=== PATIENT | male | born 1960 | race Caucasian/White ===

== ENCOUNTER → 2016-07-13 | Outpatient (CLI) | payer BC ==
--- NOTE | 2016-07-13 14:36 | XR ---
EXAMINATION TYPE: XR chest 2V DATE OF EXAM: 07/13/2016 2:23 PM HISTORY: R07.9 Chest pain. REFERENCE: Previous study dated 07/27/2015. FINDINGS: The heart is mildly prominent. The lungs are clear. Pleural spaces are clear. IMPRESSION: MILD CARDIOMEGALY.
== END | disposition home or self-care (01) ==
LOC: RADXRMAIN 13:55
PROVIDERS: ATTEND Family Medicine
DX: I51.7 Cardiomegaly (principal)
CPT/HCPCS: 71020

== ENCOUNTER → 2017-09-21 | Outpatient (CLI) | payer OTHER ==
[2017-09-21 18:04] LABS: Albumin 4.1 g/dL (3.5-5.0); Bilirubin, Delta 0.4 mg/dL (0.0-0.2); Calcium 9.4 mg/dL (8.4-10.2); Phosphorus 5.9 mg/dL (2.5-4.5); Total Bilirubin 0.4 mg/dL (0.2-1.3); Total Protein 6.3 g/dL (6.3-8.2)
[2017-09-21 18:35] LABS: Prostate Specific Antigen 3.53 ng/mL (0.00-4.00)
[2017-09-22 01:20] LABS: Hepatitis A Antibody IgM Non-Reactive (Non-Reactive); Hepatitis B Core IgM Non-Reactive (Non-Reactive); Hepatitis B Surface AB- Quant 3.5 mIU/mL; Hepatitis C IgG Antibody Non-Reactive (Non-Reactive)
[2017-09-22 03:07] LABS: Hemoglobin A1C 7.4 % (4.0-6.0)
[2017-09-22 04:00] LABS: EBV-VCA (IgG) >8.0 AI
[2017-09-22 13:49] LABS: HIV AB P24 Non-Reactive (Non-Reactive); HIV P24 AG Non-Reactive (Non-Reactive)
[2017-09-22 16:09] LABS: Hepatits C Virus RNA Not detected (Not detected); Hepatits C Virus RNA, Quant <12 IU/mL (<12); LOG HCV IU/mL <1.08 (<1.08)
== END | disposition home or self-care (01) ==
LOC: LABWHC1 16:58
PROVIDERS: ATTEND Nurse Practitioner Family
DX: N18.4 Chronic kidney disease, stage 4 (severe) (principal); R53.83 Other fatigue; B25.9 Cytomegaloviral disease, unspecified; B27.90 Infectious mononucleosis, unspecified without complication; E83.39 Other disorders of phosphorus metabolism; R74.0 Nonspecific elevation of levels of transaminase and lactic acid dehydrogenase [LDH]; E80.7 Disorder of bilirubin metabolism, unspecified; R74.8 Abnormal levels of other serum enzymes; R97.20 Elevated prostate specific antigen [PSA]; Z11.59 Encounter for screening for other viral diseases; Z11.4 Encounter for screening for human immunodeficiency virus [HIV]; Z11.3 Encounter for screening for infections with a predominantly sexual mode of transmission; Z13.1 Encounter for screening for diabetes mellitus; Z13.228 Encounter for screening for other metabolic disorders; Z11.1 Encounter for screening for respiratory tuberculosis; Z01.83 Encounter for blood typing
CPT/HCPCS: 36415; 80053; 80074; 82248; 82977; 83036; 83615; 84100; 84153; 86644; 86663; 86664; 86665; 86704; 86705; 86706; 86780; 86803; 86900; 86901; 87340; 87390; 87522

== ENCOUNTER → 2017-09-24 | Outpatient (CLI) | payer OTHER ==
--- NOTE | 2017-09-24 14:14 | US ---
EXAMINATION TYPE: US kidneys/renal and bladder DATE OF EXAM: 09/24/2017 COMPARISON: NONE CLINICAL HISTORY: N28.1 RENAL CYST. Renal failure on transplant list. EXAM MEASUREMENTS: Right Kidney: 12.5 x 5.5 x 5.5 cm Left Kidney: 11.3 x 6.5 x 4.5 cm Right Kidney: Cystic area seen upper pole measuring 2.1 x 2.0 x 1.9cm Left Kidney: No hydronephrosis or masses seen Bladder: wnl Bilateral Jets seen: Yes Right renal cyst seen upper pole measuring 2.1 x 2.0 x 1.9 cm. IMPRESSION: 1. Simple appearing Right renal cyst
--- NOTE | 2017-09-24 14:40 | XR ---
EXAMINATION TYPE: XR chest 2V DATE OF EXAM: 09/24/2017 COMPARISON: 07/11/2016 INDICATION: Presurgical clearance TECHNIQUE: Frontal and lateral views of the chest are obtained. FINDINGS: The heart size is normal. The pulmonary vasculature is normal. The lungs are clear. IMPRESSION: 1. No acute pulmonary process.
== END | disposition home or self-care (01) ==
LOC: RADUSWWP 10:02
PROVIDERS: ATTEND Surgery
DX: N28.1 Cyst of kidney, acquired (principal); R91.8 Other nonspecific abnormal finding of lung field; Z00.00 Encounter for general adult medical examination without abnormal findings
CPT/HCPCS: 71046; 76770

== ENCOUNTER → 2018-02-19 | Outpatient (CLI) | payer MEDICARE, OTHER ==
--- NOTE | 2018-02-19 21:05 | MR ---
EXAMINATION TYPE: MR brain and iac wo con DATE OF EXAM: 02/19/2018 COMPARISON: None HISTORY: Sensorineural hearing loss, right ear CONTRAST: Performed utilizing 0 mL intravenous Gadavist gadolinium contrast. TECHNIQUE: Multiplanar, multiecho imaging on a 3.0 Genie magnet is performed through the brain. Stud y is performed within 24 hours of arrival to the hospital. The craniovertebral junction is normal. The pituitary is normal. Diffusion-weighted imaging is performed. No abnormal hyperintensity is present to suggest an acute i ntracranial infarct or acute ischemic change. Signal through the brain is unremarkable. Thin section imaging is performed through the internal auditory canals and cerebellar pontine angles . No cerebellar pontine angle masses are evident. The internal auditory canals appear normal withou t expansion or erosion. Postcontrast imaging was performed. No suspicious enhancement is evident within the internal audito ry canals or the included portions of the brain. Ventricles and sulci are appropriate for the patient age. IMPRESSIONS: 1. No suspicious etiology to account for right sensorineural neural hearing loss. 2. No suspicious internal auditory canal masses or cerebellar pontine angle masses. 3. MRI brain appears unremarkable. 4. There are limitations on the examination due to lack of intravenous contrast. Small intracanalicul ar masses may be more difficult to identify
== END ==
LOC: RADMRIMAIN 09:13
PROVIDERS: ATTEND Otolaryngology Otolaryngic Allergy
DX: H90.41 Sensorineural hearing loss, unilateral, right ear, with unrestricted hearing on the contralateral side (principal)
CPT/HCPCS: 70551

== ENCOUNTER → 2018-02-19 | Outpatient (CLI) | payer MEDICARE, OTHER ==
--- NOTE | 2018-02-19 13:49 | XR ---
EXAMINATION TYPE: XR abdomen 1V DATE OF EXAM: 02/19/2018 COMPARISON: None INDICATION: Placement of PD catheter TECHNIQUE: Single view abdomen frontal projection FINDINGS: There is a normal bowel gas pattern. Psoas margins are normal. No organomegaly is present. Peritoneal dialysis catheter is present in the left hemipelvis. IMPRESSION: 1. Peritoneal dialysis catheter left hemipelvis.
== END | disposition home or self-care (01) ==
LOC: RADXRMAIN 09:23
PROVIDERS: ATTEND Internal Medicine
DX: Z49.02 Encounter for fitting and adjustment of peritoneal dialysis catheter (principal)
CPT/HCPCS: 74018

== ENCOUNTER 2018-03-03 10:30 | Inpatient (IN) | payer MEDICARE, OTHER ==
[2018-03-03] MEDS ORDERED: ASPIRIN 325 MG TAB ONE (15:02)
[2018-03-03] MEDS ORDERED: ASPIRIN 325 MG TAB PO STA (15:13)
[2018-03-03] MEDS ORDERED: NITROGLYCERIN SL TABS 0.4 MG TAB SUBLINGUAL PRN (15:13)
[2018-03-03] MEDS ORDERED: ALPRAZolam 0.25 MG TAB PO PRN (15:13)
[2018-03-03] MEDS ORDERED: ATORVASTATIN 80 MG TAB PO STA (15:13)
[2018-03-03] MEDS ORDERED: ALPRAZolam 0.5 MG TAB PO PRN (15:13)
[2018-03-03] MEDS ORDERED: NITROGLYCERIN-D5W PMX 50 MG in DEXTROSE/WATER 1 250ML.BAG IV SCH (15:15)
[2018-03-03] MEDS: SODIUM CHLORIDE 0.9% 1,000 ML in EMPTY BAG 1 BAG IV ONE ×2 (15:24→22:00)
[2018-03-03] MEDS ORDERED: HYDROmorphone 1 MG/ML 1 ML SYRINGE IVP STA (15:35)
[2018-03-03] MEDS ORDERED: hydrALAZINE HCL 20 MG/ML 1 ML VIAL IVP STA (15:35)
[2018-03-03] MEDS ORDERED: HYDROmorphone 1 MG/ML 1 ML SYRINGE ONE ×2 (15:38→19:51)
[2018-03-03] MEDS ORDERED: hydrALAZINE HCL 20 MG/ML 1 ML VIAL ONE (15:38)
[2018-03-03] MEDS ORDERED: HEPARIN SODIUM 1,000 UN/ML (10ML VL) ONE (18:04)
[2018-03-03] MEDS ORDERED: VERAPAMIL 2.5 MG/ML 2 ML AMP ONE (18:04)
[2018-03-03] MEDS ORDERED: LIDOCAINE 1% INJ 10MG/ML (20 ML MDV) ONE (18:04)
[2018-03-03] MEDS ORDERED: MIDAZOLAM 2 MG/2 ML VIAL IVP ONE (18:34)
[2018-03-03] MEDS ORDERED: LIDOCAINE 1% INJ 10MG/ML (20 ML MDV) SQ ONE (18:34)
[2018-03-03] MEDS: NITROGLYCERIN 1000MCG/10ML SYRINGE INTRACORON ONE ×2 (18:52→19:27)
[2018-03-03] MEDS ORDERED: IOPAMIDOL-370 125ML BTL INJ ONE (18:59)
[2018-03-03] MEDS ORDERED: IOPAMIDOL-370 50ML BTL INJ ONE (19:04)
[2018-03-03] MEDS ORDERED: BIVALIRUDIN BOLUS 250 MG/50 ML IV ONE (19:08)
[2018-03-03] MEDS ORDERED: BIVALIRUDIN 250 MG in SODIUM CHLORIDE 0.9% 50 ML IV ONE (19:09)
[2018-03-03] MEDS ORDERED: CLOPIDOGREL 75 MG TAB ONE (19:24)
[2018-03-03] MEDS ORDERED: CLOPIDOGREL 75 MG TAB PO ONE (19:27)
[2018-03-03] MEDS ORDERED: IOPAMIDOL-370 125ML BTL INTRATHECA ONE (19:41)
[2018-03-03] MEDS ORDERED: MAG HYDROX/AL HYDROX/SIMETH 30 ML CUP PO PRN (19:47)
[2018-03-03] MEDS ORDERED: RX INFO: IV CONTRAST WAS GIVEN 1 EACH MISC MISCELLANE PRN (19:47)
[2018-03-03] MEDS ORDERED: ATROPINE SULFATE 0.1 MG/ML 10ML SYRINGE IV PRN (19:47)
[2018-03-03] MEDS ORDERED: ZOLPIDEM 5 MG TAB PO PRN (19:47)
[2018-03-03] MEDS ORDERED: HYDROmorphone 1 MG/ML 1 ML SYRINGE IVP ONE (19:52)
[2018-03-03] MEDS ORDERED: SODIUM CHLORIDE 0.9% 1,000 ML IV SCH ×2 (20:00→22:00)
[2018-03-03 20:17] LABS: Glucose,Whole Blood 258 mg/dL (75-99)
--- NOTE | 2018-03-03 20:31 | CC ---
CARDIAC CATHETERIZATION REPORT DATE OF SERVICE: 03/03/2018 PERFORMING PHYSICIAN: Andry Bowie MD, drupal programmer. PROCEDURES PERFORMED: 1. Selective left coronary angiogram. 2. Non-selective right coronary artery angiogram. 3. Aortic root angiogram. 4. Left heart catheterization. 5. Successful stenting of the first obtuse marginal branch of the circumflex using a 3.5 x 15 mm Xience drug-eluting stent with reduction of stenosis from 99% to 0%. INDICATION: This is a pleasant 57-year-old gentleman with hypertension, dyslipidemia, end-stage renal disease, on peritoneal dialysis, who presented to [facility] with chest discomfort and was diagnosed with acute [id number] myocardial infarction. He was seen by Dr. Penelope Kemp and a heart catheterization was advised. APPROACH: Right common femoral artery. COMPLICATIONS: None. LEVEL OF SEDATION: Moderate. Sedation length of 60 minutes. PROCEDURE DESCRIPTION: After obtaining informed consent, the patient was brought to the cardiac laboratory apparatus glass grinder. The right common femoral artery was cannulated using micropuncture technique. The micropuncture wire passed easily. Then I placed a 6-Liberian sheath in the right common femoral artery. After that I did selective left coronary angiogram using JL4 catheters. Selective right coronary angiogram was attempted using JR4, Toni Guerra, and Amplatzer I, and I was unable to engage the right coronary artery. Then I did aortic root angiogram and I noticed that the RCA was occluded from the ostium and filled by collaterals from the left coronary system. After that I intervened on the RCA and the left circumflex. Please see separate paragraph for that. SELECTIVE CORONARY ANGIOGRAM: 1. The right coronary artery is chronically occluded by the ostium and filled by collaterals from the left coronary system. 2. The left main is short and almost non . 3. The left circumflex is a large-caliber vessel. It is a dominant vessel. The proximal circumflex is normal and gives rise to a large first OM branch which appeared to have a lesion in the proximal portion in the range of 99%. The mid circumflex and distal circumflex are angiographically normal. 4. LAD. The proximal LAD has a lesion that appeared to be in the range of 50%. This is by the bifurcation of the first diagonal branch, which appeared to have an intermediate lesion in the range of 60% to 70%. The mid LAD has another lesion in the range of 50%. LAD distally appeared to have another lesion in the range of 50% as well. HEMODYNAMICS: The left ventricular end-diastolic pressure was 20 mmHg without significant gradient across the aortic valve. AORTIC ROOT ANGIOGRAM: The aortic root angiogram was performed in the MALLOY projection and using a power injection. The aortic root appeared to be angiographically normal. The RCA seems to be occluded by the ostium and filled by collaterals from the left coronary system. PERCUTANEOUS CORONARY INTERVENTION OF THE LEFT CIRCUMFLEX: Anticoagulation was initiated using Angiomax. Subsequently I took a JL4 with a short tip. The left circumflex was engaged. A Whisper wire was used to wire the left circumflex and I used a run-through wire for anchoring. After that I did balloon angioplasty using 3.0 x 12 mm balloon before I deployed a 3.5 x 15 mm Xience drug- eluting stent where the stent was positioned under fluoroscopy guidance and deployed under its nominal pressure. The following angiogram showed good angiographic results and the procedure was completed without any complication. CONCLUSION: 1. Chronic total occlusion of the right coronary artery which fills by collaterals from the left coronary system. 2. Critical disease involving the first obtuse marginal branch of the left circumflex. 3. Intermediate disease involving the LAD system. 4. Successful stenting of the OM1 using 3.5 x mm Xience drug-eluting stent with good angiographic results. POST-PROCEDURE MANAGEMENT: 1. Medical treatment. 2. Follow up with the patient. MMODL / IJN: [id number] /
[2018-03-03] MEDS ORDERED: DIALYSIS DEX IP SCH (23:30)
[2018-03-04] MEDS ORDERED: DIALYSIS (PERIT 2.5%) 2,500 ML 62.5 G/2,500 ML BAG INTRAPERIT SCH
[2018-03-04] MEDS: METOPROLOL TARTRATE 25 MG TAB PO SCH ×3 (00:24→21:06)
[2018-03-04 00:31] LABS: Glucose,Whole Blood 268 mg/dL (75-99)
[2018-03-04] MEDS: INSULIN ASPART 100 UNIT/ML 1 ML 10 ML VIAL SQ SCH ×5 (00:31→21:16)
[2018-03-04] MEDS: [UNRECOGNIZED DRUG - REMARK] IP SCH ×3 (00:36→12:27)
[2018-03-04] MEDS: INSULIN DETEMIR 100 UNIT/ML 10 ML VIAL SQ SCH ×2 (01:36→21:15)
[2018-03-04 07:20] LABS: Glucose,Whole Blood 165 mg/dL (75-99)
[2018-03-04 11:00] VITALS: BMI 35.5
[2018-03-04 11:04] LABS: Calcium 8.9 mg/dL (8.4-10.2); Potassium 4.2 mmol/L (3.5-5.1)
--- NOTE | 2018-03-04 12:02 | CONS ---
CONSULTATION REASON FOR CONSULT: End-stage renal disease. HISTORY OF PRESENT ILLNESS: The patient is a 57-year-old male who was brought in from [facility] for cardiac catheterization. He presented to the hospital with back pain. He had some chest discomfort and ruled in for non ST elevation OH. The cardiac catheterization was done last night and patient had stenting of his obtuse marginal branch of circumflex. He is currently doing well. He denies any chest pains. The patient has been volume overloaded. He received IV fluids post catheterization for just 4 hours. PAST MEDICAL HISTORY: End-stage renal disease on peritoneal dialysis, hypertension, CKD mineral bone disorder, anemia of chronic disease, gastroesophageal reflux disease, type 2 diabetes, hyperlipidemia. PAST SURGICAL HISTORY: PD catheter placement, PermCath placement and removal for hemodialysis, colonoscopy, right eye vitrectomy, cardiac catheterization, cholecystectomy. MEDICATIONS: Medications at home include PhosLo, Zyloprim, Lasix insulin, Norvasc, multivitamins. ALLERGIES: Allergies include CODEINE, KEFLEX, MORPHINE. SOCIAL HISTORY: Negative for smoking, drug abuse or alcohol abuse. PHYSICAL EXAMINATION: On examination, patient is comfortable, awake, alert, oriented x3. He is not in any acute distress. Blood pressure is 143/73, heart rate 76 per minute. He is afebrile. EXAMINATION OF THE HEART: S1, S2. EXAMINATION OF THE LUNGS: Bilateral breath sounds are heard. Abdomen is soft, nontender. Examination of the lower extremities shows edema 2+ bilaterally. LOGISTICS OPERATIONS MANAGER exam is grossly intact. LABS: Recent labs are not available as patient came in last night. Labs are pending from today. ASSESSMENT: 1. End-stage renal disease, on peritoneal dialysis. We will maintain patient on 2.5% solution alternating with 4.25% solution q.6 hours. We do have the conversion kit to be able to adjust for the different type of dialysis catheter that patient has, which is different from the usual for catheter. 2. Volume overload. We will try to increase UF with peritoneal dialysis and change to 4.25% solution alternating with 2.5% solutions. 3. Status post non ST elevation myocardial infarction, status post cardiac cath and coronary artery stenting, currently doing well. 4. Type 2 diabetes. 5. Hypertension, currently controlled. PLAN: Maintain patient on PD. Continue off of IV fluids. Check phosphorus, CBC, BMP. Thank you for this consultation. We will continue to follow the patient with you during his hospitalization. LUL / BISIN: [id number] /
[2018-03-04] MEDS: ASPIRIN 325 MG TAB PO SCH (12:13)
--- NOTE | 2018-03-04 12:35 | P.HPIM ---
History of Present Illness H&P Date: 03/04/18 Chief Complaint: Non-ST elevation CO. This is a 57-year-old male one of Dr. Mckeon with a previous medical history significant for hypertension and hypertensive cardio vascular disease with left ventricular hypertrophy, history of CAD, chronic diastolic heart failure, end-stage renal disease on peritoneal dialysis after he has failed hemodialysis since September due to uncontrolled hypertension, patient has been recently on peritoneal dialysis and he has been struggling with increased swelling in both lower extremities as he is not ultrafiltrating with the dialysate due to his uncontrolled diabetes, patient presented to the emergency department at [facility] with increased fluid and wait for about 6 kg and increased shortness of breath associated with increased chest pain radiating to the neck down both shoulders he was admitted to intensive care unit after he was found to have a troponin of 3 BNP was elevated at greater than 5000,+3 edema both lower extremities peritoneal dialysis fluid appears to be clear he was started on IV heparin and IV nitroglycerin drip was seen in consultation by cardiology subsequently was transferred to [facility] for left heart catheterization where he was found to have 99% stenosis of the first marginal branch off the LCx and moderate disease of the LAD and underwent successful stenting of the obtuse marginal branch #1 with drug-eluting stent and he was admitted to the ICU and he was seen today in the intensive care unit his pain a lot. He denies any chest pain is less short of breath is less swollen in both lower extremities he has no nausea or vomiting at this point in time he was transferred to telemetry unit. Review of Systems Constitutional: Denies anorexia, Denies chronic headaches, Denies lethargy, Denies malaise, Denies weakness Eyes: denies blurred vision, denies bulging eye, denies decreased vision Ears: deny: decreased hearing Ears, nose, mouth and throat: Denies dysphagia, Denies sore throat, Denies vertigo Cardiovascular: Reports chest pain, Reports decreased exercise tolerance, Reports dyspnea on exertion, Reports shortness of breath, Denies lightheadedness , Denies rapid heart beat, Denies syncope Respiratory: Reports congestion, Reports cough with sputum, Denies home oxygen, Denies snoring, Denies wheezing Gastrointestinal: Reports abdominal pain, Reports bloating, Reports change in bowel habits, Reports nausea, Denies heartburn, Denies melena, Denies vomiting Genitourinary: Denies dysuria Musculoskeletal: Denies myalgias Musculoskeletal: left: foot swelling, bilateral: ankle swelling, absent: ankle pain, ankle stiffness, elbow pain, elbow stiffness, elbow swelling, foot pain, foot stiffness, hand pain, hand stiffness, hand swelling, hip pain, hip stiffness, hip swelling, knee pain, knee stiffness, knee swelling, shoulder pain , shoulder stiffness, shoulder swelling, wrist pain, wrist stiffness, wrist swelling Integumentary: Reports pruritus, Denies rash Neurological: Denies numbness, Denies weakness Psychiatric: Denies anxiety, Denies depression Endocrine: Denies fatigue, Denies weight change Past Medical History Past Medical History: Coronary Artery Disease (CAD), Diabetes Mellitus, Dialysis , Eye Disorder, GERD/Reflux, Hyperlipidemia, Hypertension, Myocardial Infarction (CO), Myocardial Infarction (non Q-wave), Osteoarthritis (OA), Renal Disease, Syncope Additional Past Medical History / Comment(s): NEUROPATHY, per old medcial hx ulcer age 17, sinus problems History of Any Multi-Drug Resistant Organisms: None Reported Past Surgical History: No Surgical Hx Reported, Heart Catheterization With Stent Additional Past Surgical History / Comment(s): RT EYE VITRECTOMY february 2017 S AGO AT [facility], COLONOSCOPY-POLYPS BENIGN, THRYOID NEEDLE ASPIRATION-NEG, LT LEG SX"HAD A cyst REMOVED", tilt table test in past. DEC 2016 LEFT ARM FISTULA , PD catheter placement. 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 DENIES ANY THOUGHTS OF HARMING HIMSELF OR OTHERS,DOES'NT FEEL HOPELESS BUT RATHER HEPLESS. Smoking Status: Former smoker Past Alcohol Use History: None Reported Additional Past Alcohol Use History / Comment(s): STARTED SMOKING AT AGE 12 WORKED UP TO ALMOST A PPD THEN QUIT 20 YEARS AGO Past Drug Use History: None Reported - Past Family History Father Family Medical History: Cancer (Father from brain cancer.), Hyperlipidemia Additional Family Medical History / Comment(s): ? BRAIN CANCER Mother Family Medical History: Diabetes Mellitus, Osteoarthritis (OA) Additional Family Medical History / Comment(s): DJD. MOM IS STILL ALIVE AT AGE 80 Sister(s) Family Medical History: Diabetes Mellitus (Patient has one sister with diabetes. ) Brother(s) Family Medical History: Diabetes Mellitus (One of his brother has diabetes.) Additional Family Medical History / Comment(s): Patient has 4 kids no major medical problems. Medications and Allergies Home Medications Medication Instructions Recorded Confirmed Type Pregabalin [Lyrica] 50 mg PO BID 07/25/15 03/03/18 History Furosemide [Lasix] 80 mg PO BID 03/29/17 03/03/18 History Insulin Glargine [Lantus] 40 units SQ DAILY 03/29/17 03/03/18 History amLODIPine [Norvasc] 5 mg PO BID 03/29/17 03/03/18 History Allopurinol [Zyloprim] 100 mg PO DAILY 03/03/18 03/03/18 History Ascorbic Acid/Multivit-Min 1,000 mg PO DAILY 03/03/18 03/03/18 History [Emergen-C 1,000 mg Packet] Calcium Acetate [Phoslo] 667 mg PO TID-W/MEALS 03/03/18 03/03/18 History Dialysis (Peritonl) Dex 2.5% 2,500 ml TID 03/03/18 03/03/18 History [Delflex with 2.5% Dextrose] Insulin Aspart [NovoLOG See Protocol SQ TID-W/MEALS 03/03/18 03/03/18 History (formulary)] Allergies Allergy/AdvReac Type Severity Reaction Status Date / Time morphine Allergy Confusion Verified 03/03/18 20:20 codeine AdvReac Hallucinati Verified 03/03/18 20:20 ons All antibiotics except Keflex Allergy Unknown Uncoded 04/19/17 11:03 Childhood Physical Exam Vitals: Vital Signs Temp Pulse Pulse Resp BP BP Pulse Ox 03/04/18 07:00 76 13 143/73 03/04/18 06:00 84 20 140/76 03/04/18 05:59 98.8 F 83 16 143/73 96 03/04/18 05:00 98.8 F 80 20 162/95 95 03/04/18 04:00 98.4 F 71 12 156/85 96 03/04/18 03:31 16 01/11/19 03:00 74 12 159/93 97 03/04/18 02:00 85 13 169/89 96 03/04/18 01:00 98.4 F 76 16 136/77 95 03/04/18 00:00 16 136/77 96 03/03/18 23:00 12 144/75 96 03/03/18 22:00 82 21 145/80 154/79 95 03/03/18 21:30 18 158/83 96 03/03/18 21:00 80 14 132/87 136/77 95 03/03/18 20:45 18 132/87 96 03/03/18 20:30 16 133/76 99 03/03/18 20:15 16 135/78 94 L 03/03/18 20:12 81 17 91 L 03/03/18 20:00 98.2 F 16 132/82 95 03/03/18 16:16 125/64 03/03/18 15:46 76 18 155/75 99 03/03/18 15:15 77 18 157/74 99 03/03/18 14:46 78 18 171/77 96 Intake and Output 03/03/18 03/04/18 03/04/18 22:59 06:59 14:59 Intake Total 69.7 300 504 Balance 69.7 300 504 Intake: IV 69.7 Intake, IV Titration 300 Amount Sodium Chloride 0.9% 1, 300 000 ml @ 75 mls/hr IV . [id number] [facility] Rx#:[id number] Oral 504 Other: Weight 103 kg 103 kg 103 kg - Constitutional General appearance: no acute distress, obese - EENT Eyes: anicteric sclerae, EOMI, PERRLA, no ptosis, no scleral icterus, normal appearance ENT: hard of hearing, NA/AT, normal oropharynx, no thrush Ears: bilateral: normal - Neck Neck: no lymphadenopathy, normal ROM, no rigidity, no stridor, no thyromegaly Carotids: bilateral: upstroke normal Thyroid: bilateral: normal size - Respiratory Respiratory: bilateral: diminished, negative: dullness, rales, rhonchi, wheezing , prolonged expiration, prolonged inspiration - Cardiovascular Rhythm: regular Heart sounds: normal: S1, S2 Abnormal Heart Sounds: systolic murmur - Gastrointestinal General gastrointestinal: normal bowel sounds, soft, no splenomegaly, tenderness (PD catheter in place.), no umbilical hernia, no ventral hernia - Integumentary Integumentary: normal, normal turgor - Neurologic Neurologic: CNII-XII intact - Musculoskeletal Musculoskeletal: gait normal, strength equal bilaterally - Psychiatric Psychiatric: A&O x's 3, appropriate affect, intact judgment & insight Results CBC & Chem 7: 03/04/18 04:58 Labs: Abnormal Lab Results - Last 24 Hours (Table) 03/03/18 03/04/18 03/04/18 Range/Units 20:05 00:20 04:58 BUN 86 H (9-20) mg/dL Creatinine 5.16 H (0.66-1.25) mg/dL Glucose 175 H (74-99) mg/dL POC Glucose (mg/dL) 258 H 268 H (75-99) mg/dL 03/04/18 Range/Units 07:09 BUN (9-20) mg/dL Creatinine (0.66-1.25) mg/dL Glucose (74-99) mg/dL POC Glucose (mg/dL) 165 H (75-99) mg/dL Thrombosis Risk Factor Assmnt - DVT/VTE Prophylaxis DVT/VTE Prophylaxis: Mechanical Prophylaxis ordered - Choose All That Apply Each Factor Represents 1 point: Acute CO, Age 41-60 years, Swollen legs (current ) Other Risk Factors: Yes Thrombosis Risk Factor Assessment Total Risk Factor Score: 3 Thrombosis Risk Factor Assessment Level: Moderate Risk Assessment and Plan Assessment: Assessment and plan: 1. Non-ST elevation CO post left heart catheterization with PCI of the office marginal branch. Continue aspirin 325 mg orally once every day, Plavix 75 mg orally once every day, Lopressor 25 mg orally twice every day, patient will need to start Lipitor 80 mg orally once every day. Cardiology is following. 2. Diabetes mellitus type 2. Continue patient on Levemir 40 units at bedtime along with a sliding scale insulin. 3. End-stage renal disease on peritoneal dialysis. Continue with PD exchange. 4. Diabetic polyneuropathy. Continue Lyrica 50 mg orally twice every day. 5. Hypertension and hypertensive cardio vascular disease. Continue Lopressor 25 mg orally twice every day. 6. History of restless leg syndrome. Stable at this time. 7. History of gout. Continue allopurinol 100 mg orally once every day. 8. DVT prophylaxis. Bilateral knee-high RODRIGO hose encourage ambulation. 9. GI prophylaxis. Continue with Protonix 40 mg orally once every day. 10. Patient is full code. 11. Admitted to inpatient. Estimate length of stay 2 midnights.
[2018-03-04 12:36] LABS: Glucose,Whole Blood 138 mg/dL (75-99)
[2018-03-04] MEDS: CALCIUM ACETATE 667 MG CAP PO SCH ×2 (13:01→18:30)
--- NOTE | 2018-03-04 13:02 | PN ---
PROGRESS NOTE Joel is a 57-year-old gentleman who was admitted to hospital with non ST-segment elevation HI. Underwent cardiac catheterization, angioplasty of OM branch. This morning, patient is feeling better. Denies chest pain or difficulty in breathing. Chest exam reveals good air entry bilaterally. Heart exam reveals first and second heart sounds. No gallop. Abdomen is soft. Examination of extremities did not reveal any edema. Right groin is free of bleeding, bruit, hematoma. The patient is currently on aspirin, Plavix, Lopressor. ASSESSMENT: 1. Non ST-segment elevation myocardial infarction, status post catheterization and angioplasty. 2. End-stage renal disease on peritoneal dialysis. PLAN: Patient is doing well. Patient will continue current medications. Hopefully home tomorrow. MMODL / IJN: [id number] /
[2018-03-04] MEDS ORDERED: MD COMMUNICATION TO PHARMACY 1 EACH MISC PO PRN (13:22)
[2018-03-04] MEDS: NITROGLYCERIN SL TABS 0.4 MG TAB SUBLINGUAL PRN ×4 (13:50→15:57)
[2018-03-04] MEDS: FUROSEMIDE 20 MG TAB PO SCH (16:10)
[2018-03-04] MEDS: [UNRECOGNIZED DRUG - OTHER] MISCELLANE SCH (18:20)
[2018-03-04] MEDS: amLODIPine 5 MG TAB PO SCH (21:06)
[2018-03-04] MEDS: PREGABALIN 50 MG CAP PO SCH (21:06)
[2018-03-04] MEDS: CLOPIDOGREL 75 MG TAB PO SCH (21:07)
[2018-03-04 21:18] LABS: Glucose,Whole Blood 295 mg/dL (75-99)
[2018-03-05] MEDS ORDERED: DIALYSIS DEX IP SCH
[2018-03-05] MEDS: [UNRECOGNIZED DRUG - OTHER] MISCELLANE SCH ×2 (01:12→12:36)
[2018-03-05 06:15] LABS: Basophils # (A) 0.1 k/uL (0-0.2); Basophils % (A) 1 %; Eosinophils # (A) 0.6 k/uL (0-0.7); Eosinophils % (A) 6 %; HCT 27.3 % (39.0-53.0); HGB 9.2 gm/dL (13.0-17.5); Lymphocytes % (A) 10 %; MCH 29.7 pg (25.0-35.0); MCHC 33.9 g/dL (31.0-37.0); MCV 87.7 fL (80.0-100.0); Mean Platelet Volume 7.3; Monocytes # (A) 0.6 k/uL (0-1.0); Monocytes % (A) 6 %; Neutrophils # (A) 7.8 k/uL (1.3-7.7); Neutrophils % (A) 76 %; Platelet Count 250 k/uL (150-450); RBC 3.11 m/uL (4.30-5.90); WBC 10.3 k/uL (3.8-10.6)
[2018-03-05 06:32] LABS: Albumin 3.4 g/dL (3.5-5.0); Calcium 8.9 mg/dL (8.4-10.2); Magnesium 2.5 mg/dL (1.6-2.3); Phosphorus 8.9 mg/dL (2.5-4.5); Potassium 3.9 mmol/L (3.5-5.1); Total Bilirubin 0.4 mg/dL (0.2-1.3); Total Protein 6.1 g/dL (6.3-8.2)
[2018-03-05] MEDS: [UNRECOGNIZED DRUG - OTHER] MISCELLANE SCH (06:33)
[2018-03-05 06:49] LABS: Glucose,Whole Blood 143 mg/dL (75-99)
[2018-03-05] MEDS: CALCIUM ACETATE 667 MG CAP PO SCH ×2 (07:13→12:38)
[2018-03-05] MEDS: INSULIN ASPART 100 UNIT/ML 1 ML 10 ML VIAL SQ SCH ×2 (07:14→12:32)
[2018-03-05] MEDS: amLODIPine 5 MG TAB PO SCH (08:33)
[2018-03-05] MEDS: CLOPIDOGREL 75 MG TAB PO SCH (08:33)
[2018-03-05] MEDS: ASPIRIN 325 MG TAB PO SCH (08:33)
[2018-03-05] MEDS: PREGABALIN 50 MG CAP PO SCH (08:34)
[2018-03-05] MEDS: FUROSEMIDE 20 MG TAB PO SCH (08:34)
[2018-03-05] MEDS: METOPROLOL TARTRATE 25 MG TAB PO SCH (08:34)
[2018-03-05] MEDS ORDERED: ALLOPURINOL 100 MG TAB PO SCH (09:00)
--- NOTE | 2018-03-05 10:01 | P.PN ---
Subjective Patient is seen in follow-up for end-stage renal disease. He is maintained on peritoneal dialysis. Patient had an acute myocardial infarction for which he underwent cardiac catheterization with stent placement to the circumflex yesterday. Edema is improving. No issues with peritoneal dialysis. No active chest pain or shortness of breath. Vital signs are stable. General: The patient appeared well nourished and normally developed. HEENT: Head exam is unremarkable. Neck is without jugular venous distension. LUNGS: Lungs are clear to auscultation and percussion. Breath sounds decreased. HEART: Rate and Rhythm are regular. First and second heart sounds normal. No murmurs, rubs or gallops. ABDOMEN: Abdominal exam reveals normal bowel sounds. Non-tender and non- distended. No evidence of peritonitis. EXTREMITITES: 1+ edema. Objective - Vital Signs Vital signs: Vital Signs Temp 97.9 F 03/05/18 08:00 Pulse 75 03/05/18 08:00 Resp 16 03/05/18 08:00 BP 142/71 03/05/18 08:00 Pulse Ox 95 03/05/18 08:00 Intake & Output 03/04/18 03/05/18 03/05/18 18:59 06:59 18:59 Intake Total 1304 480 Output Total 100 Balance 1204 480 Weight 103 kg 100 kg Intake: Oral 1304 480 Output: Urine 100 - Labs CBC & Chem 7: 03/05/18 05:50 03/05/18 05:50 Labs: Abnormal Lab Results - Last 24 Hours (Table) 03/04/18 03/04/18 03/04/18 Range/Units 04:58 12:25 21:07 RBC (4.30-5.90) m/uL Hgb (13.0-17.5) gm/dL Hct (39.0-53.0) % Neutrophils # (1.3-7.7) k/uL Sodium (137-145) mmol/L Chloride (98-107) mmol/L BUN 86 H (9-20) mg/dL Creatinine 5.16 H (0.66-1.25) mg/dL Glucose 175 H (74-99) mg/dL POC Glucose (mg/dL) 138 H 295 H (75-99) mg/dL Phosphorus (2.5-4.5) mg/dL Magnesium (1.6-2.3) mg/dL Alkaline Phosphatase (38-126) U/L Total Protein (6.3-8.2) g/dL Albumin (3.5-5.0) g/dL 03/05/18 03/05/18 03/05/18 Range/Units 05:50 05:50 06:37 RBC 3.11 L (4.30-5.90) m/uL Hgb 9.2 L (13.0-17.5) gm/dL Hct 27.3 L (39.0-53.0) % Neutrophils # 7.8 H (1.3-7.7) k/uL Sodium 135 L (137-145) mmol/L Chloride 96 L (98-107) mmol/L BUN 83 H (9-20) mg/dL Creatinine 7.40 H* (0.66-1.25) mg/dL Glucose 140 H (74-99) mg/dL POC Glucose (mg/dL) 143 H (75-99) mg/dL Phosphorus 8.9 H (2.5-4.5) mg/dL Magnesium 2.5 H (1.6-2.3) mg/dL Alkaline Phosphatase 129 H (38-126) U/L Total Protein 6.1 L (6.3-8.2) g/dL Albumin 3.4 L (3.5-5.0) g/dL Assessment and Plan Plan: Assessment: 1. End-stage renal disease maintained on peritoneal dialysis. 2. Acute OK status post cardiac catheterization with stent to the circumflex in March 04. 3. Volume overload. 4. Insulin-dependent diabetes mellitus. 5. Anemia of chronic kidney disease. 6. Hypertension with chronic kidney disease. Controlled. 7. Chronic kidney disease mineral bone disease maintained on PhosLo. Plan: Continue current PD exchanges alternating 2.5% and 4.25% solution. Advised tight blood sugar control. Stable to be discharged home from nephrology standpoint.
--- NOTE | 2018-03-05 10:14 | P.DS ---
Providers Date of admission: 03/03/18 14:33 Expected date of discharge: 03/05/18 Attending physician: Wayne Maxwell Consults: 03/03/18 19:47 Consult Physician Routine Consulting Provider: [facility] Consult Reason/Comments: Post Interventional patient Do you want consulting provider notified?: Already Contacted 03/04/18 03:42 Consult Physician Urgent Consulting Provider: Janine Nguyen Consult Reason/Comments: CAPD/Fluids Do you want consulting provider notified?: Yes Primary care physician: Ten Mckeon [facility] Course: This is a 57-year-old male one of Dr. Mckeon with a previous medical history significant for hypertension and hypertensive cardio vascular disease with left ventricular hypertrophy, history of CAD, chronic diastolic heart failure, end-stage renal disease on peritoneal dialysis after he has failed hemodialysis since September due to uncontrolled hypertension, patient has been recently on peritoneal dialysis and he has been struggling with increased swelling in both lower extremities as he is not ultrafiltrating with the dialysate due to his uncontrolled diabetes, patient presented to the emergency department at [facility] with increased fluid and wait for about 6 kg and increased shortness of breath associated with increased chest pain radiating to the neck down both shoulders he was admitted to intensive care unit after he was found to have a troponin of 3 BNP was elevated at greater than 5000,+3 edema both lower extremities peritoneal dialysis fluid appears to be clear he was started on IV heparin and IV nitroglycerin drip was seen in consultation by cardiology subsequently was transferred to [facility] for left heart catheterization where he was found to have 99% stenosis of the first marginal branch off the LCx and moderate disease of the LAD and underwent successful stenting of the obtuse marginal branch #1 with drug-eluting stent and he was admitted to the ICU and he was seen today in the intensive care unit his pain a lot. He denies any chest pain is less short of breath is less swollen in both lower extremities he has no nausea or vomiting at this point in time he was transferred to telemetry unit. 03/05: Patient denies any chest pain at this time but states he did have episode of chest pain during the night which was relieved with Xanax. Patient is normally on Ativan and is requesting that his Ativan be switched to Xanax which will be done and patient given a seven-day supply. Otherwise no new complaints. Patient states that his last hemoglobin A1c was quite high maybe at 12. He is to follow-up with Dr. Reno as an outpatient. We will continue same insulins at discharge. The patient has been cleared by cardiology for discharge home. Discharge diagnoses: 1. Non-ST elevation [place] post left heart catheterization with PCI of the obtuse marginal branch. 2. Diabetes mellitus type 2. 3. End-stage renal disease on peritoneal dialysis. 4. Diabetic polyneuropathy. 5. Hypertension and hypertensive cardio vascular disease. 6. History of restless leg syndrome. 7. History of gout, chronic without exacerbation. Discharge plan: Home. Impression and plan of care have been directed as dictated by the signing physician. Katelyn Wesley nurse practitioner acting as scribe for signing physician. Patient Condition at Discharge: Good Plan - Discharge Summary New Discharge Prescriptions: New amLODIPine [Norvasc] 5 mg PO BID #60 tab Aspirin EC [Ecotrin Low Dose] 81 mg PO DAILY #30 tablet. Clopidogrel [Plavix] 75 mg PO DAILY #30 tab Metoprolol Tartrate [Lopressor] 25 mg PO BID #60 tab Nitroglycerin Sl Tabs [Nitrostat] 0.4 mg SUBLINGUAL Q5M PRN #25 tab PRN Reason: Chest Pain ALPRAZolam [Xanax] 0.5 mg PO BID #14 tab Atorvastatin [Lipitor] 80 mg PO HS #30 tab Continue Pregabalin [Lyrica] 50 mg PO BID Furosemide [Lasix] 80 mg PO BID Insulin Glargine [Lantus] 40 units SQ DAILY Calcium Acetate [PhosLo] 667 mg PO TID-W/MEALS Allopurinol [Zyloprim] 100 mg PO DAILY Ascorbic Acid/Multivit-Min [Emergen-C 1,000 mg Packet] 1,000 mg PO DAILY Dialysis (Peritonl) Dex 2.5% [Delflex with 2.5% Dextrose] 2,500 ml TID Insulin Aspart [NovoLOG (formulary)] See Protocol SQ TID-W/MEALS #0 Discontinued amLODIPine [Norvasc] 5 mg PO BID Discharge Medication List Pregabalin [Lyrica] 50 mg PO BID 07/25/15 [History] Furosemide [Lasix] 80 mg PO BID 03/29/17 [History] Insulin Glargine [Lantus] 40 units SQ DAILY 03/29/17 [History] Allopurinol [Zyloprim] 100 mg PO DAILY 03/03/18 [History] Ascorbic Acid/Multivit-Min [Emergen-C 1,000 mg Packet] 1,000 mg PO DAILY [History] Calcium Acetate [PhosLo] 667 mg PO TID-W/MEALS 03/03/18 [History] Dialysis (Peritonl) Dex 2.5% [Delflex with 2.5% Dextrose] 2,500 ml TID 03/03/18 [History] ALPRAZolam [Xanax] 0.5 mg PO BID #14 tab 03/05/18 [Rx] Aspirin EC [Ecotrin Low Dose] 81 mg PO DAILY #30 tablet. 03/05/18 [Rx] Atorvastatin [Lipitor] 80 mg PO HS #30 tab 03/05/18 [Rx] Clopidogrel [Plavix] 75 mg PO DAILY #30 tab 03/05/18 [Rx] Insulin Aspart [NovoLOG (formulary)] See Protocol SQ TID-W/MEALS #0 03/05/18 [Rx ] Metoprolol Tartrate [Lopressor] 25 mg PO BID #60 tab 03/05/18 [Rx] Nitroglycerin Sl Tabs [Nitrostat] 0.4 mg SUBLINGUAL Q5M PRN #25 tab 03/05/18 [Rx ] amLODIPine [Norvasc] 5 mg PO BID #60 tab 03/05/18 [Rx] Follow up Appointment(s)/Referral(s): Romeo Lima MD [REFERRING] - 1 Week Ten Mckeon DO [Primary Care Provider] - 1 Week Luci Kemp MD [STAFF PHYSICIAN] - 1 Week Discharge Disposition: HOME SELF-CARE
[2018-03-05 12:38] LABS: Glucose,Whole Blood 222 mg/dL (75-99)
--- NOTE | 2018-03-05 12:42 | PN ---
PROGRESS NOTE A 57-year-old gentleman who was admitted to the hospital with non ST-segment elevation [place] and underwent cardiac catheterization and angioplasty of OM branch. Doing well and is free of cardiac symptoms. Yesterday, he had an episode of chest pain that seemed to respond to Xanax. EKG did not reveal any ischemic changes and since that time, he has been doing well, ambulating without any problems. On exam, patient is comfortable at rest. Vital signs are stable. Chest exam reveals good air entry bilaterally. Heart exam reveals first and second heart sounds. No gallop. No murmur. Exam of the extremities did not reveal any edema. Peripheral pulses are felt. Labs show a BUN of 83, creatinine is 7.4, hemoglobin is 9.2. ASSESSMENT: 1. Non ST-segment elevation myocardial infarction, status post catheterization and angioplasty. 2. End-stage renal disease on peritoneal dialysis. PLAN: Patient is doing well. His chest discomfort yesterday seemed atypical, probably noncardiac. EKG did not reveal any ischemic changes. If anything, the EKG that he had during chest pain looked better than his earlier EKG. He is on aspirin, Norvasc, Plavix, Lopressor, and atorvastatin 80 mg, which we should continue. He is stable to be discharged home and will be followed up in our office. MMODL / IJN: [id number] /
[2018-03-05 14:44] VITALS: BP 132/75; PULSE 72; RESP 15; TEMP 98.3
== END 2018-03-05 14:50 | disposition home or self-care (01) | DRG 246 ==
LOC: 3SCARD 14:33 → 2SICU 18:40
PROVIDERS: ADMIT Internal Medicine; ATTEND Internal Medicine
PROC: B2151ZZ Fluoroscopy of Left Heart using Low Osmolar Contrast (ICD-10-PCS; 2018-03-03)
PROC: B3101ZZ Fluoroscopy of Thoracic Aorta using Low Osmolar Contrast (ICD-10-PCS; 2018-03-03)
PROC: 027034Z Dilation of Coronary Artery, One Artery with Drug-eluting Intraluminal Device, Percutaneous Approach (ICD-10-PCS; principal; 2018-03-03 18:10)
PROC: 4A023N7 Measurement of Cardiac Sampling and Pressure, Left Heart, Percutaneous Approach (ICD-10-PCS; 2018-03-03 18:10)
PROC: B2111ZZ Fluoroscopy of Multiple Coronary Arteries using Low Osmolar Contrast (ICD-10-PCS; 2018-03-03 18:10)
DX: I21.4 Non-ST elevation (NSTEMI) myocardial infarction (principal); N18.6 End stage renal disease; I50.32 Chronic diastolic (congestive) heart failure; I13.2 Hypertensive heart and chronic kidney disease with heart failure and with stage 5 chronic kidney disease, or end stage renal disease; I25.10 Atherosclerotic heart disease of native coronary artery without angina pectoris; E11.42 Type 2 diabetes mellitus with diabetic polyneuropathy; E11.22 Type 2 diabetes mellitus with diabetic chronic kidney disease; G25.81 Restless legs syndrome; D63.1 Anemia in chronic kidney disease; E78.5 Hyperlipidemia, unspecified; F32.9 Major depressive disorder, single episode, unspecified; F41.9 Anxiety disorder, unspecified; K21.9 Gastro-esophageal reflux disease without esophagitis; M1A.9XX0 Chronic gout, unspecified, without tophus (tophi); E83.9 Disorder of mineral metabolism, unspecified; I25.2 Old myocardial infarction; Z79.4 Long term (current) use of insulin; Z79.82 Long term (current) use of aspirin; Z79.899 Other long term (current) drug therapy; Z80.8 Family history of malignant neoplasm of other organs or systems; Z83.3 Family history of diabetes mellitus; Z87.891 Personal history of nicotine dependence; Z95.5 Presence of coronary angioplasty implant and graft; Z99.2 Dependence on renal dialysis; Z90.49 Acquired absence of other specified parts of digestive tract
CPT/HCPCS: 80048; 80053; 83735; 84100; 85025; 93005; 93458; 93567; C1874

== ENCOUNTER 2018-03-24 14:05 | Inpatient (IN) | payer MEDICARE, OTHER ==
[2018-03-24] MEDS ORDERED: SODIUM CHLORIDE 0.9% 1,000 ML IV STA (14:36)
--- NOTE | 2018-03-24 14:43 | ED ---
Weakness HPI - General Source: patient, RN notes reviewed, old records reviewed Mode of arrival: EMS Limitations: no limitations <Mya Hardin - Last Filed: 03/24/18 16:18> <Agus Quiros - Last Filed: 03/24/18 17:09> - General Chief complaint: Weakness Stated complaint: Hypotension Time Seen by Provider: 03/24/18 14:06 - History of Present Illness Initial comments: Patient is a 57-year-old male presents for his arms today for a syncopal episode after receiving dialysis. Patient reports that he was sitting in a chair and passed out. His blood pressure was extremely low, 70/40. Upon EMS arrival it had increased to 120/60. Patient started to become more alert. Patient states that he has recently returned to using his fistula for dialysis. Previously using peritoneal dialysis. He follows with Dr. Posey and Dr. Butterfield. He recently also had an N STEMI and cardiac catheterization earlier this month. He denies associated chest pain at this time, but he feels general malaise. He states that when the sandbox occurred he did have some slight chest pain.. He states he just feels somewhat weak and dizzy. He was nauseated and was given Zofran via EMS. (Mya Hardin) - Related Data Home Medications Medication Instructions Recorded Confirmed Calcium Acetate [PhosLo] 667 mg PO BID 03/03/18 03/24/18 Insulin Glargine,Hum.rec.anlog 35 unit SQ DAILY 03/24/18 03/24/18 [Basaglar Kwikpen U-100] amLODIPine [Norvasc] 5 mg PO DAILY 03/24/18 03/24/18 Previous Rx's Medication Instructions Recorded ALPRAZolam [Xanax] 0.5 mg PO BID #14 tab 03/05/18 Aspirin EC [Ecotrin Low Dose] 81 mg PO DAILY #30 tablet. 03/05/18 Atorvastatin [Lipitor] 80 mg PO HS #30 tab 03/05/18 Clopidogrel [Plavix] 75 mg PO DAILY #30 tab 03/05/18 Metoprolol Tartrate [Lopressor] 25 mg PO BID #60 tab 03/05/18 Nitroglycerin Sl Tabs [Nitrostat] 0.4 mg SUBLINGUAL Q5M PRN #25 tab 03/05/18 Allergies Allergy/AdvReac Type Severity Reaction Status Date / Time morphine Allergy Confusion Verified 03/24/18 14:17 codeine AdvReac Hallucinati Verified 03/24/18 14:17 ons All antibiotics except Keflex Allergy Unknown Uncoded 03/24/18 14:17 Childhood Review of Systems ROS Other: All systems not noted in ROS Statement are negative. <Mya Hardin - Last Filed: 03/24/18 16:18> ROS Other: All systems not noted in ROS Statement are negative. <Agus Quiros - Last Filed: 03/24/18 17:09> ROS Statement: Those systems with pertinent positive or pertinent negative responses have been documented in the HPI. Past Medical History Past Medical History: Coronary Artery Disease (CAD), Diabetes Mellitus, Dialysis , Eye Disorder, GERD/Reflux, Hyperlipidemia, Hypertension, Myocardial Infarction ([place]), Myocardial Infarction (non Q-wave), Osteoarthritis (OA), Renal Disease, Syncope Additional Past Medical History / Comment(s): NEUROPATHY, per old medcial hx ulcer age 17, sinus problems History of Any Multi-Drug Resistant Organisms: None Reported Past Surgical History: Heart Catheterization With Stent Additional Past Surgical History / Comment(s): RT EYE VITRECTOMY february 2017 S AGO AT [place], COLONOSCOPY-POLYPS BENIGN, THRYOID NEEDLE ASPIRATION-NEG, LT LEG SX"HAD A cyst REMOVED", tilt table test in past. DEC 2016 LEFT ARM FISTULA , PD catheter placement. Past Anesthesia/Blood Transfusion Reactions: Postoperative Nausea & Vomiting ( PONV) Past Psychological History: Anxiety, Depression Smoking Status: Former smoker Past Alcohol Use History: None Reported Past Drug Use History: None Reported - Past Family History Father Family Medical History: Cancer (Father from brain cancer.), Hyperlipidemia Additional Family Medical History / Comment(s): ? BRAIN CANCER Mother Family Medical History: Diabetes Mellitus, Osteoarthritis (OA) Additional Family Medical History / Comment(s): DJD. MOM IS STILL ALIVE AT AGE 80 Sister(s) Family Medical History: Diabetes Mellitus (Patient has one sister with diabetes. ) Brother(s) Family Medical History: Diabetes Mellitus (One of his brother has diabetes.) Additional Family Medical History / Comment(s): Patient has 4 kids no major medical problems. <Mya Hardin - Last Filed: 03/24/18 16:18> General Exam Limitations: no limitations General appearance: alert, in no apparent distress Head exam: Present: atraumatic, normocephalic, normal inspection Eye exam: Present: normal appearance, PERRL, EOMI. Absent: scleral icterus, conjunctival injection, periorbital swelling ENT exam: Present: normal exam, mucous membranes moist Neck exam: Present: normal inspection. Absent: tenderness, meningismus, lymphadenopathy Respiratory exam: Present: normal lung sounds bilaterally. Absent: respiratory distress, wheezes, rales, rhonchi, stridor Cardiovascular Exam: Present: regular rate, normal rhythm, normal heart sounds. Absent: systolic murmur, diastolic murmur, rubs, gallop, clicks GI/Abdominal exam: Present: soft, normal bowel sounds. Absent: distended, tenderness, guarding, rebound, rigid Extremities exam: Present: normal inspection, full ROM, normal capillary refill. Absent: tenderness, pedal edema, joint swelling, calf tenderness Back exam: Present: normal inspection Neurological exam: Present: alert, oriented X3, CN II-XII intact <Mya Hardin - Last Filed: 03/24/18 16:18> <Agus Quiros - Last Filed: 03/24/18 17:09> - General Exam Comments Initial Comments: Alert and oriented 57-year-old male. (Mya Hardin) Course <Mya Hardin - Last Filed: 03/24/18 16:18> <Agus Quiros - Last Filed: 03/24/18 17:09> Vital Signs 03/24/18 14:13 Temperature 98.1 F Pulse Rate 65 Respiratory 16 Rate Blood Pressure 141/78 O2 Sat by Pulse 98 Oximetry - Reevaluation(s) Reevaluation #1: 03/24/18 16:19 Patient is reevaluated and informed of results. Inform Patient of concern for an STEMI. I did discuss that this could be chronic and related to dialysis Patient. Patient states he still feels general malaise. (Mya Hardin) Medical Decision Making - Lab Data Result diagrams: 03/24/18 14:15 03/24/18 14:15 - Radiology Data Radiology results: report reviewed <Mya Hardin - Last Filed: 03/24/18 16:18> - Lab Data Result diagrams: 03/24/18 14:15 03/24/18 14:15 <Agus Quiros - Last Filed: 03/24/18 17:09> - Medical Decision Making Patient is a 57-year-old male presents emergency Department with complaints of malaise and syncopal episode after receiving dialysis. He recently changed from using peritoneal dialysis to using his fistula for his left arm. Patient states he felt very dizzy weak and lightheaded. Patient EKG was reviewed. And lab work was reviewed. Troponin is slightly elevated. 0.063. No previous troponins to compare. Patient did have a cardiac cath earlier this month. At this time Patient received a small amount of fluid feel slightly better but still complains of general malaise and fatigue and slight discomfort. I discussed the Mayur the Patient for repeat troponins. (Mya Hardin) Patient was reevaluated by myself, Dr. Quiros. Patient states he has pain all over. Patient amiss to having some chest discomfort earlier and possibly some dyspnea. Patient and family was under the impression that patient did pass out earlier. Case was discussed in detail with Dr. Christian, who will admit covering for Dr. Mckeon. He does request computed tomography scan onset of VQ scan and states that she would not be a problem with dialysis. He does recommend discussing this with nephrology however. Case was also discussed with Dr. Edmondson who is familiar with this patient. He states patient never actually passed out and only became drowsy and lethargic. Patient did have low blood pressure in the 80s. He thinks Many of patient's symptoms are secondary to him not to his peritoneal dialysis. He states patient overall has been noncompliant. He is comfortable with computed tomography scan and will dialyze patient tomorrow. (Agus Quiros) - Lab Data Lab Results 03/24/18 03/24/18 03/24/18 Range/Units 14:15 14:15 14:15 WBC 13.9 H (3.8-10.6) k/uL RBC 3.47 L (4.30-5.90) m/uL Hgb 10.4 L (13.0-17.5) gm/dL Hct 30.0 L (39.0-53.0) % MCV 86.3 (80.0-100.0) fL MCH 30.1 (25.0-35.0) pg MCHC 34.9 (31.0-37.0) g/dL RDW 13.5 (11.5-15.5) % Plt Count 260 (150-450) k/uL Neutrophils % 86 % Lymphocytes % 7 % Monocytes % 5 % Eosinophils % 1 % Basophils % 0 % Neutrophils # 11.9 H (1.3-7.7) k/uL Lymphocytes # 1.0 (1.0-4.8) k/uL Monocytes # 0.6 (0-1.0) k/uL Eosinophils # 0.2 (0-0.7) k/uL Basophils # 0.1 (0-0.2) k/uL PT (9.0-12.0) sec INR (<1.2) APTT (22.0-30.0) sec Sodium 131 L (137-145) mmol/L Potassium 3.6 (3.5-5.1) mmol/L Chloride 95 L (98-107) mmol/L Carbon Dioxide 27 (22-30) mmol/L Anion Gap 9 mmol/L BUN 31 H (9-20) mg/dL Creatinine 1.94 H (0.66-1.25) mg/dL Est GFR (CKD-EPI)AfAm 43 (>60 ml/min/1.73 sqM) Est GFR (CKD-EPI)NonAf 37 (>60 ml/min/1.73 sqM) Glucose 202 H (74-99) mg/dL Calcium 8.9 (8.4-10.2) mg/dL Magnesium 2.0 (1.6-2.3) mg/dL Total Bilirubin 0.9 (0.2-1.3) mg/dL AST 32 (17-59) U/L ALT 45 (21-72) U/L Alkaline Phosphatase 96 (38-126) U/L Total Creatine Kinase 144 (55-170) U/L CK-MB (CK-2) 5.7 H (0.0-2.4) ng/mL CK-MB (CK-2) Rel Index 4.0 Troponin I 0.063 H* (0.000-0.034) ng/mL Total Protein 6.2 L (6.3-8.2) g/dL Albumin 3.5 (3.5-5.0) g/dL 01/31/19 Range/Units 14:15 WBC (3.8-10.6) k/uL RBC (4.30-5.90) m/uL Hgb (13.0-17.5) gm/dL Hct (39.0-53.0) % MCV (80.0-100.0) fL MCH (25.0-35.0) pg MCHC (31.0-37.0) g/dL RDW (11.5-15.5) % Plt Count (150-450) k/uL Neutrophils % % Lymphocytes % % Monocytes % % Eosinophils % % Basophils % % Neutrophils # (1.3-7.7) k/uL Lymphocytes # (1.0-4.8) k/uL Monocytes # (0-1.0) k/uL Eosinophils # (0-0.7) k/uL Basophils # (0-0.2) k/uL PT 10.1 (9.0-12.0) sec INR 0.9 (<1.2) APTT 21.8 L (22.0-30.0) sec Sodium (137-145) mmol/L Potassium (3.5-5.1) mmol/L Chloride (98-107) mmol/L Carbon Dioxide (22-30) mmol/L Anion Gap mmol/L BUN (9-20) mg/dL Creatinine (0.66-1.25) mg/dL Est GFR (CKD-EPI)AfAm (>60 ml/min/1.73 sqM) Est GFR (CKD-EPI)NonAf (>60 ml/min/1.73 sqM) Glucose (74-99) mg/dL Calcium (8.4-10.2) mg/dL Magnesium (1.6-2.3) mg/dL Total Bilirubin (0.2-1.3) mg/dL AST (17-59) U/L ALT (21-72) U/L Alkaline Phosphatase (38-126) U/L Total Creatine Kinase (55-170) U/L CK-MB (CK-2) (0.0-2.4) ng/mL CK-MB (CK-2) Rel Index Troponin I (0.000-0.034) ng/mL Total Protein (6.3-8.2) g/dL Albumin (3.5-5.0) g/dL - Radiology Data This x-rays negative for any acute process. (Mya Hardin) Disposition Is patient prescribed a controlled substance at d/c from ED?: No Time of Disposition: 16:24 <Mya Hardin - Last Filed: 03/24/18 16:18> <Agus Quiros - Last Filed: 03/24/18 17:09> Clinical Impression: NSTEMI (non-ST elevated myocardial infarction), Syncope, Dialysis patient Disposition: ADMITTED IP TO THIS HOSP Condition: Stable Referrals: Ten Mckeon DO [Primary Care Provider] - 1-2 days
[2018-03-24 15:01] LABS: Basophils # (A) 0.1 k/uL (0-0.2); Basophils % (A) 0 %; Eosinophils # (A) 0.2 k/uL (0-0.7); Eosinophils % (A) 1 %; HGB 10.4 gm/dL (13.0-17.5); Lymphocytes % (A) 7 %; MCH 30.1 pg (25.0-35.0); MCHC 34.9 g/dL (31.0-37.0); MCV 86.3 fL (80.0-100.0); Mean Platelet Volume 6.5; Monocytes # (A) 0.6 k/uL (0-1.0); Monocytes % (A) 5 %; Neutrophils # (A) 11.9 k/uL (1.3-7.7); Neutrophils % (A) 86 %; Platelet Count 260 k/uL (150-450); RBC 3.47 m/uL (4.30-5.90); RDW 13.5 % (11.5-15.5); WBC 13.9 k/uL (3.8-10.6)
[2018-03-24 15:10] LABS: INR 0.9 (<1.2); Partial Thromboplastin Time 21.8 sec (22.0-30.0); Prothrombin Time 10.1 sec (9.0-12.0)
[2018-03-24 15:15] LABS: Albumin 3.5 g/dL (3.5-5.0); Calcium 8.9 mg/dL (8.4-10.2); Potassium 3.6 mmol/L (3.5-5.1); Total Bilirubin 0.9 mg/dL (0.2-1.3); Total Protein 6.2 g/dL (6.3-8.2)
--- NOTE | 2018-03-24 15:15 | XR ---
EXAMINATION TYPE: XR chest 2V DATE OF EXAM: 03/24/2018 COMPARISON: 09/24/2017 INDICATION: Syncope, no other history is provided TECHNIQUE: Frontal and lateral views of the chest are obtained. FINDINGS: The heart size is normal. The pulmonary vasculature is normal. The lungs are clear. IMPRESSION: 1. No acute pulmonary process.
[2018-03-24 15:27] LABS: Creatine Kinase MB 5.7 ng/mL (0.0-2.4)
[2018-03-24 15:28] LABS: Troponin I 0.063 ng/mL (0.000-0.034)
[2018-03-24] MEDS ORDERED: NITROGLYCERIN SL TABS 0.4 MG TAB SUBLINGUAL PRN ×2 (16:25→20:31)
[2018-03-24] MEDS ORDERED: HEPARIN SODIUM,PORCINE 5,000 UNIT/ML 1 ML VIAL IV ONE (16:25)
[2018-03-24] MEDS ORDERED: HEPARIN SOD,PORK IN 0.45% NACL 25,000 UNIT in 0.45% NACL 1 250ML.BAG IV SCH (16:30)
[2018-03-24] MEDS ORDERED: LORazepam 2 MG/ML INJ IV STA (17:39)
--- NOTE | 2018-03-24 17:56 | CT ---
EXAMINATION TYPE: CT angio chest DATE OF EXAM: 03/24/2018 5:40 PM COMPARISON: July 25, 2015 HISTORY: SOB/CHEST PAIN/IRRITATION/PT HAVING DIALYSIS TOMORROW CT DLP: 452.2 mGycm Automated exposure control for dose reduction was used. CONTRAST: CTA scan of the thorax is performed with IV Contrast, patient injected with 100 mL of Isovue 300, pul monary embolism protocol. There are 3-D post processed images.. FINDINGS: The lungs are clear of consolidation. There is no pleural effusion. Heart is enlarged. There is no pe ricardial effusion. There is no mediastinal adenopathy. Thoracic aorta shows no aneurysm or dissection. I see no filling defects in the pulmonary arteries. The upper abdominal soft tissues are unremarkable. There is spurri ng in the thoracic spine. I see no bony destructive process. IMPRESSION: NO EVIDENCE OF PULMONARY EMBOLISM. CARDIOMEGALY. NO SIGNIFICANT CHANGE COMPARED TO OLD EXAM.
[2018-03-24 20:01] LABS: Glucose,Whole Blood 232 mg/dL (75-99)
[2018-03-24 20:44] LABS: Creatine Kinase MB 5.3 ng/mL (0.0-2.4)
[2018-03-24 20:46] LABS: Troponin I 0.078 ng/mL (0.000-0.034)
[2018-03-24] MEDS ORDERED: ATORVASTATIN 80 MG TAB PO SCH (21:00)
[2018-03-24] MEDS: METOPROLOL TARTRATE 25 MG TAB PO SCH (22:56)
[2018-03-24] MEDS: CALCIUM ACETATE 667 MG CAP PO SCH (22:56)
[2018-03-24] MEDS: ALPRAZolam 0.5 MG TAB PO SCH (23:00)
[2018-03-25 00:31] LABS: Cholesterol 212 mg/dL (<200); HDL Cholesterol 42 mg/dL (40-60); Triglycerides 472 mg/dL (<150)
[2018-03-25 02:11] LABS: Glucose,Whole Blood 318 mg/dL (75-99)
[2018-03-25 02:30] LABS: Creatine Kinase MB 5.3 ng/mL (0.0-2.4)
[2018-03-25 02:35] LABS: Troponin I 0.086 ng/mL (0.000-0.034)
[2018-03-25 05:58] LABS: Glucose,Whole Blood 299 mg/dL (75-99)
[2018-03-25] MEDS: CALCIUM ACETATE 667 MG CAP PO SCH (07:03)
--- NOTE | 2018-03-25 08:10 | P.CRDCN ---
History of Present Illness Consult date: 03/25/18 Requesting physician: Cordelia Pantoja Consult reason: sycope Chief complaint: Syncope, lightheadedness History of present illness: This is a 57-year-old gentleman with history of hypertension, hyperlipidemia, diabetes, end-stage renal disease on hemodialysis, he was in the hospital earlier this month underwent angioplasty and stent placement of the first obtuse marginal branch of the circumflex on the by Dr. Hinojosa, he follows with Dr. VC Kemp in the office. Patient was also found to have a chronic total occlusion of the RCA which fills by collaterals from the left system, intermediate disease in the LAD. According to the patient, he had been doing peritoneal dialysis but had not been removing enough fluid and for this reason he was recommended to go into the clinic to have some hemodialysis treatments. Patient states that he went to have his treatment and apparently did fairly well, he went home, states he had a couple episodes of vomiting in general did not feel well at all. He went back to the clinic, with complaints that he felt very dizzy lightheaded. His initial blood pressure there according to the patient was fine, and subsequently as time progressed the pressure dropped down to 60 systolic. Patient does state that he had an episode of syncope. He denies having any chest discomfort, and breathing overall for him has been stable. Blood pressure on arrival here 140/70 with a heart rate in the 70s, 98% on room air. Blood pressure this morning 118/56, heart rate in the 70s, 98% on room air. White blood cell count 13.9, hemoglobin 10.4, platelet count 260. Sodium 131, potassium 3.6, BUN 31 and creatinine 1.9. Troponins 0.06, 0.07, 0.08. Cholesterol 212, triglycerides 472 , HDL 42. At the time of my examination this morning, patient is lying in bed, he had diarrhea stools this morning. Denies any chest discomfort and is breathing overall is stable. Past Medical History Past Medical History: Coronary Artery Disease (CAD), Diabetes Mellitus, Dialysis , Eye Disorder, GERD/Reflux, Hyperlipidemia, Hypertension, Myocardial Infarction ([place]), Myocardial Infarction (non Q-wave), Osteoarthritis (OA), Renal Disease, Syncope Additional Past Medical History / Comment(s): NEUROPATHY, per old medcial hx ulcer age 17, sinus problems, pt stated he is considered legally blind /on disability.hemodialysis tue/thur/sat. Last Myocardial Infarction Date:: 03-03-18, nstemi History of Any Multi-Drug Resistant Organisms: None Reported Past Surgical History: Cholecystectomy, Heart Catheterization With Stent Additional Past Surgical History / Comment(s): RT EYE VITRECTOMY february 2017 S AGO AT [facility], COLONOSCOPY-POLYPS BENIGN, THRYOID NEEDLE ASPIRATION-NEG, LT LEG SX"HAD A cyst REMOVED", tilt table test in past. DEC 2016 LEFT ARM FISTULA , PD catheter placement. Past Anesthesia/Blood Transfusion Reactions: Postoperative Nausea & Vomiting ( PONV) Date of Last Stent Placement:: 03-03-18 Smoking Status: Former smoker - Past Family History Father Family Medical History: Cancer, Hyperlipidemia Additional Family Medical History / Comment(s): ? BRAIN CANCER Mother Family Medical History: Diabetes Mellitus, Osteoarthritis (OA) Additional Family Medical History / Comment(s): DJD. MOM IS STILL ALIVE AT AGE 80 Sister(s) Family Medical History: Diabetes Mellitus Brother(s) Family Medical History: Diabetes Mellitus Additional Family Medical History / Comment(s): Patient has 4 kids no major medical problems. Medications and Allergies Home Medications Medication Instructions Recorded Confirmed Type Calcium Acetate [PhosLo] 667 mg PO BID 03/03/18 03/24/18 History ALPRAZolam [Xanax] 0.5 mg PO BID #14 tab 03/05/18 03/24/18 Rx Aspirin EC [Ecotrin Low Dose] 81 mg PO DAILY #30 tablet. 03/05/18 03/24/18 Rx Atorvastatin [Lipitor] 80 mg PO HS #30 tab 03/05/18 03/24/18 Rx Clopidogrel [Plavix] 75 mg PO DAILY #30 tab 03/05/18 03/24/18 Rx Metoprolol Tartrate [Lopressor] 25 mg PO BID #60 tab 03/05/18 03/24/18 Rx Nitroglycerin Sl Tabs [Nitrostat] 0.4 mg SUBLINGUAL Q5M PRN #25 tab 03/05/18 Rx Insulin Glargine,Hum.rec.anlog 35 unit SQ DAILY 03/24/18 03/24/18 History [June Edward U-100] amLODIPine [Norvasc] 5 mg PO DAILY 03/24/18 03/24/18 History Allergies Allergy/AdvReac Type Severity Reaction Status Date / Time morphine Allergy Confusion Verified 03/24/18 14:17 codeine AdvReac Hallucinati Verified 03/24/18 14:17 ons All antibiotics except Keflex Allergy Unknown Uncoded 03/24/18 14:17 Childhood Physical Exam Vitals: Vital Signs Temp Pulse Pulse Resp BP BP Pulse Ox 03/25/18 04:00 98.2 F 75 18 117/56 98 03/25/18 00:00 98.4 F 70 18 132/62 97 03/24/18 20:00 98.3 F 69 18 134/63 100 03/24/18 17:00 71 15 144/76 03/24/18 16:00 71 16 140/67 03/24/18 15:00 70 18 142/108 03/24/18 14:13 98.1 F 65 16 141/78 98 03/24/18 14:12 141/78 Intake and Output 03/24/18 03/25/18 03/25/18 22:59 06:59 14:59 Intake Total 91 Output Total 2 Balance 89 Intake: Intake, IV Titration 91 Amount Heparin Sod,Pork in 0.45% 91 NaCl 25,000 unit In 0.45 % NaCl 1 250ml.bag @ 10. 31 UNITS/KG/HR 10 mls/hr IV .Q24H [facility] Rx#: [id number] Output: Stool 2 Other: Voiding Method Toilet Toilet Urinal Urinal # Voids 1 3 # Bowel Movements 2 Weight 93.9 kg PHYSICAL EXAMINATION: GENERAL: 57-year-old gentleman in no acute distress at the time of my examination HEENT: Head is atraumatic, normocephalic. Pupils equal, round. Sclera anicteric. Conjunctiva are clear. Mucous membranes of the mouth are moist. Neck is supple. There is no elevated jugular venous pressure. No carotid bruit is heard. HEART EXAMINATION: Heart S1 and S2 systolic murmur is heard. CHEST EXAMINATION: Circumflex clear with mild diminished air entry to the bases bilaterally. ABDOMEN: Soft, nontender. Bowel sounds are heard. No organomegaly noted. EXTREMITIES: 2+ peripheral pulses with 1+ evidence of peripheral edema and no calf tenderness noted. NEUROLOGIC patient is awake, alert and oriented 3. . Results 03/24/18 14:15 03/24/18 14:15 Cardiac Enzymes 03/24/18 03/24/18 03/24/18 Range/Units 14:15 14:15 19:54 AST 32 (17-59) U/L CK-MB (CK-2) 5.7 H 5.3 H (0.0-2.4) ng/mL Troponin I 0.063 H* 0.078 H* (0.000-0.034) ng/mL 03/25/18 Range/Units 01:38 AST (17-59) U/L CK-MB (CK-2) 5.3 H (0.0-2.4) ng/mL Troponin I 0.086 H* (0.000-0.034) ng/mL Coagulation 03/24/18 03/25/18 Range/Units 14:15 01:38 PT 10.1 (9.0-12.0) sec APTT 21.8 L 30.0 (22.0-30.0) sec Lipids 03/24/18 Range/Units 14:15 Triglycerides 472 H (<150) mg/dL Cholesterol 212 H (<200) mg/dL HDL Cholesterol 42 (40-60) mg/dL CBC 03/24/18 Range/Units 14:15 WBC 13.9 H (3.8-10.6) k/uL RBC 3.47 L (4.30-5.90) m/uL Hgb 10.4 L (13.0-17.5) gm/dL Hct 30.0 L (39.0-53.0) % Plt Count 260 (150-450) k/uL Comprehensive Metabolic Panel 03/24/18 Range/Units 14:15 Sodium 131 L (137-145) mmol/L Potassium 3.6 (3.5-5.1) mmol/L Chloride 95 L (98-107) mmol/L Carbon Dioxide 27 (22-30) mmol/L BUN 31 H (9-20) mg/dL Creatinine 1.94 H (0.66-1.25) mg/dL Glucose 202 H (74-99) mg/dL Calcium 8.9 (8.4-10.2) mg/dL AST 32 (17-59) U/L ALT 45 (21-72) U/L Alkaline Phosphatase 96 (38-126) U/L Total Protein 6.2 L (6.3-8.2) g/dL Albumin 3.5 (3.5-5.0) g/dL Current Medications Generic Name Dose Route Start Last Admin Trade Name Freq PRN Reason Stop Dose Admin Alprazolam 0.5 mg 03/24/18 21:00 03/24/18 23:00 Xanax PO Not Given BID [facility] Amlodipine Besylate 5 mg 03/25/18 09:00 Norvasc PO DAILY [facility] Aspirin 81 mg 03/25/18 09:00 Aspirin PO DAILY [facility] Atorvastatin Calcium 80 mg 03/24/18 21:00 03/24/18 22:57 Lipitor PO 80 mg HS [facility]LU[facility] Administration Calcium Acetate 667 mg 03/24/18 21:00 03/25/18 07:03 Phoslo PO 667 mg BID-W/MEALS JLUIS Administration Clopidogrel Bisulfate 75 mg 03/25/18 09:00 Plavix PO DAILY [facility] Sodium Chloride 1,000 mls @ 20 mls/hr 03/24/18 14:36 03/24/18 23:00 Saline 0.9% IV 03/25/18 14:35 20 mls/hr .Q24H [facility] Administration Heparin Sodium/Sodium Chloride 250 mls @ 10 mls/hr 03/24/18 16:30 03/25/18 02 :00 25,000 unit/ Sodium Chloride IV 13.31 units/kg/hr .Q24H [facility] 12.91 mls/hr Titration Protocol 10.31 UNITS/KG/HR Insulin Detemir 35 unit 03/25/18 09:00 Levemir SQ DAILY [facility] Metoprolol Tartrate 25 mg 03/24/18 21:00 03/24/18 22:56 Lopressor PO 25 mg BID JLU[facility] Administration Nitroglycerin 0.4 mg 03/24/18 20:31 Nitrostat SUBLINGUAL Q5M PRN Chest Pain Intake and Output 03/24/18 03/25/18 03/25/18 22:59 06:59 14:59 Intake Total 91 Output Total 2 Balance 89 Intake: Intake, IV Titration 91 Amount Heparin Sod,Pork in 0.45% 91 NaCl 25,000 unit In 0.45 % NaCl 1 250ml.bag @ 10. 31 UNITS/KG/HR 10 mls/hr IV .Q24H [facility] Rx#: [id number] Output: Stool 2 Other: Voiding Method Toilet Toilet Urinal Urinal # Voids 1 3 # Bowel Movements 2 Weight 93.9 kg 03/24/18 14:15 03/24/18 14:15 EKG Interpretations (text) EKG shows a normal sinus rhythm with no acute changes. Assessment and Plan Plan: Assessment and plan #1 episode of dizziness and syncope, likely secondary to hypotension. Blood pressure in the dialysis center 60/40. #2 diabetes #3 end-stage renal disease on hemodialysis #4 hypertension #5 hyperlipidemia #6 coronary artery disease with recent stent placement of the first obtuse marginal branch of the circumflex on the 10th of last month. Patient was also found at that time to have a chronically occluded right coronary artery, intermediate disease of the LAD system. #6 vomiting and diarrhea #7 abnormal troponin, no significant rise and fall pattern, likely secondary to abnormal renal function. Plan We will obtain an echocardiogram with Doppler study. Continue baby aspirin, Lipitor, metoprolol 25 mg one tablet by mouth twice a day. Blood pressure today remaining stable, in the 120 to 1:30 systolic range. Further recommendations to follow. DNP note has been reviewed, I agree with a documented findings and plan of care. Patient was seen and examined.
[2018-03-25] MEDS ORDERED: INSULIN DETEMIR 100 UNIT/ML 10 ML VIAL SQ SCH (09:00)
[2018-03-25] MEDS ORDERED: ASPIRIN 81 MG PO SCH (09:00)
[2018-03-25] MEDS ORDERED: ASPIRIN 325 MG TAB PO SCH (09:00)
[2018-03-25] MEDS ORDERED: amLODIPine 5 MG TAB PO SCH (09:00)
[2018-03-25] MEDS ORDERED: CLOPIDOGREL 75 MG TAB PO SCH (09:00)
[2018-03-25] MEDS: ALPRAZolam 0.5 MG TAB PO SCH (09:34)
[2018-03-25] MEDS: METOPROLOL TARTRATE 25 MG TAB PO SCH (09:34)
--- NOTE | 2018-03-25 09:38 | P.NPCON ---
History of Present Illness - Reason for Consult end stage renal disease - History of Present Illness Reason for consultation: End-stage renal disease History of present illness: Patient is a 57-year-old male seen in renal consultation for end-stage renal disease. He is maintained on peritoneal dialysis as an outpatient. However patient's blood sugars have been running quite high over the last few months ranging from 200 to above 400. Therefore he's been having difficulty doing her tibial dialysis acute changes. According to his he did not to PD exchanges due to not feeling well for about 2 days. I have changed him over to hemodialysis temporarily. He did undergo hemodialysis yesterday. However his blood pressures were low in the systolic 80s to 90s and he was quite lethargic. Therefore he was sent to the hospital. He is currently awake and alert. His blood sugar this morning was 299. Blood pressures are controlled. In fact there is a little bit on the higher side. No vomiting or diarrhea. Denies chest pain or shortness of breath. No significant edema. Vital signs are stable. General: The patient appeared well nourished and normally developed. HEENT: Head exam is unremarkable. Neck is without jugular venous distension. LUNGS: Lungs are clear to auscultation and percussion. Breath sounds decreased. HEART: Rate and Rhythm are regular. First and second heart sounds normal. No murmurs, rubs or gallops. ABDOMEN: Abdominal exam reveals normal bowel sounds. Non-tender and non- distended. No evidence of peritonitis. EXTREMITITES: No clubbing, cyanosis, or edema. Past Medical History Past Medical History: Coronary Artery Disease (CAD), Diabetes Mellitus, Dialysis , Eye Disorder, GERD/Reflux, Hyperlipidemia, Hypertension, Myocardial Infarction ([place]), Myocardial Infarction (non Q-wave), Osteoarthritis (OA), Renal Disease, Syncope Additional Past Medical History / Comment(s): NEUROPATHY, per old medcial hx ulcer age 17, sinus problems, pt stated he is considered legally blind /on disability.hemodialysis tue//sat. Last Myocardial Infarction Date:: 03-03-18, nstemi History of Any Multi-Drug Resistant Organisms: None Reported Past Surgical History: Cholecystectomy, Heart Catheterization With Stent Additional Past Surgical History / Comment(s): RT EYE VITRECTOMY february 2017 S AGO AT [facility], COLONOSCOPY-POLYPS BENIGN, THRYOID NEEDLE ASPIRATION-NEG, LT LEG SX"HAD A cyst REMOVED", tilt table test in past. DEC 2016 LEFT ARM FISTULA , PD catheter placement. Past Anesthesia/Blood Transfusion Reactions: Postoperative Nausea & Vomiting ( PONV) Date of Last Stent Placement:: 03-03-18 Smoking Status: Former smoker - Past Family History Father Family Medical History: Cancer, Hyperlipidemia Additional Family Medical History / Comment(s): ? BRAIN CANCER Mother Family Medical History: Diabetes Mellitus, Osteoarthritis (OA) Additional Family Medical History / Comment(s): DJD. MOM IS STILL ALIVE AT AGE 80 Sister(s) Family Medical History: Diabetes Mellitus Brother(s) Family Medical History: Diabetes Mellitus Additional Family Medical History / Comment(s): Patient has 4 kids no major medical problems. Medications and Allergies Home Medications Medication Instructions Recorded Confirmed Type Calcium Acetate [PhosLo] 667 mg PO BID 03/03/18 03/24/18 History ALPRAZolam [Xanax] 0.5 mg PO BID #14 tab 03/05/18 03/24/18 Rx Aspirin EC [Ecotrin Low Dose] 81 mg PO DAILY #30 tablet.dr 03/05/18 03/24/18 Rx Atorvastatin [Lipitor] 80 mg PO HS #30 tab 03/05/18 03/24/18 Rx Clopidogrel [Plavix] 75 mg PO DAILY #30 tab 03/05/18 03/24/18 Rx Metoprolol Tartrate [Lopressor] 25 mg PO BID #60 tab 03/05/18 03/24/18 Rx Nitroglycerin Sl Tabs [Nitrostat] 0.4 mg SUBLINGUAL Q5M PRN #25 tab 03/05/18 Rx Insulin Glargine,Hum.rec.anlog 35 unit SQ DAILY 03/24/18 03/24/18 History [Basaglar Kwikpen U-100] amLODIPine [Norvasc] 5 mg PO DAILY 03/24/18 03/24/18 History Allergies Allergy/AdvReac Type Severity Reaction Status Date / Time morphine Allergy Confusion Verified 03/24/18 14:17 codeine AdvReac Hallucinati Verified 03/24/18 14:17 ons All antibiotics except Keflex Allergy Unknown Uncoded 03/24/18 14:17 Childhood Physical Exam Vitals: Vital Signs Temp Pulse Pulse Resp BP BP Pulse Ox 03/25/18 08:15 98.3 F 68 22 164/76 03/25/18 04:00 98.2 F 75 18 117/56 98 03/25/18 00:00 98.4 F 70 18 132/62 97 03/24/18 20:00 98.3 F 69 18 134/63 100 03/24/18 17:00 71 15 144/76 03/24/18 16:00 71 16 140/67 03/24/18 15:00 70 18 142/108 03/24/18 14:13 98.1 F 65 16 141/78 98 03/24/18 14:12 141/78 Intake and Output 03/24/18 03/25/18 03/25/18 22:59 06:59 14:59 Intake Total 91 Output Total 2 Balance 89 Intake: Intake, IV Titration 91 Amount Heparin Sod,Pork in 0.45% 91 NaCl 25,000 unit In 0.45 % NaCl 1 250ml.bag @ 10. 31 UNITS/KG/HR 10 mls/hr IV .Q24H [facility] Rx#: [id number] Output: Stool 2 Other: Voiding Method Toilet Toilet Urinal Urinal # Voids 1 3 # Bowel Movements 2 Weight 93.9 kg Results - Lab Results Most recent lab results Calcium 8.9 mg/dL (8.4-10.2) 03/24/18 14:15 Magnesium 2.0 mg/dL (1.6-2.3) 03/24/18 14:15 03/24/18 14:15 03/24/18 14:15 Assessment and Plan Plan: Assessment: 1. End-stage renal disease now maintained on hemodialysis. He has a left upper extremity AV fistula. Peritoneal dialysis currently on hold until blood sugars get better controlled. He is also been having troubles with draining at times, especially when using the cycler. 2. Insulin-dependent diabetes mellitus. His blood sugars have been quite elevated over the last few months. He does follow with mathematical technician Dr. Lima - missed his appointment this week due to not feeling well. 3. Hypertension with chronic kidney disease. Patient was hypotensive yesterday during dialysis which has resolved. 4. Chronic kidney disease mineral bone disease maintained on PhosLo. 5. Anemia of chronic kidney disease. Hemoglobin at goal. 6. Hyponatremia secondary to chronic kidney disease. 7. History of coronary artery disease status post stent placement to the circumflex last month. Plan: He will be maintained on hemodialysis on a Wednesday schedule. Peritoneal dialysis will be currently held until his blood sugars are better controlled. Follow-up echocardiogram results. CTA revealed no evidence of PE. Thank you for the consultation. I will continue to follow the patient with you during his hospital stay.
[2018-03-25] MEDS ORDERED: PREGABALIN 50 MG CAP PO SCH (09:45)
[2018-03-25 11:40] LABS: Glucose,Whole Blood 339 mg/dL (75-99)
[2018-03-25 12:13] VITALS: BP 135/63; TEMP 98.7
[2018-03-25] MEDS ORDERED: INSULIN ASPART 100 UNIT/ML 1 ML 10 ML VIAL SQ SCH (12:30)
[2018-03-25 13:04] VITALS: PULSE 61; RESP 17
--- NOTE | 2018-03-25 13:18 | P.HPIM ---
History of Present Illness H&P Date: 03/24/18 Chief Complaint: Syncope, severe weakness, non-ST VT, CAD post angioplasty recently, end-sta 57-year-old male one of Dr. Mckeon patient was hospitalized recently at [facility] on 03/03/2018 for non-ST VT ended up going to the senior laboratory technician and found to have 1996% blockage of the first marginal branch of the circumflex and moderate disease in the LAD he underwent successful stenting of the obtuse marginal branch with drug-eluting stent. Patient was started on secondary prevention. Patient was switched from CAPD to hemodialysis and was in the dialysis center today when he had syncopal episode shortly after his dialysis done developed to have severe hypotension was not able to get out of bed move or ambulate and had significant change mental status. EMS was called patient was transferred to the emergency department at [facility] surprisingly his troponin was mildly elevated patient was still having symptomatic hypotension. Patient will be admitted to the hospital continue to watch his hemodynamic status repeat his CK with troponin 3. Review of Systems CONSTITUTIONAL: Well-developed no acute respiratory distress. EYES: No icterus sclerae, no conjunctivitis. EARS, NOSE, MOUTH, THROAT, and FACE: No sore throat, lymphadenopathy, carotid bruits or deformity. RESPIRATORY: mild shortness of breath and cough no wheezes. CARDIOVASCULAR: positive mild dyspnea and shortness of breath palpitation and orthopnea. GASTROINTESTINAL: No Abd pain, Nausea or vomiting, no Diarrhea or constipation, No GI Bleed, no distention or masses. GENITOURINARY: Negative for Hematuria or UTI, no kidney stones. INTEGUMENT/BREAST: Negative for any muscular injury with mild osteoarthritis.. HEMATOLOGIC/LYMPHATIC: Negative for bleed or purpura. MUSCULOSKELTAL: Negative for Myalgia or arthralgia. NEURLOGICAL: No LOC, Sz or syncope, blurred vision dizziness or abnormality.. BEHAVIORAL/PSYCH: Negative. ENDOCRINE: Negative. Past Medical History Past Medical History: Coronary Artery Disease (CAD), Diabetes Mellitus, Dialysis , Eye Disorder, GERD/Reflux, Hyperlipidemia, Hypertension, Myocardial Infarction (VT), Myocardial Infarction (non Q-wave), Osteoarthritis (OA), Renal Disease, Syncope Additional Past Medical History / Comment(s): NEUROPATHY, per old medcial hx ulcer age 17, sinus problems History of Any Multi-Drug Resistant Organisms: None Reported Past Surgical History: Heart Catheterization With Stent Additional Past Surgical History / Comment(s): RT EYE VITRECTOMY february 2017 S AGO AT [facility], COLONOSCOPY-POLYPS BENIGN, THRYOID NEEDLE ASPIRATION-NEG, LT LEG SX"HAD A cyst REMOVED", tilt table test in past. DEC 2016 LEFT ARM FISTULA , PD catheter placement. Past Anesthesia/Blood Transfusion Reactions: Postoperative Nausea & Vomiting ( PONV) Past Psychological History: Anxiety, Depression Smoking Status: Former smoker Past Alcohol Use History: None Reported Past Drug Use History: None Reported - Past Family History Father Family Medical History: Cancer (Father from brain cancer.), Hyperlipidemia Additional Family Medical History / Comment(s): ? BRAIN CANCER Mother Family Medical History: Diabetes Mellitus, Osteoarthritis (OA) Additional Family Medical History / Comment(s): DJD. MOM IS STILL ALIVE AT AGE 80 Sister(s) Family Medical History: Diabetes Mellitus (Patient has one sister with diabetes. ) Brother(s) Family Medical History: Diabetes Mellitus (One of his brother has diabetes.) Additional Family Medical History / Comment(s): Patient has 4 kids no major medical problems. Medications and Allergies Home Medications Medication Instructions Recorded Confirmed Type Calcium Acetate [PhosLo] 667 mg PO BID 03/03/18 03/24/18 History ALPRAZolam [Xanax] 0.5 mg PO BID #14 tab 03/05/18 03/24/18 Rx Aspirin EC [Ecotrin Low Dose] 81 mg PO DAILY #30 tablet. 03/05/18 03/24/18 Rx Atorvastatin [Lipitor] 80 mg PO HS #30 tab 03/05/18 03/24/18 Rx Clopidogrel [Plavix] 75 mg PO DAILY #30 tab 03/05/18 03/24/18 Rx Metoprolol Tartrate [Lopressor] 25 mg PO BID #60 tab 03/05/18 03/24/18 Rx Nitroglycerin Sl Tabs [Nitrostat] 0.4 mg SUBLINGUAL Q5M PRN #25 tab 03/05/18 Rx Insulin Glargine,Hum.rec.anlog 35 unit SQ DAILY 03/24/18 03/24/18 History [Basaglar Kwikpen U-100] amLODIPine [Norvasc] 5 mg PO DAILY 03/24/18 03/24/18 History Midodrine [ProAmatine] 5 mg PO DAILY #30 tablet 03/25/18 Rx Pregabalin [Lyrica] 50 mg PO BID cap 03/25/18 Rx Allergies Allergy/AdvReac Type Severity Reaction Status Date / Time morphine Allergy Confusion Verified 03/24/18 14:17 codeine AdvReac Hallucinati Verified 03/24/18 14:17 ons All antibiotics except Keflex Allergy Unknown Uncoded 03/24/18 14:17 Childhood Physical Exam Vitals: Vital Signs Temp Pulse Resp BP Pulse Ox 03/24/18 17:00 71 15 144/76 03/24/18 16:00 71 16 140/67 03/24/18 15:00 70 18 142/108 03/24/18 14:13 98.1 F 65 16 141/78 98 03/24/18 14:12 141/78 Intake and Output 03/24/18 03/24/18 03/24/18 06:59 14:59 22:59 Other: Weight 97 kg General Appearance: Alert, cooperative, no distress, appears stated age. Neck HEENT: Supple, no lymphadenopathy, no thyroid enlargement, no carotid bruits. Lungs: Clear to auscultation without crackles or wheezes no rhonchi, no deformity. Chest Wall: Chest wall normal expansion with deep inspiration no tenderness and no deformity was found on exam, no costochondral pain or discomfort. Heart: Regular rate and rhythm, S1, S2 normal, no murmur, rub or gallop. Back: Symmetric, no curvature, ROM normal, no CVA tenderness. Abdomen: Soft, non-tender, bowel sounds active all four quadrants, no masses, no organomegaly. Extremities: Extremities normal, atraumatic, no cyanosis or edema. Pulses: 2+ and symmetric. Skin: Skin color, texture, tugor normal, no rashes or lesions. Neurologic: Alert oriented x3 cranial nerves II through XII intact, no motor deficit, no abnormal balance or gait. Results CBC & Chem 7: 03/24/18 14:15 03/24/18 14:15 Labs: Abnormal Lab Results - Last 24 Hours (Table) 03/24/18 03/24/18 03/24/18 Range/Units 14:15 14:15 14:15 WBC 13.9 H (3.8-10.6) k/uL RBC 3.47 L (4.30-5.90) m/uL Hgb 10.4 L (13.0-17.5) gm/dL Hct 30.0 L (39.0-53.0) % Neutrophils # 11.9 H (1.3-7.7) k/uL APTT (22.0-30.0) sec Sodium 131 L (137-145) mmol/L Chloride 95 L (98-107) mmol/L BUN 31 H (9-20) mg/dL Creatinine 1.94 H (0.66-1.25) mg/dL Glucose 202 H (74-99) mg/dL POC Glucose (mg/dL) (75-99) mg/dL CK-MB (CK-2) 5.7 H (0.0-2.4) ng/mL Troponin I 0.063 H* (0.000-0.034) ng/mL Total Protein 6.2 L (6.3-8.2) g/dL 03/24/18 03/24/18 Range/Units 14:15 19:59 WBC (3.8-10.6) k/uL RBC (4.30-5.90) m/uL Hgb (13.0-17.5) gm/dL Hct (39.0-53.0) % Neutrophils # (1.3-7.7) k/uL APTT 21.8 L (22.0-30.0) sec Sodium (137-145) mmol/L Chloride (98-107) mmol/L BUN (9-20) mg/dL Creatinine (0.66-1.25) mg/dL Glucose (74-99) mg/dL POC Glucose (mg/dL) 232 H (75-99) mg/dL CK-MB (CK-2) (0.0-2.4) ng/mL Troponin I (0.000-0.034) ng/mL Total Protein (6.3-8.2) g/dL Thrombosis Risk Factor Assmnt - DVT/VTE Prophylaxis DVT/VTE Prophylaxis: Pharmacologic Prophylaxis ordered, Mechanical Prophylaxis ordered Assessment and Plan Plan: 1 symptomatic syncope: Patient was hospitalized will continue to watch his hemodynamic status, continue CK with troponin, continue to watch his blood pressure and gentle hydration at this point. 2 elevated troponin: With recent history of non-ST VT post PCI and stent placement of the office marginal branch, patient be seen cardiology continue secondary prevention if his CK with troponin elevated continue to have symptom with chest pain and increased dyspnea and shortness of breath might require to go to the senior laboratory technician for another heart cath. 3 severe dyspnea and shortness of breath: Most likely cardiac in origin that with his current symptoms patient ended up going for CTA which exclude the possibility of PE at this point. 4 end-stage renal disease: On hemodialysis 3 times a week. 5 hypertension: Continue metoprolol along with amlodipine, patient is more hypotensive shortly after his dialysis may be one of the way is to use midodrine 5 mg in the morning of his dialysis so the blood pressure does not drop down severely after he is done. 6 hyperlipidemia: Patient is on Lipitor 80 mg daily. 7 type 2 diabetes: On insulin continue Levemir 35 units daily along with Accu- Chek with sliding scales coverage. 8 mild arrhythmia: Remain on beta alyssa. 9 anticoagulation: Mostly dual antiplatelet management with aspirin and Plavix. 10 GI prophylaxis: Patient will be on Protonix or Pepcid. 11 DVT prophylaxis: Continue patient on early mobilization and knee-high RODRIGO hose and heparin subcutaneous. CODE STATUS: Full code. Admit patient to inpatient status for 1-2 nights.
--- NOTE | 2018-03-25 13:21 | P.DS ---
Providers Date of admission: 03/24/18 17:07 Attending physician: Cordelia Pantoja Consults: 03/24/18 16:25 Consult Physician Urgent Consulting Provider: Andry Bowie Consult Reason/Comments: nstemi, recent cath Do you want consulting provider notified?: Yes 03/24/18 17:06 Consult Physician Urgent Consulting Provider: Migel Edmondson Consult Reason/Comments: Renal failure Do you want consulting provider notified?: Already Contacted Primary care physician: Ten Mckeon [place] [facility] Course: Chief Complaint: Syncope, severe weakness, non-ST WA, CAD post angioplasty recently, end-sta 57-year-old male one of Dr. Mckeon patient was hospitalized recently at [facility] on 03/03/2018 for non-ST WA ended up going to the center medical and lab director and found to have 1996% blockage of the first marginal branch of the circumflex and moderate disease in the LAD he underwent successful stenting of the obtuse marginal branch with drug-eluting stent. Patient was started on secondary prevention. Patient was switched from CAPD to hemodialysis and was in the dialysis center today when he had syncopal episode shortly after his dialysis done developed to have severe hypotension was not able to get out of bed move or ambulate and had significant change mental status. EMS was called patient was transferred to the emergency department at [facility] surprisingly his troponin was mildly elevated patient was still having symptomatic hypotension. Patient will be admitted to the hospital continue to watch his hemodynamic status repeat his CK with troponin 3. Physical examination: Vitals: Vital Signs Temp Pulse Resp BP Pulse Ox 03/24/18 17:00 71 15 144/76 03/24/18 16:00 71 16 140/67 03/24/18 15:00 70 18 142/108 03/24/18 14:13 98.1 F 65 16 141/78 98 03/24/18 14:12 141/78 Intake and Output 03/24/18 03/24/18 03/24/18 06:59 14:59 22:59 Other: Weight 97 kg General Appearance: Alert, cooperative, no distress, appears stated age. Neck HEENT: Supple, no lymphadenopathy, no thyroid enlargement, no carotid bruits. Lungs: Clear to auscultation without crackles or wheezes no rhonchi, no deformity. Chest Wall: Chest wall normal expansion with deep inspiration no tenderness and no deformity was found on exam, no costochondral pain or discomfort. Heart: Regular rate and rhythm, S1, S2 normal, no murmur, rub or gallop. Back: Symmetric, no curvature, ROM normal, no CVA tenderness. Abdomen: Soft, non-tender, bowel sounds active all four quadrants, no masses, no organomegaly. Extremities: Extremities normal, atraumatic, no cyanosis or edema. Pulses: 2+ and symmetric. Skin: Skin color, texture, tugor normal, no rashes or lesions. Neurologic: Alert oriented x3 cranial nerves II through XII intact, no motor deficit, no abnormal balance or gait. Plan: 1 symptomatic syncope: Patient was hospitalized will continue to watch his hemodynamic status, continue CK with troponin, continue to watch his blood pressure and gentle hydration at this point. 2 elevated troponin: With recent history of non-ST WA post PCI and stent placement of the office marginal branch, patient be seen cardiology continue secondary prevention if his CK with troponin elevated continue to have symptom with chest pain and increased dyspnea and shortness of breath might require to go to the center medical and lab director for another heart cath. 3 severe dyspnea and shortness of breath: Most likely cardiac in origin that with his current symptoms patient ended up going for CTA which exclude the possibility of PE at this point. 4 end-stage renal disease: On hemodialysis 3 times a week. 5 hypertension: Continue metoprolol along with amlodipine, patient is more hypotensive shortly after his dialysis may be one of the way is to use midodrine 5 mg in the morning of his dialysis so the blood pressure does not drop down severely after he is done. 6 hyperlipidemia: Patient is on Lipitor 80 mg daily. 7 type 2 diabetes: On insulin continue Levemir 35 units daily along with Accu- Chek with sliding scales coverage. 8 mild arrhythmia: Remain on beta alyssa. 9 anticoagulation: Mostly dual antiplatelet management with aspirin and Plavix. 10 GI prophylaxis: Patient will be on Protonix or Pepcid. 11 DVT prophylaxis: Continue patient on early mobilization and knee-high RODRIGO hose and heparin subcutaneous. Patient was clear by cardiology no need for any further intervention his troponin still mildly elevated from the WA from his last admission mostly mild troponin leak at this point. Had long discussion with the patient if agreeable by nephrology will keep him on midodrine 5 mg 1 hour before his dialysis every time to avoid having any severe hypotension and orthostatic change secondary to the dehydration take place after his dialysis. Patient saw walking and ambulating daily be discharged home today if is more stable. Patient Condition at Discharge: Stable Plan - Discharge Summary Discharge Rx Participant: No New Discharge Prescriptions: New Midodrine [ProAmatine] 5 mg PO DAILY #30 tablet Pregabalin [Lyrica] 50 mg PO BID cap Continue Calcium Acetate [PhosLo] 667 mg PO BID Aspirin EC [Ecotrin Low Dose] 81 mg PO DAILY #30 tablet. Clopidogrel [Plavix] 75 mg PO DAILY #30 tab Metoprolol Tartrate [Lopressor] 25 mg PO BID #60 tab Nitroglycerin Sl Tabs [Nitrostat] 0.4 mg SUBLINGUAL Q5M PRN #25 tab PRN Reason: Chest Pain ALPRAZolam [Xanax] 0.5 mg PO BID #14 tab Atorvastatin [Lipitor] 80 mg PO HS #30 tab Insulin Glargine,Hum.rec.anlog [Basaglar Kwikpen U-100] 35 unit SQ DAILY amLODIPine [Norvasc] 5 mg PO DAILY Discharge Medication List Calcium Acetate [PhosLo] 667 mg PO BID 03/03/18 [History] ALPRAZolam [Xanax] 0.5 mg PO BID #14 tab 03/05/18 [Rx] Aspirin EC [Ecotrin Low Dose] 81 mg PO DAILY #30 tablet. 03/05/18 [Rx] Atorvastatin [Lipitor] 80 mg PO HS #30 tab 03/05/18 [Rx] Clopidogrel [Plavix] 75 mg PO DAILY #30 tab 03/05/18 [Rx] Metoprolol Tartrate [Lopressor] 25 mg PO BID #60 tab 03/05/18 [Rx] Nitroglycerin Sl Tabs [Nitrostat] 0.4 mg SUBLINGUAL Q5M PRN #25 tab 03/05/18 [Rx ] Insulin Glargine,Hum.rec.anlog [Basaglar Kwikpen U-100] 35 unit SQ DAILY [History] amLODIPine [Norvasc] 5 mg PO DAILY 03/24/18 [History] Midodrine [ProAmatine] 5 mg PO DAILY #30 tablet 03/25/18 [Rx] Pregabalin [Lyrica] 50 mg PO BID cap 03/25/18 [Rx] Follow up Appointment(s)/Referral(s): Andry Bowie MD [STAFF PHYSICIAN] - 03/29/18 1:45 pm Ten Mckeon DO [Primary Care Provider] - 1 Week Patient Instructions/Handouts: Chest Pain (DC), Hypotension (DC) Discharge Disposition: HOME SELF-CARE
[2018-03-25 18:19] LABS: Hemoglobin A1C 14.2 % (4.0-6.0)
--- NOTE | 2018-03-26 09:13 | ECHOF ---
Referral Reason:syncope MEASUREMENTS -------- HEIGHT: 170.2 cm WEIGHT: 93.9 kg BP: 164/76 IVSd: 1.3 cm (0.6 - 1.1) LVIDd: 4.4 cm (3.9 - 5.3) LVPWd: 1.4 cm (0.6 - 1.1) IVSs: 2.0 cm LVIDs: 2.5 cm LVPWs: 1.9 cm LA Diam: 4.0 cm (2.7 - 3.8) RVIDd: 3.5 cm (< 3.3) LAESV Index (A-L): 26.74 ml/m Ao Diam: 3.5 cm (2.0 - 3.7) AV Cusp: 2.0 cm (1.5 - 2.6) EPSS: 1.2 cm MV E Bryn: 0.98 m/s MV DecT: 305 ms MV A Bryn: 1.13 m/s MV E/A Ratio: 0.87 AV maxP.36 mmHg AV meanP.87 mmHg MV EF SLOPE: 56.75 mm/s (70 - 150) MV EXCURSION: 16.66 mm (> 18.000) FINDINGS -------- Sinus rhythm. This was a technically adequate study. The left ventricular size is normal. There is moderate concentric left ventricular hypertrophy. O verall left ventricular systolic function is normal with, an EF between 60 - 65 %. The right ventricle is mildly enlarged. Normal LA size by volume 22+/-6 ml/m2. The right atrium is normal in size. The aortic valve is trileaflet and appears structurally normal. Peak/mean gradient across the valve is 13.36mmHg / 6.87mmHg. The mitral valve is normal. The tricuspid valve appears structurally normal. There is no pulmonic regurgitation present. The aortic root size is normal. Normal inferior vena cava with normal inspiratory collapse consistent with estimated right atrial pre ssure of 5 mmHg. There is no pericardial effusion. CONCLUSIONS -------- 1. Sinus rhythm. 2. This was a technically adequate study. 3. The left ventricular size is normal. 4. There is moderate concentric left ventricular hypertrophy. 5. Overall left ventricular systolic function is normal with, an EF between 60 - 65 %. 6. The right ventricle is mildly enlarged. 7. Normal LA size by volume 22+/-6 ml/m2. 8. The right atrium is normal in size. 9. The aortic valve is trileaflet and appears structurally normal. 10. Peak/mean gradient across the valve is 13.36mmHg / 6.87mmHg. 11. The mitral valve is normal. 12. The tricuspid valve appears structurally normal. 13. There is no pulmonic regurgitation present. 14. The aortic root size is normal. 15. Normal inferior vena cava with normal inspiratory collapse consistent with estimated right atrial pressure of 5 mmHg. 16. There is no pericardial effusion. DATABASE SPECIALIST: Windy Ragland RDCS
== END 2018-03-25 16:25 | disposition home or self-care (01) | DRG 314 ==
LOC: EC 14:05 → 3SCARD 17:07
PROVIDERS: ADMIT Family Medicine; ATTEND Family Medicine
DX: I95.9 Hypotension, unspecified (principal); N18.6 End stage renal disease; E87.1 Hypo-osmolality and hyponatremia; I12.0 Hypertensive chronic kidney disease with stage 5 chronic kidney disease or end stage renal disease; E11.40 Type 2 diabetes mellitus with diabetic neuropathy, unspecified; E11.22 Type 2 diabetes mellitus with diabetic chronic kidney disease; I25.82 Chronic total occlusion of coronary artery; R55 Syncope and collapse; I25.10 Atherosclerotic heart disease of native coronary artery without angina pectoris; R11.2 Nausea with vomiting, unspecified; R19.7 Diarrhea, unspecified; D63.1 Anemia in chronic kidney disease; E78.5 Hyperlipidemia, unspecified; F32.9 Major depressive disorder, single episode, unspecified; F41.9 Anxiety disorder, unspecified; H54.8 Legal blindness, as defined in USA; I25.2 Old myocardial infarction; K21.9 Gastro-esophageal reflux disease without esophagitis; M19.90 Unspecified osteoarthritis, unspecified site; I49.9 Cardiac arrhythmia, unspecified; R77.9 Abnormality of plasma protein, unspecified; E83.89 Other disorders of mineral metabolism; Z79.02 Long term (current) use of antithrombotics/antiplatelets; Z79.4 Long term (current) use of insulin; Z79.82 Long term (current) use of aspirin; Z79.899 Other long term (current) drug therapy; Z99.2 Dependence on renal dialysis; Z95.5 Presence of coronary angioplasty implant and graft; Z91.19 Patient's noncompliance with other medical treatment and regimen; Z87.891 Personal history of nicotine dependence; Z86.010 Personal history of colon polyps; Z88.1 Allergy status to other antibiotic agents; Z88.5 Allergy status to narcotic agent; Z80.8 Family history of malignant neoplasm of other organs or systems; Z83.3 Family history of diabetes mellitus; Z82.61 Family history of arthritis
CPT/HCPCS: 36415; 71046; 71275; 80053; 80061; 82550; 82553; 83036; 83735; 84484; 85025; 85610; 85730; 93005; 93306; 96365; 96366; 96375; 96376; 99285

== ENCOUNTER 2018-08-05 18:59 | Observation (INO) | payer MEDICARE, OTHER ==
[2018-08-05] MEDS ORDERED: ASPIRIN 81 MG PO STA (19:37)
--- NOTE | 2018-08-05 19:40 | ED ---
General Adult HPI - General Chief complaint: Chest Pain Stated complaint: Chest pain Time Seen by Provider: 08/05/18 19:06 Source: EMS Mode of arrival: EMS Limitations: no limitations - History of Present Illness Initial comments: Dictation was produced using [employer] dictation software. please excuse any grammatical, word or spelling errors. Chief Complaint: 57-year-old male past medical history of end-stage renal disease, coronary artery disease, hypertension and myocardial infarction presents with chest pain. History of Present Illness: Patient is a 57-year-old man with multiple comorbidities. He was at dialysis today when he began experiencing crushing left substernal chest pain. Patient states he normally gets cramps during his dialysis however at this time and felt a little different. They adjusted his dialysis however did not gisselle symptoms. Patient is concerned he was having a heart attack. He recently had a heart attack in February he has history of some that placement. Patient is asymptomatic at this time. Denies any associated diaphoresis or radiation to back or shoulders. The ROS documented in this emergency department record has been reviewed and confirmed by me. Those systems with pertinent positive or negative responses have been documented in the HPI. All other systems are other negative and/or noncontributory. PHYSICAL EXAM: General Impression: Alert and oriented x3, not in acute distress HEENT: Normocephalic atraumatic, extra-ocular movements intact, pupils equal and reactive to light bilaterally, mucous membranes moist. Cardiovascular: Heart regular rate and rhythm, S1&S2 audible, no murmurs, rubs or gallops Chest: Lungs clear to auscultation bilaterally, no rhonchi, no wheeze, no rales Abdomen: Bowel sounds present, abdomen soft, non-tender, non-distended, no orga nomegaly Musculoskeletal: Pulses present and equal in all extremities, no peripheral edema Motor: no focal deficits noted Neurological: CN II-XII grossly intact, no focal motor or sensory deficits noted Skin: Intact with no visualized rashes Psych: Normal affect and mood ED course: 57-year-old male with chief complaint of chest pain. Clinical presentation consistent with atypical chest pain typical features. All signs upon arrival are within acceptable limits. Laboratory evaluation obtained. CC, coag panel, metabolic panel is obtained. These findings are found to be within patient's usual limits. Troponin 0.021. This is compared to previous troponin levels. This appears to be lower than his baseline. Patient x-ray shows findings that are not acute. Patient reevaluated at bedside and found to be asymptomatic. This point patient has multiple risk factors. His presentation is atypical with typical features. He was given aspirin per EMS. Patient be admitted observation for serial troponins and cardiology consultation. EKG interpretation: Ventricular rate 72, normal sinus rhythm,. 176, QS 96, QTC 477. No WV prolongation, no QTC prolongation, no ST changes noted. There is an isolated T-wave inversion in V6. EKG compared to EKG from Gen. 2018 Overall, this EKG is unremarkable - Related Data Home Medications Medication Instructions Recorded Confirmed Insulin Glargine,Hum.rec.anlog 30 unit SQ DAILY 03/24/18 08/05/18 [Basaglar Kwikpen U-100] Allopurinol [Zyloprim] 150 mg PO DAILY 08/05/18 08/05/18 Furosemide [Lasix] 80 mg PO DAILY 08/05/18 08/05/18 Gabapentin [Neurontin] 300 mg PO HS 08/05/18 08/05/18 Insulin Aspart [NovoLOG Flexpen] See Protocol SQ ACHS 08/05/18 08/05/18 Previous Rx's Medication Instructions Recorded Clopidogrel [Plavix] 75 mg PO DAILY #30 tab 03/05/18 Nitroglycerin Sl Tabs [Nitrostat] 0.4 mg SUBLINGUAL Q5M PRN #25 tab 03/05/18 Allergies Allergy/AdvReac Type Severity Reaction Status Date / Time morphine Allergy Confusion Verified 08/05/18 19:17 codeine AdvReac Hallucinati Verified 08/05/18 19:17 ons All antibiotics except Keflex Allergy Unknown Uncoded 03/24/18 14:17 Childhood Review of Systems ROS Statement: Those systems with pertinent positive or pertinent negative responses have been documented in the HPI. ROS Other: All systems not noted in ROS Statement are negative. Past Medical History Past Medical History: Coronary Artery Disease (CAD), Diabetes Mellitus, Dialysis, Eye Disorder, GERD/Reflux, Hyperlipidemia, Hypertension, Myocardial Infarction ([place]), Myocardial Infarction (non Q-wave), Osteoarthritis (OA), Renal Disease, Syncope Additional Past Medical History / Comment(s): NEUROPATHY, per old medcial hx ulcer age 17, sinus problems, Last Myocardial Infarction Date:: 03-03-18, nstemi History of Any Multi-Drug Resistant Organisms: None Reported Past Surgical History: Heart Catheterization With Stent Additional Past Surgical History / Comment(s): RT EYE VITRECTOMY february 2017 S AGO AT [place], COLONOSCOPY-POLYPS BENIGN, THRYOID NEEDLE ASPIRATION-NEG, LT LEG SX"HAD A cyst REMOVED", tilt table test in past. DEC 2016 LEFT ARM FISTULA, PD catheter placement, catheter removed, fistula gram with balloon for stenosis Past Anesthesia/Blood Transfusion Reactions: Postoperative Nausea & Vomiting (P ONV) Date of Last Stent Placement:: 03-03-18 Past Psychological History: Anxiety, Depression Smoking Status: Former smoker Past Alcohol Use History: None Reported Past Drug Use History: None Reported - Past Family History Father Family Medical History: Cancer (Father from brain cancer.), Hyperlipidemia Additional Family Medical History / Comment(s): ? BRAIN CANCER Mother Family Medical History: Diabetes Mellitus, Osteoarthritis (OA) Additional Family Medical History / Comment(s): DJD. MOM IS STILL ALIVE AT AGE 80 Sister(s) Family Medical History: Diabetes Mellitus (Patient has one sister with stoney vidal.) Brother(s) Family Medical History: Diabetes Mellitus (One of his brother has diabetes.) Additional Family Medical History / Comment(s): Patient has 4 kids no major medical problems. General Exam Limitations: no limitations Course Vital Signs 08/05/18 19:03 Temperature 98.2 F Pulse Rate 76 Respiratory 18 Rate Blood Pressure 146/69 O2 Sat by Pulse 97 Oximetry Medical Decision Making - Lab Data Result diagrams: 08/05/18 19:20 08/05/18 19:20 Lab Results 08/05/18 08/05/18 08/05/18 Range/Units 19:20 19:20 19:20 WBC 7.3 (3.8-10.6) k/uL RBC 3.12 L (4.30-5.90) m/uL Hgb 9.9 L (13.0-17.5) gm/dL Hct 27.9 L (39.0-53.0) % MCV 89.3 (80.0-100.0) fL MCH 31.7 (25.0-35.0) pg MCHC 35.4 (31.0-37.0) g/dL RDW 13.2 (11.5-15.5) % Plt Count 235 (150-450) k/uL Neutrophils % 74 % Lymphocytes % 13 % Monocytes % 5 % Eosinophils % 5 % Basophils % 1 % Neutrophils # 5.4 (1.3-7.7) k/uL Lymphocytes # 0.9 L (1.0-4.8) k/uL Monocytes # 0.4 (0-1.0) k/uL Eosinophils # 0.4 (0-0.7) k/uL Basophils # 0.1 (0-0.2) k/uL PT 9.6 (9.0-12.0) sec INR 0.9 (<1.2) APTT 24.1 (22.0-30.0) sec Sodium 137 (137-145) mmol/L Potassium 3.2 L (3.5-5.1) mmol/L Chloride 101 (98-107) mmol/L Carbon Dioxide 27 (22-30) mmol/L Anion Gap 9 mmol/L BUN 42 H (9-20) mg/dL Creatinine 2.98 H (0.66-1.25) mg/dL Est GFR (CKD-EPI)AfAm 26 (>60 ml/min/1.73 sqM) Est GFR (CKD-EPI)NonAf 22 (>60 ml/min/1.73 sqM) Glucose 254 H (74-99) mg/dL Calcium 8.4 (8.4-10.2) mg/dL Magnesium 2.0 (1.6-2.3) mg/dL Total Bilirubin 0.3 (0.2-1.3) mg/dL AST 17 (17-59) U/L ALT 23 (21-72) U/L Alkaline Phosphatase 127 H (38-126) U/L Troponin I (0.000-0.034) ng/mL Total Protein 5.8 L (6.3-8.2) g/dL Albumin 3.4 L (3.5-5.0) g/dL 08/05/18 Range/Units 19:20 WBC (3.8-10.6) k/uL RBC (4.30-5.90) m/uL Hgb (13.0-17.5) gm/dL Hct (39.0-53.0) % MCV (80.0-100.0) fL MCH (25.0-35.0) pg MCHC (31.0-37.0) g/dL RDW (11.5-15.5) % Plt Count (150-450) k/uL Neutrophils % % Lymphocytes % % Monocytes % % Eosinophils % % Basophils % % Neutrophils # (1.3-7.7) k/uL Lymphocytes # (1.0-4.8) k/uL Monocytes # (0-1.0) k/uL Eosinophils # (0-0.7) k/uL Basophils # (0-0.2) k/uL PT (9.0-12.0) sec INR (<1.2) APTT (22.0-30.0) sec Sodium (137-145) mmol/L Potassium (3.5-5.1) mmol/L Chloride (98-107) mmol/L Carbon Dioxide (22-30) mmol/L Anion Gap mmol/L BUN (9-20) mg/dL Creatinine (0.66-1.25) mg/dL Est GFR (CKD-EPI)AfAm (>60 ml/min/1.73 sqM) Est GFR (CKD-EPI)NonAf (>60 ml/min/1.73 sqM) Glucose (74-99) mg/dL Calcium (8.4-10.2) mg/dL Magnesium (1.6-2.3) mg/dL Total Bilirubin (0.2-1.3) mg/dL AST (17-59) U/L ALT (21-72) U/L Alkaline Phosphatase (38-126) U/L Troponin I 0.021 (0.000-0.034) ng/mL Total Protein (6.3-8.2) g/dL Albumin (3.5-5.0) g/dL Disposition Clinical Impression: Chest pain Disposition: ADMITTED IP TO THIS HOSP Condition: Fair Referrals: Ten Mckeon DO [Primary Care Provider] - 1-2 days Decision Time: 20:30
[2018-08-05 19:54] LABS: Basophils # (A) 0.1 k/uL (0-0.2); Basophils % (A) 1 %; Eosinophils # (A) 0.4 k/uL (0-0.7); Eosinophils % (A) 5 %; HCT 27.9 % (39.0-53.0); HGB 9.9 gm/dL (13.0-17.5); Lymphocytes # (A) 0.9 k/uL (1.0-4.8); Lymphocytes % (A) 13 %; MCH 31.7 pg (25.0-35.0); MCHC 35.4 g/dL (31.0-37.0); MCV 89.3 fL (80.0-100.0); Mean Platelet Volume 6.5; Monocytes # (A) 0.4 k/uL (0-1.0); Monocytes % (A) 5 %; Neutrophils # (A) 5.4 k/uL (1.3-7.7); Neutrophils % (A) 74 %; Platelet Count 235 k/uL (150-450); RBC 3.12 m/uL (4.30-5.90); RDW 13.2 % (11.5-15.5); WBC 7.3 k/uL (3.8-10.6)
[2018-08-05 20:02] LABS: INR 0.9 (<1.2); Partial Thromboplastin Time 24.1 sec (22.0-30.0); Prothrombin Time 9.6 sec (9.0-12.0)
[2018-08-05 20:04] LABS: Albumin 3.4 g/dL (3.5-5.0); Calcium 8.4 mg/dL (8.4-10.2); Potassium 3.2 mmol/L (3.5-5.1); Total Bilirubin 0.3 mg/dL (0.2-1.3); Total Protein 5.8 g/dL (6.3-8.2)
[2018-08-05] MEDS ORDERED: NITROGLYCERIN SL TABS 0.4 MG TAB SUBLINGUAL PRN ×2 (20:23→20:28)
--- NOTE | 2018-08-05 20:53 | XR ---
EXAMINATION: XR chest 2V DATE AND TIME: 08/05/2018 7:51 PM CLINICAL INDICATION: PHH; Chest Pain TECHNIQUE: Departmental protocol COMPARISON: 03/24/2018 FINDINGS: The lungs are clear. The pleural spaces are negative. The cardiac silhouette is mildly enlarged. The remainder of the mediastinal silhouette is unremarkabl e. The skeletal structures and soft tissues are negative for acute findings. IMPRESSION: NO ACUTE PROCESS.
[2018-08-05 21:31] LABS: Glucose,Whole Blood 265 mg/dL (75-99)
[2018-08-05] MEDS ORDERED: LORazepam 1 MG TAB PO PRN (22:37)
[2018-08-05] MEDS ORDERED: GABAPENTIN 300 MG CAP PO SCH (22:45)
[2018-08-05] MEDS: INSULIN ASPART (NovoLOG) 100 UNIT/ML VIAL SQ SCH (23:11)
[2018-08-06 07:10] LABS: Cholesterol 251 mg/dL (<200); HDL Cholesterol 39 mg/dL (40-60); LDL Cholesterol,Calculated 170 mg/dL (0-99); Triglycerides 212 mg/dL (<150)
[2018-08-06 07:51] LABS: Glucose,Whole Blood 127 mg/dL (75-99)
[2018-08-06] MEDS: INSULIN ASPART (NovoLOG) 100 UNIT/ML VIAL SQ SCH ×2 (08:16→12:20)
[2018-08-06] MEDS ORDERED: INSULIN DETEMIR (LEVEMIR) 100 UNIT/ML SYR SQ SCH (09:00)
[2018-08-06] MEDS ORDERED: FUROSEMIDE 80 MG TAB PO SCH (09:00)
[2018-08-06] MEDS ORDERED: ALLOPURINOL 300 MG TAB PO SCH (09:00)
[2018-08-06] MEDS ORDERED: CLOPIDOGREL 75 MG TAB PO SCH (09:00)
[2018-08-06] MEDS ORDERED: ASPIRIN 325 MG TAB PO SCH (09:00)
[2018-08-06] MEDS: CALCIUM ACETATE 667 MG CAP PO SCH ×2 (09:23→12:21)
--- NOTE | 2018-08-06 10:17 | P.CRDCN ---
History of Present Illness Consult date: 08/06/18 History of present illness: This is a 57-year-old gentleman with history of end stage renal disease, coronary artery disease, hypertension who is admitted to the hospital with complaints of chest pain. In February 2018 patient was admitted with unstable angina and non-STEMI and had a cardiac catheterization. He was found to have total occlusion of the RCA and significant lesion in the OM branch and had stent placement done by Dr. Hinojosa. Patient has been stable and has been getting his dialysis. Yesterday while in dialysis patient started having very tight discom fort in the left side of the chest. He claims that he took his breath away and it was hurting to take breaths. There was tenderness in that area. Patient is to have some Cardec discomfort during dialysis in the same area but the discomfort yesterday was different than usual pain. Slowing down the dialysis process of stopping the dialysis did not help the pain finally patient was brought in for further evaluation. His EKGs did not reveal any acute changes. His first troponin 2 troponins are negative and third troponin was borderline. At this point patient is comfortable. Patient did not have similar pain when he had a non-STEMI and stent placement. The pain appears to be noncardiac. I would discontinue heparin and increase activity. He patient doesn't have any recurrence of chest pain, he could be discharged home. He could have follow-up with Dr. Hinojosa for further evaluation as an outpatient Review of Systems As per the chart Past Medical History Past Medical History: Coronary Artery Disease (CAD), Diabetes Mellitus, Dialysis, Eye Disorder, GERD/Reflux, Hyperlipidemia, Hypertension, Myocardial Infarction ([place]), Myocardial Infarction (non Q-wave), Renal Disease, Syncope Additional Past Medical History / Comment(s): chronic kidney disease, NEUROPATHY, per old medcial hx ulcer age 17, sinus problems, blind in the right eye, legally blind in left eye Last Myocardial Infarction Date:: 03-03-18, nstemi History of Any Multi-Drug Resistant Organisms: None Reported Past Surgical History: Heart Catheterization With Stent Additional Past Surgical History / Comment(s): left EYE VITRECTOMY february 2017 S AGO AT [place], COLONOSCOPY-POLYPS BENIGN, THRYOID NEEDLE ASPIRATION-NEG, LT LEG SX"HAD A cyst REMOVED", tilt table test in past. DEC 2016 LEFT ARM FISTULA, PD catheter placement, catheter removed, fistula gram with balloon for stenosis Past Anesthesia/Blood Transfusion Reactions: Postoperative Nausea & Vomiting (PONV) Date of Last Stent Placement:: 03-03-18 Smoking Status: Former smoker - Past Family History Father Family Medical History: Cancer, Hyperlipidemia Additional Family Medical History / Comment(s): ? BRAIN CANCER Mother Family Medical History: Diabetes Mellitus, Osteoarthritis (OA) Additional Family Medical History / Comment(s): DJD. MOM IS STILL ALIVE AT AGE 80 Sister(s) Family Medical History: Diabetes Mellitus Brother(s) Family Medical History: Diabetes Mellitus Additional Family Medical History / Comment(s): Patient has 4 kids no major medical problems. Medications and Allergies Home Medications Medication Instructions Recorded Confirmed Type Clopidogrel [Plavix] 75 mg PO DAILY #30 tab 03/05/18 08/05/18 Rx Nitroglycerin Sl Tabs [Nitrostat] 0.4 mg SUBLINGUAL Q5M PRN #25 tab 03/05/18 08/05/18 Rx Insulin Glargine,Hum.rec.anlog 30 unit SQ DAILY 03/24/18 08/05/18 History [Basaglar Kwikpen U-100] Allopurinol [Zyloprim] 150 mg PO DAILY 08/05/18 08/05/18 History Calcium Acetate [Phoslo] 667 mg PO TID 08/05/18 08/05/18 History Furosemide [Lasix] 80 mg PO DAILY 08/05/18 08/05/18 History Gabapentin [Neurontin] 300 mg PO HS 08/05/18 08/05/18 History Insulin Aspart [NovoLOG Flexpen] See Protocol SQ ACHS 08/05/18 08/05/18 History LORazepam [Ativan] 2 mg PO HS PRN 08/05/18 08/05/18 History Allergies Allergy/AdvReac Type Severity Reaction Status Date / Time morphine Allergy Confusion Verified 08/05/18 21:42 codeine AdvReac Hallucinati Verified 08/05/18 21:42 ons All antibiotics except Keflex Allergy Unknown Uncoded 08/05/18 21:42 Childhood Physical Exam Vitals: Vital Signs Temp Pulse Pulse Pulse Resp BP BP 08/06/18 08:00 97.7 F 63 18 137/73 08/06/18 04:00 97.9 F 64 14 134/71 08/06/18 00:00 97.9 F 70 14 149/75 08/05/18 20:47 98.3 F 78 16 168/95 08/05/18 19:03 98.2 F 76 18 146/69 Pulse Ox 08/06/18 08:00 99 08/06/18 04:00 96 08/06/18 00:00 97 08/05/18 20:47 98 08/05/18 19:03 97 Intake and Output 08/05/18 08/06/18 08/06/18 22:59 06:59 14:59 Other: Voiding Method Toilet Toilet # Voids 1 Weight 99.79 kg GENERAL EXAM: Patient is alert and oriented and doesn't appear to be in any acute distress HEENT: Normocephalic. Normal reaction of pupils, equal size, normal range of extraocular motion. No erythema or exudates in the throat. NECK: No masses, no nuchal rigidity. CHEST: No chest wall deformity. LUNGS: Equal air entry with no crackles or wheeze. HEART: S1 and S2 normal with no audible mumurs or gallops. Regular rhythm, femor als equal on both sides.. ABDOMEN: No hepatosplenomegaly, normal bowel sounds, no guarding or rigidity. SKIN: No rashes CENTRAL NERVOUS SYSTEM: No focal deficits. EXTREMITIES: No cyanosis, clubbing or edema. Results 08/05/18 19:20 08/05/18 19:20 Cardiac Enzymes 08/05/18 08/05/18 08/06/18 Range/Units 19:20 19:20 01:34 AST 17 (17-59) U/L Troponin I 0.021 0.032 (0.000-0.034) ng/mL 08/06/18 Range/Units 06:12 AST (17-59) U/L Troponin I 0.039 H* (0.000-0.034) ng/mL Coagulation 08/05/18 Range/Units 19:20 PT 9.6 (9.0-12.0) sec APTT 24.1 (22.0-30.0) sec Lipids 08/06/18 Range/Units 06:12 Triglycerides 212 H (<150) mg/dL Cholesterol 251 H (<200) mg/dL HDL Cholesterol 39 L (40-60) mg/dL CBC 08/05/18 Range/Units 19:20 WBC 7.3 (3.8-10.6) k/uL RBC 3.12 L (4.30-5.90) m/uL Hgb 9.9 L (13.0-17.5) gm/dL Hct 27.9 L (39.0-53.0) % Plt Count 235 (150-450) k/uL Comprehensive Metabolic Panel 08/05/18 Range/Units 19:20 Sodium 137 (137-145) mmol/L Potassium 3.2 L (3.5-5.1) mmol/L Chloride 101 (98-107) mmol/L Carbon Dioxide 27 (22-30) mmol/L BUN 42 H (9-20) mg/dL Creatinine 2.98 H (0.66-1.25) mg/dL Glucose 254 H (74-99) mg/dL Calcium 8.4 (8.4-10.2) mg/dL AST 17 (17-59) U/L ALT 23 (21-72) U/L Alkaline Phosphatase 127 H (38-126) U/L Total Protein 5.8 L (6.3-8.2) g/dL Albumin 3.4 L (3.5-5.0) g/dL Current Medications Generic Name Dose Route Start Last Admin Trade Name Freq PRN Reason Stop Dose Admin Allopurinol 150 mg 08/06/18 09:00 08/06/18 09:23 Zyloprim PO 150 mg DAILY JLUIS Administration Aspirin 325 mg 08/06/18 09:00 08/06/18 09:23 Aspirin PO 325 mg DAILY JLUIS Administration Calcium Acetate 667 mg 08/06/18 07:30 08/06/18 09:23 Phoslo PO 667 mg TID-W/MEALS JLUIS Administration Clopidogrel Bisulfate 75 mg 08/06/18 09:00 08/06/18 09:23 Plavix PO 75 mg DAILY JLUIS Administration Furosemide 80 mg 08/06/18 09:00 08/06/18 09:24 Lasix PO 80 mg DAILY [facility] Administration Gabapentin 300 mg 08/05/18 22:45 08/05/18 23:11 Neurontin PO 300 mg HS JLUIS Administration Insulin Aspart 0 unit 08/05/18 22:40 08/06/18 08:16 Novolog SQ Not Given [facility] Protocol Insulin Detemir 30 unit 08/06/18 09:00 08/06/18 09:23 Levemir SQ 30 unit DAILY JLUIS Administration Lorazepam 2 mg 08/05/18 22:37 Ativan PO HS PRN anxiety Nitroglycerin 0.4 mg 08/05/18 20:28 08/05/18 20:58 Nitrostat SUBLINGUAL 0.4 mg Q5M PRN Administration Chest Pain Intake and Output 08/05/18 08/06/18 08/06/18 22:59 06:59 14:59 Other: Voiding Method Toilet Toilet # Voids 1 Weight 99.79 kg 08/05/18 19:20 08/05/18 19:20 EKG Interpretations (text) EKG showed sinus rhythm without acute changes. Poor R wave progression anterior leads noted Assessment and Plan (1) History of coronary artery disease Current Visit: Yes Status: Acute Code(s): Z86.79 - PERSONAL HISTORY OF OTHER DISEASES OF THE CIRCULATORY SYSTEM SNOMED Code(s): 634362682 (2) Chest pain Current Visit: Yes Status: Acute Code(s): R07.9 - CHEST PAIN, UNSPECIFIED SNOMED Code(s): 62180469 (3) Dialysis patient Current Visit: No Status: Acute Code(s): Z99.2 - DEPENDENCE ON RENAL DIALYSIS SNOMED Code(s): 273936687 Plan: His chest pain, clinically appear to be atypical and probably muscular skeletal in nature. EKG did not reveal any acute changes. Troponins are inconsistent. I would recommend that we discontinue heparin. Increase activity. If patient remains stable, patient could be discharged home. Follow-up with Dr. Hinojosa for an outpatient evaluation
[2018-08-06 11:49] LABS: Glucose,Whole Blood 223 mg/dL (75-99)
[2018-08-06 12:28] VITALS: BP 142/71; PULSE 62; RESP 29; TEMP 98.3
--- NOTE | 2018-08-06 12:38 | P.NPCON ---
History of Present Illness - Reason for Consult Consult date: 08/06/18 end stage renal disease - Chief Complaint ESRD with chest pain - History of Present Illness This is a 57-year-old type II diabetic with ESRD on dialysis since September 2017. He was on dialysis yesterday when he had acute onset of precordial chest pain that was severe. His dialysis was terminated and was sent here for evaluation He is seen by the box attacher and this chest pain is not considered to be cardiac. He is known with coronary artery disease and had a stent in February 2018. Subsequently stress test was unremarkable. Patient continues to have pain on and off. This is not associated with any dizziness or shortness of breath but the pain is severe enough for him to have tears in his eyes. No history of cough trauma to his chest. No fever chills. He has a good appetite. No nausea vomiting headache dizziness Past Medical History Past Medical History: Coronary Artery Disease (CAD), Diabetes Mellitus, Dialysis, Eye Disorder, GERD/Reflux, Hyperlipidemia, Hypertension, Myocardial Infarction ([place]), Myocardial Infarction (non Q-wave), Renal Disease, Syncope Additional Past Medical History / Comment(s): chronic kidney disease, NEUROPATHY, per old medcial hx ulcer age 17, sinus problems, blind in the right eye, legally blind in left eye Last Myocardial Infarction Date:: 03-03-18, nstemi History of Any Multi-Drug Resistant Organisms: None Reported Past Surgical History: Heart Catheterization With Stent Additional Past Surgical History / Comment(s): left EYE VITRECTOMY february 2017 S AGO AT [place], COLONOSCOPY-POLYPS BENIGN, THRYOID NEEDLE ASPIRATION-NEG, LT LEG SX"HAD A cyst REMOVED", tilt table test in past. DEC 2016 LEFT ARM FISTULA, PD catheter placement, catheter removed, fistula gram with balloon for stenosis Past Anesthesia/Blood Transfusion Reactions: Postoperative Nausea & Vomiting (PONV) Date of Last Stent Placement:: 03-03-18 Smoking Status: Former smoker - Past Family History Father Family Medical History: Cancer, Hyperlipidemia Additional Family Medical History / Comment(s): ? BRAIN CANCER Mother Family Medical History: Diabetes Mellitus, Osteoarthritis (OA) Additional Family Medical History / Comment(s): DJD. MOM IS STILL ALIVE AT AGE 80 Sister(s) Family Medical History: Diabetes Mellitus Brother(s) Family Medical History: Diabetes Mellitus Additional Family Medical History / Comment(s): Patient has 4 kids no major medical problems. Medications and Allergies Home Medications Medication Instructions Recorded Confirmed Type Clopidogrel [Plavix] 75 mg PO DAILY #30 tab 03/05/18 08/05/18 Rx Nitroglycerin Sl Tabs [Nitrostat] 0.4 mg SUBLINGUAL Q5M PRN #25 tab 03/05/18 08/05/18 Rx Insulin Glargine,Hum.rec.anlog 30 unit SQ DAILY 03/24/18 08/05/18 History [Basaglar Kwikpen U-100] Allopurinol [Zyloprim] 150 mg PO DAILY 08/05/18 08/05/18 History Calcium Acetate [Phoslo] 667 mg PO TID 08/05/18 08/05/18 History Furosemide [Lasix] 80 mg PO DAILY 08/05/18 08/05/18 History Gabapentin [Neurontin] 300 mg PO HS 08/05/18 08/05/18 History Insulin Aspart [NovoLOG Flexpen] See Protocol SQ ACHS 08/05/18 08/05/18 History LORazepam [Ativan] 2 mg PO HS PRN 08/05/18 08/05/18 History Allergies Allergy/AdvReac Type Severity Reaction Status Date / Time morphine Allergy Confusion Verified 08/05/18 21:42 codeine AdvReac Hallucinati Verified 08/05/18 21:42 ons All antibiotics except Keflex Allergy Unknown Uncoded 08/05/18 21:42 Childhood Physical Exam Vitals: Vital Signs Temp Pulse Pulse Pulse Pulse Pulse Pulse 08/06/18 12:00 98.3 F 64 64 62 08/06/18 08:00 97.7 F 63 08/06/18 04:00 97.9 F 64 08/06/18 00:00 97.9 F 70 08/05/18 20:47 98.3 F 78 08/05/18 19:03 98.2 F 76 Resp BP BP BP BP BP Pulse Ox 08/06/18 12:00 29 H 135/72 120/66 142/71 98 08/06/18 08:00 18 137/73 99 08/06/18 04:00 14 134/71 96 08/06/18 00:00 14 149/75 97 08/05/18 20:47 16 168/95 98 06/14/19 19:03 18 146/69 97 Intake and Output 08/05/18 08/06/18 08/06/18 22:59 06:59 14:59 Other: Voiding Method Toilet Toilet Toilet # Voids 1 Weight 99.79 kg On examination is awake alert oriented HEENT exam no JVP neck is supple no facial asymmetry Lungs are clear to auscultation good air entry bilaterally Heart sounds are unremarkable for any murmur rub gallop Abdomen soft nontender Extreme exam was no edema Neurologically awake alert oriented Results - Lab Results Most recent lab results Calcium 8.4 mg/dL (8.4-10.2) 08/05/18 19:20 Magnesium 2.0 mg/dL (1.6-2.3) 08/05/18 19:20 08/05/18 19:20 08/05/18 19:20 Assessment and Plan Plan: Impression 1. ESRD on dialysis Wednesday with a fistula in the left upper arm. 2. Admitted with pericardial left severe chest pain which is continuing on and off. Workup is showing normal troponins. Cardiology has cleared him for discharge 3. History of diabetes since 20 some years with poor compliance admittedly. 4. Anemia of chronic kidney disease with hemoglobin 9.9 nearly at target 5. Mild hypokalemia secondary to dialysis. Recommendation Patient can be discharged and followed up with a box attacher
[2018-08-06 14:15] LABS: Hemoglobin A1C 9.7 % (4.0-6.0)
--- NOTE | 2018-08-06 18:40 | P.HPIM ---
History of Present Illness H&P Date: 08/06/18 Chief Complaint: Chest pressure while at dialysis This document with both both an H&P and discharge summary 57-year-old male one of Dr. Mckeon patient was hospitalized recently at on 03/03/2018 for non-ST NV ended up going to the custodial laborer and found to have 99% blockage of the first marginal branch of the circumflex and moderate disease in the LAD he underwent successful stenting of the obtuse marginal branch with drug-eluting stent by Dr. Bowie. Patient was started on secondary prevention. Patient currently is receiving hemodialysis Wednesday for end-stage renal disease, was complaining off sharp pain midsternal, without any radiation, need dialysis. Patient was subsequently seen in the emergency room, for which he has to be observed for serial enzymes and EKGs with consultation to cardiology. Patient did not have similar complaints to his original and nSTEMI pain, In the emergency room, EKGs were negative for acute changes, first troponin and second troponin are negative, third troponin is borderline, patient is comf ortable when seen in the emergency room, Review of Systems Constitutional: Reports as per HPI, Denies anorexia, Denies chills, Denies chronic headaches, Denies chronic pain, Denies daytime sleepiness, Denies fatigue, Denies fever, Denies lethargy, Denies malaise, Denies night sweats, Denies poor appetite, Denies sweats, Denies weakness, Denies weight gain, Denies weight loss Ears, nose, mouth and throat: Reports as per HPI, Denies ant. neck pain, Denies bleeding gums, Denies dental pain, Denies dysphagia, Denies epistaxis, Denies headache, Denies hoarseness, Denies mouth pain, Denies nasal congestion, Denies nasal discharge, Denies neck fullness/pressure, Denies neck lump, Denies nose pain, Denies odynophagia, Denies post-nasal drip, Denies sinus pain, Denies sinus pressure, Denies swelling in mouth, Denies swelling in throat, Denies sore throat, Denies vertigo, Denies voice changes Cardiovascular: Reports as per HPI, Reports chest pain, Denies claudication, Denies decreased exercise tolerance, Denies dyspnea on exertion, Denies edema, Denies high blood pressure, Denies irregular heart beat, Denies leg edema, Denies lightheadedness, Denies orthopnea, Denies palpitations, Denies paroxysmal nocturnal dyspnea, Denies phlebitis, Denies rapid heart beat, Denies shortness of breath, Denies syncope Respiratory: Reports as per HPI (GERD symptoms), Denies congestion, Denies cough, Denies cough with sputum, Denies dyspnea, Denies excessive sputum, Denies hemoptysis, Denies home oxygen, Denies pain, Denies pain on inspiration, Denies pleurisy, Denies respiratory infections, Denies sleep apnea, Denies snoring, Denies wheezing Gastrointestinal: Reports as per HPI, Reports heartburn, Reports indigestion (History of cholecystectomy), Denies abdominal pain, Denies belching, Denies bloating, Denies BRBPR, Denies change in bowel habits, Denies coffee ground emesis, Denies constipation, Denies diarrhea, Denies dyspepsia, Denies early satiety, Denies excessive gas, Denies hematemesis, Denies hematochezia, Denies jaundice, Denies lactose intolerance, Denies loss of appetite, Denies melena, Denies nausea, Denies vomiting Genitourinary: Reports as per HPI, Denies decreased libido, Denies difficulties fathering child, Denies discharge, Denies dysuria, Denies erectile dysfunction, Denies flank pain, Denies genital pain, Denies genital sores, Denies hematuria, Denies impotence, Denies incontinence, Denies kidney stones, Denies nocturia, Denies polyuria, Denies testicular lump, Denies testicular pain, Denies urinary frequency, Denies urinary hesitancy, Denies urinary retention Musculoskeletal: Reports as per HPI, Denies arm numbness/tingling, Denies atrophy, Denies fractures, Denies frequent falls, Denies gait dysfunction, Denies hot joints, Denies leg numbness/tingling, Denies limitation of motion, Denies loss of height, Denies low back pain, Denies morning stiffness, Denies muscle cramps, Denies muscle weakness, Denies myalgias, Denies neck pain, Denies neck stiffness, Denies prior amputations, Denies redness of joints, Denies shooting arm pain, Denies shooting leg pain Integumentary: Reports as per HPI Neurological: Reports as per HPI, Denies aphasia, Denies ataxia, Denies balance difficulties, Denies burning pain, Denies change in mentation, Denies change in smell/taste, Denies change in speech, Denies confusion, Denies convulsions, Denies double vision, Denies gait dysfunction, Denies head injury, Denies headaches, Denies hearing difficulties, Denies lack of coordination, Denies loss of vision, Denies memory loss, Denies migraines, Denies motor disturbance, Denies numbness, Denies paralysis, Denies paresthesias, Denies seizures, Denies sensory deficit, Denies spasticity, Denies syncope, Denies tic, Denies tingling, Denies transient paralysis, Denies tremors, Denies vertigo, Denies weakness, Denies visual changes Endocrine: Reports as per HPI Past Medical History Past Medical History: Coronary Artery Disease (CAD), Diabetes Mellitus, Dialysis , Eye Disorder, GERD/Reflux, Hyperlipidemia, Hypertension, Myocardial Infarction (NV), Myocardial Infarction (non Q-wave), Renal Disease, Syncope Additional Past Medical History / Comment(s): chronic kidney disease, NEUROPATHY, per old medcial hx ulcer age 17, sinus problems, blind in the right eye, legally blind in left eye Last Myocardial Infarction Date:: 03-03-18, nstemi History of Any Multi-Drug Resistant Organisms: None Reported Past Surgical History: Heart Catheterization With Stent Additional Past Surgical History / Comment(s): left EYE VITRECTOMY february 2017 S AGO [place] [facility], COLONOSCOPY-POLYPS BENIGN, THRYOID NEEDLE ASPIRATION-NEG, LT LEG SX"HAD A cyst REMOVED", tilt table test in past. DEC 2016 LEFT ARM FISTULA, PD catheter placement, catheter removed, fistula gram with balloon for stenosis Past Anesthesia/Blood Transfusion Reactions: Postoperative Nausea & Vomiting (PONV) Date of Last Stent Placement:: 03-03-18 Smoking Status: Former smoker - Past Family History Father Family Medical History: Cancer, Hyperlipidemia Additional Family Medical History / Comment(s): ? BRAIN CANCER Mother Family Medical History: Diabetes Mellitus, Osteoarthritis (OA) Additional Family Medical History / Comment(s): DJD. MOM IS STILL ALIVE AT AGE 80 Sister(s) Family Medical History: Diabetes Mellitus Brother(s) Family Medical History: Diabetes Mellitus Additional Family Medical History / Comment(s): Patient has 4 kids no major medical problems. Medications and Allergies Home Medications Medication Instructions Recorded Confirmed Type Clopidogrel [Plavix] 75 mg PO DAILY #30 tab 03/05/18 08/05/18 Rx Nitroglycerin Sl Tabs [Nitrostat] 0.4 mg SUBLINGUAL Q5M PRN #25 tab 03/05/18 08/05/18 Rx Insulin Glargine,Hum.rec.anlog 30 unit SQ DAILY 03/24/18 08/05/18 History [Basaglar Kwikpen U-100] Allopurinol [Zyloprim] 150 mg PO DAILY 08/05/18 08/05/18 History Calcium Acetate [PhosLo] 667 mg PO TID 08/05/18 08/05/18 History Furosemide [Lasix] 80 mg PO DAILY 08/05/18 08/05/18 History Gabapentin [Neurontin] 300 mg PO HS 08/05/18 08/05/18 History Insulin Aspart [NovoLOG Flexpen] See Protocol SQ ACHS 08/05/18 08/05/18 History LORazepam [Ativan] 2 mg PO HS PRN 08/05/18 08/05/18 History Aspirin EC [Ecotrin Low Dose] 81 mg PO DAILY #1 tablet. 08/06/18 Rx Allergies Allergy/AdvReac Type Severity Reaction Status Date / Time morphine Allergy Confusion Verified 08/05/18 21:42 codeine AdvReac Hallucinati Verified 08/05/18 21:42 ons All antibiotics except Keflex Allergy Unknown Uncoded 08/05/18 21:42 Childhood Physical Exam Vitals: Vital Signs Temp Pulse Pulse Pulse Pulse Pulse Pulse 08/06/18 12:00 98.3 F 64 64 62 08/06/18 08:00 97.7 F 63 08/06/18 04:00 97.9 F 64 08/06/18 00:00 97.9 F 70 08/05/18 20:47 98.3 F 78 08/05/18 19:03 98.2 F 76 Resp BP BP BP BP BP Pulse Ox 08/06/18 12:00 29 H 135/72 120/66 142/71 98 08/06/18 08:00 18 137/73 99 08/06/18 04:00 14 134/71 96 08/06/18 00:00 14 149/75 97 08/05/18 20:47 16 168/95 98 08/05/18 19:03 18 146/69 97 Intake and Output 08/05/18 08/06/18 08/06/18 22:59 06:59 14:59 Other: Voiding Method Toilet Toilet Toilet # Voids 1 Weight 99.79 kg - Constitutional General appearance: cooperative, no acute distress - EENT Eyes: anicteric sclerae, EOMI, PERRLA, dentition normal, normal appearance ENT: NA/AT, normal oropharynx - Neck Neck: no lymphadenopathy, normal ROM, no other, no rigidity, no stridor, no thyromegaly - Respiratory Respiratory: bilateral: CTA, negative: diminished, dullness, rales, prolonged expiration, prolonged inspiration - Cardiovascular Rhythm: regular Heart sounds: normal: S1, S2 Abnormal Heart Sounds: no systolic murmur, no diastolic murmur, no rub, no S3 Gallop, no S4 Gallop, no click, no other - Gastrointestinal General gastrointestinal: normal bowel sounds, soft - Integumentary Integumentary: decreased turgor, normal - Neurologic Neurologic: CNII-XII intact - Musculoskeletal Musculoskeletal: gait normal, strength equal bilaterally - Psychiatric Psychiatric: A&O x's 3, appropriate affect, intact judgment & insight Results CBC & Chem 7: 08/05/18 19:20 08/05/18 19:20 Labs: Abnormal Lab Results - Last 24 Hours (Table) 08/05/18 08/05/18 08/05/18 Range/Units 19:20 19:20 21:29 RBC 3.12 L (4.30-5.90) m/uL Hgb 9.9 L (13.0-17.5) gm/dL Hct 27.9 L (39.0-53.0) % Lymphocytes # 0.9 L (1.0-4.8) k/uL Potassium 3.2 L (3.5-5.1) mmol/L BUN 42 H (9-20) mg/dL Creatinine 2.98 H (0.66-1.25) mg/dL Glucose 254 H (74-99) mg/dL POC Glucose (mg/dL) 265 H (75-99) mg/dL Alkaline Phosphatase 127 H (38-126) U/L Troponin I (0.000-0.034) ng/mL Total Protein 5.8 L (6.3-8.2) g/dL Albumin 3.4 L (3.5-5.0) g/dL Triglycerides (<150) mg/dL Cholesterol (<200) mg/dL LDL Cholesterol, Calc (0-99) mg/dL HDL Cholesterol (40-60) mg/dL 08/06/18 08/06/18 08/06/18 Range/Units 06:12 06:12 07:47 RBC (4.30-5.90) m/uL Hgb (13.0-17.5) gm/dL Hct (39.0-53.0) % Lymphocytes # (1.0-4.8) k/uL Potassium (3.5-5.1) mmol/L BUN (9-20) mg/dL Creatinine (0.66-1.25) mg/dL Glucose (74-99) mg/dL POC Glucose (mg/dL) 127 H (75-99) mg/dL Alkaline Phosphatase (38-126) U/L Troponin I 0.039 H* (0.000-0.034) ng/mL Total Protein (6.3-8.2) g/dL Albumin (3.5-5.0) g/dL Triglycerides 212 H (<150) mg/dL Cholesterol 251 H (<200) mg/dL LDL Cholesterol, Calc 170 H (0-99) mg/dL HDL Cholesterol 39 L (40-60) mg/dL 08/06/18 Range/Units 11:47 RBC (4.30-5.90) m/uL Hgb (13.0-17.5) gm/dL Hct (39.0-53.0) % Lymphocytes # (1.0-4.8) k/uL Potassium (3.5-5.1) mmol/L BUN (9-20) mg/dL Creatinine (0.66-1.25) mg/dL Glucose (74-99) mg/dL POC Glucose (mg/dL) 223 H (75-99) mg/dL Alkaline Phosphatase (38-126) U/L Troponin I (0.000-0.034) ng/mL Total Protein (6.3-8.2) g/dL Albumin (3.5-5.0) g/dL Triglycerides (<150) mg/dL Cholesterol (<200) mg/dL LDL Cholesterol, Calc (0-99) mg/dL HDL Cholesterol (40-60) mg/dL Laboratory Results WBC 7.3 k/uL (3.8-10.6) 08/05/18 19:20 RBC 3.12 m/uL (4.30-5.90) L 08/05/18 19:20 Hgb 9.9 gm/dL (13.0-17.5) L 08/05/18 19:20 Hct 27.9 % (39.0-53.0) L 08/05/18 19:20 MCV 89.3 fL (80.0-100.0) 08/05/18 19:20 MCH 31.7 pg (25.0-35.0) 08/05/18 19: MCHC 35.4 g/dL (31.0-37.0) 08/05/18 19:20 RDW 13.2 % (11.5-15.5) 08/05/18 19:20 Plt Count 235 k/uL (150-450) 08/05/18 19:20 Neutrophils % 74 % 08/05/18 19:20 Lymphocytes % 13 % 08/05/18 19:20 Monocytes % 5 % 08/05/18 19:20 Eosinophils % 5 % 08/05/18 19:20 Basophils % 1 % 08/05/18 19:20 Neutrophils # 5.4 k/uL (1.3-7.7) 08/05/18 19:20 Lymphocytes # 0.9 k/uL (1.0-4.8) L 08/05/18 19:20 Monocytes # 0.4 k/uL (0-1.0) 08/05/18 19:20 Eosinophils # 0.4 k/uL (0-0.7) 08/05/18 19:20 Basophils # 0.1 k/uL (0-0.2) 08/05/18 19:20 PT 9.6 sec (9.0-12.0) 08/05/18 19:20 INR 0.9 (<1.2) 08/05/18 19:20 APTT 24.1 sec (22.0-30.0) 08/05/18 19:20 Sodium 137 mmol/L (137-145) 08/05/18 19:20 Potassium 3.2 mmol/L (3.5-5.1) L 08/05/18 19:20 Chloride 101 mmol/L (98-107) 08/05/18 19:20 Carbon Dioxide 27 mmol/L (22-30) 08/05/18 19:20 Anion Gap 9 mmol/L 08/05/18 19:20 BUN 42 mg/dL (9-20) H 08/05/18 19:20 Creatinine 2.98 mg/dL (0.66-1.25) H 08/05/18 19:20 Est GFR (CKD-EPI)AfAm 26 (>60 ml/min/1.73 sqM) 08/05/18 19:20 Est GFR (CKD-EPI)NonAf 22 (>60 ml/min/1.73 sqM) 08/05/18 19:20 Glucose 254 mg/dL (74-99) H 08/05/18 19:20 POC Glucose (mg/dL) 223 mg/dL (75-99) H 08/06/18 11:47 POC Glu [employer] PANKAJ Cher Valentin 08/06/18 11:[address] Glu mg/dL 232 08/06/18 06:12 Hemoglobin A1c 9.7 % (4.0-6.0) H 08/06/18 06:12 Calcium 8.4 mg/dL (8.4-10.2) 08/05/18 19:20 Magnesium 2.0 mg/dL (1.6-2.3) 08/05/18 19:20 Total Bilirubin 0.3 mg/dL (0.2-1.3) 08/05/18 19:20 AST 17 U/L (17-59) 08/05/18 19:20 ALT 23 U/L (21-72) 08/05/18 19:20 Alkaline Phosphatase 127 U/L (38-126) H 08/05/18 19:20 Troponin I 0.039 ng/mL (0.000-0.034) H* 08/06/18 06:12 Total Protein 5.8 g/dL (6.3-8.2) L 08/05/18 19:20 Albumin 3.4 g/dL (3.5-5.0) L 08/05/18 19:20 Triglycerides 212 mg/dL (<150) H 08/06/18 06:12 Cholesterol 251 mg/dL (<200) H 08/06/18 06:12 LDL Cholesterol, Calc 170 mg/dL (0-99) H 08/06/18 06:12 HDL Cholesterol 39 mg/dL (40-60) L 08/06/18 06:12 Thrombosis Risk Factor Assmnt - Choose All That Apply Any of the Below Risk Factors Present?: Yes Each Factor Represents 1 point: Age 41-60 years, Obesity (BMI >25), Swollen legs (current) Other Risk Factors: No Other congenital or acquired thrombophilia - If yes, enter type in comment: No Thrombosis Risk Factor Assessment Total Risk Factor Score: 3 Thrombosis Risk Factor Assessment Level: Moderate Risk Assessment and Plan Plan: 1. Atypical chest pain with known history off non-ST myocardial infarction, with stent placement to the obtuse marginal branch, patient was monitored closely with cardiac biomarkers and EKGs, patient remained chest pain-free during this hospitalization, and was cleared for discharge, with cardiology to see for outpatient follow-up, Dr. Bowie 2. CAD, with percutaneous intervention as above, has chronic total occlusion of the RCA which fills by collaterals from the left system, stent placement on the first obtuse marginal branch of the circumflex 4 end-stage renal disease: On hemodialysis 3 times a week. Wednesday for which she has a chair time the is Wednesday at 4 PM 5 hypertension: Continue metoprolol along with amlodipine, patient is more hypo tensive shortly after his dialysis may be one of the way is to use midodrine 5 mg in the morning of his dialysis so the blood pressure does not drop down severely after he is done. 6 hyperlipidemia: Patient is on Lipitor 80 mg daily. 7 type 2 diabetes: On insulin continue Levemir 35 units daily along with Accu- Chek with sliding scales coverage. 8 mild arrhythmia: Remain on beta alyssa. 9 anticoagulation: Mostly dual antiplatelet management with aspirin and Plavix. 10 GI prophylaxis: Patient will be on Protonix or Pepcid. 11 DVT prophylaxis: Continue patient on early mobilization and knee-high RODRIGO hose and heparin subcutaneous. Discharge Medication List Clopidogrel [Plavix] 75 mg PO DAILY #30 tab 03/05/18 [Rx] Nitroglycerin Sl Tabs [Nitrostat] 0.4 mg SUBLINGUAL Q5M PRN #25 tab 03/05/18 [Rx] Insulin Glargine,Hum.rec.anlog [Basaglar Kwikpen U-100] 30 unit SQ DAILY 03/24/18 [History] Allopurinol [Zyloprim] 150 mg PO DAILY 08/05/18 [History] Calcium Acetate [PhosLo] 667 mg PO TID 08/05/18 [History] Furosemide [Lasix] 80 mg PO DAILY 08/05/18 [History] Gabapentin [Neurontin] 300 mg PO HS 08/05/18 [History] Insulin Aspart [NovoLOG Flexpen] See Protocol SQ ACHS 08/05/18 [History] LORazepam [Ativan] 2 mg PO HS PRN 08/05/18 [History] Aspirin EC [Ecotrin Low Dose] 81 mg PO DAILY #1 tablet. 08/06/18 [Rx]
== END 2018-08-06 14:33 | disposition home or self-care (01) ==
LOC: EC 18:59 → 1SOBS 20:27
PROVIDERS: ADMIT Family Medicine; ATTEND Family Medicine
DX: R07.89 Other chest pain (principal); R07.2 Precordial pain; I12.0 Hypertensive chronic kidney disease with stage 5 chronic kidney disease or end stage renal disease; N18.6 End stage renal disease; E11.22 Type 2 diabetes mellitus with diabetic chronic kidney disease; I25.10 Atherosclerotic heart disease of native coronary artery without angina pectoris; I25.82 Chronic total occlusion of coronary artery; E11.40 Type 2 diabetes mellitus with diabetic neuropathy, unspecified; I25.2 Old myocardial infarction; E78.5 Hyperlipidemia, unspecified; I95.9 Hypotension, unspecified; R77.8 Other specified abnormalities of plasma proteins; E87.6 Hypokalemia; D63.1 Anemia in chronic kidney disease; K21.9 Gastro-esophageal reflux disease without esophagitis; I49.9 Cardiac arrhythmia, unspecified; E66.9 Obesity, unspecified; Z68.34 Body mass index [BMI] 34.0-34.9, adult; H54.8 Legal blindness, as defined in USA; M79.89 Other specified soft tissue disorders; Z95.5 Presence of coronary angioplasty implant and graft; Z87.891 Personal history of nicotine dependence; Z86.010 Personal history of colon polyps; Z99.2 Dependence on renal dialysis; Z79.899 Other long term (current) drug therapy; Z79.4 Long term (current) use of insulin; Z79.02 Long term (current) use of antithrombotics/antiplatelets; Z79.82 Long term (current) use of aspirin; Z88.1 Allergy status to other antibiotic agents; Z88.5 Allergy status to narcotic agent; Z82.61 Family history of arthritis; Z80.8 Family history of malignant neoplasm of other organs or systems
CPT/HCPCS: 99285; 36415; 93005; 80061; 80053; 83735; 84484 ×2; 85025; 85610; 85730; 83036; 71046; G0378 ×2

== ENCOUNTER 2018-08-08 22:08 | Inpatient (IN) | payer MEDICARE ==
[2018-08-08] MEDS ORDERED: DILTIAZEM DRIP BOLUS FROM BAG 1 MG SOLN IV ONE (22:51)
--- NOTE | 2018-08-08 22:56 | ED ---
General Adult HPI - General Chief complaint: Arrhythmia/Palpitations Stated complaint: Palpitations Time Seen by Provider: 08/08/18 22:24 Source: patient, family, EMS, RN notes reviewed Mode of arrival: EMS Limitations: no limitations - History of Present Illness Initial comments: Patient is a pleasant 57-year-old male presenting to the emergency Department with palpitations. Onset of symptoms was a couple hours ago during dialysis. Patient states symptoms do continue. No history of similar symptoms previously. Patient has had some associated chest discomfort has been mild to moderate. Patient states he has had several episodes since onset of palpitations today. Patient states he did also have some chest discomfort around a week ago and was in the emergency department at that time. Patient states he does have some associated dyspnea. No nausea or diaphoresis at this time. Patient did have some sweating on the previous visit. Patient denies any history of dysrhythmia or palpitations. Patient has no chest discomfort or dyspnea at this time. - Related Data Home Medications Medication Instructions Recorded Confirmed Insulin Glargine,Hum.rec.anlog 30 unit SQ DAILY 03/24/18 08/08/18 [Basaglar Kwikpen U-100] Allopurinol [Zyloprim] 150 mg PO DAILY 08/05/18 08/08/18 Calcium Acetate [PhosLo] 667 mg PO TID 08/05/18 08/08/18 Furosemide [Lasix] 80 mg PO DAILY 08/05/18 08/08/18 Gabapentin [Neurontin] 300 mg PO HS 08/05/18 08/08/18 Insulin Aspart [NovoLOG Flexpen] See Protocol SQ ACHS 08/05/18 08/08/18 LORazepam [Ativan] 2 mg PO HS PRN 08/05/18 08/08/18 Previous Rx's Medication Instructions Recorded Clopidogrel [Plavix] 75 mg PO DAILY #30 tab 03/05/18 Nitroglycerin Sl Tabs [Nitrostat] 0.4 mg SUBLINGUAL Q5M PRN #25 tab 03/05/18 Aspirin EC [Ecotrin Low Dose] 81 mg PO DAILY #1 tablet. 08/06/18 Allergies Allergy/AdvReac Type Severity Reaction Status Date / Time morphine Allergy Confusion Verified 08/08/18 22:36 codeine AdvReac Hallucinati Verified 08/08/18 22:36 ons All antibiotics except Keflex Allergy Unknown Uncoded 08/05/18 21:42 Childhood Review of Systems ROS Statement: Those systems with pertinent positive or pertinent negative responses have been documented in the HPI. ROS Other: All systems not noted in ROS Statement are negative. Constitutional: Denies: fever Eyes: Denies: eye pain ENT: Denies: ear pain Respiratory: Denies: cough Cardiovascular: Reports: as per HPI, palpitations Endocrine: Denies: fatigue Gastrointestinal: Denies: abdominal pain Genitourinary: Denies: dysuria Musculoskeletal: Denies: arthralgia Skin: Denies: rash Neurological: Denies: weakness Past Medical History Past Medical History: Coronary Artery Disease (CAD), Diabetes Mellitus, Dialysis, Eye Disorder, GERD/Reflux, Hyperlipidemia, Hypertension, Myocardial Infarction (AL), Myocardial Infarction (non Q-wave), Renal Disease, Syncope Additional Past Medical History / Comment(s): chronic kidney disease, NEUROPATHY, per old medcial hx ulcer age 17, sinus problems, blind in the right eye, legally blind in left eye Last Myocardial Infarction Date:: 03-03-18, nstemi History of Any Multi-Drug Resistant Organisms: None Reported Past Surgical History: Heart Catheterization With Stent Additional Past Surgical History / Comment(s): left EYE VITRECTOMY february 2017 S AGO AT [facility], COLONOSCOPY-POLYPS BENIGN, THRYOID NEEDLE ASPIRATION-NEG, LT LEG SX"HAD A cyst REMOVED", tilt table test in past. DEC 2016 LEFT ARM FISTULA, PD catheter placement, catheter removed, fistula gram with balloon for stenosis Past Anesthesia/Blood Transfusion Reactions: Postoperative Nausea & Vomiting (PONV) Date of Last Stent Placement:: 03-03-18 Past Psychological History: Anxiety, Depression Smoking Status: Former smoker - Past Family History Father Family Medical History: Cancer, Hyperlipidemia Additional Family Medical History / Comment(s): ? BRAIN CANCER Mother Family Medical History: Diabetes Mellitus, Osteoarthritis (OA) Additional Family Medical History / Comment(s): DJD. MOM IS STILL ALIVE AT AGE 80 Sister(s) Family Medical History: Diabetes Mellitus Brother(s) Family Medical History: Diabetes Mellitus Additional Family Medical History / Comment(s): Patient has 4 kids no major medical problems. General Exam Limitations: no limitations General appearance: alert, in no apparent distress Head exam: Present: atraumatic Eye exam: Present: normal appearance, PERRL ENT exam: Present: normal oropharynx Neck exam: Present: normal inspection Respiratory exam: Present: normal lung sounds bilaterally Cardiovascular Exam: Present: tachycardia, irregular rhythm Expanded Peripheral pulses: 2+: Radial (R), Radial (L), Dorsalis Pedis (R), Dorsalis Pedis (L) GI/Abdominal exam: Present: soft. Absent: tenderness Extremities exam: Present: normal inspection. 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 Freed has been paged again for admission, covering for Dr. Mckeon. EKG Findings - EKG Comments: EKG Findings:: A. fib with RVR, rate 144. QRS 82. QT 332. QTC 514. Normal axis. Normal QRS. Lateral ST depression. Procedures - Procedures Initial comment: Monitor interpretation:. Patient has A. fib with RVR on the monitor at 122. Patient was placed on gambling monitor for monitoring for arrhythmia. Patient has atrial fibrillation Medical Decision Making - Medical Decision Making Patient reevaluated and somewhat improved. Heart rate around 120. Patient is updated on results and plan. Dr. freed has been paged for admission. Cardiology will be placed on consult. - Lab Data Result diagrams: 08/08/18 22:30 08/08/18 22:30 Lab Results 08/08/18 08/08/18 08/08/18 Range/Units 22:30 22:30 22:30 WBC 10.1 (3.8-10.6) k/uL RBC 3.52 L (4.30-5.90) m/uL Hgb 10.6 L (13.0-17.5) gm/dL Hct 31.1 L (39.0-53.0) % MCV 88.3 (80.0-100.0) fL MCH 30.2 (25.0-35.0) pg MCHC 34.3 (31.0-37.0) g/dL RDW 13.2 (11.5-15.5) % Plt Count 256 (150-450) k/uL Neutrophils % 80 % Lymphocytes % 10 % Monocytes % 5 % Eosinophils % 2 % Basophils % 1 % Neutrophils # 8.1 H (1.3-7.7) k/uL Lymphocytes # 1.0 (1.0-4.8) k/uL Monocytes # 0.5 (0-1.0) k/uL Eosinophils # 0.2 (0-0.7) k/uL Basophils # 0.1 (0-0.2) k/uL PT (9.0-12.0) sec INR (<1.2) APTT (22.0-30.0) sec Sodium 137 (137-145) mmol/L Potassium 3.2 L (3.5-5.1) mmol/L Chloride 95 L (98-107) mmol/L Carbon Dioxide 31 H (22-30) mmol/L Anion Gap 11 mmol/L BUN 26 H (9-20) mg/dL Creatinine 2.30 H (0.66-1.25) mg/dL Est GFR (CKD-EPI)AfAm 35 (>60 ml/min/1.73 sqM) Est GFR (CKD-EPI)NonAf 30 (>60 ml/min/1.73 sqM) Glucose 129 H (74-99) mg/dL Calcium 9.1 (8.4-10.2) mg/dL Magnesium 2.0 (1.6-2.3) mg/dL Total Bilirubin 0.6 (0.2-1.3) mg/dL AST 21 (17-59) U/L ALT 29 (21-72) U/L Alkaline Phosphatase 124 (38-126) U/L Creatine Kinase 171 H (55-170) U/L CK-MB (CK-2) 5.8 H (0.0-2.4) ng/mL Troponin I 0.040 H* (0.000-0.034) ng/mL Total Protein 6.7 (6.3-8.2) g/dL Albumin 4.1 (3.5-5.0) g/dL TSH 1.150 (0.465-4.680) mIU/L Free T4 1.51 (0.78-2.19) ng/dL Free T3 pg/mL 3.3 (2.8-5.3) pg/ml 08/08/18 Range/Units 22:30 WBC (3.8-10.6) k/uL RBC (4.30-5.90) m/uL Hgb (13.0-17.5) gm/dL Hct (39.0-53.0) % MCV (80.0-100.0) fL MCH (25.0-35.0) pg MCHC (31.0-37.0) g/dL RDW (11.5-15.5) % Plt Count (150-450) k/uL Neutrophils % % Lymphocytes % % Monocytes % % Eosinophils % % Basophils % % Neutrophils # (1.3-7.7) k/uL Lymphocytes # (1.0-4.8) k/uL Monocytes # (0-1.0) k/uL Eosinophils # (0-0.7) k/uL Basophils # (0-0.2) k/uL PT 9.7 (9.0-12.0) sec INR 0.9 (<1.2) APTT 23.9 (22.0-30.0) sec Sodium (137-145) mmol/L Potassium (3.5-5.1) mmol/L Chloride (98-107) mmol/L Carbon Dioxide (22-30) mmol/L Anion Gap mmol/L BUN (9-20) mg/dL Creatinine (0.66-1.25) mg/dL Est GFR (CKD-EPI)AfAm (>60 ml/min/1.73 sqM) Est GFR (CKD-EPI)NonAf (>60 ml/min/1.73 sqM) Glucose (74-99) mg/dL Calcium (8.4-10.2) mg/dL Magnesium (1.6-2.3) mg/dL Total Bilirubin (0.2-1.3) mg/dL AST (17-59) U/L ALT (21-72) U/L Alkaline Phosphatase (38-126) U/L Creatine Kinase (55-170) U/L CK-MB (CK-2) (0.0-2.4) ng/mL Troponin I (0.000-0.034) ng/mL Total Protein (6.3-8.2) g/dL Albumin (3.5-5.0) g/dL TSH (0.465-4.680) mIU/L Free T4 (0.78-2.19) ng/dL Free T3 pg/mL (2.8-5.3) pg/ml - Radiology Data Radiology results: image reviewed (cxr shows no acute process) Disposition Clinical Impression: Atrial fibrillation with RVR Disposition: ADMITTED IP TO THIS HOSP Is patient prescribed a controlled substance at d/c from ED?: No Decision Time: 00:30
[2018-08-08] MEDS ORDERED: DILTIAZEM 125 MG in SODIUM CHLORIDE 0.9% 100 ML IV SCH (23:00)
[2018-08-08 23:03] LABS: Basophils # (A) 0.1 k/uL (0-0.2); Basophils % (A) 1 %; Eosinophils # (A) 0.2 k/uL (0-0.7); Eosinophils % (A) 2 %; HCT 31.1 % (39.0-53.0); HGB 10.6 gm/dL (13.0-17.5); Lymphocytes % (A) 10 %; MCH 30.2 pg (25.0-35.0); MCHC 34.3 g/dL (31.0-37.0); MCV 88.3 fL (80.0-100.0); Mean Platelet Volume 6.6; Monocytes # (A) 0.5 k/uL (0-1.0); Monocytes % (A) 5 %; Neutrophils # (A) 8.1 k/uL (1.3-7.7); Neutrophils % (A) 80 %; Platelet Count 256 k/uL (150-450); RBC 3.52 m/uL (4.30-5.90); RDW 13.2 % (11.5-15.5); WBC 10.1 k/uL (3.8-10.6)
[2018-08-08 23:13] LABS: INR 0.9 (<1.2); Partial Thromboplastin Time 23.9 sec (22.0-30.0); Prothrombin Time 9.7 sec (9.0-12.0)
[2018-08-08 23:15] LABS: Albumin 4.1 g/dL (3.5-5.0); Calcium 9.1 mg/dL (8.4-10.2); Potassium 3.2 mmol/L (3.5-5.1); Total Bilirubin 0.6 mg/dL (0.2-1.3); Total Protein 6.7 g/dL (6.3-8.2)
[2018-08-08] MEDS ORDERED: POTASSIUM CHLORIDE ER 20 MEQ TAB.ER PO STA (23:26)
[2018-08-08 23:30] LABS: T4, Free (Free Thyroxine) 1.51 ng/dL (0.78-2.19)
[2018-08-08 23:45] LABS: Creatine Kinase MB 5.8 ng/mL (0.0-2.4)
--- NOTE | 2018-08-08 23:59 | XR ---
EXAM: XR Chest, 2 Views CLINICAL HISTORY: ITS.REASON XR Reason: dysrhythmia TECHNIQUE: Frontal and lateral views of the chest. COMPARISON: 08/05/18 chest radiography FINDINGS: Lungs: Unremarkable. No consolidation. Pleural space: Unremarkable. No pneumothorax. Heart: Cardiomegaly. Mediastinum: Unremarkable. Bones/joints: Degenerative changes in spine. Vasculature: Pathologic calcifications of the thoracic aortic arch. IMPRESSION: No acute cardiopulmonary disease.
[2018-08-09 00:24] LABS: Troponin I 0.04 ng/mL (0.000-0.034)
[2018-08-09] MEDS ORDERED: ASPIRIN 81 MG PO STA (00:31)
[2018-08-09] MEDS ORDERED: HEPARIN SODIUM,PORCINE 5,000 UNIT/ML 1 ML VIAL IV PRN (00:31)
[2018-08-09] MEDS ORDERED: DILTIAZEM DRIP BOLUS FROM BAG 1 MG SOLN IV ONE (00:31)
[2018-08-09] MEDS ORDERED: HEPARIN SODIUM,PORCINE 5,000 UNIT/ML 1 ML VIAL IV ONE (00:31)
[2018-08-09] MEDS: HEPARIN SOD,PORK IN 0.45% NACL 25,000 UNIT in 0.45% NACL 1 250ML.BAG IV SCH (01:15)
[2018-08-09 02:01] LABS: Glucose,Whole Blood 139 mg/dL (75-99)
[2018-08-09 02:25] VITALS: BMI 34.2
[2018-08-09 04:35] LABS: Mean Platelet Volume 6.8; Platelet Count 241 k/uL (150-450)
[2018-08-09 05:56] LABS: Glucose,Whole Blood 177 mg/dL (75-99)
[2018-08-09] MEDS ORDERED: ATORVASTATIN 80 MG TAB PO ONE (06:00)
--- NOTE | 2018-08-09 08:31 | P.CRDCN ---
History of Present Illness Consult date: 08/09/18 Requesting physician: Perry Christian Consult reason: atrial fibrillation Chief complaint: Chest pain and palpitation History of present illness: This is a 58-year-old gentleman with history of hypertension, hyperlipidemia, diabetes, end-stage renal disease on hemodialysis who underwent angioplasty and stenting of the first obtuse marginal branch of the circumflex on March [address] Hinojosa, he follows with Dr. VC Kemp in the office. Patient was also found to have a chronically totally occluded RCA fills with collaterals from the left system, intermediate disease in the LAD. He had a subsequent admission to the hospital recently with symptoms of chest discomfort, he was seen in consultation by Dr. Hall and recommended to be discharged home to follow-up in the office post discharge. According to the patient, he was at dialysis yesterday, developed some chest discomfort with subsequent palpitations. He became quite nauseated, short of breath and lightheaded. The nurse checked his heart rate while at dialysis and noted it to be irregular and he was advised to come to the emergency room for further evaluation and treatment. His EKG on admission here showed atrial fibrillation with a rapid ventricular response, nonspecific ST-T changes in the lateral leads. Patient denies any prior history of atrial fibrillation. Chest x-ray does not show any acute cardiopulmonary disease. Blood pressure on arrival here 108/60 with a heart rate of 120, 96% on room air. Laboratory data was reviewed, white blood cell count 10.1, hemoglobin 10.6, platelet count 241. Sodium 137, potassium 3.2, BUN 26 and creatinine 2.3. Magnesium 2.0, troponins 0.040, 2.5. TSH is 1.1, free T4 1 0.5 and free T3 3 0.3. At the time of my examination this morning, patient is currently chest pain-free, denies any nausea. Past Medical History Past Medical History: Coronary Artery Disease (CAD), Diabetes Mellitus, Dialysis, Eye Disorder, GERD/Reflux, Hyperlipidemia, Hypertension, Myocardial Infarction (DC), Myocardial Infarction (non Q-wave), Renal Disease, Syncope Additional Past Medical History / Comment(s): chronic kidney disease, NEUROPATHY, per old medcial hx ulcer age 17, sinus problems, blind in the right eye, legally blind in left eye Last Myocardial Infarction Date:: 03-03-18, nstemi History of Any Multi-Drug Resistant Organisms: None Reported Past Surgical History: Heart Catheterization With Stent Additional Past Surgical History / Comment(s): left EYE VITRECTOMY february 2017 S AGO AT [place], COLONOSCOPY-POLYPS BENIGN, THRYOID NEEDLE ASPIRATION-NEG, LT LEG SX"HAD A cyst REMOVED", tilt table test in past. DEC 2016 LEFT ARM FISTULA, PD catheter placement, catheter removed, fistula gram with balloon for stenosis Past Anesthesia/Blood Transfusion Reactions: Postoperative Nausea & Vomiting (PONV) Date of Last Stent Placement:: 03-03-18 Past Psychological History: Anxiety, Depression Additional Psychological History / Comment(s): PT ADMITS TO SOME DEPRESSION D/T medical problems but has no thoughts of wanting to harm self. Smoking Status: Former smoker Past Alcohol Use History: None Reported Additional Past Alcohol Use History / Comment(s): STARTED SMOKING AT AGE 12 WORKED UP TO ALMOST A [employer] THEN QUIT 20 YEARS AGO Past Drug Use History: None Reported - Past Family History Father Family Medical History: Cancer, Hyperlipidemia Additional Family Medical History / Comment(s): ? BRAIN CANCER Mother Family Medical History: Diabetes Mellitus, Osteoarthritis (OA) Additional Family Medical History / Comment(s): DJD. MOM IS STILL ALIVE AT AGE 80 Sister(s) Family Medical History: Diabetes Mellitus Brother(s) Family Medical History: Diabetes Mellitus Additional Family Medical History / Comment(s): Patient has 4 kids no major medical problems. Medications and Allergies Home Medications Medication Instructions Recorded Confirmed Type Clopidogrel [Plavix] 75 mg PO DAILY #30 tab 03/05/18 08/08/18 Rx Nitroglycerin Sl Tabs [Nitrostat] 0.4 mg SUBLINGUAL Q5M PRN #25 tab 03/05/18 08/08/18 Rx Insulin Glargine,Hum.rec.anlog 30 unit SQ DAILY 03/24/18 08/08/18 History [Basaglar Kwikpen U-100] Allopurinol [Zyloprim] 150 mg PO DAILY 08/05/18 08/08/18 History Calcium Acetate [PhosLo] 667 mg PO TID 08/05/18 08/08/18 History Furosemide [Lasix] 80 mg PO DAILY 08/05/18 08/08/18 History Gabapentin [Neurontin] 300 mg PO HS 08/05/18 08/08/18 History Insulin Aspart [NovoLOG Flexpen] See Protocol SQ ACHS 08/05/18 08/08/18 History LORazepam [Ativan] 2 mg PO HS PRN 08/05/18 08/08/18 History Aspirin EC [Ecotrin Low Dose] 81 mg PO DAILY #1 tablet. 08/06/18 08/08/18 Rx Allergies Allergy/AdvReac Type Severity Reaction Status Date / Time morphine Allergy Confusion Verified 08/08/18 22:36 codeine AdvReac Hallucinati Verified 08/08/18 22:36 ons All antibiotics except Keflex Allergy Unknown Uncoded 08/05/18 21:42 Childhood Physical Exam Vitals: Vital Signs Temp Pulse Pulse Pulse Resp BP BP 08/09/18 04:00 98.6 F 64 16 91/52 08/09/18 02:26 122 H 08/09/18 02:02 98.8 F 122 H 18 108/61 08/09/18 00:40 98.2 F 121 H 17 120/73 08/09/18 00:20 117 H 11 L 08/09/18 00:00 134 H 18 117/79 08/08/18 23:40 125 H 16 97/65 08/08/18 23:20 133 H 18 120/81 08/08/18 23:00 130 H 17 121/79 08/08/18 22:20 140 H 19 121/79 08/08/18 22:17 145 H 08/08/18 22:11 98.1 F 145 H 18 121/79 Pulse Ox 08/09/18 04:00 96 08/09/18 02:26 08/09/18 02:02 96 08/09/18 00:40 08/09/18 00:20 08/09/18 00:00 08/08/18 23:40 08/08/18 23:20 08/08/18 23:00 98 08/08/18 22:20 99 08/08/18 22:17 08/08/18 22:11 98 Intake and Output 08/08/18 08/09/18 08/09/18 22:59 06:59 14:59 Intake Total 141.583 Balance 141.583 Intake: Intake, IV Titration 141.583 Amount Diltiazem 125 mg In 95.25 Sodium Chloride 0.9% 100 ml @ 5 MG/HR 5 mls/hr IV .Q24H [facility] Rx#:[id number] Heparin Sod,Pork in 0.45% 46.333 NaCl 25,000 unit In 0.45 % NaCl 1 250ml.bag @ 10 UNITS/KG/HR 10 mls/hr IV .Q24H [facility] Rx#:[id number] Other: Weight 100 kg PHYSICAL EXAMINATION: GENERAL: 58-year-old gentleman in no acute distress at the time of my examination HEENT: Head is atraumatic, normocephalic. Pupils equal, round. Sclera anicteric. Conjunctiva are clear. Mucous membranes of the mouth are moist. Neck is supple. There is no elevated jugular venous pressure. No carotid bruit is heard. HEART EXAMINATION: Heart S1, S2 normal. No murmur or gallop heard. CHEST EXAMINATION: Lungs are clear to auscultation and precussion. No chest wall tenderness is noted on palpation or with deep breathing. ABDOMEN: Soft, nontender. Bowel sounds are heard. No organomegaly noted. EXTREMITIES: 2+ peripheral pulses with no evidence of peripheral edema and no calf tenderness noted. NEUROLOGIC patient is awake, alert and oriented X3. . Results 08/09/18 04:19 08/08/18 22:30 Cardiac Enzymes 08/08/18 08/08/18 08/09/18 Range/Units 22:30 22:30 04:19 AST 21 (17-59) U/L CK-MB (CK-2) 5.8 H (0.0-2.4) ng/mL Troponin I 0.040 H* 2.540 H* (0.000-0.034) ng/mL Coagulation 08/08/18 08/09/18 Range/Units 22:30 04:19 PT 9.7 (9.0-12.0) sec APTT 23.9 36.9 H (22.0-30.0) sec CBC 08/08/18 08/09/18 Range/Units 22:30 04:19 WBC 10.1 (3.8-10.6) k/uL RBC 3.52 L (4.30-5.90) m/uL Hgb 10.6 L (13.0-17.5) gm/dL Hct 31.1 L (39.0-53.0) % Plt Count 256 241 (150-450) k/uL Comprehensive Metabolic Panel 08/08/18 Range/Units 22:30 Sodium 137 (137-145) mmol/L Potassium 3.2 L (3.5-5.1) mmol/L Chloride 95 L (98-107) mmol/L Carbon Dioxide 31 H (22-30) mmol/L BUN 26 H (9-20) mg/dL Creatinine 2.30 H (0.66-1.25) mg/dL Glucose 129 H (74-99) mg/dL Calcium 9.1 (8.4-10.2) mg/dL AST 21 (17-59) U/L ALT 29 (21-72) U/L Alkaline Phosphatase 124 (38-126) U/L Total Protein 6.7 (6.3-8.2) g/dL Albumin 4.1 (3.5-5.0) g/dL Current Medications Generic Name Dose Route Start Last Admin Trade Name Freq PRN Reason Stop Dose Admin Aspirin 325 mg 08/10/18 09:00 Aspirin PO DAILY [facility] Heparin Sodium (Porcine) 0 unit 08/09/18 00:31 Heparin IV Q6HR PRN Low PTT Protocol Diltiazem HCl 125 mg/ Sodium 125 mls @ 5 mls/hr 08/08/18 23:00 08/09/18 06:27 Chloride IV 0 mg/hr .Q24H [facility] 0 mls/hr Infusion 5 MG/HR Heparin Sodium/Sodium Chloride 250 mls @ 10 mls/hr 08/09/18 00:45 08/09/18 05:53 25,000 unit/ Sodium Chloride IV 13 units/kg/hr .Q24H [facility] 13 mls/hr Titration Protocol 10 UNITS/KG/HR Sodium Chloride 10 ml 08/09/18 09:00 Saline Flush IV BID [facility] Intake and Output 08/08/18 08/09/18 08/09/18 22:59 06:59 14:59 Intake Total 141.583 Balance 141.583 Intake: Intake, IV Titration 141.583 Amount Diltiazem 125 mg In 95.25 Sodium Chloride 0.9% 100 ml @ 5 MG/HR 5 mls/hr IV .Q24H [facility] Rx#:[id number] Heparin Sod,Pork in 0.45% 46.333 NaCl 25,000 unit In 0.45 % NaCl 1 250ml.bag @ 10 UNITS/KG/HR 10 mls/hr IV .Q24H [facility] Rx#:[id number] Other: Weight 100 kg 08/09/18 04:19 08/08/18 22:30 EKG Interpretations (text) EKG on presentation here shows A. fib with RVR Assessment and Plan Plan: Assessment and plan #1 atrial fibrillation with rapid ventricular response, paroxysmal, patient currently in normal sinus rhythm #2 known history of coronary artery disease, most recent stent placement was in February of this year at which time patient underwent stenting of the first obtuse marginal branch of the circumflex. He was also found at that time to have a chronically occluded RCA and intermediate disease in the LAD. #3 hypertension #4 hyperlipidemia #5 diabetes #6 chronic renal failure, undergoes dialysis #7 abnormal troponin, 0.040, 2.5. #8 hypokalemia Plan Replace potassium. Obtain echocardiogram with Doppler study. IV Cardizem will be discontinued, I did have a lengthy discussion with the patient, he will need to be anticoagulated for his atrial fibrillation, patient is also on dual antiplatelet therapy. We will look into coverage for Eliquis, decrease aspirin to 81 mg daily, if the patient is covered we will put the patient on Eliquis 2- 1/2 twice a day along with Plavix 75 and Ecotrin 81, after one month we will discontinue the aspirin. We will start the patient on a beta alyssa as well. Initiate statin. We will obtain a third troponin value, patient's abnormality in troponin could be secondary to atrial fibrillation with rapid ventricular response, if the troponin continues to rise, may consider a possible repeat cardiac catheterization. Further recommendations to follow. DNP note has been reviewed, I agree with a documented findings and plan of care. Patient was seen and examined.
[2018-08-09] MEDS: CLOPIDOGREL 75 MG TAB PO SCH (08:36)
[2018-08-09] MEDS: METOPROLOL TARTRATE 12.5 MG TAB PO SCH ×2 (08:37→20:41)
[2018-08-09] MEDS ORDERED: ATORVASTATIN 80 MG TAB PO SCH (09:00)
--- NOTE | 2018-08-09 10:31 | ECHOF ---
Referral Reason:New-onset A. fib MEASUREMENTS -------- HEIGHT: 170.2 cm WEIGHT: 99.8 kg BP: 110/52 RVIDd: 3.5 cm (< 3.3) IVSd: 1.5 cm (0.6 - 1.1) LVIDd: 4.3 cm (3.9 - 5.3) LVPWd: 1.5 cm (0.6 - 1.1) IVSs: 1.9 cm LVIDs: 2.8 cm LVPWs: 1.9 cm IVSd: 1.8 cm (0.6 - 1.1) LVIDd: 4.2 cm (3.9 - 5.3) LVPWd: 1.4 cm (0.6 - 1.1) IVSs: 1.8 cm LVIDs: 2.9 cm LVPWs: 1.8 cm EDV(Teich): 77 ml ESV(Teich): 33 ml EF(Teich): 58 % %FS: 30 % SV(Teich): 45 ml Ao Diam: 3.0 cm (2.0 - 3.7) AV Cusp: 4.2 cm (1.5 - 2.6) LA Diam: 1.9 cm (2.7 - 3.8) MV EXCURSION: 21.757 mm (> 18.000) MV EF SLOPE: 132 mm/s (70 - 150) MV E Bryn: 1.39 m/s MV DecT: 287 ms MV A Bryn: 1.06 m/s MV E/A Ratio: 1.46 RAP: 10.00 mmHg RVSP: 26.23 mmHg FINDINGS -------- Sinus rhythm. This was a technically good study. The left ventricular size is normal. There is moderate concentric left ventricular hypertrophy. O verall left ventricular systolic function is normal with, an EF between 55 - 60 %. The right ventricle is normal in size. The left atrium is normal in size. The right atrial size is normal. There is mild aortic valve sclerosis. The mitral valve is normal. Mild mitral regurgitation is present. The tricuspid valve appears structurally normal. Mild tricuspid regurgitation present. There is n o evidence of pulmonary hypertension. The right ventricular systolic pressure, as measured by Doppl er, is 26.23mmHg. There is no pulmonic regurgitation present. There is no pericardial effusion. CONCLUSIONS -------- 1. Sinus rhythm. 2. This was a technically good study. 3. The left ventricular size is normal. 4. There is moderate concentric left ventricular hypertrophy. 5. Overall left ventricular systolic function is normal with, an EF between 55 - 60 %. 6. The left atrium is normal in size. 7. There is mild aortic valve sclerosis. 8. The mitral valve is normal. 9. Mild mitral regurgitation is present. 10. The tricuspid valve appears structurally normal. 11. Mild tricuspid regurgitation present. 12. There is no evidence of pulmonary hypertension. 13. There is no pulmonic regurgitation present. 14. There is no pericardial effusion. DEVIL TENDER: JAYNA MaciasT
[2018-08-09] MEDS ORDERED: LORazepam 1 MG TAB PO PRN (11:39)
[2018-08-09] MEDS ORDERED: NITROGLYCERIN SL TABS 0.4 MG TAB SUBLINGUAL PRN ×2 (11:39→15:32)
[2018-08-09 11:45] LABS: Glucose,Whole Blood 159 mg/dL (75-99)
[2018-08-09] MEDS: CALCIUM ACETATE 667 MG CAP PO SCH ×2 (11:58→17:11)
[2018-08-09] MEDS: INSULIN DETEMIR (LEVEMIR) 100 UNIT/ML SYR SQ SCH (11:59)
[2018-08-09] MEDS: INSULIN ASPART (NovoLOG) 100 UNIT/ML VIAL SQ SCH ×3 (11:59→20:41)
--- NOTE | 2018-08-09 13:20 | P.NPCON ---
History of Present Illness - Reason for Consult end stage renal disease - History of Present Illness Reason for consultation: End-stage renal disease History of present illness: Patient is a 58-year-old male seen in renal consultation for end-stage renal disease. He is maintained on hemodialysis on a Wednesday schedule for a left upper extremity AV fistula. Patient completed hemodialysis yesterday. Patient states he developed chest pain prior to starting hemodialysis yesterday and the pain returned volume was undergoing hemodialysis. Patient also noticed fluttering in his chest. Patient was subsequently sent to the hospital. He was noted to be in A. fib with RVR. He is currently maintained on IV heparin. Cardizem drip was discontinued this morning. Heart rate is controlled. He denies any active chest pain or shortness of breath. No vomiting or diarrhea. Blood sugars are controlled. Hemodynamically stable. Vital signs are stable. General: The patient appeared well nourished and normally developed. HEENT: Head exam is unremarkable. Neck is without jugular venous distension. LUNGS: Lungs are clear to auscultation and percussion. Breath sounds decreased. HEART: Rate and Rhythm are regular. First and second heart sounds normal. No murmurs, rubs or gallops. ABDOMEN: Abdominal exam reveals normal bowel sounds. Non-tender and non- distended. No evidence of peritonitis. EXTREMITITES: No clubbing, cyanosis, or edema. Past Medical History Past Medical History: Coronary Artery Disease (CAD), Diabetes Mellitus, Dialysis, Eye Disorder, GERD/Reflux, Hyperlipidemia, Hypertension, Myocardial Infarction ([place]), Myocardial Infarction (non Q-wave), Renal Disease, Syncope Additional Past Medical History / Comment(s): chronic kidney disease, NEUROPATHY, per old medcial hx ulcer age 17, sinus problems, blind in the right eye, legally blind in left eye Last Myocardial Infarction Date:: 03-03-18, nstemi History of Any Multi-Drug Resistant Organisms: None Reported Past Surgical History: Heart Catheterization With Stent Additional Past Surgical History / Comment(s): left EYE VITRECTOMY february 2017 S AGO AT [facility], COLONOSCOPY-POLYPS BENIGN, THRYOID NEEDLE ASPIRATION-NEG, LT LEG SX"HAD A cyst REMOVED", tilt table test in past. DEC 2016 LEFT ARM FISTULA, PD catheter placement, catheter removed, fistula gram with balloon for stenosis Past Anesthesia/Blood Transfusion Reactions: Postoperative Nausea & Vomiting (PONV) Date of Last Stent Placement:: 03-03-18 Past Psychological History: Anxiety, Depression Additional Psychological History / Comment(s): PT ADMITS TO SOME DEPRESSION D/T medical problems but has no thoughts of wanting to harm self. Smoking Status: Former smoker Past Alcohol Use History: None Reported Additional Past Alcohol Use History / Comment(s): STARTED SMOKING AT AGE 12 WORKED UP TO ALMOST A PPD THEN QUIT 20 YEARS AGO Past Drug Use History: None Reported - Past Family History Father Family Medical History: Cancer, Hyperlipidemia Additional Family Medical History / Comment(s): ? BRAIN CANCER Mother Family Medical History: Diabetes Mellitus, Osteoarthritis (OA) Additional Family Medical History / Comment(s): DJD. MOM IS STILL ALIVE AT AGE 80 Sister(s) Family Medical History: Diabetes Mellitus Brother(s) Family Medical History: Diabetes Mellitus Additional Family Medical History / Comment(s): Patient has 4 kids no major medical problems. Medications and Allergies Home Medications Medication Instructions Recorded Confirmed Type Clopidogrel [Plavix] 75 mg PO DAILY #30 tab 03/05/18 08/08/18 Rx Nitroglycerin Sl Tabs [Nitrostat] 0.4 mg SUBLINGUAL Q5M PRN #25 tab 03/05/18 08/08/18 Rx Insulin Glargine,Hum.rec.anlog 30 unit SQ DAILY 03/24/18 08/08/18 History [Basaglar Kwikpen U-100] Allopurinol [Zyloprim] 150 mg PO DAILY 08/05/18 08/08/18 History Calcium Acetate [PhosLo] 667 mg PO TID 08/05/18 08/08/18 History Furosemide [Lasix] 80 mg PO DAILY 08/05/18 08/08/18 History Gabapentin [Neurontin] 300 mg PO HS 08/05/18 08/08/18 History Insulin Aspart [NovoLOG Flexpen] See Protocol SQ ACHS 08/05/18 08/08/18 History LORazepam [Ativan] 2 mg PO HS PRN 08/05/18 08/08/18 History Aspirin EC [Ecotrin Low Dose] 81 mg PO DAILY #1 tablet. 08/06/18 08/08/18 Rx Allergies Allergy/AdvReac Type Severity Reaction Status Date / Time morphine Allergy Confusion Verified 08/08/18 22:36 codeine AdvReac Hallucinati Verified 08/08/18 22:36 ons All antibiotics except Keflex Allergy Unknown Uncoded 08/05/18 21:42 Childhood Physical Exam Vitals: Vital Signs Temp Pulse Pulse Pulse Resp BP BP 08/09/18 12:00 71 20 129/73 08/09/18 08:10 08/09/18 08:00 70 20 110/52 08/09/18 04:00 98.6 F 64 16 91/52 08/09/18 02:26 122 H 08/09/18 02:02 98.8 F 122 H 18 108/61 08/09/18 00:40 98.2 F 121 H 17 120/73 08/09/18 00:20 117 H 11 L 08/09/18 00:00 134 H 18 117/79 08/08/18 23:40 125 H 16 97/65 08/08/18 23:20 133 H 18 120/81 08/08/18 23:00 130 H 17 121/79 08/08/18 22:20 140 H 19 121/79 08/08/18 22:17 145 H 08/08/18 22:11 98.1 F 145 H 18 121/79 Pulse Ox 08/09/18 12:00 98 08/09/18 08:10 96 08/09/18 08:00 95 08/09/18 04:00 96 08/09/18 02:26 08/09/18 02:02 96 08/09/18 00:40 08/09/18 00:20 08/09/18 00:00 08/08/18 23:40 08/08/18 23:20 08/08/18 23:00 98 08/08/18 22:20 99 08/08/18 22:17 08/08/18 22:11 98 Intake and Output 08/08/18 08/09/18 08/09/18 22:59 06:59 14:59 Intake Total 141.583 90.783 Balance 141.583 90.783 Intake: Intake, IV Titration 141.583 90.783 Amount Diltiazem 125 mg In 95.25 Sodium Chloride 0.9% 100 ml @ 5 MG/HR 5 mls/hr IV .Q24H [facility] Rx#:[id number] Heparin Sod,Pork in 0.45% 46.333 90.783 NaCl 25,000 unit In 0.45 % NaCl 1 250ml.bag @ 10 UNITS/KG/HR 10 mls/hr IV .Q24H [facility] Rx#:[id number] Other: Weight 100 kg Results - Lab Results Most recent lab results Calcium 9.1 mg/dL (8.4-10.2) 08/08/18 22:30 Magnesium 2.0 mg/dL (1.6-2.3) 08/08/18 22:30 08/09/18 04:19 08/08/18 22:30 Assessment and Plan Plan: Assessment: 1. End-stage renal disease maintained on hemodialysis on a Wednesday schedule for left upper extremity AV fistula. 2. A. fib with RVR. Status post Cardizem drip. Maintained on IV heparin. 3. Insulin-dependent diabetes mellitus. 4. Chronic kidney disease mineral bone disease maintained on PhosLo. 5. Hypokalemia. This was checked after he completed hemodialysis yesterday therefore will not be accurate. Plan: Hemodialysis tomorrow. Recheck potassium level today. Potential discharge tomorrow if cleared by cardiology. Thank you for the consultation. I will continue to follow the patient with you during his hospital stay.
--- NOTE | 2018-08-09 13:51 | P.HPIM ---
History of Present Illness H&P Date: 08/09/18 Chief Complaint: Palpitations This is a 58-year-old male patient of Dr Mckeon with history of hypertension and hypertensive cardio vascular disease with left ventricular hypertrophy, coronary artery disease, chronic diastolic heart failure, end-stage renal disease on hemodialysis 3 times weekly, hyperlipidemia, diabetes mellitus type II. Patient had recent angioplasty and stenting of the first obtuse marginal branch of the circumflex on March [address] Bowie. Patient was also found to have a chronically totally occluded RCA fills with collaterals from the left system, intermediate disease in the LAD. He has also had recent angioplasty of the fistula to the left arm done by Dr. Santizo at [facility]. Patient had recent hospitalization on August 05 for symptoms of chest discomfort, he was seen in consultation by Dr. Hall and recommended to be discharged home to follow-up in the office post discharge for outpatient stress testing. Patient gives history that he was at hemodialysis treatment center today and was feeling fine when he first started. By the end of his dialysis treatment he could feel that he had a rapid heart rate, nausea, chest pain and shortness of breath. Staff did an EKG and he was found to be in atrial fibrillation and patient was instructed to come into the hospital for evaluation. Patient presented to [facility] emergency center for further evaluation and treatment. His EKG on admission here showed atrial fibrillation with a rapid ventricular response, nonspecific ST-T changes in the lateral leads. Patient denies any prior history of atrial fibrillation. Chest x-ray does not show any acute cardiopulmonary disease. Blood pressure on arrival here 108/60 with a heart rate of 120, 96% on room air. Laboratory data was reviewed, white blood cell count 10.1, hemoglobin 10.6, platelet count 241. Sodium 137, potassium 3.2, BUN 26 and creatinine 2.3. Magnesium 2.0, troponins 0.040, 2.5 and 7.6. TSH is 1.150, free T4 1.51 and free T3 3.3. Lipid panel from August 06 reveals triglycerides 212, cholesterol 251, LDL 170, HDL 39. Patient was initially started on Cardizem and heparin drips and admitted to the cardiac stepdown unit and cardiology consult requested. Review of Systems All systems: negative Constitutional: Denies chills, Denies fever, Denies malaise, Denies poor appetite, Denies weakness Eyes: denies blurred vision, denies pain Ears, nose, mouth and throat: Denies dysphagia, Denies headache, Denies nasal congestion, Denies sore throat Cardiovascular: Reports chest pain, Reports shortness of breath, Denies d ecreased exercise tolerance, Denies dyspnea on exertion, Denies edema, Denies lightheadedness Respiratory: Denies cough Gastrointestinal: Reports nausea, Denies abdominal pain, Denies diarrhea, Denies vomiting Genitourinary: Denies dysuria, Denies urinary retention Musculoskeletal: Denies myalgias Integumentary: Denies pruritus, Denies rash, Denies wounds Neurological: Denies aphasia, Denies change in mentation, Denies change in speech, Denies numbness, Denies weakness Psychiatric: Denies anxiety, Denies depression Endocrine: Denies fatigue, Denies weight change Past Medical History Past Medical History: Coronary Artery Disease (CAD), Diabetes Mellitus, Dialysis, Eye Disorder, GERD/Reflux, Hyperlipidemia, Hypertension, Myocardial Infarction ([place]), Myocardial Infarction (non Q-wave), Renal Disease, Syncope Additional Past Medical History / Comment(s): chronic kidney disease, NEUROPATHY, per old medcial hx ulcer age 17, sinus problems, blind in the right eye, legally blind in left eye Last Myocardial Infarction Date:: 03-03-18, nstemi History of Any Multi-Drug Resistant Organisms: None Reported Past Surgical History: Heart Catheterization With Stent Additional Past Surgical History / Comment(s): left EYE VITRECTOMY february 2017 S AGO AT [facility], COLONOSCOPY-POLYPS BENIGN, THRYOID NEEDLE ASPIRATION-NEG, LT LEG SX"HAD A cyst REMOVED", tilt table test in past. DEC 2016 LEFT ARM FISTULA, PD catheter placement, catheter removed, fistula gram with balloon for stenosis Past Anesthesia/Blood Transfusion Reactions: Postoperative Nausea & Vomiting (PONV) Date of Last Stent Placement:: 03-03-18 Past Psychological History: Anxiety, Depression Additional Psychological History / Comment(s): PT ADMITS TO SOME DEPRESSION D/T medical problems but has no thoughts of wanting to harm self. Smoking Status: Former smoker Past Alcohol Use History: None Reported Additional Past Alcohol Use History / Comment(s): STARTED SMOKING AT AGE 12 WORKED UP TO ALMOST A PPD THEN QUIT 20 YEARS AGO Past Drug Use History: None Reported - Past Family History Father Family Medical History: Cancer, Hyperlipidemia Additional Family Medical History / Comment(s): ? BRAIN CANCER Mother Family Medical History: Diabetes Mellitus, Osteoarthritis (OA) Additional Family Medical History / Comment(s): DJD. MOM IS STILL ALIVE AT AGE 80 Sister(s) Family Medical History: Diabetes Mellitus Brother(s) Family Medical History: Diabetes Mellitus Additional Family Medical History / Comment(s): Patient has 4 kids no major medical problems. Medications and Allergies Home Medications Medication Instructions Recorded Confirmed Type Clopidogrel [Plavix] 75 mg PO DAILY #30 tab 03/05/18 08/08/18 Rx Nitroglycerin Sl Tabs [Nitrostat] 0.4 mg SUBLINGUAL Q5M PRN #25 tab 03/05/18 08/08/18 Rx Insulin Glargine,Hum.rec.anlog 30 unit SQ DAILY 03/24/18 08/08/18 History [Basaglar Kwikpen U-100] Allopurinol [Zyloprim] 150 mg PO DAILY 08/05/18 08/08/18 History Calcium Acetate [PhosLo] 667 mg PO TID 08/05/18 08/08/18 History Furosemide [Lasix] 80 mg PO DAILY 08/05/18 08/08/18 History Gabapentin [Neurontin] 300 mg PO HS 08/05/18 08/08/18 History Insulin Aspart [NovoLOG Flexpen] See Protocol SQ ACHS 08/05/18 08/08/18 History LORazepam [Ativan] 2 mg PO HS PRN 08/05/18 08/08/18 History Aspirin EC [Ecotrin Low Dose] 81 mg PO DAILY #1 tablet. 08/06/18 08/08/18 Rx Allergies Allergy/AdvReac Type Severity Reaction Status Date / Time morphine Allergy Confusion Verified 08/08/18 22:36 codeine AdvReac Hallucinati Verified 08/08/18 22:36 ons All antibiotics except Keflex Allergy Unknown Uncoded 08/05/18 21:42 Childhood Physical Exam Vitals: Vital Signs Temp Pulse Pulse Pulse Resp BP BP 08/09/18 08:10 08/09/18 04:00 98.6 F 64 16 91/52 08/09/18 02:26 122 H 08/09/18 02:02 98.8 F 122 H 18 108/61 08/09/18 00:40 98.2 F 121 H 17 120/73 08/09/18 00:20 117 H 11 L 08/09/18 00:00 134 H 18 117/79 08/08/18 23:40 125 H 16 97/65 08/08/18 23:20 133 H 18 120/81 08/08/18 23:00 130 H 17 121/79 08/08/18 22:20 140 H 19 121/79 08/08/18 22:17 145 H 08/08/18 22:11 98.1 F 145 H 18 121/79 Pulse Ox 08/09/18 08:10 96 08/09/18 04:00 96 08/09/18 02:26 08/09/18 02:02 96 08/09/18 00:40 08/09/18 00:20 08/09/18 00:00 08/08/18 23:40 08/08/18 23:20 08/08/18 23:00 98 08/08/18 22:20 99 08/08/18 22:17 08/08/18 22:11 98 Intake and Output 08/08/18 08/09/18 08/09/18 22:59 06:59 14:59 Intake Total 141.583 Balance 141.583 Intake: Intake, IV Titration 141.583 Amount Diltiazem 125 mg In 95.25 Sodium Chloride 0.9% 100 ml @ 5 MG/HR 5 mls/hr IV .Q24H [facility] Rx#:[id number] Heparin Sod,Pork in 0.45% 46.333 NaCl 25,000 unit In 0.45 % NaCl 1 250ml.bag @ 10 UNITS/KG/HR 10 mls/hr IV .Q24H [facility] Rx#:[id number] Other: Weight 100 kg General appearance: no acute distress, obese - EENT Eyes: anicteric sclerae, EOMI, PERRLA, no ptosis, no scleral icterus, normal appearance ENT: hard of hearing, NA/AT, normal oropharynx, no thrush Ears: bilateral: normal - Neck Neck: no lymphadenopathy, normal ROM, no rigidity, no stridor, no thyromegaly Carotids: bilateral: upstroke normal Thyroid: bilateral: normal size - Respiratory Respiratory: bilateral: diminished, negative: dullness, rales, rhonchi, wheezing, prolonged expiration, prolonged inspiration - Cardiovascular Rhythm: regular Heart sounds: normal: S1, S2 Abnormal Heart Sounds: systolic murmur - Gastrointestinal General gastrointestinal: normal bowel sounds, soft, no splenomegaly, tenderness (PD catheter in place.), no umbilical hernia, no ventral hernia - Integumentary Integumentary: normal, normal turgor - Neurologic Neurologic: CNII-XII intact - Musculoskeletal Musculoskeletal: gait normal, strength equal bilaterally - Psychiatric Psychiatric: A&O x's 3, appropriate affect, intact judgment & insight Results CBC & Chem 7: 08/09/18 04:19 08/09/18 11:12 Labs: Abnormal Lab Results - Last 24 Hours (Table) 08/08/18 08/08/18 08/08/18 Range/Units 22:30 22:30 22:30 RBC 3.52 L (4.30-5.90) m/uL Hgb 10.6 L (13.0-17.5) gm/dL Hct 31.1 L (39.0-53.0) % Neutrophils # 8.1 H (1.3-7.7) k/uL APTT (22.0-30.0) sec Potassium 3.2 L (3.5-5.1) mmol/L Chloride 95 L (98-107) mmol/L Carbon Dioxide 31 H (22-30) mmol/L BUN 26 H (9-20) mg/dL Creatinine 2.30 H (0.66-1.25) mg/dL Glucose 129 H (74-99) mg/dL POC Glucose (mg/dL) (75-99) mg/dL Creatine Kinase 171 H (55-170) U/L CK-MB (CK-2) 5.8 H (0.0-2.4) ng/mL Troponin I 0.040 H* (0.000-0.034) ng/mL 08/09/18 08/09/18 08/09/18 Range/Units 01:59 04:19 04:19 RBC (4.30-5.90) m/uL Hgb (13.0-17.5) gm/dL Hct (39.0-53.0) % Neutrophils # (1.3-7.7) k/uL APTT 36.9 H (22.0-30.0) sec Potassium (3.5-5.1) mmol/L Chloride (98-107) mmol/L Carbon Dioxide (22-30) mmol/L BUN (9-20) mg/dL Creatinine (0.66-1.25) mg/dL Glucose (74-99) mg/dL POC Glucose (mg/dL) 139 H (75-99) mg/dL Creatine Kinase (55-170) U/L CK-MB (CK-2) (0.0-2.4) ng/mL Troponin I 2.540 H* (0.000-0.034) ng/mL 08/09/18 Range/Units 05:54 RBC (4.30-5.90) m/uL Hgb (13.0-17.5) gm/dL Hct (39.0-53.0) % Neutrophils # (1.3-7.7) k/uL APTT (22.0-30.0) sec Potassium (3.5-5.1) mmol/L Chloride (98-107) mmol/L Carbon Dioxide (22-30) mmol/L BUN (9-20) mg/dL Creatinine (0.66-1.25) mg/dL Glucose (74-99) mg/dL POC Glucose (mg/dL) 177 H (75-99) mg/dL Creatine Kinase (55-170) U/L CK-MB (CK-2) (0.0-2.4) ng/mL Troponin I (0.000-0.034) ng/mL Thrombosis Risk Factor Assmnt - DVT/VTE Prophylaxis DVT/VTE Prophylaxis: Pharmacologic Prophylaxis ordered - Choose All That Apply Any of the Below Risk Factors Present?: Yes Each Factor Represents 1 point: Age 41-60 years, Obesity (BMI >25), Swollen legs (current) Thrombosis Risk Factor Assessment Total Risk Factor Score: 3 Thrombosis Risk Factor Assessment Level: Moderate Risk Assessment and Plan Plan: 1. Non-ST elevation [place]. Continue aspirin 81 mg orally once every day, Plavix 75 mg orally once every day, Lopressor 12.5 mg orally twice every day, Lipitor 80 mg once every day. Cardiology is following. 2. New onset atrial fibrillation with rapid ventricular response, paroxysmal atrial fibrillation. Cardizem drip has been discontinued. Continue heparin drip. Cardiology consult. 3. History of coronary artery disease and non-ST elevated myocardial infarction with previous left heart catheterization angioplasty and stenting of the first obtuse marginal branch of the circumflex on March [address] Bowie. Patient was also found to have a chronically totally occluded RCA fills with collaterals from the left system, intermediate disease in the LAD. 3. Chronic diastolic heart failure. Continue Lasix 80 mg daily. 4. Diabetes mellitus type 2. Continue patient on Levemir 30 units at bedtime along with a sliding scale insulin. 5. End-stage renal disease on hemodialysis 3 times weekly. Consult with nephrology. 6. Diabetic polyneuropathy. Continue gabapentin 300 mg at bedtime. 7. Hypertension and hypertensive cardio vascular disease with left ventricular hypertrophy. Continue Lopressor. 6. History of restless leg syndrome. Stable at this time. 7. History of gout. Continue allopurinol 150 mg orally once every day. 8. DVT prophylaxis. Heparin drip. 9. GI prophylaxis. Continue with Protonix 40 mg orally once every day. 10. Patient is full code. 11. Admitted to inpatient. Estimate length of stay 2 midnights. Discharge plan: Return home Impression and plan of care have been directed as dictated by the signing physician. Katelyn Wesley nurse practitioner acting as scribe for signing physician.
[2018-08-09] MEDS ORDERED: SODIUM CHLORIDE 0.9% 1,000 ML in EMPTY BAG 1 BAG IV ONE (15:32)
[2018-08-09] MEDS ORDERED: ALPRAZolam 0.25 MG TAB PO PRN (15:32)
[2018-08-09] MEDS ORDERED: ALPRAZolam 0.5 MG TAB PO PRN (15:32)
[2018-08-09 17:09] LABS: Glucose,Whole Blood 180 mg/dL (75-99)
[2018-08-09] MEDS: GABAPENTIN 300 MG CAP PO SCH (18:29)
[2018-08-09 21:56] LABS: Glucose,Whole Blood 124 mg/dL (75-99)
[2018-08-10] MEDS: HEPARIN SOD,PORK IN 0.45% NACL 25,000 UNIT in 0.45% NACL 1 250ML.BAG IV SCH (04:44)
[2018-08-10] MEDS ORDERED: ATORVASTATIN 80 MG TAB PO ONE (06:00)
[2018-08-10] MEDS ORDERED: ASPIRIN 325 MG TAB PO ONE (06:00)
[2018-08-10] MEDS: CLOPIDOGREL 75 MG TAB PO SCH (06:07)
[2018-08-10] MEDS: PANTOPRAZOLE 40 MG TABLET PO SCH (06:08)
[2018-08-10] MEDS: METOPROLOL TARTRATE 12.5 MG TAB PO SCH ×2 (06:08→20:21)
[2018-08-10] MEDS: ALLOPURINOL 300 MG TAB PO SCH (06:08)
[2018-08-10 06:18] LABS: Mean Platelet Volume 6.9; Platelet Count 255 k/uL (150-450)
[2018-08-10 06:25] LABS: Glucose,Whole Blood 78 mg/dL (75-99)
[2018-08-10 06:35] LABS: Cholesterol 239 mg/dL (<200); HDL Cholesterol 43 mg/dL (40-60); LDL Cholesterol,Calculated 159 mg/dL (0-99); Triglycerides 183 mg/dL (<150)
[2018-08-10] MEDS: INSULIN ASPART (NovoLOG) 100 UNIT/ML VIAL SQ SCH ×4 (08:13→21:20)
[2018-08-10] MEDS: CALCIUM ACETATE 667 MG CAP PO SCH ×3 (08:13→17:31)
[2018-08-10] MEDS ORDERED: ASPIRIN 325 MG TAB PO SCH (09:00)
[2018-08-10] MEDS ORDERED: ASPIRIN 81 MG PO SCH (09:00)
[2018-08-10 10:00] LABS: Glucose,Whole Blood 128 mg/dL (75-99)
--- NOTE | 2018-08-10 10:33 | P.PN ---
Subjective Patient is seen in follow-up for end-stage renal disease. He is maintained on hemodialysis on a Wednesday schedule. Patient presented to the hospital with chest pain. He was noted to be in A. fib with RVR. Heart rate is controlled. He is scheduled for cardiac catheterization today. He continues to have intermittent episodes of chest pressure. Vital signs are stable. General: The patient appeared well nourished and normally developed. HEENT: Head exam is unremarkable. Neck is without jugular venous distension. LUNGS: Lungs are clear to auscultation and percussion. Breath sounds decreased. HEART: Rate and Rhythm are regular. First and second heart sounds normal. No murmurs, rubs or gallops. ABDOMEN: Abdominal exam reveals normal bowel sounds. Non-tender and non- distended. No evidence of peritonitis. EXTREMITITES: No clubbing, cyanosis, or edema. Objective - Vital Signs Vital signs: Vital Signs Temp 98.3 F 08/10/18 08:00 Pulse 68 08/10/18 10:29 Resp 20 08/10/18 10:29 BP 141/74 08/10/18 10:29 Pulse Ox 98 08/10/18 10:29 Intake & Output 08/09/18 08/10/18 08/10/18 18:59 06:59 18:59 Intake Total 976.783 112.884 Output Total 1000 Balance -23.217 112.884 Weight 100.8 kg Intake: IV 276 Heparin Sod,Pork in 0.45% 116 NaCl 25,000 unit In 0.45 % NaCl 1 250ml.bag @ 10 UNITS/KG/HR 10 mls/hr IV .Q24H [facility] Rx#:[id number] Sodium Chloride 0.9% 1, 160 000 ml In Empty Bag 1 bag @ 1 ML/KG/HR 100 mls/hr IV .Q10H [facility] Rx#: [id number] Intake, IV Titration 90.783 112.884 Amount Heparin Sod,Pork in 0.45% 90.783 112.884 NaCl 25,000 unit In 0.45 % NaCl 1 250ml.bag @ 10 UNITS/KG/HR 10 mls/hr IV .Q24H [facility] Rx#:[id number] Oral 610 Output: Urine 1000 Other: # Voids 2 - Labs CBC & Chem 7: 08/10/18 05:55 06/18/19 11:12 Labs: Abnormal Lab Results - Last 24 Hours (Table) 08/09/18 08/09/18 08/09/18 Range/Units 11:12 11:12 11:26 APTT 34.8 H (22.0-30.0) sec POC Glucose (mg/dL) 159 H (75-99) mg/dL Troponin I 7.600 H* (0.000-0.034) ng/mL Triglycerides (<150) mg/dL Cholesterol (<200) mg/dL LDL Cholesterol, Calc (0-99) mg/dL 08/09/18 08/09/18 08/09/18 Range/Units 16:52 18:48 21:54 APTT 62.0 H (22.0-30.0) sec POC Glucose (mg/dL) 180 H 124 H (75-99) mg/dL Troponin I (0.000-0.034) ng/mL Triglycerides (<150) mg/dL Cholesterol (<200) mg/dL LDL Cholesterol, Calc (0-99) mg/dL 08/10/18 08/10/18 08/10/18 Range/Units 05:55 05:55 09:58 APTT 51.7 H (22.0-30.0) sec POC Glucose (mg/dL) 128 H (75-99) mg/dL Troponin I (0.000-0.034) ng/mL Triglycerides 183 H (<150) mg/dL Cholesterol 239 H (<200) mg/dL LDL Cholesterol, Calc 159 H (0-99) mg/dL Assessment and Plan Plan: Assessment: 1. End-stage renal disease maintained on hemodialysis on a Wednesday schedule for left upper extremity AV fistula. 2. A. fib with RVR. Status post Cardizem drip. Maintained on IV heparin and Lopressor. 3. Insulin-dependent diabetes mellitus. 4. Chronic kidney disease mineral bone disease maintained on PhosLo. 5. Hypokalemia. This was checked after he completed hemodialysis yesterday t herefore was not accurate. Repeat normal. 6. Chest pain. Patient does have history of coronary artery disease. Scheduled for cardiac catheterization today. Plan: Hemodialysis today.
[2018-08-10 11:49] LABS: Glucose,Whole Blood 103 mg/dL (75-99)
[2018-08-10] MEDS ORDERED: IV FLUID CONTINUATION 1,000 ML IV ONE (12:59)
[2018-08-10] MEDS ORDERED: LIDOCAINE 1% INJ 10MG/ML (20 ML MDV) ONE (12:59)
[2018-08-10] MEDS: MIDAZOLAM (PF) 2 MG/2 ML VIAL IVP ONE ×2 (13:26→13:31)
[2018-08-10] MEDS: LIDOCAINE 1% INJ 10MG/ML (20 ML MDV) SQ ONE ×2 (13:29→13:33)
[2018-08-10] MEDS ORDERED: NITROGLYCERIN 1000MCG/10ML SYRINGE INTRACORON ONE (13:37)
[2018-08-10] MEDS ORDERED: IOPAMIDOL-370 125ML BTL INJ ONE (13:46)
--- NOTE | 2018-08-10 13:50 | P.PN ---
Subjective Progress Note Date: 08/10/18 Principal diagnosis: Non-ST [place], new onset of A. fib with RVR, history of coronary disease, diastolic and his heart failure, end-stage renal disease, diabetic polyneuropathy, hypert ension This is a 58-year-old male patient of Dr Mckeon with history of hypertension and hypertensive cardio vascular disease with left ventricular hypertrophy, coronary artery disease, chronic diastolic heart failure, end-stage renal disease on hemodialysis 3 times weekly, hyperlipidemia, diabetes mellitus type II. Patient had recent angioplasty and stenting of the first obtuse ma rginal branch of the circumflex on March [address] Bowie. Patient was also found to have a chronically totally occluded RCA fills with collaterals from the left system, intermediate disease in the LAD. He has also had recent angioplasty of the fistula to the left arm done by Dr. Santizo at [facility]. Patient had recent hospitalization on August 05 for symptoms of chest discomfort, he was seen in consultation by Dr. Hall and recommended to be discharged home to follow-up in the office post discharge for outpatient stress testing. Patient gives history that he was at hemodialysis treatment center today and was feeling fine when he first started. By the end of his dial ysis treatment he could feel that he had a rapid heart rate, nausea, chest pain and shortness of breath. Staff did an EKG and he was found to be in atrial fibrillation and patient was instructed to come into the hospital for evaluation. Patient presented to [facility] emergency center for further evaluation and treatment. His EKG on admission here showed atrial fibrillation with a rapid ventricular response, nonspecific ST-T changes in the lateral leads. Patient denies any prior history of atrial fibrillation. Chest x-ray does not show any acute cardiopulmonary disease. Blood pressure on arrival here 108/60 with a heart rate of 120, 96% on room air. Laboratory data was reviewed, white blood cell count 10.1, hemoglobin 10.6, platelet count 241. Sodium 137, potassium 3.2, BUN 26 and creatinine 2.3. Magnesium 2.0, troponins 0.040, 2.5 and 7.6. TSH is 1.150, free T4 1.51 and free T3 3.3. Lipid panel from August 06 reveals triglycerides 212, cholesterol 251, LDL 170, HDL 39. Patient was initially started on Cardizem and heparin drips and admitted to the cardiac stepdown unit and cardiology consult requested. 08/10: Patient troponin is quite bit high last night and scheduled for heart cath this morning, Real colvin with RVR had subtle down quite bed patient remain on anticoagulation and will be switch to oral anticoagulation along with higher dose of metoprolol after the cath is complete. Objective - Vital Signs Vital signs: Vital Signs Temp 97.6 F 08/10/18 12:00 Pulse 68 08/10/18 12:00 Resp 20 08/10/18 12:00 BP 127/81 08/10/18 12:00 Pulse Ox 98 08/10/18 12:00 Intake & Output 08/09/18 08/10/18 08/10/18 18:59 06:59 18:59 Intake Total 976.783 112.884 Output Total 1000 Balance -23.217 112.884 Weight 100.8 kg Intake: IV 276 Heparin Sod,Pork in 0.45% 116 NaCl 25,000 unit In 0.45 % NaCl 1 250ml.bag @ 10 UNITS/KG/HR 10 mls/hr IV .Q24H [facility] Rx#:[id number] Sodium Chloride 0.9% 1, 160 000 ml In Empty Bag 1 bag @ 1 ML/KG/HR 100 mls/hr IV .Q10H [facility] Rx#: [id number] Intake, IV Titration 90.783 112.884 Amount Heparin Sod,Pork in 0.45% 90.783 112.884 NaCl 25,000 unit In 0.45 % NaCl 1 250ml.bag @ 10 UNITS/KG/HR 10 mls/hr IV .Q24H [facility] Rx#:[id number] Oral 610 Output: Urine 1000 Other: # Voids 2 1 - Exam Review of Systems All systems: negative Constitutional: Denies chills, Denies fever, Denies malaise, Denies poor appetite, Denies weakness Eyes: denies blurred vision, denies pain Ears, nose, mouth and throat: Denies dysphagia, Denies headache, Denies nasal congestion, Denies sore throat Cardiovascular: Reports chest pain, Reports shortness of breath, Denies decreased exercise tolerance, Denies dyspnea on exertion, Denies edema, Denies lightheadedness Respiratory: Denies cough Gastrointestinal: Reports nausea, Denies abdominal pain, Denies diarrhea, Denies vomiting Genitourinary: Denies dysuria, Denies urinary retention Musculoskeletal: Denies myalgias Integumentary: Denies pruritus, Denies rash, Denies wounds Neurological: Denies aphasia, Denies change in mentation, Denies change in speech, Denies numbness, Denies weakness Psychiatric: Denies anxiety, Denies depression Endocrine: Denies fatigue, Denies weight change Physical examination: General Appearance: Alert, cooperative, no distress, appears stated age. Neck HEENT: Supple, no lymphadenopathy, no thyroid enlargement, no carotid bruits. Lungs: Decrease breath some both side with fine rhonchi no crackles. Chest Wall: Decrease expansion with deep inspiration no tenderness and no deform ity was found on exam, no costochondral pain or discomfort. Heart: Irregular rate and rhythm, S1, S2 normal, no murmur, rub or gallop. Back: Symmetric, no curvature, ROM normal, no CVA tenderness. Abdomen: Soft, non-tender, bowel sounds active all four quadrants, no masses, no organomegaly. Extremities: Extremities normal, atraumatic, no cyanosis, Trace edema. Pulses: 2+ and symmetric. Skin: Skin color, texture, tugor normal, no rashes or lesions. Neurologic: Alert oriented x3 cranial nerves II through XII intact, no motor deficit, no abnormal balance or gait. - Labs CBC & Chem 7: 08/10/18 05:55 08/09/18 11:12 Labs: Abnormal Lab Results - Last 24 Hours (Table) 08/09/18 08/09/18 08/09/18 Range/Units 16:52 18:48 21:54 APTT 62.0 H (22.0-30.0) sec POC Glucose (mg/dL) 180 H 124 H (75-99) mg/dL Triglycerides (<150) mg/dL Cholesterol (<200) mg/dL LDL Cholesterol, Calc (0-99) mg/dL 08/10/18 08/10/18 08/10/18 Range/Units 05:55 05:55 09:58 APTT 51.7 H (22.0-30.0) sec POC Glucose (mg/dL) 128 H (75-99) mg/dL Triglycerides 183 H (<150) mg/dL Cholesterol 239 H (<200) mg/dL LDL Cholesterol, Calc 159 H (0-99) mg/dL 08/10/18 Range/Units 11:37 APTT (22.0-30.0) sec POC Glucose (mg/dL) 103 H (75-99) mg/dL Triglycerides (<150) mg/dL Cholesterol (<200) mg/dL LDL Cholesterol, Calc (0-99) mg/dL Assessment and Plan Plan: 1. Non-ST elevation [place]. Continue aspirin 81 mg orally once every day, Plavix 75 mg orally once every day, Lopressor 12.5 mg orally twice every day, Lipitor 80 mg once every day. Heart catheter will be done today to determine further management if there is any new blockage or not. 2. New onset atrial fibrillation with rapid ventricular response, paroxysmal atrial fibrillation. Patient will be off heparin drips and Cardizem with titrate beta alyssa if able to tolerated oral anticoagulation with Eliquis 2.5 mg twice a day might be done 3. History of coronary artery disease and non-ST elevated myocardial infarction with previous left heart catheterization angioplasty and stenting of the first obtuse marginal branch of the circumflex on March [address] Bowie. Patient was also found to have a chronically totally occluded RCA fills with collaterals from the left system, intermediate disease in the LAD. 3. Chronic diastolic heart failure. Continue Lasix 80 mg daily. 4. Diabetes mellitus type 2. Continue patient on Levemir 30 units at bedtime along with a sliding scale insulin. 5. End-stage renal disease on hemodialysis 3 times weekly. Consult with nephrology. 6. Diabetic polyneuropathy. Continue gabapentin 300 mg at bedtime. 7. Hypertension and hypertensive cardio vascular disease with left ventricular hypertrophy. Continue Lopressor. 6. History of restless leg syndrome. Stable at this time. 7. History of gout. Continue allopurinol 150 mg orally once every day. 8. DVT prophylaxis. Heparin drip. 9. GI prophylaxis. Continue with Protonix 40 mg orally once every day. 10. Patient is full code.
[2018-08-10] MEDS ORDERED: RX INFO: IV CONTRAST WAS GIVEN 1 EACH MISC MISCELLANE PRN (13:54)
[2018-08-10] MEDS ORDERED: SODIUM CHLORIDE 0.9% 1,000 ML IV SCH (14:00)
[2018-08-10] MEDS: LIDOCAINE 2% GEL 30 ML TUBE TOPICAL SCH (16:10)
[2018-08-10 16:49] LABS: Glucose,Whole Blood 113 mg/dL (75-99)
[2018-08-10] MEDS: INSULIN DETEMIR (LEVEMIR) 100 UNIT/ML SYR SQ SCH (17:27)
[2018-08-10] MEDS: FUROSEMIDE 80 MG TAB PO SCH (17:31)
--- NOTE | 2018-08-10 19:28 | CC ---
CARDIAC CATHETERIZATION REPORT DATE OF SERVICE: August 10, 2018. PERFORMING PHYSICIAN: Andry Bowie MD, hot head machine operator. PROCEDURE PERFORMED: 1. Selective left coronary angiogram. 2. Left heart catheterization. INDICATION: This is a 58-year-old gentleman with history of end-stage renal disease currently on dialysis as well as history of coronary artery disease with known chronic total occlusion of the right coronary artery which fills by collaterals from the left coronary system and severe disease involving the left circumflex where he underwent in the past stenting of the left circumflex, presented to the hospital with symptoms of shortness of breath and he was ruled in for acute non ST elevation myocardial infarction. Because of that, a heart catheterization was advised. APPROACH: Right common femoral artery. COMPLICATIONS: None. LEVEL OF SEDATION: Moderate with sedation length of 19 minutes. PROCEDURE DESCRIPTION: After obtaining an informed consent, the patient was brought to the cardiac blood and plasma laboratory assistant. The right common femoral artery was cannulated using micropuncture technique, the micropuncture wire passed easily. Then I placed a 6-Polish sheath in the right common femoral artery. After that, I did selective left coronary angiogram using JL4 short tip guide. I did not perform selective right coronary angio angiogram because the right coronary artery is known to be occluded from before. The left heart catheterization was performed using 6 Polish pigtail catheter. The procedure was completed without any complication. SELECTIVE CORONARY ANGIOGRAM: 1. The left main does not exist. 2. The left circumflex and LAD have different origin from the aorta. 3. The left circumflex is a large caliber vessel. It is dominant vessel. The proximal circumflex is angiographically normal and gives rise into first OM branch which is stented and the stent is patent. The mid circumflex is normal and the circumflex distally bifurcates into PDA and PLV branches, both appear to be angiographically normal. 4. The ostial LAD has a lesion, appeared to be in the range of 50% to 60%. The proximal LAD has another tubular lesion in the range of 60%. The LAD in the midportion has another long tubular lesion in the range of 60%. The LAD distally appeared to have mild disease only. The LAD gives rise into first and second diagonal branches, both appear to have severe diffuse disease, but both are small to medium caliber vessels only. HEMODYNAMICS: The left ventricular end-diastolic pressure was about 20 mmHg without significant gradient across the aortic valve. CONCLUSION: 1. 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 The RCA fills by collaterals from the left coronary system. 2. Patent stent in the left circumflex coronary artery. 3. The LAD has intermediate disease involving the LAD in its ostium, proximal, and midportion. POSTPROCEDURE MANAGEMENT: 1. Given the above anatomy, I recommend maximized medical treatment and follow up with the patient. 2. Probably as an outpatient, myocardial perfusion imaging stress test for ischemia in the LAD territory. 3. If the stress test shows any ischemia in the LAD, we might ostial LAD which has separate origin from the aorta. MMODL / IJN: [id number] /
[2018-08-10 19:48] LABS: Hepatitis B Surface AB- Quant 359.5 mIU/mL
[2018-08-10] MEDS: GABAPENTIN 300 MG CAP PO SCH (20:21)
[2018-08-10 21:01] LABS: Glucose,Whole Blood 166 mg/dL (75-99)
[2018-08-11] MEDS: HEPARIN SOD,PORK IN 0.45% NACL 25,000 UNIT in 0.45% NACL 1 250ML.BAG IV SCH (03:02)
[2018-08-11 06:13] LABS: Glucose,Whole Blood 175 mg/dL (75-99)
[2018-08-11 06:21] LABS: Mean Platelet Volume 6.9; Platelet Count 220 k/uL (150-450)
[2018-08-11] MEDS: PANTOPRAZOLE 40 MG TABLET PO SCH (07:00)
[2018-08-11] MEDS: CALCIUM ACETATE 667 MG CAP PO SCH ×2 (07:00→11:55)
[2018-08-11] MEDS: INSULIN ASPART (NovoLOG) 100 UNIT/ML VIAL SQ SCH ×2 (07:01→11:56)
[2018-08-11] MEDS: METOPROLOL TARTRATE 12.5 MG TAB PO SCH (08:36)
[2018-08-11] MEDS: ALLOPURINOL 300 MG TAB PO SCH (08:36)
[2018-08-11] MEDS: CLOPIDOGREL 75 MG TAB PO SCH (08:36)
[2018-08-11] MEDS: FUROSEMIDE 80 MG TAB PO SCH (08:36)
[2018-08-11] MEDS: INSULIN DETEMIR (LEVEMIR) 100 UNIT/ML SYR SQ SCH (08:42)
[2018-08-11] MEDS ORDERED: RIVAROXABAN 15 MG TAB PO SCH ×2 (09:00→17:30)
[2018-08-11] MEDS ORDERED: ASPIRIN 81 MG PO SCH (09:00)
[2018-08-11] MEDS ORDERED: ATORVASTATIN 80 MG TAB PO SCH (09:00)
--- NOTE | 2018-08-11 09:50 | P.PN ---
Subjective Patient is seen in follow-up for end-stage renal disease. He is maintained on hemodialysis on a Wednesday schedule. Patient presented to the hospital with chest pain. He was noted to be in A. fib with RVR. Heart rate is controlled. He also underwent cardiac catheterization yesterday which revealed chronic RCA occlusion with intermediate disease in the LAD. No active chest pain or shortness of breath. Tolerated hemodialysis well yesterday. Vital signs are stable. General: The patient appeared well nourished and normally developed. HEENT: Head exam is unremarkable. Neck is without jugular venous distension. LUNGS: Lungs are clear to auscultation and percussion. Breath sounds decreased. HEART: Rate and Rhythm are regular. First and second heart sounds normal. No murmurs, rubs or gallops. ABDOMEN: Abdominal exam reveals normal bowel sounds. Non-tender and non- distended. No evidence of peritonitis. EXTREMITITES: No clubbing, cyanosis, or edema. Objective - Vital Signs Vital signs: Vital Signs Temp 99.0 F 08/11/18 03:53 Pulse 75 08/11/18 03:53 Resp 18 08/11/18 03:53 BP 151/73 08/11/18 03:53 Pulse Ox 96 08/11/18 03:53 Intake & Output 08/10/18 08/11/18 08/11/18 18:59 06:59 18:59 Intake Total 698 240 Output Total 2001 Balance 698 -2001 240 Weight 99.3 kg Intake: IV 698 Heparin Sod,Pork in 0.45% 48 NaCl 25,000 unit In 0.45 % NaCl 1 250ml.bag @ 10 UNITS/KG/HR 10 mls/hr IV .Q24H [facility] Rx#:[id number] Sodium Chloride 0.9% 1, 600 000 ml In Empty Bag 1 bag @ 1 ML/KG/HR 100 mls/hr IV .Q10H [facility] Rx#: [id number] Oral 240 Output: Urine 2 Hemodialysis 1999 Other: # Voids 1 1 - Labs CBC & Chem 7: 08/11/18 05:36 08/09/18 11:12 Labs: Abnormal Lab Results - Last 24 Hours (Table) 08/10/18 08/10/18 08/10/18 Range/Units 05:55 09:58 11:37 POC Glucose (mg/dL) 128 H 103 H (75-99) mg/dL Hep Bs Antibody Reactive H (Non-Reactive) 08/10/18 08/10/18 08/11/18 Range/Units 16:38 20:59 06:06 POC Glucose (mg/dL) 113 H 166 H 175 H (75-99) mg/dL Hep Bs Antibody (Non-Reactive) Assessment and Plan Plan: Assessment: 1. End-stage renal disease maintained on hemodialysis on a Wednesday schedule for left upper extremity AV fistula. 2. A. fib with RVR. Status post Cardizem drip. Maintained on anticoagulation and Lopressor. 3. Insulin-dependent diabetes mellitus. 4. Chronic kidney disease mineral bone disease maintained on PhosLo. 5. Hypokalemia. This was checked after he completed hemodialysis yesterday the refore was not accurate. Repeat normal. 6. Chest pain. Patient does have history of coronary artery disease. Status post cardiac catheterization in August 10 which revealed chronic occlusion of the RCA and intermediate disease in LAD. He will undergo stress test outpatient. Plan: Hemodialysis tomorrow. Stable to be discharged home from nephrology standpoint.
[2018-08-11 11:30] LABS: Glucose,Whole Blood 263 mg/dL (75-99)
[2018-08-11] MEDS: LIDOCAINE 2% GEL 30 ML TUBE TOPICAL SCH (11:35)
[2018-08-11 11:39] VITALS: BP 148/78; PULSE 67; RESP 16; TEMP 98.2
--- NOTE | 2018-08-11 13:13 | P.DS ---
Providers Date of admission: 08/09/18 00:33 Attending physician: Perry Christian Consults: 08/09/18 00:31 Consult Physician Urgent Consulting Provider: Reese Verma Consult Reason/Comments: A. fib w rvr Do you want consulting provider notified?: Yes 08/09/18 11:42 Consult Physician Routine Consulting Provider: Migel Edmondson Consult Reason/Comments: ESRD Do you want consulting provider notified?: Yes Primary care physician: [facility] Hospital Course: Principal diagnosis: Non-ST [place], new onset of A. fib with RVR, history of coronary disease, diastolic and his heart failure, end-stage renal disease, diabetic polyneuropathy, hypertension This is a 58-year-old male patient of Dr Mckeon with history of hypertension and hypertensive cardio vascular disease with left ventricular hypertrophy, coronary artery disease, chronic diastolic heart failure, end-stage renal disease on hemodialysis 3 times weekly, hyperlipidemia, diabetes mellitus type II. Patient had recent angioplasty and stenting of the first obtuse marginal branch of the circumflex on March [address] Bowie. Patient was also found to have a chronically totally occluded RCA fills with collaterals from the left system, intermediate disease in the LAD. He has also had recent angioplasty of the fistula to the left arm done by Dr. Santizo at [facility]. Patient had recent hospitalization on August 05 for symptoms of chest discomfort, he was seen in consultation by Dr. Hall and recommended to be discharged home to follow-up in the office post discharge for outpatient stress testing. Patient gives history that he was at hemodialysis treatment center today and was feeling fine when he first started. By the end of his dialysis treatment he could feel that he had a rapid heart rate, nausea, chest pain and shortness of breath. Staff did an EKG and he was found to be in atrial fibrillation and patient was instructed to come into the hospital for evaluation. Patient presented to [facility] emergency center for further evaluation and treatment. His EKG on admission here showed atrial fibrillation with a rapid ventricular response, nonspecific ST-T changes in the lateral leads. Patient denies any prior history of atrial fibrillation. Chest x-ray does not show any acute cardiopulmonary disease. Blood pressure on arrival here 108/60 with a heart rate of 120, 96% on room air. Laboratory data was reviewed, white blood cell count 10.1, hemoglobin 10.6, platelet count 241. Sodium 137, potassium 3.2, BUN 26 and creatinine 2.3. Magnesium 2.0, troponins 0.040, 2.5 and 7.6. TSH is 1.150, free T4 1.51 and free T3 3.3. Lipid panel from August 06 reveals triglycerides 212, cholesterol 251, LDL 170, HDL 39. Patient was initially started on Cardizem and heparin drips and admitted to the cardiac stepdown unit and cardiology consult requested. 08/10: Patient troponin is quite bit high last night and scheduled for heart cath this morning, Real colvin with RVR had subtle down quite bed patient remain on anticoagulation and will be switch to oral anticoagulation along with higher dose of metoprolol after the cath is complete. 08/11: Patient ended up going for heart cath yesterday finding consistent with mild coronary artery disease no angioplasty and stent placement was require patient was placed on medical management only. Patient Real colvin had subtle down quite bed on beta alyssa and was switched to Xarelto 15 mg daily with his kidney function we'll continue on it as an outpatient. Patient is stable to be discharged home today. Review of Systems All systems: negative Constitutional: Denies chills, Denies fever, Denies malaise, Denies poor appetite, Denies weakness Eyes: denies blurred vision, denies pain Ears, nose, mouth and throat: Denies dysphagia, Denies headache, Denies nasal congestion, Denies sore throat Cardiovascular: Reports chest pain, Reports shortness of breath, Denies decreased exercise tolerance, Denies dyspnea on exertion, Denies edema, Denies lightheadedness Respiratory: Denies cough Gastrointestinal: Reports nausea, Denies abdominal pain, Denies diarrhea, Denies vomiting Genitourinary: Denies dysuria, Denies urinary retention Musculoskeletal: Denies myalgias Integumentary: Denies pruritus, Denies rash, Denies wounds Neurological: Denies aphasia, Denies change in mentation, Denies change in speech, Denies numbness, Denies weakness Psychiatric: Denies anxiety, Denies depression Endocrine: Denies fatigue, Denies weight change Physical examination: General Appearance: Alert, cooperative, no distress, appears stated age. Neck HEENT: Supple, no lymphadenopathy, no thyroid enlargement, no carotid bruits. Lungs: Decrease breath some both side with fine rhonchi no crackles. Chest Wall: Decrease expansion with deep inspiration no tenderness and no deformity was found on exam, no costochondral pain or discomfort. Heart: Irregular rate and rhythm, S1, S2 normal, no murmur, rub or gallop. Back: Symmetric, no curvature, ROM normal, no CVA tenderness. Abdomen: Soft, non-tender, bowel sounds active all four quadrants, no masses, no organomegaly. Extremities: Extremities normal, atraumatic, no cyanosis, Trace edema. Pulses: 2+ and symmetric. Skin: Skin color, texture, tugor normal, no rashes or lesions. Neurologic: Alert oriented x3 cranial nerves II through XII intact, no motor deficit, no abnormal balance or gait. Assessment and Plan Plan: 1. Non-ST elevation [place]. Continue aspirin 81 mg orally once every day, Plavix 75 mg orally once every day, Lopressor 12.5 mg orally twice every day, Lipitor 80 mg once every day. Heart catheter will be done today to determine further management if there is any new blockage or not. 2. New onset atrial fibrillation with rapid ventricular response, paroxysmal atrial fibrillation. Patient will be off heparin drips and Cardizem with titrate beta alyssa if able to tolerated oral anticoagulation with Xarelto 15 mg daily. 3. History of coronary artery disease and non-ST elevated myocardial infarction with previous left heart catheterization angioplasty and stenting of the first obtuse marginal branch of the circumflex on March [address] Bowie. Patient was also found to have a chronically totally occluded RCA fills with collaterals from the left system, intermediate disease in the LAD. 3. Chronic diastolic heart failure. Continue Lasix 80 mg daily. 4. Diabetes mellitus type 2. Continue patient on Levemir 30 units at bedtime along with a sliding scale insulin. 5. End-stage renal disease on hemodialysis 3 times weekly. Consult with nephrology. 6. Diabetic polyneuropathy. Continue gabapentin 300 mg at bedtime. 7. Hypertension and hypertensive cardio vascular disease with left ventricular hypertrophy. Continue Lopressor. 6. History of restless leg syndrome. Stable at this time. 7. History of gout. Continue allopurinol 150 mg orally once every day. His done very well after the heart cath, medication were adjusted patient will be going home on Xarelto metoprolol and medical management for his coronary artery disease. Plan - Discharge Summary New Discharge Prescriptions: New Atorvastatin [Lipitor] 80 mg PO DAILY #30 tab Metoprolol Tartrate [Lopressor] 12.5 mg PO BID #60 tab Pantoprazole [Protonix] 40 mg PO AC-BRKFST #30 tablet. Rivaroxaban [Xarelto] 15 mg PO W/SUPPER #30 tab Continue Clopidogrel [Plavix] 75 mg PO DAILY #30 tab Nitroglycerin Sl Tabs [Nitrostat] 0.4 mg SUBLINGUAL Q5M PRN #25 tab PRN Reason: Chest Pain Insulin Glargine,Hum.rec.anlog [Basaglar Kwikpen U-100] 30 unit SQ DAILY Gabapentin [Neurontin] 300 mg PO HS Furosemide [Lasix] 80 mg PO DAILY Allopurinol [Zyloprim] 150 mg PO DAILY Insulin Aspart [NovoLOG Flexpen] See Protocol SQ ACHS Calcium Acetate [PhosLo] 667 mg PO TID LORazepam [Ativan] 2 mg PO HS PRN PRN Reason: anxiety Aspirin EC [Ecotrin Low Dose] 81 mg PO DAILY #1 tablet.dr Discharge Medication List Clopidogrel [Plavix] 75 mg PO DAILY #30 tab 03/05/18 [Rx] Nitroglycerin Sl Tabs [Nitrostat] 0.4 mg SUBLINGUAL Q5M PRN #25 tab 03/05/18 [Rx] Insulin Glargine,Hum.rec.anlog [Basaglar Kwikpen U-100] 30 unit SQ DAILY 03/24/18 [History] Allopurinol [Zyloprim] 150 mg PO DAILY 08/05/18 [History] Calcium Acetate [PhosLo] 667 mg PO TID 08/05/18 [History] Furosemide [Lasix] 80 mg PO DAILY 08/05/18 [History] Gabapentin [Neurontin] 300 mg PO HS 08/05/18 [History] Insulin Aspart [NovoLOG Flexpen] See Protocol SQ ACHS 08/05/18 [History] LORazepam [Ativan] 2 mg PO HS PRN 08/05/18 [History] Aspirin EC [Ecotrin Low Dose] 81 mg PO DAILY #1 tablet. 08/06/18 [Rx] Atorvastatin [Lipitor] 80 mg PO DAILY #30 tab 08/11/18 [Rx] Metoprolol Tartrate [Lopressor] 12.5 mg PO BID #60 tab 08/11/18 [Rx] Pantoprazole [Protonix] 40 mg PO AC-BRKFST #30 tablet. 08/11/18 [Rx] Rivaroxaban [Xarelto] 15 mg PO W/SUPPER #30 tab 08/11/18 [Rx] Follow up Appointment(s)/Referral(s): Janine Nguyen MD [STAFF PHYSICIAN] - 1 Week Andry Bowie MD [STAFF PHYSICIAN] - 08/16/18 3:45 pm (Wednesday) Ten Mckeon DO [Primary Care Provider] - 1-2 days (Spoke to medical office receptionist assistant. Office will call with appointment time) Patient Instructions/Handouts: *Surgery [facility] - After Heart Catheterization - [place] Supervisor Instructions, A-fib (Atrial Fibrillation) (DC), Safe Use of Anticoagulants (DC) Activity/Diet/Wound Care/Special Instructions: Xarelto copay is $3.80/month. Discharge Disposition: HOME SELF-CARE
--- NOTE | 2018-08-11 14:10 | P.PN ---
Subjective Progress Note Date: 08/11/18 This is a 58-year-old gentleman with history of hypertension, hyperlipidemia, diabetes, end-stage renal disease on hemodialysis who underwent angioplasty and stenting of the first obtuse marginal branch of the circumflex on March [address] Hinojosa, he follows with Dr. VC Kemp in the office. Ortiz andrew was also found to have a chronically totally occluded RCA fills with collaterals from the left system, intermediate disease in the LAD. He had a subsequent admission to the hospital recently with symptoms of chest discomfort, he was seen in consultation by Dr. Hall and recommended to be discharged home to follow-up in the office post discharge. According to the patient, he was at dialysis yesterday, developed some chest discomfort with subsequent palpitations. He became quite nauseated, short of breath and lightheaded. The nurse checked his heart rate while at dialysis and noted it to be irregular and he was advised to come to the emergency room for further evaluation and t reatment. His EKG on admission here showed atrial fibrillation with a rapid ventricular response, nonspecific ST-T changes in the lateral leads. Patient denies any prior history of atrial fibrillation. Chest x-ray does not show any acute cardiopulmonary disease. Blood pressure on arrival here 108/60 with a heart rate of 120, 96% on room air. Laboratory data was reviewed, white blood cell count 10.1, hemoglobin 10.6, platelet count 241. Sodium 137, potassium 3.2, BUN 26 and creatinine 2.3. Magnesium 2.0, troponins 0.040, 2.5. TSH is 1.1, free T4 1 0.5 and free T3 3 0.3. At the time of my examination this morning, patient is currently chest pain-free, denies any nausea. 08/11/2018 Patient underwent a cardiac catheterization yesterday which revealed a chronically occluded right renal artery which is known from before, the RCA fills by collaterals from the left coronary system, patent stent in the circumflex. The LAD has intermediate disease in its ostium, proximal portion, and midportion. Given the above anatomy, the recommendation was to continue with medical therapy. On discharge the patient will have an outpatient stress test, if there is ischemia noted in the anterior distribution, PCI of the LAD will be performed. The patient was seen and examined this morning, feels well, denies any chest pain or difficulty in breathing. His Xarelto 15 mg has been resumed, he will continue this along with the aspirin 81 mg and Plavix 75 mg, after one month the aspirin will drop off Objective - Vital Signs Vital signs: Vital Signs Temp 98.2 F 08/11/18 11:37 Pulse 67 08/11/18 11:41 Resp 16 08/11/18 11:41 BP 148/78 08/11/18 11:37 Pulse Ox 97 08/11/18 11:37 Intake & Output 08/10/18 08/11/18 08/11/18 18:59 06:59 18:59 Intake Total 698 280 Output Total 2001 Balance 698 -2001 280 Weight 99.3 kg Intake: IV 698 40 Heparin Sod,Pork in 0.45% 48 NaCl 25,000 unit In 0.45 % NaCl 1 250ml.bag @ 10 UNITS/KG/HR 10 mls/hr IV .Q24H [facility] Rx#:[id number] Invasive Line 1 20 Invasive Line 2 20 Sodium Chloride 0.9% 1, 600 000 ml In Empty Bag 1 bag @ 1 ML/KG/HR 100 mls/hr IV .Q10H [facility] Rx#: [id number] Oral 240 Output: Urine 2 Hemodialysis 1999 Other: # Voids 1 1 - Exam PHYSICAL EXAMINATION: GENERAL: 58-year-old gentleman in no acute distress at the time of my examination HEENT: Head is atraumatic, normocephalic. Pupils equal, round. Sclera anicteric. Conjunctiva are clear. Mucous membranes of the mouth are moist. Neck is supple. There is no elevated jugular venous pressure. No carotid bruit is heard. HEART EXAMINATION: Heart S1, S2 normal. No murmur or gallop heard. CHEST EXAMINATION: Lungs are clear to auscultation and precussion. No chest wall tenderness is noted on palpation or with deep breathing. ABDOMEN: Soft, nontender. Bowel sounds are heard. No organomegaly noted. EXTREMITIES: 2+ peripheral pulses with no evidence of peripheral edema and no calf tenderness noted. NEUROLOGIC patient is awake, alert and oriented X3. - Labs CBC & Chem 7: 08/11/18 05:36 08/09/18 11:12 Labs: Abnormal Lab Results - Last 24 Hours (Table) 08/10/18 08/10/18 08/10/18 Range/Units 05:55 16:38 20:59 POC Glucose (mg/dL) 113 H 166 H (75-99) mg/dL Hep Bs Antibody Reactive H (Non-Reactive) 08/11/18 08/11/18 Range/Units 06:06 11:26 POC Glucose (mg/dL) 175 H 263 H (75-99) mg/dL Hep Bs Antibody (Non-Reactive) Assessment and Plan Plan: Assessment and plan #1 atrial fibrillation with rapid ventricular response, paroxysmal, patient currently in normal sinus rhythm #2 known history of coronary artery disease, most recent stent placement was in February of this year at which time patient underwent stenting of the first obtuse marginal branch of the circumflex. He was also found at that time to have a chronically occluded RCA and intermediate disease in the LAD. #3 hypertension #4 hyperlipidemia #5 diabetes #6 chronic renal failure, undergoes dialysis #7 abnormal troponin, 0.040, 2.5. #8 hypokalemia #9 status post cardiac catheterization, medical therapy advised. Plan We will put the patient back on xarelto 15 mg daily, along with baby aspirin and Plavix, this will be continued for one month and then the aspirin will drop off. Patient may be discharged home today from our perspective, follow-up appointmen t in the office with Dr. VC Kemp post discharge. DNP note has been reviewed, I agree with a documented findings and plan of care. Patient was seen and examined.
== END 2018-08-11 13:24 | disposition home or self-care (01) | DRG 280 ==
LOC: EC 22:08 → 3SCARD 08-09 00:33
PROVIDERS: ADMIT Internal Medicine Geriatric Medicine; ATTEND Internal Medicine Geriatric Medicine
PROC: B2111ZZ Fluoroscopy of Multiple Coronary Arteries using Low Osmolar Contrast (ICD-10-PCS; 2018-08-10)
PROC: 5A1D70Z Performance of Urinary Filtration, Intermittent, Less than 6 Hours Per Day (ICD-10-PCS; 2018-08-10)
PROC: 4A023N7 Measurement of Cardiac Sampling and Pressure, Left Heart, Percutaneous Approach (ICD-10-PCS; principal; 2018-08-10 11:40)
DX: I21.4 Non-ST elevation (NSTEMI) myocardial infarction (principal); N18.6 End stage renal disease; I13.2 Hypertensive heart and chronic kidney disease with heart failure and with stage 5 chronic kidney disease, or end stage renal disease; I50.32 Chronic diastolic (congestive) heart failure; E11.22 Type 2 diabetes mellitus with diabetic chronic kidney disease; E11.42 Type 2 diabetes mellitus with diabetic polyneuropathy; E83.9 Disorder of mineral metabolism, unspecified; I48.0 Paroxysmal atrial fibrillation; G25.81 Restless legs syndrome; E87.6 Hypokalemia; I25.10 Atherosclerotic heart disease of native coronary artery without angina pectoris; K21.9 Gastro-esophageal reflux disease without esophagitis; E78.5 Hyperlipidemia, unspecified; I25.2 Old myocardial infarction; M10.9 Gout, unspecified; H91.90 Unspecified hearing loss, unspecified ear; H54.8 Legal blindness, as defined in USA; Z79.82 Long term (current) use of aspirin; Z79.02 Long term (current) use of antithrombotics/antiplatelets; Z79.4 Long term (current) use of insulin; Z79.899 Other long term (current) drug therapy; Z99.2 Dependence on renal dialysis; Z95.5 Presence of coronary angioplasty implant and graft; Z98.890 Other specified postprocedural states; Z86.010 Personal history of colon polyps; Z87.891 Personal history of nicotine dependence; Z87.11 Personal history of peptic ulcer disease; Z86.59 Personal history of other mental and behavioral disorders; Z88.1 Allergy status to other antibiotic agents; Z88.5 Allergy status to narcotic agent; Z88.0 Allergy status to penicillin; Z88.2 Allergy status to sulfonamides; Z83.49 Family history of other endocrine, nutritional and metabolic diseases; Z80.8 Family history of malignant neoplasm of other organs or systems; Z83.3 Family history of diabetes mellitus; Z82.61 Family history of arthritis
CPT/HCPCS: 36415; 71046; 80053; 80061; 82550; 82553; 83735; 84132; 84439; 84443; 84481; 84484; 85025; 85049; 85610; 85730; 86706; 87340; 90935; 93005; 93306; 93458; 94760; 96365; 96366; 96368; 96376; 99285

== ENCOUNTER 2018-08-26 22:01 | Inpatient (IN) | payer MEDICARE ==
[2018-08-26] MEDS ORDERED: ASPIRIN 81 MG PO STA (22:19)
[2018-08-26 22:32] LABS: Basophils # (A) 0.1 k/uL (0-0.2); Basophils % (A) 1 %; Eosinophils # (A) 0.3 k/uL (0-0.7); Eosinophils % (A) 4 %; HCT 29.9 % (39.0-53.0); HGB 10.2 gm/dL (13.0-17.5); Lymphocytes # (A) 1.1 k/uL (1.0-4.8); Lymphocytes % (A) 12 %; MCH 30.5 pg (25.0-35.0); MCV 89.5 fL (80.0-100.0); Mean Platelet Volume 6.7; Monocytes # (A) 0.4 k/uL (0-1.0); Monocytes % (A) 4 %; Neutrophils # (A) 7.3 k/uL (1.3-7.7); Neutrophils % (A) 77 %; Platelet Count 292 k/uL (150-450); RBC 3.34 m/uL (4.30-5.90); WBC 9.4 k/uL (3.8-10.6)
[2018-08-26 22:41] LABS: Partial Thromboplastin Time 33.4 sec (22.0-30.0); Prothrombin Time 10.5 sec (9.0-12.0)
[2018-08-26 22:42] LABS: Albumin 4.3 g/dL (3.5-5.0); Magnesium 1.8 mg/dL (1.6-2.3); Total Bilirubin 0.7 mg/dL (0.2-1.3); Total Protein 7.2 g/dL (6.3-8.2)
[2018-08-26] MEDS ORDERED: DILTIAZEM DRIP BOLUS FROM BAG 1 MG SOLN IV ONE (22:46)
[2018-08-26] MEDS ORDERED: DILTIAZEM 125 MG in SODIUM CHLORIDE 0.9% 100 ML IV SCH (23:00)
--- NOTE | 2018-08-26 23:03 | XR ---
EXAM: XR Chest, 2 Views CLINICAL HISTORY: ITS.REASON XR Reason: Chest Pain TECHNIQUE: Frontal and lateral views of the chest. COMPARISON: Chest radiograph 08/24/18. FINDINGS: Lungs: Unremarkable. No consolidation. Pleural space: Unremarkable. No pneumothorax. Heart: Cardiomegaly. Mediastinum: Unremarkable. Bones/joints: Degenerative change throughout the spine and acromioclavicular joints. Vasculature: Atherosclerotic calcification of the thoracic aorta. IMPRESSION: 1. No acute cardiopulmonary abnormality. 2. Cardiomegaly.
[2018-08-26] MEDS ORDERED: NALOXONE 0.4 MG/ML 1 ML VIAL IV PRN (23:27)
--- NOTE | 2018-08-26 23:27 | ED ---
General Adult HPI - General Chief complaint: Recheck/Abnormal Lab/Rx Stated complaint: hypotension Time Seen by Provider: 08/26/18 22:06 Source: patient, EMS Mode of arrival: EMS Limitations: no limitations - History of Present Illness Initial comments: Jason chin is a 58-year-old gentleman with an extensive past medical history most significant for end-stage renal disease on dialysis Wednesday, patient also has a recently diagnosed A. fib and was hospitalized for A. fib with RVR recently. Patient presents to ER today via EMS from dialysis. Patient underwent dialysis today, dialysis nurse reported taking 2 L of fluid soft, patient was doing well during dialysis however upon standing he became very lightheaded had a near syncopal event, he was assisted back to the chair and given 2 L of normal saline. Despite being given this he remained tachycardic and hypotensive and decision was made to transfer him to the ER for further evaluation. EMS arrived on scene to find the patient hypotensive with EKG consistent with A. fib with RVR. She denies any chest pain he does feel palpitations and no shortness of breath nausea or vomiting. - Related Data Home Medications Medication Instructions Recorded Confirmed Insulin Glargine,Hum.rec.anlog 30 unit SQ DAILY 03/24/18 08/26/18 [Basaglar Kwikpen U-100] Allopurinol [Zyloprim] 150 mg PO DAILY 08/05/18 08/26/18 Calcium Acetate [PhosLo] 667 mg PO TID 08/05/18 08/26/18 Furosemide [Lasix] 80 mg PO DAILY 08/05/18 08/26/18 Gabapentin [Neurontin] 300 mg PO HS 08/05/18 08/26/18 Insulin Aspart [NovoLOG Flexpen] See Protocol SQ ACHS 08/05/18 08/26/18 LORazepam [Ativan] 2 mg PO HS PRN 08/05/18 08/26/18 Previous Rx's Medication Instructions Recorded Clopidogrel [Plavix] 75 mg PO DAILY #30 tab 03/05/18 Nitroglycerin Sl Tabs [Nitrostat] 0.4 mg SUBLINGUAL Q5M PRN #25 tab 03/05/18 Atorvastatin [Lipitor] 80 mg PO DAILY #30 tab 08/11/18 Metoprolol Tartrate [Lopressor] 12.5 mg PO BID #60 tab 08/11/18 Pantoprazole [Protonix] 40 mg PO AC-BRKFST #30 tablet. 08/11/18 Rivaroxaban [Xarelto] 15 mg PO W/SUPPER #30 tab 08/11/18 Allergies Allergy/AdvReac Type Severity Reaction Status Date / Time codeine AdvReac Hallucinati Verified 08/26/18 22:07 ons morphine AdvReac Confusion Verified 08/26/18 22:07 All antibiotics except Keflex Allergy Unknown Uncoded 08/26/18 22:07 Childhood Review of Systems ROS Statement: Those systems with pertinent positive or pertinent negative responses have been documented in the HPI. ROS Other: All systems not noted in ROS Statement are negative. Past Medical History Past Medical History: Coronary Artery Disease (CAD), Diabetes Mellitus, Dialysis, Eye Disorder, GERD/Reflux, Hyperlipidemia, Hypertension, Myocardial Infarction (TN), Myocardial Infarction (non Q-wave), Renal Disease, Syncope Additional Past Medical History / Comment(s): chronic kidney disease, NEUROPATHY, per old medcial hx ulcer age 17, sinus problems, blind in the right eye, legally blind in left eye Last Myocardial Infarction Date:: 03-03-18, nstemi History of Any Multi-Drug Resistant Organisms: None Reported Past Surgical History: Heart Catheterization With Stent Additional Past Surgical History / Comment(s): left EYE VITRECTOMY february 2017 S AGO AT [place], COLONOSCOPY-POLYPS BENIGN, THRYOID NEEDLE ASPIRATION-NEG, LT LEG SX"HAD A cyst REMOVED", tilt table test in past. DEC 2016 LEFT ARM FI STULA, PD catheter placement, catheter removed, fistula gram with balloon for stenosis Past Anesthesia/Blood Transfusion Reactions: Postoperative Nausea & Vomiting (PONV) Date of Last Stent Placement:: 03-03-18 Past Psychological History: Anxiety, Depression Smoking Status: Former smoker Past Alcohol Use History: None Reported Past Drug Use History: None Reported - Past Family History Father Family Medical History: Cancer, Hyperlipidemia Additional Family Medical History / Comment(s): ? BRAIN CANCER Mother Family Medical History: Diabetes Mellitus, Osteoarthritis (OA) Additional Family Medical History / Comment(s): DJD. MOM IS STILL ALIVE AT AGE 80 Sister(s) Family Medical History: Diabetes Mellitus Brother(s) Family Medical History: Diabetes Mellitus Additional Family Medical History / Comment(s): Patient has 4 kids no major medical problems. General Exam - General Exam Comments Initial Comments: Physical Exam GENERAL: Chronically ill appearing HENT: Normocephalic, Atraumatic. EYES: PERRL, EOMI PULMONARY: Unlabored respirations. CARDIOVASCULAR: Irregularly irregular, tachycardic Warm and well perfused extremities Dialysis access in left upper arm ABDOMEN: Soft and nontender with normal bowel sounds. SKIN: Chronic changes : Deferred NEUROLOGIC: Patient is alert and oriented x3. Moving all extremities spontaneously MUSCULOSKELETAL: Normal extremities with adequate strength and full range of motion. No lower extremity swelling or edema. No calf tenderness. PSYCHIATRIC: Normal psychiatric evaluation Limitations: no limitations Course Vital Signs 08/26/18 08/26/18 08/26/18 22:10 22:30 23:30 Temperature 97.9 F Pulse Rate 124 H 138 H 128 H Respiratory 22 16 16 Rate Blood Pressure 115/78 108/67 132/91 O2 Sat by Pulse 100 97 99 Oximetry EKG Findings - EKG Comments: EKG Findings:: EKG was obtained due to complaint of tachycardia and hypertension, EKG obtained at 2205, rate is 140 now complicated regularly irregular tachycardia consistent with A. fib with RVR. No significant change in morphology from previous. Medical Decision Making - Medical Decision Making The patient was seen and evaluated history was obtained from patient, EMS, nurse at dialysis Center who called and gave report to me as well as review of medical record. 58-year-old with end-stage renal disease had dialysis 2 L were removed he then became hypotensive when in A. fib with RVR, was bolused 2 L prior to transfer which time he remained in A. fib with RVR. Upon arrival blood pressure has improved. EKG confirms A. fib with RVR labs are ordered to assess electrolytes labs at baseline for the patient Cardizem bolus and drip were ordered for management of A. fib patient care was discussed with Dr. Cole who accepts admission with consult to cardiology requested the patient receive his home medications overnight. - Lab Data Result diagrams: 08/26/18 22:21 08/26/18 22:21 Lab Results 08/26/18 08/26/18 08/26/18 Range/Units 22:21 22:21 22:21 WBC 9.4 (3.8-10.6) k/uL RBC 3.34 L (4.30-5.90) m/uL Hgb 10.2 L (13.0-17.5) gm/dL Hct 29.9 L (39.0-53.0) % MCV 89.5 (80.0-100.0) fL MCH 30.5 (25.0-35.0) pg MCHC 34.0 (31.0-37.0) g/dL RDW 14.0 (11.5-15.5) % Plt Count 292 (150-450) k/uL Neutrophils % 77 % Lymphocytes % 12 % Monocytes % 4 % Eosinophils % 4 % Basophils % 1 % Neutrophils # 7.3 (1.3-7.7) k/uL Lymphocytes # 1.1 (1.0-4.8) k/uL Monocytes # 0.4 (0-1.0) k/uL Eosinophils # 0.3 (0-0.7) k/uL Basophils # 0.1 (0-0.2) k/uL PT 10.5 (9.0-12.0) sec INR 1.0 (<1.2) APTT 33.4 H (22.0-30.0) sec Sodium 141 (137-145) mmol/L Potassium 3.0 L (3.5-5.1) mmol/L Chloride 97 L (98-107) mmol/L Carbon Dioxide 28 (22-30) mmol/L Anion Gap 16 mmol/L BUN 25 H (9-20) mg/dL Creatinine 2.37 H (0.66-1.25) mg/dL Est GFR (CKD-EPI)AfAm 33 (>60 ml/min/1.73 sqM) Est GFR (CKD-EPI)NonAf 29 (>60 ml/min/1.73 sqM) Glucose 112 H (74-99) mg/dL Calcium 9.0 (8.4-10.2) mg/dL Magnesium 1.8 (1.6-2.3) mg/dL Total Bilirubin 0.7 (0.2-1.3) mg/dL AST 23 (17-59) U/L ALT 33 (21-72) U/L Alkaline Phosphatase 146 H (38-126) U/L Troponin I (0.000-0.034) ng/mL NT-Pro-B Natriuret Pep pg/mL Total Protein 7.2 (6.3-8.2) g/dL Albumin 4.3 (3.5-5.0) g/dL 08/26/18 08/26/18 Range/Units 22:21 22:21 WBC (3.8-10.6) k/uL RBC (4.30-5.90) m/uL Hgb (13.0-17.5) gm/dL Hct (39.0-53.0) % MCV (80.0-100.0) fL MCH (25.0-35.0) pg MCHC (31.0-37.0) g/dL RDW (11.5-15.5) % Plt Count (150-450) k/uL Neutrophils % % Lymphocytes % % Monocytes % % Eosinophils % % Basophils % % Neutrophils # (1.3-7.7) k/uL Lymphocytes # (1.0-4.8) k/uL Monocytes # (0-1.0) k/uL Eosinophils # (0-0.7) k/uL Basophils # (0-0.2) k/uL PT (9.0-12.0) sec INR (<1.2) APTT (22.0-30.0) sec Sodium (137-145) mmol/L Potassium (3.5-5.1) mmol/L Chloride (98-107) mmol/L Carbon Dioxide (22-30) mmol/L Anion Gap mmol/L BUN (9-20) mg/dL Creatinine (0.66-1.25) mg/dL Est GFR (CKD-EPI)AfAm (>60 ml/min/1.73 sqM) Est GFR (CKD-EPI)NonAf (>60 ml/min/1.73 sqM) Glucose (74-99) mg/dL Calcium (8.4-10.2) mg/dL Magnesium (1.6-2.3) mg/dL Total Bilirubin (0.2-1.3) mg/dL AST (17-59) U/L ALT (21-72) U/L Alkaline Phosphatase (38-126) U/L Troponin I 0.034 (0.000-0.034) ng/mL NT-Pro-B Natriuret Pep 4600 pg/mL Total Protein (6.3-8.2) g/dL Albumin (3.5-5.0) g/dL Disposition Clinical Impression: Atrial fibrillation with RVR Disposition: ADMITTED IP TO THIS HOSP Condition: Stable Is patient prescribed a controlled substance at d/c from ED?: No Referrals: Ten Mckeon DO [Primary Care Provider] - 1-2 days
[2018-08-26] MEDS ORDERED: ACETAMINOPHEN TAB 325 MG TAB PO PRN (23:32)
[2018-08-26] MEDS ORDERED: LORazepam 1 MG TAB PO PRN (23:34)
[2018-08-26] MEDS ORDERED: METOPROLOL TARTRATE 12.5 MG TAB PO SCH (23:45)
[2018-08-27] MEDS: GABAPENTIN 300 MG CAP PO SCH ×2 (01:35→22:05)
[2018-08-27] MEDS: METOPROLOL TARTRATE 25 MG TAB PO SCH ×3 (01:35→22:05)
[2018-08-27 01:54] LABS: Glucose,Whole Blood 160 mg/dL (75-99)
[2018-08-27 02:26] VITALS: BMI 34.4
[2018-08-27 06:23] LABS: Glucose,Whole Blood 258 mg/dL (75-99)
[2018-08-27] MEDS: INSULIN ASPART (NovoLOG) 100 UNIT/ML VIAL SQ SCH ×4 (06:40→22:05)
[2018-08-27] MEDS ORDERED: POTASSIUM CHLORIDE ER 20 MEQ TAB.ER PO STA (06:57)
[2018-08-27] MEDS: CLOPIDOGREL 75 MG TAB PO SCH (10:05)
[2018-08-27] MEDS: ALLOPURINOL 300 MG TAB PO SCH (10:05)
[2018-08-27] MEDS: ATORVASTATIN 80 MG TAB PO SCH (10:05)
[2018-08-27] MEDS: FUROSEMIDE 80 MG TAB PO SCH (10:05)
[2018-08-27] MEDS: CALCIUM ACETATE 667 MG CAP PO SCH ×3 (10:06→22:06)
[2018-08-27] MEDS: AMIODARONE 200 MG TAB PO SCH ×2 (10:26→22:05)
--- NOTE | 2018-08-27 11:50 | CONS ---
CONSULTATION Mr. Gillette is a 58-year-old male with history of coronary artery disease, history of end-stage renal disease and a history of recently diagnosed atrial fibrillation who yesterday was in dialysis. At the end of dialysis on his way out he started to complain of dizziness and presyncope. His blood pressure was low. He received IV fluid, with persistent hypotension. Subsequently he was found to be in atrial fibrillation. Following his presentation to the emergency room, he received IV Cardizem and subsequently converted to sinus mechanism. He is doing well at this point. He has been followed by Dr. Bowie on a regular basis. On August 10 he underwent cardiac catheterization by Dr. Bowie because of an elevation of troponin. At that time he was found to have a patent stent in the left circumflex, which is a dominant vessel. The LAD had moderate obstructive disease. The right coronary artery was chronically occluded. The plan for the patient was to undergo further noninvasive evaluation to see if he was a candidate for revascularization of the LAD. He did not have any chest pain but had the dizziness, as noted. He has chronic mild peripheral edema. No syncope. His echocardiogram in July revealed a preserved left ventricular size and systolic function with mild mitral regurgitation and tricuspid regurgitation. He is usually active physically and has no significant difficulty. He has been on dialysis since September of last year. His stenting of the left circumflex was done in February of this year. His current risk factors are positive for diabetes and hyperlipidemia. He is a nonsmoker. MEDICATIONS: His medications at home include: 1. Xarelto 15 mg daily. 2. Protonix. 3. Metoprolol tartrate 12.5 mg twice a day. 4. Insulin. 5. Gabapentin. 6. Lasix 80 mg daily. 7. Plavix 75 mg daily. 8. PhosLo. 9. Lipitor 80 mg daily. 10.Zyloprim. REVIEW OF SYSTEMS: RESPIRATORY SYSTEM: He had the dyspnea on exertion, the fatigue yesterday. No cough. GI SYSTEM: No recent GI bleeding. No peptic ulcer disease. No nausea. SYSTEM: No dysuria or hematuria. He has end-stage renal disease. NERVOUS SYSTEM: No history of stroke or seizure. PHYSICAL EXAMINATION: He is a 58-year-old male, alert, oriented, in no apparent distress. Blood pressure 116/60 with a heart rate in the 60s. HEAD: Normocephalic. EYES: Sclerae anicteric. NECK: Good carotid upstroke. No bruit. No jugular venous distention. LUNGS: Clear to auscultation. HEART: Regular rate and rhythm. S1, S2. No S3, with systolic murmur heard at the base, 2/6. No diastolic murmur. No rub. ABDOMEN: Soft, nontender. Positive bowel sounds. No organomegaly. EXTREMITIES: Trace edema. Intact distal pulses. LAB DATA: Lab data revealed a BUN and creatinine of 25 and 2.37, potassium 3.0, hemoglobin of 10.2, troponin 0.034. NT-Pro-BNP of 4600. Initial EKG revealed atrial fibrillation with rapid ventricular response and nonspecific ST-T wave changes. Subsequent EKG revealed sinus mechanism, rate of 75, with no acute changes. IMPRESSION: 1. Paroxysmal atrial fibrillation, symptomatic with symptoms of dizziness. 2. History of coronary artery disease with patent stent to the left circumflex artery with chronically occluded right coronary artery and mild to moderate disease in the left anterior descending coronary artery. 3. End-stage renal disease, on hemodialysis. 4. Diabetes. 5. Hyperlipidemia. RECOMMENDATIONS: I will continue on the anticoagulation as present. I will add to his regimen amiodarone to see if that will help us maintain sinus mechanism. Increase his level of activity. Depending on his progress, further recommendations will be made. Thank you for this consult. Will follow with you. LUL / LIS: [id number] /
[2018-08-27 12:19] LABS: Glucose,Whole Blood 266 mg/dL (75-99)
[2018-08-27] MEDS ORDERED: INSULIN DETEMIR (LEVEMIR) 100 UNIT/ML SYR SQ SCH (12:30)
--- NOTE | 2018-08-27 16:10 | P.HPIM ---
History of Present Illness H&P Date: 08/27/18 This is a 58-year-old male patient of Dr Mckeon with history of hypertension and hypertensive cardio vascular disease with left ventricular hypertrophy, coronary artery disease status post stenting of the left circumflex in February 2018 , chronic diastolic heart failure, end-stage renal disease on hemodialysis 3 times weekly, hyperlipidemia,uncontrolled diabetes mellitus type II. Patient had recent angioplasty and stenting of the first obtuse marginal branch of the circumflex on March [address] Bowie. Patient was also found to have a chronically totally occluded RCA fills with collaterals from the left system, intermediate disease in the LAD. He has also had recent angioplasty of the fistula to the left arm done by Dr. Santizo at [facility]. Patient had recent hospitalization on August 05 for symptoms of chest discomfort, he was seen in consultation by Dr. Hall and recommended to be discharged home to follow-up in the office post discharge for outpatient stress testing. she had multiple visits to the ER since July 2018for atrial fibrillation with RVR post hemodialysis. Patient presented to ER for evaluation of atrial fibrillation with RVR after he completed his hemodialysis. Patient was found to be hypertensive with systolic less than60 as per patient. 2 L of normal saline was given. The patient had a near syncopal event. Since there was no improvement in blood pressure despite the IV fluid patient was sent to the ER. on evaluation in the ER patient was a temp of 97.9 heart rate ranging from 120- 140 with a blood pressure 108/67 EKG was done that suggested atrial fibrillation with RVR. On evaluation this morning patient denies any chest pain shortness of breath or palpitation. Labs evaluated this morning suggest him to hemoglobin of 10.2 was WBC 9.4 potassium was 3 by was repeated B UN 25 creatinine 2.37 and glucose of 112 patient was initiated on Cardizem drip and was admitted. Patient is currently off Cardizem drip and currently onmetoprolol 12.5 mg twice a day. Cardiology evaluated the patient and started patient on amiodarone 200 mg twice a day. Review of Systems Constitutional: Denies chills, Denies fever, Denies lethargy, Denies malaise, Denies poor appetite, Denies weakness, Denies weight loss Eyes: endorses decreased vision, endorses diplopia, denies discharge, denies judie n blind in right eye legally blind in left eye Ears: deny: decreased hearing Ears, nose, mouth and throat: Denies dental pain, Denies headache, Denies nasal discharge, Denies nose pain Cardiovascular: Denies chest pain, Denies decreased exercise tolerance, Denies edema, Denies high blood pressure, endorses irregular heart beat, endorses palpitations, Denies paroxysmal nocturnal dyspnea, Denies rapid heart beat, Denies shortness of breath Respiratory: Denies congestion, Denies cough, Denies cough with sputum, Denies dyspnea, Denies home oxygen, Denies wheezing Gastrointestinal: Denies abdominal pain, Denies change in bowel habits, Denies coffee ground emesis, Denies early satiety, Denies excessive gas, Denies heartburn, Denies hematemesis, Denies hematochezia, Denies loss of appetite, Denies nausea, Denies vomiting Genitourinary: Denies dysuria, Denies flank pain, Denies kidney stones, Denies menorrhagia, Denies urgency, Denies urinary frequency Musculoskeletal: Denies gait dysfunction, Denies limitation of motion, Denies morning stiffness, Denies muscle cramps Integumentary: Denies rash, Denies wounds, Denies brittle nails, Denies change in hair/nails, Denies darkening of skin Neurological: Denies balance difficulties, Denies change in speech, Denies double vision, Denies gait dysfunction, Denies loss of vision, Denies motor dis turbance, endorses tingling and numbness in bilateral upper and lower extremities Psychiatric: Denies anxiety, Denies depression Endocrine: Denies excessive sweating, Denies excessive thirst, Denies high blood sugars, Denies palpitations Hematologic/Lymphatic: Denies easy bruising, Denies lymphadenopathy Past Medical History Past Medical History: Coronary Artery Disease (CAD), Diabetes Mellitus, Dialysis, Eye Disorder, GERD/Reflux, Hyperlipidemia, Hypertension, Myocardial Infarction (AL), Myocardial Infarction (non Q-wave), Renal Disease, Syncope Additional Past Medical History / Comment(s): chronic kidney disease, NEUROPATHY, per old medcial hx ulcer age 17, sinus problems, blind in the right eye, legally blind in left eye Last Myocardial Infarction Date:: 03-03-18, nstemi History of Any Multi-Drug Resistant Organisms: None Reported Past Surgical History: Heart Catheterization With Stent Additional Past Surgical History / Comment(s): left EYE VITRECTOMY february 2017 S AGO AT [facility], COLONOSCOPY-POLYPS BENIGN, THRYOID NEEDLE ASPIRATION-NEG, LT LEG SX"HAD A cyst REMOVED", tilt table test in past. DEC 2016 LEFT ARM FISTULA, PD catheter placement, catheter removed, fistula gram with balloon for stenosis Past Anesthesia/Blood Transfusion Reactions: Postoperative Nausea & Vomiting (PONV) Date of Last Stent Placement:: 03-03-18 Past Psychological History: Anxiety, Depression Additional Psychological History / Comment(s): PT ADMITS TO SOME DEPRESSION D/T medical problems but has no thoughts of wanting to harm self. Smoking Status: Former smoker Past Alcohol Use History: None Reported Additional Past Alcohol Use History / Comment(s): STARTED SMOKING AT AGE 12 WORKED UP TO ALMOST A PPD THEN QUIT 20 YEARS AGO Past Drug Use History: None Reported - Past Family History Father Family Medical History: Cancer, Hyperlipidemia Additional Family Medical History / Comment(s): ? BRAIN CANCER Mother Family Medical History: Diabetes Mellitus, Osteoarthritis (OA) Additional Family Medical History / Comment(s): DJD. MOM IS STILL ALIVE AT AGE 80 Sister(s) Family Medical History: Diabetes Mellitus Brother(s) Family Medical History: Diabetes Mellitus Additional Family Medical History / Comment(s): Patient has 4 kids no major medical problems. Medications and Allergies Home Medications Medication Instructions Recorded Confirmed Type Clopidogrel [Plavix] 75 mg PO DAILY #30 tab 03/05/18 08/26/18 Rx Nitroglycerin Sl Tabs [Nitrostat] 0.4 mg SUBLINGUAL Q5M PRN #25 tab 03/05/18 08/26/18 Rx Insulin Glargine,Hum.rec.anlog 30 unit SQ DAILY 03/24/18 08/26/18 History [Basaglar Kwikpen U-100] Allopurinol [Zyloprim] 150 mg PO DAILY 08/05/18 08/26/18 History Calcium Acetate [PhosLo] 667 mg PO TID 08/05/18 08/26/18 History Furosemide [Lasix] 80 mg PO DAILY 08/05/18 08/26/18 History Gabapentin [Neurontin] 300 mg PO HS 08/05/18 08/26/18 History Insulin Aspart [NovoLOG Flexpen] See Protocol SQ ACHS 08/05/18 08/26/18 History LORazepam [Ativan] 2 mg PO HS PRN 08/05/18 08/26/18 History Atorvastatin [Lipitor] 80 mg PO DAILY #30 tab 08/11/18 08/26/18 Rx Metoprolol Tartrate [Lopressor] 12.5 mg PO BID #60 tab 08/11/18 08/26/18 Rx Pantoprazole [Protonix] 40 mg PO AC-BRKFST #30 tablet.dr 08/11/18 08/26/18 Rx Rivaroxaban [Xarelto] 15 mg PO W/SUPPER #30 tab 08/11/18 08/26/18 Rx Allergies Allergy/AdvReac Type Severity Reaction Status Date / Time codeine AdvReac Hallucinati Verified 08/26/18 22:07 ons morphine AdvReac Confusion Verified 08/26/18 22:07 All antibiotics except Keflex Allergy Unknown Uncoded 08/26/18 22:07 Childhood Physical Exam Vitals: Vital Signs Temp Pulse Pulse Pulse Resp BP BP 08/27/18 12:00 97.7 F 64 16 138/64 08/27/18 08:00 97.4 F L 64 16 116/56 08/27/18 03:04 97.9 F 62 62 18 132/73 08/27/18 01:51 78 18 151/72 08/26/18 23:30 128 H 16 132/91 08/26/18 22:30 138 H 16 108/67 08/26/18 22:10 97.9 F 124 H 22 115/78 Pulse Ox 08/27/18 12:00 99 08/27/18 08:00 100 08/27/18 03:04 96 08/27/18 01:51 08/26/18 23:30 99 08/26/18 22:30 97 08/26/18 22:10 100 Intake and Output 08/26/18 08/27/18 08/27/18 22:59 06:59 14:59 Intake Total 36.667 240 Output Total 0 Balance 36.667 240 Intake: Intake, IV Titration 36.667 Amount Diltiazem 125 mg In 36.667 Sodium Chloride 0.9% 100 ml @ Per Protocol IV .Q0M [facility] Rx#:[id number] Oral 240 Output: Hemodialysis 0 Other: # Voids 1 Weight 99.8 kg 102.5 kg - Constitutional General appearance: cooperative, no acute distress, obese - EENT Eyes: anicteric sclerae, PERRLA on he left , ptosis of the right eye with c omplete, decreased vision on the left eye with no vision on the right eye ENT: hearing grossly normal - Neck Neck: no lymphadenopathy, normal ROM, no other, no rigidity, no stridor, no thyromegaly - Respiratory Respiratory: bilateral: CTA,fine crackles in the right bases negative: diminished, dullness, rales, rhonchi - Cardiovascular Rhythm: regular Heart sounds: normal: S1, S2 Abnormal Heart Sounds: 3 x 6systolic murmurfifth intercostal space, no diastolic murmur, no rub, no S3 Gallop, no S4 Gallop, no click, no other - Gastrointestinal General gastrointestinal: normal bowel sounds, soft - Integumentary Integumentary: no rash - Neurologic Neurologic: CNII-XII intact - Musculoskeletal Musculoskeletal: gait normal, strength equal bilaterally - Psychiatric Psychiatric: A&O x's 3, appropriate affect Results CBC & Chem 7: 08/26/18 22:21 08/26/18 22:21 Labs: Abnormal Lab Results - Last 24 Hours (Table) 08/26/18 08/26/18 08/26/18 Range/Units 22:21 22:21 22:21 RBC 3.34 L (4.30-5.90) m/uL Hgb 10.2 L (13.0-17.5) gm/dL Hct 29.9 L (39.0-53.0) % APTT 33.4 H (22.0-30.0) sec Potassium 3.0 L (3.5-5.1) mmol/L Chloride 97 L (98-107) mmol/L BUN 25 H (9-20) mg/dL Creatinine 2.37 H (0.66-1.25) mg/dL Glucose 112 H (74-99) mg/dL POC Glucose (mg/dL) (75-99) mg/dL Alkaline Phosphatase 146 H (38-126) U/L 08/27/18 08/27/18 08/27/18 Range/Units 01:50 06:21 11:56 RBC (4.30-5.90) m/uL Hgb (13.0-17.5) gm/dL Hct (39.0-53.0) % APTT (22.0-30.0) sec Potassium (3.5-5.1) mmol/L Chloride (98-107) mmol/L BUN (9-20) mg/dL Creatinine (0.66-1.25) mg/dL Glucose (74-99) mg/dL POC Glucose (mg/dL) 160 H 258 H 266 H (75-99) mg/dL Alkaline Phosphatase (38-126) U/L Thrombosis Risk Factor Assmnt - DVT/VTE Prophylaxis DVT/VTE Prophylaxis: Pharmacologic Prophylaxis ordered - Choose All That Apply Each Factor Represents 1 point: Age 41-60 years Thrombosis Risk Factor Assessment Total Risk Factor Score: 1 Thrombosis Risk Factor Assessment Level: Low Risk Assessment and Plan Plan: 1. Atrial fibrillation with rapid ventricular response, paroxysmal atrial fibrillation.off Cardizemcontinue metoprolol 12.5 mg by mouth twice a day. Amiodarone 200 mg twice a day . On [id number] mg by mouth daily 2. Uncontrolled type 2 diabetes on Levemir 30 with the sliding scale at home. We'll increase Levemir to 20 mgsubcu twice a daywith sliding scale. Patient was supposed to see Dr. miller as outpatient but is noncompliant stopped seeing him 3. History of coronary artery disease with previous left heart catheterization angioplasty and stenting of the first obtuse marginal branch of the circumflex on March [address] Bowie. Patient was also found to have a chronically totally occluded RCA fills with collaterals from the left system, intermediate disease in the LAD Continue aspirin 81 mg orally once every day, Plavix 75 mg orally once every day, Lopressor 12.5 mg orally twice every day, Lipitor 80 mg once every day. 3. Chronic diastolic heart failure. Continue Lasix 80 mg daily. 4.Orquidea of chronic disease likely secondary to end-stage renal disease hemoglobin stable at 10.2 5. End-stage renal disease on hemodialysis 3 times weekly. Consult with nephro logy. 6. Diabetic polyneuropathy. Continue gabapentin 300 mg at bedtime. 7. Hypertension and hypertensive cardio vascular disease with left ventricular hypertrophy. Continue Lopressor. 6. History of restless leg syndrome. Stable at this time. 7. History of gout. Continue allopurinol 150 mg orally once every day. 8. DVT prophylaxis. xarelto 9. GI prophylaxis. Continue with Protonix 40 mg orally once every day. 10. Patient is full code.
[2018-08-27 16:48] LABS: Glucose,Whole Blood 156 mg/dL (75-99)
[2018-08-27] MEDS: RIVAROXABAN 15 MG TAB PO SCH (17:30)
[2018-08-27 20:59] LABS: Glucose,Whole Blood 185 mg/dL (75-99)
[2018-08-27 22:03] LABS: Glucose,Whole Blood 166 mg/dL (75-99)
[2018-08-27] MEDS: INSULIN DETEMIR (LEVEMIR) 100 UNIT/ML SYR SQ SCH (22:06)
[2018-08-28 02:40] LABS: Glucose,Whole Blood 143 mg/dL (75-99)
[2018-08-28 06:56] LABS: Glucose,Whole Blood 124 mg/dL (75-99)
[2018-08-28] MEDS: INSULIN ASPART (NovoLOG) 100 UNIT/ML VIAL SQ SCH ×4 (07:02→21:53)
[2018-08-28] MEDS: CLOPIDOGREL 75 MG TAB PO SCH (08:34)
[2018-08-28] MEDS: FUROSEMIDE 80 MG TAB PO SCH (08:34)
[2018-08-28] MEDS: ALLOPURINOL 300 MG TAB PO SCH (08:34)
[2018-08-28] MEDS: ATORVASTATIN 80 MG TAB PO SCH (08:34)
[2018-08-28] MEDS: AMIODARONE 200 MG TAB PO SCH ×2 (08:34→21:52)
[2018-08-28] MEDS: CALCIUM ACETATE 667 MG CAP PO SCH ×3 (08:34→21:53)
[2018-08-28] MEDS: METOPROLOL TARTRATE 25 MG TAB PO SCH ×2 (08:34→21:52)
[2018-08-28] MEDS: INSULIN DETEMIR (LEVEMIR) 100 UNIT/ML SYR SQ SCH ×2 (08:38→21:53)
--- NOTE | 2018-08-28 10:09 | PN ---
PROGRESS NOTE Mr. Gillette is a 58-year-old male with known history of coronary artery disease, end- stage renal disease, on hemodialysis, who presented with paroxysmal atrial fibrillation. He is doing well this morning. His breathing has been stable. He denies any dizziness or palpitation. He is ambulating without difficulty. Continues to be on amiodarone 200 mg twice a day, Lipitor 80 mg daily, Plavix 75 mg daily, furosemide 80 mg daily, insulin, metoprolol tartrate 12.5 mg twice a day, and Xarelto 15 mg daily. PHYSICAL EXAMINATION: Blood pressure 110/57 with a heart rate in 60s. LUNGS: Clear. HEART: Regular rate and rhythm, S1, S2. No S3. No rub. ABDOMEN: Soft, nontender. EXTREMITIES: No edema. IMPRESSION: 1. Paroxysmal atrial fibrillation, remaining in sinus mechanism. 2. History of coronary artery disease status post percutaneous revascularization. 3. End-stage renal disease, on hemodialysis. 4. History of hypertension. 5. Hyperlipidemia. RECOMMENDATION: From the cardiac standpoint, we will continue present therapy. I would expect he should be able to be discharged home today and follow up with Dr. Bowie. If he has recurrent episode of atrial fibrillation, then one of the options is to proceed with ablation to maintain sinus mechanism because of his symptomatic presentation. MMODL / IJN: [id number] /
[2018-08-28 10:13] LABS: HCT 27.4 % (39.0-53.0); HGB 9.1 gm/dL (13.0-17.5); MCV 90.8 fL (80.0-100.0); Mean Platelet Volume 6.6; Platelet Count 258 k/uL (150-450); RBC 3.02 m/uL (4.30-5.90); RDW 14.1 % (11.5-15.5); WBC 8.5 k/uL (3.8-10.6)
[2018-08-28 10:28] LABS: Calcium 9.1 mg/dL (8.4-10.2); Potassium 3.8 mmol/L (3.5-5.1)
[2018-08-28 12:11] LABS: Glucose,Whole Blood 130 mg/dL (75-99)
--- NOTE | 2018-08-28 12:23 | CONS ---
CONSULTATION REASON FOR CONSULT: End-stage renal disease. HISTORY OF PRESENT ILLNESS: The patient is a 58-year-old man who was admitted to the hospital with atrial fibrillation with RVR and hypotension. The patient was at dialysis and after his treatment, he was noticed to be quite symptomatic. Recently, patient has had an acute ND status post cardiac catheterization and possible revascularization of the LAD down the road. The patient has been evaluated by Cardiology. He was initially on Cardizem drip. Now has been switched over to oral amiodarone. The patient denies any chest pains. Overall, patient states he is feeling better. He is due for dialysis tomorrow. He is maintained on a Wednesday, Wednesday, Wednesday schedule. PAST MEDICAL HISTORY: End-stage renal disease. Type 2 diabetes, peripheral neuropathy, coronary artery disease, recent ND, hyperlipidemia, hypertension, and blindness in the right eye, legally blind left eye, anemia of chronic disease. PAST SURGICAL HISTORY: Left arm AV fistula. Previous PD catheter placement and removal, left eye vitrectomy. SOCIAL HISTORY: Patient is a former smoker. No history of drug abuse or alcohol abuse. MEDICATIONS: Medications at home prior to admission include Plavix, Nitrostat, insulin, Zyloprim, PhosLo, Lasix, Neurontin, Ativan, Lipitor, Lopressor, Protonix, and Xarelto. ALLERGIES: INCLUDE CODEINE, MORPHINE CAUSES CONFUSION AND HALLUCINATIONS. ALSO INCLUDE MOST ANTIBIOTICS EXCEPT FOR KEFLEX. PHYSICAL EXAMINATION: On examination, patient is currently comfortable, awake, alert, oriented x3. He is not in any acute distress. Blood pressure is 110/57, heart rate 64 per minute. He is afebrile. Examination of the heart S1, S2. Examination of the lungs, bilateral breath sounds are heard. Abdomen is soft, nontender. Examination of lower extremities shows trace edema bilaterally. [employer] exam is grossly intact. LAB: Show hemoglobin 9.1, sodium 137, potassium 3.8, serum creatinine 4.63. ASSESSMENT: 1. End-stage renal disease, on hemodialysis on a Wednesday, Wednesday, Wednesday schedule. Patient will be dialyzed tomorrow. 2. Atrial fibrillation with rapid ventricular response, currently with controlled ventricular response. 3. Coronary artery disease status post recent myocardial infarction with recent cardiac catheterization with plans for revascularization of the LAD down the road. 4. Chronic kidney disease mineral bone disorder. 5. Hypertension, currently controlled. 6. Peripheral neuropathy. 7. Retinopathy and the patient is legally blind. 8. Issues with volume overload as outpatient, currently slightly stable. PLAN: Hemodialysis in a.m. goal UF to 2 to 2.5 L as tolerated and if patient is stable and able to tolerate his treatment tomorrow morning, he can be discharged. Continue with the phosphate binders. Continue with amiodarone. Thank you for this consultation. We will continue to follow the patient with you during his hospitalization. MMODL / IJN: [id number] /
--- NOTE | 2018-08-28 15:05 | P.PN ---
Subjective Progress Note Date: 08/28/18 This is a 58-year-old male patient of Dr Mckeon with history of hypertension and hypertensive cardio vascular disease with left ventricular hypertrophy, coronary artery disease status post stenting of the left circumflex in February 2018 , chronic diastolic heart failure, end-stage renal disease on hemodialysis 3 times weekly, hyperlipidemia,uncontrolled diabetes mellitus type II. Patient had recent angioplasty and stenting of the first obtuse marginal branch of the circumflex on March [address] Bowie. Patient was also found to have a chronically totally occluded RCA fills with collaterals from the left system, intermediate disease in the LAD. He has also had recent angioplasty of the fistula to the left arm done by Dr. Santizo at [facility]. Patient had recent hospitalization on August 05 for symptoms of chest discomfort, he was seen in consultation by Dr. Hall and recommended to be discharged home to follow-up in the office post discharge for outpatient stress testing. she had multiple visits to the ER since July 2018for atrial fibrillation with RVR post hemodialysis. Patient presented to ER for evaluation of atrial fibrillation with RVR after he completed his hemodialysis. Patient was found to be hypertensive with systolic less than60 as per patient. 2 L of normal saline was given. The patient had a near syncopal event. Since there was no improvement in blood pressure despite the IV fluid patient was sent to the ER. on evaluation in the ER patient was a temp of 97.9 heart rate ranging from 120- 140 with a blood pressure 108/67 EKG was done that suggested atrial fibrillation with RVR. On evaluation this morning patient denies any chest pain shortness of breath or palpitation. Labs evaluated this morning suggest him to hemoglobin of 10.2 was WBC 9.4 potassium was 3 by was repeated B UN 25 creatinine 2.37 and glucose of 112 patient was initiated on Cardizem drip and was admitted. Patient is currently off Cardizem drip and currently onmetoprolol 12.5 mg twice a day. Cardiology evaluated the patient and started patient on amiodarone 200 mg twice a day. 08/28 patient examined at bedside completely asymptomatic. No episodes of dizziness or lightheadedness noted with blood pressure stable at 110/57. Hemoglobin 9.1 nightly 58 creatinine 4.63 chloride of 97. Patient was evaluated by nephrology plan to get dialysis tomorrow morning before patient is discharged Objective - Vital Signs Vital signs: Vital Signs Temp 97.6 F 08/28/18 07:48 Pulse 66 08/28/18 11:41 Resp 16 08/28/18 11:41 BP 141/65 08/28/18 11:41 Pulse Ox 98 08/28/18 11:41 Intake & Output 08/27/18 08/28/18 08/28/18 18:59 06:59 18:59 Intake Total 720 240 600 Balance 720 240 600 Weight 104.7 kg Intake: Oral 720 240 600 Other: # Voids 2 2 1 - Exam - Constitutional General appearance: cooperative, no acute distress, obese - EENT Eyes: anicteric sclerae, PERRLA on he left , ptosis of the right eye with complete, decreased vision on the left eye with no vision on the right eye ENT: hearing grossly normal - Neck Neck: no lymphadenopathy, normal ROM, no other, no rigidity, no stridor, no thyromegaly - Respiratory Respiratory: bilateral: CTA,fine crackles in the right bases - Cardiovascular Rhythm: regular Heart sounds: normal: S1, S2 Abnormal Heart Sounds: 3 x 6systolic murmur fifth intercostal space, no diastolic murmur, no rub, no S3 Gallop, no S4 Gallop, no click, no other - Gastrointestinal General gastrointestinal: normal bowel sounds, soft - Integumentary Integumentary: no rash - Neurologic Neurologic: CNII-XII intact - Musculoskeletal Musculoskeletal: gait normal, strength equal bilaterally - Psychiatric Psychiatric: A&O x's 3, appropriate affect - Labs CBC & Chem 7: 08/28/18 09:46 08/28/18 09:46 Labs: Abnormal Lab Results - Last 24 Hours (Table) 08/27/18 08/27/18 08/27/18 Range/Units 16:47 20:57 21:59 RBC (4.30-5.90) m/uL Hgb (13.0-17.5) gm/dL Hct (39.0-53.0) % Chloride (98-107) mmol/L BUN (9-20) mg/dL Creatinine (0.66-1.25) mg/dL Glucose (74-99) mg/dL POC Glucose (mg/dL) 156 H 185 H 166 H (75-99) mg/dL 08/28/18 08/28/1819 Range/Units 02:39 06:24 09:46 RBC 3.02 L (4.30-5.90) m/uL Hgb 9.1 L (13.0-17.5) gm/dL Hct 27.4 L (39.0-53.0) % Chloride (98-107) mmol/L BUN (9-20) mg/dL Creatinine (0.66-1.25) mg/dL Glucose (74-99) mg/dL POC Glucose (mg/dL) 143 H 124 H (75-99) mg/dL 08/28/18 08/28/18 Range/Units 09:46 11:50 RBC (4.30-5.90) m/uL Hgb (13.0-17.5) gm/dL Hct (39.0-53.0) % Chloride 97 L (98-107) mmol/L BUN 58 H (9-20) mg/dL Creatinine 4.63 H (0.66-1.25) mg/dL Glucose 110 H (74-99) mg/dL POC Glucose (mg/dL) 130 H (75-99) mg/dL Assessment and Plan Plan: 1. Atrial fibrillation with rapid ventricular response, paroxysmal atrial fibrillation.off Cardizemcontinue metoprolol 12.5 mg by mouth twice a day. Amiodarone 200 mg twice a day . On [id number] mg by mouth daily 2. Uncontrolled type 2 diabetes on Levemir 30 with the sliding scale at home. We'll increase Levemir to 20 mgsubcu twice a daywith sliding scale. Patient was supposed to see Dr. miller as outpatient but is noncompliant stopped seeing him 3. History of coronary artery disease with previous left heart catheterization angioplasty and stenting of the first obtuse marginal branch of the circumflex on March [address] Bowie. Patient was also found to have a chronically totally occluded RCA fills with collaterals from the left system, intermediate disease in the LAD Continue aspirin 81 mg orally once every day, Plavix 75 mg orally once every day, Lopressor 12.5 mg orally twice every day, Lipitor 80 mg once every day. 3. Chronic diastolic heart failure. Continue Lasix 80 mg daily. 4.Orquidea of chronic disease likely secondary to end-stage renal disease hemoglobin stable at 10.2 5. End-stage renal disease on hemodialysis 3 times weekly. Consult with nephrology. 6. Diabetic polyneuropathy. Continue gabapentin 300 mg at bedtime. 7. Hypertension and hypertensive cardio vascular disease with left ventricular hypertrophy. Continue Lopressor. 6. History of restless leg syndrome. Stable at this time. 7. History of gout. Continue allopurinol 150 mg orally once every day. 8. DVT prophylaxis. xarelto 9. GI prophylaxis. Continue with Protonix 40 mg orally once every day. 10. Patient is full code.
[2018-08-28 17:10] LABS: Glucose,Whole Blood 157 mg/dL (75-99)
[2018-08-28] MEDS: RIVAROXABAN 15 MG TAB PO SCH (17:23)
[2018-08-28 21:53] LABS: Glucose,Whole Blood 131 mg/dL (75-99)
[2018-08-28] MEDS: GABAPENTIN 300 MG CAP PO SCH (21:53)
[2018-08-29 03:03] LABS: Glucose,Whole Blood 127 mg/dL (75-99)
[2018-08-29 06:31] LABS: Glucose,Whole Blood 108 mg/dL (75-99)
[2018-08-29] MEDS: INSULIN ASPART (NovoLOG) 100 UNIT/ML VIAL SQ SCH ×2 (06:34→11:59)
[2018-08-29] MEDS ORDERED: LIDOCAINE 1% INJ 10MG/ML (20 ML MDV) ONE (07:00)
[2018-08-29] MEDS ORDERED: GELATIN SPONGE,ABSORB (LARGE) 1 EACH SPONGE ONE (07:00)
[2018-08-29] MEDS: INSULIN DETEMIR (LEVEMIR) 100 UNIT/ML SYR SQ SCH (08:43)
[2018-08-29] MEDS: AMIODARONE 200 MG TAB PO SCH (10:55)
[2018-08-29] MEDS: CALCIUM ACETATE 667 MG CAP PO SCH (10:55)
[2018-08-29] MEDS: FUROSEMIDE 80 MG TAB PO SCH (10:55)
[2018-08-29] MEDS: METOPROLOL TARTRATE 25 MG TAB PO SCH (10:55)
[2018-08-29] MEDS: ATORVASTATIN 80 MG TAB PO SCH (10:56)
[2018-08-29] MEDS: ALLOPURINOL 300 MG TAB PO SCH (10:56)
[2018-08-29] MEDS: CLOPIDOGREL 75 MG TAB PO SCH (10:56)
[2018-08-29 11:44] VITALS: TEMP 98
[2018-08-29 12:17] LABS: Glucose,Whole Blood 122 mg/dL (75-99)
[2018-08-29 12:41] VITALS: BP 163/88; PULSE 66; RESP 18
--- NOTE | 2018-08-29 13:18 | P.DS ---
Providers Date of admission: 08/28/18 14:52 Expected date of discharge: 08/29/18 Attending physician: Mono Lima MD Consults: 08/26/18 23:33 Consult Physician Urgent Consulting Provider: [facility] Consult Reason/Comments: RVR Do you want consulting provider notified?: Yes, Notify in am 08/27/18 16:09 Consult Physician Routine Consulting Provider: Janine Nguyen Consult Reason/Comments: ESRD on HD Do you want consulting provider notified?: Yes Primary care physician: [facility] Hospital Course: This is a 58-year-old male patient of Dr Mckeon with history of hypertension and hypertensive cardio vascular disease with left ventricular hypertrophy, coronary artery disease status post stenting of the left circumflex in February 2018 , chronic diastolic heart failure, end-stage renal disease on hemodialysis 3 times weekly, hyperlipidemia,uncontrolled diabetes mellitus type II. Patient had recent angioplasty and stenting of the first obtuse marginal branch of the circumflex on March [address] Bowie. Patient was also found to have a chronically totally occluded RCA fills with collaterals from the left system, intermediate disease in the LAD. He has also had recent angioplasty of the fistula to the left arm done by Dr. Santizo at [facility]. Patient had recent hospitalization on August 05 for symptoms of chest discomfort, he was seen in consultation by Dr. Hall and recommended to be discharged home to follow-up in the office post discharge for outpatient stress testing. she had multiple visits to the ER since July 2018for atrial fibrillation with RVR post hemodialysis. Patient presented to ER for evaluation of atrial fibrillation with RVR after he completed his hemodialysis. Patient was found to be hypertensive with systolic less than60 as per patient. 2 L of normal saline was given. The patient had a near syncopal event. Since there was no improvement in blood pressure despite the IV fluid patient was sent to the ER. on evaluation in the ER patient was a temp of 97.9 heart rate ranging from 120- 140 with a blood pressure 108/67 EKG was done that suggested atrial fibrillation with RVR. On evaluation this morning patient denies any chest pain shortness of breath or palpitation. Labs evaluated this morning suggest him to hemoglobin of 10.2 was WBC 9.4 potassium was 3 by was repeated B UN 25 creatinine 2.37 and glucose of 112 patient was initiated on Cardizem drip and was admitted. Patient is currently off Cardizem drip and currently onmetoprolol 12.5 mg twice a day. Cardiology evaluated the patient and started patient on amiodarone 200 mg twice a day. 08/28 patient examined at bedside completely asymptomatic. No episodes of dizziness or lightheadedness noted with blood pressure stable at 110/57. Hemoglobin 9.1 nightly 58 creatinine 4.63 chloride of 97. Patient was evaluated by nephrology plan to get dialysis tomorrow morning before patient is discharged 08/29: Patient states that he ER he ate breakfast this morning and is an hour and half into hemodialysis. 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 If patient remains in a sinus rhythm after completing hemodialysis, patient will be discharged home today. Cardiology did sign off this case history and cleared for discharge. Discharge diagnoses: 1. Atrial fibrillation with rapid ventricular response, paroxysmal atrial fibrillation. 2. Uncontrolled type 2 diabetes, hyperglycemia 3. History of coronary artery disease with previous left heart catheterization angioplasty and stenting of the first obtuse marginal branch of the circumflex on March [address] Bowie. Patient was also found to have a chronically totally occluded RCA fills with collaterals from the left system, intermediate disease in the LAD. 4. Chronic diastolic heart failure. 5. Anemia of chronic disease, end-stage renal disease. 6. End-stage renal disease on hemodialysis. 7. Diabetic polyneuropathy. 8. Hypertension and hypertensive cardio vascular disease with left ventricular hypertrophy. 9. History of restless leg syndrome. 10. History of gout, chronic. Discharge plan: Home Impression and plan of care have been directed as dictated by the signing physician. Katelyn Wesley nurse practitioner acting as scribe for signing physician. Patient Condition at Discharge: Good Plan - Discharge Summary New Discharge Prescriptions: New Amiodarone [Cordarone] 200 mg PO BID #60 tab Continue Clopidogrel [Plavix] 75 mg PO DAILY #30 tab Nitroglycerin Sl Tabs [Nitrostat] 0.4 mg SUBLINGUAL Q5M PRN #25 tab PRN Reason: Chest Pain Insulin Glargine,Hum.rec.anlog [Basaglar Kwikpen U-100] 30 unit SQ DAILY Gabapentin [Neurontin] 300 mg PO HS Furosemide [Lasix] 80 mg PO DAILY Allopurinol [Zyloprim] 150 mg PO DAILY Insulin Aspart [NovoLOG Flexpen] See Protocol SQ ACHS Calcium Acetate [PhosLo] 667 mg PO TID LORazepam [Ativan] 2 mg PO HS PRN PRN Reason: anxiety Atorvastatin [Lipitor] 80 mg PO DAILY #30 tab Metoprolol Tartrate [Lopressor] 12.5 mg PO BID #60 tab Pantoprazole [Protonix] 40 mg PO AC-BRKFST #30 tablet. Rivaroxaban [Xarelto] 15 mg PO W/SUPPER #30 tab Discharge Medication List Clopidogrel [Plavix] 75 mg PO DAILY #30 tab 03/05/18 [Rx] Nitroglycerin Sl Tabs [Nitrostat] 0.4 mg SUBLINGUAL Q5M PRN #25 tab 03/05/18 [Rx] Insulin Glargine,Hum.rec.anlog [Basaglar Kwikpen U-100] 30 unit SQ DAILY 03/24/18 [History] Allopurinol [Zyloprim] 150 mg PO DAILY 08/05/18 [History] Calcium Acetate [PhosLo] 667 mg PO TID 08/05/18 [History] Furosemide [Lasix] 80 mg PO DAILY 08/05/18 [History] Gabapentin [Neurontin] 300 mg PO HS 08/05/18 [History] Insulin Aspart [NovoLOG Flexpen] See Protocol SQ ACHS 08/05/18 [History] LORazepam [Ativan] 2 mg PO HS PRN 08/05/18 [History] Atorvastatin [Lipitor] 80 mg PO DAILY #30 tab 08/11/18 [Rx] Metoprolol Tartrate [Lopressor] 12.5 mg PO BID #60 tab 08/11/18 [Rx] Pantoprazole [Protonix] 40 mg PO AC-BRKFST #30 tablet. 08/11/18 [Rx] Rivaroxaban [Xarelto] 15 mg PO W/SUPPER #30 tab 08/11/18 [Rx] Amiodarone [Cordarone] 200 mg PO BID #60 tab 08/29/18 [Rx] Follow up Appointment(s)/Referral(s): Andry Bowie MD [STAFF PHYSICIAN] - 09/13/18 1:30 pm (Wednesday) Ten Mckeon DO [Primary Care Provider] - 09/05/18 1:00 pm (Wednesday) Patient Instructions/Handouts: A-fib (Atrial Fibrillation) (DC) Discharge Disposition: HOME SELF-CARE
--- NOTE | 2018-08-29 14:03 | PN ---
PROGRESS NOTE Patient is seen for followup for end-stage renal disease, he will be dialyzed today. PHYSICAL EXAMINATION: This morning, blood pressure was 155/71, heart rate 62 per minute. He is afebrile. Examination of the heart S1, S2. Examination of the lungs, bilateral breath sounds are heard. Abdomen is soft, nontender. Examination of the lower extremities shows no 1+ edema bilaterally. LABS: From yesterday show potassium of 3.8. ASSESSMENT: 1. End-stage renal disease, on hemodialysis on a Wednesday, Wednesday, Wednesday schedule. 2. Atrial fibrillation with rapid ventricular rate. Currently with controlled ventricular response. 3. Coronary artery disease, status post recent myocardial infarction, cardiac catheterization. 4. Anemia of chronic disease, maintained on Aranesp. PLAN: Patient can be discharged today. If he continues to remain asymptomatic, follow up for dialysis as outpatient on Wednesday. MMODL / IJN: [id number] /
--- NOTE | 2018-08-29 15:14 | P.PN ---
Subjective Progress Note Date: 08/29/18 This is a 58-year-old male patient of Dr Mckeon with history of hypertension and hypertensive cardio vascular disease with left ventricular hypertrophy, coronary artery disease status post stenting of the left circumflex in February 2018 , chronic diastolic heart failure, end-stage renal disease on hemodialysis 3 times weekly, hyperlipidemia,uncontrolled diabetes mellitus type II. Patient had recent angioplasty and stenting of the first obtuse marginal branch of the circumflex on March [address] Bowie. Patient was also found to have a chronically totally occluded RCA fills with collaterals from the left system, intermediate disease in the LAD. He has also had recent angioplasty of the fistula to the left arm done by Dr. Santizo at [facility]. Patient had recent hospitalization on August 05 for symptoms of chest discomfort, he was seen in consultation by Dr. Hall and recommended to be discharged home to follow-up in the office post discharge for outpatient stress testing. she had multiple visits to the ER since July 2018for atrial fibrillation with RVR post hemodialysis. Patient presented to ER for evaluation of atrial fibrillation with RVR after he completed his hemodialysis, and was admitted to the hospital for further evaluation and treatment. This morning patient continues to be in a normal sinus rhythm, overall he feels well, undergoing di alysis at present.blood pressure 160/80 with a heart rate in the 60s, 99% on room air. Objective - Vital Signs Vital signs: Vital Signs Temp 98.0 F 08/29/18 12:40 Pulse 66 08/29/18 12:40 Resp 18 08/29/18 12:40 BP 163/88 08/29/18 12:40 Pulse Ox 99 08/29/18 11:42 Intake & Output 08/28/18 08/29/18 08/29/18 18:59 06:59 18:59 Intake Total 840 10 240 Output Total 3000 Balance 840 10 -2760 Weight 104.9 kg Intake: IV 10 .9 10 Oral 840 240 Output: Hemodialysis 3000 Other: # Voids 1 1 1 - Exam PHYSICAL EXAMINATION: GENERAL:58-year-old gentleman in no acute distress at the time of my examination HEENT: Head is atraumatic, normocephalic. Pupils equal, round. Sclera anicteric. Conjunctiva are clear. Mucous membranes of the mouth are moist. Neck is supple. There is no elevated jugular venous pressure no carotid bruit is heard. HEART EXAMINATION: [Heart S1, S2 normal. No murmur or gallop heard.] CHEST EXAMINATION:[ Lungs reveal fine crackles to bilateral bases.] ABDOMEN: [ Soft, nontender. Bowel sounds are heard. No organomegaly noted]. EXTREMITIES:[ 2+ peripheral pulses with no evidence of peripheral edema and no calf tenderness noted]. NEUROLOGIC [patient is awake, alert and oriented X3.] . - Labs CBC & Chem 7: 08/28/18 09:46 08/28/18 09:46 Labs: Abnormal Lab Results - Last 24 Hours (Table) 08/28/18 08/28/18 08/29/18 Range/Units 16:50 21:37 03:01 POC Glucose (mg/dL) 157 H 131 H 127 H (75-99) mg/dL 08/29/18 08/29/18 Range/Units 06:29 11:58 POC Glucose (mg/dL) 108 H 122 H (75-99) mg/dL Assessment and Plan Plan: Assessment andPlan: 1. Atrial fibrillation with rapid ventricular response, paroxysmal 2. Uncontrolled type 2 diabetes 3. History of coronary artery disease with previous left heart catheterization angioplasty and stenting of the first obtuse marginal branch of the circumflex on March [address] Bowie. Patient was also found to have a chronically totally occluded RCA fills with collaterals from the left system, intermediate disease in the LAD. 3. Chronic diastolic heart failure. 4.Anemia of chronic disease likely secondary to end-stage renal disease 5. End-stage renal disease on hemodialysis 3 times weekly. 6. Diabetic neuropathy. 7. Hypertension 6. History of restless leg syndrome. 7. History of gout. Plan From cardiology's perspective, we'll recommend to continue this patient on his current medications. He may be able to be discharged once cleared by primary,follow-up appointment post discharge. DNP note has been reviewed, I agree with a documented findings and plan of care. Patient was seen and examined.
== END 2018-08-29 13:24 | disposition home or self-care (01) | DRG 308 ==
LOC: EC 22:01 → 3SCARD 23:27 → OBSVTOIN 08-28 14:52
PROVIDERS: ADMIT Internal Medicine; ATTEND Internal Medicine
PROC: 5A1D70Z Performance of Urinary Filtration, Intermittent, Less than 6 Hours Per Day (ICD-10-PCS; principal; 2018-08-28)
DX: I48.0 Paroxysmal atrial fibrillation (principal); N18.6 End stage renal disease; I13.2 Hypertensive heart and chronic kidney disease with heart failure and with stage 5 chronic kidney disease, or end stage renal disease; I50.32 Chronic diastolic (congestive) heart failure; D63.8 Anemia in other chronic diseases classified elsewhere; E11.22 Type 2 diabetes mellitus with diabetic chronic kidney disease; E11.319 Type 2 diabetes mellitus with unspecified diabetic retinopathy without macular edema; E11.42 Type 2 diabetes mellitus with diabetic polyneuropathy; E11.65 Type 2 diabetes mellitus with hyperglycemia; E78.5 Hyperlipidemia, unspecified; F32.9 Major depressive disorder, single episode, unspecified; F41.9 Anxiety disorder, unspecified; G25.81 Restless legs syndrome; I08.1 Rheumatic disorders of both mitral and tricuspid valves; I25.10 Atherosclerotic heart disease of native coronary artery without angina pectoris; I25.82 Chronic total occlusion of coronary artery; K21.9 Gastro-esophageal reflux disease without esophagitis; M1A.9XX0 Chronic gout, unspecified, without tophus (tophi); H54.8 Legal blindness, as defined in USA; I25.2 Old myocardial infarction; Z79.01 Long term (current) use of anticoagulants; Z79.02 Long term (current) use of antithrombotics/antiplatelets; Z79.82 Long term (current) use of aspirin; Z79.899 Other long term (current) drug therapy; Z80.8 Family history of malignant neoplasm of other organs or systems; Z83.3 Family history of diabetes mellitus; Z87.891 Personal history of nicotine dependence; Z91.19 Patient's noncompliance with other medical treatment and regimen; Z99.2 Dependence on renal dialysis; Z95.5 Presence of coronary angioplasty implant and graft; Z88.1 Allergy status to other antibiotic agents; Z88.5 Allergy status to narcotic agent; Z98.890 Other specified postprocedural states
CPT/HCPCS: 36415; 71046; 80048; 80053; 83735; 83880; 84484; 85025; 85027; 85610; 85730; 90935; 93005; 96365; 96366; 96376; 99285

== ENCOUNTER 2018-09-25 16:31 | Emergency (ER) | payer MEDICARE ==
[2018-09-25 16:38] VITALS: RESP 16
--- NOTE | 2018-09-25 18:37 | ED ---
ENT HPI - General Chief complaint: Dental/Oral Stated complaint: dental problems Time Seen by Provider: 09/25/18 16:41 Source: patient Mode of arrival: ambulatory Limitations: no limitations - History of Present Illness Initial comments: Patient is a 58-year-old male presenting to the emergency department with a chief complaint of a bleeding tooth. Patient reports his tooth on the left upper jaw fell few days ago. Patient reports a tooth was "bad." Patient reports continues bleeding from the site. Patient also reports occasional clots performing at the psych a were to tooth fell from. Patient is a blood thinners. The patient's primary concern is that he has a dialysis appointment tomorrow and states that if any locations of active bleeding or present he will not receive treatment. Patient denies any headaches, presyncope, lightheadedness, dizziness, nausea or vomiting. - Related Data Home Medications Medication Instructions Recorded Confirmed Insulin Glargine,Hum.rec.anlog 30 unit SQ DAILY 03/24/18 08/26/18 [Basaglar Kwikpen U-100] Allopurinol [Zyloprim] 150 mg PO DAILY 08/05/18 08/26/18 Calcium Acetate [PhosLo] 667 mg PO TID 08/05/18 08/26/18 Furosemide [Lasix] 80 mg PO DAILY 08/05/18 08/26/18 Gabapentin [Neurontin] 300 mg PO HS 08/05/18 08/26/18 Insulin Aspart [NovoLOG Flexpen] See Protocol SQ ACHS 08/05/18 08/26/18 LORazepam [Ativan] 2 mg PO HS PRN 08/05/18 08/26/18 Previous Rx's Medication Instructions Recorded Clopidogrel [Plavix] 75 mg PO DAILY #30 tab 03/05/18 Nitroglycerin Sl Tabs [Nitrostat] 0.4 mg SUBLINGUAL Q5M PRN #25 tab 03/05/18 Atorvastatin [Lipitor] 80 mg PO DAILY #30 tab 08/11/18 Metoprolol Tartrate [Lopressor] 12.5 mg PO BID #60 tab 08/11/18 Pantoprazole [Protonix] 40 mg PO AC-BRKFST #30 tablet. 08/11/18 Rivaroxaban [Xarelto] 15 mg PO W/SUPPER #30 tab 08/11/18 Amiodarone [Cordarone] 200 mg PO BID #60 tab 08/29/18 Allergies Allergy/AdvReac Type Severity Reaction Status Date / Time codeine AdvReac Hallucinati Verified 09/25/18 16:37 ons morphine AdvReac Confusion Verified 09/25/18 16:37 All antibiotics except Keflex Allergy Unknown Uncoded 09/25/18 16:37 Childhood Review of Systems ROS Statement: Those systems with pertinent positive or pertinent negative responses have been documented in the HPI. ROS Other: All systems not noted in ROS Statement are negative. Past Medical History Past Medical History: Coronary Artery Disease (CAD), Diabetes Mellitus, Dialysis, Eye Disorder, GERD/Reflux, Hyperlipidemia, Hypertension, Myocardial Infarction ([place]), Myocardial Infarction (non Q-wave), Renal Disease, Syncope Additional Past Medical History / Comment(s): chronic kidney disease, NEUROPATHY, per old medcial hx ulcer age 17, sinus problems, blind in the right eye, legally blind in left eye Last Myocardial Infarction Date:: 03-03-18, nstemi History of Any Multi-Drug Resistant Organisms: None Reported Past Surgical History: Heart Catheterization With Stent Additional Past Surgical History / Comment(s): left EYE VITRECTOMY february 2017 S AGO AT [place], COLONOSCOPY-POLYPS BENIGN, THRYOID NEEDLE ASPIRATION-NEG, LT LEG SX"HAD A cyst REMOVED", tilt table test in past. DEC 2016 LEFT ARM FISTULA, PD catheter placement, catheter removed, fistula gram with balloon for stenosis Past Anesthesia/Blood Transfusion Reactions: Postoperative Nausea & Vomiting (PONV) Date of Last Stent Placement:: 03-03-18 Past Psychological History: Anxiety, Depression Smoking Status: Former smoker Past Alcohol Use History: None Reported Past Drug Use History: None Reported - Past Family History Father Family Medical History: Cancer, Hyperlipidemia Additional Family Medical History / Comment(s): ? BRAIN CANCER Mother Family Medical History: Diabetes Mellitus, Osteoarthritis (OA) Additional Family Medical History / Comment(s): DJD. MOM IS STILL ALIVE AT AGE 80 Sister(s) Family Medical History: Diabetes Mellitus Brother(s) Family Medical History: Diabetes Mellitus Additional Family Medical History / Comment(s): Patient has 4 kids no major medical problems. General Exam Limitations: no limitations General appearance: alert, in no apparent distress, obese Head exam: Present: atraumatic, normocephalic, normal inspection Eye exam: Present: normal appearance, PERRL, EOMI Pupils: Present: normal accommodation ENT exam: Present: normal exam, mucous membranes moist, normal external ear exam. Absent: normal oropharynx (Poor dentition throughout mouth. No active Bleeding from a tooth site on the left upper jaw. Blood clot noted wooded tooth fell out from) Neck exam: Present: normal inspection, full ROM Respiratory exam: Present: normal lung sounds bilaterally Cardiovascular Exam: Present: regular rate, normal rhythm, normal heart sounds Extremities exam: Present: normal inspection, full ROM Back exam: Present: normal inspection, full ROM Neurological exam: Present: alert, oriented X3 Psychiatric exam: Present: normal affect, normal mood Skin exam: Present: warm, intact, normal color Course Vital Signs 09/25/18 09/25/18 16:35 18:44 Temperature 97.9 F 98.0 F Pulse Rate 61 64 Respiratory 16 16 Rate Blood Pressure 152/64 150/68 O2 Sat by Pulse 96 99 Oximetry Medical Decision Making - Medical Decision Making Patient is a 58-year-old male presenting to emergency Department with a chief complaint of bleeding from the site where his tooth fell from. Based on physical examination there appears to be clot at the site where to fell from. Patient advised not to remove the clot as a will activate the bleeding again. I applied pressure to the bleeding site which cause a clot and prevent further bleeding. Patient advised to follow-up with his medical office manager who placed him on the blood thinner. Patient advised to go to his dialysis appointment. Strict return parameters were thoroughly discussed patient was understanding and agreeable. Case discussed with physician. Disposition Clinical Impression: Oral hemorrhage Disposition: HOME SELF-CARE Condition: Stable Instructions (If sedation given, give patient instructions): Toothache (ED) Additional Instructions: Apply compress to regional bleeding. Please follow up with the physician who prescribed the blood thinners. Please return to emergency department if symptoms worsen. Is patient prescribed a controlled substance at d/c from ED?: No Referrals: Ten Mckeon DO [Primary Care Provider] - 1-2 days Time of Disposition: 18:37
[2018-09-25 18:46] VITALS: BP 150/68; PULSE 64; TEMP 98
== END 2018-09-25 18:44 | disposition home or self-care (01) ==
LOC: EC 16:31
DX: K06.8 Other specified disorders of gingiva and edentulous alveolar ridge (principal); I12.9 Hypertensive chronic kidney disease with stage 1 through stage 4 chronic kidney disease, or unspecified chronic kidney disease; E11.40 Type 2 diabetes mellitus with diabetic neuropathy, unspecified; I25.119 Atherosclerotic heart disease of native coronary artery with unspecified angina pectoris; H54.8 Legal blindness, as defined in USA; F41.9 Anxiety disorder, unspecified; Z79.4 Long term (current) use of insulin; Z79.899 Other long term (current) drug therapy; Z88.1 Allergy status to other antibiotic agents; Z88.5 Allergy status to narcotic agent; Z87.891 Personal history of nicotine dependence; Z99.2 Dependence on renal dialysis; Z95.5 Presence of coronary angioplasty implant and graft
CPT/HCPCS: 99282

== ENCOUNTER 2018-10-17 07:29 | Inpatient (IN) | payer MEDICARE ==
[2018-10-17] MEDS ORDERED: DILTIAZEM DRIP BOLUS FROM BAG 1 MG SOLN IV ONE (07:56)
[2018-10-17] MEDS ORDERED: ONDANSETRON 4 MG/2 ML VIAL IVP STA (07:57)
[2018-10-17] MEDS ORDERED: DILTIAZEM 125 MG in SODIUM CHLORIDE 0.9% 100 ML IV SCH (08:00)
--- NOTE | 2018-10-17 08:08 | ED ---
General Adult HPI <QuirosAgus - Last Filed: 10/17/18 09:30> - General Source: patient, RN notes reviewed Mode of arrival: ambulatory Limitations: no limitations <Issa Duran - Last Filed: 10/17/18 09:36> - General Chief complaint: Arrhythmia/Palpitations Stated complaint: A-fib Time Seen by Provider: 10/17/18 07:44 - History of Present Illness Initial comments: 58-year-old male with a complicated past medical history including atrial fibrillation, diabetes mellitus, hyperlipidemia, hypertension, ME, end-stage renal disease on dialysis presents to the emergency department for a chief complaint of racing heart. Patient states last night he started to have nausea. States that today he started to feel that his heart was racing and felt like she was in atrial fibrillation. States he is nauseous and vomiting this time. Patient does have a history of atrial fibrillation. States he was on Eliquis and Plavix but stopped Eliquis 3 weeks ago due to epistaxis. Patient is still on Plavix because of a stent placed in February. Patient last had dialysis on Wednesday and is a Wednesday dialysis patient with next dialysis scheduled for 11 AM today. Patient has no other complaints at this time including shortness of breath, chest pain, abdominal pain, nausea or vomiting, headache, or visual changes. (Issa Duran) - Related Data Home Medications Medication Instructions Recorded Confirmed Insulin Glargine,Hum.rec.anlog 20 unit SQ BID 03/24/18 10/17/18 [Basaglar Kwikpen U-100] Allopurinol [Zyloprim] 150 mg PO DAILY 08/05/18 10/17/18 Calcium Acetate [PhosLo] 1,334 mg PO TID 08/05/18 10/17/18 Furosemide [Lasix] 80 mg PO DAILY 08/05/18 10/17/18 Gabapentin [Neurontin] 300 mg PO HS 08/05/18 10/17/18 Insulin Aspart [NovoLOG Flexpen] See Protocol SQ ACHS 08/05/18 10/17/18 LORazepam [Ativan] 2 mg PO HS PRN 08/05/18 10/17/18 Amiodarone HCl [Pacerone] 100 mg PO BID 10/17/18 10/17/18 Previous Rx's Medication Instructions Recorded Clopidogrel [Plavix] 75 mg PO DAILY #30 tab 03/05/18 Nitroglycerin Sl Tabs [Nitrostat] 0.4 mg SUBLINGUAL Q5M PRN #25 tab 03/05/18 Atorvastatin [Lipitor] 80 mg PO DAILY #30 tab 08/11/18 Metoprolol Tartrate [Lopressor] 12.5 mg PO BID #60 tab 08/11/18 Pantoprazole [Protonix] 40 mg PO AC-BRKFST #30 tablet. 08/11/18 Allergies Allergy/AdvReac Type Severity Reaction Status Date / Time codeine AdvReac Hallucinati Verified 10/17/18 08:00 ons morphine AdvReac Confusion Verified 10/17/18 08:00 All antibiotics except Keflex Allergy Unknown Uncoded 09/25/18 16:37 Childhood Review of Systems ROS Other: All systems not noted in ROS Statement are negative. <Agus Quiros - Last Filed: 10/17/18 09:30> ROS Other: All systems not noted in ROS Statement are negative. <Issa Duran - Last Filed: 10/17/18 09:36> ROS Statement: Those systems with pertinent positive or pertinent negative responses have been documented in the HPI. Past Medical History Past Medical History: Atrial Fibrillation, Coronary Artery Disease (CAD), Diabetes Mellitus, Dialysis, Eye Disorder, GERD/Reflux, Hyperlipidemia, Hypertension, Myocardial Infarction (ME), Myocardial Infarction (non Q-wave), Renal Disease, Syncope Additional Past Medical History / Comment(s): chronic kidney disease, NEUROPATHY, per old medcial hx ulcer age 17, sinus problems, blind in the right eye, legally blind in left eye Last Myocardial Infarction Date:: 03-03-18, nstemi History of Any Multi-Drug Resistant Organisms: None Reported Past Surgical History: Heart Catheterization With Stent Additional Past Surgical History / Comment(s): left EYE VITRECTOMY february 2017 S AGO AT [facility], COLONOSCOPY-POLYPS BENIGN, THRYOID NEEDLE ASPIRATION-NEG, LT LEG SX"HAD A cyst REMOVED", tilt table test in past. DEC 2016 LEFT ARM FISTULA, PD catheter placement, catheter removed, fistula gram with balloon for stenosis Past Anesthesia/Blood Transfusion Reactions: Postoperative Nausea & Vomiting (PONV) Date of Last Stent Placement:: 03-03-18 Past Psychological History: Anxiety, Depression Smoking Status: Former smoker Past Alcohol Use History: None Reported Past Drug Use History: None Reported - Past Family History Father Family Medical History: Cancer, Hyperlipidemia Additional Family Medical History / Comment(s): ? BRAIN CANCER Mother Family Medical History: Diabetes Mellitus, Osteoarthritis (OA) Additional Family Medical History / Comment(s): DJD. MOM IS STILL ALIVE AT AGE 80 Sister(s) Family Medical History: Diabetes Mellitus Brother(s) Family Medical History: Diabetes Mellitus Additional Family Medical History / Comment(s): Patient has 4 kids no major medical problems. <Issa Duran - Last Filed: 10/17/18 09:36> General Exam Limitations: no limitations Head exam: Present: atraumatic, normocephalic, normal inspection Eye exam: Present: normal appearance, PERRL, EOMI. Absent: scleral icterus, conjunctival injection, periorbital swelling ENT exam: Present: normal exam, mucous membranes moist Neck exam: Present: normal inspection, full ROM. Absent: tenderness, meningismus Respiratory exam: Present: normal lung sounds bilaterally. Absent: respiratory distress, wheezes, rales, rhonchi, stridor Cardiovascular Exam: Present: irregular rhythm, normal heart sounds. Absent: systolic murmur, diastolic murmur, rubs, gallop, clicks Neurological exam: Present: alert, oriented X3 Psychiatric exam: Present: normal affect, normal mood <Issa Duran - Last Filed: 10/17/18 09:36> Course Vital Signs 10/17/18 10/17/18 10/17/18 07:31 08:25 09:05 Temperature 98.5 F Pulse Rate 120 H 115 H Pulse Rate [ 120 H [employer] [place] [employer] ] Respiratory 18 16 Rate Blood Pressure 159/86 182/115 O2 Sat by Pulse 96 91 L Oximetry EKG Findings - EKG Comments: EKG Findings:: Atrial fibrillation with rapid ventricular response of 118, QR yazidism 92, QTC 484, no obvious ST elevation or depression <Issa Duran - Last Filed: 10/17/18 09:36> Medical Decision Making - Lab Data Result diagrams: 10/17/18 07:59 10/17/18 07:59 <Agus Quiros - Last Filed: 10/17/18 09:30> - Lab Data Result diagrams: 10/17/18 07:59 10/17/18 07:59 <Issa Duran - Last Filed: 10/17/18 09:36> - Medical Decision Making Patient reevaluated and reexamined by myself, Dr. Quiros. Patient resting comfortably in bed. Results and reports reviewed. I do agree with the findings. Case was also discussed with Dr. Pantoja, who will admit covering for Dr. Lovett. She does request consults with cardiology and nephrology. She is okay with starting heparin. (Agus Quiros) 58-year-old male with a computed past medical history including atrial fibrillation and end-stage renal disease on dialysis presents for chief complaint of racing heart. Patient is found to be in atrial fibrillation with a rapid ventricular response in the 130s on presentation. He is nauseous and vomiting however blood pressure is stable. Patient is currently on Plavix but stopped on request 3 weeks ago due to epistaxis. CBC and arrival. Mild leukocytosis likely reactive in nature. CMP does show a creatinine of 7.14 which is chronic and appears to be patient's baseline. Troponin minimally elevated at 0.036 which is likely secondary to renal failure and also appears to be patient's baseline. Chest x-ray shows chronic central peribronchial cuffing. Patient was started on Cardizem drip and bolus heart rate in the 110s now. Patient was started on heparin as he is taking Plavix but is no longer taking El iquis. Patient will be admitted and Dr. Pantoja did agree with this heparin initiation. She also requested a cardiology and nephrology consult as patient is due for dialysis at 11 AM today. (Issa Duran) - Lab Data Lab Results 10/17/18 10/17/18 10/17/18 Range/Units 07:59 07:59 07:59 WBC 14.4 H (3.8-10.6) k/uL RBC 3.79 L (4.30-5.90) m/uL Hgb 11.2 L (13.0-17.5) gm/dL Hct 35.2 L (39.0-53.0) % MCV 92.8 (80.0-100.0) fL MCH 29.5 (25.0-35.0) pg MCHC 31.8 (31.0-37.0) g/dL RDW 14.4 (11.5-15.5) % Plt Count 269 (150-450) k/uL Neutrophils % 79 % Lymphocytes % 10 % Monocytes % 5 % Eosinophils % 4 % Basophils % 1 % Neutrophils # 11.4 H (1.3-7.7) k/uL Lymphocytes # 1.4 (1.0-4.8) k/uL Monocytes # 0.7 (0-1.0) k/uL Eosinophils # 0.5 (0-0.7) k/uL Basophils # 0.1 (0-0.2) k/uL PT 10.3 (9.0-12.0) sec INR 1.0 (<1.2) APTT 25.8 (22.0-30.0) sec Sodium 144 (137-145) mmol/L Potassium 4.1 (3.5-5.1) mmol/L Chloride 104 (98-107) mmol/L Carbon Dioxide 23 (22-30) mmol/L Anion Gap 17 mmol/L BUN 88 H (9-20) mg/dL Creatinine 7.14 H* (0.66-1.25) mg/dL Est GFR (CKD-EPI)AfAm 9 (>60 ml/min/1.73 sqM) Est GFR (CKD-EPI)NonAf 8 (>60 ml/min/1.73 sqM) Glucose 271 H (74-99) mg/dL Calcium 9.8 (8.4-10.2) mg/dL Magnesium 2.2 (1.6-2.3) mg/dL Total Bilirubin 0.5 (0.2-1.3) mg/dL AST 22 (17-59) U/L ALT 42 (21-72) U/L Alkaline Phosphatase 151 H (38-126) U/L Troponin I (0.000-0.034) ng/mL Total Protein 7.2 (6.3-8.2) g/dL Albumin 4.4 (3.5-5.0) g/dL 10/17/18 Range/Units 07:59 WBC (3.8-10.6) k/uL RBC (4.30-5.90) m/uL Hgb (13.0-17.5) gm/dL Hct (39.0-53.0) % MCV (80.0-100.0) fL MCH (25.0-35.0) pg MCHC (31.0-37.0) g/dL RDW (11.5-15.5) % Plt Count (150-450) k/uL Neutrophils % % Lymphocytes % % Monocytes % % Eosinophils % % Basophils % % Neutrophils # (1.3-7.7) k/uL Lymphocytes # (1.0-4.8) k/uL Monocytes # (0-1.0) k/uL Eosinophils # (0-0.7) k/uL Basophils # (0-0.2) k/uL PT (9.0-12.0) sec INR (<1.2) APTT (22.0-30.0) sec Sodium (137-145) mmol/L Potassium (3.5-5.1) mmol/L Chloride (98-107) mmol/L Carbon Dioxide (22-30) mmol/L Anion Gap mmol/L BUN (9-20) mg/dL Creatinine (0.66-1.25) mg/dL Est GFR (CKD-EPI)AfAm (>60 ml/min/1.73 sqM) Est GFR (CKD-EPI)NonAf (>60 ml/min/1.73 sqM) Glucose (74-99) mg/dL Calcium (8.4-10.2) mg/dL Magnesium (1.6-2.3) mg/dL Total Bilirubin (0.2-1.3) mg/dL AST (17-59) U/L ALT (21-72) U/L Alkaline Phosphatase (38-126) U/L Troponin I 0.036 H* (0.000-0.034) ng/mL Total Protein (6.3-8.2) g/dL Albumin (3.5-5.0) g/dL Disposition <Agus Quiros - Last Filed: 10/17/18 09:30> Is patient prescribed a controlled substance at d/c from ED?: No Time of Disposition: 09:36 <Issa Duran - Last Filed: 10/17/18 09:36> Clinical Impression: Dialysis patient, Atrial fibrillation with RVR Disposition: ADMITTED IP TO THIS HOSP Condition: Fair Referrals: Ten Mckeon DO [Primary Care Provider] - 1-2 days
[2018-10-17 08:20] LABS: Basophils # (A) 0.1 k/uL (0-0.2); Basophils % (A) 1 %; Eosinophils # (A) 0.5 k/uL (0-0.7); Eosinophils % (A) 4 %; HCT 35.2 % (39.0-53.0); HGB 11.2 gm/dL (13.0-17.5); Lymphocytes # (A) 1.4 k/uL (1.0-4.8); Lymphocytes % (A) 10 %; MCH 29.5 pg (25.0-35.0); MCHC 31.8 g/dL (31.0-37.0); MCV 92.8 fL (80.0-100.0); Mean Platelet Volume 6.9; Monocytes # (A) 0.7 k/uL (0-1.0); Monocytes % (A) 5 %; Neutrophils # (A) 11.4 k/uL (1.3-7.7); Neutrophils % (A) 79 %; Platelet Count 269 k/uL (150-450); RBC 3.79 m/uL (4.30-5.90); RDW 14.4 % (11.5-15.5); WBC 14.4 k/uL (3.8-10.6)
[2018-10-17 08:30] LABS: Partial Thromboplastin Time 25.8 sec (22.0-30.0); Prothrombin Time 10.3 sec (9.0-12.0)
[2018-10-17 08:37] LABS: Albumin 4.4 g/dL (3.5-5.0); Calcium 9.8 mg/dL (8.4-10.2); Magnesium 2.2 mg/dL (1.6-2.3); Potassium 4.1 mmol/L (3.5-5.1); Total Bilirubin 0.5 mg/dL (0.2-1.3); Total Protein 7.2 g/dL (6.3-8.2)
--- NOTE | 2018-10-17 08:50 | XR ---
EXAMINATION TYPE: XR chest 2V DATE OF EXAM: 10/17/2018 COMPARISON: 08/26/2018 HISTORY: Vomiting and tachycardia. Chest pain. TECHNIQUE: Frontal and lateral views of the chest are obtained. FINDINGS: Chronic peribronchial cuffing is seen centrally. No new focal consolidation, pleural effus ion or pneumothorax. Cardiomediastinal silhouette is stable but enlarged. Osseous structures appear i ntact with mild degenerative changes of the thoracic spine. IMPRESSION: Chronic central peribronchial cuffing. Consider chronic reactive airway disease or bronc hitis.
[2018-10-17] MEDS ORDERED: HEPARIN SODIUM,PORCINE 5,000 UNIT/ML 1 ML VIAL IV ONE (09:33)
[2018-10-17] MEDS ORDERED: HEPARIN SODIUM,PORCINE 5,000 UNIT/ML 1 ML VIAL IV PRN (09:33)
[2018-10-17] MEDS ORDERED: HEPARIN SOD,PORK IN 0.45% NACL 25,000 UNIT in 0.45% NACL 1 250ML.BAG IV SCH (09:45)
[2018-10-17 09:52] LABS: T4, Free (Free Thyroxine) 1.46 ng/dL (0.78-2.19)
[2018-10-17 12:15] LABS: Glucose,Whole Blood 249 mg/dL (75-99)
[2018-10-17] MEDS ORDERED: LORazepam 1 MG TAB PO PRN (12:33)
[2018-10-17] MEDS ORDERED: NITROGLYCERIN SL TABS 0.4 MG TAB SUBLINGUAL PRN (12:33)
[2018-10-17] MEDS: APIXABAN 2.5 MG TABLET PO SCH ×2 (13:47→20:57)
[2018-10-17] MEDS: INSULIN DETEMIR (LEVEMIR) 100 UNIT/ML SYR SQ SCH ×2 (15:06→20:58)
[2018-10-17 17:30] LABS: Glucose,Whole Blood 222 mg/dL (75-99)
[2018-10-17] MEDS: CALCIUM ACETATE 667 MG CAP PO SCH ×2 (17:40→21:00)
[2018-10-17] MEDS: INSULIN ASPART (NovoLOG) 100 UNIT/ML VIAL SQ SCH ×2 (17:40→20:57)
--- NOTE | 2018-10-17 18:43 | CONS ---
CONSULTATION Mr. Gillette is a 58-year-old male who is followed by Dr. Bowie on a regular basis. He has a history of chronic kidney disease, on hemodialysis, history of coronary artery disease and history of paroxysmal atrial fibrillation. He was in the hospital in August with an episode of atrial fibrillation that usually was occurring following his dialysis associated with severe hypotension. He was started at that time on amiodarone, with improvement in his symptoms. He had a busy weekend and this morning he woke up with a pounding in the chest associated with dizziness, nausea, cough and vomiting. He had no chest discomfort. His left ventricular systolic function has been preserved in the past. He has been on dialysis for about a year and underwent stenting of the left circumflex in February of 2018. He underwent repeat cardiac catheterization in July and at that time had patent stent to the left circumflex, chronically occluded right coronary artery, moderate disease in the LAD. He was on Eliquis and that was stopped because of an episode of epistaxis as well as an episode of bleeding from the site of a lost tooth. He has occasional peripheral edema. No clear PND. No orthopnea. He had no recent anginal pain. His coronary risk factors are remarkable for diabetes and hyperlipidemia. His medications at home included: 1. Amiodarone 100 mg twice a day. 2. Protonix. 3. Metoprolol tartrate 12.5 mg twice a day. 4. Insulin. 5. Neurontin. 6. Lasix 80 mg daily. 7. Plavix 75 mg daily. 8. Lipitor 80 mg daily. 9. Zyloprim. REVIEW OF SYSTEMS: RESPIRATORY SYSTEM: He has mild dyspnea on exertion with no change. He has no recent wheezing. GI SYSTEM: He had the nausea or vomiting this morning. No recent GI bleeding. SYSTEM: He has end-stage renal disease, on hemodialysis. NERVOUS SYSTEM: He has no history of stroke or seizure. When he presented to the emergency room today, he was in atrial fibrillation and subsequently converted spontaneously to sinus mechanism. PHYSICAL EXAMINATION: He is a 58-year-old male, alert, oriented, in no apparent distress. Blood pressure 153/70 with a heart rate in the 70s. On presentation, his heart rate was in the 120s. HEAD: Normocephalic. Eyes: Sclerae nonicteric. NECK: Good carotid upstroke. No bruit. No jugular venous distention. LUNGS: Clear to auscultation. HEART: Regular rate, rhythm. S1, S2. No S3. Systolic murmur. No diastolic murmur. No rub. ABDOMEN: Soft, nontender. Positive bowel sounds. No organomegaly EXTREMITIES: Trace edema. Intact distal pulses. LAB DATA/IMAGING: BUN and creatinine of 88 and 7.14. Troponin 0.036. TSH 7.1. Potassium 4.1, hemoglobin 11.2. Initial EKG revealed atrial fibrillation, rate of 118, normal axis, poor R-wave progression, nonspecific ST-T wave changes. Subsequently he was in sinus mechanism with no acute ST-segment changes. His chest x-ray shows no acute infiltrate. IMPRESSION: 1. Paroxysmal atrial fibrillation has been diagnosed in the past. The patient was not quite sure if the dose of his amiodarone was 200 twice a day or 100 twice a day. The patient has not been anticoagulated recently and he is on Plavix because of his history of CAD and stenting done this year. 2. End-stage renal disease, on hemodialysis. 3. History of coronary artery disease with multivessel coronary artery disease. 4. History of hyperlipidemia. 5. History of diabetes mellitus. RECOMMENDATIONS: I will stop the IV heparin. I will re-initiate treatment with Eliquis 2.5 mg twice a day. I will increase the dose of the amiodarone to 200 mg twice a day. Patient is scheduled to undergo dialysis today. Will continue the rest of his medical regimen. Increase his level of activity. If he has no further episode of arrhythmia, then I would expect he should be able to be discharged home and followed as an outpatient with Dr. Bowie. Thank you for this consult. Will follow with you. MMODL / IJN: [id number] / JENNI
[2018-10-17 20:56] LABS: Glucose,Whole Blood 191 mg/dL (75-99)
[2018-10-17] MEDS: METOPROLOL TARTRATE 12.5 MG TAB PO SCH (20:57)
[2018-10-17] MEDS: AMIODARONE 200 MG TAB PO SCH (20:57)
[2018-10-17] MEDS ORDERED: GABAPENTIN 300 MG CAP PO SCH (21:00)
[2018-10-18 03:42] LABS: Cholesterol 124 mg/dL (<200); HDL Cholesterol 41 mg/dL (40-60); LDL Cholesterol,Calculated 50 mg/dL (0-99); Triglycerides 167 mg/dL (<150)
[2018-10-18 06:54] LABS: Glucose,Whole Blood 85 mg/dL (75-99)
[2018-10-18] MEDS: INSULIN ASPART (NovoLOG) 100 UNIT/ML VIAL SQ SCH ×2 (07:03→12:16)
[2018-10-18 07:12] VITALS: RESP 15
[2018-10-18] MEDS ORDERED: PANTOPRAZOLE 40 MG TABLET PO SCH (07:30)
[2018-10-18] MEDS: METOPROLOL TARTRATE 12.5 MG TAB PO SCH (08:13)
[2018-10-18] MEDS: APIXABAN 2.5 MG TABLET PO SCH (08:13)
[2018-10-18] MEDS: CALCIUM ACETATE 667 MG CAP PO SCH (08:13)
[2018-10-18] MEDS: AMIODARONE 200 MG TAB PO SCH (08:14)
[2018-10-18] MEDS: INSULIN DETEMIR (LEVEMIR) 100 UNIT/ML SYR SQ SCH (08:14)
[2018-10-18] MEDS ORDERED: ALLOPURINOL 300 MG TAB PO SCH (09:00)
[2018-10-18] MEDS ORDERED: FUROSEMIDE 80 MG TAB PO SCH (09:00)
[2018-10-18] MEDS ORDERED: CLOPIDOGREL 75 MG TAB PO SCH (09:00)
[2018-10-18] MEDS ORDERED: ATORVASTATIN 80 MG TAB PO SCH (09:00)
[2018-10-18] MEDS ORDERED: ASPIRIN 325 MG TAB PO SCH (09:00)
[2018-10-18 12:06] LABS: Glucose,Whole Blood 124 mg/dL (75-99)
--- NOTE | 2018-10-18 15:19 | P.HPIM ---
History of Present Illness H&P Date: 10/17/18 Chief Complaint: Palpitations his is a 58-year-old male patient of Dr Mckeon with history of hypertension and hypertensive cardio vascular disease with left ventricular hypertrophy, coronary artery disease status post stenting of the left circumflex in February 2018 , chronic diastolic heart failure, end-stage renal disease on hemodialysis 3 times weekly, hyperlipidemia,uncontrolled diabetes mellitus type II. Patient had recent angioplasty and stenting of the first obtuse marginal branch of the circumflex on March [address] Bowie. Patient was also found to have a chronically totally occluded RCA fills with collaterals from the left system, intermediate disease in the LAD. He has also had recent angioplasty of the fistula to the left arm done by Dr. Santizo at [facility]. Patient had recent hospitalization on August 05 for symptoms of chest discomfort, he was seen in consultation by Dr. Hall and recommended to be discharged home to follow-up in the office post discharge for outpatient stress testing. she had multiple visits to the ER since July 2018for atrial fibrillation with RVR post hemodialysis. Patient presented to ER for evaluation of atrial fibrillation with RVR after he completed his hemodialysis. Patient apparently had recent stress, with the of family member, he also has had a lot of stress, and has been drinking a lot more caffeine, he is not on any anticoagulation during this admission, as he had tried to previous factor X A inhibition, for which he had epistaxis on Xarelto and elqiuis. He presented with some nausea, no chest pain or palpitations, no abdominal pain, no hemoptysis, no visible changes. His troponin emergency room was 0.036, heart rate of 110, he required Cardizem drip with bolus and converted to sinus rhythm heart rate of 77, heparin was started drip cardiology was consulted nephrology consulted for dialysis 2 at 11:00 today Review of Systems Constitutional: Reports as per HPI, Denies anorexia, Denies chills, Denies chronic headaches, Denies chronic pain, Denies daytime sleepiness, Denies fatigue, Denies fever, Denies lethargy, Denies malaise, Denies night sweats, Denies poor appetite, Denies sweats, Denies weakness, Denies weight gain, Denies weight loss Ears, nose, mouth and throat: Reports as per HPI, Denies ant. neck pain, Denies bleeding gums, Denies dental pain, Denies dysphagia, Denies epistaxis, Denies headache, Denies hoarseness, Denies mouth pain, Denies nasal congestion, Denies nasal discharge, Denies neck fullness/pressure, Denies neck lump, Denies nose pain, Denies odynophagia, Denies post-nasal drip, Denies sinus pain, Denies sinus pressure, Denies swelling in mouth, Denies swelling in throat, Denies sore throat, Denies vertigo, Denies voice changes Cardiovascular: Reports as per HPI, Reports palpitations, Denies chest pain, Denies claudication, Denies decreased exercise tolerance, Denies dyspnea on exertion, Denies edema, Denies high blood pressure, Denies irregular heart beat, Denies leg edema, Denies lightheadedness, Denies orthopnea, Denies paroxysmal nocturnal dyspnea, Denies phlebitis, Denies rapid heart beat, Denies shortness of breath, Denies syncope Respiratory: Reports as per HPI Gastrointestinal: Reports as per HPI, Denies abdominal pain, Denies belching, Denies bloating, Denies BRBPR, Denies change in bowel habits, Denies coffee ground emesis, Denies constipation, Denies diarrhea, Denies dyspepsia, Denies early satiety, Denies excessive gas, Denies heartburn, Denies hematemesis, Denies hematochezia, Denies indigestion, Denies jaundice, Denies lactose intolerance, Denies loss of appetite, Denies melena, Denies nausea, Denies vomiting Genitourinary: Reports as per HPI Musculoskeletal: Reports as per HPI Integumentary: Reports as per HPI, Denies acne, Denies boils, Denies brittle nails, Denies change in hair/nails, Denies color changes, Denies darkening of skin, Denies depigmentation, Denies dryness, Denies foot/leg ulcers, Denies growths, Denies hirsutism, Denies lesions, Denies onychomycosis, Denies pruritus, Denies rash, Denies sores, Denies striae, Denies unusual bruising, Denies wounds Neurological: Reports as per HPI Psychiatric: Reports as per HPI, Reports change in sleep habits Endocrine: Reports as per HPI, Denies cold intolerance, Denies deepening of the voice, Denies excessive sweating, Denies excessive thirst, Denies fatigue, Denies flushing, Denies heat intolerance, Denies high blood sugars, Denies increase in ring/shoe/hat size, Denies low blood sugars, Denies nocturia, Denies palpitations, Denies polydipsia, Denies polyphagia, Denies polyuria, Denies proptosis, Denies recent glucocorticoid use, Denies thyroid mass, Denies weight change Hematologic/Lymphatic: Reports as per HPI Allergic/Immunologic: Reports as per HPI, Denies allergic rhinitis, Denies anaphylaxis, Denies angioedema, Denies gluten intolerance, Denies persistent inf ections, Denies seasonal allergies, Denies urticaria, Denies wheezing Past Medical History Past Medical History: Atrial Fibrillation, Coronary Artery Disease (CAD), Heart Failure, Diabetes Mellitus, Dialysis, Eye Disorder, GERD/Reflux, Hearing Disorder / Deafness, Hyperlipidemia, Hypertension, Myocardial Infarction ([place]), Renal Disease, Syncope Additional Past Medical History / Comment(s): IDDM type II, neuropathy bilateral hands/feet, ESRD with hemodialysis on // with last time being 10/14/18, chronic anemia, LVH, Afib with RVR, MIs, chronic CHF, R eye blindness, L eye legally blind, RLS, pt unsure if he has gout, vertigo at times, balance issues at times, stomach ulcer at age 17yrs, sinus problems, very [place] R ear. Last Myocardial Infarction Date:: 08/09/18 History of Any Multi-Drug Resistant Organisms: None Reported Past Surgical History: Heart Catheterization, Heart Catheterization With Stent Additional Past Surgical History / Comment(s): TTT, PD catheter placement/since removed, 2016 L arm fistula, fistula gram with balloon for stenosis, L eye vitrectomy, thyroid needle aspiration-negative, L leg cyst, colonoscopy with benign polypectomy. Past Anesthesia/Blood Transfusion Reactions: Postoperative Nausea & Vomiting (PONV) Date of Last Stent Placement:: 03-03-18 Past Psychological History: Anxiety, Depression Additional Psychological History / Comment(s): Pt resides with his spouse. There has been increased stress r/t recent of pt's mother in law and alot of family around for . Pt states he has depression but denies suicidal thoughts/plans. He states he takes ativan for his anxiety if needed and that actually helps reduce some of his depression. Smoking Status: Former smoker Past Alcohol Use History: None Reported Additional Past Alcohol Use History / Comment(s): STARTED SMOKING AT AGE 12 WORKED UP TO ALMOST A PPD THEN QUIT 23 YEARS AGO Past Drug Use History: None Reported - Past Family History Father Family Medical History: Cancer, Hyperlipidemia Additional Family Medical History / Comment(s): ? BRAIN CANCER Mother Family Medical History: Diabetes Mellitus, Osteoarthritis (OA) Additional Family Medical History / Comment(s): DJD. MOM IS STILL ALIVE AT AGE 80 Sister(s) Family Medical History: Diabetes Mellitus Brother(s) Family Medical History: Diabetes Mellitus Additional Family Medical History / Comment(s): Patient has 4 kids no major medical problems. Medications and Allergies Home Medications Medication Instructions Recorded Confirmed Type Clopidogrel [Plavix] 75 mg PO DAILY #30 tab 03/05/18 10/17/18 Rx Nitroglycerin Sl Tabs [Nitrostat] 0.4 mg SUBLINGUAL Q5M PRN #25 tab 03/05/18 Rx Insulin Glargine,Hum.rec.anlog 20 unit SQ BID 03/24/18 10/17/18 History [Basaglar Kwikpen U-100] Allopurinol [Zyloprim] 150 mg PO DAILY 08/05/18 10/17/18 History Calcium Acetate [PhosLo] 1,334 mg PO TID 08/05/18 10/17/18 History Furosemide [Lasix] 80 mg PO DAILY 08/05/18 10/17/18 History Gabapentin [Neurontin] 300 mg PO HS 08/05/18 10/17/18 History Insulin Aspart [NovoLOG Flexpen] See Protocol SQ ACHS 08/05/18 10/17/18 History LORazepam [Ativan] 2 mg PO HS PRN 08/05/18 10/17/18 History Atorvastatin [Lipitor] 80 mg PO DAILY #30 tab 08/11/18 10/17/18 Rx Metoprolol Tartrate [Lopressor] 12.5 mg PO BID #60 tab 08/11/18 10/17/18 Rx Pantoprazole [Protonix] 40 mg PO AC-BRKFST #30 tablet. 08/11/18 10/17/18 Rx Amiodarone [Cordarone] 200 mg PO BID #60 tab 10/18/18 Rx Apixaban [Eliquis] 2.5 mg PO BID #60 tablet 10/18/18 Rx Allergies Allergy/AdvReac Type Severity Reaction Status Date / Time codeine AdvReac Hallucinati Verified 10/17/18 08:00 ons morphine AdvReac Confusion Verified 10/17/18 08:00 All antibiotics except Keflex Allergy Unknown Uncoded 09/25/18 16:37 Childhood Physical Exam Vitals: Vital Signs Temp Pulse Resp BP Pulse Ox 10/18/18 06:39 99.1 F 54 L 15 120/64 96 10/18/18 03:16 16 10/18/18 02:06 99.3 F 68 18 119/62 97 10/17/18 23:08 61 15 10/17/18 23:00 98.7 F 72 18 145/70 93 L 10/17/18 20:50 98.4 F 62 16 144/70 99 10/17/18 17:35 97.4 F L 66 18 166/68 Intake and Output 10/18/18 10/18/18 10/18/18 06:59 14:59 22:59 Intake Total 320 Balance 320 Intake: Oral 320 Other: Voiding Method Toilet # Voids 1 1 - Constitutional General appearance: cooperative, no acute distress - EENT Eyes: anicteric sclerae, EOMI, PERRLA, dentition normal, normal appearance ENT: NA/AT, normal oropharynx - Neck Neck: normal ROM - Respiratory Respiratory: bilateral: CTA, negative: diminished, dullness, rales, rhonchi, wheezing - Cardiovascular Rhythm: regular Heart sounds: normal: S1, S2 Abnormal Heart Sounds: systolic murmur, no diastolic murmur, no rub, no S3 Gallop, no S4 Gallop, no click, no other - Gastrointestinal General gastrointestinal: normal bowel sounds - Integumentary Integumentary: decreased turgor, normal - Neurologic Neurologic: CNII-XII intact - Musculoskeletal Musculoskeletal: gait normal, strength equal bilaterally - Psychiatric Psychiatric: A&O x's 3, appropriate affect, intact judgment & insight Results CBC & Chem 7: 10/17/18 07:59 10/17/18 07:59 Labs: Abnormal Lab Results - Last 24 Hours (Table) 10/17/18 10/17/18 10/17/18 Range/Units 07:59 17:27 19:31 POC Glucose (mg/dL) 222 H (75-99) mg/dL Troponin I 0.266 H* (0.000-0.034) ng/mL Triglycerides 167 H (<150) mg/dL 10/17/18 10/18/18 Range/Units 20:54 11:50 POC Glucose (mg/dL) 191 H 124 H (75-99) mg/dL Troponin I (0.000-0.034) ng/mL Triglycerides (<150) mg/dL Laboratory Results WBC 14.4 k/uL (3.8-10.6) H 10/17/18 07:59 RBC 3.79 m/uL (4.30-5.90) L 10/17/18 07:59 Hgb 11.2 gm/dL (13.0-17.5) L 10/17/18 07:59 Hct 35.2 % (39.0-53.0) L 10/17/18 07:59 MCV 92.8 fL (80.0-100.0) 10/17/18 07:59 MCH 29.5 pg (25.0-35.0) 10/17/18 07:59 MCHC 31.8 g/dL (31.0-37.0) 10/17/18 07:59 RDW 14.4 % (11.5-15.5) 10/17/18 07:59 Plt Count 269 k/uL (150-450) 10/17/18 07:59 Neutrophils % 79 % 10/17/18 07:59 Lymphocytes % 10 % 10/17/18 07:59 Monocytes % 5 % 10/17/18 07:59 Eosinophils % 4 % 10/17/18 07:59 Basophils % 1 % 10/17/18 07:59 Neutrophils # 11.4 k/uL (1.3-7.7) H 10/17/18 07:59 Lymphocytes # 1.4 k/uL (1.0-4.8) 10/17/18 07:59 Monocytes # 0.7 k/uL (0-1.0) 10/17/18 07:59 Eosinophils # 0.5 k/uL (0-0.7) 10/17/18 07:59 Basophils # 0.1 k/uL (0-0.2) 10/17/18 07:59 PT 10.3 sec (9.0-12.0) 10/17/18 07:59 INR 1.0 (<1.2) 10/17/18 07:59 APTT 25.8 sec (22.0-30.0) 10/17/18 07:59 Sodium 144 mmol/L (137-145) 10/17/18 07:59 Potassium 4.1 mmol/L (3.5-5.1) 10/17/18 07:59 Chloride 104 mmol/L (98-107) 10/17/18 07:59 Carbon Dioxide 23 mmol/L (22-30) 10/17/18 07:59 Anion Gap 17 mmol/L 10/17/18 07:59 BUN 88 mg/dL (9-20) H 10/17/18 07:59 Creatinine 7.14 mg/dL (0.66-1.25) H* 10/17/18 07:59 Est GFR (CKD-EPI)AfAm 9 (>60 ml/min/1.73 sqM) 10/17/18 07:59 Est GFR (CKD-EPI)NonAf 8 (>60 ml/min/1.73 sqM) 10/17/18 07:59 Glucose 271 mg/dL (74-99) H 10/17/18 07:59 POC Glucose (mg/dL) 124 mg/dL (75-99) H 10/18/18 11:50 POC Glu Facility Mechanic Nikki Skaggs 10/18/18 11:50 Calcium 9.8 mg/dL (8.4-10.2) 10/17/18 07:59 Magnesium 2.2 mg/dL (1.6-2.3) 10/17/18 07:59 Total Bilirubin 0.5 mg/dL (0.2-1.3) 10/17/18 07:59 AST 22 U/L (17-59) 10/17/18 07:59 ALT 42 U/L (21-72) 10/17/18 07:59 Alkaline Phosphatase 151 U/L (38-126) H 10/17/18 07:59 Troponin I 0.266 ng/mL (0.000-0.034) H* 10/17/18 19:31 Total Protein 7.2 g/dL (6.3-8.2) 10/17/18 07:59 Albumin 4.4 g/dL (3.5-5.0) 10/17/18 07:59 Triglycerides 167 mg/dL (<150) H 10/17/18 07:59 Cholesterol 124 mg/dL (<200) 10/17/18 07:59 LDL Cholesterol, Calc 50 mg/dL (0-99) 10/17/18 07:59 HDL Cholesterol 41 mg/dL (40-60) 10/17/18 07:59 TSH 1.710 mIU/L (0.465-4.680) 10/17/18 07:59 Free T4 1.46 ng/dL (0.78-2.19) 10/17/18 07:59 Free T3 pg/mL 2.7 pg/ml (2.8-5.3) L 10/17/18 07:59 Thrombosis Risk Factor Assmnt - Choose All That Apply Any of the Below Risk Factors Present?: Yes Each Factor Represents 1 point: Age 41-60 years, Obesity (BMI >25) Other Risk Factors: No Other congenital or acquired thrombophilia - If yes, enter type in comment: No Thrombosis Risk Factor Assessment Total Risk Factor Score: 2 Thrombosis Risk Factor Assessment Level: Low Risk Assessment and Plan Plan: 1. Atrial fibrillation with rapid ventricular response, paroxysmal atrial fibrillation.off Cardizem drip, heparin drip continue metoprolol 12.5 mg by mouth twice a day. Amiodarone 200 mg twice a day . We'll start on L Hernández for discharge 2.5 mg twice a day, diminished triggers including caffeine, stress, 2. Uncontrolled type 2 diabetes on Levemir 30 with the sliding scale at home. No change Levemir to 20 mgsubcu twice a daywith sliding scale. Patient was supposed to see Dr. miller as outpatient but is noncompliant stopped seeing him 3. History of coronary artery disease with previous left heart catheterization angioplasty and stenting of the first obtuse marginal branch of the circumflex on March [address] Bowie. Patient was also found to have a chronically totally occluded RCA fills with collaterals from the left system, intermediate disease in the LAD Continue aspirin 81 mg orally once every day, Plavix 75 mg orally once every day, Lopressor 12.5 mg orally twice every day, Lipitor 80 mg once every day. 3. Chronic diastolic heart failure. Continue Lasix 80 mg daily. 4.Anemia of chronic disease likely secondary to end-stage renal disease hemoglobin stable at 10.2 5. End-stage renal disease on hemodialysis 3 times weekly. Consult with nephrology. 6. Diabetic polyneuropathy. Continue gabapentin 300 mg at bedtime. 7. Hypertension and hypertensive cardio vascular disease with left ventricular hypertrophy. Continue Lopressor. 6. History of restless leg syndrome. Stable at this time. 7. History of gout. Continue allopurinol 150 mg orally once every day. 8. DVT prophylaxis. xarelto 9. GI prophylaxis. Continue with Protonix 40 mg orally once every day. 10. Patient is full code.
[2018-10-18 15:23] VITALS: BP 160/75; PULSE 53; TEMP 98.5
--- NOTE | 2018-10-18 16:10 | P.DS ---
Providers Date of admission: 10/17/18 09:31 Expected date of discharge: 10/18/18 Attending physician: Cordelia Pantoja Consults: 10/17/18 09:30 Consult Physician Routine Consulting Provider: Janine Nguyen Consult Reason/Comments: ESRD on dialysis MWF Do you want consulting provider notified?: Yes Consult Physician Urgent Consulting Provider: Andry Bowie Consult Reason/Comments: Afib RVR Do you want consulting provider notified?: Yes [facility]: his is a 58-year-old male patient of Dr Mckeon with history of hypertension and hypertensive cardio vascular disease with left ventricular hypertrophy, coronary artery disease status post stenting of the left circumflex in February 2018 , chronic diastolic heart failure, end-stage renal disease on hemodialysis 3 times weekly, hyperlipidemia,uncontrolled diabetes mellitus type II. Patient had recent angioplasty and stenting of the first obtuse marginal branch of the circumflex on March [address] Bowie. Patient was also found to have a chronically totally occluded RCA fills with collaterals from the left system, intermediate disease in the LAD. He has also had recent angioplasty of the fistula to the left arm done by Dr. Santizo at [facility]. Patient had recent hospitalization on August 05 for symptoms of chest discomfort, he was seen in consultation by Dr. Hall and recommended to be discharged home to follow-up in the office post discharge for outpatient stress testing. she had multiple visits to the ER since July 2018for atrial fibrillation with RVR post hemodialysis. Patient presented to ER for evaluation of atrial fibrillation with RVR after he completed his hemodialysis. Patient apparently had recent stress, with the [place] th of family member, he also has had a lot of stress, and has been drinking a lot more caffeine, he is not on any anticoagulation during this admission, as he had tried to previous factor X A inhibition, for which he had epistaxis on Xarelto and elqiuis. He presented with some nausea, no chest pain or palpitations, no abdominal pain, no hemoptysis, no visible changes. His troponin emergency room was 0.036, heart rate of 110, he required Cardizem drip with bolus and converted to sinus rhythm heart rate of 77, heparin was started drip cardiology was consulted nephrology consulted for dialysis 2 at 11:00 today 10/18: Patient underwent hemodialysis yesterday afternoon with removal of 2 L of fluid. Patient has been seen by Dr. Wills and heparin was discontinued, patient was resumed on eliquis and he increased the dose of amiodarone to 200 mg twice a day. Patient is to follow up with Dr. Bowie as an outpatient. HR 54, BP 120/64, PO 965 on room air. awake overnight monitor sinus rhythm. Patient denies any new complaints. He is anxious to be discharged home. Patient will be discharged today in stable condition. Discharge diagnoses: 1. Atrial fibrillation with rapid ventricular response, paroxysmal atrial fibrillation. 2. Uncontrolled type 2 diabetes with hyperglycemia. 3. History of coronary artery disease with previous left heart catheterization angioplasty and stenting of the first obtuse marginal branch of the circumflex on March [address] Bowie. Patient was also found to have a chronically totally occluded RCA fills with collaterals from the left system, intermediate disease in the LAD. 4. Chronic diastolic heart failure. 5. Anemia of chronic disease secondary to end-stage renal disease. 6. End-stage renal disease on hemodialysis 3 times weekly. 7. Diabetic polyneuropathy. 8. Hypertension and hypertensive cardiovascular disease with left ventricular hypertrophy. 9. History of restless leg syndrome. 10. Chronic gout. Discharge plan: Home Impression and plan of care have been directed as dictated by the signing physician. Katelyn Wesley nurse practitioner acting as scribe for signing physician. Patient Condition at Discharge: Good Plan - Discharge Summary Discharge Rx Participant: No New Discharge Prescriptions: New Amiodarone [Cordarone] 200 mg PO BID #60 tab Apixaban [Eliquis] 2.5 mg PO BID #60 tablet Continue Clopidogrel [Plavix] 75 mg PO DAILY #30 tab Nitroglycerin Sl Tabs [Nitrostat] 0.4 mg SUBLINGUAL Q5M PRN #25 tab PRN Reason: Chest Pain Insulin Glargine,Hum.rec.anlog [Basaglar Kwikpen U-100] 20 unit SQ BID Gabapentin [Neurontin] 300 mg PO HS Furosemide [Lasix] 80 mg PO DAILY Allopurinol [Zyloprim] 150 mg PO DAILY Insulin Aspart [NovoLOG Flexpen] See Protocol SQ ACHS Calcium Acetate [PhosLo] 1,334 mg PO TID LORazepam [Ativan] 2 mg PO HS PRN PRN Reason: anxiety Atorvastatin [Lipitor] 80 mg PO DAILY #30 tab Metoprolol Tartrate [Lopressor] 12.5 mg PO BID #60 tab Pantoprazole [Protonix] 40 mg PO AC-BRKFST #30 tablet. Discontinued Amiodarone HCl [Pacerone] 100 mg PO BID Discharge Medication List Clopidogrel [Plavix] 75 mg PO DAILY #30 tab 03/05/18 [Rx] Nitroglycerin Sl Tabs [Nitrostat] 0.4 mg SUBLINGUAL Q5M PRN #25 tab 03/05/18 [Rx] Insulin Glargine,Hum.rec.anlog [Basaglar Kwikpen U-100] 20 unit SQ BID 03/24/18 [History] Allopurinol [Zyloprim] 150 mg PO DAILY 08/05/18 [History] Calcium Acetate [PhosLo] 1,334 mg PO TID 08/05/18 [History] Furosemide [Lasix] 80 mg PO DAILY 08/05/18 [History] Gabapentin [Neurontin] 300 mg PO HS 08/05/18 [History] Insulin Aspart [NovoLOG Flexpen] See Protocol SQ ACHS 08/05/18 [History] LORazepam [Ativan] 2 mg PO HS PRN 08/05/18 [History] Atorvastatin [Lipitor] 80 mg PO DAILY #30 tab 08/11/18 [Rx] Metoprolol Tartrate [Lopressor] 12.5 mg PO BID #60 tab 08/11/18 [Rx] Pantoprazole [Protonix] 40 mg PO AC-BRKFST #30 tablet. 08/11/18 [Rx] Amiodarone [Cordarone] 200 mg PO BID #60 tab 10/18/18 [Rx] Apixaban [Eliquis] 2.5 mg PO BID #60 tablet 10/18/18 [Rx] Follow up Appointment(s)/Referral(s): Andry Bowie MD [STAFF PHYSICIAN] - 10/28/18 3:45 pm Ten Mckeon DO [Primary Care Provider] - 1 Week (office will call with appointment time) Patient Instructions/Handouts: A-fib (Atrial Fibrillation) (DC) Discharge Disposition: HOME SELF-CARE
--- NOTE | 2018-10-18 19:57 | CONS ---
CONSULTATION REASON FOR CONSULT: End-stage renal disease. HISTORY OF PRESENT ILLNESS: The patient is a 58-year-old male with end-stage renal disease, on hemodialysis on a Wednesday, Wednesday, Wednesday schedule. He was admitted to the hospital with complaints of rapid heart rate and shortness of breath. The patient did have his hemodialysis yesterday. He tolerated the dialysis well in the hospital. The patient has been evaluated by Cardiology. His amiodarone was increased and he will be likely discharged home today. No complaints of fever, chills, nausea, vomiting, abdominal pain or cough. PAST MEDICAL HISTORY: End-stage renal disease, coronary artery disease, gastroesophageal reflux disease, history of atrial fibrillation, CKD, mineral bone disorder, anemia of chronic disease, dyslipidemia, type 2 diabetes, history of [place], neuropathy with the patient being legally blind in the left eye and blindness in the right eye. PAST SURGICAL HISTORY: Left eye vitrectomy, colonoscopy, left arm AV fistula, PD catheter placement removal, fistulogram and angioplasty of this fistula. SOCIAL HISTORY: Patient is a former smoker. No history of drug abuse or alcohol abuse. MEDICATIONS: Prior to admission included Zyloprim, PhosLo, Lasix, Neurontin, insulin, Ativan, Pacerone, Plavix, Nitrostat, Lipitor, Lopressor, Protonix. ALLERGIES: INCLUDE CODEINE, MORPHINE, ANTIBIOTICS, EXCEPT KEFLEX. EXAMINATION: Patient is comfortable, awake, alert, oriented x3, not in any acute distress. Blood pressure was 120/64, heart rate 54 per minute. Patient is afebrile. Examination of the heart S1, S2. Examination of the lungs, bilateral breath sounds are heard. Abdomen is soft, nontender. Exam of lower extremities shows no significant edema. EARTH BURNER exam grossly intact. LAB: Show serum troponin 0.266. Sodium 144, potassium 4.1 from yesterday. ASSESSMENT: 1. End-stage renal disease, on hemodialysis on a Wednesday, Wednesday, Wednesday schedule, status post hemodialysis yesterday. The patient tolerated his treatment well. 2. Atrial fibrillation with RVR with plans for discharge today. Amiodarone has been increased. Patient is being followed by Cardiology. 3. Chronic kidney disease mineral bone disorder. 4. Anemia of chronic disease. 5. Hypertension, currently controlled. 6. Coronary artery disease with history of myocardial infarction and cardiac catheterization and coronary stent placement recently. PLAN: Hemodialysis in a.m. Continue current cardiac medications. MMODL / IJN: [id number] /
== END 2018-10-18 15:29 | disposition home or self-care (01) | DRG 308 ==
LOC: EC 07:29 → 3SCARD 09:31 → 4SSUR 22:58
PROVIDERS: ADMIT Family Medicine; ATTEND Family Medicine
PROC: 5A1D70Z Performance of Urinary Filtration, Intermittent, Less than 6 Hours Per Day (ICD-10-PCS; principal; 2018-10-17)
DX: I48.0 Paroxysmal atrial fibrillation (principal); N18.6 End stage renal disease; I13.2 Hypertensive heart and chronic kidney disease with heart failure and with stage 5 chronic kidney disease, or end stage renal disease; I50.32 Chronic diastolic (congestive) heart failure; E11.22 Type 2 diabetes mellitus with diabetic chronic kidney disease; E11.40 Type 2 diabetes mellitus with diabetic neuropathy, unspecified; I25.10 Atherosclerotic heart disease of native coronary artery without angina pectoris; E78.5 Hyperlipidemia, unspecified; K21.9 Gastro-esophageal reflux disease without esophagitis; D63.1 Anemia in chronic kidney disease; E11.42 Type 2 diabetes mellitus with diabetic polyneuropathy; E11.65 Type 2 diabetes mellitus with hyperglycemia; G25.81 Restless legs syndrome; H54.8 Legal blindness, as defined in USA; H91.90 Unspecified hearing loss, unspecified ear; I25.82 Chronic total occlusion of coronary artery; M1A.9XX0 Chronic gout, unspecified, without tophus (tophi); M89.9 Disorder of bone, unspecified; F41.9 Anxiety disorder, unspecified; F32.9 Major depressive disorder, single episode, unspecified; I25.2 Old myocardial infarction; Z99.2 Dependence on renal dialysis; Z95.5 Presence of coronary angioplasty implant and graft; Z79.899 Other long term (current) drug therapy; Z79.02 Long term (current) use of antithrombotics/antiplatelets; Z86.010 Personal history of colon polyps; Z87.891 Personal history of nicotine dependence; Z83.3 Family history of diabetes mellitus; Z80.8 Family history of malignant neoplasm of other organs or systems; Z88.1 Allergy status to other antibiotic agents; Z88.5 Allergy status to narcotic agent; Z79.01 Long term (current) use of anticoagulants; Z79.4 Long term (current) use of insulin; Z79.82 Long term (current) use of aspirin; Z91.19 Patient's noncompliance with other medical treatment and regimen
CPT/HCPCS: 36415; 71046; 80053; 80061; 83735; 84439; 84443; 84481; 84484; 85025; 85610; 85730; 90935; 93005; 96365; 96366; 96375; 96376; 99285

== ENCOUNTER 2018-10-19 14:33 | Inpatient (IN) | payer MEDICARE ==
[2018-10-19] MEDS ORDERED: ASPIRIN 81 MG PO STA (15:18)
[2018-10-19] MEDS ORDERED: NITROGLYCERIN OINT 1 INCH/GM PACKET TOPICAL STA (15:18)
--- NOTE | 2018-10-19 15:20 | ED ---
General Adult HPI - General Chief complaint: Arrhythmia/Palpitations Stated complaint: Chest Pain Time Seen by Provider: 10/19/18 14:48 Source: patient, EMS Mode of arrival: EMS Limitations: no limitations - History of Present Illness Initial comments: 58-year-old male with history of diabetes, hypertension, end-stage renal disease on dialysis, myocardial infarction 2018 presented today for chief complaint of increase of heart rate. Patient states he was at dialysis today he was recently released yesterday for admission due to atrial fibrillation with rapid ventricular response. Patient states his heart rate during dialysis increased to the 140s. This persisted and then patient was transferred to the emergency department for further evaluation. Patient states that he does have some left- sided chest discomfort. This started about 45 minutes prior to arrival. Denies nausea, abdominal pain, back pain, leg swelling, arm pain, jaw pain, SOB. Patient has no other complaints. Patient received half of his dialysis prior to arrival in the ED. - Related Data Home Medications Medication Instructions Recorded Confirmed Insulin Glargine,Hum.rec.anlog 20 unit SQ BID 03/24/18 10/19/18 [Basaglar Kwikpen U-100] Allopurinol [Zyloprim] 150 mg PO DAILY 08/05/18 10/19/18 Calcium Acetate [PhosLo] 1,334 mg PO TID 08/05/18 10/19/18 Furosemide [Lasix] 80 mg PO DAILY 08/05/18 10/19/18 Gabapentin [Neurontin] 300 mg PO HS 08/05/18 10/19/18 Insulin Aspart [NovoLOG Flexpen] See Protocol SQ ACHS 08/05/18 10/19/18 LORazepam [Ativan] 2 mg PO HS PRN 08/05/18 10/19/18 Previous Rx's Medication Instructions Recorded Clopidogrel [Plavix] 75 mg PO DAILY #30 tab 03/05/18 Nitroglycerin Sl Tabs [Nitrostat] 0.4 mg SUBLINGUAL Q5M PRN #25 tab 03/05/18 Atorvastatin [Lipitor] 80 mg PO DAILY #30 tab 08/11/18 Metoprolol Tartrate [Lopressor] 12.5 mg PO BID #60 tab 08/11/18 Pantoprazole [Protonix] 40 mg PO SOPHIE-ESAU #30 marquita. 08/11/18 Amiodarone [Cordarone] 200 mg PO BID #60 tab 10/18/18 Apixaban [Eliquis] 2.5 mg PO BID #60 tablet 10/18/18 Allergies Allergy/AdvReac Type Severity Reaction Status Date / Time codeine AdvReac Hallucinati Verified 10/19/18 15:53 ons morphine AdvReac Confusion Verified 10/19/18 15:53 All antibiotics except Keflex Allergy Unknown Uncoded 09/25/18 16:37 Childhood Review of Systems ROS Statement: Those systems with pertinent positive or pertinent negative responses have been documented in the HPI. ROS Other: All systems not noted in ROS Statement are negative. Past Medical History Past Medical History: Atrial Fibrillation, Coronary Artery Disease (CAD), Heart Failure, Diabetes Mellitus, Dialysis, Eye Disorder, GERD/Reflux, Hearing Disorder / Deafness, Hyperlipidemia, Hypertension, Myocardial Infarction ([place]), Renal Disease, Syncope Additional Past Medical History / Comment(s): IDDM type II, neuropathy bilateral hands/feet, ESRD with hemodialysis on // with last time being 10/14/18, chronic anemia, LVH, Afib with RVR, MIs, chronic CHF, R eye blindness, L eye legally blind, RLS, pt unsure if he has gout, vertigo at times, balance issues at times, stomach ulcer at age 17yrs, sinus problems, very [place] R ear. Last Myocardial Infarction Date:: 08/09/18 History of Any Multi-Drug Resistant Organisms: None Reported Past Surgical History: Heart Catheterization, Heart Catheterization With Stent Additional Past Surgical History / Comment(s): TTT, PD catheter placement/since removed, 2016 L arm fistula, fistula gram with balloon for stenosis, L eye vitrectomy, thyroid needle aspiration-negative, L leg cyst, colonoscopy with benign polypectomy. Past Anesthesia/Blood Transfusion Reactions: Postoperative Nausea & Vomiting (PONV) Date of Last Stent Placement:: 03-03-18 Past Psychological History: Anxiety, Depression Smoking Status: Former smoker Past Alcohol Use History: None Reported Past Drug Use History: None Reported - Past Family History Father Family Medical History: Cancer, Hyperlipidemia Additional Family Medical History / Comment(s): ? BRAIN CANCER Mother Family Medical History: Diabetes Mellitus, Osteoarthritis (OA) Additional Family Medical History / Comment(s): DJD. MOM IS STILL ALIVE AT AGE 80 Sister(s) Family Medical History: Diabetes Mellitus Brother(s) Family Medical History: Diabetes Mellitus Additional Family Medical History / Comment(s): Patient has 4 kids no major medical problems. General Exam - General Exam Comments Initial Comments: General: The patient is awake and alert, in no distress Eye: Pupils are equal, round and reactive to light, extra-ocular movements are intact. No nystagmus. There is normal conjunctiva bilaterally. No signs of icterus. Cardiovascular: There is a regular rate and rhythm. No murmur, rub or gallop is appreciated. Respiratory: Lungs are clear to auscultation, respirations are non-labored, breath sounds are equal. No wheezes, stridor, rales, or rhonchi. Gastrointestinal: Obsese, soft, non-distended, non-tender abdomen without masses or organomegaly noted. There is no rebound or guarding present. Bowel sounds are unremarkable. Musculoskeletal: Normal ROM, no tenderness. Strength 5/5. Sensation intact. Radial pulses equal bilaterally 2+. Neurological: A&O x 3. CN II-XII intact grossly, There are no obvious motor or sensory deficits. Coordination appears grossly intact. Speech is normal. Skin: Skin is warm and dry and no rashes or lesions are noted. No LE edema. Psychiatric: Cooperative, appropriate mood & affect, normal judgment. Limitations: no limitations Course Vital Signs 10/19/18 14:38 Temperature 98 F Pulse Rate 58 L Respiratory 17 Rate Blood Pressure 152/73 O2 Sat by Pulse 97 Oximetry EKG Findings - EKG Comments: EKG Findings:: Ventricular rate 65 bpm, ND interval 170 ms, QRS duration 96 ms, QT/QTc 504/524 ms. Sinus rhythm with premature superventricular complexes with occasional PVC. Left atrial enlargement noted. Nonspecific T-wave inversion. No ST elevation or depression. Medical Decision Making - Medical Decision Making 58-year-old male history of atrial fibrillation in stage renal disease on dialysis presented for chief complaint of palpations chest discomfort. Patient states he had not the discomfort until he was told his HR was 130-140s. Patient denies pain but describes it as a left sided discomfort. Patient Initial troponin (-), EKG no acute finding for ACS, however QT elongation is noted. Patient CXR WNL. Patient has no LE edema. Patient received half of dialysis. Patient is on antiplatelet therapy, was given aspirin and nitro ointment in ER. Discussed the case with the provider Dr. Kaur who reviewed EKG and spoke with the admitting provider. Cardiology consult. Patient placed in observation unit for serial troponins. Patient agreeable with admission. - Lab Data Result diagrams: 10/19/18 15:10 10/19/18 15:10 Lab Results 10/19/18 10/19/18 10/19/18 Range/Units 15:10 15:10 15:10 WBC 8.0 (3.8-10.6) k/uL RBC 3.53 L (4.30-5.90) m/uL Hgb 10.8 L (13.0-17.5) gm/dL Hct 32.6 L (39.0-53.0) % MCV 92.4 (80.0-100.0) fL MCH 30.4 (25.0-35.0) pg MCHC 32.9 (31.0-37.0) g/dL RDW 15.7 H (11.5-15.5) % Plt Count 265 (150-450) k/uL Neutrophils % 71 % Lymphocytes % 15 % Monocytes % 6 % Eosinophils % 5 % Basophils % 1 % Neutrophils # 5.7 (1.3-7.7) k/uL Lymphocytes # 1.2 (1.0-4.8) k/uL Monocytes # 0.5 (0-1.0) k/uL Eosinophils # 0.4 (0-0.7) k/uL Basophils # 0.1 (0-0.2) k/uL PT 10.7 (9.0-12.0) sec INR 1.0 (<1.2) APTT 31.7 H (22.0-30.0) sec Sodium 137 (137-145) mmol/L Potassium 3.9 (3.5-5.1) mmol/L Chloride 96 L (98-107) mmol/L Carbon Dioxide 30 (22-30) mmol/L Anion Gap 11 mmol/L BUN 57 H (9-20) mg/dL Creatinine 4.43 H (0.66-1.25) mg/dL Est GFR (CKD-EPI)AfAm 16 (>60 ml/min/1.73 sqM) Est GFR (CKD-EPI)NonAf 14 (>60 ml/min/1.73 sqM) Glucose 207 H (74-99) mg/dL Calcium 9.2 (8.4-10.2) mg/dL Magnesium 2.2 (1.6-2.3) mg/dL Total Bilirubin 0.4 (0.2-1.3) mg/dL AST 20 (17-59) U/L ALT 35 (21-72) U/L Alkaline Phosphatase 141 H (38-126) U/L Troponin I (0.000-0.034) ng/mL Total Protein 6.8 (6.3-8.2) g/dL Albumin 4.0 (3.5-5.0) g/dL 10/19/18 Range/Units 15:10 WBC (3.8-10.6) k/uL RBC (4.30-5.90) m/uL Hgb (13.0-17.5) gm/dL Hct (39.0-53.0) % MCV (80.0-100.0) fL MCH (25.0-35.0) pg MCHC (31.0-37.0) g/dL RDW (11.5-15.5) % Plt Count (150-450) k/uL Neutrophils % % Lymphocytes % % Monocytes % % Eosinophils % % Basophils % % Neutrophils # (1.3-7.7) k/uL Lymphocytes # (1.0-4.8) k/uL Monocytes # (0-1.0) k/uL Eosinophils # (0-0.7) k/uL Basophils # (0-0.2) k/uL PT (9.0-12.0) sec INR (<1.2) APTT (22.0-30.0) sec Sodium (137-145) mmol/L Potassium (3.5-5.1) mmol/L Chloride (98-107) mmol/L Carbon Dioxide (22-30) mmol/L Anion Gap mmol/L BUN (9-20) mg/dL Creatinine (0.66-1.25) mg/dL Est GFR (CKD-EPI)AfAm (>60 ml/min/1.73 sqM) Est GFR (CKD-EPI)NonAf (>60 ml/min/1.73 sqM) Glucose (74-99) mg/dL Calcium (8.4-10.2) mg/dL Magnesium (1.6-2.3) mg/dL Total Bilirubin (0.2-1.3) mg/dL AST (17-59) U/L ALT (21-72) U/L Alkaline Phosphatase (38-126) U/L Troponin I 0.032 (0.000-0.034) ng/mL Total Protein (6.3-8.2) g/dL Albumin (3.5-5.0) g/dL Disposition Clinical Impression: Chest discomfort, Heart palpitations Disposition: ADMITTED IP TO THIS HOSP Condition: Stable Is patient prescribed a controlled substance at d/c from ED?: No Referrals: Ten Mckeon DO [Primary Care Provider] - 1-2 days Time of Disposition: 16:00 Decision to Admit Reason: Admit from EC Decision Date: 10/19/18 Decision Time: 16:00
[2018-10-19 15:21] LABS: Basophils # (A) 0.1 k/uL (0-0.2); Basophils % (A) 1 %; Eosinophils # (A) 0.4 k/uL (0-0.7); Eosinophils % (A) 5 %; HCT 32.6 % (39.0-53.0); HGB 10.8 gm/dL (13.0-17.5); Lymphocytes # (A) 1.2 k/uL (1.0-4.8); Lymphocytes % (A) 15 %; MCH 30.4 pg (25.0-35.0); MCHC 32.9 g/dL (31.0-37.0); MCV 92.4 fL (80.0-100.0); Mean Platelet Volume 7.4; Monocytes # (A) 0.5 k/uL (0-1.0); Monocytes % (A) 6 %; Neutrophils # (A) 5.7 k/uL (1.3-7.7); Neutrophils % (A) 71 %; Platelet Count 265 k/uL (150-450); RBC 3.53 m/uL (4.30-5.90); RDW 15.7 % (11.5-15.5)
[2018-10-19 15:28] LABS: Calcium 9.2 mg/dL (8.4-10.2); Magnesium 2.2 mg/dL (1.6-2.3); Potassium 3.9 mmol/L (3.5-5.1); Total Bilirubin 0.4 mg/dL (0.2-1.3); Total Protein 6.8 g/dL (6.3-8.2)
[2018-10-19 15:34] LABS: Partial Thromboplastin Time 31.7 sec (22.0-30.0); Prothrombin Time 10.7 sec (9.0-12.0)
--- NOTE | 2018-10-19 15:56 | XR ---
EXAMINATION TYPE: XR chest 2V DATE OF EXAM: 10/19/2018 COMPARISON: 10/17/2018 INDICATION: Dysrhythmia TECHNIQUE: Frontal and lateral views of the chest are obtained. FINDINGS: The heart size is normal. The pulmonary vasculature is normal. The lungs are clear. IMPRESSION: 1. No acute pulmonary process.
[2018-10-19] MEDS ORDERED: NITROGLYCERIN SL TABS 0.4 MG TAB SUBLINGUAL PRN ×2 (16:00→20:12)
[2018-10-19] MEDS ORDERED: LORazepam 1 MG TAB PO PRN (20:12)
--- NOTE | 2018-10-19 20:13 | P.HPIM ---
History of Present Illness H&P Date: 10/19/18 Chief Complaint: Chest pain with palpitations This is a 58-year-old male patient of Dr Mike Nguyen with history of hypertension and hypertensive cardio vascular disease with left ventricular hypertrophy, coronary artery disease status post stenting of the left circumflex in February 2018 , chronic diastolic heart failure, end-stage renal disease on hemodialysis 3 times weekly, hyperlipidemia,uncontrolled diabetes mellitus type II. Patient had recent angioplasty and stenting of the first obtuse marginal branch of the circumflex on March [address] Bowie. Patient was also found to have a chronically totally occluded RCA fills with collaterals from the left system, intermediate disease in the LAD. He has also had recent angioplasty of the fistula to the left arm done by Dr. Santizo at [facility], [place]. Patient had recent hospitalization on August 05 for symptoms of chest discomfort, he was seen in consultation by Dr. Hall and recommended to be discharged home to follow-up in the office post discharge for outpatient stress testing. he had multiple visits to the ER since July 2018for atrial fibrillation with RVR post hemodialysis He was recently admitted to the hospital for observation secondary to A. fib with RVR after his hemodialysis, patient has recent had stress with that a family member, and was discharged to home yesterday. He was seen in consultation by Dr. Wills for which his amiodarone was titrated up to 200 mg twice a day, recently started on Eliquis 2.5 mg twice a day as in the past he had problems with epistaxis with Xarelo and bleeding off the gum related to the loss of the tooth.. He went to his routine hemodialysis schedule on Saturdays. During dialysis, his heart rate increased to 140s, I he complained off chest pressure left-sided, without adjacent to the arm and jaw, no shortness of breath, no abdominal pain, he completed only half of his hemodialysis, prior to arrival in the ED, he does not have lightheadedness, he was sent in from HD to the ER for evaluation n the emergency room, heart rate was 58 EKG, troponins are 0.03 EKG shows acute changes however to the claudication is noted, chest x-ray within normal limits, Echocardiogram performed 08/09/2018 EF 55-60%, moderate concentric LVH, mild MR, no pulmonary hypertension, no pericardial effusion cardiac Cath 08/09/2018, 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 which is a known finding from before, RCA fills with collaterals from the left coronary system, patent stent in the left circumflex ordinary activity, the LAD has intermediate disease involving LAD in its ostium, 60% proximal and midportion maximal treatment was recommended however there is also a recommendation that probably as an outpatient myocardial perfusion imaging stress test for ischemia in the LAD territory, and this shows ischemic changes in the LAD, [place] LAD possibly could be stented Review of Systems Constitutional: Reports as per HPI, Denies anorexia, Denies chills, Denies chronic headaches, Denies chronic pain, Denies daytime sleepiness, Denies fatigue, Denies fever, Denies lethargy, Denies malaise, Denies night sweats, Denies poor appetite, Denies sweats, Denies weakness, Denies weight gain, Denies weight loss Ears, nose, mouth and throat: Reports as per HPI Cardiovascular: Reports as per HPI, Reports chest pain, Reports palpitations, Reports rapid heart beat Respiratory: Reports as per HPI, Denies congestion, Denies cough, Denies cough with sputum, Denies dyspnea, Denies excessive sputum, Denies hemoptysis, Denies home oxygen, Denies pain, Denies pain on inspiration, Denies pleurisy, Denies respiratory infections, Denies sleep apnea, Denies snoring, Denies wheezing Gastrointestinal: Reports as per HPI Genitourinary: Reports as per HPI, Denies decreased libido, Denies difficulties fathering child, Denies discharge, Denies dysuria, Denies erectile dysfunction, Denies flank pain, Denies genital pain, Denies genital sores, Denies hematuria, Denies impotence, Denies incontinence, Denies kidney stones, Denies nocturia, Denies polyuria, Denies testicular lump, Denies testicular pain, Denies urinary frequency, Denies urinary hesitancy, Denies urinary retention Musculoskeletal: Reports as per HPI Integumentary: Reports as per HPI Neurological: Reports as per HPI Psychiatric: Reports as per HPI Endocrine: Reports as per HPI Hematologic/Lymphatic: Reports as per HPI Allergic/Immunologic: Reports as per HPI Past Medical History Past Medical History: Atrial Fibrillation, Coronary Artery Disease (CAD), Heart Failure, Diabetes Mellitus, Dialysis, Eye Disorder, GERD/Reflux, Hearing Disorder / Deafness, Hyperlipidemia, Hypertension, Myocardial Infarction ([place]), Renal Disease, Syncope Additional Past Medical History / Comment(s): IDDM type II, neuropathy bilateral hands/feet, ESRD with hemodialysis on // with last time being 10/14/18, chronic anemia, LVH, Afib with RVR, MIs, chronic CHF, R eye blindness, L eye legally blind, RLS, pt unsure if he has gout, vertigo at times, balance issues at times, stomach ulcer at age 17yrs, sinus problems, very [place] R ear. Last Myocardial Infarction Date:: 08/09/18 History of Any Multi-Drug Resistant Organisms: None Reported Past Surgical History: Heart Catheterization, Heart Catheterization With Stent Additional Past Surgical History / Comment(s): TTT, PD catheter placement/since removed, 2016 L arm fistula, fistula gram with balloon for stenosis, L eye vitrectomy, thyroid needle aspiration-negative, L leg cyst, colonoscopy with benign polypectomy. Past Anesthesia/Blood Transfusion Reactions: Postoperative Nausea & Vomiting (PONV) Date of Last Stent Placement:: 03-03-18 Past Psychological History: Anxiety, Depression Additional Psychological History / Comment(s): Pt resides with his spouse. There has been increased stress r/t recent of pt's mother in law and alot of family around for . Pt states he has depression but denies suicidal thoughts/plans. He states he takes ativan for his anxiety if needed and that actually helps reduce some of his depression. Smoking Status: Former smoker Past Alcohol Use History: None Reported Additional Past Alcohol Use History / Comment(s): STARTED SMOKING AT AGE 12 WORKED UP TO ALMOST A PPD THEN QUIT 23 YEARS AGO Past Drug Use History: None Reported - Past Family History Father Family Medical History: Cancer, Hyperlipidemia Additional Family Medical History / Comment(s): ? BRAIN CANCER Mother Family Medical History: Diabetes Mellitus, Osteoarthritis (OA) Additional Family Medical History / Comment(s): DJD. MOM IS STILL ALIVE AT AGE 80 Sister(s) Family Medical History: Diabetes Mellitus Brother(s) Family Medical History: Diabetes Mellitus Additional Family Medical History / Comment(s): Patient has 4 kids no major medical problems. Medications and Allergies Home Medications Medication Instructions Recorded Confirmed Type Clopidogrel [Plavix] 75 mg PO DAILY #30 tab 03/05/18 10/19/18 Rx Nitroglycerin Sl Tabs [Nitrostat] 0.4 mg SUBLINGUAL Q5M PRN #25 tab 03/05/18 10/19/18 Rx Insulin Glargine,Hum.rec.anlog 20 unit SQ BID 03/24/18 10/19/18 History [Basaglar Kwikpen U-100] Allopurinol [Zyloprim] 150 mg PO DAILY 08/05/18 10/19/18 History Calcium Acetate [PhosLo] 1,334 mg PO TID 08/05/18 10/19/18 History Furosemide [Lasix] 80 mg PO DAILY 08/05/18 10/19/18 History Gabapentin [Neurontin] 300 mg PO HS 08/05/18 10/19/18 History Insulin Aspart [NovoLOG Flexpen] See Protocol SQ ACHS 08/05/18 10/19/18 History LORazepam [Ativan] 2 mg PO HS PRN 08/05/18 10/19/18 History Atorvastatin [Lipitor] 80 mg PO DAILY #30 tab 08/11/18 10/19/18 Rx Metoprolol Tartrate [Lopressor] 12.5 mg PO BID #60 tab 08/11/18 10/19/18 Rx Pantoprazole [Protonix] 40 mg PO [id number] #30 tablet. 08/11/18 10/19/18 Rx Amiodarone [Cordarone] 200 mg PO BID #60 tab 10/18/18 10/19/18 Rx Apixaban [Eliquis] 2.5 mg PO BID #60 tablet 10/18/18 10/19/18 Rx Allergies Allergy/AdvReac Type Severity Reaction Status Date / Time codeine AdvReac Hallucinati Verified 10/19/18 15:53 ons morphine AdvReac Confusion Verified 10/19/18 15:53 All antibiotics except Keflex Allergy Unknown Uncoded 09/25/18 16:37 Childhood Physical Exam Vitals: Vital Signs Temp Pulse Pulse Resp BP BP Pulse Ox 10/19/18 19:45 98 10/19/18 18:10 97.5 F L 50 L 17 141/74 93 L 10/19/18 14:38 98 F 58 L 17 152/73 97 Intake and Output 10/19/18 10/19/18 10/19/18 06:59 14:59 22:59 Other: Weight 103 kg - Constitutional General appearance: cooperative, no acute distress - EENT Eyes: anicteric sclerae, EOMI, PERRLA, dentition normal, normal appearance ENT: normal oropharynx - Neck Neck: normal ROM - Respiratory Respiratory: bilateral: CTA, negative: diminished, dullness, rales, prolonged expiration, prolonged inspiration - Cardiovascular Rhythm: regular Heart sounds: normal: S1, S2 Abnormal Heart Sounds: no systolic murmur, no diastolic murmur, no rub, no S3 Gallop, no S4 Gallop, no click, no other - Gastrointestinal General gastrointestinal: normal bowel sounds, soft - Integumentary Integumentary: decreased turgor, normal, normal turgor - Neurologic Neurologic: CNII-XII intact - Musculoskeletal Musculoskeletal: gait normal, strength equal bilaterally - Psychiatric Psychiatric: A&O x's 3, appropriate affect, intact judgment & insight Results CBC & Chem 7: 10/19/18 15:10 10/19/18 15:10 Labs: Abnormal Lab Results - Last 24 Hours (Table) 10/19/18 10/19/18 10/19/18 Range/Units 15:10 15:10 15:10 RBC 3.53 L (4.30-5.90) m/uL Hgb 10.8 L (13.0-17.5) gm/dL Hct 32.6 L (39.0-53.0) % RDW 15.7 H (11.5-15.5) % APTT 31.7 H (22.0-30.0) sec Chloride 96 L (98-107) mmol/L BUN 57 H (9-20) mg/dL Creatinine 4.43 H (0.66-1.25) mg/dL Glucose 207 H (74-99) mg/dL Alkaline Phosphatase 141 H (38-126) U/L Thrombosis Risk Factor Assmnt - DVT/VTE Prophylaxis DVT/VTE Prophylaxis: Pharmacologic Prophylaxis ordered - Choose All That Apply Any of the Below Risk Factors Present?: Yes Each Factor Represents 1 point: Age 41-60 years, Obesity (BMI >25), Swollen legs (current) Other congenital or acquired thrombophilia - If yes, enter type in comment: No Thrombosis Risk Factor Assessment Total Risk Factor Score: 3 Thrombosis Risk Factor Assessment Level: Moderate Risk Assessment and Plan Plan: 1. Angina related to rapid heart rate presenting with Atrial fibrillation with rapid ventricular response, paroxysmal atrial fibrillation. continue metoprolol 12.5 mg by mouth twice a day. Amiodarone 200 mg twice a day .eliquis 2.5 mg twice a day, patient might need an event monitor. Recently had a cardiac cath July 2018, results with the above, there is ostial LAD disease 60%, for which medical management was recommended, patient will be sent given sublingual when necessary, cardiology to see, 2. Uncontrolled type 2 diabetes on Levemir 30 with the sliding scale at home. No change Levemir to 20 mgsubcu twice a daywith sliding scale. Patient was supposed to see Dr. miller as outpatient but is noncompliant stopped seeing him 3. History of coronary artery disease with previous left heart catheterization angioplasty and stenting of the first obtuse marginal branch of the circumflex on March [address] Bowie. Patient was also found to have a chronically totally occluded RCA fills with collaterals from the left system, intermediate disease in the LAD Continue aspirin aspirin 325 81 mg orally once every day, Plavix 75 mg orally once every day, Lopressor 12.5 mg orally twice every day, Lipitor 80 mg once every day. Now on lelqisuis 0.5 mg twice a day 3. Chronic diastolic heart failure. Continue Lasix 80 mg daily. 4.Anemia of chronic disease likely secondary to end-stage renal disease hemoglobin stable at 10.2 5. End-stage renal disease on hemodialysis 3 times weekly. Consult with nephrology. 6. Diabetic polyneuropathy. Continue gabapentin 300 mg at bedtime. 7. Hypertension and hypertensive cardio vascular disease with left ventricular hypertrophy. Continue Lopressor. 6. History of restless leg syndrome. Stable at this time. 7. History of gout. Continue allopurinol 150 mg orally once every day. 8. DVT prophylaxis. xarelto 9. GI prophylaxis. Continue with Protonix 40 mg orally once every day. 10. Patient is full code.
[2018-10-19 20:34] LABS: Glucose,Whole Blood 211 mg/dL (75-99)
[2018-10-19] MEDS: GABAPENTIN 300 MG CAP PO SCH (21:06)
[2018-10-19] MEDS: INSULIN DETEMIR (LEVEMIR) 100 UNIT/ML SYR SQ SCH (21:06)
[2018-10-19] MEDS: AMIODARONE 200 MG TAB PO SCH (21:06)
[2018-10-19] MEDS: APIXABAN 2.5 MG TABLET PO SCH (21:06)
[2018-10-19] MEDS: METOPROLOL TARTRATE 12.5 MG TAB PO SCH (22:09)
[2018-10-20 03:59] LABS: Cholesterol 106 mg/dL (<200); HDL Cholesterol 35 mg/dL (40-60); LDL Cholesterol,Calculated 41 mg/dL (0-99); Triglycerides 150 mg/dL (<150)
[2018-10-20 06:44] LABS: Glucose,Whole Blood 163 mg/dL (75-99)
[2018-10-20] MEDS: CALCIUM ACETATE 667 MG CAP PO SCH ×3 (09:29→16:15)
[2018-10-20] MEDS: ASPIRIN 325 MG TAB PO SCH (10:37)
[2018-10-20] MEDS: CLOPIDOGREL 75 MG TAB PO SCH (10:37)
[2018-10-20] MEDS: PANTOPRAZOLE 40 MG TABLET PO SCH (10:37)
[2018-10-20] MEDS: AMIODARONE 200 MG TAB PO SCH ×2 (10:37→20:43)
[2018-10-20] MEDS: METOPROLOL TARTRATE 12.5 MG TAB PO SCH ×2 (10:37→20:43)
[2018-10-20] MEDS: APIXABAN 2.5 MG TABLET PO SCH (10:38)
[2018-10-20] MEDS: FUROSEMIDE 80 MG TAB PO SCH (10:38)
[2018-10-20] MEDS: ATORVASTATIN 80 MG TAB PO SCH (10:38)
[2018-10-20] MEDS: ALLOPURINOL 300 MG TAB PO SCH (10:38)
[2018-10-20] MEDS: INSULIN DETEMIR (LEVEMIR) 100 UNIT/ML SYR SQ SCH ×2 (10:38→20:43)
[2018-10-20 11:56] LABS: Glucose,Whole Blood 142 mg/dL (75-99)
--- NOTE | 2018-10-20 12:34 | P.CRDCN ---
History of Present Illness History of present illness: This is a pleasant 58-year-old male past medical history significant for paroxysmal atrial fibrillation on long-term anticoagulation, end-stage renal disease on hemodialysis, coronary artery disease, myocardial infarction, hypertension, dyslipidemia. He follows in the office with Dr. Bowie. We have been asked to see him in consultation secondary to palpitations and chest discom fort. He was discharged from the hospital 2 days ago after an episode of atrial fibrillation with rapid ventricular response. Prior to discharge she converted to sinus mechanism. He was at dialysis yesterday undergoing treatment and he developed palpitations. He states his heart rate was beating extremely fast and was up near 140. The prepress technician been told him that his heart rate dropped to 30. Likely related to a postconversion pause. He then developed a tightness across the entire chest. He states he continues to feel mild chest tightness. His chest pain is not worse with exertion, cough or movement of his torso. The pain is not reproducible on palpation. He denies associated shortness of breath, dizziness, nausea, vomiting or diaphoresis. He has had no further symptoms of palpitations since arriving at the hospital. Initial EKG reveals sinus mechanism with PACs and PVCs. Telemetry tracings reviewed and reveal persistent sinus mechanism. Current cardiac medications include amiodarone 200 mg twice a day, Eliquis 2.5 mg twice a day, atorvastatin 80 mg daily, Plavix 75 mg daily, Lasix 80 mg daily and Lopressor 12.5 mg twice a day. Laboratory data reviewed, cardiac enzymes negative 3, LDL 41, WBC 8.0, hemoglobin 10.8, platelets 265, sodium 137, potassium 3.9, creatinine 4.43 with a GFR 14, magnesium 2.2. Most recent cardiac catheterization performed in July 2018 in the setting of a non-ST elevated myocardial infarction revealed left circumflex and LAD have different origin from the aorta, the left main does not exist, the proximal circumflex is angiographically normal and gives rise to the first OM which is stented and that stent is patent, the mid circumflex is normal and distally bifurcates into the PDA and PLV both angiographically normal. The osti al LAD has a lesion approximately 50-60%, proximal LAD has another tubular lesion in the range of 60%, LAD in the midportion has another lesion in the range of 60%, distally the LAD has only mild disease. RCA is chronically occluded with collaterals from left coronary system. At that time maximal medical therapy was recommended. Dr. Bowie recommended he undergo outpatient stress testing to assess for any reversibility and would continue to manage his care medically months he developed chest discomfort. That stress test was performed in the office and the end of August revealing abnormal perfusion with reversibility at the apex. Most recent echocardiogram obtained July 2018 reveals preserved LV systolic function with ejection fraction 55-60%. At the time of my exam: CONSTITUTIONAL: Denies fever. Denies chills. EYES: Denies blurred vision. Denies vision changes. Denies eye pain. EARS, NOSE, MOUTH & THROAT: Denies headache. Denies sore throat. Denies ear pain. CARDIOVASCULAR: Denies chest pain. Denies shortness of breath. Denies orthopnea. Denies PND. Denies palpitations. RESPIRATORY: Denies cough. GASTROINTESTINAL: Denies abdominal pain. Denies diarrhea. Denies constipation. Denies nausea. Denies vomiting. MUSCULOSKELETAL: Denies myalgias. INTEGUMENTARY: Denies pruitis. Denies rash. NEUROLOGIC: Denies numbness. Denies tingling. Denies weakness. PSYCHIATRIC: Denies anxiety. Denies depression. ENDOCRINE: Denies fatigue. Denies weight change. Denies polydipsia. Denies polyurina. GENITOURINARY: Denies burning, hematuria or urgency with micturation. HEMATOLOGIC: Denies history of anemia. Denies bleeding. Blood pressure 162/65 heart rate 54 afebrile maintaining oxygen saturation on room air GENERAL: This is a 58-year-old male in no apparent distress at the time of my examination. HEENT: Head is atraumatic, normocephalic. Pupils are equal, round. Sclerae anicteric. Conjunctivae are clear. Mucous membranes of the mouth are moist. Neck is supple. There is no jugular venous distention. No carotid bruit is heard. LUNGS: Clear to auscultation no wheezes, rales or rhonchi. No chest wall tenderness is noted on palpation or with deep breathing. HEART: Regular rate and rhythm without murmurs, rubs or gallops. S1 and S2 heard. ABDOMEN: Soft, nontender. Bowel sounds are heard. No organomegaly noted. EXTREMITIES: No evidence of peripheral edema and no calf tenderness noted. VASCULAR: Radial and dorsalis pedis pulses palpated, no evidence of clubbing. NEUROLOGIC: Patient is awake, alert and oriented x3. ASSESSMENT Unstable angina in a patient with known diffuse coronary artery disease Paroxysmal atrial fibrillation on long-term anticoagulation. Currently maintaining sinus mechanism. End-stage renal disease on hemodialysis History of coronary artery disease Hypertension Dyslipidemia History of myocardial infarction PLAN Recommend proceeding with cardiac catheterization and likely angioplasty of the LAD. This has been discussed in great detail with his primary sales project manager and the procedure is boarded for tomorrow. I have discussed the risks, benefits and alternative therapies for the above-mentioned procedure and for both sedation/analgesia as well as necessary blood product administration, if indicated, as they pertain to this patient. The patient has indicated understanding and acceptance of the risks and procedures discussed. Questions have been answered appropriately and he is agreeable to move forward with the above stated procedure. We asked nephrology to see the patient so he can undergo hemodialysis after his cath tomorrow. Continue amiodarone, atorvastatin, Plavix, Lasix and metoprolol as previously ordered. Hold Eliquis. Further recommendations to follow based upon clinical course. Thank you kindly for this consultation. Nurse Practitioner note has been reviewed, I agree with a documented findings and plan of care. Patient was seen and examined. Past Medical History Past Medical History: Atrial Fibrillation, Coronary Artery Disease (CAD), Heart Failure, Diabetes Mellitus, Dialysis, Eye Disorder, GERD/Reflux, Hearing Disorder / Deafness, Hyperlipidemia, Hypertension, Myocardial Infarction ([place]), Renal Disease, Syncope Additional Past Medical History / Comment(s): IDDM type II, neuropathy bilateral hands/feet, ESRD with hemodialysis on // with last time being 10/14/18, chronic anemia, LVH, Afib with RVR, MIs, chronic CHF, R eye blindness, L eye legally blind, RLS, pt unsure if he has gout, vertigo at times, balance issues at times, stomach ulcer at age 17yrs, sinus problems, very [place] R ear. Last Myocardial Infarction Date:: 08/09/18 History of Any Multi-Drug Resistant Organisms: None Reported Past Surgical History: Heart Catheterization, Heart Catheterization With Stent Additional Past Surgical History / Comment(s): TTT, PD catheter placement/since removed, 2016 L arm fistula, fistula gram with balloon for stenosis, L eye vitrectomy, thyroid needle aspiration-negative, L leg cyst, colonoscopy with benign polypectomy. Past Anesthesia/Blood Transfusion Reactions: Postoperative Nausea & Vomiting (PONV) Date of Last Stent Placement:: 03-03-18 Past Psychological History: Anxiety, Depression Additional Psychological History / Comment(s): Pt resides with his spouse. There has been increased stress r/t recent of pt's mother in law and alot of family around for . Pt states he has depression but denies suicidal thoughts/plans. He states he takes ativan for his anxiety if needed and that actually helps reduce some of his depression. Smoking Status: Former smoker Past Alcohol Use History: None Reported Additional Past Alcohol Use History / Comment(s): STARTED SMOKING AT AGE 12 WORKED UP TO ALMOST A PPD THEN QUIT 23 YEARS AGO Past Drug Use History: None Reported - Past Family History Father Family Medical History: Cancer, Hyperlipidemia Additional Family Medical History / Comment(s): ? BRAIN CANCER Mother Family Medical History: Diabetes Mellitus, Osteoarthritis (OA) Additional Family Medical History / Comment(s): DJD. MOM IS STILL ALIVE AT AGE 80 Sister(s) Family Medical History: Diabetes Mellitus Brother(s) Family Medical History: Diabetes Mellitus Additional Family Medical History / Comment(s): Patient has 4 kids no major medical problems. Medications and Allergies Home Medications Medication Instructions Recorded Confirmed Type Clopidogrel [Plavix] 75 mg PO DAILY #30 tab 03/05/18 10/19/18 Rx Nitroglycerin Sl Tabs [Nitrostat] 0.4 mg SUBLINGUAL Q5M PRN #25 tab 03/05/18 10/19/18 Rx Insulin Glargine,Hum.rec.anlog 20 unit SQ BID 03/24/18 10/19/18 History [Basaglar Kwikpen U-100] Allopurinol [Zyloprim] 150 mg PO DAILY 08/05/18 10/19/18 History Calcium Acetate [PhosLo] 1,334 mg PO TID 08/05/18 10/19/18 History Furosemide [Lasix] 80 mg PO DAILY 08/05/18 10/19/18 History Gabapentin [Neurontin] 300 mg PO HS 08/05/18 10/19/18 History Insulin Aspart [NovoLOG Flexpen] See Protocol SQ ACHS 08/05/18 10/19/18 History LORazepam [Ativan] 2 mg PO HS PRN 08/05/18 10/19/18 History Atorvastatin [Lipitor] 80 mg PO DAILY #30 tab 08/11/18 10/19/18 Rx Metoprolol Tartrate [Lopressor] 12.5 mg PO BID #60 tab 08/11/18 10/19/18 Rx Pantoprazole [Protonix] 40 mg PO AC-BRKFST #30 tablet. 08/11/18 10/19/18 Rx Amiodarone [Cordarone] 200 mg PO BID #60 tab 10/18/18 10/19/18 Rx Apixaban [Eliquis] 2.5 mg PO BID #60 tablet 10/18/18 10/19/18 Rx Allergies Allergy/AdvReac Type Severity Reaction Status Date / Time codeine AdvReac Hallucinati Verified 10/19/18 15:53 ons morphine AdvReac Confusion Verified 10/19/18 15:53 All antibiotics except Keflex Allergy Unknown Uncoded 09/25/18 16:37 Childhood Physical Exam Vitals: Vital Signs Temp Pulse Pulse Resp BP BP Pulse Ox 10/20/18 08:00 54 L 18 10/20/18 07:20 98.2 F 54 L 18 153/75 98 10/20/18 04:00 97.7 F 50 L 18 150/70 97 10/19/18 23:54 97.9 F 55 L 18 161/73 100 10/19/18 23:41 54 L 18 10/19/18 20:00 97.7 F 49 L 18 122/69 98 10/19/18 19:45 98 10/19/18 18:10 97.5 F L 50 L 17 141/74 93 L 10/19/18 14:38 98 F 58 L 17 152/73 97 Intake and Output 10/19/18 10/20/18 10/20/18 22:59 06:59 14:59 Other: Voiding Method Toilet # Voids 1 Results 10/19/18 15:10 10/19/18 15:10 Cardiac Enzymes 10/19/18 10/19/18 10/19/18 Range/Units 15:10 15:10 21:33 AST 20 (17-59) U/L Troponin I 0.032 0.030 (0.000-0.034) ng/mL 10/20/18 Range/Units 03:23 AST (17-59) U/L Troponin I 0.029 (0.000-0.034) ng/mL Coagulation 10/19/18 Range/Units 15:10 PT 10.7 (9.0-12.0) sec APTT 31.7 H (22.0-30.0) sec Lipids 10/20/18 Range/Units 03:23 Triglycerides 150 H (<150) mg/dL Cholesterol 106 (<200) mg/dL HDL Cholesterol 35 L (40-60) mg/dL CBC 10/19/18 Range/Units 15:10 WBC 8.0 (3.8-10.6) k/uL RBC 3.53 L (4.30-5.90) m/uL Hgb 10.8 L (13.0-17.5) gm/dL Hct 32.6 L (39.0-53.0) % Plt Count 265 (150-450) k/uL Comprehensive Metabolic Panel 10/19/18 Range/Units 15:10 Sodium 137 (137-145) mmol/L Potassium 3.9 (3.5-5.1) mmol/L Chloride 96 L (98-107) mmol/L Carbon Dioxide 30 (22-30) mmol/L BUN 57 H (9-20) mg/dL Creatinine 4.43 H (0.66-1.25) mg/dL Glucose 207 H (74-99) mg/dL Calcium 9.2 (8.4-10.2) mg/dL AST 20 (17-59) U/L ALT 35 (21-72) U/L Alkaline Phosphatase 141 H (38-126) U/L Total Protein 6.8 (6.3-8.2) g/dL Albumin 4.0 (3.5-5.0) g/dL Current Medications Generic Name Dose Route Start Last Admin Trade Name Freq PRN Reason Stop Dose Admin Allopurinol 150 mg 10/20/18 09:00 Zyloprim PO DAILY [facility] Amiodarone HCl 200 mg 10/19/18 21:00 10/19/18 21:06 Cordarone PO 200 mg BID JLUIS Administration Apixaban 2.5 mg 10/19/18 21:00 10/19/18 21:06 Eliquis PO 2.5 mg BID JLUIS Administration Aspirin 325 mg 10/20/18 09:00 Aspirin PO DAILY [facility] Atorvastatin Calcium 80 mg 10/20/18 09:00 Lipitor PO DAILY [facility] Calcium Acetate 1,334 mg 10/20/18 07:30 Phoslo PO TID-W/MEALS [facility] Clopidogrel Bisulfate 75 mg 10/20/18 09:00 Plavix PO DAILY [facility] Furosemide 80 mg 10/20/18 09:00 Lasix PO DAILY [facility] Gabapentin 300 mg 10/19/18 21:00 10/19/18 21:06 Neurontin PO 300 mg HS JLUIS Administration Insulin Detemir 20 unit 10/19/18 21:00 10/19/18 21:06 Levemir SQ 20 unit BID [facility] Administration Lorazepam 2 mg 10/19/18 20:12 Ativan PO HS PRN anxiety Metoprolol Tartrate 12.5 mg 10/19/18 21:00 10/19/18 22:09 Lopressor PO Not Given BID [facility] Nitroglycerin 0.4 mg 10/19/18 16:00 Nitrostat SUBLINGUAL Q5M PRN Chest Pain Nitroglycerin 0.4 mg 10/19/18 20:12 Nitrostat SUBLINGUAL Q5M PRN Chest Pain Pantoprazole Sodium 40 mg 10/20/18 07:30 Protonix PO AC-BRKFST [facility] Intake and Output 10/19/18 10/20/18 10/20/18 22:59 06:59 14:59 Other: Voiding Method Toilet # Voids 1 10/19/18 15:10 10/19/18 15:10
--- NOTE | 2018-10-20 15:11 | P.PN ---
Subjective Progress Note Date: 10/20/18 This is a 58-year-old male patient of Dr Mike Nguyen with history of hypertension and hypertensive cardio vascular disease with left ventricular hypertrophy, coronary artery disease status post stenting of the left circumflex in February 2018 , chronic diastolic heart failure, end-stage renal disease on hemodialysis 3 times weekly, hyperlipidemia,uncontrolled diabetes mellitus type II. Patient had recent angioplasty and stenting of the first obtuse marginal branch of the circumflex on March [address] Bowie. Patient was also found to have a chronically totally occluded RCA fills with collaterals from the left system, intermediate disease in the LAD. He has also had recent angioplasty of the fistula to the left arm done by Dr. Santizo at [facility]. Patient had recent hospitalization on August 05 for symptoms of chest discomfort, he was seen in consultation by Dr. Hall and recommended to be discharged home to follow-up in the office post discharge for outpatient stress testing. he had multiple visits to the ER since July 2018for atrial fibrillation with RVR post hemodialysis He was recently admitted to the hospital for observation secondary to A. fib with RVR after his hemodialysis, patient has recent had stress with that a family member, and was discharged to home yesterday. He was seen in consultation by Dr. Wills for which his amiodarone was titrated up to 200 mg twice a day, recently started on Eliquis 2.5 mg twice a day as in the past he had problems with epistaxis with Xarelo and bleeding off the gum related to the loss of the tooth.. He went to his routine hemodialysis schedule on Saturdays. During dialysis, his heart rate increased to 140s, I he complained off chest pressure left-sided, without adjacent to the arm and jaw, no shortness of breath, no abdominal pain, he completed only half of his hemodialysis, prior to arrival in the ED, he does not have lightheadedness, he was sent in from HD to the ER for evaluation n the emergency room, heart rate was 58 EKG, troponins are 0.03 EKG shows acute changes however to the claudication is noted, chest x-ray within normal limits, Echocardiogram performed 08/09/2018 EF 55-60%, moderate concentric LVH, mild MR, no pulmonary hypertension, no pericardial effusion cardiac Cath 08/09/2018, 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 which is a known finding from before, RCA fills with collaterals from the left coronary system, patent stent in the left circumflex ordinary activity, the LAD has intermediate disease involving LAD in its ostium, 60% proximal and midportion maximal treatment was recommended however there is also a recommendation that probably as an outpatient myocardial perfusion imaging stress test for ischemia in the LAD territory, and this shows ischemic changes in the LAD, [place] LAD possibly could be stented 10/20: Patient has been seen by cardiology with plan for heart catheterization likely angioplasty of the LAD scheduled for tomorrow. Nephrology will be seeing the patient regarding hemodialysis prior to heart catheterization. His home medications have been resumed except for eliquis is on hold. Patient states he is feeling a bit weak. His chest pain is gone. He states he has some cramping across his upper abdomen but no pain like that he takes. Yesterday. He has been walking the hallway without experiencing pain. Objective - Vital Signs Vital signs: Vital Signs Temp 97.5 F L 10/20/18 11:35 Pulse 54 L 10/20/18 12:00 Resp 18 10/20/18 12:00 BP 162/65 10/20/18 11:35 Pulse Ox 98 10/20/18 11:35 Intake & Output 10/19/18 10/20/18 10/20/18 18:59 06:59 18:59 Weight 103 kg Other: Voiding Method Toilet # Voids 1 - Exam Review Of Systems: Constitutional: No fever, no chills, no night sweats. No weight change. No weakness, fatigue or lethargy. No daytime sleepiness. EENT: No headache. No blurred vision or double vision, no loss of vision. No loss of Hearing, no ringing in the ears, no dizziness. No nasal drainage or congestion. No epistaxis. No sore throat. Lungs: No shortness of breath, cough, no sputum production. No wheezing. Cardiovascular: No chest pain, no lower extremity edema. No palpitations. No paroxysmal nocturnal dyspnea. No orthopnea. No lightheadedness or dizziness. No syncopal episodes. Abdominal: Reports abdominal cramping. No nausea, vomiting. No diarrhea. No constipation. No bloody or tarry stools.. No loss of appetite. Genitourinary: No dysuria, increased frequency, urgency. No urinary retention. Musculoskeletal: No myalgias. No muscle weakness, no gait dysfunction, no frequent falls. No back pain. No neck pain. Integumentary: No wounds, no lesions. No rash or pruritus. No unusual bruising. No change in hair or nails. Neurologic: No aphasia. No facial droop. No change in mentation. No head injury. No headache. No paralysis. No paresthesia. Psychiatric: No depression. No anxiety. No mood swings. Endocrine: No abnormal blood sugars. No weight change. No excessive sweating or thirst. No cold intolerance. - Constitutional General appearance: cooperative, no acute distress, resting in bed - EENT Eyes: anicteric sclerae, EOMI, PERRLA, dentition normal, normal appearance ENT: normal oropharynx - Neck Neck: normal ROM - Respiratory Respiratory: bilateral: CTA, negative: diminished, dullness, rales, prolonged expiration, prolonged inspiration - Cardiovascular Rhythm: regular Heart sounds: normal: S1, S2 Abnormal Heart Sounds: no systolic murmur, no diastolic murmur, no rub, no S3 Gallop, no S4 Gallop, no click, no other - Gastrointestinal General gastrointestinal: normal bowel sounds, soft - Integumentary Integumentary: decreased turgor, normal, normal turgor - Neurologic Neurologic: CNII-XII intact - Musculoskeletal Musculoskeletal: gait normal, strength equal bilaterally - Psychiatric Psychiatric: A&O x's 3, appropriate affect, intact judgment & insight - Labs CBC & Chem 7: 10/19/18 15:10 10/19/18 15:10 Labs: Abnormal Lab Results - Last 24 Hours (Table) 10/19/18 10/19/18 10/19/18 Range/Units 15:10 15:10 15:10 RBC 3.53 L (4.30-5.90) m/uL Hgb 10.8 L (13.0-17.5) gm/dL Hct 32.6 L (39.0-53.0) % RDW 15.7 H (11.5-15.5) % APTT 31.7 H (22.0-30.0) sec Chloride 96 L (98-107) mmol/L BUN 57 H (9-20) mg/dL Creatinine 4.43 H (0.66-1.25) mg/dL Glucose 207 H (74-99) mg/dL POC Glucose (mg/dL) (75-99) mg/dL Alkaline Phosphatase 141 H (38-126) U/L Triglycerides (<150) mg/dL HDL Cholesterol (40-60) mg/dL 10/19/18 10/20/18 10/20/18 Range/Units 20:31 03:23 06:43 RBC (4.30-5.90) m/uL Hgb (13.0-17.5) gm/dL Hct (39.0-53.0) % RDW (11.5-15.5) % APTT (22.0-30.0) sec Chloride (98-107) mmol/L BUN (9-20) mg/dL Creatinine (0.66-1.25) mg/dL Glucose (74-99) mg/dL POC Glucose (mg/dL) 211 H 163 H (75-99) mg/dL Alkaline Phosphatase (38-126) U/L Triglycerides 150 H (<150) mg/dL HDL Cholesterol 35 L (40-60) mg/dL 10/20/18 Range/Units 11:55 RBC (4.30-5.90) m/uL Hgb (13.0-17.5) gm/dL Hct (39.0-53.0) % RDW (11.5-15.5) % APTT (22.0-30.0) sec Chloride (98-107) mmol/L BUN (9-20) mg/dL Creatinine (0.66-1.25) mg/dL Glucose (74-99) mg/dL POC Glucose (mg/dL) 142 H (75-99) mg/dL Alkaline Phosphatase (38-126) U/L Triglycerides (<150) mg/dL HDL Cholesterol (40-60) mg/dL Assessment and Plan Plan: 1. Angina related to rapid heart rate presenting with Atrial fibrillation with rapid ventricular response, paroxysmal atrial fibrillation. continue metoprolol 12.5 mg by mouth twice a day. Amiodarone 200 mg twice a day .eliquis 2.5 mg twice a day, patient might need an event monitor. Recently had a cardiac cath July 2018, results with the above, there is ostial LAD disease 60%, for which medical management was recommended, patient will be sent given sublingual when necessary, cardiology consult appreciated. Patient scheduled for heart catheterization. 2. Uncontrolled type 2 diabetes with hyperglycemia. Continue Levemir to 20 mgsubcu twice a day with sliding scale. Patient was supposed to see Dr. Torres as outpatient but is noncompliant and stopped seeing him. 3. History of coronary artery disease with previous left heart catheterization angioplasty and stenting of the first obtuse marginal branch of the circumflex on March [address] Bowie. Patient was also found to have a chronically totally occluded RCA fills with collaterals from the left system, intermediate disease in the LAD Continue aspirin aspirin 325 81 mg orally once every day, Plavix 75 mg orally once every day, Lopressor 12.5 mg orally twice every day, Lipitor 80 mg once every day. Now onlelqisuis 0.5 mg twice a day--on hold 4. Chronic diastolic heart failure. Continue Lasix 80 mg daily. 5. Anemia of chronic disease likely secondary to end-stage renal disease hemoglobin stable at 10.2 6. End-stage renal disease on hemodialysis 3 times weekly. Consult with nephrology. 7. Diabetic polyneuropathy. Continue gabapentin 300 mg at bedtime. 8. Hypertension and hypertensive cardio vascular disease with left ventricular hypertrophy. Continue Lopressor. 9. History of restless leg syndrome. Stable at this time. 10. History of gout. Continue allopurinol 150 mg orally once every day. 11. DVT prophylaxis. xarelto 12. GI prophylaxis. Continue with Protonix 40 mg orally once every day. 13. Patient is full code. Discharge plan: Home Impression and plan of care have been directed as dictated by the signing physician. Katelyn Wesley nurse practitioner acting as scribe for signing physician.
[2018-10-20] MEDS: LORazepam 0.5 MG TAB PO PRN (16:09)
[2018-10-20 16:33] LABS: Glucose,Whole Blood 152 mg/dL (75-99)
[2018-10-20 20:35] LABS: Glucose,Whole Blood 158 mg/dL (75-99)
[2018-10-20] MEDS: GABAPENTIN 300 MG CAP PO SCH (20:43)
[2018-10-21 06:43] LABS: Glucose,Whole Blood 99 mg/dL (75-99)
[2018-10-21] MEDS: ATORVASTATIN 80 MG TAB PO SCH (09:58)
[2018-10-21] MEDS: CLOPIDOGREL 75 MG TAB PO SCH (09:58)
[2018-10-21] MEDS: AMIODARONE 200 MG TAB PO SCH ×2 (09:58→22:55)
[2018-10-21] MEDS: ALLOPURINOL 300 MG TAB PO SCH (09:58)
[2018-10-21] MEDS: FUROSEMIDE 80 MG TAB PO SCH (09:58)
[2018-10-21] MEDS: ASPIRIN 325 MG TAB PO SCH (09:58)
[2018-10-21] MEDS: INSULIN DETEMIR (LEVEMIR) 100 UNIT/ML SYR SQ SCH ×2 (09:59→22:57)
[2018-10-21] MEDS: METOPROLOL TARTRATE 12.5 MG TAB PO SCH ×2 (09:59→21:04)
[2018-10-21] MEDS: PANTOPRAZOLE 40 MG TABLET PO SCH (10:04)
[2018-10-21] MEDS: CALCIUM ACETATE 667 MG CAP PO SCH ×3 (10:06→21:03)
[2018-10-21 11:42] LABS: Glucose,Whole Blood 105 mg/dL (75-99)
[2018-10-21] MEDS: LORazepam 0.5 MG TAB PO PRN (11:48)
--- NOTE | 2018-10-21 12:26 | CONS ---
CONSULTATION Patient is seen in consultation for end-stage renal disease. He was admitted to the hospital again with complaints of shortness of breath and palpitations. Patient went back into AFIB with RVR with dialysis and was admitted yesterday. He is scheduled for cardiac catheterization today following which patient will be dialyzed. No complaints of chest pains. No nausea, vomiting, fever, chills or diarrhea or abdominal pain. PAST MEDICAL HISTORY: End-stage renal disease, coronary artery disease, chronic AFIB with multiple admissions for AFIB with RVR, type 2 diabetes, hearing loss, hyperlipidemia, VT, neuropathy. Patient is legally blind in the left eye. PAST SURGICAL HISTORY: Cardiac catheterization, AV fistula, coronary stent placement, PD catheter placement and removal, colonoscopy, polypectomy. SOCIAL HISTORY: Negative for smoking currently. Patient is a former smoker. No history of drug abuse or alcohol abuse. MEDICATIONS: Prior to admission include Plavix, Nitrostat, Zyloprim, PhosLo, Lasix, Neurontin, Ativan, Lipitor, Lopressor, Protonix, Cordarone, Eliquis. ALLERGIES: Include CODEINE, MORPHINE, ANTIBIOTICS which cause hallucination and confusion. REVIEW OF SYSTEMS: As per HPI. Other systems negative. PHYSICAL EXAMINATION: Patient is comfortable, awake, alert, oriented x3, not in any acute distress. Blood pressure 156/75, heart rate 96 per minute. He is afebrile. Examination of the heart S1, S2. Examination of the lungs, bilateral breath sounds are heard. Abdomen is soft, nontender. Examination of the lower extremities shows no evidence of edema. COMMERCIAL LINES MANAGER exam grossly intact. LABS: Show hemoglobin 10.8, sodium 137, potassium 3.9. ASSESSMENT: 1. End-stage renal disease, on hemodialysis on Wednesday, Wednesday, Wednesday schedule. Patient will be dialyzed today. 2. Atrial fibrillation with an RVR, currently with controlled ventricular rate with multiple admissions for rapid ventricular response, particularly with dialysis. Patient will be proceeding to cardiac catheterization this morning to rule out underlying cardiac ischemia. 3. Hypertension. Blood pressure is controlled. 4. CKD mineral bone disorder. 5. Type 2 diabetes, maintained on insulin. 6. Gastroesophageal reflux disease maintained on proton pump inhibitors. PLAN: Continue with phosphate binders, hemodialysis today after cardiac catheterization. We will try for about 2 L as tolerated. Thank you for this consultation. Will continue to follow the patient with you during his hospitalization. MMODL / IJN: [id number] /
--- NOTE | 2018-10-21 14:20 | P.PN ---
Subjective Progress Note Date: 10/21/18 This is a 58-year-old male patient of Dr Mike Nguyen with history of hypertension and hypertensive cardio vascular disease with left ventricular hypertrophy, coronary artery disease status post stenting of the left circumflex in February 2018 , chronic diastolic heart failure, end-stage renal disease on hemodialysis 3 times weekly, hyperlipidemia,uncontrolled diabetes mellitus type II. Patient had recent angioplasty and stenting of the first obtuse marginal branch of the circumflex on March [address] Bowie. Patient was also found to have a chronically totally occluded RCA fills with collaterals from the left system, intermediate disease in the LAD. He has also had recent angioplasty of the fistula to the left arm done by Dr. Santizo at [facility]. Patient had recent hospitalization on August 05 for symptoms of chest discomfort, he was seen in consultation by Dr. Hall and recommended to be discharged home to follow-up in the office post discharge for outpatient stress testing. he had multiple visits to the ER since July 2018for atrial fibrillation with RVR post hemodialysis He was recently admitted to the hospital for observation secondary to A. fib with RVR after his hemodialysis, patient has recent had stress with that a family member, and was discharged to home yesterday. He was seen in consultation by Dr. Wills for which his amiodarone was titrated up to 200 mg twice a day, recently started on Eliquis 2.5 mg twice a day as in the past he had problems with epistaxis with Xarelo and bleeding off the gum related to the loss of the tooth.. He went to his routine hemodialysis schedule on Saturdays. During dialysis, his heart rate increased to 140s, I he complained off chest pressure left-sided, without adjacent to the arm and jaw, no shortness of breath, no abdominal pain, he completed only half of his hemodialysis, prior to arrival in the ED, he does not have lightheadedness, he was sent in from HD to the ER for evaluation n the emergency room, heart rate was 58 EKG, troponins are 0.03 EKG shows acute changes however to the claudication is noted, chest x-ray within normal limits, Echocardiogram performed 08/09/2018 EF 55-60%, moderate concentric LVH, mild MR, no pulmonary hypertension, no pericardial effusion cardiac Cath 08/09/2018, 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 which is a known finding from before, RCA fills with collaterals from the left coronary system, patent stent in the left circumflex ordinary activity, the LAD has intermediate disease involving LAD in its ostium, 60% proximal and midportion maximal treatment was recommended however there is also a recommendation that probably as an outpatient myocardial perfusion imaging stress test for ischemia in the LAD territory, and this shows ischemic changes in the LAD, [place] LAD possibly could be stented 10/20: Patient has been seen by cardiology with plan for heart catheterization likely angioplasty of the LAD scheduled for tomorrow. Nephrology will be seeing the patient regarding hemodialysis prior to heart catheterization. His home medications have been resumed except for eliquis is on hold. Patient states he is feeling a bit weak. His chest pain is gone. He states he has some cramping across his upper abdomen but no pain like that he takes. Yesterday. He has been walking the hallway without experiencing pain. 10/21: Patient is seen today on the observation unit. He has been afebrile, heart rate 55, blood pressure 167/73, pulse ox 90% on room air. Blood sugars running between 99 and 158. Patient is scheduled for heart catheterization this afternoon. After Patrick is planning for hemodialysis treatment after procedure. Anticipate probable discharge tomorrow. Patient remains chest pain-free. He states it is all gone. Objective - Vital Signs Vital signs: Vital Signs Temp 97.6 F 10/21/18 07:59 Pulse 55 L 10/21/18 07:59 Resp 18 10/21/18 07:59 BP 167/73 10/21/18 07:59 Pulse Ox 98 10/21/18 07:59 Intake & Output 10/20/18 10/21/18 10/21/18 18:59 06:59 18:59 Other: Voiding Method Toilet Toilet # Voids 2 1 - Exam Review Of Systems: Constitutional: No fever, no chills, no night sweats. No weight change. No weakness, fatigue or lethargy. No daytime sleepiness. EENT: No headache. No blurred vision or double vision, no loss of vision. No loss of Hearing, no ringing in the ears, no dizziness. No nasal drainage or congestion. No epistaxis. No sore throat. Lungs: No shortness of breath, cough, no sputum production. No wheezing. Cardiovascular: No chest pain, no lower extremity edema. No palpitations. No paroxysmal nocturnal dyspnea. No orthopnea. No lightheadedness or dizziness. No syncopal episodes. Abdominal: Reports abdominal cramping. No nausea, vomiting. No diarrhea. No constipation. No bloody or tarry stools.. No loss of appetite. Genitourinary: No dysuria, increased frequency, urgency. No urinary retention. Musculoskeletal: No myalgias. No muscle weakness, no gait dysfunction, no frequent falls. No back pain. No neck pain. Integumentary: No wounds, no lesions. No rash or pruritus. No unusual bruising. No change in hair or nails. Neurologic: No aphasia. No facial droop. No change in mentation. No head injury. No headache. No paralysis. No paresthesia. Endocrine: No abnormal blood sugars. No weight change. No excessive sweating or thirst. No cold intolerance. - Constitutional General appearance: cooperative, no acute distress - EENT Eyes: anicteric sclerae, EOMI, PERRLA, dentition normal, normal appearance ENT: normal oropharynx - Neck Neck: normal ROM - Respiratory Respiratory: bilateral: CTA, negative: diminished, dullness, rales, prolonged expiration, prolonged inspiration - Cardiovascular Rhythm: regular Heart sounds: normal: S1, S2 Abnormal Heart Sounds: no systolic murmur, no diastolic murmur, no rub, no S3 Gallop, no S4 Gallop, no click, no other - Gastrointestinal General gastrointestinal: normal bowel sounds, soft - Integumentary Integumentary: decreased turgor, normal, normal turgor - Neurologic Neurologic: CNII-XII intact - Musculoskeletal Musculoskeletal: gait normal, strength equal bilaterally - Psychiatric Psychiatric: A&O x's 3, appropriate affect, intact judgment & insight - Labs CBC & Chem 7: 10/19/18 15:10 10/19/18 15:10 Labs: Abnormal Lab Results - Last 24 Hours (Table) 10/20/18 10/20/18 10/20/18 Range/Units 11:55 16:32 20:32 POC Glucose (mg/dL) 142 H 152 H 158 H (75-99) mg/dL Assessment and Plan Plan: 1. Angina related to rapid heart rate presenting with Atrial fibrillation with rapid ventricular response, paroxysmal atrial fibrillation. continue metoprolol 12.5 mg by mouth twice a day. Amiodarone 200 mg twice a day .eliquis 2.5 mg twice a day, patient might need an event monitor. Recently had a cardiac cath July 2018, results with the above, there is ostial LAD disease 60%, for which medical management was recommended, patient will be sent given sublingual when necessary, cardiology consult appreciated. Patient scheduled for heart catheterization this afternoon. 2. Uncontrolled type 2 diabetes with hyperglycemia. Continue Levemir to 20 mgsubcu twice a day with sliding scale. Patient was supposed to see Dr. Torres as outpatient but is noncompliant and stopped seeing him. 3. History of coronary artery disease with previous left heart catheterization angioplasty and stenting of the first obtuse marginal branch of the circumflex on March [address] Bowie. Patient was also found to have a chronically totally occluded RCA fills with collaterals from the left system, intermediate disease in the LAD Continue aspirin aspirin 325 81 mg orally once every day, Plavix 75 mg orally once every day, Lopressor 12.5 mg orally twice every day, Lipitor 80 mg once every day. Now on eliquis 2.5 mg twice a day--on hold 4. Chronic diastolic heart failure. Continue Lasix 80 mg daily. 5. Anemia of chronic disease likely secondary to end-stage renal disease hemoglobin stable at 10.2 6. End-stage renal disease on hemodialysis 3 times weekly. Consult with nephrology. 7. Diabetic polyneuropathy. Continue gabapentin 300 mg at bedtime. 8. Hypertension and hypertensive cardio vascular disease with left ventricular hypertrophy. Continue Lopressor. 9. History of restless leg syndrome. Stable at this time. 10. History of gout. Continue allopurinol 150 mg orally once every day. 11. DVT prophylaxis. xarelto 12. GI prophylaxis. Continue with Protonix 40 mg orally once every day. 13. Patient is full code. Discharge plan: Home Impression and plan of care have been directed as dictated by the signing physician. Katelyn Wesley nurse practitioner acting as scribe for signing physician.
[2018-10-21 16:56] LABS: Glucose,Whole Blood 90 mg/dL (75-99)
[2018-10-21] MEDS ORDERED: LIDOCAINE 1% INJ 10MG/ML (20 ML MDV) ONE (17:22)
[2018-10-21] MEDS ORDERED: SODIUM CHLORIDE 0.9% 1,000 ML IV ONE (17:39)
[2018-10-21] MEDS ORDERED: MIDAZOLAM (PF) 2 MG/2 ML VIAL IV ONE (17:49)
[2018-10-21] MEDS ORDERED: LIDOCAINE 1% INJ 10MG/ML (20 ML MDV) SQ ONE (17:53)
[2018-10-21] MEDS ORDERED: HYDROmorphone 1 MG/ML 1 ML SYRINGE ONE (17:57)
[2018-10-21] MEDS ORDERED: HYDROmorphone 1 MG/ML 1 ML SYRINGE IVP ONE (17:58)
[2018-10-21] MEDS ORDERED: BIVALIRUDIN BOLUS 250 MG/50 ML IV ONE (18:11)
[2018-10-21] MEDS ORDERED: BIVALIRUDIN 250 MG in SODIUM CHLORIDE 0.9% 50 ML IV ONE (18:13)
[2018-10-21] MEDS: NITROGLYCERIN 1000MCG/10ML SYRINGE INTRACORON ONE ×2 (18:17→18:26)
[2018-10-21] MEDS ORDERED: IOPAMIDOL-370 100ML BTL INJ ONE ×2 (18:19→18:27)
[2018-10-21] MEDS ORDERED: CLOPIDOGREL 75 MG TAB ONE (18:29)
[2018-10-21] MEDS ORDERED: ATROPINE SULFATE 0.1 MG/ML 10ML SYRINGE IV PRN (18:36)
[2018-10-21] MEDS ORDERED: RX INFO: IV CONTRAST WAS GIVEN 1 EACH MISC MISCELLANE PRN (18:36)
[2018-10-21] MEDS ORDERED: ZOLPIDEM 5 MG TAB PO PRN (18:36)
[2018-10-21] MEDS ORDERED: MAG HYDROX/AL HYDROX/SIMETH 30 ML CUP PO PRN (18:36)
[2018-10-21] MEDS ORDERED: NITROGLYCERIN SL TABS 0.4 MG TAB SUBLINGUAL PRN (18:36)
[2018-10-21] MEDS ORDERED: CLOPIDOGREL 75 MG TAB PO ONE (18:38)
[2018-10-21] MEDS ORDERED: SODIUM CHLORIDE 0.9% 1,000 ML IV SCH (18:45)
--- NOTE | 2018-10-21 19:44 | CC ---
CARDIAC CATHETERIZATION REPORT DATE OF SERVICE: 10/21/2018 PERFORMING PHYSICIAN: Andry Bowie MD, insurance claim representative. PROCEDURES PERFORMED: 1. Selective left coronary angiogram. 2. Successful stenting of the proximal left anterior descending artery using a 3.0 x 18 mm Xience drug-eluting stent which was post dilated using a 3.25 mm NC balloon, with excellent angiographic results and reduction of stenosis from 70% to 0%. INDICATION: This is a pleasant 58-year-old gentleman with history of coronary artery disease, hypertension, dyslipidemia, as well as end-stage renal disease, on dialysis, who presented to the hospital with chest discomfort. Before he presented, he was experiencing chest discomfort when I saw him in the office and I did a stress test on him that revealed an anterior/apical ischemia. Because of that, a heart catheterization was advised. But the patient presented to the hospital with chest discomfort and because of that, heart catheterization was performed. APPROACH: Right common femoral artery. COMPLICATIONS: None. LEVEL OF SEDATION: Moderate, with sedation length of 38 minutes. PROCEDURE DESCRIPTION: After obtaining informed consent, the patient was brought to the cardiac dock or pier laborer. The right common femoral artery was cannulated using micropuncture technique. The micropuncture wire passed easily. Then I placed a 6-Bengali sheath 11 cm in the right common femoral artery. After that I did selective left coronary angiogram using JL3.5 guiding catheter. I did not do selective right coronary angiogram because the patient is known to have chronic total occlusion of the right coronary artery. After that I did intervene on the left anterior descending artery. Please see separate paragraph for that. SELECTIVE CORONARY ANGIOGRAM: 1. The left main is a large-caliber vessel. The left main is a short left main and appeared to be diseased in the range of 30% to 40%. It bifurcates into left circumflex and left anterior descending artery. 2. The left circumflex is a large-caliber vessel. It is a codominant vessel. The proximal circumflex is normal and gives rise to an OM1 which is stented and the stent is patent. The mid circumflex appeared to be normal and the circumflex distally appeared to be normal and bifurcates into PDA and PLV branches. Both appeared to be angiographically normal. 3. The proximal LAD appeared to have an eccentric lesion in the range of 70% to 80%. The mid LAD appeared to be diffusely diseased up to about 40% to 50%, and the LAD distally appeared to be angiographically normal. PERCUTANEOUS CORONARY INTERVENTION OF THE LEFT ANTERIOR DESCENDING CORONARY ARTERY: Anticoagulation was initiated using Angiomax. Using JL3.5 guiding catheter, I did engage the left main. I did wire the LAD using a run-through wire. I did predilatation using a 2.5 x 12 mm balloon before I deployed a 3.0 x 18 mm Xience RAMON where the stent was positioned under fluoroscopic guidance and deployed under 16 atmospheres for 20 seconds. I post dilated the stent using a 3.25 x 12 mm NC balloon. The final angiogram showed excellent angiographic results and the procedure was completed without any complication. CONCLUSION: 1. Known chronic total occlusion of the right coronary artery. Angiogram of the right coronary artery was not done this time. 2. Patent stent in OM1 of the left circumflex. 3. Severe disease involving the proximal LAD and intermediate disease involving the mid LAD. 4. Successful stenting of the proximal LAD using a 3.0 x 18 mm Xience drug-eluting stent with excellent angiographic results. POST-PROCEDURE MANAGEMENT: 1. Dual anti-platelet therapy. 2. Risk factor modifications. 3. Follow up with the patient. MMODL / IJN: [id number] /
--- NOTE | 2018-10-21 19:59 | LTR ---
October 21, 2018 To: Dr. Ten Mckeon Re: Irene Gillette (58) Dear Dr. Mckeon, Mr. Joel Gillette underwent today successful stenting of the proximal left anterior descending artery with good angiographic results and without any complication. I want to thank you for allowing us to participate in his care and please do not hesitate to call if you have any question or concerns. Sincerely, Andry Bowie MD MMVALERIE / BISIN: [id number] /
[2018-10-21 20:21] LABS: Glucose,Whole Blood 88 mg/dL (75-99)
[2018-10-21] MEDS: GABAPENTIN 300 MG CAP PO SCH (21:05)
[2018-10-21 23:42] VITALS: RESP 18
[2018-10-22] MEDS: CALCIUM ACETATE 667 MG CAP PO SCH ×2 (06:05→11:07)
[2018-10-22] MEDS: PANTOPRAZOLE 40 MG TABLET PO SCH (06:06)
[2018-10-22 06:44] LABS: Glucose,Whole Blood 128 mg/dL (75-99)
[2018-10-22] MEDS: ATORVASTATIN 80 MG TAB PO SCH (08:33)
[2018-10-22] MEDS: ALLOPURINOL 300 MG TAB PO SCH (08:33)
[2018-10-22] MEDS: AMIODARONE 200 MG TAB PO SCH (08:33)
[2018-10-22] MEDS: CLOPIDOGREL 75 MG TAB PO SCH (08:33)
[2018-10-22] MEDS: ASPIRIN 325 MG TAB PO SCH (08:33)
[2018-10-22] MEDS: METOPROLOL TARTRATE 12.5 MG TAB PO SCH (08:33)
[2018-10-22] MEDS: FUROSEMIDE 80 MG TAB PO SCH (08:33)
[2018-10-22] MEDS: INSULIN DETEMIR (LEVEMIR) 100 UNIT/ML SYR SQ SCH (08:34)
[2018-10-22] MEDS ORDERED: APIXABAN 2.5 MG TABLET PO SCH (09:00)
[2018-10-22 11:10] VITALS: BP 137/63; PULSE 52; TEMP 98.1
[2018-10-22 11:58] LABS: Glucose,Whole Blood 252 mg/dL (75-99)
--- NOTE | 2018-10-22 12:04 | P.DS ---
Providers Date of admission: 10/20/18 15:37 Attending physician: Wayne Maxwell Consults: 10/19/18 16:00 Consult Physician Urgent Consulting Provider: Andry Bowie Consult Reason/Comments: palpatations, chest discomfort Do you want consulting provider notified?: Yes 10/20/18 10:20 Consult Physician Routine Consulting Provider: Janine Nguyen Consult Reason/Comments: ESRD on HD, heart cath tomorow. Will need HD after. MWF pt Do you want consulting provider notified?: Yes 10/21/18 18:37 Consult Physician Routine Consulting Provider: [facility] Consult Reason/Comments: Post Interventional patient Do you want consulting provider notified?: Already Contacted Primary care physician: [facility] Course: This is a 58-year-old male patient of Dr Mike Nguyen with history of hypertension and hypertensive cardio vascular disease with left ventricular hypertrophy, coronary artery disease status post stenting of the left circumflex in February 2018 , chronic diastolic heart failure, end-stage renal disease on hemodialysis 3 times weekly, hyperlipidemia,uncontrolled diabetes mellitus type II. Patient had recent angioplasty and stenting of the first obtuse marginal branch of the circumflex on March [address] Bowie. Patient was also found to have a chronically totally occluded RCA fills with collaterals from the left system, intermediate disease in the LAD. He has also had recent angioplasty of the fistula to the left arm done by Dr. Santizo at [facility]. Patient had recent hospitalization on August 05 for symptoms of chest discomfort, he was seen in consultation by Dr. Hall and recommended to be discharged home to follow-up in the office post discharge for outpatient stress testing. he had multiple visits to the ER since July 2018for atrial fibrillation with RVR post hemodialysis He was recently admitted to the hospital for observation secondary to A. fib with RVR after his hemodialysis, patient has recent had stress with that a family member, and was discharged to home yesterday. He was seen in consultation by Dr. Wills for which his amiodarone was titrated up to 200 mg twice a day, recently started on Eliquis 2.5 mg twice a day as in the past he had problems with epistaxis with Xarelo and bleeding off the gum related to the loss of the tooth.. He went to his routine hemodialysis schedule on Saturdays. During dialysis, his heart rate increased to 140s, I he complained off chest pressure left-sided, without adjacent to the arm and jaw, no shortness of breath, no abdominal pain, he completed only half of his hemodialysis, prior to arrival in the ED, he does not have lightheadedness, he was sent in from HD to the ER for evaluation n the emergency room, heart rate was 58 EKG, troponins are 0.03 EKG shows acute changes however to the claudication is noted, chest x-ray within normal limits, Echocardiogram performed 08/09/2018 EF 55-60%, moderate concentric LVH, mild MR, no pulmonary hypertension, no pericardial effusion cardiac Cath 08/09/2018, 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 which is a known finding from before, RCA fills with collaterals from the left coronary system, patent stent in the left circumflex ordinary activity, the LAD has intermediate disease involving LAD in its ostium, 60% proximal and midportion maximal treatment was recommended however there is also a recommendation that probably as an outpatient myocardial perfusion imaging stress test for ischemia in the LAD territory, and this shows ischemic changes in the LAD, [place] LAD possibly could be stented 10/20: Patient has been seen by cardiology with plan for heart catheterization likely angioplasty of the LAD scheduled for tomorrow. Nephrology will be seeing the patient regarding hemodialysis prior to heart catheterization. His home medications have been resumed except for eliquis is on hold. Patient states he is feeling a bit weak. His chest pain is gone. He states he has some cramping across his upper abdomen but no pain like that he takes. Yesterday. He has been walking the hallway without experiencing pain. 10/21: Patient is seen today on the observation unit. He has been afebrile, heart rate 55, blood pressure 167/73, pulse ox 90% on room air. Blood sugars running between 99 and 158. Patient is scheduled for heart catheterization this afternoon. After Patrick is planning for hemodialysis treatment after procedure. Anticipate probable discharge tomorrow. Patient remains chest pain-free. He states it is all gone. 10/22 and patient examined bedside doing well post surgery. Heart rate running in the low 50s. Blood pressure 137/63 creatinine 4.9 patient received his dialysis session yesterday is currently on his dry weight. Stent in LAD placed with no complications. Aspirin added in addition to eliquis and plavix as percardiology recommendation due to recetn stent Discharge diagnoses 1. N STEMI status post stenting of LAD 2. Uncontrolled type 2 diabetes with hyperglycemia. 3. History of coronary artery disease with previous left heart catheterization angioplasty and stenting of the first obtuse marginal branch of the circumflex on March [address] Bowie. 4. Chronic diastolic heart failure. 5. Anemia of chronic disease likely secondary to end-stage renal disease hemoglobin stable at 10.2 6. End-stage renal disease on hemodialysis 3 times weekly. 7. Diabetic polyneuropathy. 8. Hypertension and hypertensive cardio vascular disease with left ventricular hypertrophy. 9. History of restless leg syndrome. 10. History of gout. Disposition home with home care Patient Condition at Discharge: Stable Plan - Discharge Summary Discharge Rx Participant: No New Discharge Prescriptions: New Aspirin 81 mg PO DAILY #30 chewable Continue Clopidogrel [Plavix] 75 mg PO DAILY #30 tab Nitroglycerin Sl Tabs [Nitrostat] 0.4 mg SUBLINGUAL Q5M PRN #25 tab PRN Reason: Chest Pain Insulin Glargine,Hum.rec.anlog [Basaglar Kwikpen U-100] 20 unit SQ BID Gabapentin [Neurontin] 300 mg PO HS Furosemide [Lasix] 80 mg PO DAILY Allopurinol [Zyloprim] 150 mg PO DAILY Insulin Aspart [NovoLOG Flexpen] See Protocol SQ ACHS Calcium Acetate [PhosLo] 1,334 mg PO TID LORazepam [Ativan] 2 mg PO HS PRN PRN Reason: anxiety Atorvastatin [Lipitor] 80 mg PO DAILY #30 tab Metoprolol Tartrate [Lopressor] 12.5 mg PO BID #60 tab Pantoprazole [Protonix] 40 mg PO AC-BRKFST #30 tablet. Amiodarone [Cordarone] 200 mg PO BID #60 tab Apixaban [Eliquis] 2.5 mg PO BID #60 tablet Discharge Medication List Clopidogrel [Plavix] 75 mg PO DAILY #30 tab 03/05/18 [Rx] Nitroglycerin Sl Tabs [Nitrostat] 0.4 mg SUBLINGUAL Q5M PRN #25 tab 03/05/18 [Rx] Insulin Glargine,Hum.rec.anlog [Basaglar Kwikpen U-100] 20 unit SQ BID 03/24/18 [History] Allopurinol [Zyloprim] 150 mg PO DAILY 08/05/18 [History] Calcium Acetate [PhosLo] 1,334 mg PO TID 08/05/18 [History] Furosemide [Lasix] 80 mg PO DAILY 08/05/18 [History] Gabapentin [Neurontin] 300 mg PO HS 08/05/18 [History] Insulin Aspart [NovoLOG Flexpen] See Protocol SQ ACHS 08/05/18 [History] LORazepam [Ativan] 2 mg PO HS PRN 08/05/18 [History] Atorvastatin [Lipitor] 80 mg PO DAILY #30 tab 08/11/18 [Rx] Metoprolol Tartrate [Lopressor] 12.5 mg PO BID #60 tab 08/11/18 [Rx] Pantoprazole [Protonix] 40 mg PO AC-BRKFST #30 tablet. 08/11/18 [Rx] Amiodarone [Cordarone] 200 mg PO BID #60 tab 10/18/18 [Rx] Apixaban [Eliquis] 2.5 mg PO BID #60 tablet 10/18/18 [Rx] Aspirin 81 mg PO DAILY #30 chewable 10/22/18 [Rx] Follow up Appointment(s)/Referral(s): Ten Mckeon DO [Primary Care Provider] - 1-2 days Andry Bowie MD [STAFF PHYSICIAN] - 1 Week Discharge Disposition: HOME SELF-CARE
--- NOTE | 2018-10-22 12:15 | PN ---
PROGRESS NOTE Joel is a 58-year-old gentleman who is admitted to hospital with unstable angina and underwent cardiac catheterization and angioplasty of LAD. This morning, patient is doing well and is free of symptoms. He denies any chest pain or difficulty in breathing. He is currently on amiodarone 200 b.i.d., Eliquis 2.5 b.i.d., aspirin, Plavix 75 mg daily and Lopressor 12.5 b.i.d. He has end-stage renal disease and underwent hemodialysis last night. On exam, comfortable at rest. Vital signs are stable. Chest exam reveals good air entry bilaterally. Heart exam reveals first and second heart sounds. Systolic murmur at the apex. Abdomen is soft. Exam of the extremities did not reveal any edema. Peripheral pulses are felt. 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 I do not have any labs on him from this study. His creatinine is 4.9. ASSESSMENT: 1. Unstable angina, status post catheterization and angioplasty of left anterior descending artery. 2. End-stage renal disease on hemodialysis. PLAN: Patient is stable, cardiac-webb, is ready to be discharged home. Follow up with Dr. Bowie in the outpatient setting. MMODL / IJN: [id number] /
--- NOTE | 2018-10-22 12:32 | PN ---
PROGRESS NOTE Patient is seen for followup for end-stage renal disease. He did have a cardiac catheterization yesterday by Dr. Bowie and had intervention done as well with stenting of the proximal LAD. Patient tolerated the procedure well. He did have dialysis yesterday and is doing well and will be going home. PHYSICAL EXAMINATION: Blood pressure is 137/63, heart rate 52 per minute. He is afebrile. Examination of the heart S1, S2. Examination of the lungs, bilateral breath sounds are heard. Abdomen is soft, nontender. Examination of the lower extremities shows no evidence of edema. SURVEILLANCE OBSERVER exam grossly intact. LABS: Not available from today. Potassium was 3.9 on 10/19/2018. ASSESSMENT: 1. End-stage renal disease, on hemodialysis on a Wednesday, Wednesday, Wednesday schedule. 2. Recurrent atrial fibrillation with RVR, currently controlled. Most likely ischemic, status post coronary artery stenting, maintained on antiarrhythmic medications and anticoagulation. 3. Coronary artery disease status post cardiac catheterization and stenting of left anterior descending artery. Maintained on antiplatelet therapy as well. 4. Chronic kidney disease mineral bone disorder. 5. Hypertension. PLAN: Patient can be discharged from nephrology standpoint. Follow up with outpatient for hemodialysis on Wednesday. MMODL / IJN: [id number] /
--- NOTE | 2018-10-25 03:34 | CDI ---
Documentation Clarification Form Date: 10/25/18 From: Danial Verma Phone: call [phone] Admit Date: 10/20/2018 3:37:00 PM Patient Name: Joel Gillette Visit Number: [id number] Discharge Date: 10/22/2018 1:00:00 PM ATTENTION: The Clinical Documentation Specialists (CDI) and [facility] Coding Staff appreciate your assistance in clarifying documentation. Please respond to the clarification below the line at the bottom and electronically sign. The CDI & [facility] Coding staff will review the response and follow-up if needed. Please note: Queries are made part of the Legal Health Record. If you have any questions, please contact the author of this message via ITS. Dr. Mono Lima, Myocardial infarction is documented in the Discharge summary as NSTEMI. Patient History/Risk Factors: A fib, CAD, unstable angina. Clinical Indicators: troponins are 0.03 Troponin:0.03 EKG Results: EKG shows acute changes however to the claudication is noted. Treatment: Underwent Drug eluting stent. Consult: Azeb Wilde In order to capture the severity of condition and necessary documentation specificity, please clarify: NSTEMI Ruled in or Ruled out other, please clarify Unable to determine. MTDD
== END 2018-10-22 13:00 | disposition home or self-care (01) | DRG 246 ==
LOC: EC 14:33 → 1SOBS 15:59 → OBSVTOIN 10-20 15:37 → 3SCARD 10-21 18:14
PROVIDERS: ADMIT Internal Medicine; ATTEND Internal Medicine
PROC: B2151ZZ Fluoroscopy of Left Heart using Low Osmolar Contrast (ICD-10-PCS; principal; 2018-10-21 14:15)
PROC: 027034Z Dilation of Coronary Artery, One Artery with Drug-eluting Intraluminal Device, Percutaneous Approach (ICD-10-PCS; principal; 2018-10-21 14:15)
PROC: 5A1D70Z Performance of Urinary Filtration, Intermittent, Less than 6 Hours Per Day (ICD-10-PCS; 2018-10-21 14:15)
DX: I21.4 Non-ST elevation (NSTEMI) myocardial infarction (principal); N18.6 End stage renal disease; I13.2 Hypertensive heart and chronic kidney disease with heart failure and with stage 5 chronic kidney disease, or end stage renal disease; I50.32 Chronic diastolic (congestive) heart failure; I25.110 Atherosclerotic heart disease of native coronary artery with unstable angina pectoris; D63.8 Anemia in other chronic diseases classified elsewhere; I48.0 Paroxysmal atrial fibrillation; E11.22 Type 2 diabetes mellitus with diabetic chronic kidney disease; E11.42 Type 2 diabetes mellitus with diabetic polyneuropathy; E11.65 Type 2 diabetes mellitus with hyperglycemia; E78.5 Hyperlipidemia, unspecified; F32.9 Major depressive disorder, single episode, unspecified; F41.9 Anxiety disorder, unspecified; H54.8 Legal blindness, as defined in USA; G25.81 Restless legs syndrome; H91.90 Unspecified hearing loss, unspecified ear; M10.9 Gout, unspecified; K21.9 Gastro-esophageal reflux disease without esophagitis; I25.2 Old myocardial infarction; Z79.01 Long term (current) use of anticoagulants; Z79.4 Long term (current) use of insulin; Z79.899 Other long term (current) drug therapy; Z79.02 Long term (current) use of antithrombotics/antiplatelets; Z83.3 Family history of diabetes mellitus; Z80.8 Family history of malignant neoplasm of other organs or systems; Z87.891 Personal history of nicotine dependence; Z95.5 Presence of coronary angioplasty implant and graft; Z91.19 Patient's noncompliance with other medical treatment and regimen; Z99.2 Dependence on renal dialysis; Z98.890 Other specified postprocedural states; Z88.1 Allergy status to other antibiotic agents; Z88.5 Allergy status to narcotic agent
CPT/HCPCS: 36415; 71046; 80053; 80061; 82565; 83735; 84484; 85025; 85610; 85730; 90935; 93005; 93454; 94760; 99285; C1874

== ENCOUNTER 2019-01-15 11:55 | Emergency (ER) | payer MEDICARE, OTHER ==
[2019-01-15 12:05] VITALS: PULSE 60; RESP 18
--- NOTE | 2019-01-15 13:13 | US ---
EXAMINATION TYPE: US venous doppler duplex LE RT DATE OF EXAM: 01/15/2019 1:06 PM COMPARISON: NONE CLINICAL HISTORY: 58-year-old male with possible DVT. Edema and pain right leg SIDE PERFORMED: right TECHNIQUE: The lower extremity deep venous system is examined utilizing real time linear array sonog rin with graded compression, doppler sonography and color-flow sonography. FINDINGS: VESSELS IMAGED: External Iliac Vein (EIV) Common Femoral Vein Deep Femoral Vein Greater Saphenous Vein * Femoral Vein Popliteal Vein Small Saphenous Vein * Proximal Calf Veins (* superficial vessels) Right Leg: No evidence of DVT. Mildly complex, fluid collection within the right upper calf = 4.6 x 1.7 x 2.2cm IMPRESSION: 1. No evidence for DVT within the right lower extremity imaged from the groin to the upper calf. 2. A small to moderate-sized 4.6 cm, mildly complex Hernandez's cyst is suggested.
--- NOTE | 2019-01-15 13:25 | ED ---
General Adult HPI - General Chief complaint: Extremity Problem,Nontraumatic Stated complaint: Poss DVT Time Seen by Provider: 01/15/19 12:07 Source: patient Mode of arrival: wheelchair Limitations: no limitations - History of Present Illness Initial comments: 58-year-old male with a complicated past medical history including chronic renal failure on dialysis presents to the emergency department for right posterior knee pain. States his pain has been going on for several days. States he went to dialysis today and they wanted him to be evaluated for blood clot prior to doing dialysis. Patient denies any chest pain or shortness of breath. Does state he has had swelling of both lower extremities for over a month now. States he is prescribed Lasix for this but has only been taking one dose per day instead of 2 because he does not like taking the second dose. States he has an appointment with his primary care provider next week for this. Patient has no other complaints at this time including shortness of breath, chest pain, abdominal pain, nausea or vomiting, headache, or visual changes. - Related Data Home Medications Medication Instructions Recorded Confirmed Insulin Glargine,Hum.rec.anlog 20 unit SQ BID 03/24/18 10/19/18 [Basaglar Kwikpen U-100] Allopurinol [Zyloprim] 150 mg PO DAILY 08/05/18 10/19/18 Calcium Acetate [PhosLo] 1,334 mg PO TID 08/05/18 10/19/18 Furosemide [Lasix] 80 mg PO DAILY 08/05/18 10/19/18 Gabapentin [Neurontin] 300 mg PO HS 08/05/18 10/19/18 Insulin Aspart [NovoLOG Flexpen] See Protocol SQ ACHS 08/05/18 10/19/18 LORazepam [Ativan] 2 mg PO HS PRN 08/05/18 10/19/18 Previous Rx's Medication Instructions Recorded Clopidogrel [Plavix] 75 mg PO DAILY #30 tab 03/05/18 Nitroglycerin Sl Tabs [Nitrostat] 0.4 mg SUBLINGUAL Q5M PRN #25 tab 03/05/18 Atorvastatin [Lipitor] 80 mg PO DAILY #30 tab 08/11/18 Metoprolol Tartrate [Lopressor] 12.5 mg PO BID #60 tab 08/11/18 Pantoprazole [Protonix] 40 mg PO AC-BRKFST #30 tablet. 08/11/18 Amiodarone [Cordarone] 200 mg PO BID #60 tab 10/18/18 Apixaban [Eliquis] 2.5 mg PO BID #60 tablet 10/18/18 Aspirin 81 mg PO DAILY #30 chewable 10/22/18 Allergies Allergy/AdvReac Type Severity Reaction Status Date / Time codeine AdvReac Hallucinati Verified 01/15/19 12:05 ons morphine AdvReac Confusion Verified 01/15/19 12:05 All antibiotics except Keflex Allergy Unknown Uncoded 01/15/19 12:05 Childhood Review of Systems ROS Statement: Those systems with pertinent positive or pertinent negative responses have been documented in the HPI. ROS Other: All systems not noted in ROS Statement are negative. Past Medical History Past Medical History: Atrial Fibrillation, Coronary Artery Disease (CAD), Heart Failure, Diabetes Mellitus, Dialysis, Eye Disorder, GERD/Reflux, Hearing Disorder / Deafness, Hyperlipidemia, Hypertension, Myocardial Infarction (MD), Renal Disease, Syncope Additional Past Medical History / Comment(s): IDDM type II, neuropathy bilateral hands/feet, ESRD with hemodialysis on // with last time being 10/14/18, chronic anemia, LVH, Afib with RVR, MIs, chronic CHF, R eye blindness, L eye legally blind, RLS, pt unsure if he has gout, vertigo at times, balance issues at times, stomach ulcer at age 17yrs, sinus problems, very [place] R ear. Last Myocardial Infarction Date:: 08/09/18 History of Any Multi-Drug Resistant Organisms: None Reported Past Surgical History: Heart Catheterization, Heart Catheterization With Stent Additional Past Surgical History / Comment(s): TTT, PD catheter placement/since removed, 2016 L arm fistula, fistula gram with balloon for stenosis, L eye vitrectomy, thyroid needle aspiration-negative, L leg cyst, colonoscopy with benign polypectomy. Past Anesthesia/Blood Transfusion Reactions: Postoperative Nausea & Vomiting (PONV) Date of Last Stent Placement:: 03-03-18 Past Psychological History: Anxiety, Depression Smoking Status: Former smoker Past Alcohol Use History: None Reported Past Drug Use History: None Reported - Past Family History Father Family Medical History: Cancer, Hyperlipidemia Additional Family Medical History / Comment(s): ? BRAIN CANCER Mother Family Medical History: Diabetes Mellitus, Osteoarthritis (OA) Additional Family Medical History / Comment(s): DJD. MOM IS STILL ALIVE AT AGE 80 Sister(s) Family Medical History: Diabetes Mellitus Brother(s) Family Medical History: Diabetes Mellitus Additional Family Medical History / Comment(s): Patient has 4 kids no major medical problems. General Exam Limitations: no limitations General appearance: alert, in no apparent distress Head exam: Present: atraumatic, normocephalic, normal inspection Eye exam: Present: normal appearance, PERRL, EOMI. Absent: scleral icterus, conjunctival injection, periorbital swelling ENT exam: Present: normal exam, mucous membranes moist Neck exam: Present: normal inspection, full ROM. Absent: tenderness, meningismus, lymphadenopathy Respiratory exam: Present: normal lung sounds bilaterally. Absent: respiratory distress, wheezes, rales, rhonchi, stridor Cardiovascular Exam: Present: regular rate, normal rhythm, normal heart sounds. Absent: systolic murmur, diastolic murmur, rubs, gallop, clicks GI/Abdominal exam: Present: soft, normal bowel sounds. Absent: distended, tenderness, guarding, rebound, rigid Extremities exam: Present: normal capillary refill (cap refill less than 2 seconds in bilateral lower extremities.), pedal edema (Patient does have 2+ pitting pedal edema laterally.). Absent: calf tenderness (Tenderness bilaterally. Patient does have some right posterior knee tenderness. There is no erythema on skin exam of the entire right lower extremity.) Course Vital Signs 01/15/19 01/15/19 12:03 13:36 Temperature 98.4 F 98.2 F Pulse Rate 60 60 Respiratory 18 18 Rate Blood Pressure 150/68 145/70 O2 Sat by Pulse 96 95 Oximetry Medical Decision Making - Medical Decision Making Ultrasound shows no evidence of DVT within the right lower extremity image from the groin to the upper calf. There is a small to moderate-sized 4.6 cm mildly complex Hernandez's cyst noted. Given tenderness posterior to the right knee ultrasound was obtained which shows a small to moderate sized mildly complex Hernandez's cyst. There is no evidence of DVT. Neurovascular status intact in the right lower extremity. Patient will be given orthopedic follow-up. I did discuss bilateral lower extremity edema with patient. This has been chronic. He is not taking his Lasix as directed, I did recommend he follow Dr. Mckeon's prescription and take it twice a day. He does agree to do this. He will also follow up with Dr. Mckeon for this. He denies any chest pain or shortness of breath in the emergency department. I discussed this case with attending Dr. Caal who agrees with this assessment and treatment plan. Disposition Clinical Impression: Hernandez's cyst Disposition: HOME SELF-CARE Condition: Good Instructions (If sedation given, give patient instructions): Bakers Cyst (ED) Additional Instructions: Take Tylenol for pain. Follow-up with orthopedics for Hernandez's cyst. Follow up with Dr. Mckeon at your scheduled appointment or earlier if possible. Take your Lasix as prescribed. Return to the emergency department if you have any worsening symptoms. Is patient prescribed a controlled substance at d/c from ED?: No Referrals: Ten Mckeon DO [Primary Care Provider] - 1-2 days Mello Otero MD [STAFF PHYSICIAN] - 1-2 days Time of Disposition: 13:44
[2019-01-15 13:37] VITALS: BP 145/70; TEMP 98.2
== END 2019-01-15 13:53 | disposition home or self-care (01) ==
LOC: EC 11:55
DX: M71.21 Synovial cyst of popliteal space [Baker], right knee (principal); R60.0 Localized edema; E11.22 Type 2 diabetes mellitus with diabetic chronic kidney disease; F32.9 Major depressive disorder, single episode, unspecified; F41.9 Anxiety disorder, unspecified; I25.10 Atherosclerotic heart disease of native coronary artery without angina pectoris; I13.2 Hypertensive heart and chronic kidney disease with heart failure and with stage 5 chronic kidney disease, or end stage renal disease; I50.9 Heart failure, unspecified; E11.40 Type 2 diabetes mellitus with diabetic neuropathy, unspecified; D63.1 Anemia in chronic kidney disease; H54.7 Unspecified visual loss; I25.2 Old myocardial infarction; N18.6 End stage renal disease; Z79.4 Long term (current) use of insulin; Z79.899 Other long term (current) drug therapy; Z79.82 Long term (current) use of aspirin; Z99.2 Dependence on renal dialysis; Z87.891 Personal history of nicotine dependence; Z88.5 Allergy status to narcotic agent; Z88.1 Allergy status to other antibiotic agents; Z95.5 Presence of coronary angioplasty implant and graft; Z98.890 Other specified postprocedural states
CPT/HCPCS: 99283

== ENCOUNTER 2019-02-01 11:55 | Observation (INO) | payer MEDICARE, BC, OTHER ==
[2019-02-01] MEDS ORDERED: ASPIRIN 81 MG PO STA (12:07)
[2019-02-01] MEDS ORDERED: NITROGLYCERIN OINT 1 INCH/GM PACKET TOPICAL STA (12:07)
--- NOTE | 2019-02-01 12:10 | ED ---
General Adult HPI - General Chief complaint: Chest Pain Stated complaint: chest pain Time Seen by Provider: 02/01/19 12:00 Source: patient, RN notes reviewed, old records reviewed Mode of arrival: ambulatory Limitations: no limitations - History of Present Illness Initial comments: This is a 58-year-old male who presents emergency Department with a past medical history significant for renal dialysis, diabetes, high blood pressure, high cholesterol, and a cardiac history which includes atrial fibrillation 2 heart attacks and multiple stents. Patient presents today with chest pain radiated to her left shoulder he also states he had some fluttering in the chest shortness of breath as well. Patient states this occurred while sitting and waiting to be dialyzed. Patient did not get dialysis. Patient denies any recent fever chills or cough. Patient states the chest pain lasted until he got to the emergency department here and at this time he has no chest pain at all. Patient denies any nausea patient denies any diaphoretic episodes. Patient denies any abdominal pain. Patient states he has swelling in his legs and it is no worse than normal. - Related Data Home Medications Medication Instructions Recorded Confirmed Insulin Glargine,Hum.rec.anlog 20 unit SQ BID 03/24/18 02/01/19 [Basaglar Kwikpen U-100] Allopurinol [Zyloprim] 150 mg PO DAILY 08/05/18 02/01/19 Calcium Acetate [PhosLo] 1,334 mg PO TID 08/05/18 02/01/19 Furosemide [Lasix] 80 mg PO DAILY 08/05/18 02/01/19 Insulin Aspart [NovoLOG Flexpen] See Protocol SQ ACHS 08/05/18 02/01/19 LORazepam [Ativan] 2 mg PO HS PRN 08/05/18 02/01/19 Amiodarone [Cordarone] 100 mg PO DAILY 02/01/19 02/01/19 Atorvastatin [Lipitor] 80 mg PO HS 02/01/19 02/01/19 Gabapentin [Neurontin] 400 mg PO HS 02/01/19 02/01/19 Previous Rx's Medication Instructions Recorded Clopidogrel [Plavix] 75 mg PO DAILY #30 tab 03/05/18 Nitroglycerin Sl Tabs [Nitrostat] 0.4 mg SUBLINGUAL Q5M PRN #25 tab 03/05/18 Metoprolol Tartrate [Lopressor] 12.5 mg PO BID #60 tab 08/11/18 Pantoprazole [Protonix] 40 mg PO SOPHIE-BRKFST #30 tablet. 08/11/18 Apixaban [Eliquis] 2.5 mg PO BID #60 tablet 10/18/18 Allergies Allergy/AdvReac Type Severity Reaction Status Date / Time codeine AdvReac Hallucinati Verified 02/01/19 13:34 ons morphine AdvReac Confusion Verified 02/01/19 13:34 All antibiotics except Keflex Allergy Unknown Uncoded 01/15/19 12:05 Childhood Review of Systems ROS Statement: Those systems with pertinent positive or pertinent negative responses have been documented in the HPI. ROS Other: All systems not noted in ROS Statement are negative. Past Medical History Past Medical History: Atrial Fibrillation, Coronary Artery Disease (CAD), Heart Failure, Diabetes Mellitus, Dialysis, Eye Disorder, GERD/Reflux, Hearing Disorder / Deafness, Hyperlipidemia, Hypertension, Myocardial Infarction ([place]), Renal Disease, Syncope Additional Past Medical History / Comment(s): IDDM type II, neuropathy bilateral hands/feet, ESRD with hemodialysis on // with last time being 10/14/18, chronic anemia, LVH, Afib with RVR, MIs, chronic CHF, R eye blindness, L eye legally blind, RLS, pt unsure if he has gout, vertigo at times, balance issues at times, stomach ulcer at age 17yrs, sinus problems, very [place] R ear. Last Myocardial Infarction Date:: 08/09/18 History of Any Multi-Drug Resistant Organisms: None Reported Past Surgical History: Heart Catheterization, Heart Catheterization With Stent Additional Past Surgical History / Comment(s): TTT, PD catheter placement/since removed, 2016 L arm fistula, fistula gram with balloon for stenosis, L eye vitrectomy, thyroid needle aspiration-negative, L leg cyst, colonoscopy with benign polypectomy. Past Anesthesia/Blood Transfusion Reactions: Postoperative Nausea & Vomiting (PONV) Date of Last Stent Placement:: 03-03-18 Past Psychological History: Anxiety, Depression Smoking Status: Former smoker Past Alcohol Use History: None Reported Past Drug Use History: None Reported - Past Family History Father Family Medical History: Cancer, Hyperlipidemia Additional Family Medical History / Comment(s): ? BRAIN CANCER Mother Family Medical History: Diabetes Mellitus, Osteoarthritis (OA) Additional Family Medical History / Comment(s): DJD. MOM IS STILL ALIVE AT AGE 80 Sister(s) Family Medical History: Diabetes Mellitus Brother(s) Family Medical History: Diabetes Mellitus Additional Family Medical History / Comment(s): Patient has 4 kids no major medical problems. General Exam - General Exam Comments Initial Comments: GENERAL: Patient is well-developed and well-nourished. Patient is nontoxic and well- hydrated and is in no acute distress. ENT: Neck is soft and supple. No significant lymphadenopathy is noted. Oropharynx is clear. Moist mucous membranes. Neck has full range of motion without eliciting any pain. EYES: The sclera were anicteric and conjunctiva were pink and moist. Extraocular movements were intact and pupils were equal round and reactive to light. Eyelids were unremarkable. PULMONARY: Unlabored respirations. Good breath sounds bilaterally. No audible rales rhonchi or wheezing was noted. CARDIOVASCULAR: There is a regular rate and rhythm without any murmurs gallops or rubs. ABDOMEN: Soft and nontender with normal bowel sounds. SKIN: Skin is clear with no lesions or rashes and otherwise unremarkable. NEUROLOGIC: Patient is alert and oriented x3. Cranial nerves II through XII are grossly intact. Motor and sensory are also intact. Normal speech, volume and content. Symmetrical smile. MUSCULOSKELETAL: Normal extremities with adequate strength and full range of motion. 2+ edema bilaterally LYMPHATICS: No significant lymphadenopathy is noted PSYCHIATRIC: Normal psychiatric evaluation. Normal interpersonal interactions appears functionally intact in deals appropriately with others. No signs of depression. No signs of anxiety. Limitations: no limitations Course Vital Signs 02/01/19 02/01/19 02/01/19 11:56 11:59 12:06 Temperature 97.8 F 97.8 F Pulse Rate 58 L Respiratory 18 18 18 Rate Blood Pressure 177/85 O2 Sat by Pulse 96 96 Oximetry 02/01/19 02/01/19 02/01/19 12:30 12:59 13:00 Temperature 97.8 F Pulse Rate 58 L 58 L Respiratory 16 18 Rate Blood Pressure 168/78 168/79 O2 Sat by Pulse 95 96 95 Oximetry Medical Decision Making - Medical Decision Making EKG shows normal sinus rhythm at 60 bpm NM interval 172 QRS is 94 QT interval 474 QTC is 474. Patient's EKG shows no ST segment elevation or depression or T wave abnormalities are noted Chest x-ray shows no acute abnormality I spoke with Dr. Maxwell he agreed to admit the patient admitted the patient I consult to cardiology. I did not send the patient heparin because the patient was already on eliquis. - Lab Data Result diagrams: 02/01/19 12:20 02/01/19 12:20 Lab Results 02/01/19 02/01/19 02/01/19 Range/Units 12:20 12:20 12:20 WBC 7.2 (3.8-10.6) k/uL RBC 3.37 L (4.30-5.90) m/uL Hgb 9.5 L (13.0-17.5) gm/dL Hct 29.7 L (39.0-53.0) % MCV 88.2 (80.0-100.0) fL MCH 28.1 (25.0-35.0) pg MCHC 31.9 (31.0-37.0) g/dL RDW 14.2 (11.5-15.5) % Plt Count 193 (150-450) k/uL Neutrophils % 72 % Lymphocytes % 13 % Monocytes % 6 % Eosinophils % 6 % Basophils % 1 % Neutrophils # 5.2 (1.3-7.7) k/uL Lymphocytes # 0.9 L (1.0-4.8) k/uL Monocytes # 0.4 (0-1.0) k/uL Eosinophils # 0.5 (0-0.7) k/uL Basophils # 0.0 (0-0.2) k/uL Hypochromasia Slight PT 10.5 (9.0-12.0) sec INR 1.0 (<1.2) APTT 22.8 (22.0-30.0) sec Sodium 135 L (137-145) mmol/L Potassium 4.2 (3.5-5.1) mmol/L Chloride 95 L (98-107) mmol/L Carbon Dioxide 29 (22-30) mmol/L Anion Gap 11 mmol/L BUN 73 H (9-20) mg/dL Creatinine 6.23 H (0.66-1.25) mg/dL Est GFR (CKD-EPI)AfAm 10 (>60 ml/min/1.73 sqM) Est GFR (CKD-EPI)NonAf 9 (>60 ml/min/1.73 sqM) Glucose 437 H (74-99) mg/dL Calcium 9.1 (8.4-10.2) mg/dL Magnesium 2.2 (1.6-2.3) mg/dL Total Bilirubin 0.6 (0.2-1.3) mg/dL AST 22 (17-59) U/L ALT 40 (21-72) U/L Alkaline Phosphatase 199 H (38-126) U/L Troponin I (0.000-0.034) ng/mL Total Protein 6.1 L (6.3-8.2) g/dL Albumin 3.7 (3.5-5.0) g/dL 02/01/19 Range/Units 12:20 WBC (3.8-10.6) k/uL RBC (4.30-5.90) m/uL Hgb (13.0-17.5) gm/dL Hct (39.0-53.0) % MCV (80.0-100.0) fL MCH (25.0-35.0) pg MCHC (31.0-37.0) g/dL RDW (11.5-15.5) % Plt Count (150-450) k/uL Neutrophils % % Lymphocytes % % Monocytes % % Eosinophils % % Basophils % % Neutrophils # (1.3-7.7) k/uL Lymphocytes # (1.0-4.8) k/uL Monocytes # (0-1.0) k/uL Eosinophils # (0-0.7) k/uL Basophils # (0-0.2) k/uL Hypochromasia PT (9.0-12.0) sec INR (<1.2) APTT (22.0-30.0) sec Sodium (137-145) mmol/L Potassium (3.5-5.1) mmol/L Chloride (98-107) mmol/L Carbon Dioxide (22-30) mmol/L Anion Gap mmol/L BUN (9-20) mg/dL Creatinine (0.66-1.25) mg/dL Est GFR (CKD-EPI)AfAm (>60 ml/min/1.73 sqM) Est GFR (CKD-EPI)NonAf (>60 ml/min/1.73 sqM) Glucose (74-99) mg/dL Calcium (8.4-10.2) mg/dL Magnesium (1.6-2.3) mg/dL Total Bilirubin (0.2-1.3) mg/dL AST (17-59) U/L ALT (21-72) U/L Alkaline Phosphatase (38-126) U/L Troponin I 0.026 (0.000-0.034) ng/mL Total Protein (6.3-8.2) g/dL Albumin (3.5-5.0) g/dL Disposition Clinical Impression: Unstable angina pectoris Disposition: ADMITTED IP TO THIS HOSP Referrals: Ten Mckeon DO [Primary Care Provider] - 1-2 days Time of Disposition: 13:47
[2019-02-01 12:41] LABS: Basophils % (A) 1 %; Eosinophils # (A) 0.5 k/uL (0-0.7); Eosinophils % (A) 6 %; HCT 29.7 % (39.0-53.0); HGB 9.5 gm/dL (13.0-17.5); Hypochromasia Slight; Lymphocytes # (A) 0.9 k/uL (1.0-4.8); Lymphocytes % (A) 13 %; MCH 28.1 pg (25.0-35.0); MCHC 31.9 g/dL (31.0-37.0); MCV 88.2 fL (80.0-100.0); Mean Platelet Volume 7.6; Monocytes # (A) 0.4 k/uL (0-1.0); Monocytes % (A) 6 %; Neutrophils # (A) 5.2 k/uL (1.3-7.7); Neutrophils % (A) 72 %; Platelet Count 193 k/uL (150-450); RBC 3.37 m/uL (4.30-5.90); RDW 14.2 % (11.5-15.5); WBC 7.2 k/uL (3.8-10.6)
[2019-02-01 12:48] LABS: Partial Thromboplastin Time 22.8 sec (22.0-30.0); Prothrombin Time 10.5 sec (9.0-12.0)
--- NOTE | 2019-02-01 12:56 | XR ---
EXAMINATION TYPE: XR chest 2V DATE OF EXAM: 02/01/2019 COMPARISON: 10/11/2018 HISTORY: Chest pain TECHNIQUE: Frontal and lateral views of the chest are obtained. FINDINGS: . Minimal left lower lung platelike atelectasis laterally. There is no focal air space [place], pleural effusion, or pneumothorax seen. The cardiac silhouette size is stable and mildly enlar ged. The osseous structures are intact. IMPRESSION: Very minimal left basilar subsegmental atelectasis. Otherwise no acute cardiopulmonary p rocess.
[2019-02-01 12:58] LABS: Albumin 3.7 g/dL (3.5-5.0); Calcium 9.1 mg/dL (8.4-10.2); Magnesium 2.2 mg/dL (1.6-2.3); Potassium 4.2 mmol/L (3.5-5.1); Total Bilirubin 0.6 mg/dL (0.2-1.3); Total Protein 6.1 g/dL (6.3-8.2)
[2019-02-01] MEDS ORDERED: NITROGLYCERIN SL TABS 0.4 MG TAB SUBLINGUAL PRN (13:47)
--- NOTE | 2019-02-01 15:13 | P.HPIM ---
History of Present Illness H&P Date: 02/01/19 Chief Complaint: Chest pain. This is a 58-year-old male one of Dr. 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 EKG did not show any evidence of acute of normalities, however because of the presentation he was ad mitted to the hospital for evaluation patient did not receive any dialysis, patient stated that he has been retaining a lot of fluid in his lower extremities after he was treated for some sort of dermatitis by skin DrJose Luis with prednisone that he had finished about 2 weeks ago, patient stated that he had 4 kg of water drained out of the system on Wednesday and he was supposed to go for dialysis today. Review of Systems Constitutional: Reports weight gain, Denies anorexia, Denies chronic headaches, Denies lethargy, Denies malaise Eyes: right loss of vision, left blurred vision, left decreased vision Ears: deny: decreased hearing Ears, nose, mouth and throat: Denies dysphagia, Denies neck lump, Denies swelling in throat, Denies sore throat Cardiovascular: Reports chest pain, Reports decreased exercise tolerance, Reports dyspnea on exertion, Reports leg edema, Reports lightheadedness, Reports shortness of breath, Denies orthopnea, Denies paroxysmal nocturnal dyspnea, Denies rapid heart beat, Denies syncope Respiratory: Reports sleep apnea, Denies congestion, Denies cough, Denies cough with sputum, Denies home oxygen, Denies respiratory infections, Denies snoring, Denies wheezing Gastrointestinal: Denies abdominal pain, Denies bloating, Denies BRBPR, Denies excessive gas, Denies heartburn, Denies hematemesis, Denies melena, Denies nausea, Denies vomiting Genitourinary: Denies dysuria Musculoskeletal: Denies myalgias Musculoskeletal: bilateral: ankle swelling, foot swelling, absent: ankle pain, ankle stiffness, elbow pain, elbow stiffness, elbow swelling, foot pain, foot stiffness, hand pain, hand stiffness, hand swelling, hip pain, hip stiffness, hip swelling, knee pain, knee stiffness, knee swelling, shoulder pain, shoulder stiffness, shoulder swelling, wrist pain, wrist stiffness, wrist swelling Integumentary: Reports pruritus, Reports rash (Likely folliculitis from itching.) Neurological: Denies numbness, Denies weakness Psychiatric: Reports anxiety, Reports depression, Denies sadness/tearfulness, Denies sleep disturbances, Denies suicidal ideation Endocrine: Denies fatigue, Denies weight change Past Medical History Past Medical History: Atrial Fibrillation, Coronary Artery Disease (CAD), Heart Failure, Diabetes Mellitus, Dialysis, Eye Disorder, GERD/Reflux, Hearing Disorder / Deafness, Hyperlipidemia, Hypertension, Myocardial Infarction (RI), Renal Disease, Syncope Additional Past Medical History / Comment(s): IDDM type II, neuropathy bilateral hands/feet, ESRD with hemodialysis on // with last time being 10/14/18, chronic anemia, LVH, Afib with RVR, MIs, chronic CHF, R eye blindness, L eye legally blind, RLS, pt unsure if he has gout, vertigo at times, balance issues at times, stomach ulcer at age 17yrs, sinus problems, very [place] R ear. Last Myocardial Infarction Date:: 08/09/18 History of Any Multi-Drug Resistant Organisms: None Reported Past Surgical History: Heart Catheterization, Heart Catheterization With Stent Additional Past Surgical History / Comment(s): TTT, PD catheter placement/since removed, 2017 L arm fistula, fistula gram with balloon for stenosis, L eye vitrectomy, thyroid needle aspiration-negative, L leg cyst, colonoscopy with benign polypectomy. Past Anesthesia/Blood Transfusion Reactions: Postoperative Nausea & Vomiting (PONV) Date of Last Stent Placement:: 03-03-18 Past Psychological History: Anxiety, Depression Smoking Status: Former smoker Past Alcohol Use History: None Reported Past Drug Use History: None Reported - Past Family History Father Family Medical History: Cancer (Father at age of 72 from brain cancer also had history of CAD.), Coronary Artery Disease (CAD), Hyperlipidemia Additional Family Medical History / Comment(s): ? BRAIN CANCER Mother Family Medical History: Diabetes Mellitus (Mother is 82-year-old with history of diabetes mellitus type 2 and osteoarthritis.), Osteoarthritis (OA) Additional Family Medical History / Comment(s): DJD. MOM IS STILL ALIVE AT AGE 80 Sister(s) Family Medical History: Diabetes Mellitus (Patient has one sister with diabetes mellitus type 2, SLE, MS.) Brother(s) Family Medical History: Diabetes Mellitus (Patient has one brother who is diabetic and the other one is a pediatric psychiatrist.) Additional Family Medical History / Comment(s): Patient has 4 kids no major medical problems. Daughter(s) Family Medical History: No Reported History (Patient has 2 daughters no major medical problems.) Son(s) Family Medical History: No Reported History (Patient has 2 sons no major medical problems.) Medications and Allergies Home Medications Medication Instructions Recorded Confirmed Type Clopidogrel [Plavix] 75 mg PO DAILY #30 tab 03/05/18 02/01/19 Rx Nitroglycerin Sl Tabs [Nitrostat] 0.4 mg SUBLINGUAL Q5M PRN #25 tab 03/05/18 02/01/19 Rx Insulin Glargine,Hum.rec.anlog 20 unit SQ BID 03/24/18 02/01/19 History [Basaglar Kwikpen U-100] Allopurinol [Zyloprim] 150 mg PO DAILY 08/05/18 02/01/19 History Calcium Acetate [PhosLo] 1,334 mg PO TID 08/05/18 02/01/19 History Furosemide [Lasix] 80 mg PO DAILY 08/05/18 02/01/19 History Insulin Aspart [NovoLOG Flexpen] See Protocol SQ ACHS 08/05/18 02/01/19 History LORazepam [Ativan] 2 mg PO HS PRN 08/05/18 02/01/19 History Metoprolol Tartrate [Lopressor] 12.5 mg PO BID #60 tab 08/11/18 02/01/19 Rx Pantoprazole [Protonix] 40 mg PO BULMARO #30 08/11/18 02/01/19 Rx Apixaban [Eliquis] 2.5 mg PO BID #60 tablet 10/18/18 02/01/19 Rx Acetaminophen Tab [Tylenol Tab] 1,000 mg PO Q6HR PRN 02/01/19 02/01/19 History Amiodarone [Cordarone] 100 mg PO DAILY 02/01/19 02/01/19 History Atorvastatin [Lipitor] 80 mg PO HS 02/01/19 02/01/19 History Fluocinonide Julieta 0.05% 1 applic TOPICAL DAILY PRN 02/01/19 02/01/19 History Gabapentin [Neurontin] 400 mg PO HS 02/01/19 02/01/19 History Hydrocortisone Oint 1 applic TOPICAL BID PRN 02/01/19 02/01/19 History [Hydrocortisone 2.5% Oint] Triamcinolone 0.1% Ointment 1 applic TOPICAL BID PRN 02/01/19 02/01/19 History [Kenalog 0.1% Ointment] hydrALAZINE HCL [Apresoline] 100 mg PO TID 02/01/19 02/01/19 History Allergies Allergy/AdvReac Type Severity Reaction Status Date / Time bumetanide [From Bumex] Allergy Hallucinati Verified 02/01/19 13:42 ons spironolactone Allergy Hallucinati Verified 02/01/19 13:42 ons codeine AdvReac Hallucinati Verified 02/01/19 13:34 ons morphine AdvReac Confusion Verified 02/01/19 13:34 All antibiotics except Keflex Allergy Unknown Uncoded 01/15/19 12:05 Childhood Physical Exam Vitals: Vital Signs Temp Pulse Resp BP Pulse Ox 02/01/19 14:00 60 144/65 92 L 02/01/19 13:30 58 L 150/76 93 L 02/01/19 13:00 58 L 168/79 95 02/01/19 12:59 97.8 F 18 96 02/01/19 12:30 58 L 16 168/78 95 02/01/19 12:06 18 02/01/19 11:59 97.8 F 18 96 02/01/19 11:56 97.8 F 58 L 18 177/85 96 Intake and Output 01/31/19 02/01/19 02/01/19 22:59 06:59 14:59 Other: Weight 106 kg - Constitutional General appearance: average body habitus, no acute distress - EENT Eyes: anicteric sclerae, EOMI, PERRLA, ptosis, no scleral icterus ENT: hearing grossly normal, NA/AT, normal oropharynx, no thrush Ears: bilateral: normal - Neck Neck: no lymphadenopathy, normal ROM, no rigidity, no stridor, no thyromegaly Carotids: bilateral: upstroke normal Thyroid: bilateral: normal size - Respiratory Respiratory: bilateral: diminished, negative: dullness, rales, rhonchi, wheezing, prolonged expiration - Cardiovascular Rhythm: regular Heart sounds: normal: S1, S2 Abnormal Heart Sounds: systolic murmur - Gastrointestinal General gastrointestinal: normal bowel sounds, soft, no splenomegaly, no tenderness, umbilical hernia, no ventral hernia - Integumentary Integumentary: normal turgor, rash - Musculoskeletal Musculoskeletal: gait normal, strength equal bilaterally - Psychiatric Psychiatric: A&O x's 3, appropriate affect, intact judgment & insight Results CBC & Chem 7: 02/01/19 12:20 02/01/19 12:20 Labs: Abnormal Lab Results - Last 24 Hours (Table) 02/01/19 02/01/19 Range/Units 12:20 12:20 RBC 3.37 L (4.30-5.90) m/uL Hgb 9.5 L (13.0-17.5) gm/dL Hct 29.7 L (39.0-53.0) % Lymphocytes # 0.9 L (1.0-4.8) k/uL Sodium 135 L (137-145) mmol/L Chloride 95 L (98-107) mmol/L BUN 73 H (9-20) mg/dL Creatinine 6.23 H (0.66-1.25) mg/dL Glucose 437 H (74-99) mg/dL Alkaline Phosphatase 199 H (38-126) U/L Total Protein 6.1 L (6.3-8.2) g/dL Thrombosis Risk Factor Assmnt - DVT/VTE Prophylaxis DVT/VTE Prophylaxis: Pharmacologic Prophylaxis ordered, Mechanical Prophylaxis ordered Assessment and Plan Assessment: Assessment and plan: 1. Chest pain in a patient with a prior history of CAD post-PCI of the LAD and LCx. Continue patient on Plavix 75 mg orally once every day, continue with metoprolol 12.5 mg orally twice every day, cardiac enzymes 3 every 8 hours, cardiology consultation. 2. End-stage renal disease on hemodialysis. Consult nephrology for dialysis ordered. Patient did not have his dialysis today. 3. CAD. Continue patient on metoprolol 12.5 mg orally twice every day, Lipitor 80 mg orally once every day. 4. Paroxysmal atrial fibrillation. Continue patient on amiodarone 100 mg orally once every day, Eliquis 2.5 mg orally twice every day. 5. Hypertension and hypertensive cardiovascular disease. Continue patient on hydralazine 100 mg orally 3 times every day, metoprolol 12.5 mg orally twice every day. 6. Diabetes mellitus type 2. Continue patient on Lantus 20 units of convinced every 12 hours, along with a sliding scale insulin, continue Accu-Chek before each meal and at bedtime. 7. Diabetic neuropathy. Continue patient on Neurontin 8. Diabetic retinopathy with right eye blindness and left eye legal blindness. Stable. 9. GERD. Continue patient on Protonix 40 mg orally once every day. 10. DVT prophylaxis. Continue with Eliquis. 11. GI process. Continue patient on PPI. 12. Patient's full code. 13. Observation.
[2019-02-01] MEDS ORDERED: INSULIN ASPART (NovoLOG) 100 UNIT/ML VIAL SQ ONE (16:13)
[2019-02-01] MEDS: NITROGLYCERIN OINT 1 INCH/GM PACKET TOPICAL SCH ×2 (18:20→23:40)
--- NOTE | 2019-02-01 18:39 | CONS ---
CONSULTATION Mr. Gillette is a 58-year-old gentleman who is seen for cardiac evaluation. This patient's electronic medical record is reviewed. This patient has a history of hypertension, hyperlipidemia, diabetes, history of paroxysmal atrial fibrillation, and end-stage renal disease, on dialysis. The patient recently had a stent to the proximal LAD. The patient was at the dialysis center this morning and he felt a heaviness and pain in the chest associated with some shortness of breath, and he felt that his pulse was radiating to his jaw. The pain continued on and off. Dialysis was canceled. The patient was transferred over here. EKG did not show any acute ischemic changes. Patient currently is in normal sinus rhythm and is resting comfortably. PAST MEDICAL HISTORY: His past medical history includes a history of recent stent to the proximal LAD, prior history of a stent to the circumflex coronary artery, history of hypertension, diabetes, end-stage renal disease. The patient had a left eye vitrectomy, colonoscopy and polypectomy. HOME MEDICATIONS: Patient's home medications are reviewed. PHYSICAL EXAMINATION: Physical examination at present reveals a 58-year-old gentleman who does not appear to be in any acute distress in the emergency room. The patient's oxygen saturation was 96%. Blood pressure was 177/85 mmHg. Patient was afebrile. Head and ENT examination is negative. Neck is supple. There is no increase in jugular venous pressure. Both the carotid pulses are felt. There is no bruit. Chest is symmetrical. HEART: The PMI is not felt. First and second heart sounds are heard. There is a grade 2/6 ejection systolic murmur noted. Lungs are clinically clear to auscultation and percussion. Abdomen is negative. EXTREMITIES: There is 1+ pedal edema. Peripheral pulsations are not well felt. LABS: Hemoglobin 9.5. Electrolytes are normal. Creatinine is 6.37. Ferritin level is and initial troponin is 0.026. Patient's reverse T3 level is high, 53. FINAL IMPRESSION: 1. This patient had a prolonged episode of chest pain. Rule out [id number]- elevation myocardial infarction. The patient is status post recent stent to the LAD. 2. Patient has a history of hypertension, hyperlipidemia and hypothyroidism. We will obtain serial EKGs and cardiac enzymes and, depending upon that, further recommendations will be made. Most likely patient will need a repeat cardiac catheterization. MMODL / IJN: [id number] /
[2019-02-01] MEDS ORDERED: diphenhydrAMINE 50 MG/ML 1 ML VIAL IVP STA (19:06)
[2019-02-01 19:42] LABS: Glucose,Whole Blood 150 mg/dL (75-99)
[2019-02-01] MEDS ORDERED: HYDROCORTISONE 1% OINT 28.35 GM TUBE TOPICAL PRN (21:29)
[2019-02-01] MEDS ORDERED: BETAMETHASONE DIPROPIONATE 0.05% CREAM 15 GM TUBE TOPICAL PRN (21:29)
[2019-02-01] MEDS ORDERED: LORazepam 1 MG TAB PO PRN (21:29)
[2019-02-01] MEDS ORDERED: TRIAMCINOLONE ACET 0.1% OINTMENT 15 GM TUBE TOPICAL PRN (21:29)
[2019-02-01] MEDS ORDERED: ACETAMINOPHEN TAB 500 MG TAB PO PRN (21:29)
[2019-02-01] MEDS: APIXABAN 2.5 MG TABLET PO SCH (22:22)
[2019-02-01] MEDS: hydrOXYzine HCL 25 MG TAB PO PRN (22:22)
[2019-02-01] MEDS: ATORVASTATIN 80 MG TAB PO SCH (22:22)
[2019-02-01] MEDS: GABAPENTIN 400 MG CAP PO SCH (22:22)
[2019-02-01] MEDS: hydrALAZINE HCL 50 MG TAB PO SCH (22:22)
[2019-02-01] MEDS: INSULIN DETEMIR (LEVEMIR) 100 UNIT/ML SYR SQ SCH (22:23)
[2019-02-02] MEDS: NITROGLYCERIN OINT 1 INCH/GM PACKET TOPICAL SCH ×4 (05:43→22:47)
[2019-02-02] MEDS: hydrOXYzine HCL 25 MG TAB PO PRN ×2 (05:43→17:14)
[2019-02-02 05:48] LABS: Glucose,Whole Blood 224 mg/dL (75-99)
[2019-02-02] MEDS: INSULIN ASPART (NovoLOG) 100 UNIT/ML VIAL SQ SCH ×4 (05:48→21:02)
[2019-02-02 07:23] LABS: Calcium 8.9 mg/dL (8.4-10.2); Potassium 3.7 mmol/L (3.5-5.1)
[2019-02-02] MEDS ORDERED: ASPIRIN 325 MG TAB PO STA (08:29)
[2019-02-02] MEDS ORDERED: ALPRAZolam 0.25 MG TAB PO PRN (08:29)
[2019-02-02] MEDS ORDERED: ATORVASTATIN 80 MG TAB PO STA (08:29)
[2019-02-02] MEDS ORDERED: NITROGLYCERIN SL TABS 0.4 MG TAB SUBLINGUAL PRN (08:29)
[2019-02-02] MEDS ORDERED: SODIUM CHLORIDE 0.9% 1,000 ML in EMPTY BAG 1 BAG IV ONE (08:29)
[2019-02-02] MEDS ORDERED: ALPRAZolam 0.5 MG TAB PO PRN (08:29)
[2019-02-02] MEDS: INSULIN DETEMIR (LEVEMIR) 100 UNIT/ML SYR SQ SCH ×2 (09:43→21:02)
[2019-02-02] MEDS: CALCIUM ACETATE 667 MG TAB PO SCH ×3 (09:43→17:13)
[2019-02-02] MEDS: APIXABAN 2.5 MG TABLET PO SCH ×2 (09:57→21:02)
[2019-02-02] MEDS: hydrALAZINE HCL 50 MG TAB PO SCH ×2 (09:57→10:52)
[2019-02-02] MEDS: METOPROLOL TARTRATE 12.5 MG TAB PO SCH ×2 (09:57→21:02)
[2019-02-02] MEDS: PANTOPRAZOLE 40 MG TABLET PO SCH (09:57)
[2019-02-02] MEDS: ASPIRIN 325 MG TAB PO SCH (09:57)
[2019-02-02] MEDS: CLOPIDOGREL 75 MG TAB PO SCH (09:58)
[2019-02-02] MEDS: ALLOPURINOL 300 MG TAB PO SCH (09:58)
[2019-02-02] MEDS: AMIODARONE 100 MG TAB PO SCH (09:58)
[2019-02-02] MEDS: FUROSEMIDE 80 MG TAB PO SCH (09:58)
[2019-02-02 11:14] LABS: Glucose,Whole Blood 148 mg/dL (75-99)
[2019-02-02] MEDS ORDERED: LIDOCAINE 1% INJ 10MG/ML (20 ML MDV) ONE (11:18)
[2019-02-02] MEDS ORDERED: fentaNYL (PF) 50 MCG/ML 2 ML AMP ONE (11:29)
[2019-02-02] MEDS ORDERED: IV FLUID CONTINUATION 1,000 ML IV ONE (11:30)
[2019-02-02] MEDS ORDERED: MIDAZOLAM 2 MG/2 ML VIAL IVP ONE (11:35)
[2019-02-02] MEDS ORDERED: fentaNYL (PF) 50 MCG/ML 2 ML AMP IVP ONE (11:35)
[2019-02-02] MEDS ORDERED: LIDOCAINE 1% INJ 10MG/ML (20 ML MDV) SQ ONE (11:37)
[2019-02-02] MEDS ORDERED: HYDROmorphone 1 MG/ML 1 ML SYRINGE ONE (11:42)
[2019-02-02] MEDS ORDERED: IOPAMIDOL-370 125ML BTL INJ ONE (11:56)
[2019-02-02] MEDS ORDERED: RX INFO: IV CONTRAST WAS GIVEN 1 EACH MISC MISCELLANE PRN (11:57)
[2019-02-02] MEDS ORDERED: SODIUM CHLORIDE 0.9% 1,000 ML IV SCH (12:00)
--- NOTE | 2019-02-02 12:26 | CC ---
CARDIAC CATHETERIZATION REPORT DATE OF SERVICE: February 02, 2019 PERFORMING PHYSICIAN: Andry Bowie MD. PROCEDURE PERFORMED: 1. Selective left coronary angiogram. 2. Left heart catheterization. INDICATION: This is a 58-year-old gentleman with history of coronary artery disease and known chronic total occlusion of the RCA as well as stenting of the left circumflex and LAD, presented to the hospital with chest discomfort. He was seen by Dr. Kemp who was concerned about severe underlying coronary artery disease and angina and because of that, heart catheterization was advised. APPROACH: Right common femoral artery. COMPLICATION: None. LEVEL OF SEDATION: Moderate with sedation length of 22 minutes. PROCEDURE DESCRIPTION: After obtaining an informed consent, the patient was brought to the cardiac cardiac cath lab radiology technologist. The right common femoral artery was cannulated using micropuncture technique, the micropuncture wire passed easily then I placed a 6-[place] sheath in the right common femoral artery. After that I did selective left coronary angiogram using JL4 and JL4 short tip. The JL4 was to the left circumflex and JL4 short tip for the LAD. Left heart catheterization was performed using 5-[place] pigtail catheter. The procedure was completed without any complication. SELECTIVE CORONARY ANGIOGRAM: 1. The left main is a short left main but angiographically normal. It bifurcates into LCX and LAD. 2. The LCX is a large caliber vessel. It is a nondominant vessel. The proximal circumflex is normal and gives rise into the first obtuse marginal branch which is stented and the stent is patent. The mid and distal circumflex appeared to be angiographically normal. 3. The LAD: The proximal LAD is stented and the stent is patent. The mid LAD has an area long tubular lesion appeared to be in the range of 50% to 60% and seems to be unchanged compared to before. Because of that I decided to leave the lesion alone. There was extensive left to right collaterals seen. HEMODYNAMICS: The LVEDP was 38 mmHg without significant gradient across the aortic valve. CONCLUSION: 1. Chronic total occlusion of small to medium caliber RCA which is known from before. 2. Patent stent in the left circumflex coronary artery. 3. Patent stent in the proximal left anterior descending artery. There was intermediate lesion involving the mid LAD with a long tubular lesion appeared to be in the range of 50% to 60% seems to be unchanged compared to before. 4. Severely elevated left ventricular end-diastolic pressure at 38 mmHg. POSTPROCEDURE MANAGEMENT: 1. Maximize medical treatment. 2. Dialysis later on today. 3. Follow up with the patient. LUL / LIS: [id number] /
[2019-02-02 12:46] LABS: Glucose,Whole Blood 152 mg/dL (75-99)
--- NOTE | 2019-02-02 14:29 | P.PN ---
Subjective Progress Note Date: 02/02/19 This is a 58-year-old male one of Dr. 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 EKG did not show any evidence of acute of normalities, however because of the presentation he was admitted to the hospital for evaluation patient did not receive any dialysis, patient stated that he has been retaining a lot of fluid in his lower extremities after he was treated for some sort of dermatitis by skin DrJose Luis with prednisone that he had finished about 2 weeks ago, patient stated that he had 4 kg of water drained out of the system on Wednesday and he was supposed to go for dialysis today. 02/02: Patient has been up for showers states he does not feel bad. He denies having any chest pain. He states itching is improved today. He did receive hemodialysis last evening and had 3 L removed. Troponins been 0.0-3, 0.0-3, 0.026. Patient has been afebrile, heart rate 57, blood pressure 140/75, pulse ox 95% on room air. BUN 44, creatinine 4.26, potassium 3.7. Patient has been seen by cardiology and is planned for heart catheterization today. Review of Systems Constitutional: Reports weight gain, Denies anorexia, Denies chronic headaches, Denies lethargy, Denies malaise Eyes: right loss of vision, left blurred vision, left decreased vision Ears: deny: decreased hearing Ears, nose, mouth and throat: Denies dysphagia, Denies neck lump, Denies swelling in throat, Denies sore throat Cardiovascular: Denies chest pain, Reports decreased exercise tolerance, Reports dyspnea on exertion, Reports leg edema, Reports lightheadedness, Reports shortness of breath, Denies orthopnea, Denies paroxysmal nocturnal dyspnea, Denies rapid heart beat, Denies syncope Respiratory: Reports sleep apnea, Denies congestion, Denies cough, Denies cough with sputum, Denies home oxygen, Denies respiratory infections, Denies snoring, Denies wheezing Gastrointestinal: Denies abdominal pain, Denies bloating, Denies BRBPR, Denies excessive gas, Denies heartburn, Denies hematemesis, Denies melena, Denies nausea, Denies vomiting Genitourinary: Denies dysuria Musculoskeletal: Denies myalgias Musculoskeletal: bilateral: ankle swelling, foot swelling, absent: ankle pain, ankle stiffness, elbow pain, elbow stiffness, elbow swelling, foot pain, foot stiffness, hand pain, hand stiffness, hand swelling, hip pain, hip stiffness, hip swelling, knee pain, knee stiffness, knee swelling, shoulder pain, shoulder stiffness, shoulder swelling, wrist pain, wrist stiffness, wrist swelling Integumentary: Reports pruritus, Reports rash (Likely folliculitis from itching.) Neurological: Denies numbness, Denies weakness Psychiatric: Reports anxiety, Reports depression, Denies sadness/tearfulness, Denies sleep disturbances, Denies suicidal ideation Endocrine: Denies fatigue, Denies weight change Objective - Vital Signs Vital signs: Vital Signs Temp 97.9 F 02/01/19 21:25 Pulse 57 L 02/02/19 03:19 Resp 17 02/02/19 03:19 BP 140/75 02/02/19 03:19 Pulse Ox 95 02/02/19 03:19 Intake & Output 02/01/19 02/02/19 02/02/19 18:59 06:59 18:59 Weight 106 kg 105.8 kg Other: # Voids 2 - Exam General appearance: average body habitus, no acute distress, patient sitting on the edge of the bed. - EENT Eyes: anicteric sclerae, EOMI, PERRLA, ptosis, no scleral icterus ENT: hearing grossly normal, NA/AT, normal oropharynx, no thrush Ears: bilateral: normal - Neck Neck: no lymphadenopathy, normal ROM, no rigidity, no stridor, no thyromegaly Carotids: bilateral: upstroke normal Thyroid: bilateral: normal size - Respiratory Respiratory: bilateral: diminished, negative: dullness, rales, rhonchi, wheezing, prolonged expiration - Cardiovascular Rhythm: regular Heart sounds: normal: S1, S2 Abnormal Heart Sounds: systolic murmur - Gastrointestinal General gastrointestinal: normal bowel sounds, soft, no splenomegaly, no tenderness, umbilical hernia, no ventral hernia - Integumentary Integumentary: normal turgor, rash - Musculoskeletal Musculoskeletal: gait normal, strength equal bilaterally - Psychiatric Psychiatric: A&O x's 3, appropriate affect, intact judgment & insight - Labs CBC & Chem 7: 02/01/19 12:20 02/02/19 06:00 Labs: Abnormal Lab Results - Last 24 Hours (Table) 02/01/19 02/01/19 02/01/19 Range/Units 12:20 12:20 19:41 RBC 3.37 L (4.30-5.90) m/uL Hgb 9.5 L (13.0-17.5) gm/dL Hct 29.7 L (39.0-53.0) % Lymphocytes # 0.9 L (1.0-4.8) k/uL Sodium 135 L (137-145) mmol/L Chloride 95 L (98-107) mmol/L BUN 73 H (9-20) mg/dL Creatinine 6.23 H (0.66-1.25) mg/dL Glucose 437 H (74-99) mg/dL POC Glucose (mg/dL) 150 H (75-99) mg/dL Alkaline Phosphatase 199 H (38-126) U/L Total Protein 6.1 L (6.3-8.2) g/dL Triglycerides (<150) mg/dL 02/02/19 02/02/19 Range/Units 05:46 06:00 RBC (4.30-5.90) m/uL Hgb (13.0-17.5) gm/dL Hct (39.0-53.0) % Lymphocytes # (1.0-4.8) k/uL Sodium 135 L (137-145) mmol/L Chloride (98-107) mmol/L BUN 44 H (9-20) mg/dL Creatinine 4.26 H (0.66-1.25) mg/dL Glucose 197 H (74-99) mg/dL POC Glucose (mg/dL) 224 H (75-99) mg/dL Alkaline Phosphatase (38-126) U/L Total Protein (6.3-8.2) g/dL Triglycerides 153 H (<150) mg/dL Assessment and Plan Plan: 1. Chest pain in a patient with a prior history of CAD post-PCI of the LAD and LCx. Continue patient on Plavix 75 mg orally once every day, continue with metoprolol 12.5 mg orally twice every day, cardiac enzymes as above, cardiology consult appreciated. Patient scheduled for heart catheterization today. 2. End-stage renal disease on hemodialysis. Consult nephrology for dialysis ordered. Patient completed dialysis last evening with plan for repeat dialysis today. 3. CAD. Continue patient on metoprolol 12.5 mg orally twice every day, Lipitor 80 mg orally once every day. 4. Paroxysmal atrial fibrillation. Continue patient on amiodarone 100 mg orally once every day, Eliquis 2.5 mg orally twice every day. 5. Hypertension and hypertensive cardiovascular disease. Continue patient on hydralazine 100 mg orally 3 times every day, metoprolol 12.5 mg orally twice every day. 6. Diabetes mellitus type 2. Continue patient on Lantus 20 units of convinced every 12 hours, along with a sliding scale insulin, continue Accu-Chek before each meal and at bedtime. 7. Diabetic neuropathy. Continue patient on Neurontin 8. Diabetic retinopathy with right eye blindness and left eye legal blindness. Stable. 9. GERD. Continue patient on Protonix 40 mg orally once every day. 10. DVT prophylaxis. Continue with Eliquis. 11. GI process. Continue patient on PPI. 12. Patient's full code. Discharge plan: Home monitor and anticipate probable discharge home tomorrow Impression and plan of care have been directed as dictated by the signing physician. Katelyn Wesley nurse practitioner acting as scribe for signing physician.
[2019-02-02 17:02] LABS: Glucose,Whole Blood 179 mg/dL (75-99)
[2019-02-02 20:20] LABS: Glucose,Whole Blood 224 mg/dL (75-99)
[2019-02-02] MEDS: GABAPENTIN 400 MG CAP PO SCH (21:02)
[2019-02-02] MEDS: ATORVASTATIN 80 MG TAB PO SCH (21:02)
[2019-02-03 05:48] LABS: Glucose,Whole Blood 173 mg/dL (75-99)
[2019-02-03] MEDS: NITROGLYCERIN OINT 1 INCH/GM PACKET TOPICAL SCH (06:31)
[2019-02-03] MEDS: CALCIUM ACETATE 667 MG TAB PO SCH (06:33)
[2019-02-03] MEDS: PANTOPRAZOLE 40 MG TABLET PO SCH (06:33)
[2019-02-03] MEDS: INSULIN ASPART (NovoLOG) 100 UNIT/ML VIAL SQ SCH ×2 (06:33→11:55)
[2019-02-03] MEDS: ASPIRIN 325 MG TAB PO SCH (07:44)
[2019-02-03] MEDS: AMIODARONE 100 MG TAB PO SCH (07:44)
[2019-02-03] MEDS: ALLOPURINOL 300 MG TAB PO SCH (07:44)
[2019-02-03] MEDS: APIXABAN 2.5 MG TABLET PO SCH (07:45)
[2019-02-03] MEDS: CLOPIDOGREL 75 MG TAB PO SCH (07:45)
[2019-02-03] MEDS: METOPROLOL TARTRATE 12.5 MG TAB PO SCH (07:45)
[2019-02-03] MEDS: FUROSEMIDE 80 MG TAB PO SCH (07:45)
[2019-02-03] MEDS: INSULIN DETEMIR (LEVEMIR) 100 UNIT/ML SYR SQ SCH (07:45)
[2019-02-03 11:45] LABS: Glucose,Whole Blood 111 mg/dL (75-99)
--- NOTE | 2019-02-03 12:00 | P.PN ---
Subjective Progress Note Date: 02/03/19 This is 58-year-old gentleman who has history of hypertension, hyperlipidemia, diabetes, paroxysmal atrial fibrillation and end-stage renal disease on dialysis, he recently underwent stent placement to the proximal LAD. Presented to the hospital with chest heaviness. 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 Severely elevated left ventricular end- diastolic pressure. Patient underwent dialysis this morning, he was seen and examined, feels well, denies any chest discomfort in his breathing is stable. Blood pressure 132/62 with a heart rate in the 50s, 99% on room air. Objective - Vital Signs Vital signs: Vital Signs Temp 98.2 F 02/03/19 07:41 Pulse 50 L 02/03/19 07:41 Resp 18 02/03/19 08:00 BP 152/74 02/03/19 07:41 Pulse Ox 100 02/03/19 07:41 Intake & Output 02/02/19 02/03/19 02/03/19 18:59 06:59 18:59 Intake Total 340 Output Total 2000 Balance 340 -2000 Weight 103.6 kg Intake: IV 100 Oral 240 Output: Hemodialysis 1999 Other: # Voids 0 1 - Exam PHYSICAL EXAMINATION: GENERAL: 58-year-old gentleman in no acute distress at the time of my examination HEENT: Head is atraumatic, normocephalic. Pupils equal, round. Sclera anicteric. Conjunctiva are clear. Mucous membranes of the mouth are moist. Neck is supple. There is no elevated jugular venous pressure. No carotid brui t is heard. HEART EXAMINATION: Heart S1, S2 normal. No murmur or gallop heard. CHEST EXAMINATION: Lungs are clear to auscultation and precussion. No chest wall tenderness is noted on palpation or with deep breathing. ABDOMEN: Soft, nontender. Bowel sounds are heard. No organomegaly noted. EXTREMITIES: 2+ peripheral pulses with no evidence of peripheral edema and no calf tenderness noted. Right groin is soft, no evidence of any hematoma. NEUROLOGIC patient is awake, alert and oriented 3 . . 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 Medical therapy advised #2 coronary artery disease with prior LAD and circumflex stenting #3 hypertension #4 hyperlipidemia #5 end-stage renal disease on dialysis #6 diabetes #7 paroxysmal atrial fibrillation Plan From cardiology's perspective, patient may be able to be discharged home today. He already has a follow-up appointment with Dr. Hinojosa that he has been advised to keep. DNP note has been reviewed, I agree with a documented findings and plan of care. Patient was seen and examined.
--- NOTE | 2019-02-03 12:04 | P.DS ---
Providers Date of admission: 02/01/19 13:47 Expected date of discharge: 02/03/19 Attending physician: Wayne Maxwell Consults: 02/01/19 13:47 Consult Physician Urgent Consulting Provider: [facility] Consult Reason/Comments: Unstable angina Do you want consulting provider notified?: Yes 02/01/19 15:56 Consult Physician Urgent Consulting Provider: Janine Nguyen Consult Reason/Comments: Needs dialysis Do you want consulting provider notified?: Yes Primary care physician: Ten Mckeon [facility] Course: This is a 58-year-old male one of Dr. Mckeon with a previous medical history significant for hypertension and hypertensive cardiovascular disease, hyperlipidemia, diabetes mellitus type 2, paroxysmal atrial fibrillation, coronary artery disease status post left heart catheterization and PCI of the obtuse marginal branch #1 off the LCx, followed by a recent PCI and stenting of the LAD back in September 2018, end-stage renal disease on hemodialysis , blindness of the right eye as well as left eye legally blind, patient went to dialysis today in the morning and while he was sitting in the waiting room he developed to have a significant heaviness in his chest associated with increased shortness of breath and he felt his heart was beating funny he asked the nurse to check his heart and she asked to sit down for a bit, and after that she called his daughter and his daughter brought him to the ER for evaluation, patient stated that he was recently seen by cardiology and his amiodarone was decreased from 400-to a 100 mg daily. EKG did not show any evidence of acute of normalities, however because of the presentation he was admitted to the hospital for evaluation patient did not receive any dialysis, patient stated that he has been retaining a lot of fluid in his lower extremities after he was treated for some sort of dermatitis by skin with prednisone that he had finished about 2 weeks ago, patient stated that he had 4 kg of water drained out of the system on Wednesday and he was supposed to go for dialysis today. 02/02: Patient has been up for showers states he does not feel bad. He denies having any chest pain. He states itching is improved today. He did receive hemodialysis last evening and had 3 L removed. Troponins been 0.0-3, 0.0-3, 0.026. Patient has been afebrile, heart rate 57, blood pressure 140/75, pulse ox 95% on room air. BUN 44, creatinine 4.26, potassium 3.7. Patient has been seen by cardiology and is planned for heart catheterization today. 02/03:patient underwent heart catheterization yesterday with Dr. Bowie the found a chronic total occlusion of the small to medium caliber RCA which is known from before. Patent stent in the left circumflex coronary artery. Patent stent in the proximal LAD. There was intermediate lesion involving the mid LAD with a long tubular lesion appears to be in the range of 50-60% unchanged compared to before. Severely elevated left ventricular end-diastolic pressure at 38 mmHg. Recommendations to maximize medical management. Patient did undergo hemodialysis yesterday afternoon and is undergoing hemodialysis today during evaluation.on no medication changes have been made by cardiology. Patient is to continue on amiodarone at the 100 mg daily dose. Patient will be discharged home today in stable condition. Discharge diagnoses: 1. Chest pain in a patient with a prior history of CAD post-PCI of the LAD and LCx. 2. End-stage renal disease on hemodialysis. 3. CAD. 4. Paroxysmal atrial fibrillation. 5. Hypertension and hypertensive cardiovascular disease. 6. Diabetes mellitus type 2. 7. Diabetic neuropathy. 8. Diabetic retinopathy with right eye blindness and left eye legal blindness. Stable. 9. GERD. Discharge plan: Home Impression and plan of care have been directed as dictated by the signing physician. Katelyn Wesley nurse practitioner acting as scribe for signing physician. Patient Condition at Discharge: Good Plan - Discharge Summary Discharge Rx Participant: No New Discharge Prescriptions: New Aspirin 81 mg PO DAILY chew Continue Clopidogrel [Plavix] 75 mg PO DAILY #30 tab Nitroglycerin Sl Tabs [Nitrostat] 0.4 mg SUBLINGUAL Q5M PRN #25 tab PRN Reason: Chest Pain Insulin Glargine,Hum.rec.anlog [Basaglar Kwikpen U-100] 20 unit SQ BID Furosemide [Lasix] 80 mg PO DAILY Allopurinol [Zyloprim] 150 mg PO DAILY Insulin Aspart [NovoLOG Flexpen] See Protocol SQ ACHS Calcium Acetate [PhosLo] 1,334 mg PO TID LORazepam [Ativan] 2 mg PO HS PRN PRN Reason: anxiety Metoprolol Tartrate [Lopressor] 12.5 mg PO BID #60 tab Pantoprazole [Protonix] 40 mg PO AC-BRKFST #30 tablet. Apixaban [Eliquis] 2.5 mg PO BID #60 tablet Amiodarone [Cordarone] 100 mg PO DAILY Atorvastatin [Lipitor] 80 mg PO HS Gabapentin [Neurontin] 400 mg PO HS Acetaminophen Tab [Tylenol] 1,000 mg PO Q6HR PRN PRN Reason: Pain Or Fever > 100.5 Triamcinolone 0.1% Ointment [Kenalog 0.1% Ointment] 1 applic TOPICAL BID PRN PRN Reason: Rash Hydrocortisone Oint [Hydrocortisone 2.5% Oint] 1 applic TOPICAL BID PRN PRN Reason: Rash Fluocinonide [place] 0.05% 1 applic TOPICAL DAILY PRN PRN Reason: Rash hydrOXYzine HCL [Atarax] 100 mg PO TID PRN PRN Reason: itching Metolazone [Zaroxolyn] 5 mg PO DAILY #30 tab Discontinued hydrALAZINE HCL [Apresoline] 100 mg PO TID Discharge Medication List Clopidogrel [Plavix] 75 mg PO DAILY #30 tab 03/05/18 [Rx] Nitroglycerin Sl Tabs [Nitrostat] 0.4 mg SUBLINGUAL Q5M PRN #25 tab 03/05/18 [Rx] Insulin Glargine,Hum.rec.anlog [Basaglar Kwikpen U-100] 20 unit SQ BID 03/24/18 [History] Allopurinol [Zyloprim] 150 mg PO DAILY 08/05/18 [History] Calcium Acetate [PhosLo] 1,334 mg PO TID 08/05/18 [History] Furosemide [Lasix] 80 mg PO DAILY 08/05/18 [History] Insulin Aspart [NovoLOG Flexpen] See Protocol SQ ACHS 08/05/18 [History] LORazepam [Ativan] 2 mg PO HS PRN 08/05/18 [History] Metoprolol Tartrate [Lopressor] 12.5 mg PO BID #60 tab 08/11/18 [Rx] Pantoprazole [Protonix] 40 mg PO AC-BRKFST #30 tablet. 08/11/18 [Rx] Apixaban [Eliquis] 2.5 mg PO BID #60 tablet 10/18/18 [Rx] Acetaminophen Tab [Tylenol] 1,000 mg PO Q6HR PRN 02/01/19 [History] Amiodarone [Cordarone] 100 mg PO DAILY 02/01/19 [History] Atorvastatin [Lipitor] 80 mg PO HS 02/01/19 [History] Fluocinonide Julieta 0.05% 1 applic TOPICAL DAILY PRN 02/01/19 [History] Gabapentin [Neurontin] 400 mg PO HS 02/01/19 [History] Hydrocortisone Oint [Hydrocortisone 2.5% Oint] 1 applic TOPICAL BID PRN 02/01/19 [History] Triamcinolone 0.1% Ointment [Kenalog 0.1% Ointment] 1 applic TOPICAL BID PRN 02/01/19 [History] hydrOXYzine HCL [Atarax] 100 mg PO TID PRN 02/01/19 [History] Aspirin 81 mg PO DAILY chew 02/03/19 [Rx] Metolazone [Zaroxolyn] 5 mg PO DAILY #30 tab 02/03/19 [Rx] Follow up Appointment(s)/Referral(s): Andry Bowie MD [STAFF PHYSICIAN] - 02/14/19 11:00 am Ten Mckeon DO [Primary Care Provider] - 03/07/19 8:00 am (Please keep previous follow up appointment, no earlier appoitments available right now. ) Patient Instructions/Handouts: Chest Pain (DC), Dialysis Diet (DC) Activity/Diet/Wound Care/Special Instructions: CARDIAC CATH 1. Support your puncture site by applying firm, steady pressure whenever you cough, laugh, sneeze or bear down to have a bowel movement (2-day restriction). 2. Watch for any excessive bruising, active bleeding, a firm knot forming under your skin, extreme tenderness and signs of infection (redness, swelling, fever). 3. Shower daily, do not soak puncture in a tub bath, jacuzzi, pool, torres etc. for 1 week. This is to prevent risk of infection. 4. Drink plenty of fluids the day of and day after your procedure to flush contrast dye out of your kidneys. 5. Take all medications as directed. Never stop any new medication without your physicians OK. 6. No driving for 2 days after procedure. 7. 10- pound weight lifting restriction for 1 week. 8. Low sodium/low fat diet. 9. Activity limited until follow up appointment with your licensed physical therapy assistant. In case of any problems, please call [facility] [place] @ [phone]. Discharge Disposition: HOME SELF-CARE
[2019-02-03 12:12] VITALS: BP 149/67; PULSE 54; RESP 20; TEMP 98.6
--- NOTE | 2019-02-03 19:56 | CONS ---
CONSULTATION REASON FOR CONSULTATION: Renal failure. HISTORY OF PRESENT ILLNESS: Patient is a 58-year-old male who was admitted to the hospital with complaints of chest pain prior to starting dialysis on Wednesday. He did have a cardiac catheterization yesterday which was negative. Patient is being dialyzed again today and he will be discharged post dialysis. Patient did not have any chest pains or shortness of breath during his treatment. He had smooth runs on Wednesday and . PAST MEDICAL HISTORY: 1. End-stage renal disease. 2. Coronary artery disease. 3. CKD mineral bone disorder. 4. Anemia of chronic disease. 5. History of atrial fibrillation. 6. Type 2 diabetes. 7. Gastroesophageal reflux disease. 8. Hearing loss. 9. Diabetic retinopathy. 10.Neuropathy. 11.Patient is legally blind. 12.History of gout. 13.History of vertigo. PAST SURGICAL HISTORY: 1. Cardiac catheterization. 2. Coronary stent placement. 3. Previous PD catheter placement and removal. 4. Left eye vitrectomy. 5. AV fistula, left arm. 6. Cystoscopy. SOCIAL HISTORY: Patient is a former smoker. No history of drug abuse or alcohol abuse. MEDICATIONS: Medications at home prior to admission included: 1. Plavix. 2. Nitrostat. 3. Zyloprim. 4. PhosLo. 5. Lasix. 6. Insulin. 7. Ativan. 8. Lopressor. 9. Protonix. 10.Eliquis. 11.Cordarone. 12.Lipitor. 13.Neurontin. 14.Hydralazine. ALLERGIES: ALLERGIES include BUMEX, SPIRONOLACTONE, CODEINE, MORPHINE, which all cause hallucination. Morphine causes confusion. MOST ANTIBIOTICS EXCEPT FOR KEFLEX. PHYSICAL EXAMINATION: Patient is comfortable, awake, not in any acute distress. Blood pressure this morning was 152/74, heart rate 50 per minute. He is afebrile. EXAMINATION OF THE HEART: S1 and S2. EXAMINATION OF LUNGS: Bilateral breath sounds are heard. ABDOMEN: Soft, non-tender. Examination of lower extremities shows edema 2+ bilaterally. TEMP RECRUITER exam grossly intact. LABS: Potassium 3.7 from yesterday. ASSESSMENT: 1. End-stage renal disease, on hemodialysis on a Wednesday, Wednesday, Wednesday schedule. 2. Volume overload. We will plan for another 3 L of ultrafiltration today. Patient has had close to 6 L of fluid removed over the last 3 days. 3. Chest pain, now resolved, status post cardiac catheterization with negative catheterization. 4. Atrial fibrillation, controlled ventricular response. 5. Chronic kidney disease mineral bone disorder. 6. Hypertension, currently controlled. PLAN: Patient can be discharged from nephrology standpoint. He is advised to monitor his fluids and he should have an extra treatment as outpatient next week for fluid overload. MMODL / IJN: [id number] /
[2019-02-04] MEDS ORDERED: ASPIRIN 81 MG PO SCH (09:00)
== END 2019-02-03 12:04 | disposition home or self-care (01) ==
LOC: EC 11:55 → INTOOBSV 13:47 → 3SCARD 13:47
PROVIDERS: ADMIT Internal Medicine; ATTEND Internal Medicine
DX: I20.0 Unstable angina (principal); I25.110 Atherosclerotic heart disease of native coronary artery with unstable angina pectoris; I25.82 Chronic total occlusion of coronary artery; I51.7 Cardiomegaly; I13.2 Hypertensive heart and chronic kidney disease with heart failure and with stage 5 chronic kidney disease, or end stage renal disease; E11.22 Type 2 diabetes mellitus with diabetic chronic kidney disease; N18.6 End stage renal disease; I50.9 Heart failure, unspecified; Z99.2 Dependence on renal dialysis; N25.0 Renal osteodystrophy; Z95.5 Presence of coronary angioplasty implant and graft; Z87.891 Personal history of nicotine dependence; Z79.4 Long term (current) use of insulin; E11.42 Type 2 diabetes mellitus with diabetic polyneuropathy; E11.319 Type 2 diabetes mellitus with unspecified diabetic retinopathy without macular edema; E78.00 Pure hypercholesterolemia, unspecified; E03.9 Hypothyroidism, unspecified; E78.5 Hyperlipidemia, unspecified; I48.0 Paroxysmal atrial fibrillation; Z79.01 Long term (current) use of anticoagulants; I25.2 Old myocardial infarction; K21.9 Gastro-esophageal reflux disease without esophagitis; H54.8 Legal blindness, as defined in USA; D64.9 Anemia, unspecified; F41.9 Anxiety disorder, unspecified; F32.9 Major depressive disorder, single episode, unspecified; Z87.11 Personal history of peptic ulcer disease; R42 Dizziness and giddiness; G25.81 Restless legs syndrome; Z82.49 Family history of ischemic heart disease and other diseases of the circulatory system; Z80.8 Family history of malignant neoplasm of other organs or systems; Z83.3 Family history of diabetes mellitus; Z82.61 Family history of arthritis; Z79.02 Long term (current) use of antithrombotics/antiplatelets; Z79.899 Other long term (current) drug therapy; Z88.1 Allergy status to other antibiotic agents; Z88.5 Allergy status to narcotic agent
CPT/HCPCS: 93005 ×2; 96374; 99285; 36415; 93458; 80061; 80053; 80048; 83735; 84484 ×2; 85025; 85610; 85730; 71046; G0257 ×3; G0378 ×3; C1887 ×2; C1894; C1769 ×2; J2250; J1200; J2001; J3010; Q9967; 90935

== ENCOUNTER 2019-04-11 11:17 | Inpatient (IN) | payer MEDICARE, OTHER ==
[2019-04-11] MEDS ORDERED: MECLIZINE 12.5 MG TAB PO STA (12:57)
[2019-04-11 13:15] LABS: Basophils # (A) 0.1 k/uL (0-0.2); Basophils % (A) 1 %; Eosinophils # (A) 0.2 k/uL (0-0.7); Eosinophils % (A) 2 %; HCT 36.2 % (39.0-53.0); Hypochromasia Moderate; Lymphocytes # (A) 0.6 k/uL (1.0-4.8); Lymphocytes % (A) 6 %; MCH 25.1 pg (25.0-35.0); MCHC 30.5 g/dL (31.0-37.0); MCV 82.2 fL (80.0-100.0); Mean Platelet Volume 7.5; Monocytes # (A) 0.3 k/uL (0-1.0); Monocytes % (A) 3 %; Neutrophils # (A) 8.5 k/uL (1.3-7.7); Neutrophils % (A) 86 %; Platelet Count 240 k/uL (150-450); RDW 13.9 % (11.5-15.5); WBC 9.9 k/uL (3.8-10.6)
[2019-04-11 13:26] LABS: Partial Thromboplastin Time 23.8 sec (22.0-30.0); Prothrombin Time 10.4 sec (9.0-12.0)
[2019-04-11 13:36] LABS: Albumin 3.8 g/dL (3.5-5.0); Calcium 9.3 mg/dL (8.4-10.2); Magnesium 2.1 mg/dL (1.6-2.3); Potassium 4.7 mmol/L (3.5-5.1); Total Bilirubin 0.7 mg/dL (0.2-1.3); Total Protein 6.5 g/dL (6.3-8.2)
--- NOTE | 2019-04-11 14:08 | XR ---
EXAMINATION TYPE: XR chest 2V DATE OF EXAM: 04/11/2019 COMPARISON: 02/01/2019 HISTORY: 58-year-old male with cough and pain TECHNIQUE: AP and lateral views FINDINGS: Heart borderline to mildly enlarged. No consolidation or pleural effusion. Pulmonary vasculature with in normal limits. IMPRESSION: Borderline to mild cardiomegaly without acute cardiopulmonary process.
[2019-04-11] MEDS ORDERED: hydrALAZINE HCL 20 MG/ML 1 ML VIAL IVP STA (14:23)
[2019-04-11] MEDS: SODIUM CHLORIDE 0.9% 1,000 ML IV SCH (15:03)
--- NOTE | 2019-04-11 15:11 | CT ---
EXAMINATION TYPE: CT angio head neck DATE OF EXAM: 04/11/2019 HISTORY: vertigo COMPARISON: CT DLP: 1663.2 mGycm. Automated Exposure Control for Dose Reduction was Utilized. TECHNIQUE: CTA scan of the neck is performed without and with IV Contrast, patient injected with 65 mL of Isovue 370, axial images are obtained, coronal and sagittal reformatted images are reviewed. Th ree-D reconstructed images are created on an independent workstation and reviewed. FINDINGS: Carotid/Vascular Structures: Cerebral vascular calcifications are present. For super aortic branch ve ssels are present. Left vertebral artery is dominant. Innominate, left and right common carotid, left and right subclavian, left and right vertebral arteries are patent. Internal and external carotid ar teries are patent, there is no evident dissection, embolus, or aneurysm. No significant stenosis by N ascet criteria. Internal carotid artery on the left and right loop prior to skull entry. [place] shows patent anterior and posterior circulation. Other: Calcification along the palatine tonsil on the left likely due to chronic infection, there is a right thyroid nodule present IMPRESSION: No significant abnormality is seen to account for patient's symptoms.
[2019-04-11] MEDS ORDERED: INSULIN ASPART (NovoLOG) 100 UNIT/ML VIAL SQ STA (16:10)
[2019-04-11] MEDS ORDERED: NALOXONE 0.4 MG/ML 1 ML VIAL IV PRN (16:12)
--- NOTE | 2019-04-11 16:12 | ED ---
Dizziness HPI - General Chief Complaint: Dizziness Stated Complaint: High BP/dizziness Time Seen by Provider: 04/11/19 12:00 Source: patient, family Mode of arrival: wheelchair Limitations: no limitations - History of Present Illness Initial Comments: The patient is a 58-year-old male with past history of end-stage renal disease on hemodialysis who presents emergency room from Dr. Mckeon office. He states that he's been having nausea and vomiting for the past 5-6 days. States it's the point where he is now dry heaving. Does believe is secondary to his gastroparesis. No sick contacts or recent travel. Denies eating any tainted foods. Does not have any medications at home for nausea. He has had no oral intake. Because of the nausea he missed his dialysis appointment yesterday. He does go Wednesday and Wednesday. Dr. 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 He awoke this morning and had that she will vertigo. States it is difficult for him to get up and ambulate. He had an appointment at Dr. Mckeon office. He was extremely hypertensive in office with the complaint of dizziness. He had increased lower extremity edema. Dr. Mckeon was concerned and therefore sent him into the emergency department for evaluation. He denies any headaches. The patient is legally blind. No neck stiffness. Denies fevers or chills. No cough or hemoptysis. Denies shortness of breath. Denies any current abdominal pain. No diarrhea. Continues to make urine. There are no other alleviating, precipitating or modifying factors - Related Data Home Medications Medication Instructions Recorded Confirmed Insulin Glargine,Hum.rec.anlog 20 unit SQ BID 03/24/18 04/13/19 [Basaglar Kwikpen U-100] Allopurinol [Zyloprim] 150 mg PO DAILY 08/05/18 04/13/19 Calcium Acetate [PhosLo] 1,334 mg PO AC-TID 08/05/18 04/13/19 Insulin Aspart [NovoLOG Flexpen] See Protocol SQ ACHS 08/05/18 04/13/19 LORazepam [Ativan] 2 mg PO HS PRN 08/05/18 04/13/19 Atorvastatin [Lipitor] 80 mg PO HS@2100 02/01/19 04/13/19 hydrOXYzine HCL [Atarax] 100 mg PO TID PRN 02/01/19 04/13/19 Gabapentin [Neurontin] 400 mg PO HS 04/11/19 04/13/19 Amiodarone [Cordarone] 100 mg PO DAILY 04/13/19 04/13/19 Furosemide [Lasix] 80 mg PO BID 04/13/19 04/13/19 Metolazone [Zaroxolyn] 5 mg PO DAILY 04/13/19 04/13/19 Metoprolol Tartrate [Lopressor] 12.5 mg PO BID 04/13/19 04/13/19 Triamcinolone 0.1% Ointment 1 applic TOPICAL BID PRN 04/13/19 04/13/19 [Kenalog] diphenhydrAMINE [Benadryl] 25 mg PO QID PRN 04/13/19 04/13/19 Previous Rx's Medication Instructions Recorded Clopidogrel [Plavix] 75 mg PO DAILY #30 tab 03/05/18 Nitroglycerin Sl Tabs [Nitrostat] 0.4 mg SUBLINGUAL Q5M PRN #25 tab 03/05/18 Pantoprazole [Protonix] 40 mg PO AC-BRKFST #30 tablet. 08/11/18 Apixaban [Eliquis] 2.5 mg PO BID #60 tablet 10/18/18 Allergies Allergy/AdvReac Type Severity Reaction Status Date / Time bumetanide [From Bumex] Allergy Hallucinati Verified 04/11/19 17:53 ons spironolactone Allergy Hallucinati Verified 04/11/19 17:53 ons codeine AdvReac Hallucinati Verified 04/11/19 17:53 ons morphine AdvReac Confusion Verified 04/11/19 17:53 rivaroxaban [From Xarelto] AdvReac Bloody Nose Verified 04/14/19 07:10 All antibiotics except Keflex Allergy Unknown Uncoded 01/15/19 12:05 Childhood Review of Systems ROS Statement: Those systems with pertinent positive or pertinent negative responses have been documented in the HPI. ROS Other: All systems not noted in ROS Statement are negative. Past Medical History Past Medical History: Atrial Fibrillation, Coronary Artery Disease (CAD), Heart Failure, Diabetes Mellitus, Dialysis, Eye Disorder, GERD/Reflux, Hearing Disorder / Deafness, Hyperlipidemia, Hypertension, Myocardial Infarction ([place]), Renal Disease, Syncope Additional Past Medical History / Comment(s): IDDM type II, neuropathy bilateral hands/feet, ESRD with hemodialysis on M// with last time being 10/14/18, chronic anemia, LVH, Afib with RVR, MIs, chronic CHF, R eye blindness, L eye legally blind, RLS, pt unsure if he has gout, vertigo at times, balance issues at times, stomach ulcer at age 17yrs, sinus problems, very [place] R ear. Last Myocardial Infarction Date:: 08/09/18 History of Any Multi-Drug Resistant Organisms: None Reported Past Surgical History: Heart Catheterization, Heart Catheterization With Stent Additional Past Surgical History / Comment(s): TTT, PD catheter placement/since removed, 2016 L arm fistula, fistula gram with balloon for stenosis, L eye vitrectomy, thyroid needle aspiration-negative, L leg cyst, colonoscopy with be nign polypectomy. Past Anesthesia/Blood Transfusion Reactions: Postoperative Nausea & Vomiting (PONV) Date of Last Stent Placement:: 03-03-18 Past Psychological History: Anxiety, Depression Smoking Status: Former smoker Past Alcohol Use History: None Reported Past Drug Use History: None Reported - Past Family History Father Family Medical History: Cancer (Father at age of 72 from brain cancer also had history of CAD.), Coronary Artery Disease (CAD), Hyperlipidemia Additional Family Medical History / Comment(s): ? BRAIN CANCER Mother Family Medical History: Diabetes Mellitus (Mother is 82-year-old with history of diabetes mellitus type 2 and osteoarthritis.), Osteoarthritis (OA) Additional Family Medical History / Comment(s): DJD. MOM IS STILL ALIVE AT AGE 80 Sister(s) Family Medical History: Diabetes Mellitus (Patient has one sister with diabetes mellitus type 2, SLE, MS.) Brother(s) Family Medical History: Diabetes Mellitus (Patient has one brother who is diabetic and the other one is a pediatric psychiatrist.) Additional Family Medical History / Comment(s): Patient has 4 kids no major medical problems. Daughter(s) Family Medical History: No Reported History (Patient has 2 daughters no major medical problems.) Son(s) Family Medical History: No Reported History (Patient has 2 sons no major medical problems.) General Exam Limitations: no limitations General appearance: alert, in no apparent distress Head exam: Present: atraumatic, normocephalic, normal inspection Eye exam: Present: normal appearance. Absent: scleral icterus, conjunctival injection, nystagmus, periorbital swelling ENT exam: Present: normal exam, mucous membranes moist Neck exam: Present: normal inspection. Absent: tenderness, meningismus, lymphadenopathy Respiratory exam: Present: normal lung sounds bilaterally. Absent: respiratory distress, wheezes, rales, rhonchi, stridor Cardiovascular Exam: Present: regular rate, normal rhythm, normal heart sounds. Absent: systolic murmur, diastolic murmur, rubs, gallop, clicks GI/Abdominal exam: Present: soft, normal bowel sounds. Absent: distended, tenderness, guarding, rebound, rigid Extremities exam: Present: normal inspection, full ROM, normal capillary refill, other (fistula pulsitile LUE). Absent: tenderness, pedal edema, joint swelling, calf tenderness Back exam: Present: normal inspection Neurological exam: Present: alert, oriented X3, CN II-XII intact Psychiatric exam: Present: normal affect, normal mood Skin exam: Present: warm, dry, intact, normal color. Absent: rash Course Vital Signs 04/11/19 04/11/19 04/11/19 12:00 13:00 13:30 Temperature 97.9 F Pulse Rate 63 64 65 Pulse Rate [ Right Radial] Respiratory 20 17 18 Rate Blood Pressure 205/103 200/94 208/95 Blood Pressure [Right Arm] O2 Sat by Pulse 97 99 100 Oximetry 04/11/19 04/11/19 04/11/19 13:56 14:00 14:30 Temperature Pulse Rate 67 70 Pulse Rate [ Right Radial] Respiratory 18 17 Rate Blood Pressure 221/104 221/104 221/104 Blood Pressure [Right Arm] O2 Sat by Pulse 99 97 Oximetry 04/11/19 04/11/19 04/11/19 15:00 15:30 18:18 Temperature Pulse Rate 73 76 79 Pulse Rate [ Right Radial] Respiratory 16 18 18 Rate Blood Pressure 213/86 175/76 202/102 Blood Pressure [Right Arm] O2 Sat by Pulse 98 95 Oximetry 04/11/19 04/11/19 04/12/19 19:33 20:00 00:00 Temperature 97.6 F 97.7 F Pulse Rate 75 Pulse Rate [ 73 65 Right Radial] Respiratory 16 18 18 Rate Blood Pressure 187/89 Blood Pressure 160/78 130/64 [Right Arm] O2 Sat by Pulse 95 96 95 Oximetry 04/12/19 04/12/19 04/12/19 03:52 04:00 08:00 Temperature Pulse Rate 64 Pulse Rate [ 59 L 62 Right Radial] Respiratory 18 18 18 Rate Blood Pressure 160/75 Blood Pressure 147/76 [Right Arm] O2 Sat by Pulse 92 L 96 Oximetry 04/12/19 04/12/19 04/12/19 09:00 10:30 11:00 Temperature Pulse Rate 64 66 66 Pulse Rate [ Right Radial] Respiratory 18 18 15 Rate Blood Pressure 185/82 167/79 Blood Pressure [Right Arm] O2 Sat by Pulse 96 Oximetry 04/12/19 04/12/19 04/12/19 11:57 12:00 13:00 Temperature 97.4 F L Pulse Rate 72 61 Pulse Rate [ 67 Right Radial] Respiratory 16 16 14 Rate Blood Pressure 173/79 173/83 Blood Pressure 173/79 [Right Arm] O2 Sat by Pulse Oximetry 04/12/19 04/12/19 04/12/19 14:00 15:00 18:15 Temperature Pulse Rate 61 60 63 Pulse Rate [ Right Radial] Respiratory 15 17 18 Rate Blood Pressure 150/81 147/73 159/77 Blood Pressure [Right Arm] O2 Sat by Pulse 97 Oximetry EKG Findings - EKG Comments: EKG Findings:: EKG demonstrates normal sinus rhythm with ventricular rate of 66. IA interval 186. QRS 84. QTC of 480. No acute ST segment elevations or depressions concerning for ischemic change. No signs of heart block Medical Decision Making - Medical Decision Making Upon arrival the patient was placed into room 10. A thorough history and ph ysical exam was performed. Peripheral IV was established. The patient was given 25 mg of meclizine for his dizziness. I respiratory studies were conducted. Sodium is 128, chloride 90, creatinine 5.02, glucose 636, BNP 11,400. Chest x-ray demonstrates borderline to mild cardiomegaly. CT angiogr aphy of the patient's brain demonstrates no significant abnormality. The patient was given 20 of hydralazine for his high blood pressure with improvement to his systolic of 168. Patient is reevaluated and reports that his dizziness is completely resolved. I called and discussed the case with Dr. Edmondson who reports that he will set up the patient's dialysis. I did place the patient on an insulin drip with gentle fluids. The patient was admitted to Dr. Arita who accepted admission. The patient is currently awaiting a bed on the floor. - Lab Data Result diagrams: 04/13/19 10:09 04/13/19 10:09 Lab Results 04/11/19 04/11/19 04/11/19 Range/Units 12:45 12:45 12:45 WBC 9.9 (3.8-10.6) k/uL RBC 4.40 (4.30-5.90) m/uL Hgb 11.0 L (13.0-17.5) gm/dL Hct 36.2 L (39.0-53.0) % MCV 82.2 (80.0-100.0) fL MCH 25.1 (25.0-35.0) pg MCHC 30.5 L (31.0-37.0) g/dL RDW 13.9 (11.5-15.5) % Plt Count 240 (150-450) k/uL Neutrophils % 86 % Lymphocytes % 6 % Monocytes % 3 % Eosinophils % 2 % Basophils % 1 % Neutrophils # 8.5 H (1.3-7.7) k/uL Lymphocytes # 0.6 L (1.0-4.8) k/uL Monocytes # 0.3 (0-1.0) k/uL Eosinophils # 0.2 (0-0.7) k/uL Basophils # 0.1 (0-0.2) k/uL Hypochromasia Moderate PT (9.0-12.0) sec INR (<1.2) APTT (22.0-30.0) sec Sodium 128 L (137-145) mmol/L Potassium 4.7 (3.5-5.1) mmol/L Chloride 90 L (98-107) mmol/L Carbon Dioxide 23 (22-30) mmol/L Anion Gap 15 mmol/L BUN 59 H (9-20) mg/dL Creatinine 5.02 H (0.66-1.25) mg/dL Est GFR (CKD-EPI)AfAm 14 (>60 ml/min/1.73 sqM) Est GFR (CKD-EPI)NonAf 12 (>60 ml/min/1.73 sqM) Glucose 636 H* (74-99) mg/dL Plasma Lactic Acid Ramirez 1.1 (0.7-2.0) mmol/L Calcium 9.3 (8.4-10.2) mg/dL Magnesium 2.1 (1.6-2.3) mg/dL Total Bilirubin 0.7 (0.2-1.3) mg/dL AST 18 (17-59) U/L ALT 26 (4-49) U/L Alkaline Phosphatase 277 H (38-126) U/L NT-Pro-B Natriuret Pep pg/mL Total Protein 6.5 (6.3-8.2) g/dL Albumin 3.8 (3.5-5.0) g/dL Lipase 173 (23-300) U/L 04/11/19 04/11/19 Range/Units 12:45 12:45 WBC (3.8-10.6) k/uL RBC (4.30-5.90) m/uL Hgb (13.0-17.5) gm/dL Hct (39.0-53.0) % MCV (80.0-100.0) fL MCH (25.0-35.0) pg MCHC (31.0-37.0) g/dL RDW (11.5-15.5) % Plt Count (150-450) k/uL Neutrophils % % Lymphocytes % % Monocytes % % Eosinophils % % Basophils % % Neutrophils # (1.3-7.7) k/uL Lymphocytes # (1.0-4.8) k/uL Monocytes # (0-1.0) k/uL Eosinophils # (0-0.7) k/uL Basophils # (0-0.2) k/uL Hypochromasia PT 10.4 (9.0-12.0) sec INR 1.0 (<1.2) APTT 23.8 (22.0-30.0) sec Sodium (137-145) mmol/L Potassium (3.5-5.1) mmol/L Chloride (98-107) mmol/L Carbon Dioxide (22-30) mmol/L Anion Gap mmol/L BUN (9-20) mg/dL Creatinine (0.66-1.25) mg/dL Est GFR (CKD-EPI)AfAm (>60 ml/min/1.73 sqM) Est GFR (CKD-EPI)NonAf (>60 ml/min/1.73 sqM) Glucose (74-99) mg/dL Plasma Lactic Acid Ramirez (0.7-2.0) mmol/L Calcium (8.4-10.2) mg/dL Magnesium (1.6-2.3) mg/dL Total Bilirubin (0.2-1.3) mg/dL AST (17-59) U/L ALT (4-49) U/L Alkaline Phosphatase (38-126) U/L NT-Pro-B Natriuret Pep 32284 pg/mL Total Protein (6.3-8.2) g/dL Albumin (3.5-5.0) g/dL Lipase (23-300) U/L Disposition Clinical Impression: Dialysis patient, Vertigo, Accelerated hypertension, Hyperglycemia, Vomiting Disposition: ADMITTED IP TO THIS [facility] Condition: Good Is patient prescribed a controlled substance at d/c from ED?: No Decision to Admit Reason: Admit from EC Decision Date: 04/11/19 Decision Time: 16:12
[2019-04-11] MEDS ORDERED: LORazepam 1 MG TAB PO PRN (16:20)
[2019-04-11 16:33] LABS: Glucose,Whole Blood 561 mg/dL (75-99)
[2019-04-11 18:18] LABS: Glucose,Whole Blood 576 mg/dL (75-99)
[2019-04-11] MEDS: INSULIN REGULAR 100 UNIT in SODIUM CHLORIDE 0.9% 100 ML IV SCH ×2 (18:25→23:31)
[2019-04-11 19:23] LABS: Glucose,Whole Blood 470 mg/dL (75-99)
[2019-04-11 20:33] LABS: Glucose,Whole Blood 370 mg/dL (75-99)
[2019-04-11] MEDS: APIXABAN 2.5 MG TABLET PO SCH (20:59)
[2019-04-11] MEDS ORDERED: GABAPENTIN 400 MG CAP PO SCH (21:00)
[2019-04-11 21:04] LABS: Glucose,Whole Blood 302 mg/dL (75-99)
[2019-04-11 21:41] LABS: Glucose,Whole Blood 212 mg/dL (75-99)
[2019-04-11] MEDS: METOPROLOL TARTRATE 12.5 MG TAB PO SCH (23:41)
[2019-04-11 23:50] LABS: Glucose,Whole Blood 90 mg/dL (75-99)
[2019-04-12 00:35] LABS: Mucus,Urine Rare /hpf; RBC,Urine 7 /hpf (0-5); WBC,Urine 1 /hpf (0-5)
[2019-04-12 00:37] LABS: Appearance,Urine Clear (Clear); Bilirubin,Urine Negative (Negative); Blood,Urine Small (Negative); Color,Urine Light Yellow; Glucose,Urine (UA) 4+ (Negative); Ketones,Urine Negative (Negative); Leukocyte Esterase,Urine Negative (Negative); Nitrite,Urine Negative (Negative); Protein,Urine 3+ (Negative); Specific Gravity,Urine 1.005 (1.001-1.035); Urobilinogen,Urine <2.0 mg/dL (<2.0)
[2019-04-12 00:51] LABS: Glucose,Whole Blood 130 mg/dL (75-99)
[2019-04-12 01:58] LABS: Glucose,Whole Blood 133 mg/dL (75-99)
[2019-04-12 02:46] LABS: Glucose,Whole Blood 162 mg/dL (75-99)
[2019-04-12 04:47] LABS: Glucose,Whole Blood 164 mg/dL (75-99)
[2019-04-12] MEDS: SODIUM CHLORIDE 0.9% 1,000 ML IV SCH (04:51)
[2019-04-12 06:27] LABS: Glucose,Whole Blood 130 mg/dL (75-99)
[2019-04-12] MEDS: PANTOPRAZOLE 40 MG TABLET PO SCH ×2 (06:30→10:36)
[2019-04-12 08:31] LABS: Glucose,Whole Blood 123 mg/dL (75-99)
[2019-04-12] MEDS ORDERED: ASPIRIN 81 MG PO SCH (09:00)
[2019-04-12] MEDS ORDERED: AMIODARONE 100 MG TAB PO SCH (09:00)
[2019-04-12 09:42] LABS: Glucose,Whole Blood 114 mg/dL (75-99)
[2019-04-12] MEDS ORDERED: hydrOXYzine HCL 25 MG TAB PO PRN (10:20)
[2019-04-12] MEDS ORDERED: NITROGLYCERIN SL TABS 0.4 MG TAB SUBLINGUAL PRN (10:20)
[2019-04-12] MEDS ORDERED: ACETAMINOPHEN TAB 325 MG TAB PO PRN (10:25)
[2019-04-12] MEDS: CLOPIDOGREL 75 MG TAB PO SCH (10:35)
[2019-04-12] MEDS: APIXABAN 2.5 MG TABLET PO SCH ×2 (10:36→20:29)
[2019-04-12] MEDS: METOPROLOL TARTRATE 12.5 MG TAB PO SCH ×2 (10:36→20:29)
[2019-04-12 13:00] LABS: Glucose,Whole Blood 229 mg/dL (75-99)
[2019-04-12] MEDS: INSULIN DETEMIR (LEVEMIR) 100 UNIT/ML SYR SQ SCH (13:08)
[2019-04-12] MEDS: INSULIN ASPART (NovoLOG) 100 UNIT/ML VIAL SQ SCH ×3 (13:09→21:19)
[2019-04-12] MEDS: CALCIUM ACETATE 667 MG TAB PO SCH ×2 (13:11→18:13)
--- NOTE | 2019-04-12 15:10 | P.HPIM ---
History of Present Illness H&P Date: 04/12/19 Chief Complaint: Nausea, vomiting This is a 58-year-old male one of Dr. 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 Patient gives history of having nausea and vomiting and ended up missing dialysis on Wednesday. He did have dialysis on Wednesday is now 5 days without. He complains of having dizziness and a fall at home. He denies any diarrhea. No fever or chills. Patient came into the [facility] emergency center for evaluation. His initial blood pressure was 205/103, afebrile, heart rate 60s, pulse ox 97% on room air. Hemoglobin 11, sodium 128, chloride 90, potassium 4.7, BUN 59 creatinine 5.02, blood sugar 636. Lactic acid 1.1, alkaline phosphatase 277. P roBNP 11,400 Chest x-ray borderline mild cardiomegaly. CT angios of the brain showed no abnormality. Patient was given hydralazine IV and dizziness had resolved. Patient initially started on insulin drip. Patient has been seen in the emergency center waiting for cardiac stepdown unit bed. He is receiving dialysis at the time of evaluation. Insulin drip will be transitioned to his home insulin regime. Blood sugar is now 114. Nausea and vomiting have resolved. Review of Systems Constitutional: Reports anorexia, Reports fatigue, Reports malaise, Reports poor appetite, Denies chills, Denies fever, Denies lethargy Eyes: denies blurred vision (Patient is legally blind), denies pain Cardiovascular: Denies chest pain, Denies decreased exercise tolerance, Denies dyspnea on exertion, Denies edema, Denies leg edema, Denies lightheadedness, Denies shortness of breath, Denies syncope Respiratory: Denies cough, Denies cough with sputum, Denies dyspnea, Denies excessive sputum, Denies hemoptysis, Denies home oxygen, Denies respiratory infections, Denies wheezing Gastrointestinal: Reports loss of appetite, Reports nausea, Reports vomiting, Denies abdominal pain, Denies diarrhea Genitourinary: Denies dysuria Musculoskeletal: Denies frequent falls, Denies gait dysfunction, Denies muscle weakness, Denies myalgias Integumentary: Denies pruritus, Denies rash, Denies wounds Neurological: Denies change in mentation, Denies change in speech, Denies nu mbness, Denies weakness Psychiatric: Denies anxiety, Denies depression Endocrine: Reports high blood sugars, Denies fatigue, Denies weight change Past Medical History Past Medical History: Atrial Fibrillation, Coronary Artery Disease (CAD), Heart Failure, Diabetes Mellitus, Dialysis, Eye Disorder, GERD/Reflux, Hearing Disorder / Deafness, Hyperlipidemia, Hypertension, Myocardial Infarction ([place]), Renal Disease, Syncope Additional Past Medical History / Comment(s): IDDM type II, neuropathy bilateral hands/feet, ESRD with hemodialysis on // with last time being 10/14/18, chronic anemia, LVH, Afib with RVR, MIs, chronic CHF, R eye blindness, L eye legally blind, RLS, pt unsure if he has gout, vertigo at times, balance issues at times, stomach ulcer at age 17yrs, sinus problems, very [place] R ear. Last Myocardial Infarction Date:: 08/09/18 History of Any Multi-Drug Resistant Organisms: None Reported Past Surgical History: Heart Catheterization, Heart Catheterization With Stent Additional Past Surgical History / Comment(s): TTT, PD catheter placement/since removed, 2016 L arm fistula, fistula gram with balloon for stenosis, L eye vitrectomy, thyroid needle aspiration-negative, L leg cyst, colonoscopy with benign polypectomy. Past Anesthesia/Blood Transfusion Reactions: Postoperative Nausea & Vomiting (PONV) Date of Last Stent Placement:: 03-03-18 Past Psychological History: Anxiety, Depression Additional Psychological History / Comment(s): Pt resides with his spouse, their son and pt's [id number]. He is legally blind L eye and blind in R eye. He is very [place] in R ear. He has a cane and walker which he uses prn. His spouse and son drive. Pt uses glasses and a magnifier to read. He has depression which he states is constantly present but not increased. He denies thoughts/plans of suicide. Smoking Status: Former smoker Past Alcohol Use History: None Reported Additional Past Alcohol Use History / Comment(s): Pt started smoking in 1972 and quit in 1995. Past Drug Use History: None Reported - Past Family History Father Family Medical History: Cancer, Coronary Artery Disease (CAD), Hyperlipidemia Additional Family Medical History / Comment(s): Father at age of 72 from brain cancer also had history of CAD. Mother Family Medical History: Diabetes Mellitus, Osteoarthritis (OA) Additional Family Medical History / Comment(s): Mother is 82-year-old with history of diabetes mellitus type 2 and osteoarthritis. Sister(s) Family Medical History: Diabetes Mellitus Additional Family Medical History / Comment(s): Patient has one sister with diabetes mellitus type 2, SLE, MS. Brother(s) Family Medical History: Diabetes Mellitus Additional Family Medical History / Comment(s): Patient has one brother who is diabetic and the other one is a pediatric psychiatrist. Daughter(s) Family Medical History: No Reported History Additional Family Medical History / Comment(s): Patient has 2 daughters no major medical problems. Son(s) Family Medical History: No Reported History Additional Family Medical History / Comment(s): Patient has 2 sons no major medical problems. Medications and Allergies Home Medications Medication Instructions Recorded Confirmed Type Clopidogrel [Plavix] 75 mg PO DAILY #30 tab 03/05/18 04/11/19 Rx Nitroglycerin Sl Tabs [Nitrostat] 0.4 mg SUBLINGUAL Q5M PRN #25 tab 03/05/18 04/11/19 Rx Insulin Glargine,Hum.rec.anlog 30 unit SQ DAILY 03/24/18 04/11/19 History [Basaglar Kwikpen U-100] Allopurinol [Zyloprim] 150 mg PO DAILY 08/05/18 04/11/19 History Calcium Acetate [PhosLo] 667 mg PO TID@0700,1200,1700 08/05/18 04/11/19 History Insulin Aspart [NovoLOG Flexpen] See Protocol SQ ACHS 08/05/18 04/11/19 History LORazepam [Ativan] 2 mg PO HS PRN 08/05/18 04/11/19 History Metoprolol Tartrate [Lopressor] 12.5 mg PO BID #60 tab 08/11/18 04/11/19 Rx Pantoprazole [Protonix] 40 mg PO AC-BRKFST #30 tablet. 08/11/18 04/11/19 Rx Apixaban [Eliquis] 2.5 mg PO BID #60 tablet 10/18/18 04/11/19 Rx Atorvastatin [Lipitor] 80 mg PO HS@2100 02/01/19 04/11/19 History hydrOXYzine HCL [Atarax] 100 mg PO TID PRN 02/01/19 04/11/19 History Gabapentin [Neurontin] 100 mg PO HS 04/11/19 04/11/19 History Rivaroxaban [Xarelto] 15 mg PO W/SUPPER 04/11/19 04/11/19 History Allergies Allergy/AdvReac Type Severity Reaction Status Date / Time bumetanide [From Bumex] Allergy Hallucinati Verified 04/11/19 17:53 ons spironolactone Allergy Hallucinati Verified 04/11/19 17:53 ons codeine AdvReac Hallucinati Verified 04/11/19 17:53 ons morphine AdvReac Confusion Verified 04/11/19 17:53 All antibiotics except Keflex Allergy Unknown Uncoded 01/15/19 12:05 Childhood Physical Exam Vitals: Vital Signs Temp Pulse Pulse Resp BP BP Pulse Ox 04/12/19 09:00 64 18 96 04/12/19 08:00 64 18 160/75 96 04/12/19 04:00 62 18 147/76 92 L 04/12/19 03:52 59 L 18 04/12/19 00:00 97.7 F 65 18 130/64 95 04/11/19 20:00 97.6 F 73 18 160/78 96 04/11/19 19:33 75 16 187/89 95 04/11/19 18:18 79 18 202/102 95 04/11/19 15:30 76 18 175/76 04/11/19 15:00 73 16 213/86 98 04/11/19 14:30 70 17 221/104 97 04/11/19 14:00 221/104 04/11/19 13:56 67 18 221/104 99 04/11/19 13:30 65 18 208/95 100 04/11/19 13:00 64 17 200/94 99 04/11/19 12:00 97.9 F 63 20 205/103 97 Intake and Output 04/11/19 04/12/19 04/12/19 22:59 06:59 14:59 Intake Total 86.167 18.417 1.067 Output Total 600 300 Balance -513.833 -281.583 1.067 Intake: Intake, IV Titration 86.167 18.417 1.067 Amount Insulin Regular 100 unit 86.167 18.417 1.067 In Sodium Chloride 0.9% 100 ml @ Titrate IV .Q0M [facility] Rx#:[id number] Output: Urine 600 300 Other: Voiding Method Urinal Urinal # Bowel Movements 1 Weight 99.337 kg General appearance: average body habitus, no acute distress, patient is on the ER stretcher. - EENT Eyes: anicteric sclerae, EOMI, PERRLA, ptosis, no scleral icterus ENT: hearing grossly normal, NA/AT, normal oropharynx, no thrush Ears: bilateral: normal - Neck Neck: no lymphadenopathy, normal ROM, no rigidity, no stridor, no thyromegaly Carotids: bilateral: upstroke normal Thyroid: bilateral: normal size - Respiratory Respiratory: bilateral: diminished, negative: dullness, rales, rhonchi, wheezing, prolonged expiration - Cardiovascular Rhythm: regular Heart sounds: normal: S1, S2 Abnormal Heart Sounds: systolic murmur - Gastrointestinal General gastrointestinal: normal bowel sounds, soft, no splenomegaly, no tenderness, umbilical hernia, no ventral hernia - Integumentary Integumentary: normal turgor, rash - Musculoskeletal Musculoskeletal: gait normal, strength equal bilaterally - Psychiatric Psychiatric: A&O x's 3, appropriate affect, intact judgment & insight Results CBC & Chem 7: 04/11/19 12:45 04/11/19 12:45 Labs: Abnormal Lab Results - Last 24 Hours (Table) 04/11/19 04/11/19 04/11/19 Range/Units 12:45 12:45 16:30 Hgb 11.0 L (13.0-17.5) gm/dL Hct 36.2 L (39.0-53.0) % MCHC 30.5 L (31.0-37.0) g/dL Neutrophils # 8.5 H (1.3-7.7) k/uL Lymphocytes # 0.6 L (1.0-4.8) k/uL Sodium 128 L (137-145) mmol/L Chloride 90 L (98-107) mmol/L BUN 59 H (9-20) mg/dL Creatinine 5.02 H (0.66-1.25) mg/dL Glucose 636 H* (74-99) mg/dL POC Glucose (mg/dL) 561 H (75-99) mg/dL Alkaline Phosphatase 277 H (38-126) U/L Urine Protein (Negative) Urine Glucose (UA) (Negative) Urine RBC (0-5) /hpf Urine Mucus (None) /hpf 04/11/19 04/11/19 04/11/19 Range/Units 18:16 19:21 20:32 Hgb (13.0-17.5) gm/dL Hct (39.0-53.0) % MCHC (31.0-37.0) g/dL Neutrophils # (1.3-7.7) k/uL Lymphocytes # (1.0-4.8) k/uL Sodium (137-145) mmol/L Chloride (98-107) mmol/L BUN (9-20) mg/dL Creatinine (0.66-1.25) mg/dL Glucose (74-99) mg/dL POC Glucose (mg/dL) 576 H 470 H 370 H (75-99) mg/dL Alkaline Phosphatase (38-126) U/L Urine Protein (Negative) Urine Glucose (UA) (Negative) Urine RBC (0-5) /hpf Urine Mucus (None) /hpf 04/11/19 04/11/19 04/11/19 Range/Units 21:02 21:39 23:50 Hgb (13.0-17.5) gm/dL Hct (39.0-53.0) % MCHC (31.0-37.0) g/dL Neutrophils # (1.3-7.7) k/uL Lymphocytes # (1.0-4.8) k/uL Sodium (137-145) mmol/L Chloride (98-107) mmol/L BUN (9-20) mg/dL Creatinine (0.66-1.25) mg/dL Glucose (74-99) mg/dL POC Glucose (mg/dL) 302 H 212 H (75-99) mg/dL Alkaline Phosphatase (38-126) U/L Urine Protein 3+ H (Negative) Urine Glucose (UA) 4+ H (Negative) Urine RBC 7 H (0-5) /hpf Urine Mucus Rare H (None) /hpf 04/12/19 04/12/19 04/12/19 Range/Units 00:50 01:37 02:44 Hgb (13.0-17.5) gm/dL Hct (39.0-53.0) % MCHC (31.0-37.0) g/dL Neutrophils # (1.3-7.7) k/uL Lymphocytes # (1.0-4.8) k/uL Sodium (137-145) mmol/L Chloride (98-107) mmol/L BUN (9-20) mg/dL Creatinine (0.66-1.25) mg/dL Glucose (74-99) mg/dL POC Glucose (mg/dL) 130 H 133 H 162 H (75-99) mg/dL Alkaline Phosphatase (38-126) U/L Urine Protein (Negative) Urine Glucose (UA) (Negative) Urine RBC (0-5) /hpf Urine Mucus (None) /hpf 04/12/19 04/12/19 04/12/19 Range/Units 04:45 06:26 08:29 Hgb (13.0-17.5) gm/dL Hct (39.0-53.0) % MCHC (31.0-37.0) g/dL Neutrophils # (1.3-7.7) k/uL Lymphocytes # (1.0-4.8) k/uL Sodium (137-145) mmol/L Chloride (98-107) mmol/L BUN (9-20) mg/dL Creatinine (0.66-1.25) mg/dL Glucose (74-99) mg/dL POC Glucose (mg/dL) 164 H 130 H 123 H (75-99) mg/dL Alkaline Phosphatase (38-126) U/L Urine Protein (Negative) Urine Glucose (UA) (Negative) Urine RBC (0-5) /hpf Urine Mucus (None) /hpf 04/12/19 Range/Units 09:39 Hgb (13.0-17.5) gm/dL Hct (39.0-53.0) % MCHC (31.0-37.0) g/dL Neutrophils # (1.3-7.7) k/uL Lymphocytes # (1.0-4.8) k/uL Sodium (137-145) mmol/L Chloride (98-107) mmol/L BUN (9-20) mg/dL Creatinine (0.66-1.25) mg/dL Glucose (74-99) mg/dL POC Glucose (mg/dL) 114 H (75-99) mg/dL Alkaline Phosphatase (38-126) U/L Urine Protein (Negative) Urine Glucose (UA) (Negative) Urine RBC (0-5) /hpf Urine Mucus (None) /hpf Thrombosis Risk Factor Assmnt - DVT/VTE Prophylaxis DVT/VTE Prophylaxis: Pharmacologic Prophylaxis ordered - Choose All That Apply Each Factor Represents 1 point: Age 41-60 years Thrombosis Risk Factor Assessment Total Risk Factor Score: 1 Thrombosis Risk Factor Assessment Level: Low Risk Assessment and Plan Plan: 1. Dizziness most likely due to hypertensive emergency. Patient is status post IV hydralazine. Continue Lopressor 12.5 mg twice daily. 2. End-stage renal disease on hemodialysis. Consult nephrology for dialysis ordered. Patient did not have his dialysis on Wednesday 3. CAD. Continue patient on metoprolol 12.5 mg orally twice every day, Lipitor 80 mg orally once every day, Plavix 75 mg daily. 4. Paroxysmal atrial fibrillation. Continue Lopressor 12.5 mg twice daily, E liquis 2.5 mg orally twice every day. 5. Hypertension and hypertensive cardiovascular disease. Continue patient on hydralazine 100 mg orally 3 times every day, metoprolol 12.5 mg orally twice every day. 6. Diabetes mellitus type 2. Continue patient on Lantus 30 units daily, along with a sliding scale insulin, continue Accu-Chek before each meal and at bedtime. 7. Diabetic neuropathy. Continue patient on Neurontin 8. Diabetic retinopathy with right eye blindness and left eye legal blindness. Stable. 9. GERD. Continue patient on Protonix 40 mg orally once every day. 10. DVT prophylaxis. Continue with Eliquis. 11. GI process. Continue patient on PPI. 12. Patient's full code. Patient admitted to the hospital for a minimum of 2 nights day. Discharge plan: Home tomorrow Impression and plan of care have been directed as dictated by the signing physician. Katelyn Wesley nurse practitioner acting as scribe for signing physician.
[2019-04-12 18:04] LABS: Glucose,Whole Blood 221 mg/dL (75-99)
[2019-04-12] MEDS: RIVAROXABAN 15 MG TAB PO SCH ×2 (18:14)
--- NOTE | 2019-04-12 20:00 | CONS ---
CONSULTATION REASON FOR CONSULT: End-stage renal disease. HISTORY OF PRESENT ILLNESS: Patient is a 58-year-old male with end-stage renal disease who was admitted to the hospital with complaints of nausea and vomiting for 5-6 days. Patient had missed his treatment as outpatient. He was dialyzed this morning and he states he is feeling better. No fever, chills, abdominal pain or diarrhea. Patient had CT angiogram of the head and neck which showed no major abnormalities. PAST MEDICAL HISTORY: End-stage renal disease, CKD mineral bone disorder, atrial fibrillation, coronary artery disease, history of coronary stent placements, type 2 diabetes, retinopathy, history of [place], hearing disorder, hyperlipidemia, neuropathy, LVH. PAST SURGICAL HISTORY: Cardiac catheterization, coronary stent placement, PD catheter placement and removal, left arm AV fistula, left eye vitrectomy, thyroid needle aspiration, colonoscopy, polypectomy, surgery on a left leg cyst. SOCIAL HISTORY: Negative for current smoking. Patient is a former smoker. No history of drug abuse or alcohol abuse. MEDICATIONS: Medications prior to admission included insulin, zyloprim, PhosLo, Lasix, Ativan, Tylenol, Cordarone, Lipitor, Neurontin, Atarax, Plavix, Lopressor, Protonix, Eliquis, Zaroxolyn, aspirin. ALLERGIES: Include SPIRONOLACTONE, BUMEX, CODEINE, MORPHINE, ALL ANTIBIOTICS EXCEPT KEFLEX. REVIEW OF SYSTEMS: As per HPI. Other systems negative. PHYSICAL EXAMINATION: On examination, patient is comfortable, awake, alert, oriented x3, not in any acute distress. Blood pressure is 167/79, heart rate 66 per minute. He is afebrile. EXAMINATION OF THE HEART: S1 and S2. EXAMINATION OF LUNGS: Bilateral breath sounds are heard. ABDOMEN: Soft, non-tender. Examination of lower extremities shows edema 2+ bilaterally. JACK SPOOLER TENDER exam is grossly intact. LABS: Sodium 128, potassium 4.7, BUN 59, creatinine 5.0. Blood sugar was 636. ASSESSMENT: 1. End-stage renal disease, on hemodialysis, status post dialysis this morning. Patient has a left arm AV fistula. 2. Volume overload, status post dialysis today. We will plan for next treatment on Wednesday. Patient is advised regarding fluid restriction. 3. Hypervolemic hyponatremia. 4. Severe hyperglycemia on initial admission. 5. Nausea, currently improved. 6. Chronic kidney disease mineral bone disorder. PLAN: Hemodialysis today. Next treatment on Wednesday. Thank you for this consultation. We will continue to follow the patient with you during his hospitalization. MMODL / IJN: [id number] /
[2019-04-12 20:42] LABS: Glucose,Whole Blood 221 mg/dL (75-99)
[2019-04-12] MEDS ORDERED: ATORVASTATIN 80 MG TAB PO SCH (21:00)
[2019-04-12] MEDS ORDERED: GABAPENTIN 100 MG CAP PO SCH (21:00)
[2019-04-13 05:46] LABS: Glucose,Whole Blood 198 mg/dL (75-99)
[2019-04-13] MEDS: CALCIUM ACETATE 667 MG TAB PO SCH ×2 (06:58→11:52)
[2019-04-13] MEDS: INSULIN ASPART (NovoLOG) 100 UNIT/ML VIAL SQ SCH ×2 (06:58→11:52)
[2019-04-13] MEDS: INSULIN DETEMIR (LEVEMIR) 100 UNIT/ML SYR SQ SCH (08:15)
[2019-04-13] MEDS: CLOPIDOGREL 75 MG TAB PO SCH (08:15)
[2019-04-13 08:16] LABS: Glucose,Whole Blood 168 mg/dL (75-99)
[2019-04-13] MEDS: METOPROLOL TARTRATE 12.5 MG TAB PO SCH (08:16)
[2019-04-13] MEDS: APIXABAN 2.5 MG TABLET PO SCH (08:16)
[2019-04-13 08:43] VITALS: PULSE 59; RESP 18; TEMP 97.6
[2019-04-13] MEDS ORDERED: ALLOPURINOL 100 MG TAB PO SCH (09:00)
[2019-04-13] MEDS ORDERED: AMIODARONE 100 MG TAB PO SCH (09:00)
[2019-04-13 10:41] LABS: HCT 34.9 % (39.0-53.0); HGB 10.9 gm/dL (13.0-17.5); Hypochromasia Slight; MCHC 31.1 g/dL (31.0-37.0); MCV 80.5 fL (80.0-100.0); Platelet Count 230 k/uL (150-450); RBC 4.34 m/uL (4.30-5.90); RDW 14.2 % (11.5-15.5); WBC 7.9 k/uL (3.8-10.6)
[2019-04-13 11:21] LABS: Calcium 8.9 mg/dL (8.4-10.2); Potassium 4.2 mmol/L (3.5-5.1)
[2019-04-13 11:23] LABS: Glucose,Whole Blood 170 mg/dL (75-99)
[2019-04-13 12:18] VITALS: BP 151/70
--- NOTE | 2019-04-13 16:07 | P.DS ---
Providers Date of admission: 04/11/19 16:30 Expected date of discharge: 04/13/19 Attending physician: Rossy Lockwood Consults: 04/11/19 16:13 Consult Physician Urgent Consulting Provider: Migel Edmondson Consult Reason/Comments: ESRD on HD Do you want consulting provider notified?: Already Contacted Primary care physician: Ten DelacruzComoCollis P. [facility] Hospital Course: This is a 58-year-old male one of Dr. Mckeon with a previous medical history significant for hypertension and hypertensive cardiovascular disease, hyperlipidemia, diabetes mellitus type 2, paroxysmal atrial f ibrillation, coronary artery disease status post left heart catheterization and PCI of the obtuse marginal branch #1 off the LCx, followed by a recent PCI and stenting of the LAD back in September 2018, end-stage renal disease on hemodialysis Wednesday and Wednesday via left arm fistula, blindness of the right eye as well as left eye legally blind. Patient gives history of having nausea and vomi ting and ended up missing dialysis on Wednesday. He did have dialysis on Wednesday is now 5 days without. He complains of having dizziness and a fall at home. He denies any diarrhea. No fever or chills. Patient came into the [facility] emergency center for evaluation. His initial blood pressure was 205/103, afebrile, heart rate 60s, pulse ox 97% on room air. Hemoglobin 11, sodium 128, chloride 90, potassium 4.7, BUN 59 creatinine 5.02, blood sugar 636. Lactic acid 1.1, alkaline phosphatase 277. ProBNP 11,400 Chest x-ray borderline mild cardiomegaly. CT angios of the brain showed no abnormality. Patient was given hydralazine IV and dizziness had resolved. Patient initially started on insulin drip. Patient has been seen in the emergency center waiting for cardiac stepdown unit bed. He is receiving dialysis at the time of evaluation. Insulin drip will be transitioned to his home insulin regime. Blood sugar is now 114. Nausea and vomiting have resolved. 04/13: Patient has been afebrile, heart rate 59, blood pressure 151/70, pulse ox 95% on room air. Repeat blood work reveals WBC 7.9, hemoglobin 10.9. Sodium 130, potassium 4.2, chloride 94, CO2 26, BUN 45 creatinine 4.67. Blood sugars running between 168 and 198. Patient denies having any nausea or vomiting. He is complaining of lower extremity neuropathy in his feet. He does have 3+ pedal edema which is chronic. Patient states he had a bowel movement this morning. civil engineering project manager has met with the patient and he would like home care set up. Patient will be discharged home today in stable condition. Discharge diagnoses: 1. Dizziness most likely due to hypertensive emergency. 2. End-stage renal disease on hemodialysis. 3. CAD. 4. Paroxysmal atrial fibrillation. 5. Hypertension and hypertensive cardiovascular disease. 6. Diabetes mellitus type 2. 7. Diabetic neuropathy. 8. Diabetic retinopathy with right eye blindness and left eye legal blindness. Stable. 9. GERD. Discharge plan: Home with [facility] Impression and plan of care have been directed as dictated by the signing physician. Katelyn Wesley nurse practitioner acting as scribe for signing physician. Patient Condition at Discharge: Good Plan - Discharge Summary Discharge Rx Participant: Yes New Discharge Prescriptions: Continue Clopidogrel [Plavix] 75 mg PO DAILY #30 tab Nitroglycerin Sl Tabs [Nitrostat] 0.4 mg SUBLINGUAL Q5M PRN #25 tab PRN Reason: Chest Pain Insulin Glargine,Hum.rec.anlog [Basaglar Kwikpen U-100] 20 unit SQ BID Allopurinol [Zyloprim] 150 mg PO DAILY Insulin Aspart [NovoLOG Flexpen] See Protocol SQ ACHS Calcium Acetate [PhosLo] 1,334 mg PO AC-TID LORazepam [Ativan] 2 mg PO HS PRN PRN Reason: anxiety Pantoprazole [Protonix] 40 mg PO AC-BRKFST #30 tablet. Apixaban [Eliquis] 2.5 mg PO BID #60 tablet Atorvastatin [Lipitor] 80 mg PO HS@2100 hydrOXYzine HCL [Atarax] 100 mg PO TID PRN PRN Reason: itching Gabapentin [Neurontin] 400 mg PO HS Metolazone [Zaroxolyn] 5 mg PO DAILY Furosemide [Lasix] 80 mg PO BID Triamcinolone 0.1% Ointment [Kenalog] 1 applic TOPICAL BID PRN PRN Reason: ITCHING/RASH Amiodarone [Cordarone] 100 mg PO DAILY Metoprolol Tartrate [Lopressor] 12.5 mg PO BID Discontinued Rivaroxaban [Xarelto] 15 mg PO W/SUPPER Acetaminophen Tab [Tylenol Tab] 1,000 mg PO Q6HR PRN PRN Reason: Pain Or Fever > 100.5 No Action diphenhydrAMINE [Benadryl] 25 mg PO QID PRN PRN Reason: ITCHING/RASH Discharge Medication List Clopidogrel [Plavix] 75 mg PO DAILY #30 tab 03/05/18 [Rx] Nitroglycerin Sl Tabs [Nitrostat] 0.4 mg SUBLINGUAL Q5M PRN #25 tab 03/05/18 [Rx] Insulin Glargine,Hum.rec.anlog [Basaglar Kwikpen U-100] 20 unit SQ BID 03/24/18 [History] Allopurinol [Zyloprim] 150 mg PO DAILY 08/05/18 [History] Calcium Acetate [PhosLo] 1,334 mg PO AC-TID 08/05/18 [History] Insulin Aspart [NovoLOG Flexpen] See Protocol SQ ACHS 08/05/18 [History] LORazepam [Ativan] 2 mg PO HS PRN 08/05/18 [History] Pantoprazole [Protonix] 40 mg PO AC-BRKFST #30 tablet. 08/11/18 [Rx] Apixaban [Eliquis] 2.5 mg PO BID #60 tablet 10/18/18 [Rx] Atorvastatin [Lipitor] 80 mg PO HS@2100 02/01/19 [History] hydrOXYzine HCL [Atarax] 100 mg PO TID PRN 02/01/19 [History] Gabapentin [Neurontin] 400 mg PO HS 04/11/19 [History] Amiodarone [Cordarone] 100 mg PO DAILY 04/13/19 [History] Furosemide [Lasix] 80 mg PO BID 04/13/19 [History] Metolazone [Zaroxolyn] 5 mg PO DAILY 04/13/19 [History] Metoprolol Tartrate [Lopressor] 12.5 mg PO BID 04/13/19 [History] Triamcinolone 0.1% Ointment [Kenalog] 1 applic TOPICAL BID PRN 04/13/19 [History] diphenhydrAMINE [Benadryl] 25 mg PO QID PRN 04/13/19 [History] Follow up Appointment(s)/Referral(s): Janine Nguyen MD [STAFF PHYSICIAN] - (Please maintain normal dialysis treatment schedule outpatient. ) Ermias Wayne [NON-STAFF] - Ten Mckeon DO [Primary Care Provider] - 1 Week (Office number not answering, please follow up within one week of being discharged from the hospital.) Patient Instructions/Handouts: Hypertensive Crisis (DC) Discharge Disposition: HOME WITH HOME HEALTH SERVICES
--- NOTE | 2019-04-13 17:38 | PN ---
PROGRESS NOTE The patient is seen for follow up for end-stage renal disease. He was admitted with nausea and decreased oral intake. The nausea seems to have improved. The patient tolerated his breakfast this morning as well as dinner last night. He was dialyzed yesterday. He is scheduled for hemodialysis tomorrow as an outpatient. PHYSICAL EXAMINATION: On examination this morning, blood pressure was 165/67, heart rate 59 per minute, patient is afebrile. Examination of the heart: S1 and S2. Examination of the lungs: Bilateral breath sounds are heard. Abdomen is soft, nontender, obese. Examination of the lower extremities shows edema 2+ bilaterally. RADIO SURVEY WORKER examination grossly intact. LABORATORY DATA: Laboratories show sodium 130, potassium 4.2, chloride 94, BUN 45, creatinine 4.67, hemoglobin at 10.9. ASSESSMENT: 1. End-stage renal disease on hemodialysis on a Wednesday, Wednesday, Wednesday schedule. 2. Volume overload. We will plan for increasing ultrafiltration tomorrow as an outpatient on hemodialysis. 3. Nausea, currently resolved. PLAN: The patient can be discharged from Nephrology standpoint. Follow up as outpatient for hemodialysis in a.m. MMVALERIE / BISIN: [id number] /
== END 2019-04-13 12:28 | disposition home health service (06) | DRG 304 ==
LOC: EC 11:17 → 3SCARD 16:30
PROVIDERS: ADMIT Internal Medicine; ATTEND Internal Medicine
PROC: 5A1D70Z Performance of Urinary Filtration, Intermittent, Less than 6 Hours Per Day (ICD-10-PCS; principal; 2019-04-11)
DX: I16.1 Hypertensive emergency (principal); N18.6 End stage renal disease; E87.1 Hypo-osmolality and hyponatremia; K21.9 Gastro-esophageal reflux disease without esophagitis; N25.0 Renal osteodystrophy; I25.10 Atherosclerotic heart disease of native coronary artery without angina pectoris; I13.2 Hypertensive heart and chronic kidney disease with heart failure and with stage 5 chronic kidney disease, or end stage renal disease; H91.90 Unspecified hearing loss, unspecified ear; H54.8 Legal blindness, as defined in USA; F41.9 Anxiety disorder, unspecified; F32.9 Major depressive disorder, single episode, unspecified; G25.81 Restless legs syndrome; E11.65 Type 2 diabetes mellitus with hyperglycemia; E11.41 Type 2 diabetes mellitus with diabetic mononeuropathy; E11.319 Type 2 diabetes mellitus with unspecified diabetic retinopathy without macular edema; E11.22 Type 2 diabetes mellitus with diabetic chronic kidney disease; E11.43 Type 2 diabetes mellitus with diabetic autonomic (poly)neuropathy; E78.5 Hyperlipidemia, unspecified; I48.0 Paroxysmal atrial fibrillation; I50.9 Heart failure, unspecified; I25.2 Old myocardial infarction; Z99.2 Dependence on renal dialysis; Z95.5 Presence of coronary angioplasty implant and graft; Z91.15 Patient's noncompliance with renal dialysis; Z87.891 Personal history of nicotine dependence; Z83.3 Family history of diabetes mellitus; Z82.49 Family history of ischemic heart disease and other diseases of the circulatory system; Z80.8 Family history of malignant neoplasm of other organs or systems; Z79.899 Other long term (current) drug therapy; Z79.82 Long term (current) use of aspirin; Z79.4 Long term (current) use of insulin; Z79.02 Long term (current) use of antithrombotics/antiplatelets; Z79.01 Long term (current) use of anticoagulants; Z88.1 Allergy status to other antibiotic agents; Z88.5 Allergy status to narcotic agent; Z88.8 Allergy status to other drugs, medicaments and biological substances
CPT/HCPCS: 36415; 70496; 70498; 71046; 80048; 80053; 81001; 83605; 83690; 83735; 83880; 85025; 85027; 85610; 85730; 90935; 93005; 96361; 96374; 99285

== ENCOUNTER 2019-07-21 17:45 | Observation (INO) | payer MEDICARE, OTHER ==
[2019-07-21] MEDS ORDERED: ASPIRIN 81 MG PO STA (18:06)
--- NOTE | 2019-07-21 18:09 | ED ---
General Adult HPI - General Chief complaint: Chest Pain Stated complaint: Chest Pain Time Seen by Provider: 07/21/19 17:55 Source: EMS Mode of arrival: EMS Limitations: no limitations - History of Present Illness Initial comments: Dictation was produced using [employer] dictation software. please excuse any grammatical, word or spelling errors. This patient was cared for during a federal and state declared state of emergency secondary to Covid 19 Chief Complaint: 58-year-old male presents with chest pain. History of Present Illness: 58-year-old male who has past medical history of coronary artery disease, dialysis. Presents today with chest pain. Patient was getting dialysis today and towards the end of his dialysis session and began experiencing substernal chest pressure. Patient reports having had multiple heart attacks in the past. Patient states that since being in the emergency department his chest symptoms have improved. He states that the pain did radiate to his shoulders. No cough. He gets dialysis via fistula to his left upper extremity. He gets dialysis Wednesday. The ROS documented in this emergency department record has been reviewed and confirmed by me. Those systems with pertinent positive or negative responses have been documented in the HPI. All other systems are other negative and/or noncontributory. PHYSICAL EXAM: General Impression: Alert and oriented x3, not in acute distress HEENT: Normocephalic atraumatic, extra-ocular movements intact, pupils equal and reactive to light bilaterally, mucous membranes moist. Cardiovascular: Heart regular rate and rhythm Chest: Able to complete full sentences, no retractions, no tachypnea Abdomen: abdomen soft, non-tender, non-distended, no organomegaly Musculoskeletal: Pulses present and equal in all extremities, no peripheral edema Motor: no focal deficits noted Neurological: CN II-XII grossly intact, no focal motor or sensory deficits noted Skin: Intact with no visualized rashes Psych: Normal affect and mood ED course: 58-year-old male presents with chief complaint of chest pain. All signs upon arrival are within acceptable limits. Chart review shows that patient had cardiac catheterization January of last year showing patent stents and chronic occlusion Laboratory evaluation obtained. CBC, coag panel, metabolic panel is within acceptable limits. Troponin is 0.018 which is below patient's baseline. Chest x-ray is unremarkable. Patient reevaluated at bedside stable medical condition. He states that his chest pain is not apparent at this time. Patient be admitted for serial troponins and cardiology consultation. Discussed patient case with Dr. Pantoja who is willing to accept patients care. EKG interpretation: Ventricular rate 56, sinus bradycardia,. 172, QRS 96, QTC 509. No FL prolongation, no QTC prolongation, no ST or T-wave changes noted. EKG compared to 04/11/2019 showing no changes. Overall, this EKG is unremarkable - Related Data Home Medications Medication Instructions Recorded Confirmed Insulin Glargine,Hum.rec.anlog 20 unit SQ BID 03/24/18 04/13/19 [Basaglar Kwikpen U-100] Allopurinol [Zyloprim] 150 mg PO DAILY 08/05/18 04/13/19 Calcium Acetate [PhosLo] 1,334 mg PO AC-TID 08/05/18 04/13/19 Insulin Aspart [NovoLOG Flexpen] See Protocol SQ ACHS 08/05/18 04/13/19 LORazepam [Ativan] 2 mg PO HS PRN 08/05/18 04/13/19 Atorvastatin [Lipitor] 80 mg PO HS@2100 02/01/19 04/13/19 hydrOXYzine HCL [Atarax] 100 mg PO TID PRN 02/01/19 04/13/19 Gabapentin [Neurontin] 400 mg PO HS 04/11/19 04/13/19 Amiodarone [Cordarone] 100 mg PO DAILY 04/13/19 04/13/19 Furosemide [Lasix] 80 mg PO BID 04/13/19 04/13/19 Metolazone [Zaroxolyn] 5 mg PO DAILY 04/13/19 04/13/19 Metoprolol Tartrate [Lopressor] 12.5 mg PO BID 04/13/19 04/13/19 Triamcinolone 0.1% Ointment 1 applic TOPICAL BID PRN 04/13/19 04/13/19 [Kenalog] diphenhydrAMINE [Benadryl] 25 mg PO QID PRN 04/13/19 04/13/19 Previous Rx's Medication Instructions Recorded Clopidogrel [Plavix] 75 mg PO DAILY #30 tab 03/05/18 Nitroglycerin Sl Tabs [Nitrostat] 0.4 mg SUBLINGUAL Q5M PRN #25 tab 03/05/18 Pantoprazole [Protonix] 40 mg PO SOPHIE-BRKFST #30 tablet. 08/11/18 Apixaban [Eliquis] 2.5 mg PO BID #60 tablet 10/18/18 Allergies Allergy/AdvReac Type Severity Reaction Status Date / Time bumetanide [From Bumex] Allergy Hallucinati Verified 04/11/19 17:53 ons spironolactone Allergy Hallucinati Verified 04/11/19 17:53 ons codeine AdvReac Hallucinati Verified 04/11/19 17:53 ons morphine AdvReac Confusion Verified 04/11/19 17:53 rivaroxaban [From Xarelto] AdvReac Bloody Nose Verified 04/14/19 07:10 All antibiotics except Keflex Allergy Unknown Uncoded 01/15/19 12:05 Childhood Review of Systems ROS Statement: Those systems with pertinent positive or pertinent negative responses have been documented in the HPI. ROS Other: All systems not noted in ROS Statement are negative. Past Medical History Past Medical History: Atrial Fibrillation, Coronary Artery Disease (CAD), Heart Failure, Diabetes Mellitus, Dialysis, Eye Disorder, GERD/Reflux, Hearing Disorder / Deafness, Hyperlipidemia, Hypertension, Myocardial Infarction (PR), Renal Disease, Syncope Additional Past Medical History / Comment(s): IDDM type II, neuropathy bilateral hands/feet, ESRD with hemodialysis on // with last time being 10/14/18, chronic anemia, LVH, Afib with RVR, MIs, chronic CHF, R eye blindness, L eye legally blind, RLS, pt unsure if he has gout, vertigo at times, balance issues at times, stomach ulcer at age 17yrs, sinus problems, very [place] R ear. Last Myocardial Infarction Date:: 08/09/18 History of Any Multi-Drug Resistant Organisms: None Reported Past Surgical History: Heart Catheterization, Heart Catheterization With Stent Additional Past Surgical History / Comment(s): TTT, PD catheter placement/since removed, 2016 L arm fistula, fistula gram with balloon for stenosis, L eye vitrectomy, thyroid needle aspiration-negative, L leg cyst, colonoscopy with benign polypectomy. Past Anesthesia/Blood Transfusion Reactions: Postoperative Nausea & Vomiting (PONV) Date of Last Stent Placement:: 03-03-18 Past Psychological History: Anxiety, Depression Smoking Status: Former smoker Past Alcohol Use History: None Reported Past Drug Use History: None Reported - Past Family History Father Family Medical History: Cancer (Father at age of 72 from brain cancer also had history of CAD.), Coronary Artery Disease (CAD), Hyperlipidemia Additional Family Medical History / Comment(s): ? BRAIN CANCER Mother Family Medical History: Diabetes Mellitus (Mother is 82-year-old with history of diabetes mellitus type 2 and osteoarthritis.), Osteoarthritis (OA) Additional Family Medical History / Comment(s): DJD. MOM IS STILL ALIVE AT AGE 80 Sister(s) Family Medical History: Diabetes Mellitus (Patient has one sister with diabetes mellitus type 2, SLE, MS.) Additional Family Medical History / Comment(s): Patient has one sister with diabetes mellitus type 2, SLE, MS. Brother(s) Family Medical History: Diabetes Mellitus (Patient has one brother who is diabetic and the other one is a pediatric psychiatrist.) Additional Family Medical History / Comment(s): Patient has 4 kids no major medical problems. Daughter(s) Family Medical History: No Reported History (Patient has 2 daughters no major medical problems.) Additional Family Medical History / Comment(s): Patient has 2 daughters no major medical problems. Son(s) Family Medical History: No Reported History (Patient has 2 sons no major medical problems.) Additional Family Medical History / Comment(s): Patient has 2 sons no major medical problems. General Exam Limitations: no limitations Course Vital Signs 07/21/19 07/21/19 07/21/19 17:46 17:52 19:14 Temperature 97.9 F 98.3 F Pulse Rate 60 61 Pulse Rate [ 56 L Medical Claims Representative ] Respiratory 18 18 Rate Blood Pressure 128/68 170/77 O2 Sat by Pulse 94 L 100 Oximetry Medical Decision Making - Lab Data Result diagrams: 07/21/19 18:22 07/21/19 18:22 Lab Results 07/21/19 07/21/19 07/21/19 Range/Units 18:22 18:22 18:22 WBC 7.3 (3.8-10.6) k/uL RBC 4.53 (4.30-5.90) m/uL Hgb 11.1 L (13.0-17.5) gm/dL Hct 36.0 L (39.0-53.0) % MCV 79.5 L (80.0-100.0) fL MCH 24.5 L (25.0-35.0) pg MCHC 30.8 L (31.0-37.0) g/dL RDW 15.8 H (11.5-15.5) % Plt Count 236 (150-450) k/uL Neutrophils % 76 % Lymphocytes % 7 % Monocytes % 7 % Eosinophils % 6 % Basophils % 1 % Neutrophils # 5.5 (1.3-7.7) k/uL Lymphocytes # 0.5 L (1.0-4.8) k/uL Monocytes # 0.5 (0-1.0) k/uL Eosinophils # 0.4 (0-0.7) k/uL Basophils # 0.1 (0-0.2) k/uL PT 10.0 (9.0-12.0) sec INR 1.0 (<1.2) APTT 24.8 (22.0-30.0) sec Sodium 133 L (137-145) mmol/L Potassium 3.3 L (3.5-5.1) mmol/L Chloride 92 L (98-107) mmol/L Carbon Dioxide 32 H (22-30) mmol/L Anion Gap 9 mmol/L BUN 21 H (9-20) mg/dL Creatinine 2.74 H (0.66-1.25) mg/dL Est GFR (CKD-EPI)AfAm 28 (>60 ml/min/1.73 sqM) Est GFR (CKD-EPI)NonAf 24 (>60 ml/min/1.73 sqM) Glucose 226 H (74-99) mg/dL Calcium 8.9 (8.4-10.2) mg/dL Magnesium 1.8 (1.6-2.3) mg/dL Total Bilirubin 0.6 (0.2-1.3) mg/dL AST 22 (17-59) U/L ALT 26 (4-49) U/L Alkaline Phosphatase 215 H (38-126) U/L Troponin I (0.000-0.034) ng/mL Total Protein 6.5 (6.3-8.2) g/dL Albumin 3.6 (3.5-5.0) g/dL 07/21/19 Range/Units 18:22 WBC (3.8-10.6) k/uL RBC (4.30-5.90) m/uL Hgb (13.0-17.5) gm/dL Hct (39.0-53.0) % MCV (80.0-100.0) fL MCH (25.0-35.0) pg MCHC (31.0-37.0) g/dL RDW (11.5-15.5) % Plt Count (150-450) k/uL Neutrophils % % Lymphocytes % % Monocytes % % Eosinophils % % Basophils % % Neutrophils # (1.3-7.7) k/uL Lymphocytes # (1.0-4.8) k/uL Monocytes # (0-1.0) k/uL Eosinophils # (0-0.7) k/uL Basophils # (0-0.2) k/uL PT (9.0-12.0) sec INR (<1.2) APTT (22.0-30.0) sec Sodium (137-145) mmol/L Potassium (3.5-5.1) mmol/L Chloride (98-107) mmol/L Carbon Dioxide (22-30) mmol/L Anion Gap mmol/L BUN (9-20) mg/dL Creatinine (0.66-1.25) mg/dL Est GFR (CKD-EPI)AfAm (>60 ml/min/1.73 sqM) Est GFR (CKD-EPI)NonAf (>60 ml/min/1.73 sqM) Glucose (74-99) mg/dL Calcium (8.4-10.2) mg/dL Magnesium (1.6-2.3) mg/dL Total Bilirubin (0.2-1.3) mg/dL AST (17-59) U/L ALT (4-49) U/L Alkaline Phosphatase (38-126) U/L Troponin I 0.018 (0.000-0.034) ng/mL Total Protein (6.3-8.2) g/dL Albumin (3.5-5.0) g/dL Disposition Clinical Impression: Chest pain Disposition: ADMITTED IP TO THIS [facility] Condition: Fair Referrals: Ten Mckeon DO [Primary Care Provider] - 1-2 days Decision Time: 20:05
--- NOTE | 2019-07-21 18:32 | XR ---
EXAMINATION TYPE: XR chest 2V DATE OF EXAM: 07/21/2019 COMPARISON: 04/11/2019 HISTORY: Chest pain radiating into the back with shortness of breath TECHNIQUE: Frontal and lateral views of the chest are obtained. FINDINGS: There is no focal air space opacity, pleural effusion, or pneumothorax seen. The cardiac silhouette size is mildly enlarged as seen on the prior. The osseous structures are intact. Moderat e degenerative change of the spine. IMPRESSION: No acute cardiopulmonary process. Persistent cardiomegaly as seen on the prior.
[2019-07-21 18:34] LABS: Basophils # (A) 0.1 k/uL (0-0.2); Basophils % (A) 1 %; Eosinophils # (A) 0.4 k/uL (0-0.7); Eosinophils % (A) 6 %; HGB 11.1 gm/dL (13.0-17.5); Lymphocytes # (A) 0.5 k/uL (1.0-4.8); Lymphocytes % (A) 7 %; MCH 24.5 pg (25.0-35.0); MCHC 30.8 g/dL (31.0-37.0); MCV 79.5 fL (80.0-100.0); Mean Platelet Volume 6.9; Monocytes # (A) 0.5 k/uL (0-1.0); Monocytes % (A) 7 %; Neutrophils # (A) 5.5 k/uL (1.3-7.7); Neutrophils % (A) 76 %; Platelet Count 236 k/uL (150-450); RBC 4.53 m/uL (4.30-5.90); RDW 15.8 % (11.5-15.5); WBC 7.3 k/uL (3.8-10.6)
[2019-07-21 18:39] LABS: Partial Thromboplastin Time 24.8 sec (22.0-30.0)
[2019-07-21 18:44] LABS: Albumin 3.6 g/dL (3.5-5.0); Calcium 8.9 mg/dL (8.4-10.2); Magnesium 1.8 mg/dL (1.6-2.3); Potassium 3.3 mmol/L (3.5-5.1); Total Bilirubin 0.6 mg/dL (0.2-1.3); Total Protein 6.5 g/dL (6.3-8.2)
[2019-07-21] MEDS ORDERED: METOPROLOL TARTRATE 12.5 MG TAB PO STA (20:32)
[2019-07-22 03:14] LABS: Cholesterol 167 mg/dL (<200); HDL Cholesterol 41 mg/dL (40-60); LDL Cholesterol,Calculated 74 mg/dL (0-99); Triglycerides 261 mg/dL (<150)
[2019-07-22 08:04] LABS: Glucose,Whole Blood 273 mg/dL (75-99)
[2019-07-22 08:05] VITALS: RESP 16
--- NOTE | 2019-07-22 08:09 | P.CRDCN ---
History of Present Illness Consult date: 07/22/19 Chief complaint: Chest pain History of present illness: This is a very pleasant 58-year-old gentleman who I follow in the office as an outpatient with coronary artery disease and prior stenting, paroxysmal atrial fibrillation, hypertension, dyslipidemia, and paroxysmal atrial fibrillation presented to the hospital complaining of chest discomfort. He was at dialysis yesterday and by the end he started experiencing discomfort in the mid of the chest, as a sharp, without any radiation to the arm or neck or shoulders, and without any assistive his symptoms of shortness of breath, sweating, dizziness, or syncope. The pain lasted for about an hour and because of that he decided to come to the hospital. Since his hospital stay he has been chest pain-free. The blood pressure is elevated while he is here. The EKG showed sinus rhythm with sinus bradycardia without any ischemic ST or T-wave abnormalities. The troponin was checked and came in to be unremarkable. Currently the patient is chest pain-free. His pressure is elevated but he is not on any of his medication at home. I am going to restart that. I advised the patient to get up and around and if he is asymptomatic he possibly can be discharged home and I will follow- up with him in the office as an outpatient. As a matter of fact the patient would like to go home. Past Medical History Past Medical History: Atrial Fibrillation, Coronary Artery Disease (CAD), Heart Failure, Diabetes Mellitus, Dialysis, Eye Disorder, GERD/Reflux, Hearing Disorder / Deafness, Hyperlipidemia, Hypertension, Myocardial Infarction (CA), Renal Disease, Syncope Additional Past Medical History / Comment(s): IDDM type II, neuropathy bilateral hands/feet, ESRD with hemodialysis on // with last time being 10/14/18, chronic anemia, LVH, Afib with RVR, MIs, chronic CHF, R eye blindness, L eye legally blind, RLS, pt unsure if he has gout, vertigo at times, balance issues at times, stomach ulcer at age 17yrs, sinus problems, very [place] R ear. Last Myocardial Infarction Date:: 08/09/18 History of Any Multi-Drug Resistant Organisms: None Reported Past Surgical History: Heart Catheterization, Heart Catheterization With Stent Additional Past Surgical History / Comment(s): TTT, PD catheter placement/since removed, 2016 L arm fistula, fistula gram with balloon for stenosis, L eye vitrectomy, thyroid needle aspiration-negative, L leg cyst, colonoscopy with benign polypectomy. Past Anesthesia/Blood Transfusion Reactions: Postoperative Nausea & Vomiting (PONV) Date of Last Stent Placement:: 03-03-18 Past Psychological History: Anxiety, Depression Additional Psychological History / Comment(s): Pt resides with his spouse, AND SON. He is legally blind L eye and blind in R eye. He is very [place] in R ear. He has a cane and walker which he uses prn. His spouse and son drive. Pt uses glasses and a magnifier to read. He has depression which he states is constantly present but not increased. He denies thoughts/plans of suicide. Smoking Status: Former smoker Past Alcohol Use History: None Reported Additional Past Alcohol Use History / Comment(s): Pt started smoking in 1972 and quit in 1995. Past Drug Use History: None Reported - Past Family History Father Family Medical History: Cancer, Coronary Artery Disease (CAD), Hyperlipidemia Additional Family Medical History / Comment(s): ? BRAIN CANCER Mother Family Medical History: Diabetes Mellitus, Osteoarthritis (OA) Additional Family Medical History / Comment(s): DJD. MOM IS STILL ALIVE AT AGE 80 Sister(s) Family Medical History: Diabetes Mellitus Additional Family Medical History / Comment(s): Patient has one sister with diabetes mellitus type 2, SLE, MS. Brother(s) Family Medical History: Diabetes Mellitus Additional Family Medical History / Comment(s): Patient has 4 kids no major medical problems. Daughter(s) Family Medical History: No Reported History Additional Family Medical History / Comment(s): Patient has 2 daughters no major medical problems. Son(s) Family Medical History: No Reported History Additional Family Medical History / Comment(s): Patient has 2 sons no major medical problems. Medications and Allergies Home Medications Medication Instructions Recorded Confirmed Type Clopidogrel [Plavix] 75 mg PO DAILY #30 tab 03/05/18 07/22/19 Rx Nitroglycerin Sl Tabs [Nitrostat] 0.4 mg SUBLINGUAL Q5M PRN #25 tab 03/05/18 07/22/19 Rx Insulin Glargine,Hum.rec.anlog 25 unit SQ BID 03/24/18 07/22/19 History [[place] U-100] Allopurinol [Zyloprim] 150 mg PO DAILY 08/05/18 07/22/19 History Calcium Acetate [PhosLo] 1,334 mg PO AC-TID 08/05/18 07/22/19 History Insulin Aspart [NovoLOG Flexpen] See Protocol SQ ACHS 08/05/18 07/22/19 History LORazepam [Ativan] 2 mg PO HS PRN 08/05/18 07/22/19 History Pantoprazole [Protonix] 40 mg PO AC-BRKFST #30 tablet. 08/11/18 07/22/19 Rx Apixaban [Eliquis] 2.5 mg PO BID #60 tablet 10/18/18 07/22/19 Rx Atorvastatin [Lipitor] 80 mg PO HS@2100 02/01/19 07/22/19 History hydrOXYzine HCL [Atarax] 100 mg PO TID PRN 02/01/19 07/22/19 History Gabapentin [Neurontin] 400 mg PO HS 04/11/19 07/22/19 History Amiodarone [Cordarone] 100 mg PO DAILY 04/13/19 07/22/19 History Furosemide [Lasix] 80 mg PO BID 04/13/19 07/22/19 History Metolazone [Zaroxolyn] 5 mg PO DAILY 04/13/19 07/22/19 History Metoprolol Tartrate [Lopressor] 25 mg PO QAM 04/13/19 07/22/19 History Triamcinolone 0.1% Ointment 1 applic TOPICAL BID PRN 04/13/19 07/22/19 History [Kenalog] diphenhydrAMINE [Benadryl] 25 mg PO QID PRN 04/13/19 07/22/19 History Cetirizine HCl [Zyrtec] 15 mg PO QAM 07/22/19 07/22/19 History Metoprolol Tartrate [Lopressor] 12.5 mg HS 07/22/19 07/22/19 History Allergies Allergy/AdvReac Type Severity Reaction Status Date / Time bumetanide [From Bumex] Allergy Hallucinati Verified 04/11/19 17:53 ons spironolactone Allergy Hallucinati Verified 04/11/19 17:53 ons codeine AdvReac Hallucinati Verified 04/11/19 17:53 ons morphine AdvReac Confusion Verified 04/11/19 17:53 rivaroxaban [From Xarelto] AdvReac Bloody Nose Verified 04/14/19 07:10 All antibiotics except Keflex Allergy Unknown Uncoded 01/15/19 12:05 Childhood Physical Exam Vitals: Vital Signs Temp Pulse Pulse Resp BP BP Pulse Ox 07/22/19 07:57 97.9 F 59 L 16 176/77 94 L 07/22/19 04:00 97.7 F 53 L 18 167/72 95 07/21/19 23:00 96.9 F L 53 L 18 177/78 98 07/21/19 21:16 98 F 52 L 18 162/81 100 07/21/19 19:14 98.3 F 61 18 170/77 100 07/21/19 17:52 56 L 07/21/19 17:46 97.9 F 60 18 128/68 94 L Intake and Output 07/21/19 07/22/19 07/22/19 22:59 06:59 14:59 Other: Weight 95 kg 95 kg - Constitutional General appearance: no acute distress - Respiratory Respiratory: bilateral: CTA - Cardiovascular Rhythm: regular Heart sounds: normal: S1, S2 Abnormal Heart Sounds: systolic murmur Results 07/21/19 18:22 07/21/19 18:22 Cardiac Enzymes 07/21/19 07/21/19 07/22/19 Range/Units 18:22 18:22 00:58 AST 22 (17-59) U/L Troponin I 0.018 0.023 (0.000-0.034) ng/mL 07/22/19 Range/Units 06:13 AST (17-59) U/L Troponin I 0.022 (0.000-0.034) ng/mL Coagulation 07/21/19 Range/Units 18:22 PT 10.0 (9.0-12.0) sec APTT 24.8 (22.0-30.0) sec Lipids 07/21/19 Range/Units 18:22 Triglycerides 261 H (<150) mg/dL Cholesterol 167 (<200) mg/dL HDL Cholesterol 41 (40-60) mg/dL CBC 07/21/19 Range/Units 18:22 WBC 7.3 (3.8-10.6) k/uL RBC 4.53 (4.30-5.90) m/uL Hgb 11.1 L (13.0-17.5) gm/dL Hct 36.0 L (39.0-53.0) % Plt Count 236 (150-450) k/uL Comprehensive Metabolic Panel 07/21/19 Range/Units 18:22 Sodium 133 L (137-145) mmol/L Potassium 3.3 L (3.5-5.1) mmol/L Chloride 92 L (98-107) mmol/L Carbon Dioxide 32 H (22-30) mmol/L BUN 21 H (9-20) mg/dL Creatinine 2.74 H (0.66-1.25) mg/dL Glucose 226 H (74-99) mg/dL Calcium 8.9 (8.4-10.2) mg/dL AST 22 (17-59) U/L ALT 26 (4-49) U/L Alkaline Phosphatase 215 H (38-126) U/L Total Protein 6.5 (6.3-8.2) g/dL Albumin 3.6 (3.5-5.0) g/dL Current Medications Generic Name Dose Route Start Last Admin Trade Name Freq PRN Reason Stop Dose Admin Aspirin 325 mg 07/22/19 09:00 Aspirin PO DAILY JLUIS Intake and Output 07/21/19 07/22/19 07/22/19 22:59 06:59 14:59 Other: Weight 95 kg 95 kg 07/21/19 18:22 07/21/19 18:22 Assessment and Plan Assessment: Assessment Atypical chest discomfort Coronary artery disease and prior stenting Paroxysmal atrial fibrillation Hypertension Dyslipidemia Plan Acute coronary event was ruled out We'll get the patient up and around and if the patient is asymptomatic he can possibly be discharged home Follow-up with the patient as an outpatient
[2019-07-22] MEDS ORDERED: hydrOXYzine HCL 25 MG TAB PO PRN (08:38)
[2019-07-22] MEDS ORDERED: LORazepam 1 MG TAB PO PRN (08:38)
[2019-07-22] MEDS ORDERED: NITROGLYCERIN SL TABS 0.4 MG TAB SUBLINGUAL PRN (08:38)
[2019-07-22] MEDS ORDERED: TRIAMCINOLONE ACET 0.1% OINTMENT 80 GM TUBE TOPICAL PRN (08:38)
[2019-07-22] MEDS ORDERED: diphenhydrAMINE 25 MG CAP PO PRN (08:38)
[2019-07-22] MEDS ORDERED: APIXABAN 2.5 MG TABLET PO SCH (09:00)
[2019-07-22] MEDS ORDERED: ASPIRIN 325 MG TAB PO SCH (09:00)
[2019-07-22] MEDS ORDERED: ALLOPURINOL 300 MG TAB PO SCH (09:00)
[2019-07-22] MEDS ORDERED: LORATADINE 10 MG TAB PO SCH (09:00)
[2019-07-22] MEDS ORDERED: METOLAZONE 5 MG TAB PO SCH (09:00)
[2019-07-22] MEDS ORDERED: ISOSORBIDE MONONITRATE ER 30 MG TAB.ER.24H PO SCH (09:00)
[2019-07-22] MEDS ORDERED: CLOPIDOGREL 75 MG TAB PO SCH (09:00)
[2019-07-22] MEDS ORDERED: FUROSEMIDE 80 MG TAB PO SCH (09:00)
[2019-07-22] MEDS ORDERED: METOPROLOL TARTRATE 25 MG TAB PO SCH (09:00)
[2019-07-22] MEDS ORDERED: AMIODARONE 100 MG TAB PO SCH (09:00)
[2019-07-22 12:05] VITALS: BP 167/73; PULSE 53; TEMP 96.7
[2019-07-22] MEDS ORDERED: CALCIUM ACETATE 667 MG TAB PO SCH (12:30)
--- NOTE | 2019-07-22 17:28 | P.HPIM ---
History of Present Illness H&P Date: 07/22/19 Chief Complaint: Chest pain This would serve both in H&P and discharge summary This is a 58-year-old male one of Dr. 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 , Patient undergoes hemodialysis, on Wednesday, and on during his routine hemodialysis are yesterday, he dev eloped some chest discomfort, towards the end of the Cialis is. He mentioned this to the dialysis nurse, and was subsequently transferred to the emergency room. Apparently patient has recurrent episodes of this discomfort especially during hemodialysis, patient has the pain lasting for approximately 1 hour, no relief with 3 nitroglycerin, one of one was given HD, 1 during ambulance transport, and one at the ER evaluation. The pain was sharp, without any radiation to the neck or shoulders, no shortness of breath with exertion, no lightheadedness no dizziness no diaphoresis. And no syncope. Patient's heart rate and blood pressure was not known, however patient does not feel flushed or hypertensive during those events. Patient was subsequently seen in emergency room with observation, his initial troponin was negative, patient remained to be chest pain free during this admission, and was seen in consultation by cardiology, his primary marketing development representative Dr. Bowie,. Review of Systems Constitutional: Reports as per HPI, Denies anorexia, Denies chills, Denies chronic headaches, Denies chronic pain, Denies daytime sleepiness, Denies fatigue, Denies fever, Denies lethargy, Denies malaise, Denies night sweats, Denies poor appetite, Denies sweats, Denies weakness, Denies weight gain, Denies weight loss Ears, nose, mouth and throat: Reports as per HPI, Denies ant. neck pain, Denies bleeding gums, Denies dental pain, Denies dysphagia, Denies epistaxis, Denies headache, Denies hoarseness, Denies mouth pain, Denies nasal congestion, Denies nasal discharge, Denies neck fullness/pressure, Denies neck lump, Denies nose pain, Denies odynophagia, Denies post-nasal drip, Denies sinus pain, Denies sinus pressure, Denies swelling in mouth, Denies swelling in throat, Denies sore throat, Denies vertigo, Denies voice changes Cardiovascular: Reports as per HPI, Reports chest pain, Denies claudication, Den ies decreased exercise tolerance, Denies dyspnea on exertion, Denies edema, Denies high blood pressure, Denies irregular heart beat, Denies leg edema, Denies lightheadedness, Denies orthopnea, Denies palpitations, Denies paroxysmal nocturnal dyspnea, Denies phlebitis, Denies rapid heart beat, Denies shortness of breath, Denies syncope Respiratory: Reports as per HPI, Denies congestion, Denies cough, Denies cough with sputum, Denies dyspnea, Denies excessive sputum, Denies hemoptysis, Denies home oxygen, Denies pain, Denies pain on inspiration, Denies pleurisy, Denies r espiratory infections, Denies sleep apnea, Denies snoring, Denies wheezing Gastrointestinal: Reports as per HPI, Denies abdominal pain, Denies belching, Denies bloating, Denies BRBPR, Denies change in bowel habits, Denies coffee ground emesis, Denies constipation, Denies diarrhea, Denies dyspepsia, Denies early satiety, Denies excessive gas, Denies heartburn, Denies hematemesis, Denies hematochezia, Denies indigestion, Denies jaundice, Denies lactose intolerance, Denies loss of appetite, Denies melena, Denies nausea, Denies vomiting Genitourinary: Reports as per HPI, Denies decreased libido, Denies difficulties fathering child, Denies discharge, Denies dysuria, Denies erectile dysfunction, Denies flank pain, Denies genital pain, Denies genital sores, Denies hematuria, Denies impotence, Denies incontinence, Denies kidney stones, Denies nocturia, Denies polyuria, Denies testicular lump, Denies testicular pain, Denies urinary frequency, Denies urinary hesitancy, Denies urinary retention Musculoskeletal: Reports as per HPI, Denies arm numbness/tingling, Denies atrophy, Denies fractures, Denies frequent falls, Denies gait dysfunction, Denies hot joints, Denies leg numbness/tingling, Denies limitation of motion, Denies loss of height, Denies low back pain, Denies morning stiffness, Denies muscle cramps, Denies muscle weakness, Denies myalgias, Denies neck pain, Denies neck stiffness, Denies prior amputations, Denies redness of joints, Denies shooting arm pain, Denies shooting leg pain Neurological: Reports as per HPI, Denies aphasia, Denies ataxia, Denies balance difficulties, Denies burning pain, Denies change in mentation, Denies change in smell/taste, Denies change in speech, Denies confusion, Denies convulsions, Denies double vision, Denies gait dysfunction, Denies head injury, Denies headaches, Denies hearing difficulties, Denies lack of coordination, Denies loss of vision, Denies memory loss, Denies migraines, Denies motor disturbance, Denies numbness, Denies paralysis, Denies paresthesias, Denies seizures, Denies sensory deficit, Denies spasticity, Denies syncope, Denies tic, Denies tingling, Denies transient paralysis, Denies tremors, Denies vertigo, Denies weakness, Denies visual changes Psychiatric: Reports as per HPI Endocrine: Reports as per HPI Hematologic/Lymphatic: Reports as per HPI, Denies easy bleeding, Denies easy bruising, Denies lymphadenopathy, Denies lymphedema, Denies thrombophilia Allergic/Immunologic: Reports as per HPI, Denies allergic rhinitis, Denies anaphylaxis, Denies angioedema, Denies gluten intolerance, Denies persistent infections, Denies seasonal allergies, Denies urticaria, Denies wheezing Past Medical History Past Medical History: Atrial Fibrillation, Coronary Artery Disease (CAD), Heart Failure, Diabetes Mellitus, Dialysis, Eye Disorder, GERD/Reflux, Hearing Disorder / Deafness, Hyperlipidemia, Hypertension, Myocardial Infarction (IA), Renal Disease, Syncope Additional Past Medical History / Comment(s): IDDM type II, neuropathy bilateral hands/feet, ESRD with hemodialysis on // with last time being 10/14/18, chronic anemia, LVH, Afib with RVR, MIs, chronic CHF, R eye blindness, L eye legally blind, RLS, pt unsure if he has gout, vertigo at times, balance issues at times, stomach ulcer at age 17yrs, sinus problems, very [place] R ear. Last Myocardial Infarction Date:: 08/09/18 History of Any Multi-Drug Resistant Organisms: None Reported Past Surgical History: Heart Catheterization, Heart Catheterization With Stent Additional Past Surgical History / Comment(s): TTT, PD catheter placement/since removed, 2016 L arm fistula, fistula gram with balloon for stenosis, L eye vitrectomy, thyroid needle aspiration-negative, L leg cyst, colonoscopy with benign polypectomy. Past Anesthesia/Blood Transfusion Reactions: Postoperative Nausea & Vomiting (PONV) Date of Last Stent Placement:: 03-03-18 Past Psychological History: Anxiety, Depression Additional Psychological History / Comment(s): Pt resides with his spouse, AND SON. He is legally blind L eye and blind in R eye. He is very [place] in R ear. He has a cane and walker which he uses prn. His spouse and son drive. Pt uses glasses and a magnifier to read. He has depression which he states is constantly present but not increased. He denies thoughts/plans of suicide. Smoking Status: Former smoker Past Alcohol Use History: None Reported Additional Past Alcohol Use History / Comment(s): Pt started smoking in 1972 and quit in 1995. Past Drug Use History: None Reported - Past Family History Father Family Medical History: Cancer, Coronary Artery Disease (CAD), Hyperlipidemia Additional Family Medical History / Comment(s): ? BRAIN CANCER Mother Family Medical History: Diabetes Mellitus, Osteoarthritis (OA) Additional Family Medical History / Comment(s): DJD. MOM IS STILL ALIVE AT AGE 80 Sister(s) Family Medical History: Diabetes Mellitus Additional Family Medical History / Comment(s): Patient has one sister with diabetes mellitus type 2, SLE, MS. Brother(s) Family Medical History: Diabetes Mellitus Additional Family Medical History / Comment(s): Patient has 4 kids no major medical problems. Daughter(s) Family Medical History: No Reported History Additional Family Medical History / Comment(s): Patient has 2 daughters no major medical problems. Son(s) Family Medical History: No Reported History Additional Family Medical History / Comment(s): Patient has 2 sons no major medical problems. Medications and Allergies Home Medications Medication Instructions Recorded Confirmed Type Clopidogrel [Plavix] 75 mg PO DAILY #30 tab 03/05/18 07/22/19 Rx Nitroglycerin Sl Tabs [Nitrostat] 0.4 mg SUBLINGUAL Q5M PRN #25 tab 03/05/18 07/22/19 Rx Insulin Glargine,Hum.rec.anlog 25 unit SQ BID 03/24/18 07/22/19 History [Basaglar Kwikpen U-100] Allopurinol [Zyloprim] 150 mg PO DAILY 08/05/18 07/22/19 History Calcium Acetate [PhosLo] 1,334 mg PO AC-TID 08/05/18 07/22/19 History Insulin Aspart [NovoLOG Flexpen] See Protocol SQ ACHS 08/05/18 07/22/19 History LORazepam [Ativan] 2 mg PO HS PRN 08/05/18 07/22/19 History Pantoprazole [Protonix] 40 mg PO AC-BRKFST #30 tablet. 08/11/18 07/22/19 Rx Apixaban [Eliquis] 2.5 mg PO BID #60 tablet 10/18/18 07/22/19 Rx Atorvastatin [Lipitor] 80 mg PO HS@2100 02/01/19 07/22/19 History hydrOXYzine HCL [Atarax] 100 mg PO TID PRN 02/01/19 07/22/19 History Gabapentin [Neurontin] 400 mg PO HS 04/11/19 07/22/19 History Amiodarone [Cordarone] 100 mg PO DAILY 04/13/19 07/22/19 History Furosemide [Lasix] 80 mg PO BID 04/13/19 07/22/19 History Metolazone [Zaroxolyn] 5 mg PO DAILY 04/13/19 07/22/19 History Metoprolol Tartrate [Lopressor] 25 mg PO QAM 04/13/19 07/22/19 History Triamcinolone 0.1% Ointment 1 applic TOPICAL BID PRN 04/13/19 07/22/19 History [Kenalog] diphenhydrAMINE [Benadryl] 25 mg PO QID PRN 04/13/19 07/22/19 History Cetirizine HCl [Zyrtec] 15 mg PO QAM 07/22/19 07/22/19 History Isosorbide Mononitrate ER [Imdur] 30 mg PO DAILY #30 tab.er.24h 07/22/19 Rx Metoprolol Tartrate [Lopressor] 12.5 mg HS 07/22/19 07/22/19 History Allergies Allergy/AdvReac Type Severity Reaction Status Date / Time bumetanide [From Bumex] Allergy Hallucinati Verified 04/11/19 17:53 ons spironolactone Allergy Hallucinati Verified 04/11/19 17:53 ons codeine AdvReac Hallucinati Verified 04/11/19 17:53 ons morphine AdvReac Confusion Verified 04/11/19 17:53 rivaroxaban [From Xarelto] AdvReac Bloody Nose Verified 04/14/19 07:10 All antibiotics except Keflex Allergy Unknown Uncoded 01/15/19 12:05 Childhood Physical Exam Vitals: Vital Signs Temp Pulse Pulse Resp BP BP Pulse Ox 07/22/19 12:00 96.7 F L 53 L 16 167/73 07/22/19 11:27 58 L 07/22/19 08:00 59 L 07/22/19 07:57 97.9 F 59 L 16 176/77 94 L 07/22/19 04:00 97.7 F 53 L 18 167/72 95 07/21/19 23:00 96.9 F L 53 L 18 177/78 98 07/21/19 21:16 98 F 52 L 18 162/81 100 07/21/19 19:14 98.3 F 61 18 170/77 100 07/21/19 17:52 56 L 07/21/19 17:46 97.9 F 60 18 128/68 94 L Intake and Output 07/21/19 07/22/19 07/22/19 22:59 06:59 14:59 Intake Total 900 Balance 900 Intake: Oral 900 Other: Weight 95 kg 95 kg - Constitutional General appearance: cooperative, no acute distress, obese - EENT Eyes: anicteric sclerae, EOMI, PERRLA, dentition normal, normal appearance ENT: NA/AT, normal oropharynx - Neck Neck: normal ROM - Respiratory Respiratory: bilateral: CTA, negative: diminished, dullness, rales, rhonchi, wheezing - Cardiovascular Rhythm: regular Heart sounds: normal: S1, S2 Abnormal Heart Sounds: no systolic murmur, no diastolic murmur, no rub, no S3 Gallop, no S4 Gallop, no click, no other - Gastrointestinal General gastrointestinal: normal bowel sounds, soft - Integumentary Integumentary: decreased turgor, normal - Neurologic Neurologic: CNII-XII intact - Musculoskeletal Musculoskeletal: gait normal, strength equal bilaterally - Psychiatric Psychiatric: A&O x's 3, appropriate affect, intact judgment & insight Results CBC & Chem 7: 07/21/19 18:22 07/21/19 18:22 Labs: Abnormal Lab Results - Last 24 Hours (Table) 07/21/19 07/21/19 07/21/19 Range/Units 18:22 18:22 18:22 Hgb 11.1 L (13.0-17.5) gm/dL Hct 36.0 L (39.0-53.0) % MCV 79.5 L (80.0-100.0) fL MCH 24.5 L (25.0-35.0) pg MCHC 30.8 L (31.0-37.0) g/dL RDW 15.8 H (11.5-15.5) % Lymphocytes # 0.5 L (1.0-4.8) k/uL Sodium 133 L (137-145) mmol/L Potassium 3.3 L (3.5-5.1) mmol/L Chloride 92 L (98-107) mmol/L Carbon Dioxide 32 H (22-30) mmol/L BUN 21 H (9-20) mg/dL Creatinine 2.74 H (0.66-1.25) mg/dL Glucose 226 H (74-99) mg/dL POC Glucose (mg/dL) (75-99) mg/dL Alkaline Phosphatase 215 H (38-126) U/L Triglycerides 261 H (<150) mg/dL 07/22/19 Range/Units 08:02 Hgb (13.0-17.5) gm/dL Hct (39.0-53.0) % MCV (80.0-100.0) fL MCH (25.0-35.0) pg MCHC (31.0-37.0) g/dL RDW (11.5-15.5) % Lymphocytes # (1.0-4.8) k/uL Sodium (137-145) mmol/L Potassium (3.5-5.1) mmol/L Chloride (98-107) mmol/L Carbon Dioxide (22-30) mmol/L BUN (9-20) mg/dL Creatinine (0.66-1.25) mg/dL Glucose (74-99) mg/dL POC Glucose (mg/dL) 273 H (75-99) mg/dL Alkaline Phosphatase (38-126) U/L Triglycerides (<150) mg/dL Laboratory Results WBC 7.3 k/uL (3.8-10.6) 07/21/19 18: RBC 4.53 m/uL (4.30-5.90) 07/21/19 18:22 Hgb 11.1 gm/dL (13.0-17.5) L 07/21/19 18:22 Hct 36.0 % (39.0-53.0) L 07/21/19 18:22 MCV 79.5 fL (80.0-100.0) L 07/21/19 18:22 MCH 24.5 pg (25.0-35.0) L 07/21/19 18: MCHC 30.8 g/dL (31.0-37.0) L 07/21/19 18:22 RDW 15.8 % (11.5-15.5) H 07/21/19 18:22 Plt Count 236 k/uL (150-450) 07/21/19 18:22 Neutrophils % 76 % 07/21/19 18:22 Lymphocytes % 7 % 07/21/19 18:22 Monocytes % 7 % 07/21/19 18:22 Eosinophils % 6 % 07/21/19 18: Basophils % 1 % 07/21/19 18:22 Neutrophils # 5.5 k/uL (1.3-7.7) 07/21/19 18: Lymphocytes # 0.5 k/uL (1.0-4.8) L 07/21/19 18: Monocytes # 0.5 k/uL (0-1.0) 07/21/19 18: Eosinophils # 0.4 k/uL (0-0.7) 07/21/19 18: Basophils # 0.1 k/uL (0-0.2) 07/21/19 18: PT 10.0 sec (9.0-12.0) 07/21/19 18:22 INR 1.0 (<1.2) 07/21/19 18:22 APTT 24.8 sec (22.0-30.0) 07/21/19 18:22 Sodium 133 mmol/L (137-145) L 07/21/19 18:22 Potassium 3.3 mmol/L (3.5-5.1) L 07/21/19 18:22 Chloride 92 mmol/L (98-107) L 07/21/19 18:22 Carbon Dioxide 32 mmol/L (22-30) H 07/21/19 18:22 Anion Gap 9 mmol/L 07/21/19 18:22 BUN 21 mg/dL (9-20) H 07/21/19 18:22 Creatinine 2.74 mg/dL (0.66-1.25) H 07/21/19 18:22 Est GFR (CKD-EPI)AfAm 28 (>60 ml/min/1.73 sqM) 07/21/19 18:22 Est GFR (CKD-EPI)NonAf 24 (>60 ml/min/1.73 sqM) 07/21/19 18:22 Glucose 226 mg/dL (74-99) H 07/21/19 18:22 POC Glucose (mg/dL) 273 mg/dL (75-99) H 07/22/19 08:02 POC Glu Outpatient Physical Therapist Assistant Merry Lopez 07/22/19 08:02 Calcium 8.9 mg/dL (8.4-10.2) 07/21/19 18:22 Magnesium 1.8 mg/dL (1.6-2.3) 07/21/19 18:22 Total Bilirubin 0.6 mg/dL (0.2-1.3) 07/21/19 18:22 AST 22 U/L (17-59) 07/21/19 18:22 ALT 26 U/L (4-49) 07/21/19 18:22 Alkaline Phosphatase 215 U/L (38-126) H 07/21/19 18:22 Troponin I 0.022 ng/mL (0.000-0.034) 07/22/19 06:13 Total Protein 6.5 g/dL (6.3-8.2) 07/21/19 18:22 Albumin 3.6 g/dL (3.5-5.0) 07/21/19 18:22 Triglycerides 261 mg/dL (<150) H 07/21/19 18:22 Cholesterol 167 mg/dL (<200) 07/21/19 18:22 LDL Cholesterol, Calc 74 mg/dL (0-99) 07/21/19 18:22 HDL Cholesterol 41 mg/dL (40-60) 07/21/19 18:22 Thrombosis Risk Factor Assmnt - Choose All That Apply Any of the Below Risk Factors Present?: Yes Each Factor Represents 1 point: Acute IA, Age 41-60 years, Obesity (BMI >25) Other Risk Factors: No Other congenital or acquired thrombophilia - If yes, enter type in comment: No Thrombosis Risk Factor Assessment Total Risk Factor Score: 3 Thrombosis Risk Factor Assessment Level: Moderate Risk Assessment and Plan Plan: 1. Chest pain, ruled out myocardial infarction, this happens each time especially during HD no relief with nitroglycerin, with 3 subsequent doses, atypical in nature, however I requested the patient to keep an eye on the blood pressure during HD, along with any tachycardia related to the hypotension. Patient was seen by cardiology, with cardiac troponins that are negative, follow-up with cardiology as an outpatient, Imdur is new during this admission patient is to take sublingual when necessary, outpatient follow-up with Dr. Bowie no opiates required during this admission, was not discharged on any opiates 2. End-stage renal disease on hemodialysis. Maintenance at Wednesday once in Wednesday schedule 3. CAD. Continue patient on metoprolol 12.5 mg orally twice every day, Lipitor 80 mg orally once every day, Plavix 75 mg daily. Imdur started 4. Paroxysmal atrial fibrillation. Continue Lopressor 12.5 mg twice daily, Eliquis 2.5 mg orally twice every day. 5. Hypertension and hypertensive cardiovascular disease. Continue patient on hydralazine 100 mg orally 3 times every day, metoprolol 12.5 mg orally twice every day. 6. Diabetes mellitus type 2. Continue patient on Lantus 30 units daily, along with a sliding scale insulin, continue Accu-Chek before each meal and at bedtime. 7. Diabetic neuropathy. Continue patient on Neurontin 400 at bedtime no changes made no opiates required 8. Diabetic retinopathy with right eye blindness and left eye legal blindness. Stable. 9. GERD. Continue patient on Protonix 40 mg orally once every day. 10. DVT prophylaxis. Continue with Eliquis. 11. GI process. Continue patient on PPI. 12. Patient's full code. Patient admitted to the hospital for a minimum of 2 nights day. Discharge plan: Home today. Discharge Medication List Clopidogrel [Plavix] 75 mg PO DAILY #30 tab 03/05/18 [Rx] Nitroglycerin Sl Tabs [Nitrostat] 0.4 mg SUBLINGUAL Q5M PRN #25 tab 03/05/18 [Rx] Insulin Glargine,Hum.rec.anlog [Basaglar Kwikpen U-100] 25 unit SQ BID 03/24/18 [History] Allopurinol [Zyloprim] 150 mg PO DAILY 08/05/18 [History] Calcium Acetate [PhosLo] 1,334 mg PO AC-TID 08/05/18 [History] Insulin Aspart [NovoLOG Flexpen] See Protocol SQ ACHS 08/05/18 [History] LORazepam [Ativan] 2 mg PO HS PRN 08/05/18 [History] Pantoprazole [Protonix] 40 mg PO AC-BRKFST #30 tablet. 08/11/18 [Rx] Apixaban [Eliquis] 2.5 mg PO BID #60 tablet 10/18/18 [Rx] Atorvastatin [Lipitor] 80 mg PO HS@2100 02/01/19 [History] hydrOXYzine HCL [Atarax] 100 mg PO TID PRN 02/01/19 [History] Gabapentin [Neurontin] 400 mg PO HS 04/11/19 [History] Amiodarone [Cordarone] 100 mg PO DAILY 04/13/19 [History] Furosemide [Lasix] 80 mg PO BID 04/13/19 [History] Metolazone [Zaroxolyn] 5 mg PO DAILY 04/13/19 [History] Metoprolol Tartrate [Lopressor] 25 mg PO QAM 04/13/19 [History] Triamcinolone 0.1% Ointment [Kenalog] 1 applic TOPICAL BID PRN 04/13/19 [History ] diphenhydrAMINE [Benadryl] 25 mg PO QID PRN 04/13/19 [History] Cetirizine HCl [Zyrtec] 15 mg PO QAM 05/30/20 [History] Isosorbide Mononitrate ER [Imdur] 30 mg PO DAILY #30 tab.er.24h 07/22/19 [Rx] Metoprolol Tartrate [Lopressor] 12.5 mg HS 07/22/19 [History] Follow-up with Mike in 1-2 days, cardiology Dr. Bowie in 1 week to 10 days keep appointments for HD scheduling
[2019-07-22] MEDS ORDERED: ATORVASTATIN 80 MG TAB PO SCH (21:00)
[2019-07-22] MEDS ORDERED: GABAPENTIN 100 MG CAP PO SCH (21:00)
[2019-07-22] MEDS ORDERED: METOPROLOL TARTRATE 12.5 MG TAB PO SCH (21:00)
[2019-07-23] MEDS ORDERED: PANTOPRAZOLE 40 MG TABLET PO SCH (07:30)
== END 2019-07-22 13:55 | disposition home or self-care (01) ==
LOC: EC 17:45 → 1SOBS 20:04
PROVIDERS: ADMIT Family Medicine; ATTEND Family Medicine
DX: R07.89 Other chest pain (principal); I25.10 Atherosclerotic heart disease of native coronary artery without angina pectoris; I25.2 Old myocardial infarction; Z99.2 Dependence on renal dialysis; K21.9 Gastro-esophageal reflux disease without esophagitis; H91.90 Unspecified hearing loss, unspecified ear; E78.5 Hyperlipidemia, unspecified; E11.40 Type 2 diabetes mellitus with diabetic neuropathy, unspecified; I48.0 Paroxysmal atrial fibrillation; E11.319 Type 2 diabetes mellitus with unspecified diabetic retinopathy without macular edema; E11.22 Type 2 diabetes mellitus with diabetic chronic kidney disease; I13.2 Hypertensive heart and chronic kidney disease with heart failure and with stage 5 chronic kidney disease, or end stage renal disease; I50.9 Heart failure, unspecified; N18.6 End stage renal disease; D64.9 Anemia, unspecified; G25.81 Restless legs syndrome; I25.82 Chronic total occlusion of coronary artery; F41.9 Anxiety disorder, unspecified; F32.9 Major depressive disorder, single episode, unspecified; R26.9 Unspecified abnormalities of gait and mobility; Z87.11 Personal history of peptic ulcer disease; Z95.5 Presence of coronary angioplasty implant and graft; H91.91 Unspecified hearing loss, right ear; H54.8 Legal blindness, as defined in USA; Z86.010 Personal history of colon polyps; Z79.899 Other long term (current) drug therapy; Z79.4 Long term (current) use of insulin; Z79.02 Long term (current) use of antithrombotics/antiplatelets; Z79.01 Long term (current) use of anticoagulants; Z88.8 Allergy status to other drugs, medicaments and biological substances; Z88.5 Allergy status to narcotic agent; Z88.1 Allergy status to other antibiotic agents; Z87.891 Personal history of nicotine dependence; Z80.8 Family history of malignant neoplasm of other organs or systems; Z82.49 Family history of ischemic heart disease and other diseases of the circulatory system; Z82.61 Family history of arthritis; Z83.3 Family history of diabetes mellitus; Z83.2 Family history of diseases of the blood and blood-forming organs and certain disorders involving the immune mechanism; Z91.14 Patient's other noncompliance with medication regimen; E66.9 Obesity, unspecified; Z68.32 Body mass index [BMI] 32.0-32.9, adult; Z11.59 Encounter for screening for other viral diseases
CPT/HCPCS: 93005 ×2; 99285; 36415; 80061; 80053; 83735; 84484 ×2; 85025; 85610; 85730; 71046; G0378 ×2; U0003

== ENCOUNTER 2019-11-03 17:02 | Emergency (ER) | payer MEDICARE, OTHER ==
[2019-11-03 18:16] VITALS: RESP 12
--- NOTE | 2019-11-03 18:17 | ED ---
General Adult HPI - General Chief complaint: Chest Pain Stated complaint: chest pain Time Seen by Provider: 11/03/19 17:37 Source: patient, RN notes reviewed, old records reviewed Mode of arrival: EMS Limitations: no limitations - History of Present Illness Initial comments: 59 yo male presenting with an episode of chest pain which began while the patie nt was receiving hemodialysis. He states he's had this symptom before when he was reaching his dry weight. He had approximately 1.2 L removed and then was given a small volume of IV fluid which improved his symptoms. His symptoms began approximately 30 minutes prior to arrival they have improved since that time. No significant dyspnea. No vomiting. No diaphoresis. He does have history of CAD with 2 stents. History of atrial fibrillation. - Related Data Home Medications Medication Instructions Recorded Confirmed Insulin Glargine,Hum.rec.anlog 25 unit SQ BID 03/24/18 07/22/19 [Basaglar Kwikpen U-100] Calcium Acetate [PhosLo] 1,334 mg PO AC-TID 08/05/18 07/22/19 Insulin Aspart [NovoLOG Flexpen] See Protocol SQ ACHS 08/05/18 07/22/19 LORazepam [Ativan] 2 mg PO HS PRN 08/05/18 07/22/19 allopurinoL [Zyloprim] 150 mg PO DAILY 08/05/18 07/22/19 Atorvastatin [Lipitor] 80 mg PO HS@2100 02/01/19 07/22/19 hydrOXYzine HCL [Atarax] 100 mg PO TID PRN 02/01/19 07/22/19 Gabapentin [Neurontin] 400 mg PO HS 04/11/19 07/22/19 Amiodarone [Cordarone] 100 mg PO DAILY 04/13/19 07/22/19 Furosemide [Lasix] 80 mg PO BID 04/13/19 07/22/19 Metoprolol Tartrate [Lopressor] 25 mg PO QAM 04/13/19 07/22/19 Triamcinolone 0.1% Ointment 1 applic TOPICAL BID PRN 04/13/19 07/22/19 [Kenalog] diphenhydrAMINE [Benadryl] 25 mg PO QID PRN 04/13/19 07/22/19 metOLazone [Zaroxolyn] 5 mg PO DAILY 04/13/19 07/22/19 Cetirizine HCl [Zyrtec] 15 mg PO QAM 07/22/19 07/22/19 Metoprolol Tartrate [Lopressor] 12.5 mg HS 07/22/19 07/22/19 Previous Rx's Medication Instructions Recorded Clopidogrel [Plavix] 75 mg PO DAILY #30 tab 03/05/18 Nitroglycerin Sl Tabs [Nitrostat] 0.4 mg SUBLINGUAL Q5M PRN #25 tab 03/05/18 Pantoprazole [Protonix] 40 mg PO AC-BRKFST #30 tablet. 08/11/18 Apixaban [Eliquis] 2.5 mg PO BID #60 tablet 10/18/18 Isosorbide Mononitrate ER [Imdur] 30 mg PO DAILY #30 tab.er.24h 07/22/19 Allergies Allergy/AdvReac Type Severity Reaction Status Date / Time bumetanide [From Bumex] Allergy Hallucinati Verified 04/11/19 17:53 ons spironolactone Allergy Hallucinati Verified 04/11/19 17:53 ons codeine AdvReac Hallucinati Verified 04/11/19 17:53 ons morphine AdvReac Confusion Verified 04/11/19 17:53 rivaroxaban [From Xarelto] AdvReac Bloody Nose Verified 04/14/19 07:10 All antibiotics except Keflex Allergy Unknown Uncoded 01/15/19 12:05 Childhood Review of Systems ROS Statement: Those systems with pertinent positive or pertinent negative responses have been documented in the HPI. ROS Other: All systems not noted in ROS Statement are negative. Past Medical History Past Medical History: Atrial Fibrillation, Coronary Artery Disease (CAD), Heart Failure, Diabetes Mellitus, Dialysis, Eye Disorder, GERD/Reflux, Hearing Disorder / Deafness, Hyperlipidemia, Hypertension, Myocardial Infarction ([place]), Renal Disease, Syncope Additional Past Medical History / Comment(s): IDDM type II, neuropathy bilateral hands/feet, ESRD with hemodialysis on // with last time being 10/14/18, chronic anemia, LVH, Afib with RVR, MIs, chronic CHF, R eye blindness, L eye legally blind, RLS, pt unsure if he has gout, vertigo at times, balance issues at times, stomach ulcer at age 17yrs, sinus problems, very [place] R ear. Last Myocardial Infarction Date:: 08/09/18 History of Any Multi-Drug Resistant Organisms: None Reported Past Surgical History: Heart Catheterization, Heart Catheterization With Stent Additional Past Surgical History / Comment(s): TTT, PD catheter placement/since removed, 2016 L arm fistula, fistula gram with balloon for stenosis, L eye vitrectomy, thyroid needle aspiration-negative, L leg cyst, colonoscopy with benign polypectomy. Past Anesthesia/Blood Transfusion Reactions: Postoperative Nausea & Vomiting (PONV) Date of Last Stent Placement:: 03-03-18 Past Psychological History: Anxiety, Depression Smoking Status: Never smoker Past Alcohol Use History: None Reported Past Drug Use History: None Reported - Past Family History Father Family Medical History: Cancer, Coronary Artery Disease (CAD), Hyperlipidemia Additional Family Medical History / Comment(s): ? BRAIN CANCER Mother Family Medical History: Diabetes Mellitus, Osteoarthritis (OA) Additional Family Medical History / Comment(s): DJD. MOM IS STILL ALIVE AT AGE 80 Sister(s) Family Medical History: Diabetes Mellitus Additional Family Medical History / Comment(s): Patient has one sister with diabetes mellitus type 2, SLE, MS. Brother(s) Family Medical History: Diabetes Mellitus Additional Family Medical History / Comment(s): Patient has 4 kids no major medical problems. Daughter(s) Family Medical History: No Reported History Additional Family Medical History / Comment(s): Patient has 2 daughters no major medical problems. Son(s) Family Medical History: No Reported History Additional Family Medical History / Comment(s): Patient has 2 sons no major medical problems. General Exam Limitations: no limitations General appearance: alert, in no apparent distress Head exam: Present: atraumatic, normocephalic Eye exam: Present: normal appearance, PERRL ENT exam: Present: normal exam Neck exam: Present: normal inspection. Absent: tenderness, meningismus Respiratory exam: Present: normal lung sounds bilaterally. Absent: respiratory distress, chest wall tenderness Cardiovascular Exam: Present: regular rate, normal rhythm GI/Abdominal exam: Present: soft. Absent: distended, tenderness, guarding Extremities exam: Present: normal inspection, normal capillary refill. Absent: pedal edema, calf tenderness Back exam: Present: normal inspection Neurological exam: Present: alert, oriented X3, CN II-XII intact. Absent: motor sensory deficit Psychiatric exam: Present: normal affect, normal mood Skin exam: Present: warm, dry, intact. Absent: cyanosis, diaphoretic Course Vital Signs 11/03/19 11/03/19 17:33 18:14 Temperature 98.2 F Pulse Rate 71 66 Respiratory 18 12 Rate Blood Pressure 183/84 173/81 O2 Sat by Pulse 99 100 Oximetry - Reevaluation(s) Reevaluation #1: 11/03/19 19:25 Patient remains chest pain-free while in the emergency department EKG Findings - EKG Comments: EKG Findings:: EKG: Normal sinus rhythm, left atrial enlargement, rate of 68, DE interval 152, QRS duration 96, QTC prolonged at 518, no ST segment elevation. Medical Decision Making - Medical Decision Making 59-year-old male presenting for evaluation of chest pain during dialysis. Patient's symptoms nearly resolved at the time my evaluation and he remains chest pain-free while workup is initiated in the emergency department. His EKG is negative for ST segment elevation. Chest x-ray shows no acute findings. He has some mild electrolyte abnormalities potassium is 3.3, this patient is on dialysis and this will not be treated. He has a creatinine of 2.15 after hemodialysis. His initial troponin is negative. I did prefer this patient be admitted for serial cardiac enzymes given the onset of his symptoms. He declines he prefers to be discharged home. He states he knows his symptoms and has had no further chest pain. He knows it was related to his hemodialysis. He is currently anticoagulated and on aspirin. He prefers discharge with outpatient follow-up. - Lab Data Result diagrams: 11/03/19 18:12 11/03/19 18:12 Lab Results 11/03/19 11/03/19 11/03/19 Range/Units 18:12 18:12 18:12 WBC 7.3 (3.8-10.6) k/uL RBC 4.72 (4.30-5.90) m/uL Hgb 12.3 L (13.0-17.5) gm/dL Hct 38.6 L (39.0-53.0) % MCV 81.8 (80.0-100.0) fL MCH 26.0 (25.0-35.0) pg MCHC 31.8 (31.0-37.0) g/dL RDW 16.5 H (11.5-15.5) % Plt Count 280 (150-450) k/uL Neutrophils % 72 % Lymphocytes % 12 % Monocytes % 5 % Eosinophils % 9 % Basophils % 1 % Neutrophils # 5.2 (1.3-7.7) k/uL Lymphocytes # 0.9 L (1.0-4.8) k/uL Monocytes # 0.4 (0-1.0) k/uL Eosinophils # 0.6 (0-0.7) k/uL Basophils # 0.1 (0-0.2) k/uL Anisocytosis Slight PT 9.5 (9.0-12.0) sec INR 0.9 (<1.2) APTT 24.6 (22.0-30.0) sec Sodium 134 L (137-145) mmol/L Potassium 3.3 L (3.5-5.1) mmol/L Chloride 92 L (98-107) mmol/L Carbon Dioxide 32 H (22-30) mmol/L Anion Gap 10 mmol/L BUN 18 (9-20) mg/dL Creatinine 2.15 H (0.66-1.25) mg/dL Est GFR (CKD-EPI)AfAm 37 (>60 ml/min/1.73 sqM) Est GFR (CKD-EPI)NonAf 32 (>60 ml/min/1.73 sqM) Glucose 186 H (74-99) mg/dL Calcium 9.3 (8.4-10.2) mg/dL Magnesium 1.9 (1.6-2.3) mg/dL Total Bilirubin 0.6 (0.2-1.3) mg/dL AST 26 (17-59) U/L ALT 26 (4-49) U/L Alkaline Phosphatase 188 H (38-126) U/L Troponin I (0.000-0.034) ng/mL Total Protein 7.7 (6.3-8.2) g/dL Albumin 4.3 (3.5-5.0) g/dL 11/03/19 Range/Units 18:12 WBC (3.8-10.6) k/uL RBC (4.30-5.90) m/uL Hgb (13.0-17.5) gm/dL Hct (39.0-53.0) % MCV (80.0-100.0) fL MCH (25.0-35.0) pg MCHC (31.0-37.0) g/dL RDW (11.5-15.5) % Plt Count (150-450) k/uL Neutrophils % % Lymphocytes % % Monocytes % % Eosinophils % % Basophils % % Neutrophils # (1.3-7.7) k/uL Lymphocytes # (1.0-4.8) k/uL Monocytes # (0-1.0) k/uL Eosinophils # (0-0.7) k/uL Basophils # (0-0.2) k/uL Anisocytosis PT (9.0-12.0) sec INR (<1.2) APTT (22.0-30.0) sec Sodium (137-145) mmol/L Potassium (3.5-5.1) mmol/L Chloride (98-107) mmol/L Carbon Dioxide (22-30) mmol/L Anion Gap mmol/L BUN (9-20) mg/dL Creatinine (0.66-1.25) mg/dL Est GFR (CKD-EPI)AfAm (>60 ml/min/1.73 sqM) Est GFR (CKD-EPI)NonAf (>60 ml/min/1.73 sqM) Glucose (74-99) mg/dL Calcium (8.4-10.2) mg/dL Magnesium (1.6-2.3) mg/dL Total Bilirubin (0.2-1.3) mg/dL AST (17-59) U/L ALT (4-49) U/L Alkaline Phosphatase (38-126) U/L Troponin I 0.023 (0.000-0.034) ng/mL Total Protein (6.3-8.2) g/dL Albumin (3.5-5.0) g/dL Disposition Clinical Impression: Chest pain Disposition: HOME SELF-CARE Condition: Fair Instructions (If sedation given, give patient instructions): Chest Pain (ED) Is patient prescribed a controlled substance at d/c from ED?: No Referrals: Ten Mckeon DO [Primary Care Provider] - 1-2 days Decision to Admit Reason: Admit from EC Decision Date: 11/03/19 Decision Time: 19:25
[2019-11-03 18:26] LABS: Anisocytosis Slight; Basophils # (A) 0.1 k/uL (0-0.2); Basophils % (A) 1 %; Eosinophils # (A) 0.6 k/uL (0-0.7); Eosinophils % (A) 9 %; HCT 38.6 % (39.0-53.0); HGB 12.3 gm/dL (13.0-17.5); Lymphocytes # (A) 0.9 k/uL (1.0-4.8); Lymphocytes % (A) 12 %; MCHC 31.8 g/dL (31.0-37.0); MCV 81.8 fL (80.0-100.0); Mean Platelet Volume 7.1; Monocytes # (A) 0.4 k/uL (0-1.0); Monocytes % (A) 5 %; Neutrophils # (A) 5.2 k/uL (1.3-7.7); Neutrophils % (A) 72 %; Platelet Count 280 k/uL (150-450); RBC 4.72 m/uL (4.30-5.90); RDW 16.5 % (11.5-15.5); WBC 7.3 k/uL (3.8-10.6)
[2019-11-03 18:35] LABS: INR 0.9 (<1.2); Partial Thromboplastin Time 24.6 sec (22.0-30.0); Prothrombin Time 9.5 sec (9.0-12.0)
[2019-11-03 18:38] LABS: Albumin 4.3 g/dL (3.5-5.0); Calcium 9.3 mg/dL (8.4-10.2); Magnesium 1.9 mg/dL (1.6-2.3); Potassium 3.3 mmol/L (3.5-5.1); Total Bilirubin 0.6 mg/dL (0.2-1.3); Total Protein 7.7 g/dL (6.3-8.2)
--- NOTE | 2019-11-03 18:39 | XR ---
EXAMINATION TYPE: XR chest 2V DATE OF EXAM: 11/03/2019 COMPARISON: 07/21/2019 HISTORY: Chest pain TECHNIQUE: FINDINGS: Heart and mediastinum are normal. Lungs are clear. Diaphragm is normal. There are chest kennedy ds. Bony thorax appears normal. IMPRESSION: Normal chest. No adverse change.
[2019-11-03 20:58] VITALS: BP 160/78; PULSE 60; TEMP 98.3
== END 2019-11-03 20:58 | disposition home or self-care (01) ==
LOC: EC 17:02
DX: R07.9 Chest pain, unspecified (principal); F41.9 Anxiety disorder, unspecified; F32.9 Major depressive disorder, single episode, unspecified; I25.10 Atherosclerotic heart disease of native coronary artery without angina pectoris; E11.22 Type 2 diabetes mellitus with diabetic chronic kidney disease; I13.2 Hypertensive heart and chronic kidney disease with heart failure and with stage 5 chronic kidney disease, or end stage renal disease; I50.9 Heart failure, unspecified; N18.6 End stage renal disease; E78.5 Hyperlipidemia, unspecified; I25.2 Old myocardial infarction; H54.8 Legal blindness, as defined in USA; E11.40 Type 2 diabetes mellitus with diabetic neuropathy, unspecified; Z79.4 Long term (current) use of insulin; Z79.899 Other long term (current) drug therapy; Z88.1 Allergy status to other antibiotic agents; Z88.5 Allergy status to narcotic agent; Z88.8 Allergy status to other drugs, medicaments and biological substances; Z99.2 Dependence on renal dialysis; Z95.5 Presence of coronary angioplasty implant and graft
CPT/HCPCS: 36415; 71046; 80053; 83735; 84484; 85025; 85610; 85730; 93005; 99285

== ENCOUNTER → 2019-11-23 | Outpatient (CLI) | payer MEDICARE, OTHER ==
--- NOTE | 2019-11-23 12:14 | XR ---
EXAMINATION TYPE: XR knee 4V RT DATE OF EXAM: 11/23/2019 CLINICAL HISTORY: pain TECHNIQUE: 4views of the right knee are obtained. COMPARISON: None. FINDINGS: There is no acute fracture/dislocation. The tri-compartment joint spaces appear within no rmal limits. The overlying soft tissue appears unremarkable. IMPRESSION: There is no acute fracture or dislocation.ICD 10 NO FRACTURE, INITIAL EVALUATION
== END | disposition home or self-care (01) ==
LOC: RADXRMAIN 11:41
PROVIDERS: ATTEND Family Medicine
DX: M25.561 Pain in right knee (principal)

== ENCOUNTER → 2020-02-07 | Outpatient (CLI) | payer MEDICARE, OTHER ==
[2020-02-07 09:34] VITALS: BP 198/71; PULSE 62; RESP 16; TEMP 98.4
--- NOTE | 2020-02-07 09:52 | P.PAINCN ---
History of Present Illness - Reason for Consult Consult date: 02/07/20 - History of Present Illness This is an initial consultation visit for this 59 years old male with a chronic history of severe numbness tingling sensation in the upper and lower extremity, started 5 years ago, the patient diagnosed with chronic renal failure and he was started on dialysis 2-1/2 years ago, his symptoms of numbness and burning sensation and numbness increased over time, and currently interfering with his q uality of life, is continuous, not related to any activity, and interfere with his ability to function, his currently on gabapentin 400 mg once a day and Ultram 50 mg every 8 hours when necessary, he denies any side effect of the medication he denies any excessive drowsiness or sleepiness, and he reported that the current medication is not helping to control his pain, he has difficulty sleeping at night secondary to his symptoms Past Medical History Past Medical History: Atrial Fibrillation, Coronary Artery Disease (CAD), Heart Failure, Diabetes Mellitus, Dialysis, Eye Disorder, GERD/Reflux, Hearing Disorder / Deafness, Hyperlipidemia, Hypertension, Myocardial Infarction ([place]), Renal Disease, Syncope Additional Past Medical History / Comment(s): IDDM type II, neuropathy bilateral hands/feet, ESRD with hemodialysis on // with last time being 10/14/18, chronic anemia, LVH, Afib with RVR, MIs, chronic CHF, R eye blindness, L eye legally blind, RLS, pt unsure if he has gout, vertigo at times, balance issues at times, stomach ulcer at age 17yrs, sinus problems, very [place] R ear. Last Myocardial Infarction Date:: 08/09/18 History of Any Multi-Drug Resistant Organisms: None Reported Past Surgical History: Heart Catheterization, Heart Catheterization With Stent Additional Past Surgical History / Comment(s): TTT, PD catheter placement/since removed, 2016 L arm fistula, fistula gram with balloon for stenosis, L eye vitrectomy, thyroid needle aspiration-negative, L leg cyst, colonoscopy with benign polypectomy. Past Anesthesia/Blood Transfusion Reactions: Postoperative Nausea & Vomiting (PONV) Date of Last Stent Placement:: 03-03-18 Past Psychological History: Anxiety, Depression Additional Psychological History / Comment(s): Pt resides with his spouse, AND SON. He is legally blind L eye and blind in R eye. He is very [place] in R ear. He has a cane and walker which he uses prn. His spouse and son drive. Pt uses glasses and a magnifier to read. He has depression which he states is constantly present but not increased. He denies thoughts/plans of suicide. Smoking Status: Former smoker Past Alcohol Use History: None Reported Additional Past Alcohol Use History / Comment(s): Pt started smoking in 1972 and quit in 1995. Past Drug Use History: None Reported - Past Family History Father Family Medical History: Cancer, Coronary Artery Disease (CAD), Hyperlipidemia Additional Family Medical History / Comment(s): Lung/BRAIN CANCER Mother Family Medical History: Diabetes Mellitus, Deep Vein Thrombosis (DVT), Osteoarthritis (OA) Additional Family Medical History / Comment(s): DJD Sister(s) Family Medical History: Diabetes Mellitus Additional Family Medical History / Comment(s): Patient has one sister with diabetes mellitus type 2, SLE, MS. Brother(s) Family Medical History: Diabetes Mellitus Additional Family Medical History / Comment(s): Patient has 4 kids no major medical problems. Daughter(s) Family Medical History: No Reported History Additional Family Medical History / Comment(s): Patient has 2 daughters no major medical problems. Son(s) Family Medical History: No Reported History Additional Family Medical History / Comment(s): Patient has 2 sons no major medical problems. Medications and Allergies Home Medications Medication Instructions Recorded Confirmed Type Clopidogrel [Plavix] 75 mg PO DAILY #30 tab 03/05/18 02/06/20 Rx Nitroglycerin Sl Tabs [Nitrostat] 0.4 mg SUBLINGUAL Q5M PRN #25 tab 03/05/18 02/06/20 Rx Insulin Glargine,Hum.rec.anlog 33 unit SQ DAILY 03/24/18 02/06/20 History [Basaglar Kwikpen U-100] Calcium Acetate [PhosLo] 2,668 mg PO AC-TID 08/05/18 02/06/20 History Insulin Aspart [NovoLOG Flexpen] See Protocol SQ ACHS 08/05/18 02/06/20 History LORazepam [Ativan] 2 mg PO TID 08/05/18 02/06/20 History allopurinoL [Zyloprim] 100 mg PO DAILY 08/05/18 02/06/20 History Pantoprazole [Protonix] 40 mg PO AC-BRKFST #30 tablet. 08/11/18 02/06/20 Rx Gabapentin [Neurontin] 400 mg PO HS 04/11/19 02/06/20 History Amiodarone [Cordarone] 100 mg PO DAILY 04/13/19 02/06/20 History Furosemide [Lasix] 80 mg PO BID 04/13/19 02/06/20 History Metoprolol Tartrate [Lopressor] 25 mg PO QAM 04/13/19 02/06/20 History Triamcinolone 0.1% Ointment 1 applic TOPICAL BID PRN 04/13/19 02/06/20 History [Kenalog] diphenhydrAMINE [Benadryl] 25 mg PO QID PRN 04/13/19 02/06/20 History metOLazone [Zaroxolyn] 5 mg PO DAILY 04/13/19 02/06/20 History Isosorbide Mononitrate ER [Imdur] 30 mg PO DAILY #30 tab.er.24h 07/22/19 02/06/20 Rx Metoprolol Tartrate [Lopressor] 12.5 mg PO HS 07/22/19 02/06/20 History Apixaban [Eliquis] 2.5 mg PO BID 02/06/20 02/06/20 History Aspirin [Adult Low Dose Aspirin EC] 81 mg PO DAILY 02/06/20 02/06/20 History Pioglitazone [Actos] 15 mg PO DAILY 02/06/20 02/06/20 History hydrALAZINE HCL [Apresoline] 25 mg PO DAILY PRN 02/06/20 02/06/20 History hydrOXYzine pamoate [Vistaril] 100 mg PO TID PRN 02/06/20 02/06/20 History traMADol HCL [Ultram] 50 mg PO TID PRN 02/06/20 02/06/20 History Allergies Allergy/AdvReac Type Severity Reaction Status Date / Time bumetanide [From Bumex] Allergy Hallucinati Verified 02/06/20 11:09 ons Penicillins Allergy Anaphylaxis Verified 02/06/20 11:09 spironolactone Allergy Hallucinati Verified 02/06/20 11:09 ons morphine AdvReac Confusion Verified 02/06/20 11:09 rivaroxaban [From Xarelto] AdvReac Bloody Nose Verified 02/06/20 11:09 All antibiotics except Keflex Allergy Unknown Uncoded 02/06/20 11:09 Childhood Physical Exam Vitals: Vital Signs Temp Pulse Resp BP Pulse Ox 02/07/20 09:15 98.4 F 62 16 198/71 99 Physical Examinations : -Constitutiona : Cooperative , not in acute distress . -HEENT : nech : supple , no Lymphadenopathy , normal thyroid size . - neurologic : Cranial nerve II to XII intact , no focal neurological deffecit . -psychatric : alert , oriented X 3 , appropriate affect , intact judgment and insight . -Lymphatic : no Lymphadenopathy . - musculoskeltal : Cervical Spine motor stregnth in the deltoid and biceps, normal right side , normal Left side motor stregnth biceps and the wrist extensors normal right side ,normal left side . motor stregnth in the triceps muscle . 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 Patient could benefit from increased Neurontin to 300 mg twice a day (currently he is on 400 mg once a day ) Continue with Ultram 50 mg every 8 hours when ne cessary. Patient signed narcotic agreement Risk and benefit of one discussed with the patient, I explained to the patient that once his pain under control and he will follow up with Dr. Mckeon for medication maintenance Time with Patient: Greater than 30 PQRS Measure Charge Sheet Measure #130: Documentation of Current Meds in Medical Chart: Patient's medications documented in chart Measure #226: Tobacco Use: Screen & Cessation Intervention: Pt not a tobacco user Measure #111: Pneumonia Vaccination: Pneumococcal vaccine NOT administered or previously given Measure #47: Advance Care Plan: Advance care planning discussed & documented, pt chose/unable to give Measure #412: Opioid Treatment Agreement: Documented signed opioid trtmnt agreemnt min once during opioid trtmnt Measure #408: Opioid Therapy Follow-up Evaluation: Patient had f/u eval minimum every 3 months during opioid therapy Measure #317: Preventitive Care & Scrn High Bld Press & F/U: Pre-hypertensive or hypertensive BP documented, pt will f/u with PCP Measure #128: Body Mass Index (BMI) Screening & Follow-up: BMI documented ABOVE normal parameters - f/u documented Measure #131: Pain Assessment & Follow-up: Pain positive & plan documented, Follow-up scheduled Measure #431: Unhealthy Alcohol Use Preventative Care & Scrn: Patient not identified as an unhealthy alcohol user PQRS Narrative: Smoking Status Former smoker Blood Pressure 198/71 Pain Intensity [Bilateral Hand 5 ] Pain Intensity [Lower Back] 6 Hx Alcohol Use (MH) No Home Medications: Ambulatory Orders Clopidogrel [Plavix] 75 mg PO DAILY #30 tab 03/05/18 Nitroglycerin Sl Tabs [Nitrostat] 0.4 mg SUBLINGUAL Q5M PRN #25 tab 03/05/18 Insulin Glargine,Hum.rec.anlog [Basaglar Kwikpen U-100] 33 unit SQ DAILY 03/24/18 Calcium Acetate [PhosLo] 2,668 mg PO AC-TID 08/05/18 Insulin Aspart [NovoLOG Flexpen] See Protocol SQ ACHS 08/05/18 LORazepam [Ativan] 2 mg PO TID 08/05/18 allopurinoL [Zyloprim] 100 mg PO DAILY 08/05/18 Pantoprazole [Protonix] 40 mg PO AC-BRKFST #30 tablet.dr 08/11/18 Gabapentin [Neurontin] 400 mg PO HS 04/11/19 Amiodarone [Cordarone] 100 mg PO DAILY 04/13/19 Furosemide [Lasix] 80 mg PO BID 04/13/19 Metoprolol Tartrate [Lopressor] 25 mg PO QAM 04/13/19 Triamcinolone 0.1% Ointment [Kenalog] 1 applic TOPICAL BID PRN 04/13/19 diphenhydrAMINE [Benadryl] 25 mg PO QID PRN 04/13/19 metOLazone [Zaroxolyn] 5 mg PO DAILY 04/13/19 Isosorbide Mononitrate ER [Imdur] 30 mg PO DAILY #30 tab.er.24h 07/22/19 Metoprolol Tartrate [Lopressor] 12.5 mg PO HS 07/22/19 Apixaban [Eliquis] 2.5 mg PO BID 02/06/20 Aspirin [Adult Low Dose Aspirin EC] 81 mg PO DAILY 02/06/20 Pioglitazone [Actos] 15 mg PO DAILY 02/06/20 hydrALAZINE HCL [Apresoline] 25 mg PO DAILY PRN 02/06/20 hydrOXYzine pamoate [Vistaril] 100 mg PO TID PRN 02/06/20 traMADol HCL [Ultram] 50 mg PO TID PRN 02/06/20
== END | disposition home or self-care (01) ==
LOC: PNWHC3 09:06
PROVIDERS: ATTEND Specialist
DX: G62.9 Polyneuropathy, unspecified (principal); N18.9 Chronic kidney disease, unspecified; E11.22 Type 2 diabetes mellitus with diabetic chronic kidney disease; I50.9 Heart failure, unspecified; I25.10 Atherosclerotic heart disease of native coronary artery without angina pectoris; I48.91 Unspecified atrial fibrillation; Z79.891 Long term (current) use of opiate analgesic; Z88.0 Allergy status to penicillin; Z88.5 Allergy status to narcotic agent; Z88.8 Allergy status to other drugs, medicaments and biological substances; Z79.82 Long term (current) use of aspirin; Z79.899 Other long term (current) drug therapy; Z79.4 Long term (current) use of insulin
CPT/HCPCS: 99211

== ENCOUNTER 2020-02-17 14:53 | Inpatient (IN) | payer MEDICARE, OTHER ==
[2020-02-17] MEDS ORDERED: HYDROmorphone 1 MG/ML 1 ML SYRINGE IVP STA (15:48)
--- NOTE | 2020-02-17 16:18 | ED ---
Chest Pain HPI - General Chief Complaint: Chest Pain Stated Complaint: Chest pain Time Seen by Provider: 02/17/20 15:10 Source: patient, EMS Mode of arrival: EMS Limitations: no limitations - History of Present Illness Initial Comments: Patient is a 59-year-old male with past medical history of hypertension, diabetes, end-stage renal disease on hemodialysis who presents to the emergency department with reported chest pain. The patient does normally have his dialysis on Wednesday, Wednesday and Wednesday. Patient did have dialysis today due to the holiday. States he did not miss any sessions. During his session today he got through approximally half of it when he began having chest pain. States it is over his left chest wall without radiation. Denies any provocative factors. Does admit to mild shortness of breath. No fevers, chills, cough. No hemoptysis. He does have a previous history of cardiac disease and has 2 stents in his heart. Denies history of DVT or PE. Reports that his lower extremity swelling has been worse than normal due to his poor diet. He denies any numbness, tingling or weakness in his extremities. No other alleviating, precipitating or modifying factors - Related Data Home Medications Medication Instructions Recorded Confirmed Insulin Glargine,Hum.rec.anlog 33 unit SQ DAILY 03/24/18 02/17/20 [Basaglar Kwikpen U-100] Calcium Acetate [PhosLo] 1,334 mg PO AC-TID PRN 08/05/18 02/17/20 Insulin Aspart [NovoLOG Flexpen] See Protocol SQ ACHS 08/05/18 02/17/20 LORazepam [Ativan] 2 mg PO TID PRN 08/05/18 02/17/20 Amiodarone [Cordarone] 100 mg PO DAILY 04/13/19 02/17/20 Furosemide [Lasix] 80 mg PO DAILY 04/13/19 02/17/20 Metoprolol Tartrate [Lopressor] 25 mg PO DAILY 04/13/19 02/17/20 Triamcinolone 0.1% Ointment 1 applic TOPICAL BID PRN 04/13/19 02/17/20 [Kenalog] metOLazone [Zaroxolyn] 5 mg PO DAILY 04/13/19 02/17/20 Apixaban [Eliquis] 2.5 mg PO BID 02/06/20 02/17/20 Pioglitazone [Actos] 15 mg PO DAILY 02/06/20 02/17/20 hydrALAZINE HCL [Apresoline] 50 mg PO TID 02/06/20 02/19/20 hydrOXYzine pamoate [Vistaril] 100 mg PO TID PRN 02/06/20 02/17/20 traMADol HCL [Ultram] 50 mg PO TID PRN 02/06/20 02/17/20 Allopurinol [Zyloprim] 100 mg PO DAILY 02/17/20 02/17/20 Gabapentin 300 mg PO BID 02/17/20 02/17/20 Losartan [Cozaar] 50 mg PO HS 02/17/20 02/17/20 Metoprolol Tartrate [Lopressor] 12.5 mg PO HS 02/17/20 02/17/20 Nitroglycerin Sl Tabs [Nitrostat] 0.4 mg SL Q5M PRN 02/17/20 02/17/20 Pantoprazole [Protonix] 40 mg PO DAILY 02/17/20 02/17/20 Previous Rx's Medication Instructions Recorded Clopidogrel [Plavix] 75 mg PO DAILY #30 tab 03/05/18 Isosorbide Mononitrate ER [Imdur] 30 mg PO DAILY #30 tab.er.24h 07/22/19 Allergies Allergy/AdvReac Type Severity Reaction Status Date / Time bumetanide [From Bumex] Allergy Hallucinati Verified 02/17/20 17:29 ons Penicillins Allergy Anaphylaxis Verified 02/17/20 17:29 spironolactone Allergy Hallucinati Verified 02/17/20 17:29 ons morphine AdvReac Confusion Verified 02/17/20 17:29 rivaroxaban [From Xarelto] AdvReac Bloody Nose Verified 02/17/20 17:29 All antibiotics except Keflex Allergy Unknown Uncoded 02/17/20 17:29 Childhood Review of Systems ROS Statement: Those systems with pertinent positive or pertinent negative responses have been documented in the HPI. ROS Other: All systems not noted in ROS Statement are negative. EKG Findings - EKG Comments: EKG Findings:: EKG demonstrates normal sinus rhythm with a ventricular rate of 61. [place] interval 136. QRS 92. QTC of 440. Significant baseline artifact. No acute ST segment elevation Past Medical History Past Medical History: Atrial Fibrillation, Coronary Artery Disease (CAD), Heart Failure, Diabetes Mellitus, Dialysis, Eye Disorder, GERD/Reflux, Hearing Disorder / Deafness, Hyperlipidemia, Hypertension, Myocardial Infarction ([place]), Renal Disease, Syncope Additional Past Medical History / Comment(s): IDDM type II, neuropathy bilateral hands/feet, ESRD with hemodialysis on M/W/F with last time being 10/14/18, chronic anemia, LVH, Afib with RVR, MIs, chronic CHF, R eye blindness, L eye legally blind, RLS, pt unsure if he has gout, vertigo at times, balance issues at times, stomach ulcer at age 17yrs, sinus problems, very [place] R ear. Last Myocardial Infarction Date:: 08/09/18 History of Any Multi-Drug Resistant Organisms: None Reported Past Surgical History: Heart Catheterization, Heart Catheterization With Stent Additional Past Surgical History / Comment(s): TTT, PD catheter placement/since removed, 2016 L arm fistula, fistula gram with balloon for stenosis, L eye vitrectomy, thyroid needle aspiration-negative, L leg cyst, colonoscopy with benign polypectomy. Past Anesthesia/Blood Transfusion Reactions: Postoperative Nausea & Vomiting (PONV) Date of Last Stent Placement:: 03-03-18 Past Psychological History: Anxiety, Depression Smoking Status: Former smoker Past Alcohol Use History: None Reported Past Drug Use History: None Reported - Past Family History Father Family Medical History: Cancer, Coronary Artery Disease (CAD), Hyperlipidemia Additional Family Medical History / Comment(s): Lung/BRAIN CANCER Mother Family Medical History: Diabetes Mellitus, Deep Vein Thrombosis (DVT), Osteoarthritis (OA) Additional Family Medical History / Comment(s): DJD Sister(s) Family Medical History: Diabetes Mellitus Additional Family Medical History / Comment(s): Patient has one sister with diabetes mellitus type 2, SLE, MS. Brother(s) Family Medical History: Diabetes Mellitus Additional Family Medical History / Comment(s): Patient has 4 kids no major medical problems. Daughter(s) Family Medical History: No Reported History Additional Family Medical History / Comment(s): Patient has 2 daughters no major medical problems. Son(s) Family Medical History: No Reported History Additional Family Medical History / Comment(s): Patient has 2 sons no major medical problems. General Exam Limitations: no limitations General appearance: alert, in no apparent distress Head exam: Present: atraumatic, normocephalic, normal inspection Eye exam: Present: normal appearance, PERRL, EOMI. Absent: scleral icterus, conjunctival injection, periorbital swelling ENT exam: Present: normal exam, mucous membranes moist Neck exam: Present: normal inspection. Absent: tenderness, meningismus, lymphadenopathy Respiratory exam: Present: normal lung sounds bilaterally. Absent: respiratory distress, wheezes, rales, rhonchi, stridor Cardiovascular Exam: Present: regular rate, normal rhythm, normal heart sounds. Absent: systolic murmur, diastolic murmur, rubs, gallop, clicks GI/Abdominal exam: Present: soft, normal bowel sounds. Absent: distended, tenderness, guarding, rebound, rigid Extremities exam: Present: normal inspection, full ROM, normal capillary refill. Absent: tenderness, pedal edema, joint swelling, calf tenderness Back exam: Present: normal inspection Neurological exam: Present: alert, oriented X3, CN II-XII intact Psychiatric exam: Present: normal affect, normal mood Skin exam: Present: warm, dry, intact, normal color. Absent: rash Course Vital Signs 02/17/20 02/17/20 02/17/20 15:10 15:15 18:04 Temperature 98 F 98.4 F Pulse Rate 61 61 Pulse Rate [ 68 Pulse Oximetery ] Respiratory 18 18 18 Rate Blood Pressure 131/64 Blood Pressure 175/88 [Right Arm Sitting] O2 Sat by Pulse 96 99 97 Oximetry 02/17/20 18:47 Temperature 97.6 F Pulse Rate 64 Pulse Rate [ Pulse Oximetery ] Respiratory 18 Rate Blood Pressure 169/81 Blood Pressure [Right Arm Sitting] O2 Sat by Pulse 97 Oximetry Chest Pain MDM - MDM Upon arrival the patient was placed into room 8. A thorough history and physical exam was performed. 12-lead EKG was performed. Laboratory studies were conducted. Patient was given a dose of Dilaudid and ASA for chest pain. X-ray studies are reviewed and demonstrates a troponin of 0.036. BNP 8690. G lucose is 437. Chest x-ray demonstrates no active cardio primary disease. I discussed results with the patient. He is pain-free at this time. Did recommend admission orders from the patient's troponins. Patient agreed to this. Discussed the case with Dr. Christian who agreed to admit the patient. Patient transferred to the floor in stable condition Disposition Clinical Impression: Chest pain, NSTEMI (non-ST elevated myocardial infarction), Dialysis patient Disposition: ADMITTED IP TO THIS HOSP Condition: Stable Is patient prescribed a controlled substance at d/c from ED?: No Decision to Admit Reason: Admit from EC Decision Date: 02/17/20 Decision Time: 17:34
--- NOTE | 2020-02-17 16:20 | XR ---
EXAMINATION TYPE: XR chest 2V DATE OF EXAM: 02/17/2020 COMPARISON: 11/03/2019 HISTORY: Chest pain There is no heart failure nor confluent pneumonic infiltrate. Costophrenic angles are clear. Thoraci c aorta is atheromatous. There are chest leads. IMPRESSION: No active cardiopulmonary disease. Normal heart. No change.
[2020-02-17 16:22] LABS: Basophils # (A) 0.2 k/uL (0-0.2); Basophils % (A) 2 %; Eosinophils # (A) 0.6 k/uL (0-0.7); Eosinophils % (A) 7 %; HCT 35.2 % (39.0-53.0); HGB 11.8 gm/dL (13.0-17.5); Lymphocytes # (A) 0.9 k/uL (1.0-4.8); Lymphocytes % (A) 10 %; MCHC 33.6 g/dL (31.0-37.0); MCV 80.4 fL (80.0-100.0); Mean Platelet Volume 6.9; Monocytes # (A) 0.5 k/uL (0-1.0); Monocytes % (A) 5 %; Neutrophils # (A) 6.6 k/uL (1.3-7.7); Neutrophils % (A) 73 %; Platelet Count 223 k/uL (150-450); RBC 4.37 m/uL (4.30-5.90); RDW 13.5 % (11.5-15.5)
[2020-02-17 16:29] LABS: INR 0.9 (<1.2); Prothrombin Time 9.7 sec (9.0-12.0)
[2020-02-17 16:31] LABS: Albumin 3.9 g/dL (3.5-5.0); Calcium 9.2 mg/dL (8.4-10.2); Magnesium 1.9 mg/dL (1.6-2.3); Potassium 4.4 mmol/L (3.5-5.1); Total Bilirubin 0.5 mg/dL (0.2-1.3); Total Protein 6.9 g/dL (6.3-8.2)
[2020-02-17] MEDS ORDERED: INSULIN REGULAR 100 UNIT/ML VIAL IV ONE (16:59)
[2020-02-17] MEDS ORDERED: NALOXONE 0.4 MG/ML 1 ML VIAL IV PRN (17:34)
[2020-02-17] MEDS ORDERED: ASPIRIN 325 MG TAB PO STA (18:39)
[2020-02-17] MEDS ORDERED: LORazepam 1 MG TAB PO PRN (19:22)
[2020-02-17] MEDS ORDERED: CALCIUM ACETATE 667 MG TAB PO PRN (19:22)
[2020-02-17] MEDS: GABAPENTIN 300 MG CAP PO SCH (20:31)
[2020-02-17] MEDS: METOPROLOL TARTRATE 12.5 MG TAB PO SCH (20:31)
[2020-02-17] MEDS: LOSARTAN 50 MG TAB PO SCH (20:32)
[2020-02-17] MEDS: APIXABAN 2.5 MG TABLET PO SCH (20:32)
[2020-02-17] MEDS: hydrALAZINE HCL 25 MG TAB PO SCH (20:32)
[2020-02-17] MEDS: INSULIN ASPART (NovoLOG) 100 UNIT/ML VIAL SQ SCH (20:35)
[2020-02-18] MEDS: INSULIN ASPART (NovoLOG) 100 UNIT/ML VIAL SQ SCH ×4 (06:20→21:13)
[2020-02-18] MEDS: INSULIN DETEMIR (LEVEMIR) 100 UNIT/ML SYR SQ SCH (06:20)
[2020-02-18] MEDS: metOLazone 5 MG TAB PO SCH (09:24)
[2020-02-18] MEDS: AMIODARONE 100 MG TAB PO SCH (09:24)
[2020-02-18] MEDS: GABAPENTIN 300 MG CAP PO SCH (09:24)
[2020-02-18] MEDS: FUROSEMIDE 80 MG TAB PO SCH (09:24)
[2020-02-18] MEDS: ISOSORBIDE MONONITRATE ER 30 MG TAB.ER.24H PO SCH (09:25)
[2020-02-18] MEDS: METOPROLOL TARTRATE 25 MG TAB PO SCH (09:25)
[2020-02-18] MEDS: allopurinoL 100 MG TAB PO SCH (09:25)
[2020-02-18] MEDS: hydrALAZINE HCL 25 MG TAB PO SCH ×3 (09:25→21:13)
[2020-02-18] MEDS: PANTOPRAZOLE 40 MG TABLET PO SCH (09:25)
[2020-02-18] MEDS: traMADol 50 MG TAB PO PRN (09:25)
[2020-02-18] MEDS: PIOGLITAZONE 15 MG TAB PO SCH (09:25)
[2020-02-18] MEDS: CLOPIDOGREL 75 MG TAB PO SCH (09:26)
[2020-02-18] MEDS: APIXABAN 2.5 MG TABLET PO SCH ×2 (09:26→21:13)
[2020-02-18] MEDS: DULoxetine HCL 60 MG CAPSULE.DR PO SCH ×2 (09:26→09:32)
[2020-02-18 09:34] LABS: Basophils # (A) 0.1 k/uL (0-0.2); Basophils % (A) 1 %; Eosinophils # (A) 0.4 k/uL (0-0.7); Eosinophils % (A) 4 %; HCT 37.1 % (39.0-53.0); HGB 11.9 gm/dL (13.0-17.5); Lymphocytes # (A) 0.8 k/uL (1.0-4.8); Lymphocytes % (A) 7 %; MCH 26.2 pg (25.0-35.0); MCV 81.9 fL (80.0-100.0); Mean Platelet Volume 7.5; Monocytes # (A) 0.4 k/uL (0-1.0); Monocytes % (A) 4 %; Neutrophils # (A) 8.4 k/uL (1.3-7.7); Neutrophils % (A) 82 %; Platelet Count 226 k/uL (150-450); RBC 4.53 m/uL (4.30-5.90); RDW 13.6 % (11.5-15.5); WBC 10.3 k/uL (3.8-10.6)
[2020-02-18 09:41] LABS: Glucose,Whole Blood 74 mg/dL (75-99)
[2020-02-18 09:41] LABS: Glucose,Whole Blood 98 mg/dL (75-99)
[2020-02-18 09:49] LABS: Calcium 9.5 mg/dL (8.4-10.2); Potassium 4.3 mmol/L (3.5-5.1)
[2020-02-18] MEDS ORDERED: AMINOPHYLLINE 500 MG/20 ML VIAL IV PRN (10:26)
[2020-02-18] MEDS ORDERED: CAFFEINE CITRATE 60 MG/3 ML VIAL IV PRN (10:26)
--- NOTE | 2020-02-18 10:34 | P.NPCON ---
History of Present Illness - Reason for Consult end stage renal disease - History of Present Illness Reason for consultation: End-stage renal disease History of present illness: Patient is a 59-year-old male seen in renal consultation for end-stage renal disease. He is maintained on hemodialysis on Wednesday schedule. He went for hemodialysis yesterday and received half of his treatment. He had developed chest discomfort and was given a dose of nitro without any relief. He was subsequently sent to the hospital. Patient states he got Dilaudid and felt better. Currently he feels fine. He denies any shortness of breath. Blood pressure stable. Denies dizziness or syncopal episodes. No fever or chills. No vomiting or diarrhea. Oral intake is good. No evidence of fluid overload on chest x-ray. Vital signs are stable. General: The patient appeared well nourished and normally developed. HEENT: Head exam is unremarkable. Neck is without jugular venous distension. LUNGS: Breath sounds decreased. HEART: Rate and Rhythm are regular. ABDOMEN: Soft, nontender. EXTREMITITES: 1+ edema. Past Medical History Past Medical History: Atrial Fibrillation, Coronary Artery Disease (CAD), Heart Failure, Diabetes Mellitus, Dialysis, Eye Disorder, GERD/Reflux, Hearing Disorder / Deafness, Hyperlipidemia, Hypertension, Myocardial Infarction ([place]), Renal Disease, Syncope Additional Past Medical History / Comment(s): IDDM type II, neuropathy bilateral hands/feet, ESRD with hemodialysis on // with last time being 10/14/18, chronic anemia, LVH, Afib with RVR, MIs, chronic CHF, R eye blindness, L eye legally blind, RLS, pt unsure if he has gout, vertigo at times, balance issues at times, stomach ulcer at age 17yrs, sinus problems, very [place] R ear. Last Myocardial Infarction Date:: 08/09/18 History of Any Multi-Drug Resistant Organisms: None Reported Past Surgical History: Heart Catheterization, Heart Catheterization With Stent Additional Past Surgical History / Comment(s): TTT, PD catheter placement/since removed, 2016 L arm fistula, fistula gram with balloon for stenosis, L eye vitrectomy, thyroid needle aspiration-negative, L leg cyst, colonoscopy with benign polypectomy. Past Anesthesia/Blood Transfusion Reactions: Postoperative Nausea & Vomiting (PONV) Date of Last Stent Placement:: 03-03-18 Past Psychological History: Anxiety, Depression Smoking Status: Former smoker Past Alcohol Use History: None Reported Past Drug Use History: None Reported - Past Family History Father Family Medical History: Cancer, Coronary Artery Disease (CAD), Hyperlipidemia Additional Family Medical History / Comment(s): Lung/BRAIN CANCER Mother Family Medical History: Diabetes Mellitus, Deep Vein Thrombosis (DVT), Osteoarthritis (OA) Additional Family Medical History / Comment(s): DJD Sister(s) Family Medical History: Diabetes Mellitus Additional Family Medical History / Comment(s): Patient has one sister with diabetes mellitus type 2, SLE, MS. Brother(s) Family Medical History: Diabetes Mellitus Additional Family Medical History / Comment(s): Patient has 4 kids no major medical problems. Daughter(s) Family Medical History: No Reported History Additional Family Medical History / Comment(s): Patient has 2 daughters no major medical problems. Son(s) Family Medical History: No Reported History Additional Family Medical History / Comment(s): Patient has 2 sons no major medical problems. Medications and Allergies Home Medications Medication Instructions Recorded Confirmed Type Clopidogrel [Plavix] 75 mg PO DAILY #30 tab 03/05/18 02/17/20 Rx Insulin Glargine,Hum.rec.anlog 33 unit SQ DAILY 03/24/18 02/17/20 History [Basaglar Kwikpen U-100] Calcium Acetate [PhosLo] 1,334 mg PO AC-TID PRN 08/05/18 02/17/20 History Insulin Aspart [NovoLOG Flexpen] See Protocol SQ ACHS 08/05/18 02/17/20 History LORazepam [Ativan] 2 mg PO TID PRN 08/05/18 02/17/20 History Amiodarone [Cordarone] 100 mg PO DAILY 04/13/19 02/17/20 History Furosemide [Lasix] 80 mg PO DAILY 04/13/19 02/17/20 History Metoprolol Tartrate [Lopressor] 25 mg PO DAILY 04/13/19 02/17/20 History Triamcinolone 0.1% Ointment 1 applic TOPICAL BID PRN 04/13/19 02/17/20 History [Kenalog] metOLazone [Zaroxolyn] 5 mg PO DAILY 04/13/19 02/17/20 History Isosorbide Mononitrate ER [Imdur] 30 mg PO DAILY #30 tab.er.24h 07/22/19 02/17/20 Rx Apixaban [Eliquis] 2.5 mg PO BID 02/06/20 02/17/20 History Pioglitazone [Actos] 15 mg PO DAILY 02/06/20 02/17/20 History hydrALAZINE HCL [Apresoline] 25 mg PO TID 02/06/20 02/17/20 History hydrOXYzine pamoate [Vistaril] 100 mg PO TID PRN 02/06/20 02/17/20 History traMADol HCL [Ultram] 50 mg PO TID PRN 02/06/20 02/17/20 History Allopurinol [Zyloprim] 100 mg PO DAILY 02/17/20 02/17/20 History Gabapentin 300 mg PO BID 02/17/20 02/17/20 History Losartan [Cozaar] 50 mg PO HS 02/17/20 02/17/20 History Metoprolol Tartrate [Lopressor] 12.5 mg PO HS 02/17/20 02/17/20 History Nitroglycerin Sl Tabs [Nitrostat] 0.4 mg SL Q5M PRN 02/17/20 02/17/20 History Pantoprazole [Protonix] 40 mg PO DAILY 02/17/20 02/17/20 History Allergies Allergy/AdvReac Type Severity Reaction Status Date / Time bumetanide [From Bumex] Allergy Hallucinati Verified 02/17/20 17:29 ons Penicillins Allergy Anaphylaxis Verified 02/17/20 17:29 spironolactone Allergy Hallucinati Verified 02/17/20 17:29 ons morphine AdvReac Confusion Verified 02/17/20 17:29 rivaroxaban [From Xarelto] AdvReac Bloody Nose Verified 02/17/20 17:29 All antibiotics except Keflex Allergy Unknown Uncoded 02/17/20 17:29 Childhood Physical Exam Vitals: Vital Signs Temp Pulse Pulse Resp BP BP Pulse Ox 02/18/20 03:17 62 18 145/67 97 02/18/20 02:00 55 L 18 02/18/20 00:00 98.2 F 55 L 18 151/80 95 02/17/20 22:09 68 18 02/17/20 18:47 97.6 F 64 18 169/81 97 02/17/20 18:04 98.4 F 68 18 175/88 97 02/17/20 15:15 61 18 99 02/17/20 15:10 98 F 61 18 131/64 96 Intake and Output 02/17/20 02/18/20 02/18/20 22:59 06:59 14:59 Intake Total 120 Output Total 100 Balance 20 Intake: Oral 120 Output: Urine 100 Other: Weight 100 kg 87.5 kg Results - Lab Results Most recent lab results Calcium 9.5 mg/dL (8.4-10.2) 02/18/20 09:25 Magnesium 1.9 mg/dL (1.6-2.3) 02/17/20 15:15 02/18/20 09:25 02/18/20 09:25 Assessment and Plan Plan: Assessment: 1. End-stage renal disease maintained on hemodialysis on Wednesday schedule. 2. Chest discomfort. Cardiology consulted. 3. Hypertension with chronic kidney disease. Stable. 4. Diabetes mellitus. 5. History of A. fib maintained on oral amiodarone, metoprolol as well as anticoagulation. 6. Chronic kidney disease mineral bone disease maintained on PhosLo. plan: Patient refusing hemodialysis today. Plan for treatment tomorrow. Decrease dose of gabapentin to 300 mg once daily. Dry with will be increased by 1 kg. Thank you for the consultation. I will continue to follow the patient with you during his hospital stay.
--- NOTE | 2020-02-18 11:19 | P.CRDCN ---
History of Present Illness Consult date: 02/18/20 History of present illness: CHIEF COMPLAINT: Chest pain HISTORY OF PRESENT ILLNESS: This is a 59-year-old male with a past medical history significant for hypertension, hyperlipidemia, diabetes mellitus, paroxysmal atrial fibrillation, end-stage renal disease on hemodialysis, and coronary artery disease with previous stent placement 2. Patient follows in the office with Dr. Bowie. We have been asked to see the patient in consultation for chest pain. Patient examined this morning at the bedside. Patient states he was at hemodialysis yesterday and was taking a nap. He woke up from his nap and began having a stabbing sensation underneath his left breast. He denies any radiation of the pain. He states he has never experienced pain like this before. He states he took 2 sublingual nitro and then came to the emergency room for further evaluation. He states the pain was worse with deep inspiration. This morning he reports tenderness with palpation of the chest wall. At the time of examination this morning, the patient is not having any chest discomfort. Patient underwent cardiac catheterization in January 2019 revealing chronic total occlusion of RCA which was previously known, patent stent in the left ci rcumflex, patent stent in the proximal LAD. There was an intermediate lesion involving the mid LAD in the range of 50-60% that appeared unchanged from previous. DIAGNOSTICS: EKG reveals sinus rhythm with nonspecific ST changes, no acute signs of ischemia when compared to old EKG Chest xray no active cardiopulmonary disease Laboratory data: WBC 10.3. Hemoglobin 11.9. Platelet count 226. Sodium 135. Potassium 4.3. BUN 58. Creatinine 4.48. Troponin 0.036. 0.034. 0.038. Current home cardiac medications include Zaroxolyn 5 mg daily, metoprolol 25 mg in the morning and 12.5 mg at night, Cozaar 50 mg daily, Imdur 30 mg daily, Lasix 80 mg daily on the Plavix 35 mg daily, Eliquis 2.5 mg twice a day, and amiodarone 100 mg daily. REVIEW OF SYSTEMS: At the time of my exam: CONSTITUTIONAL: Denies fever or chills. HEENT: Denies blurred vision, vision changes, or eye pain. Denies hemoptysis CARDIOVASCULAR: Denies chest pain, orthopnea, PND or palpitations RESPIRATORY: No shortness of breath. GASTROINTESTINAL: Denies abdominal pain. Denies nausea or vomiting. HEMATOLOGIC: Denies bleeding disorders. GENITOURINARY: Denies any blood in urine. SKIN: Denies pruitis. Denies rash. PHYSICAL EXAM: VITAL SIGNS: Reviewed. GENERAL: Well-developed in no acute distress. HEENT: Head is normocephalic. Pupils are equal, round. Sclerae anicteric. Mucous membranes of the mouth are moist. Neck supple. No JVD or thyromegaly LUNGS: Respirations even and unlabored. Lungs diminished. HEART: Regular rate and rhythm. S1 and S2 heard. Patient with left-sided chest wall tenderness with palpation. ABDOMEN: Soft. Nondistended. Nontender. EXTREMITIES: Normal range of motion. No clubbing or cyanosis. Peripheral pulses intact. No lower extremity edema NEUROLOGIC: Awake and alert. Oriented x 3. ASSESSMENT: Chest pain, with some typical and atypical features Mildly abnormal troponins, may be secondary to CKD Coronary artery disease with previous PCI to LAD and circumflex Paroxysmal atrial fibrillation, on long-term anticoagulation with Eliquis End-stage renal disease on hemodialysis Hypertension Hyperlipidemia Diabetes mellitus, type II PLAN: Resume home cardiac medications Obtain 2-D echo to assess cardiac structure and function Patient to undergo Lexiscan stress test tomorrow to assess for reversible ischemia Nurse practitioner note has been reviewed by physician. Signing provider agrees with the documented findings, assessment, and plan of care. Past Medical History Past Medical History: Atrial Fibrillation, Coronary Artery Disease (CAD), Heart Failure, Diabetes Mellitus, Dialysis, Eye Disorder, GERD/Reflux, Hearing Disorder / Deafness, Hyperlipidemia, Hypertension, Myocardial Infarction ([place]), Renal Disease, Syncope Additional Past Medical History / Comment(s): IDDM type II, neuropathy bilateral hands/feet, ESRD with hemodialysis on // with last time being Wednesday, , chronic anemia, LVH, Afib with RVR, MIs, chronic CHF, R eye blindness, L eye legally blind, RLS, pt unsure if he has gout, vertigo at times, balance issues at times, stomach ulcer at age 17yrs, sinus problems, very [place] R ear. Last Myocardial Infarction Date:: 08/09/18 History of Any Multi-Drug Resistant Organisms: None Reported Past Surgical History: Heart Catheterization, Heart Catheterization With Stent Additional Past Surgical History / Comment(s): TTT, PD catheter placement/since removed, 2017 L arm fistula, fistula gram with balloon for stenosis, L eye vitrectomy, thyroid needle aspiration-negative, L leg cyst, colonoscopy with benign polypectomy. Past Anesthesia/Blood Transfusion Reactions: Postoperative Nausea & Vomiting (PONV) Date of Last Stent Placement:: 03-03-18 Past Psychological History: Anxiety, Depression Smoking Status: Former smoker Past Alcohol Use History: None Reported Past Drug Use History: None Reported - Past Family History Father Family Medical History: Cancer, Coronary Artery Disease (CAD), Hyperlipidemia Additional Family Medical History / Comment(s): Lung/BRAIN CANCER Mother Family Medical History: Diabetes Mellitus, Deep Vein Thrombosis (DVT), Osteoarthritis (OA) Additional Family Medical History / Comment(s): DJD Sister(s) Family Medical History: Diabetes Mellitus Additional Family Medical History / Comment(s): Patient has one sister with diabetes mellitus type 2, SLE, MS. Brother(s) Family Medical History: Diabetes Mellitus Additional Family Medical History / Comment(s): Patient has 4 kids no major medical problems. Daughter(s) Family Medical History: No Reported History Additional Family Medical History / Comment(s): Patient has 2 daughters no major medical problems. Son(s) Family Medical History: No Reported History Additional Family Medical History / Comment(s): Patient has 2 sons no major medical problems. Medications and Allergies Home Medications Medication Instructions Recorded Confirmed Type Clopidogrel [Plavix] 75 mg PO DAILY #30 tab 03/05/18 02/17/20 Rx Insulin Glargine,Hum.rec.anlog 33 unit SQ DAILY 03/24/18 02/17/20 History [Basaglar Kwikpen U-100] Calcium Acetate [PhosLo] 1,334 mg PO AC-TID PRN 08/05/18 02/17/20 History Insulin Aspart [NovoLOG Flexpen] See Protocol SQ ACHS 08/05/18 02/17/20 History LORazepam [Ativan] 2 mg PO TID PRN 08/05/18 02/17/20 History Amiodarone [Cordarone] 100 mg PO DAILY 04/13/19 02/17/20 History Furosemide [Lasix] 80 mg PO DAILY 04/13/19 02/17/20 History Metoprolol Tartrate [Lopressor] 25 mg PO DAILY 04/13/19 02/17/20 History Triamcinolone 0.1% Ointment 1 applic TOPICAL BID PRN 04/13/19 02/17/20 History [Kenalog] metOLazone [Zaroxolyn] 5 mg PO DAILY 04/13/19 02/17/20 History Isosorbide Mononitrate ER [Imdur] 30 mg PO DAILY #30 tab.er.24h 07/22/19 02/17/20 Rx Apixaban [Eliquis] 2.5 mg PO BID 02/06/20 02/17/20 History Pioglitazone [Actos] 15 mg PO DAILY 02/06/20 02/17/20 History hydrALAZINE HCL [Apresoline] 25 mg PO TID 02/06/20 02/17/20 History hydrOXYzine pamoate [Vistaril] 100 mg PO TID PRN 02/06/20 02/17/20 History traMADol HCL [Ultram] 50 mg PO TID PRN 02/06/20 02/17/20 History Allopurinol [Zyloprim] 100 mg PO DAILY 02/17/20 02/17/20 History Gabapentin 300 mg PO BID 02/17/20 02/17/20 History Losartan [Cozaar] 50 mg PO HS 02/17/20 02/17/20 History Metoprolol Tartrate [Lopressor] 12.5 mg PO HS 02/17/20 02/17/20 History Nitroglycerin Sl Tabs [Nitrostat] 0.4 mg SL Q5M PRN 02/17/20 02/17/20 History Pantoprazole [Protonix] 40 mg PO DAILY 02/17/20 02/17/20 History Allergies Allergy/AdvReac Type Severity Reaction Status Date / Time bumetanide [From Bumex] Allergy Hallucinati Verified 02/17/20 17:29 ons Penicillins Allergy Anaphylaxis Verified 02/17/20 17:29 spironolactone Allergy Hallucinati Verified 02/17/20 17:29 ons morphine AdvReac Confusion Verified 02/17/20 17:29 rivaroxaban [From Xarelto] AdvReac Bloody Nose Verified 02/17/20 17:29 All antibiotics except Keflex Allergy Unknown Uncoded 02/17/20 17:29 Childhood Physical Exam Vitals: Vital Signs Temp Pulse Pulse Resp BP BP Pulse Ox 02/18/20 08:00 97.9 F 78 18 162/85 97 02/18/20 03:17 62 18 145/67 97 02/18/20 02:00 55 L 18 02/18/20 00:00 98.2 F 55 L 18 151/80 95 02/17/20 22:09 68 18 02/17/20 18:47 97.6 F 64 18 169/81 97 02/17/20 18:04 98.4 F 68 18 175/88 97 02/17/20 15:15 61 18 99 02/17/20 15:10 98 F 61 18 131/64 96 Intake and Output 02/17/20 02/18/20 02/18/20 22:59 06:59 14:59 Intake Total 120 Output Total 100 Balance 20 Intake: Oral 120 Output: Urine 100 Other: Weight 100 kg 87.5 kg Results 02/18/20 09:25 02/18/20 09:25 Cardiac Enzymes 02/17/20 02/17/20 02/17/20 Range/Units 15:15 15:15 18:16 AST 16 L (17-59) U/L Troponin I 0.036 H* 0.034 (0.000-0.034) ng/mL 02/17/20 Range/Units 20:54 AST (17-59) U/L Troponin I 0.038 H* (0.000-0.034) ng/mL Coagulation 02/17/20 Range/Units 15:15 PT 9.7 (9.0-12.0) sec APTT 25.0 (22.0-30.0) sec CBC 02/17/20 02/18/20 Range/Units 16:05 09:25 WBC 9.0 10.3 (3.8-10.6) k/uL RBC 4.37 4.53 (4.30-5.90) m/uL Hgb 11.8 L 11.9 L (13.0-17.5) gm/dL Hct 35.2 L 37.1 L (39.0-53.0) % Plt Count 223 226 (150-450) k/uL Comprehensive Metabolic Panel 02/17/20 02/18/20 Range/Units 15:15 09:25 Sodium 133 L 135 L (137-145) mmol/L Potassium 4.4 4.3 (3.5-5.1) mmol/L Chloride 95 L 94 L (98-107) mmol/L Carbon Dioxide 28 31 H (22-30) mmol/L BUN 47 H 58 H (9-20) mg/dL Creatinine 3.71 H 4.48 H (0.66-1.25) mg/dL Glucose 437 H 210 H (74-99) mg/dL Calcium 9.2 9.5 (8.4-10.2) mg/dL AST 16 L (17-59) U/L ALT 17 (4-49) U/L Alkaline Phosphatase 189 H (38-126) U/L Total Protein 6.9 (6.3-8.2) g/dL Albumin 3.9 (3.5-5.0) g/dL Current Medications Generic Name Dose Route Start Last Admin Trade Name Freq PRN Reason Stop Dose Admin Allopurinol 100 mg 02/18/20 09:00 02/18/20 09:25 Allopurinol 100 Mg Tab PO 100 mg DAILY JLUIS Administration Aminophylline 100 mg 02/18/20 10:26 Aminophylline 500 Mg/20 Ml Vial IV 03/19/20 10:27 ONCE PRN Patient Response Amiodarone HCl 100 mg 02/18/20 09:00 02/18/20 09:24 Amiodarone 100 Mg Tab PO 100 mg DAILY JLUIS Administration Apixaban 2.5 mg 02/17/20 21:00 02/18/20 09:26 Apixaban 2.5 Mg Tablet PO 2.5 mg BID JLUIS Administration Caffeine Citrate 60 mg 02/18/20 10:26 Caffeine Citrate 60 Mg/3 Ml Vial IV 03/19/20 10:27 ONCE PRN Patient Response Calcium Acetate 1,334 mg 02/18/20 12:30 Calcium Acetate 667 Mg Tab PO AC-TID [facility] Clopidogrel Bisulfate 75 mg 02/18/20 09:00 02/18/20 09:26 Clopidogrel 75 Mg Tab PO 75 mg DAILY JLUIS Administration Furosemide 80 mg 02/18/20 09:00 02/18/20 09:24 Furosemide 80 Mg Tab PO 80 mg DAILY JLUIS Administration Gabapentin 300 mg 02/19/20 09:00 Gabapentin 300 Mg Cap PO DAILY [facility] Hydralazine HCl 25 mg 02/17/20 22:00 02/18/20 09:25 Hydralazine Hcl 25 Mg Tab PO 25 mg TID JLUIS Administration Hydroxyzine Pamoate 100 mg 02/17/20 19:22 Hydroxyzine Pamoate 25 Mg Cap PO TID PRN Itching Insulin Aspart 0 unit 02/17/20 21:00 02/18/20 06:20 Insulin Aspart (Novolog) 100 Unit/Ml Vial SQ Not Given ACHS [facility] Protocol Insulin Detemir 33 unit 02/18/20 07:00 02/18/20 06:20 Insulin Detemir (Levemir) 100 Unit/Ml Syr SQ Not Given DAILY@0700 JLUIS Isosorbide Mononitrate 30 mg 02/18/20 09:00 02/18/20 09:25 Isosorbide Mononitrate Er 30 Mg Tab.Er.24h PO 30 mg DAILY JLUIS Administration Lorazepam 2 mg 02/17/20 19:22 Lorazepam 1 Mg Tab PO TID PRN Anxiety Losartan Potassium 50 mg 02/17/20 21:00 02/17/20 20:32 Losartan 50 Mg Tab PO 50 mg HS JLUIS Administration Metolazone 5 mg 02/18/20 09:00 02/18/20 09:24 Metolazone 5 Mg Tab PO 5 mg DAILY JLUIS Administration Metoprolol Tartrate 12.5 mg 02/17/20 21:00 02/17/20 20:31 Metoprolol Tartrate 12.5 Mg Tab PO 12.5 mg HS JLUIS Administration Metoprolol Tartrate 25 mg 02/18/20 09:00 02/18/20 09:25 Metoprolol Tartrate 25 Mg Tab PO 25 mg DAILY JLUIS Administration Naloxone HCl 0.2 mg 02/17/20 17:34 Naloxone 0.4 Mg/Ml 1 Ml Vial IV Q2M PRN Opioid Reversal Pantoprazole Sodium 40 mg 02/18/20 09:00 02/18/20 09:25 Pantoprazole 40 Mg Tablet PO 40 mg DAILY JLUIS Administration Pioglitazone HCl 15 mg 02/18/20 09:00 02/18/20 09:25 Pioglitazone 15 Mg Tab PO 15 mg DAILY JLUIS Administration Regadenoson 0.4 mg 02/18/20 10:26 Regadenoson 0.4 Mg/5 Ml Syringe IV 02/18/20 10:27 ONCE ONE Tramadol HCl 50 mg 02/17/20 19:22 02/18/20 09:25 Tramadol 50 Mg Tab PO 50 mg TID PRN Administration Pain Intake and Output 12/26/20 12/27/20 12/27/20 22:59 06:59 14:59 Intake Total 120 Output Total 100 Balance 20 Intake: Oral 120 Output: Urine 100 Other: Weight 100 kg 87.5 kg 02/18/20 09:25 02/18/20 09:25
[2020-02-18 12:09] LABS: Glucose,Whole Blood 227 mg/dL (75-99)
[2020-02-18] MEDS: CALCIUM ACETATE 667 MG TAB PO SCH ×2 (12:39→16:59)
--- NOTE | 2020-02-18 12:39 | P.HPIM ---
History of Present Illness H&P Date: 02/17/20 Chief Complaint: Chest pain, shortness of breath, end-stage renal disease, 59-year-old male one of Dr. Mckeon patient with past medical history of end- stage renal disease on hemodialysis, CAD post angioplasty and stent placement 2 last heart catheter was done in February 09 with stent of the left circumflex and stent of the proximal LAD patient still have intermediate lesion involving the mid LAD. Patient seen Dr. Hinojosa regular basis and cardiology also he does his dialysis on regular basis. Patient was in hemodialysis on 02/17/2020 when he developed to have midsternal chest pain chcf through more stabbing discomfort with worsening shortness of breath and palpitation his dialysis was stopped and patient was recommended to come to the emergency d epartment after taking 2 sublingual nitroglycerin patient was transferred to the emergency room his troponin was mildly elevated EKG reveals sinus rhythm with nonspecific ST change no acute ischemic change was found patient will be seeing cardiology will be kept nothing by mouth for possible heart cath in the meanwhile continue to watch his troponin trend over the next 24 hours. Review of Systems CONSTITUTIONAL: Well-developed no acute respiratory distress. EYES: No icterus sclerae, no conjunctivitis. EARS, NOSE, MOUTH, THROAT, and FACE: No sore throat, lymphadenopathy, carotid bruits or deformity. RESPIRATORY: Positive shortness of breath no cough or wheezes CARDIOVASCULAR: Recurrent chest pain and angina positive PND orthopnea palpitation GASTROINTESTINAL: Mild abdominal discomfort with nausea no vomiting diarrhea constipation GENITOURINARY: Negative for Hematuria or UTI, no kidney stones. Significant decrease urine output INTEGUMENT/BREAST: Negative for any muscular injury with mild osteoarthritis.. HEMATOLOGIC/LYMPHATIC: Negative for bleed or purpura. MUSCULOSKELTAL: Negative for Myalgia or arthralgia. Generalized muscle and joint pain NEURLOGICAL: No LOC, Sz or syncope, blurred vision dizziness or abnormality.. Chronic neuropathy BEHAVIORAL/PSYCH: Negative. ENDOCRINE: Negative. Past Medical History Past Medical History: Atrial Fibrillation, Coronary Artery Disease (CAD), Heart Failure, Diabetes Mellitus, Dialysis, Eye Disorder, GERD/Reflux, Hearing Disorder / Deafness, Hyperlipidemia, Hypertension, Myocardial Infarction ([place]), Renal Disease, Syncope Additional Past Medical History / Comment(s): IDDM type II, neuropathy bilateral hands/feet, ESRD with hemodialysis on /W/F with last time being 10/14/18, chronic anemia, LVH, Afib with RVR, MIs, chronic CHF, R eye blindness, L eye legally blind, RLS, pt unsure if he has gout, vertigo at times, balance issues at times, stomach ulcer at age 17yrs, sinus problems, very [place] R ear. Last Myocardial Infarction Date:: 08/09/18 History of Any Multi-Drug Resistant Organisms: None Reported Past Surgical History: Heart Catheterization, Heart Catheterization With Stent Additional Past Surgical History / Comment(s): TTT, PD catheter placement/since removed, 2016 L arm fistula, fistula gram with balloon for stenosis, L eye vitrectomy, thyroid needle aspiration-negative, L leg cyst, colonoscopy with benign polypectomy. Past Anesthesia/Blood Transfusion Reactions: Postoperative Nausea & Vomiting (PONV) Date of Last Stent Placement:: 03-03-18 Past Psychological History: Anxiety, Depression Smoking Status: Former smoker Past Alcohol Use History: None Reported Past Drug Use History: None Reported - Past Family History Father Family Medical History: Cancer, Coronary Artery Disease (CAD), Hyperlipidemia Additional Family Medical History / Comment(s): Lung/BRAIN CANCER Mother Family Medical History: Diabetes Mellitus, Deep Vein Thrombosis (DVT), Osteoarthritis (OA) Additional Family Medical History / Comment(s): DJD Sister(s) Family Medical History: Diabetes Mellitus Additional Family Medical History / Comment(s): Patient has one sister with diabetes mellitus type 2, SLE, MS. Brother(s) Family Medical History: Diabetes Mellitus Additional Family Medical History / Comment(s): Patient has 4 kids no major medical problems. Daughter(s) Family Medical History: No Reported History Additional Family Medical History / Comment(s): Patient has 2 daughters no major medical problems. Son(s) Family Medical History: No Reported History Additional Family Medical History / Comment(s): Patient has 2 sons no major medical problems. Medications and Allergies Home Medications Medication Instructions Recorded Confirmed Type Clopidogrel [Plavix] 75 mg PO DAILY #30 tab 03/05/18 02/17/20 Rx Insulin Glargine,Hum.rec.anlog 33 unit SQ DAILY 03/24/18 02/17/20 History [Basaglar Kwikpen U-100] Calcium Acetate [PhosLo] 1,334 mg PO AC-TID PRN 08/05/18 02/17/20 History Insulin Aspart [NovoLOG Flexpen] See Protocol SQ ACHS 08/05/18 02/17/20 History LORazepam [Ativan] 2 mg PO TID PRN 08/05/18 02/17/20 History Amiodarone [Cordarone] 100 mg PO DAILY 04/13/19 02/17/20 History Furosemide [Lasix] 80 mg PO DAILY 04/13/19 02/17/20 History Metoprolol Tartrate [Lopressor] 25 mg PO DAILY 04/13/19 02/17/20 History Triamcinolone 0.1% Ointment 1 applic TOPICAL BID PRN 04/13/19 02/17/20 History [Kenalog] metOLazone [Zaroxolyn] 5 mg PO DAILY 04/13/19 02/17/20 History Isosorbide Mononitrate ER [Imdur] 30 mg PO DAILY #30 tab.er.24h 07/22/1902/16 Rx Apixaban [Eliquis] 2.5 mg PO BID 02/06/20 02/17/20 History Pioglitazone [Actos] 15 mg PO DAILY 02/06/20 02/17/20 History hydrALAZINE HCL [Apresoline] 25 mg PO TID 02/06/20 02/17/20 History hydrOXYzine pamoate [Vistaril] 100 mg PO TID PRN 02/06/20 02/17/20 History traMADol HCL [Ultram] 50 mg PO TID PRN 02/06/20 02/17/20 History Allopurinol [Zyloprim] 100 mg PO DAILY 02/17/20 02/17/20 History Gabapentin 300 mg PO BID 02/17/20 02/17/20 History Losartan [Cozaar] 50 mg PO HS 02/17/20 02/17/20 History Metoprolol Tartrate [Lopressor] 12.5 mg PO HS 02/17/20 02/17/20 History Nitroglycerin Sl Tabs [Nitrostat] 0.4 mg SL Q5M PRN 02/17/20 02/17/20 History Pantoprazole [Protonix] 40 mg PO DAILY 02/17/20 02/17/20 History Allergies Allergy/AdvReac Type Severity Reaction Status Date / Time bumetanide [From Bumex] Allergy Hallucinati Verified 02/17/20 17:29 ons Penicillins Allergy Anaphylaxis Verified 02/17/20 17:29 spironolactone Allergy Hallucinati Verified 02/17/20 17:29 ons morphine AdvReac Confusion Verified 02/17/20 17:29 rivaroxaban [From Xarelto] AdvReac Bloody Nose Verified 02/17/20 17:29 All antibiotics except Keflex Allergy Unknown Uncoded 02/17/20 17:29 Childhood Physical Exam Vitals: Vital Signs Temp Pulse Resp BP Pulse Ox 02/17/20 18:47 97.6 F 64 18 169/81 97 02/17/20 15:15 61 18 99 02/17/20 15:10 98 F 61 18 131/64 96 Intake and Output 02/17/20 02/17/20 02/17/20 06:59 14:59 22:59 Other: Weight 100 kg General Appearance: Alert, cooperative, no distress, appears stated age. Neck HEENT: Supple, no lymphadenopathy, no thyroid enlargement, no carotid bruits. Lungs: Decreased breath some bilaterally without rhonchi has mild crackles slight wheezes in the right side. Chest Wall: Decrease expansion with deep inspiration no tenderness and no defo rmity was found on exam, no costochondral pain or discomfort. Heart: Regular rate and rhythm, S1, S2 normal, no murmur, rub or gallop. Positive history for JVD. Back: Symmetric, no curvature, ROM normal, no CVA tenderness. Abdomen: Soft, non-tender, bowel sounds active all four quadrants, no masses, no organomegaly. Extremities: Trace edema significant discoloration from the knee down bilaterally. Pulses: 2+ and symmetric. Skin: Skin color, texture, tugor normal, no rashes or lesions. Neurologic: Alert oriented x3 cranial nerves II through XII intact, no motor deficit, no abnormal balance or gait. Results CBC & Chem 7: 02/18/20 09:25 02/18/20 09:25 Labs: Abnormal Lab Results - Last 24 Hours (Table) 02/17/20 02/17/20 02/17/20 Range/Units 15:15 15:15 16:05 Hgb 11.8 L (13.0-17.5) gm/dL Hct 35.2 L (39.0-53.0) % Lymphocytes # 0.9 L (1.0-4.8) k/uL Sodium 133 L (137-145) mmol/L Chloride 95 L (98-107) mmol/L BUN 47 H (9-20) mg/dL Creatinine 3.71 H (0.66-1.25) mg/dL Glucose 437 H (74-99) mg/dL AST 16 L (17-59) U/L Alkaline Phosphatase 189 H (38-126) U/L Troponin I 0.036 H* (0.000-0.034) ng/mL Assessment and Plan Assessment: 1 chest pain and unstable angina: Patient is known to have altered with coronary artery disease with his symptoms suggestive angina with elevated troponin patient be hospitalized continue troponin times 3 repeat EKG, echocardiogram seeing cardiology for possible need for heart cath. 2 non-ST VT: With previous history of PCI of the LAD and circumflex patient had another lesion in the LAD might become more blockage this point might require angioplasty testing to be determined. 3 paroxysmal atrial remain on Eliquis and metoprolol, along with amiodarone 100 mg daily 4 end-stage renal disease on hemodialysis 3 times a week we'll consult nephrolog y and dialysis will be continued tomorrow. 5 ischemic cardiomyopathy: Continue patient on Zaroxolyn 18, Lopressor, hydralazine, nitro and Lasix. 6 type 2 diabetes: On Levemir 33 units daily along with NovoLog per sliding scales coverage still on Actos 15 mg daily. 7 chronic neuropathy: Remain on gabapentin 300 mg daily. 8 hypertension: Still on metoprolol 37.5 mg daily losartan 50 mg a day hyd ralazine 25 mg 3 times a day. 9 chronic anemia: On iron and Procrit. 10 GI prophylaxis: Remain on Pepcid. 11 DVT prophylaxis: Still on Eliquis. CODE STATUS: Full code. Admit patient to the inpatient service for more than 2 night stay.
--- NOTE | 2020-02-18 12:42 | P.PN ---
Subjective Progress Note Date: 02/18/20 Principal diagnosis: Chest pain, shortness of breath, end-stage renal disease, 59-year-old male one of Dr. Mckeon patient with past medical history of end- stage renal disease on hemodialysis, CAD post angioplasty and stent placement 2 last heart catheter was done in February 09 with stent of the left circumflex and stent of the proximal LAD patient still have intermediate lesion involving the mid LAD. Patient seen Dr. Hinojosa regular basis and cardiology also he does his dialysis on regular basis. Patient was in hemodialysis on 02/17/2020 when he developed to have midsternal chest pain senior care through more stabbing discomfort with worsening shortness of breath and palpitation his dialysis was stopped and patient was recommended to come to the emergency department after taking 2 sublingual nitroglycerin patient was transferred to the emergency room his troponin was mildly elevated EKG reveals sinus rhythm with nonspecific ST change no acute ischemic change was found patient will be seeing cardiology will be kept nothing by mouth for possible heart cath in the meanwhile continue to watch his troponin trend over the next 24 hours. 02/17: Patient is having no more chest pain, no shortness of breath, was seen cardiology troponin was elevated no change in EKG decided to do an echocardiogram and patient will be going for she scan if positive physical go for heart cath if negative will continue medical management. Patient does not require hemodialysis today which will be Objective - Vital Signs Vital signs: Vital Signs Temp 97.9 F 02/18/20 08:00 Pulse 78 02/18/20 08:00 Resp 18 02/18/20 08:00 BP 162/85 02/18/20 08:00 Pulse Ox 97 02/18/20 08:00 Intake & Output 02/17/20 02/18/20 02/18/20 18:59 06:59 18:59 Intake Total 120 240 Output Total 100 Balance 20 240 Weight 100 kg 87.5 kg Intake: Oral 120 240 Output: Urine 100 - Exam Review of Systems CONSTITUTIONAL: Well-developed no acute respiratory distress. EYES: No icterus sclerae, no conjunctivitis. EARS, NOSE, MOUTH, THROAT, and FACE: No sore throat, lymphadenopathy, carotid bruits or deformity. RESPIRATORY: Positive shortness of breath no cough or wheezes CARDIOVASCULAR: Recurrent chest pain and angina positive PND orthopnea palpitation GASTROINTESTINAL: Mild abdominal discomfort with nausea no vomiting diarrhea constipation GENITOURINARY: Negative for Hematuria or UTI, no kidney stones. Significant decrease urine output INTEGUMENT/BREAST: Negative for any muscular injury with mild osteoarthritis.. HEMATOLOGIC/LYMPHATIC: Negative for bleed or purpura. MUSCULOSKELTAL: Negative for Myalgia or arthralgia. Generalized muscle and joint pain NEURLOGICAL: No LOC, Sz or syncope, blurred vision dizziness or abnormality.. Chronic neuropathy BEHAVIORAL/PSYCH: Negative. ENDOCRINE: Negative. Physical Exam Vitals: General Appearance: Alert, cooperative, no distress, appears stated age. Neck HEENT: Supple, no lymphadenopathy, no thyroid enlargement, no carotid bruits. Lungs: Decreased breath some bilaterally without rhonchi has mild crackles slight wheezes in the right side. Chest Wall: Decrease expansion with deep inspiration no tenderness and no deformity was found on exam, no costochondral pain or discomfort. Heart: Regular rate and rhythm, S1, S2 normal, no murmur, rub or gallop. Positive history for JVD. Back: Symmetric, no curvature, ROM normal, no CVA tenderness. Abdomen: Soft, non-tender, bowel sounds active all four quadrants, no masses, no organomegaly. Extremities: Trace edema significant discoloration from the knee down bilaterally. Pulses: 2+ and symmetric. Skin: Skin color, texture, tugor normal, no rashes or lesions. Neurologic: Alert oriented x3 cranial nerves II through XII intact, no motor deficit, no abnormal balance or gait. - Labs CBC & Chem 7: 02/18/20 09:25 02/18/20 09:25 Labs: Abnormal Lab Results - Last 24 Hours (Table) 02/17/20 02/17/20 02/17/20 Range/Units 15:15 15:15 16:05 Hgb 11.8 L (13.0-17.5) gm/dL Hct 35.2 L (39.0-53.0) % Neutrophils # (1.3-7.7) k/uL Lymphocytes # 0.9 L (1.0-4.8) k/uL Sodium 133 L (137-145) mmol/L Chloride 95 L (98-107) mmol/L Carbon Dioxide (22-30) mmol/L BUN 47 H (9-20) mg/dL Creatinine 3.71 H (0.66-1.25) mg/dL Glucose 437 H (74-99) mg/dL POC Glucose (mg/dL) (75-99) mg/dL AST 16 L (17-59) U/L Alkaline Phosphatase 189 H (38-126) U/L Troponin I 0.036 H* (0.000-0.034) ng/mL 02/17/20 02/18/20 02/18/20 Range/Units 20:54 06:19 09:25 Hgb 11.9 L (13.0-17.5) gm/dL Hct 37.1 L (39.0-53.0) % Neutrophils # 8.4 H (1.3-7.7) k/uL Lymphocytes # 0.8 L (1.0-4.8) k/uL Sodium (137-145) mmol/L Chloride (98-107) mmol/L Carbon Dioxide (22-30) mmol/L BUN (9-20) mg/dL Creatinine (0.66-1.25) mg/dL Glucose (74-99) mg/dL POC Glucose (mg/dL) 74 L (75-99) mg/dL AST (17-59) U/L Alkaline Phosphatase (38-126) U/L Troponin I 0.038 H* (0.000-0.034) ng/mL 02/18/20 02/18/20 Range/Units 09:25 11:51 Hgb (13.0-17.5) gm/dL Hct (39.0-53.0) % Neutrophils # (1.3-7.7) k/uL Lymphocytes # (1.0-4.8) k/uL Sodium 135 L (137-145) mmol/L Chloride 94 L (98-107) mmol/L Carbon Dioxide 31 H (22-30) mmol/L BUN 58 H (9-20) mg/dL Creatinine 4.48 H (0.66-1.25) mg/dL Glucose 210 H (74-99) mg/dL POC Glucose (mg/dL) 227 H (75-99) mg/dL AST (17-59) U/L Alkaline Phosphatase (38-126) U/L Troponin I (0.000-0.034) ng/mL Assessment and Plan Assessment: 1 chest pain and unstable angina: Patient is known to have altered with coronary artery disease with his symptoms suggestive angina with elevated troponin patient be hospitalized continue troponin times 3 repeat EKG, echocardiogram seeing cardiology for possible need for heart cath. 2 non-ST [place]: With previous history of PCI of the LAD and circumflex patient had another lesion in the LAD might become more blockage this point might require angioplasty testing to be determined. 3 paroxysmal atrial remain on Eliquis and metoprolol, along with amiodarone 100 mg daily 4 end-stage renal disease on hemodialysis 3 times a week we'll consult nephrology and dialysis will be continued tomorrow. 5 ischemic cardiomyopathy: Continue patient on Zaroxolyn 18, Lopressor, hydralazine, nitro and Lasix. 6 type 2 diabetes: On Levemir 33 units daily along with NovoLog per sliding scales coverage still on Actos 15 mg daily. 7 chronic neuropathy: Remain on gabapentin 300 mg daily. 8 hypertension: Still on metoprolol 37.5 mg daily losartan 50 mg a day hydralazine 25 mg 3 times a day. 9 chronic anemia: On iron and Procrit. 10 GI prophylaxis: Remain on Pepcid. 11 DVT prophylaxis: Still on Eliquis. Plan: Continue to watch patient overnight echo and stress test tomorrow if abnormal patient be going for heart cath if normal will continue medical management.
[2020-02-18 15:30] LABS: Glucose,Whole Blood 416 mg/dL (75-99)
[2020-02-18 15:30] LABS: Glucose,Whole Blood 384 mg/dL (75-99)
[2020-02-18 17:01] LABS: Glucose,Whole Blood 237 mg/dL (75-99)
[2020-02-18 20:12] LABS: Glucose,Whole Blood 196 mg/dL (75-99)
[2020-02-18] MEDS: METOPROLOL TARTRATE 12.5 MG TAB PO SCH (21:13)
[2020-02-18] MEDS: LOSARTAN 50 MG TAB PO SCH (21:13)
[2020-02-19] MEDS ORDERED: hydrALAZINE HCL 20 MG/ML 1 ML VIAL IVP STA (03:55)
[2020-02-19 06:20] LABS: Glucose,Whole Blood 325 mg/dL (75-99)
[2020-02-19] MEDS: INSULIN ASPART (NovoLOG) 100 UNIT/ML VIAL SQ SCH ×4 (06:45→20:47)
[2020-02-19] MEDS: CALCIUM ACETATE 667 MG TAB PO SCH ×3 (07:28→17:19)
[2020-02-19] MEDS ORDERED: REGADENOSON 0.4 MG/5 ML SYRINGE IV ONE (08:00)
[2020-02-19] MEDS ORDERED: hydrALAZINE HCL 20 MG/ML 1 ML VIAL IVP PRN (08:00)
[2020-02-19] MEDS: hydrALAZINE HCL 50 MG TAB PO SCH ×3 (10:31→20:15)
[2020-02-19] MEDS: METOPROLOL TARTRATE 25 MG TAB PO SCH (10:31)
[2020-02-19] MEDS: CLOPIDOGREL 75 MG TAB PO SCH (10:31)
[2020-02-19] MEDS: PANTOPRAZOLE 40 MG TABLET PO SCH (10:31)
[2020-02-19] MEDS: APIXABAN 2.5 MG TABLET PO SCH ×2 (10:32→20:17)
[2020-02-19] MEDS: allopurinoL 100 MG TAB PO SCH (10:32)
[2020-02-19] MEDS: ISOSORBIDE MONONITRATE ER 30 MG TAB.ER.24H PO SCH (10:32)
[2020-02-19] MEDS: GABAPENTIN 300 MG CAP PO SCH (10:32)
[2020-02-19] MEDS: FUROSEMIDE 80 MG TAB PO SCH (10:32)
[2020-02-19] MEDS: metOLazone 5 MG TAB PO SCH (10:33)
[2020-02-19] MEDS: AMIODARONE 100 MG TAB PO SCH (10:33)
[2020-02-19] MEDS: INSULIN DETEMIR (LEVEMIR) 100 UNIT/ML SYR SQ SCH (10:33)
[2020-02-19] MEDS: PIOGLITAZONE 15 MG TAB PO SCH (10:34)
--- NOTE | 2020-02-19 11:06 | NM ---
EXAMINATION TYPE: NM stress lexiscan cardiolite DATE OF EXAM: 02/19/2020 COMPARISON: NONE HISTORY: History of hypertension and diabetes along with hypercholesteremia and prior heart attack in dad, tobacco use in the past along with 2 prior heart attacks and 2 angioplasties presents with new chest pain. TECHNIQUE: After the intravenous administration of 9.77 mCi Tc 99m Sestamibi - Cardiolite resting SP ECT images acquired 45 minutes post injection. The patient received 0.4mg Lexiscan, 27 mCi Tc 99m Sestamibi - Stress images obtained 35 minutes post injection FINDINGS: Review of stress and rest SPECT images demonstrates areas of increased radiotracer uptake or color in tensity anterior septal wall mid to apical levels on stress images versus rest images seen best on sh ort axis and vertical long axis views in which acute ischemia cannot be excluded. Gated analysis patrice ws overall estimated left ventricular ejection fraction of 51 %. IMPRESSION: Cannot exclude area of acute ischemia anterior left ventricular wall mid to apical levels in the LAD distribution. Correlate clinically to determine need for further workup by direct cathete r angiogram. A Yellow level critical message alert has been initiated for Perry Christian MD via the [facility] Critical Results System on 02/19/2020 11:03 AM. This message alert has been sent to Perry Christian MD v susie the preferences provided by the clinician for the receipt of Radiology Critical Findings. Message ID [id number].
[2020-02-19] MEDS ORDERED: ASPIRIN 325 MG TAB PO STA (11:40)
[2020-02-19] MEDS: SODIUM CHLORIDE 0.9% 1,000 ML in EMPTY BAG 1 BAG IV ONE ×2 (11:47→20:50)
[2020-02-19 11:54] LABS: Glucose,Whole Blood 344 mg/dL (75-99)
[2020-02-19] MEDS: hydrOXYzine pamoate 25 MG CAP PO PRN (12:39)
--- NOTE | 2020-02-19 13:01 | P.PN ---
Subjective 59-year-old male one of Dr. Mckeon patient with past medical history of end- stage renal disease on hemodialysis, CAD post angioplasty and stent placement 2 last heart catheter was done in February 09 with stent of the left circumflex and stent of the proximal LAD patient still have intermediate lesion involving the mid LAD. Patient seen Dr. Hinojosa regular basis and cardiology also he does his dialysis on regular basis. Patient was in hemodialysis on 02/17/2020 when he developed to have midsternal chest pain care home through more stabbing discomfort with worsening shortness of breath and palpitation his dialysis was stopped and patient was recommended to come to the emergency department after taking 2 sublingual nitroglycerin patient was transferred to the emergency room his troponin was mildly elevated EKG reveals sinus rhythm with nonspecific ST change no acute ischemic change was found patient will be seeing cardiology will be kept nothing by mouth for possible heart cath in the meanwhile continue to watch his troponin trend over the next 24 hours. 02/17: Patient is having no more chest pain, no shortness of breath, was seen cardiology troponin was elevated no change in EKG decided to do an echocardiogram and patient will be going for she scan if positive physical go for heart cath if negative will continue medical management. Patient does not require hemodialysis today which will be 02/18: Patient evaluated this morning, resting in bed comfortably. Patient had Lexiscan today which showed possible area of acute ischemia and severe left ventricular wall mid to apical levels in the LAD distribution. Patient will be going for cardiac cath. Objective - Vital Signs Vital signs: Vital Signs Temp 97.4 F L 02/19/20 00:00 Pulse 74 02/19/20 08:00 Resp 18 02/19/20 08:00 BP 152/84 02/19/20 08:00 Pulse Ox 97 02/19/20 08:00 Intake & Output 02/18/20 02/19/20 02/19/20 18:59 06:59 18:59 Intake Total 960 Balance 960 Weight 95.3 kg Intake: Oral 960 Other: # Voids 4 1 - Exam General Appearance: Alert, cooperative, no distress, appears stated age. Neck HEENT: Supple, no lymphadenopathy, no thyroid enlargement, no carotid b ruits. Lungs: Decreased breath some bilaterally without rhonchi has mild crackles slight wheezes in the right side. Chest Wall: Decrease expansion with deep inspiration no tenderness and no deformity was found on exam, no costochondral pain or discomfort. Heart: Regular rate and rhythm, S1, S2 normal, no murmur, rub or gallop. Positive history for JVD. Back: Symmetric, no curvature, ROM normal, no CVA tenderness. Abdomen: Soft, non-tender, bowel sounds active all four quadrants, no masses, no organomegaly. Extremities: Trace edema significant discoloration from the knee down bilaterally. Pulses: 2+ and symmetric. Skin: Skin color, texture, tugor normal, no rashes or lesions. Neurologic: Alert oriented x3 cranial nerves II through XII intact, no motor deficit - Labs CBC & Chem 7: 02/18/20 09:25 02/18/20 09:25 Labs: Abnormal Lab Results - Last 24 Hours (Table) 02/17/20 02/17/20 02/18/20 Range/Units 18:40 20:27 11:51 POC Glucose (mg/dL) 384 H 416 H 227 H (75-99) mg/dL 02/18/20 02/18/20 02/19/20 Range/Units 16:52 20:07 06:04 POC Glucose (mg/dL) 237 H 196 H 325 H (75-99) mg/dL Assessment and Plan Plan: 1 chest pain and unstable angina: Patient is known to have coronary artery disease, with elevated troponin, cardiology on consult, patient underwent stress test today which was positive, will be going for cardiac catheterization 2 non-ST [place]: With previous history of PCI of the LAD and circumflex patient had another lesion in the LAD might become more blockage this point might require angioplasty testing to be determined. 3 paroxysmal atrial remain on Eliquis and metoprolol, along with amiodarone 100 mg daily 4 end-stage renal disease on hemodialysis 3 times a week. Nephrology on consult, is due for dialysis today 5 ischemic cardiomyopathy: Continue patient on Zaroxolyn 18, Lopressor, hydralazine, nitro and Lasix. 6 type 2 diabetes: On Levemir 33 units daily along with NovoLog per sliding scales coverage still on Actos 15 mg daily. 7 chronic neuropathy: Remain on gabapentin 300 mg daily. 8 hypertension: Still on metoprolol 37.5 mg daily losartan 50 mg a day hydralazine 25 mg 3 times a day. 9 chronic anemia: On iron and Procrit. 10 GI prophylaxis: Remain on Pepcid. 11 DVT prophylaxis: Still on Eliquis. Plan: Continue to watch patient overnight echo and stress test tomorrow if abnormal patient be going for heart cath if normal will continue medical management. The above impression and plan of care have been discussed and directed by signing physician. Dinora Aldana nurse practitioner acting as scribe for signing physician.
--- NOTE | 2020-02-19 13:37 | P.STRESS ---
- Stress Test Note Stress Test Results/Findings: Exam Performed: NM stress lexiscan cardiolite Exam Date: 02/19/20 Reason for Exam: Chest Pain Height: 5 ft 8 in Weight: 95.3 kg Protocol: Lexiscan Stage: na Duration of Exercise: na Resting Heart Rate: 74 Resting Blood Pressure: 180/66 Maximum Achieved Heart Rate: 90 Maximum Achieved Blood Pressure: 212/71 85% PMHR: 136 100% PMHR: 160 METS: na Technologist Comment: Stress Test Results/Findings: Baseline heart rate 74 beats a minute, Baseline blood pressure 180 was 6 6 mmHg based central ECG shows sinus rhythm with poor R-wave progression normal ST segments Patient received Lexiscan infusion per protocol Heart rate in stable Elevation blood pressure to 212/73 mmHg. Patient was nauseous following infusion of Lexiscan There is no ECG evidence of ischemia Occasional left bundle PVCs were noted New proportionally reported separately
--- NOTE | 2020-02-19 13:44 | ECHOF ---
Referral Reason:LV function MEASUREMENTS -------- HEIGHT: 172.7 cm WEIGHT: 95.3 kg BP: 120/71 IVSd: 1.4 cm (0.6 - 1.1) LVIDd: 4.1 cm (3.9 - 5.3) LVPWd: 1.2 cm (0.6 - 1.1) IVSs: 1.7 cm LVIDs: 3.0 cm LVPWs: 1.6 cm LA Diam: 3.6 cm (2.7 - 3.8) RVIDd: 3.4 cm (< 3.3) LAESV Index (A-L): 31.98 ml/m Ao Diam: 3.3 cm (2.0 - 3.7) AV Cusp: 2.0 cm (1.5 - 2.6) MV E Bryn: 1.20 m/s MV DecT: 209 ms MV A Bryn: 1.09 m/s MV E/A Ratio: 1.10 AV maxP.84 mmHg AV meanP.12 mmHg RAP: 5.00 mmHg RVSP: 35.07 mmHg FINDINGS -------- Sinus rhythm. This was a technically adequate study. The left ventricular size is normal. There is moderate concentric left ventricular hypertrophy. O verall left ventricular systolic function is normal with, an EF between 60 - 65 %. The right ventricle is mildly enlarged. Normal LA size by volume 22+/-6 ml/m2. The right atrium is normal in size. Lipomatous Hypertrophy of the atrial septum is present There is mild aortic valve sclerosis. There is mild aortic regurgitation. There is mild aortic st enosis present. Peak/mean gradient across the Aortic Valve is 17.84mmHg / 11.12mmHg. Mild mitral annular calcification present. There is trace to mild mitral regurgitation. Mild tricuspid regurgitation present. There is mild pulmonary hypertension. The right ventricular systolic pressure, as measured by Doppler, is 35.07mmHg. Trace/mild (physiologic) pulmonic regurgitation. The aortic root size is normal. Normal inferior vena cava with normal inspiratory collapse consistent with estimated right atrial pre ssure of 5 mmHg. There is no pericardial effusion. CONCLUSIONS -------- 1. The left ventricular size is normal. 2. There is moderate concentric left ventricular hypertrophy. 3. Overall left ventricular systolic function is normal with, an EF between 60 - 65 %. 4. The right ventricle is mildly enlarged. 5. Normal LA size by volume 22+/-6 ml/m2. 6. Lipomatous Hypertrophy of the atrial septum is present 7. There is mild aortic valve sclerosis. 8. There is mild aortic regurgitation. 9. There is mild aortic stenosis present. 10. Peak/mean gradient across the Aortic Valve is 17.84mmHg / 11.12mmHg. 11. Mild mitral annular calcification present. 12. There is trace to mild mitral regurgitation. 13. Mild tricuspid regurgitation present. 14. There is mild pulmonary hypertension. 15. The right ventricular systolic pressure, as measured by Doppler, is 35.07mmHg. 16. Trace/mild (physiologic) pulmonic regurgitation. 17. There is no pericardial effusion. SECURITY FLEX OFFICER: Windy Ragland RDCS
[2020-02-19 16:38] LABS: Glucose,Whole Blood 322 mg/dL (75-99)
[2020-02-19] MEDS: LOSARTAN 50 MG TAB PO SCH (20:15)
[2020-02-19] MEDS: METOPROLOL TARTRATE 12.5 MG TAB PO SCH (20:15)
[2020-02-19 20:30] LABS: Glucose,Whole Blood 309 mg/dL (75-99)
[2020-02-20] MEDS: CALCIUM ACETATE 667 MG TAB PO SCH ×3 (05:01→17:17)
[2020-02-20] MEDS: APIXABAN 2.5 MG TABLET PO SCH ×2 (05:02→20:47)
[2020-02-20] MEDS: METOPROLOL TARTRATE 25 MG TAB PO SCH (05:37)
[2020-02-20] MEDS: FUROSEMIDE 80 MG TAB PO SCH (05:37)
[2020-02-20] MEDS: CLOPIDOGREL 75 MG TAB PO SCH (05:37)
[2020-02-20] MEDS: hydrALAZINE HCL 50 MG TAB PO SCH ×2 (05:37→20:40)
[2020-02-20] MEDS: ISOSORBIDE MONONITRATE ER 30 MG TAB.ER.24H PO SCH (05:37)
[2020-02-20] MEDS: PANTOPRAZOLE 40 MG TABLET PO SCH (05:37)
[2020-02-20] MEDS: allopurinoL 100 MG TAB PO SCH (05:37)
[2020-02-20] MEDS: AMIODARONE 100 MG TAB PO SCH (05:37)
[2020-02-20] MEDS: GABAPENTIN 300 MG CAP PO SCH (05:37)
[2020-02-20] MEDS: metOLazone 5 MG TAB PO SCH (05:37)
[2020-02-20] MEDS ORDERED: IV FLUID CONTINUATION 1,000 ML IV ONE (07:13)
[2020-02-20] MEDS ORDERED: ASPIRIN 81 MG PO ONE (07:13)
[2020-02-20] MEDS: fentaNYL (PF) 50 MCG/ML 2 ML AMP IV ONE ×2 (07:57→08:00)
[2020-02-20] MEDS: MIDAZOLAM 2 MG/2 ML VIAL IV ONE ×2 (07:57→08:01)
[2020-02-20] MEDS: hydrOXYzine pamoate 25 MG CAP PO PRN ×2 (07:57→12:51)
[2020-02-20] MEDS ORDERED: LIDOCAINE 1% INJ 10MG/ML (20 ML MDV) SQ ONE (07:58)
[2020-02-20] MEDS ORDERED: IOPAMIDOL-370 125ML BTL INJ ONE (08:13)
[2020-02-20] MEDS ORDERED: RX INFO: IV CONTRAST WAS GIVEN 1 EACH MISC MISCELLANE PRN (08:20)
[2020-02-20] MEDS ORDERED: SODIUM CHLORIDE 0.9% 1,000 ML IV SCH (08:30)
--- NOTE | 2020-02-20 08:59 | CC ---
CARDIAC CATHETERIZATION REPORT DATE OF SERVICE: February 20, 2020 PERFORMING PHYSICIAN: Andry Bowie MD. PROCEDURE PERFORMED: 1. Selective left coronary angiogram. 2. Left heart catheterization. INDICATION: This is a 59-year-old gentleman with coronary artery disease and prior stenting of the LAD and left circumflex who was admitted to the hospital with chest discomfort and underwent myocardial perfusion imaging stress test and that revealed an anterior ischemia. Because of that, a heart catheterization was advised. APPROACH: Right common femoral artery. COMPLICATION: None. LEVEL OF SEDATION: Moderate with sedation length of 15 minutes. PROCEDURE DESCRIPTION: After obtaining an informed consent, the patient was brought to the cardiac field laborer. The right common femoral artery was cannulated using micropuncture technique, the micropuncture wire passed easily then I placed a 6-Korean sheath. Selective left coronary angiogram was performed using JL4 catheter. Selective right coronary angiogram was not performed because the RCA is known to be chronically occluded. Left heart catheterization was performed using the JR4 catheter. The procedure was completed without any complication. SELECTIVE CORONARY ANGIOGRAM: 1. The left main is not exist. 2. The LAD is a large caliber vessel. The LAD is stented in the proximal portion and the stent seems to be patent. The mid and distal LAD has mild diffuse disease only. The LAD gives rise into a diagonal branch which has intermediate disease. 3. The left circumflex is a large caliber vessel. The left circumflex itself is normal. In the proximal portion, it gives rise into an OM1 which is stented and the stent appeared to be patent. HEMODYNAMICS: The LVEDP was 20 mmHg with mild gradient across the aortic valve. CONCLUSION: 1. Patent stents in the left anterior descending artery and left circumflex. 2. Known chronic total occlusion of the right coronary artery which fills by collaterals. 3. Elevated left ventricular end-diastolic pressure. POSTPROCEDURE MANAGEMENT: 1. Given the above anatomy, I advised maximized medical treatment including aggressive cholesterol control. 2. Continue hemodialysis. 3. Follow up with the patient. MMODL / IJN: [id number] /
--- NOTE | 2020-02-20 09:05 | LTR ---
February 20, 2020. Re: Joel Gillette Dear Dr. Christian: Mr. Joel Gillette underwent today a heart catheterization as you know after he was admitted to the hospital with chest discomfort and was found to have an abnormal myocardial perfusion imaging stress test. The heart catheterization today revealed mild to moderate nonobstructive coronary artery disease with patent stents in both the LAD and left circumflex. The right coronary artery is known to be chronically occluded. With the above findings, I advised maximized medical treatment including aggressive cholesterol control and risk factor modifications and follow up with him. Again, I want to thank you for allowing me to participate in his care and please do not hesitate to call if you have any question or concern. Sincerely, MD LUL Brown / LIS: [id number] /
[2020-02-20] MEDS: INSULIN DETEMIR (LEVEMIR) 100 UNIT/ML SYR SQ SCH (09:53)
[2020-02-20] MEDS: PIOGLITAZONE 15 MG TAB PO SCH (09:53)
[2020-02-20] MEDS: INSULIN ASPART (NovoLOG) 100 UNIT/ML VIAL SQ SCH ×4 (09:57→20:47)
[2020-02-20 09:59] LABS: Glucose,Whole Blood 175 mg/dL (75-99)
--- NOTE | 2020-02-20 10:55 | P.DS ---
Providers Date of admission: 02/17/20 17:34 Expected date of discharge: 02/20/20 Attending physician: Peryr Christian Consults: 02/17/20 17:35 Consult Physician Urgent Consulting Provider: [facility] Consult Reason/Comments: acute cp, nstemi Do you want consulting provider notified?: Yes Consult Physician Urgent Consulting Provider: Migel Edmondson Consult Reason/Comments: esrd on hd Do you want consulting provider notified?: Yes Primary care physician: Ten Mckeon [facility] Course: 59-year-old male one of Dr. Mckeon patient with past medical history of end- stage renal disease on hemodialysis, CAD post angioplasty and stent placement 2 last heart catheter was done in February 09 with stent of the left circumflex and stent of the proximal LAD patient still have intermediate lesion involving the mid LAD. Patient seen Dr. Hinojosa regular basis and cardiology also he does his dialysis on regular basis. Patient was in hemodialysis on 02/17/2020 when he developed to have midsternal chest pain snf through more stabbing discomfort with worsening shortness of breath and palpitation his dialysis was stopped and patient was recommended to come to the emergency department after taking 2 sublingual nitroglycerin patient was transferred to the emergency room his troponin was mildly elevated EKG reveals sinus rhythm with nonspecific ST change no acute ischemic change was found patient will be seeing cardiology will be kept nothing by mouth for possible heart cath in the meanwhile continue to watch his troponin trend over the next 24 hours. 02/17: Patient is having no more chest pain, no shortness of breath, was seen cardiology troponin was elevated no change in EKG decided to do an echocardiogram and patient will be going for she scan if positive physical go for heart cath if negative will continue medical management. Patient does not require hemodialysis today which will be 02/18: Patient evaluated this morning, resting in bed comfortably. Patient had Lexiscan today which showed possible area of acute ischemia and severe left ventricular wall mid to apical levels in the LAD distribution. Patient will be going for cardiac cath. 02/19: Patient had cardiac cath this morning, was found to have patent stents in the left anterior descending artery and left circumflex, known chronic total occlusion of the right coronary artery, elevated left ventricular end-diastolic pressure. Per cardiologies notes, continue with medical management. Patient will need dialysis for the elevated left ventricular end-diastolic pressure before discharge. Once dialysis is complete, patient will be discharged home. Discharge diagnoses 1 chest pain and unstable angina 2 non-ST ID 3 paroxysmal atrial fibrillation 4 end-stage renal disease on hemodialysis 3 times a week. 5 ischemic cardiomyopathy. 6 type 2 diabetes 7 chronic neuropathy 8 hypertension 9 chronic anemia The above impression and plan of care have been discussed and directed by signing physician. Dinora Aldana nurse practitioner acting as scribe for signing physician. Patient Condition at Discharge: Stable Plan - Discharge Summary Discharge Rx Participant: No New Discharge Prescriptions: Continue Clopidogrel [Plavix] 75 mg PO DAILY #30 tab Insulin Glargine,Hum.rec.anlog [Basaglar Kwikpen U-100] 33 unit SQ DAILY Insulin Aspart [NovoLOG Flexpen] See Protocol SQ ACHS Calcium Acetate [PhosLo] 1,334 mg PO AC-TID PRN PRN Reason: W/MEALS LORazepam [Ativan] 2 mg PO TID PRN PRN Reason: Anxiety metOLazone [Zaroxolyn] 5 mg PO DAILY Furosemide [Lasix] 80 mg PO DAILY Triamcinolone 0.1% Ointment [Kenalog] 1 applic TOPICAL BID PRN PRN Reason: ITCHING/RASH Amiodarone [Cordarone] 100 mg PO DAILY Metoprolol Tartrate [Lopressor] 25 mg PO DAILY Isosorbide Mononitrate ER [Imdur] 30 mg PO DAILY #30 tab.er.24h Apixaban [Eliquis] 2.5 mg PO BID hydrALAZINE HCL [Apresoline] 50 mg PO TID hydrOXYzine pamoate [Vistaril] 100 mg PO TID PRN PRN Reason: Itching Pioglitazone [Actos] 15 mg PO DAILY traMADol HCL [Ultram] 50 mg PO TID PRN PRN Reason: Pain Allopurinol [Zyloprim] 100 mg PO DAILY Gabapentin 300 mg PO BID Losartan [Cozaar] 50 mg PO HS Metoprolol Tartrate [Lopressor] 12.5 mg PO HS Pantoprazole [Protonix] 40 mg PO DAILY Nitroglycerin Sl Tabs [Nitrostat] 0.4 mg SL Q5M PRN PRN Reason: Chest Pain Discharge Medication List Clopidogrel [Plavix] 75 mg PO DAILY #30 tab 03/05/18 [Rx] Insulin Glargine,Hum.rec.anlog [Basaglar Kwikpen U-100] 33 unit SQ DAILY 03/24/18 [History] Calcium Acetate [PhosLo] 1,334 mg PO AC-TID PRN 08/05/18 [History] Insulin Aspart [NovoLOG Flexpen] See Protocol SQ ACHS 08/05/18 [History] LORazepam [Ativan] 2 mg PO TID PRN 08/05/18 [History] Amiodarone [Cordarone] 100 mg PO DAILY 04/13/19 [History] Furosemide [Lasix] 80 mg PO DAILY 04/13/19 [History] Metoprolol Tartrate [Lopressor] 25 mg PO DAILY 04/13/19 [History] Triamcinolone 0.1% Ointment [Kenalog] 1 applic TOPICAL BID PRN 04/13/19 [History] metOLazone [Zaroxolyn] 5 mg PO DAILY 04/13/19 [History] Isosorbide Mononitrate ER [Imdur] 30 mg PO DAILY #30 tab.er.24h 07/22/19 [Rx] Apixaban [Eliquis] 2.5 mg PO BID 02/06/20 [History] Pioglitazone [Actos] 15 mg PO DAILY 02/06/20 [History] hydrALAZINE HCL [Apresoline] 50 mg PO TID 02/06/20 [History] hydrOXYzine pamoate [Vistaril] 100 mg PO TID PRN 02/06/20 [History] traMADol HCL [Ultram] 50 mg PO TID PRN 02/06/20 [History] Allopurinol [Zyloprim] 100 mg PO DAILY 02/17/20 [History] Gabapentin 300 mg PO BID 02/17/20 [History] Losartan [Cozaar] 50 mg PO HS 02/17/20 [History] Metoprolol Tartrate [Lopressor] 12.5 mg PO HS 02/17/20 [History] Nitroglycerin Sl Tabs [Nitrostat] 0.4 mg SL Q5M PRN 02/17/20 [History] Pantoprazole [Protonix] 40 mg PO DAILY 02/17/20 [History] Follow up Appointment(s)/Referral(s): Ermias Wayne [NON-STAFF] - Ten Mckeon DO [Primary Care Provider] - 1-2 days Skaf,Andry, MD [STAFF PHYSICIAN] - 1 Week Discharge Disposition: HOME WITH HOME HEALTH SERVICES
[2020-02-20 12:00] LABS: Glucose,Whole Blood 162 mg/dL (75-99)
[2020-02-20] MEDS ORDERED: MIDODRINE 5 MG TAB PO PRN (12:44)
--- NOTE | 2020-02-20 15:06 | PN ---
PROGRESS NOTE Patient is seen for followup for end-stage renal disease. He has just returned from cardiac cath, which did not show any significant need for intervention. The patient will be dialyzed today following which there are plans for discharge. However, during dialysis, patient's blood pressure had dropped significantly into the 70s and 80s and at this time, it appears that most likely I will hold the discharge and plan for dialysis again tomorrow if the patient is not able to tolerate his treatment today. PHYSICAL EXAMINATION: This morning when patient was seen, blood pressure was 136/72, heart rate 64 per minute. He was afebrile. EXAMINATION OF THE HEART: S1, S2. EXAMINATION OF THE LUNGS: Bilateral breath sounds are heard. Abdomen is soft, nontender. Examination of lower extremities shows edema 2 to 3+ bilaterally SENIOR STATISTICIAN EXAM: Grossly intact. LABS: Labs from yesterday 02/17 show potassium 4.3, sodium 135, hemoglobin 11.9 g/dL. ASSESSMENT: 1. End-stage renal disease, on hemodialysis, on Wednesday, Wednesday, Wednesday schedule. The patient will be dialyzed today however I was just recently informed blood pressure had dropped significantly. We were not able to get much fluid off. We may need to hold off on dialysis and plan for a treatment again tomorrow. We will give him midodrine and hold blood pressure medications in the morning prior to his dialysis. 2. Volume overload. Expect improvement with ongoing dialysis. 3. Chest pain, status post cardiac catheterization with no acute findings or need for intervention at this time. 4. Coronary artery disease with history of previous coronary stents. 5. Chronic kidney disease mineral bone disorder. PLAN: Hemodialysis today, however, patient has been hypotensive about an hour into his treatment. We will arrange for hemodialysis again tomorrow. Hep-Lock IV fluids. MMODL / IJN: [id number] /
[2020-02-20 17:04] LABS: Glucose,Whole Blood 290 mg/dL (75-99)
--- NOTE | 2020-02-20 17:06 | CDI ---
Documentation Clarification Form Date: 02/20/2020 04:49:12 PM From: Sonia Birmingham RN, CCDS Admit Date: 02/17/2020 05:34:00 PM Patient Name: Joel Gillette Visit Number: [id number] Discharge Date: ATTENTION: The Clinical Documentation Specialists (CDI) and [facility] Coding Staff appreciate your assistance in clarifying documentation. Please respond to the clarification below the line at the bottom and electronically sign. The CDI & [facility] Coding staff will review the response and follow-up if needed. Please note: Queries are made part of the Legal Health Record. If you have any questions, please contact the author of this message via ITS. Dr. Perry Christian Chronic CHF is documented in the past medical history with ongoing treatment. Please specify type of CHF you are treating. History/Risk Factors: Chronic CHF, ESRD, Atrial Fibrillation, Coronary artery disease, Diabetes Mellitus Clinical Indicators: 59-year-old male present to ED on 02/16 with complaints of chest pain, mild shortness of breath. 02/16 VS/Pulse OX: 131/64 61 18 98.0 96 % RA 02/16 BNP: 8690 02/16 Troponin I 0.036, 0.038 02/18 Echocardiogram Results: Overall left ventricular systolic function is normal with, an EF between 60-65 % 02/16 Chest X Ray: no active cardiopulmonary disease Treatment: Lasix 80 mg po daily Cardarone 100 mg po daily Apresoline 50 mg po tid Imdur 30 mg po daily Cozaar 50 mg po hs Zaraxolyn 5 mg po daily Lopressor 25 mg po daily and 12.5 mg po hs, In your professional opinion, can you please clarify the type of CHF if known? xx Chronic Diastolic Heart Failure: Unable to Determine Other, please specify (Last Revision: May 2017) MTDD
[2020-02-20 20:33] LABS: Glucose,Whole Blood 208 mg/dL (75-99)
[2020-02-20] MEDS: METOPROLOL TARTRATE 12.5 MG TAB PO SCH (20:47)
[2020-02-20] MEDS: LOSARTAN 50 MG TAB PO SCH (20:47)
[2020-02-21] MEDS: hydrALAZINE HCL 50 MG TAB PO SCH ×3 (00:30→15:58)
[2020-02-21 07:11] LABS: Glucose,Whole Blood 167 mg/dL (75-99)
[2020-02-21] MEDS: INSULIN ASPART (NovoLOG) 100 UNIT/ML VIAL SQ SCH ×2 (07:11→13:45)
[2020-02-21] MEDS: CALCIUM ACETATE 667 MG TAB PO SCH ×2 (07:11→11:25)
[2020-02-21] MEDS: INSULIN DETEMIR (LEVEMIR) 100 UNIT/ML SYR SQ SCH (07:11)
--- NOTE | 2020-02-21 07:11 | P.PN ---
Subjective Progress Note Date: 02/21/20 Principal diagnosis: Chest discomfort This is a very pleasant 59-year-old gentleman with coronary artery disease was admitted to the hospital with a chest discomfort and underwent myocardial perfusion imaging stress test and that revealed and ischemia. Because of that a heart catheterization was advised. The heart catheterization revealed chronic total occlusion of the RCA which is known from before along with patent stents in the LAD. The patient was seen this morning. He is asymptomatic from a cardiovascular standpoint of view. He denies any symptoms of chest pain or chest discomfort or shortness of breath or dizziness or lightheadedness or syncope. He is on [facility] medical treatment. From the cardiovascular standpoint of view, the patient possibly can be discharged home. Objective - Vital Signs Vital signs: Vital Signs Temp 98.2 F 02/20/20 20:00 Pulse 67 02/21/20 04:00 Resp 18 02/21/20 04:00 BP 154/72 02/21/20 04:00 Pulse Ox 96 02/21/20 04:00 Intake & Output 02/20/20 02/21/20 02/21/20 18:59 06:59 18:59 Intake Total 1060.3 Balance 1060.3 Weight 97.8 kg Intake: IV 150 Intake, IV Titration 170.3 Amount Sodium Chloride 0.9% 1, 75 000 ml @ 75 mls/hr IV . [id number] [facility] Rx#:[id number] Sodium Chloride 0.9% 1, 95.3 000 ml In Empty Bag 1 bag @ 1 ML/KG/HR 95.3 mls/hr IV .[id number] ONE Rx#: [id number] Oral 740 Other: Voiding Method Toilet # Voids 1 1 - Constitutional General appearance: Present: no acute distress - Respiratory Respiratory: bilateral: wheezing - Cardiovascular Rhythm: regular Heart sounds: normal: S1, S2 - Labs CBC & Chem 7: 02/18/20 09:25 02/18/20 09:25 Labs: Abnormal Lab Results - Last 24 Hours (Table) 02/20/20 02/20/20 02/20/20 Range/Units 09:57 11:58 17:02 POC Glucose (mg/dL) 175 H 162 H 290 H (75-99) mg/dL 02/20/20 Range/Units 20:26 POC Glucose (mg/dL) 208 H (75-99) mg/dL Assessment and Plan Assessment: Assessment #1 chest discomfort which has improved #2 coronary artery disease and #3 paroxysmal atrial fibrillation #4 end stage renal disease on dialysis Plan #1 continue the current medical regimen #2 the patient can be discharged home
--- NOTE | 2020-02-21 10:58 | P.PN ---
Subjective 59-year-old male one of Dr. Mckeon patient with past medical history of end- stage renal disease on hemodialysis, CAD post angioplasty and stent placement 2 last heart catheter was done in February 09 with stent of the left circumflex and stent of the proximal LAD patient still have intermediate lesion involving the mid LAD. Patient seen Dr. Hinojosa regular basis and cardiology also he does his dialysis on regular basis. Patient was in hemodialysis on 02/17/2020 when he developed to have midsternal chest pain [facility] through more stabbing discomfort with worsening shortness of breath and palpitation his dialysis was stopped and patient was recommended to come to the emergency department after taking 2 sublingual nitroglycerin patient was transferred to the emergency room his troponin was mildly elevated EKG reveals sinus rhythm with nonspecific ST change no acute ischemic change was found patient will be seeing cardiology will be kept nothing by mouth for possible heart cath in the meanwhile continue to watch his troponin trend over the next 24 hours. 02/17: Patient is having no more chest pain, no shortness of breath, was seen cardiology troponin was elevated no change in EKG decided to do an echocardiogram and patient will be going for she scan if positive physical go for heart cath if negative will continue medical management. Patient does not require hemodialysis today which will be 02/18: Patient evaluated this morning, resting in bed comfortably. Patient had Lexiscan today which showed possible area of acute ischemia and severe left ventricular wall mid to apical levels in the LAD distribution. Patient will be going for cardiac cath. 02/19 Patient had cardiac cath this morning, was found to have patent stents in the left anterior descending artery and left circumflex, known chronic total o cclusion of the right coronary artery, elevated left ventricular end-diastolic pressure. Per cardiologies notes, continue with medical management. Patient will need dialysis for the elevated left ventricular end-diastolic pressure before discharge. Once dialysis is complete, patient will be discharged home. 02/20: Patient resting in bed comfortably, in no acute distress. Patient denies any chest pain or shortness of breath. Discharge was held yesterday, during dialysis patient had hypotensive event and dialysis was ended early. Patient will finish course of dialysis today and discharge afterwards. Objective - Vital Signs Vital signs: Vital Signs Temp 97.1 F L 02/21/20 08:00 Pulse 70 02/21/20 08:00 Resp 18 02/21/20 08:00 BP 180/88 02/21/20 08:00 Pulse Ox 97 02/21/20 08:00 Intake & Output 02/20/20 02/21/20 02/21/20 18:59 06:59 18:59 Intake Total 1060.3 118 Balance 1060.3 118 Weight 97.8 kg Intake: IV 150 Intake, IV Titration 170.3 Amount Sodium Chloride 0.9% 1, 75 000 ml @ 75 mls/hr IV . [id number] [facility] Rx#:[id number] Sodium Chloride 0.9% 1, 95.3 000 ml In Empty Bag 1 bag @ 1 ML/KG/HR 95.3 mls/hr IV .[id number] [facility] Rx#: [id number] Oral 740 118 Other: Voiding Method Toilet Toilet # Voids 1 1 - Exam General Appearance: Alert, cooperative, no distress, appears stated age Neck HEENT: Supple, no lymphadenopathy, no thyroid enlargement, no carotid bruits. Lungs: Decreased breath some bilaterally without rhonchi has mild crackles slight wheezes in the right side. Chest Wall: Decrease expansion with deep inspiration no tenderness and no deformity was found on exam, no costochondral pain or discomfort. Heart: Regular rate and rhythm, S1, S2 normal, no murmur, rub or gallop. Positive history for JVD. Back: Symmetric, no curvature, ROM normal, no CVA tenderness. Abdomen: Soft, non-tender, bowel sounds active all four quadrants, no masses, no organomegaly. Extremities: Trace edema significant discoloration from the knee down bilaterally. Pulses: 2+ and symmetric. Skin: Skin color, texture, tugor normal, no rashes or lesions. Neurologic: Alert oriented x3 cranial nerves II through XII intact, no motor deficit - Labs CBC & Chem 7: 02/18/20 09:25 02/18/20 09:25 Labs: Abnormal Lab Results - Last 24 Hours (Table) 02/20/20 02/20/20 02/20/20 Range/Units 11:58 17:02 20:26 POC Glucose (mg/dL) 162 H 290 H 208 H (75-99) mg/dL 02/21/20 Range/Units 07:08 POC Glucose (mg/dL) 167 H (75-99) mg/dL Assessment and Plan Plan: 1 chest pain and unstable angina. Heart catheterization revealed chronic total occlusion of the RCA and patent stents of the LAD 2 non-ST TX. Status post heart cath, continue medical management 3 paroxysmal atrial remain on Eliquis and metoprolol, along with amiodarone 100 mg daily 4 end-stage renal disease on hemodialysis 3 times a week. Nephrology on consult, will finish dialysis today 5 ischemic cardiomyopathy: Continue patient on Zaroxolyn 18, Lopressor, hydralazine, nitro and Lasix. 6 type 2 diabetes: On Levemir 33 units daily along with NovoLog per sliding scales coverage still on Actos 15 mg daily. 7 chronic neuropathy: Remain on gabapentin 300 mg daily. 8 hypertension: Still on metoprolol 37.5 mg daily losartan 50 mg a day hydralazine 25 mg 3 times a day. 9 chronic anemia: On iron and Procrit. 10 GI prophylaxis: Remain on Pepcid. 11 DVT prophylaxis: Still on Eliquis. Plan: Continue to watch patient overnight echo and stress test tomorrow if abnormal patient be going for heart cath if normal will continue medical management. The above impression and plan of care have been discussed and directed by signing physician. Dinora Aldana nurse practitioner acting as scribe for signing physician.
--- NOTE | 2020-02-21 11:21 | CDI ---
Documentation Clarification Form Date: 02/21/2020 10:29:24 AM From: Sonia Birmingham RN, CCDS Admit Date: 02/17/2020 05:34:00 PM Patient Name: Joel Gillette Visit Number: [id number] Discharge Date: ATTENTION: The Clinical Documentation Specialists (CDI) and [facility] Coding Staff appreciate your assistance in clarifying documentation. Please respond to the clarification below the line at the bottom and electronically sign. The CDI & [facility] Coding staff will review the response and follow-up if needed. Please note: Queries are made part of the Legal Health Record. If you have any questions, please contact the author of this message via ITS. Dr. Perry Christian The patients principal diagnosis has not been clearly identified and requires clarification. He presented with chest discomfort with known history of coronary artery disease. Chest pain and unstable angina and Non-ST OH is documented in the discharge diagnosis. Please render your opinion on the most appropriate diagnosis after study is responsible for the admission. History/Risk factors: Coronary artery disease, ESRD, Paroxysmal atrial fibrillation, Hypertension, Ischemic cardiomyopathy, ESRD on HD, Clinical Indicators: 59-year-old male was in HD on 02/16 and developed midsternal chest pain, more stabbing discomfort with worsening shortness of breath and palpitations. He was transferred to ED for evaluation. 02/16 EKG reveals sinus rhythm with nonspecific ST change no acute ischemic change. 02/16 Lab findings: Troponin I 0.036, 0.038 BNP 8690 02/16 Vital Signs: 131/64 61 18 98.0 98 % RA 02/18 ECHO: Overall left ventricular systolic function is normal with, an EF between 60-65 % 02/18 Stress test: Cannot exclude area of acute ischemia anterior left ventricular wall mid to apical levels in the LAD distribution. 02/19 Left heart catheterization: Patent stents in the left anterior descending artery and left circumflex. Known chronic total occlusion of the right coronary artery which fills by collaterals. Elevated left ventricular end-diastolic pressure I advised maximized medical treatment including aggressive cholesterol control. 02/20 Cardiology progress note: Chest discomfort which has improved. Coronary artery disease. Paroxysmal atrial fibrillation Treatment: Dilaudid 1 MG IVP ONCE STA ASA 325 PO ONCE STA Apresoline 25 MG PO TID Lopressor 25 MG PO DAILY, 12.5 MG PO HS Zaroxolyn 5 MG PO DAILY Cozaar 50 MG PO HS Imdur 30 mg PO DAILY Lasix 80 MG PO DAILY In your professional opinion, can you please clarify which diagnosis, after study, accounted for the patients presenting symptoms and was the reason chiefly responsible for the admission? Chest pain with unstable angina in a patient with history of coronary artery disease xx Non-ST OH Other, specify Unable to determine (Last Revision: May 2017) MTDD
[2020-02-21] MEDS: CLOPIDOGREL 75 MG TAB PO SCH (11:24)
[2020-02-21] MEDS: traMADol 50 MG TAB PO PRN (11:24)
[2020-02-21] MEDS: APIXABAN 2.5 MG TABLET PO SCH (11:24)
[2020-02-21] MEDS: GABAPENTIN 300 MG CAP PO SCH (11:25)
[2020-02-21] MEDS: allopurinoL 100 MG TAB PO SCH (11:25)
[2020-02-21] MEDS: PANTOPRAZOLE 40 MG TABLET PO SCH (11:25)
[2020-02-21 12:00] VITALS: TEMP 97
[2020-02-21 12:04] LABS: Glucose,Whole Blood 126 mg/dL (75-99)
[2020-02-21 13:06] VITALS: BP 180/60; PULSE 73; RESP 18
--- NOTE | 2020-02-21 13:08 | PN ---
PROGRESS NOTE The patient is seen for followup for end-stage renal disease. The patient was dialyzed yesterday. However, his blood pressure had dropped significantly. Therefore, we did not get much fluid off. The patient will be dialyzed again today and following his treatment, he could be discharged. He denies any chest pains or shortness of breath. Blood pressure today has improved. In fact it is a little bit on the high side. PHYSICAL EXAMINATION: This morning blood pressure was 154/72, heart rate 67 per minute. He is afebrile. EXAMINATION OF THE HEART: S1, S2. EXAMINATION OF THE LUNGS: Bilateral breath sounds are heard. Abdomen is soft, nontender. Examination of lower extremities shows edema 2+ bilaterally. SENIOR NET DEVELOPER EXAM: Grossly intact. LABS: Labs show potassium of 4.3 from 02/17. ASSESSMENT: 1. End-stage renal disease, on hemodialysis on a Wednesday, Wednesday, Wednesday schedule as outpatient. 2. Status post cardiac catheterization with no significant acute findings or need for intervention. 3. Coronary artery disease with previous history of coronary artery stents. 4. Chronic kidney disease mineral bone disorder. 5. Hypertension with episode of hypotension yesterday during treatment. PLAN: Repeat hemodialysis today, UF of about 2 to 2.5 L as tolerated. Hold blood pressure medications prior to treatment. Patient can be discharged post dialysis. His dry weight will need to be adjusted as outpatient. MMODL / IJN: [id number] /
[2020-02-21] MEDS: METOPROLOL TARTRATE 25 MG TAB PO SCH (13:09)
[2020-02-21] MEDS: FUROSEMIDE 80 MG TAB PO SCH (13:09)
[2020-02-21] MEDS: AMIODARONE 100 MG TAB PO SCH (13:09)
[2020-02-21] MEDS: ISOSORBIDE MONONITRATE ER 30 MG TAB.ER.24H PO SCH (13:09)
[2020-02-21] MEDS: PIOGLITAZONE 15 MG TAB PO SCH (13:09)
[2020-02-21] MEDS: metOLazone 5 MG TAB PO SCH (13:09)
[2020-02-21] MEDS: hydrOXYzine pamoate 25 MG CAP PO PRN (13:12)
[2020-02-21 14:18] LABS: Glucose,Whole Blood 152 mg/dL (75-99)
--- NOTE | 2020-02-29 07:38 | CDI ---
Documentation Clarification Form Date: 02/28/2020 12:29:00 PM From: Sonia Birmingham RN, CCDS Admit Date: 02/17/2020 05:34:00 PM Patient Name: Joel Gillette Visit Number: [id number] Discharge Date: 02/21/2020 04:15:00 PM ATTENTION: The Clinical Documentation Specialists (CDI) and [facility] Coding Staff appreciate your assistance in clarifying documentation. Please respond to the clarification below the line at the bottom and electronically sign. The CDI & [facility] Coding staff will review the response and follow-up if needed. Please note: Queries are made part of the Legal Health Record. If you have any questions, please contact the author of this message via ITS. Dr. Janine Nguyen Blood pressure drop during dialysis is documented in the progress note on 02/19. Hypotension during dialysis is documented in the progress notes on 02/21/20. Please render your opinion on the cause effect relationship of hypotension and dialysis if any. History/Risk Factors: Diabetes Mellitus, ESRD on HD, paroxysmal atrial fibrillation, chronic total occlusion of RCA Clinical Indicators: 59-year-old male present to ED on 02/16 with complaints of chest pain while in dialysis. Per attending physician he was ruled in for Non-ST [place]. 02/16 Vital signs on admission: 131/64 61 18 98 96 % RA 02/16 Lab: BUN 58, Cr 4.48 02/19 Hemodialysis treatment record: Patient was received post-Cath at 11:30 Vital signs 117/42 57 22. Per report at 12:15 BP started to trend down. Blood pressure 88/46, pulse 58, respiration 18. At 12:20 vitas signs: 70/38 59, 18 and Ultrafiltration stopped. Treatment: Midodrine 10 MG PO DAILY PRN (Hypotension Apresoline 50 MG PO TID (hold prior to HD) Monitor dry weight per orders In order to accurately reflect this patients severity of illness, please clarify if the hypotension: -is a complication of hemodialysis (specify) -is an expected outcome of the hemodialysis -is related to co-morbid condition(s) of (specify -Other please specify -Unable to determine (Last Revision: March 2019) hypotension can get worse with HD. Other reasons for hypotension also present including catheterization few hrs before HD MTDD
== END 2020-02-21 16:15 | disposition home health service (06) | DRG 280 ==
LOC: EC 14:53 → 3SCARD 17:34
PROVIDERS: ADMIT Internal Medicine Geriatric Medicine; ATTEND Internal Medicine Geriatric Medicine
PROC: 5A1D70Z Performance of Urinary Filtration, Intermittent, Less than 6 Hours Per Day (ICD-10-PCS; 2020-02-20)
PROC: B2111ZZ Fluoroscopy of Multiple Coronary Arteries using Low Osmolar Contrast (ICD-10-PCS; principal; 2020-02-20 07:30)
PROC: 4A023N7 Measurement of Cardiac Sampling and Pressure, Left Heart, Percutaneous Approach (ICD-10-PCS; principal; 2020-02-20 07:30)
DX: I21.4 Non-ST elevation (NSTEMI) myocardial infarction (principal); N18.6 End stage renal disease; I13.2 Hypertensive heart and chronic kidney disease with heart failure and with stage 5 chronic kidney disease, or end stage renal disease; I50.32 Chronic diastolic (congestive) heart failure; I95.3 Hypotension of hemodialysis; D63.1 Anemia in chronic kidney disease; E83.9 Disorder of mineral metabolism, unspecified; E11.22 Type 2 diabetes mellitus with diabetic chronic kidney disease; E11.40 Type 2 diabetes mellitus with diabetic neuropathy, unspecified; I48.0 Paroxysmal atrial fibrillation; G25.81 Restless legs syndrome; Z99.2 Dependence on renal dialysis; Z79.4 Long term (current) use of insulin; I25.110 Atherosclerotic heart disease of native coronary artery with unstable angina pectoris; I25.5 Ischemic cardiomyopathy; I25.2 Old myocardial infarction; F32.9 Major depressive disorder, single episode, unspecified; F41.9 Anxiety disorder, unspecified; K21.9 Gastro-esophageal reflux disease without esophagitis; Z79.01 Long term (current) use of anticoagulants; Z79.02 Long term (current) use of antithrombotics/antiplatelets; Z79.899 Other long term (current) drug therapy; Z87.891 Personal history of nicotine dependence; Z86.69 Personal history of other diseases of the nervous system and sense organs; Z95.5 Presence of coronary angioplasty implant and graft; Z86.010 Personal history of colon polyps; Z87.39 Personal history of other diseases of the musculoskeletal system and connective tissue; Z87.11 Personal history of peptic ulcer disease; Z98.890 Other specified postprocedural states; Z88.1 Allergy status to other antibiotic agents; Z88.5 Allergy status to narcotic agent; Z88.0 Allergy status to penicillin; Z88.8 Allergy status to other drugs, medicaments and biological substances; H91.90 Unspecified hearing loss, unspecified ear; E78.5 Hyperlipidemia, unspecified; M10.9 Gout, unspecified; H54.8 Legal blindness, as defined in USA; Z80.1 Family history of malignant neoplasm of trachea, bronchus and lung; Z80.8 Family history of malignant neoplasm of other organs or systems; Z83.3 Family history of diabetes mellitus; Z82.49 Family history of ischemic heart disease and other diseases of the circulatory system; Z82.61 Family history of arthritis; Z83.2 Family history of diseases of the blood and blood-forming organs and certain disorders involving the immune mechanism; Z82.69 Family history of other diseases of the musculoskeletal system and connective tissue; Z82.0 Family history of epilepsy and other diseases of the nervous system
CPT/HCPCS: 36415; 71046; 78452; 80048; 80053; 83735; 83880; 84484; 85025; 85610; 85730; 90935; 93005; 93017; 93306; 93458; 96374; 99285

== ENCOUNTER 2020-02-26 11:22 | Emergency (ER) | payer MEDICARE, OTHER ==
[2020-02-26 11:29] VITALS: TEMP 98.6
[2020-02-26] MEDS ORDERED: HYDROmorphone 1 MG/ML 1 ML SYRINGE IM STA (12:27)
--- NOTE | 2020-02-26 13:15 | CT ---
EXAMINATION TYPE: CT brain cspine wo con DATE OF EXAM: 02/26/2020 COMPARISON: MRI brain February 19, 2018 HISTORY: Fall on centers with headache and neck pain. CT DLP: 990.5 and 497.8 mGycm. Automated Exposure Control for Dose Reduction was Utilized. TECHNIQUE: CT scan of the head and cervical spine are performed without contrast. FINDINGS: There is no acute intracranial hemorrhage or midline shift identified. [id number] D iffuse ventricular and sulcal prominence. Mild low attenuation in the periventricular white matter. V isualized calvarium is intact. Small left parietal acute scalp hematoma axial image 47. The globes ar e intact and the visualized sinuses are clear. Cervical spine is visualized in its entirety from C1 through upper thoracic levels and demonstrates s traightened alignment without evidence of acute fracture or dislocation. Prevertebral soft tissue ap pears within normal limits. The C1-C2 articulation is within normal limits on the coronal images. V ertebral body heights are maintained. Mild to moderate disc space narrowing right C4-C5 level. Slight grade 1 anterolisthesis C5 on C6 with mild disc space narrowing. Spinal canal grossly preserved. Axi al images show mild to moderate multilevel uncovertebral facet degenerative changes. There is heterog eneous slightly enlarged multinodular goiter. Lung apices show no pneumothorax. IMPRESSION: 1. There is no acute fracture or dislocation evident in the cervical spine. 2. No acute intracranial hemorrhage or midline shift is seen.
--- NOTE | 2020-02-26 13:21 | CT ---
EXAMINATION TYPE: CT thor lumbar spine wo con DATE OF EXAM: 02/26/2020 COMPARISON: None. HISTORY: Fall centimeters with mid and low back pain. CT DLP: 2263.5 mGycm Automated exposure control for dose reduction was used. FINDINGS: Thoracic spine shows dextroconvex scoliosis or positioning centered in the midthoracic spine. Sagitta l images show straightening of thoracic spine. There is moderate to severe multilevel right lateral a nd anterior spurring. No acute fracture or dislocation is evident. Spinal canal is grossly preserved. There are 5 lumbar type vertebra. Lumbar spine shows satisfactory alignment without evidence of acute fracture or dislocation. Vertebral body heights and disc space heights are maintained. Spinal canal is grossly preserved. Multilevel facet arthropathy in the mid to lower lumbar spine is present. Small posterior disc herniation at L4-L5 and L5-S1 levels are noted. Cardiomegaly is present. There is artery calcification and/or stents identified. Respiratory motion artifact degradation with central intralobular septal thickening and groundglass o pacities in both lungs. Cholecystectomy clips. Mrmp-xt-ochxtufu generalized that replaced atrophy of the visualized pancreas. Moderate calcified plaque of the abdominal aorta extends into iliac branch vessels. IMPRESSION: No acute fracture or dislocation in the thoracic or lumbar spine.
[2020-02-26 13:52] VITALS: BP 158/77; PULSE 70; RESP 18
--- NOTE | 2020-02-26 14:24 | ED ---
Head Injury HPI - General Chief complaint: Head Injury Stated complaint: fall/lump on head Source: patient Mode of arrival: wheelchair Limitations: no limitations - History of Present Illness Initial comments: 5-year-old male past medical history of A. fib, end-stage renal disease on hemodialysis who presents emergency room and after he sustained a head injury. The patient reports that he was on his way to dialysis. His son was driving him. He states he was attempting to get into his son's truck when he slipped on ice and fell backwards. He hit the back of his head or no loss of consciousness. He is on eliquis. Patient reports that he also fell onto his coccyx. He was having difficulty standing and therefore climbed into the truck. Dialysis would not see the patient until he was cleared. Patient denies any neck pain. No numbness, tingling or weakness in his extremities. Denies any headaches or visual changes. Does report to midthoracic back pain. No abd ominal pain. Denies chest pain or shortness of breath. No other alleviating, precipitating or modifying factors - Related Data Home Medications Medication Instructions Recorded Confirmed Insulin Glargine,Hum.rec.anlog 33 unit SQ DAILY 03/24/18 02/26/20 [Basaglar Kwikpen U-100] Calcium Acetate [PhosLo] 1,334 mg PO AC-TID PRN 08/05/18 02/26/20 Insulin Aspart [NovoLOG Flexpen] See Protocol SQ ACHS 08/05/18 02/26/20 LORazepam [Ativan] 2 mg PO TID PRN 08/05/18 02/26/20 Amiodarone [Cordarone] 100 mg PO DAILY 04/13/19 02/26/20 Furosemide [Lasix] 80 mg PO DAILY 04/13/19 02/26/20 Metoprolol Tartrate [Lopressor] 25 mg PO DAILY 04/13/19 02/26/20 Triamcinolone 0.1% Ointment 1 applic TOPICAL BID PRN 04/13/19 02/26/20 [Kenalog] metOLazone [Zaroxolyn] 5 mg PO DAILY 04/13/19 02/26/20 Apixaban [Eliquis] 2.5 mg PO BID 02/06/20 02/26/20 Pioglitazone [Actos] 15 mg PO DAILY 02/06/20 02/26/20 hydrALAZINE HCL [Apresoline] 50 mg PO TID 02/06/20 02/26/20 hydrOXYzine pamoate [Vistaril] 100 mg PO TID PRN 02/06/20 02/26/20 traMADol HCL [Ultram] 50 mg PO TID PRN 02/06/20 02/26/20 Allopurinol [Zyloprim] 100 mg PO DAILY 02/17/20 02/26/20 Gabapentin 300 mg PO BID 02/17/20 02/26/20 Losartan [Cozaar] 50 mg PO HS 02/17/20 02/26/20 Metoprolol Tartrate [Lopressor] 12.5 mg PO HS 02/17/20 02/26/20 Nitroglycerin Sl Tabs [Nitrostat] 0.4 mg SL Q5M PRN 02/17/20 02/26/20 Pantoprazole [Protonix] 40 mg PO DAILY 02/17/20 02/26/20 Previous Rx's Medication Instructions Recorded Clopidogrel [Plavix] 75 mg PO DAILY #30 tab 03/05/18 Isosorbide Mononitrate ER [Imdur] 30 mg PO DAILY #30 tab.er.24h 07/22/19 HYDROcodone/APAP 10-325MG [[place] 1 tab PO Q4HR PRN 3 Days #18 tab 02/26/20 10-325] Allergies/Adverse reactions: Allergies Allergy/AdvReac Type Severity Reaction Status Date / Time bumetanide [From Bumex] Allergy Hallucinati Verified 02/26/20 13:04 ons Penicillins Allergy Anaphylaxis Verified 02/26/20 13:04 spironolactone Allergy Hallucinati Verified 02/26/20 13:04 ons morphine AdvReac Confusion Verified 02/26/20 13:04 rivaroxaban [From Xarelto] AdvReac Bloody Nose Verified 02/26/20 13:04 All antibiotics except Keflex Allergy Unknown Uncoded 02/26/20 11:29 Childhood Review of Systems ROS Statement: Those systems with pertinent positive or pertinent negative responses have been documented in the HPI. ROS Other: All systems not noted in ROS Statement are negative. Past Medical History Past Medical History: Atrial Fibrillation, Coronary Artery Disease (CAD), Heart Failure, Diabetes Mellitus, Dialysis, Eye Disorder, GERD/Reflux, Hearing Disorder / Deafness, Hyperlipidemia, Hypertension, Myocardial Infarction ([place]), Renal Disease, Syncope Additional Past Medical History / Comment(s): IDDM type II, neuropathy bilateral hands/feet, ESRD with hemodialysis on M/W/ with last time being 10/14/18, chronic anemia, LVH, Afib with RVR, MIs, chronic CHF, R eye blindness, L eye legally blind, RLS, pt unsure if he has gout, vertigo at times, balance issues at times, stomach ulcer at age 17yrs, sinus problems, very [place] R ear. Last Myocardial Infarction Date:: 08/09/18 History of Any Multi-Drug Resistant Organisms: None Reported Past Surgical History: Heart Catheterization, Heart Catheterization With Stent Additional Past Surgical History / Comment(s): TTT, PD catheter placement/since removed, 2016 L arm fistula, fistula gram with balloon for stenosis, L eye vitrectomy, thyroid needle aspiration-negative, L leg cyst, colonoscopy with benign polypectomy. Past Anesthesia/Blood Transfusion Reactions: Postoperative Nausea & Vomiting (PONV) Date of Last Stent Placement:: 03-03-18 Past Psychological History: Anxiety, Depression Smoking Status: Former smoker Past Alcohol Use History: None Reported Past Drug Use History: None Reported - Past Family History Father Family Medical History: Cancer, Coronary Artery Disease (CAD), Hyperlipidemia Additional Family Medical History / Comment(s): Lung/BRAIN CANCER Mother Family Medical History: Diabetes Mellitus, Deep Vein Thrombosis (DVT), Osteoarthritis (OA) Additional Family Medical History / Comment(s): DJD Sister(s) Family Medical History: Diabetes Mellitus Additional Family Medical History / Comment(s): Patient has one sister with diabetes mellitus type 2, SLE, MS. Brother(s) Family Medical History: Diabetes Mellitus Additional Family Medical History / Comment(s): Patient has 4 kids no major medical problems. Daughter(s) Family Medical History: No Reported History Additional Family Medical History / Comment(s): Patient has 2 daughters no major medical problems. Son(s) Family Medical History: No Reported History Additional Family Medical History / Comment(s): Patient has 2 sons no major medical problems. General Exam Limitations: no limitations Course Vital Signs 02/26/20 02/26/20 11:25 13:49 Temperature 98.6 F Pulse Rate 72 70 Respiratory 20 18 Rate Blood Pressure 190/81 158/77 O2 Sat by Pulse 99 96 Oximetry Medical Decision Making - Medical Decision Making Upon arrival patient is placed in room 19. A thorough history and physical exam was performed. Patient sent over for CT of his brain and cervical spine. Imaging was performed patient's thoracic and lumbar spine. He was given 1 mg of Dilaudid for pain control. Radiology studies are reviewed. CT demonstrates no acute fracture dislocation of the cervical spine. No acute hemorrhage or midline shift. CT of the thoracic and lumbar spine demonstrates no acute fracture or dislocation. Results are discussed with the patient. He reports improvement in his pain at this time. He'll be discharged home. We did call his dialysis center states that the patient may resent tomorrow for his dialysis. His son is to call in the morning. Patient will be given a small pre scription for [place] as he normally takes this at home for pain control and reports that he is out of his medications. If he has any new or worsening symptoms he should return to the emergency room. Patient was discharged home in stable condition Disposition Clinical Impression: Dialysis patient, Head injury, Back pain Disposition: HOME SELF-CARE Condition: Stable Instructions (If sedation given, give patient instructions): Head Injury (ED) Additional Instructions: Please follow-up with your primary care doctor in 2-4 days. Return to the emergency room for any new or worsening symptoms Prescriptions: HYDROcodone/APAP 10-325MG [[place] 10-325] 1 tab PO Q4HR PRN 3 Days #18 tab PRN Reason: Pain Is patient prescribed a controlled substance at d/c from ED?: Yes When asked, does pt state using other controlled substances?: No If prescribed controlled substance>3 days was MAPS reviewed?: Prescribed <3 Days If opioid is for acute pain is fill amount 7 days or less?: Yes If Rx opioid, was Start Talking consent form obtained?: Yes Referrals: Ten Mckeon DO [Primary Care Provider] - 1-2 days Time of Disposition: 14:19
== END 2020-02-26 14:45 | disposition home or self-care (01) ==
LOC: EC 11:22
DX: S09.90XA Unspecified injury of head, initial encounter (principal); M54.6 Pain in thoracic spine; F41.9 Anxiety disorder, unspecified; F32.9 Major depressive disorder, single episode, unspecified; I48.91 Unspecified atrial fibrillation; I13.2 Hypertensive heart and chronic kidney disease with heart failure and with stage 5 chronic kidney disease, or end stage renal disease; E11.22 Type 2 diabetes mellitus with diabetic chronic kidney disease; E11.40 Type 2 diabetes mellitus with diabetic neuropathy, unspecified; N18.6 End stage renal disease; K21.9 Gastro-esophageal reflux disease without esophagitis; E78.5 Hyperlipidemia, unspecified; I50.9 Heart failure, unspecified; I25.2 Old myocardial infarction; Z79.4 Long term (current) use of insulin; Z79.899 Other long term (current) drug therapy; Z79.01 Long term (current) use of anticoagulants; Z88.0 Allergy status to penicillin; Z88.5 Allergy status to narcotic agent; Z88.8 Allergy status to other drugs, medicaments and biological substances; Z87.891 Personal history of nicotine dependence; Z95.5 Presence of coronary angioplasty implant and graft; Z99.2 Dependence on renal dialysis; W00.2XXA Other fall from one level to another due to ice and snow, initial encounter; Y92.89 Other specified places as the place of occurrence of the external cause
CPT/HCPCS: 72128; 72125; 72131; 70450; 99283; 96372; J1170

== ENCOUNTER → 2020-03-05 | Outpatient (CLI) | payer MEDICARE, OTHER ==
--- NOTE | 2020-03-05 15:59 | MR ---
EXAMINATION TYPE: MR lumbar spine wo con DATE OF EXAM: 03/05/2020 COMPARISON: CT lumbar spine February 26, 2020 HISTORY: Chronic pain, Low back pain, fall TECHNIQUE: Multiplanar, multisequence imaging of the lumbar spine is performed without IV contrast. FINDINGS: Sagittal images of the lumbar spine show vertebral body heights to remain satisfactory. Sli ght grade 1 retrolisthesis L5 on S1 redemonstrated. Disc desiccation at L5-S1 and L2-L3 level. Disc s pace heights fairly well maintained. The conus medullaris is normal in position and signal ending inf erior L1 level. The bone marrow signal intensity is within normal limits. Focal mild multilevel spur ring with more prominent anterior spurring at L1-L2 level again seen. Axial images show artifact related to patient's large body habitus in the upper lumbar levels. Axial images at T12-L1, L1-L2, and L2-L3 levels all felt to be within normal limits. Mild facet degenerative changes seen at L3-L4 level. Axial images at L4-L5 level shows moderate facet degenerative changes and ligament flavum hypertrophy effacing posterior lateral thecal sac on axial image 8. There is mild broad disc bulge minimally eff acing the anterior thecal sac. There is moderate right and mild left-sided anterior inferior neural f oraminal narrowing. Axial images at L5-S1 level shows [id number] facet degenerative changes bilaterally. There is f ocal right paracentral disc protrusion minimally effacing anterior thecal sac. There is vtii-cl-[id number] ate bilateral neural foraminal narrowing at this level identified. Paraspinal muscle bulk is fairly well maintained. Simple appearing 2.2 cm thin-walled cyst medially r ight kidney redemonstrated on axial image 23. IMPRESSION: [id number] degenerative changes in the lower lumbar spine as detailed above
== END | disposition home or self-care (01) ==
LOC: RADMRIMAIN 14:37
PROVIDERS: ATTEND Family Medicine
DX: M47.816 Spondylosis without myelopathy or radiculopathy, lumbar region (principal)
CPT/HCPCS: 72148

== ENCOUNTER 2020-03-28 00:09 | Emergency (ER) | payer MEDICARE, OTHER ==
[2020-03-28 00:17] VITALS: BP 200/87; PULSE 72; RESP 20; TEMP 98.7
[2020-03-28 00:29] LABS: Glucose,Whole Blood 351 mg/dL (75-99)
[2020-03-28] MEDS ORDERED: GELATIN SPONGE,ABSORB (SMALL) 1 EACH SPONGE TOPICAL STA (00:33)
[2020-03-28] MEDS ORDERED: INSULIN ASPART (NovoLOG) 100 UNIT/ML VIAL SQ STA (00:33)
[2020-03-28] MEDS ORDERED: CEPHALEXIN 500MG STARTER PACK 4 CAP BTL PO STA (00:39)
--- NOTE | 2020-03-28 00:39 | ED ---
Wound/Laceration HPI - General Chief Complaint: Wound/Laceration Stated Complaint: foot laceration Time Seen by Provider: 03/28/20 00:23 Source: patient Mode of arrival: wheelchair Limitations: no limitations - History of Present Illness Initial Comments: 59-year-old male patient presents to the emergency department today for a bleeding wound to the right second toe. Patient states he accidentally stubbed his toe earlier today. States his been bleeding throughout the day and is unable to get it to stop. States he does take Eliquis. Patient does have neuropathy and has diminished feeling to his feet. Denies any dizziness or weakness. Denies any syncope. Does have a history of diabetes. Patient denies any headache, neck pain, back pain, chest pain, shortness of breath, dizziness, weakness, abdominal pain, nausea, vomiting, or difficulties with bowel movements or urination. - Related Data Home Medications Medication Instructions Recorded Confirmed Insulin Glargine,Hum.rec.anlog 33 unit SQ DAILY 03/24/18 02/26/20 [Basaglar Kwikpen U-100] Calcium Acetate [PhosLo] 1,334 mg PO AC-TID PRN 08/05/18 02/26/20 Insulin Aspart [NovoLOG Flexpen] See Protocol SQ ACHS 08/05/18 02/26/20 LORazepam [Ativan] 2 mg PO TID PRN 08/05/18 02/26/20 Amiodarone [Cordarone] 100 mg PO DAILY 04/13/19 02/26/20 Furosemide [Lasix] 80 mg PO DAILY 04/13/19 02/26/20 Metoprolol Tartrate [Lopressor] 25 mg PO DAILY 04/13/19 02/26/20 Triamcinolone 0.1% Ointment 1 applic TOPICAL BID PRN 04/13/19 02/26/20 [Kenalog] metOLazone [Zaroxolyn] 5 mg PO DAILY 04/13/19 02/26/20 Apixaban [Eliquis] 2.5 mg PO BID 02/06/20 02/26/20 Pioglitazone [Actos] 15 mg PO DAILY 02/06/20 02/26/20 hydrALAZINE HCL [Apresoline] 50 mg PO TID 02/06/20 02/26/20 hydrOXYzine pamoate [Vistaril] 100 mg PO TID PRN 02/06/20 02/26/20 traMADol HCL [Ultram] 50 mg PO TID PRN 02/06/20 02/26/20 Allopurinol [Zyloprim] 100 mg PO DAILY 02/17/20 02/26/20 Gabapentin 300 mg PO BID 02/17/20 02/26/20 Losartan [Cozaar] 50 mg PO HS 02/17/20 02/26/20 Metoprolol Tartrate [Lopressor] 12.5 mg PO HS 02/17/20 02/26/20 Nitroglycerin Sl Tabs [Nitrostat] 0.4 mg SL Q5M PRN 02/17/20 02/26/20 Pantoprazole [Protonix] 40 mg PO DAILY 02/17/20 02/26/20 Previous Rx's Medication Instructions Recorded Clopidogrel [Plavix] 75 mg PO DAILY #30 tab 03/05/18 Isosorbide Mononitrate ER [Imdur] 30 mg PO DAILY #30 tab.er.24h 07/22/19 HYDROcodone/APAP 10-325MG [[place] 1 tab PO Q4HR PRN 3 Days #18 tab 02/26/20 10-325] Cephalexin [Keflex] 500 mg PO BID #10 cap 03/28/20 Allergies Allergy/AdvReac Type Severity Reaction Status Date / Time bumetanide [From Bumex] Allergy Hallucinati Verified 03/28/20 00:18 ons Penicillins Allergy Anaphylaxis Verified 03/28/20 00:18 spironolactone Allergy Hallucinati Verified 03/28/20 00:18 ons morphine AdvReac Confusion Verified 03/28/20 00:18 rivaroxaban [From Xarelto] AdvReac Bloody Nose Verified 03/28/20 00:18 All antibiotics except Keflex Allergy Unknown Uncoded 03/28/20 00:18 Childhood Review of Systems ROS Statement: Those systems with pertinent positive or pertinent negative responses have been documented in the HPI. ROS Other: All systems not noted in ROS Statement are negative. Past Medical History Past Medical History: Atrial Fibrillation, Coronary Artery Disease (CAD), Heart Failure, Diabetes Mellitus, Dialysis, Eye Disorder, GERD/Reflux, Hearing Disorder / Deafness, Hyperlipidemia, Hypertension, Myocardial Infarction ([place]), Renal Disease, Syncope Additional Past Medical History / Comment(s): IDDM type II, neuropathy bilateral hands/feet, ESRD with hemodialysis on M/W/F with last time being 10/14/18, chronic anemia, LVH, Afib with RVR, MIs, chronic CHF, R eye blindness, L eye legally blind, RLS, pt unsure if he has gout, vertigo at times, balance issues at times, stomach ulcer at age 17yrs, sinus problems, very [place] R ear. Last Myocardial Infarction Date:: 08/09/18 History of Any Multi-Drug Resistant Organisms: None Reported Past Surgical History: Heart Catheterization, Heart Catheterization With Stent Additional Past Surgical History / Comment(s): TTT, PD catheter placement/since removed, 2017 L arm fistula, fistula gram with balloon for stenosis, L eye vitrectomy, thyroid needle aspiration-negative, L leg cyst, colonoscopy with benign polypectomy. Past Anesthesia/Blood Transfusion Reactions: Postoperative Nausea & Vomiting (PONV) Date of Last Stent Placement:: 03-03-18 Past Psychological History: Anxiety, Depression Smoking Status: Former smoker Past Alcohol Use History: None Reported Past Drug Use History: None Reported - Past Family History Father Family Medical History: Cancer, Coronary Artery Disease (CAD), Hyperlipidemia Additional Family Medical History / Comment(s): Lung/BRAIN CANCER Mother Family Medical History: Diabetes Mellitus, Deep Vein Thrombosis (DVT), Osteoarthritis (OA) Additional Family Medical History / Comment(s): DJD Sister(s) Family Medical History: Diabetes Mellitus Additional Family Medical History / Comment(s): Patient has one sister with diabetes mellitus type 2, SLE, MS. Brother(s) Family Medical History: Diabetes Mellitus Additional Family Medical History / Comment(s): Patient has 4 kids no major medical problems. Daughter(s) Family Medical History: No Reported History Additional Family Medical History / Comment(s): Patient has 2 daughters no major medical problems. Son(s) Family Medical History: No Reported History Additional Family Medical History / Comment(s): Patient has 2 sons no major medical problems. General Exam Limitations: no limitations General appearance: alert, in no apparent distress, other (This is a well- developed, well-nourished adult male patient in no acute distress. Vital signs upon presentation are temperature 98.7F, pulse 72, respirations 20, blood pressure 200/87, pulse ox 98% on room air.) Respiratory exam: Present: normal lung sounds bilaterally. Absent: respiratory distress, wheezes, rales, rhonchi, stridor Cardiovascular Exam: Present: regular rate, normal rhythm, normal heart sounds. Absent: systolic murmur, diastolic murmur, rubs, gallop, clicks GI/Abdominal exam: Present: soft, normal bowel sounds. Absent: distended, tenderness, guarding, rebound, rigid Extremities exam: Present: full ROM, normal capillary refill, other (There is skin avulsion to the tip of the right great toe. Mild blood oozing. No surrounding erythema. Skin is otherwise pink and dry. Pedal pulse intact.). Absent: tenderness, pedal edema, joint swelling, calf tenderness Neurological exam: Present: alert, oriented X3, CN II-XII intact Psychiatric exam: Present: normal affect, normal mood Skin exam: Present: warm, dry, intact, normal color. Absent: rash Course Vital Signs 03/28/20 00:14 Temperature 98.7 F Pulse Rate 72 Respiratory 20 Rate Blood Pressure 200/87 O2 Sat by Pulse 98 Oximetry Medical Decision Making - Medical Decision Making 59-year-old male patient with history of type 2 diabetes presents to the emergency department today for evaluation of bleeding wound to the right second toe. Physical examination did reveal a skin avulsion to the toe. With mild ooz ing of blood. Did apply Gelfoam and pressure then applied dressing. Patient's blood sugar was elevated here at 352. Was given a dose of NovoLog. He'll be started on antibiotics for infection prevention given his diabetes and neuropathy. He is instructed to follow-up with his primary care physician for recheck in 1-2 days. Return parameters were discussed in detail. He verbalizes understanding and agrees with this plan. - Lab Data Lab Results 03/28/20 Range/Units 00:17 POC Glucose (mg/dL) 351 H (75-99) mg/dL POC Glu Sales Correspondent ID Samson Pickens Disposition Clinical Impression: Avulsion of skin of toe, Hyperglycemia Disposition: HOME SELF-CARE Condition: Good Instructions (If sedation given, give patient instructions): Skin Avulsion (ED), Diabetic Hyperglycemia (ED) Additional Instructions: Keep wound clean and dry. Follow-up with the primary care physician for recheck in 1-2 days. Return to the emergency department for any new, worsening, or concerning symptoms. Prescriptions: Cephalexin [Keflex] 500 mg PO BID #10 cap Is patient prescribed a controlled substance at d/c from ED?: No Referrals: Ten Mckeon DO [Primary Care Provider] - 1-2 days Time of Disposition: 00:56
== END 2020-03-28 01:16 | disposition home or self-care (01) ==
LOC: EC 00:09
DX: S91.204A Unspecified open wound of right lesser toe(s) with damage to nail, initial encounter (principal); E11.65 Type 2 diabetes mellitus with hyperglycemia; I48.91 Unspecified atrial fibrillation; I25.10 Atherosclerotic heart disease of native coronary artery without angina pectoris; E11.40 Type 2 diabetes mellitus with diabetic neuropathy, unspecified; E78.5 Hyperlipidemia, unspecified; D63.1 Anemia in chronic kidney disease; F41.9 Anxiety disorder, unspecified; E11.22 Type 2 diabetes mellitus with diabetic chronic kidney disease; I13.2 Hypertensive heart and chronic kidney disease with heart failure and with stage 5 chronic kidney disease, or end stage renal disease; I50.9 Heart failure, unspecified; N18.6 End stage renal disease; I25.2 Old myocardial infarction; K21.9 Gastro-esophageal reflux disease without esophagitis; F32.9 Major depressive disorder, single episode, unspecified; Z79.4 Long term (current) use of insulin; Z79.899 Other long term (current) drug therapy; Z79.01 Long term (current) use of anticoagulants; Z88.0 Allergy status to penicillin; Z88.5 Allergy status to narcotic agent; Z88.1 Allergy status to other antibiotic agents; Z88.8 Allergy status to other drugs, medicaments and biological substances; Z95.5 Presence of coronary angioplasty implant and graft; Z87.891 Personal history of nicotine dependence; Z99.2 Dependence on renal dialysis
CPT/HCPCS: 36415; 99283

== ENCOUNTER 2020-04-10 13:48 | Inpatient (IN) | payer MEDICARE, OTHER ==
[2020-04-10] MEDS ORDERED: HYDROmorphone 0.5 MG/0.5 ML SYRINGE IVP STA ×2 (14:10→16:32)
[2020-04-10] MEDS ORDERED: SODIUM CHLORIDE 0.9% 1,000 ML IV ONE (14:10)
[2020-04-10] MEDS ORDERED: ONDANSETRON 4 MG/2 ML VIAL IVP STA (14:10)
--- NOTE | 2020-04-10 14:18 | ED ---
Fall HPI <Augs Quiros - Last Filed: 04/10/20 18:11> - General Source: patient, EMS, RN notes reviewed Mode of arrival: EMS <Logan Nayak - Last Filed: 04/10/20 18:25> - General Chief Complaint: Fall Stated Complaint: Fall/neck injury Time Seen by Provider: 04/10/20 14:02 - History of Present Illness Initial Comments: Patient is a 59-year-old male that presents to emergency department via EMS complaining of a fall on the bathroom. She noted that he does have a history of falling. He stated that he was using the restroom sit up in his legs buckled and gave out on him resulting in falling. He noted that he hurt his neck. He recently stopped taking his blood thinners due to doctor's orders. He stated that the pain was an 8 out of 10 continuous without any relief. He denied any loss of consciousness. He denied any chest pain shortness of breath nausea vomiting diarrhea constipation fever fatigue chills. Patient does have history of diabetic neuropathy in bilateral lower extremities. Patient did state that he's missed 2 dialysis appointments this week. He goes Wednesday, he missed Wednesday and s. (Logan Nayak) - Related Data Home Medications Medication Instructions Recorded Confirmed Insulin Glargine,Hum.rec.anlog 33 unit SQ DAILY 03/24/18 04/10/20 [Basaglar Kwikpen U-100] Calcium Acetate [PhosLo] 1,334 mg PO AC-TID PRN 08/05/18 04/10/20 Insulin Aspart [NovoLOG Flexpen] See Protocol SQ ACHS 08/05/18 04/10/20 LORazepam [Ativan] 2 mg PO TID PRN 08/05/18 04/10/20 Amiodarone [Cordarone] 100 mg PO DAILY 04/13/19 04/10/20 Furosemide [Lasix] 80 mg PO DAILY 04/13/19 04/10/20 Metoprolol Tartrate [Lopressor] 25 mg PO DAILY 04/13/19 04/10/20 Triamcinolone 0.1% Ointment 1 applic TOPICAL BID PRN 04/13/19 04/10/20 [Kenalog] metOLazone [Zaroxolyn] 5 mg PO DAILY 04/13/19 04/10/20 Apixaban [Eliquis] 2.5 mg PO BID 02/06/20 04/10/20 Pioglitazone [Actos] 15 mg PO DAILY 02/06/20 04/10/20 hydrALAZINE HCL [Apresoline] 50 mg PO TID 02/06/20 04/10/20 hydrOXYzine pamoate [Vistaril] 100 mg PO TID PRN 02/06/20 04/10/20 traMADol HCL [Ultram] 50 mg PO TID PRN 02/06/20 04/10/20 Allopurinol [Zyloprim] 100 mg PO DAILY 02/17/20 04/10/20 Gabapentin 300 mg PO BID 02/17/20 04/10/20 Losartan [Cozaar] 50 mg PO HS 02/17/20 04/10/20 Metoprolol Tartrate [Lopressor] 12.5 mg PO HS 02/17/20 04/10/20 Nitroglycerin Sl Tabs [Nitrostat] 0.4 mg SL Q5M PRN 02/17/20 04/10/20 Pantoprazole [Protonix] 40 mg PO DAILY 02/17/20 04/10/20 Previous Rx's Medication Instructions Recorded Clopidogrel [Plavix] 75 mg PO DAILY #30 tab 03/05/18 Isosorbide Mononitrate ER [Imdur] 30 mg PO DAILY #30 tab.er.24h 07/22/19 HYDROcodone/APAP 10-325MG [[place] 1 tab PO Q4HR PRN 3 Days #18 tab 02/26/20 10-325] Allergies Allergy/AdvReac Type Severity Reaction Status Date / Time bumetanide [From Bumex] Allergy Hallucinati Verified 04/10/20 14:16 ons Penicillins Allergy Anaphylaxis Verified 04/10/20 14:16 spironolactone Allergy Hallucinati Verified 04/10/20 14:16 ons morphine AdvReac Confusion Verified 04/10/20 14:16 rivaroxaban [From Xarelto] AdvReac Bloody Nose Verified 04/10/20 14:16 All antibiotics except Keflex Allergy Unknown Uncoded 04/10/20 14:16 Childhood Review of Systems ROS Other: All systems not noted in ROS Statement are negative. <Agus Quiros - Last Filed: 04/10/20 18:11> ROS Other: All systems not noted in ROS Statement are negative. <Logan Nayak - Last Filed: 04/10/20 18:25> ROS Statement: Those systems with pertinent positive or pertinent negative responses have been documented in the HPI. Past Medical History Past Medical History: Atrial Fibrillation, Coronary Artery Disease (CAD), Heart Failure, Diabetes Mellitus, Dialysis, Eye Disorder, GERD/Reflux, Hearing Disorder / Deafness, Hyperlipidemia, Hypertension, Myocardial Infarction ([place]), Renal Disease, Syncope Additional Past Medical History / Comment(s): IDDM type II, neuropathy bilateral hands/feet, ESRD with hemodialysis on M/W/ with last time being 10/14/18, chronic anemia, LVH, Afib with RVR, MIs, chronic CHF, R eye blindness, L eye legally blind, RLS, pt unsure if he has gout, vertigo at times, balance issues at times, stomach ulcer at age 17yrs, sinus problems, very [place] R ear. Last Myocardial Infarction Date:: 08/09/18 History of Any Multi-Drug Resistant Organisms: None Reported Past Surgical History: Heart Catheterization, Heart Catheterization With Stent Additional Past Surgical History / Comment(s): TTT, PD catheter placement/since removed, 2016 L arm fistula, fistula gram with balloon for stenosis, L eye vitre ctomy, thyroid needle aspiration-negative, L leg cyst, colonoscopy with benign polypectomy. port placed in chest Right side. Past Anesthesia/Blood Transfusion Reactions: Postoperative Nausea & Vomiting (PONV) Date of Last Stent Placement:: 03-03-18 Past Psychological History: Anxiety, Depression Smoking Status: Former smoker Past Alcohol Use History: None Reported Past Drug Use History: None Reported - Past Family History Father Family Medical History: Cancer, Coronary Artery Disease (CAD), Hyperlipidemia Additional Family Medical History / Comment(s): Lung/BRAIN CANCER Mother Family Medical History: Diabetes Mellitus, Deep Vein Thrombosis (DVT), Osteoarthritis (OA) Additional Family Medical History / Comment(s): DJD Sister(s) Family Medical History: Diabetes Mellitus Additional Family Medical History / Comment(s): Patient has one sister with stoney betes mellitus type 2, SLE, MS. Brother(s) Family Medical History: Diabetes Mellitus Additional Family Medical History / Comment(s): Patient has 4 kids no major medical problems. Daughter(s) Family Medical History: No Reported History Additional Family Medical History / Comment(s): Patient has 2 daughters no major medical problems. Son(s) Family Medical History: No Reported History Additional Family Medical History / Comment(s): Patient has 2 sons no major medical problems. <Logan Nayak - Last Filed: 04/10/20 18:25> General Exam General appearance: alert, in no apparent distress Head exam: Present: atraumatic, normocephalic, normal inspection Eye exam: Present: normal appearance, PERRL, EOMI. Absent: scleral icterus, conjunctival injection, periorbital swelling ENT exam: Present: normal exam, mucous membranes moist Neck exam: Present: normal inspection, other (Patient was wearing c-collar). Absent: tenderness, meningismus, lymphadenopathy Respiratory exam: Present: normal lung sounds bilaterally. Absent: respiratory distress, wheezes, rales, rhonchi, stridor Cardiovascular Exam: Present: regular rate, normal rhythm, normal heart sounds. Absent: systolic murmur, diastolic murmur, rubs, gallop, clicks GI/Abdominal exam: Present: soft, normal bowel sounds. Absent: distended, tenderness, guarding, rebound, rigid Extremities exam: Present: normal inspection, full ROM, normal capillary refill. Absent: tenderness, pedal edema, joint swelling, calf tenderness Neurological exam: Present: alert, oriented X3, CN II-XII intact, other (Decreased sensation in bilateral feet) Psychiatric exam: Present: normal affect, normal mood Skin exam: Present: warm, dry, intact, normal color. Absent: rash <Logan Nayak - Last Filed: 04/10/20 18:25> Course <Agus Quiros - Last Filed: 04/10/20 18:11> Vital Signs 04/10/20 04/10/20 04/10/20 13:51 15:51 17:11 Temperature 99 F Pulse Rate 91 89 71 Respiratory 19 18 18 Rate Blood Pressure 202/94 195/95 169/86 O2 Sat by Pulse 95 93 L 98 Oximetry 04/10/20 18:17 Temperature Pulse Rate 76 Respiratory 18 Rate Blood Pressure 162/88 O2 Sat by Pulse 98 Oximetry - Reevaluation(s) Reevaluation #1: 04/10/20 18:11 Patient reevaluated by myself, Dr. Quiros. Patient resting comfortably in bed. Patient and spouse updated on results. She does not feel comfortable with discharge home secondary to patient having frequent falls and them being unable to take care of him. She feels patient may need rehab. Patient has missed last 2 dialysis appointments. Case was discussed with Dr. Cole, who will admit covering for Dr. Mckeon. (Agus Quiros) Medical Decision Making - Lab Data Result diagrams: 04/10/20 14:26 04/10/20 14:26 <Agus Quiros - Last Filed: 04/10/20 18:11> - Lab Data Result diagrams: 04/10/20 14:26 04/10/20 14:26 - Radiology Data Radiology results: report reviewed, image reviewed <Logan Nayak - Last Filed: 04/10/20 18:25> - Medical Decision Making 59-year-old male complaining of neck and head pain after fall. EKG, youth nutritional monitor, labs, CT of brain and C-spine ordered. Pain medication, antiemetic medication and 1 L of normal saline ordered. Patient refuses straight catheter urine sample. He was requesting more pain medication. Case discussed with Dr. Quiros, it was decided to admit patient to hospital. (Logan Nayak) - Lab Data Lab Results 04/10/20 04/10/20 04/10/20 Range/Units 14:26 14:26 14:26 WBC 20.2 H (3.8-10.6) k/uL RBC 3.78 L (4.30-5.90) m/uL Hgb 10.7 L (13.0-17.5) gm/dL Hct 32.4 L (39.0-53.0) % MCV 85.7 (80.0-100.0) fL MCH 28.2 (25.0-35.0) pg MCHC 32.9 (31.0-37.0) g/dL RDW 15.6 H (11.5-15.5) % Plt Count 219 (150-450) k/uL MPV 7.1 Neutrophils % 90 % Lymphocytes % 2 % Monocytes % 6 % Eosinophils % 0 % Basophils % 0 % Neutrophils # 18.1 H (1.3-7.7) k/uL Lymphocytes # 0.4 L (1.0-4.8) k/uL Monocytes # 1.2 H (0-1.0) k/uL Eosinophils # 0.1 (0-0.7) k/uL Basophils # 0.1 (0-0.2) k/uL PT 11.2 (9.0-12.0) sec INR 1.1 (<1.2) APTT 22.6 (22.0-30.0) sec Sodium 133 L (137-145) mmol/L Potassium 3.9 (3.5-5.1) mmol/L Chloride 92 L (98-107) mmol/L Carbon Dioxide 21 L (22-30) mmol/L Anion Gap 20 mmol/L BUN 86 H (9-20) mg/dL Creatinine 7.56 H* (0.66-1.25) mg/dL Est GFR (CKD-EPI)AfAm 8 (>60 ml/min/1.73 sqM) Est GFR (CKD-EPI)NonAf 7 (>60 ml/min/1.73 sqM) Glucose 237 H (74-99) mg/dL Calcium 9.2 (8.4-10.2) mg/dL Total Bilirubin 1.0 (0.2-1.3) mg/dL AST 20 (17-59) U/L ALT 27 (4-49) U/L Alkaline Phosphatase 151 H (38-126) U/L Total Protein 7.0 (6.3-8.2) g/dL Albumin 3.9 (3.5-5.0) g/dL Coronavirus (PCR) (Not Detectd) 04/10/20 Range/Units 16:29 WBC (3.8-10.6) k/uL RBC (4.30-5.90) m/uL Hgb (13.0-17.5) gm/dL Hct (39.0-53.0) % MCV (80.0-100.0) fL MCH (25.0-35.0) pg MCHC (31.0-37.0) g/dL RDW (11.5-15.5) % Plt Count (150-450) k/uL MPV Neutrophils % % Lymphocytes % % Monocytes % % Eosinophils % % Basophils % % Neutrophils # (1.3-7.7) k/uL Lymphocytes # (1.0-4.8) k/uL Monocytes # (0-1.0) k/uL Eosinophils # (0-0.7) k/uL Basophils # (0-0.2) k/uL PT (9.0-12.0) sec INR (<1.2) APTT (22.0-30.0) sec Sodium (137-145) mmol/L Potassium (3.5-5.1) mmol/L Chloride (98-107) mmol/L Carbon Dioxide (22-30) mmol/L Anion Gap mmol/L BUN (9-20) mg/dL Creatinine (0.66-1.25) mg/dL Est GFR (CKD-EPI)AfAm (>60 ml/min/1.73 sqM) Est GFR (CKD-EPI)NonAf (>60 ml/min/1.73 sqM) Glucose (74-99) mg/dL Calcium (8.4-10.2) mg/dL Total Bilirubin (0.2-1.3) mg/dL AST (17-59) U/L ALT (4-49) U/L Alkaline Phosphatase (38-126) U/L Total Protein (6.3-8.2) g/dL Albumin (3.5-5.0) g/dL Coronavirus (PCR) Not Detected (Not Detectd) - Radiology Data No evidence for acute fracture or subluxation of the cervical spine. No active cardiopulmonary disease heart appears increased slightly compared to old exam (Logan Nayak) Disposition <Agus Quiros - Last Filed: 04/10/20 18:11> Is patient prescribed a controlled substance at d/c from ED?: No Time of Disposition: 18:23 <Logan Nayak - Last Filed: 04/10/20 18:25> Clinical Impression: Fall, Debility, Weakness Disposition: ADMITTED IP TO THIS HOSP Referrals: Ten Mckeon DO [Primary Care Provider] - 1-2 days
[2020-04-10 14:40] LABS: Basophils # (A) 0.1 k/uL (0-0.2); Basophils % (A) 0 %; Eosinophils # (A) 0.1 k/uL (0-0.7); Eosinophils % (A) 0 %; HCT 32.4 % (39.0-53.0); HGB 10.7 gm/dL (13.0-17.5); Lymphocytes # (A) 0.4 k/uL (1.0-4.8); Lymphocytes % (A) 2 %; MCH 28.2 pg (25.0-35.0); MCHC 32.9 g/dL (31.0-37.0); MCV 85.7 fL (80.0-100.0); Mean Platelet Volume 7.1; Monocytes # (A) 1.2 k/uL (0-1.0); Monocytes % (A) 6 %; Neutrophils # (A) 18.1 k/uL (1.3-7.7); Neutrophils % (A) 90 %; Platelet Count 219 k/uL (150-450); RBC 3.78 m/uL (4.30-5.90); RDW 15.6 % (11.5-15.5); WBC 20.2 k/uL (3.8-10.6)
[2020-04-10 14:48] LABS: Albumin 3.9 g/dL (3.5-5.0)
[2020-04-10 14:49] LABS: Calcium 9.2 mg/dL (8.4-10.2); INR 1.1 (<1.2); Partial Thromboplastin Time 22.6 sec (22.0-30.0); Potassium 3.9 mmol/L (3.5-5.1); Prothrombin Time 11.2 sec (9.0-12.0)
--- NOTE | 2020-04-10 15:35 | CT ---
EXAMINATION TYPE: CT brain maximo wo con DATE OF EXAM: 04/10/2020 COMPARISON: 02/26/2020 HISTORY: Fall today. CT DLP: 1622.[address] of the brain was performed. The ventricles, basal cisterns and sulci overlying the cerebral convexities demonstrate mild enlargem ent. There is no evidence for intracranial hemorrhage or sulcal effacement. There is decreased attenuatio n about the periventricular white matter and deep white matter of both cerebral hemispheres, compatib le with chronic small vessel ischemia. No mass effects are seen. If symptoms persist consider MRI. Osseous calvarium is intact. IMPRESSION: 1. Age related atrophic and chronic small vessel ischemic change without acute intracranial process seen at this time. CT Cervical Spine: Unenhanced CT of the cervical spine was performed with bone and soft tissue window settings submitted . Coronal and sagittal reconstruction is obtained. There is normal alignment and prevertebral soft tissues. No evidence for acute cervical fracture . Scattered degenerative disc disease and spondylosis. Biapical scarring. IMPRESSION: 1. No evidence for acute fracture or subluxation of the cervical spine.
[2020-04-10] MEDS: LABETALOL 5 MG/ML VIAL MDV IVP STA ×2 (16:38→16:39)
--- NOTE | 2020-04-10 17:08 | XR ---
EXAMINATION TYPE: XR chest 2V DATE OF EXAM: 04/10/2020 COMPARISON: 02/17/2020 HISTORY: Chest pain TECHNIQUE: 2 views FINDINGS: Heart appears slightly enlarged. There is no heart failure. There are no hilar masses. Ther e is right jugular catheter with tip in the superior vena cava. There is no pleural effusion. IMPRESSION: No active cardiopulmonary disease. Heart appears increased slightly compared to old exam.
[2020-04-10] MEDS ORDERED: ONDANSETRON 4 MG/2 ML VIAL IVP PRN (18:19)
[2020-04-10] MEDS: SODIUM CHLORIDE 0.9% 1,000 ML IV SCH (19:39)
[2020-04-10] MEDS: traMADol 50 MG TAB PO SCH (21:48)
[2020-04-10] MEDS: HYDROmorphone 0.5 MG/0.5 ML SYRINGE IVP PRN (23:54)
[2020-04-11] MEDS ORDERED: NITROGLYCERIN SL TABS 0.4 MG TAB SUBLINGUAL PRN (00:20)
[2020-04-11] MEDS ORDERED: CALCIUM ACETATE 667 MG TAB PO PRN (00:20)
[2020-04-11] MEDS ORDERED: LORazepam 1 MG TAB PO PRN ×2 (00:30→14:34)
[2020-04-11] MEDS: LOSARTAN 50 MG TAB PO SCH ×2 (00:57→20:57)
[2020-04-11] MEDS: hydrALAZINE HCL 50 MG TAB PO SCH ×4 (00:57→21:51)
[2020-04-11] MEDS: METOPROLOL TARTRATE 12.5 MG TAB PO SCH ×2 (00:57→20:57)
[2020-04-11] MEDS ORDERED: TRIAMCINOLONE ACET 0.1% OINTMENT 80 GM TUBE TOPICAL PRN (01:00)
[2020-04-11] MEDS: HYDROmorphone 0.5 MG/0.5 ML SYRINGE IVP PRN (06:38)
[2020-04-11 06:53] LABS: Glucose,Whole Blood 210 mg/dL (75-99)
[2020-04-11 07:44] LABS: Amorphous Sediment,Urine Moderate /hpf; Appearance,Urine Cloudy (Clear); Bacteria,Urine Rare /hpf; Bilirubin,Urine Negative (Negative); Blood,Urine Moderate (Negative); Color,Urine Yellow; Glucose,Urine (UA) 3+ (Negative); Ketones,Urine Trace (Negative); Leukocyte Esterase,Urine Small (Negative); Mucus,Urine Few /hpf; Nitrite,Urine Negative (Negative); PH, Urine 6.5 (5.0-8.0); Protein,Urine 3+ (Negative); RBC,Urine 35 /hpf (0-5); Specific Gravity,Urine 1.015 (1.001-1.035); Squamous Epithelial Cell,Urine 3 /hpf (0-4); Urobilinogen,Urine <2.0 mg/dL (<2.0); WBC,Urine 53 /hpf (0-5)
[2020-04-11] MEDS: traMADol 50 MG TAB PO SCH (08:03)
[2020-04-11] MEDS: METOPROLOL TARTRATE 25 MG TAB PO SCH (08:03)
[2020-04-11] MEDS: allopurinoL 100 MG TAB PO SCH (08:05)
[2020-04-11] MEDS: PANTOPRAZOLE 40 MG TABLET PO SCH (08:06)
[2020-04-11] MEDS: ISOSORBIDE MONONITRATE ER 30 MG TAB.ER.24H PO SCH (08:06)
[2020-04-11] MEDS: AMIODARONE 100 MG TAB PO SCH (08:06)
[2020-04-11] MEDS: INSULIN ASPART (NovoLOG) 100 UNIT/ML VIAL SQ SCH ×4 (08:17→21:51)
[2020-04-11] MEDS: INSULIN DETEMIR (LEVEMIR) 100 UNIT/ML SYR SQ SCH (08:18)
[2020-04-11] MEDS ORDERED: GABAPENTIN 300 MG CAP PO SCH (09:00)
[2020-04-11] MEDS ORDERED: PIOGLITAZONE 15 MG TAB PO SCH (09:00)
[2020-04-11] MEDS: SODIUM CHLORIDE 0.9% 1,000 ML IV SCH (10:23)
[2020-04-11 10:38] LABS: African American GFR (CKD) 8.8 (60.0-200.0); Albumin 3.8 g/dL (3.80-4.90); Albumin/Globulin Ratio 1.81 (1.60-3.17); Anion Gap 23.5 mmol/L (4.00-12.00); BUN/Creat Ratio 13.8 Ratio (12.00-20.00); Calcium 8.8 mg/dL (8.7-10.3); Carbon Dioxide 17.5 mmol/L (21.6-31.8); Globulin 2.1 g/dL (1.6-3.3); Non-African American GFR(CKD) 7.6 (60.0-200.0); Potassium 3.9 mmol/L (3.5-5.5); Total Bilirubin 0.4 mg/dL (0.2-1.2); Total Protein 5.9 g/dL (6.2-8.2)
--- NOTE | 2020-04-11 10:46 | P.NPCON ---
History of Present Illness - Reason for Consult end stage renal disease - History of Present Illness Reason for consultation: End-stage renal disease History of present illness: I sent patient is a 59-year-old male seen in consultation for end-stage renal disease. He is maintained on hemodialysis on Wednesday schedule. Patient missed Wednesday's treatment he did not feeling well and also didn't get dialysis yesterday as he came to the hospital. His potassium was 3.9 on admission. Patient presented to the hospital after he sustained a fall in the bathroom. Patient states that his legs gave out. He denies dizziness or syncopal episodes. Brain CT revealed no acute changes. No evidence of cervical spine fracture was noted. No evidence of fluid overload was noted on chest x-ray. No chest pain or shortness of breath. Blood pressure is stable. He has history of A. fib. Heart rate is controlled. He has long- standing history of diabetes mellitus. No fever or chills. No cough. Oral intake fair. No vomiting or diarrhea. Hemoglobin 10.7 on admission. Vital signs are stable. General: The patient appeared well nourished and normally developed. HEENT: Head exam is unremarkable. Neck is without jugular venous distension. LUNGS: Breath sounds decreased. HEART: Rate and Rhythm are regular. ABDOMEN: Soft, nontender. EXTREMITITES: Trace edema. Past Medical History Past Medical History: Atrial Fibrillation, Coronary Artery Disease (CAD), Heart Failure, Diabetes Mellitus, Dialysis, Eye Disorder, GERD/Reflux, Hearing Disorder / Deafness, Hyperlipidemia, Hypertension, Myocardial Infarction ([place]), Renal Disease, Syncope Additional Past Medical History / Comment(s): IDDM type II, neuropathy bilateral hands/feet, ESRD with hemodialysis on //, He skipped this wednesday and wednesday the 04/08 and 04/10 due to illness, chronic anemia, LVH, Afib with RVR, MIs, chronic CHF, R eye blindness, L eye legally blind, RLS, pt unsure if he has gout, vertigo at times, balance issues at times, stomach ulcer at age 17yrs, sinus problems, very [place] R ear. Last Myocardial Infarction Date:: 08/09/18 History of Any Multi-Drug Resistant Organisms: None Reported Past Surgical History: Heart Catheterization, Heart Catheterization With Stent Additional Past Surgical History / Comment(s): TTT, PD catheter placement/since removed, 2016 L arm fistula, fistula gram with balloon for stenosis, L eye vitrectomy, thyroid needle aspiration-negative, L leg cyst, colonoscopy with benign polypectomy. port placed in chest Right side. Past Anesthesia/Blood Transfusion Reactions: Postoperative Nausea & Vomiting (PONV) Date of Last Stent Placement:: 03-03-18 Past Psychological History: Anxiety, Depression Additional Psychological History / Comment(s): Pt resides with his spouse, AND SON. He is legally blind L eye and blind in R eye. He is very [place] in R ear. He has a cane and walker which he uses prn. His spouse and son drive. Pt uses glasses and a magnifier to read. He has depression which he states is constantly present but not increased. He denies thoughts/plans of suicide. Smoking Status: Former smoker Past Alcohol Use History: None Reported Additional Past Alcohol Use History / Comment(s): Pt started smoking in 1972 and quit in 1995. Past Drug Use History: None Reported - Past Family History Father Family Medical History: Cancer, Coronary Artery Disease (CAD), Hyperlipidemia Additional Family Medical History / Comment(s): Lung/BRAIN CANCER Mother Family Medical History: Diabetes Mellitus, Deep Vein Thrombosis (DVT), Osteoarthritis (OA) Additional Family Medical History / Comment(s): DJD Sister(s) Family Medical History: Diabetes Mellitus Additional Family Medical History / Comment(s): Patient has one sister with diabetes mellitus type 2, SLE, MS. Brother(s) Family Medical History: Diabetes Mellitus Additional Family Medical History / Comment(s): Patient has 4 kids no major medical problems. Daughter(s) Family Medical History: No Reported History Additional Family Medical History / Comment(s): Patient has 2 daughters no major medical problems. Son(s) Family Medical History: No Reported History Additional Family Medical History / Comment(s): Patient has 2 sons no major medical problems. Medications and Allergies Home Medications Medication Instructions Recorded Confirmed Type Clopidogrel [Plavix] 75 mg PO DAILY #30 tab 03/05/18 04/10/20 Rx Insulin Glargine,Hum.rec.anlog 33 unit SQ DAILY 03/24/18 04/10/20 History [Basaglar Kwikpen U-100] Calcium Acetate [PhosLo] 1,334 mg PO AC-TID PRN 08/05/18 04/10/20 History Insulin Aspart [NovoLOG Flexpen] See Protocol SQ ACHS 08/05/18 04/10/20 History LORazepam [Ativan] 2 mg PO TID PRN 08/05/18 04/10/20 History Amiodarone [Cordarone] 100 mg PO DAILY 04/13/19 04/10/20 History Furosemide [Lasix] 80 mg PO DAILY 04/13/19 04/10/20 History Metoprolol Tartrate [Lopressor] 25 mg PO DAILY 04/13/19 04/10/20 History Triamcinolone 0.1% Ointment 1 applic TOPICAL BID PRN 04/13/19 04/10/20 History [Kenalog] metOLazone [Zaroxolyn] 5 mg PO DAILY 04/13/19 04/10/20 History Isosorbide Mononitrate ER [Imdur] 30 mg PO DAILY #30 tab.er.24h 07/22/19 04/10/20 Rx Apixaban [Eliquis] 2.5 mg PO BID 02/06/20 04/10/20 History Pioglitazone [Actos] 15 mg PO DAILY 02/06/20 04/10/20 History hydrALAZINE HCL [Apresoline] 50 mg PO TID 02/06/20 04/10/20 History hydrOXYzine pamoate [Vistaril] 100 mg PO TID PRN 02/06/20 04/10/20 History traMADol HCL [Ultram] 50 mg PO TID PRN 02/06/20 04/10/20 History Allopurinol [Zyloprim] 100 mg PO DAILY 02/17/20 04/10/20 History Gabapentin 300 mg PO BID 02/17/20 04/10/20 History Losartan [Cozaar] 50 mg PO HS 02/17/20 04/10/20 History Metoprolol Tartrate [Lopressor] 12.5 mg PO HS 02/17/20 04/10/20 History Nitroglycerin Sl Tabs [Nitrostat] 0.4 mg SL Q5M PRN 02/17/20 04/10/20 History Pantoprazole [Protonix] 40 mg PO DAILY 02/17/20 04/10/20 History HYDROcodone/APAP 10-325MG [[place] 1 tab PO Q4HR PRN 3 Days #18 tab 02/26/20 04/10/20 Rx 10-325] Allergies Allergy/AdvReac Type Severity Reaction Status Date / Time bumetanide [From Bumex] Allergy Hallucinati Verified 04/10/20 14:16 ons Penicillins Allergy Anaphylaxis Verified 04/10/20 14:16 spironolactone Allergy Hallucinati Verified 04/10/20 14:16 ons morphine AdvReac Confusion Verified 04/10/20 14:16 rivaroxaban [From Xarelto] AdvReac Bloody Nose Verified 04/10/20 14:16 All antibiotics except Keflex Allergy Unknown Uncoded 04/10/20 14:16 Childhood Physical Exam Vitals: Vital Signs Temp Pulse Pulse Resp BP BP Pulse Ox 04/11/20 07:17 98.6 F 75 17 114/62 96 04/11/20 05:10 98.4 F 79 17 134/65 94 L 04/10/20 23:40 14 04/10/20 22:34 98.5 F 85 14 196/85 93 L 04/10/20 20:50 98.9 F 82 18 172/90 97 04/10/20 18:17 76 18 162/88 98 04/10/20 17:11 71 18 169/86 98 04/10/20 15:51 89 18 195/95 93 L 04/10/20 13:51 99 F 91 19 202/94 95 Intake and Output 04/10/20 04/11/20 04/11/20 22:59 06:59 14:59 Output Total 600 Balance -600 Output: Urine 600 Other: Voiding Method Urinal Weight 95.254 kg Results - Lab Results Most recent lab results Calcium 9.2 mg/dL (8.4-10.2) 04/10/20 14:26 04/10/20 14:26 04/10/20 14:26 Assessment and Plan Plan: Assessment: 1. End-stage renal disease maintained on hemodialysis on Wednesday schedule. Last hemodialysis was on Wednesday. Has a right chest permacath. 2. Status post fall. No fractures noted. 3. A. fib. 4. Diabetes mellitus. 5. Chronic kidney disease mineral bone disease maintained on PhosLo. 6. Metabolic acidosis secondary to chronic kidney disease. Expect improvement post dialysis. 7. Hypertension with chronic kidney disease. Plan: Hemodialysis today and again tomorrow. Decrease gabapentin dose to 100 mg 3 times daily. Hold hydralazine for systolic blood pressure less than 125. Hep-Lock IV fluids. Check phosphorus level. Thank you for the consultation. I will continue to follow the patient with you during his hospital stay.
[2020-04-11] MEDS ORDERED: LEVOFLOXACIN 500MG-D5W PMX 500 MG in DEXTROSE/WATER 1 100ML.BAG IVPB ONE (11:30)
[2020-04-11 11:31] LABS: Glucose,Whole Blood 170 mg/dL (75-99)
[2020-04-11 11:54] LABS: Basophils # (A) 0.1 k/uL (0-0.2); Basophils % (A) 0 %; Eosinophils % (A) 0 %; HCT 30.1 % (39.0-53.0); HGB 9.3 gm/dL (13.0-17.5); Hypochromasia Slight; Lymphocytes # (A) 0.4 k/uL (1.0-4.8); Lymphocytes % (A) 2 %; MCV 87.1 fL (80.0-100.0); Mean Platelet Volume 7.6; Monocytes # (A) 1.3 k/uL (0-1.0); Monocytes % (A) 6 %; Neutrophils # (A) 18.7 k/uL (1.3-7.7); Neutrophils % (A) 90 %; Platelet Count 240 k/uL (150-450); RBC 3.45 m/uL (4.30-5.90); RDW 15.8 % (11.5-15.5); WBC 20.9 k/uL (3.8-10.6)
[2020-04-11 14:15] LABS: WBC 20.2 k/uL (3.8-10.6)
[2020-04-11 14:15] LABS: Glucose,Whole Blood 184 mg/dL (75-99)
[2020-04-11 14:16] LABS: Basophils # (A) 0.1 k/uL (0-0.2); Basophils % (A) 0 %; Eosinophils % (A) 0 %; HCT 30.2 % (39.0-53.0); HGB 9.9 gm/dL (13.0-17.5); Lymphocytes # (A) 0.8 k/uL (1.0-4.8); Lymphocytes % (A) 4 %; MCV 84.8 fL (80.0-100.0); Mean Platelet Volume 7.4; Monocytes % (A) 5 %; Neutrophils # (A) 17.9 k/uL (1.3-7.7); Neutrophils % (A) 89 %; Platelet Count 209 k/uL (150-450); RBC 3.55 m/uL (4.30-5.90); RDW 15.5 % (11.5-15.5)
[2020-04-11 14:26] LABS: African American GFR (CKD) 8 (>60 ml/min/1.73 sqM); Albumin 3.1 g/dL (3.5-5.0); Albumin/Globulin Ratio 1.1; Alkaline Phosphatase 341 U/L (38-126); Anion Gap 19 mmol/L; Blood Urea Nitrogen 92 mg/dL (9-20); Calcium 8.8 mg/dL (8.4-10.2); Carbon Dioxide 17 mmol/L (22-30); Chloride 97 mmol/L (98-107); Globulin 2.9 g/dL; Glucose 163 mg/dL (74-99); Magnesium 2.3 mg/dL (1.6-2.3); Non-African American GFR(CKD) 7 (>60 ml/min/1.73 sqM); Potassium 4.2 mmol/L (3.5-5.1); Sodium 133 mmol/L (137-145); Total Bilirubin 2.3 mg/dL (0.2-1.3)
[2020-04-11 14:32] LABS: Glucose,Whole Blood 154 mg/dL (75-99)
[2020-04-11 14:46] LABS: Hemoglobin A1C 10.1 % (4.0-6.0)
--- NOTE | 2020-04-11 14:50 | P.EN ---
Code Blue Note Arrived to the room to find patient unresponsive, staff at bedside, no palpable pulse. I asked for CPR to be started. Crash cart jorge a into the room after approximately 2 minutes of CPR patient groans. On the monitor he was found to be normal sinus rhythm at a rate of 82. Blood pressure was 90/50. His pulse ox was 82%. He did open his eye and say HI. EKG revealed no signs of acute ischemia. CBC, CMP, mg,phos, troponin drawn. He then went into A fib at 119. BP 160/90. He was transferred to ICU. Report given to Dr. High and Dr. Peck. Dr. Alejo notified by Heidi MEDRANO, RN Vital signs reviewed General: non toxic, no distress, appears at stated age Derm: cool, diaphoretic Head: atraumatic, normocephalic, symmetric Eyes: EOMI, no lid lag, anicteric sclera, pupils pin point Mouth: no lip lesion, mucus membranes dry Cardiovascular: S1S2 rirred, positive posterior tibial pulse bilateral, Lungs: crackels bilateral, no rhonchi, no rales , no accessory muscle use Ext: no gross muscle atrophy, no edema, no contractures Neuro: CN II-XI grossly intact, no focal neuro deficits Psych: [lethargic but awake to voice Assessment/Plan: Cardaic arrest, breif less than 2 minutes - await labs - CXR reviewed at bedside - report given to Dr. High and Dr. Meade - EKG No signs of ischemia - Patient awakes to voice when I left the ICU.
--- NOTE | 2020-04-11 14:55 | P.HPIM ---
History of Present Illness H&P Date: 04/11/20 59 years old male patient of Dr. Mckeon with past medical history of end-stage renal disease on hemodialysis Wednesday and Wednesday, coronary artery disease post angioplasty, and stent placement last catheterization was February 09 with stent of the left circumflex and proximal LAD, atrial fibrillation, diabetes, GERD, hyperlipidemia, hypertension. He does have intermittent lesion along the mid LAD and follows Dr. Hinojosa on as outpatient. Patient was last admitted in February 16 with chest pain and unstable angina, comes in this time with change in mental status, and multiple falls at home. Patient is unable to provide any history due to increased drowsiness. History obtained from the chart. It appears patient had a fall in the bathroom as his leg gave out. He denies any dizziness or syncope episode. CT of the head was obtained that showed no acute lesions. Patient missed 2 dialysis appointment, last hemodialysis was 1 week ago. In the ER patient's blood pressure was 202/94 temp of 99 pulse 91 and respiratory rate 19 on assessment of patient's lab patient had a any, hemoglobin 10.7 hematocrit 32.4 sodium 133 chloride 92 bicarb 21 BUN 86 creatinine 7.56 glucose 237. Urinalysis does suggest leukocytosis with positive blood and positive protein. Urine culture was sent. On evaluation today patient is found to be lying in bed. He is unable to provide a [place] history. Patient did Gabapentin, Dilaudid and 1 L of bolus of IV fluids. We will hold pain medication. Decrease gabapentin 100 3 times a day. Patient will be started on levofloxacin renally adjusted to 250 every 48 hours. Ativan reduced to 0.5 mg 3 times a day. Hold off diuretics. Nephrology consulted At 2:30 this afternoon patient became unresponsive number as patient was hooked to the dialysis. A brief CPR was done with no need of epinephrine. Patient's blood pressure was found to be low. Cardiology consult will be placed. Echo will be ordered. Review of Systems Constitutional: Denies chills, Denies fever, endorses lethargy and weakness Eyes: denies decreased vision, denies diplopia, denies discharge, denies pain Ears: deny: decreased hearing Ears, nose, mouth and throat: Denies dental pain, Denies headache, Denies nasal discharge, Denies nose pain Cardiovascular: Denies chest pain, Denies decreased exercise tolerance, Denies edema, Denies high blood pressure, Denies irregular heart beat, Denies palpitations, Denies paroxysmal nocturnal dyspnea, Denies rapid heart beat, Denies shortness of breath Respiratory: Denies congestion, Denies cough, Denies cough with sputum, Denies dyspnea, Denies home oxygen, Denies wheezing Gastrointestinal: Denies abdominal pain, Denies change in bowel habits, Denies coffee ground emesis, Denies early satiety, Denies excessive gas, Denies heartburn, Denies hematemesis, Denies hematochezia, Denies loss of appetite, Denies nausea, Denies vomiting Genitourinary: Denies dysuria, Denies flank pain, Denies kidney stones, Denies menorrhagia, Denies urgency, Denies urinary frequency Musculoskeletal: Endorses gait instability and multiple falls Integumentary: Denies rash, Denies wounds, Denies brittle nails, Denies change in hair/nails, Denies darkening of skin Neurological: Endorses balance difficulties, Denies change in speech, Denies double vision, Denies gait dysfunction, Denies loss of vision, Denies motor disturbance, Denies numbness, Denies paralysis, Denies paresthesias, Denies seizures Psychiatric: Denies anxiety, Denies depression Endocrine: Denies excessive sweating, Denies excessive thirst, Denies high blood sugars, Denies palpitations Hematologic/Lymphatic: Denies easy bruising, Denies lymphadenopathy Past Medical History Past Medical History: Atrial Fibrillation, Coronary Artery Disease (CAD), Heart Failure, Diabetes Mellitus, Dialysis, Eye Disorder, GERD/Reflux, Hearing Disorder / Deafness, Hyperlipidemia, Hypertension, Myocardial Infarction (MO), Renal Disease, Syncope Additional Past Medical History / Comment(s): IDDM type II, neuropathy bilateral hands/feet, ESRD with hemodialysis on /, He skipped this wednesday and wednesday the 04/08 and 04/10 due to illness, chronic anemia, LVH, Afib with RVR, MIs, chronic CHF, R eye blindness, L eye legally blind, RLS, pt unsure if he has gout, vertigo at times, balance issues at times, stomach ulcer at age 17yrs, sinus problems, very [place]. Last Myocardial Infarction Date:: 08/09/18 History of Any Multi-Drug Resistant Organisms: None Reported Past Surgical History: Heart Catheterization, Heart Catheterization With Stent Additional Past Surgical History / Comment(s): TTT, PD catheter placement/since removed, 2017 L arm fistula, fistula gram with balloon for stenosis, L eye vitrectomy, thyroid needle aspiration-negative, L leg cyst, colonoscopy with b enign polypectomy. port placed in chest Right side. Past Anesthesia/Blood Transfusion Reactions: Postoperative Nausea & Vomiting (PONV) Date of Last Stent Placement:: 03-03-18 Past Psychological History: Anxiety, Depression Additional Psychological History / Comment(s): Pt resides with his spouse, AND SON. He is legally blind L eye and blind in R eye. He is very [place] in R ear. He has a cane and walker which he uses prn. His spouse and son drive. Pt uses glasses and a magnifier to read. He has depression which he states is constantly present but not increased. He denies thoughts/plans of suicide. Smoking Status: Former smoker Past Alcohol Use History: None Reported Additional Past Alcohol Use History / Comment(s): Pt started smoking in 1972 and quit in 1995. Past Drug Use History: None Reported - Past Family History Father Family Medical History: Cancer, Coronary Artery Disease (CAD), Hyperlipidemia Additional Family Medical History / Comment(s): Lung/BRAIN CANCER Mother Family Medical History: Diabetes Mellitus, Deep Vein Thrombosis (DVT), Osteoarthritis (OA) Additional Family Medical History / Comment(s): DJD Sister(s) Family Medical History: Diabetes Mellitus Additional Family Medical History / Comment(s): Patient has one sister with diabetes mellitus type 2, SLE, MS. Brother(s) Family Medical History: Diabetes Mellitus Additional Family Medical History / Comment(s): Patient has 4 kids no major medical problems. Daughter(s) Family Medical History: No Reported History Additional Family Medical History / Comment(s): Patient has 2 daughters no major medical problems. Son(s) Family Medical History: No Reported History Additional Family Medical History / Comment(s): Patient has 2 sons no major medical problems. Medications and Allergies Home Medications Medication Instructions Recorded Confirmed Type Clopidogrel [Plavix] 75 mg PO DAILY #30 tab 03/05/18 04/10/20 Rx Insulin Glargine,Hum.rec.anlog 33 unit SQ DAILY 03/24/18 04/10/20 History [[place] U-100] Calcium Acetate [PhosLo] 1,334 mg PO AC-TID PRN 08/05/18 04/10/20 History Insulin Aspart [NovoLOG Flexpen] See Protocol SQ ACHS 08/05/18 04/10/20 History LORazepam [Ativan] 2 mg PO TID PRN 08/05/18 04/10/20 History Amiodarone [Cordarone] 100 mg PO DAILY 04/13/19 04/10/20 History Furosemide [Lasix] 80 mg PO DAILY 04/13/19 04/10/20 History Metoprolol Tartrate [Lopressor] 25 mg PO DAILY 04/13/19 04/10/20 History Triamcinolone 0.1% Ointment 1 applic TOPICAL BID PRN 04/13/19 04/10/20 History [Kenalog] metOLazone [Zaroxolyn] 5 mg PO DAILY 04/13/19 04/10/20 History Isosorbide Mononitrate ER [Imdur] 30 mg PO DAILY #30 tab.er.24h 07/22/19 04/10/20 Rx Apixaban [Eliquis] 2.5 mg PO BID 02/06/20 04/10/20 History Pioglitazone [Actos] 15 mg PO DAILY 02/06/20 04/10/20 History hydrALAZINE HCL [Apresoline] 50 mg PO TID 02/06/20 04/10/20 History hydrOXYzine pamoate [Vistaril] 100 mg PO TID PRN 02/06/20 04/10/20 History traMADol HCL [Ultram] 50 mg PO TID PRN 02/06/20 04/10/20 History Allopurinol [Zyloprim] 100 mg PO DAILY 02/17/20 04/10/20 History Gabapentin 300 mg PO BID 02/17/20 04/10/20 History Losartan [Cozaar] 50 mg PO HS 02/17/20 04/10/20 History Metoprolol Tartrate [Lopressor] 12.5 mg PO HS 02/17/20 04/10/20 History Nitroglycerin Sl Tabs [Nitrostat] 0.4 mg SL Q5M PRN 02/17/20 04/10/20 History Pantoprazole [Protonix] 40 mg PO DAILY 02/17/20 04/10/20 History HYDROcodone/APAP 10-325MG [[place] 1 tab PO Q4HR PRN 3 Days #18 tab 02/26/20 04/10/20 Rx 10-325] Allergies Allergy/AdvReac Type Severity Reaction Status Date / Time bumetanide [From Bumex] Allergy Hallucinati Verified 04/10/20 14:16 ons Penicillins Allergy Anaphylaxis Verified 04/10/20 14:16 spironolactone Allergy Hallucinati Verified 04/10/20 14:16 ons morphine AdvReac Confusion Verified 04/10/20 14:16 rivaroxaban [From Xarelto] AdvReac Bloody Nose Verified 04/10/20 14:16 All antibiotics except Keflex Allergy Unknown Uncoded 04/10/20 14:16 Childhood Physical Exam Vitals: Vital Signs Temp Pulse Pulse Resp BP BP Pulse Ox 04/11/20 07:17 98.6 F 75 17 114/62 96 04/11/20 05:10 98.4 F 79 17 134/65 94 L 04/10/20 23:40 14 04/10/20 22:34 98.5 F 85 14 196/85 93 L 04/10/20 20:50 98.9 F 82 18 172/90 97 04/10/20 18:17 76 18 162/88 98 04/10/20 17:11 71 18 169/86 98 04/10/20 15:51 89 18 195/95 93 L 04/10/20 13:51 99 F 91 19 202/94 95 Intake and Output 04/10/20 04/11/20 04/11/20 22:59 06:59 14:59 Output Total 600 Balance -600 Output: Urine 600 Other: Voiding Method Urinal Weight 95.254 kg - Constitutional General appearance: Very drowsy uncooperative - EENT Eyes: anicteric sclerae, PERRLA, normal appearance ENT: hearing grossly normal - Neck Neck: no lymphadenopathy, normal ROM, no other, no rigidity, no stridor, no thyromegaly - Respiratory Respiratory: bilateral: CTA, negative: diminished, dullness, rales, rhonchi - Cardiovascular Rhythm: regular Heart sounds: normal: S1, S2 Abnormal Heart Sounds: 2 x 6 systolic murmur, no diastolic murmur, no rub, no S3 Gallop, no S4 Gallop, no click, no other - Gastrointestinal General gastrointestinal: normal bowel sounds, soft nontender - Integumentary Integumentary: no rash - Neurologic Neurologic: Generalized decreased strength in all extremities - Musculoskeletal Musculoskeletal: gait normal, strength decreased b/l extremities - Psychiatric Psychiatric: drowsy, decreased mentation Results CBC & Chem 7: 04/11/20 11:16 04/11/20 05:42 Labs: Abnormal Lab Results - Last 24 Hours (Table) 04/10/20 04/10/20 04/11/20 Range/Units 14:26 14:26 05:42 WBC 20.2 H (3.8-10.6) k/uL RBC 3.78 L (4.30-5.90) m/uL Hgb 10.7 L (13.0-17.5) gm/dL Hct 32.4 L (39.0-53.0) % RDW 15.6 H (11.5-15.5) % Neutrophils # 18.1 H (1.3-7.7) k/uL Lymphocytes # 0.4 L (1.0-4.8) k/uL Monocytes # 1.2 H (0-1.0) k/uL Sodium 133 L (137-145) mmol/L Chloride 92 L 94 L (98-107) mmol/L Carbon Dioxide 21 L 17.5 L (22-30) mmol/L Anion Gap 23.50 H (4.00-12.00) mmol/L BUN 86 H 98.0 H (9-20) mg/dL Creatinine 7.56 H* 7.1 H* (0.66-1.25) mg/dL Est GFR (CKD-EPI)AfAm 8.8 L (60.0-200.0) Est GFR (CKD-EPI)NonAf 7.6 L (60.0-200.0) Glucose 237 H 174 H (74-99) mg/dL POC Glucose (mg/dL) (75-99) mg/dL Alkaline Phosphatase 151 H 145 H (38-126) U/L Total Protein 5.9 L (6.2-8.2) g/dL Urine Protein (Negative) Urine Glucose (UA) (Negative) Urine Ketones (Negative) Urine Blood (Negative) Ur Leukocyte Esterase (Negative) Urine RBC (0-5) /hpf Urine WBC (0-5) /hpf Urine WBC Clumps (None) /hpf Amorphous Sediment (None) /hpf Urine Bacteria (None) /hpf Urine Mucus (None) /hpf 04/11/20 04/11/20 Range/Units 06:51 07:22 WBC (3.8-10.6) k/uL RBC (4.30-5.90) m/uL Hgb (13.0-17.5) gm/dL Hct (39.0-53.0) % RDW (11.5-15.5) % Neutrophils # (1.3-7.7) k/uL Lymphocytes # (1.0-4.8) k/uL Monocytes # (0-1.0) k/uL Sodium (137-145) mmol/L Chloride (98-107) mmol/L Carbon Dioxide (22-30) mmol/L Anion Gap (4.00-12.00) mmol/L BUN (9-20) mg/dL Creatinine (0.66-1.25) mg/dL Est GFR (CKD-EPI)AfAm (60.0-200.0) Est GFR (CKD-EPI)NonAf (60.0-200.0) Glucose (74-99) mg/dL POC Glucose (mg/dL) 210 H (75-99) mg/dL Alkaline Phosphatase (38-126) U/L Total Protein (6.2-8.2) g/dL Urine Protein 3+ H (Negative) Urine Glucose (UA) 3+ H (Negative) Urine Ketones Trace H (Negative) Urine Blood Moderate H (Negative) Ur Leukocyte Esterase Small H (Negative) Urine RBC 35 H (0-5) /hpf Urine WBC 53 H (0-5) /hpf Urine WBC Clumps Occasional H (None) /hpf Amorphous Sediment Moderate H (None) /hpf Urine Bacteria Rare H (None) /hpf Urine Mucus Few H (None) /hpf Microbiology - Last 24 Hours (Table) 04/11/20 07:22 Urine Culture - Preliminary Urine,Voided Thrombosis Risk Factor Assmnt - DVT/VTE Prophylaxis DVT/VTE Prophylaxis: Pharmacologic Prophylaxis ordered - Choose All That Apply Each Factor Represents 1 point: Age 41-60 years, Obesity (BMI >25), Swollen legs (current) Each Risk Factor Represents 3 Points: Family history of DVT/PE Thrombosis Risk Factor Assessment Total Risk Factor Score: 6 Thrombosis Risk Factor Assessment Level: High Risk Assessment and Plan Plan: #1 sepsis secondary to UTI initiated on levofloxacin 250 mg IV daily. Infectious disease consulted. Blood culture obtained. Patient received 1 L normal saline in the ER. Urine culture pending blood culture pending #2 fall likely secondary to UTI. PTOT consulted #3 acute metabolic encephalopathy likely secondary to to sepsis, uremia, pain medication and benzodiazepine. Missed dialysis 2 days. Nephrology consulted for hemodialysis. Hold Dilor noted. Ativan reduced to 0.5 3 times a day. Patient has not received any benzodiazepine in the hospital but did receive 2 doses of Dilantin ordered. #4 end-stage renal disease on hemodialysis Wednesday and Wednesday. Nephrology consulted for dialysis today. On PhosLo #5 acute syncope. Patient had a brief CPR as he lost his pulse and became unresponsive. Blood pressure was unobtainable. Cardiac consult placed echocardiogram placed. #6 coronary artery disease with previous PTCA to LAD and circumflex. Lexiscan was negative on previous admission. Continue Uloric was, Plavix, Imdur, losartan, metoprolol #7 paroxysmal atrial fibrillation on Eliquis and metoprolol, along with amiodarone 100 mg daily #8 ischemic cardiomyopathy: Hold Zaroxolyn and Lasix continue Lopressor, hydralazine, nitro #9 type 2 diabetes: On Levemir 20 units daily along with NovoLog per sliding scales coverage still on Actos 15 mg daily. #10 chronic neuropathy: Gabapentin reduced to `100 mg 3 times a day #11 hypertension: Still on metoprolol 37.5 mg daily losartan 50 mg a day hydralazine 50 mg 3 times a day. #12 chronic anemia: On iron and Procrit. #13 GI prophylaxis: Remain on Pepcid. #14 DVT prophylaxis: Still on Eliquis. #15 CODE STATUS: Full code. Admit patient to the inpatient service for more than 2 night stay.
--- NOTE | 2020-04-11 14:57 | XR ---
EXAMINATION TYPE: XR chest 1V portable DATE OF EXAM: 04/11/2020 Comparison: 04/10/2020 Clinical History: 59-year-old male CHF Findings: Right-sided double-lumen hemodialysis catheter with tips in the lower SVC and cavoatrial junction reg ion. Heart mildly enlarged. Diffuse interstitial and vascular prominence. No lucero consolidation or s izable effusion. Impression: Mild cardiomegaly with pulmonary vascular congestion. Right-sided hemodialysis catheter.
[2020-04-11] MEDS ORDERED: SODIUM CHLORIDE 0.9% 500 ML 500 ML IV ONE ×2 (15:12→16:00)
--- NOTE | 2020-04-11 15:30 | P.CNPUL ---
History of Present Illness Consult date: 04/11/20 Reason for consult: other (Cardiac arrest) Chief complaint: Unresponsiveness History of present illness: This is a 59-year-old white male admitted on 04/11/2020, admitted mostly with a diagnosis of sepsis and urinary tract infection, patient is known to have history of multiple medical problems, and has been falling recently quite frequently, is also known to have history of end-stage renal disease, on hemodialysis for the last 3 years, and he has a dialysis catheter in his right subclavian placed apparently a few weeks ago. He did have previous history of left AV fistula which has been nonfunctional recently and that is why he had a subclavian dialysis catheter. Patient is primarily a patient with Dr. Fab rosales, he receives dialysis is normally on Wednesday and Wednesday, he had previous history of coronary artery disease and previous angioplasty, stent placement. His other medical problems include chronic atrial fibrillation diabetes dyslipidemia hypertension, and diabetic neuropathy. This time the patient was admitted mostly with mental status change, multiple falls at home, apparently had a recent fall in the bathroom and had trauma CT of the head was unremarkable on admission. Patient missed 2 dialysis appointments and in the ER his blood pressure was significantly elevated at 202/94. He had a low-grade fever, he had a relatively normal electrolytes, blood sugar was 237, and his uri nalysis showed pyuria and bacteriuria. Hence patient was admitted mostly with the impression of UTI and sepsis. At 2:30 this afternoon, patient was receiving dialysis, as soon as dialysis was started, patient had a sudden episode of unresponsiveness, he was pulseless according to the team responded to him. Patient had less than 2 minutes of CPR, that there was return of spontaneous circulation, and return of pulse. No monitor was noted at the time, but by the time he woke up, patient was in atrial fibrillation with fairly controlled rhythm. Patient was transferred to the ICU, placed on a nonrebreather mask hemodynamically stable, I was asked to see him on consultation since he was transferred to the intensive care unit. Seen in the ICU, patient is on a nonrebreather mask, which I will transition to a high flow nasal cannula, patient is hemodynamically stable, he was in normal sinus rhythm, and he is a bit lethargic, but arousable, and follows all instructions. Labs from today were all reviewed. Again noted to have leukocytosis with WBC count 20.2, hemoglobin is 9.9. Troponin is 0.118, and his urine did show evidence of bacteriuria and pyuria. 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 And known history of underlying coronary artery disease with previous stent placement. Respiratory: Negative Gastrointestinal: Negative Genitourinary: Negative Musculoskeletal: History of multiple falls. Probably related to his neuropathy although the possibility of cardiac arrhythmia is not entirely ruled out. Integumentary: Negative Neurological: Recent fall and head trauma. But asymptomatic. Psychiatric: Negative Endocrine: History of diabetes with diabetic nephropathy and neuropathy. Hematologic/Lymphatic: Negative no clotting bleeding or bruising Past Medical History Past Medical History: Atrial Fibrillation, Coronary Artery Disease (CAD), Heart Failure, Diabetes Mellitus, Dialysis, Eye Disorder, GERD/Reflux, Hearing Disorder / Deafness, Hyperlipidemia, Hypertension, Myocardial Infarction ([place]), Renal Disease, Syncope Additional Past Medical History / Comment(s): IDDM type II, neuropathy bilateral hands/feet, ESRD with hemodialysis on //, He skipped this wednesday and wednesday the 04/08 and 04/10 due to illness, chronic anemia, LVH, Afib with RVR, MIs, chronic CHF, R eye blindness, L eye legally blind, RLS, pt unsure if he has gout, vertigo at times, balance issues at times, stomach ulcer at age 17yrs, sinus problems, very COMANCHE R ear. Last Myocardial Infarction Date:: 08/09/18 History of Any Multi-Drug Resistant Organisms: None Reported Past Surgical History: Heart Catheterization, Heart Catheterization With Stent Additional Past Surgical History / Comment(s): TTT, PD catheter placement/since removed, 2016 L arm fistula, fistula gram with balloon for stenosis, L eye vitrectomy, thyroid needle aspiration-negative, L leg cyst, colonoscopy with benign polypectomy. port placed in chest Right side. Past Anesthesia/Blood Transfusion Reactions: Postoperative Nausea & Vomiting (PONV) Date of Last Stent Placement:: 03-03-18 Past Psychological History: Anxiety, Depression Additional Psychological History / Comment(s): Pt resides with his spouse, AND SON. He is legally blind L eye and blind in R eye. He is very COMANCHE in R ear. He has a cane and walker which he uses prn. His spouse and son drive. Pt uses glasses and a magnifier to read. He has depression which he states is constantly present but not increased. He denies thoughts/plans of suicide. Smoking Status: Former smoker Past Alcohol Use History: None Reported Additional Past Alcohol Use History / Comment(s): Pt started smoking in 1972 and quit in 1995. Past Drug Use History: None Reported - Past Family History Father Family Medical History: Cancer, Coronary Artery Disease (CAD), Hyperlipidemia Additional Family Medical History / Comment(s): Lung/BRAIN CANCER Mother Family Medical History: Diabetes Mellitus, Deep Vein Thrombosis (DVT), Oste oarthritis (OA) Additional Family Medical History / Comment(s): DJD Sister(s) Family Medical History: Diabetes Mellitus Additional Family Medical History / Comment(s): Patient has one sister with diabetes mellitus type 2, SLE, MS. Brother(s) Family Medical History: Diabetes Mellitus Additional Family Medical History / Comment(s): Patient has 4 kids no major med ical problems. Daughter(s) Family Medical History: No Reported History Additional Family Medical History / Comment(s): Patient has 2 daughters no major medical problems. Son(s) Family Medical History: No Reported History Additional Family Medical History / Comment(s): Patient has 2 sons no major medical problems. Medications and Allergies Home Medications Medication Instructions Recorded Confirmed Type Clopidogrel [Plavix] 75 mg PO DAILY #30 tab 03/05/18 04/10/20 Rx Insulin Glargine,Hum.rec.anlog 33 unit SQ DAILY 03/24/18 04/10/20 History [Basaglar Kwikpen U-100] Calcium Acetate [PhosLo] 1,334 mg PO AC-TID PRN 08/05/18 04/10/20 History Insulin Aspart [NovoLOG Flexpen] See Protocol SQ ACHS 08/05/18 04/10/20 History LORazepam [Ativan] 2 mg PO TID PRN 08/05/18 04/10/20 History Amiodarone [Cordarone] 100 mg PO DAILY 04/13/19 04/10/20 History Furosemide [Lasix] 80 mg PO DAILY 04/13/19 04/10/20 History Metoprolol Tartrate [Lopressor] 25 mg PO DAILY 04/13/19 04/10/20 History Triamcinolone 0.1% Ointment 1 applic TOPICAL BID PRN 04/13/19 04/10/20 History [Kenalog] metOLazone [Zaroxolyn] 5 mg PO DAILY 04/13/19 04/10/20 History Isosorbide Mononitrate ER [Imdur] 30 mg PO DAILY #30 tab.er.24h 07/22/19 04/10/20 Rx Apixaban [Eliquis] 2.5 mg PO BID 02/06/20 04/10/20 History Pioglitazone [Actos] 15 mg PO DAILY 02/06/20 04/10/20 History hydrALAZINE HCL [Apresoline] 50 mg PO TID 02/06/20 04/10/20 History hydrOXYzine pamoate [Vistaril] 100 mg PO TID PRN 02/06/20 04/10/20 History traMADol HCL [Ultram] 50 mg PO TID PRN 02/06/20 04/10/20 History Allopurinol [Zyloprim] 100 mg PO DAILY 02/17/20 04/10/20 History Gabapentin 300 mg PO BID 02/17/20 04/10/20 History Losartan [Cozaar] 50 mg PO HS 02/17/20 04/10/20 History Metoprolol Tartrate [Lopressor] 12.5 mg PO HS 02/17/20 04/10/20 History Nitroglycerin Sl Tabs [Nitrostat] 0.4 mg SL Q5M PRN 02/17/20 04/10/20 History Pantoprazole [Protonix] 40 mg PO DAILY 02/17/20 04/10/20 History HYDROcodone/APAP 10-325MG [[place] 1 tab PO Q4HR PRN 3 Days #18 tab 02/26/20 04/10/20 Rx 10-325] Allergies Allergy/AdvReac Type Severity Reaction Status Date / Time bumetanide [From Bumex] Allergy Hallucinati Verified 04/10/20 14:16 ons Penicillins Allergy Anaphylaxis Verified 04/10/20 14:16 spironolactone Allergy Hallucinati Verified 04/10/20 14:16 ons morphine AdvReac Confusion Verified 02/17/21 14:16 rivaroxaban [From Xarelto] AdvReac Bloody Nose Verified 04/10/20 14:16 All antibiotics except Keflex Allergy Unknown Uncoded 04/10/20 14:16 Childhood Physical Exam Vitals: Vital Signs Temp Pulse Pulse Resp BP BP Pulse Ox 04/11/20 07:17 98.6 F 75 17 114/62 96 04/11/20 05:10 98.4 F 79 17 134/65 94 L 04/10/20 23:40 14 04/10/20 22:34 98.5 F 85 14 196/85 93 L 04/10/20 20:50 98.9 F 82 18 172/90 97 04/10/20 18:17 76 18 162/88 98 04/10/20 17:11 71 18 169/86 98 04/10/20 15:51 89 18 195/95 93 L Intake and Output 04/11/20 04/11/20 04/11/20 06:59 14:59 22:59 Output Total 600 Balance -600 Output: Urine 600 Other: Voiding Method Urinal Weight 95.254 kg Physical Exam: Revealed 59-year-old white male obese, in no distress, lethargic but arousable, on nonrebreather mask in the ICU. Head: Atraumatic, normocephalic. HEENT:[Neck is supple.] [No neck masses.] [No thyromegaly.] [No JVD.] There is evidence of chronic closure to right eye, with drooping of the right upper ey elid. Patient has a Mallampati class IV. Chest: Symmetrical chest expansion. Diminished breath sounds at the bases no rhonchi and no wheezes. Cardiac Exam: [Normal S1 and S2, no S3 gallop, no murmur.] Abdomen: The skull, [Soft, nontender, no megaly, no rebound, no guarding, normal bowel sounds.] Extremities: [No clubbing, no edema, no cyanosis.] AV fistula noted in left upper extremity. Right subclavian dialysis catheter noted. Neurological Exam: Lethargic but arousable and follows simple instructions seems to be slow otherwise no focal deficits Psychiatric: Depressed mood, blunt affect, slow but relatively normal mental status. Skin: No rashes. Results - Laboratory Findings CBC and BMP: 04/11/20 14:03 04/11/20 05:42 PT/INR, D-dimer PT 11.2 sec (9.0-12.0) 04/10/20 14:26 INR 1.1 (<1.2) 04/10/20 14:26 Abnormal lab findings: Abnormal Labs 04/10/20 04/10/20 04/11/20 14:26 14:26 05:42 WBC 20.2 H RBC 3.78 L Hgb 10.7 L Hct 32.4 L RDW 15.6 H Neutrophils # 18.1 H Lymphocytes # 0.4 L Monocytes # 1.2 H Sodium 133 L Chloride 92 L 94 L Carbon Dioxide 21 L 17.5 L Anion Gap 23.50 H BUN 86 H 98.0 H Creatinine 7.56 H* 7.1 H* Est GFR (CKD-EPI)AfAm 8.8 L Est GFR (CKD-EPI)NonAf 7.6 L Glucose 237 H 174 H POC Glucose (mg/dL) Hemoglobin A1c Phosphorus Alkaline Phosphatase 151 H 145 H Total Protein 5.9 L Urine Protein Urine Glucose (UA) Urine Ketones Urine Blood Ur Leukocyte Esterase Urine RBC Urine WBC Urine WBC Clumps Amorphous Sediment Urine Bacteria Urine Mucus 04/11/20 04/11/20 04/11/20 05:42 05:42 06:51 WBC RBC Hgb Hct RDW Neutrophils # Lymphocytes # Monocytes # Sodium Chloride Carbon Dioxide Anion Gap BUN Creatinine Est GFR (CKD-EPI)AfAm Est GFR (CKD-EPI)NonAf Glucose POC Glucose (mg/dL) 210 H Hemoglobin A1c 10.1 H Phosphorus 8.6 H Alkaline Phosphatase Total Protein Urine Protein Urine Glucose (UA) Urine Ketones Urine Blood Ur Leukocyte Esterase Urine RBC Urine WBC Urine WBC Clumps Amorphous Sediment Urine Bacteria Urine Mucus 04/11/20 04/11/20 04/11/20 07:22 11:16 11:29 WBC 20.9 H RBC 3.45 L Hgb 9.3 L Hct 30.1 L RDW 15.8 H Neutrophils # 18.7 H Lymphocytes # 0.4 L Monocytes # 1.3 H Sodium Chloride Carbon Dioxide Anion Gap BUN Creatinine Est GFR (CKD-EPI)AfAm Est GFR (CKD-EPI)NonAf Glucose POC Glucose (mg/dL) 170 H Hemoglobin A1c Phosphorus Alkaline Phosphatase Total Protein Urine Protein 3+ H Urine Glucose (UA) 3+ H Urine Ketones Trace H Urine Blood Moderate H Ur Leukocyte Esterase Small H Urine RBC 35 H Urine WBC 53 H Urine WBC Clumps Occasional H Amorphous Sediment Moderate H Urine Bacteria Rare H Urine Mucus Few H 04/11/20 04/11/20 04/11/20 13:56 14:03 14:13 WBC 20.2 H RBC 3.55 L Hgb 9.9 L Hct 30.2 L RDW Neutrophils # 17.9 H Lymphocytes # 0.8 L Monocytes # Sodium Chloride Carbon Dioxide Anion Gap BUN Creatinine Est GFR (CKD-EPI)AfAm Est GFR (CKD-EPI)NonAf Glucose POC Glucose (mg/dL) 154 H 184 H Hemoglobin A1c Phosphorus Alkaline Phosphatase Total Protein Urine Protein Urine Glucose (UA) Urine Ketones Urine Blood Ur Leukocyte Esterase Urine RBC Urine WBC Urine WBC Clumps Amorphous Sediment Urine Bacteria Urine Mucus - Diagnostic Findings Chest x-ray: image reviewed (Chest x-ray showed cardiomegaly, right hemodialysis catheter noted, otherwise unremarkable.) Additional studies: Computed tomography scan of head and cervical spine done on admission was relatively unremarkable. Assessment and Plan Assessment: Impression: Cardiac arrest, possible asystole or possible pulseless electrical activity, br ief, responded to 2 minutes of CPR. Chronic end-stage renal disease on hemodialysis, noncompliant and has been skipping dialysis. Possible urinary tract infection based on his urinalysis. Cultures are pending. Recurrent falls, could be related to his diabetic neuropathy/peripheral diabetic neuropathy or could be cardiac in nature with cardiac arrhythmia, needs to be further investigated. History of ischemic cardiomyopathy and underlying coronary artery disease Type 2 diabetes with multiple complications including diabetic neuropathy, and nephropathy. Chronic anemia secondary to chronic renal disease. Suspect some component of obstructive sleep apnea syndrome. Morbid obesity. Recommendation: Continue to monitor the patient in the ICU. Transition his nonrebreather mask to high flow nasal cannula and titrate accordingly. Cardiology to see the patient on consultation. Resume hemodialysis tomorrow. Empiric antibiotics for presumptive urinary tract infection. Patient was initiated on Levaquin upon admission. Resume his diabetic medications including Levemir insulin, NovoLog insulin and Actos. Close monitoring of his electrolytes and frequent observation of his blood sugars. We will continue to follow while in the ICU. Time with Patient: Greater than 30
[2020-04-11 15:32] LABS: Phosphorus 10.3 mg/dL (2.5-4.5)
[2020-04-11 15:33] LABS: ALT 1290 U/L (4-49)
[2020-04-11] MEDS: NALOXONE 0.4 MG/ML 1 ML VIAL IV PRN ×2 (15:35→16:38)
[2020-04-11] MEDS ORDERED: NOREPINEPHRIN 4 MG-0.9% NS PMX 4 MG/250 ML ML IV ONE ×2 (15:37→15:38)
[2020-04-11 15:40] LABS: Glucose,Whole Blood 183 mg/dL (75-99)
[2020-04-11 15:46] LABS: AST 2029 U/L (17-59)
[2020-04-11 16:03] LABS: ABG Base Excess -5.2 mmol/L; ABG HCO3 20 mmol/L (21-25); ABG Oxygen Saturation 83.5 % (94-97); ABG PCO2 33 mmHg (35-45); ABG PH 7.39 (7.35-7.45); ABG TCO2 21 mmol/L (19-24); Allen Test Performed? Yes
[2020-04-11 16:09] LABS: ABG PO2 53 mmHg (83-108)
[2020-04-11] MEDS: GABAPENTIN 100 MG CAP PO SCH ×2 (16:37→21:50)
[2020-04-11] MEDS ORDERED: CHLORHEXIDINE GLUCONATE 15 ML CUP MUCOUS MEM ONE (16:57)
[2020-04-11] MEDS: NOREPINEPHRINE 4 MG in SODIUM CHLORIDE 0.9% 250 ML IV SCH (20:00)
--- NOTE | 2020-04-11 20:36 | US ---
EXAMINATION TYPE: US liver DATE OF EXAM: 04/11/2020 COMPARISON: US, CT CLINICAL HISTORY: elevated liver enzymes . Elevated liver enzymes. Hx right kidney cyst. Cholecystect bela per patient. EXAM MEASUREMENTS: Liver Length: 20.92 cm CBD: 0.59 cm Right Kidney: 11.5 x 5.7 x 5.7 cm Pancreas: Appears hyperechoic. Limited due to gas. Liver: Appears enlarged. Gallbladder: Not visualized, patient states he had his gallbladder removed. Evidence for sonographic Otero's sign: No CBD: Measures upper limits of normal. Right Kidney: No hydronephrosis or soft tissue mass. Study Limitation: Visualization limited due to gas. IMPRESSION: 1. No acute process. 2. Hepatomegaly.
[2020-04-11 21:19] LABS: Glucose,Whole Blood 173 mg/dL (75-99)
[2020-04-11] MEDS: APIXABAN 2.5 MG TABLET PO SCH (21:50)
[2020-04-12 04:51] LABS: Basophils # (A) 0.1 k/uL (0-0.2); Basophils % (A) 0 %; Eosinophils # (A) 0.1 k/uL (0-0.7); Eosinophils % (A) 0 %; HCT 30.8 % (39.0-53.0); HGB 9.9 gm/dL (13.0-17.5); Lymphocytes # (A) 0.8 k/uL (1.0-4.8); Lymphocytes % (A) 4 %; MCH 27.9 pg (25.0-35.0); MCHC 32.2 g/dL (31.0-37.0); MCV 86.9 fL (80.0-100.0); Mean Platelet Volume 8.3; Monocytes # (A) 1.1 k/uL (0-1.0); Monocytes % (A) 6 %; Neutrophils # (A) 16.1 k/uL (1.3-7.7); Neutrophils % (A) 87 %; Platelet Count 222 k/uL (150-450); RBC 3.54 m/uL (4.30-5.90); RDW 15.6 % (11.5-15.5); WBC 18.4 k/uL (3.8-10.6)
[2020-04-12 05:04] LABS: Albumin 3.1 g/dL (3.5-5.0); Calcium 9.1 mg/dL (8.4-10.2); Magnesium 2.3 mg/dL (1.6-2.3); Potassium 4.4 mmol/L (3.5-5.1); Total Bilirubin 1.7 mg/dL (0.2-1.3); Total Protein 6.1 g/dL (6.3-8.2)
[2020-04-12 05:14] LABS: Phosphorus 10.7 mg/dL (2.5-4.5)
[2020-04-12] MEDS: NOREPINEPHRINE 4 MG in SODIUM CHLORIDE 0.9% 250 ML IV SCH ×2 (06:07→19:34)
[2020-04-12] MEDS: INSULIN ASPART (NovoLOG) 100 UNIT/ML VIAL SQ SCH ×4 (06:50→21:30)
[2020-04-12 06:57] LABS: Glucose,Whole Blood 150 mg/dL (75-99)
[2020-04-12] MEDS: CLOPIDOGREL 75 MG TAB PO SCH (09:11)
[2020-04-12] MEDS: GABAPENTIN 100 MG CAP PO SCH ×3 (09:11→21:57)
[2020-04-12] MEDS: allopurinoL 100 MG TAB PO SCH (09:11)
[2020-04-12] MEDS: AMIODARONE 100 MG TAB PO SCH (09:11)
[2020-04-12] MEDS: METOPROLOL TARTRATE 25 MG TAB PO SCH ×2 (09:11→21:57)
[2020-04-12] MEDS: LEVOFLOXACIN 250MG-D5W PMX 250 MG in DEXTROSE/WATER 1 50ML.BAG IVPB SCH (09:11)
[2020-04-12] MEDS: PANTOPRAZOLE 40 MG TABLET PO SCH (09:11)
[2020-04-12] MEDS: APIXABAN 2.5 MG TABLET PO SCH ×2 (09:11→21:57)
[2020-04-12 09:16] LABS: Glucose,Whole Blood 138 mg/dL (75-99)
[2020-04-12] MEDS: INSULIN DETEMIR (LEVEMIR) 100 UNIT/ML SYR SQ SCH (09:17)
--- NOTE | 2020-04-12 09:23 | P.CRDCN ---
History of Present Illness Consult date: 04/12/20 History of present illness: This is a 59-year-old gentleman with coronary artery disease and prior stenting of the left anterior descending artery as well as paroxysmal atrial fibrillation as well as renal failure and currently the patient is on hemodialysis who we requested to see as a consult in the intensive care unit. The patient somewhat is a poor historian. The patient initially presented to the hospital feeling weak and tired. No symptoms and no indication that he was experiencing any chest pain or chest discomfort or any increasing in the shortness of breath or any dizziness or lightheadedness or syncope. He was admitted initially to 3 . the patient was going to have dialysis then it was noticed that he was hypotensive. Subsequently he did have an episode of PEA. Because of that the patient was brought to the intensive care unit. Initially he required vasopressors was norepinephrine but subsequently the patient was of norepinephrine. He remains a stable. He remains in normal sinus mechanism but earlier today he did have a brief episode of atrial fibrillation with RVR and subsequently he was converted to normal sinus mechanism. We consulted to see the patient because of possible cardiac arrest and possible asystole but I do think that the patient did have a profound episode of vasovagal. The EKG showed sinus rhythm. The troponin is a slightly elevated but he is renal failure on dialysis. He no indication this morning when the patient was seen that he is experiencing any chest pain or chest discomfort. He is on oral anticoagulation. The chest x-ray showed mild pulmonary vascular congestion. Past Medical History Past Medical History: Atrial Fibrillation, Coronary Artery Disease (CAD), Heart Failure, Diabetes Mellitus, Dialysis, Eye Disorder, GERD/Reflux, Hearing Disorder / Deafness, Hyperlipidemia, Hypertension, Myocardial Infarction ([place]), Renal Disease, Syncope Additional Past Medical History / Comment(s): IDDM type II, neuropathy bilateral hands/feet, ESRD with hemodialysis on //, He skipped this wednesday and wednesday the 04/08 and 04/10 due to illness, chronic anemia, LVH, Afib with RVR, MIs, chronic CHF, R eye blindness, L eye legally blind, RLS, pt unsure if he has gout, vertigo at times, balance issues at times, stomach ulcer at age 17yrs, sinus problems, very [place] R ear. Last Myocardial Infarction Date:: 08/09/18 History of Any Multi-Drug Resistant Organisms: None Reported Past Surgical History: Heart Catheterization, Heart Catheterization With Stent Additional Past Surgical History / Comment(s): TTT, PD catheter placement/since removed, 2017 L arm fistula, fistula gram with balloon for stenosis, L eye vitrectomy, thyroid needle aspiration-negative, L leg cyst, colonoscopy with benign polypectomy. port placed in chest Right side. Past Anesthesia/Blood Transfusion Reactions: Postoperative Nausea & Vomiting (PONV) Date of Last Stent Placement:: 03-03-18 Past Psychological History: Anxiety, Depression Additional Psychological History / Comment(s): Pt resides with his spouse, AND SON. He is legally blind L eye and blind in R eye. He is very [place] in R ear. He has a cane and walker which he uses prn. His spouse and son drive. Pt uses glasses and a magnifier to read. He has depression which he states is constantly present but not increased. He denies thoughts/plans of suicide. Smoking Status: Former smoker Past Alcohol Use History: None Reported Additional Past Alcohol Use History / Comment(s): Pt started smoking in 1972 and quit in 1995. Past Drug Use History: None Reported - Past Family History Father Family Medical History: Cancer, Coronary Artery Disease (CAD), Hyperlipidemia Additional Family Medical History / Comment(s): Lung/BRAIN CANCER Mother Family Medical History: Diabetes Mellitus, Deep Vein Thrombosis (DVT), Osteoarthritis (OA) Additional Family Medical History / Comment(s): DJD Sister(s) Family Medical History: Diabetes Mellitus Additional Family Medical History / Comment(s): Patient has one sister with diabetes mellitus type 2, SLE, MS. Brother(s) Family Medical History: Diabetes Mellitus Additional Family Medical History / Comment(s): Patient has 4 kids no major medical problems. Daughter(s) Family Medical History: No Reported History Additional Family Medical History / Comment(s): Patient has 2 daughters no major medical problems. Son(s) Family Medical History: No Reported History Additional Family Medical History / Comment(s): Patient has 2 sons no major medical problems. Medications and Allergies Home Medications Medication Instructions Recorded Confirmed Type Clopidogrel [Plavix] 75 mg PO DAILY #30 tab 03/05/18 04/10/20 Rx Insulin Glargine,Hum.rec.anlog 33 unit SQ DAILY 03/24/18 04/10/20 History [Basaglar Kwikpen U-100] Calcium Acetate [PhosLo] 1,334 mg PO AC-TID PRN 08/05/18 04/10/20 History Insulin Aspart [NovoLOG Flexpen] See Protocol SQ ACHS 08/05/18 04/10/20 History LORazepam [Ativan] 2 mg PO TID PRN 08/05/18 04/10/20 History Amiodarone [Cordarone] 100 mg PO DAILY 04/13/19 04/10/20 History Furosemide [Lasix] 80 mg PO DAILY 04/13/19 04/10/20 History Metoprolol Tartrate [Lopressor] 25 mg PO DAILY 04/13/19 04/10/20 History Triamcinolone 0.1% Ointment 1 applic TOPICAL BID PRN 04/13/19 04/10/20 History [Kenalog] metOLazone [Zaroxolyn] 5 mg PO DAILY 04/13/19 04/10/20 History Isosorbide Mononitrate ER [Imdur] 30 mg PO DAILY #30 tab.er.24h 07/22/19 04/10/20 Rx Apixaban [Eliquis] 2.5 mg PO BID 02/06/20 04/10/20 History Pioglitazone [Actos] 15 mg PO DAILY 02/06/20 04/10/20 History hydrALAZINE HCL [Apresoline] 50 mg PO TID 02/06/20 04/10/20 History hydrOXYzine pamoate [Vistaril] 100 mg PO TID PRN 02/06/20 04/10/20 History traMADol HCL [Ultram] 50 mg PO TID PRN 02/06/20 04/10/20 History Allopurinol [Zyloprim] 100 mg PO DAILY 02/17/20 04/10/20 History Gabapentin 300 mg PO BID 02/17/20 04/10/20 History Losartan [Cozaar] 50 mg PO HS 02/17/20 04/10/20 History Metoprolol Tartrate [Lopressor] 12.5 mg PO HS 02/17/20 04/10/20 History Nitroglycerin Sl Tabs [Nitrostat] 0.4 mg SL Q5M PRN 02/17/20 04/10/20 History Pantoprazole [Protonix] 40 mg PO DAILY 02/17/20 04/10/20 History HYDROcodone/APAP 10-325MG [[place] 1 tab PO Q4HR PRN 3 Days #18 tab 02/26/20 04/10/20 Rx 10-325] Allergies Allergy/AdvReac Type Severity Reaction Status Date / Time bumetanide [From Bumex] Allergy Hallucinati Verified 04/10/20 14:16 ons Penicillins Allergy Anaphylaxis Verified 04/10/20 14:16 spironolactone Allergy Hallucinati Verified 04/10/20 14:16 ons morphine AdvReac Confusion Verified 04/10/20 14:16 rivaroxaban [From Xarelto] AdvReac Bloody Nose Verified 04/10/20 14:16 All antibiotics except Keflex Allergy Unknown Uncoded 04/10/20 14:16 Childhood Physical Exam Vitals: Vital Signs Temp Pulse Pulse Resp BP BP Pulse Ox 04/12/20 07:00 67 19 156/71 95 04/12/20 06:30 65 13 108/92 100 04/12/20 06:00 65 15 152/75 98 04/12/20 05:30 64 10 L 134/72 98 04/12/20 05:00 61 13 144/86 98 04/12/20 04:30 62 13 138/70 98 04/12/20 04:00 97.4 F L 61 13 137/70 98 04/12/20 03:30 61 14 135/69 98 04/12/20 03:00 60 10 L 126/79 98 04/12/20 02:30 59 L 13 134/70 99 04/12/20 02:00 60 14 117/65 98 04/12/20 01:30 60 13 117/61 98 04/12/20 01:00 60 15 141/74 97 04/12/20 00:30 61 17 136/74 98 04/12/20 00:06 60 12 136/74 97 04/12/20 00:00 98.0 F 60 12 139/70 99 04/11/20 23:30 60 14 145/74 97 04/11/20 23:00 61 11 L 139/70 99 04/11/20 22:30 61 12 133/72 97 04/11/20 22:00 61 12 138/72 97 04/11/20 21:30 61 12 128/71 97 04/11/20 21:00 60 11 L 115/66 97 04/11/20 20:30 60 16 111/59 98 04/11/20 20:00 97.6 F 58 L 23 116/70 98 04/11/20 19:30 57 L 24 83/43 98 04/11/20 19:00 58 L 18 108/67 99 04/11/20 18:45 56 L 12 101/68 97 04/11/20 18:30 59 L 17 105/67 97 04/11/20 18:15 59 L 16 89/58 97 04/11/20 18:00 58 L 12 100/60 95 04/11/20 17:45 58 L 15 95/59 97 04/11/20 17:30 57 L 15 109/73 98 04/11/20 17:15 58 L 19 101/64 90 L 04/11/20 17:13 13 04/11/20 17:00 62 22 108/59 92 L 04/11/20 16:45 62 18 109/65 97 04/11/20 16:40 98.6 F 126 H 13 185/119 04/11/20 16:38 10 L 04/11/20 16:30 63 11 L 119/62 97 04/11/20 16:20 64 10 L 129/69 94 L 04/11/20 16:15 65 16 132/78 97 04/11/20 16:10 64 14 104/56 96 04/11/20 16:05 63 10 L 76/35 96 04/11/20 16:00 103 H 23 125/80 86 L 04/11/20 15:55 113 H 16 148/96 92 L 04/11/20 15:50 117 H 21 165/92 94 L 04/11/20 15:45 116 H 18 185/119 92 L 04/11/20 15:40 81 17 77/52 96 04/11/20 15:35 81 9 L 04/11/20 15:30 58 L 17 115/85 94 L 04/11/20 15:25 61 19 80/50 95 04/11/20 15:20 62 17 80/50 94 L 04/11/20 15:15 62 15 88/54 94 L 04/11/20 15:00 63 13 84/45 91 L 04/11/20 14:45 63 10 L 83/54 98 04/11/20 14:30 63 16 93/54 98 04/11/20 13:50 133 H 15 169/95 Intake and Output 04/11/20 04/12/20 04/12/20 22:59 06:59 14:59 Intake Total 46.636 Output Total 5 10 Balance -5 36.636 Intake: Intake, IV Titration 46.636 Amount Norepinephrine 4 mg In 46.636 Sodium Chloride 0.9% 250 ml @ 0.05 MCG/KG/MIN 18. 146 mls/hr IV .Q14H [facility] Rx#:[id number] Output: Urine 5 10 Other: Voiding Method Indwelling Catheter Indwelling Catheter Weight 94.4 kg - Constitutional General appearance: no acute distress - Respiratory Respiratory: bilateral: CTA - Cardiovascular Rhythm: regular Heart sounds: normal: S1, S2 Abnormal Heart Sounds: systolic murmur Results 04/12/20 04:24 04/12/20 04:24 Cardiac Enzymes 04/11/20 04/11/20 04/11/20 Range/Units 05:42 14:32 14:32 AST 18 2029 H (14-35) U/L Troponin I 0.118 H* (0.000-0.034) ng/mL 04/12/20 Range/Units 04:24 AST 2932 H (14-35) U/L Troponin I (0.000-0.034) ng/mL CBC 04/11/20 04/11/20 04/12/20 Range/Units 11:16 14:03 04:24 WBC 20.9 H 20.2 H 18.4 H (3.8-10.6) k/uL RBC 3.45 L 3.55 L 3.54 L (4.30-5.90) m/uL Hgb 9.3 L 9.9 L 9.9 L (13.0-17.5) gm/dL Hct 30.1 L 30.2 L 30.8 L (39.0-53.0) % Plt Count 240 209 222 (150-450) k/uL Comprehensive Metabolic Panel 04/11/20 04/11/20 04/12/20 Range/Units 05:42 14:32 04:24 Sodium 135 133 L 134 L (135-145) mmol/L Potassium 3.9 4.2 4.4 (3.5-5.5) mmol/L Chloride 94 L 97 L 97 L (96-109) mmol/L Carbon Dioxide 17.5 L 17 L 19 L (21.6-31.8) mmol/L BUN 98.0 H 92 H 104 H* (9.0-27.0) mg/dL Creatinine 7.1 H* 7.67 H* 8.15 H* (0.6-1.5) mg/dL Glucose 174 H 163 H 154 H (70-110) mg/dL Calcium 8.8 8.8 9.1 (8.7-10.3) mg/dL AST 18 2028 H 2932 H (14-35) U/L ALT 23 1290 H 2723 H (10-49) U/L Alkaline Phosphatase 145 H 341 H 449 H (41-126) U/L Total Protein 5.9 L 6.0 L 6.1 L (6.2-8.2) g/dL Albumin 3.80 3.1 L 3.1 L (3.80-4.90) g/dL Current Medications Generic Name Dose Route Start Last Admin Trade Name Freq PRN Reason Stop Dose Admin Hydrocodone Bitart/Acetaminophen 1 each 04/11/20 00:20 Hydrocodone/Apap 10-325mg 1 Each Tab PO Q4HR PRN Pain Allopurinol 100 mg 04/11/20 09:00 04/12/20 09:11 Allopurinol 100 Mg Tab PO 100 mg DAILY JLUIS Administration Amiodarone HCl 100 mg 04/11/20 09:00 04/12/20 09:11 Amiodarone 100 Mg Tab PO 100 mg DAILY JLUIS Administration Apixaban 2.5 mg 04/11/20 21:00 04/12/20 09:11 Apixaban 2.5 Mg Tablet PO 2.5 mg BID JLUIS Administration Calcium Acetate 1,334 mg 04/11/20 00:20 Calcium Acetate 667 Mg Tab PO AC-TID PRN W/MEALS Clopidogrel Bisulfate 75 mg 04/12/20 09:00 04/12/20 09:11 Clopidogrel 75 Mg Tab PO 75 mg DAILY JLUIS Administration Gabapentin 100 mg 04/11/20 16:00 04/12/20 09:11 Gabapentin 100 Mg Cap PO 100 mg TID JLUIS Administration Hydralazine HCl 50 mg 04/11/20 00:30 04/11/20 21:51 Hydralazine Hcl 50 Mg Tab PO Not Given TID JLUIS Hydroxyzine Pamoate 100 mg 04/11/20 00:30 Hydroxyzine Pamoate 25 Mg Cap PO TID PRN Itching Levofloxacin/Dextrose 250 mg/ 50 mls @ 50 mls/hr 04/12/20 09:00 04/12/20 09:11 IV Solution IVPB 50 mls/hr Q48H JLU[facility] Administration Norepinephrine Bitartrate 4 mg 254 mls @ 18.146 mls/hr 04/11/20 16:00 04/12/20 06:07 / Sodium Chloride IV Not Given .Q14H [facility] Protocol 0.05 MCG/KG/MIN Insulin Aspart 0 unit 04/11/20 07:30 04/12/20 06:50 Insulin Aspart (Novolog) 100 Unit/Ml Vial SQ 1 unit ACHS [facility] Administration Protocol Insulin Detemir 20 unit 04/11/20 09:00 04/12/20 09:17 Insulin Detemir (Levemir) 100 Unit/Ml Syr SQ 20 unit DAILY JLUIS Administration Isosorbide Mononitrate 30 mg 04/11/20 09:00 04/11/20 08:06 Isosorbide Mononitrate Er 30 Mg Tab.Er.24h PO 30 mg DAILY [facility] Administration Lorazepam 0.5 mg 04/11/20 14:34 Lorazepam 1 Mg Tab PO TID PRN Anxiety Losartan Potassium 50 mg 04/11/20 00:30 04/11/20 20:57 Losartan 50 Mg Tab PO Not Given HS [facility] Metoprolol Tartrate 25 mg 04/11/20 09:00 04/12/20 09:11 Metoprolol Tartrate 25 Mg Tab PO 25 mg DAILY [facility] Administration Metoprolol Tartrate 25 mg 04/12/20 21:00 Metoprolol Tartrate 25 Mg Tab PO HS [facility] Naloxone HCl 0.2 mg 04/10/20 18:19 04/11/20 16:38 Naloxone 0.4 Mg/Ml 1 Ml Vial IV 0.2 mg Q2M PRN Administration Opioid Reversal Nitroglycerin 0.4 mg 04/11/20 00:20 Nitroglycerin Sl Tabs 0.4 Mg Tab SUBLINGUAL Q5M PRN Chest Pain Ondansetron HCl 4 mg 04/10/20 18:19 Ondansetron 4 Mg/2 Ml Vial IVP Q8HR PRN Nausea And Vomiting Pantoprazole Sodium 40 mg 04/11/20 09:00 04/12/20 09:11 Pantoprazole 40 Mg Tablet PO 40 mg DAILY JLUIS Administration Triamcinolone Acetonide 1 applic 04/11/20 01:00 Triamcinolone Acet 0.1% Ointment 80 Gm Tube TOPICAL BID PRN ITCHING/RASH Intake and Output 04/11/20 04/12/20 04/12/20 22:59 06:59 14:59 Intake Total 46.636 Output Total 5 10 Balance -5 36.636 Intake: Intake, IV Titration 46.636 Amount Norepinephrine 4 mg In 46.636 Sodium Chloride 0.9% 250 ml @ 0.05 MCG/KG/MIN 18. 146 mls/hr IV .Q14H [facility] Rx#:[id number] Output: Urine 5 10 Other: Voiding Method Indwelling Catheter Indwelling Catheter Weight 94.4 kg 04/12/20 04:24 04/12/20 04:24 Assessment and Plan Assessment: Assessment #1 an episode of asystole could be related to vasovagal #2 paroxysmal atrial fibrillation #3 coronary artery disease #4 end stage renal disease on dialysis #5 multiple comorbid conditions Plan #1 increase the dose of metoprolol #2 continue monitor the blood pressure #3 continue oral anticoagulation #4 follow-up with the patient
--- NOTE | 2020-04-12 09:25 | P.PN ---
Subjective Patient is seen in follow-up for end-stage renal disease. He is maintained on hemodialysis on Wednesday schedule. Patient became unresponsive during dialysis yesterday and required about 2 minutes of CPR with response to circulation. Similar episode happened when dialysis was reattempted at a later time. Dialysis was terminated due to hemodynamic instability. Currently is on a BiPAP. He is awake and alert. Admits to soreness due to CPR. No shortness of breath. Blood pressure is stable. Vital signs are stable. General: The patient appeared well nourished and normally developed. HEENT: Currently on BiPAP. LUNGS: Breath sounds decreased. HEART: Rate and Rhythm are regular. ABDOMEN: Soft, nontender. EXTREMITITES: No edema. Objective - Vital Signs Vital signs: Vital Signs Temp 97.4 F L 04/12/20 04:00 Pulse 67 04/12/20 07:00 Resp 19 04/12/20 07:00 BP 156/71 04/12/20 07:00 Pulse Ox 95 04/12/20 07:00 Intake & Output 04/11/20 04/12/20 04/12/20 18:59 06:59 18:59 Intake Total 46.636 Output Total 0 15 Balance 0 31.636 Weight 94.4 kg Intake: Intake, IV Titration 46.636 Amount Norepinephrine 4 mg In 46.636 Sodium Chloride 0.9% 250 ml @ 0.05 MCG/KG/MIN 18. 146 mls/hr IV .Q14H [facility] Rx#:[id number] Output: Urine 0 15 Other: Voiding Method Indwelling Catheter Indwelling Catheter - Labs CBC & Chem 7: 04/12/20 04:24 04/12/20 04:24 Labs: Abnormal Lab Results - Last 24 Hours (Table) 04/11/20 04/11/20 04/11/20 Range/Units 05:42 05:42 05:42 WBC (3.8-10.6) k/uL RBC (4.30-5.90) m/uL Hgb (13.0-17.5) gm/dL Hct (39.0-53.0) % RDW (11.5-15.5) % Neutrophils # (1.3-7.7) k/uL Lymphocytes # (1.0-4.8) k/uL Monocytes # (0-1.0) k/uL ABG pCO2 (35-45) mmHg ABG pO2 (83-108) mmHg ABG HCO3 (21-25) mmol/L ABG O2 Saturation (94-97) % Sodium (137-145) mmol/L Chloride 94 L (96-109) mmol/L Carbon Dioxide 17.5 L (21.6-31.8) mmol/L Anion Gap 23.50 H (4.00-12.00) mmol/L BUN 98.0 H (9.0-27.0) mg/dL Creatinine 7.1 H* (0.6-1.5) mg/dL Est GFR (CKD-EPI)AfAm 8.8 L (60.0-200.0) Est GFR (CKD-EPI)NonAf 7.6 L (60.0-200.0) Glucose 174 H (70-110) mg/dL POC Glucose (mg/dL) (75-99) mg/dL Hemoglobin A1c 10.1 H (4.0-6.0) % Phosphorus 8.6 H (2.4-5.1) mg/dL Total Bilirubin (0.2-1.3) mg/dL AST (17-59) U/L ALT (4-49) U/L Alkaline Phosphatase 145 H (41-126) U/L Troponin I (0.000-0.034) ng/mL Total Protein 5.9 L (6.2-8.2) g/dL Albumin (3.5-5.0) g/dL 04/11/20 04/11/20 04/11/20 Range/Units 11:16 11:29 13:56 WBC 20.9 H (3.8-10.6) k/uL RBC 3.45 L (4.30-5.90) m/uL Hgb 9.3 L (13.0-17.5) gm/dL Hct 30.1 L (39.0-53.0) % RDW 15.8 H (11.5-15.5) % Neutrophils # 18.7 H (1.3-7.7) k/uL Lymphocytes # 0.4 L (1.0-4.8) k/uL Monocytes # 1.3 H (0-1.0) k/uL ABG pCO2 (35-45) mmHg ABG pO2 (83-108) mmHg ABG HCO3 (21-25) mmol/L ABG O2 Saturation (94-97) % Sodium (137-145) mmol/L Chloride (96-109) mmol/L Carbon Dioxide (21.6-31.8) mmol/L Anion Gap (4.00-12.00) mmol/L BUN (9.0-27.0) mg/dL Creatinine (0.6-1.5) mg/dL Est GFR (CKD-EPI)AfAm (60.0-200.0) Est GFR (CKD-EPI)NonAf (60.0-200.0) Glucose (70-110) mg/dL POC Glucose (mg/dL) 170 H 154 H (75-99) mg/dL Hemoglobin A1c (4.0-6.0) % Phosphorus (2.4-5.1) mg/dL Total Bilirubin (0.2-1.3) mg/dL AST (17-59) U/L ALT (4-49) U/L Alkaline Phosphatase (41-126) U/L Troponin I (0.000-0.034) ng/mL Total Protein (6.2-8.2) g/dL Albumin (3.5-5.0) g/dL 04/11/20 04/11/20 04/11/20 Range/Units 14:03 14:13 14:32 WBC 20.2 H (3.8-10.6) k/uL RBC 3.55 L (4.30-5.90) m/uL Hgb 9.9 L (13.0-17.5) gm/dL Hct 30.2 L (39.0-53.0) % RDW (11.5-15.5) % Neutrophils # 17.9 H (1.3-7.7) k/uL Lymphocytes # 0.8 L (1.0-4.8) k/uL Monocytes # (0-1.0) k/uL ABG pCO2 (35-45) mmHg ABG pO2 (83-108) mmHg ABG HCO3 (21-25) mmol/L ABG O2 Saturation (94-97) % Sodium 133 L (137-145) mmol/L Chloride 97 L (96-109) mmol/L Carbon Dioxide 17 L (21.6-31.8) mmol/L Anion Gap (4.00-12.00) mmol/L BUN 92 H (9.0-27.0) mg/dL Creatinine 7.67 H* (0.6-1.5) mg/dL Est GFR (CKD-EPI)AfAm (60.0-200.0) Est GFR (CKD-EPI)NonAf (60.0-200.0) Glucose 163 H (70-110) mg/dL POC Glucose (mg/dL) 184 H (75-99) mg/dL Hemoglobin A1c (4.0-6.0) % Phosphorus 10.3 H* (2.4-5.1) mg/dL Total Bilirubin 2.3 H (0.2-1.3) mg/dL AST 2029 H (17-59) U/L ALT 1290 H (4-49) U/L Alkaline Phosphatase 341 H (41-126) U/L Troponin I (0.000-0.034) ng/mL Total Protein 6.0 L (6.2-8.2) g/dL Albumin 3.1 L (3.5-5.0) g/dL 04/11/20 04/11/20 04/11/20 Range/Units 14:32 15:38 16:01 WBC (3.8-10.6) k/uL RBC (4.30-5.90) m/uL Hgb (13.0-17.5) gm/dL Hct (39.0-53.0) % RDW (11.5-15.5) % Neutrophils # (1.3-7.7) k/uL Lymphocytes # (1.0-4.8) k/uL Monocytes # (0-1.0) k/uL ABG pCO2 33 L (35-45) mmHg ABG pO2 53 L* (83-108) mmHg ABG HCO3 20 L (21-25) mmol/L ABG O2 Saturation 83.5 L (94-97) % Sodium (137-145) mmol/L Chloride (96-109) mmol/L Carbon Dioxide (21.6-31.8) mmol/L Anion Gap (4.00-12.00) mmol/L BUN (9.0-27.0) mg/dL Creatinine (0.6-1.5) mg/dL Est GFR (CKD-EPI)AfAm (60.0-200.0) Est GFR (CKD-EPI)NonAf (60.0-200.0) Glucose (70-110) mg/dL POC Glucose (mg/dL) 183 H (75-99) mg/dL Hemoglobin A1c (4.0-6.0) % Phosphorus (2.4-5.1) mg/dL Total Bilirubin (0.2-1.3) mg/dL AST (17-59) U/L ALT (4-49) U/L Alkaline Phosphatase (41-126) U/L Troponin I 0.118 H* (0.000-0.034) ng/mL Total Protein (6.2-8.2) g/dL Albumin (3.5-5.0) g/dL 04/11/20 04/12/20 04/12/20 Range/Units 21:08 04:24 04:24 WBC 18.4 H (3.8-10.6) k/uL RBC 3.54 L (4.30-5.90) m/uL Hgb 9.9 L (13.0-17.5) gm/dL Hct 30.8 L (39.0-53.0) % RDW 15.6 H (11.5-15.5) % Neutrophils # 16.1 H (1.3-7.7) k/uL Lymphocytes # 0.8 L (1.0-4.8) k/uL Monocytes # 1.1 H (0-1.0) k/uL ABG pCO2 (35-45) mmHg ABG pO2 (83-108) mmHg ABG HCO3 (21-25) mmol/L ABG O2 Saturation (94-97) % Sodium 134 L (137-145) mmol/L Chloride 97 L (96-109) mmol/L Carbon Dioxide 19 L (21.6-31.8) mmol/L Anion Gap (4.00-12.00) mmol/L BUN 104 H* (9.0-27.0) mg/dL Creatinine 8.15 H* (0.6-1.5) mg/dL Est GFR (CKD-EPI)AfAm (60.0-200.0) Est GFR (CKD-EPI)NonAf (60.0-200.0) Glucose 154 H (70-110) mg/dL POC Glucose (mg/dL) 173 H (75-99) mg/dL Hemoglobin A1c (4.0-6.0) % Phosphorus 10.7 H* (2.4-5.1) mg/dL Total Bilirubin 1.7 H (0.2-1.3) mg/dL AST 2932 H (17-59) U/L ALT 2723 H (4-49) U/L Alkaline Phosphatase 449 H (41-126) U/L Troponin I (0.000-0.034) ng/mL Total Protein 6.1 L (6.2-8.2) g/dL Albumin 3.1 L (3.5-5.0) g/dL 04/12/20 04/12/20 Range/Units 06:45 09:14 WBC (3.8-10.6) k/uL RBC (4.30-5.90) m/uL Hgb (13.0-17.5) gm/dL Hct (39.0-53.0) % RDW (11.5-15.5) % Neutrophils # (1.3-7.7) k/uL Lymphocytes # (1.0-4.8) k/uL Monocytes # (0-1.0) k/uL ABG pCO2 (35-45) mmHg ABG pO2 (83-108) mmHg ABG HCO3 (21-25) mmol/L ABG O2 Saturation (94-97) % Sodium (137-145) mmol/L Chloride (96-109) mmol/L Carbon Dioxide (21.6-31.8) mmol/L Anion Gap (4.00-12.00) mmol/L BUN (9.0-27.0) mg/dL Creatinine (0.6-1.5) mg/dL Est GFR (CKD-EPI)AfAm (60.0-200.0) Est GFR (CKD-EPI)NonAf (60.0-200.0) Glucose (70-110) mg/dL POC Glucose (mg/dL) 150 H 138 H (75-99) mg/dL Hemoglobin A1c (4.0-6.0) % Phosphorus (2.4-5.1) mg/dL Total Bilirubin (0.2-1.3) mg/dL AST (17-59) U/L ALT (4-49) U/L Alkaline Phosphatase (41-126) U/L Troponin I (0.000-0.034) ng/mL Total Protein (6.2-8.2) g/dL Albumin (3.5-5.0) g/dL Microbiology - Last 24 Hours (Table) 04/11/20 07:22 Urine Culture - Preliminary Urine,Voided Assessment and Plan Plan: Assessment: 1. End-stage renal disease maintained on hemodialysis on Wednesday schedule. Has a right chest permacath. 2. Status post fall. No fractures noted. 3. A. fib. Heart rate currently stable. Maintained on amiodarone, Lopressor and anticoagulation. 4. Diabetes mellitus. 5. Chronic kidney disease mineral bone disease maintained on PhosLo. 6. Metabolic acidosis secondary to chronic kidney disease. Expect improvement post dialysis. 7. Hypertension with chronic kidney disease. Currently stable. 8. Status post cardiac arrest April 11. 9. Shock liver due to cardiac arrest. 10. History of coronary artery disease. Plan: Currently seen while undergoing hemodialysis. He is being dialyzed with minimal ultrafiltration and low blood and dialysate flows. Cardiology following. Hold hydralazine and Cozaar for systolic blood pressure less than 125. Currently off vasopressors.
--- NOTE | 2020-04-12 10:27 | P.CNNES ---
History of Present Illness Consult date: 04/12/20 Requesting physician: Mono Lima Reason for Consult: altered mental status History of Present Illness: This is a 59-year-old gentleman with medical history of atrial fibrillation, coronary artery disease status post stents, heart failure, diabetes mellitus, peripheral neuropathy, hard of hearing, hyperlipidemia, hypertension, end-stage renal disease on hemodialysis Wednesday and Wednesday, legally blind on of t he both eyes, restless leg syndrome that presented to the emergency department on 04/10/2020 of multiple falls at home. Neurology team is consulted for altered mental status. Most of the history is obtained from medical records and patient's nurse. It appears that the patient had a fall in the bathroom and his legs gave out. He denied of loss of consciousness or dizziness. Patient missed the last 2 days of dialysis and his last dialysis was 1 week ago. In the ER the patient's initial blood pressure was 202/94. Then on 04/11/2020 in the hospital at around 2:30, the patient had a cardiac a rrest lasting less than 2 minutes while he was hooked to the dialysis. Brief CPR was done but no need for epinephrine. His blood pressure was 90/50 with pulse ox of 82%. It is reported that EKGs revealed no signs of acute ischemia. Then he went into A. fib. Then yesterday in the later afternoon, the patient went into respiratory arrest without loosing pulse and unsure of duration per the patient. His blood pressure on 04/11/20 at around 16:05 was 76/35 and was started n Levophed. He did not require to be intubated. He is on BiPAP machine. Per the patient nurse his mentation seem appropriate this morning. Upon seeing him the patient did acknowledge he has peripheral neuropathy for last 3 years and his diabetes is uncontrolled and has missed his dialysis. He was not tell me exact details of his history since felt tired. It seems the patient is on home medications tramadol 50 mg a tablet 3 times a day when necessary, on Ativan 2 mg 3 times a day when necessary, gabapentin 300 mg 1 tablet twice a day, Plavix 75 mg daily as well as [place] 10 1 mg every 4 hours Patient is currently on in the hospital of Ativan 0.5 mg 1 tablet 3 times a day when necessary. Patient is also on [place] 10 1 tablet every 4 hours as needed. On Dilaudid 0.5 mg 1 tablet stats on 04/10/2020 as well as received another 0.5 mg of Dilaudid on 04/10/2020 2 hours apart from each other. For peripheral neuropathy patient is on gabapentin the 100 mg a tablet 3 times a day. At home patient is on on Eliquis 2.5. Workup in the hospital consisted of: On initial presentation patient's blood pressure is 202/94, heart rate of 91, respiratory of 19, temperature of 99 Fahrenheit oral and pulse ox of 95% room air. Since the hospital stay the patient's blood pressure has gone down to 160s to 170s over 80s to 90s. CT of the head is reported as age-related atrophic and chronic small vessel ischemic change without acute intracranial process seen at this time. CT cervical spine is reported as no evidence for acute fracture or subluxation of the cervical spine. Initial EKG on presentation as normal sinus rhythm. Possible left atrial enlargement that. Prolonged QT the area abnormal EKG. On initial presentation the patient 1 blood cell is 20.2 and it's predominantly neutrophilic. The hemoglobin is 10.7 on repeated was 9.3. Initial sodium is 133. Initial creatinine on presentation is 7.56 and the BM was 86 next day and creatinine is 7.1. Initial glucose is 237. AST of 20 and the ALT of 27. Hemoglobin A1c is 10.1 which is uncontrolled. Calcium is 9.2. Urinalysis shows the urine appears cloudy, nitrate was negative, looks as shows small, urine white blood cell is 53. Solis virus PCR is not detected. Review of Systems Review of system could not be entirely assessed because of the patient cooperation but the prior positive and negative as per HPI. Past Medical History Past Medical History: Atrial Fibrillation, Coronary Artery Disease (CAD), Heart Failure, Diabetes Mellitus, Dialysis, Eye Disorder, GERD/Reflux, Hearing Disorder / Deafness, Hyperlipidemia, Hypertension, Myocardial Infarction (AL), Renal Disease, Syncope Additional Past Medical History / Comment(s): IDDM type II, neuropathy bilateral hands/feet, ESRD with hemodialysis on //, He skipped this wednesday and wednesday the 04/08 and 04/10 due to illness, chronic anemia, LVH, Afib with RVR, MIs, chronic CHF, R eye blindness, L eye legally blind, RLS, pt unsure if he has gout, vertigo at times, balance issues at times, stomach ulcer at age 17yrs, sinus problems, very L[place] TRIBE R ear. Last Myocardial Infarction Date:: 08/09/18 History of Any Multi-Drug Resistant Organisms: None Reported Past Surgical History: Heart Catheterization, Heart Catheterization With Stent Additional Past Surgical History / Comment(s): TTT, PD catheter placement/since removed, 2016 L arm fistula, fistula gram with balloon for stenosis, L eye vitrectomy, thyroid needle aspiration-negative, L leg cyst, colonoscopy with benign polypectomy. port placed in chest Right side. Past Anesthesia/Blood Transfusion Reactions: Postoperative Nausea & Vomiting (PONV) Date of Last Stent Placement:: 03-03-18 Past Psychological History: Anxiety, Depression Additional Psychological History / Comment(s): Pt resides with his spouse, AND SON. He is legally blind L eye and blind in R eye. He is very [place] in R ear. He has a cane and walker which he uses prn. His spouse and son drive. Pt uses glasses and a magnifier to read. He has depression which he states is constantly present but not increased. He denies thoughts/plans of suicide. Smoking Status: Former smoker Past Alcohol Use History: None Reported Additional Past Alcohol Use History / Comment(s): Pt started smoking in 1972 and quit in 1995. Past Drug Use History: None Reported - Past Family History Father Family Medical History: Cancer, Coronary Artery Disease (CAD), Hyperlipidemia Additional Family Medical History / Comment(s): Lung/BRAIN CANCER Mother Family Medical History: Diabetes Mellitus, Deep Vein Thrombosis (DVT), Osteoarthritis (OA) Additional Family Medical History / Comment(s): DJD Sister(s) Family Medical History: Diabetes Mellitus Additional Family Medical History / Comment(s): Patient has one sister with diabetes mellitus type 2, SLE, MS. Brother(s) Family Medical History: Diabetes Mellitus Additional Family Medical History / Comment(s): Patient has 4 kids no major medical problems. Daughter(s) Family Medical History: No Reported History Additional Family Medical History / Comment(s): Patient has 2 daughters no major medical problems. Son(s) Family Medical History: No Reported History Additional Family Medical History / Comment(s): Patient has 2 sons no major medical problems. Medications and Allergies Home Medications Medication Instructions Recorded Confirmed Type Clopidogrel [Plavix] 75 mg PO DAILY #30 tab 03/05/18 04/10/20 Rx Insulin Glargine,Hum.rec.anlog 33 unit SQ DAILY 03/24/18 04/10/20 History [Basaglar Kwikpen U-100] Calcium Acetate [PhosLo] 1,334 mg PO AC-TID PRN 08/05/18 04/10/20 History Insulin Aspart [NovoLOG Flexpen] See Protocol SQ ACHS 08/05/18 04/10/20 History LORazepam [Ativan] 2 mg PO TID PRN 08/05/18 04/10/20 History Amiodarone [Cordarone] 100 mg PO DAILY 04/13/19 04/10/20 History Furosemide [Lasix] 80 mg PO DAILY 04/13/19 04/10/20 History Metoprolol Tartrate [Lopressor] 25 mg PO DAILY 04/13/19 04/10/20 History Triamcinolone 0.1% Ointment 1 applic TOPICAL BID PRN 04/13/19 04/10/20 History [Kenalog] metOLazone [Zaroxolyn] 5 mg PO DAILY 04/13/19 04/10/20 History Isosorbide Mononitrate ER [Imdur] 30 mg PO DAILY #30 tab.er.24h 07/22/19 04/10/20 Rx Apixaban [Eliquis] 2.5 mg PO BID 02/06/20 04/10/20 History Pioglitazone [Actos] 15 mg PO DAILY 02/06/20 04/10/20 History hydrALAZINE HCL [Apresoline] 50 mg PO TID 02/06/20 04/10/20 History hydrOXYzine pamoate [Vistaril] 100 mg PO TID PRN 02/06/20 04/10/20 History traMADol HCL [Ultram] 50 mg PO TID PRN 02/06/20 04/10/20 History Allopurinol [Zyloprim] 100 mg PO DAILY 02/17/20 04/10/20 History Gabapentin 300 mg PO BID 02/17/20 04/10/20 History Losartan [Cozaar] 50 mg PO HS 02/17/20 04/10/20 History Metoprolol Tartrate [Lopressor] 12.5 mg PO HS 02/17/20 04/10/20 History Nitroglycerin Sl Tabs [Nitrostat] 0.4 mg SL Q5M PRN 02/17/20 04/10/20 History Pantoprazole [Protonix] 40 mg PO DAILY 02/17/20 04/10/20 History HYDROcodone/APAP 10-325MG [[place] 1 tab PO Q4HR PRN 3 Days #18 tab 02/26/20 04/10/20 Rx 10-325] Allergies Allergy/AdvReac Type Severity Reaction Status Date / Time bumetanide [From Bumex] Allergy Hallucinati Verified 04/10/20 14:16 ons Penicillins Allergy Anaphylaxis Verified 04/10/20 14:16 spironolactone Allergy Hallucinati Verified 04/10/20 14:16 ons morphine AdvReac Confusion Verified 04/10/20 14:16 rivaroxaban [From Xarelto] AdvReac Bloody Nose Verified 04/10/20 14:16 All antibiotics except Keflex Allergy Unknown Uncoded 04/10/20 14:16 Childhood Physical Examination - Vital Signs Vital Signs: Vital Signs Temp Pulse Pulse Resp BP BP Pulse Ox 04/11/20 07:17 98.6 F 75 17 114/62 96 04/11/20 05:10 98.4 F 79 17 134/65 94 L 04/10/20 23:40 14 04/10/20 22:34 98.5 F 85 14 196/85 93 L 04/10/20 20:50 98.9 F 82 18 172/90 97 04/10/20 18:17 76 18 162/88 98 04/10/20 17:11 71 18 169/86 98 04/10/20 15:51 89 18 195/95 93 L Intake and Output 04/10/20 04/11/20 04/11/20 22:59 06:59 14:59 Output Total 600 Balance -600 Output: Urine 600 Other: Voiding Method Urinal Weight 95.254 kg GENERAL: The patient is morbid obese lying in bed and is not in acute distress. CHEST: The heart rate is regular rate rhythm. No murmurs to auscultation. LUNG: Clear to auscultation bilaterally no wheezing noted throughout. Not labored breathing. On BiPAP machine. ABDOMEN/GI: Bowel sounds present in all 4 quadrants. No tenderness to palpation throughout. NEUROLOGICAL: Higher mental function: The patient is drowsy but awakeable to voice, oriented to self, place and time. Patient is following commands. No aphasia and no neglect. Cranial nerves: The pupils are round, equal and reactive to light. Patient is legally blind out of both eyes. Extraocular movement is intact no nystagmus is noted. Facial sensation is normal to touch throughout. The facial strength is normal throughout. Hearing is moderately hard of hearing bilaterally to hand rub. No dysarthria is noted. Motor: Gait is deferred. The strength is 5 over 5 throughout bilateral upper extremities while lower extremities there was lack of cooperation but was able to move antigravity bilaterally. Normal tone and bulk. Cerebellum: Unable to assess because of cooperation. Sensation: Sensation is normal to touch throughout. Reflexes (right/left): 2+ throughout bilateral upper extremities while 1+ in lower extremities. Plantars are downgoing bilaterally. Results - Laboratory Findings CBC and BMP: 04/12/20 04:24 04/12/20 04:24 Abnormal Lab Findings: Abnormal Labs 04/10/20 04/10/20 04/11/20 14:26 14:26 05:42 WBC 20.2 H RBC 3.78 L Hgb 10.7 L Hct 32.4 L RDW 15.6 H Neutrophils # 18.1 H Lymphocytes # 0.4 L Monocytes # 1.2 H Sodium 133 L Chloride 92 L 94 L Carbon Dioxide 21 L 17.5 L Anion Gap 23.50 H BUN 86 H 98.0 H Creatinine 7.56 H* 7.1 H* Est GFR (CKD-EPI)AfAm 8.8 L Est GFR (CKD-EPI)NonAf 7.6 L Glucose 237 H 174 H POC Glucose (mg/dL) Hemoglobin A1c Phosphorus Alkaline Phosphatase 151 H 145 H Total Protein 5.9 L Urine Protein Urine Glucose (UA) Urine Ketones Urine Blood Ur Leukocyte Esterase Urine RBC Urine WBC Urine WBC Clumps Amorphous Sediment Urine Bacteria Urine Mucus 04/11/20 04/11/20 04/11/20 05:42 05:42 06:51 WBC RBC Hgb Hct RDW Neutrophils # Lymphocytes # Monocytes # Sodium Chloride Carbon Dioxide Anion Gap BUN Creatinine Est GFR (CKD-EPI)AfAm Est GFR (CKD-EPI)NonAf Glucose POC Glucose (mg/dL) 210 H Hemoglobin A1c 10.1 H Phosphorus 8.6 H Alkaline Phosphatase Total Protein Urine Protein Urine Glucose (UA) Urine Ketones Urine Blood Ur Leukocyte Esterase Urine RBC Urine WBC Urine WBC Clumps Amorphous Sediment Urine Bacteria Urine Mucus 04/11/20 04/11/20 04/11/20 07:22 11:16 11:29 WBC 20.9 H RBC 3.45 L Hgb 9.3 L Hct 30.1 L RDW 15.8 H Neutrophils # 18.7 H Lymphocytes # 0.4 L Monocytes # 1.3 H Sodium Chloride Carbon Dioxide Anion Gap BUN Creatinine Est GFR (CKD-EPI)AfAm Est GFR (CKD-EPI)NonAf Glucose POC Glucose (mg/dL) 170 H Hemoglobin A1c Phosphorus Alkaline Phosphatase Total Protein Urine Protein 3+ H Urine Glucose (UA) 3+ H Urine Ketones Trace H Urine Blood Moderate H Ur Leukocyte Esterase Small H Urine RBC 35 H Urine WBC 53 H Urine WBC Clumps Occasional H Amorphous Sediment Moderate H Urine Bacteria Rare H Urine Mucus Few H 04/11/20 04/11/20 04/11/20 13:56 14:03 14:13 WBC 20.2 H RBC 3.55 L Hgb 9.9 L Hct 30.2 L RDW Neutrophils # 17.9 H Lymphocytes # 0.8 L Monocytes # Sodium Chloride Carbon Dioxide Anion Gap BUN Creatinine Est GFR (CKD-EPI)AfAm Est GFR (CKD-EPI)NonAf Glucose POC Glucose (mg/dL) 154 H 184 H Hemoglobin A1c Phosphorus Alkaline Phosphatase Total Protein Urine Protein Urine Glucose (UA) Urine Ketones Urine Blood Ur Leukocyte Esterase Urine RBC Urine WBC Urine WBC Clumps Amorphous Sediment Urine Bacteria Urine Mucus Assessment and Plan Assessment: This is a 59-year-old gentleman with multiple medical problem that presented to the emergency department on 04/10/2020 for multiple falls at home. It is reported that his legs gave out but did not lose consciousness. Patient has missed his last two sessions of dialysis. Patient had an episode of cardiac arrest on 04/11/2020 lasting less than 2 minutes then later in later afternoon had respiratory arrest and unsure of duration with hypovolemia (76/35). Neurology is being consulted for altered mental status Altered mental status: Seems predominantly toxic-metabolic encephalopathy (missed dialysis), uncontrolled sugar and due to uncontrolled hypertension (likely from missed dialysis). With recent cardiac arrest and respiratory arrest with hypovolemia. Falls likely due to multifactorial (missed dialysis causing generalized fatigue, uncontrolled diabetes causing peripheral neuropathy) Cardiac arrest on 04/11/2020 lasting less than 2 minutes Respiratory failure with hypovolemia Uncontrolled the diabetes mellitus Atrial fibrillation History of coronary artery disease status post stents Heart failure Peripheral neuropathy Deafness Legally blind Hyperlipidemia Hypertension End-stage renal disease on dialysis Plan: An EEG is not warranted at this time since his altered mental status does not seem due to seizure. CT of the head is reported as age-related atrophic and chronic small vessel ischemic change without acute intracranial process seen at this time. CT cervical spine is reported as no evidence for acute fracture or subluxation of the cervical spine. AST of 20 and the ALT of 27. Hemoglobin A1c is 10.1 which is uncontrolled. Ammonia level is less than 9. Calcium is 9.2. I ordered TSH, vitamin B12 and folate. Once the patient is stable recommend getting orthostatic vitals. Physical therapy and occupation therapy are consulted. Please avoid sedation or narcotic/opiates that would affect the patient's mentation. Also please avoid any further episodes of hypovolemia. We'll defer the management to the primary/ICU team. Patient was counseled on the having his the diabetes under control since peripheral neuropathy can have a major role in falls. He was also notified to avoid missing his dialysis. Will defer the rest of medical management to Primary and ICU team. The plan is discussed with the patient's nurse. Thank you for the consultation. Dru Nixon MD Neuro-Hospitalist Time with Patient: Greater than 30
--- NOTE | 2020-04-12 10:35 | CDI ---
Documentation Clarification Form Date: 04/12/2020 10:31:12 AM From: Citlalli Montero RN, CCDS Admit Date: 04/10/2020 06:10:00 PM Patient Name: Joel Gillette Visit Number: [id number] ATTENTION: The Clinical Documentation Specialists (CDI) and [facility] Coding Staff appreciate your assistance in clarifying documentation. Please respond to the clarification below the line at the bottom and electronically sign. The CDI & [facility] Coding staff will review the response and follow-up if needed. Please note: Queries are made part of the Legal Health Record. If you have any questions, please contact the author of this message via ITS. Dr. Cornelius High The patient presented on room air and is noted to have increasing oxygen needs. Please provide clinical significance. History/Risk Factors: Tobacco use: former smoker Home oxygen: none documented Hex: ESRD noncompliant with HD, Atrial Fib, CAD, CHF, DM2, LA, LVH, ischemic cardiomyopathy, vertigo Current: Sepsis with UTI and metabolic encephalopathy, syncope, chronic anemia, cardiac arrest with loss of pulse and CPR Clinical Indicators: 04/10 1351 Admission Vital signs: Temp 99, HR 91, RR 19, B/P 202/94, Spo2 95% RA 04/11 1605 V/S: HR 63, RR 10, B/P 76/35, Spo2 96% on 60% BiPap 04/12 0400 V/S: Temp 97.4, HR 61, RR 13, B/P 137/70, Spo2 98% on 50% BiPap 04/11 Pulmonary Consult: Lung/Breathing assessment: "Chest: Symmetrical chest expansion. Diminished breath sounds at the bases no rhonchi and no wheezes." 04/11 1601 ABG/CBG: pH 7.39 pO2 53 pCO2 33 Lactate -5.2 O2 sat 83.5% on 70% FIO2 Treatment: Breathing TX: none ordered Continuous Pulse ox per ICU protocol O2: 2L NC increased to 100% NRB, increased to 60% BiPap weaning FIO2 In your professional opinion, can you please clarify if these findings signify one of the following conditions? Acute Respiratory Failure Acute on Chronic Respiratory Failure Chronic Respiratory Failure Acute Respiratory Distress Acute Respiratory Insufficiency Other Diagnosis, please specify Unable to determine Specificity: If known, further specify (if known): With hypercapnia? (pCO2 >50 and pH <7.35) With hypoxia? (pO2 <60 mm Hg or SpO2 <91% on room air) (Last Query Form Revision: October 2018) MTDD
[2020-04-12] MEDS ORDERED: VANCOMYCIN IV PER PHARMACY 1 EACH MISC MISCELLANE PRN (10:41)
--- NOTE | 2020-04-12 11:00 | CDI ---
Documentation Clarification Form Date: 04/12/2020 10:46:54 AM From: Citlalli Montero RN, CCDS Admit Date: 04/10/2020 06:10:00 PM Patient Name: Joel Gillette Visit Number: [id number] ATTENTION: The Clinical Documentation Specialists (CDI) and [facility] Coding Staff appreciate your assistance in clarifying documentation. Please respond to the clarification below the line at the bottom and electronically sign. The CDI & [facility] Coding staff will review the response and follow-up if needed. Please note: Queries are made part of the Legal Health Record. If you have any questions, please contact the author of this message via ITS. Dr. Mono Lima Chronic CHF is documented in the PMH and requires further specificity. History/Risk Factors: Chronic CHF, ischemic cardiomyopathy, paroxysmal atrial fibrillation, CAD with stents, CO, ESRD on HD, HTN, HLD, DM2, Syncope Clinical Indicators: 04/10 1351 VS/Pulse OX: Temp 99, Hr 91, RR 19, B/P 202/94, Spo2 95% BNP: not done 02/19/20 Echocardiogram Results: EF 60-65%, moderate concentric LVH, lipomatous hypertrophy of atrial septum, mild pulmonary HTN. 04/11 Chest X Ray: "Mild cardiomegaly with pulmonary vascular congestion. Right- sided hemodialysis catheter." Treatment: Cordarone 100mg PO QD Apresoline 50 mg PO TID 04/10 Labetalol 20 mg IVP x 1 Cozaar 50 mg PO Q HS Lopressor 25 mg Po Q HS 04/10 1L 0.9% NS IVF Bolus followed by 75 cc/hr. 04/11 1L 0.9% NS IVF Bolus In your professional opinion, can you please clarify the acuity and type of CHF if known? Systolic Heart Failure: Acute Chronic Acute on Chronic Diastolic Heart Failure: Acute Chronic Acute on Chronic Systolic & Diastolic Heart Failure: Acute Chronic Acute on Chronic Heart Failure Unable to Determine Other, please specify (Last Revision: May 2017) chronic diastolic heart failure MTDD
[2020-04-12] MEDS ORDERED: VANCOMYCIN 1,500 MG in SODIUM CHLORIDE 0.9% 250 ML IVPB ONE (11:15)
--- NOTE | 2020-04-12 11:41 | ECHOF ---
Referral Reason:syncope MEASUREMENTS -------- HEIGHT: 170.2 cm WEIGHT: 94.3 kg BP: RVIDd: 3.3 cm (< 3.3) IVSd: 1.3 cm (0.6 - 1.1) LVIDd: 3.8 cm (3.9 - 5.3) LVPWd: 1.5 cm (0.6 - 1.1) IVSs: 1.6 cm LVIDs: 2.4 cm LVPWs: 2.0 cm Ao Diam: 2.5 cm (2.0 - 3.7) AV Cusp: 1.6 cm (1.5 - 2.6) LA Diam: 3.2 cm (2.7 - 3.8) MV EXCURSION: 22.213 mm (> 18.000) MV EF SLOPE: 75 mm/s (70 - 150) EPSS: 0.6 cm MV E Bryn: 0.88 m/s MV DecT: 218 ms MV A Bryn: 0.76 m/s MV E/A Ratio: 1.16 AV maxP.17 mmHg AV meanP.14 mmHg RAP: 5.00 mmHg RVSP: 32.12 mmHg FINDINGS -------- This was a technically adequate study. The left ventricular size is normal. There is moderate concentric left ventricular hypertrophy. O verall left ventricular systolic function is normal with, an EF between 55 - 60 %. The right ventricle is mildly enlarged. The left atrial size is normal. The right atrial size is normal. Aortic valve is trileaflet and is mildly thickened. There is mild aortic valve sclerosis. Peak/me an gradient across the Aortic Valve is 16.17mmHg / 9.14mmHg. The mitral valve is normal. The mitral valve leaflets are mildly thickened. Mild mitral regurgita tion is present. The tricuspid valve appears structurally normal. Mild tricuspid regurgitation present. Right vent ricular systolic pressure is normal at < 35 mmHg. Trace/mild (physiologic) pulmonic regurgitation. The aortic root size is normal. IVC Not well visulized. There is no pericardial effusion. CONCLUSIONS -------- 1. The left ventricular size is normal. 2. There is moderate concentric left ventricular hypertrophy. 3. Overall left ventricular systolic function is normal with, an EF between 55 - 60 %. 4. The right ventricle is mildly enlarged. 5. Aortic valve is trileaflet and is mildly thickened. 6. There is mild aortic valve sclerosis. 7. Peak/mean gradient across the Aortic Valve is 16.17mmHg / 9.14mmHg. 8. The mitral valve leaflets are mildly thickened. 9. Mild mitral regurgitation is present. 10. Mild tricuspid regurgitation present. 11. Trace/mild (physiologic) pulmonic regurgitation. 12. There is no pericardial effusion. VIROLOGY TEACHER: Orquidea Colvin RDCS
[2020-04-12 11:57] LABS: Glucose,Whole Blood 135 mg/dL (75-99)
[2020-04-12] MEDS: hydrALAZINE HCL 50 MG TAB PO SCH ×2 (12:01→16:03)
--- NOTE | 2020-04-12 12:58 | P.PN ---
Subjective Progress Note Date: 04/12/20 Principal diagnosis: Cardiac arrest This is a 59-year-old white male admitted on 04/11/2020, admitted mostly with a diagnosis of sepsis and urinary tract infection, patient is known to have history of multiple medical problems, and has been falling recently quite frequently, is also known to have history of end-stage renal disease, on hemodialysis for the last 3 years, and he has a dialysis catheter in his right subclavian placed apparently a few weeks ago. He did have previous history of left AV fistula which has been nonfunctional recently and that is why he had a subclavian dialysis catheter. Patient is primarily a patient with Dr. Mckeon, he receives dialysis is normally on Wednesday and Wednesday, he had previous history of coronary artery disease and previous angioplasty, stent placement. His other medical problems include chronic atrial fibrillation diabetes dyslipidemia hypertension, and diabetic neuropathy. This time the patient was admitted mostly with mental status change, multiple falls at home, apparently had a recent fall in the bathroom and had trauma CT of the head was unremarkable on admission. Patient missed 2 dialysis appointments and in the ER his blood pressure was significantly elevated at 202/94. He had a low-grade fever, he had a relatively normal electrolytes, blood sugar was 237, and his urinalysis showed pyuria and bacteriuria. Hence patient was admitted mostly with the impression of UTI and sepsis. At 2:30 this afternoon, patient was receiving dialysis, as soon as dialysis was started, patient had a sudden epis ode of unresponsiveness, he was pulseless according to the team responded to him. Patient had less than 2 minutes of CPR, that there was return of spontaneous circulation, and return of pulse. No monitor was noted at the time, but by the time he woke up, patient was in atrial fibrillation with fairly controlled rhythm. Patient was transferred to the ICU, placed on a nonrebreather mask hemodynamically stable, I was asked to see him on consultation since he was transferred to the intensive care unit. Seen in the ICU, patient is on a nonrebreather mask, which I will transition to a high flow nasal cannula, patient is hemodynamically stable, he was in normal sinus rhythm, and he is a bit lethargic, but arousable, and follows all instructions. Labs from today were all reviewed. Again noted to have leukocytosis with WBC count 20.2, hemoglobin is 9.9. Troponin is 0.118, and his urine did show evidence of bacteriuria and pyuria. Reevaluated today on 04/12/2019, patient remains in the ICU, he had another episode of near syncope yesterday, patient was noted to become hypotensive upon connection to the dialysis machine. Patient had to be Ambu bag, did not require CPR this time, he had a pulse, but he was hypotensive. I saw the patient shortly after that episode, and his blood pressure was marginal. Recommended starting the patient on norepinephrine and recommended that we proceed with his hemodialysis. Patient did well overnight, did not have any further episodes, tolerated the hemodialysis well yesterday. Presently asymptomatic, patient has paroxysmal atrial fibrillation, but presently in sinus rhythm. On BiPAP which I will discontinue and place on a nasal cannula, and it will be titrated accordingly. Patient is definitely more awake today, alert and oriented 3. Ho wever his blood cultures are positive for gram-positive cocci, final identification is not available, and his urine from 04/11 was positive for presumptive staph aureus. Hence we will recommend empirically starting the patient on vancomycin, and we will initiate infectious disease consultation on t his patient. Obviously the patient may have a positive urinary tract infection with gram-positive bacteremia. During my evaluation of this patient, he was undergoing dialysis, and he seems to be tolerating that quite well. His WBC count is 18.4 hemoglobin is 9.9. Electrolytes are normal bicarb is 19 BUN is 104 creatinine 8.15. Liver enzymes were noted to be elevated, his AST is 2932 and his ALT is 2723 with alkaline phosphatase of 449 could be related to hypoperfusion at the time when the patient had episodes of low blood pressure and at one point he had no pulse according to the team responded to his code. Chest x-ray showed evidence of mild interstitial edema, suspect diastolic conge stive heart failure or pulmonary edema secondary to his underlying chronic renal disease Objective - Vital Signs Vital signs: Vital Signs Temp 97.4 F L 04/12/20 04:00 Pulse 67 04/12/20 07:00 Resp 19 04/12/20 07:00 BP 156/71 04/12/20 07:00 Pulse Ox 95 04/12/20 07:00 Intake & Output 04/11/20 04/12/20 04/12/20 18:59 06:59 18:59 Intake Total 46.636 Output Total 0 15 Balance 0 31.636 Weight 94.4 kg 94.4 kg Intake: Intake, IV Titration 46.636 Amount Norepinephrine 4 mg In 46.636 Sodium Chloride 0.9% 250 ml @ 0.05 MCG/KG/MIN 18. 146 mls/hr IV [facility] Rx#:[id number] Output: Urine 0 15 Other: Voiding Method Indwelling Catheter Indwelling Catheter - Exam Physical Exam: Revealed 59-year-old white male obese, in no distress, remains on BiPAP, alert oriented 3. Head: Atraumatic, normocephalic. HEENT:[Neck is supple.] [No neck masses.] [No thyromegaly.] [No JVD.] Patient has a Mallampati class IV. Chest: Symmetrical chest expansion. Diminished breath sounds at the bases no rhonchi and no wheezes. Cardiac Exam: [Normal S1 and S2, no S3 gallop, no murmur.] Abdomen: The skull, [Soft, nontender, no megaly, no rebound, no guarding, normal bowel sounds.] Extremities: [No clubbing, no edema, no cyanosis.] AV fistula noted in left upper extremity. Right subclavian dialysis catheter noted. Neurological Exam: Alert and oriented 3, no gross focal neurologic deficits Psychia Neurological status improved significantly in the last 24 hours tric: Depressed mood, blunt affect, normal mental status examination Skin: No rashes. - Labs CBC & Chem 7: 04/12/20 04:24 04/12/20 04:24 Labs: Abnormal Lab Results - Last 24 Hours (Table) 04/11/20 04/11/20 04/11/20 Range/Units 05:42 05:42 13:56 WBC (3.8-10.6) k/uL RBC (4.30-5.90) m/uL Hgb (13.0-17.5) gm/dL Hct (39.0-53.0) % RDW (11.5-15.5) % Neutrophils # (1.3-7.7) k/uL Lymphocytes # (1.0-4.8) k/uL Monocytes # (0-1.0) k/uL ABG pCO2 (35-45) mmHg ABG pO2 (83-108) mmHg ABG HCO3 (21-25) mmol/L ABG O2 Saturation (94-97) % Sodium (137-145) mmol/L Chloride (98-107) mmol/L Carbon Dioxide (22-30) mmol/L BUN (9-20) mg/dL Creatinine (0.66-1.25) mg/dL Glucose (74-99) mg/dL POC Glucose (mg/dL) 154 H (75-99) mg/dL Hemoglobin A1c 10.1 H (4.0-6.0) % Phosphorus 8.6 H (2.4-5.1) mg/dL Total Bilirubin (0.2-1.3) mg/dL AST (17-59) U/L ALT (4-49) U/L Alkaline Phosphatase (38-126) U/L Troponin I (0.000-0.034) ng/mL Total Protein (6.3-8.2) g/dL Albumin (3.5-5.0) g/dL 04/11/20 04/11/20 04/11/20 Range/Units 14:03 14:13 14:32 WBC 20.2 H (3.8-10.6) k/uL RBC 3.55 L (4.30-5.90) m/uL Hgb 9.9 L (13.0-17.5) gm/dL Hct 30.2 L (39.0-53.0) % RDW (11.5-15.5) % Neutrophils # 17.9 H (1.3-7.7) k/uL Lymphocytes # 0.8 L (1.0-4.8) k/uL Monocytes # (0-1.0) k/uL ABG pCO2 (35-45) mmHg ABG pO2 (83-108) mmHg ABG HCO3 (21-25) mmol/L ABG O2 Saturation (94-97) % Sodium 133 L (137-145) mmol/L Chloride 97 L (98-107) mmol/L Carbon Dioxide 17 L (22-30) mmol/L BUN 92 H (9-20) mg/dL Creatinine 7.67 H* (0.66-1.25) mg/dL Glucose 163 H (74-99) mg/dL POC Glucose (mg/dL) 184 H (75-99) mg/dL Hemoglobin A1c (4.0-6.0) % Phosphorus 10.3 H* (2.4-5.1) mg/dL Total Bilirubin 2.3 H (0.2-1.3) mg/dL AST 2029 H (17-59) U/L ALT 1290 H (4-49) U/L Alkaline Phosphatase 341 H (38-126) U/L Troponin I (0.000-0.034) ng/mL Total Protein 6.0 L (6.3-8.2) g/dL Albumin 3.1 L (3.5-5.0) g/dL 04/11/20 04/11/20 04/11/20 Range/Units 14:32 15:38 16:01 WBC (3.8-10.6) k/uL RBC (4.30-5.90) m/uL Hgb (13.0-17.5) gm/dL Hct (39.0-53.0) % RDW (11.5-15.5) % Neutrophils # (1.3-7.7) k/uL Lymphocytes # (1.0-4.8) k/uL Monocytes # (0-1.0) k/uL ABG pCO2 33 L (35-45) mmHg ABG pO2 53 L* (83-108) mmHg ABG HCO3 20 L (21-25) mmol/L ABG O2 Saturation 83.5 L (94-97) % Sodium (137-145) mmol/L Chloride (98-107) mmol/L Carbon Dioxide (22-30) mmol/L BUN (9-20) mg/dL Creatinine (0.66-1.25) mg/dL Glucose (74-99) mg/dL POC Glucose (mg/dL) 183 H (75-99) mg/dL Hemoglobin A1c (4.0-6.0) % Phosphorus (2.4-5.1) mg/dL Total Bilirubin (0.2-1.3) mg/dL AST (17-59) U/L ALT (4-49) U/L Alkaline Phosphatase (38-126) U/L Troponin I 0.118 H* (0.000-0.034) ng/mL Total Protein (6.3-8.2) g/dL Albumin (3.5-5.0) g/dL 04/11/20 04/12/2004/12/21 Range/Units 21:08 04:24 04:24 WBC 18.4 H (3.8-10.6) k/uL RBC 3.54 L (4.30-5.90) m/uL Hgb 9.9 L (13.0-17.5) gm/dL Hct 30.8 L (39.0-53.0) % RDW 15.6 H (11.5-15.5) % Neutrophils # 16.1 H (1.3-7.7) k/uL Lymphocytes # 0.8 L (1.0-4.8) k/uL Monocytes # 1.1 H (0-1.0) k/uL ABG pCO2 (35-45) mmHg ABG pO2 (83-108) mmHg ABG HCO3 (21-25) mmol/L ABG O2 Saturation (94-97) % Sodium 134 L (137-145) mmol/L Chloride 97 L (98-107) mmol/L Carbon Dioxide 19 L (22-30) mmol/L BUN 104 H* (9-20) mg/dL Creatinine 8.15 H* (0.66-1.25) mg/dL Glucose 154 H (74-99) mg/dL POC Glucose (mg/dL) 173 H (75-99) mg/dL Hemoglobin A1c (4.0-6.0) % Phosphorus 10.7 H* (2.4-5.1) mg/dL Total Bilirubin 1.7 H (0.2-1.3) mg/dL AST 2932 H (17-59) U/L ALT 2723 H (4-49) U/L Alkaline Phosphatase 449 H (38-126) U/L Troponin I (0.000-0.034) ng/mL Total Protein 6.1 L (6.3-8.2) g/dL Albumin 3.1 L (3.5-5.0) g/dL 04/12/20 04/12/20 04/12/20 Range/Units 06:45 09:14 11:55 WBC (3.8-10.6) k/uL RBC (4.30-5.90) m/uL Hgb (13.0-17.5) gm/dL Hct (39.0-53.0) % RDW (11.5-15.5) % Neutrophils # (1.3-7.7) k/uL Lymphocytes # (1.0-4.8) k/uL Monocytes # (0-1.0) k/uL ABG pCO2 (35-45) mmHg ABG pO2 (83-108) mmHg ABG HCO3 (21-25) mmol/L ABG O2 Saturation (94-97) % Sodium (137-145) mmol/L Chloride (98-107) mmol/L Carbon Dioxide (22-30) mmol/L BUN (9-20) mg/dL Creatinine (0.66-1.25) mg/dL Glucose (74-99) mg/dL POC Glucose (mg/dL) 150 H 138 H 135 H (75-99) mg/dL Hemoglobin A1c (4.0-6.0) % Phosphorus (2.4-5.1) mg/dL Total Bilirubin (0.2-1.3) mg/dL AST (17-59) U/L ALT (4-49) U/L Alkaline Phosphatase (38-126) U/L Troponin I (0.000-0.034) ng/mL Total Protein (6.3-8.2) g/dL Albumin (3.5-5.0) g/dL Microbiology - Last 24 Hours (Table) 04/11/20 07:22 Urine Culture - Preliminary Urine,Voided Presumptive Staph aureus 04/11/20 15:12 Blood Culture Gram Stain - Preliminary Blood 04/11/20 15:07 Blood Culture Gram Stain - Preliminary Blood 04/11/20 15:12 Blood Culture - Final Blood 04/11/20 15:07 Blood Culture - Final Blood Assessment and Plan Assessment: Impression: Acute hypoxic respiratory failure secondary to acute pulmonary edema secondary to chronic renal failure and fluid overload, possible acute diastolic congestive heart failure. Gram-positive urinary tract infection and gram-positive bacteremia hence we'll start the patient empirically on vancomycin, infectious disease will be consulted, and final cultures are pending. Cardiac arrest, possible asystole or possible pulseless electrical activity, brief, responded to 2 minutes of CPR. Chronic end-stage renal disease on hemodialysis, noncompliant and has been skipping dialysis. Recurrent falls, could be related to his diabetic neuropathy/peripheral diabetic neuropathy or could be cardiac in nature with cardiac arrhythmia, needs to be further investigated. History of ischemic cardiomyopathy and underlying coronary artery disease Type 2 diabetes with multiple complications including diabetic neuropathy, and nephropathy. Chronic anemia secondary to chronic renal disease. Suspect some component of obstructive sleep apnea syndrome. Morbid obesity. Recommendation: Empiric antibiotics. Patient is now on vancomycin for his gram-positive bacteremia. Transition patient from BiPAP to nasal cannula. Continue hemodialysis. Continue to monitor in the ICU. Patient is off norepinephrine this morning, and blood pressure is holding nicely. Sepsis, secondary to UTI and bacteremia, doubt septic shock. Time with Patient: Less than 30
--- NOTE | 2020-04-12 14:58 | P.PN ---
Subjective Progress Note Date: 04/12/20 Principal diagnosis: Fall, generalized weakness, syncope sepsis UTI 59 years old male patient of Dr. Mckeon with past medical history of end-stage renal disease on hemodialysis Wednesday and Wednesday, coronary artery disease post angioplasty, and stent placement last catheterization was February 09 with stent of the left circumflex and proximal LAD, atrial fibrillation, diabetes, GERD, hyperlipidemia, hypertension. He does have intermittent lesion along the mid LAD and follows Dr. Hinojosa on as outpatient. Patient was last admitted in February 16 with chest pain and unstable angina, comes in this time with change in mental status, and multiple falls at home. Patient is unable to provide any history due to increased drowsiness. History obtained from the chart. It appears patient had a fall in the bathroom as his leg gave out. He denies any dizziness or syncope episode. CT of the head was obtained that showed no acute lesions. Patient missed 2 dialysis appointment, last hemodialysis was 1 week ago. In the ER patient's blood pressure was 202/94 temp of 99 pulse 91 and respiratory rate 19 on assessment of patient's lab patient had a any, hemoglobin 10.7 hematocrit 32.4 sodium 133 chloride 92 bicarb 21 BUN 86 creatinine 7.56 glucose 237. Urinalysis does suggest leukocytosis with positive blood and positive protein. Urine culture was sent. On evaluation today patient is found to be lying in bed. He is unable to provide any history. Patient did Gabapentin, Dilaudid and 1 L of bolus of IV fluids. We will hold pain medication. Decrease gabapentin 100 3 times a day. Patient will be started on levofloxacin renally adjusted to 250 every 48 hours. Ativan reduced to 0.5 mg 3 times a day. Hold off diuretics. Nephrology consulted At 2:30 this afternoon patient became unresponsive as patient was hooked to the dialysis. The A team responded to the patient did mention patient was pulseless. A brief CPR was done for 2 minutes, with return of spontaneous circulation and return of the pulse with no need of epinephrine. Patient's blood pressure was found to be low. Cardiology consult will be placed. Echo will be ordered. Patient was noted to be in atrial fibrillation and was transferred to the ICU on nonrebreather mask. Another attempt was made to start the hemodialysis while patient was arousable and follows all commands he was found to be more lethargic. Patient's blood pressure dropped on hemodialysis and became unresponsive not responding to sternal rub. Was noted to be in A. fib with RVR. Patient was placed on BiPAP intubation was not required. 04/12 patient currently in the ICU. Vitals are stable with temp of 98 pulse 67 and respiratory rate 19 and blood pressure 156/71 oxygen saturation 95% on 40% on BiPAP. Patient has leukocytosis of 18 improved from 20 hemoglobin 9.9, sodium 134 chloride 97 bicarb 19 BUN 104 creatinine 8.15 phosphorus 10.7 and total bilirubin 1.7 AST 2932 ALT 2727 alkaline phosphatase 449. Cardiology evaluated the patient thinks patient's episode of unresponsiveness could be vasovagal from low blood pressure. Continue to monitor patient's blood pressure with possible orthostatics when patient is stable. Metoprolol dose increased to 25 twice a day. Initiated on amiodarone 100 mg daily patient is being dialyzed today with minimal ultrafiltration. We will hold hydralazine and Cozaar for systolic less than 125. Patient currently off pressors. Spoke to patient's at bedside who mentioned patient has been falling for the past few months. He had MRI of the lower back done as outpatient that suggested severe spinal stenosis. Patient was set up for PT as outpatient but has been forgetting to often due to weakness in his legs. He has a outpatient appointment pending with an orthopedic surgery Review of Systems Constitutional: Denies chills, Denies fever, endorses lethargy and weakness Eyes: denies decreased vision, denies diplopia, denies discharge, denies pain Ears: deny: decreased hearing Ears, nose, mouth and throat: Denies dental pain, Denies headache, Denies nasal discharge, Denies nose pain Cardiovascular: Denies chest pain, Denies decreased exercise tolerance, Denies edema, Denies high blood pressure, Denies irregular heart beat, Denies palpitations, Denies paroxysmal nocturnal dyspnea, Denies rapid heart beat, Denies shortness of breath Respiratory: Denies congestion, Denies cough, Denies cough with sputum, Denies dyspnea, Denies home oxygen, Denies wheezing Gastrointestinal: Denies abdominal pain, Denies change in bowel habits, Denies coffee ground emesis, Denies early satiety, Denies excessive gas, Denies heartburn, Denies hematemesis, Denies hematochezia, Denies loss of appetite, Denies nausea, Denies vomiting Genitourinary: Denies dysuria, Denies flank pain, Denies kidney stones, Denies menorrhagia, Denies urgency, Denies urinary frequency Musculoskeletal: Endorses gait instability and multiple falls Integumentary: Denies rash, Denies wounds, Denies brittle nails, Denies change in hair/nails, Denies darkening of skin Neurological: Endorses balance difficulties, Denies change in speech, Denies double vision, Denies gait dysfunction, Denies loss of vision, Denies motor disturbance, Denies numbness, Denies paralysis, Denies paresthesias, Denies seizures Psychiatric: Denies anxiety, Denies depression Endocrine: Denies excessive sweating, Denies excessive thirst, Denies high blood sugars, Denies palpitations Hematologic/Lymphatic: Denies easy bruising, Denies lymphadenopathy Objective - Vital Signs Vital signs: Vital Signs Temp 97.4 F L 04/12/20 04:00 Pulse 67 04/12/20 07:00 Resp 19 04/12/20 07:00 BP 156/71 04/12/20 07:00 Pulse Ox 95 04/12/20 07:00 Intake & Output 04/11/20 04/12/20 04/12/20 18:59 06:59 18:59 Intake Total 46.636 Output Total 0 15 Balance 0 31.636 Weight 94.4 kg 94.4 kg Intake: Intake, IV Titration 46.636 Amount Norepinephrine 4 mg In 46.636 Sodium Chloride 0.9% 250 ml @ 0.05 MCG/KG/MIN 18. 146 mls/hr IV .Q14H [facility] Rx#:[id number] Output: Urine 0 15 Other: Voiding Method Indwelling Catheter Indwelling Catheter - Exam - Constitutional General appearance: Tired, no acute distress, cooperative - EENT Eyes: anicteric sclerae, PERRLA, normal appearance ENT: hearing grossly normal - Neck Neck: no lymphadenopathy, normal ROM, no other, no rigidity, no stridor, no thyromegaly - Respiratory Respiratory: bilateral: CTA, negative: diminished, dullness, rales, rhonchi - Cardiovascular Rhythm: regular Heart sounds: normal: S1, S2 Abnormal Heart Sounds: 2 /6 systolic murmur, no diastolic murmur, no rub, no S3 Gallop, no S4 Gallop, no click, no other - Gastrointestinal General gastrointestinal: normal bowel sounds, soft nontender - Integumentary Integumentary: no rash - Neurologic Neurologic: CNII-XII intact - Musculoskeletal Musculoskeletal: , strength equal bilaterally - Psychiatric Psychiatric: A&O x's 3, appropriate affect - Labs CBC & Chem 7: 04/12/20 04:24 04/12/20 04:24 Labs: Abnormal Lab Results - Last 24 Hours (Table) 04/11/20 04/11/20 04/11/20 Range/Units 05:42 05:42 05:42 WBC (3.8-10.6) k/uL RBC (4.30-5.90) m/uL Hgb (13.0-17.5) gm/dL Hct (39.0-53.0) % RDW (11.5-15.5) % Neutrophils # (1.3-7.7) k/uL Lymphocytes # (1.0-4.8) k/uL Monocytes # (0-1.0) k/uL ABG pCO2 (35-45) mmHg ABG pO2 (83-108) mmHg ABG HCO3 (21-25) mmol/L ABG O2 Saturation (94-97) % Sodium (137-145) mmol/L Chloride 94 L (96-109) mmol/L Carbon Dioxide 17.5 L (21.6-31.8) mmol/L Anion Gap 23.50 H (4.00-12.00) mmol/L BUN 98.0 H (9.0-27.0) mg/dL Creatinine 7.1 H* (0.6-1.5) mg/dL Est GFR (CKD-EPI)AfAm 8.8 L (60.0-200.0) Est GFR (CKD-EPI)NonAf 7.6 L (60.0-200.0) Glucose 174 H (70-110) mg/dL POC Glucose (mg/dL) (75-99) mg/dL Hemoglobin A1c 10.1 H (4.0-6.0) % Phosphorus 8.6 H (2.4-5.1) mg/dL Total Bilirubin (0.2-1.3) mg/dL AST (17-59) U/L ALT (4-49) U/L Alkaline Phosphatase 145 H (41-126) U/L Troponin I (0.000-0.034) ng/mL Total Protein 5.9 L (6.2-8.2) g/dL Albumin (3.5-5.0) g/dL 04/11/20 04/11/20 04/11/20 Range/Units 11:16 11:29 13:56 WBC 20.9 H (3.8-10.6) k/uL RBC 3.45 L (4.30-5.90) m/uL Hgb 9.3 L (13.0-17.5) gm/dL Hct 30.1 L (39.0-53.0) % RDW 15.8 H (11.5-15.5) % Neutrophils # 18.7 H (1.3-7.7) k/uL Lymphocytes # 0.4 L (1.0-4.8) k/uL Monocytes # 1.3 H (0-1.0) k/uL ABG pCO2 (35-45) mmHg ABG pO2 (83-108) mmHg ABG HCO3 (21-25) mmol/L ABG O2 Saturation (94-97) % Sodium (137-145) mmol/L Chloride (96-109) mmol/L Carbon Dioxide (21.6-31.8) mmol/L Anion Gap (4.00-12.00) mmol/L BUN (9.0-27.0) mg/dL Creatinine (0.6-1.5) mg/dL Est GFR (CKD-EPI)AfAm (60.0-200.0) Est GFR (CKD-EPI)NonAf (60.0-200.0) Glucose (70-110) mg/dL POC Glucose (mg/dL) 170 H 154 H (75-99) mg/dL Hemoglobin A1c (4.0-6.0) % Phosphorus (2.4-5.1) mg/dL Total Bilirubin (0.2-1.3) mg/dL AST (17-59) U/L ALT (4-49) U/L Alkaline Phosphatase (41-126) U/L Troponin I (0.000-0.034) ng/mL Total Protein (6.2-8.2) g/dL Albumin (3.5-5.0) g/dL 04/11/20 04/11/2021 Range/Units 14:03 14:13 14:32 WBC 20.2 H (3.8-10.6) k/uL RBC 3.55 L (4.30-5.90) m/uL Hgb 9.9 L (13.0-17.5) gm/dL Hct 30.2 L (39.0-53.0) % RDW (11.5-15.5) % Neutrophils # 17.9 H (1.3-7.7) k/uL Lymphocytes # 0.8 L (1.0-4.8) k/uL Monocytes # (0-1.0) k/uL ABG pCO2 (35-45) mmHg ABG pO2 (83-108) mmHg ABG HCO3 (21-25) mmol/L ABG O2 Saturation (94-97) % Sodium 133 L (137-145) mmol/L Chloride 97 L (96-109) mmol/L Carbon Dioxide 17 L (21.6-31.8) mmol/L Anion Gap (4.00-12.00) mmol/L BUN 92 H (9.0-27.0) mg/dL Creatinine 7.67 H* (0.6-1.5) mg/dL Est GFR (CKD-EPI)AfAm (60.0-200.0) Est GFR (CKD-EPI)NonAf (60.0-200.0) Glucose 163 H (70-110) mg/dL POC Glucose (mg/dL) 184 H (75-99) mg/dL Hemoglobin A1c (4.0-6.0) % Phosphorus 10.3 H* (2.4-5.1) mg/dL Total Bilirubin 2.3 H (0.2-1.3) mg/dL AST 2029 H (17-59) U/L ALT 1290 H (4-49) U/L Alkaline Phosphatase 341 H (41-126) U/L Troponin I (0.000-0.034) ng/mL Total Protein 6.0 L (6.2-8.2) g/dL Albumin 3.1 L (3.5-5.0) g/dL 04/11/20 04/11/20 04/11/20 Range/Units 14:32 15:38 16:01 WBC (3.8-10.6) k/uL RBC (4.30-5.90) m/uL Hgb (13.0-17.5) gm/dL Hct (39.0-53.0) % RDW (11.5-15.5) % Neutrophils # (1.3-7.7) k/uL Lymphocytes # (1.0-4.8) k/uL Monocytes # (0-1.0) k/uL ABG pCO2 33 L (35-45) mmHg ABG pO2 53 L* (83-108) mmHg ABG HCO3 20 L (21-25) mmol/L ABG O2 Saturation 83.5 L (94-97) % Sodium (137-145) mmol/L Chloride (96-109) mmol/L Carbon Dioxide (21.6-31.8) mmol/L Anion Gap (4.00-12.00) mmol/L BUN (9.0-27.0) mg/dL Creatinine (0.6-1.5) mg/dL Est GFR (CKD-EPI)AfAm (60.0-200.0) Est GFR (CKD-EPI)NonAf (60.0-200.0) Glucose (70-110) mg/dL POC Glucose (mg/dL) 183 H (75-99) mg/dL Hemoglobin A1c (4.0-6.0) % Phosphorus (2.4-5.1) mg/dL Total Bilirubin (0.2-1.3) mg/dL AST (17-59) U/L ALT (4-49) U/L Alkaline Phosphatase (41-126) U/L Troponin I 0.118 H* (0.000-0.034) ng/mL Total Protein (6.2-8.2) g/dL Albumin (3.5-5.0) g/dL 04/11/20 04/12/20 04/12/20 Range/Units 21:08 04:24 04:24 WBC 18.4 H (3.8-10.6) k/uL RBC 3.54 L (4.30-5.90) m/uL Hgb 9.9 L (13.0-17.5) gm/dL Hct 30.8 L (39.0-53.0) % RDW 15.6 H (11.5-15.5) % Neutrophils # 16.1 H (1.3-7.7) k/uL Lymphocytes # 0.8 L (1.0-4.8) k/uL Monocytes # 1.1 H (0-1.0) k/uL ABG pCO2 (35-45) mmHg ABG pO2 (83-108) mmHg ABG HCO3 (21-25) mmol/L ABG O2 Saturation (94-97) % Sodium 134 L (137-145) mmol/L Chloride 97 L (96-109) mmol/L Carbon Dioxide 19 L (21.6-31.8) mmol/L Anion Gap (4.00-12.00) mmol/L BUN 104 H* (9.0-27.0) mg/dL Creatinine 8.15 H* (0.6-1.5) mg/dL Est GFR (CKD-EPI)AfAm (60.0-200.0) Est GFR (CKD-EPI)NonAf (60.0-200.0) Glucose 154 H (70-110) mg/dL POC Glucose (mg/dL) 173 H (75-99) mg/dL Hemoglobin A1c (4.0-6.0) % Phosphorus 10.7 H* (2.4-5.1) mg/dL Total Bilirubin 1.7 H (0.2-1.3) mg/dL AST 2932 H (17-59) U/L ALT 2723 H (4-49) U/L Alkaline Phosphatase 449 H (41-126) U/L Troponin I (0.000-0.034) ng/mL Total Protein 6.1 L (6.2-8.2) g/dL Albumin 3.1 L (3.5-5.0) g/dL 04/12/20 04/12/20 Range/Units 06:45 09:14 WBC (3.8-10.6) k/uL RBC (4.30-5.90) m/uL Hgb (13.0-17.5) gm/dL Hct (39.0-53.0) % RDW (11.5-15.5) % Neutrophils # (1.3-7.7) k/uL Lymphocytes # (1.0-4.8) k/uL Monocytes # (0-1.0) k/uL ABG pCO2 (35-45) mmHg ABG pO2 (83-108) mmHg ABG HCO3 (21-25) mmol/L ABG O2 Saturation (94-97) % Sodium (137-145) mmol/L Chloride (96-109) mmol/L Carbon Dioxide (21.6-31.8) mmol/L Anion Gap (4.00-12.00) mmol/L BUN (9.0-27.0) mg/dL Creatinine (0.6-1.5) mg/dL Est GFR (CKD-EPI)AfAm (60.0-200.0) Est GFR (CKD-EPI)NonAf (60.0-200.0) Glucose (70-110) mg/dL POC Glucose (mg/dL) 150 H 138 H (75-99) mg/dL Hemoglobin A1c (4.0-6.0) % Phosphorus (2.4-5.1) mg/dL Total Bilirubin (0.2-1.3) mg/dL AST (17-59) U/L ALT (4-49) U/L Alkaline Phosphatase (41-126) U/L Troponin I (0.000-0.034) ng/mL Total Protein (6.2-8.2) g/dL Albumin (3.5-5.0) g/dL Microbiology - Last 24 Hours (Table) 04/11/20 15:07 Blood Culture - Final Blood 04/11/20 07:22 Urine Culture - Preliminary Urine,Voided Assessment and Plan Plan: #1 sepsis secondary to UTI initiated on levofloxacin 250 mg IV daily. Infectious disease consulted. Blood culture obtained. Patient received 1 L normal saline in the ER. Urine culture pending blood culture pending #2 fall likely secondary to degenerative disc disease and spinal stenosis MRI done as outpatient that showed severe spinal stenosis. Patient has outpatient orthopedic evaluation pending PTOT consulted #3 acute metabolic encephalopathy likely secondary to to sepsis, uremia, pain medication and benzodiazepine. Missed dialysis 2 days. Nephrology consulted for hemodialysis. Hold Dilor noted. Ativan reduced to 0.5 3 times a day. Patient has not received any benzodiazepine in the hospital but did receive 2 doses of dialuadid ordered. #4 end-stage renal disease on hemodialysis Wednesday and Wednesday. Nephrology consulted for dialysis today. On PhosLo #5 acute syncope. Likely vasovagal Patient had a brief CPR as he lost his pulse and became unresponsive. Blood pressure was unobtainable. Cardiac consult placed repeat echo was not indicated #6 coronary artery disease with previous PTCA to LAD and circumflex. Lexiscan was negative on previous admission. Continue Uloric was, Plavix, Imdur, losartan, metoprolol #7 paroxysmal atrial fibrillation on Eliquis and metoprolol, along with amiodarone 100 mg daily metoprolol dose increased from 25 twice a day #8 ischemic cardiomyopathy: Hold Zaroxolyn and Lasix continue Lopressor, hydralazine, nitro hold hydralazine and was out for systolic less than 120 #9 type 2 diabetes: On Levemir 20 units daily along with NovoLog per sliding scales coverage hold Actos due to concern for acute diastolic heart failure #10 chronic neuropathy: Gabapentin reduced to `100 mg 3 times a day #11 hypertension: Still on metoprolol 25 twice a day losartan 50 mg a day hydralazine 50 mg 3 times a day. Hold losartan and hydralazine systolic less than 120 #12 chronic anemia: On iron and Procrit. #13 GI prophylaxis: Remain on Pepcid. #14 DVT prophylaxis: Still on Eliquis. #15 CODE STATUS: Full code . #16 acute hypoxic respiratory failure secondary to volume overload, end-stage renal disease , though acute diastolic heart failure cannot be ruled out ProBNP ordered. #17 disposition PT OT ordered patient would benefit from rehab on discharge
[2020-04-12] MEDS: ISOSORBIDE MONONITRATE ER 30 MG TAB.ER.24H PO SCH (16:02)
[2020-04-12 16:34] LABS: Glucose,Whole Blood 129 mg/dL (75-99)
[2020-04-12 21:09] LABS: Glucose,Whole Blood 138 mg/dL (75-99)
[2020-04-13] MEDS: hydrALAZINE HCL 50 MG TAB PO SCH ×4 (02:42→20:07)
[2020-04-13] MEDS: LOSARTAN 50 MG TAB PO SCH ×2 (02:42→20:06)
[2020-04-13 04:00] LABS: Basophils % (A) 0 %; Eosinophils # (A) 0.1 k/uL (0-0.7); Eosinophils % (A) 0 %; HCT 30.4 % (39.0-53.0); Lymphocytes # (A) 0.5 k/uL (1.0-4.8); Lymphocytes % (A) 2 %; MCH 27.9 pg (25.0-35.0); MCV 84.6 fL (80.0-100.0); Mean Platelet Volume 7.8; Monocytes # (A) 0.7 k/uL (0-1.0); Monocytes % (A) 3 %; Neutrophils # (A) 23.8 k/uL (1.3-7.7); Neutrophils % (A) 94 %; Platelet Count 317 k/uL (150-450); RBC 3.59 m/uL (4.30-5.90); RDW 15.7 % (11.5-15.5); WBC 25.4 k/uL (3.8-10.6)
[2020-04-13 04:13] LABS: Albumin 2.7 g/dL (3.5-5.0); Magnesium 2.1 mg/dL (1.6-2.3); Total Bilirubin 1.5 mg/dL (0.2-1.3); Total Protein 5.5 g/dL (6.3-8.2)
[2020-04-13 04:18] LABS: Vancomycin,Random 13.3 ug/mL
--- NOTE | 2020-04-13 06:25 | P.PN ---
Subjective Progress Note Date: 04/13/20 Principal diagnosis: Coronary artery disease/paroxysmal atrial fibrillation This is a 59-year-old gentleman with coronary artery disease and prior stenting of the LAD as well as paroxysmal atrial fibrillation as well as end stage renal failure on dialysis who was admitted to the hospital initially with generalized weakness and fatigue and initially he was admitted to the telemetry floor on 3 S but subsequently he was transferred to the intensive care unit because an episode of asystole. The patient was seen today April 132020. He remains hemodynamically stable. He is maintaining sinus mechanism unless he is not using the BiPAP where he goes into atrial fibrillation. Yesterday I did increase the dose of metoprolol. He is on oral anticoagulation. He is not on any norepinephrine at this point. He denies any symptoms of chest pain or chest discomfort. No more episode of asystole throughout his hospital stay. I do feel that is likely related to vasovagal. Objective - Vital Signs Vital signs: Vital Signs Temp 99.8 F H 04/13/20 00:00 Pulse 67 04/13/20 03:00 Resp 13 04/13/20 03:00 BP 111/58 04/13/20 03:00 Pulse Ox 98 04/13/20 03:00 Intake & Output 04/12/20 04/12/20 04/13/20 06:59 18:59 06:59 Intake Total 46.636 360 90 Output Total 15 665 80 Balance 31.636 -305 10 Weight 94.4 kg 94.4 kg Intake: IV 360 90 KVO 110 90 Levofloxacin 250Mg-D5w 0 Pmx 250 mg In Dextrose/ Water 1 50ml.bag @ 50 mls /hr IVPB Q48H [facility] Rx#: [id number] Vancomycin 1,500 mg In 250 Sodium Chloride 0.9% 250 ml @ 125 mls/hr IVPB ONCE ONE Rx#:[id number] Intake, IV Titration 46.636 Amount Norepinephrine 4 mg In 46.636 Sodium Chloride 0.9% 250 ml @ 0.05 MCG/KG/MIN 18. 146 mls/hr IV .Q14H [facility] Rx#:[id number] Output: Urine 15 165 80 Hemodialysis 500 Other: Voiding Method Indwelling Catheter Indwelling Catheter Indwelling Catheter - Constitutional General appearance: Present: no acute distress - Respiratory Respiratory: bilateral: CTA - Cardiovascular Rhythm: regular Heart sounds: normal: S1, S2 - Labs CBC & Chem 7: 04/13/20 03:35 04/13/20 03:35 Labs: Abnormal Lab Results - Last 24 Hours (Table) 04/12/20 04/12/20 04/12/20 Range/Units 06:45 09:14 11:55 WBC (3.8-10.6) k/uL RBC (4.30-5.90) m/uL Hgb (13.0-17.5) gm/dL Hct (39.0-53.0) % RDW (11.5-15.5) % Neutrophils # (1.3-7.7) k/uL Lymphocytes # (1.0-4.8) k/uL Sodium (137-145) mmol/L Carbon Dioxide (22-30) mmol/L BUN (9-20) mg/dL Creatinine (0.66-1.25) mg/dL Glucose (74-99) mg/dL POC Glucose (mg/dL) 150 H 138 H 135 H (75-99) mg/dL Phosphorus (2.5-4.5) mg/dL Total Bilirubin (0.2-1.3) mg/dL AST (17-59) U/L ALT (4-49) U/L Alkaline Phosphatase (38-126) U/L Total Protein (6.3-8.2) g/dL Albumin (3.5-5.0) g/dL 04/12/20 04/12/20 04/13/20 Range/Units 16:32 21:07 03:35 WBC 25.4 H (3.8-10.6) k/uL RBC 3.59 L (4.30-5.90) m/uL Hgb 10.0 L (13.0-17.5) gm/dL Hct 30.4 L (39.0-53.0) % RDW 15.7 H (11.5-15.5) % Neutrophils # 23.8 H (1.3-7.7) k/uL Lymphocytes # 0.5 L (1.0-4.8) k/uL Sodium (137-145) mmol/L Carbon Dioxide (22-30) mmol/L BUN (9-20) mg/dL Creatinine (0.66-1.25) mg/dL Glucose (74-99) mg/dL POC Glucose (mg/dL) 129 H 138 H (75-99) mg/dL Phosphorus (2.5-4.5) mg/dL Total Bilirubin (0.2-1.3) mg/dL AST (17-59) U/L ALT (4-49) U/L Alkaline Phosphatase (38-126) U/L Total Protein (6.3-8.2) g/dL Albumin (3.5-5.0) g/dL 04/13/20 Range/Units 03:35 WBC (3.8-10.6) k/uL RBC (4.30-5.90) m/uL Hgb (13.0-17.5) gm/dL Hct (39.0-53.0) % RDW (11.5-15.5) % Neutrophils # (1.3-7.7) k/uL Lymphocytes # (1.0-4.8) k/uL Sodium 135 L (137-145) mmol/L Carbon Dioxide 21 L (22-30) mmol/L BUN 95 H (9-20) mg/dL Creatinine 7.08 H* (0.66-1.25) mg/dL Glucose 110 H (74-99) mg/dL POC Glucose (mg/dL) (75-99) mg/dL Phosphorus 8.0 H (2.5-4.5) mg/dL Total Bilirubin 1.5 H (0.2-1.3) mg/dL AST 752 H (17-59) U/L ALT 2044 H (4-49) U/L Alkaline Phosphatase 384 H (38-126) U/L Total Protein 5.5 L (6.3-8.2) g/dL Albumin 2.7 L (3.5-5.0) g/dL Microbiology - Last 24 Hours (Table) 04/11/20 15:12 Blood Culture Gram Stain - Preliminary Blood Blood Culture - Preliminary Presumptive MRSA 04/11/20 15:07 Blood Culture Gram Stain - Preliminary Blood Blood Culture - Preliminary Presumptive MRSA 04/11/20 07:22 Urine Culture - Preliminary Urine,Voided Presumptive Staph aureus 04/11/20 15:12 Blood Culture - Final Blood 04/11/20 15:07 Blood Culture - Final Blood Assessment and Plan Assessment: Assessment #1 an episode of asystole could be related to vasovagal #2 paroxysmal atrial fibrillation #3 coronary artery disease #4 end stage renal disease on dialysis #5 multiple comorbid conditions Plan #1 continue the current medical regimen including the current dose of metoprolol #2 continue oral anticoagulation #3 the patient possibly can be transferred out of the ICU
[2020-04-13 07:09] LABS: Glucose,Whole Blood 132 mg/dL (75-99)
[2020-04-13] MEDS: INSULIN ASPART (NovoLOG) 100 UNIT/ML VIAL SQ SCH ×4 (08:33→23:54)
[2020-04-13] MEDS: APIXABAN 2.5 MG TABLET PO SCH ×2 (08:42→20:08)
[2020-04-13] MEDS: allopurinoL 100 MG TAB PO SCH (08:42)
[2020-04-13] MEDS: PANTOPRAZOLE 40 MG TABLET PO SCH (08:42)
[2020-04-13] MEDS: HYDROcodone/APAP 10-325MG 1 EACH TAB PO PRN ×2 (08:42→20:07)
[2020-04-13] MEDS: INSULIN DETEMIR (LEVEMIR) 100 UNIT/ML SYR SQ SCH (08:42)
[2020-04-13] MEDS: CLOPIDOGREL 75 MG TAB PO SCH (08:42)
[2020-04-13] MEDS: METOPROLOL TARTRATE 25 MG TAB PO SCH ×2 (08:43→20:07)
[2020-04-13] MEDS: ISOSORBIDE MONONITRATE ER 30 MG TAB.ER.24H PO SCH (08:43)
[2020-04-13] MEDS: AMIODARONE 100 MG TAB PO SCH (08:43)
[2020-04-13] MEDS: GABAPENTIN 100 MG CAP PO SCH ×3 (08:43→20:07)
[2020-04-13] MEDS: LORazepam 2 MG/ML INJ IV PRN ×2 (08:55→17:15)
[2020-04-13] MEDS ORDERED: VANCOMYCIN 1,500 MG in SODIUM CHLORIDE 0.9% 250 ML IVPB ONE (09:00)
[2020-04-13] MEDS: NOREPINEPHRINE 4 MG in SODIUM CHLORIDE 0.9% 250 ML IV SCH ×2 (12:01→21:21)
--- NOTE | 2020-04-13 12:09 | P.PN ---
Subjective Progress Note Date: 04/13/20 Principal diagnosis: Cardiac arrest This is a 59-year-old white male admitted on 04/11/2020, admitted mostly with a diagnosis of sepsis and urinary tract infection, patient is known to have history of multiple medical problems, and has been falling recently quite frequently, is also known to have history of end-stage renal disease, on hemodialysis for the last 3 years, and he has a dialysis catheter in his right subclavian placed apparently a few weeks ago. He did have previous history of left AV fistula which has been nonfunctional recently and that is why he had a subclavian dialysis catheter. Patient is primarily a patient with Dr. Mckeon, he receives dialysis is normally on Wednesday and Wednesday, he had previous history of coronary artery disease and previous angioplasty, stent placement. His other medical problems include chronic atrial fibrillation diabetes dyslipidemia hypertension, and diabetic neuropathy. This time the patient was admitted mostly with mental status change, multiple falls at home, apparently had a recent fall in the bathroom and had trauma CT of the head was unremarkable on admission. Patient missed 2 dialysis appointments and in the ER his blood pressure was significantly elevated at 202/94. He had a low-grade fever, he had a relatively normal electrolytes, blood sugar was 237, and his urinalysis showed pyuria and bacteriuria. Hence patient was admitted mostly with the impression of UTI and sepsis. At 2:30 this afternoon, patient was receiving dialysis, as soon as dialysis was started, patient had a sudden epis ode of unresponsiveness, he was pulseless according to the team responded to him. Patient had less than 2 minutes of CPR, that there was return of spontaneous circulation, and return of pulse. No monitor was noted at the time, but by the time he woke up, patient was in atrial fibrillation with fairly controlled rhythm. Patient was transferred to the ICU, placed on a nonrebreather mask hemodynamically stable, I was asked to see him on consultation since he was transferred to the intensive care unit. Seen in the ICU, patient is on a nonrebreather mask, which I will transition to a high flow nasal cannula, patient is hemodynamically stable, he was in normal sinus rhythm, and he is a bit lethargic, but arousable, and follows all instructions. Labs from today were all reviewed. Again noted to have leukocytosis with WBC count 20.2, hemoglobin is 9.9. Troponin is 0.118, and his urine did show evidence of bacteriuria and pyuria. Reevaluated today on 04/12/2019, patient remains in the ICU, he had another episode of near syncope yesterday, patient was noted to become hypotensive upon connection to the dialysis machine. Patient had to be Ambu bag, did not require CPR this time, he had a pulse, but he was hypotensive. I saw the patient shortly after that episode, and his blood pressure was marginal. Recommended starting the patient on norepinephrine and recommended that we proceed with his hemodialysis. Patient did well overnight, did not have any further episodes, tolerated the hemodialysis well yesterday. Presently asymptomatic, patient has paroxysmal atrial fibrillation, but presently in sinus rhythm. On BiPAP which I will discontinue and place on a nasal cannula, and it will be titrated accordingly. Patient is definitely more awake today, alert and oriented 3. Ho wever his blood cultures are positive for gram-positive cocci, final identification is not available, and his urine from 04/11 was positive for presumptive staph aureus. Hence we will recommend empirically starting the patient on vancomycin, and we will initiate infectious disease consultation on t his patient. Obviously the patient may have a positive urinary tract infection with gram-positive bacteremia. During my evaluation of this patient, he was undergoing dialysis, and he seems to be tolerating that quite well. His WBC count is 18.4 hemoglobin is 9.9. Electrolytes are normal bicarb is 19 BUN is 104 creatinine 8.15. Liver enzymes were noted to be elevated, his AST is 2932 and his ALT is 2723 with alkaline phosphatase of 449 could be related to hypoperfusion at the time when the patient had episodes of low blood pressure and at one point he had no pulse according to the team responded to his code. Chest x-ray showed evidence of mild interstitial edema, suspect diastolic conge stive heart failure or pulmonary edema secondary to his underlying chronic renal disease Reevaluated today on 04/13/2020, patient remains in the ICU, presently undergoing hemodialysis. Patient remains hemodynamically stable, off BiPAP, seems to have intermittent atrial fibrillation that seems to improve once he goes on BiPAP. ABG did not reflect hypercapnia at any point. Patient is on oral an ticoagulation therapy, he is not requiring norepinephrine anymore. Denies any chest pain or discomfort, no episodes of asystole over the last 24 hours, and no episodes of syncope or near syncope. Patient is intermittently confused and requires sedation and soft restraints blood cultures are now positive for MRSA and the patient is now on vancomycin and Levaquin. Potential sources for his MRSA bacteremia could be that his dialysis catheter or right second toe which shows some area of necrosis. Infectious disease has been consulted. For his agitation patient is requiring Ativan every 4 hours. As needed. Pulmonary-webb remains on 2 L nasal cannula or at times on BiPAP at 50% FiO2 with IPAP of 12 and EPAP of 5. Objective - Vital Signs Vital signs: Vital Signs Temp 98.0 F 04/13/20 04:00 Pulse 68 04/13/20 07:00 Resp 22 04/13/20 07:00 BP 118/56 04/13/20 07:00 Pulse Ox 94 L 04/13/20 07:00 Intake & Output 04/12/20 04/13/20 04/13/20 18:59 06:59 18:59 Intake Total 360 240 10 Output Total 665 110 10 Balance -305 130 0 Weight 94.4 kg Intake: IV 360 120 10 KVO 110 120 10 Levofloxacin 250Mg-D5w 0 Pmx 250 mg In Dextrose/ Water 1 50ml.bag @ 50 mls /hr IVPB Q48H [facility] Rx#: [id number] Vancomycin 1,500 mg In 250 Sodium Chloride 0.9% 250 ml @ 125 mls/hr IVPB ONCE ONE Rx#:[id number] Oral 120 Output: Urine 165 110 10 Hemodialysis 500 Other: Voiding Method Indwelling Catheter Indwelling Catheter - Exam Physical Exam: Revealed 59-year-old white male obese, in no distress, remains on 2 L nasal cannula. Head: Atraumatic, normocephalic. HEENT:[Neck is supple.] [No neck masses.] [No thyromegaly.] [No JVD.] Patient has a Mallampati class IV. Chest: Symmetrical chest expansion. Diminished breath sounds at the bases no rhonchi and no wheezes. Cardiac Exam: [Normal S1 and S2, no S3 gallop, no murmur.] Abdomen: The skull, [Soft, nontender, no megaly, no rebound, no guarding, normal bowel sounds.] Extremities: [No clubbing, no edema, no cyanosis.] Evidence of necrosis of the right second toe at the tip. AV fistula noted in left upper extremity. Right subclavian dialysis catheter noted. Neurological Exam: Alert and oriented 3, no gross focal neurologic deficits although patient is reported to have intermittent confusion by the nurses taking care of the patient Psychiatric: normal mood affect and normal mental status examination. Skin: No rashes. Except for necrosis noted at dorsal aspect of the tip of the right second toe - Labs CBC & Chem 7: 04/13/20 03:35 04/13/20 03:35 Labs: Abnormal Lab Results - Last 24 Hours (Table) 04/12/20 04/12/20 04/13/20 Range/Units 16:32 21:07 03:35 WBC 25.4 H (3.8-10.6) k/uL RBC 3.59 L (4.30-5.90) m/uL Hgb 10.0 L (13.0-17.5) gm/dL Hct 30.4 L (39.0-53.0) % RDW 15.7 H (11.5-15.5) % Neutrophils # 23.8 H (1.3-7.7) k/uL Lymphocytes # 0.5 L (1.0-4.8) k/uL Sodium (137-145) mmol/L Carbon Dioxide (22-30) mmol/L BUN (9-20) mg/dL Creatinine (0.66-1.25) mg/dL Glucose (74-99) mg/dL POC Glucose (mg/dL) 129 H 138 H (75-99) mg/dL Phosphorus (2.5-4.5) mg/dL Total Bilirubin (0.2-1.3) mg/dL AST (17-59) U/L ALT (4-49) U/L Alkaline Phosphatase (38-126) U/L Total Protein (6.3-8.2) g/dL Albumin (3.5-5.0) g/dL Vitamin B12 (211-911) pg/mL 04/13/20 04/13/20 04/13/20 Range/Units 03:35 03:35 07:07 WBC (3.8-10.6) k/uL RBC (4.30-5.90) m/uL Hgb (13.0-17.5) gm/dL Hct (39.0-53.0) % RDW (11.5-15.5) % Neutrophils # (1.3-7.7) k/uL Lymphocytes # (1.0-4.8) k/uL Sodium 135 L (137-145) mmol/L Carbon Dioxide 21 L (22-30) mmol/L BUN 95 H (9-20) mg/dL Creatinine 7.08 H* (0.66-1.25) mg/dL Glucose 110 H (74-99) mg/dL POC Glucose (mg/dL) 132 H (75-99) mg/dL Phosphorus 8.0 H (2.5-4.5) mg/dL Total Bilirubin 1.5 H (0.2-1.3) mg/dL AST 752 H (17-59) U/L ALT 2044 H (4-49) U/L Alkaline Phosphatase 384 H (38-126) U/L Total Protein 5.5 L (6.3-8.2) g/dL Albumin 2.7 L (3.5-5.0) g/dL Vitamin B12 >4000.0 H (211-911) pg/mL Microbiology - Last 24 Hours (Table) 04/11/20 07:22 Urine Culture - Final Urine,Voided Methicillin resist S. aureus 04/11/20 15:12 Blood Culture Gram Stain - Preliminary Blood Blood Culture - Preliminary Presumptive MRSA 04/11/20 15:07 Blood Culture Gram Stain - Preliminary Blood Blood Culture - Preliminary Presumptive MRSA 04/11/20 15:12 Blood Culture - Final Blood 04/11/20 15:07 Blood Culture - Final Blood Assessment and Plan Assessment: Impression: Acute hypoxic respiratory failure secondary to acute pulmonary edema secondary to chronic renal failure and fluid overload, possible acute diastolic congestive heart failure. MRSA bacteremia and sepsis, source is not clear, could be from the dialysis catheter or could be from the toe cellulitis Cardiac arrest, possible asystole or possible pulseless electrical activity, brief, responded to 2 minutes of CPR. Chronic end-stage renal disease on hemodialysis, noncompliant and has been skipping dialysis. Recurrent falls, could be related to his diabetic neuropathy/peripheral diabetic neuropathy or could be cardiac in nature with cardiac arrhythmia, needs to be further investigated. History of ischemic cardiomyopathy and underlying coronary artery disease Type 2 diabetes with multiple complications including diabetic neuropathy, and nephropathy. Chronic anemia secondary to chronic renal disease. Suspect some component of obstructive sleep apnea syndrome. Morbid obesity. Right second toe cellulitis with necrosis of the dorsal tip Abnormal liver enzymes, possible shock liver. Related to his cardiac arrest. Recommendation: Continue vancomycin and Levaquin. Intermittent placement on BiPAP as needed. Infectious disease consultation. Continue hemodialysis. Continue to monitor liver enzymes. Continue to monitor in the ICU. Time with Patient: Less than 30
[2020-04-13 12:41] LABS: Glucose,Whole Blood 115 mg/dL (75-99)
--- NOTE | 2020-04-13 13:11 | P.PN ---
Subjective Progress Note Date: 04/13/20 Principal diagnosis: Fall, generalized weakness, syncope sepsis UTI, ischemic cardiomyopathy, hypertension on vasopressor 59 years old male patient of Dr. Mckeon with past medical history of end-stage renal disease on hemodialysis Wednesday and Wednesday, coronary artery disease post angioplasty, and stent placement last catheterization was February 09 with stent of the left circumflex and proximal LAD, atrial fibrillation, diabetes, GERD, hyperlipidemia, hypertension. He does have intermittent lesion along the mid LAD and follows Dr. Hinojosa on as outpatient. Patient was last admitted in February 16 with chest pain and unstable angina, comes in this time with change in mental status, and multiple falls at home. Patient is unable to provide any history due to increased drowsiness. History obtained from the chart. It appears patient had a fall in the bathroom as his leg gave out. He denies any dizziness or syncope episode. CT of the head was o btained that showed no acute lesions. Patient missed 2 dialysis appointment, last hemodialysis was 1 week ago. In the ER patient's blood pressure was 202/94 temp of 99 pulse 91 and respiratory rate 19 on assessment of patient's lab patient had a any, hemoglobin 10.7 hematocrit 32.4 sodium 133 chloride 92 bicarb 21 BUN 86 creatinine 7.56 glucose 237. Urinalysis does suggest leukocytosis with positive blood and positive protein. Urine culture was sent. On evaluation today patient is found to be lying in bed. He is unable to provide any history. Patient did Gabapentin, Dilaudid and 1 L of bolus of IV fluids. We will hold pain medication. Decrease gabapentin 100 3 times a day. Patient will be started on levofloxacin renally adjusted to 250 every 48 hours. Ativan reduced to 0.5 mg 3 times a day. Hold off diuretics. Nephrology consulted At 2:30 this afternoon patient became unresponsive as patient was hooked to the dialysis. The A team responded to the patient did mention patient was pulseless. A brief CPR was done for 2 minutes, with return of spontaneous circulation and return of the pulse with no need of epinephrine. Patient's blood pressure was found to be low. Cardiology consult will be placed. Echo will be ordered. Patient was noted to be in atrial fibrillation and was transferred to the ICU on nonrebreather mask. Another attempt was made to start the hemodialysis while patient was arousable and follows all commands he was found to be more lethargic. Patient's blood pressure dropped on hemodialysis and became unresponsive not responding to sternal rub. Was noted to be in A. fib with RVR. Patient was placed on BiPAP intubation was not required. 04/12 patient currently in the ICU. Vitals are stable with temp of 98 pulse 67 and respiratory rate 19 and blood pressure 156/71 oxygen saturation 95% on 40% on BiPAP. Patient has leukocytosis of 18 improved from 20 hemoglobin 9.9, sodium 134 chloride 97 bicarb 19 BUN 104 creatinine 8.15 phosphorus 10.7 and total bilirubin 1.7 AST 2932 ALT 2727 alkaline phosphatase 449. Cardiology evaluated the patient thinks patient's episode of unresponsiveness could be vasovagal from low blood pressure. Continue to monitor patient's blood pressure with possible orthostatics when patient is stable. Metoprolol dose increased to 25 twice a day. Initiated on amiodarone 100 mg daily patient is being dialyzed today with minimal ultrafiltration. We will hold hydralazine and Cozaar for systolic less than 125. Patient currently off pressors. Spoke to patient's at bedside who mentioned patient has been falling for the past few months. He had MRI of the lower back done as outpatient that suggested severe spinal stenosis. Patient was set up for PT as outpatient but has been forgetting to often due to weakness in his legs. He has a outpatient appointment pending with an orthopedic surgery 04/13: Patient still and ice to, on BiPAP, he still have less responsiveness, quite hypertensive today back on vasopressor. Patient was diagnosed tolerate hemodialysis for long had only 1 hour, still currently in significant encephalopathy status, continue IV antibiotic for now there is a small gangreno us spot on the right second toe. Objective - Vital Signs Vital signs: Vital Signs Temp 99.7 F H 04/13/20 12:00 Pulse 147 H 04/13/20 12:00 Resp 14 04/13/20 12:00 BP 93/61 04/13/20 12:00 Pulse Ox 100 04/13/20 12:00 Intake & Output 04/12/20 04/13/20 04/13/20 18:59 06:59 18:59 Intake Total 360 240 290 Output Total 665 110 35 Balance -305 130 255 Weight 94.4 kg 92.4 kg Intake: IV 360 120 290 KVO 110 120 40 Levofloxacin 250Mg-D5w 0 Pmx 250 mg In Dextrose/ Water 1 50ml.bag @ 50 mls /hr IVPB Q48H [facility] Rx#: [id number] Vancomycin 1,500 mg In 250 250 Sodium Chloride 0.9% 250 ml @ 125 mls/hr IVPB ONCE ONE Rx#:[id number] Oral 120 Output: Urine 165 110 35 Hemodialysis 500 Other: Voiding Method Indwelling Catheter Indwelling Catheter - Exam Review of Systems Constitutional: Denies chills, Denies fever, endorses lethargy and weakness Eyes: denies decreased vision, denies diplopia, denies discharge, denies pain Ears: deny: decreased hearing Ears, nose, mouth and throat: Denies dental pain, Denies headache, Denies nasal discharge, Denies nose pain Cardiovascular: Denies chest pain, Denies decreased exercise tolerance, Denies edema, Denies high blood pressure, Denies irregular heart beat, Denies palpitations, Denies paroxysmal nocturnal dyspnea, Denies rapid heart beat, Denies shortness of breath Respiratory: Denies congestion, Denies cough, Denies cough with sputum, Denies dyspnea, Denies home oxygen, Denies wheezing Gastrointestinal: Denies abdominal pain, Denies change in bowel habits, Denies coffee ground emesis, Denies early satiety, Denies excessive gas, Denies heartburn, Denies hematemesis, Denies hematochezia, Denies loss of appetite, Denies nausea, Denies vomiting Genitourinary: Denies dysuria, Denies flank pain, Denies kidney stones, Denies menorrhagia, Denies urgency, Denies urinary frequency Musculoskeletal: Endorses gait instability and multiple falls Integumentary: Denies rash, Denies wounds, Denies brittle nails, Denies change in hair/nails, Denies darkening of skin Neurological: Endorses balance difficulties, Denies change in speech, Denies double vision, Denies gait dysfunction, Denies loss of vision, Denies motor disturbance, Denies numbness, Denies paralysis, Denies paresthesias, Denies seizures Psychiatric: Denies anxiety, Denies depression Endocrine: Denies excessive sweating, Denies excessive thirst, Denies high blood sugars, Denies palpitations Hematologic/Lymphatic: Denies easy bruising, Denies lymphadenopathy Physical examination: General Appearance: Less responsiveness in bed, in no distress still using BiPAP Neck HEENT: Supple, no lymphadenopathy, no thyroid enlargement, no carotid bruits. Lungs: Decreased breath some bilaterally fine rhonchi positive mild crackles in the bases especially the right side. Chest Wall: Decrease expansion with deep inspiration no tenderness and no deformity was found on exam, no costochondral pain or discomfort. Heart: Irregular rate and rhythm, S1, S2 positive tachycardia no murmur or rub. Back: Symmetric, no curvature, ROM normal, no CVA tenderness. Abdomen: Soft, non-tender, bowel sounds active all four quadrants, no masses, no organomegaly. Extremities: Extremities normal, atraumatic, no cyanosis or edema. Right second toe has small area looks like thrombus gangrene. Pulses: 2+ and symmetric. Skin: Skin color, texture, tugor normal, no rashes or lesions. Neurologic: Alert with confusion cranial nerves II through XII intact, positive generalized weakness not been able to do gait exam. - Labs CBC & Chem 7: 04/13/20 03:35 04/13/20 03:35 Labs: Abnormal Lab Results - Last 24 Hours (Table) 04/12/20 04/12/20 04/13/20 Range/Units 16:32 21:07 03:35 WBC 25.4 H (3.8-10.6) k/uL RBC 3.59 L (4.30-5.90) m/uL Hgb 10.0 L (13.0-17.5) gm/dL Hct 30.4 L (39.0-53.0) % RDW 15.7 H (11.5-15.5) % Neutrophils # 23.8 H (1.3-7.7) k/uL Lymphocytes # 0.5 L (1.0-4.8) k/uL Sodium (137-145) mmol/L Carbon Dioxide (22-30) mmol/L BUN (9-20) mg/dL Creatinine (0.66-1.25) mg/dL Glucose (74-99) mg/dL POC Glucose (mg/dL) 129 H 138 H (75-99) mg/dL Phosphorus (2.5-4.5) mg/dL Total Bilirubin (0.2-1.3) mg/dL AST (17-59) U/L ALT (4-49) U/L Alkaline Phosphatase (38-126) U/L Total Protein (6.3-8.2) g/dL Albumin (3.5-5.0) g/dL Vitamin B12 (211-911) pg/mL 04/13/20 04/13/20 04/13/20 Range/Units 03:35 03:35 07:07 WBC (3.8-10.6) k/uL RBC (4.30-5.90) m/uL Hgb (13.0-17.5) gm/dL Hct (39.0-53.0) % RDW (11.5-15.5) % Neutrophils # (1.3-7.7) k/uL Lymphocytes # (1.0-4.8) k/uL Sodium 135 L (137-145) mmol/L Carbon Dioxide 21 L (22-30) mmol/L BUN 95 H (9-20) mg/dL Creatinine 7.08 H* (0.66-1.25) mg/dL Glucose 110 H (74-99) mg/dL POC Glucose (mg/dL) 132 H (75-99) mg/dL Phosphorus 8.0 H (2.5-4.5) mg/dL Total Bilirubin 1.5 H (0.2-1.3) mg/dL AST 752 H (17-59) U/L ALT 2044 H (4-49) U/L Alkaline Phosphatase 384 H (38-126) U/L Total Protein 5.5 L (6.3-8.2) g/dL Albumin 2.7 L (3.5-5.0) g/dL Vitamin B12 >4000.0 H (211-911) pg/mL 04/13/20 Range/Units 12:39 WBC (3.8-10.6) k/uL RBC (4.30-5.90) m/uL Hgb (13.0-17.5) gm/dL Hct (39.0-53.0) % RDW (11.5-15.5) % Neutrophils # (1.3-7.7) k/uL Lymphocytes # (1.0-4.8) k/uL Sodium (137-145) mmol/L Carbon Dioxide (22-30) mmol/L BUN (9-20) mg/dL Creatinine (0.66-1.25) mg/dL Glucose (74-99) mg/dL POC Glucose (mg/dL) 115 H (75-99) mg/dL Phosphorus (2.5-4.5) mg/dL Total Bilirubin (0.2-1.3) mg/dL AST (17-59) U/L ALT (4-49) U/L Alkaline Phosphatase (38-126) U/L Total Protein (6.3-8.2) g/dL Albumin (3.5-5.0) g/dL Vitamin B12 (211-911) pg/mL Microbiology - Last 24 Hours (Table) 04/11/20 07:22 Urine Culture - Final Urine,Voided Methicillin resist S. aureus 04/11/20 15:12 Blood Culture Gram Stain - Preliminary Blood Blood Culture - Preliminary Presumptive MRSA 04/11/20 15:07 Blood Culture Gram Stain - Preliminary Blood Blood Culture - Preliminary Presumptive MRSA 04/11/20 15:12 Blood Culture - Final Blood 04/11/20 15:07 Blood Culture - Final Blood Assessment and Plan Assessment: #1 sepsis secondary to UTI initiated on levofloxacin 250 mg IV daily. Infectious disease consulted. Blood culture obtained. Patient received 1 L normal saline in the ER. Urine culture pending blood culture pending #2 acute metabolic encephalopathy likely secondary to to sepsis, uremia, pain medication and benzodiazepine. Missed dialysis 2 days. Nephrology consulted for hemodialysis. Hold Dilor noted. Ativan reduced to 0.5 3 times a day. Patient has not received any benzodiazepine in the hospital but did receive 2 doses of dialuadid ordered. #3 end-stage renal disease on hemodialysis Wednesday and Wednesday. Nephrology consulted for dialysis today. Patient hemodynamically is not stable dialysis is not done for more than an hour at the time. #4 fall likely secondary to degenerative disc disease and spinal stenosis MRI done as outpatient that showed severe spinal stenosis. Patient has outpatient orthopedic evaluation pending PTOT consulted #5 acute syncope. Likely vasovagal Patient had a brief CPR as he lost his pulse and became unresponsive. Blood pressure was unobtainable. Cardiac consult placed repeat echo was not indicated, no testing indicate any major ischemia at the time stroke and no major arrhythmia. Patient stated having hypotension with tachycardia with no A. fib. #6 coronary artery disease with previous PTCA to LAD and circumflex. Lexiscan was negative on previous admission. Continue Uloric was, Plavix, Imdur, losartan, metoprolol #7 paroxysmal atrial fibrillation on Eliquis and metoprolol, along with am iodarone 100 mg daily metoprolol dose increased from 25 twice a day #8 ischemic cardiomyopathy: Hold Zaroxolyn and Lasix continue Lopressor, hydralazine, nitro hold hydralazine and was out for systolic less than 120 #9 type 2 diabetes: On Levemir 20 units daily along with NovoLog per sliding scales coverage hold Actos due to concern for acute diastolic heart failure #10 chronic neuropathy: Gabapentin reduced to `100 mg 3 times a day #11 hypertension: Still on metoprolol 25 twice a day losartan 50 mg a day hydralazine 50 mg 3 times a day. Hold losartan and hydralazine systolic less than 120 #12 chronic anemia: On iron and Procrit. #13 GI prophylaxis: Remain on Pepcid. #14 acute hypoxic respiratory failure secondary to volume overload, end-stage renal disease , though acute diastolic heart failure cannot be ruled out ProBNP ordered. #15 DVT prophylaxis: Still on Eliquis. #16 CODE STATUS: Full code
--- NOTE | 2020-04-13 14:34 | PN ---
PROGRESS NOTE The patient is seen for followup for end-stage renal disease. He had not tolerated his treatment yesterday and developed increase in heart rate and increased agitation and therefore he was taken off. This morning patient received Ativan. He was able to get 3 hours and 15 minutes of hemodialysis, however, towards the end of his treatment the patient did developed tachycardia with heart rate going about 115-120 range and blood pressure was down in the 90s systolic. We did run him on low blood flow and dialysate flows in anticipation for hemodynamic instability. This morning patient was seen on dialysis. He was sedated. He was not in any acute distress. Blood pressure at that time was 120/58, heart rate 58 per minute. He was afebrile. Examination of the heart S1, S2. Examination of the lungs, bilateral breath sounds are heard. Abdomen is soft, obese. Examination of lower extremities shows chronic skin changes, chronic edema 2+ bilaterally. ACQUISITION PROFESSIONAL exam cannot be performed. LAB: Show hemoglobin 10.0, sodium 135, potassium 4.0, BUN 95 serum creatinine 7.0. ASSESSMENT: 1. End-stage renal disease, on hemodialysis on a Wednesday, Wednesday, Wednesday schedule. Patient has not been able to get good treatment recently secondary to hemodynamic instability and agitation. He did get a 3 hour 15 minute treatment today. Hopefully his labs will improve. 2. Atrial fibrillation with initially controlled ventricular response, however, heart rate did increase towards the end of dialysis. The patient is being followed by Cardiology. Patient is maintained on oral amiodarone and Lopressor for rate control. 3. Status post cardiac arrest. It was a short episode of asystole, possibility of vasovagal episode by Cardiology being entertained. 4. Ongoing hypotension, rule out any new infection. Hold off on antihypertensive medications while blood pressure is low. 5. Chronic kidney disease mineral bone disorder. PLAN: We will re-evaluate tomorrow for need for dialysis based on labs and mentation and if patient is hemodynamically stable. MMODL / IJN: [id number] /
--- NOTE | 2020-04-13 14:45 | XR ---
EXAMINATION TYPE: XR chest 1V portable DATE OF EXAM: 04/13/2020 COMPARISON: 04/11/2020 HISTORY: Heart failure. Short of breath. TECHNIQUE: Single view FINDINGS: Heart is enlarged. There is some infiltrate and left lower lobe behind the heart. The other lung justice are fairly clear. There is right-sided central venous catheter with tip in the right atr ium. There are chest leads. IMPRESSION: Cardiomegaly. No obvious heart failure. There is probably some new mild infiltrate left lower lobe co mpared to recent exam.
[2020-04-13 18:16] LABS: Glucose,Whole Blood 101 mg/dL (75-99)
--- NOTE | 2020-04-13 18:30 | CONS ---
CONSULTATION DATE OF SERVICE: 04/13/2020. REASON FOR CONSULTATION: MRSA bacteremia. HISTORY OF PRESENT ILLNESS: The patient is a 59-year-old male with a past medical history significant for end-stage renal disease, on hemodialysis Wednesday, Wednesday, Wednesday in this patient who presented to the hospital 3 days ago after apparently the patient fell on the bathroom. EMS was called. The patient mentioned that he is trying to sit up and his legs buckled and gave out on him resulting in a fall. The patient mentioned, did hurt his leg. Patient apparently has been two of his dialysis appointments this week. On presentation to the hospital, the patient did have right subclavian Perma catheter for dialysis. On presentation to the hospital, the patient was afebrile. Did have a low- grade fever of 99 and has been having a low grade fever of 99.8 on a daily basis. The patient did have an elevated white count of 20,000 which is up to 25.4 today and did have elevated liver enzymes. The patient did have blood cultures drawn which came back positive with MRSA that has prompted this Infectious Disease consultation. The patient did have an episode of asystole requiring CPR, but no pressor support on the . The patient has been in the ICU since then. Currently on BIPAP, lethargic, has received some sedation medication and is unable to provide any history. Most of the information has been extracted from review of the chart and talking to the nursing staff. REVIEW OF SYSTEMS: Positive points have been mentioned in HPI. Complete review could not be obtained because of his underlying mental status. PAST MEDICAL HISTORY: End-stage renal disease on hemodialysis. Patient did have history of coronary artery disease, heart failure, diabetes mellitus, gastroesophageal reflux disease, hyperlipidemia, hypertension, IA, disease and syncope. PAST SURGICAL HISTORY: PTCA with stent, dialysis catheter placement, left arm fistula. SOCIAL HISTORY: Remote history of smoking. No drinking or drug use. FAMILY HISTORY: Father history of lung and brain cancer. Mother has diabetes and DVT. ALLERGIES: To PENICILLIN, MORPHINE, OTHER ANTIBIOTICS except Keflex. MEDICATIONS: Currently include the patient is on: Neopit, Zyloprim, Amiodarone, Eliquis, PhosLo, Plavix, Neurontin, hydralazine, NovoLog, Levemir, vancomycin, Pharmacy to dose, Protonix and Kenalog. PHYSICAL EXAMINATION: Blood pressure 132/61 with a pulse of 73, temperature 98.9. He is 95% on a BiPAP. General description is a middle-aged male lying in bed in no distress. No tachypnea or accessory muscles of respiration use. HEENT examination: Slight pallor. No scleral icterus. Oral mucosa could not be examined because of BiPAP. NECK: Trachea central. No megaly. LUNGS: Unlabored breathing, decreased intensity of breath sounds. No wheeze. HEART: S1, S2. Regular rate and rhythm. ABDOMEN: Soft, no tenderness. No guarding. No rigidity. EXTREMITIES: No edema of the feet. The patient right second toe did have slight nephrotic blister. No significant redness or drainage. NEUROLOGIC: The patient is currently sedated and orientation could not be determined. LABS: Hemoglobin is 10.3, white count 5.4. BUN of 95, creatinine 7.08. Liver enzymes are elevated. Urine was positive. [facility]is PCR was negative. Blood culture with MRSA. DIAGNOSTIC IMPRESSION/PLAN: Patient with MRSA bacteremia. Concern is likely for the possible [id number] infection as no other obvious focus of infection. Right 2nd toe with minimal big toe , but no significant inflammatory changes. Clinically not behaving as pneumonia. He did have elevated liver enzymes but ultrasound of the liver did not show any acute process. PLAN: 1. Vancomycin, pharmacy to dose. Target of 15, being managed by pharmacy. 2. Blood cultures daily to document clearance of bacteremia. 3. Removal of the right chest wall pump catheter hopefully will have dialysis tomorrow and send the tip for the culture. 4. We will follow on his clinical condition to further adjust medication if needed. Thank you for this consultation. Will follow this patient along with you. MMODL / IJN: [id number] /
[2020-04-13 23:29] LABS: Glucose,Whole Blood 128 mg/dL (75-99)
[2020-04-14 04:53] LABS: Anisocytosis Slight; HGB 10.8 gm/dL (13.0-17.5); Hypochromasia Slight; MCH 26.7 pg (25.0-35.0); Mean Platelet Volume 7.8; Platelet Count 328 k/uL (150-450); RBC 4.06 m/uL (4.30-5.90); RDW 16.1 % (11.5-15.5); WBC 31.4 k/uL (3.8-10.6)
[2020-04-14 05:07] LABS: Albumin 2.8 g/dL (3.5-5.0); Calcium 9.1 mg/dL (8.4-10.2); Magnesium 2.1 mg/dL (1.6-2.3); Potassium 3.9 mmol/L (3.5-5.1); Total Bilirubin 1.5 mg/dL (0.2-1.3); Total Protein 5.9 g/dL (6.3-8.2)
[2020-04-14 05:10] LABS: Vancomycin,Random 18.1 ug/mL
[2020-04-14 05:28] LABS: C Reactive Protein 266.4 mg/L (<10.0)
[2020-04-14 05:40] LABS: Glucose,Whole Blood 144 mg/dL (75-99)
[2020-04-14] MEDS: INSULIN ASPART (NovoLOG) 100 UNIT/ML VIAL SQ SCH ×4 (05:43→23:49)
[2020-04-14 06:02] LABS: Band Neutrophils % 1 %; Eosinophils # (M) 0.31 k/uL (0-0.7); Lymphocytes # (M) 0.63 k/uL (1.0-4.8); Neutrophils % (M) 90 %; Nucleated Red Blood Cells 0 /100 WBC (0-0); Total Cells Counted 200
[2020-04-14 06:18] LABS: Erythrocyte Sedimentation Rate 95 mm/hr (0-15)
[2020-04-14] MEDS: LORazepam 2 MG/ML INJ IV PRN (06:45)
--- NOTE | 2020-04-14 07:21 | P.PN ---
Subjective Progress Note Date: 04/14/20 Principal diagnosis: Coronary artery disease/paroxysmal atrial fibrillation This is a 59-year-old gentleman with coronary artery disease and prior stenting of the LAD as well as paroxysmal atrial fibrillation as well as end stage renal failure on dialysis who was admitted to the hospital initially with generalized weakness and fatigue and initially he was admitted to the telemetry floor on 3 S but subsequently he was transferred to the intensive care unit because an episode of asystole. The patient was seen today April 142020. Hemodynamically he is a stable and he has been maintaining normal sinus mechanism. He was on norepinephrine but that was stopped. The new interval between yesterday and today is change in mental status and the patient is confused as well as he is combative. He was found to have positive blood culture and currently infectious disease on the case and he is on antibiotic. The change in mental status also could be related to metabolic encephalopathy related to the dialysis. He is on oral anticoagulation. No more episode of atrial fibrillation. The chest x-ray showed new infiltrate in the left lower lobe. Objective - Vital Signs Vital signs: Vital Signs Temp 97.3 F L 04/14/20 04:00 Pulse 71 04/14/20 07:00 Resp 14 04/14/20 07:00 BP 126/59 04/14/20 07:00 Pulse Ox 96 04/14/20 07:00 Intake & Output 04/13/20 04/14/20 04/14/20 18:59 06:59 18:59 Intake Total 360 230 10 Output Total 850 10 Balance -490 220 10 Weight 90.1 kg Intake: IV 360 110 10 KVO 110 110 10 Vancomycin 1,500 mg In 250 Sodium Chloride 0.9% 250 ml @ 125 mls/hr IVPB ONCE ONE Rx#:[id number] Oral 120 Output: Urine 50 10 Hemodialysis 800 Other: Voiding Method Indwelling Catheter Indwelling Catheter - Constitutional General appearance: Present: no acute distress - Respiratory Respiratory: bilateral: diminished - Cardiovascular Rhythm: regular Heart sounds: normal: S1, S2 - Labs CBC & Chem 7: 04/14/20 03:47 04/14/20 03:47 Labs: Abnormal Lab Results - Last 24 Hours (Table) 04/13/20 04/13/20 04/13/20 Range/Units 03:35 12:39 18:14 WBC (3.8-10.6) k/uL RBC (4.30-5.90) m/uL Hgb (13.0-17.5) gm/dL Hct (39.0-53.0) % RDW (11.5-15.5) % Neutrophils # (Manual) (1.3-7.7) k/uL Lymphocytes # (Manual) (1.0-4.8) k/uL Monocytes # (Manual) (0-1.0) k/uL ESR (0-15) mm/hr Sodium (137-145) mmol/L BUN (9-20) mg/dL Creatinine (0.66-1.25) mg/dL Glucose (74-99) mg/dL POC Glucose (mg/dL) 115 H 101 H (75-99) mg/dL Phosphorus (2.5-4.5) mg/dL Total Bilirubin (0.2-1.3) mg/dL AST (17-59) U/L ALT (4-49) U/L Alkaline Phosphatase (38-126) U/L C-Reactive Protein (<10.0) mg/L Total Protein (6.3-8.2) g/dL Albumin (3.5-5.0) g/dL Vitamin B12 >4000.0 H (211-911) pg/mL 04/13/20 04/14/20 04/14/20 Range/Units 23:27 03:47 03:47 WBC 31.4 H (3.8-10.6) k/uL RBC 4.06 L (4.30-5.90) m/uL Hgb 10.8 L (13.0-17.5) gm/dL Hct 35.0 L (39.0-53.0) % RDW 16.1 H (11.5-15.5) % Neutrophils # (Manual) 28.50 H (1.3-7.7) k/uL Lymphocytes # (Manual) 0.63 L (1.0-4.8) k/uL Monocytes # (Manual) 2.20 H (0-1.0) k/uL ESR 95 H (0-15) mm/hr Sodium 135 L (137-145) mmol/L BUN 67 H (9-20) mg/dL Creatinine 5.37 H (0.66-1.25) mg/dL Glucose 135 H (74-99) mg/dL POC Glucose (mg/dL) 128 H (75-99) mg/dL Phosphorus 7.0 H (2.5-4.5) mg/dL Total Bilirubin 1.5 H (0.2-1.3) mg/dL AST 596 H (17-59) U/L ALT 1819 H (4-49) U/L Alkaline Phosphatase 410 H (38-126) U/L C-Reactive Protein 266.4 H (<10.0) mg/L Total Protein 5.9 L (6.3-8.2) g/dL Albumin 2.8 L (3.5-5.0) g/dL Vitamin B12 (211-911) pg/mL 04/14/20 Range/Units 05:39 WBC (3.8-10.6) k/uL RBC (4.30-5.90) m/uL Hgb (13.0-17.5) gm/dL Hct (39.0-53.0) % RDW (11.5-15.5) % Neutrophils # (Manual) (1.3-7.7) k/uL Lymphocytes # (Manual) (1.0-4.8) k/uL Monocytes # (Manual) (0-1.0) k/uL ESR (0-15) mm/hr Sodium (137-145) mmol/L BUN (9-20) mg/dL Creatinine (0.66-1.25) mg/dL Glucose (74-99) mg/dL POC Glucose (mg/dL) 144 H (75-99) mg/dL Phosphorus (2.5-4.5) mg/dL Total Bilirubin (0.2-1.3) mg/dL AST (17-59) U/L ALT (4-49) U/L Alkaline Phosphatase (38-126) U/L C-Reactive Protein (<10.0) mg/L Total Protein (6.3-8.2) g/dL Albumin (3.5-5.0) g/dL Vitamin B12 (211-911) pg/mL Microbiology - Last 24 Hours (Table) 04/13/20 16:55 Blood Culture - Final Blood 04/11/20 15:12 Blood Culture Gram Stain - Final Blood Blood Culture - Final Methicillin resist S. aureus 04/11/20 15:07 Blood Culture Gram Stain - Final Blood Blood Culture - Final Methicillin resist S. aureus 04/11/20 07:22 Urine Culture - Final Urine,Voided Methicillin resist S. aureus Assessment and Plan Assessment: Assessment #1 an episode of asystole could be related to vasovagal #2 paroxysmal atrial fibrillation #3 coronary artery disease #4 end stage renal disease on dialysis #5 positive blood culture #6 change in mental status Plan #1 continue the current dose of metoprolol #2 continue oral anticoagulation #3 infectious disease is on the case regarding possible culture and the patient currently is on antibiotic #4 follow-up with the patient
[2020-04-14] MEDS: AMIODARONE 100 MG TAB PO SCH (07:54)
[2020-04-14] MEDS: METOPROLOL TARTRATE 25 MG TAB PO SCH ×2 (07:54→21:21)
[2020-04-14] MEDS: INSULIN DETEMIR (LEVEMIR) 100 UNIT/ML SYR SQ SCH (07:54)
[2020-04-14] MEDS: ISOSORBIDE MONONITRATE ER 30 MG TAB.ER.24H PO SCH (07:54)
[2020-04-14] MEDS: GABAPENTIN 100 MG CAP PO SCH ×3 (07:54→21:20)
[2020-04-14] MEDS: allopurinoL 100 MG TAB PO SCH (07:55)
[2020-04-14] MEDS: CLOPIDOGREL 75 MG TAB PO SCH (07:55)
[2020-04-14] MEDS: PANTOPRAZOLE 40 MG TABLET PO SCH (07:55)
[2020-04-14] MEDS: HYDROcodone/APAP 10-325MG 1 EACH TAB PO PRN ×2 (07:55→21:33)
[2020-04-14] MEDS: APIXABAN 2.5 MG TABLET PO SCH ×2 (07:55→21:21)
[2020-04-14] MEDS ORDERED: VANCOMYCIN 1,500 MG in SODIUM CHLORIDE 0.9% 250 ML IVPB ONE (08:00)
[2020-04-14 08:37] LABS: Glucose,Whole Blood 139 mg/dL (75-99)
--- NOTE | 2020-04-14 09:22 | P.PN ---
Subjective Progress Note Date: 04/14/20 This is a 59-year-old white male admitted on 04/11/2020, admitted mostly with a diagnosis of sepsis and urinary tract infection, patient is known to have history of multiple medical problems, and has been falling recently quite frequently, is also known to have history of end-stage renal disease, on hemo dialysis for the last 3 years, and he has a dialysis catheter in his right subclavian placed apparently a few weeks ago. He did have previous history of left AV fistula which has been nonfunctional recently and that is why he had a subclavian dialysis catheter. Patient is primarily a patient with Dr. Mckeon, he receives dialysis is normally on Wednesday and Wednesday, he had previous history of coronary artery disease and previous angioplasty, stent placement. His other medical problems include chronic atrial fibrillation diabetes dyslipidemia hypertension, and diabetic neuropathy. This time the patient was admitted mostly with mental status change, multiple falls at home, apparently had a recent fall in the bathroom and had trauma CT of the head was unremarkable on admission. Patient missed 2 dialysis appointments and in the ER his blood pressure was significantly elevated at 202/94. He had a low-grade fever, he had a relatively normal electrolytes, blood sugar was 237, and his urinalysis showed pyuria and bacteriuria. Hence patient was admitted mostly with the impression of UTI and sepsis. At 2:30 this afternoon, patient was receiving dialysis, as soon as dialysis was started, patient had a sudden episode of unresponsiveness, he was pulseless according to the team responded to him. Patient had less than 2 minutes of CPR, that there was return of spontaneous circulation, and return of pulse. No monitor was noted at the time, but by the time he woke up, patient was in atrial fibrillation with fairly controlled rhythm. Patient was transferred to the ICU, placed on a nonrebreather mask hemodynamically stable, I was asked to see him on consultation since he was transferred to the intensive care unit. Seen in the ICU, patient is on a nonrebreather mask, which I will transition to a high flow nasal cannula, patient is hemodynamically stable, he was in normal sinus rhythm, and he is a bit lethargic, but arousable, and follows all instructions. Labs from today were all reviewed. Again noted to have leukocytosis with WBC count 20.2, hemoglobin is 9.9. Troponin is 0.118, and his urine did show evidence of bacteriuria and pyuria. Reevaluated today on 04/12/2019, patient remains in the ICU, he had another episode of near syncope yesterday, patient was noted to become hypotensive upon connection to the dialysis machine. Patient had to be Ambu bag, did not require CPR this time, he had a pulse, but he was hypotensive. I saw the patient shortly after that episode, and his blood pressure was marginal. Recommended starting the patient on norepinephrine and recommended that we proceed with his hemodialysis. Patient did well overnight, did not have any further episodes, tolerated the hemodialysis well yesterday. Presently asymptomatic, patient has paroxysmal atrial fibrillation, but presently in sinus rhythm. On BiPAP which I will discontinue and place on a nasal cannula, and it will be titrated accordingly. Patient is definitely more awake today, alert and oriented 3. However his blood cultures are positive for gram-positive cocci, final identification is not available, and his urine from 04/11 was positive for presumptive staph aureus. Hence we will recommend empirically starting the patient on vancomycin, and we will initiate infectious disease consultation on this patient. Obviously the patient may have a positive urinary tract infection with gram-positive bacteremia. During my evaluation of this patient, he was undergoing dialysis, and he seems to be tolerating that quite well. His WBC count is 18.4 hemoglobin is 9.9. Electrolytes are normal bicarb is 19 BUN is 104 creatinine 8.15. Liver enzymes were noted to be elevated, his AST is 2932 and his ALT is 2723 with alkaline phosphatase of 449 could be related to hypoperfusion at the time when the patient had episodes of low blood pressure and at one point he had no pulse according to the team responded to his code. Chest x-ray showed evidence of mild interstitial edema, suspect diastolic congestive heart failure or pulmonary edema secondary to his underlying chronic renal disease Reevaluated today on 04/13/2020, patient remains in the ICU, presently undergoing hemodialysis. Patient remains hemodynamically stable, off BiPAP, seems to have intermittent atrial fibrillation that seems to improve once he goes on BiPAP. ABG did not reflect hypercapnia at any point. Patient is on oral anticoagulation therapy, he is not requiring norepinephrine anymore. Denies any chest pain or discomfort, no episodes of asystole over the last 24 hours, and no episodes of syncope or near syncope. Patient is intermittently confused and requires sedation and soft restraints blood cultures are now positive for MRSA and the patient is now on vancomycin and Levaquin. Potential sources for his MRSA bacteremia could be that his dialysis catheter or right second toe which shows some area of necrosis. Infectious disease has been consulted. For his agitation patient is requiring Ativan every 4 hours. As needed. Pulmonary-webb remains on 2 L nasal cannula or at times on BiPAP at 50% FiO2 with IPAP of 12 and EPAP of 5. On 04/14/2020 the patient is being seen in follow-up in the intensive care unit. The patient this morning is on a BiPAP at a pressure of 12/6 cm of water and Fi O2 of 40%. The patient was in pulmonary edema at a time of his admission. He required dialysis since he has been an and that is an improvement in his overall volume status. The patient had no chest x-ray today. The chest x-ray from yesterday showedNo acute abnormalities. There may be some small left-sided pleural effusion. He has a permacath in his right. His last session of hemodialysis was yesterday. Dialysis session to be cut short because of low blood pressure and a chest fibrillation with rapid ventricular response. This morning, his blood pressure is stable on no pressors. He is in in sinus rhythm. He was on norepinephrine infusion yesterday for blood pressure support and this has been also discontinued. The most recent blood cultures negative and the patient remains on vancomycin. He was having possible causes earlier in the most recent possible cultures from the 2020. Neurologically, he is impaired and at times agitated requiring Ativan and the CAT scan of the brain and the cervical spine that was done, admission was was within normal limits. His echocardiogram showed an ejection fraction of 55-60%, mild aortic sclerosis, no pericardial effusion, not abnormalities otherwise. Objective - Vital Signs Vital signs: Vital Signs Temp 97.1 F L 04/14/20 08:00 Pulse 71 04/14/20 08:00 Resp 24 04/14/20 08:00 BP 140/91 04/14/20 08:00 Pulse Ox 95 04/14/20 08:00 Intake & Output 04/13/20 04/14/20 04/14/20 18:59 06:59 18:59 Intake Total 360 230 195 Output Total 850 10 10 Balance -490 220 185 Weight 90.1 kg Intake: IV 360 110 195 KVO 110 110 20 Levofloxacin 250Mg-D5w 50 Pmx 250 mg In Dextrose/ Water 1 50ml.bag @ 50 mls /hr IVPB Q48H [facility] Rx#: [id number] Vancomycin 1,500 mg In 250 Sodium Chloride 0.9% 250 ml @ 125 mls/hr IVPB ONCE ONE Rx#:[id number] Vancomycin 1,500 mg In 125 Sodium Chloride 0.9% 250 ml @ 125 mls/hr IVPB ONCE ONE Rx#:[id number] Oral 120 Output: Urine 50 10 10 Hemodialysis 800 Other: Voiding Method Indwelling Catheter Indwelling Catheter - Exam Physical Exam: Revealed 59-year-old white male obese, in no distress, remains on BiPAP at a pressure of 12/6 cm of water with an FiO2 of 40% Head: Atraumatic, normocephalic. HEENT:[Neck is supple.] [No neck masses.] [No thyromegaly.] [No JVD.] Patient has a Mallampati class IV. Chest: Symmetrical chest expansion. Diminished breath sounds at the bases no rhonchi and no wheezes. Cardiac Exam: [Normal S1 and S2, no S3 gallop, no murmur.] Abdomen: The skull, [Soft, nontender, no megaly, no rebound, no guarding, normal bowel sounds.] Extremities: [No clubbing, no edema, no cyanosis.] Evidence of necrosis of the right second toe at the tip. AV fistula noted in left upper extremity. Right subclavian dialysis catheter noted. Neurological Exam: Patient is confused and occasionally agitated. He is moving all 4 extremities without any limitation. He moans. He becomes at times aggressive. Overall he has required Ativan in order of 1 mg every 8 hours. Psychiatric: normal mood affect and normal mental status examination. Skin: No rashes. Except for necrosis noted at dorsal aspect of the tip of the right second toe is of a dried-up blister. There is also calluses on his first large toe on the right. - Labs CBC & Chem 7: 04/14/20 03:47 04/14/20 03:47 Labs: Abnormal Lab Results - Last 24 Hours (Table) 04/13/20 04/13/20 04/13/20 Range/Units 03:35 12:39 18:14 WBC (3.8-10.6) k/uL RBC (4.30-5.90) m/uL Hgb (13.0-17.5) gm/dL Hct (39.0-53.0) % RDW (11.5-15.5) % Neutrophils # (Manual) (1.3-7.7) k/uL Lymphocytes # (Manual) (1.0-4.8) k/uL Monocytes # (Manual) (0-1.0) k/uL ESR (0-15) mm/hr Sodium (137-145) mmol/L BUN (9-20) mg/dL Creatinine (0.66-1.25) mg/dL Glucose (74-99) mg/dL POC Glucose (mg/dL) 115 H 101 H (75-99) mg/dL Phosphorus (2.5-4.5) mg/dL Total Bilirubin (0.2-1.3) mg/dL AST (17-59) U/L ALT (4-49) U/L Alkaline Phosphatase (38-126) U/L C-Reactive Protein (<10.0) mg/L Total Protein (6.3-8.2) g/dL Albumin (3.5-5.0) g/dL Vitamin B12 >4000.0 H (211-911) pg/mL 04/13/20 04/14/20 04/14/20 Range/Units 23:27 03:47 03:47 WBC 31.4 H (3.8-10.6) k/uL RBC 4.06 L (4.30-5.90) m/uL Hgb 10.8 L (13.0-17.5) gm/dL Hct 35.0 L (39.0-53.0) % RDW 16.1 H (11.5-15.5) % Neutrophils # (Manual) 28.50 H (1.3-7.7) k/uL Lymphocytes # (Manual) 0.63 L (1.0-4.8) k/uL Monocytes # (Manual) 2.20 H (0-1.0) k/uL ESR 95 H (0-15) mm/hr Sodium 135 L (137-145) mmol/L BUN 67 H (9-20) mg/dL Creatinine 5.37 H (0.66-1.25) mg/dL Glucose 135 H (74-99) mg/dL POC Glucose (mg/dL) 128 H (75-99) mg/dL Phosphorus 7.0 H (2.5-4.5) mg/dL Total Bilirubin 1.5 H (0.2-1.3) mg/dL AST 596 H (17-59) U/L ALT 1819 H (4-49) U/L Alkaline Phosphatase 410 H (38-126) U/L C-Reactive Protein 266.4 H (<10.0) mg/L Total Protein 5.9 L (6.3-8.2) g/dL Albumin 2.8 L (3.5-5.0) g/dL Vitamin B12 (211-911) pg/mL 04/14/20 04/14/20 Range/Units 05:39 08:36 WBC (3.8-10.6) k/uL RBC (4.30-5.90) m/uL Hgb (13.0-17.5) gm/dL Hct (39.0-53.0) % RDW (11.5-15.5) % Neutrophils # (Manual) (1.3-7.7) k/uL Lymphocytes # (Manual) (1.0-4.8) k/uL Monocytes # (Manual) (0-1.0) k/uL ESR (0-15) mm/hr Sodium (137-145) mmol/L BUN (9-20) mg/dL Creatinine (0.66-1.25) mg/dL Glucose (74-99) mg/dL POC Glucose (mg/dL) 144 H 139 H (75-99) mg/dL Phosphorus (2.5-4.5) mg/dL Total Bilirubin (0.2-1.3) mg/dL AST (17-59) U/L ALT (4-49) U/L Alkaline Phosphatase (38-126) U/L C-Reactive Protein (<10.0) mg/L Total Protein (6.3-8.2) g/dL Albumin (3.5-5.0) g/dL Vitamin B12 (211-911) pg/mL Microbiology - Last 24 Hours (Table) 04/13/20 16:55 Blood Culture - Final Blood 04/11/20 15:12 Blood Culture Gram Stain - Final Blood Blood Culture - Final Methicillin resist S. aureus 04/11/20 15:07 Blood Culture Gram Stain - Final Blood Blood Culture - Final Methicillin resist S. aureus 04/11/20 07:22 Urine Culture - Final Urine,Voided Methicillin resist S. aureus Assessment and Plan Plan: 1 Acute hypoxic respiratory failure secondary to MRSA sepsis and a component of a possible acute diastolic congestive heart failure/ fluid overload 2 MRSA bacteremia and sepsis, source is not clear, could be from the dialysis c atheter 3 Cardiac arrest, possible asystole or possible pulseless electrical activity, brief, responded to 2 minutes of CPR. 4 Chronic end-stage renal disease on hemodialysis, noncompliant and has been skipping dialysis. 5 Recurrent falls, could be related to his diabetic neuropathy/peripheral diabetic neuropathy or could be cardiac in nature with cardiac arrhythmia, needs to be further investigated. 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 8 Chronic anemia secondary to chronic renal disease. 9 Suspect some component of obstructive sleep apnea syndrome. 10 Morbid obesity. 11 Right second toe cellulitis with necrosis of the dorsal tip 12 Abnormal liver enzymes, possible shock liver. Related to his cardiac arrest. 13 leukocytosis and a white cell count is on the rise 14 altered mental status, metabolic encephalopathy. Recommendation: Continue monitoring the mental status and the patient is quite encephalopathic probably related to his underlying sepsis Continue vancomycin Sent another 2 sets of blood cultures, peripheral to confirm negativity knowing that his most his blood culture from 04/13/2020 came back negative. Clinically however the patient is acting septic still with high white count and encephalopathy Intermittent placement on BiPAP as needed. Obviously the patient can be switched to a nasal cannula Monitor the blood culture and obviously the right permacath may need to be removed as there is no other source of his underlying septicemia and this will be discussed with nephrology and infectious disease. Continue hemodialysis per nephrology Continue to monitor liver enzymes. Continue to monitor in the ICU. Critical care evaluation more than 30 minutes. Time with Patient: Greater than 30
[2020-04-14] MEDS: hydrALAZINE HCL 50 MG TAB PO SCH ×4 (09:23→21:22)
[2020-04-14] MEDS: LEVOFLOXACIN 250MG-D5W PMX 250 MG in DEXTROSE/WATER 1 50ML.BAG IVPB SCH (09:23)
[2020-04-14 11:29] LABS: Glucose,Whole Blood 161 mg/dL (75-99)
--- NOTE | 2020-04-14 11:49 | P.PN ---
Subjective Progress Note Date: 04/14/20 Principal diagnosis: Fall, generalized weakness, syncope sepsis UTI, ischemic cardiomyopathy, hypertension on vasopressor 59 years old male patient of Dr. Mckeon with past medical history of end-stage renal disease on hemodialysis Wednesday and Wednesday, coronary artery disease post angioplasty, and stent placement last catheterization was February 09 with stent of the left circumflex and proximal LAD, atrial fibrillation, diabetes, GERD, hyperlipidemia, hypertension. He does have intermittent lesion along the mid LAD and follows Dr. Hinojosa on as outpatient. Patient was last admitted in February 16 with chest pain and unstable angina, comes in this time with change in mental status, and multiple falls at home. Patient is unable to provide any history due to increased drowsiness. History obtained from the chart. It appears patient had a fall in the bathroom as his leg gave out. He denies any dizziness or syncope episode. CT of the head was o btained that showed no acute lesions. Patient missed 2 dialysis appointment, last hemodialysis was 1 week ago. In the ER patient's blood pressure was 202/94 temp of 99 pulse 91 and respiratory rate 19 on assessment of patient's lab patient had a any, hemoglobin 10.7 hematocrit 32.4 sodium 133 chloride 92 bicarb 21 BUN 86 creatinine 7.56 glucose 237. Urinalysis does suggest leukocytosis with positive blood and positive protein. Urine culture was sent. On evaluation today patient is found to be lying in bed. He is unable to provide any history. Patient did Gabapentin, Dilaudid and 1 L of bolus of IV fluids. We will hold pain medication. Decrease gabapentin 100 3 times a day. Patient will be started on levofloxacin renally adjusted to 250 every 48 hours. Ativan reduced to 0.5 mg 3 times a day. Hold off diuretics. Nephrology consulted At 2:30 this afternoon patient became unresponsive as patient was hooked to the dialysis. The A team responded to the patient did mention patient was pulseless. A brief CPR was done for 2 minutes, with return of spontaneous circulation and return of the pulse with no need of epinephrine. Patient's blood pressure was found to be low. Cardiology consult will be placed. Echo will be ordered. Patient was noted to be in atrial fibrillation and was transferred to the ICU on nonrebreather mask. Another attempt was made to start the hemodialysis while patient was arousable and follows all commands he was found to be more lethargic. Patient's blood pressure dropped on hemodialysis and became unresponsive not responding to sternal rub. Was noted to be in A. fib with RVR. Patient was placed on BiPAP intubation was not required. 04/12 patient currently in the ICU. Vitals are stable with temp of 98 pulse 67 and respiratory rate 19 and blood pressure 156/71 oxygen saturation 95% on 40% on BiPAP. Patient has leukocytosis of 18 improved from 20 hemoglobin 9.9, sodium 134 chloride 97 bicarb 19 BUN 104 creatinine 8.15 phosphorus 10.7 and total bilirubin 1.7 AST 2932 ALT 2727 alkaline phosphatase 449. Cardiology evaluated the patient thinks patient's episode of unresponsiveness could be vasovagal from low blood pressure. Continue to monitor patient's blood pressure with possible orthostatics when patient is stable. Metoprolol dose increased to 25 twice a day. Initiated on amiodarone 100 mg daily patient is being dialyzed today with minimal ultrafiltration. We will hold hydralazine and Cozaar for systolic less than 125. Patient currently off pressors. Spoke to patient's at bedside who mentioned patient has been falling for the past few months. He had MRI of the lower back done as outpatient that suggested severe spinal stenosis. Patient was set up for PT as outpatient but has been forgetting to often due to weakness in his legs. He has a outpatient appointment pending with an orthopedic surgery 04/13: Patient still in the ICU , on BiPAP, he still have less responsiveness, quite hypertensive today back on vasopressor. Patient was diagnosed tolerate hemodialysis for long had only 1 hour, still currently in significant encephalopathy status, continue IV antibiotic for now there is a small gangren ous spot on the right second toe. 04/14: Patient is off vasopressor, still on BiPAP, still running back and forth between tachycardia and A. fib. No hemodialysis done today. Patient is very confused is taking his lines And all attachment out he required a sitter today. Objective - Vital Signs Vital signs: Vital Signs Temp 97.1 F L 04/14/20 08:00 Pulse 65 04/14/20 11:00 Resp 11 L 04/14/20 11:00 BP 109/56 04/14/20 11:00 Pulse Ox 97 04/14/20 11:00 Intake & Output 04/13/20 04/14/20 04/14/20 18:59 06:59 18:59 Intake Total 360 230 340 Output Total 850 10 25 Balance -490 220 315 Weight 90.1 kg Intake: IV 360 110 340 KVO 110 110 40 Levofloxacin 250Mg-D5w 50 Pmx 250 mg In Dextrose/ Water 1 50ml.bag @ 50 mls /hr IVPB Q48H [facility] Rx#: [id number] Vancomycin 1,500 mg In 250 Sodium Chloride 0.9% 250 ml @ 125 mls/hr IVPB ONCE ONE Rx#:[id number] Vancomycin 1,500 mg In 250 Sodium Chloride 0.9% 250 ml @ 125 mls/hr IVPB ONCE ONE Rx#:[id number] Oral 120 Output: Urine 50 10 25 Hemodialysis 800 Other: Voiding Method Indwelling Catheter Indwelling Catheter Indwelling Catheter - Exam Review of Systems Constitutional: Denies chills, Denies fever, endorses lethargy and weakness Eyes: denies decreased vision, denies diplopia, denies discharge, denies pain Ears: deny: decreased hearing Ears, nose, mouth and throat: Denies dental pain, Denies headache, Denies nasal discharge, Denies nose pain Cardiovascular: Denies chest pain, Denies decreased exercise tolerance, Denies edema, Denies high blood pressure, Denies irregular heart beat, Denies palpitations, Denies paroxysmal nocturnal dyspnea, Denies rapid heart beat, Denies shortness of breath Respiratory: Denies congestion, Denies cough, Denies cough with sputum, Denies dyspnea, Denies home oxygen, Denies wheezing Gastrointestinal: Denies abdominal pain, Denies change in bowel habits, Denies coffee ground emesis, Denies early satiety, Denies excessive gas, Denies heartburn, Denies hematemesis, Denies hematochezia, Denies loss of appetite, Denies nausea, Denies vomiting Genitourinary: Denies dysuria, Denies flank pain, Denies kidney stones, Denies menorrhagia, Denies urgency, Denies urinary frequency Musculoskeletal: Endorses gait instability and multiple falls Integumentary: Denies rash, Denies wounds, Denies brittle nails, Denies change in hair/nails, Denies darkening of skin Neurological: Endorses balance difficulties, Denies change in speech, Denies double vision, Denies gait dysfunction, Denies loss of vision, Denies motor disturbance, Denies numbness, Denies paralysis, Denies paresthesias, Denies seizures Psychiatric: Denies anxiety, Denies depression Endocrine: Denies excessive sweating, Denies excessive thirst, Denies high blood sugars, Denies palpitations Hematologic/Lymphatic: Denies easy bruising, Denies lymphadenopathy Physical examination: General Appearance: Less responsiveness in bed, in no distress still using BiPAP Neck HEENT: Supple, no lymphadenopathy, no thyroid enlargement, no carotid bruits. Lungs: Decreased breath some bilaterally fine rhonchi positive mild crackles in the bases especially the right side. Chest Wall: Decrease expansion with deep inspiration no tenderness and no deformity was found on exam, no costochondral pain or discomfort. Heart: Irregular rate and rhythm, S1, S2 positive tachycardia no murmur or rub. Back: Symmetric, no curvature, ROM normal, no CVA tenderness. Abdomen: Soft, non-tender, bowel sounds active all four quadrants, no masses, no organomegaly. Extremities: Extremities normal, atraumatic, no cyanosis or edema. Right second toe has small area looks like thrombus gangrene. Pulses: 2+ and symmetric. Skin: Skin color, texture, tugor normal, no rashes or lesions. Neurologic: Alert with confusion cranial nerves II through XII intact, positive generalized weakness not been able to do gait exam. - Labs CBC & Chem 7: 04/14/20 03:47 04/14/20 03:47 Labs: Abnormal Lab Results - Last 24 Hours (Table) 04/13/20 04/13/20 04/13/20 Range/Units 12:39 18:14 23:27 WBC (3.8-10.6) k/uL RBC (4.30-5.90) m/uL Hgb (13.0-17.5) gm/dL Hct (39.0-53.0) % RDW (11.5-15.5) % Neutrophils # (Manual) (1.3-7.7) k/uL Lymphocytes # (Manual) (1.0-4.8) k/uL Monocytes # (Manual) (0-1.0) k/uL ESR (0-15) mm/hr Sodium (137-145) mmol/L BUN (9-20) mg/dL Creatinine (0.66-1.25) mg/dL Glucose (74-99) mg/dL POC Glucose (mg/dL) 115 H 101 H 128 H (75-99) mg/dL Phosphorus (2.5-4.5) mg/dL Total Bilirubin (0.2-1.3) mg/dL AST (17-59) U/L ALT (4-49) U/L Alkaline Phosphatase (38-126) U/L C-Reactive Protein (<10.0) mg/L Total Protein (6.3-8.2) g/dL Albumin (3.5-5.0) g/dL 04/14/20 04/14/20 04/14/20 Range/Units 03:47 03:47 05:39 WBC 31.4 H (3.8-10.6) k/uL RBC 4.06 L (4.30-5.90) m/uL Hgb 10.8 L (13.0-17.5) gm/dL Hct 35.0 L (39.0-53.0) % RDW 16.1 H (11.5-15.5) % Neutrophils # (Manual) 28.50 H (1.3-7.7) k/uL Lymphocytes # (Manual) 0.63 L (1.0-4.8) k/uL Monocytes # (Manual) 2.20 H (0-1.0) k/uL ESR 95 H (0-15) mm/hr Sodium 135 L (137-145) mmol/L BUN 67 H (9-20) mg/dL Creatinine 5.37 H (0.66-1.25) mg/dL Glucose 135 H (74-99) mg/dL POC Glucose (mg/dL) 144 H (75-99) mg/dL Phosphorus 7.0 H (2.5-4.5) mg/dL Total Bilirubin 1.5 H (0.2-1.3) mg/dL AST 596 H (17-59) U/L ALT 1819 H (4-49) U/L Alkaline Phosphatase 410 H (38-126) U/L C-Reactive Protein 266.4 H (<10.0) mg/L Total Protein 5.9 L (6.3-8.2) g/dL Albumin 2.8 L (3.5-5.0) g/dL 04/14/20 04/14/20 Range/Units 08:36 11:28 WBC (3.8-10.6) k/uL RBC (4.30-5.90) m/uL Hgb (13.0-17.5) gm/dL Hct (39.0-53.0) % RDW (11.5-15.5) % Neutrophils # (Manual) (1.3-7.7) k/uL Lymphocytes # (Manual) (1.0-4.8) k/uL Monocytes # (Manual) (0-1.0) k/uL ESR (0-15) mm/hr Sodium (137-145) mmol/L BUN (9-20) mg/dL Creatinine (0.66-1.25) mg/dL Glucose (74-99) mg/dL POC Glucose (mg/dL) 139 H 161 H (75-99) mg/dL Phosphorus (2.5-4.5) mg/dL Total Bilirubin (0.2-1.3) mg/dL AST (17-59) U/L ALT (4-49) U/L Alkaline Phosphatase (38-126) U/L C-Reactive Protein (<10.0) mg/L Total Protein (6.3-8.2) g/dL Albumin (3.5-5.0) g/dL Microbiology - Last 24 Hours (Table) 04/13/20 16:55 Blood Culture Gram Stain - Preliminary Blood 04/13/20 16:55 Blood Culture - Final Blood 04/11/20 15:12 Blood Culture Gram Stain - Final Blood Blood Culture - Final Methicillin resist S. aureus 04/11/20 15:07 Blood Culture Gram Stain - Final Blood Blood Culture - Final Methicillin resist S. aureus 04/11/20 07:22 Urine Culture - Final Urine,Voided Methicillin resist S. aureus Assessment and Plan Assessment: #1 sepsis secondary to UTI initiated on levofloxacin 250 mg IV daily. Infect ious disease consulted. Blood culture obtained. Patient received 1 L normal saline in the ER. Urine culture pending blood culture pending, patient still not stable hemodynamically still require BiPAP is off vasopressor this point. #2 acute metabolic encephalopathy likely secondary to to sepsis, uremia, pain medication and benzodiazepine. Missed dialysis 2 days. Nephrology consulted for hemodialysis. Hold Dilor noted. Ativan reduced to 0.5 3 times a day. Patient has not received any benzodiazepine in the hospital but did receive 2 doses of dialuadid ordered. #3 end-stage renal disease on hemodialysis Wednesday and Wednesday. Nephrology consulted for dialysis today. Patient hemodynamically is not stable dialysis is not done for more than an hour at the time. A Farhad will have dialysis tomorrow #4 fall likely secondary to degenerative disc disease and spinal stenosis MRI done as outpatient that showed severe spinal stenosis. Patient has outpatient orthopedic evaluation pending PTOT consulted #5 acute syncope. Likely vasovagal Patient had a brief CPR as he lost his pulse and became unresponsive. Blood pressure was unobtainable. Cardiac consult placed repeat echo was not indicated, no testing indicate any major ischemia at the time stroke and no major arrhythmia. Patient stated having hypotension with tachycardia with no A. fib. #6 coronary artery disease with previous PTCA to LAD and circumflex. Lexiscan was negative on previous admission. Continue Uloric was, Plavix, Imdur, losartan, metoprolol #7 paroxysmal atrial fibrillation on Eliquis and metoprolol, along with amiodarone 100 mg daily metoprolol dose increased from 25 twice a day his A. fib still running on and off. #8 ischemic cardiomyopathy: Hold Zaroxolyn and Lasix continue Lopressor, hydralazine, nitro hold hydralazine and was out for systolic less than 120 #9 type 2 diabetes: On Levemir 20 units daily along with NovoLog per sliding scales coverage hold Actos due to concern for acute diastolic heart failure #10 chronic neuropathy: Gabapentin reduced to `100 mg 3 times a day #11 hypertension: Still on metoprolol 25 twice a day losartan 50 mg a day hydralazine 50 mg 3 times a day. Hold losartan and hydralazine systolic less than 120 #12 chronic anemia: On iron and Procrit. #13 GI prophylaxis: Remain on Pepcid. #14 acute hypoxic respiratory failure secondary to volume overload, end-stage renal disease , a Chin still on BiPAP on high flow O2. #15 DVT prophylaxis: Still on Eliquis. #16 CODE STATUS: Full code
--- NOTE | 2020-04-14 12:54 | PN ---
PROGRESS NOTE Patient is seen for followup for end-stage renal disease. The patient tolerated his treatment for about 3 hours 15 minutes yesterday. He did go back into atrial fibrillation with RVR. Currently maintained on low-dose Levophed. The patient remains confused. BUN and creatinine have decreased. Blood cultures positive for MRSA as of 04/11. Repeat blood cultures from April 13, are negative thus far. PHYSICAL EXAMINATION: On examination today, blood pressure was 123/66, heart rate 64 per minute. He is afebrile. Patient is confused. He is not in acute distress. He will be placed on BiPAP. Examination of the heart S1, S2. Examination of lungs: Decreased breath sounds at bases, PermCath site does not have any drainage. Abdomen is soft. Examination of lower extremities chronic skin changes, edema 2+ bilaterally. HOME SERVICE CONSULTANT exam shows patient is confused. He is moving all 4 extremities. LAB: Show sodium 135, potassium 3.9, chloride 98, BUN 67, creatinine 5.37, magnesium 2.1, albumin 2.8, random vancomycin level 18.1. Repeat blood cultures from April 13 are negative thus far. ASSESSMENT: 1. End-stage renal disease, on hemodialysis on a Wednesday, Wednesday, Wednesday schedule. We will arrange for hemodialysis again tomorrow. The patient did not have good treatments last week secondary to hemodynamic instability with atrial fibrillation. He did tolerate his treatment yesterday and we will plan for another session tomorrow. 2. Volume overload, currently improved. 3. MRSA bacteremia with evidence of MRSA in the urine as well. Currently maintained on vancomycin. Possibility of PermCath being infected. We will repeat blood cultures during dialysis tomorrow. 4. Mental status changes, confusion, possibly related to sepsis. BUN, creatinine were significantly elevated. However, this is improved post dialysis yesterday. 5. Atrial fibrillation with an RVR maintained on amiodarone and Lopressor for rate control. 6. Chronic kidney disease mineral bone disorder. PLAN: Hemodialysis in a.m. Continue antibiotics. Check blood cultures during dialysis. MMODL / IJN: [id number] /
[2020-04-14] MEDS: NOREPINEPHRINE 4 MG in SODIUM CHLORIDE 0.9% 250 ML IV SCH ×2 (14:31→23:51)
[2020-04-14 16:47] LABS: Glucose,Whole Blood 155 mg/dL (75-99)
--- NOTE | 2020-04-14 20:05 | PN ---
PROGRESS NOTE DATE OF SERVICE: 04/14/2020 REASON FOR FOLLOWUP: MRSA bacteremia. INTERVAL HISTORY: Patient is currently afebrile. The patient is less agitated per the nursing staff. The patient remains to be on the BiPAP. No vomiting, diarrhea or any other changes reported by the nursing staff. PHYSICAL EXAMINATION: Blood pressure 135/68 with a pulse of 56, temperature is 97.1. He is 100% on 40% FiO2. GENERAL DESCRIPTION is a middle-aged male lying in bed in no distress. RESPIRATORY SYSTEM: Unlabored breathing with decreased intensity of breath sounds. No wheeze. HEART: S1, S2. Regular rate and rhythm. ABDOMEN: Soft. No tenderness. LABS: Hemoglobin is 10.8, white count 14.4, BUN of 77, creatinine is 5.37. Blood cultures with MRSA. DIAGNOSTIC IMPRESSION AND PLAN: Patient with MRSA bacteremia, source likely right Iqap-[id number]-Efzcjwau infection and would benefit from removal of the same. Covered with vancomycin. Family at the bedside. Questions were answered. MMODL / IJN: [id number] /
[2020-04-14] MEDS: LOSARTAN 50 MG TAB PO SCH (21:20)
[2020-04-14 23:41] LABS: Glucose,Whole Blood 148 mg/dL (75-99)
[2020-04-15 04:25] LABS: Anisocytosis Slight; Basophils # (A) 0.1 k/uL (0-0.2); Basophils % (A) 0 %; Eosinophils # (A) 0.3 k/uL (0-0.7); Eosinophils % (A) 1 %; HCT 33.8 % (39.0-53.0); HGB 10.2 gm/dL (13.0-17.5); Hypochromasia Slight; Lymphocytes # (A) 0.7 k/uL (1.0-4.8); Lymphocytes % (A) 2 %; MCH 26.5 pg (25.0-35.0); MCHC 30.3 g/dL (31.0-37.0); MCV 87.5 fL (80.0-100.0); Mean Platelet Volume 7.5; Monocytes # (A) 1.2 k/uL (0-1.0); Monocytes % (A) 4 %; Neutrophils # (A) 29.4 k/uL (1.3-7.7); Neutrophils % (A) 91 %; Platelet Count 310 k/uL (150-450); RBC 3.86 m/uL (4.30-5.90); RDW 16.3 % (11.5-15.5); WBC 32.3 k/uL (3.8-10.6)
[2020-04-15 04:35] LABS: Albumin 2.5 g/dL (3.5-5.0); Calcium 8.7 mg/dL (8.4-10.2); Potassium 3.8 mmol/L (3.5-5.1); Total Bilirubin 1.2 mg/dL (0.2-1.3); Total Protein 5.3 g/dL (6.3-8.2)
[2020-04-15 05:39] LABS: Glucose,Whole Blood 144 mg/dL (75-99)
[2020-04-15] MEDS: INSULIN ASPART (NovoLOG) 100 UNIT/ML VIAL SQ SCH ×5 (05:41→20:40)
[2020-04-15] MEDS: INSULIN DETEMIR (LEVEMIR) 100 UNIT/ML SYR SQ SCH (09:06)
[2020-04-15] MEDS: AMIODARONE 100 MG TAB PO SCH (09:07)
[2020-04-15] MEDS: APIXABAN 2.5 MG TABLET PO SCH ×2 (09:07→20:40)
[2020-04-15] MEDS: METOPROLOL TARTRATE 25 MG TAB PO SCH ×2 (09:07→20:39)
[2020-04-15] MEDS: CLOPIDOGREL 75 MG TAB PO SCH (09:08)
[2020-04-15] MEDS: allopurinoL 100 MG TAB PO SCH (09:15)
[2020-04-15] MEDS: GABAPENTIN 100 MG CAP PO SCH ×3 (09:15→20:40)
[2020-04-15] MEDS: PANTOPRAZOLE 40 MG TABLET PO SCH (09:16)
--- NOTE | 2020-04-15 10:31 | PN ---
PROGRESS NOTE Mr. Gillette is a 59-year-old male who presented with symptoms of urinary tract infection and sepsis. The patient has a known history of end-stage renal disease, on hemodialysis, history of atrial fibrillation. He has been receiving dialysis. His blood pressure has been stable. He had 1 episode of tachycardia that appears to be sinus tachycardia on the monitor. He is in sinus mechanism at this time. He is off the vasopressor. The echocardiogram during this admission showed an ejection fraction of 55-60 percent with mild mitral and tricuspid regurgitation. He is awake, alert, confused. He continues to be at this time on amiodarone 100 mg daily, Eliquis 2.5 mg twice a day, Plavix 75 mg daily, hydralazine 50 mg 3 times a day, isosorbide mononitrate 30 mg daily, losartan 50 mg daily, metoprolol tartrate 25 mg twice a day. PHYSICAL EXAMINATION: VITAL SIGNS: Blood pressure running in the 110s to 140s with a heart rate in 70s. LUNGS: Clear anteriorly. HEART: Regular rate and rhythm S1, S2. No S3 with a systolic murmur, ejection type 2/6, early peaking. No diastolic murmur, no rub. ABDOMEN: Soft, nontender. EXTREMITIES: No edema. LAB DATA: Revealed a hemoglobin of 10.2, white blood cells 32.3, which is slightly worse than yesterday. BUN and creatinine 86 and 6.22. His AST 268, ALT of 1269, which is improving. IMPRESSION: 1. Sepsis with Methicillin resistant Staphylococcus aureus which could be related to the dialysis. 2. Hypoxic episode related to the sepsis and could be an element of diastolic dysfunction. 3. End stage chronic kidney disease, on hemodialysis. 4. Paroxysmal fibrillation. 5. History of anemia. 6. History of coronary artery disease status post stenting in the past with chronic occluded right coronary artery, status post cardiac catheterization performed in January in 2019 with no evidence of progression of disease at that time. RECOMMENDATION: We will continue present therapy. Follow his blood pressure and adjust his medical regimen. Continue dialysis as planned and antibiotics per Home Housekeeper. We will continue to follow his blood pressure and depending on the trend, further adjustment of his medical regimen will be done. MMODL / IJN: [id number] /
--- NOTE | 2020-04-15 11:03 | P.PN ---
Subjective Progress Note Date: 04/15/20 Principal diagnosis: MRSA bacteremia, acute exacerbation of diastolic CHF, cardiac arrest This is a 59-year-old white male admitted on 04/11/2020, admitted mostly with a diagnosis of sepsis and urinary tract infection, patient is known to have history of multiple medical problems, and has been falling recently quite frequently, is also known to have history of end-stage renal disease, on hemodialysis for the last 3 years, and he has a dialysis catheter in his right subclavian placed apparently a few weeks ago. He did have previous history of left AV fistula which has been nonfunctional recently and that is why he had a subclavian dialysis catheter. Patient is primarily a patient with Dr. Mckeon, he receives dialysis is normally on Wednesday and Wednesday, he had previous history of coronary artery disease and previous angioplasty, stent placement. His other medical problems include chronic atrial fibrillation diabetes dyslipidemia hypertension, and diabetic neuropathy. This time the patient was admitted mostly with mental status change, multiple falls at home, apparently had a recent fall in the bathroom and had trauma CT of the head was unremarkable on admission. Patient missed 2 dialysis appointments and in the ER his blood pressure was significantly elevated at 202/94. He had a low-grade fever, he had a relatively normal electrolytes, blood sugar was 237, and his urinalysis showed pyuria and bacteriuria. Hence patient was admitted mostly with the impression of UTI and sepsis. At 2:30 this afternoon, patient was receiving dialysis, as soon as dialysis was started, patient had a sudden episode of unresponsiveness, he was pulseless according to the team responded to him. Patient had less than 2 minutes of CPR, that there was return of spontaneous circulation, and return of pulse. No monitor was noted at the time, but by the time he woke up, patient was in atrial fibrillation with fairly controlled rhythm. Patient was transferred to the ICU, placed on a nonrebreather mask hemodynamically stable, I was asked to see him on consu ltation since he was transferred to the intensive care unit. Seen in the ICU, patient is on a nonrebreather mask, which I will transition to a high flow nasal cannula, patient is hemodynamically stable, he was in normal sinus rhythm, and he is a bit lethargic, but arousable, and follows all instruct ions. Labs from today were all reviewed. Again noted to have leukocytosis with WBC count 20.2, hemoglobin is 9.9. Troponin is 0.118, and his urine did show evidence of bacteriuria and pyuria. Reevaluated today on 04/12/2019, patient remains in the ICU, he had another episode of near syncope yesterday, patient was noted to become hypotensive upon connection to the dialysis machine. Patient had to be Ambu bag, did not require CPR this time, he had a pulse, but he was hypotensive. I saw the patient shortly after that episode, and his blood pressure was marginal. Recommended starting the patient on norepinephrine and recommended that we proceed with his hemodialysis. Patient did well overnight, did not have any further episodes, tolerated the hemodialysis well yesterday. Presently asymptomatic, patient has paroxysmal atrial fibrillation, but presently in sinus rhythm. On BiPAP which I will discontinue and place on a nasal cannula, and it will be titrated accordingly. Patient is definitely more awake today, alert and oriented 3. However his blood cultures are positive for gram-positive cocci, final identification is not available, and his urine from 04/11 was positive for pr esumptive staph aureus. Hence we will recommend empirically starting the patient on vancomycin, and we will initiate infectious disease consultation on this patient. Obviously the patient may have a positive urinary tract infection with gram-positive bacteremia. During my evaluation of this patient, he was undergoing dialysis, and he seems to be tolerating that quite well. His WBC count is 18.4 hemoglobin is 9.9. Electrolytes are normal bicarb is 19 BUN is 104 creatinine 8.15. Liver enzymes were noted to be elevated, his AST is 2932 and his ALT is 2723 with alkaline phosphatase of 449 could be related to hypoperfusion at the time when the patient had episodes of low blood pressure and at one point he had no pulse according to the team responded to his code. Chest x-ray showed evidence of mild interstitial edema, suspect diastolic congestive heart failure or pulmonary edema secondary to his underlying chronic renal disease Reevaluated today on 04/13/2020, patient remains in the ICU, presently undergoing hemodialysis. Patient remains hemodynamically stable, off BiPAP, seems to have intermittent atrial fibrillation that seems to improve once he goes on BiPAP. ABG did not reflect hypercapnia at any point. Patient is on oral anticoagulation therapy, he is not requiring norepinephrine anymore. Denies any chest pain or discomfort, no episodes of asystole over the last 24 hours, and no episodes of syncope or near syncope. Patient is intermittently confused and requires sedation and soft restraints blood cultures are now positive for MRSA and the patient is now on vancomycin and Levaquin. Potential sources for his MRSA bacteremia could be that his dialysis catheter or right second toe which shows some area of necrosis. Infectious disease has been consulted. For his agitation patient is requiring Ativan every 4 hours. As needed. Pulmonary-webb remains on 2 L nasal cannula or at times on BiPAP at 50% FiO2 with IPAP of 12 and EPAP of 5. On 04/14/2020 the patient is being seen in follow-up in the intensive care unit. The patient this morning is on a BiPAP at a pressure of 12/6 cm of water and FiO2 of 40%. The patient was in pulmonary edema at a time of his admission. He required dialysis since he has been an and that is an improvement in his overall volume status. The patient had no chest x-ray today. The chest x-ray from yesterday showedNo acute abnormalities. There may be some small left-sided pleural effusion. He has a permacath in his right. His last session of hemodialysis was yesterday. Dialysis session to be cut short because of low blood pressure and a chest fibrillation with rapid ventricular response. This morning, his blood pressure is stable on no pressors. He is in in sinus rhythm. He was on norepinephrine infusion yesterday for blood pressure support and this has been also discontinued. The most recent blood cultures negative and the patient remains on vancomycin. He was having possible causes earlier in the most recent possible cultures from the 2020. Neurologically, he is impaired and at times agitated requiring Ativan and the CAT scan of the brain and the cervical spine that was done, admission was was within normal limits. His echocardiogram showed an ejection fraction of 55-60%, mild aortic sclerosis, no pericardial effusion, not abnormalities otherwise. On 04/15/2020 patient seen in follow-up in intensive care unit, he is lethargic, arousable, however drifts back to sleep if left unstimulated, no signs of any respiratory distress, breathing comfortably, he is currently on 2 L of oxygen with pulse ox of 98%, afebrile, hemodynamically stable, he is on 0.9 normal saline at a rate of 10 ML per hour, he has been alternating between nasal cannula and BiPAP support with pressure of 12/6 and FiO2 of 50%. His last chest x-ray from 04/13/2020 showed cardiomegaly no obvious heart failure. Mild new infiltrate in the left lower lobe. He is on Levaquin and vancomycin for MRSA bacteremia, yesterday's blood cultures showed gram-positive cocci in clusters on the preliminary report. White count continues to be significantly elevated at 32.3, hemoglobin is 10.2, BUN is 86, creatinine is 6.2, electrolytes are relat ively unremarkable. Patient's last hemodialysis session was on 04/14/2020 with removal of 800 mL of fluid. Blood pressure has been stable, patient is not requiring any vasopressor support. Patient is on Eliquis for anticoagulation for recent history of A. fib with RVR, he is currently in sinus rhythm with controlled rate. Cardiology is following Objective - Vital Signs Vital signs: Vital Signs Temp 97.8 F 04/15/20 08:00 Pulse 75 04/15/20 10:00 Resp 13 04/15/20 10:00 BP 124/47 04/15/20 10:00 Pulse Ox 98 04/15/20 10:00 Intake & Output 04/14/20 04/15/20 04/15/20 18:59 06:59 18:59 Intake Total 410 250 40 Output Total 40 0 75 Balance 370 250 -35 Weight 89.9 kg Intake: IV 410 250 40 KVO 110 250 40 Levofloxacin 250Mg-D5w 50 Pmx 250 mg In Dextrose/ Water 1 50ml.bag @ 50 mls /hr IVPB Q48H [facility] Rx#: [id number] Vancomycin 1,500 mg In 250 Sodium Chloride 0.9% 250 ml @ 125 mls/hr IVPB ONCE ONE Rx#:[id number] Output: Urine 40 0 75 Other: Voiding Method Indwelling Catheter Indwelling Catheter Indwelling Catheter - Exam GENERAL EXAM: Sleepy, but arousable to voice, 59-year-old on 2l/min of oxygen a pulse ox of 98%, comfortable in no apparent distress. HEAD: Normocephalic/atraumatic. EYES: Normal reaction of pupils, equal size. Conjunctiva pink, sclera white. NOSE: Clear with pink turbinates. THROAT: No erythema or exudates. NECK: No masses, no JVD, no thyroid enlargement, no adenopathy. CHEST: No chest wall deformity. Symmetrical expansion. Right subclavian area hemodialysis catheter in place LUNGS: Equal air entry with no crackles, wheeze, rhonchi or dullness. CVS: Regular rate and rhythm, normal S1 and S2, no gallops, no murmurs, no rubs ABDOMEN: Soft, nontender. No hepatosplenomegaly, normal bowel sounds, no guarding or rigidity. EXTREMITIES: No clubbing, no edema, no cyanosis, 2+ pulses and upper and lower extremities. Left upper arm AV shunt in place MUSCULOSKELETAL: Muscle strength and tone normal. SPINE: No scoliosis or deformity SKIN: No rashes. CENTRAL NERVOUS SYSTEM: he is encephalopathic. No focal deficits, tone is normal in all 4 extremities. - Labs CBC & Chem 7: 04/15/20 03:24 04/15/20 03:24 Labs: Abnormal Lab Results - Last 24 Hours (Table) 04/14/20 04/14/20 04/14/20 Range/Units 11:28 16:46 23:39 WBC (3.8-10.6) k/uL RBC (4.30-5.90) m/uL Hgb (13.0-17.5) gm/dL Hct (39.0-53.0) % MCHC (31.0-37.0) g/dL RDW (11.5-15.5) % Neutrophils # (1.3-7.7) k/uL Lymphocytes # (1.0-4.8) k/uL Monocytes # (0-1.0) k/uL Sodium (137-145) mmol/L BUN (9-20) mg/dL Creatinine (0.66-1.25) mg/dL Glucose (74-99) mg/dL POC Glucose (mg/dL) 161 H 155 H 148 H (75-99) mg/dL AST (17-59) U/L ALT (4-49) U/L Alkaline Phosphatase (38-126) U/L Total Protein (6.3-8.2) g/dL Albumin (3.5-5.0) g/dL 04/15/20 04/15/20 04/15/20 Range/Units 03:24 03:24 05:37 WBC 32.3 H (3.8-10.6) k/uL RBC 3.86 L (4.30-5.90) m/uL Hgb 10.2 L (13.0-17.5) gm/dL Hct 33.8 L (39.0-53.0) % MCHC 30.3 L (31.0-37.0) g/dL RDW 16.3 H (11.5-15.5) % Neutrophils # 29.4 H (1.3-7.7) k/uL Lymphocytes # 0.7 L (1.0-4.8) k/uL Monocytes # 1.2 H (0-1.0) k/uL Sodium 136 L (137-145) mmol/L BUN 86 H (9-20) mg/dL Creatinine 6.22 H (0.66-1.25) mg/dL Glucose 144 H (74-99) mg/dL POC Glucose (mg/dL) 144 H (75-99) mg/dL AST 268 H (17-59) U/L ALT 1269 H (4-49) U/L Alkaline Phosphatase 375 H (38-126) U/L Total Protein 5.3 L (6.3-8.2) g/dL Albumin 2.5 L (3.5-5.0) g/dL Microbiology - Last 24 Hours (Table) 04/14/20 03:47 Blood Culture Gram Stain - Preliminary Blood 04/14/20 03:47 Blood Culture - Final Blood 04/13/20 16:55 Blood Culture Gram Stain - Preliminary Blood Blood Culture - Preliminary Presumptive MRSA 04/11/20 07:22 Urine Culture - Final Urine,Voided Methicillin resist S. aureus 04/13/20 16:55 Blood Culture - Final Blood Assessment and Plan Plan: 1 Acute hypoxic respiratory failure secondary to MRSA sepsis and a component of a possible acute diastolic congestive heart failure/ fluid overload 2 MRSA bacteremia and sepsis, source is not clear, could be from the dialysis catheter 3 Cardiac arrest, possible asystole or possible pulseless electrical activity, brief, responded to 2 minutes of CPR. 4 Chronic end-stage renal disease on hemodialysis, noncompliant and has been skipping dialysis. 5 Recurrent falls, could be related to his diabetic neuropathy/peripheral diabetic neuropathy or could be cardiac in nature with cardiac arrhythmia, needs to be further investigated. 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 8 Chronic anemia secondary to chronic renal disease. 9 Suspect some component of obstructive sleep apnea syndrome. 10 Morbid obesity. 11 Right second toe cellulitis with necrosis of the dorsal tip 12 Abnormal liver enzymes, possible shock liver. Related to his cardiac arrest. 13 leukocytosis and a white cell count is on the rise 14 altered mental status, metabolic encephalopathy. Plan: Continue current antibiotics, follow blood cultures from yesterday continue to be positive for presumptive MRSA. He continues to be encephalopathic, avoid narcotics and sedatives, maintain aspiration precautions, continue anticoagulation, vital signs have been stable, not any vasopressor support, he is breathing comfortably. Continue GI prophylaxis, follow blood cultures today continue to closely follow in intensive care unit. Continue using BiPAP as needed I performed a history & physical examination of the patient and discussed their management with my nurse practitioner, Tamiko Garcia. I reviewed the nurse practitioner's note and agree with the documented findings and plan of care. Lung sounds are positive for bibasilar crackles. The findings and the impression was discussed with the patient. I attest to the documentation by the nurse practitioner. Time with Patient: Greater than 30
[2020-04-15 11:44] LABS: Glucose,Whole Blood 98 mg/dL (75-99)
[2020-04-15] MEDS: hydrALAZINE HCL 50 MG TAB PO SCH ×3 (11:59→20:39)
[2020-04-15] MEDS: ISOSORBIDE MONONITRATE ER 30 MG TAB.ER.24H PO SCH (12:00)
--- NOTE | 2020-04-15 12:14 | P.PN ---
Subjective Progress Note Date: 04/15/20 Principal diagnosis: Fall, generalized weakness, syncope sepsis UTI, ischemic cardiomyopathy, hypertension on vasopressor 59 years old male patient of Dr. Mckeon with past medical history of end-stage renal disease on hemodialysis Wednesday and Wednesday, coronary artery disease post angioplasty, and stent placement last catheterization was February 09 with stent of the left circumflex and proximal LAD, atrial fibrillation, diabetes, GERD, hyperlipidemia, hypertension. He does have intermittent lesion along the mid LAD and follows Dr. Hinojosa on as outpatient. Patient was last admitted in February 16 with chest pain and unstable angina, comes in this time with change in mental status, and multiple falls at home. Patient is unable to provide any history due to increased drowsiness. History obtained from the chart. It appears patient had a fall in the bathroom as his leg gave out. He denies any dizziness or syncope episode. CT of the head was o btained that showed no acute lesions. Patient missed 2 dialysis appointment, last hemodialysis was 1 week ago. In the ER patient's blood pressure was 202/94 temp of 99 pulse 91 and respiratory rate 19 on assessment of patient's lab patient had a any, hemoglobin 10.7 hematocrit 32.4 sodium 133 chloride 92 bicarb 21 BUN 86 creatinine 7.56 glucose 237. Urinalysis does suggest leukocytosis with positive blood and positive protein. Urine culture was sent. On evaluation today patient is found to be lying in bed. He is unable to provide any history. Patient did Gabapentin, Dilaudid and 1 L of bolus of IV fluids. We will hold pain medication. Decrease gabapentin 100 3 times a day. Patient will be started on levofloxacin renally adjusted to 250 every 48 hours. Ativan reduced to 0.5 mg 3 times a day. Hold off diuretics. Nephrology consulted At 2:30 this afternoon patient became unresponsive as patient was hooked to the dialysis. The A team responded to the patient did mention patient was pulseless. A brief CPR was done for 2 minutes, with return of spontaneous circulation and return of the pulse with no need of epinephrine. Patient's blood pressure was found to be low. Cardiology consult will be placed. Echo will be ordered. Patient was noted to be in atrial fibrillation and was transferred to the ICU on nonrebreather mask. Another attempt was made to start the hemodialysis while patient was arousable and follows all commands he was found to be more lethargic. Patient's blood pressure dropped on hemodialysis and became unresponsive not responding to sternal rub. Was noted to be in A. fib with RVR. Patient was placed on BiPAP intubation was not required. 04/12 patient currently in the ICU. Vitals are stable with temp of 98 pulse 67 and respiratory rate 19 and blood pressure 156/71 oxygen saturation 95% on 40% on BiPAP. Patient has leukocytosis of 18 improved from 20 hemoglobin 9.9, sodium 134 chloride 97 bicarb 19 BUN 104 creatinine 8.15 phosphorus 10.7 and total bilirubin 1.7 AST 2932 ALT 2727 alkaline phosphatase 449. Cardiology evaluated the patient thinks patient's episode of unresponsiveness could be vasovagal from low blood pressure. Continue to monitor patient's blood pressure with possible orthostatics when patient is stable. Metoprolol dose increased to 25 twice a day. Initiated on amiodarone 100 mg daily patient is being dialyzed today with minimal ultrafiltration. We will hold hydralazine and Cozaar for systolic less than 125. Patient currently off pressors. Spoke to patient's at bedside who mentioned patient has been falling for the past few months. He had MRI of the lower back done as outpatient that suggested severe spinal stenosis. Patient was set up for PT as outpatient but has been forgetting to often due to weakness in his legs. He has a outpatient appointment pending with an orthopedic surgery 04/13: Patient still in the ICU , on BiPAP, he still have less responsiveness, quite hypertensive today back on vasopressor. Patient was diagnosed tolerate hemodialysis for long had only 1 hour, still currently in significant encephalopathy status, continue IV antibiotic for now there is a small gangren ous spot on the right second toe. 04/14: Patient is off vasopressor, still on BiPAP, still running back and forth between tachycardia and A. fib. No hemodialysis done today. Patient is very confused is taking his lines And all attachment out he required a sitter today. 04/15: Patient is off vasopressor, off BiPAP, he is more awake alert today, he is more hemodynamically stable. He is on hemodialysis and blood pressure is holding well so far should be able to do full cycle of hemodialysis today. Source of infection is still unclear suspect to be dialysis catheter which might be pulled out to place another catheter either in the femoral area or use the fistula graft had in the left forearm. Objective - Vital Signs Vital signs: Vital Signs Temp 96.6 F L 04/15/20 12:00 Pulse 66 04/15/20 12:00 Resp 12 04/15/20 12:00 BP 121/77 04/15/20 12:00 Pulse Ox 98 04/15/20 12:00 Intake & Output 04/14/20 04/15/20 04/15/20 18:59 06:59 18:59 Intake Total 410 250 60 Output Total 40 0 75 Balance 370 250 -15 Weight 89.9 kg Intake: IV 410 250 60 KVO 110 250 60 Levofloxacin 250Mg-D5w 50 Pmx 250 mg In Dextrose/ Water 1 50ml.bag @ 50 mls /hr IVPB Q48H [facility] Rx#: [id number] Vancomycin 1,500 mg In 250 Sodium Chloride 0.9% 250 ml @ 125 mls/hr IVPB ONCE ONE Rx#:[id number] Output: Urine 40 0 75 Other: Voiding Method Indwelling Catheter Indwelling Catheter Indwelling Catheter - Exam Review of Systems Constitutional: Denies chills, Denies fever, endorses lethargy and weakness Eyes: denies decreased vision, denies diplopia, denies discharge, denies pain Ears: deny: decreased hearing Ears, nose, mouth and throat: Denies dental pain, Denies headache, Denies nasal discharge, Denies nose pain Cardiovascular: Denies chest pain, Denies decreased exercise tolerance, Denies edema, Denies high blood pressure, Denies irregular heart beat, Denies palpitations, Denies paroxysmal nocturnal dyspnea, Denies rapid heart beat, Denies shortness of breath Respiratory: Denies congestion, Denies cough, Denies cough with sputum, Denies dyspnea, Denies home oxygen, Denies wheezing Gastrointestinal: Denies abdominal pain, Denies change in bowel habits, Denies coffee ground emesis, Denies early satiety, Denies excessive gas, Denies heartburn, Denies hematemesis, Denies hematochezia, Denies loss of appetite, Denies nausea, Denies vomiting Genitourinary: Denies dysuria, Denies flank pain, Denies kidney stones, Denies menorrhagia, Denies urgency, Denies urinary frequency Musculoskeletal: Endorses gait instability and multiple falls Integumentary: Denies rash, Denies wounds, Denies brittle nails, Denies change in hair/nails, Denies darkening of skin Neurological: Endorses balance difficulties, Denies change in speech, Denies double vision, Denies gait dysfunction, Denies loss of vision, Denies motor disturbance, Denies numbness, Denies paralysis, Denies paresthesias, Denies seizures Psychiatric: Denies anxiety, Denies depression Endocrine: Denies excessive sweating, Denies excessive thirst, Denies high blood sugars, Denies palpitations Hematologic/Lymphatic: Denies easy bruising, Denies lymphadenopathy Physical examination: General Appearance: Less responsiveness in bed, in no distress still using BiPAP Neck HEENT: Supple, no lymphadenopathy, no thyroid enlargement, no carotid bruits. Lungs: Decreased breath some bilaterally fine rhonchi positive mild crackles in the bases especially the right side. Chest Wall: Decrease expansion with deep inspiration no tenderness and no deformity was found on exam, no costochondral pain or discomfort. Heart: Irregular rate and rhythm, S1, S2 positive tachycardia no murmur or rub. Back: Symmetric, no curvature, ROM normal, no CVA tenderness. Abdomen: Soft, non-tender, bowel sounds active all four quadrants, no masses, no organomegaly. Extremities: Extremities normal, atraumatic, no cyanosis or edema. Right second toe has small area looks like thrombus gangrene. Pulses: 2+ and symmetric. Skin: Skin color, texture, tugor normal, no rashes or lesions. Neurologic: Alert with confusion cranial nerves II through XII intact, positive generalized weakness not been able to do gait exam. - Labs CBC & Chem 7: 04/15/20 03:24 04/15/20 03:24 Labs: Abnormal Lab Results - Last 24 Hours (Table) 04/14/20 04/14/20 04/15/20 Range/Units 16:46 23:39 03:24 WBC 32.3 H (3.8-10.6) k/uL RBC 3.86 L (4.30-5.90) m/uL Hgb 10.2 L (13.0-17.5) gm/dL Hct 33.8 L (39.0-53.0) % MCHC 30.3 L (31.0-37.0) g/dL RDW 16.3 H (11.5-15.5) % Neutrophils # 29.4 H (1.3-7.7) k/uL Lymphocytes # 0.7 L (1.0-4.8) k/uL Monocytes # 1.2 H (0-1.0) k/uL Sodium (137-145) mmol/L BUN (9-20) mg/dL Creatinine (0.66-1.25) mg/dL Glucose (74-99) mg/dL POC Glucose (mg/dL) 155 H 148 H (75-99) mg/dL AST (17-59) U/L ALT (4-49) U/L Alkaline Phosphatase (38-126) U/L Total Protein (6.3-8.2) g/dL Albumin (3.5-5.0) g/dL 04/15/20 04/15/20 Range/Units 03:24 05:37 WBC (3.8-10.6) k/uL RBC (4.30-5.90) m/uL Hgb (13.0-17.5) gm/dL Hct (39.0-53.0) % MCHC (31.0-37.0) g/dL RDW (11.5-15.5) % Neutrophils # (1.3-7.7) k/uL Lymphocytes # (1.0-4.8) k/uL Monocytes # (0-1.0) k/uL Sodium 136 L (137-145) mmol/L BUN 86 H (9-20) mg/dL Creatinine 6.22 H (0.66-1.25) mg/dL Glucose 144 H (74-99) mg/dL POC Glucose (mg/dL) 144 H (75-99) mg/dL AST 268 H (17-59) U/L ALT 1269 H (4-49) U/L Alkaline Phosphatase 375 H (38-126) U/L Total Protein 5.3 L (6.3-8.2) g/dL Albumin 2.5 L (3.5-5.0) g/dL Microbiology - Last 24 Hours (Table) 04/14/20 03:47 Blood Culture Gram Stain - Preliminary Blood Blood Culture - Preliminary Presumptive MRSA 04/14/20 03:47 Blood Culture - Final Blood 04/13/20 16:55 Blood Culture Gram Stain - Preliminary Blood Blood Culture - Preliminary Presumptive MRSA 02/18/21 07:22 Urine Culture - Final Urine,Voided Methicillin resist S. aureus Assessment and Plan Assessment: #1 sepsis source of infection still likely at this point patient is off his Lopressor, off BiPAP, continue current antibiotics and patient might have his dialysis catheter pulled out to culture the tip in the meanwhile continue current management. #2 acute metabolic encephalopathy likely secondary to to sepsis, uremia, pain medication and benzodiazepine. Missed dialysis 2 days. Nephrology consulted for hemodialysis. Hold Dilor noted. Ativan reduced to 0.5 3 times a day. Patient has not received any benzodiazepine in the hospital but did receive 2 doses of dialuadid ordered. #3 end-stage renal disease on hemodialysis : Could not tolerate hemodialysis the last few days because of low blood pressure today his blood pressure is much better and is going on. Left hemodialysis. #4 fall likely secondary to degenerative disc disease and spinal stenosis MRI done as outpatient that showed severe spinal stenosis. Patient has outpatient orthopedic evaluation pending PTOT consulted #5 acute syncope. Likely vasovagal Patient had a brief CPR as he lost his pulse and became unresponsive. Blood pressure was unobtainable. Cardiac consult placed repeat echo was not indicated, no testing indicate any major ischemia at the time stroke and no major arrhythmia. Patient stated having hypotension with tachycardia with no A. fib. #6 coronary artery disease with previous PTCA to LAD and circumflex. Lexiscan was negative on previous admission. Continue Uloric was, Plavix, Imdur, losartan, metoprolol #7 paroxysmal atrial fibrillation on Eliquis and metoprolol, along with amiodarone 100 mg daily metoprolol dose increased from 25 twice a day his A. fib still running on and off. #8 ischemic cardiomyopathy: Hold Zaroxolyn and Lasix continue Lopressor, hydralazine, nitro hold hydralazine and was out for systolic less than 120 #9 type 2 diabetes: On Levemir 20 units daily along with NovoLog per sliding scales coverage hold Actos due to concern for acute diastolic heart failure #10 chronic neuropathy: Gabapentin reduced to `100 mg 3 times a day #11 hypertension: Still on metoprolol 25 twice a day losartan 50 mg a day hydralazine 50 mg 3 times a day. Hold losartan and hydralazine systolic less than 120 #12 chronic anemia: On iron and Procrit. Overall patient is doing slightly better today continue dialysis continue current management continue recommendation with infectious disease for the source of infection and the treatment and management patient might be able to be out of the ICU in the next 48 hours.
--- NOTE | 2020-04-15 13:30 | PN ---
PROGRESS NOTE Patient is seen for followup for end-stage renal disease. He is currently seen on hemodialysis tolerating his treatment fairly well thus far. The patient remains confused. He is in restraints. PHYSICAL EXAMINATION: Blood pressure is 124/47, heart rate 75 per minute. He is afebrile. Examination of the heart S1, S2. Examination of the lungs, decreased breath sounds at bases. Abdomen is soft, nontender. Examination of lower extremities shows edema 1+. Discoloration noted on 2nd right toe. [employer] exam shows patient is confused. However, he is moving all 4 extremities. LAB: Show sodium 136, potassium 3.8, chloride 99, BUN 86, creatinine 6.2, hemoglobin 10.2 g/dL. ASSESSMENT: 1. End-stage renal disease maintained on hemodialysis on a Wednesday, Wednesday, Wednesday schedule. We will plan for dialysis again tomorrow given the elevated BUN and creatinine. 2. Bacteremia with MRSA. Blood cultures remain positive as of 04/14/2020. We will obtain blood culture from the dialysis catheter as well. Patient is maintained on vancomycin. If his repeat blood culture is positive, we may need to discontinue the IJ PermCath. 3. Atrial fibrillation with RVR, currently stable. 4. Encephalopathy most likely related to ongoing sepsis. 5. Coronary artery disease. 6. Status post cardiac arrest on initial admission, possibly vasovagal. 7. Ischemic cardiomyopathy, ejection fraction is preserved 55-60 percent on echocardiogram done on 04/12/2020. PLAN: Check blood cultures via dialysis catheter. If they are still positive, I will remove the PermCath and we will place a temporary dialysis catheter. Continue with antibiotics. Plan for repeat dialysis tomorrow. MMODL / IJN: [id number] /
[2020-04-15 17:49] LABS: Glucose,Whole Blood 96 mg/dL (75-99)
--- NOTE | 2020-04-15 18:16 | PN ---
PROGRESS NOTE DATE OF SERVICE: 04/15/2020 REASON FOR FOLLOWUP: 1. MRSA bacteremia. 2. Worsening white count. INTERVAL HISTORY: The patient is currently afebrile. The patient remains hemodynamically stable. The patient is less agitated today; however, he remains lethargic and unable to provide any history. No vomiting, diarrhea or any other changes reported by the nursing staff. PHYSICAL EXAMINATION: Blood pressure 141/72 with a pulse of 75, temperature 97. He is 98% on 2 L nasal cannula. General description is a middle-aged male lying in bed in no distress. RESPIRATORY SYSTEM: Unlabored breathing with decreased breath sounds at the base. No wheeze. HEART: S1, S2. Regular rate and rhythm. ABDOMEN: Soft. No tenderness. LABS: Hemoglobin is 10.2, white count 32.3, BUN of 86, creatinine 6.22. Blood culture with persistent MRSA bacteremia. DIAGNOSTIC IMPRESSION AND PLAN: 1. Patient with methicillin-resistant Staphylococcus aeruginosa bacteremia; high clinical suspicion for PermCath infection, which should be discontinued. Will discuss further with Nephrology. Blood culture repeated daily to document clearance of his bacteremia. 2. Patient with worsening white count. Will add cefepime, see clinical response and monitor clinical course closely. MMODL / IJN: [id number] /
[2020-04-15] MEDS: CEFEPIME 2 GM in SODIUM CHLORIDE 0.9% 100 ML IVPB SCH (18:20)
[2020-04-15 20:37] LABS: Glucose,Whole Blood 80 mg/dL (75-99)
[2020-04-15] MEDS: LOSARTAN 50 MG TAB PO SCH (20:40)
[2020-04-15] MEDS ORDERED: DILTIAZEM DRIP BOLUS FROM BAG 1 MG SOLN IV ONE (21:07)
[2020-04-15] MEDS: HYDROcodone/APAP 10-325MG 1 EACH TAB PO PRN (22:11)
[2020-04-15] MEDS: DILTIAZEM 125 MG in SODIUM CHLORIDE 0.9% 100 ML IV SCH ×2 (22:16→22:21)
[2020-04-16] MEDS: hydrOXYzine pamoate 25 MG CAP PO PRN ×2 (04:24→16:22)
[2020-04-16 04:29] LABS: Anisocytosis Slight; HCT 34.7 % (39.0-53.0); HGB 10.4 gm/dL (13.0-17.5); Hypochromasia Slight; MCH 25.9 pg (25.0-35.0); MCHC 29.9 g/dL (31.0-37.0); MCV 86.8 fL (80.0-100.0); Mean Platelet Volume 7.2; Platelet Count 325 k/uL (150-450); RBC 3.99 m/uL (4.30-5.90); RDW 16.6 % (11.5-15.5); WBC 33.1 k/uL (3.8-10.6)
[2020-04-16 04:40] LABS: Albumin 2.7 g/dL (3.5-5.0); Calcium 8.8 mg/dL (8.4-10.2); Potassium 3.4 mmol/L (3.5-5.1); Total Bilirubin 1.4 mg/dL (0.2-1.3); Total Protein 5.6 g/dL (6.3-8.2)
[2020-04-16 04:46] LABS: Vancomycin,Random 21.1 ug/mL
[2020-04-16 05:25] LABS: Band Neutrophils % 2 %; Eosinophils # (M) 0.33 k/uL (0-0.7); Lymphocytes # (M) 1.32 k/uL (1.0-4.8); Monocytes # (M) 1.99 k/uL (0-1.0); Neutrophils % (M) 88 %; Nucleated Red Blood Cells 0 /100 WBC (0-0); Total Cells Counted 200
[2020-04-16] MEDS: INSULIN ASPART (NovoLOG) 100 UNIT/ML VIAL SQ SCH ×4 (07:28→21:41)
[2020-04-16 07:29] LABS: Glucose,Whole Blood 82 mg/dL (75-99)
[2020-04-16] MEDS ORDERED: POTASSIUM CHLORIDE ER 20 MEQ TAB.ER PO STA (07:31)
--- NOTE | 2020-04-16 07:31 | XR ---
EXAMINATION TYPE: XR chest 1V DATE OF EXAM: 04/16/2020 CLINICAL HISTORY: Difficulty breathing progress study. TECHNIQUE: Single AP portable semiupright view of the chest is obtained. COMPARISON: Chest x-ray from 3 days earlier and older studies FINDINGS: There is cardiomegaly with persistent left basilar opacity. Stable right internal jugular large-bore dialysis catheter. Right lung remains clear. Visualized osseous structures are intact. Cho lecystectomy clips are redemonstrated. IMPRESSION: Cardiomegaly with left basilar atelectasis and/or infiltrate. No significant change from prior.
[2020-04-16] MEDS ORDERED: POTASSIUM CHLORIDE ER 20 MEQ TAB.ER PO SCH (08:00)
--- NOTE | 2020-04-16 08:24 | PN ---
PROGRESS NOTE Mr. Gillette is a 59-year-old male with a history of end-stage renal disease, hemodialysis, paroxysmal atrial fibrillation who presented with symptoms of urinary tract infection and sepsis. He had episode of atrial fibrillation during the night. He is back in sinus mechanism and continues to be confused. He is complaining of generalized achiness as well as present dyspnea. He has no palpitation and he is in sinus mechanism at this time and hemodynamically stable. PHYSICAL EXAMINATION: His blood pressure 148/70 with the heart rate in the 70s. LUNGS: Clear anteriorly. HEART: Regular rate and rhythm. S1, S2. No S3. No rub. ABDOMEN: Soft, nontender. Positive bowel sounds. No organomegaly. EXTREMITIES: No edema. LAB DATA: Lab data revealed BUN and creatinine 58 and 0.473. His bilirubin is 1.4. AST of , ALT of . Hemoglobin 10.4. His white blood cell of 33.1, which is slightly worse than yesterday. He continues to be at this time on amiodarone 100 mg daily, Eliquis 2.5 mg twice a day, Plavix 75 mg daily, hydralazine 50 mg 3 times a day, insulin, isosorbide mononitrate, metoprolol tartrate 25 mg twice a day and losartan 50 mg daily. IMPRESSION: 1. Sepsis with urinary tract infection. 2. Paroxysmal atrial fibrillation, anticoagulated, back in sinus mechanism. 3. Hypoxemia, improving. 4. End-stage renal disease, on hemodialysis. 5. History of anemia. 6. History of coronary artery disease with chronic occluded right coronary artery. RECOMMENDATION: I will increase the dose of his amiodarone. Continue the rest of his medical regimen and depending on his progress, further recommendation will be made. MMODL / IJN: [id number] /
[2020-04-16] MEDS ORDERED: AMIODARONE 100 MG TAB PO SCH (09:00)
--- NOTE | 2020-04-16 10:08 | P.PN ---
Subjective Progress Note Date: 04/16/20 Principal diagnosis: MRSA bacteremia, acute exacerbation of diastolic CHF, cardiac arrest This is a 59-year-old white male admitted on 04/11/2020, admitted mostly with a diagnosis of sepsis and urinary tract infection, patient is known to have history of multiple medical problems, and has been falling recently quite frequently, is also known to have history of end-stage renal disease, on hemodialysis for the last 3 years, and he has a dialysis catheter in his right subclavian placed apparently a few weeks ago. He did have previous history of left AV fistula which has been nonfunctional recently and that is why he had a subclavian dialysis catheter. Patient is primarily a patient with Dr. Mckeon, he receives dialysis is normally on Wednesday and Wednesday, he had previous history of coronary artery disease and previous angioplasty, stent placement. His other medical problems include chronic atrial fibrillation diabetes dyslipidemia hypertension, and diabetic neuropathy. This time the patient was admitted mostly with mental status change, multiple falls at home, apparently had a recent fall in the bathroom and had trauma CT of the head was unremarkable on admission. Patient missed 2 dialysis appointments and in the ER his blood pressure was significantly elevated at 202/94. He had a low-grade fever, he had a relatively normal electrolytes, blood sugar was 237, and his urinalysis showed pyuria and bacteriuria. Hence patient was admitted mostly with the impression of UTI and sepsis. At 2:30 this afternoon, patient was receiving dialysis, as soon as dialysis was started, patient had a sudden episode of unresponsiveness, he was pulseless according to the team responded to him. Patient had less than 2 minutes of CPR, that there was return of spontaneous circulation, and return of pulse. No monitor was noted at the time, but by the time he woke up, patient was in atrial fibrillation with fairly controlled rhythm. Patient was transferred to the ICU, placed on a nonrebreather mask hemodynamically stable, I was asked to see him on consu ltation since he was transferred to the intensive care unit. Seen in the ICU, patient is on a nonrebreather mask, which I will transition to a high flow nasal cannula, patient is hemodynamically stable, he was in normal sinus rhythm, and he is a bit lethargic, but arousable, and follows all instruct ions. Labs from today were all reviewed. Again noted to have leukocytosis with WBC count 20.2, hemoglobin is 9.9. Troponin is 0.118, and his urine did show evidence of bacteriuria and pyuria. Reevaluated today on 04/12/2019, patient remains in the ICU, he had another episode of near syncope yesterday, patient was noted to become hypotensive upon connection to the dialysis machine. Patient had to be Ambu bag, did not require CPR this time, he had a pulse, but he was hypotensive. I saw the patient shortly after that episode, and his blood pressure was marginal. Recommended starting the patient on norepinephrine and recommended that we proceed with his hemodialysis. Patient did well overnight, did not have any further episodes, tolerated the hemodialysis well yesterday. Presently asymptomatic, patient has paroxysmal atrial fibrillation, but presently in sinus rhythm. On BiPAP which I will discontinue and place on a nasal cannula, and it will be titrated accordingly. Patient is definitely more awake today, alert and oriented 3. However his blood cultures are positive for gram-positive cocci, final identification is not available, and his urine from 04/11 was positive for pr esumptive staph aureus. Hence we will recommend empirically starting the patient on vancomycin, and we will initiate infectious disease consultation on this patient. Obviously the patient may have a positive urinary tract infection with gram-positive bacteremia. During my evaluation of this patient, he was undergoing dialysis, and he seems to be tolerating that quite well. His WBC count is 18.4 hemoglobin is 9.9. Electrolytes are normal bicarb is 19 BUN is 104 creatinine 8.15. Liver enzymes were noted to be elevated, his AST is 2932 and his ALT is 2723 with alkaline phosphatase of 449 could be related to hypoperfusion at the time when the patient had episodes of low blood pressure and at one point he had no pulse according to the team responded to his code. Chest x-ray showed evidence of mild interstitial edema, suspect diastolic congestive heart failure or pulmonary edema secondary to his underlying chronic renal disease Reevaluated today on 04/13/2020, patient remains in the ICU, presently undergoing hemodialysis. Patient remains hemodynamically stable, off BiPAP, seems to have intermittent atrial fibrillation that seems to improve once he goes on BiPAP. ABG did not reflect hypercapnia at any point. Patient is on oral anticoagulation therapy, he is not requiring norepinephrine anymore. Denies any chest pain or discomfort, no episodes of asystole over the last 24 hours, and no episodes of syncope or near syncope. Patient is intermittently confused and requires sedation and soft restraints blood cultures are now positive for MRSA and the patient is now on vancomycin and Levaquin. Potential sources for his MRSA bacteremia could be that his dialysis catheter or right second toe which shows some area of necrosis. Infectious disease has been consulted. For his agitation patient is requiring Ativan every 4 hours. As needed. Pulmonary-webb remains on 2 L nasal cannula or at times on BiPAP at 50% FiO2 with IPAP of 12 and EPAP of 5. On 04/14/2020 the patient is being seen in follow-up in the intensive care unit. The patient this morning is on a BiPAP at a pressure of 12/6 cm of water and FiO2 of 40%. The patient was in pulmonary edema at a time of his admission. He required dialysis since he has been an and that is an improvement in his overall volume status. The patient had no chest x-ray today. The chest x-ray from yesterday showedNo acute abnormalities. There may be some small left-sided pleural effusion. He has a permacath in his right. His last session of hemodialysis was yesterday. Dialysis session to be cut short because of low blood pressure and a chest fibrillation with rapid ventricular response. This morning, his blood pressure is stable on no pressors. He is in in sinus rhythm. He was on norepinephrine infusion yesterday for blood pressure support and this has been also discontinued. The most recent blood cultures negative and the patient remains on vancomycin. He was having possible causes earlier in the most recent possible cultures from the 2020. Neurologically, he is impaired and at times agitated requiring Ativan and the CAT scan of the brain and the cervical spine that was done, admission was was within normal limits. His echocardiogram showed an ejection fraction of 55-60%, mild aortic sclerosis, no pericardial effusion, not abnormalities otherwise. On 04/15/2020 patient seen in follow-up in intensive care unit, he is lethargic, arousable, however drifts back to sleep if left unstimulated, no signs of any respiratory distress, breathing comfortably, he is currently on 2 L of oxygen with pulse ox of 98%, afebrile, hemodynamically stable, he is on 0.9 normal saline at a rate of 10 ML per hour, he has been alternating between nasal cannula and BiPAP support with pressure of 12/6 and FiO2 of 50%. His last chest x-ray from 04/13/2020 showed cardiomegaly no obvious heart failure. Mild new infiltrate in the left lower lobe. He is on Levaquin and vancomycin for MRSA bacteremia, yesterday's blood cultures showed gram-positive cocci in clusters on the preliminary report. White count continues to be significantly elevated at 32.3, hemoglobin is 10.2, BUN is 86, creatinine is 6.2, electrolytes are relat ively unremarkable. Patient's last hemodialysis session was on 04/14/2020 with removal of 800 mL of fluid. Blood pressure has been stable, patient is not requiring any vasopressor support. Patient is on Eliquis for anticoagulation for recent history of A. fib with RVR, he is currently in sinus rhythm with controlled rate. Cardiology is following On 04/16/2020 patient seen in follow-up in intensive care unit, he is slightly more arousable on today's exam, he is given some simple answers, he is oriented to person and place, disoriented to time. Drifts back to sleep if left unstimulated. Appears to be in no acute distress although he does admit to being short of breath at times. Seems to be breathing comfortably currently, he is on 2 L of oxygen with pulse ox of 99%, he had hemodialysis yesterday would removal of 1 L of fluid. His been afebrile. His follow-up blood cultures from 04/15/2020 continue to show gram-positive cocci in groups. Patient continues on vancomycin and cefepime for antibiotic coverage, ID service is following, patient has been having intermittent runs of A. fib with RVR, and spontaneously converts back to sinus. He is in sinus mechanism right now. Cardiology is following, patient is off the Cardizem infusion, he is on oral amiodarone, and he is on Eliquis for anticoagulation. Objective - Vital Signs Vital signs: Vital Signs Temp 97.9 F 04/16/20 08:00 Pulse 74 04/16/20 09:00 Resp 17 04/16/20 09:00 BP 126/68 04/16/20 09:00 Pulse Ox 99 04/16/20 09:00 Intake & Output 04/15/20 04/16/20 04/16/20 18:59 06:59 18:59 Intake Total 220 205 30 Output Total 1175 Balance -955 205 30 Weight 90.1 kg Intake: IV 220 205 30 Cefepime 2 gm In Sodium 100 100 Chloride 0.9% 100 ml @ 25 mls/hr IVPB Q24H [facility] Rx# :[id number] KVO 120 105 30 Output: Urine 75 Hemodialysis 1100 Other: Voiding Method Indwelling Catheter Incontinent Incontinent # Voids 1 - Exam GENERAL EXAM: Sleepy, but arousable to voice, 59-year-old on 2l/min of oxygen a pulse ox of 98%, comfortable in no apparent distress. HEAD: Normocephalic/atraumatic. EYES: Normal reaction of pupils, equal size. Conjunctiva pink, sclera white. NOSE: Clear with pink turbinates. THROAT: No erythema or exudates. NECK: No masses, no JVD, no thyroid enlargement, no adenopathy. CHEST: No chest wall deformity. Symmetrical expansion. Right subclavian area hemodialysis catheter in place LUNGS: Equal air entry with no crackles, wheeze, rhonchi or dullness. CVS: Regular rate and rhythm, normal S1 and S2, no gallops, no murmurs, no rubs ABDOMEN: Soft, nontender. No hepatosplenomegaly, normal bowel sounds, no guarding or rigidity. EXTREMITIES: No clubbing, no edema, no cyanosis, 2+ pulses and upper and lower extremities. Left upper arm AV shunt in place MUSCULOSKELETAL: Muscle strength and tone normal. SPINE: No scoliosis or deformity SKIN: No rashes. CENTRAL NERVOUS SYSTEM: he is encephalopathic. No focal deficits, tone is normal in all 4 extremities. - Labs CBC & Chem 7: 04/16/20 03:46 04/16/20 03:46 Labs: Abnormal Lab Results - Last 24 Hours (Table) 04/12/20 04/16/20 04/16/20 Range/Units 04:24 03:46 03:46 WBC 33.1 H (3.8-10.6) k/uL RBC 3.99 L (4.30-5.90) m/uL Hgb 10.4 L (13.0-17.5) gm/dL Hct 34.7 L (39.0-53.0) % MCHC 29.9 L (31.0-37.0) g/dL RDW 16.6 H (11.5-15.5) % Neutrophils # (Manual) 29.70 H (1.3-7.7) k/uL Monocytes # (Manual) 1.99 H (0-1.0) k/uL Potassium 3.4 L (3.5-5.1) mmol/L BUN 58 H (9-20) mg/dL Creatinine 4.73 H (0.66-1.25) mg/dL Total Bilirubin 1.4 H (0.2-1.3) mg/dL AST 89 H (17-59) U/L ALT 814 H (4-49) U/L Alkaline Phosphatase 382 H (38-126) U/L Total Protein 5.6 L (6.3-8.2) g/dL Albumin 2.7 L (3.5-5.0) g/dL RBC Folate 1,528 H (280 - 791) ng/mL Microbiology - Last 24 Hours (Table) 04/14/20 03:47 Blood Culture Gram Stain - Final Blood Blood Culture - Final Methicillin resist S. aureus 04/15/20 11:25 Blood Culture Gram Stain - Preliminary Blood 04/15/20 11:23 Blood Culture Gram Stain - Preliminary Blood 04/15/20 11:23 Blood Culture - Final Blood 04/15/20 11:25 Blood Culture - Final Blood 04/14/20 16:58 Blood Culture Gram Stain - Preliminary Blood Blood Culture - Preliminary Presumptive MRSA 04/13/20 16:55 Blood Culture Gram Stain - Final Blood Blood Culture - Final Methicillin resist S. aureus 04/14/20 16:58 Blood Culture - Final Blood Assessment and Plan Plan: 1 Acute hypoxic respiratory failure secondary to MRSA sepsis and a component of a possible acute diastolic congestive heart failure/ fluid overload 2 MRSA bacteremia and sepsis, source is not clear, could be from the dialysis catheter 3 Cardiac arrest, possible asystole or possible pulseless electrical activity, brief, responded to 2 minutes of CPR. 4 Chronic end-stage renal disease on hemodialysis, noncompliant and has been s kipping dialysis. 5 Recurrent falls, could be related to his diabetic neuropathy/peripheral diabetic neuropathy or could be cardiac in nature with cardiac arrhythmia, needs to be further investigated. 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 8 Chronic anemia secondary to chronic renal disease. 9 Suspect some component of obstructive sleep apnea syndrome. 10 Morbid obesity. 11 Right second toe cellulitis with necrosis of the dorsal tip 12 Abnormal liver enzymes, possible shock liver. Related to his cardiac arrest. 13 leukocytosis and a white cell count is on the rise 14 altered mental status, metabolic encephalopathy, improving Plan: Continue antibiotics per ID service recommendations, patient continues to have positive blood cultures, patient has been afebrile, is currently on cefepime and vancomycin, we dynamically stable although has intermittent runs of A. fib, continue anticoagulation. Rate control medications per cardiology. Mentation is improving, more arousable, and more oriented to his surroundings. No acute events overnight, patient is stable for transfer out of intensive care unit today to selective care unit. BiPAP as needed and at bedtime I performed a history & physical examination of the patient and discussed their management with my nurse practitioner, Tamiko Garcia. I reviewed the nurse practitioner's note and agree with the documented findings and plan of care. Lung sounds are positive for bibasilar crackles. The findings and the impression was discussed with the patient. I attest to the documentation by the nurse practitioner. Time with Patient: Less than 30
[2020-04-16] MEDS ORDERED: ACETAMINOPHEN TAB 500 MG TAB PO STA (10:19)
[2020-04-16] MEDS: allopurinoL 100 MG TAB PO SCH (10:24)
[2020-04-16] MEDS: PANTOPRAZOLE 40 MG TABLET PO SCH (10:25)
[2020-04-16] MEDS: CLOPIDOGREL 75 MG TAB PO SCH (10:25)
[2020-04-16] MEDS: APIXABAN 2.5 MG TABLET PO SCH ×2 (10:25→21:45)
[2020-04-16] MEDS: METOPROLOL TARTRATE 25 MG TAB PO SCH ×2 (10:25→21:45)
[2020-04-16] MEDS: GABAPENTIN 100 MG CAP PO SCH ×3 (10:25→21:45)
[2020-04-16] MEDS: INSULIN DETEMIR (LEVEMIR) 100 UNIT/ML SYR SQ SCH (10:26)
--- NOTE | 2020-04-16 10:47 | P.PN ---
Subjective Fall, generalized weakness, syncope sepsis UTI, ischemic cardiomyopathy, hypertension on vasopressor 59 years old male patient of Dr. Mckeon with past medical history of end-stage renal disease on hemodialysis Wednesday and Wednesday, coronary artery disease post angioplasty, and stent placement last catheterization was February 09 with stent of the left circumflex and proximal LAD, atrial fibrillation, diabetes, GERD, hyperlipidemia, hypertension. He does have intermittent lesion along the mid LAD and follows Dr. Hinojosa on as outpatient. Patient was last admitted in February 16 with chest pain and unstable angina, comes in this time with change in mental status, and multiple falls at home. Patient is unable to provide any history due to increased drowsiness. History obtained from the chart. It appears patient had a fall in the bathroom as his leg gave out. He denies any dizziness or syncope episode. CT of the head was obtained that showed no acute lesions. Patient missed 2 dialysis appointment, last hemodialysis was 1 week ago. In the ER patient's blood pressure was 202/94 temp of 99 pulse 91 and respiratory rate 19 on assessment of patient's lab patient had a any, hemoglobin 10.7 hematocrit 32.4 sodium 133 chloride 92 bicarb 21 BUN 86 creatinine 7.56 glucose 237. Urinalysis does suggest leukocytosis with positive blood and positive protein. Urine culture was sent. On evaluation today patient is found to be lying in bed. He is unable to provide any history. Patient did Gabapentin, Dilaudid and 1 L of bolus of IV fluids. We will hold pain medication. Decrease gabapentin 100 3 times a day. Patient will be started on levofloxacin renally adjusted to 250 every 48 hours. Ativan reduced to 0.5 mg 3 times a day. Hold off diuretics. Nephrology consulted At 2:30 this afternoon patient became unresponsive as patient was hooked to the dialysis. The A team responded to the patient did mention patient was pulseless. A brief CPR was done for 2 minutes, with return of spontaneous circulation and return of the pulse with no need of epinephrine. Patient's blood pressure was found to be low. Cardiology consult will be placed. Echo will be ordered. Patient was noted to be in atrial fibrillation and was transferred to the ICU on nonrebreather mask. Another attempt was made to start the hemodialysis while patient was arousable and follows all commands he was found to be more lethargic. Patient's blood pressure dropped on hemodialysis and became unresponsive not responding to sternal rub. Was noted to be in A. fib with RVR. Patient was placed on BiPAP intubation was not required. 04/12 patient currently in the ICU. Vitals are stable with temp of 98 pulse 67 and respiratory rate 19 and blood pressure 156/71 oxygen saturation 95% on 40% on BiPAP. Patient has leukocytosis of 18 improved from 20 hemoglobin 9.9, sodium 134 chloride 97 bicarb 19 BUN 104 creatinine 8.15 phosphorus 10.7 and total bilirubin 1.7 AST 2932 ALT 2727 alkaline phosphatase 449. Cardiology evaluated the patient thinks patient's episode of unresponsiveness could be vasovagal from low blood pressure. Continue to monitor patient's blood pressure with possible orthostatics when patient is stable. Metoprolol dose increased to 25 twice a day. Initiated on amiodarone 100 mg daily patient is being dialyzed today with minimal ultrafiltration. We will hold hydralazine and Cozaar for systolic less than 125. Patient currently off pressors. Spoke to patient's at bedside who mentioned patient has been falling for the past few months. He had MRI of the lower back done as outpatient that suggested severe spinal stenosis. Patient was set up for PT as outpatient but has been forgetting to often due to weakness in his legs. He has a outpatient appointment pending with an orthopedic surgery 04/13: Patient still in the ICU , on BiPAP, he still have less responsiveness, quite hypertensive today back on vasopressor. Patient was diagnosed tolerate hemodialysis for long had only 1 hour, still currently in significant encephalopathy status, continue IV antibiotic for now there is a small gangrenous spot on the right second toe. 04/14: Patient is off vasopressor, still on BiPAP, still running back and forth between tachycardia and A. fib. No hemodialysis done today. Patient is very confused is taking his lines And all attachment out he required a sitter today. 04/15: Patient is off vasopressor, off BiPAP, he is more awake alert today, he is more hemodynamically stable. He is on hemodialysis and blood pressure is holding well so far should be able to do full cycle of hemodialysis today. Source of infection is still unclear suspect to be dialysis catheter which might be pulled out to place another catheter either in the femoral area or use the fistula graft had in the left forearm. 04/16: Patient evaluated in the ICU. Patient is arousable but easily drifts back to sleep. He had dialysis yesterday, with possible plans for dialysis again today due to elevated BUN/creatinine. Possible source of infection still unclear and suspected to be dialysis catheter. Nephrology plans on repeat blood cultures via dialysis catheter, if positive will discuss discontinuing the IJ permacath. Infectious disease added Cefepime for worsening white count, and continue on Vancomycin. Repeat chest x-ray shows cardiomegaly with left basilar atelectasis. Plans to transfer of the ICU today to select care unit. Objective - Vital Signs Vital signs: Vital Signs Temp 97.9 F 04/16/20 08:00 Pulse 75 04/16/20 10:00 Resp 16 04/16/20 10:00 BP 130/62 04/16/20 10:00 Pulse Ox 96 04/16/20 10:00 Intake & Output 04/15/20 04/16/20 04/16/20 18:59 06:59 18:59 Intake Total 220 205 140 Output Total 1175 Balance -955 205 140 Weight 90.1 kg Intake: IV 220 205 40 Cefepime 2 gm In Sodium 100 100 Chloride 0.9% 100 ml @ 25 mls/hr IVPB Q24H ON LICENSE OF [facility] Rx# :[id number] KVO 120 105 40 Oral 100 Output: Urine 75 Hemodialysis 1100 Other: Voiding Method Indwelling Catheter Incontinent Incontinent # Voids 1 - Exam - Constitutional General appearance: Very drowsy - EENT Eyes: anicteric sclerae, PERRLA, normal appearance ENT: hearing grossly normal - Neck Neck: no lymphadenopathy, normal ROM, no other, no rigidity, no stridor, no thyromegaly - Respiratory Respiratory: bilateral: CTA, negative: diminished, dullness, rales, rhonchi - Cardiovascular Rhythm: regular Heart sounds: normal: S1, S2 Abnormal Heart Sounds: 2 x 6 systolic murmur, no diastolic murmur, no rub, no S3 Gallop, no S4 Gallop, no click, no other - Gastrointestinal General gastrointestinal: normal bowel sounds, soft nontender - Integumentary Integumentary: no rash - Neurologic Neurologic: Generalized decreased strength in all extremities - Musculoskeletal Musculoskeletal: gait normal, strength decreased bilateral extremities - Psychiatric Psychiatric: drowsy, decreased mentation - Labs CBC & Chem 7: 04/16/20 03:46 04/16/20 03:46 Labs: Abnormal Lab Results - Last 24 Hours (Table) 04/12/20 04/16/20 04/16/20 Range/Units 04:24 03:46 03:46 WBC 33.1 H (3.8-10.6) k/uL RBC 3.99 L (4.30-5.90) m/uL Hgb 10.4 L (13.0-17.5) gm/dL Hct 34.7 L (39.0-53.0) % MCHC 29.9 L (31.0-37.0) g/dL RDW 16.6 H (11.5-15.5) % Neutrophils # (Manual) 29.70 H (1.3-7.7) k/uL Monocytes # (Manual) 1.99 H (0-1.0) k/uL Potassium 3.4 L (3.5-5.1) mmol/L BUN 58 H (9-20) mg/dL Creatinine 4.73 H (0.66-1.25) mg/dL Total Bilirubin 1.4 H (0.2-1.3) mg/dL AST 89 H (17-59) U/L ALT 814 H (4-49) U/L Alkaline Phosphatase 382 H (38-126) U/L Total Protein 5.6 L (6.3-8.2) g/dL Albumin 2.7 L (3.5-5.0) g/dL RBC Folate 1,528 H (280 - 791) ng/mL Microbiology - Last 24 Hours (Table) 04/14/20 03:47 Blood Culture Gram Stain - Final Blood Blood Culture - Final Methicillin resist S. aureus 04/15/20 11:25 Blood Culture Gram Stain - Preliminary Blood 04/15/20 11:23 Blood Culture Gram Stain - Preliminary Blood 04/15/20 11:23 Blood Culture - Final Blood 04/15/20 11:25 Blood Culture - Final Blood 04/14/20 16:58 Blood Culture Gram Stain - Preliminary Blood Blood Culture - Preliminary Presumptive MRSA 04/13/20 16:55 Blood Culture Gram Stain - Final Blood Blood Culture - Final Methicillin resist S. aureus 04/14/20 16:58 Blood Culture - Final Blood Assessment and Plan Plan: #1 sepsis source of infection possibly dialysis catheter. off BiPAP, continue current antibiotics and patient might have his dialysis catheter pulled out to culture the tip in the meanwhile continue current management. #2 acute metabolic encephalopathy likely secondary to to sepsis, uremia, pain medication and benzodiazepine. Missed dialysis 2 days. Had dialysis yesterday, and may do another round possibly today. Ativan reduced to 0.5 3 times a day. Patient has not received any benzodiazepine in the hospital but did receive 2 doses of dialuadid ordered. #3 end-stage renal disease on hemodialysis : Could not tolerate hemodialysis the last few days because of low blood pressure today his blood pressure is much b prabhakar and is going on. Urinalysis completed #4 fall likely secondary to degenerative disc disease and spinal stenosis MRI done as outpatient that showed severe spinal stenosis. Patient has outpatient orthopedic evaluation pending PTOT consulted #5 acute syncope. Likely vasovagal Patient had a brief CPR as he lost his pulse and became unresponsive. Blood pressure was unobtainable. Cardiac consult placed repeat echo was not indicated, no testing indicate any major ischemia at the time stroke and no major arrhythmia. Patient stated having hypotension with tachycardia with no A. fib. #6 coronary artery disease with previous PTCA to LAD and circumflex. Lexiscan was negative on previous admission. Continue Uloric was, Plavix, Imdur, losartan, metoprolol #7 paroxysmal atrial fibrillation on Eliquis and metoprolol, along with amiodarone 100 mg daily metoprolol dose increased from 25 twice a day his A. fib still running on and off. #8 ischemic cardiomyopathy: Hold Zaroxolyn and Lasix continue Lopressor, hydralazine, nitro hold hydralazine and was out for systolic less than 120 #9 type 2 diabetes: On Levemir 20 units daily along with NovoLog per sliding scales coverage hold Actos due to concern for acute diastolic heart failure #10 chronic neuropathy: Gabapentin reduced to `100 mg 3 times a day #11 hypertension: Still on metoprolol 25 twice a day losartan 50 mg a day hydralazine 50 mg 3 times a day. Hold losartan and hydralazine systolic less than 120 #12 chronic anemia: On iron and Procrit. The above impression and plan of care have been discussed and directed by signing physician. Dinora Aldana nurse practitioner acting as scribe for signing physician.
[2020-04-16] MEDS ORDERED: VANCOMYCIN 1,500 MG in SODIUM CHLORIDE 0.9% 250 ML IVPB ONE (11:00)
[2020-04-16 11:45] LABS: Glucose,Whole Blood 81 mg/dL (75-99)
--- NOTE | 2020-04-16 12:15 | P.PN ---
Subjective Progress Note Date: 04/16/20 Patient seen for follow-up. Patient initially seen by Dr. Marco Nixon. Please refer to his note for detail. Patient has history of atrial fibrillation, CAD, CHF, diabetes, peripheral neuropathy, hyperlipidemia end-stage renal disease on hemodialysis, came to the hospital because of altered mental status, frequent falls. His legs would give out. Patient has missed his hemodialysis. Patient did have a cardiac arrest on 04/11/2020 lasted for less than 2 minutes. Patient had an episode of respirator y arrest the same day. Patient's altered mental status was felt to be related to toxic metabolic encephalopathy. CT head showed no acute intracranial process. CT of the cervical spine also negative. Patient has poorly controlled diabetes with A1c 10.1. Patient's B12 is > 4000, RBC folate is also elevated 1528. TSH is normal. Patient at this time continues to be encephalopathic. When asked, if he has headache, states he does and rates it severe. He is lethargic, somnolent, does open his eyes to calling his name, but then again goes back to sleepiness. Patient also admits to having back pain with back spasms. Patient's WBC 33.1, ammonia been 10.4, platelets 325. Sodium is 139 potassium 3.4, BUN 58, creatinine 4.73. Liver enzymes are significantly elevated with AST 89, ALT 814, with GGT 109. Creatinine kinase is normal. Objective - Vital Signs Vital signs: Vital Signs Temp 97.9 F 04/16/20 08:00 Pulse 74 04/16/20 11:00 Resp 11 L 04/16/20 11:00 BP 154/76 04/16/20 11:00 Pulse Ox 99 04/16/20 11:00 Intake & Output 04/15/20 04/16/20 04/16/20 18:59 06:59 18:59 Intake Total 220 205 150 Output Total 1175 0 Balance -955 205 150 Weight 90.1 kg 90.1 kg Intake: IV 220 205 50 Cefepime 2 gm In Sodium 100 100 Chloride 0.9% 100 ml @ 25 mls/hr IVPB Q24H [facility] Rx# :[id number] KVO 120 105 50 Oral 100 Output: Urine 75 0 Hemodialysis 1100 Other: Voiding Method Indwelling Catheter Incontinent Incontinent # Voids 1 - Exam On examination patient is a late middle aged male, who is obviously encephalopathic. He is somnolent, does open his eyes, answers appropriately. Patient states that he is in [facility]. He knows it is March but states the year is "12". Patient states the current president is Angelo Umaña. Speech is clear with some slurring due to somnolence but no obvious aphasia or dysarthria. His pupils are round and reacting. Visual justice could not be tested. Face is symmetric. Patient's strength is normal in the upper limbs distally and proximally. His ankle dorsiflexion is 4+, hip flexion is 3 bilaterally. Patient has peripheral edema. Reflexes are hypoactive and plantars are downgoing. Sensory touch is equal. On lifting the leg, patient complains of significant pain in the back. - Labs CBC & Chem 7: 04/16/20 03:46 04/16/20 03:46 Labs: Abnormal Lab Results - Last 24 Hours (Table) 04/12/20 04/16/20 04/16/20 Range/Units 04:24 03:46 03:46 WBC 33.1 H (3.8-10.6) k/uL RBC 3.99 L (4.30-5.90) m/uL Hgb 10.4 L (13.0-17.5) gm/dL Hct 34.7 L (39.0-53.0) % MCHC 29.9 L (31.0-37.0) g/dL RDW 16.6 H (11.5-15.5) % Neutrophils # (Manual) 29.70 H (1.3-7.7) k/uL Monocytes # (Manual) 1.99 H (0-1.0) k/uL Potassium 3.4 L (3.5-5.1) mmol/L BUN 58 H (9-20) mg/dL Creatinine 4.73 H (0.66-1.25) mg/dL Total Bilirubin 1.4 H (0.2-1.3) mg/dL AST 89 H (17-59) U/L ALT 814 H (4-49) U/L Alkaline Phosphatase 382 H (38-126) U/L Total Protein 5.6 L (6.3-8.2) g/dL Albumin 2.7 L (3.5-5.0) g/dL RBC Folate 1,528 H (280 - 791) ng/mL Microbiology - Last 24 Hours (Table) 04/14/20 03:47 Blood Culture Gram Stain - Final Blood Blood Culture - Final Methicillin resist S. aureus 04/15/20 11:25 Blood Culture Gram Stain - Preliminary Blood 04/15/20 11:23 Blood Culture Gram Stain - Preliminary Blood 04/15/20 11:23 Blood Culture - Final Blood 04/15/20 11:25 Blood Culture - Final Blood 04/14/20 16:58 Blood Culture Gram Stain - Preliminary Blood Blood Culture - Preliminary Presumptive MRSA 04/13/20 16:55 Blood Culture Gram Stain - Final Blood Blood Culture - Final Methicillin resist S. aureus 04/14/20 16:58 Blood Culture - Final Blood Assessment and Plan Assessment: * Altered mental status, due to toxic metabolic encephalopathy. * Chronic renal failure, missed hemodialysis prior to arrival. * History of septicemia with MRSA. * Elevated LFTs. Elevated ESR 95 * Poorly controlled diabetes Plan: * Patient has persistent bacteremia. Patient has significantly elevated white cells. Patient does have some back pain. I would recommend MRI of lumbar and thoracic spine with and without contrast rule out discitis or osteomyelitis. * Medical management as per IM. * 2-D echo showed moderate concentric LVH, EF is 55-60%. Aortic valve is trileaflet and is mildly thickened. Mild aortic valve sclerosis. * Infectious disease on the case. Consider MRI of the lumbar spine * Patient currently on cefepime and vancomycin.
[2020-04-16] MEDS: ISOSORBIDE MONONITRATE ER 30 MG TAB.ER.24H PO SCH (13:10)
[2020-04-16] MEDS: hydrALAZINE HCL 50 MG TAB PO SCH ×3 (13:10→21:42)
--- NOTE | 2020-04-16 13:14 | PN ---
PROGRESS NOTE The patient is seen for followup for end-stage renal disease. The patient is currently much more awake. His mentation has improved. He did have dialysis yesterday. Creatinine is at 4.73, potassium 3.4 this morning. Physical therapy is currently working with the patient. His blood cultures remain positive. They were drawn again yesterday during dialysis through the PermCath and it is still growing gram-positive cocci. PHYSICAL EXAMINATION: On examination today, blood pressure was 130/62, heart rate 75 per minute. Patient is afebrile. EXAMINATION OF THE HEART: S1, S2. EXAMINATION OF THE LUNGS: Decreased breath sounds at bases. Abdomen is soft, nontender. Examination of lower extremities shows much decreased edema. Chronic skin changes noted. Discoloration noted on the second toe on the right foot. [employer] exam otherwise grossly intact. Patient is alert and oriented x3. Moving all 4 extremities. LABS: Labs show sodium 139, potassium 3.4, BUN 58, serum creatinine 4.73, hemoglobin 10.4 g/dL. ASSESSMENT: 1. End-stage renal disease, on hemodialysis on Wednesday, Wednesday, Wednesday schedule as outpatient, currently receiving almost daily treatments for significantly elevated BUN and creatinine and hemodynamic instability which had caused limited sessions due to atrial fibrillation with RVR and hypotension. Currently patient is much more hemodynamically stable. We will dialyze him today again and then remove his PermCath. 2. Persistent MRSA bacteremia most likely related to the IJ PermCath which will be removed today after dialysis. 3. Atrial fibrillation with rapid ventricular response currently with controlled ventricular response. 4. Volume overload, now improved. 5. Mental status changes secondary to sepsis, currently improved. PLAN: Hemodialysis today and discontinue PermCath after dialysis and repeat labs in a.m. We will place a temporary dialysis catheter after about 2 days and once blood cultures are negative, we can place a PermCath. MMODL / IJN: [id number] /
--- NOTE | 2020-04-16 15:36 | PN ---
PROGRESS NOTE DATE OF SERVICE: 04/16/2020 REASON FOR FOLLOWUP: 1. MRSA bacteremia secondary to PermCath infection. 2. Persistent elevated white count. INTERVAL HISTORY: The patient is currently afebrile. The patient is slightly more awake and appropriate today. No agitation has been noticed. Denies having any chest pain or cough. No abdominal pain or diarrhea. PHYSICAL EXAMINATION: Blood pressure 132/67 with pulse of 66, temperature 97.9. He is 98% on 2 L nasal cannula. General description is a middle-aged male lying in bed in no distress. RESPIRATORY SYSTEM: Unlabored breathing, decreased breath sounds at the bases. No wheeze. HEART: S1, S2. Regular rate and rhythm. ABDOMEN: Soft, no tenderness. LABS: Hemoglobin is 10.4, white count 33.1. BUN of 58, creatinine 4.73. Blood cultures are persistently positive for MRSA. DIAGNOSTIC IMPRESSION AND PLAN: 1. Patient with MRSA bacteremia source likely PermCath which will be discontinued today after his dialysis as per discussion with Nephrology. Patient is covered with vancomycin to continue keep the trough around 15 with daily blood cultures to document clearance of his bacteremia so he can get another PermCath. 2. Patient with persistently elevated white count despite being on vancomycin. We will obtain a CT of the to make sure no evidence of any probable source. On empiric cefepime to continue. MMODL / IJN: [id number] /
[2020-04-16 16:16] LABS: Glucose,Whole Blood 85 mg/dL (75-99)
[2020-04-16] MEDS: HYDROcodone/APAP 10-325MG 1 EACH TAB PO PRN (16:50)
[2020-04-16] MEDS: CEFEPIME 2 GM in SODIUM CHLORIDE 0.9% 100 ML IVPB SCH (17:26)
[2020-04-16 21:18] LABS: Glucose,Whole Blood 124 mg/dL (75-99)
[2020-04-16] MEDS: LOSARTAN 50 MG TAB PO SCH (21:41)
[2020-04-16] MEDS: DILTIAZEM 125 MG in SODIUM CHLORIDE 0.9% 100 ML IV SCH (21:42)
[2020-04-17] MEDS: hydrOXYzine pamoate 25 MG CAP PO PRN ×3 (00:19→17:27)
[2020-04-17 03:49] LABS: Anisocytosis Slight; Basophils # (A) 0.1 k/uL (0-0.2); Basophils % (A) 0 %; Eosinophils % (A) 0 %; HCT 31.9 % (39.0-53.0); HGB 9.6 gm/dL (13.0-17.5); Hypochromasia Moderate; Lymphocytes # (A) 0.7 k/uL (1.0-4.8); Lymphocytes % (A) 2 %; MCHC 30.2 g/dL (31.0-37.0); MCV 89.5 fL (80.0-100.0); Mean Platelet Volume 7.5; Monocytes # (A) 1.1 k/uL (0-1.0); Monocytes % (A) 4 %; Neutrophils # (A) 29.5 k/uL (1.3-7.7); Neutrophils % (A) 92 %; Platelet Count 285 k/uL (150-450); RBC 3.57 m/uL (4.30-5.90); RDW 16.8 % (11.5-15.5)
[2020-04-17 04:09] LABS: Albumin 2.5 g/dL (3.5-5.0); Calcium 8.7 mg/dL (8.4-10.2); Potassium 4.3 mmol/L (3.5-5.1); Total Bilirubin 1.3 mg/dL (0.2-1.3); Total Protein 5.4 g/dL (6.3-8.2)
[2020-04-17 07:02] LABS: Glucose,Whole Blood 166 mg/dL (75-99)
[2020-04-17] MEDS: INSULIN ASPART (NovoLOG) 100 UNIT/ML VIAL SQ SCH ×4 (07:13→21:22)
--- NOTE | 2020-04-17 07:34 | XR ---
EXAMINATION TYPE: XR chest 1V DATE OF EXAM: 04/17/2020 COMPARISON: 04/16/2020 HISTORY: 59-year-old male shortness of breath TECHNIQUE: Single frontal view of the chest is obtained. FINDINGS: Right-sided double lumen hemodialysis catheter with tips at the cavoatrial junction. Heart mildly enl arged. Diffuse interstitial opacity persists, slightly increased. Left base underpenetrated and not w ell assessed. Cholecystectomy clips. IMPRESSION: 1. Cardiomegaly. Interstitial density slightly increased. Correlate to exclude developing pulmonary v ascular congestion. 2. Left base remains underpenetrated and not well assessed. Some underlying atelectasis/infiltrate or effusion are possible.
[2020-04-17] MEDS: GABAPENTIN 100 MG CAP PO SCH ×3 (08:54→22:08)
[2020-04-17] MEDS: APIXABAN 2.5 MG TABLET PO SCH ×2 (08:54→21:22)
[2020-04-17] MEDS: PANTOPRAZOLE 40 MG TABLET PO SCH (08:54)
[2020-04-17] MEDS: METOPROLOL TARTRATE 25 MG TAB PO SCH ×2 (08:54→21:09)
[2020-04-17] MEDS: ISOSORBIDE MONONITRATE ER 30 MG TAB.ER.24H PO SCH (08:54)
[2020-04-17] MEDS: allopurinoL 100 MG TAB PO SCH (08:54)
[2020-04-17] MEDS: hydrALAZINE HCL 25 MG TAB PO SCH ×3 (08:54→22:08)
[2020-04-17] MEDS: AMIODARONE 200 MG TAB PO SCH (08:54)
[2020-04-17] MEDS: CLOPIDOGREL 75 MG TAB PO SCH (08:54)
[2020-04-17] MEDS: INSULIN DETEMIR (LEVEMIR) 100 UNIT/ML SYR SQ SCH (08:55)
--- NOTE | 2020-04-17 09:01 | P.PN ---
Subjective Progress Note Date: 04/17/20 Principal diagnosis: MRSA bacteremia, acute exacerbation of diastolic CHF, cardiac arrest This is a 59-year-old white male admitted on 04/11/2020, admitted mostly with a diagnosis of sepsis and urinary tract infection, patient is known to have history of multiple medical problems, and has been falling recently quite frequently, is also known to have history of end-stage renal disease, on hemodialysis for the last 3 years, and he has a dialysis catheter in his right subclavian placed apparently a few weeks ago. He did have previous history of left AV fistula which has been nonfunctional recently and that is why he had a subclavian dialysis catheter. Patient is primarily a patient with Dr. Mckeon, he receives dialysis is normally on Wednesday and Wednesday, he had previous history of coronary artery disease and previous angioplasty, stent placement. His other medical problems include chronic atrial fibrillation diabetes dyslipidemia hypertension, and diabetic neuropathy. This time the patient was admitted mostly with mental status change, multiple falls at home, apparently had a recent fall in the bathroom and had trauma CT of the head was unremarkable on admission. Patient missed 2 dialysis appointments and in the ER his blood pressure was significantly elevated at 202/94. He had a low-grade fever, he had a relatively normal electrolytes, blood sugar was 237, and his urinalysis showed pyuria and bacteriuria. Hence patient was admitted mostly with the impression of UTI and sepsis. At 2:30 this afternoon, patient was receiving dialysis, as soon as dialysis was started, patient had a sudden episode of unresponsiveness, he was pulseless according to the team responded to him. Patient had less than 2 minutes of CPR, that there was return of spontaneous circulation, and return of pulse. No monitor was noted at the time, but by the time he woke up, patient was in atrial fibrillation with fairly controlled rhythm. Patient was transferred to the ICU, placed on a nonrebreather mask hemodynamically stable, I was asked to see him on consu ltation since he was transferred to the intensive care unit. Seen in the ICU, patient is on a nonrebreather mask, which I will transition to a high flow nasal cannula, patient is hemodynamically stable, he was in normal sinus rhythm, and he is a bit lethargic, but arousable, and follows all instruct ions. Labs from today were all reviewed. Again noted to have leukocytosis with WBC count 20.2, hemoglobin is 9.9. Troponin is 0.118, and his urine did show evidence of bacteriuria and pyuria. Reevaluated today on 04/12/2019, patient remains in the ICU, he had another episode of near syncope yesterday, patient was noted to become hypotensive upon connection to the dialysis machine. Patient had to be Ambu bag, did not require CPR this time, he had a pulse, but he was hypotensive. I saw the patient shortly after that episode, and his blood pressure was marginal. Recommended starting the patient on norepinephrine and recommended that we proceed with his hemodialysis. Patient did well overnight, did not have any further episodes, tolerated the hemodialysis well yesterday. Presently asymptomatic, patient has paroxysmal atrial fibrillation, but presently in sinus rhythm. On BiPAP which I will discontinue and place on a nasal cannula, and it will be titrated accordingly. Patient is definitely more awake today, alert and oriented 3. However his blood cultures are positive for gram-positive cocci, final identification is not available, and his urine from 04/11 was positive for pr esumptive staph aureus. Hence we will recommend empirically starting the patient on vancomycin, and we will initiate infectious disease consultation on this patient. Obviously the patient may have a positive urinary tract infection with gram-positive bacteremia. During my evaluation of this patient, he was undergoing dialysis, and he seems to be tolerating that quite well. His WBC count is 18.4 hemoglobin is 9.9. Electrolytes are normal bicarb is 19 BUN is 104 creatinine 8.15. Liver enzymes were noted to be elevated, his AST is 2932 and his ALT is 2723 with alkaline phosphatase of 449 could be related to hypoperfusion at the time when the patient had episodes of low blood pressure and at one point he had no pulse according to the team responded to his code. Chest x-ray showed evidence of mild interstitial edema, suspect diastolic congestive heart failure or pulmonary edema secondary to his underlying chronic renal disease Reevaluated today on 04/13/2020, patient remains in the ICU, presently undergoing hemodialysis. Patient remains hemodynamically stable, off BiPAP, seems to have intermittent atrial fibrillation that seems to improve once he goes on BiPAP. ABG did not reflect hypercapnia at any point. Patient is on oral anticoagulation therapy, he is not requiring norepinephrine anymore. Denies any chest pain or discomfort, no episodes of asystole over the last 24 hours, and no episodes of syncope or near syncope. Patient is intermittently confused and requires sedation and soft restraints blood cultures are now positive for MRSA and the patient is now on vancomycin and Levaquin. Potential sources for his MRSA bacteremia could be that his dialysis catheter or right second toe which shows some area of necrosis. Infectious disease has been consulted. For his agitation patient is requiring Ativan every 4 hours. As needed. Pulmonary-webb remains on 2 L nasal cannula or at times on BiPAP at 50% FiO2 with IPAP of 12 and EPAP of 5. On 04/14/2020 the patient is being seen in follow-up in the intensive care unit. The patient this morning is on a BiPAP at a pressure of 12/6 cm of water and FiO2 of 40%. The patient was in pulmonary edema at a time of his admission. He required dialysis since he has been an and that is an improvement in his overall volume status. The patient had no chest x-ray today. The chest x-ray from yesterday showedNo acute abnormalities. There may be some small left-sided pleural effusion. He has a permacath in his right. His last session of hemodialysis was yesterday. Dialysis session to be cut short because of low blood pressure and a chest fibrillation with rapid ventricular response. This morning, his blood pressure is stable on no pressors. He is in in sinus rhythm. He was on norepinephrine infusion yesterday for blood pressure support and this has been also discontinued. The most recent blood cultures negative and the patient remains on vancomycin. He was having possible causes earlier in the most recent possible cultures from the 2020. Neurologically, he is impaired and at times agitated requiring Ativan and the CAT scan of the brain and the cervical spine that was done, admission was was within normal limits. His echocardiogram showed an ejection fraction of 55-60%, mild aortic sclerosis, no pericardial effusion, not abnormalities otherwise. On 04/15/2020 patient seen in follow-up in intensive care unit, he is lethargic, arousable, however drifts back to sleep if left unstimulated, no signs of any respiratory distress, breathing comfortably, he is currently on 2 L of oxygen with pulse ox of 98%, afebrile, hemodynamically stable, he is on 0.9 normal saline at a rate of 10 ML per hour, he has been alternating between nasal cannula and BiPAP support with pressure of 12/6 and FiO2 of 50%. His last chest x-ray from 04/13/2020 showed cardiomegaly no obvious heart failure. Mild new infiltrate in the left lower lobe. He is on Levaquin and vancomycin for MRSA bacteremia, yesterday's blood cultures showed gram-positive cocci in clusters on the preliminary report. White count continues to be significantly elevated at 32.3, hemoglobin is 10.2, BUN is 86, creatinine is 6.2, electrolytes are relat ively unremarkable. Patient's last hemodialysis session was on 04/14/2020 with removal of 800 mL of fluid. Blood pressure has been stable, patient is not requiring any vasopressor support. Patient is on Eliquis for anticoagulation for recent history of A. fib with RVR, he is currently in sinus rhythm with controlled rate. Cardiology is following On 04/16/2020 patient seen in follow-up in intensive care unit, he is slightly more arousable on today's exam, he is given some simple answers, he is oriented to person and place, disoriented to time. Drifts back to sleep if left unstimulated. Appears to be in no acute distress although he does admit to being short of breath at times. Seems to be breathing comfortably currently, he is on 2 L of oxygen with pulse ox of 99%, he had hemodialysis yesterday would removal of 1 L of fluid. His been afebrile. His follow-up blood cultures from 04/15/2020 continue to show gram-positive cocci in groups. Patient continues on vancomycin and cefepime for antibiotic coverage, ID service is following, patient has been having intermittent runs of A. fib with RVR, and spontaneously converts back to sinus. He is in sinus mechanism right now. Cardiology is following, patient is off the Cardizem infusion, he is on oral amiodarone, and he is on Eliquis for anticoagulation. On 04/17/2000 patient seen in follow-up in the intensive care unit, he is currently on 3 L of oxygen, did not require BiPAP support, pulse ox is 100% on 3 L, he is breathing comfortably, he is lethargic, but arousable, he wakes up and answers simple questions, denies any chest discomfort, is currently in sinus mechanism on the monitor, his had intermittent self-limiting bouts of atrial fibrillation, he is on oral amiodarone and Eliquis for anticoagulation. Remains on cefepime and vancomycin, and his follow-up blood cultures from 04/15/2020 are again positive for presumptive MRSA. ID service is following, the source of bacteremia is likely related to hemodialysis catheter in the right subclavian area, fasting surgery has been consulted for removal of the hemodialysis catheter today and insertion of a new hemodialysis catheter in the next 48 hours. Patient has been afebrile, patient had hemodialysis yesterday would removal of 700 mL of fluid. After hemodialysis he did have some lower blood pressures with systolic in the 80s, and in view of relative hypotension his transfer out of ICU was held. Objective - Vital Signs Vital signs: Vital Signs Temp 98 F 04/17/20 04:00 Pulse 68 04/17/20 04:00 Resp 14 04/17/20 04:00 BP 122/72 04/17/20 04:00 Pulse Ox 100 04/17/20 04:00 Intake & Output 04/16/20 04/17/20 04/17/20 18:59 06:59 18:59 Intake Total 540 150 Output Total 700 0 Balance -160 150 Weight 90.1 kg 89.4 kg Intake: IV 190 150 Cefepime 2 gm In Sodium 100 100 Chloride 0.9% 100 ml @ 25 mls/hr IVPB Q24H [facility] Rx# :[id number] KVO 90 50 Oral 350 Output: Urine 0 0 Hemodialysis 700 Other: Voiding Method Incontinent - Exam GENERAL EXAM: Sleepy, but arousable to voice, 59-year-old on 3l/min of oxygen a pulse ox of 100%, comfortable in no apparent distress. HEAD: Normocephalic/atraumatic. EYES: Normal reaction of pupils, equal size. Conjunctiva pink, sclera white. NOSE: Clear with pink turbinates. THROAT: No erythema or exudates. NECK: No masses, no JVD, no thyroid enlargement, no adenopathy. CHEST: No chest wall deformity. Symmetrical expansion. Right subclavian area hemodialysis catheter in place LUNGS: Equal air entry with no crackles, wheeze, rhonchi or dullness. CVS: Regular rate and rhythm, normal S1 and S2, no gallops, soft systolic murmur, loudest at the left midclavicular line fourth to fifth intercostal spac e, no rubs ABDOMEN: Soft, nontender. No hepatosplenomegaly, normal bowel sounds, no guarding or rigidity. EXTREMITIES: No clubbing, no edema, no cyanosis, 2+ pulses and upper and lower extremities. Left upper arm AV shunt in place, with positive bruit and thrill MUSCULOSKELETAL: Muscle strength and tone normal. SPINE: No scoliosis or deformity SKIN: No rashes. CENTRAL NERVOUS SYSTEM: he is encephalopathic. No focal deficits, tone is normal in all 4 extremities. - Labs CBC & Chem 7: 04/17/20 03:17 04/17/20 03:17 Labs: Abnormal Lab Results - Last 24 Hours (Table) 04/16/20 04/17/20 04/17/20 Range/Units 21:17 03:17 03:17 WBC 32.0 H (3.8-10.6) k/uL RBC 3.57 L (4.30-5.90) m/uL Hgb 9.6 L (13.0-17.5) gm/dL Hct 31.9 L (39.0-53.0) % MCHC 30.2 L (31.0-37.0) g/dL RDW 16.8 H (11.5-15.5) % Neutrophils # 29.5 H (1.3-7.7) k/uL Lymphocytes # 0.7 L (1.0-4.8) k/uL Monocytes # 1.1 H (0-1.0) k/uL Chloride 108 H (98-107) mmol/L Carbon Dioxide 21 L (22-30) mmol/L BUN 47 H (9-20) mg/dL Creatinine 3.63 H (0.66-1.25) mg/dL Glucose 154 H (74-99) mg/dL POC Glucose (mg/dL) 124 H (75-99) mg/dL AST 98 H (17-59) U/L ALT 517 H (4-49) U/L Alkaline Phosphatase 391 H (38-126) U/L Total Protein 5.4 L (6.3-8.2) g/dL Albumin 2.5 L (3.5-5.0) g/dL 04/17/20 Range/Units 07:00 WBC (3.8-10.6) k/uL RBC (4.30-5.90) m/uL Hgb (13.0-17.5) gm/dL Hct (39.0-53.0) % MCHC (31.0-37.0) g/dL RDW (11.5-15.5) % Neutrophils # (1.3-7.7) k/uL Lymphocytes # (1.0-4.8) k/uL Monocytes # (0-1.0) k/uL Chloride (98-107) mmol/L Carbon Dioxide (22-30) mmol/L BUN (9-20) mg/dL Creatinine (0.66-1.25) mg/dL Glucose (74-99) mg/dL POC Glucose (mg/dL) 166 H (75-99) mg/dL AST (17-59) U/L ALT (4-49) U/L Alkaline Phosphatase (38-126) U/L Total Protein (6.3-8.2) g/dL Albumin (3.5-5.0) g/dL Microbiology - Last 24 Hours (Table) 04/14/20 16:58 Blood Culture Gram Stain - Final Blood Blood Culture - Final Methicillin resist S. aureus 04/14/20 03:47 Blood Culture Gram Stain - Final Blood Blood Culture - Final Methicillin resist S. aureus 04/15/20 11:25 Blood Culture Gram Stain - Preliminary Blood Blood Culture - Preliminary Presumptive MRSA 04/15/20 11:23 Blood Culture Gram Stain - Preliminary Blood Blood Culture - Preliminary Presumptive MRSA Assessment and Plan Plan: 1 Acute hypoxic respiratory failure secondary to MRSA sepsis and a component of a possible acute diastolic congestive heart failure/ fluid overload 2 MRSA bacteremia and sepsis, source is not clear, could be from the dialysis ca theter 3 Cardiac arrest, possible asystole or possible pulseless electrical activity, brief, responded to 2 minutes of CPR. 4 Chronic end-stage renal disease on hemodialysis, noncompliant and has been skipping dialysis. 5 Recurrent falls, could be related to his diabetic neuropathy/peripheral d iabetic neuropathy or could be cardiac in nature with cardiac arrhythmia, needs to be further investigated. 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 8 Chronic anemia secondary to chronic renal disease. 9 Suspect some component of obstructive sleep apnea syndrome. 10 Morbid obesity. 11 Right second toe cellulitis with necrosis of the dorsal tip 12 Abnormal liver enzymes, possible shock liver. Related to his cardiac arrest. Improving 13 leukocytosis and a white cell count is on the rise 14 altered mental status, metabolic encephalopathy, improving Plan: Continue current antibiotics, patient continues to have persistent bacteremia, vascular surgery has been consulted for removal of right subclavian hemodialysis catheter, and insertion of a new one in next 48 hours. Hemodynamically stable, he is in sinus mechanism. Patient is on oral anticoagulation and rate control medications, cardiology is following, will inquire cardiology whether or not patient requires a transesophageal echocardiogram in view of persistent bacteremia and presence of soft systolic murmur. We'll continue to monitor the patient in the ICU I performed a history & physical examination of the patient and discussed their management with my nurse practitioner, Tamiko Garcia. I reviewed the nurse practitioner's note and agree with the documented findings and plan of care. Lung sounds are positive for bibasilar crackles. The findings and the impression was discussed with the patient. I attest to the documentation by the nurse practitioner. Time with Patient: Less than 30
--- NOTE | 2020-04-17 09:27 | PN ---
PROGRESS NOTE Mr. Gillette is a 59-year-old male with known history of end-stage renal disease, on hemodialysis, history of paroxysmal atrial fibrillation who presented with sepsis and urinary tract infection. He had an episode of confusion. He continues to be in sinus mechanism with brief episode of atrial fibrillation. Hemodynamically, he is stable. He has no fever. His blood pressure is stable. He denies any dizziness or palpitation. He appears to be less confused compared to yesterday. He has no evidence of ventricular ectopic activity. He still has the gram-positive cocci from the PermCath. The plan is to undergo dialysis today and then remove his PermCath. Medication-webb, he is on amiodarone 200 mg daily, Eliquis 2.5 mg twice a day, Plavix 75 mg daily, isosorbide mononitrate 30 mg daily, Losartan 50 mg daily, metoprolol tartrate 25 mg twice a day. PHYSICAL EXAMINATION: Blood pressure running in the 120s with the heart rate in the 60s. LUNGS: Clear to auscultation anteriorly. HEART: Regular rate and rhythm. S1, S2. No S3. No rub appreciated with a systolic murmur. ABDOMEN: Soft, nontender. EXTREMITIES: No significant edema. LAB DATA: Lab data revealed a white blood cell of 32,000, hemoglobin 9.6, BUN and creatinine 47 and 3.6. AST of 98, ALT of 517, which is improving. IMPRESSION: 1. Sepsis with positive cultures from the PermCath. 2. End-stage renal disease, on hemodialysis. 3. Paroxysmal atrial fibrillation in sinus mechanism at this time, anticoagulated. 4. Change in mental status with confusion. 5. History of anemia. 6. Chronic occluded right coronary artery. RECOMMENDATION: We will continue on present dose of amiodarone. His dialysis catheter is planned to be removed today. I will cut down the dose of his hydralazine since his blood pressure is on the lower side. Depending on his progress, further recommendation will be made. MMODL / IJN: [id number] /
[2020-04-17] MEDS: HYDROcodone/APAP 10-325MG 1 EACH TAB PO PRN (09:29)
--- NOTE | 2020-04-17 10:46 | PCN ---
DATE OF SERVICE: 04/17/2020 PROCEDURE NOTE PREOPERATIVE DIAGNOSIS: Possible right IJ dialysis catheter infected with methicillin-resistant Staphylococcus aureus. PROCEDURE: Removal of the dialysis catheter. DESCRIPTION OF PROCEDURE: Patient was seen in his room. Right side of the neck and chest was prepped and draped in the usual sterile manner. The stitches were removed from the catheter site and catheter was removed. The tip of the catheter was sent for culture and sensitivity. Pressure dressing applied. Patient tolerated the procedure well. MMMELISSAL / BISIN: [id number] / [facility]
--- NOTE | 2020-04-17 11:38 | PN ---
PROGRESS NOTE Patient is seen for followup for end-stage renal disease. He has had persistent bacteremia. The PermCath was scheduled to be removed yesterday however it did not get removal until today. The patient is currently awake, comfortable. There was some pus at the end of the catheter when it was taken out. PHYSICAL EXAMINATION: On examination today, blood pressure was 133/71, heart rate 68 per minute. Patient is afebrile. EXAMINATION OF THE HEART: S1, S2. EXAMINATION OF THE LUNGS: Decreased breath sounds at bases. Abdomen is soft, nontender. Examination of lower extremities shows no evidence of edema. [employer] exam shows patient is awake, alert, and oriented x3. He is moving all 4 extremities. LABS: Labs show sodium 143, potassium 4.3, chloride 108, CO2 is 21, BUN 47, creatinine 3.63, hemoglobin 9.6 g/dL. ASSESSMENT: 1. End-stage renal disease, on hemodialysis on a Wednesday, Wednesday, Wednesday schedule. Currently status post removal of PermCath for persistent bacteremia with MRSA. 2. MRSA bacteremia, most likely source was the PermCath which was removed today. We will continue with the antibiotics. 3. Mental status changes secondary to sepsis. 4. Atrial fibrillation with rapid ventricular response, currently with controlled ventricular response. 5. Anemia of chronic disease. PLAN: Maintain off of catheter for now and assess on a daily basis for need for dialysis and if dialysis is needed, we will place a temporary catheter and remove it and the PermCath will not be placed until blood cultures are negative. MMODL / IJN: [id number] /
[2020-04-17 11:57] LABS: Glucose,Whole Blood 222 mg/dL (75-99)
--- NOTE | 2020-04-17 13:35 | P.PN ---
Subjective Progress Note Date: 04/17/20 HISTORY OF PRESENT ILLNESS 59 years old male patient of Dr. Mckeon with past medical history of end-stage renal disease on hemodialysis Wednesday and Wednesday, coronary artery disease post angioplasty, and stent placement last catheterization was February 09 with stent of the left circumflex and proximal LAD, atrial fibrillation, diabetes, GERD, hyperlipidemia, hypertension. He does have intermittent lesion along the mid LAD and follows Dr. Hinojosa on as outpatient. Patient was last admitted in February 16 with chest pain and unstable angina, comes in this time with change in mental status, and multiple falls at home. Patient is unable to provide any history due to increased drowsiness. History obtained from the chart. It appears patient had a fall in the bathroom as his leg gave out. He denies any dizziness or syncope episode. CT of the head was obtained that showed no acute lesions. Patient missed 2 dialysis appointment, last hemodialysis was 1 week ago. In the ER patient's blood pressure was 202/94 temp of 99 pulse 91 and respiratory rate 19 on assessment of patient's lab patient had a any, hemoglobin 10.7 hematocrit 32.4 sodium 133 chloride 92 bicarb 21 BUN 86 creatinine 7.56 glucose 237. Urinalysis does suggest leukocytosis with positive blood and positive protein. Urine culture was sent. On evaluation today patient is found to be lying in bed. He is unable to provide any history. Patient did Gabapentin, Dilaudid and 1 L of bolus of IV fluids. We will hold pain medication. Decrease gabapentin 100 3 times a day. Patient will be started on levofloxacin renally adjusted to 250 every 48 hours. Ativan reduced to 0.5 mg 3 times a day. Hold off diuretics. Nephrology consulted At 2:30 this afternoon patient became unresponsive as patient was hooked to the dialysis. The A team responded to the patient did mention patient was pulseless. A brief CPR was done for 2 minutes, with return of spontaneous circulation and return of the pulse with no need of epinephrine. Patient's blood pressure was found to be low. Cardiology consult will be placed. Echo will be ordered. Patient was noted to be in atrial fibrillation and was transferred to the ICU on nonrebreather mask. Another attempt was made to start the hemodialysis while patient was arousable and follows all commands he was found to be more lethargic. Patient's blood pressure dropped on hemodialysis and became unresponsive not responding to sternal rub. Was noted to be in A. fib with RVR. Patient was placed on BiPAP intubation was not required. 04/12 patient currently in the ICU. Vitals are stable with temp of 98 pulse 67 and respiratory rate 19 and blood pressure 156/71 oxygen saturation 95% on 40% on BiPAP. Patient has leukocytosis of 18 improved from 20 hemoglobin 9.9, sodium 134 chloride 97 bicarb 19 BUN 104 creatinine 8.15 phosphorus 10.7 and total bilirubin 1.7 AST 2932 ALT 2727 alkaline phosphatase 449. Cardiology evaluated the patient thinks patient's episode of unresponsiveness could be vasovagal from low blood pressure. Continue to monitor patient's blood pressure with possible orthostatics when patient is stable. Metoprolol dose increased to 25 twice a day. Initiated on amiodarone 100 mg daily patient is being dialyzed today with minimal ultrafiltration. We will hold hydralazine and Cozaar for systolic less than 125. Patient currently off pressors. Spoke to patient's at bedside who mentioned patient has been falling for the past few months. He had MRI of the lower back done as outpatient that suggested severe spinal stenosis. Patient was set up for PT as outpatient but has been forgetting to often due to weakness in his legs. He has a outpatient appointment pending with an orthopedic surgery 04/13: Patient still in the ICU , on BiPAP, he still have less responsiveness, quite hypertensive today back on vasopressor. Patient was diagnosed tolerate hemodialysis for long had only 1 hour, still currently in significant encephalopathy status, continue IV antibiotic for now there is a small gang renous spot on the right second toe. 04/14: Patient is off vasopressor, still on BiPAP, still running back and forth between tachycardia and A. fib. No hemodialysis done today. Patient is very confused is taking his lines And all attachment out he required a sitter today. 04/15: Patient is off vasopressor, off BiPAP, he is more awake alert today, he is more hemodynamically stable. He is on hemodialysis and blood pressure is holding well so far should be able to do full cycle of hemodialysis today. Source of infection is still unclear suspect to be dialysis catheter which might be pulled out to place another catheter either in the femoral area or use the fistula graft had in the left forearm. 04/16: Patient evaluated in the ICU. Patient is arousable but easily drifts back to sleep. He had dialysis yesterday, with possible plans for dialysis again today due to elevated BUN/creatinine. Possible source of infection still unclear and suspected to be dialysis catheter. Nephrology plans on repeat blood cultures via dialysis catheter, if positive will discuss discontinuing the IJ pe rmacath. Infectious disease added Cefepime for worsening white count, and continue on Vancomycin. Repeat chest x-ray shows cardiomegaly with left basilar atelectasis. Plans to transfer of the ICU today to select care unit. 04/17: Patient's right IJ permacath dialysis catheter was removed yesterday. Patient's nurse reports that there was pus on the end and this has been cultured. Patient remains in the intensive care unit but has been downgraded to cardiac stepdown unit. Patient has been afebrile, heart rate 57, blood pressure 109/59, pulse ox 100% on 2 L nasal cannula. occupational therapist rehab manager has been a sinus rhythm. He does have short bouts of atrial fibrillation most often noted when he drinks cold liquids. Repeat blood work reveals WBC of 32, hemoglobin 9.6, platelet count 285. BUN 47 creatinine 3.63, potassium 4.3. Blood sugars running between 85 and 166. Total bilirubin 1.3, AST 98, ALT 517, alkaline phosphatase 391. Liver function tests are improved from yesterday. Chest x-ray today reveals cardiomegaly. Interstitial density slightly increased. Correlate to exclude developing pulmonary vascular congestion. Left base remains under penetrated area and some underlying atelectasis or infiltrate or effusion possible. REVIEW OF SYSTEMS Constitutional: No fever, no chills, no night sweats. No weight change. Reported weakness, reported fatigue reported lethargy. Reported daytime sleepiness. EENT: No headache. No blurred vision or double vision, no loss of vision. No loss of Hearing, no ringing in the ears, no dizziness. No nasal drainage or congestion. No epistaxis. No sore throat. Lungs: No shortness of breath, cough, no sputum production. No wheezing. Cardiovascular: No chest pain, no lower extremity edema. No palpitations. No paroxysmal nocturnal dyspnea. No orthopnea. No lightheadedness or dizziness. No syncopal episodes. Abdominal: No abdominal pain. No nausea, vomiting. No diarrhea. No constipation. No bloody or tarry stools.. No loss of appetite. Genitourinary: No dysuria, increased frequency, urgency. No urinary retention. Musculoskeletal: No myalgias. No muscle weakness, no gait dysfunction, no frequent falls. No back pain. No neck pain. Integumentary: No wounds, no lesions. No rash or pruritus. No unusual bruising. No change in hair or nails. Neurologic: No aphasia. No facial droop. Reported change in mentation. No head injury. No headache. No paralysis. No paresthesia. Psychiatric: No depression. No anxiety. No mood swings. Endocrine: Noted abnormal blood sugars. No weight change. PHYSICAL EXAMINATION Gen: This is a 59-year-old male patient seen in the ICU. He is resting in bed and appears to be comfortable. Patient's very drowsy. HEENT: Head is atraumatic, normocephalic. Pupils equal, round. Sclerae is anicteric. NECK: Supple. No JVD. No lymphadenopathy. No thyromegaly. LUNGS: Clear to auscultation. No wheezes or rhonchi. No intercostal retr actions. HEART: Regular rate and rhythm. 2/6 systolic murmur. ABDOMEN: Soft. Bowel sounds are present. No masses. No tenderness. EXTREMITIES: No pedal edema. No calf tenderness. NEUROLOGICAL: Patient is oriented to person and place. Patient is somewhat fatigued and lethargic. He does open his eyes to verbal stimuli. ASSESSMENT AND PLAN 1. Sepsis and MRSA bacteremia secondary to dialysis catheter. Permacath has been removed as of yesterday and culture of tip done. Patient is followed by Dr. Presley and continued on cefepime and vancomycin. Plan is for temporary catheter placement in 2 days and then permanent will be done once all blood cultures are clear. 2. Metabolic encephalopathy secondary to sepsis, uremia, pain medication and benzodiazepines. Patient had missed 2 dialysis treatments. Lorazepam has been discontinued. 3. End-stage renal disease on hemodialysis. Patient received hemodialysis yesterday and permacath was discontinued. Plan is to hold for [address] temporary catheter. Permanent catheter will be placed once bacteremia is cleared. Consult with nephrology and vascular surgery appreciated. Continue PhosLo 1334 mg 3 times daily. 4. Fall secondary to degenerative disc disease and spinal stenosis. MRI as an outpatient revealed severe spinal stenosis. Patient has outpatient orthopedic evaluation pending. PT and OT following. 5. Acute syncopal episode most likely vasovagal, patient had brief CPR. Cardiology consult appreciated. 6. History of coronary artery disease with previous PTCA to LAD and circumflex. Lexiscan was negative on previous admission. Continue Plavix 75 mg daily, Imdur 30 mg daily, Lopressor 25 mg in the morning and evening. 7. Paroxysmal atrial fibrillation. Continue eliquis 2.5 mg twice daily and metoprolol, amiodarone at 200 mg daily. 8. Ischemic cardiomyopathy. Continue as in #60. 9. Diabetes mellitus type 2, insulin requiring. Continue Levemir 20 units daily, NovoLog scale before meals and at bedtime, 10. Diabetic neuropathy. Continue gabapentin 100 mg 3 times daily. 11. Hypertension. Continue hydralazine 25 mg 3 times daily, losartan 50 mg at bedtime. 12. Anemia of chronic disease. Continue to monitor. 13. GI prophylaxis. Continue Protonix. 14. DVT prophylaxis. Continue eliquis. DISCHARGE PLAN To be determined. Impression and plan of care have been directed as dictated by the signing physician. Katelyn Wesley nurse practitioner acting as scribe for signing physician. Objective - Vital Signs Vital signs: Vital Signs Temp 97.9 F 04/17/20 08:00 Pulse 68 04/17/20 08:00 Resp 12 04/17/20 08:00 BP 133/71 04/17/20 08:00 Pulse Ox 96 04/17/20 08:00 Intake & Output 04/16/20 04/17/20 04/17/20 18:59 06:59 18:59 Intake Total 540 150 310 Output Total 700 0 0 Balance -160 150 310 Weight 90.1 kg 89.4 kg Intake: IV 190 150 10 Cefepime 2 gm In Sodium 100 100 Chloride 0.9% 100 ml @ 25 mls/hr IVPB Q24H [facility] Rx# :[id number] KVO 90 50 10 Oral 350 300 Output: Urine 0 0 0 Hemodialysis 700 Other: Voiding Method Incontinent - Labs CBC & Chem 7: 04/17/20 03:17 04/17/20 03:17 Labs: Abnormal Lab Results - Last 24 Hours (Table) 04/16/20 04/17/20 04/17/20 Range/Units 21:17 03:17 03:17 WBC 32.0 H (3.8-10.6) k/uL RBC 3.57 L (4.30-5.90) m/uL Hgb 9.6 L (13.0-17.5) gm/dL Hct 31.9 L (39.0-53.0) % MCHC 30.2 L (31.0-37.0) g/dL RDW 16.8 H (11.5-15.5) % Neutrophils # 29.5 H (1.3-7.7) k/uL Lymphocytes # 0.7 L (1.0-4.8) k/uL Monocytes # 1.1 H (0-1.0) k/uL Chloride 108 H (98-107) mmol/L Carbon Dioxide 21 L (22-30) mmol/L BUN 47 H (9-20) mg/dL Creatinine 3.63 H (0.66-1.25) mg/dL Glucose 154 H (74-99) mg/dL POC Glucose (mg/dL) 124 H (75-99) mg/dL AST 98 H (17-59) U/L ALT 517 H (4-49) U/L Alkaline Phosphatase 391 H (38-126) U/L Total Protein 5.4 L (6.3-8.2) g/dL Albumin 2.5 L (3.5-5.0) g/dL 04/17/20 Range/Units 07:00 WBC (3.8-10.6) k/uL RBC (4.30-5.90) m/uL Hgb (13.0-17.5) gm/dL Hct (39.0-53.0) % MCHC (31.0-37.0) g/dL RDW (11.5-15.5) % Neutrophils # (1.3-7.7) k/uL Lymphocytes # (1.0-4.8) k/uL Monocytes # (0-1.0) k/uL Chloride (98-107) mmol/L Carbon Dioxide (22-30) mmol/L BUN (9-20) mg/dL Creatinine (0.66-1.25) mg/dL Glucose (74-99) mg/dL POC Glucose (mg/dL) 166 H (75-99) mg/dL AST (17-59) U/L ALT (4-49) U/L Alkaline Phosphatase (38-126) U/L Total Protein (6.3-8.2) g/dL Albumin (3.5-5.0) g/dL Microbiology - Last 24 Hours (Table) 04/15/20 11:23 Blood Culture Gram Stain - Final Blood Blood Culture - Final Methicillin resist S. aureus 04/15/20 11:25 Blood Culture Gram Stain - Final Blood Blood Culture - Final Methicillin resist S. aureus 04/14/20 16:58 Blood Culture Gram Stain - Final Blood Blood Culture - Final Methicillin resist S. aureus 04/14/20 03:47 Blood Culture Gram Stain - Final Blood Blood Culture - Final Methicillin resist S. aureus
--- NOTE | 2020-04-17 16:43 | P.PN ---
Subjective Progress Note Date: 04/17/20 04/17/2020: Patient continues to be significantly encephalopathic, drowsy, lethargic. Patient denies headache today. However appears inconsistent response. 04/16/2020: Patient seen for follow-up. Patient initially seen by Dr. Marco Nixon. Please refer to his note for detail. Patient has history of atrial fibrillation, CAD, CHF, diabetes, peripheral neuropathy, hyperlipidemia end-stage renal disease on hemodialysis, came to the hospital because of altered mental status, frequent falls. His legs would give out. Patient has missed his hemodialysis. Patient did have a cardiac arrest on 04/11/2020 lasted for less than 2 minutes. Patient had an episode of respiratory arrest the same day. Patient's altered mental status was felt to be related to toxic metabolic encephalopathy. CT head showed no acute intracranial process. CT of the cervical spine also negative. Patient has poorly controlled diabetes with A1c 10.1. Patient's B12 is > 4000, RBC folate is also elevated 1528. TSH is normal. Patient at this time continues to be encephalopathic. When asked, if he has headache, states he does and rates it severe. He is lethargic, somnolent, does open his eyes to calling his name, but then again goes back to sleepiness. Patient also admits to having back pain with back spasms. Patient's WBC 33.1, ammonia been 10.4, platelets 325. Sodium is 139 potassium 3.4, BUN 58, creatinine 4.73. Liver enzymes are significantly elevated with AST 89, ALT 814, with GGT 109. Creatinine kinase is normal. Objective - Vital Signs Vital signs: Vital Signs Temp 97.4 F L 04/17/20 16:00 Pulse 49 L 04/17/20 16:00 Resp 10 L 04/17/20 16:00 BP 83/48 04/17/20 16:00 Pulse Ox 100 04/17/20 16:00 Intake & Output 04/16/20 04/17/20 04/17/20 18:59 06:59 18:59 Intake Total 540 150 580 Output Total 700 0 0 Balance -160 150 580 Weight 90.1 kg 89.4 kg Intake: IV 190 150 30 Cefepime 2 gm In Sodium 100 100 Chloride 0.9% 100 ml @ 25 mls/hr IVPB Q24H [facility] Rx# :[id number] KVO 90 50 30 Oral 350 550 Output: Urine 0 0 0 Hemodialysis 700 Other: Voiding Method Incontinent - Exam On examination patient is a late middle aged male, who is obviously encephalopathic. He appears slightly worse than yesterday. He is somnolent, does open his eyes, answers appropriately. Speech is clear with some slurring due to somnolence but no obvious aphasia or dysarthria. His pupils are round and reacting. Visual justice could not be tested. Face is symmetric. Patient's strength is normal in the upper limbs distally and proximally. Patient did not cooperate with muscle strength testing of the lower extremities. Reflexes are hypoactive and plantars are downgoing. Sensory touch is equal. On lifting the leg, patient complains of some pain in the back. He could not localize where the pain is - Labs CBC & Chem 7: 04/17/20 03:17 04/17/20 03:17 Labs: Abnormal Lab Results - Last 24 Hours (Table) 04/16/20 04/17/20 04/17/20 Range/Units 21:17 03:17 03:17 WBC 32.0 H (3.8-10.6) k/uL RBC 3.57 L (4.30-5.90) m/uL Hgb 9.6 L (13.0-17.5) gm/dL Hct 31.9 L (39.0-53.0) % MCHC 30.2 L (31.0-37.0) g/dL RDW 16.8 H (11.5-15.5) % Neutrophils # 29.5 H (1.3-7.7) k/uL Lymphocytes # 0.7 L (1.0-4.8) k/uL Monocytes # 1.1 H (0-1.0) k/uL Chloride 108 H (98-107) mmol/L Carbon Dioxide 21 L (22-30) mmol/L BUN 47 H (9-20) mg/dL Creatinine 3.63 H (0.66-1.25) mg/dL Glucose 154 H (74-99) mg/dL POC Glucose (mg/dL) 124 H (75-99) mg/dL AST 98 H (17-59) U/L ALT 517 H (4-49) U/L Alkaline Phosphatase 391 H (38-126) U/L Total Protein 5.4 L (6.3-8.2) g/dL Albumin 2.5 L (3.5-5.0) g/dL 04/17/20 04/17/20 Range/Units 07:00 11:45 WBC (3.8-10.6) k/uL RBC (4.30-5.90) m/uL Hgb (13.0-17.5) gm/dL Hct (39.0-53.0) % MCHC (31.0-37.0) g/dL RDW (11.5-15.5) % Neutrophils # (1.3-7.7) k/uL Lymphocytes # (1.0-4.8) k/uL Monocytes # (0-1.0) k/uL Chloride (98-107) mmol/L Carbon Dioxide (22-30) mmol/L BUN (9-20) mg/dL Creatinine (0.66-1.25) mg/dL Glucose (74-99) mg/dL POC Glucose (mg/dL) 166 H 222 H (75-99) mg/dL AST (17-59) U/L ALT (4-49) U/L Alkaline Phosphatase (38-126) U/L Total Protein (6.3-8.2) g/dL Albumin (3.5-5.0) g/dL Microbiology - Last 24 Hours (Table) 04/17/20 08:20 Catheter Tip Culture - Preliminary Catheter Tip 04/15/20 11:23 Blood Culture Gram Stain - Final Blood Blood Culture - Final Methicillin resist S. aureus 04/15/20 11:25 Blood Culture Gram Stain - Final Blood Blood Culture - Final Methicillin resist S. aureus 04/14/20 16:58 Blood Culture Gram Stain - Final Blood Blood Culture - Final Methicillin resist S. aureus 04/14/20 03:47 Blood Culture Gram Stain - Final Blood Blood Culture - Final Methicillin resist S. aureus Assessment and Plan Assessment: * Altered mental status, due to toxic metabolic encephalopathy. * Chronic renal failure, missed hemodialysis prior to arrival. * History of septicemia with MRSA. * Elevated LFTs. Elevated ESR 95 * Poorly controlled diabetes Plan: * [place] cath was removed today. Per nurse report, it had possible pus, probably the source of infection. Catheter tip Cultures still pending. * Medical management as per IM. * If bacteremia persist, consider imaging of thoracic and/or lumbar spine. Discussed with ID. * Patient undergoing YAYO in the morning. * 2-D echo showed moderate concentric LVH, EF is 55-60%. Aortic valve is trileaflet and is mildly thickened. Mild aortic valve sclerosis. * Patient currently on cefepime and vancomycin.
[2020-04-17 16:55] LABS: Glucose,Whole Blood 172 mg/dL (75-99)
[2020-04-17] MEDS: CEFEPIME 1 GM in SODIUM CHLORIDE 0.9% 50 ML IVPB SCH (17:24)
[2020-04-17] MEDS: LOSARTAN 50 MG TAB PO SCH (20:50)
[2020-04-17 20:56] LABS: Glucose,Whole Blood 156 mg/dL (75-99)
--- NOTE | 2020-04-17 23:31 | PN ---
PROGRESS NOTE DATE OF SERVICE: 04/17/2020 REASON FOR FOLLOWUP: MRSA bacteremia, [id number] infection. INTERVAL HISTORY: The patient is currently afebrile. The patient is breathing comfortably. No chest pain or cough. No abdominal pain. Did complain of some low back pain. No vomiting. No diarrhea. PHYSICAL EXAMINATION: Blood pressure 111/51 with a pulse of 56, temperature 96.8. He is 99% on 2 L nasal cannula. General description is a middle-aged male lying in bed in no distress. Respiratory system: Unlabored breathing, decreased breath sounds in the bases. No wheeze. Heart: S1, S2. Regular rate and rhythm. Abdomen soft. No tenderness. EXTREMITIES: No edema of the feet. LABS: Hemoglobin 9.8, white count , BUN of 47, creatinine 3.63. DIAGNOSTIC IMPRESSION AND PLAN: Patient with MRSA bacteremia persistent likely secondary to [id number] has been discontinued. However, in view of the persistent bacteremia and did have elevated white count, we will need to look for any secondary or source. We will start with MRI of the lumbosacral spine. He may need a YAYO, continue with vancomycin. Pharmacy to dose and continue supportive care. MMODL / IJN: [id number] /
[2020-04-18 06:07] LABS: Glucose,Whole Blood 151 mg/dL (75-99)
[2020-04-18] MEDS: INSULIN ASPART (NovoLOG) 100 UNIT/ML VIAL SQ SCH ×4 (06:40→21:38)
[2020-04-18] MEDS ORDERED: fentaNYL (PF) 50 MCG/ML 2 ML AMP ONE (08:00)
[2020-04-18] MEDS ORDERED: IV FLUID CONTINUATION 950 ML IV ONE (08:15)
[2020-04-18] MEDS: BENZOCAINE SPRAY 1 CAN MUCOUS MEM ONE ×2 (08:23→08:26)
[2020-04-18] MEDS ORDERED: MIDAZOLAM 2 MG/2 ML VIAL IV ONE (08:27)
[2020-04-18] MEDS: DILTIAZEM 125 MG in SODIUM CHLORIDE 0.9% 100 ML IV SCH (08:52)
--- NOTE | 2020-04-18 09:16 | ECHOT ---
TRANSESOPHAGEAL ECHOCARDIOGRAM DATE OF SERVICE: April 18, 2020 PERFORMING PHYSICIAN: Andry Bowie MD. PROCEDURE PERFORMED: Transesophageal echocardiogram. INDICATION: Persistent blood culture for MRSA. COMPLICATION: None. LEVEL OF SEDATION: Moderate with sedation length of 15 minutes. PROCEDURE DESCRIPTION: After obtaining an informed consent, the patient was brought to the transesophageal echocardiogram room. The pulse oximetry and heart rate monitors were attached to the patient. Subsequently, the transesophageal echocardiogram probe was advanced through the bite guard to the mid esophageal where a 2D echocardiogram images as well as color Doppler images of various cardiac structures were obtained. Particular attention was made for any evidence of endocarditis. Please note that the procedure was performed using 2D echocardiogram, pulse-wave Doppler, continuous-wave Doppler. The interatrial septum was interrogated using contrast study. The procedure was completed without any complication. FINDINGS: The left ventricular dimension and systolic function appeared to be within normal limits. The ejection fraction appeared to be in the range of 50% and seems to be on the low normal. The right ventricle appeared to be mildly dilated. The left atrium and right atrium are mildly dilated. The left atrial appendage appeared to be free from any thrombus. The interatrial septum appeared to be intact. The aortic valve appeared to be thickened and calcified without stenosis and without regurgitation. The mitral valve seems to be also mildly thickened with moderate mitral regurgitation. There was moderate tricuspid regurgitation seen. The pulmonic valve appeared to be normal as well with moderate pulmonic insufficiency. CONCLUSION: 1. There is no evidence of infective endocarditis was identified. 2. No evidence of intracardiac valves vegetations or abscess noted. 3. Aortic sclerosis. The aortic valve is trileaflet and appeared to be mildly thickened with trace aortic insufficiency. 4. Thickened anterior and posterior mitral leaflets with moderate mitral regurgitation. 5. Moderate tricuspid regurgitation. 6. Moderate pulmonic insufficiency. 7. Mild biatrial enlargement. 8. Intact interatrial septum without any evidence of shunt. 9. Intact left atrial appendage without any thrombus. 10.Low normal left ventricular systolic function with ejection fraction around 50%. 11.No evidence of pericardial effusion. MMODL / IJN: [id number] /
--- NOTE | 2020-04-18 11:12 | P.PN ---
Subjective Progress Note Date: 04/18/20 HISTORY OF PRESENT ILLNESS 59 years old male patient of Dr. Mckeon with past medical history of end-stage renal disease on hemodialysis Wednesday and Wednesday, coronary artery disease post angioplasty, and stent placement last catheterization was February 09 with stent of the left circumflex and proximal LAD, atrial fibrillation, diabetes, GERD, hyperlipidemia, hypertension. He does have intermittent lesion along the mid LAD and follows Dr. Hinojosa on as outpatient. Patient was last admitted in February 16 with chest pain and unstable angina, comes in this time with change in mental status, and multiple falls at home. Patient is unable to provide any history due to increased drowsiness. History obtained from the chart. It appears patient had a fall in the bathroom as his leg gave out. He denies any dizziness or syncope episode. CT of the head was obtained that showed no acute lesions. Patient missed 2 dialysis appointment, last hemodialysis was 1 week ago. In the ER patient's blood pressure was 202/94 temp of 99 pulse 91 and respiratory rate 19 on assessment of patient's lab patient had a any, hemoglobin 10.7 hematocrit 32.4 sodium 133 chloride 92 bicarb 21 BUN 86 creatinine 7.56 glucose 237. Urinalysis does suggest leukocytosis with positive blood and positive protein. Urine culture was sent. On evaluation today patient is found to be lying in bed. He is unable to provide any history. Patient did Gabapentin, Dilaudid and 1 L of bolus of IV fluids. We will hold pain medication. Decrease gabapentin 100 3 times a day. Patient will be started on levofloxacin renally adjusted to 250 every 48 hours. Ativan reduced to 0.5 mg 3 times a day. Hold off diuretics. Nephrology consulted At 2:30 this afternoon patient became unresponsive as patient was hooked to the dialysis. The A team responded to the patient did mention patient was pulseless. A brief CPR was done for 2 minutes, with return of spontaneous circulation and return of the pulse with no need of epinephrine. Patient's blood pressure was found to be low. Cardiology consult will be placed. Echo will be ordered. Patient was noted to be in atrial fibrillation and was transferred to the ICU on nonrebreather mask. Another attempt was made to start the hemodialysis while patient was arousable and follows all commands he was found to be more lethargic. Patient's blood pressure dropped on hemodialysis and became unresponsive not responding to sternal rub. Was noted to be in A. fib with RVR. Patient was placed on BiPAP intubation was not required. 04/12 patient currently in the ICU. Vitals are stable with temp of 98 pulse 67 and respiratory rate 19 and blood pressure 156/71 oxygen saturation 95% on 40% on BiPAP. Patient has leukocytosis of 18 improved from 20 hemoglobin 9.9, sodium 134 chloride 97 bicarb 19 BUN 104 creatinine 8.15 phosphorus 10.7 and total bilirubin 1.7 AST 2932 ALT 2727 alkaline phosphatase 449. Cardiology evaluated the patient thinks patient's episode of unresponsiveness could be vasovagal from low blood pressure. Continue to monitor patient's blood pressure with possible orthostatics when patient is stable. Metoprolol dose increased to 25 twice a day. Initiated on amiodarone 100 mg daily patient is being dialyzed today with minimal ultrafiltration. We will hold hydralazine and Cozaar for systolic less than 125. Patient currently off pressors. Spoke to patient's at bedside who mentioned patient has been falling for the past few months. He had MRI of the lower back done as outpatient that suggested severe spinal stenosis. Patient was set up for PT as outpatient but has been forgetting to often due to weakness in his legs. He has a outpatient appointment pending with an orthopedic surgery 04/13: Patient still in the ICU , on BiPAP, he still have less responsiveness, quite hypertensive today back on vasopressor. Patient was diagnosed tolerate hemodialysis for long had only 1 hour, still currently in significant encephalopathy status, continue IV antibiotic for now there is a small gang renous spot on the right second toe. 04/14: Patient is off vasopressor, still on BiPAP, still running back and forth between tachycardia and A. fib. No hemodialysis done today. Patient is very confused is taking his lines And all attachment out he required a sitter today. 04/15: Patient is off vasopressor, off BiPAP, he is more awake alert today, he is more hemodynamically stable. He is on hemodialysis and blood pressure is holding well so far should be able to do full cycle of hemodialysis today. Source of infection is still unclear suspect to be dialysis catheter which might be pulled out to place another catheter either in the femoral area or use the fistula graft had in the left forearm. 04/16: Patient evaluated in the ICU. Patient is arousable but easily drifts back to sleep. He had dialysis yesterday, with possible plans for dialysis again today due to elevated BUN/creatinine. Possible source of infection still unclear and suspected to be dialysis catheter. Nephrology plans on repeat blood cultures via dialysis catheter, if positive will discuss discontinuing the IJ pe rmacath. Infectious disease added Cefepime for worsening white count, and continue on Vancomycin. Repeat chest x-ray shows cardiomegaly with left basilar atelectasis. Plans to transfer of the ICU today to select care unit. 04/17: Patient's right IJ permacath dialysis catheter was removed yesterday. Patient's nurse reports that there was pus on the end and this has been cultured. Patient remains in the intensive care unit but has been downgraded to cardiac stepdown unit. Patient has been afebrile, heart rate 57, blood pressure 109/59, pulse ox 100% on 2 L nasal cannula. eeg technician has been a sinus rhythm. He does have short bouts of atrial fibrillation most often noted when he drinks cold liquids. Repeat blood work reveals WBC of 32, hemoglobin 9.6, platelet count 285. BUN 47 creatinine 3.63, potassium 4.3. Blood sugars running between 85 and 166. Total bilirubin 1.3, AST 98, ALT 517, alkaline phosphatase 391. Liver function tests are improved from yesterday. Chest x-ray today reveals cardiomegaly. Interstitial density slightly increased. Correlate to exclude developing pulmonary vascular congestion. Left base remains under penetrated area and some underlying atelectasis or infiltrate or effusion possible. 04/18: Patient is seen today on the cardiac stepdown unit. Patient is awake and answering questions but speech is slow and slurred. Reviewed plan of care with him and he verbalizes understanding. Patient is afebrile, heart rate 66, blood pressure 123/55, pulse ox 99% on 2 L nasal cannula. Catheter tip culture is showing presumptive MRSA. Repeat blood cultures have been ordered to see if bacteremia is clearing. Patient is currently on vancomycin pharmacy dosing and cefepime. YAYO performed by Dr. Bowie reveals no evidence of infective endocardit is. No evidence of intracardiac valves vegetation or abscess. Aortic sclerosis, trileaflet mildly thickened with trace aortic insufficiency. Thickened anterior posterior mitral leaflets with moderate mitral regurgitation. Moderate tricuspid regurgitation. Moderate pulmonic insufficiency. Mild biatrial enlargement. Intact anterior atrial septum and intact left atrial appendage without thrombus. Low normal LV with EF of 50%. No pericardial effusion. REVIEW OF SYSTEMS Constitutional: No fever, no chills, no night sweats. No weight change. Reported continued weakness, reported fatigue reported lethargy. Reported daytime sleepiness. EENT: No headache. No blurred vision or double vision, no loss of vision. No loss of Hearing, no ringing in the ears, no dizziness. No nasal drainage or congestion. No epistaxis. No sore throat. Lungs: No shortness of breath, cough, no sputum production. No wheezing. Cardiovascular: No chest pain, no lower extremity edema. No palpitations. No paroxysmal nocturnal dyspnea. No orthopnea. No lightheadedness or dizziness. No syncopal episodes. Abdominal: No abdominal pain. No nausea, vomiting. No diarrhea. No c onstipation. No bloody or tarry stools.. No loss of appetite. Genitourinary: No dysuria, increased frequency, urgency. No urinary retention. Musculoskeletal: No myalgias. No muscle weakness, no gait dysfunction, no frequent falls. No back pain. No neck pain. Integumentary: No wounds, no lesions. No rash or pruritus. No unusual bruising. No change in hair or nails. Neurologic: No aphasia. No facial droop. Reported change in mentation. No head injury. No headache. No paralysis. No paresthesia. Psychiatric: No depression. No anxiety. No mood swings. Endocrine: Noted abnormal blood sugars. No weight change. PHYSICAL EXAMINATION Gen: This is a 59-year-old male patient seen on the cardiac stepdown unit. He is resting in bed and appears to be comfortable. Patient's very drowsy. HEENT: Head is atraumatic, normocephalic. Pupils equal, round. Sclerae is anicteric. NECK: Supple. No JVD. No lymphadenopathy. No thyromegaly. LUNGS: Clear to auscultation. No wheezes or rhonchi. No intercostal retractions. HEART: Regular rate and rhythm. 2/6 systolic murmur. ABDOMEN: Soft. Bowel sounds are present. No masses. No tenderness. EXTREMITIES: No pedal edema. No calf tenderness. NEUROLOGICAL: Patient is oriented to person and place. Patient is somewhat fatigued and lethargic. He does open his eyes to verbal stimuli. ASSESSMENT AND PLAN 1. Sepsis and MRSA bacteremia secondary to dialysis catheter. Permacath has been removed as of yesterday and culture of tip done. Patient is followed by Dr. Presley and continued on cefepime and vancomycin. Plan is for temporary catheter placement in 2 days and then permanent will be done once all blood cultures are clear. 2. Metabolic encephalopathy secondary to sepsis, uremia, pain medication and benzodiazepines improving. Lorazepam has been discontinued. 3. End-stage renal disease on hemodialysis. Patient received hemodialysis yesterday and permacath was discontinued. Plan is to hold for [address] temporary catheter. Permanent catheter will be placed once bacteremia is cleared. Consult with nephrology and vascular surgery appreciated. Continue PhosLo 1334 mg 3 times daily. 4. Fall secondary to degenerative disc disease and spinal stenosis. MRI as an outpatient revealed severe spinal stenosis. Patient has outpatient orthopedic evaluation pending. PT and OT following. 5. Acute syncopal episode most likely vasovagal, patient had brief CPR. Car diology consult appreciated. 6. History of coronary artery disease with previous PTCA to LAD and circumflex. Lexiscan was negative on previous admission. Continue Plavix 75 mg daily, Imdur 30 mg daily, Lopressor 25 mg in the morning and evening. 7. Paroxysmal atrial fibrillation. Continue eliquis 2.5 mg twice daily and metoprolol, amiodarone at 200 mg daily. 8. Ischemic cardiomyopathy. Continue as in #60. 9. Diabetes mellitus type 2, insulin requiring. Continue Levemir 20 units inez y, NovoLog scale before meals and at bedtime, 10. Diabetic neuropathy. Continue gabapentin 100 mg 3 times daily. 11. Hypertension. Continue hydralazine 25 mg 3 times daily, losartan 50 mg at bedtime. 12. Anemia of chronic disease. Continue to monitor. 13. GI prophylaxis. Continue Protonix. 14. DVT prophylaxis. Continue eliquis. DISCHARGE PLAN [facility]. Impression and plan of care have been directed as dictated by the signing physician. Katelyn Wesley nurse practitioner acting as scribe for signing physician. Objective - Vital Signs Vital signs: Vital Signs Temp 97.8 F 04/18/20 04:00 Pulse 66 04/18/20 08:35 Resp 16 04/18/20 08:35 BP 123/55 04/18/20 08:35 Pulse Ox 99 04/18/20 08:31 Intake & Output 04/17/20 04/18/20 04/18/20 18:59 06:59 18:59 Intake Total 580 100 50 Output Total 0 0 Balance 580 100 50 Weight 90 kg Intake: IV 30 100 50 KVO 30 100 Oral 550 0 Output: Urine 0 0 Other: Voiding Method Incontinent # Voids 1 # Bowel Movements 0 - Labs CBC & Chem 7: 04/17/20 03:17 04/17/20 03:17 Labs: Abnormal Lab Results - Last 24 Hours (Table) 04/17/20 04/17/20 04/17/20 Range/Units 11:45 16:44 20:53 POC Glucose (mg/dL) 222 H 172 H 156 H (75-99) mg/dL 04/18/20 Range/Units 06:07 POC Glucose (mg/dL) 151 H (75-99) mg/dL Microbiology - Last 24 Hours (Table) 04/17/20 08:20 Catheter Tip Culture - Preliminary Catheter Tip 04/15/20 11:23 Blood Culture Gram Stain - Final Blood Blood Culture - Final Methicillin resist S. aureus 04/15/20 11:25 Blood Culture Gram Stain - Final Blood Blood Culture - Final Methicillin resist S. aureus 04/14/20 16:58 Blood Culture Gram Stain - Final Blood Blood Culture - Final Methicillin resist S. aureus 04/14/20 03:47 Blood Culture Gram Stain - Final Blood Blood Culture - Final Methicillin resist S. aureus
[2020-04-18 11:26] LABS: Calcium 8.5 mg/dL (8.4-10.2); Potassium 4.1 mmol/L (3.5-5.1)
[2020-04-18 12:03] LABS: Glucose,Whole Blood 172 mg/dL (75-99)
[2020-04-18] MEDS: PANTOPRAZOLE 40 MG TABLET PO SCH (12:42)
[2020-04-18] MEDS: GABAPENTIN 100 MG CAP PO SCH ×3 (12:42→23:34)
[2020-04-18] MEDS: METOPROLOL TARTRATE 25 MG TAB PO SCH ×2 (12:42→21:37)
[2020-04-18] MEDS: ISOSORBIDE MONONITRATE ER 30 MG TAB.ER.24H PO SCH (12:42)
[2020-04-18] MEDS: CLOPIDOGREL 75 MG TAB PO SCH (12:42)
[2020-04-18] MEDS: hydrALAZINE HCL 25 MG TAB PO SCH ×3 (12:42→23:34)
[2020-04-18] MEDS: APIXABAN 2.5 MG TABLET PO SCH ×3 (12:43→22:24)
[2020-04-18] MEDS: allopurinoL 100 MG TAB PO SCH (12:43)
[2020-04-18] MEDS: AMIODARONE 200 MG TAB PO SCH (12:43)
--- NOTE | 2020-04-18 13:11 | P.PN ---
Subjective Progress Note Date: 04/18/20 Principal diagnosis: MRSA bacteremia, acute exacerbation of diastolic CHF, cardiac arrest This is a 59-year-old white male admitted on 04/11/2020, admitted mostly with a diagnosis of sepsis and urinary tract infection, patient is known to have history of multiple medical problems, and has been falling recently quite frequently, is also known to have history of end-stage renal disease, on hemodialysis for the last 3 years, and he has a dialysis catheter in his right subclavian placed apparently a few weeks ago. He did have previous history of left AV fistula which has been nonfunctional recently and that is why he had a subclavian dialysis catheter. Patient is primarily a patient with Dr. Mckeon, he receives dialysis is normally on Wednesday and Wednesday, he had previous history of coronary artery disease and previous angioplasty, stent placement. His other medical problems include chronic atrial fibrillation diabetes dyslipidemia hypertension, and diabetic neuropathy. This time the patient was admitted mostly with mental status change, multiple falls at home, apparently had a recent fall in the bathroom and had trauma CT of the head was unremarkable on admission. Patient missed 2 dialysis appointments and in the ER his blood pressure was significantly elevated at 202/94. He had a low-grade fever, he had a relatively normal electrolytes, blood sugar was 237, and his urinalysis showed pyuria and bacteriuria. Hence patient was admitted mostly with the impression of UTI and sepsis. At 2:30 this afternoon, patient was receiving dialysis, as soon as dialysis was started, patient had a sudden episode of unresponsiveness, he was pulseless according to the team responded to him. Patient had less than 2 minutes of CPR, that there was return of spontaneous circulation, and return of pulse. No monitor was noted at the time, but by the time he woke up, patient was in atrial fibrillation with fairly controlled rhythm. Patient was transferred to the ICU, placed on a nonrebreather mask hemodynamically stable, I was asked to see him on consu ltation since he was transferred to the intensive care unit. Seen in the ICU, patient is on a nonrebreather mask, which I will transition to a high flow nasal cannula, patient is hemodynamically stable, he was in normal sinus rhythm, and he is a bit lethargic, but arousable, and follows all instruct ions. Labs from today were all reviewed. Again noted to have leukocytosis with WBC count 20.2, hemoglobin is 9.9. Troponin is 0.118, and his urine did show evidence of bacteriuria and pyuria. Reevaluated today on 04/12/2019, patient remains in the ICU, he had another episode of near syncope yesterday, patient was noted to become hypotensive upon connection to the dialysis machine. Patient had to be Ambu bag, did not require CPR this time, he had a pulse, but he was hypotensive. I saw the patient shortly after that episode, and his blood pressure was marginal. Recommended starting the patient on norepinephrine and recommended that we proceed with his hemodialysis. Patient did well overnight, did not have any further episodes, tolerated the hemodialysis well yesterday. Presently asymptomatic, patient has paroxysmal atrial fibrillation, but presently in sinus rhythm. On BiPAP which I will discontinue and place on a nasal cannula, and it will be titrated accordingly. Patient is definitely more awake today, alert and oriented 3. However his blood cultures are positive for gram-positive cocci, final identification is not available, and his urine from 04/11 was positive for pr esumptive staph aureus. Hence we will recommend empirically starting the patient on vancomycin, and we will initiate infectious disease consultation on this patient. Obviously the patient may have a positive urinary tract infection with gram-positive bacteremia. During my evaluation of this patient, he was undergoing dialysis, and he seems to be tolerating that quite well. His WBC count is 18.4 hemoglobin is 9.9. Electrolytes are normal bicarb is 19 BUN is 104 creatinine 8.15. Liver enzymes were noted to be elevated, his AST is 2932 and his ALT is 2723 with alkaline phosphatase of 449 could be related to hypoperfusion at the time when the patient had episodes of low blood pressure and at one point he had no pulse according to the team responded to his code. Chest x-ray showed evidence of mild interstitial edema, suspect diastolic congestive heart failure or pulmonary edema secondary to his underlying chronic renal disease Reevaluated today on 04/13/2020, patient remains in the ICU, presently undergoing hemodialysis. Patient remains hemodynamically stable, off BiPAP, seems to have intermittent atrial fibrillation that seems to improve once he goes on BiPAP. ABG did not reflect hypercapnia at any point. Patient is on oral anticoagulation therapy, he is not requiring norepinephrine anymore. Denies any chest pain or discomfort, no episodes of asystole over the last 24 hours, and no episodes of syncope or near syncope. Patient is intermittently confused and requires sedation and soft restraints blood cultures are now positive for MRSA and the patient is now on vancomycin and Levaquin. Potential sources for his MRSA bacteremia could be that his dialysis catheter or right second toe which shows some area of necrosis. Infectious disease has been consulted. For his agitation patient is requiring Ativan every 4 hours. As needed. Pulmonary-webb remains on 2 L nasal cannula or at times on BiPAP at 50% FiO2 with IPAP of 12 and EPAP of 5. On 04/14/2020 the patient is being seen in follow-up in the intensive care unit. The patient this morning is on a BiPAP at a pressure of 12/6 cm of water and FiO2 of 40%. The patient was in pulmonary edema at a time of his admission. He required dialysis since he has been an and that is an improvement in his overall volume status. The patient had no chest x-ray today. The chest x-ray from yesterday showedNo acute abnormalities. There may be some small left-sided pleural effusion. He has a permacath in his right. His last session of hemodialysis was yesterday. Dialysis session to be cut short because of low blood pressure and a chest fibrillation with rapid ventricular response. This morning, his blood pressure is stable on no pressors. He is in in sinus rhythm. He was on norepinephrine infusion yesterday for blood pressure support and this has been also discontinued. The most recent blood cultures negative and the patient remains on vancomycin. He was having possible causes earlier in the most recent possible cultures from the 2020. Neurologically, he is impaired and at times agitated requiring Ativan and the CAT scan of the brain and the cervical spine that was done, admission was was within normal limits. His echocardiogram showed an ejection fraction of 55-60%, mild aortic sclerosis, no pericardial effusion, not abnormalities otherwise. On 04/15/2020 patient seen in follow-up in intensive care unit, he is lethargic, arousable, however drifts back to sleep if left unstimulated, no signs of any respiratory distress, breathing comfortably, he is currently on 2 L of oxygen with pulse ox of 98%, afebrile, hemodynamically stable, he is on 0.9 normal saline at a rate of 10 ML per hour, he has been alternating between nasal cannula and BiPAP support with pressure of 12/6 and FiO2 of 50%. His last chest x-ray from 04/13/2020 showed cardiomegaly no obvious heart failure. Mild new infiltrate in the left lower lobe. He is on Levaquin and vancomycin for MRSA bacteremia, yesterday's blood cultures showed gram-positive cocci in clusters on the preliminary report. White count continues to be significantly elevated at 32.3, hemoglobin is 10.2, BUN is 86, creatinine is 6.2, electrolytes are relat ively unremarkable. Patient's last hemodialysis session was on 04/14/2020 with removal of 800 mL of fluid. Blood pressure has been stable, patient is not requiring any vasopressor support. Patient is on Eliquis for anticoagulation for recent history of A. fib with RVR, he is currently in sinus rhythm with controlled rate. Cardiology is following On 04/16/2020 patient seen in follow-up in intensive care unit, he is slightly more arousable on today's exam, he is given some simple answers, he is oriented to person and place, disoriented to time. Drifts back to sleep if left unstimulated. Appears to be in no acute distress although he does admit to being short of breath at times. Seems to be breathing comfortably currently, he is on 2 L of oxygen with pulse ox of 99%, he had hemodialysis yesterday would removal of 1 L of fluid. His been afebrile. His follow-up blood cultures from 04/15/2020 continue to show gram-positive cocci in groups. Patient continues on vancomycin and cefepime for antibiotic coverage, ID service is following, patient has been having intermittent runs of A. fib with RVR, and spontaneously converts back to sinus. He is in sinus mechanism right now. Cardiology is following, patient is off the Cardizem infusion, he is on oral amiodarone, and he is on Eliquis for anticoagulation. On 04/17/2000 patient seen in follow-up in the intensive care unit, he is currently on 3 L of oxygen, did not require BiPAP support, pulse ox is 100% on 3 L, he is breathing comfortably, he is lethargic, but arousable, he wakes up and answers simple questions, denies any chest discomfort, is currently in sinus mechanism on the monitor, his had intermittent self-limiting bouts of atrial fibrillation, he is on oral amiodarone and Eliquis for anticoagulation. Remains on cefepime and vancomycin, and his follow-up blood cultures from 04/15/2020 are again positive for presumptive MRSA. ID service is following, the source of bacteremia is likely related to hemodialysis catheter in the right subclavian area, fasting surgery has been consulted for removal of the hemodialysis catheter today and insertion of a new hemodialysis catheter in the next 48 hours. Patient has been afebrile, patient had hemodialysis yesterday would removal of 700 mL of fluid. After hemodialysis he did have some lower blood pressures with systolic in the 80s, and in view of relative hypotension his transfer out of ICU was held. On 2020 patient seen in follow-up on selective care unit, his last hemodialysis session was yesterday would removal of 700 mL of fluid. No signs of any acute respiratory distress, patient is on 2 L of oxygen pulse ox is 97%, his been afebrile, vital signs have been stable. His right subclavian permacath has been discontinued, today's labs have been reviewed, no CBC, BMP showed creatinine 5.19, BUN is 70, potassium is 4.1. His liver enzymes were improving on yesterday's labs. He has been afebrile. His last follow-up blood culture from 04/17/2020 showed presumptive MRSA. he continues on cefepime and vancomycin, ID service is following. Objective - Vital Signs Vital signs: Vital Signs Temp 98.6 F 04/18/20 09:00 Pulse 66 04/18/20 09:00 Resp 18 04/18/20 09:00 BP 111/59 04/18/20 09:00 Pulse Ox 97 04/18/20 09:00 Intake & Output 04/17/20 04/18/20 04/18/20 18:59 06:59 18:59 Intake Total 580 100 50 Output Total 0 0 Balance 580 100 50 Weight 90 kg Intake: IV 30 100 50 KVO 30 100 Oral 550 0 Output: Urine 0 0 Other: Voiding Method Incontinent Incontinent # Voids 1 # Bowel Movements 0 - Exam GENERAL EXAM: Sleepy, but arousable to voice, 59-year-old on 3l/min of oxygen a pulse ox of 100%, comfortable in no apparent distress. HEAD: Normocephalic/atraumatic. EYES: Normal reaction of pupils, equal size. Conjunctiva pink, sclera white. NOSE: Clear with pink turbinates. THROAT: No erythema or exudates. NECK: No masses, no JVD, no thyroid enlargement, no adenopathy. CHEST: No chest wall deformity. Symmetrical expansion. Right subclavian area hemodialysis catheter in place LUNGS: Equal air entry with no crackles, wheeze, rhonchi or dullness. CVS: Regular rate and rhythm, normal S1 and S2, no gallops, soft systolic murmur, loudest at the left midclavicular line fourth to fifth intercostal space, no rubs ABDOMEN: Soft, nontender. No hepatosplenomegaly, normal bowel sounds, no guarding or rigidity. EXTREMITIES: No clubbing, no edema, no cyanosis, 2+ pulses and upper and lower extremities. Left upper arm AV shunt in place, with positive bruit and thrill MUSCULOSKELETAL: Muscle strength and tone normal. SPINE: No scoliosis or deformity SKIN: No rashes. CENTRAL NERVOUS SYSTEM: he is encephalopathic. No focal deficits, tone is normal in all 4 extremities. - Labs CBC & Chem 7: 04/17/20 03:17 04/18/20 08:51 Labs: Abnormal Lab Results - Last 24 Hours (Table) 04/17/20 04/17/20 04/18/20 Range/Units 16:44 20:53 06:07 Chloride (98-107) mmol/L BUN (9-20) mg/dL Creatinine (0.66-1.25) mg/dL Glucose (74-99) mg/dL POC Glucose (mg/dL) 172 H 156 H 151 H (75-99) mg/dL 04/18/20 04/18/20 Range/Units 08:51 12:01 Chloride 108 H (98-107) mmol/L BUN 70 H (9-20) mg/dL Creatinine 5.19 H (0.66-1.25) mg/dL Glucose 153 H (74-99) mg/dL POC Glucose (mg/dL) 172 H (75-99) mg/dL Microbiology - Last 24 Hours (Table) 04/17/20 08:20 Catheter Tip Culture - Preliminary Catheter Tip Presumptive MRSA 04/15/20 11:23 Blood Culture Gram Stain - Final Blood Blood Culture - Final Methicillin resist S. aureus 04/15/20 11:25 Blood Culture Gram Stain - Final Blood Blood Culture - Final Methicillin resist S. aureus Assessment and Plan Plan: 1 Acute hypoxic respiratory failure secondary to MRSA sepsis and a component of a possible acute diastolic congestive heart failure/ fluid overload 2 MRSA bacteremia and sepsis, source is not clear, could be from the dialysis catheter 3 Cardiac arrest, possible asystole or possible pulseless electrical activity, brief, responded to 2 minutes of CPR. 4 Chronic end-stage renal disease on hemodialysis, noncompliant and has been skipping dialysis. 5 Recurrent falls, could be related to his diabetic neuropathy/peripheral diabetic neuropathy or could be cardiac in nature with cardiac arrhythmia, needs to be further investigated. 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 8 Chronic anemia secondary to chronic renal disease. 9 Suspect some component of obstructive sleep apnea syndrome. 10 Morbid obesity. 11 Right second toe cellulitis with necrosis of the dorsal tip 12 Abnormal liver enzymes, possible shock liver. Related to his cardiac arrest. Improving 13 leukocytosis and a white cell count is on the rise 14 altered mental status, metabolic encephalopathy, improving Plan: Continue current medical treatment, continue the Lasix per ID service recommendations, permacath has been discontinued, transesophageal echocardiogram completed showing no evidence of intracardiac valve vegetation or infective endocarditis. No fever or chills, may use BiPAP as needed, continue weaning FiO2. I performed a history & physical examination of the patient and discussed their management with my nurse practitioner, Tamiko Garcia. I reviewed the nurse practitioner's note and agree with the documented findings and plan of care. Lung sounds are positive for bibasilar crackles. The findings and the impression was discussed with the patient. I attest to the documentation by the nurse practitioner. Time with Patient: Less than 30
--- NOTE | 2020-04-18 14:01 | PN ---
PROGRESS NOTE Mr. Gillette is a 59-year-old male with known history of heart disease, end-stage renal disease on hemodialysis, paroxysmal atrial fibrillation who presents with sepsis and urinary tract infection. He had recurrent positive blood culture from the PermCath that was removed yesterday. He underwent YAYO today to rule out any endocarditis. There was no evidence of vegetations. On the YAYO that was performed by Dr. Bowie today, his ejection fraction was reported to be in the 50% with moderate tricuspid, mitral and pulmonic regurgitation. He is awake, alert, and confused. Hemodynamically, he is stable. He is in sinus mechanism. There is no episode of atrial fibrillation. He continues to be at this time on amiodarone 200 mg daily, Eliquis 2.5 mg twice a day, Plavix 75 mg daily, hydralazine 25 mg 3 times a day, insulin, isosorbide mononitrate 30 mg daily, losartan 50 mg daily, metoprolol tartrate 25 mg twice a day. PHYSICAL EXAMINATION: Blood pressure 111/50 with the heart rate in the 60s. LUNGS: No wheezes. HEART: Regular rate and rhythm. S1, S2. No S3. No rub with a systolic murmur. ABDOMEN: Soft, nontender. EXTREMITIES: No edema. LAB DATA: Lab data revealed a BUN and creatinine of 70 and 5.19, potassium 4.1. IMPRESSION: 1. Change in mental status with sepsis and positive blood pressure. His PermCath has been removed. 2. End-stage renal disease, on hemodialysis. 3. History of coronary artery disease. 4. Paroxysmal atrial fibrillation, remains in sinus mechanism, anticoagulated. 5. History of diabetes. 6. Anemia. RECOMMENDATION: From the cardiac standpoint, will continue present therapy on the present regimen. Depending on his progress, further recommendation will be made. MMODL / IJN: [id number] /
--- NOTE | 2020-04-18 15:26 | PN ---
PROGRESS NOTE Patient is seen for followup for end-stage renal disease. He has persistent MRSA bacteremia and PermCath was removed yesterday. The patient has been transferred out of the ICU. He is awake, comfortable. He has been confused at times. PHYSICAL EXAMINATION: Blood pressure this morning 123/55, heart rate 66 per minute. He is afebrile. EXAMINATION OF THE HEART: S1 and S2. EXAMINATION OF LUNGS: Decreased breath sounds at bases. ABDOMEN: Soft, non-tender. Examination of lower extremities shows significant improvement in edema. Chronic skin changes noted. CUSTOMER SALES DISTRIBUTOR exam shows patient is moving all 4 extremities. He has had episodes of confusion. LABS: Sodium 141, potassium 4.1, chloride 108, BUN 70, creatinine 5.19. ASSESSMENT: 1. End-stage renal disease, on hemodialysis on a Wednesday, Wednesday, Wednesday schedule as outpatient. However, dialysis catheter has been removed secondary to persistent bacteremia with MRSA. The patient is being assessed on a daily basis for need for renal replacement therapy. 2. Methicillin-resistant Staphylococcus aeruginosa bacteremia associated with underlying PermCath infection, status post removal of catheter, maintained on vancomycin, being followed by Infectious Disease. We will repeat blood cultures today, and most likely we will need to place a temporary catheter for dialysis prior to PermCath insertion. 3. Atrial fibrillation with rapid ventricular response, currently with controlled ventricular response. 4. Chronic kidney disease mineral bone disorder, maintained on PhosLo. 5. Encephalopathy and mental status changes related to sepsis and some degree of uremia as well, now improved. PLAN: Obtain daily labs and assess on a daily basis for need for dialysis. If the patient needs dialysis, we will place a temporary dialysis catheter, dialyze him consecutively for 2 to 3 days and remove the Blake catheter. Check blood cultures today. MMODL / IJN: [id number] /
[2020-04-18] MEDS ORDERED: IOPAMIDOL CONTRAST (ORAL USE) VIAL PO PRN (16:19)
[2020-04-18 16:33] LABS: Glucose,Whole Blood 193 mg/dL (75-99)
[2020-04-18] MEDS: INSULIN DETEMIR (LEVEMIR) 100 UNIT/ML SYR SQ SCH (16:42)
[2020-04-18] MEDS: CEFEPIME 1 GM in SODIUM CHLORIDE 0.9% 50 ML IVPB SCH (16:51)
[2020-04-18] MEDS: IOPAMIDOL CONTRAST (ORAL USE) VIAL PO PRN ×2 (17:35→18:28)
--- NOTE | 2020-04-18 21:00 | CT ---
EXAMINATION TYPE: CT abdomen pelvis w con DATE OF EXAM: 04/18/2020 COMPARISON: 07/25/2015. HISTORY: Abdomen pain/bacteria. Pt labs-GFR 11, Creat 5.19, B-70. Per SAP, who called on pt, pt doesn t have dialysis catheter. Ordering travel agency manager Dr. Nguyen consulted, bc pt doesnt currently have dial ysis catheter. Dr. Nguyen ok to inject CT DLP: 1862 mGycm Automated exposure control for dose reduction was used. TECHNIQUE: Helical acquisition of images was performed from the lung bases through the pelvis. CONTRAST: Performed with Oral Contrast and with IV Contrast, patient injected with 80 mL of Isovue 300. FINDINGS: LUNG BASES: Small left greater than right pleural effusions with adjacent small compressive consolida tions. LIVER/GB: No significant abnormality is appreciated. Cholecystectomy. PANCREAS: No significant abnormality is seen. SPLEEN: No significant abnormality is seen. ADRENALS: No significant abnormality is seen. KIDNEYS: No bilateral hydronephrosis or nephrolithiasis. Simple appearing 2.1 cm right renal cyst. FREE AIR: No free air is visualized. RETROPERITONEAL ADENOPATHY: None visualized REPRODUCTIVE ORGANS: No significant abnormality is seen URINARY BLADDER: Mild urinary bladder wall thickening. PELVIC ADENOPATHY: None visualized. OSSEOUS STRUCTURES: No significant abnormality is seen. BOWEL: Otherwise no significant abnormality is seen. Small fat-containing periumbilical hernia. OTHER: Moderate to advanced atherosclerotic disease. Moderate anasarca. IMPRESSION: MODERATE ANASARCA. SMALL BILATERAL PLEURAL EFFUSIONS WITH ADJACENT ATELECTASIS. SUPERIMPOSED INFILTRATES NOT EXCLUDED. MILD URINARY BLADDER WALL THICKENING, CORRELATE FOR CYSTITIS. NO SIGNIFICANT CONTRAST EXCRETION INTO THE RENAL COLLECTING SYSTEM ON THE DELAYED IMAGES, IN KEEPING WITH HISTORY OF CHRONIC KIDNEY DISEASE. OTHERWISE NO SIGNIFICANT INTRA-ABDOMINAL/PELVIC ABNORMALITY.
[2020-04-18 21:30] LABS: Glucose,Whole Blood 235 mg/dL (75-99)
[2020-04-18] MEDS: LOSARTAN 50 MG TAB PO SCH (21:37)
--- NOTE | 2020-04-18 22:41 | PN ---
PROGRESS NOTE DATE OF SERVICE: 04/18/2020 REASON FOR FOLLOWUP: MRSA bacteremia secondary to PermCath infection. INTERVAL HISTORY: The patient is currently afebrile, has been breathing comfortably. He was complaining of some abdominal pain and some nausea but no vomiting. No diarrhea. No chest pain, shortness of breath or cough. PHYSICAL EXAMINATION: Blood pressure 119/56, pulse of 62, temperature 98.2. He is 97% on 2 L nasal cannula. General description is a middle-aged male lying in bed in no distress. RESPIRATORY SYSTEM: Unlabored breathing. Clear to auscultation anteriorly. HEART: S1, S2. Regular rate and rhythm. ABDOMEN: Soft. No tenderness. LABS: BUN of 70, creatinine 5.19. Blood culture and catheter tip culture so far positive. DIAGNOSTIC IMPRESSION AND PLAN: Patient with methicillin-resistant Staphylococcus aeruginosa bacteremia secondary to the PermCath, which has been discontinued. YAYO was negative for any endocarditis. The patient did have a CT of abdomen and pelvis with contrast that did not show any acute intraabdominal or any abnormality to the spine. MRI could not be done because of his renal failure as per discussion with the gravure press set up operator. The patient is covered with vancomycin. Daily blood culture to document clearance of his bacteremia and monitor his clinical course closely. MMODL / IJN: [id number] /
[2020-04-19 06:19] LABS: Glucose,Whole Blood 205 mg/dL (75-99)
[2020-04-19] MEDS: INSULIN ASPART (NovoLOG) 100 UNIT/ML VIAL SQ SCH ×4 (06:30→20:51)
[2020-04-19 07:43] LABS: Calcium 8.7 mg/dL (8.4-10.2); Potassium 4.4 mmol/L (3.5-5.1)
[2020-04-19 07:47] LABS: Vancomycin,Random 21.5 ug/mL
[2020-04-19 08:02] LABS: Anisocytosis Slight; Basophils # (A) 0.1 k/uL (0-0.2); Basophils % (A) 0 %; Eosinophils # (A) 0.2 k/uL (0-0.7); Eosinophils % (A) 1 %; HGB 8.6 gm/dL (13.0-17.5); Hypochromasia Moderate; Lymphocytes # (A) 0.6 k/uL (1.0-4.8); Lymphocytes % (A) 2 %; MCH 26.8 pg (25.0-35.0); MCHC 30.6 g/dL (31.0-37.0); MCV 87.6 fL (80.0-100.0); Mean Platelet Volume 7.6; Monocytes # (A) 0.8 k/uL (0-1.0); Monocytes % (A) 3 %; Neutrophils # (A) 26.4 k/uL (1.3-7.7); Neutrophils % (A) 93 %; Platelet Count 285 k/uL (150-450); WBC 28.4 k/uL (3.8-10.6)
[2020-04-19] MEDS: DILTIAZEM 125 MG in SODIUM CHLORIDE 0.9% 100 ML IV SCH (09:08)
[2020-04-19] MEDS: AMIODARONE 200 MG TAB PO SCH (09:14)
[2020-04-19] MEDS: METOPROLOL TARTRATE 25 MG TAB PO SCH ×2 (09:14→20:51)
[2020-04-19] MEDS: ISOSORBIDE MONONITRATE ER 30 MG TAB.ER.24H PO SCH (09:14)
[2020-04-19] MEDS: allopurinoL 100 MG TAB PO SCH (09:14)
[2020-04-19] MEDS: hydrALAZINE HCL 25 MG TAB PO SCH ×3 (09:14→20:51)
[2020-04-19] MEDS: PANTOPRAZOLE 40 MG TABLET PO SCH (09:14)
[2020-04-19] MEDS: GABAPENTIN 100 MG CAP PO SCH ×3 (09:14→20:51)
[2020-04-19] MEDS ORDERED: fentaNYL (PF) 50 MCG/ML 2 ML AMP ONE (10:40)
[2020-04-19] MEDS ORDERED: LIDOCAINE 1% INJ 10MG/ML (20 ML MDV) ONE (10:40)
[2020-04-19] MEDS ORDERED: MIDAZOLAM 2 MG/2 ML VIAL IVP ONE (10:44)
[2020-04-19] MEDS ORDERED: IV FLUID CONTINUATION 800 ML IV ONE (10:44)
[2020-04-19] MEDS ORDERED: fentaNYL (PF) 50 MCG/ML 2 ML AMP IVP ONE (10:44)
[2020-04-19] MEDS ORDERED: LIDOCAINE 1% INJ 10MG/ML (20 ML MDV) SQ ONE (10:45)
[2020-04-19] MEDS ORDERED: HEPARIN SODIUM 1,000 UN/ML (10ML VL) ONE (10:47)
--- NOTE | 2020-04-19 11:07 | P.PN ---
Subjective Progress Note Date: 04/19/20 HISTORY OF PRESENT ILLNESS 59 years old male patient of Dr. Mckeon with past medical history of end-stage renal disease on hemodialysis Wednesday and Wednesday, coronary artery disease post angioplasty, and stent placement last catheterization was February 09 with stent of the left circumflex and proximal LAD, atrial fibrillation, diabetes, GERD, hyperlipidemia, hypertension. He does have intermittent lesion along the mid LAD and follows Dr. Hinojosa on as outpatient. Patient was last admitted in February 16 with chest pain and unstable angina, comes in this time with change in mental status, and multiple falls at home. Patient is unable to provide any history due to increased drowsiness. History obtained from the chart. It appears patient had a fall in the bathroom as his leg gave out. He denies any dizziness or syncope episode. CT of the head was obtained that showed no acute lesions. Patient missed 2 dialysis appointment, last hemodialysis was 1 week ago. In the ER patient's blood pressure was 202/94 temp of 99 pulse 91 and respiratory rate 19 on assessment of patient's lab patient had a any, hemoglobin 10.7 hematocrit 32.4 sodium 133 chloride 92 bicarb 21 BUN 86 creatinine 7.56 glucose 237. Urinalysis does suggest leukocytosis with positive blood and positive protein. Urine culture was sent. On evaluation today patient is found to be lying in bed. He is unable to provide any history. Patient did Gabapentin, Dilaudid and 1 L of bolus of IV fluids. We will hold pain medication. Decrease gabapentin 100 3 times a day. Patient will be started on levofloxacin renally adjusted to 250 every 48 hours. Ativan reduced to 0.5 mg 3 times a day. Hold off diuretics. Nephrology consulted At 2:30 this afternoon patient became unresponsive as patient was hooked to the dialysis. The A team responded to the patient did mention patient was pulseless. A brief CPR was done for 2 minutes, with return of spontaneous circulation and return of the pulse with no need of epinephrine. Patient's blood pressure was found to be low. Cardiology consult will be placed. Echo will be ordered. Patient was noted to be in atrial fibrillation and was transferred to the ICU on nonrebreather mask. Another attempt was made to start the hemodialysis while patient was arousable and follows all commands he was found to be more lethargic. Patient's blood pressure dropped on hemodialysis and became unresponsive not responding to sternal rub. Was noted to be in A. fib with RVR. Patient was placed on BiPAP intubation was not required. 04/12 patient currently in the ICU. Vitals are stable with temp of 98 pulse 67 and respiratory rate 19 and blood pressure 156/71 oxygen saturation 95% on 40% on BiPAP. Patient has leukocytosis of 18 improved from 20 hemoglobin 9.9, sodium 134 chloride 97 bicarb 19 BUN 104 creatinine 8.15 phosphorus 10.7 and total bilirubin 1.7 AST 2932 ALT 2727 alkaline phosphatase 449. Cardiology evaluated the patient thinks patient's episode of unresponsiveness could be vasovagal from low blood pressure. Continue to monitor patient's blood pressure with possible orthostatics when patient is stable. Metoprolol dose increased to 25 twice a day. Initiated on amiodarone 100 mg daily patient is being dialyzed today with minimal ultrafiltration. We will hold hydralazine and Cozaar for systolic less than 125. Patient currently off pressors. Spoke to patient's at bedside who mentioned patient has been falling for the past few months. He had MRI of the lower back done as outpatient that suggested severe spinal stenosis. Patient was set up for PT as outpatient but has been forgetting to often due to weakness in his legs. He has a outpatient appointment pending with an orthopedic surgery 04/13: Patient still in the ICU , on BiPAP, he still have less responsiveness, quite hypertensive today back on vasopressor. Patient was diagnosed tolerate hemodialysis for long had only 1 hour, still currently in significant encephalopathy status, continue IV antibiotic for now there is a small gang renous spot on the right second toe. 04/14: Patient is off vasopressor, still on BiPAP, still running back and forth between tachycardia and A. fib. No hemodialysis done today. Patient is very confused is taking his lines And all attachment out he required a sitter today. 04/15: Patient is off vasopressor, off BiPAP, he is more awake alert today, he is more hemodynamically stable. He is on hemodialysis and blood pressure is holding well so far should be able to do full cycle of hemodialysis today. Source of infection is still unclear suspect to be dialysis catheter which might be pulled out to place another catheter either in the femoral area or use the fistula graft had in the left forearm. 04/16: Patient evaluated in the ICU. Patient is arousable but easily drifts back to sleep. He had dialysis yesterday, with possible plans for dialysis again today due to elevated BUN/creatinine. Possible source of infection still unclear and suspected to be dialysis catheter. Nephrology plans on repeat blood cultures via dialysis catheter, if positive will discuss discontinuing the IJ pe rmacath. Infectious disease added Cefepime for worsening white count, and continue on Vancomycin. Repeat chest x-ray shows cardiomegaly with left basilar atelectasis. Plans to transfer of the ICU today to select care unit. 04/17: Patient's right IJ permacath dialysis catheter was removed yesterday. Patient's nurse reports that there was pus on the end and this has been cultured. Patient remains in the intensive care unit but has been downgraded to cardiac stepdown unit. Patient has been afebrile, heart rate 57, blood pressure 109/59, pulse ox 100% on 2 L nasal cannula. media monitor has been a sinus rhythm. He does have short bouts of atrial fibrillation most often noted when he drinks cold liquids. Repeat blood work reveals WBC of 32, hemoglobin 9.6, platelet count 285. BUN 47 creatinine 3.63, potassium 4.3. Blood sugars running between 85 and 166. Total bilirubin 1.3, AST 98, ALT 517, alkaline phosphatase 391. Liver function tests are improved from yesterday. Chest x-ray today reveals cardiomegaly. Interstitial density slightly increased. Correlate to exclude developing pulmonary vascular congestion. Left base remains under penetrated area and some underlying atelectasis or infiltrate or effusion possible. 04/18: Patient is seen today on the cardiac stepdown unit. Patient is awake and answering questions but speech is slow and slurred. Reviewed plan of care with him and he verbalizes understanding. Patient is afebrile, heart rate 66, blood pressure 123/55, pulse ox 99% on 2 L nasal cannula. Catheter tip culture is showing presumptive MRSA. Repeat blood cultures have been ordered to see if bacteremia is clearing. Patient is currently on vancomycin pharmacy dosing and cefepime. YAYO performed by Dr. Bowie reveals no evidence of infective endocardit is. No evidence of intracardiac valves vegetation or abscess. Aortic sclerosis, trileaflet mildly thickened with trace aortic insufficiency. Thickened anterior posterior mitral leaflets with moderate mitral regurgitation. Moderate tricuspid regurgitation. Moderate pulmonic insufficiency. Mild biatrial enlargement. Intact anterior atrial septum and intact left atrial appendage without thrombus. Low normal LV with EF of 50%. No pericardial effusion. 04/19: Patient had worsening of his mental status during the night and remains confused worse than yesterday. Leandra is on hold this morning for temporary line placement for dialysis. Dr. Nguyen is planning on hemodialysis today and tomorrow. Patient is only able to state that he feels miserable and terrible but nothing specific. He has been afebrile, heart rate 74, blood pressure 161/75, pulse ox 91% on room air. WBC is 28.4, hemoglobin 8.6, platelet count 285. CO2 19, BUN 75 and creatinine 5.85. Blood sugars running between 205 and 235. Vancomycin level XXI.5. Repeat blood cultures obtained on April 18 are also positive. CAT scan of the abdomen and pelvis with contrast revealed moderate anasarca. Small bilateral pleural effusions with adjacent atelectasis superimposed infiltrates not excluded. Mild urinary bladder wall thickening, correlate for cystitis. No significant contrast excretion into the renal colle ction system on the delayed images. No significant intra-abdominal pelvic abnormality. Tetracycline has recommended continuing vancomycin. REVIEW OF SYSTEMS Unable to obtain due to patient's mental status PHYSICAL EXAMINATION Gen: This is a 59-year-old male patient seen on the cardiac stepdown unit. He is resting in bed and appears to be in no acute respiratory distress. HEENT: Head is atraumatic, normocephalic. Pupils equal, round. Sclerae is anicteric. NECK: Supple. No JVD. No lymphadenopathy. No thyromegaly. LUNGS: Clear to auscultation. No wheezes or rhonchi. No intercostal retractions. HEART: Regular rate and rhythm. 2/6 systolic murmur. ABDOMEN: Soft. Bowel sounds are present. No masses. No tenderness. EXTREMITIES: No pedal edema. No calf tenderness. NEUROLOGICAL: Patient is oriented to person. Patient is more confused today. ASSESSMENT AND PLAN 1. Sepsis and MRSA bacteremia secondary to dialysis catheter. Permacath has been removed as of yesterday and culture of tip done. Patient is followed by Dr. Presley and continued on cefepime and vancomycin. Plan is for temporary catheter placement with hemodialysis for 2 days and then remove this with plan for permanent catheter placement once blood cultures are clear. 2. Metabolic encephalopathy secondary to sepsis, uremia, pain medication and benzodiazepines improving. Lorazepam has been discontinued. 3. End-stage renal disease on hemodialysis. Temporary catheter to be placed for dialysis today and tomorrow. Permanent catheter will be placed once bacteremia is cleared. Consult with nephrology and vascular surgery appre patty. Continue PhosLo 1334 mg 3 times daily. 4. Fall secondary to degenerative disc disease and spinal stenosis. MRI as an outpatient revealed severe spinal stenosis. Patient has outpatient orthopedic evaluation pending. PT and OT following. 5. Acute syncopal episode most likely vasovagal, patient had brief CPR. Cardiology consult appreciated. 6. History of coronary artery disease with previous PTCA to LAD and circumflex. Lexiscan was negative on previous admission. Continue Plavix 75 mg daily, Imdur 30 mg daily, Lopressor 25 mg in the morning and evening. 7. Paroxysmal atrial fibrillation. Continue eliquis 2.5 mg twice daily and metoprolol, amiodarone at 200 mg daily. 8. Ischemic cardiomyopathy. Continue as in #60. 9. Diabetes mellitus type 2, insulin requiring. Continue Levemir 20 units daily, NovoLog scale before meals and at bedtime, 10. Diabetic neuropathy. Continue gabapentin 100 mg 3 times daily. 11. Hypertension. Continue hydralazine 25 mg 3 times daily, losartan 50 mg at bedtime. 12. Anemia of chronic disease. Continue to monitor. 13. GI prophylaxis. Continue Protonix. 14. DVT prophylaxis. Continue eliquis. DISCHARGE PLAN [facility] most likely middle of next week. Impression and plan of care have been directed as dictated by the signing physician. Katelyn Wesley nurse practitioner acting as scribe for signing physician. Objective - Vital Signs Vital signs: Vital Signs Temp 98 F 04/19/20 08:00 Pulse 74 04/19/20 08:00 Resp 18 04/19/20 08:00 BP 161/75 04/19/20 08:00 Pulse Ox 91 L 04/19/20 08:00 Intake & Output 04/18/20 04/19/20 04/19/20 18:59 06:59 18:59 Intake Total 100 300 Balance 100 300 Intake: IV 50 Intake, IV Titration 50 Amount Cefepime 1 gm In Sodium 50 Chloride 0.9% 50 ml @ 12. 5 mls/hr IVPB DAILY@1800 [facility] Rx#:[id number] Oral 300 Other: Voiding Method Incontinent Incontinent - Labs CBC & Chem 7: 04/19/20 06:39 04/19/20 06:39 Labs: Abnormal Lab Results - Last 24 Hours (Table) 04/18/20 04/18/20 04/18/20 Range/Units 08:51 12:01 16:29 WBC (3.8-10.6) k/uL RBC (4.30-5.90) m/uL Hgb (13.0-17.5) gm/dL Hct (39.0-53.0) % MCHC (31.0-37.0) g/dL RDW (11.5-15.5) % Neutrophils # (1.3-7.7) k/uL Lymphocytes # (1.0-4.8) k/uL Chloride 108 H (98-107) mmol/L Carbon Dioxide (22-30) mmol/L BUN 70 H (9-20) mg/dL Creatinine 5.19 H (0.66-1.25) mg/dL Glucose 153 H (74-99) mg/dL POC Glucose (mg/dL) 172 H 193 H (75-99) mg/dL 04/18/20 04/19/20 04/19/20 Range/Units 21:28 06:18 06:39 WBC (3.8-10.6) k/uL RBC (4.30-5.90) m/uL Hgb (13.0-17.5) gm/dL Hct (39.0-53.0) % MCHC (31.0-37.0) g/dL RDW (11.5-15.5) % Neutrophils # (1.3-7.7) k/uL Lymphocytes # (1.0-4.8) k/uL Chloride (98-107) mmol/L Carbon Dioxide 19 L (22-30) mmol/L BUN 75 H (9-20) mg/dL Creatinine 5.85 H (0.66-1.25) mg/dL Glucose 214 H (74-99) mg/dL POC Glucose (mg/dL) 235 H 205 H (75-99) mg/dL 04/19/20 Range/Units 06:39 WBC 28.4 H (3.8-10.6) k/uL RBC 3.20 L (4.30-5.90) m/uL Hgb 8.6 L (13.0-17.5) gm/dL Hct 28.0 L (39.0-53.0) % MCHC 30.6 L (31.0-37.0) g/dL RDW 17.0 H (11.5-15.5) % Neutrophils # 26.4 H (1.3-7.7) k/uL Lymphocytes # 0.6 L (1.0-4.8) k/uL Chloride (98-107) mmol/L Carbon Dioxide (22-30) mmol/L BUN (9-20) mg/dL Creatinine (0.66-1.25) mg/dL Glucose (74-99) mg/dL POC Glucose (mg/dL) (75-99) mg/dL Microbiology - Last 24 Hours (Table) 04/18/20 08:51 Blood Culture Gram Stain - Preliminary Blood 04/18/20 08:51 Blood Culture - Final Blood 04/17/20 08:20 Catheter Tip Culture - Preliminary Catheter Tip Presumptive MRSA
[2020-04-19 11:59] LABS: Glucose,Whole Blood 187 mg/dL (75-99)
[2020-04-19] MEDS: CLOPIDOGREL 75 MG TAB PO SCH (12:30)
[2020-04-19] MEDS: INSULIN DETEMIR (LEVEMIR) 100 UNIT/ML SYR SQ SCH (12:38)
--- NOTE | 2020-04-19 13:38 | P.PN ---
Subjective Progress Note Date: 04/19/20 Principal diagnosis: Renal fire, staph aureus sepsis. On 04/16/2020 patient seen in follow-up in intensive care unit, he is slightly more arousable on today's exam, he is given some simple answers, he is oriented to person and place, disoriented to time. Drifts back to sleep if left unstimulated. Appears to be in no acute distress although he does admit to being short of breath at times. Seems to be breathing comfortably currently, he is on 2 L of oxygen with pulse ox of 99%, he had hemodialysis yesterday would removal of 1 L of fluid. His been afebrile. His follow-up blood cultures from 04/15/2020 continue to show gram-positive cocci in groups. Patient continues on vancomycin and cefepime for antibiotic coverage, ID service is following, patient has been having intermittent runs of A. fib with RVR, and spontaneously converts back to sinus. He is in sinus mechanism right now. Cardiology is following, patient is off the Cardizem infusion, he is on oral amiodarone, and he is on Eliquis for anticoagulation. On 04/17/2000 patient seen in follow-up in the intensive care unit, he is currently on 3 L of oxygen, did not require BiPAP support, pulse ox is 100% on 3 L, he is breathing comfortably, he is lethargic, but arousable, he wakes up and answers simple questions, denies any chest discomfort, is currently in sinus mechanism on the monitor, his had intermittent self-limiting bouts of atrial fibrillation, he is on oral amiodarone and Eliquis for anticoagulation. Remains on cefepime and vancomycin, and his follow-up blood cultures from 04/15/2020 are again positive for presumptive MRSA. ID service is following, the source of bacteremia is likely related to hemodialysis catheter in the right subclavian area, fasting surgery has been consulted for removal of the hemodialysis catheter today and insertion of a new hemodialysis catheter in the next 48 hours. Patient has been afebrile, patient had hemodialysis yesterday would removal of 700 mL of fluid. After hemodialysis he did have some lower blood pressures with systolic in the 80s, and in view of relative hypotension his transfer out of ICU was held. On 2020 patient seen in follow-up on [facility] care unit, his last hemodialysis session was yesterday would removal of 700 mL of fluid. No signs of any acute respiratory distress, patient is on 2 L of oxygen pulse ox is 97%, his been afebrile, vital signs have been stable. His right subclavian permacath has been discontinued, today's labs have been reviewed, no CBC, BMP showed creatinine 5.19, BUN is 70, potassium is 4.1. His liver enzymes were improving on yesterday's labs. He has been afebrile. His last follow-up blood culture from 04/17/2020 showed presumptive MRSA. he continues on cefepime and vancomycin, ID service is following. Progress note dated 04/19/2020. [id number] male with history of staph aureus sepsis. His hemodialysis catheter was removed. There is plans for a another catheter to be placed. He may also have a permanent hemodialysis catheter placed in the near future. He continues on vancomycin. Infectious diseases are following. The patient is a bit more alert today. He is not on any supplemental oxygen. Saturations are in the low 90s. He is always sleeping when we see him. White count is 28.4, hemoglobin 8.6, hematocrit 28.0, and platelet count 285,000. Sodium is 138, potassium 4.4, chlorides 103, CO2 19, anion gap 16, BUN 75, and creatinine 5.85. Blood cultures were positive from the catheter tip on 04/17/2020. The patient has a history of prior cardiac arrest, end-stage renal disease, recurrent falls, CAD, type 2 diabetes, anemia of chronic disease, obesity, sleep apnea syndrome, right second toe cellulitis, abnormal liver enzymes, and mental status changes, which are improving somewhat. Objective - Vital Signs Vital signs: Vital Signs Temp 98 F 04/19/20 08:00 Pulse 74 04/19/20 08:00 Resp 18 04/19/20 12:00 BP 138/73 04/19/20 12:00 Pulse Ox 93 L 04/19/20 12:00 Intake & Output 04/18/20 04/19/20 04/19/20 18:59 06:59 18:59 Intake Total 100 300 10 Balance 100 300 10 Intake: IV 50 10 Intake, IV Titration 50 Amount Cefepime 1 gm In Sodium 50 Chloride 0.9% 50 ml @ 12. 5 mls/hr IVPB DAILY@1800 [facility] Rx#:[id number] Oral 300 Other: Voiding Method Incontinent Incontinent Incontinent - Exam GENERAL EXAM: Sleepy, but arousable to voice, currently not on any supplemental oxygen. HEAD: Normocephalic/atraumatic. EYES: Normal reaction of pupils, equal size. Conjunctiva pink, sclera white. NOSE: Clear with pink turbinates. THROAT: No erythema or exudates. NECK: No masses, no JVD, no thyroid enlargement, no adenopathy. CHEST: No chest wall deformity. Symmetrical expansion. Right subclavian has been removed. LUNGS: Equal air entry some rhonchi, but without crackles or wheezes. Breath sounds equal bilaterally. CVS: Regular rate and rhythm, normal S1 and S2, no gallops, soft systolic murmur, loudest at the left midclavicular line fourth to fifth intercostal space, no rubs. Heart rate 74 bpm. ABDOMEN: Soft, nontender. No hepatosplenomegaly, normal bowel sounds, no guarding or rigidity. EXTREMITIES: No clubbing, no edema, no cyanosis, 2+ pulses and upper and lower extremities. Left upper arm AV shunt in place, with positive bruit and thrill MUSCULOSKELETAL: Muscle strength and tone normal. SPINE: No scoliosis or deformity SKIN: No rashes. CENTRAL NERVOUS SYSTEM: Patient is lethargic/sleepy, but does arouse. He is appropriate when he is awake. - Labs CBC & Chem 7: 04/19/20 06:39 04/19/20 06:39 Labs: Abnormal Lab Results - Last 24 Hours (Table) 04/18/20 04/18/20 04/19/20 Range/Units 16:29 21:28 06:18 WBC (3.8-10.6) k/uL RBC (4.30-5.90) m/uL Hgb (13.0-17.5) gm/dL Hct (39.0-53.0) % MCHC (31.0-37.0) g/dL RDW (11.5-15.5) % Neutrophils # (1.3-7.7) k/uL Lymphocytes # (1.0-4.8) k/uL Carbon Dioxide (22-30) mmol/L BUN (9-20) mg/dL Creatinine (0.66-1.25) mg/dL Glucose (74-99) mg/dL POC Glucose (mg/dL) 193 H 235 H 205 H (75-99) mg/dL 04/19/20 04/19/20 04/19/20 Range/Units 06:39 06:39 11:57 WBC 28.4 H (3.8-10.6) k/uL RBC 3.20 L (4.30-5.90) m/uL Hgb 8.6 L (13.0-17.5) gm/dL Hct 28.0 L (39.0-53.0) % MCHC 30.6 L (31.0-37.0) g/dL RDW 17.0 H (11.5-15.5) % Neutrophils # 26.4 H (1.3-7.7) k/uL Lymphocytes # 0.6 L (1.0-4.8) k/uL Carbon Dioxide 19 L (22-30) mmol/L BUN 75 H (9-20) mg/dL Creatinine 5.85 H (0.66-1.25) mg/dL Glucose 214 H (74-99) mg/dL POC Glucose (mg/dL) 187 H (75-99) mg/dL Microbiology - Last 24 Hours (Table) 04/17/20 08:20 Catheter Tip Culture - Final Catheter Tip Methicillin resist S. aureus 04/18/20 08:51 Blood Culture Gram Stain - Preliminary Blood 04/18/20 08:51 Blood Culture - Final Blood Assessment and Plan Assessment: Acute hypoxemic respiratory failure, secondary to methicillin-resistant staph aureus sepsis, as well as acute diastolic CHF. Methicillin-resistant staph aureus bacteremia, and sepsis, likely secondary to his subclavian dialysis catheter, has been removed. Status post cardiac arrest, with asystole and/or pulseless electrical activity, brief, with 2 minutes of cardiopulmonary resuscitation. Chronic end-stage renal disease, currently on hemodialysis, noncompliant. Recurrent falls. History of coronary artery disease. Diabetes mellitus, type II, with diabetic neuropathy and nephropathy. Anemia of chronic disease. Obstructive sleep apnea syndrome. Morbid obesity. Right second toe cellulitis. Congestive hepatopathy, improved. Leukocytosis, secondary to staph sepsis. Encephalopathy, likely secondary to sepsis. Plan: Plan dated 04/19/2020. The patient remains on vancomycin for his methicillin-resistant staph aureus sepsis. The right subclavian catheter has been removed. The transesophageal echocardiogram showed no evidence of intracardiac valve vegetation or infective endocarditis. Currently, the patient is not on any supplemental oxygen. A permanent hemodialysis catheter is being contemplated. We will continue to see the patient. Additional recommendations and suggestions are forthcoming. The patient's overall condition remains tenuous, and the patient could end up back in the intensive care unit should he decline. Time with Patient: Less than 30
--- NOTE | 2020-04-19 13:54 | IR ---
EXAMINATION TYPE: IR cvc insert non tunneled DATE OF EXAM: 04/19/2020 COMPARISON: NONE HISTORY: Dialysis catheter placement Fluoroscopy support supplied to the referring clinician. See dictated report from vascular surgery, 0.1 minutes fluoroscopy time, 84 intraoperative images document the procedure
--- NOTE | 2020-04-19 14:58 | P.PN ---
Subjective This is a pleasant 59-year-old male past medical history significant for end-stage renal disease on hemodialysis, coronary artery disease status post PCI of the circumflex and proximal LAD, paroxysmal atrial fibrillation on long- term anticoagulation, diabetes mellitus, hypertension and dyslipidemia. He follows in the office with Dr. Bowie. He is seen and examined resting comfortably sitting up in bed in no acute distress. He just back from getting a temporary dialysis catheter placed in the right groin. Blood pressure 138/73 heart rate 74 afebrile maintaining oxygen saturation on room air. Laboratory data reviewed, WBC 28.4, hgb 8.6, plt 285, sodium 138, potassium 4.4, creatinine 5.85. Currently his eliquis is on hold for possible permanent catheter placement Wednesday. He is complaining of some pain in the right anterior and posterior chest with deep inspiration. He denies shortness of breath, dizziness or palpitations. GENERAL: Well-appearing, well-nourished and in no acute distress. NECK: Supple without JVD or thyromegaly. LUNGS: Breath sounds clear to auscultation bilaterally. Respiration equal and unlabored. No wheezes, rales or rhonchi. Diminished bilaterally. HEART: Regular rate and rhythm with systolic ejection murmur at the base, no rubs or gallops. S1 and S2 heard. EXTREMITIES: Normal range of motion, no edema. No clubbing or cyanosis. Peripheral pulses intact. ASSESSMENT Sepsis and MRSA bacteremia secondary to dialysis catheter Encephalopathy End stage renal disease on HD Syncope Coronary artery disease s/p PCI Paroxysmal atrial fibrillation, currently maintaining sinus mechanism Diabetes mellitus Hypertension PLAN Continue to hold Eliquis pending possible permanent catheter placement on . Nurse Practitioner note has been reviewed, I agree with a documented findings and plan of care. Patient was seen and examined. Objective - Vital Signs Vital signs: Vital Signs Temp 98 F 04/19/20 08:00 Pulse 74 04/19/20 08:00 Resp 18 04/19/20 12:00 BP 138/73 04/19/20 12:00 Pulse Ox 93 L 04/19/20 12:00 Intake & Output 04/18/20 04/19/20 04/19/20 18:59 06:59 18:59 Intake Total 100 300 10 Balance 100 300 10 Intake: IV 50 10 Intake, IV Titration 50 Amount Cefepime 1 gm In Sodium 50 Chloride 0.9% 50 ml @ 12. 5 mls/hr IVPB DAILY@1800 COUNT INCLUDES THE [facility] Rx#:[id number] Oral 300 Other: Voiding Method Incontinent Incontinent Incontinent - Labs CBC & Chem 7: 04/19/20 06:39 04/19/20 06:39 Labs: Abnormal Lab Results - Last 24 Hours (Table) 04/18/20 04/18/20 04/19/20 Range/Units 16:29 21:28 06:18 WBC (3.8-10.6) k/uL RBC (4.30-5.90) m/uL Hgb (13.0-17.5) gm/dL Hct (39.0-53.0) % MCHC (31.0-37.0) g/dL RDW (11.5-15.5) % Neutrophils # (1.3-7.7) k/uL Lymphocytes # (1.0-4.8) k/uL Carbon Dioxide (22-30) mmol/L BUN (9-20) mg/dL Creatinine (0.66-1.25) mg/dL Glucose (74-99) mg/dL POC Glucose (mg/dL) 193 H 235 H 205 H (75-99) mg/dL 04/19/20 04/19/20 04/19/20 Range/Units 06:39 06:39 11:57 WBC 28.4 H (3.8-10.6) k/uL RBC 3.20 L (4.30-5.90) m/uL Hgb 8.6 L (13.0-17.5) gm/dL Hct 28.0 L (39.0-53.0) % MCHC 30.6 L (31.0-37.0) g/dL RDW 17.0 H (11.5-15.5) % Neutrophils # 26.4 H (1.3-7.7) k/uL Lymphocytes # 0.6 L (1.0-4.8) k/uL Carbon Dioxide 19 L (22-30) mmol/L BUN 75 H (9-20) mg/dL Creatinine 5.85 H (0.66-1.25) mg/dL Glucose 214 H (74-99) mg/dL POC Glucose (mg/dL) 187 H (75-99) mg/dL Microbiology - Last 24 Hours (Table) 04/17/20 08:20 Catheter Tip Culture - Final Catheter Tip Methicillin resist S. aureus 04/18/20 08:51 Blood Culture Gram Stain - Preliminary Blood 04/18/20 08:51 Blood Culture - Final Blood
[2020-04-19 16:57] LABS: Glucose,Whole Blood 190 mg/dL (75-99)
--- NOTE | 2020-04-19 17:24 | PN ---
PROGRESS NOTE DATE OF SERVICE: 04/19/2020 REASON FOR FOLLOWUP: MRSA bacteremia secondary to PermCath infection. INTERVAL HISTORY: The patient is currently afebrile. The patient is breathing comfortably. Denies having any chest pain or cough. No abdominal pain. No diarrhea has been reported. PHYSICAL EXAMINATION: Blood pressure is 138/73 with a pulse of 74, temperature 98. He is 93% on room air. General description is a middle-aged male lying in bed in no distress. RESPIRATORY SYSTEM: Unlabored breathing. Clear to auscultation anteriorly. HEART: S1, S2. Regular rate and rhythm. ABDOMEN: Soft. No tenderness. LABS: Hemoglobin 8.6, white count 28.4. BUN 75, creatinine 5.85. DIAGNOSTIC IMPRESSION AND PLAN: Patient with methicillin-resistant Staphylococcus aeruginosa bacteremia secondary to PermCath infection. That has been discontinued. Patient's blood culture is still positive and should be checked daily to document clearance of his bacteremia. White count is showing a downward trend. CT of abdomen and pelvis did not show any intraabdominal pathology on his lumbar spine. Continue with supportive care. MMODL / IJN: [id number] /
--- NOTE | 2020-04-19 18:08 | PN ---
PROGRESS NOTE Patient is seen for followup for end-stage renal disease. He has MRSA bacteremia and the source was the PermCath. The patient's catheter has been removed. However, he continues to have positive blood cultures. Last dialysis was on 04/16/2020. The patient became a little bit more confused last evening. He also had a CT with IV contrast done yesterday to look for any other source of infection, and that did not reveal any significant pertinent abnormalities. PHYSICAL EXAMINATION: On examination today, blood pressure was 161/75, heart rate 74 per minute. He is afebrile. The patient is confused. He is not in any acute distress. EXAMINATION OF THE HEART: S1 and S2. EXAMINATION OF LUNGS: Bilateral breath sounds are heard. ABDOMEN: Soft, non-tender. Examination of lower extremities shows trace edema, chronic skin changes. ADMISSION LIAISON exam shows patient is confused. He is moving all 4 extremities. LABS: Hemoglobin 8.6, sodium 138, potassium 4.4, chloride 103. CO2 is 19, BUN 75, serum creatinine 5.85. ASSESSMENT: 1. End-stage renal disease, on hemodialysis, status post removal of dialysis catheter on 04/16/2020. Repeat blood cultures still positive. No other source identified. Patient had a CT scan done yesterday which did not reveal any positive findings. 2. Mental status changes which seem to get worse when patient is not adequately dialyzed. We have seen this trend with Mr. Gillette, especially worse now when he is septic with ongoing bacteremia. 3. Malfunctioning AV fistula with a lot of bruising and infiltration, which seems to have improved now. 4. Anemia, multifactorial. 5. Atrial fibrillation with rapid ventricular response, currently with controlled ventricular response. PLAN: 1. Continue daily blood cultures. Will place a temporary dialysis catheter and dialyze the patient today and tomorrow and possibly on Wednesday as well, and then remove the femoral catheter. However, if we are able to use his AV fistula, then we can remove the catheter earlier. Dr. Santizo is on the case and he will check his office records prior to us using the AV fistula again. 2. Anemia. MMODL / IJN: [id number] /
[2020-04-19 20:04] LABS: Glucose,Whole Blood 162 mg/dL (75-99)
[2020-04-19] MEDS: LOSARTAN 50 MG TAB PO SCH (20:51)
--- NOTE | 2020-04-19 22:04 | P.PN ---
Subjective Progress Note Date: 04/18/20 04/18/2020: Patient appears very delirious/encephalopathic, mumbling, does not follow commands much. Fluctuating mental status. Telemetry monitoring showing atrial fibrillation in and out. He does not complain of headache today. 04/17/2020: Patient continues to be significantly encephalopathic, drowsy, lethargic. Patient denies headache today. However appears inconsistent response. 04/16/2020: Patient seen for follow-up. Patient initially seen by Dr. Marco Nixon. Please refer to his note for detail. Patient has history of atrial fibrillation, CAD, CHF, diabetes, peripheral neuropathy, hyperlipidemia end-stage renal disease on hemodialysis, came to the hospital because of altered mental status, frequent falls. His legs would give out. Patient has missed his hemodialysis. Patient did have a cardiac arrest on 04/11/2020 lasted for less than 2 minutes. Patient had an episode of respir atory arrest the same day. Patient's altered mental status was felt to be related to toxic metabolic encephalopathy. CT head showed no acute intracranial process. CT of the cervical spine also negative. Patient has poorly controlled diabetes with A1c 10.1. Patient's B12 is > 4000, RBC folate is also elevated 1528. TSH is normal. Patient at this time continues to be encephalopathic. When asked, if he has headache, states he does and rates it severe. He is lethargic, somnolent, does open his eyes to calling his name, but then again goes back to sleepiness. Patient also admits to having back pain with back spasms. Patient's WBC 33.1, ammonia been 10.4, platelets 325. Sodium is 139 potassium 3.4, BUN 58, creatinine 4.73. Liver enzymes are significantly elevated with AST 89, ALT 814, with GGT 109. Creatinine kinase is normal. Objective - Vital Signs Vital signs: Vital Signs Temp 98.2 F 04/18/20 12:00 Pulse 62 04/18/20 16:00 Resp 17 04/18/20 16:00 BP 119/56 04/18/20 16:00 Pulse Ox 97 04/18/20 16:00 Intake & Output 04/17/20 04/18/20 04/18/20 18:59 06:59 18:59 Intake Total 580 100 100 Output Total 0 0 Balance 580 100 100 Weight 90 kg Intake: IV 30 100 50 KVO 30 100 Intake, IV Titration 50 Amount Cefepime 1 gm In Sodium 50 Chloride 0.9% 50 ml @ 12. 5 mls/hr IVPB DAILY@1800 [facility] Rx#:[id number] Oral 550 0 Output: Urine 0 0 Other: Voiding Method Incontinent Incontinent # Voids 1 # Bowel Movements 0 - Exam On examination patient is a late middle aged male, who is obviously encephalopathic. He continues to be somnolent, does open his eyes, often mumbles. Patient is having fluctuating mental status on daily basis. Sometimes more alert and awake, other times more delirious/lethargic and drowsy. Patient mumbling today. His pupils are round and reacting. Visual justice could not be tested. Face is symmetric. Patient's strength is normal in the upper limbs distally and proximally, except left triceps, is 4+. Patient did not cooperate with muscle strength testing of the lower extremities. Patient is areflexic and plantars are downgoing. Sensory touch is equal. On lifting the leg, patient complains of some pain in the back. He could not localize where the pain is - Labs CBC & Chem 7: 04/19/20 06:39 04/19/20 06:39 Labs: Abnormal Lab Results - Last 24 Hours (Table) 04/17/20 04/18/20 04/18/20 Range/Units 20:53 06:07 08:51 Chloride 108 H (98-107) mmol/L BUN 70 H (9-20) mg/dL Creatinine 5.19 H (0.66-1.25) mg/dL Glucose 153 H (74-99) mg/dL POC Glucose (mg/dL) 156 H 151 H (75-99) mg/dL 04/18/20 04/18/20 Range/Units 12:01 16:29 Chloride (98-107) mmol/L BUN (9-20) mg/dL Creatinine (0.66-1.25) mg/dL Glucose (74-99) mg/dL POC Glucose (mg/dL) 172 H 193 H (75-99) mg/dL Microbiology - Last 24 Hours (Table) 04/17/20 08:20 Catheter Tip Culture - Preliminary Catheter Tip Presumptive MRSA Assessment and Plan Assessment: * Altered mental status, due to toxic metabolic encephalopathy. * End-stage renal disease on hemodialysis, missed hemodialysis prior to arrival. * History of septicemia with MRSA. Status post removal of dialysis catheter on 04/16/2020. Catheter tip cultures grew MRSA. * Bilateral lower extremity weakness, possible diabetic neuropathy/plexopathy versus critical illness related neuropathy. * Elevated LFTs. Elevated ESR 95 * Poorly controlled diabetes, with A1c 10.1 Plan: * Patient continues to be encephalopathic, very delirious. Continues to have bacteremia. Perma Catheter tip Cultures positive for MRSA. * Patient did not cooperate with detailed neurological testing. * YAYO to 04/18/2020 showed no evidence of infective endocarditis. No evidence of intracardiac valves vegetation or abscess. Aortic sclerosis. Thickened anter ior and posterior mitral leaflets with moderate mitral regurgitation. Intact left atrial appendage without any thrombus. EF is 50%. * Patient currently on vancomycin.
--- NOTE | 2020-04-19 22:16 | P.PN ---
Subjective Progress Note Date: 04/19/20 04/19/2020: Patient much more alert and awake today. Patient has prominent myoclonus of his upper limbs. Patient does admit to having headaches. 04/18/2020: Patient appears very delirious/encephalopathic, mumbling, does not follow commands much. Fluctuating mental status. Telemetry monitoring showing atrial fibrillation in and out. He does not complain of headache today. 04/17/2020: Patient continues to be significantly encephalopathic, drowsy, lethargic. Patient denies headache today. However appears inconsistent response. 04/16/2020: Patient seen for follow-up. Patient initially seen by Dr. Marco Nixon. Please refer to his note for detail. Patient has history of atrial fibrillation, CAD, CHF, diabetes, peripheral neuropathy, hyperlipidemia end-stage renal disease on hemodialysis, came to the hospital because of altered mental status, frequent falls. His legs would give out. Patient has missed his hemodialysis. Patient did have a cardiac arrest on 04/11/2020 lasted for less than 2 minutes. Patient had an episode of respiratory arrest the same day. Patient's altered mental status was felt to be related to toxic metabolic encephalopathy. CT head showed no acute intracranial process. CT of the cervical spine also negative. Patient has poorly controlled diabetes with A1c 10.1. Patient's B12 is > 4000, RBC folate is also elevated 1528. TSH is normal. Patient at this time continues to be encephalopathic. When asked, if he has headache, states he does and rates it severe. He is lethargic, somnolent, does open his eyes to calling his name, but then again goes back to sleepiness. Patient also admits to having back pain with back spasms. Patient's WBC 33.1, ammonia been 10.4, platelets 325. Sodium is 139 potassium 3.4, BUN 58, creatinine 4.73. Liver enzymes are significantly elevated with AST 89, ALT 814, with GGT 109. Creatinine kinase is normal. Objective - Vital Signs Vital signs: Vital Signs Temp 97.6 F 04/19/20 20:00 Pulse 69 04/19/20 20:00 Resp 19 04/19/20 20:00 BP 156/71 04/19/20 20:00 Pulse Ox 93 L 04/19/20 20:00 Intake & Output 04/19/20 04/19/20 04/20/20 06:59 18:59 06:59 Intake Total 300 210 120 Output Total 0 Balance 300 210 120 Weight 90 kg Intake: IV 210 KVO 200 Oral 300 120 Output: Hemodialysis 0 Other: Voiding Method Incontinent Incontinent - Exam On examination patient is delirious, but much more awake today. Patient states he is 59 years of age, states he is in [facility] in [place]. He states that he lives in [facility] and later stated that he is in [facility]. Patient's pupils are round and reacting, visual justice could not be tested because of his mentation. Face is symmetric and tongue protrudes the mi dline. On muscle strength testing (right/left) biceps 5/5, iuss analyst 5/5, triceps 5/4, hip flexion 4/3, ankle dorsiflexion 4 to 4-/3- to 3+. Patient complains of significant back pain on moving his legs. Patient has significant myoclonic jerks of outstretched hands. Telemetry monitoring showing sinus rhythm with intermittent atrial fibrillation. - Labs CBC & Chem 7: 04/19/20 06:39 04/19/20 06:39 Labs: Abnormal Lab Results - Last 24 Hours (Table) 04/19/20 04/19/20 04/19/20 Range/Units 06:18 06:39 06:39 WBC 28.4 H (3.8-10.6) k/uL RBC 3.20 L (4.30-5.90) m/uL Hgb 8.6 L (13.0-17.5) gm/dL Hct 28.0 L (39.0-53.0) % MCHC 30.6 L (31.0-37.0) g/dL RDW 17.0 H (11.5-15.5) % Neutrophils # 26.4 H (1.3-7.7) k/uL Lymphocytes # 0.6 L (1.0-4.8) k/uL Carbon Dioxide 19 L (22-30) mmol/L BUN 75 H (9-20) mg/dL Creatinine 5.85 H (0.66-1.25) mg/dL Glucose 214 H (74-99) mg/dL POC Glucose (mg/dL) 205 H (75-99) mg/dL 0204/19/20 04/19/20 Range/Units 11:57 16:55 20:03 WBC (3.8-10.6) k/uL RBC (4.30-5.90) m/uL Hgb (13.0-17.5) gm/dL Hct (39.0-53.0) % MCHC (31.0-37.0) g/dL RDW (11.5-15.5) % Neutrophils # (1.3-7.7) k/uL Lymphocytes # (1.0-4.8) k/uL Carbon Dioxide (22-30) mmol/L BUN (9-20) mg/dL Creatinine (0.66-1.25) mg/dL Glucose (74-99) mg/dL POC Glucose (mg/dL) 187 H 190 H 162 H (75-99) mg/dL Microbiology - Last 24 Hours (Table) 04/17/20 08:20 Catheter Tip Culture - Final Catheter Tip Methicillin resist S. aureus 04/18/20 08:51 Blood Culture Gram Stain - Preliminary Blood 04/18/20 08:51 Blood Culture - Final Blood Assessment and Plan Assessment: * Altered mental status, due to toxic metabolic encephalopathy. * End-stage renal disease on hemodialysis, missed hemodialysis prior to arrival. Patient to undergo dialysis catheter placement today. * History of septicemia with MRSA. Status post removal of dialysis catheter on 04/16/2020. Catheter tip cultures grew MRSA. 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 * Elevated LFTs. Elevated ESR 95 * Poorly controlled diabetes, with A1c 10.1 Plan: * Patient continues to be encephalopathic, very delirious. Continues to have bacteremia. Perma Catheter tip Cultures positive for MRSA. Patient underwent dialysis catheter placement. * Patient continues to have lower back and thoracic pain. This could be positional from laying too long. Patient has asymmetric bilateral lower extremity weakness, left more than right. We will check MRI of the lumbar and thoracic spines without contrast. * YAYO to 04/18/2020 showed no evidence of infective endocarditis. No evidence of intracardiac valves vegetation or abscess. Aortic sclerosis. Thickened anterior and posterior mitral leaflets with moderate mitral regurgitation. Intact left atrial appendage without any thrombus. EF is 50%. * Patient currently on vancomycin.
[2020-04-20] MEDS: HYDROcodone/APAP 10-325MG 1 EACH TAB PO PRN ×2 (03:20→12:03)
[2020-04-20 06:07] LABS: Glucose,Whole Blood 92 mg/dL (75-99)
[2020-04-20] MEDS: INSULIN ASPART (NovoLOG) 100 UNIT/ML VIAL SQ SCH ×4 (06:30→20:54)
[2020-04-20] MEDS: METOPROLOL TARTRATE 25 MG TAB PO SCH ×2 (09:00→20:54)
[2020-04-20] MEDS: ISOSORBIDE MONONITRATE ER 30 MG TAB.ER.24H PO SCH (09:00)
[2020-04-20] MEDS: AMIODARONE 200 MG TAB PO SCH (09:00)
[2020-04-20] MEDS: hydrALAZINE HCL 25 MG TAB PO SCH ×3 (09:00→20:54)
--- NOTE | 2020-04-20 09:27 | P.PN ---
Subjective Patient is seen in follow-up for end-stage renal disease. He is maintained on hemodialysis on Wednesday schedule. He is being treated for MRSA bacteremia. Permacath was removed on April 17. Groin catheter was placed April 19 however it didn't work well yesterday. He is scheduled to get a catheter replaced today. Patient is somewhat confused. Feels hungry. Vital signs are stable. General: The patient appeared well nourished and normally developed. HEENT: Head exam is unremarkable. Neck is without jugular venous distension. LUNGS: Breath sounds decreased. HEART: Rate and Rhythm are regular. ABDOMEN: Soft, nontender. EXTREMITITES: No edema. Objective - Vital Signs Vital signs: Vital Signs Temp 97.9 F 04/20/20 04:00 Pulse 65 04/20/20 04:00 Resp 18 04/20/20 04:00 BP 134/72 04/20/20 04:00 Pulse Ox 97 04/20/20 04:00 Intake & Output 04/19/20 04/20/20 04/20/20 18:59 06:59 18:59 Intake Total 210 420 Output Total 0 Balance 210 420 Weight 90 kg Intake: IV 210 KVO 200 Oral 420 Output: Hemodialysis 0 Other: Voiding Method Incontinent Incontinent # Voids 1 - Labs CBC & Chem 7: 04/19/20 06:39 04/19/20 06:39 Labs: Abnormal Lab Results - Last 24 Hours (Table) 04/19/20 04/19/20 04/19/20 Range/Units 11:57 16:55 20:03 POC Glucose (mg/dL) 187 H 190 H 162 H (75-99) mg/dL Microbiology - Last 24 Hours (Table) 04/19/20 06:39 Blood Culture Gram Stain - Preliminary Blood 04/19/20 06:39 Blood Culture - Final Blood 04/18/20 08:51 Blood Culture Gram Stain - Preliminary Blood Blood Culture - Preliminary Presumptive MRSA 04/17/20 08:20 Catheter Tip Culture - Final Catheter Tip Methicillin resist S. aureus 04/18/20 08:51 Blood Culture - Final Blood Assessment and Plan Plan: Assessment: 1. End-stage renal disease maintained on hemodialysis on Wednesday schedule. 2. MRSA bacteremia secondary to permacath infection status post removal on . 3. Malfunctioning femoral catheter scheduled for replacement today. 4. Chronic kidney disease mineral bone disease maintained on PhosLo. 5. Hypertension with chronic kidney disease. Controlled. 6. Diabetes mellitus. 7. A. fib maintained on amiodarone and Lopressor. Plan: Hemodialysis today and again tomorrow. Plan to remove groin catheter tomorrow after dialysis. Patient will need a permacath once cleared by ID. Monitor vancomycin levels. Target level near 15.
[2020-04-20 10:13] LABS: Glucose,Whole Blood 112 mg/dL (75-99)
[2020-04-20] MEDS ORDERED: HYDROmorphone 1 MG/ML 1 ML SYRINGE IVP STA (10:29)
[2020-04-20] MEDS ORDERED: DIAZEPAM 5 MG/ML 2 ML INJ IVP PRN (10:30)
--- NOTE | 2020-04-20 10:41 | P.PN ---
Subjective Progress Note Date: 04/20/20 HISTORY OF PRESENT ILLNESS 59 years old male patient of Dr. Mckeon with past medical history of end-stage renal disease on hemodialysis Wednesday and Wednesday, coronary artery disease post angioplasty, and stent placement last catheterization was February 09 with stent of the left circumflex and proximal LAD, atrial fibrillation, diabetes, GERD, hyperlipidemia, hypertension. He does have intermittent lesion along the mid LAD and follows Dr. Hinojosa on as outpatient. Patient was last admitted in February 16 with chest pain and unstable angina, comes in this time with change in mental status, and multiple falls at home. Patient is unable to provide any history due to increased drowsiness. History obtained from the chart. It appears patient had a fall in the bathroom as his leg gave out. He denies any dizziness or syncope episode. CT of the head was obtained that showed no acute lesions. Patient missed 2 dialysis appointment, last hemodialysis was 1 week ago. In the ER patient's blood pressure was 202/94 temp of 99 pulse 91 and respiratory rate 19 on assessment of patient's lab patient had a any, hemoglobin 10.7 hematocrit 32.4 sodium 133 chloride 92 bicarb 21 BUN 86 creatinine 7.56 glucose 237. Urinalysis does suggest leukocytosis with positive blood and positive protein. Urine culture was sent. On evaluation today patient is found to be lying in bed. He is unable to provide any history. Patient did Gabapentin, Dilaudid and 1 L of bolus of IV fluids. We will hold pain medication. Decrease gabapentin 100 3 times a day. Patient will be started on levofloxacin renally adjusted to 250 every 48 hours. Ativan reduced to 0.5 mg 3 times a day. Hold off diuretics. Nephrology consulted At 2:30 this afternoon patient became unresponsive as patient was hooked to the dialysis. The A team responded to the patient did mention patient was pulseless. A brief CPR was done for 2 minutes, with return of spontaneous circulation and return of the pulse with no need of epinephrine. Patient's blood pressure was found to be low. Cardiology consult will be placed. Echo will be ordered. Patient was noted to be in atrial fibrillation and was transferred to the ICU on nonrebreather mask. Another attempt was made to start the hemodialysis while patient was arousable and follows all commands he was found to be more lethargic. Patient's blood pressure dropped on hemodialysis and became unresponsive not responding to sternal rub. Was noted to be in A. fib with RVR. Patient was placed on BiPAP intubation was not required. 04/12 patient currently in the ICU. Vitals are stable with temp of 98 pulse 67 and respiratory rate 19 and blood pressure 156/71 oxygen saturation 95% on 40% on BiPAP. Patient has leukocytosis of 18 improved from 20 hemoglobin 9.9, sodium 134 chloride 97 bicarb 19 BUN 104 creatinine 8.15 phosphorus 10.7 and total bilirubin 1.7 AST 2932 ALT 2727 alkaline phosphatase 449. Cardiology evaluated the patient thinks patient's episode of unresponsiveness could be vasovagal from low blood pressure. Continue to monitor patient's blood pressure with possible orthostatics when patient is stable. Metoprolol dose increased to 25 twice a day. Initiated on amiodarone 100 mg daily patient is being dialyzed today with minimal ultrafiltration. We will hold hydralazine and Cozaar for systolic less than 125. Patient currently off pressors. Spoke to patient's at bedside who mentioned patient has been falling for the past few months. He had MRI of the lower back done as outpatient that suggested severe spinal stenosis. Patient was set up for PT as outpatient but has been forgetting to often due to weakness in his legs. He has a outpatient appointment pending with an orthopedic surgery 04/13: Patient still in the ICU , on BiPAP, he still have less responsiveness, quite hypertensive today back on vasopressor. Patient was diagnosed tolerate hemodialysis for long had only 1 hour, still currently in significant encephalopathy status, continue IV antibiotic for now there is a small gang renous spot on the right second toe. 04/14: Patient is off vasopressor, still on BiPAP, still running back and forth between tachycardia and A. fib. No hemodialysis done today. Patient is very confused is taking his lines And all attachment out he required a sitter today. 04/15: Patient is off vasopressor, off BiPAP, he is more awake alert today, he is more hemodynamically stable. He is on hemodialysis and blood pressure is holding well so far should be able to do full cycle of hemodialysis today. Source of infection is still unclear suspect to be dialysis catheter which might be pulled out to place another catheter either in the femoral area or use the fistula graft had in the left forearm. 04/16: Patient evaluated in the ICU. Patient is arousable but easily drifts back to sleep. He had dialysis yesterday, with possible plans for dialysis again today due to elevated BUN/creatinine. Possible source of infection still unclear and suspected to be dialysis catheter. Nephrology plans on repeat blood cultures via dialysis catheter, if positive will discuss discontinuing the IJ pe rmacath. Infectious disease added Cefepime for worsening white count, and continue on Vancomycin. Repeat chest x-ray shows cardiomegaly with left basilar atelectasis. Plans to transfer of the ICU today to select care unit. 04/17: Patient's right IJ permacath dialysis catheter was removed yesterday. Patient's nurse reports that there was pus on the end and this has been cultured. Patient remains in the intensive care unit but has been downgraded to cardiac stepdown unit. Patient has been afebrile, heart rate 57, blood pressure 109/59, pulse ox 100% on 2 L nasal cannula. monitoring manager has been a sinus rhythm. He does have short bouts of atrial fibrillation most often noted when he drinks cold liquids. Repeat blood work reveals WBC of 32, hemoglobin 9.6, platelet count 285. BUN 47 creatinine 3.63, potassium 4.3. Blood sugars running between 85 and 166. Total bilirubin 1.3, AST 98, ALT 517, alkaline phosphatase 391. Liver function tests are improved from yesterday. Chest x-ray today reveals cardiomegaly. Interstitial density slightly increased. Correlate to exclude developing pulmonary vascular congestion. Left base remains under penetrated area and some underlying atelectasis or infiltrate or effusion possible. 04/18: Patient is seen today on the cardiac stepdown unit. Patient is awake and answering questions but speech is slow and slurred. Reviewed plan of care with him and he verbalizes understanding. Patient is afebrile, heart rate 66, blood pressure 123/55, pulse ox 99% on 2 L nasal cannula. Catheter tip culture is showing presumptive MRSA. Repeat blood cultures have been ordered to see if bacteremia is clearing. Patient is currently on vancomycin pharmacy dosing and cefepime. YAYO performed by Dr. Bowie reveals no evidence of infective endocardit is. No evidence of intracardiac valves vegetation or abscess. Aortic sclerosis, trileaflet mildly thickened with trace aortic insufficiency. Thickened anterior posterior mitral leaflets with moderate mitral regurgitation. Moderate tricuspid regurgitation. Moderate pulmonic insufficiency. Mild biatrial enlargement. Intact anterior atrial septum and intact left atrial appendage without thrombus. Low normal LV with EF of 50%. No pericardial effusion. 04/19: Patient had worsening of his mental status during the night and remains confused worse than yesterday. Leandra is on hold this morning for temporary line placement for dialysis. Dr. Nguyen is planning on hemodialysis today and tomorrow. Patient is only able to state that he feels miserable and terrible but nothing specific. He has been afebrile, heart rate 74, blood pressure 161/75, pulse ox 91% on room air. WBC is 28.4, hemoglobin 8.6, platelet count 285. CO2 19, BUN 75 and creatinine 5.85. Blood sugars running between 205 and 235. Vancomycin level XXI.5. Repeat blood cultures obtained on April 18 are also positive. CAT scan of the abdomen and pelvis with contrast revealed moderate anasarca. Small bilateral pleural effusions with adjacent atelectasis superimposed infiltrates not excluded. Mild urinary bladder wall thickening, correlate for cystitis. No significant contrast excretion into the renal colle ction system on the delayed images. No significant intra-abdominal pelvic abnormality. Tetracycline has recommended continuing vancomycin. 04/20: Patient had a temporary dialysis catheter placed in the right groin and underwent hemodialysis treatment yesterday but due to patient's restlessness it was not a good treatment. His mental status however is significantly improved today. We will plan to order Dilaudid 1 mg before dialysis treatment and if necessary Valium 5 mg can be given. Patient's nurses been updated. Dr. Wills is planning to remove dialysis catheter following treatment today. Blood cultures remain positive including those drawn on April 19. Repeat blood cultures ordered for tomorrow. Dr. Presley has been updated. He has been afebrile, heart rate 65, blood pressure 134/72, pulse ox 97% on 2 L nasal cannula. Blood sugars running between 90-162. Vancomycin level XVIII. REVIEW OF SYSTEMS Constitutional: No fever, no chills, no night sweats. No weight change. Reported weakness, reported fatigue reported lethargy. Reported daytime sl eepiness. EENT: No headache. No blurred vision or double vision, no loss of vision. No loss of Hearing, no ringing in the ears, no dizziness. No nasal drainage or congestion. No epistaxis. No sore throat. Lungs: No shortness of breath, cough, no sputum production. No wheezing. Cardiovascular: No chest pain, no lower extremity edema. No palpitations. No paroxysmal nocturnal dyspnea. No orthopnea. No lightheadedness or dizziness. No syncopal episodes. Abdominal: No abdominal pain. No nausea, vomiting. No diarrhea. No constipation. No bloody or tarry stools. No loss of appetite. Genitourinary: No dysuria, increased frequency, urgency. No urinary retention. Musculoskeletal: No myalgias. No muscle weakness, no gait dysfunction, no frequent falls. No back pain. No neck pain. Integumentary: No wounds, no lesions. No rash or pruritus. No unusual bruising. No change in hair or nails. Neurologic: No aphasia. No facial droop. Reported change in mentation. No head injury. No headache. No paralysis. No paresthesia. Psychiatric: No depression. No anxiety. No mood swings. Endocrine: Noted abnormal blood sugars. No weight change. PHYSICAL EXAMINATION Gen: This is a 59-year-old male patient seen on the cardiac stepdown unit. He is resting in bed and appears to be in no acute respiratory distress. HEENT: Head is atraumatic, normocephalic. Pupils equal, round. Sclerae is anicteric. NECK: Supple. No JVD. No lymphadenopathy. No thyromegaly. LUNGS: Clear to auscultation. No wheezes or rhonchi. No intercostal retractions. HEART: Regular rate and rhythm. 2/6 systolic murmur. ABDOMEN: Soft. Bowel sounds are present. No masses. No tenderness. EXTREMITIES: No pedal edema. No calf tenderness. NEUROLOGICAL: Patient is oriented to person and place. Mental status is improved today. He is able to follow commands, he is able to answer questions appropriately. He understands a generalized plan of care. ASSESSMENT AND PLAN 1. Sepsis and MRSA bacteremia secondary to dialysis catheter. Permacath has been removed as of yesterday and culture of tip done. Patient is followed by Dr. Presley and continued on cefepime and vancomycin. Plan is for temporary catheter placement with hemodialysis for 2 days and then remove this with plan for permanent catheter placement once blood cultures are clear. 2. Metabolic encephalopathy secondary to sepsis, uremia, pain medication and benzodiazepines improving. Lorazepam has been discontinued. 3. End-stage renal disease on hemodialysis. Temporary catheter to be placed for dialysis today and tomorrow. Permanent catheter will be placed once bacteremia is cleared. Consult with nephrology and vascular surgery appreciated. Continue PhosLo 1334 mg 3 times daily. Dilaudid 1 mg IV 1 to be given prior to dialysis treatment today and Valium available if needed. 4. Fall secondary to degenerative disc disease and spinal stenosis. MRI as an outpatient revealed severe spinal stenosis. Patient has outpatient orthopedic evaluation pending. PT and OT following. 5. Acute syncopal episode most likely vasovagal, patient had brief CPR. Cardiology consult appreciated. 6. History of coronary artery disease with previous PTCA to LAD and circumflex. Lexiscan was negative on previous admission. Continue Plavix 75 mg daily, Imdur 30 mg daily, Lopressor 25 mg in the morning and evening. 7. Paroxysmal atrial fibrillation. Continue eliquis 2.5 mg twice daily and metoprolol, amiodarone at 200 mg daily. 8. Ischemic cardiomyopathy. Continue as in #60. 9. Diabetes mellitus type 2, insulin requiring. Continue Levemir 20 units daily, NovoLog scale before meals and at bedtime, 10. Diabetic neuropathy. Continue gabapentin 100 mg 3 times daily. 11. Hypertension. Continue hydralazine 25 mg 3 times daily, losartan 50 mg at bedtime. 12. Anemia of chronic disease. Continue to monitor. 13. GI prophylaxis. Continue Protonix. 14. DVT prophylaxis. Continue eliquis. DISCHARGE PLAN [facility] most likely middle of next week. Impression and plan of care have been directed as dictated by the signing physician. Katelyn Wesley nurse practitioner acting as scribe for signing physician. Objective - Vital Signs Vital signs: Vital Signs Temp 97.9 F 04/20/20 04:00 Pulse 65 04/20/20 04:00 Resp 18 04/20/20 04:00 BP 134/72 04/20/20 04:00 Pulse Ox 97 04/20/20 04:00 Intake & Output 04/19/20 04/20/20 04/20/20 18:59 06:59 18:59 Intake Total 210 420 Output Total 0 Balance 210 420 Weight 90 kg Intake: IV 210 KVO 200 Oral 420 Output: Hemodialysis 0 Other: Voiding Method Incontinent Incontinent # Voids 1 - Labs CBC & Chem 7: 04/19/20 06:39 04/19/20 06:39 Labs: Abnormal Lab Results - Last 24 Hours (Table) 04/19/20 04/19/20 04/19/20 Range/Units 11:57 16:55 20:03 POC Glucose (mg/dL) 187 H 190 H 162 H (75-99) mg/dL Microbiology - Last 24 Hours (Table) 04/19/20 06:39 Blood Culture Gram Stain - Preliminary Blood 04/19/20 06:39 Blood Culture - Final Blood 04/18/20 08:51 Blood Culture Gram Stain - Preliminary Blood Blood Culture - Preliminary Presumptive MRSA 04/17/20 08:20 Catheter Tip Culture - Final Catheter Tip Methicillin resist S. aureus 04/18/20 08:51 Blood Culture - Final Blood
--- NOTE | 2020-04-20 11:23 | P.PN ---
Subjective This is a pleasant 59-year-old male past medical history significant for end-stage renal disease on hemodialysis, coronary artery disease status post PCI of the circumflex and proximal LAD, paroxysmal atrial fibrillation on long- term anticoagulation, diabetes mellitus, hypertension and dyslipidemia. He follows in the office with Dr. Bowie. He is seen and examined resting comfortably sitting up in bed in no acute distress. He just back from getting a temporary dialysis catheter placed in the right groin. Blood pressure 138/73 heart rate 74 afebrile maintaining oxygen saturation on room air. Laboratory data reviewed, WBC 28.4, hgb 8.6, plt 285, sodium 138, potassium 4.4, creatinine 5.85. Currently his eliquis is on hold for possible permanent catheter placement Wednesday. He is complaining of some pain in the right anterior and posterior chest with deep inspiration. He denies shortness of breath, dizziness or palpitations. 04/20/2020 Patient is seen and examined sitting up in bed. He is communicating appropriately. He states overnight he had multiple episodes of confusion and forgetting where he was. He denies any worsening shortness of breath. He has no exertional chest pain, dizziness or palpitations. He continues to have pain in the right anterior chest wall with deep inspiration or movement. Blood pressure 134/72 heart rate 65 afebrile maintaining oxygen saturation on nasal cannula. Eliquis continues to be on hold for possible permanent permacath placement. GENERAL: Well-appearing, well-nourished and in no acute distress. NECK: Supple without JVD or thyromegaly. LUNGS: Breath sounds clear to auscultation bilaterally. Respiration equal and unlabored. No wheezes, rales or rhonchi. Diminished bilaterally. HEART: Regular rate and rhythm with systolic ejection murmur at the base, no rubs or gallops. S1 and S2 heard. EXTREMITIES: Normal range of motion, no edema. No clubbing or cyanosis. Peripheral pulses intact. ASSESSMENT Sepsis and MRSA bacteremia secondary to dialysis catheter Encephalopathy End stage renal disease on HD Syncope Coronary artery disease s/p PCI Paroxysmal atrial fibrillation, currently maintaining sinus mechanism Diabetes mellitus Hypertension PLAN Continue to hold Eliquis pending possible permanent catheter placement. Nurse Practitioner note has been reviewed, I agree with a documented findings and plan of care. Patient was seen and examined. Objective - Vital Signs Vital signs: Vital Signs Temp 97.9 F 04/20/20 04:00 Pulse 65 04/20/20 04:00 Resp 18 04/20/20 04:00 BP 134/72 04/20/20 04:00 Pulse Ox 97 04/20/20 04:00 Intake & Output 04/19/20 04/20/20 04/20/20 18:59 06:59 18:59 Intake Total 210 420 Output Total 0 Balance 210 420 Weight 90 kg Intake: IV 210 KVO 200 Oral 420 Output: Hemodialysis 0 Other: Voiding Method Incontinent Incontinent # Voids 1 - Labs CBC & Chem 7: 04/19/20 06:39 04/19/20 06:39 Labs: Abnormal Lab Results - Last 24 Hours (Table) 04/19/20 04/19/20 04/19/20 Range/Units 11:57 16:55 20:03 POC Glucose (mg/dL) 187 H 190 H 162 H (75-99) mg/dL 04/20/20 Range/Units 10:10 POC Glucose (mg/dL) 112 H (75-99) mg/dL Microbiology - Last 24 Hours (Table) 04/19/20 16:01 Blood Culture - Final Blood 04/19/20 06:39 Blood Culture Gram Stain - Preliminary Blood 04/19/20 06:39 Blood Culture - Final Blood 04/18/20 08:51 Blood Culture Gram Stain - Preliminary Blood Blood Culture - Preliminary Presumptive MRSA 04/17/20 08:20 Catheter Tip Culture - Final Catheter Tip Methicillin resist S. aureus 04/18/20 08:51 Blood Culture - Final Blood
--- NOTE | 2020-04-20 11:34 | P.PN ---
Subjective Progress Note Date: 04/20/20 Principal diagnosis: Renal fire, staph aureus sepsis. On 04/16/2020 patient seen in follow-up in intensive care unit, he is slightly more arousable on today's exam, he is given some simple answers, he is oriented to person and place, disoriented to time. Drifts back to sleep if left unstimulated. Appears to be in no acute distress although he does admit to being short of breath at times. Seems to be breathing comfortably currently, he is on 2 L of oxygen with pulse ox of 99%, he had hemodialysis yesterday would removal of 1 L of fluid. His been afebrile. His follow-up blood cultures from 04/15/2020 continue to show gram-positive cocci in groups. Patient continues on vancomycin and cefepime for antibiotic coverage, ID service is following, patient has been having intermittent runs of A. fib with RVR, and spontaneously converts back to sinus. He is in sinus mechanism right now. Cardiology is following, patient is off the Cardizem infusion, he is on oral amiodarone, and he is on Eliquis for anticoagulation. On 04/17/2000 patient seen in follow-up in the intensive care unit, he is currently on 3 L of oxygen, did not require BiPAP support, pulse ox is 100% on 3 L, he is breathing comfortably, he is lethargic, but arousable, he wakes up and answers simple questions, denies any chest discomfort, is currently in sinus mechanism on the monitor, his had intermittent self-limiting bouts of atrial fibrillation, he is on oral amiodarone and Eliquis for anticoagulation. Remains on cefepime and vancomycin, and his follow-up blood cultures from 04/15/2020 are again positive for presumptive MRSA. ID service is following, the source of bacteremia is likely related to hemodialysis catheter in the right subclavian area, fasting surgery has been consulted for removal of the hemodialysis catheter today and insertion of a new hemodialysis catheter in the next 48 hours. Patient has been afebrile, patient had hemodialysis yesterday would removal of 700 mL of fluid. After hemodialysis he did have some lower blood pressures with systolic in the 80s, and in view of relative hypotension his transfer out of ICU was held. On 2020 patient seen in follow[facility]up [facility], his last hemodialysis session was yesterday would removal of 700 mL of fluid. No signs of any acute respiratory distress, patient is on 2 L of oxygen pulse ox is 97%, his been afebrile, vital signs have been stable. His right subclavian permacath has been discontinued, today's labs have been reviewed, no CBC, BMP showed creatinine 5.19, BUN is 70, potassium is 4.1. His liver enzymes were improving on yesterday's labs. He has been afebrile. His last follow-up blood culture from 04/17/2020 showed presumptive MRSA. he continues on cefepime and vancomycin, ID service is following. Progress note dated 04/19/2020. [id number] male with history of staph aureus sepsis. His hemodialysis catheter was removed. There is plans for a another catheter to be placed. He may also have a permanent hemodialysis catheter placed in the near future. He continues on vancomycin. Infectious diseases are following. The patient is a bit more alert today. He is not on any supplemental oxygen. Saturations are in the low 90s. He is always sleeping when we see him. White count is 28.4, hemoglobin 8.6, hematocrit 28.0, and platelet count 285,000. Sodium is 138, potassium 4.4, chlorides 103, CO2 19, anion gap 16, BUN 75, and creatinine 5.85. Blood cultures were positive from the catheter tip on 04/17/2020. The patient has a history of prior cardiac arrest, end-stage renal disease, recurrent falls, CAD, type 2 diabetes, anemia of chronic disease, obesity, sleep apnea syndrome, right second toe cellulitis, abnormal liver enzymes, and mental status changes, which are improving somewhat. Progress note dated 04/20/2020. 59-year-old male, with history of Staphylococcus aureus sepsis. His previous hemodialysis catheter was removed. The patient will eventually need a permanent hemodialysis catheter placed. The patient continues on vancomycin. Infectious diseases is following. Clinically, he is doing a bit better. He is a bit more awake today. He's been weaned down to 2 L nasal cannula. He is apparently scheduled to have dialysis today. No new lab data today. More recent blood cultures from 04/19/2020, are negative. Temperature is 97.9, heart rate 65, respiratory rate 18, but pressure 1:30/72, with a mean of 92, and 2 L saturation is between 97 and 98%. Objective - Vital Signs Vital signs: Vital Signs Temp 97.9 F 04/20/20 04:00 Pulse 65 04/20/20 04:00 Resp 18 04/20/20 04:00 BP 134/72 04/20/20 04:00 Pulse Ox 97 04/20/20 04:00 Intake & Output 04/19/20 04/20/20 04/20/20 18:59 06:59 18:59 Intake Total 210 420 Output Total 0 Balance 210 420 Weight 90 kg Intake: IV 210 KVO 200 Oral 420 Output: Hemodialysis 0 Other: Voiding Method Incontinent Incontinent # Voids 1 - Exam GENERAL EXAM: Sleepy, but arousable to voice, currently on 2 L nasal cannula. HEAD: Normocephalic/atraumatic. EYES: Normal reaction of pupils, equal size. Conjunctiva pink, sclera white. NOSE: Clear with pink turbinates. THROAT: No erythema or exudates. NECK: No masses, no JVD, no thyroid enlargement, no adenopathy. CHEST: No chest wall deformity. Symmetrical expansion. Right subclavian has been removed. LUNGS: Equal air entry some rhonchi, but without crackles or wheezes. Breath sounds equal bilaterally. CVS: Regular rate and rhythm, normal S1 and S2, no gallops, soft systolic murmur, loudest at the left midclavicular line fourth to fifth intercostal space, no rubs. Heart rate 65 bpm. ABDOMEN: Soft, nontender. No hepatosplenomegaly, normal bowel sounds, no guarding or rigidity. EXTREMITIES: No clubbing, no edema, no cyanosis, 2+ pulses and upper and lower extremities. Left upper arm AV shunt in place, with positive bruit and thrill MUSCULOSKELETAL: Muscle strength and tone normal. SPINE: No scoliosis or deformity SKIN: No rashes. CENTRAL NERVOUS SYSTEM: Patient is lethargic/sleepy, but does arouse. He is appropriate when he is awake. - Labs CBC & Chem 7: 04/19/20 06:39 04/19/20 06:39 Labs: Abnormal Lab Results - Last 24 Hours (Table) 04/19/20 04/19/20 04/19/20 Range/Units 11:57 16:55 20:03 POC Glucose (mg/dL) 187 H 190 H 162 H (75-99) mg/dL 04/20/20 Range/Units 10:10 POC Glucose (mg/dL) 112 H (75-99) mg/dL Microbiology - Last 24 Hours (Table) 04/19/20 16:01 Blood Culture - Final Blood 04/19/20 06:39 Blood Culture Gram Stain - Preliminary Blood 04/19/20 06:39 Blood Culture - Final Blood 04/18/20 08:51 Blood Culture Gram Stain - Preliminary Blood Blood Culture - Preliminary Presumptive MRSA 04/17/20 08:20 Catheter Tip Culture - Final Catheter Tip Methicillin resist S. aureus 04/18/20 08:51 Blood Culture - Final Blood Assessment and Plan Assessment: Acute hypoxemic respiratory failure, secondary to methicillin-resistant staph aureus sepsis, as well as acute diastolic CHF. Methicillin-resistant staph aureus bacteremia, and sepsis, likely secondary to his subclavian dialysis catheter, has been removed. Status post cardiac arrest, with asystole and/or pulseless electrical activity, brief, with 2 minutes of cardiopulmonary resuscitation. Chronic end-stage renal disease, currently on hemodialysis, noncompliant. Recurrent falls. History of coronary artery disease. Diabetes mellitus, type II, with diabetic neuropathy and nephropathy. Anemia of chronic disease. Obstructive sleep apnea syndrome. Morbid obesity. Right second toe cellulitis. Congestive hepatopathy, improved. Leukocytosis, secondary to staph sepsis. Encephalopathy, likely secondary to sepsis. Plan: Plan dated 04/20/2020. The patient appears to be doing better. Actually, this morning, he was a bit more awake than normal. His vital signs are very stable. On room air, saturations 93%. On 2 L, his saturation is 97%. He is supposed to have dialysis today. He remains on vancomycin for his methicillin-resistant staph aureus bacteremia. His transesophageal echocardiogram did not reveal any vegetations. His other medications are reviewed. We will see the patient in the future, only as needed. Please feel free to call us back should he have any respiratory decline. No additional recommendations are made at this time. Time with Patient: Less than 30
[2020-04-20 11:52] LABS: Glucose,Whole Blood 133 mg/dL (75-99)
[2020-04-20] MEDS ORDERED: VANCOMYCIN 1,500 MG in SODIUM CHLORIDE 0.9% 250 ML IVPB ONE (12:00)
[2020-04-20] MEDS: allopurinoL 100 MG TAB PO SCH (12:03)
[2020-04-20] MEDS: hydrOXYzine pamoate 25 MG CAP PO PRN (12:03)
[2020-04-20] MEDS: CLOPIDOGREL 75 MG TAB PO SCH (12:03)
[2020-04-20] MEDS: PANTOPRAZOLE 40 MG TABLET PO SCH (12:03)
[2020-04-20] MEDS: GABAPENTIN 100 MG CAP PO SCH ×3 (12:03→20:54)
[2020-04-20] MEDS: INSULIN DETEMIR (LEVEMIR) 100 UNIT/ML SYR SQ SCH (12:08)
--- NOTE | 2020-04-20 12:58 | PN ---
PROGRESS NOTE DATE OF SERVICE: 04/20/2020 REASON FOR FOLLOWUP: MRSA bacteremia secondary to PermCath infection. INTERVAL HISTORY: The patient is currently afebrile. The patient is breathing comfortably. The patient denies having any chest pain. No shortness of breath. Occasional cough. No abdominal pain. No nausea, vomiting or diarrhea. PHYSICAL EXAMINATION: Blood pressure 134/72, pulse of 64, temperature 97.9. He is 97% on 2 L nasal cannula. General description is a middle-aged male lying in bed in no distress. Respiratory system: Unlabored breathing. Clear to auscultation anteriorly. Heart S1, S2. Regular rate and rhythm. ABDOMEN: Soft, no tenderness. LAB: is 18. Blood cultures from April 19, positive. DIAGNOSTIC IMPRESSION AND PLAN: Patient with MRSA bacteremia secondary to [id number] that has been discontinued. YAYO was negative. CT of abdomen and pelvis did not show any abnormality of the lumbar spine. MRI could not be done because of his renal failure. Patient to continue with vancomycin. Daily blood cultures to document clearance of bacteremia. Continue supportive care. MMODL / IJN: [id number] /
[2020-04-20] MEDS ORDERED: HYDROmorphone 1 MG/ML 1 ML SYRINGE IVP PRN (16:19)
[2020-04-20 16:42] LABS: Glucose,Whole Blood 146 mg/dL (75-99)
[2020-04-20 20:16] LABS: Glucose,Whole Blood 132 mg/dL (75-99)
[2020-04-20] MEDS: LOSARTAN 50 MG TAB PO SCH (20:54)
[2020-04-21 06:08] LABS: Glucose,Whole Blood 99 mg/dL (75-99)
[2020-04-21] MEDS: INSULIN ASPART (NovoLOG) 100 UNIT/ML VIAL SQ SCH ×4 (06:32→21:57)
[2020-04-21] MEDS: AMIODARONE 200 MG TAB PO SCH ×2 (07:36→16:10)
[2020-04-21] MEDS: hydrALAZINE HCL 25 MG TAB PO SCH ×3 (07:37→21:56)
[2020-04-21] MEDS: METOPROLOL TARTRATE 25 MG TAB PO SCH ×2 (07:37→21:56)
[2020-04-21] MEDS: ISOSORBIDE MONONITRATE ER 30 MG TAB.ER.24H PO SCH (07:37)
[2020-04-21] MEDS: hydrOXYzine pamoate 25 MG CAP PO PRN (09:07)
[2020-04-21] MEDS: GABAPENTIN 100 MG CAP PO SCH ×3 (09:07→21:56)
[2020-04-21] MEDS: PANTOPRAZOLE 40 MG TABLET PO SCH (09:07)
[2020-04-21] MEDS: CLOPIDOGREL 75 MG TAB PO SCH (09:07)
[2020-04-21] MEDS: allopurinoL 100 MG TAB PO SCH (09:07)
[2020-04-21] MEDS: INSULIN DETEMIR (LEVEMIR) 100 UNIT/ML SYR SQ SCH (09:08)
[2020-04-21] MEDS: HYDROcodone/APAP 10-325MG 1 EACH TAB PO PRN ×2 (09:12→13:29)
[2020-04-21] MEDS ORDERED: HYDROmorphone 1 MG/ML 1 ML SYRINGE IVP STA (09:20)
--- NOTE | 2020-04-21 09:54 | P.PN ---
Subjective Progress Note Date: 04/21/20 HISTORY OF PRESENT ILLNESS 59 years old male patient of Dr. Mckeon with past medical history of end-stage renal disease on hemodialysis Wednesday and Wednesday, coronary artery disease post angioplasty, and stent placement last catheterization was February 09 with stent of the left circumflex and proximal LAD, atrial fibrillation, diabetes, GERD, hyperlipidemia, hypertension. He does have intermittent lesion along the mid LAD and follows Dr. Hinojosa on as outpatient. Patient was last admitted in February 16 with chest pain and unstable angina, comes in this time with change in mental status, and multiple falls at home. Patient is unable to provide any history due to increased drowsiness. History obtained from the chart. It appears patient had a fall in the bathroom as his leg gave out. He denies any dizziness or syncope episode. CT of the head was obtained that showed no acute lesions. Patient missed 2 dialysis appointment, last hemodialysis was 1 week ago. In the ER patient's blood pressure was 202/94 temp of 99 pulse 91 and respiratory rate 19 on assessment of patient's lab patient had a any, hemoglobin 10.7 hematocrit 32.4 sodium 133 chloride 92 bicarb 21 BUN 86 creatinine 7.56 glucose 237. Urinalysis does suggest leukocytosis with positive blood and positive protein. Urine culture was sent. On evaluation today patient is found to be lying in bed. He is unable to provide any history. Patient did Gabapentin, Dilaudid and 1 L of bolus of IV fluids. We will hold pain medication. Decrease gabapentin 100 3 times a day. Patient will be started on levofloxacin renally adjusted to 250 every 48 hours. Ativan reduced to 0.5 mg 3 times a day. Hold off diuretics. Nephrology consulted At 2:30 this afternoon patient became unresponsive as patient was hooked to the dialysis. The A team responded to the patient did mention patient was pulseless. A brief CPR was done for 2 minutes, with return of spontaneous circulation and return of the pulse with no need of epinephrine. Patient's blood pressure was found to be low. Cardiology consult will be placed. Echo will be ordered. Patient was noted to be in atrial fibrillation and was transferred to the ICU on nonrebreather mask. Another attempt was made to start the hemodialysis while patient was arousable and follows all commands he was found to be more lethargic. Patient's blood pressure dropped on hemodialysis and became unresponsive not responding to sternal rub. Was noted to be in A. fib with RVR. Patient was placed on BiPAP intubation was not required. 04/12 patient currently in the ICU. Vitals are stable with temp of 98 pulse 67 and respiratory rate 19 and blood pressure 156/71 oxygen saturation 95% on 40% on BiPAP. Patient has leukocytosis of 18 improved from 20 hemoglobin 9.9, sodium 134 chloride 97 bicarb 19 BUN 104 creatinine 8.15 phosphorus 10.7 and total bilirubin 1.7 AST 2932 ALT 2727 alkaline phosphatase 449. Cardiology evaluated the patient thinks patient's episode of unresponsiveness could be vasovagal from low blood pressure. Continue to monitor patient's blood pressure with possible orthostatics when patient is stable. Metoprolol dose increased to 25 twice a day. Initiated on amiodarone 100 mg daily patient is being dialyzed today with minimal ultrafiltration. We will hold hydralazine and Cozaar for systolic less than 125. Patient currently off pressors. Spoke to patient's at bedside who mentioned patient has been falling for the past few months. He had MRI of the lower back done as outpatient that suggested severe spinal stenosis. Patient was set up for PT as outpatient but has been forgetting to often due to weakness in his legs. He has a outpatient appointment pending with an orthopedic surgery 04/13: Patient still in the ICU , on BiPAP, he still have less responsiveness, quite hypertensive today back on vasopressor. Patient was diagnosed tolerate hemodialysis for long had only 1 hour, still currently in significant encephalopathy status, continue IV antibiotic for now there is a small gang renous spot on the right second toe. 04/14: Patient is off vasopressor, still on BiPAP, still running back and forth between tachycardia and A. fib. No hemodialysis done today. Patient is very confused is taking his lines And all attachment out he required a sitter today. 04/15: Patient is off vasopressor, off BiPAP, he is more awake alert today, he is more hemodynamically stable. He is on hemodialysis and blood pressure is holding well so far should be able to do full cycle of hemodialysis today. Source of infection is still unclear suspect to be dialysis catheter which might be pulled out to place another catheter either in the femoral area or use the fistula graft had in the left forearm. 04/16: Patient evaluated in the ICU. Patient is arousable but easily drifts back to sleep. He had dialysis yesterday, with possible plans for dialysis again today due to elevated BUN/creatinine. Possible source of infection still unclear and suspected to be dialysis catheter. Nephrology plans on repeat blood cultures via dialysis catheter, if positive will discuss discontinuing the IJ pe rmacath. Infectious disease added Cefepime for worsening white count, and continue on Vancomycin. Repeat chest x-ray shows cardiomegaly with left basilar atelectasis. Plans to transfer of the ICU today to select care unit. 04/17: Patient's right IJ permacath dialysis catheter was removed yesterday. Patient's nurse reports that there was pus on the end and this has been cultured. Patient remains in the intensive care unit but has been downgraded to cardiac stepdown unit. Patient has been afebrile, heart rate 57, blood pressure 109/59, pulse ox 100% on 2 L nasal cannula. telemetry monitor has been a sinus rhythm. He does have short bouts of atrial fibrillation most often noted when he drinks cold liquids. Repeat blood work reveals WBC of 32, hemoglobin 9.6, platelet count 285. BUN 47 creatinine 3.63, potassium 4.3. Blood sugars running between 85 and 166. Total bilirubin 1.3, AST 98, ALT 517, alkaline phosphatase 391. Liver function tests are improved from yesterday. Chest x-ray today reveals cardiomegaly. Interstitial density slightly increased. Correlate to exclude developing pulmonary vascular congestion. Left base remains under penetrated area and some underlying atelectasis or infiltrate or effusion possible. 04/18: Patient is seen today on the cardiac stepdown unit. Patient is awake and answering questions but speech is slow and slurred. Reviewed plan of care with him and he verbalizes understanding. Patient is afebrile, heart rate 66, blood pressure 123/55, pulse ox 99% on 2 L nasal cannula. Catheter tip culture is showing presumptive MRSA. Repeat blood cultures have been ordered to see if bacteremia is clearing. Patient is currently on vancomycin pharmacy dosing and cefepime. YAYO performed by Dr. Bowie reveals no evidence of infective endocardit is. No evidence of intracardiac valves vegetation or abscess. Aortic sclerosis, trileaflet mildly thickened with trace aortic insufficiency. Thickened anterior posterior mitral leaflets with moderate mitral regurgitation. Moderate tricuspid regurgitation. Moderate pulmonic insufficiency. Mild biatrial enlargement. Intact anterior atrial septum and intact left atrial appendage without thrombus. Low normal LV with EF of 50%. No pericardial effusion. 04/19: Patient had worsening of his mental status during the night and remains confused worse than yesterday. Leandra is on hold this morning for temporary line placement for dialysis. Dr. Nguyen is planning on hemodialysis today and tomorrow. Patient is only able to state that he feels miserable and terrible but nothing specific. He has been afebrile, heart rate 74, blood pressure 161/75, pulse ox 91% on room air. WBC is 28.4, hemoglobin 8.6, platelet count 285. CO2 19, BUN 75 and creatinine 5.85. Blood sugars running between 205 and 235. Vancomycin level XXI.5. Repeat blood cultures obtained on April 18 are also positive. CAT scan of the abdomen and pelvis with contrast revealed moderate anasarca. Small bilateral pleural effusions with adjacent atelectasis superimposed infiltrates not excluded. Mild urinary bladder wall thickening, correlate for cystitis. No significant contrast excretion into the renal colle ction system on the delayed images. No significant intra-abdominal pelvic abnormality. Tetracycline has recommended continuing vancomycin. 04/20: Patient had a temporary dialysis catheter placed in the right groin and underwent hemodialysis treatment yesterday but due to patient's restlessness it was not a good treatment. His mental status however is significantly improved today. We will plan to order Dilaudid 1 mg before dialysis treatment and if necessary Valium 5 mg can be given. Patient's nurses been updated. Dr. Wills is planning to remove dialysis catheter following treatment today. Blood cultures remain positive including those drawn on April 19. Repeat blood cultures ordered for tomorrow. Dr. Presley has been updated. He has been afebrile, heart rate 65, blood pressure 134/72, pulse ox 97% on 2 L nasal cannula. Blood sugars running between 90-162. Vancomycin level XVIII. 04/21: She underwent dialysis yesterday with removal of a half a liter of fluid as was planned. Patient is scheduled for another treatment today. Patient states that she is feeling better. Mental status is improved from 2 days ago. Plan is to remove dialysis catheter after today's treatment. His blood cultures that were obtained yesterday are positive. Patient has been afebrile, heart rate 65, blood pressure 118/66, pulse ox 94% on 2 L nasal cannula. Creatinine 4.19. Blood sugars are running between 99 and 146. Patient did well with Dilaudid given 1 mg prior to dialysis treatment. We will plan to repeat this today. REVIEW OF SYSTEMS Constitutional: No fever, no chills, no night sweats. No weight change. Reported weakness, reported fatigue reported lethargy. Reported daytime sleepiness. EENT: No headache. No blurred vision or double vision, no loss of vision. No loss of Hearing, no ringing in the ears, no dizziness. No nasal drainage or co ngestion. No epistaxis. No sore throat. Lungs: No shortness of breath, cough, no sputum production. No wheezing. Cardiovascular: No chest pain, no lower extremity edema. No palpitations. No paroxysmal nocturnal dyspnea. No orthopnea. No lightheadedness or dizziness. No syncopal episodes. Abdominal: No abdominal pain. No nausea, vomiting. No diarrhea. No constipation. No bloody or tarry stools. No loss of appetite. Genitourinary: No dysuria, increased frequency, urgency. No urinary retention. Musculoskeletal: No myalgias. No muscle weakness, no gait dysfunction, no frequent falls. No back pain. No neck pain. Integumentary: No wounds, no lesions. No rash or pruritus. No unusual bruising. No change in hair or nails. Neurologic: No aphasia. No facial droop. Reported change in mentation improving. No head injury. No headache. No paralysis. No paresthesia. Psychiatric: No depression. No anxiety. No mood swings. Endocrine: Noted abnormal blood sugars. PHYSICAL EXAMINATION Gen: This is a 59-year-old male patient seen on the cardiac stepdown unit. He is resting in bed and appears to be in no acute respiratory distress. HEENT: Head is atraumatic, normocephalic. Pupils equal, round. Sclerae is anicteric. NECK: Supple. No JVD. No lymphadenopathy. No thyromegaly. LUNGS: Clear to auscultation. No wheezes or rhonchi. No intercostal retract ions. HEART: Regular rate and rhythm. 2/6 systolic murmur. ABDOMEN: Soft. Bowel sounds are present. No masses. No tenderness. EXTREMITIES: No pedal edema. No calf tenderness. NEUROLOGICAL: Patient is oriented to person and place. Mental status is improved today. He is able to follow commands, he is able to answer questions appropriately. He understands a generalized plan of care. ASSESSMENT AND PLAN 1. Sepsis and MRSA bacteremia secondary to dialysis catheter. Permacath has been removed as of yesterday and culture of tip done. Patient is followed by Dr. Presley and continued on cefepime and vancomycin. Plan is for temporary catheter placement with hemodialysis today and then remove this with plan for permanent catheter placement once blood cultures are clear. Blood cultures remain positive from yesterday. 2. Metabolic encephalopathy secondary to sepsis, uremia, pain medication and benzodiazepines improving. Lorazepam has been discontinued. 3. End-stage renal disease on hemodialysis. Temporary catheter to be placed for dialysis today and tomorrow. Permanent catheter will be placed once bacteremia is cleared. Consult with nephrology and vascular surgery appreciated. Continue PhosLo 1334 mg 3 times daily. Dilaudid 1 mg IV 1 to be given prior to dialysis treatment today and Valium available if needed. 4. Fall secondary to degenerative disc disease and spinal stenosis. MRI as an outpatient revealed severe spinal stenosis. Patient has outpatient orthopedic evaluation pending. PT and OT following. 5. Acute syncopal episode most likely vasovagal, patient had brief CPR. Cardiology consult appreciated. 6. History of coronary artery disease with previous PTCA to LAD and circumflex. Lexiscan was negative on previous admission. Continue Plavix 75 mg daily, Imdur 30 mg daily, Lopressor 25 mg in the morning and evening. 7. Paroxysmal atrial fibrillation. Continue eliquis 2.5 mg twice daily and metoprolol, amiodarone at 200 mg daily. (Eliquis on hold) 8. Ischemic cardiomyopathy. Continue as in #60. 9. Diabetes mellitus type 2, insulin requiring. Continue Levemir 20 units daily, NovoLog scale before meals and at bedtime, 10. Diabetic neuropathy. Continue gabapentin 100 mg 3 times daily. 11. Hypertension. Continue hydralazine 25 mg 3 times daily, losartan 50 mg at bedtime. 12. Anemia of chronic disease. Continue to monitor. 13. GI prophylaxis. Continue Protonix. 14. DVT prophylaxis. Continue eliquis. DISCHARGE PLAN [place] most likely middle of next week. Impression and plan of care have been directed as dictated by the signing physician. Katelyn Wesley nurse practitioner acting as scribe for signing physician. Objective - Vital Signs Vital signs: Vital Signs Temp 97.3 F L 04/21/20 04:00 Pulse 65 04/21/20 04:00 Resp 18 04/21/20 04:00 BP 118/66 04/21/20 04:00 Pulse Ox 94 L 04/21/20 04:00 Intake & Output 04/20/20 04/21/20 04/21/20 18:59 06:59 18:59 Intake Total 974 140 240 Output Total 500 0 Balance 474 140 240 Intake: IV 20 40 Invasive Line 5 20 40 Oral 954 100 240 Output: Urine 0 Hemodialysis 500 Other: Voiding Method Incontinent Incontinent # Voids 1 0 - Labs CBC & Chem 7: 04/19/20 06:39 04/21/20 08:08 Labs: Abnormal Lab Results - Last 24 Hours (Table) 04/20/20 04/20/20 04/20/20 Range/Units 10:10 11:42 16:41 Creatinine (0.66-1.25) mg/dL POC Glucose (mg/dL) 112 H 133 H 146 H (75-99) mg/dL 04/20/20 04/21/20 Range/Units 20:15 08:08 Creatinine 4.19 H (0.66-1.25) mg/dL POC Glucose (mg/dL) 132 H (75-99) mg/dL Microbiology - Last 24 Hours (Table) 04/20/20 07:34 Blood Culture Gram Stain - Preliminary Blood 04/20/20 07:34 Blood Culture - Final Blood 04/19/20 16:01 Blood Culture Gram Stain - Preliminary Blood Blood Culture - Preliminary Presumptive MRSA 04/19/20 06:39 Blood Culture Gram Stain - Preliminary Blood Blood Culture - Preliminary Presumptive MRSA 04/18/20 08:51 Blood Culture Gram Stain - Final Blood Blood Culture - Final Methicillin resist S. aureus 04/19/20 16:01 Blood Culture - Final Blood
--- NOTE | 2020-04-21 10:01 | P.PN ---
Subjective Patient is seen in follow-up for end-stage renal disease. He is maintained on hemodialysis on Wednesday schedule. He is being treated for MRSA bacteremia. Permacath was removed on April 17. Groin catheter was placed April 19 and worked well yesterday as the patient was more calm. No active complaints. Blood pressure stable. Vital signs are stable. General: The patient appeared well nourished and normally developed. HEENT: Head exam is unremarkable. Neck is without jugular venous distension. LUNGS: Breath sounds decreased. HEART: Rate and Rhythm are regular. ABDOMEN: Soft, nontender. EXTREMITITES: No edema. Objective - Vital Signs Vital signs: Vital Signs Temp 97.3 F L 04/21/20 04:00 Pulse 65 04/21/20 04:00 Resp 18 04/21/20 04:00 BP 118/66 04/21/20 04:00 Pulse Ox 94 L 04/21/20 04:00 Intake & Output 04/20/20 04/21/20 04/21/20 18:59 06:59 18:59 Intake Total 974 140 240 Output Total 500 0 Balance 474 140 240 Intake: IV 20 40 Invasive Line 5 20 40 Oral 954 100 240 Output: Urine 0 Hemodialysis 500 Other: Voiding Method Incontinent Incontinent # Voids 1 0 - Labs CBC & Chem 7: 04/19/20 06:39 04/21/20 08:08 Labs: Abnormal Lab Results - Last 24 Hours (Table) 04/20/20 04/20/20 04/20/20 Range/Units 10:10 11:42 16:41 Creatinine (0.66-1.25) mg/dL POC Glucose (mg/dL) 112 H 133 H 146 H (75-99) mg/dL 04/20/20 04/21/20 Range/Units 20:15 08:08 Creatinine 4.19 H (0.66-1.25) mg/dL POC Glucose (mg/dL) 132 H (75-99) mg/dL Microbiology - Last 24 Hours (Table) 04/20/20 07:34 Blood Culture Gram Stain - Preliminary Blood 04/20/20 07:34 Blood Culture - Final Blood 04/19/20 16:01 Blood Culture Gram Stain - Preliminary Blood Blood Culture - Preliminary Presumptive MRSA 04/19/20 06:39 Blood Culture Gram Stain - Preliminary Blood Blood Culture - Preliminary Presumptive MRSA 04/18/20 08:51 Blood Culture Gram Stain - Final Blood Blood Culture - Final Methicillin resist S. aureus 04/19/20 16:01 Blood Culture - Final Blood Assessment and Plan Plan: Assessment: 1. End-stage renal disease maintained on hemodialysis on Wednesday schedule. 2. MRSA bacteremia secondary to permacath infection status post removal on April 17. 3. Chronic kidney disease mineral bone disease maintained on PhosLo. 4. Hypertension with chronic kidney disease. Controlled. 5. Diabetes mellitus. 6. A. fib maintained on amiodarone and Lopressor. 7. Anemia of chronic kidney disease. Plan: Hemodialysis today and then remove groin catheter. Patient will need a permacath once cleared by ID. Monitor vancomycin levels. Target level near 15. Continue to assess daily for need for dialysis. Add Aranesp.
--- NOTE | 2020-04-21 10:27 | P.PN ---
Subjective This is a pleasant 59-year-old male past medical history significant for end-stage renal disease on hemodialysis, coronary artery disease status post PCI of the circumflex and proximal LAD, paroxysmal atrial fibrillation on long- term anticoagulation, diabetes mellitus, hypertension and dyslipidemia. He follows in the office with Dr. Bowie. He is seen and examined resting comfortably sitting up in bed in no acute distress. He just back from getting a temporary dialysis catheter placed in the right groin. Blood pressure 138/73 heart rate 74 afebrile maintaining oxygen saturation on room air. Laboratory data reviewed, WBC 28.4, hgb 8.6, plt 285, sodium 138, potassium 4.4, creatinine 5.85. Currently his eliquis is on hold for possible permanent catheter placement Wednesday. He is complaining of some pain in the right anterior and posterior chest with deep inspiration. He denies shortness of breath, dizziness or palpitations. 04/20/2020 Patient is seen and examined lying flat resting comfortably in bed in no acute distress. He denies symptoms of shortness of breath. He continues to have pleuritic pain on the right anterior chest wall. Blood pressure 118/66 heart rate 65 afebrile maintaining oxygen saturation on room air. GENERAL: Well-appearing, well-nourished and in no acute distress. NECK: Supple without JVD or thyromegaly. LUNGS: Breath sounds clear to auscultation bilaterally. Respiration equal and unlabored. No wheezes, rales or rhonchi. Diminished bilaterally. HEART: Regular rate and rhythm with systolic ejection murmur at the base, no rubs or gallops. S1 and S2 heard. EXTREMITIES: Normal range of motion, no edema. No clubbing or cyanosis. Peripheral pulses intact. ASSESSMENT Sepsis and MRSA bacteremia secondary to dialysis catheter Encephalopathy End stage renal disease on HD Syncope Coronary artery disease s/p PCI Paroxysmal atrial fibrillation, currently maintaining sinus mechanism Diabetes mellitus Hypertension PLAN Continue to hold Eliquis pending dialysis access placement. Continue current medical regimen. Nurse Practitioner note has been reviewed, I agree with a documented findings and plan of care. Patient was seen and examined. Objective - Vital Signs Vital signs: Vital Signs Temp 97.3 F L 04/21/20 04:00 Pulse 65 04/21/20 04:00 Resp 18 04/21/20 04:00 BP 118/66 04/21/20 04:00 Pulse Ox 94 L 04/21/20 04:00 Intake & Output 04/20/20 04/21/20 04/21/20 18:59 06:59 18:59 Intake Total 974 140 240 Output Total 500 0 Balance 474 140 240 Intake: IV 20 40 Invasive Line 5 20 40 Oral 954 100 240 Output: Urine 0 Hemodialysis 500 Other: Voiding Method Incontinent Incontinent # Voids 1 0 - Labs CBC & Chem 7: 04/19/20 06:39 04/21/20 08:08 Labs: Abnormal Lab Results - Last 24 Hours (Table) 04/20/20 04/20/20 04/20/20 Range/Units 11:42 16:41 20:15 Creatinine (0.66-1.25) mg/dL POC Glucose (mg/dL) 133 H 146 H 132 H (75-99) mg/dL 04/21/20 Range/Units 08:08 Creatinine 4.19 H (0.66-1.25) mg/dL POC Glucose (mg/dL) (75-99) mg/dL Microbiology - Last 24 Hours (Table) 04/20/20 07:34 Blood Culture Gram Stain - Preliminary Blood 04/20/20 07:34 Blood Culture - Final Blood 04/19/20 16:01 Blood Culture Gram Stain - Preliminary Blood Blood Culture - Preliminary Presumptive MRSA 04/19/20 06:39 Blood Culture Gram Stain - Preliminary Blood Blood Culture - Preliminary Presumptive MRSA 04/18/20 08:51 Blood Culture Gram Stain - Final Blood Blood Culture - Final Methicillin resist S. aureus 04/19/20 16:01 Blood Culture - Final Blood
[2020-04-21 11:34] LABS: Glucose,Whole Blood 110 mg/dL (75-99)
--- NOTE | 2020-04-21 16:11 | PCN ---
PROCEDURE NOTE PREOP DIAGNOSIS: Chronic renal failure, positive blood culture. POSTOP DIAGNOSIS: Chronic renal failure, positive blood culture PROCEDURE PERFORMED: Removal of the dialysis catheter right femoral approach. DESCRIPTION OF PROCEDURE: This patient was seen in the room. Stitches were removed and the catheter was removed. The tip of the catheter was sent for culture and sensitivity. Pressure dressing applied. Patient tolerated the procedure well. MMODL / IJN: [id number] /
[2020-04-21 17:06] LABS: Glucose,Whole Blood 187 mg/dL (75-99)
[2020-04-21] MEDS: DARBEPOETIN ALFA 40 MCG/0.4 ML SYRINGE SQ SCH (17:38)
[2020-04-21 20:20] LABS: Glucose,Whole Blood 157 mg/dL (75-99)
[2020-04-21 21:48] LABS: Glucose,Whole Blood 152 mg/dL (75-99)
[2020-04-21] MEDS: LOSARTAN 50 MG TAB PO SCH (21:56)
[2020-04-22] MEDS: HYDROcodone/APAP 10-325MG 1 EACH TAB PO PRN (06:00)
--- NOTE | 2020-04-22 06:14 | PN ---
PROGRESS NOTE DATE OF SERVICE: 04/21/2020 REASON FOR FOLLOWUP: MRSA bacteremia secondary to his PermCath infection. INTERVAL HISTORY: Patient is currently afebrile. The patient is more awake, alert and appropriate today. The patient denies having any chest pain or shortness of breath. Occasional cough. No nausea. No abdominal pain. No diarrhea. PHYSICAL EXAMINATION: Blood pressure 132/76, pulse of 73, temperature of 98.6. He is 97% on 2 L nasal cannula. General description is a middle-aged male lying in bed in no distress. Respiratory system: Unlabored breathing, decreased breath sounds. No wheeze. Heart S1, S2. Regular rate and rhythm. Abdomen is soft, no tenderness. LABS: No new labs have been obtained today. DIAGNOSTIC IMPRESSION AND PLAN: Patient with MRSA bacteremia persistent which is related to his PermCath which has been discontinued. Daily blood cultures to document clearance of bacteremia. Will continue vancomycin and monitor clinical course closely. MMODL / IJN: [id number] /
[2020-04-22 06:28] LABS: Glucose,Whole Blood 91 mg/dL (75-99)
[2020-04-22] MEDS: INSULIN ASPART (NovoLOG) 100 UNIT/ML VIAL SQ SCH ×4 (06:41→21:30)
[2020-04-22 07:47] LABS: Anisocytosis Slight; HCT 25.3 % (39.0-53.0); HGB 7.5 gm/dL (13.0-17.5); Hypochromasia Marked; MCH 26.6 pg (25.0-35.0); MCHC 29.8 g/dL (31.0-37.0); MCV 89.2 fL (80.0-100.0); Mean Platelet Volume 7.1; Platelet Count 215 k/uL (150-450); RBC 2.83 m/uL (4.30-5.90); RDW 17.3 % (11.5-15.5); WBC 22.5 k/uL (3.8-10.6)
[2020-04-22 08:12] LABS: Albumin 2.3 g/dL (3.5-5.0); Calcium 8.1 mg/dL (8.4-10.2); Potassium 4.2 mmol/L (3.5-5.1); Total Bilirubin 0.7 mg/dL (0.2-1.3); Total Protein 5.3 g/dL (6.3-8.2)
[2020-04-22] MEDS: allopurinoL 100 MG TAB PO SCH (09:04)
[2020-04-22] MEDS: ISOSORBIDE MONONITRATE ER 30 MG TAB.ER.24H PO SCH (09:04)
[2020-04-22] MEDS: PANTOPRAZOLE 40 MG TABLET PO SCH (09:04)
[2020-04-22] MEDS: hydrALAZINE HCL 25 MG TAB PO SCH ×3 (09:04→21:30)
[2020-04-22] MEDS: METOPROLOL TARTRATE 25 MG TAB PO SCH ×2 (09:04→21:30)
[2020-04-22] MEDS: INSULIN DETEMIR (LEVEMIR) 100 UNIT/ML SYR SQ SCH (09:04)
[2020-04-22] MEDS: AMIODARONE 200 MG TAB PO SCH (09:04)
[2020-04-22] MEDS: CLOPIDOGREL 75 MG TAB PO SCH (09:04)
[2020-04-22] MEDS: GABAPENTIN 100 MG CAP PO SCH ×3 (09:04→21:30)
--- NOTE | 2020-04-22 09:53 | P.PN ---
Subjective This is a pleasant 59-year-old male past medical history significant for end-stage renal disease on hemodialysis, coronary artery disease status post PCI of the circumflex and proximal LAD, paroxysmal atrial fibrillation on long- term anticoagulation, diabetes mellitus, hypertension and dyslipidemia. He follows in the office with Dr. Bowie. He is seen and examined resting comfortably sitting up in bed in no acute distress. He just back from getting a temporary dialysis catheter placed in the right groin. Blood pressure 138/73 heart rate 74 afebrile maintaining oxygen saturation on room air. Laboratory data reviewed, WBC 28.4, hgb 8.6, plt 285, sodium 138, potassium 4.4, creatinine 5.85. Currently his eliquis is on hold for possible permanent catheter placement Wednesday. He is complaining of some pain in the right anterior and posterior chest with deep inspiration. He denies shortness of breath, dizziness or palpitations. 04/20/2020 Patient is seen and examined lying flat resting comfortably in bed in no acute distress. He denies symptoms of shortness of breath. He continues to have pleuritic pain on the right anterior chest wall. Blood pressure 126/81 heart rate 62 afebrile and maintaining oxygen saturation on nasal cannula. Right femoral dialysis catheter was removed yesterday afternoon after dialysis per Dr. Santizo. GENERAL: Well-appearing, well-nourished and in no acute distress. NECK: Supple without JVD or thyromegaly. LUNGS: Breath sounds clear to auscultation bilaterally. Respiration equal and unlabored. No wheezes, rales or rhonchi. Diminished bilaterally. HEART: Regular rate and rhythm with systolic ejection murmur at the base, no rubs or gallops. S1 and S2 heard. EXTREMITIES: Normal range of motion, no edema. No clubbing or cyanosis. Peripheral pulses intact. ASSESSMENT Sepsis and MRSA bacteremia secondary to dialysis catheter Encephalopathy End stage renal disease on HD Syncope Coronary artery disease s/p PCI Paroxysmal atrial fibrillation, currently maintaining sinus mechanism Diabetes mellitus Hypertension PLAN Continue to hold Eliquis pending dialysis access placement. Please resume as soon as possible after his procedure. We will follow along as needed, follow up with Dr. Bowie upon discharge. Nurse Practitioner note has been reviewed, I agree with a documented findings and plan of care. Patient was seen and examined. Objective - Vital Signs Vital signs: Vital Signs Temp 98 F 04/22/20 04:40 Pulse 62 04/22/20 04:40 Resp 18 04/22/20 04:40 BP 126/81 04/22/20 04:40 Pulse Ox 99 04/22/20 04:40 Intake & Output 04/21/20 04/22/20 04/22/20 18:59 06:59 18:59 Intake Total 727 560 Output Total 50 Balance 727 -50 560 Weight 89.5 kg Intake: IV 50 Invasive Line 5 50 Oral [id number] 560 Output: Urine 50 Other: Voiding Method Incontinent Urinal # Voids 1 - Labs CBC & Chem 7: 04/22/20 07:10 04/22/20 07:10 Labs: Abnormal Lab Results - Last 24 Hours (Table) 04/21/20 04/21/20 04/21/20 Range/Units 11:32 17:02 20:17 WBC (3.8-10.6) k/uL RBC (4.30-5.90) m/uL Hgb (13.0-17.5) gm/dL Hct (39.0-53.0) % MCHC (31.0-37.0) g/dL RDW (11.5-15.5) % BUN (9-20) mg/dL Creatinine (0.66-1.25) mg/dL POC Glucose (mg/dL) 110 H 187 H 157 H (75-99) mg/dL Calcium (8.4-10.2) mg/dL ALT (4-49) U/L Alkaline Phosphatase (38-126) U/L Total Protein (6.3-8.2) g/dL Albumin (3.5-5.0) g/dL 04/21/20 04/22/20 04/22/20 Range/Units 21:46 07:10 07:10 WBC 22.5 H (3.8-10.6) k/uL RBC 2.83 L (4.30-5.90) m/uL Hgb 7.5 L (13.0-17.5) gm/dL Hct 25.3 L (39.0-53.0) % MCHC 29.8 L (31.0-37.0) g/dL RDW 17.3 H (11.5-15.5) % BUN 37 H (9-20) mg/dL Creatinine 3.91 H (0.66-1.25) mg/dL POC Glucose (mg/dL) 152 H (75-99) mg/dL Calcium 8.1 L (8.4-10.2) mg/dL ALT 107 H (4-49) U/L Alkaline Phosphatase 226 H (38-126) U/L Total Protein 5.3 L (6.3-8.2) g/dL Albumin 2.3 L (3.5-5.0) g/dL Microbiology - Last 24 Hours (Table) 04/19/20 16:01 Blood Culture Gram Stain - Final Blood Blood Culture - Final Methicillin resist S. aureus 04/19/20 06:39 Blood Culture Gram Stain - Final Blood Blood Culture - Final Methicillin resist S. aureus 04/21/20 08:08 Blood Culture Gram Stain - Preliminary Blood 04/21/20 08:08 Blood Culture - Final Blood 04/21/20 15:45 Catheter Tip Culture - Preliminary Catheter Tip 04/20/20 07:34 Blood Culture Gram Stain - Preliminary Blood Blood Culture - Preliminary Presumptive MRSA
[2020-04-22] MEDS ORDERED: hydrALAZINE HCL 20 MG/ML 1 ML VIAL IVP PRN (10:57)
--- NOTE | 2020-04-22 10:58 | P.PN ---
Subjective Patient is seen in follow-up for end-stage renal disease. He is maintained on hemodialysis on Wednesday schedule. He is being treated for MRSA bacteremia. Permacath was removed on April 17. Groin catheter was placed April 19 and and removed April 21. Remains confused. No active complaints. Blood pressure stable. Vital signs are stable. General: The patient appeared well nourished and normally developed. HEENT: Head exam is unremarkable. Neck is without jugular venous distension. LUNGS: Breath sounds decreased. HEART: Rate and Rhythm are regular. ABDOMEN: Soft, nontender. EXTREMITITES: No edema. Objective - Vital Signs Vital signs: Vital Signs Temp 98 F 04/22/20 04:40 Pulse 62 04/22/20 04:40 Resp 18 04/22/20 04:40 BP 126/81 04/22/20 04:40 Pulse Ox 99 04/22/20 04:40 Intake & Output 04/21/20 04/22/20 04/22/20 18:59 06:59 18:59 Intake Total 727 560 Output Total 50 Balance 727 -50 560 Weight 89.5 kg Intake: IV 50 Invasive Line 5 50 Oral [id number] 560 Output: Urine 50 Other: Voiding Method Incontinent Urinal # Voids 1 - Labs CBC & Chem 7: 04/22/20 07:10 04/22/20 07:10 Labs: Abnormal Lab Results - Last 24 Hours (Table) 04/21/20 04/21/20 04/21/20 Range/Units 11:32 17:02 20:17 WBC (3.8-10.6) k/uL RBC (4.30-5.90) m/uL Hgb (13.0-17.5) gm/dL Hct (39.0-53.0) % MCHC (31.0-37.0) g/dL RDW (11.5-15.5) % BUN (9-20) mg/dL Creatinine (0.66-1.25) mg/dL POC Glucose (mg/dL) 110 H 187 H 157 H (75-99) mg/dL Calcium (8.4-10.2) mg/dL ALT (4-49) U/L Alkaline Phosphatase (38-126) U/L Total Protein (6.3-8.2) g/dL Albumin (3.5-5.0) g/dL 04/21/20 04/22/20 04/22/20 Range/Units 21:46 07:10 07:10 WBC 22.5 H (3.8-10.6) k/uL RBC 2.83 L (4.30-5.90) m/uL Hgb 7.5 L (13.0-17.5) gm/dL Hct 25.3 L (39.0-53.0) % MCHC 29.8 L (31.0-37.0) g/dL RDW 17.3 H (11.5-15.5) % BUN 37 H (9-20) mg/dL Creatinine 3.91 H (0.66-1.25) mg/dL POC Glucose (mg/dL) 152 H (75-99) mg/dL Calcium 8.1 L (8.4-10.2) mg/dL ALT 107 H (4-49) U/L Alkaline Phosphatase 226 H (38-126) U/L Total Protein 5.3 L (6.3-8.2) g/dL Albumin 2.3 L (3.5-5.0) g/dL Microbiology - Last 24 Hours (Table) 04/21/20 08:08 Blood Culture Gram Stain - Preliminary Blood 04/19/20 16:01 Blood Culture Gram Stain - Final Blood Blood Culture - Final Methicillin resist S. aureus 04/19/20 06:39 Blood Culture Gram Stain - Final Blood Blood Culture - Final Methicillin resist S. aureus 04/21/20 08:08 Blood Culture - Final Blood 04/21/20 15:45 Catheter Tip Culture - Preliminary Catheter Tip 04/20/20 07:34 Blood Culture Gram Stain - Preliminary Blood Blood Culture - Preliminary Presumptive MRSA Assessment and Plan Plan: Assessment: 1. End-stage renal disease maintained on hemodialysis on Wednesday schedule. 2. MRSA bacteremia secondary to permacath infection status post removal on April 17. 3. Chronic kidney disease mineral bone disease maintained on PhosLo. 4. Hypertension with chronic kidney disease. Controlled. 5. Diabetes mellitus. 6. A. fib maintained on amiodarone and Lopressor. 7. Anemia of chronic kidney disease maintained on Aranesp. Plan: Continue to assess daily for need for dialysis. Patient will need a permacath once cleared by ID. Monitor vancomycin levels. Target level near 15. Hold Cozaar for now.
--- NOTE | 2020-04-22 11:17 | P.PN ---
Subjective Progress Note Date: 04/22/20 On 04/16/2020 patient seen in follow-up in intensive care unit, he is slightly more arousable on today's exam, he is given some simple answers, he is oriented to person and place, disoriented to time. Drifts back to sleep if left unstimulated. Appears to be in no acute distress although he does admit to being short of breath at times. Seems to be breathing comfortably currently, he is on 2 L of oxygen with pulse ox of 99%, he had hemodialysis yesterday would removal of 1 L of fluid. His been afebrile. His follow-up blood cultures from 04/15/2020 continue to show gram-positive cocci in groups. Patient continues on vancomycin and cefepime for antibiotic coverage, ID service is following, beverley schultz has been having intermittent runs of A. fib with RVR, and spontaneously converts back to sinus. He is in sinus mechanism right now. Cardiology is following, patient is off the Cardizem infusion, he is on oral amiodarone, and he is on Eliquis for anticoagulation. On 04/17/2000 patient seen in follow-up in the intensive care unit, he is currently on 3 L of oxygen, did not require BiPAP support, pulse ox is 100% on 3 L, he is breathing comfortably, he is lethargic, but arousable, he wakes up and answers simple questions, denies any chest discomfort, is currently in sinus mechanism on the monitor, his had intermittent self-limiting bouts of atrial fibrillation, he is on oral amiodarone and Eliquis for anticoagulation. Remains on cefepime and vancomycin, and his follow-up blood cultures from 04/15/2020 are again positive for presumptive MRSA. ID service is following, the source of b acteremia is likely related to hemodialysis catheter in the right subclavian area, fasting surgery has been consulted for removal of the hemodialysis catheter today and insertion of a new hemodialysis catheter in the next 48 hours. Patient has been afebrile, patient had hemodialysis yesterday would removal of 700 mL of fluid. After hemodialysis he did have some lower blood pressures with systolic in the 80s, and in view of relative hypotension his transfer out of ICU was held. On 2020 patient seen in follow-up on selective care unit, his last hemodialysis session was yesterday would removal of 700 mL of fluid. No signs of any acute respiratory distress, patient is on 2 L of oxygen pulse ox is 97%, his been afebrile, vital signs have been stable. His right subclavian permacath has been discontinued, today's labs have been reviewed, no CBC, BMP showed creatinine 5.19, BUN is 70, potassium is 4.1. His liver enzymes were improving on yesterday's labs. He has been afebrile. His last follow-up blood culture from 04/17/2020 showed presumptive MRSA. he continues on cefepime and vancomycin, ID service is following. Progress note dated 04/19/2020. [id number] male with history of staph aureus sepsis. His hemodialysis catheter was removed. There is plans for a another catheter to be placed. He may also have a permanent hemodialysis catheter placed in the near future. He continues on vancomycin. Infectious diseases are following. The patient is a bit more alert today. He is not on any supplemental oxygen. Saturations are in the low 90s. He is always sleeping when we see him. White count is 28.4, hemoglobin 8.6, hematocrit 28.0, and platelet count 285,000. Sodium is 138, potassium 4.4, chlorides 103, CO2 19, anion gap 16, BUN 75, and creatinine 5.85. Blood cultures were positive from the catheter tip on 04/17/2020. The patient has a history of prior cardiac arrest, end-stage renal disease, recurrent falls, CAD, type 2 diabetes, anemia of chronic disease, obesity, sleep apnea syndrome, right second toe cellulitis, abnormal liver enzymes, and mental status changes, which are improving somewhat. Progress note dated 04/20/2020. 59-year-old male, with history of Staphylococcus aureus sepsis. His previous hemodialysis catheter was removed. The patient will eventually need a permanent hemodialysis catheter placed. The patient continues on vancomycin. Infectious diseases is following. Clinically, he is doing a bit better. He is a bit more awake today. He's been weaned down to 2 L nasal cannula. He is apparently scheduled to have dialysis today. No new lab data today. More recent blood cultures from 04/19/2020, are negative. Temperature is 97.9, heart rate 65, respiratory rate 18, but pressure 1:30/72, with a mean of 92, and 2 L saturation is between 97 and 98%. 04/22/2020 I'm seeing the patient for a follow-up. The patient is still lethargic and on and off confused. He is able to some simple conversations. The patient has multiple medical problems and comorbidities. His post cardiac arrest. He has an incisional disease on hemodialysis, coronary artery disease, diabetes mellitus type 2, chronic anemia, and obstructive sleep apnea. He is a quite complicated case of staphylococcal sepsis/pneumonia. The patient is on vancomycin. No evidence of any endocarditis. The patient is afebrile and he is currently hemodynamically stable on room air oxygen. Note that, the patient is on hemodialysis for incisional disease. His hemodialysis catheter was removed due to the bacteremia and sepsis and a new hemodialysis catheter was inserted and subsequently removed on 04/21/2020. The most recent blood cultures from 04/21/2020 are still positive and the patient's catheter was again removed.. Objective - Vital Signs Vital signs: Vital Signs Temp 98 F 04/22/20 04:40 Pulse 62 04/22/20 04:40 Resp 18 04/22/20 04:40 BP 126/81 04/22/20 04:40 Pulse Ox 99 04/22/20 04:40 Intake & Output 04/21/20 04/22/20 04/22/20 18:59 06:59 18:59 Intake Total 727 560 Output Total 50 Balance 727 -50 560 Weight 89.5 kg Intake: IV 50 Invasive Line 5 50 Oral 677 560 Output: Urine 50 Other: Voiding Method Incontinent Urinal # Voids 1 - Exam GENERAL EXAM: Sleepy, but arousable to voice, currently on room air oxygen HEAD: Normocephalic/atraumatic. EYES: Normal reaction of pupils, equal size. Conjunctiva pink, sclera white. NOSE: Clear with pink turbinates. THROAT: No erythema or exudates. NECK: No masses, no JVD, no thyroid enlargement, no adenopathy. CHEST: No chest wall deformity. Symmetrical expansion. Right subclavian has been removed. LUNGS: Equal air entry some rhonchi, but without crackles or wheezes. Breath sounds equal bilaterally. CVS: Regular rate and rhythm, normal S1 and S2, no gallops, soft systolic murmur, loudest at the left midclavicular line fourth to fifth intercostal s pace, no rubs. Heart rate 65 bpm. ABDOMEN: Soft, nontender. No hepatosplenomegaly, normal bowel sounds, no guarding or rigidity. EXTREMITIES: No clubbing, no edema, no cyanosis, 2+ pulses and upper and lower extremities. Left upper arm AV shunt in place, with positive bruit and thrill MUSCULOSKELETAL: Muscle strength and tone normal. SPINE: No scoliosis or deformity SKIN: No rashes. CENTRAL NERVOUS SYSTEM: Patient is lethargic/sleepy, but does arouse. He is appropriate when he is awake. - Labs CBC & Chem 7: 04/22/20 07:10 04/22/20 07:10 Labs: Abnormal Lab Results - Last 24 Hours (Table) 04/21/20 04/21/20 04/21/20 Range/Units 11:32 17:02 20:17 WBC (3.8-10.6) k/uL RBC (4.30-5.90) m/uL Hgb (13.0-17.5) gm/dL Hct (39.0-53.0) % MCHC (31.0-37.0) g/dL RDW (11.5-15.5) % BUN (9-20) mg/dL Creatinine (0.66-1.25) mg/dL POC Glucose (mg/dL) 110 H 187 H 157 H (75-99) mg/dL Calcium (8.4-10.2) mg/dL ALT (4-49) U/L Alkaline Phosphatase (38-126) U/L Total Protein (6.3-8.2) g/dL Albumin (3.5-5.0) g/dL 04/21/20 04/22/20 04/22/20 Range/Units 21:46 07:10 07:10 WBC 22.5 H (3.8-10.6) k/uL RBC 2.83 L (4.30-5.90) m/uL Hgb 7.5 L (13.0-17.5) gm/dL Hct 25.3 L (39.0-53.0) % MCHC 29.8 L (31.0-37.0) g/dL RDW 17.3 H (11.5-15.5) % BUN 37 H (9-20) mg/dL Creatinine 3.91 H (0.66-1.25) mg/dL POC Glucose (mg/dL) 152 H (75-99) mg/dL Calcium 8.1 L (8.4-10.2) mg/dL ALT 107 H (4-49) U/L Alkaline Phosphatase 226 H (38-126) U/L Total Protein 5.3 L (6.3-8.2) g/dL Albumin 2.3 L (3.5-5.0) g/dL Microbiology - Last 24 Hours (Table) 04/21/20 08:08 Blood Culture Gram Stain - Preliminary Blood 04/19/20 16:01 Blood Culture Gram Stain - Final Blood Blood Culture - Final Methicillin resist S. aureus 04/19/20 06:39 Blood Culture Gram Stain - Final Blood Blood Culture - Final Methicillin resist S. aureus 04/21/20 08:08 Blood Culture - Final Blood 04/21/20 15:45 Catheter Tip Culture - Preliminary Catheter Tip 04/20/20 07:34 Blood Culture Gram Stain - Preliminary Blood Blood Culture - Preliminary Presumptive MRSA Assessment and Plan Plan: 1 Acute hypoxemic respiratory failure, secondary to methicillin-resistant staph aureus sepsis, as well as acute diastolic CHF. The patient is currently on room air oxygen. The patient has recovered from his acute hypoxic respiratory failure. 2 sepsis secondary to Methicillin-resistant staph aureus bacteremia, and sepsis, likely secondary to his subclavian dialysis catheter, has been removed. YAYO is negative for regurgitation. Most recent blood culture from 04/13/2020 are still positive for gram-positive cocci, presumed MRSA and the patient remains on vancomycin. The most recent dialysis catheter was inserted in his groin was removed on 04/21/2020 and no immediate plans to put a permacath as long as the patient is still bacteremic. 3 Status post cardiac arrest, with asystole and/or pulseless electrical activity, brief, with 2 minutes of cardiopulmonary resuscitation. 4 Chronic end-stage renal disease, currently on hemodialysis, noncompliant. 5 Recurrent falls. 6 History of coronary artery disease. 7 Diabetes mellitus, type II, with diabetic neuropathy and nephropathy. 8 Anemia of chronic disease. 9 Obstructive sleep apnea syndrome. 10 Morbid obesity. 11 Right second toe cellulitis. ReCovered 12 Congestive hepatopathy, improved. 13 Leukocytosis, secondary to staph sepsis. 14 Encephalopathy, likely secondary to sepsis. 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 On 2 L, his saturation is 97%. He remains on vancomycin for his methicillin-resistant staph aureus bacteremia. His transesophageal echocardiogram did not reveal any vegetations. Unfortunately the patient remains bacteremic. No immediate plans to put the permanent catheter in place. We'll have a discussion with nephrology regarding dialysis access and infectious disease to follow-up on his ongoing bacteremia. Based on the infectious disease evaluation from yesterday, the patient will be kept on the same antibiotic coverage for now which is vancomycin and the vancomycin trough from today was at 19.2. No active pulmonary or critical care issue this point in time.
--- NOTE | 2020-04-22 11:29 | P.PN ---
Subjective Progress Note Date: 04/22/20 HISTORY OF PRESENT ILLNESS 59 years old male patient of Dr. Mckeon with past medical history of end-stage renal disease on hemodialysis Wednesday and Wednesday, coronary artery disease post angioplasty, and stent placement last catheterization was February 09 with stent of the left circumflex and proximal LAD, atrial fibrillation, diabetes, GERD, hyperlipidemia, hypertension. He does have intermittent lesion along the mid LAD and follows Dr. Hinojosa on as outpatient. Patient was last admitted in February 16 with chest pain and unstable angina, comes in this time with change in mental status, and multiple falls at home. Patient is unable to provide any history due to increased drowsiness. History obtained from the chart. It appears patient had a fall in the bathroom as his leg gave out. He denies any dizziness or syncope episode. CT of the head was obtained that showed no acute lesions. Patient missed 2 dialysis appointment, last hemodialysis was 1 week ago. In the ER patient's blood pressure was 202/94 temp of 99 pulse 91 and respiratory rate 19 on assessment of patient's lab patient had a any, hemoglobin 10.7 hematocrit 32.4 sodium 133 chloride 92 bicarb 21 BUN 86 creatinine 7.56 glucose 237. Urinalysis does suggest leukocytosis with positive blood and positive protein. Urine culture was sent. On evaluation today patient is found to be lying in bed. He is unable to provide any history. Patient did Gabapentin, Dilaudid and 1 L of bolus of IV fluids. We will hold pain medication. Decrease gabapentin 100 3 times a day. Patient will be started on levofloxacin renally adjusted to 250 every 48 hours. Ativan reduced to 0.5 mg 3 times a day. Hold off diuretics. Nephrology consulted At 2:30 this afternoon patient became unresponsive as patient was hooked to the dialysis. The A team responded to the patient did mention patient was pulseless. A brief CPR was done for 2 minutes, with return of spontaneous circulation and return of the pulse with no need of epinephrine. Patient's blood pressure was found to be low. Cardiology consult will be placed. Echo will be ordered. Patient was noted to be in atrial fibrillation and was transferred to the ICU on nonrebreather mask. Another attempt was made to start the hemodialysis while patient was arousable and follows all commands he was found to be more lethargic. Patient's blood pressure dropped on hemodialysis and became unresponsive not responding to sternal rub. Was noted to be in A. fib with RVR. Patient was placed on BiPAP intubation was not required. 04/12 patient currently in the ICU. Vitals are stable with temp of 98 pulse 67 and respiratory rate 19 and blood pressure 156/71 oxygen saturation 95% on 40% on BiPAP. Patient has leukocytosis of 18 improved from 20 hemoglobin 9.9, sodium 134 chloride 97 bicarb 19 BUN 104 creatinine 8.15 phosphorus 10.7 and total bilirubin 1.7 AST 2932 ALT 2727 alkaline phosphatase 449. Cardiology evaluated the patient thinks patient's episode of unresponsiveness could be vasovagal from low blood pressure. Continue to monitor patient's blood pressure with possible orthostatics when patient is stable. Metoprolol dose increased to 25 twice a day. Initiated on amiodarone 100 mg daily patient is being dialyzed today with minimal ultrafiltration. We will hold hydralazine and Cozaar for systolic less than 125. Patient currently off pressors. Spoke to patient's at bedside who mentioned patient has been falling for the past few months. He had MRI of the lower back done as outpatient that suggested severe spinal stenosis. Patient was set up for PT as outpatient but has been forgetting to often due to weakness in his legs. He has a outpatient appointment pending with an orthopedic surgery 04/13: Patient still in the ICU , on BiPAP, he still have less responsiveness, quite hypertensive today back on vasopressor. Patient was diagnosed tolerate hemodialysis for long had only 1 hour, still currently in significant encephalopathy status, continue IV antibiotic for now there is a small gang renous spot on the right second toe. 04/14: Patient is off vasopressor, still on BiPAP, still running back and forth between tachycardia and A. fib. No hemodialysis done today. Patient is very confused is taking his lines And all attachment out he required a sitter today. 04/15: Patient is off vasopressor, off BiPAP, he is more awake alert today, he is more hemodynamically stable. He is on hemodialysis and blood pressure is holding well so far should be able to do full cycle of hemodialysis today. Source of infection is still unclear suspect to be dialysis catheter which might be pulled out to place another catheter either in the femoral area or use the fistula graft had in the left forearm. 04/16: Patient evaluated in the ICU. Patient is arousable but easily drifts back to sleep. He had dialysis yesterday, with possible plans for dialysis again today due to elevated BUN/creatinine. Possible source of infection still unclear and suspected to be dialysis catheter. Nephrology plans on repeat blood cultures via dialysis catheter, if positive will discuss discontinuing the IJ pe rmacath. Infectious disease added Cefepime for worsening white count, and continue on Vancomycin. Repeat chest x-ray shows cardiomegaly with left basilar atelectasis. Plans to transfer of the ICU today to select care unit. 04/17: Patient's right IJ permacath dialysis catheter was removed yesterday. Patient's nurse reports that there was pus on the end and this has been cultured. Patient remains in the intensive care unit but has been downgraded to cardiac stepdown unit. Patient has been afebrile, heart rate 57, blood pressure 109/59, pulse ox 100% on 2 L nasal cannula. conveyor monitor has been a sinus rhythm. He does have short bouts of atrial fibrillation most often noted when he drinks cold liquids. Repeat blood work reveals WBC of 32, hemoglobin 9.6, platelet count 285. BUN 47 creatinine 3.63, potassium 4.3. Blood sugars running between 85 and 166. Total bilirubin 1.3, AST 98, ALT 517, alkaline phosphatase 391. Liver function tests are improved from yesterday. Chest x-ray today reveals cardiomegaly. Interstitial density slightly increased. Correlate to exclude developing pulmonary vascular congestion. Left base remains under penetrated area and some underlying atelectasis or infiltrate or effusion possible. 04/18: Patient is seen today on the cardiac stepdown unit. Patient is awake and answering questions but speech is slow and slurred. Reviewed plan of care with him and he verbalizes understanding. Patient is afebrile, heart rate 66, blood pressure 123/55, pulse ox 99% on 2 L nasal cannula. Catheter tip culture is showing presumptive MRSA. Repeat blood cultures have been ordered to see if bacteremia is clearing. Patient is currently on vancomycin pharmacy dosing and cefepime. YAYO performed by Dr. Bowie reveals no evidence of infective endocardit is. No evidence of intracardiac valves vegetation or abscess. Aortic sclerosis, trileaflet mildly thickened with trace aortic insufficiency. Thickened anterior posterior mitral leaflets with moderate mitral regurgitation. Moderate tricuspid regurgitation. Moderate pulmonic insufficiency. Mild biatrial enlargement. Intact anterior atrial septum and intact left atrial appendage without thrombus. Low normal LV with EF of 50%. No pericardial effusion. 04/19: Patient had worsening of his mental status during the night and remains confused worse than yesterday. Leandra is on hold this morning for temporary line placement for dialysis. Dr. Nguyen is planning on hemodialysis today and tomorrow. Patient is only able to state that he feels miserable and terrible but nothing specific. He has been afebrile, heart rate 74, blood pressure 161/75, pulse ox 91% on room air. WBC is 28.4, hemoglobin 8.6, platelet count 285. CO2 19, BUN 75 and creatinine 5.85. Blood sugars running between 205 and 235. Vancomycin level XXI.5. Repeat blood cultures obtained on April 18 are also positive. CAT scan of the abdomen and pelvis with contrast revealed moderate anasarca. Small bilateral pleural effusions with adjacent atelectasis superimposed infiltrates not excluded. Mild urinary bladder wall thickening, correlate for cystitis. No significant contrast excretion into the renal colle ction system on the delayed images. No significant intra-abdominal pelvic abnormality. Tetracycline has recommended continuing vancomycin. 04/20: Patient had a temporary dialysis catheter placed in the right groin and underwent hemodialysis treatment yesterday but due to patient's restlessness it was not a good treatment. His mental status however is significantly improved today. We will plan to order Dilaudid 1 mg before dialysis treatment and if necessary Valium 5 mg can be given. Patient's nurses been updated. Dr. Wills is planning to remove dialysis catheter following treatment today. Blood cultures remain positive including those drawn on April 19. Repeat blood cultures ordered for tomorrow. Dr. Presley has been updated. He has been afebrile, heart rate 65, blood pressure 134/72, pulse ox 97% on 2 L nasal cannula. Blood sugars running between 90-162. Vancomycin level XVIII. 04/21: She underwent dialysis yesterday with removal of a half a liter of fluid as was planned. Patient is scheduled for another treatment today. Patient states that she is feeling better. Mental status is improved from 2 days ago. Plan is to remove dialysis catheter after today's treatment. His blood cultures that were obtained yesterday are positive. Patient has been afebrile, heart rate 65, blood pressure 118/66, pulse ox 94% on 2 L nasal cannula. Creatinine 4.19. Blood sugars are running between 99 and 146. Patient did well with Dilaudid given 1 mg prior to dialysis treatment. We will plan to repeat this today. 04/22: Patient had dialysis yesterday and dialysis catheter was subsequently removed. Repeat blood cultures obtained on April 21 are also positive. Patient denies any new complaints today. No chest pain, shortness of breath. Patient continues to have some confusion. Losartan has been discontinued by nephrology. He has been afebrile, heart rate 62, blood pressure 126/81, pulse ox 99% on 3 L nasal cannula. Repeat blood work reveals W BC at 22.5, hemoglobin 7.5, platelet count 215. Electrolytes normal, BUN 37 creatinine 3.9. Blood sugars running between 86 and 157. Total bilirubin 0.7, AST 23, ALT 107, alkaline phosphatase 226. Vancomycin level XIX.2. REVIEW OF SYSTEMS Constitutional: No fever, no chills, no night sweats. No weight change. Reported weakness, reported fatigue reported lethargy. Reported daytime sleepiness. EENT: No headache. No blurred vision or double vision, no loss of vision. No loss of Hearing, no ringing in the ears, no dizziness. No nasal drainage or congestion. No epistaxis. No sore throat. Lungs: No shortness of breath, cough, no sputum production. No wheezing. Cardiovascular: No chest pain, no lower extremity edema. No palpitations. No paroxysmal nocturnal dyspnea. No orthopnea. No lightheadedness or dizziness. No syncopal episodes. Abdominal: No abdominal pain. No nausea, vomiting. No diarrhea. No constipation. No bloody or tarry stools. No loss of appetite. Genitourinary: No dysuria, increased frequency, urgency. No urinary retention. Musculoskeletal: No myalgias. No muscle weakness, no gait dysfunction, no frequent falls. No back pain. No neck pain. Integumentary: No wounds, no lesions. No rash or pruritus. No unusual bruising. No change in hair or nails. Neurologic: No aphasia. No facial droop. Reported confusion. No head injury. No headache. No paralysis. No paresthesia. Psychiatric: No depression. No anxiety. No mood swings. Endocrine: Noted abnormal blood sugars. PHYSICAL EXAMINATION Gen: This is a 59-year-old male patient seen on the cardiac stepdown unit. He is resting in bed and appears to be in no acute respiratory distress. HEENT: Head is atraumatic, normocephalic. Pupils equal, round. Sclerae is anicteric. NECK: Supple. No JVD. No lymphadenopathy. No thyromegaly. LUNGS: Clear to auscultation. No wheezes or rhonchi. No intercostal retractions. HEART: Regular rate and rhythm. 2/6 systolic murmur. ABDOMEN: Soft. Bowel sounds are present. No masses. No tenderness. EXTREMITIES: No pedal edema. No calf tenderness. NEUROLOGICAL: Patient is oriented to person and place. He is able to follow commands. ASSESSMENT AND PLAN 1. Sepsis and MRSA bacteremia secondary to dialysis catheter. Permacath has been removed as of yesterday and culture of tip done. Patient is followed by Dr. Presley and continued on vancomycin. Temporary catheter was removed yesterday, planned for permanent catheter placement once blood cultures are clear. Blood cultures remain positive from yesterday. 2. Metabolic encephalopathy secondary to sepsis, uremia, pain medication and benzodiazepines improving. Lorazepam has been discontinued. 3. End-stage renal disease on hemodialysis. Temporary catheter to be placed for dialysis today and tomorrow. Permanent catheter will be placed once bacteremia is cleared. Consult with nephrology and vascular surgery appreciated. Continue PhosLo 1334 mg 3 times daily. Dilaudid 1 mg IV 1 to be given prior to dialysis treatment today and Valium available if needed. 4. Fall secondary to degenerative disc disease and spinal stenosis. MRI as an outpatient revealed severe spinal stenosis. Patient has outpatient orthopedic evaluation pending. PT and OT following. 5. Acute syncopal episode most likely vasovagal, patient had brief CPR. Cardiology consult appreciated. 6. History of coronary artery disease with previous PTCA to LAD and circumflex. Lexiscan was negative on previous admission. Continue Plavix 75 mg daily, Imdur 30 mg daily, Lopressor 25 mg in the morning and evening. 7. Paroxysmal atrial fibrillation. Continue eliquis 2.5 mg twice daily and metoprolol, amiodarone at 200 mg daily. (Eliquis on hold) 8. Ischemic cardiomyopathy. Continue as in #60. 9. Diabetes mellitus type 2, insulin requiring. Continue Levemir 20 units daily, NovoLog scale before meals and at bedtime, 10. Diabetic neuropathy. Continue gabapentin 100 mg 3 times daily. 11. Hypertension. Continue hydralazine 25 mg 3 times daily, losartan has been discontinued by nephrology. 12. Anemia of chronic disease. Continue to monitor. 13. GI prophylaxis. Continue Protonix. 14. DVT prophylaxis. Continue eliquis. DISCHARGE PLAN [facility] most likely late this week. Impression and plan of care have been directed as dictated by the signing physician. Katelyn Wesley nurse practitioner acting as scribe for signing physician. Objective - Vital Signs Vital signs: Vital Signs Temp 98 F 04/22/20 04:40 Pulse 62 04/22/20 04:40 Resp 18 04/22/20 04:40 BP 126/81 04/22/20 04:40 Pulse Ox 99 04/22/20 04:40 Intake & Output 04/21/20 04/22/20 04/22/20 18:59 06:59 18:59 Intake Total 727 560 Output Total 50 Balance 727 -50 560 Weight 89.5 kg Intake: IV 50 Invasive Line 5 50 Oral 677 560 Output: Urine 50 Other: Voiding Method Incontinent Urinal # Voids 1 - Labs CBC & Chem 7: 04/22/20 07:10 04/22/20 07:10 Labs: Abnormal Lab Results - Last 24 Hours (Table) 04/21/20 04/21/20 04/21/20 Range/Units 11:32 17:02 20:17 WBC (3.8-10.6) k/uL RBC (4.30-5.90) m/uL Hgb (13.0-17.5) gm/dL Hct (39.0-53.0) % MCHC (31.0-37.0) g/dL RDW (11.5-15.5) % BUN (9-20) mg/dL Creatinine (0.66-1.25) mg/dL POC Glucose (mg/dL) 110 H 187 H 157 H (75-99) mg/dL Calcium (8.4-10.2) mg/dL ALT (4-49) U/L Alkaline Phosphatase (38-126) U/L Total Protein (6.3-8.2) g/dL Albumin (3.5-5.0) g/dL 04/21/20 04/22/20 04/22/20 Range/Units 21:46 07:10 07:10 WBC 22.5 H (3.8-10.6) k/uL RBC 2.83 L (4.30-5.90) m/uL Hgb 7.5 L (13.0-17.5) gm/dL Hct 25.3 L (39.0-53.0) % MCHC 29.8 L (31.0-37.0) g/dL RDW 17.3 H (11.5-15.5) % BUN 37 H (9-20) mg/dL Creatinine 3.91 H (0.66-1.25) mg/dL POC Glucose (mg/dL) 152 H (75-99) mg/dL Calcium 8.1 L (8.4-10.2) mg/dL ALT 107 H (4-49) U/L Alkaline Phosphatase 226 H (38-126) U/L Total Protein 5.3 L (6.3-8.2) g/dL Albumin 2.3 L (3.5-5.0) g/dL Microbiology - Last 24 Hours (Table) 04/19/20 16:01 Blood Culture Gram Stain - Final Blood Blood Culture - Final Methicillin resist S. aureus 04/19/20 06:39 Blood Culture Gram Stain - Final Blood Blood Culture - Final Methicillin resist S. aureus 04/21/20 08:08 Blood Culture Gram Stain - Preliminary Blood 04/21/20 08:08 Blood Culture - Final Blood 04/21/20 15:45 Catheter Tip Culture - Preliminary Catheter Tip 04/20/20 07:34 Blood Culture Gram Stain - Preliminary Blood Blood Culture - Preliminary Presumptive MRSA
[2020-04-22] MEDS ORDERED: VANCOMYCIN 1,500 MG in SODIUM CHLORIDE 0.9% 250 ML IVPB ONE (12:00)
[2020-04-22 12:10] LABS: Glucose,Whole Blood 151 mg/dL (75-99)
[2020-04-22 16:52] LABS: Glucose,Whole Blood 191 mg/dL (75-99)
[2020-04-22 19:52] LABS: Glucose,Whole Blood 184 mg/dL (75-99)
[2020-04-22 21:28] LABS: Glucose,Whole Blood 200 mg/dL (75-99)
--- NOTE | 2020-04-22 23:25 | PN ---
PROGRESS NOTE DATE OF SERVICE: 04/22/2020 REASON FOR FOLLOWUP: MRSA bacteremia secondary to PermCath infection. INTERVAL HISTORY: The patient is currently afebrile. The patient is breathing comfortably. Denies having any chest pain or shortness of breath. Occasional cough. No abdominal pain or diarrhea. PHYSICAL EXAMINATION: Blood pressure 124/52 with a pulse of 63, temperature 98. He is 99% on 3 L nasal cannula. General description is a middle-aged male lying in bed in no distress. RESPIRATORY SYSTEM: Unlabored breathing with decreased breath sounds at the base. No wheeze. HEART: S1, S2. Regular rate and rhythm. ABDOMEN: Soft. No tenderness. LABS: Hemoglobin 7.5, white count 2.5, BUN of 37, creatinine 3.91. DIAGNOSTIC IMPRESSION AND PLAN: Patient with methicillin-resistant Staphylococcus aeruginosa bacteremia secondary to PermCath infection, which has been discontinued. They needed a temporary catheter over the weekend for dialysis. That has been discontinued. The patient needs daily blood draws to document clearance of his bacteremia. He is covered with vancomycin. That will be continued. Continue with supportive care. MMODL / IJN: [id number] /
[2020-04-23] MEDS: HYDROcodone/APAP 10-325MG 1 EACH TAB PO PRN ×2 (01:52→13:59)
[2020-04-23 06:00] LABS: Glucose,Whole Blood 263 mg/dL (75-99)
[2020-04-23] MEDS: INSULIN ASPART (NovoLOG) 100 UNIT/ML VIAL SQ SCH ×6 (06:36→21:18)
[2020-04-23] MEDS: hydrOXYzine pamoate 25 MG CAP PO PRN (06:37)
[2020-04-23 07:58] LABS: Calcium 8.3 mg/dL (8.4-10.2); Potassium 4.9 mmol/L (3.5-5.1)
[2020-04-23] MEDS: METOPROLOL TARTRATE 25 MG TAB PO SCH ×2 (09:03→21:18)
[2020-04-23] MEDS: PANTOPRAZOLE 40 MG TABLET PO SCH (09:03)
[2020-04-23] MEDS: AMIODARONE 200 MG TAB PO SCH (09:04)
[2020-04-23] MEDS: allopurinoL 100 MG TAB PO SCH (09:04)
[2020-04-23] MEDS: INSULIN DETEMIR (LEVEMIR) 100 UNIT/ML SYR SQ SCH (09:04)
[2020-04-23] MEDS: GABAPENTIN 100 MG CAP PO SCH ×3 (09:04→21:18)
[2020-04-23] MEDS: CLOPIDOGREL 75 MG TAB PO SCH (09:04)
[2020-04-23] MEDS: ISOSORBIDE MONONITRATE ER 30 MG TAB.ER.24H PO SCH (09:04)
[2020-04-23] MEDS: hydrALAZINE HCL 25 MG TAB PO SCH ×3 (09:04→21:18)
--- NOTE | 2020-04-23 10:47 | P.PN ---
Subjective Progress Note Date: 04/23/20 HISTORY OF PRESENT ILLNESS 59 years old male patient of Dr. Mckeon with past medical history of end-stage renal disease on hemodialysis Wednesday and Wednesday, coronary artery disease post angioplasty, and stent placement last catheterization was February 09 with stent of the left circumflex and proximal LAD, atrial fibrillation, diabetes, GERD, hyperlipidemia, hypertension. He does have intermittent lesion along the mid LAD and follows Dr. Hinojosa on as outpatient. Patient was last admitted in February 16 with chest pain and unstable angina, comes in this time with change in mental status, and multiple falls at home. Patient is unable to provide any history due to increased drowsiness. History obtained from the chart. It appears patient had a fall in the bathroom as his leg gave out. He denies any dizziness or syncope episode. CT of the head was obtained that showed no acute lesions. Patient missed 2 dialysis appointment, last hemodialysis was 1 week ago. In the ER patient's blood pressure was 202/94 temp of 99 pulse 91 and respiratory rate 19 on assessment of patient's lab patient had a any, hemoglobin 10.7 hematocrit 32.4 sodium 133 chloride 92 bicarb 21 BUN 86 creatinine 7.56 glucose 237. Urinalysis does suggest leukocytosis with positive blood and positive protein. Urine culture was sent. On evaluation today patient is found to be lying in bed. He is unable to provide any history. Patient did Gabapentin, Dilaudid and 1 L of bolus of IV fluids. We will hold pain medication. Decrease gabapentin 100 3 times a day. Patient will be started on levofloxacin renally adjusted to 250 every 48 hours. Ativan reduced to 0.5 mg 3 times a day. Hold off diuretics. Nephrology consulted At 2:30 this afternoon patient became unresponsive as patient was hooked to the dialysis. The A team responded to the patient did mention patient was pulseless. A brief CPR was done for 2 minutes, with return of spontaneous circulation and return of the pulse with no need of epinephrine. Patient's blood pressure was found to be low. Cardiology consult will be placed. Echo will be ordered. Patient was noted to be in atrial fibrillation and was transferred to the ICU on nonrebreather mask. Another attempt was made to start the hemodialysis while patient was arousable and follows all commands he was found to be more lethargic. Patient's blood pressure dropped on hemodialysis and became unresponsive not responding to sternal rub. Was noted to be in A. fib with RVR. Patient was placed on BiPAP intubation was not required. 04/12 patient currently in the ICU. Vitals are stable with temp of 98 pulse 67 and respiratory rate 19 and blood pressure 156/71 oxygen saturation 95% on 40% on BiPAP. Patient has leukocytosis of 18 improved from 20 hemoglobin 9.9, sodium 134 chloride 97 bicarb 19 BUN 104 creatinine 8.15 phosphorus 10.7 and total bilirubin 1.7 AST 2932 ALT 2727 alkaline phosphatase 449. Cardiology evaluated the patient thinks patient's episode of unresponsiveness could be vasovagal from low blood pressure. Continue to monitor patient's blood pressure with possible orthostatics when patient is stable. Metoprolol dose increased to 25 twice a day. Initiated on amiodarone 100 mg daily patient is being dialyzed today with minimal ultrafiltration. We will hold hydralazine and Cozaar for systolic less than 125. Patient currently off pressors. Spoke to patient's at bedside who mentioned patient has been falling for the past few months. He had MRI of the lower back done as outpatient that suggested severe spinal stenosis. Patient was set up for PT as outpatient but has been forgetting to often due to weakness in his legs. He has a outpatient appointment pending with an orthopedic surgery 04/13: Patient still in the ICU , on BiPAP, he still have less responsiveness, quite hypertensive today back on vasopressor. Patient was diagnosed tolerate hemodialysis for long had only 1 hour, still currently in significant encephalopathy status, continue IV antibiotic for now there is a small gang renous spot on the right second toe. 04/14: Patient is off vasopressor, still on BiPAP, still running back and forth between tachycardia and A. fib. No hemodialysis done today. Patient is very confused is taking his lines And all attachment out he required a sitter today. 04/15: Patient is off vasopressor, off BiPAP, he is more awake alert today, he is more hemodynamically stable. He is on hemodialysis and blood pressure is holding well so far should be able to do full cycle of hemodialysis today. Source of infection is still unclear suspect to be dialysis catheter which might be pulled out to place another catheter either in the femoral area or use the fistula graft had in the left forearm. 04/16: Patient evaluated in the ICU. Patient is arousable but easily drifts back to sleep. He had dialysis yesterday, with possible plans for dialysis again today due to elevated BUN/creatinine. Possible source of infection still unclear and suspected to be dialysis catheter. Nephrology plans on repeat blood cultures via dialysis catheter, if positive will discuss discontinuing the IJ pe rmacath. Infectious disease added Cefepime for worsening white count, and continue on Vancomycin. Repeat chest x-ray shows cardiomegaly with left basilar atelectasis. Plans to transfer of the ICU today to select care unit. 04/17: Patient's right IJ permacath dialysis catheter was removed yesterday. Patient's nurse reports that there was pus on the end and this has been cultured. Patient remains in the intensive care unit but has been downgraded to cardiac stepdown unit. Patient has been afebrile, heart rate 57, blood pressure 109/59, pulse ox 100% on 2 L nasal cannula. lunchroom monitor has been a sinus rhythm. He does have short bouts of atrial fibrillation most often noted when he drinks cold liquids. Repeat blood work reveals WBC of 32, hemoglobin 9.6, platelet count 285. BUN 47 creatinine 3.63, potassium 4.3. Blood sugars running between 85 and 166. Total bilirubin 1.3, AST 98, ALT 517, alkaline phosphatase 391. Liver function tests are improved from yesterday. Chest x-ray today reveals cardiomegaly. Interstitial density slightly increased. Correlate to exclude developing pulmonary vascular congestion. Left base remains under penetrated area and some underlying atelectasis or infiltrate or effusion possible. 04/18: Patient is seen today on the cardiac stepdown unit. Patient is awake and answering questions but speech is slow and slurred. Reviewed plan of care with him and he verbalizes understanding. Patient is afebrile, heart rate 66, blood pressure 123/55, pulse ox 99% on 2 L nasal cannula. Catheter tip culture is showing presumptive MRSA. Repeat blood cultures have been ordered to see if bacteremia is clearing. Patient is currently on vancomycin pharmacy dosing and cefepime. YAYO performed by Dr. Bowie reveals no evidence of infective endocardit is. No evidence of intracardiac valves vegetation or abscess. Aortic sclerosis, trileaflet mildly thickened with trace aortic insufficiency. Thickened anterior posterior mitral leaflets with moderate mitral regurgitation. Moderate tricuspid regurgitation. Moderate pulmonic insufficiency. Mild biatrial enlargement. Intact anterior atrial septum and intact left atrial appendage without thrombus. Low normal LV with EF of 50%. No pericardial effusion. 04/19: Patient had worsening of his mental status during the night and remains confused worse than yesterday. Leandra is on hold this morning for temporary line placement for dialysis. Dr. Nguyen is planning on hemodialysis today and tomorrow. Patient is only able to state that he feels miserable and terrible but nothing specific. He has been afebrile, heart rate 74, blood pressure 161/75, pulse ox 91% on room air. WBC is 28.4, hemoglobin 8.6, platelet count 285. CO2 19, BUN 75 and creatinine 5.85. Blood sugars running between 205 and 235. Vancomycin level XXI.5. Repeat blood cultures obtained on April 18 are also positive. CAT scan of the abdomen and pelvis with contrast revealed moderate anasarca. Small bilateral pleural effusions with adjacent atelectasis superimposed infiltrates not excluded. Mild urinary bladder wall thickening, correlate for cystitis. No significant contrast excretion into the renal colle ction system on the delayed images. No significant intra-abdominal pelvic abnormality. Tetracycline has recommended continuing vancomycin. 04/20: Patient had a temporary dialysis catheter placed in the right groin and underwent hemodialysis treatment yesterday but due to patient's restlessness it was not a good treatment. His mental status however is significantly improved today. We will plan to order Dilaudid 1 mg before dialysis treatment and if necessary Valium 5 mg can be given. Patient's nurses been updated. Dr. Wills is planning to remove dialysis catheter following treatment today. Blood cultures remain positive including those drawn on April 19. Repeat blood cultures ordered for tomorrow. Dr. Presley has been updated. He has been afebrile, heart rate 65, blood pressure 134/72, pulse ox 97% on 2 L nasal cannula. Blood sugars running between 90-162. Vancomycin level XVIII. 04/21: She underwent dialysis yesterday with removal of a half a liter of fluid as was planned. Patient is scheduled for another treatment today. Patient states that she is feeling better. Mental status is improved from 2 days ago. Plan is to remove dialysis catheter after today's treatment. His blood cultures that were obtained yesterday are positive. Patient has been afebrile, heart rate 65, blood pressure 118/66, pulse ox 94% on 2 L nasal cannula. Creatinine 4.19. Blood sugars are running between 99 and 146. Patient did well with Dilaudid given 1 mg prior to dialysis treatment. We will plan to repeat this today. 04/22: Patient had dialysis yesterday and dialysis catheter was subsequently removed. Repeat blood cultures obtained on April 21 are also positive. Patient denies any new complaints today. No chest pain, shortness of breath. Patient continues to have some confusion. Losartan has been discontinued by nephrology. He has been afebrile, heart rate 62, blood pressure 126/81, pulse ox 99% on 3 L nasal cannula. Repeat blood work reveals W BC at 22.5, hemoglobin 7.5, platelet count 215. Electrolytes normal, BUN 37 creatinine 3.9. Blood sugars running between 86 and 157. Total bilirubin 0.7, AST 23, ALT 107, alkaline phosphatase 226. Vancomycin level XIX.2. 04/23: Patient continues to be confused more so than yesterday. That blood sugars have been elevated later in the afternoon and evening and scheduled NovoLog added to his regime. Repeat blood work reveals sodium of 135, potassium 4.9, chloride 101, CO2 24, BUN 51 creatinine 5. Blood sugars are running between 184 and 263. Repeat blood culture has been obtained today and is pending. REVIEW OF SYSTEMS Constitutional: No fever, no chills, no night sweats. No weight change. Reported weakness, reported fatigue reported lethargy. Reported daytime sleepiness. EENT: No headache. No blurred vision or double vision, no loss of vision. No loss of Hearing, no ringing in the ears, no dizziness. No nasal drainage or congestion. No epistaxis. No sore throat. Lungs: No shortness of breath, cough, no sputum production. No wheezing. Cardiovascular: No chest pain, no lower extremity edema. No palpitations. No paroxysmal nocturnal dyspnea. No orthopnea. No lightheadedness or dizziness. No syncopal episodes. Abdominal: No abdominal pain. No nausea, vomiting. No diarrhea. No constipation. No bloody or tarry stools. No loss of appetite. Genitourinary: No dysuria, increased frequency, urgency. No urinary retention. Musculoskeletal: No myalgias. No muscle weakness, no gait dysfunction, no frequent falls. No back pain. No neck pain. Integumentary: No wounds, no lesions. No rash or pruritus. No unusual bruising. No change in hair or nails. Neurologic: No aphasia. No facial droop. Reported confusion. No head injury. No headache. No paralysis. No paresthesia. Psychiatric: No depression. No anxiety. Endocrine: Noted abnormal blood sugars. PHYSICAL EXAMINATION Gen: This is a 59-year-old male patient seen on the cardiac stepdown unit. He is resting in bed and appears to be in no acute respiratory distress. HEENT: Head is atraumatic, normocephalic. Pupils equal, round. Sclerae is anicteric. NECK: Supple. No JVD. No lymphadenopathy. No thyromegaly. LUNGS: Clear to auscultation. No wheezes or rhonchi. No intercostal retractions. HEART: Regular rate and rhythm. 2/6 systolic murmur. ABDOMEN: Soft. Bowel sounds are present. No masses. No tenderness. EXTREMITIES: No pedal edema. No calf tenderness. NEUROLOGICAL: Patient is oriented to person and place. He is able to follow commands. ASSESSMENT AND PLAN 1. Sepsis and MRSA bacteremia secondary to dialysis catheter. Permacath has been removed as of yesterday and culture of tip done. Patient is followed by Dr. Presley and continued on vancomycin. Temporary catheter was removed yesterday, planned for permanent catheter placement once blood cultures are clear. Blood cultures remain positive from 04/21. 2. Metabolic encephalopathy secondary to sepsis, uremia, pain medication and benzodiazepines improving. Lorazepam has been discontinued. 3. End-stage renal disease on hemodialysis. Permanent catheter will be placed once bacteremia is cleared. Consult with nephrology and vascular surgery appreciated. Continue PhosLo 1334 mg 3 times daily. 4. Fall secondary to degenerative disc disease and spinal stenosis. MRI as an outpatient revealed severe spinal stenosis. Patient has outpatient orthopedic e valuation pending. PT and OT following. 5. Acute syncopal episode most likely vasovagal, patient had brief CPR. Cardiology consult appreciated. 6. History of coronary artery disease with previous PTCA to LAD and circumflex. Lexiscan was negative on previous admission. Continue Plavix 75 mg daily, Imdur 30 mg daily, Lopressor 25 mg in the morning and evening. 7. Paroxysmal atrial fibrillation. Continue eliquis 2.5 mg twice daily and metoprolol, amiodarone at 200 mg daily. (Eliquis on hold) 8. Ischemic cardiomyopathy. Continue as in #60. 9. Diabetes mellitus type 2, insulin requiring, uncontrolled with hyperglycemia. Continue Levemir 20 units daily, add NovoLog scale 3 units with meals and continue NovoLog scale before meals and at bedtime, 10. Diabetic neuropathy. Continue gabapentin 100 mg 3 times daily. 11. Hypertension. Continue hydralazine 25 mg 3 times daily, losartan has been discontinued by nephrology. 12. Anemia of chronic disease. Continue to monitor. 13. GI prophylaxis. Continue Protonix. 14. DVT prophylaxis. Continue eliquis. DISCHARGE PLAN [facility]. Impression and plan of care have been directed as dictated by the signing physician. Katelyn Wesley nurse practitioner acting as scribe for signing physician. Objective - Vital Signs Vital signs: Vital Signs Temp 97.3 F L 04/23/20 03:05 Pulse 62 04/23/20 03:05 Resp 18 04/23/20 03:05 BP 132/58 04/23/20 03:05 Pulse Ox 100 04/23/20 03:05 Intake & Output 04/22/20 04/23/20 04/23/20 18:59 06:59 18:59 Intake Total 1290 240 Balance 1290 240 Weight 89.5 kg 67.5 kg Intake: Intake, IV Titration 250 Amount Vancomycin 1,500 mg In 250 Sodium Chloride 0.9% 250 ml @ 125 mls/hr IVPB ONCE ONE Rx#:[id number] Oral 1040 240 Other: Voiding Method Urinal Urinal # Voids 2 # Bowel Movements 0 - Labs CBC & Chem 7: 04/22/20 07:10 04/23/20 07:05 Labs: Abnormal Lab Results - Last 24 Hours (Table) 04/22/20 04/22/20 04/22/20 Range/Units 12:08 16:48 19:51 Sodium (137-145) mmol/L BUN (9-20) mg/dL Creatinine (0.66-1.25) mg/dL Glucose (74-99) mg/dL POC Glucose (mg/dL) 151 H 191 H 184 H (75-99) mg/dL Calcium (8.4-10.2) mg/dL 04/22/20 04/23/20 04/23/20 Range/Units 21:27 05:59 07:05 Sodium 135 L (137-145) mmol/L BUN 51 H (9-20) mg/dL Creatinine 5.00 H (0.66-1.25) mg/dL Glucose 230 H (74-99) mg/dL POC Glucose (mg/dL) 200 H 263 H (75-99) mg/dL Calcium 8.3 L (8.4-10.2) mg/dL Microbiology - Last 24 Hours (Table) 04/21/20 08:08 Blood Culture Gram Stain - Preliminary Blood Blood Culture - Preliminary Presumptive MRSA 04/20/20 07:34 Blood Culture Gram Stain - Final Blood Blood Culture - Final Methicillin resist S. aureus 04/19/20 16:01 Blood Culture Gram Stain - Final Blood Blood Culture - Final Methicillin resist S. aureus 04/19/20 06:39 Blood Culture Gram Stain - Final Blood Blood Culture - Final Methicillin resist S. aureus
--- NOTE | 2020-04-23 10:55 | P.PN ---
Subjective Patient is seen in follow-up for end-stage renal disease. He is maintained on hemodialysis on Wednesday schedule. He is being treated for MRSA bacteremia. Permacath was removed on April 17. Groin catheter was placed April 19 and and removed April 21. Remains confused. No active complaints. Blood pressure stable. No changes overnight. Vital signs are stable. General: The patient appeared well nourished and normally developed. HEENT: Head exam is unremarkable. Neck is without jugular venous distension. LUNGS: Breath sounds decreased. HEART: Rate and Rhythm are regular. ABDOMEN: Soft, nontender. EXTREMITITES: No edema. Objective - Vital Signs Vital signs: Vital Signs Temp 97.3 F L 04/23/20 03:05 Pulse 63 04/23/20 08:00 Resp 18 04/23/20 08:00 BP 141/75 04/23/20 08:00 Pulse Ox 96 04/23/20 08:00 Intake & Output 04/22/20 04/23/20 04/23/20 18:59 06:59 18:59 Intake Total 1290 240 Balance 1290 240 Weight 89.5 kg 67.5 kg Intake: Intake, IV Titration 250 Amount Vancomycin 1,500 mg In 250 Sodium Chloride 0.9% 250 ml @ 125 mls/hr IVPB ONCE ONE Rx#:[id number] Oral 1040 240 Other: Voiding Method Urinal Urinal Urinal # Voids 2 # Bowel Movements 0 - Labs CBC & Chem 7: 04/22/20 07:10 04/23/20 07:05 Labs: Abnormal Lab Results - Last 24 Hours (Table) 04/22/20 04/22/20 04/22/20 Range/Units 12:08 16:48 19:51 Sodium (137-145) mmol/L BUN (9-20) mg/dL Creatinine (0.66-1.25) mg/dL Glucose (74-99) mg/dL POC Glucose (mg/dL) 151 H 191 H 184 H (75-99) mg/dL Calcium (8.4-10.2) mg/dL 04/22/20 04/23/20 04/23/20 Range/Units 21:27 05:59 07:05 Sodium 135 L (137-145) mmol/L BUN 51 H (9-20) mg/dL Creatinine 5.00 H (0.66-1.25) mg/dL Glucose 230 H (74-99) mg/dL POC Glucose (mg/dL) 200 H 263 H (75-99) mg/dL Calcium 8.3 L (8.4-10.2) mg/dL Microbiology - Last 24 Hours (Table) 04/22/20 07:10 Blood Culture - Final Blood 04/21/20 08:08 Blood Culture Gram Stain - Preliminary Blood Blood Culture - Preliminary Presumptive MRSA 04/20/20 07:34 Blood Culture Gram Stain - Final Blood Blood Culture - Final Methicillin resist S. aureus 04/19/20 16:01 Blood Culture Gram Stain - Final Blood Blood Culture - Final Methicillin resist S. aureus 04/19/20 06:39 Blood Culture Gram Stain - Final Blood Blood Culture - Final Methicillin resist S. aureus Assessment and Plan Plan: Assessment: 1. End-stage renal disease maintained on hemodialysis on Wednesday schedule. 2. MRSA bacteremia secondary to permacath infection status post removal on . 3. Chronic kidney disease mineral bone disease maintained on PhosLo. 4. Hypertension with chronic kidney disease. Controlled. 5. Diabetes mellitus. 6. A. fib maintained on amiodarone and Lopressor. 7. Anemia of chronic kidney disease maintained on Aranesp. Plan: Continue to assess daily for need for dialysis. Patient will need a permacath once cleared by ID. Monitor vancomycin levels. Target level near 15. Hold Cozaar for now. Repeat electrolytes in the morning.
--- NOTE | 2020-04-23 10:59 | P.PN ---
Subjective Progress Note Date: 04/23/20 On 04/16/2020 patient seen in follow-up in intensive care unit, he is slightly more arousable on today's exam, he is given some simple answers, he is oriented to person and place, disoriented to time. Drifts back to sleep if left unstimulated. Appears to be in no acute distress although he does admit to being short of breath at times. Seems to be breathing comfortably currently, he is on 2 L of oxygen with pulse ox of 99%, he had hemodialysis yesterday would removal of 1 L of fluid. His been afebrile. His follow-up blood cultures from 04/15/2020 continue to show gram-positive cocci in groups. Patient continues on vancomycin and cefepime for antibiotic coverage, ID service is following, parker andrew has been having intermittent runs of A. fib with RVR, and spontaneously converts back to sinus. He is in sinus mechanism right now. Cardiology is following, patient is off the Cardizem infusion, he is on oral amiodarone, and he is on Eliquis for anticoagulation. On 04/17/2000 patient seen in follow-up in the intensive care unit, he is currently on 3 L of oxygen, did not require BiPAP support, pulse ox is 100% on 3 L, he is breathing comfortably, he is lethargic, but arousable, he wakes up and answers simple questions, denies any chest discomfort, is currently in sinus mechanism on the monitor, his had intermittent self-limiting bouts of atrial fibrillation, he is on oral amiodarone and Eliquis for anticoagulation. Remains on cefepime and vancomycin, and his follow-up blood cultures from 04/15/2020 are again positive for presumptive MRSA. ID service is following, the source of bacteremia is likely related to hemodialysis catheter in the right subclavian area, fasting surgery has been consulted for removal of the hemodialysis catheter today and insertion of a new hemodialysis catheter in the next 48 hours. Patient has been afebrile, patient had hemodialysis yesterday would removal of 700 mL of fluid. After hemodialysis he did have some lower blood pressures with systolic in the 80s, and in view of relative hypotension his transfer out of ICU was held. On 2020 patient seen in follow-up on selective care unit, his last hemodialysis session was yesterday would removal of 700 mL of fluid. No signs of any acute respiratory distress, patient is on 2 L of oxygen pulse ox is 97%, his been afebrile, vital signs have been stable. His right subclavian permacath has been discontinued, today's labs have been reviewed, no CBC, BMP showed creatinine 5.19, BUN is 70, potassium is 4.1. His liver enzymes were improving on yesterday's labs. He has been afebrile. His last follow-up blood culture from 04/17/2020 showed presumptive MRSA. he continues on cefepime and vancomycin, ID service is following. Progress note dated 04/19/2020. [id number] male with history of staph aureus sepsis. His hemodialysis catheter was removed. There is plans for a another catheter to be placed. He may also have a permanent hemodialysis catheter placed in the near future. He continues on vancomycin. Infectious diseases are following. The patient is a bit more alert today. He is not on any supplemental oxygen. Saturations are in the low 90s. He is always sleeping when we see him. White count is 28.4, hemoglobin 8.6, hematocrit 28.0, and platelet count 285,000. Sodium is 138, potassium 4.4, chlorides 103, CO2 19, anion gap 16, BUN 75, and creatinine 5.85. Blood cultures were positive from the catheter tip on 04/17/2020. The patient has a history of prior cardiac arrest, end-stage renal disease, recurrent falls, CAD, type 2 diabetes, anemia of chronic disease, obesity, sleep apnea syndrome, right second toe cellulitis, abnormal liver enzymes, and mental status changes, which are improving somewhat. Progress note dated 04/20/2020. 59-year-old male, with history of Staphylococcus aureus sepsis. His previous hemodialysis catheter was removed. The patient will eventually need a permanent hemodialysis catheter placed. The patient continues on vancomycin. Infectious diseases is following. Clinically, he is doing a bit better. He is a bit more awake today. He's been weaned down to 2 L nasal cannula. He is apparently scheduled to have dialysis today. No new lab data today. More recent blood cultures from 04/19/2020, are negative. Temperature is 97.9, heart rate 65, respiratory rate 18, but pressure 1:30/72, with a mean of 92, and 2 L saturation is between 97 and 98%. 04/22/2020 I'm seeing the patient for a follow-up. The patient is still lethargic and on and off confused. He is able to some simple conversations. The patient has multiple medical problems and comorbidities. His post cardiac arrest. He has an incisional disease on hemodialysis, coronary artery disease, diabetes mellitus type 2, chronic anemia, and obstructive sleep apnea. He is a quite complicated case of staphylococcal sepsis/pneumonia. The patient is on vancomycin. No evidence of any endocarditis. The patient is afebrile and he is currently hemodynamically stable on room air oxygen. Note that, the patient is on hemodialysis for incisional disease. His hemodialysis catheter was removed due to the bacteremia and sepsis and a new hemodialysis catheter was inserted and subsequently removed on 04/21/2020. The most recent blood cultures from 04/21/2020 are still positive and the patient's catheter was again removed.. On 04/23/2020, the patient remains encephalopathic, probably related to underlying sepsis. His blood pressure is still positive for gram-positive cocci/MRSA. He does not have any catheters in place. Repeat blood culture was ordered on 04/22/2020. The previously obtained and removed catheter for dialysis was removed and the tip was sent for cultures and the results are still pending for that. Meanwhile, the patient's vancomycin trough is at 19.2. The dose being adjusted and monitored by pharmacy. He is afebrile. No chills. No fever. No shortness of breath. He is laying comfortably in bed. He is sleeping for most of the time. His last hemodialysis on Wednesday. A total of 1 L of fluid was removed. It seems that the patient has had intolerance another temporary dialysis catheter for another session of dialysis either today or tomorrow. This needs to be orchestrated and arranged by nephrology. The patient's white cell count is at 22.5 and the hemoglobin is at 7.5. BUN is a 51 with a creatinine of 5.0. Objective - Vital Signs Vital signs: Vital Signs Temp 97.3 F L 04/23/20 03:05 Pulse 63 04/23/20 08:00 Resp 18 04/23/20 08:00 BP 141/75 04/23/20 08:00 Pulse Ox 96 04/23/20 08:00 Intake & Output 04/22/20 04/23/20 04/23/20 18:59 06:59 18:59 Intake Total 1290 240 Balance 1290 240 Weight 89.5 kg 67.5 kg Intake: Intake, IV Titration 250 Amount Vancomycin 1,500 mg In 250 Sodium Chloride 0.9% 250 ml @ 125 mls/hr IVPB ONCE ONE Rx#:[id number] Oral 1040 240 Other: Voiding Method Urinal Urinal Urinal # Voids 2 # Bowel Movements 0 - Exam GENERAL EXAM: Sleepy, but arousable to voice, currently on room air oxygen HEAD: Normocephalic/atraumatic. EYES: Normal reaction of pupils, equal size. Conjunctiva pink, sclera white. NOSE: Clear with pink turbinates. THROAT: No erythema or exudates. NECK: No masses, no JVD, no thyroid enlargement, no adenopathy. CHEST: No chest wall deformity. Symmetrical expansion. Right subclavian has been removed. LUNGS: Equal air entry some rhonchi, but without crackles or wheezes. Breath sounds equal bilaterally. CVS: Regular rate and rhythm, normal S1 and S2, no gallops, soft systolic murmur, loudest at the left midclavicular line fourth to fifth intercostal space, no rubs. Heart rate 65 bpm. ABDOMEN: Soft, nontender. No hepatosplenomegaly, normal bowel sounds, no guarding or rigidity. EXTREMITIES: No clubbing, no edema, no cyanosis, 2+ pulses and upper and lower extremities. Left upper arm AV shunt in place, with positive bruit and thrill MUSCULOSKELETAL: Muscle strength and tone normal. SPINE: No scoliosis or deformity SKIN: No rashes. CENTRAL NERVOUS SYSTEM: Patient is lethargic/sleepy, but does arouse. He is appropriate when he is awake. - Labs CBC & Chem 7: 04/22/20 07:10 04/23/20 07:05 Labs: Abnormal Lab Results - Last 24 Hours (Table) 04/22/20 04/22/20 04/22/20 Range/Units 12:08 16:48 19:51 Sodium (137-145) mmol/L BUN (9-20) mg/dL Creatinine (0.66-1.25) mg/dL Glucose (74-99) mg/dL POC Glucose (mg/dL) 151 H 191 H 184 H (75-99) mg/dL Calcium (8.4-10.2) mg/dL 04/22/20 04/23/20 04/23/20 Range/Units 21:27 05:59 07:05 Sodium 135 L (137-145) mmol/L BUN 51 H (9-20) mg/dL Creatinine 5.00 H (0.66-1.25) mg/dL Glucose 230 H (74-99) mg/dL POC Glucose (mg/dL) 200 H 263 H (75-99) mg/dL Calcium 8.3 L (8.4-10.2) mg/dL Microbiology - Last 24 Hours (Table) 04/22/20 07:10 Blood Culture - Final Blood 04/21/20 08:08 Blood Culture Gram Stain - Preliminary Blood Blood Culture - Preliminary Presumptive MRSA 04/20/20 07:34 Blood Culture Gram Stain - Final Blood Blood Culture - Final Methicillin resist S. aureus 04/19/20 16:01 Blood Culture Gram Stain - Final Blood Blood Culture - Final Methicillin resist S. aureus 04/19/20 06:39 Blood Culture Gram Stain - Final Blood Blood Culture - Final Methicillin resist S. aureus Assessment and Plan Plan: 1 Acute hypoxemic respiratory failure, secondary to methicillin-resistant staph aureus sepsis, as well as acute diastolic CHF. The patient is currently on room air oxygen. The patient has recovered from his acute hypoxic respiratory failure. 2 sepsis secondary to Methicillin-resistant staph aureus bacteremia, and sepsis, likely secondary to his subclavian dialysis catheter, has been removed. YAYO is negative for regurgitation. Most recent blood culture from 04/13/2020 are still positive for gram-positive cocci, presumed MRSA and the patient remains on vancomycin. The most recent dialysis catheter was inserted in his groin was removed on 04/21/2020 and no immediate plans to put a permacath as long as the patient is still bacteremic.. In view of his underlying septicemia, the patient remains encephalopathic. There is no need for any benzodiazepine an hour waiting to discontinue the medication as the medications going to make him on previous and encephalopathic especially with his underlying renal failure. The patient is hemodynamically stable. Most recent blood cultures of been positive and the repeat blood cultures from 04/22/2020 are still pending for now. 3 Status post cardiac arrest, with asystole and/or pulseless electrical activity, brief, with 2 minutes of cardiopulmonary resuscitation. 4 Chronic end-stage renal disease, currently on hemodialysis, noncompliant. 5 Recurrent falls. 6 History of coronary artery disease. 7 Diabetes mellitus, type II, with diabetic neuropathy and nephropathy. 8 Anemia of chronic disease. 9 Obstructive sleep apnea syndrome. 10 Morbid obesity. 11 Right second toe cellulitis. ReCovered 12 Congestive hepatopathy, improved. 13 Leukocytosis, secondary to staph sepsis. 14 Encephalopathy, likely secondary to sepsis. 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 Unfortunately the patient remains bacteremic. No immediate plans to put the permanent catheter in place. We'll have a discussion with nephrology regarding dialysis access and infectious disease to follow-up on his ongoing bacteremia. Based on the infectious disease evaluation from yesterday, the patient will be kept on the same antibiotic coverage for now which is vancomycin and the vancomycin trough from today was at 19.2. Discontinue Valium Nephrology to organize another session of hemodialysis probably via another temporary dialysis catheter. No active pulmonary or critical care issue this point in time.
[2020-04-23 12:01] LABS: Glucose,Whole Blood 205 mg/dL (75-99)
[2020-04-23 17:11] LABS: Glucose,Whole Blood 205 mg/dL (75-99)
--- NOTE | 2020-04-23 17:24 | P.PN ---
Subjective Progress Note Date: 04/23/20 Patient was seen at bedside and he was being followed up with Dr. Cuadra last seen by Dr. Roca for neurological management was on 04/19/2020. Per the nurse the patient has fluctuation in mentation. His blood culture keep on coming back MRSA. Upon seeing the patient at bedside he stated that he is been having falls for the last 2-3 months. He has a chronic history of lower back pain and denies any radiation. He could not tell me the exact history of his lower back pain except the its that in the lower back and it's been going on for a while. He cannot tell me if he has any sensory loss or not. Patient had MRI of the lumbar spine without contrast on the 03/05/2020 for chronic back pain and falls and it's reported as mild to moderate degenerative changes in the lower spine as detailed above in the body of the report. Interbody is mentioned that the patient has slight grade 1 retrolisthesis L5 on S1 redemonstrated. Disc this occasion at L5/S1 and L2/3 level axial images at L4 and L5 levels show moderate facet degenerative changes and ligamentous flavum hypertrophy effacing posterior lateral thecal sac on axial image 8. Axial image at L5-S1 levels show mild to moderate facet degenerative changes bilaterally there is focal right paracentral disc protrusion minimally effacing the anterior thecal sac. Patient had CT lumbar spine as well as thoracic on 02/26/2020 for lower back pain as well as falls as reported as no acute fracture or dislocation in the thoracic or lumbar spine. Per the primary team and it is mentioned that the patient has an outpatient orthopedic evaluation that's pending. Patient hemoglobin A1c is 10.1 and that was done on 04/11/2020 patient prior hemoglobin was in July 2018 and was 9.7. And prior to that in 2018 was 14.2. Upon reviewing the entire hemoglobin A1c it's been uncontrolled and never between 4-6. His vitamin B12 is more than 4000 and the this was last checked on the 03/2020. And that's considered normal even notes high TSH is 3.57 which is normal Objective - Vital Signs Vital signs: Vital Signs Temp 97.3 F L 04/23/20 03:05 Pulse 63 04/23/20 13:41 Resp 18 04/23/20 13:41 BP 126/77 04/23/20 12:00 Pulse Ox 97 04/23/20 12:00 Intake & Output 04/22/20 04/23/20 04/23/20 18:59 06:59 18:59 Intake Total 1290 1000 Balance 1290 1000 Weight 89.5 kg 67.5 kg Intake: Intake, IV Titration 250 Amount Vancomycin 1,500 mg In 250 Sodium Chloride 0.9% 250 ml @ 125 mls/hr IVPB ONCE ONE Rx#:[id number] Oral 1040 1000 Other: Voiding Method Urinal Urinal Urinal # Voids 2 # Bowel Movements 0 - Exam GENERAL: The patient is lying in bed and is not in acute distress. NEUROLOGICAL: Higher mental function: The patient is awake, oriented to self, place. For time he stated it was March but correctly stated the year. Patient is following commands. No aphasia and no neglect. Cranial nerves: The pupils are round, equal and reactive to light. Patient is legally blind out of both eyes. Extraocular movement is intact no nystagmus is noted. Facial sensation is normal to touch throughout. The facial strength is normal throughout. Hearing is moderately hard of hearing bilaterally to hand rub. No dysarthria is noted. Motor: Gait is deferred. Motor stregnth: triceps is 4+ to 5- bilaterally, while hand building specialist are 5- bilaterally otherwise bilateral upper 5/5. Lowers are 4+ throughout except ankles are 5- bilaterally and lower extremities are limited because of pain. Cerebellum: Unable to assess because of cooperation. Sensation: Unable to assess because of his cooperation. Reflexes (right/left): 0-1+ over bilateral upper extremities while triceps are 1-2+ bilaterally. Otherwise lower are 0 throughout. Plantars are mute bilaterally. - Labs CBC & Chem 7: 04/22/20 07:10 04/23/20 07:05 Labs: Abnormal Lab Results - Last 24 Hours (Table) 04/22/20 04/22/20 04/22/20 Range/Units 16:48 19:51 21:27 Sodium (137-145) mmol/L BUN (9-20) mg/dL Creatinine (0.66-1.25) mg/dL Glucose (74-99) mg/dL POC Glucose (mg/dL) 191 H 184 H 200 H (75-99) mg/dL Calcium (8.4-10.2) mg/dL 04/23/20 04/23/20 04/23/20 Range/Units 05:59 07:05 11:59 Sodium 135 L (137-145) mmol/L BUN 51 H (9-20) mg/dL Creatinine 5.00 H (0.66-1.25) mg/dL Glucose 230 H (74-99) mg/dL POC Glucose (mg/dL) 263 H 205 H (75-99) mg/dL Calcium 8.3 L (8.4-10.2) mg/dL Microbiology - Last 24 Hours (Table) 04/22/20 07:10 Blood Culture - Final Blood 04/21/20 08:08 Blood Culture Gram Stain - Preliminary Blood Blood Culture - Preliminary Presumptive MRSA 04/20/20 07:34 Blood Culture Gram Stain - Final Blood Blood Culture - Final Methicillin resist S. aureus Assessment and Plan Assessment: This is a 59-year-old gentleman with multiple medical problem that presented to the emergency department on 04/10/2020 for multiple falls at home. It is reported that his legs gave out but did not lose consciousness. Patient has missed his last two sessions of dialysis. Patient had an episode of cardiac arrest on 04/11/2020 lasting less than 2 minutes then later in later afternoon had respiratory arrest and unsure of duration with hypovolemia (76/35). Neurology is being consulted for altered mental status Altered mental status: Seems predominantly toxic metabolic encephalopathy and component of septic encephalopathy Bilateral lower extremity weakness with falls, possibe diabetic neuropathy/plexopathy vs mononeuritis multiplex (especially with history of poorly controlled diabetes) moderate Lumbar spondylosis (L4/L5 and L5/S1) Poorly controlled diabetes mellitus (HbA1c 10.1) History of septicemia with MRSA. Status post removal dialysis catheter on 04/16/2020. Catheter tip culture grew MRSA Cardiac arrest on 04/11/2020 lasting less than 2 minutes Atrial fibrillation History of coronary artery disease status post stent Peripheral neuropathy Deafness Legally blind Hyperlipidemia Hypertension End-stage renal disease on dialysis Plan: Patient had MRI of the lumbar spine without contrast on the 03/05/2020 for chronic back pain and falls and it's reported as mild to moderate degenerative changes in the lower spine as detailed above in the body of the report. Interbody is mentioned that the patient has slight grade 1 retrolisthesis L5 on S1 redemonstrated. Disc this occasion at L5/S1 and L2/3 level axial images at L4 and L5 levels show moderate facet degenerative changes and ligamentous flavum hypertrophy effacing posterior lateral thecal sac on axial image 8. Axial image at L5-S1 levels show mild to moderate facet degenerative changes bilaterally there is focal right paracentral disc protrusion minimally effacing the anterior thecal sac. I highly recommended the patient get EMG with nerve conduction study as an o utpatient within 1 week if possible. Physical therapy and occupation therapy are consulted. I highly recommend the patient the sugar to be better controlled. We'll defer the management to the primary team I feel the patient will benefit highly from inpatient rehab. The patient needs to follow-up with a neurologist as an outpatient within the week. We'll defer the rest of the medical management to the primary team. The plan is discussed with the patient and his nurse. Dru Nixon MD Neuro-Hospitalist Time with Patient: Less than 30
[2020-04-23 20:37] LABS: Glucose,Whole Blood 143 mg/dL (75-99)
[2020-04-23] MEDS ORDERED: MELATONIN 3 MG TABLET PO SCH (21:00)
--- NOTE | 2020-04-23 23:21 | PN ---
PROGRESS NOTE DATE OF SERVICE: 04/23/2020 REASON FOR FOLLOWUP: MRSA bacteremia secondary to PermCath infection. INTERVAL HISTORY: The patient is currently afebrile. The patient is breathing comfortably. The patient denies having any chest pain or shortness of breath or cough. No nausea, no vomiting, no abdominal pain or diarrhea. PHYSICAL EXAMINATION: Blood pressure 126/77, pulse of 63, temperature 98. He is 97% on 2 L nasal cannula. General description is a middle-aged male lying in bed in no distress. RESPIRATORY SYSTEM: Unlabored breathing. Clear to auscultation anteriorly. HEART: S1, S2. Regular rate and rhythm. ABDOMEN: Soft. No tenderness. LABS: Repeat blood culture still positive from yesterday. DIAGNOSTIC IMPRESSION AND PLAN: Patient with methicillin-resistant Staphylococcus aeruginosa bacteremia. Source is PermCath, which has been discontinued. Patient is covered with vancomycin. That will be continued while monitoring his clinical course closely. Continue with supportive care. MMODL / IJN: [id number] /
[2020-04-24] MEDS: HYDROcodone/APAP 10-325MG 1 EACH TAB PO PRN (01:01)
[2020-04-24 06:55] LABS: Glucose,Whole Blood 157 mg/dL (75-99)
[2020-04-24] MEDS: GABAPENTIN 100 MG CAP PO SCH ×3 (07:44→22:28)
[2020-04-24] MEDS: hydrALAZINE HCL 25 MG TAB PO SCH ×3 (07:44→22:28)
[2020-04-24] MEDS: METOPROLOL TARTRATE 25 MG TAB PO SCH ×2 (07:44→22:28)
[2020-04-24] MEDS: PANTOPRAZOLE 40 MG TABLET PO SCH (07:44)
[2020-04-24] MEDS: ISOSORBIDE MONONITRATE ER 30 MG TAB.ER.24H PO SCH (07:44)
[2020-04-24] MEDS: allopurinoL 100 MG TAB PO SCH (07:44)
[2020-04-24] MEDS: AMIODARONE 200 MG TAB PO SCH (07:45)
[2020-04-24] MEDS: INSULIN DETEMIR (LEVEMIR) 100 UNIT/ML SYR SQ SCH (07:45)
[2020-04-24] MEDS: INSULIN ASPART (NovoLOG) 100 UNIT/ML VIAL SQ SCH ×7 (07:45→22:19)
[2020-04-24] MEDS: CLOPIDOGREL 75 MG TAB PO SCH (07:45)
[2020-04-24] MEDS ORDERED: RX INFO: IV CONTRAST WAS GIVEN 1 EACH MISC MISCELLANE PRN (09:14)
--- NOTE | 2020-04-24 10:40 | P.PN ---
Subjective Progress Note Date: 04/24/20 Principal diagnosis: Acute hypoxemic respiratory failure secondary to MRSA, diastolic CHF 04/22/2020 I'm seeing the patient for a follow-up. The patient is still lethargic and on and off confused. He is able to some simple conversations. The patient has multiple medical problems and comorbidities. His post cardiac arrest. He has an incisional disease on hemodialysis, coronary artery disease, diabetes mellitus type 2, chronic anemia, and obstructive sleep apnea. He is a quite complicated case of staphylococcal sepsis/pneumonia. The patient is on vancomycin. No evidence of any endocarditis. The patient is afebrile and he is currently hemodynamically stable on room air oxygen. Note that, the patient is on hemodialysis for incisional disease. His hemodialysis catheter was removed due to the bacteremia and sepsis and a new hemodialysis catheter was inserted and subsequently removed on 04/21/2020. The most recent blood cultures from 0 04/21/2020 are still positive and the patient's catheter was again removed.. On 04/23/2020, the patient remains encephalopathic, probably related to underlying sepsis. His blood pressure is still positive for gram-positive cocci/MRSA. He does not have any catheters in place. Repeat blood culture was ordered on 04/22/2020. The previously obtained and removed catheter for dialysis was removed and the tip was sent for cultures and the results are still pending for that. Meanwhile, the patient's vancomycin trough is at 19.2. The dose being adjusted and monitored by pharmacy. He is afebrile. No chills. No fever. No shortness of breath. He is laying comfortably in bed. He is sleeping for most of the time. His last hemodialysis on Wednesday. A total of 1 L of fluid was removed. It seems that the patient has had intolerance another temporary dialysis catheter for another session of dialysis either today or tomorrow. This needs to be orchestrated and arranged by nephrology. The patient's white cell count is at 22.5 and the hemoglobin is at 7.5. BUN is a 51 with a creatinine of 5.0. The patient is seen today 04/24/2020 in follow-up on the regular medical floor. He remains encephalopathic. Blood cultures continued to show presumptive MRSA. Remains on vancomycin. Cultures of the dialysis catheter tip still pending. Remains with end-stage renal disease with treatments on Wednesday. Permacath had been removed. Plan is for placement of a new permacath once cleared by ID. Most recent creatinine 5.00 yesterday. Heart rate is controlled. Remains on amiodarone. Objective - Vital Signs Vital signs: Vital Signs Temp 97.9 F 04/24/20 08:00 Pulse 61 04/24/20 08:00 Resp 19 04/24/20 08:00 BP 135/76 04/24/20 08:00 Pulse Ox 99 04/24/20 08:00 Intake & Output 04/23/20 04/24/20 04/24/20 18:59 06:59 18:59 Intake Total 1450 100 Balance 1450 100 Intake: Oral 1450 100 Other: Voiding Method Urinal Urinal Urinal - Exam GENERAL EXAM: Sleepy, but arousable to voice, currently on 2 L nasal cannula HEAD: Normocephalic/atraumatic. EYES: Normal reaction of pupils, equal size. Conjunctiva pink, sclera white. NOSE: Clear with pink turbinates. THROAT: No erythema or exudates. NECK: No masses, no JVD, no thyroid enlargement, no adenopathy. CHEST: No chest wall deformity. Symmetrical expansion. Right subclavian has been removed. LUNGS: Equal air entry some rhonchi, but without crackles or wheezes. Breath sounds equal bilaterally. CVS: Regular rate and rhythm, normal S1 and S2, no gallops, soft systolic murmur, loudest at the left midclavicular line fourth to fifth intercostal space, no rubs. Heart rate 65 bpm. ABDOMEN: Soft, nontender. No hepatosplenomegaly, normal bowel sounds, no guarding or rigidity. EXTREMITIES: No clubbing, no edema, no cyanosis, 2+ pulses and upper and lower extremities. Left upper arm AV shunt in place, with positive bruit and thrill MUSCULOSKELETAL: Muscle strength and tone normal. SPINE: No scoliosis or deformity SKIN: No rashes. CENTRAL NERVOUS SYSTEM: Patient is lethargic/sleepy, but does arouse. He is appropriate when he is awake. - Labs CBC & Chem 7: 04/22/20 07:10 04/23/20 07:05 Labs: Abnormal Lab Results - Last 24 Hours (Table) 04/23/20 04/23/20 04/23/20 Range/Units 11:59 17:09 20:29 POC Glucose (mg/dL) 205 H 205 H 143 H (75-99) mg/dL 04/24/20 Range/Units 06:53 POC Glucose (mg/dL) 157 H (75-99) mg/dL Microbiology - Last 24 Hours (Table) 04/23/20 07:05 Blood Culture - Final Blood 04/22/20 07:10 Blood Culture Gram Stain - Preliminary Blood Blood Culture - Preliminary Presumptive MRSA 04/21/20 08:08 Blood Culture Gram Stain - Final Blood Blood Culture - Final Methicillin resist S. aureus 04/22/20 07:10 Blood Culture - Final Blood Assessment and Plan Assessment: 1 Acute hypoxemic respiratory failure, secondary to methicillin-resistant staph aureus sepsis, as well as acute diastolic CHF. The patient is currently on 2 L nasal cannula. The patient has recovered from his acute hypoxic respiratory failure. 2 sepsis secondary to Methicillin-resistant staph aureus bacteremia, and sepsis, likely secondary to his subclavian dialysis catheter, has been removed. YAYO is negative for regurgitation. Most recent blood culture from 04/13/2020 are still positive for gram-positive cocci, presumed MRSA and the patient remains on vancomycin. The most recent dialysis catheter was inserted in his groin was removed on 04/21/2020 and no immediate plans to put a permacath as long as the patient is still bacteremic.. In view of his underlying septicemia, the patient remains encephalopathic. There is no need for any benzodiazepine an hour waiting to discontinue the medication as the medications going to make him on previous and encephalopathic especially with his underlying renal failure. The patient is hemodynamically stable. Most recent blood cultures of been positive and the repeat blood cultures from 04/22/2020 are still pending for now. 3 Status post cardiac arrest, with asystole and/or pulseless electrical activity, brief, with 2 minutes of cardiopulmonary resuscitation. 4 Chronic end-stage renal disease, currently on hemodialysis, noncompliant. 5 Recurrent falls. 6 History of coronary artery disease. 7 Diabetes mellitus, type II, with diabetic neuropathy and nephropathy. 8 Anemia of chronic disease. 9 Obstructive sleep apnea syndrome. 10 Morbid obesity. 11 Right second toe cellulitis. ReCovered 12 Congestive hepatopathy, improved. 13 Leukocytosis, secondary to staph sepsis. 14 Encephalopathy, likely secondary to sepsis. 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 Beverly Currently stable from the pulmonary standpoint Plan is for replacement of an HD catheter once cleared by ID Blood cultures continued to show presumptive MRSA Remains on vancomycin We will continue to follow I, the cosigning physician, performed a history & physical examination of the patient. Lungs sounds with few scattered rhonchi. Maintaining good O2 saturations in the 90s on 2 L/m per nasal cannula. I discussed the assessment and plan of care with my nurse practitioner, Monica North. I attest to the above note as dictated by her.
[2020-04-24 10:46] LABS: Calcium 8.3 mg/dL (8.4-10.2); Magnesium 2.1 mg/dL (1.6-2.3); Potassium 5.4 mmol/L (3.5-5.1)
[2020-04-24 10:51] LABS: Vancomycin,Random 25.3 ug/mL
[2020-04-24 11:23] LABS: Glucose,Whole Blood 128 mg/dL (75-99)
--- NOTE | 2020-04-24 11:57 | P.PN ---
Subjective Patient is seen in follow-up for end-stage renal disease. He is maintained on hemodialysis on Wednesday schedule. He is being treated for MRSA bacteremia. Permacath was removed on April 17. Groin catheter was placed April 19 and and removed April 21. Remains confused. Potassium 5.4 today. Blood pressure stable. Blood cultures remain positive for MRSA. Vital signs are stable. General: The patient appeared well nourished and normally developed. HEENT: Head exam is unremarkable. Neck is without jugular venous distension. LUNGS: Breath sounds decreased. HEART: Rate and Rhythm are regular. ABDOMEN: Soft, nontender. EXTREMITITES: No edema. Objective - Vital Signs Vital signs: Vital Signs Temp 97.9 F 04/24/20 08:00 Pulse 61 04/24/20 08:00 Resp 19 04/24/20 08:00 BP 135/76 04/24/20 08:00 Pulse Ox 99 04/24/20 08:00 Intake & Output 04/23/20 04/24/20 04/24/20 18:59 06:59 18:59 Intake Total 1450 100 Balance 1450 100 Intake: Oral 1450 100 Other: Voiding Method Urinal Urinal Urinal - Labs CBC & Chem 7: 04/22/20 07:10 04/24/20 08:03 Labs: Abnormal Lab Results - Last 24 Hours (Table) 04/23/20 04/23/20 04/23/20 Range/Units 11:59 17:09 20:29 Sodium (137-145) mmol/L Potassium (3.5-5.1) mmol/L BUN (9-20) mg/dL Creatinine (0.66-1.25) mg/dL Glucose (74-99) mg/dL POC Glucose (mg/dL) 205 H 205 H 143 H (75-99) mg/dL Calcium (8.4-10.2) mg/dL 04/24/20 04/24/20 04/24/20 Range/Units 06:53 08:03 11:18 Sodium 135 L (137-145) mmol/L Potassium 5.4 H (3.5-5.1) mmol/L BUN 58 H (9-20) mg/dL Creatinine 6.18 H (0.66-1.25) mg/dL Glucose 140 H (74-99) mg/dL POC Glucose (mg/dL) 157 H 128 H (75-99) mg/dL Calcium 8.3 L (8.4-10.2) mg/dL Microbiology - Last 24 Hours (Table) 04/23/20 07:05 Blood Culture Gram Stain - Preliminary Blood 04/23/20 07:05 Blood Culture - Final Blood 04/22/20 07:10 Blood Culture Gram Stain - Preliminary Blood Blood Culture - Preliminary Presumptive MRSA 04/21/20 08:08 Blood Culture Gram Stain - Final Blood Blood Culture - Final Methicillin resist S. aureus 04/22/20 07:10 Blood Culture - Final Blood Assessment and Plan Plan: Assessment: 1. End-stage renal disease maintained on hemodialysis on Wednesday schedule. 2. MRSA bacteremia secondary to permacath infection status post removal on April 17. 3. Chronic kidney disease mineral bone disease maintained on PhosLo. 4. Hypertension with chronic kidney disease. Controlled. 5. Diabetes mellitus. 6. A. fib maintained on amiodarone and Lopressor. 7. Anemia of chronic kidney disease maintained on Aranesp. 8. Hyperkalemia secondary to chronic kidney disease. Plan: Hemodialysis today and tomorrow. Femoral catheter will be placed - discussed with ID. Patient will need a permacath once cleared by ID. Monitor vancomycin levels. Target level near 15. Continue to hold Cozaar for now.
--- NOTE | 2020-04-24 12:56 | CT ---
EXAMINATION TYPE: CT chest w con DATE OF EXAM: 04/24/2020 COMPARISON: 03/24/2018 HISTORY: MRSA bacteremia. Lung abscess. CT DLP: 711.3 mGycm, Automated exposure control for dose reduction was used. CONTRAST: Performed injected with 80 mL of Isovue 300. TECHNIQUE: Axial images were obtained at 5 mm thick sections. Reconstructed images are reviewed on [employer] computer in the coronal plane. FINDINGS: The thyroid is somewhat heterogenous. This could be further evaluated with ultrasound. There is a small left and right pleural effusion. Some compressive atelectasis or pneumonia is at the dependent lung bases bilaterally. Note is made of coronary artery calcification. No enlarged mediastinal or hilar adenopathy is evident. The ascending aorta diameter at the level o f the main pulmonary artery is 3.4 cm. The main pulmonary artery diameter at the bifurcation is 2.[address] sections are obtained through the upper abdomen. Abdomen is essentially unremarkable. IMPRESSIONS: 1. Small bilateral pleural effusions. Clinical consideration for empyema. This is an interval finding . 2. Compressive atelectasis versus consolidation from pneumonia in the dependent lung bases. 3. No suspicious abscess formation
--- NOTE | 2020-04-24 13:15 | P.PN ---
Subjective Progress Note Date: 04/24/20 HISTORY OF PRESENT ILLNESS 59 years old male patient of Dr. Mckeon with past medical history of end-stage renal disease on hemodialysis Wednesday and Wednesday, coronary artery disease post angioplasty, and stent placement last catheterization was February 09 with stent of the left circumflex and proximal LAD, atrial fibrillation, diabetes, GERD, hyperlipidemia, hypertension. He does have intermittent lesion along the mid LAD and follows Dr. Hinojosa on as outpatient. Patient was last admitted in February 16 with chest pain and unstable angina, comes in this time with change in mental status, and multiple falls at home. Patient is unable to provide any history due to increased drowsiness. History obtained from the chart. It appears patient had a fall in the bathroom as his leg gave out. He denies any dizziness or syncope episode. CT of the head was obtained that showed no acute lesions. Patient missed 2 dialysis appointment, last hemodialysis was 1 week ago. In the ER patient's blood pressure was 202/94 temp of 99 pulse 91 and respiratory rate 19 on assessment of patient's lab patient had a any, hemoglobin 10.7 hematocrit 32.4 sodium 133 chloride 92 bicarb 21 BUN 86 creatinine 7.56 glucose 237. Urinalysis does suggest leukocytosis with positive blood and positive protein. Urine culture was sent. On evaluation today patient is found to be lying in bed. He is unable to provide any history. Patient did Gabapentin, Dilaudid and 1 L of bolus of IV fluids. We will hold pain medication. Decrease gabapentin 100 3 times a day. Patient will be started on levofloxacin renally adjusted to 250 every 48 hours. Ativan reduced to 0.5 mg 3 times a day. Hold off diuretics. Nephrology consulted At 2:30 this afternoon patient became unresponsive as patient was hooked to the dialysis. The A team responded to the patient did mention patient was pulseless. A brief CPR was done for 2 minutes, with return of spontaneous circulation and return of the pulse with no need of epinephrine. Patient's blood pressure was found to be low. Cardiology consult will be placed. Echo will be ordered. Patient was noted to be in atrial fibrillation and was transferred to the ICU on nonrebreather mask. Another attempt was made to start the hemodialysis while patient was arousable and follows all commands he was found to be more lethargic. Patient's blood pressure dropped on hemodialysis and became unresponsive not responding to sternal rub. Was noted to be in A. fib with RVR. Patient was placed on BiPAP intubation was not required. 04/12 patient currently in the ICU. Vitals are stable with temp of 98 pulse 67 and respiratory rate 19 and blood pressure 156/71 oxygen saturation 95% on 40% on BiPAP. Patient has leukocytosis of 18 improved from 20 hemoglobin 9.9, sodium 134 chloride 97 bicarb 19 BUN 104 creatinine 8.15 phosphorus 10.7 and total bilirubin 1.7 AST 2932 ALT 2727 alkaline phosphatase 449. Cardiology evaluated the patient thinks patient's episode of unresponsiveness could be vasovagal from low blood pressure. Continue to monitor patient's blood pressure with possible orthostatics when patient is stable. Metoprolol dose increased to 25 twice a day. Initiated on amiodarone 100 mg daily patient is being dialyzed today with minimal ultrafiltration. We will hold hydralazine and Cozaar for systolic less than 125. Patient currently off pressors. Spoke to patient's at bedside who mentioned patient has been falling for the past few months. He had MRI of the lower back done as outpatient that suggested severe spinal stenosis. Patient was set up for PT as outpatient but has been forgetting to often due to weakness in his legs. He has a outpatient appointment pending with an orthopedic surgery 04/13: Patient still in the ICU , on BiPAP, he still have less responsiveness, quite hypertensive today back on vasopressor. Patient was diagnosed tolerate hemodialysis for long had only 1 hour, still currently in significant encephalopathy status, continue IV antibiotic for now there is a small gang renous spot on the right second toe. 04/14: Patient is off vasopressor, still on BiPAP, still running back and forth between tachycardia and A. fib. No hemodialysis done today. Patient is very confused is taking his lines And all attachment out he required a sitter today. 04/15: Patient is off vasopressor, off BiPAP, he is more awake alert today, he is more hemodynamically stable. He is on hemodialysis and blood pressure is holding well so far should be able to do full cycle of hemodialysis today. Source of infection is still unclear suspect to be dialysis catheter which might be pulled out to place another catheter either in the femoral area or use the fistula graft had in the left forearm. 04/16: Patient evaluated in the ICU. Patient is arousable but easily drifts back to sleep. He had dialysis yesterday, with possible plans for dialysis again today due to elevated BUN/creatinine. Possible source of infection still unclear and suspected to be dialysis catheter. Nephrology plans on repeat blood cultures via dialysis catheter, if positive will discuss discontinuing the IJ pe rmacath. Infectious disease added Cefepime for worsening white count, and continue on Vancomycin. Repeat chest x-ray shows cardiomegaly with left basilar atelectasis. Plans to transfer of the ICU today to select care unit. 04/17: Patient's right IJ permacath dialysis catheter was removed yesterday. Patient's nurse reports that there was pus on the end and this has been cultured. Patient remains in the intensive care unit but has been downgraded to cardiac stepdown unit. Patient has been afebrile, heart rate 57, blood pressure 109/59, pulse ox 100% on 2 L nasal cannula. conveyor monitor has been a sinus rhythm. He does have short bouts of atrial fibrillation most often noted when he drinks cold liquids. Repeat blood work reveals WBC of 32, hemoglobin 9.6, platelet count 285. BUN 47 creatinine 3.63, potassium 4.3. Blood sugars running between 85 and 166. Total bilirubin 1.3, AST 98, ALT 517, alkaline phosphatase 391. Liver function tests are improved from yesterday. Chest x-ray today reveals cardiomegaly. Interstitial density slightly increased. Correlate to exclude developing pulmonary vascular congestion. Left base remains under penetrated area and some underlying atelectasis or infiltrate or effusion possible. 04/18: Patient is seen today on the cardiac stepdown unit. Patient is awake and answering questions but speech is slow and slurred. Reviewed plan of care with him and he verbalizes understanding. Patient is afebrile, heart rate 66, blood pressure 123/55, pulse ox 99% on 2 L nasal cannula. Catheter tip culture is showing presumptive MRSA. Repeat blood cultures have been ordered to see if bacteremia is clearing. Patient is currently on vancomycin pharmacy dosing and cefepime. YAYO performed by Dr. Bowie reveals no evidence of infective endocardit is. No evidence of intracardiac valves vegetation or abscess. Aortic sclerosis, trileaflet mildly thickened with trace aortic insufficiency. Thickened anterior posterior mitral leaflets with moderate mitral regurgitation. Moderate tricuspid regurgitation. Moderate pulmonic insufficiency. Mild biatrial enlargement. Intact anterior atrial septum and intact left atrial appendage without thrombus. Low normal LV with EF of 50%. No pericardial effusion. 04/19: Patient had worsening of his mental status during the night and remains confused worse than yesterday. Leandra is on hold this morning for temporary line placement for dialysis. Dr. Nguyen is planning on hemodialysis today and tomorrow. Patient is only able to state that he feels miserable and terrible but nothing specific. He has been afebrile, heart rate 74, blood pressure 161/75, pulse ox 91% on room air. WBC is 28.4, hemoglobin 8.6, platelet count 285. CO2 19, BUN 75 and creatinine 5.85. Blood sugars running between 205 and 235. Vancomycin level XXI.5. Repeat blood cultures obtained on April 18 are also positive. CAT scan of the abdomen and pelvis with contrast revealed moderate anasarca. Small bilateral pleural effusions with adjacent atelectasis superimposed infiltrates not excluded. Mild urinary bladder wall thickening, correlate for cystitis. No significant contrast excretion into the renal colle ction system on the delayed images. No significant intra-abdominal pelvic abnormality. Tetracycline has recommended continuing vancomycin. 04/20: Patient had a temporary dialysis catheter placed in the right groin and underwent hemodialysis treatment yesterday but due to patient's restlessness it was not a good treatment. His mental status however is significantly improved today. We will plan to order Dilaudid 1 mg before dialysis treatment and if necessary Valium 5 mg can be given. Patient's nurses been updated. Dr. Wills is planning to remove dialysis catheter following treatment today. Blood cultures remain positive including those drawn on April 19. Repeat blood cultures ordered for tomorrow. Dr. Presley has been updated. He has been afebrile, heart rate 65, blood pressure 134/72, pulse ox 97% on 2 L nasal cannula. Blood sugars running between 90-162. Vancomycin level XVIII. 04/21: She underwent dialysis yesterday with removal of a half a liter of fluid as was planned. Patient is scheduled for another treatment today. Patient states that she is feeling better. Mental status is improved from 2 days ago. Plan is to remove dialysis catheter after today's treatment. His blood cultures that were obtained yesterday are positive. Patient has been afebrile, heart rate 65, blood pressure 118/66, pulse ox 94% on 2 L nasal cannula. Creatinine 4.19. Blood sugars are running between 99 and 146. Patient did well with Dilaudid given 1 mg prior to dialysis treatment. We will plan to repeat this today. 04/22: Patient had dialysis yesterday and dialysis catheter was subsequently removed. Repeat blood cultures obtained on April 21 are also positive. Patient denies any new complaints today. No chest pain, shortness of breath. Patient continues to have some confusion. Losartan has been discontinued by nephrology. He has been afebrile, heart rate 62, blood pressure 126/81, pulse ox 99% on 3 L nasal cannula. Repeat blood work reveals W BC at 22.5, hemoglobin 7.5, platelet count 215. Electrolytes normal, BUN 37 creatinine 3.9. Blood sugars running between 86 and 157. Total bilirubin 0.7, AST 23, ALT 107, alkaline phosphatase 226. Vancomycin level XIX.2. 04/23: Patient continues to be confused more so than yesterday. That blood sugars have been elevated later in the afternoon and evening and scheduled NovoLog added to his regime. Repeat blood work reveals sodium of 135, potassium 4.9, chloride 101, CO2 24, BUN 51 creatinine 5. Blood sugars are running between 184 and 263. Repeat blood culture has been obtained today and is pending. 04/24: She appears to be mentally more alert today. He is sleeping and awakens easily. He is having difficulty sleeping at nighttime. Melatonin increased to 9 mg at bedtime. Vistaril discontinued. We have ordered a CAT scan of the chest to rule out abscess. CAT scan of the chest revealed small bilateral pleural effusions. Clinical consideration for empyema. Compressive atelectasis versus consolidation from pneumonia in the dependent lung bases. No suspicious abscess. He continues to have positive blood cultures pharmacy is dosing vancomycin at this point. She and is complaining of chest wall pain when he coughs at site of previous catheter. REVIEW OF SYSTEMS Constitutional: No fever, no chills, no night sweats. No weight change. Reported weakness, reported fatigue reported lethargy. Reported daytime sleepiness. EENT: No headache. No blurred vision or double vision, no loss of vision. No loss of Hearing, no ringing in the ears, no dizziness. No nasal drainage or congestion. No epistaxis. No sore throat. Lungs: No shortness of breath, cough, no sputum production. No wheezing. Cardiovascular: No chest pain, no lower extremity edema. No palpitations. No paroxysmal nocturnal dyspnea. No orthopnea. No lightheadedness or dizziness. No syncopal episodes. Abdominal: No abdominal pain. No nausea, vomiting. No diarrhea. No constipation. No bloody or tarry stools. No loss of appetite. Genitourinary: No dysuria, increased frequency, urgency. No urinary retention. Musculoskeletal: No myalgias. No muscle weakness, no gait dysfunction, no frequent falls. No back pain. No neck pain. Integumentary: No wounds, no lesions. No rash or pruritus. No unusual bruising. No change in hair or nails. Neurologic: No aphasia. No facial droop. Reported confusion. No head injury. No headache. No paralysis. No paresthesia. Psychiatric: No depression. No anxiety. Endocrine: Noted abnormal blood sugars. PHYSICAL EXAMINATION Gen: This is a 59-year-old male patient seen on the cardiac stepdown unit. He is resting in bed and appears to be in no acute respiratory distress. HEENT: Head is atraumatic, normocephalic. Pupils equal, round. Sclerae is anicteric. NECK: Supple. No JVD. No lymphadenopathy. No thyromegaly. LUNGS: Clear to auscultation. No wheezes or rhonchi. No intercostal retractions. HEART: Regular rate and rhythm. 2/6 systolic murmur. ABDOMEN: Soft. Bowel sounds are present. No masses. No tenderness. EXTREMITIES: No pedal edema. No calf tenderness. NEUROLOGICAL: Patient is oriented to person and place. He is able to converse, answer questions and follow commands. Mental status is improved today but not at baseline. ASSESSMENT AND PLAN 1. Sepsis and MRSA bacteremia secondary to dialysis catheter. Permacath has been removed as of yesterday and culture of tip done. Patient is followed by Dr. Presley and continued on vancomycin. Temporary catheter was removed yesterday, planned for permanent catheter placement once blood cultures are clear. Blood cultures remain positive from 04/21. CAT scan of the chest as above. Noted consideration for empyema. Tetracycline is requesting Dr. Beverly's input regarding this. At this time, plan to continue vancomycin. 2. Metabolic encephalopathy secondary to sepsis, uremia, pain medication and benzodiazepines improving. Lorazepam has been discontinued. Vistaril discontinued. 3. End-stage renal disease on hemodialysis. Permanent catheter will be placed once bacteremia is cleared. Consult with nephrology and vascular surgery appreciated. Continue PhosLo 1334 mg 3 times daily. 4. Fall secondary to degenerative disc disease and spinal stenosis. MRI as an outpatient revealed severe spinal stenosis. Patient has outpatient orthopedic evaluation pending. PT and OT following. 5. Acute syncopal episode most likely vasovagal, patient had brief CPR. Cardiology consult appreciated. 6. History of coronary artery disease with previous PTCA to LAD and circumflex. Lexiscan was negative on previous admission. Continue Plavix 75 mg daily, Imdur 30 mg daily, Lopressor 25 mg in the morning and evening. 7. Paroxysmal atrial fibrillation. Continue eliquis 2.5 mg twice daily and metoprolol, amiodarone at 200 mg daily. (Eliquis on hold) 8. Ischemic cardiomyopathy. 9. Diabetes mellitus type 2, insulin requiring, uncontrolled with hyperglycemia. Continue Levemir 20 units daily, add NovoLog scale 3 units with meals and continue NovoLog scale before meals and at bedtime, 10. Diabetic neuropathy. Continue gabapentin 100 mg 3 times daily. 11. Hypertension. Continue hydralazine 25 mg 3 times daily, losartan has been discontinued by nephrology. 12. Anemia of chronic disease. Continue to monitor. 13. GI prophylaxis. Continue Protonix. 14. DVT prophylaxis. Continue eliquis. DISCHARGE PLAN [facility]. Impression and plan of care have been directed as dictated by the signing physician. Katelyn Wesley nurse practitioner acting as scribe for signing physician. Objective - Vital Signs Vital signs: Vital Signs Temp 97.9 F 04/24/20 08:00 Pulse 61 04/24/20 08:00 Resp 19 04/24/20 08:00 BP 135/76 04/24/20 08:00 Pulse Ox 99 04/24/20 08:00 Intake & Output 04/23/20 04/24/20 04/24/20 18:59 06:59 18:59 Intake Total 1450 100 Balance 1450 100 Intake: Oral 1450 100 Other: Voiding Method Urinal Urinal - Labs CBC & Chem 7: 04/22/20 07:10 04/24/20 08:03 Labs: Abnormal Lab Results - Last 24 Hours (Table) 04/23/20 04/23/2004/23/21 Range/Units 11:59 17:09 20:29 POC Glucose (mg/dL) 205 H 205 H 143 H (75-99) mg/dL 04/24/20 Range/Units 06:53 POC Glucose (mg/dL) 157 H (75-99) mg/dL Microbiology - Last 24 Hours (Table) 04/22/20 07:10 Blood Culture Gram Stain - Preliminary Blood Blood Culture - Preliminary Presumptive MRSA 04/21/20 08:08 Blood Culture Gram Stain - Final Blood Blood Culture - Final Methicillin resist S. aureus 04/22/20 07:10 Blood Culture - Final Blood
--- NOTE | 2020-04-24 13:27 | P.PN ---
Progress Note - Text Progress Note Date: 04/24/20 HISTORY OF PRESENT ILLNESS This is a 59-year-old male patient followed for MRSA bacteremia with source of PermCath infection. Patient had CAT scan of the chest done today which revealed small bilateral pleural effusions. Clinical consideration for empyema. Compressive atelectasis versus consolidation from pneumonia in the dependent lung bases. No suspicious abscess. He continues to have positive blood cultures from April 23. Patient is continued on vancomycin, pharmacy dosing. Patient has been afebrile, heart rate 61, blood pressure 135/76, pulse ox 99% on 2 L nasal cannula. BUN 58 creatinine 2.18. PHYSICAL EXAMINATION Gen: This is a 59-year-old male patient, resting in bed and appears to be comfortable. No acute distress. HEENT: Head is atraumatic, normocephalic. Pupils equal, round. Sclerae is anicteric. NECK: Supple. No JVD. No lymphadenopathy. LUNGS: Clear to auscultation. No wheezes or rhonchi. No intercostal retractions. HEART: Regular rate and rhythm. ABDOMEN: Soft. Bowel sounds are present. No masses. No tenderness. ASSESSMENT Persistent MRSA bacteremia, source is permacath which has been discontinued Consider empyema on CAT scan of the chest End-stage renal disease on hemodialysis PLAN Continue vancomycin, pharmacy dosing Request Dr. Beverly to review CAT scan of the chest Repeat blood cultures in progress Further recommendations based upon patient's clinical course The above dictated assessment and findings were discussed with Dr. Presley. The impression and plan of care have been directed as dictated. Katelyn Wesley nurse practitioner acting as scribe for Dr. Presley.
[2020-04-24] MEDS ORDERED: SODIUM CHLORIDE 0.9% 250 ML IV ONE (15:39)
[2020-04-24] MEDS ORDERED: LIDOCAINE 1% INJ 10MG/ML (20 ML MDV) SQ ONE (16:09)
[2020-04-24 16:51] LABS: Glucose,Whole Blood 151 mg/dL (75-99)
--- NOTE | 2020-04-24 20:45 | OP ---
OPERATIVE REPORT PREOPERATIVE DIAGNOSIS: Acute on chronic renal failure. PROCEDURE: Ultrasound-guided 30 cm dialysis catheter placement via right femoral approach. PROCEDURE DESCRIPTION: The patient was brought to the energy systems laboratory director. Right groin was prepped and draped in usual sterile manner. Lidocaine 1% plain was infiltrated. Ultrasound-guided micropuncture was introduced into the right femoral vein. Micropuncture guidewire was passed. Then we passed a 4-[place] dilator. Then we passed a regular guidewire, which was parked in the inferior vena cava. The dilator was advanced and a 30 cm dialysis catheter was placed via right femoral approach. Flushed with heparin saline and hep-locked and secured with 3-0 nylon. Patient tolerated the procedure well. MMODL / IJN: [id number] /
[2020-04-24 22:10] LABS: Glucose,Whole Blood 98 mg/dL (75-99)
[2020-04-24] MEDS: MELATONIN 3 MG TABLET PO SCH (22:28)
--- NOTE | 2020-04-24 22:53 | IR ---
EXAMINATION TYPE: IR cvc insert non tunneled DATE OF EXAM: 04/24/2020 CLINICAL HISTORY: Central line insertion. TECHNIQUE: Fluoroscopy. COMPARISON: None. FINDINGS: Fluoroscopic guidance was provided during right central venous catheter insertion procedur e performed by Dr. Santizo. A total of 12 seconds of fluoroscopic time was utilized during the proce dure and 56 spot images was acquired. Images show access via right groin with subsequent insertion of IV catheter. IMPRESSION: As Above.
[2020-04-25 07:08] LABS: Glucose,Whole Blood 146 mg/dL (75-99)
[2020-04-25] MEDS: INSULIN ASPART (NovoLOG) 100 UNIT/ML VIAL SQ SCH ×7 (08:16→20:57)
[2020-04-25] MEDS: INSULIN DETEMIR (LEVEMIR) 100 UNIT/ML SYR SQ SCH (08:16)
[2020-04-25] MEDS: CLOPIDOGREL 75 MG TAB PO SCH (08:18)
[2020-04-25] MEDS: GABAPENTIN 100 MG CAP PO SCH ×3 (08:18→20:55)
[2020-04-25] MEDS: PANTOPRAZOLE 40 MG TABLET PO SCH (08:18)
[2020-04-25] MEDS: AMIODARONE 200 MG TAB PO SCH (08:19)
[2020-04-25] MEDS: allopurinoL 100 MG TAB PO SCH (08:19)
[2020-04-25] MEDS: hydrALAZINE HCL 25 MG TAB PO SCH ×3 (08:34→20:55)
[2020-04-25] MEDS: METOPROLOL TARTRATE 25 MG TAB PO SCH ×3 (08:34→20:55)
--- NOTE | 2020-04-25 09:29 | P.PN ---
Subjective Progress Note Date: 04/25/20 04/22/2020 I'm seeing the patient for a follow-up. The patient is still lethargic and on and off confused. He is able to some simple conversations. The patient has multiple medical problems and comorbidities. His post cardiac arrest. He has an incisional disease on hemodialysis, coronary artery disease, diabetes mellitus type 2, chronic anemia, and obstructive sleep apnea. He is a quite complicated case of staphylococcal sepsis/pneumonia. The patient is on vancomycin. No evidence of any endocarditis. The patient is afebrile and he is currently hemodynamically stable on room air oxygen. Note that, the patient is on hemodialysis for incisional disease. His hemodialysis catheter was removed due to the bacteremia and sepsis and a new hemodialysis catheter was inserted and subsequently removed on 04/21/2020. The most recent blood cultures from 04/21/2020 are still positive and the patient's catheter was again removed.. On 04/23/2020, the patient remains encephalopathic, probably related to underlying sepsis. His blood pressure is still positive for gram-positive cocci/MRSA. He does not have any catheters in place. Repeat blood culture was ordered on 04/22/2020. The previously obtained and removed catheter for dialysis was removed and the tip was sent for cultures and the results are still pending for that. Meanwhile, the patient's vancomycin trough is at 19.2. The dose being adjusted and monitored by pharmacy. He is afebrile. No chills. No fever. No shortness of breath. He is laying comfortably in bed. He is sleeping for most of the time. His last hemodialysis on Wednesday. A total of 1 L of fluid was removed. It seems that the patient has had intolerance another temporary dialysis catheter for another session of dialysis either today or tomorrow. This needs to be orchestrated and arranged by nephrology. The patient's white cell count is at 22.5 and the hemoglobin is at 7.5. BUN is a 51 with a creatinine of 5.0. The patient is seen today 04/24/2020 in follow-up on the regular medical floor. He remains encephalopathic. Blood cultures continued to show presumptive MRSA. Remains on vancomycin. Cultures of the dialysis catheter tip still pending. Remains with end-stage renal disease with treatments on Wednesday. Permacath had been removed. Plan is for placement of a new permacath once cleared by ID. Most recent creatinine 5.00 yesterday. Heart rate is controlled. Remains on amiodarone. 04/25/2020 on seeing the patient for a follow-up. As usual, he is still lethargic yet arousable and he follows commands. Due to his ongoing dialysis requirements, a temporary dialysis catheter was inserted in the right groin and the patient is currently undergoing hemodialysis. The plan is likely to remove the catheter following dialysis specially the patient is still bacteremic with staph aureus. He remains on vancomycin. He is afebrile this morning. A repeat CAT scan of the chest was done and showed moderate-sized bilateral pleural effusion right more than left and my plan is to drain the fluid to make sure there is noinfection or empyema in the right lung. This will be done after the patient is hemodialysis as the patient is going to undergo dialysis for the next 2 hours.. His primary cultures from 04/24/2020 is still positive for gram- positive cocci. Objective - Vital Signs Vital signs: Vital Signs Temp 97.7 F 04/25/20 08:00 Pulse 65 04/25/20 08:00 Resp 16 04/25/20 08:00 BP 165/61 04/25/20 08:00 Pulse Ox 98 04/25/20 08:00 Intake & Output 04/24/20 04/25/20 04/25/20 18:59 06:59 18:59 Intake Total 0 Output Total 1500 Balance 0 -1500 Intake: Oral 0 Output: Hemodialysis 1500 Other: Voiding Method Urinal Urinal # Voids 0 # Bowel Movements 0 - Exam GENERAL EXAM: Sleepy, but arousable to voice, currently on room air oxygen HEAD: Normocephalic/atraumatic. EYES: Normal reaction of pupils, equal size. Conjunctiva pink, sclera white. NOSE: Clear with pink turbinates. THROAT: No erythema or exudates. NECK: No masses, no JVD, no thyroid enlargement, no adenopathy. CHEST: No chest wall deformity. Symmetrical expansion. Right subclavian has been removed. LUNGS: Equal air entry some rhonchi, but without crackles or wheezes. Breath sounds equal bilaterally. CVS: Regular rate and rhythm, normal S1 and S2, no gallops, soft systolic murmur, loudest at the left midclavicular line fourth to fifth intercostal space, no rubs. Heart rate 65 bpm. ABDOMEN: Soft, nontender. No hepatosplenomegaly, normal bowel sounds, no guarding or rigidity. EXTREMITIES: No clubbing, no edema, no cyanosis, 2+ pulses and upper and lower extremities. Left upper arm AV shunt in place, with positive bruit and thrill MUSCULOSKELETAL: Muscle strength and tone normal. SPINE: No scoliosis or deformity SKIN: No rashes. CENTRAL NERVOUS SYSTEM: Patient is lethargic/sleepy, but does arouse. He is appropriate when he is awake. - Labs CBC & Chem 7: 04/22/20 07:10 04/24/20 08:03 Labs: Abnormal Lab Results - Last 24 Hours (Table) 04/24/20 04/24/20 04/24/20 Range/Units 08:03 11:18 16:49 Sodium 135 L (137-145) mmol/L Potassium 5.4 H (3.5-5.1) mmol/L BUN 58 H (9-20) mg/dL Creatinine 6.18 H (0.66-1.25) mg/dL Glucose 140 H (74-99) mg/dL POC Glucose (mg/dL) 128 H 151 H (75-99) mg/dL Calcium 8.3 L (8.4-10.2) mg/dL 04/25/20 Range/Units 07:05 Sodium (137-145) mmol/L Potassium (3.5-5.1) mmol/L BUN (9-20) mg/dL Creatinine (0.66-1.25) mg/dL Glucose (74-99) mg/dL POC Glucose (mg/dL) 146 H (75-99) mg/dL Calcium (8.4-10.2) mg/dL Microbiology - Last 24 Hours (Table) 04/24/20 08:03 Blood Culture Gram Stain - Preliminary Blood 04/24/20 08:03 Blood Culture - Final Blood 04/23/20 07:05 Blood Culture Gram Stain - Preliminary Blood Blood Culture - Preliminary Presumptive MRSA 04/22/20 07:10 Blood Culture Gram Stain - Final Blood Blood Culture - Final Methicillin resist S. aureus 04/21/20 15:45 Catheter Tip Culture - Final Catheter Tip Coagulase Negative Staph 04/23/20 07:05 Blood Culture - Final Blood Assessment and Plan Plan: 1 Acute hypoxemic respiratory failure, secondary to methicillin-resistant staph aureus sepsis, as well as acute diastolic CHF. The patient is currently on room air oxygen. The patient has recovered from his acute hypoxic respiratory failure. Subsequently, the patient was placed on 2 L has moderate-sized bilateral pleural effusion which is interval change compared to his earlier CAT scan and there is also some compressive atelectasis in the lung bases. The fluid needs to be drained for diagnostic purposes especially that the patient continues to be bacteremic with staph aureus. 2 sepsis secondary to Methicillin-resistant staph aureus bacteremia, and sepsis, likely secondary to his subclavian dialysis catheter, has been removed. YAYO is negative for regurgitation. Most recent blood culture from 04/13/2020 are still positive for gram-positive cocci, presumed MRSA and the patient remains on vancomycin. The most recent dialysis catheter was inserted in his groin was re moved on 04/21/2020 and no immediate plans to put a permacath as long as the patient is still bacteremic.. In view of his underlying septicemia, the patient remains encephalopathic. The patient is hemodynamically stable. Most recent blood cultures of been positive and the repeat blood cultures from 04/22/2020 From 04/24/2020 Are Still Positive for Staph. 3 Status post cardiac arrest, with asystole and/or pulseless electrical activity, brief, with 2 minutes of cardiopulmonary resuscitation. 4 Chronic end-stage renal disease, currently on hemodialysis, noncompliant. Currently undergoing hemodialysis through a temporary dialysis catheter in his right femoral vein 5 Recurrent falls. 6 History of coronary artery disease. 7 Diabetes mellitus, type II, with diabetic neuropathy and nephropathy. 8 Anemia of chronic disease. 9 Obstructive sleep apnea syndrome. 10 Morbid obesity. 11 Right second toe cellulitis. ReCovered 12 Congestive hepatopathy, improved. 13 Leukocytosis, secondary to staph sepsis. 14 Encephalopathy, likely secondary to sepsis. 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 Unfortunately the patient remains bacteremic. His scan of the chest showed bilateral pleural effusions right more than left and for that reason a diagnostic thoracentesis will be done to rule out any pleural space infection. This will be done after the patient completes his dialysis. Nephrology to organize another session of hemodialysis probably via another temporary dialysis catheter. He is currently undergoing hemodialysis through a temporary dialysis catheter. No active pulmonary or critical care issue this point in time.
[2020-04-25] MEDS: HYDROcodone/APAP 10-325MG 1 EACH TAB PO PRN (09:37)
[2020-04-25 09:44] LABS: Anisocytosis Slight; Basophils % (A) 0 %; Eosinophils # (A) 0.2 k/uL (0-0.7); Eosinophils % (A) 1 %; HCT 24.8 % (39.0-53.0); HGB 7.8 gm/dL (13.0-17.5); Hypochromasia Moderate; Lymphocytes # (A) 0.5 k/uL (1.0-4.8); Lymphocytes % (A) 4 %; MCH 28.1 pg (25.0-35.0); MCHC 31.3 g/dL (31.0-37.0); MCV 89.6 fL (80.0-100.0); Mean Platelet Volume 8.1; Monocytes # (A) 0.7 k/uL (0-1.0); Monocytes % (A) 4 %; Neutrophils # (A) 13.2 k/uL (1.3-7.7); Neutrophils % (A) 89 %; Platelet Count 242 k/uL (150-450); RBC 2.77 m/uL (4.30-5.90); RDW 17.3 % (11.5-15.5); WBC 14.8 k/uL (3.8-10.6)
[2020-04-25 10:15] LABS: Calcium 8.3 mg/dL (8.4-10.2); Potassium 4.8 mmol/L (3.5-5.1)
[2020-04-25] MEDS: hydrOXYzine pamoate 25 MG CAP PO PRN (10:28)
--- NOTE | 2020-04-25 11:24 | P.PN ---
Subjective Progress Note Date: 04/25/20 HISTORY OF PRESENT ILLNESS 59 years old male patient of Dr. Mckeon with past medical history of end-stage renal disease on hemodialysis Wednesday and Wednesday, coronary artery disease post angioplasty, and stent placement last catheterization was February 09 with stent of the left circumflex and proximal LAD, atrial fibrillation, diabetes, GERD, hyperlipidemia, hypertension. He does have intermittent lesion along the mid LAD and follows Dr. Hinojosa on as outpatient. Patient was last admitted in February 16 with chest pain and unstable angina, comes in this time with change in mental status, and multiple falls at home. Patient is unable to provide any history due to increased drowsiness. History obtained from the chart. It appears patient had a fall in the bathroom as his leg gave out. He denies any dizziness or syncope episode. CT of the head was obtained that showed no acute lesions. Patient missed 2 dialysis appointment, last hemodialysis was 1 week ago. In the ER patient's blood pressure was 202/94 temp of 99 pulse 91 and respiratory rate 19 on assessment of patient's lab patient had a any, hemoglobin 10.7 hematocrit 32.4 sodium 133 chloride 92 bicarb 21 BUN 86 creatinine 7.56 glucose 237. Urinalysis does suggest leukocytosis with positive blood and positive protein. Urine culture was sent. On evaluation today patient is found to be lying in bed. He is unable to provide any history. Patient did Gabapentin, Dilaudid and 1 L of bolus of IV fluids. We will hold pain medication. Decrease gabapentin 100 3 times a day. Patient will be started on levofloxacin renally adjusted to 250 every 48 hours. Ativan reduced to 0.5 mg 3 times a day. Hold off diuretics. Nephrology consulted At 2:30 this afternoon patient became unresponsive as patient was hooked to the dialysis. The A team responded to the patient did mention patient was pulseless. A brief CPR was done for 2 minutes, with return of spontaneous circulation and return of the pulse with no need of epinephrine. Patient's blood pressure was found to be low. Cardiology consult will be placed. Echo will be ordered. Patient was noted to be in atrial fibrillation and was transferred to the ICU on nonrebreather mask. Another attempt was made to start the hemodialysis while patient was arousable and follows all commands he was found to be more lethargic. Patient's blood pressure dropped on hemodialysis and became unresponsive not responding to sternal rub. Was noted to be in A. fib with RVR. Patient was placed on BiPAP intubation was not required. 04/12 patient currently in the ICU. Vitals are stable with temp of 98 pulse 67 and respiratory rate 19 and blood pressure 156/71 oxygen saturation 95% on 40% on BiPAP. Patient has leukocytosis of 18 improved from 20 hemoglobin 9.9, sodium 134 chloride 97 bicarb 19 BUN 104 creatinine 8.15 phosphorus 10.7 and total bilirubin 1.7 AST 2932 ALT 2727 alkaline phosphatase 449. Cardiology evaluated the patient thinks patient's episode of unresponsiveness could be vasovagal from low blood pressure. Continue to monitor patient's blood pressure with possible orthostatics when patient is stable. Metoprolol dose increased to 25 twice a day. Initiated on amiodarone 100 mg daily patient is being dialyzed today with minimal ultrafiltration. We will hold hydralazine and Cozaar for systolic less than 125. Patient currently off pressors. Spoke to patient's at bedside who mentioned patient has been falling for the past few months. He had MRI of the lower back done as outpatient that suggested severe spinal stenosis. Patient was set up for PT as outpatient but has been forgetting to often due to weakness in his legs. He has a outpatient appointment pending with an orthopedic surgery 04/13: Patient still in the ICU , on BiPAP, he still have less responsiveness, quite hypertensive today back on vasopressor. Patient was diagnosed tolerate hemodialysis for long had only 1 hour, still currently in significant encephalopathy status, continue IV antibiotic for now there is a small gang renous spot on the right second toe. 04/14: Patient is off vasopressor, still on BiPAP, still running back and forth between tachycardia and A. fib. No hemodialysis done today. Patient is very confused is taking his lines And all attachment out he required a sitter today. 04/15: Patient is off vasopressor, off BiPAP, he is more awake alert today, he is more hemodynamically stable. He is on hemodialysis and blood pressure is holding well so far should be able to do full cycle of hemodialysis today. Source of infection is still unclear suspect to be dialysis catheter which might be pulled out to place another catheter either in the femoral area or use the fistula graft had in the left forearm. 04/16: Patient evaluated in the ICU. Patient is arousable but easily drifts back to sleep. He had dialysis yesterday, with possible plans for dialysis again today due to elevated BUN/creatinine. Possible source of infection still unclear and suspected to be dialysis catheter. Nephrology plans on repeat blood cultures via dialysis catheter, if positive will discuss discontinuing the IJ pe rmacath. Infectious disease added Cefepime for worsening white count, and continue on Vancomycin. Repeat chest x-ray shows cardiomegaly with left basilar atelectasis. Plans to transfer of the ICU today to select care unit. 04/17: Patient's right IJ permacath dialysis catheter was removed yesterday. Patient's nurse reports that there was pus on the end and this has been cultured. Patient remains in the intensive care unit but has been downgraded to cardiac stepdown unit. Patient has been afebrile, heart rate 57, blood pressure 109/59, pulse ox 100% on 2 L nasal cannula. 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 He does have short bouts of atrial fibrillation most often noted when he drinks cold liquids. Repeat blood work reveals WBC of 32, hemoglobin 9.6, platelet count 285. BUN 47 creatinine 3.63, potassium 4.3. Blood sugars running between 85 and 166. Total bilirubin 1.3, AST 98, ALT 517, alkaline phosphatase 391. Liver function tests are improved from yesterday. Chest x-ray today reveals cardiomegaly. Interstitial density slightly increased. Correlate to exclude developing pulmonary vascular congestion. Left base remains under penetrated area and some underlying atelectasis or infiltrate or effusion possible. 04/18: Patient is seen today on the cardiac stepdown unit. Patient is awake and answering questions but speech is slow and slurred. Reviewed plan of care with him and he verbalizes understanding. Patient is afebrile, heart rate 66, blood pressure 123/55, pulse ox 99% on 2 L nasal cannula. Catheter tip culture is showing presumptive MRSA. Repeat blood cultures have been ordered to see if bacteremia is clearing. Patient is currently on vancomycin pharmacy dosing and cefepime. YAYO performed by Dr. Bowie reveals no evidence of infective endocardit is. No evidence of intracardiac valves vegetation or abscess. Aortic sclerosis, trileaflet mildly thickened with trace aortic insufficiency. Thickened anterior posterior mitral leaflets with moderate mitral regurgitation. Moderate tricuspid regurgitation. Moderate pulmonic insufficiency. Mild biatrial enlargement. Intact anterior atrial septum and intact left atrial appendage without thrombus. Low normal LV with EF of 50%. No pericardial effusion. 04/19: Patient had worsening of his mental status during the night and remains confused worse than yesterday. Leandra is on hold this morning for temporary line placement for dialysis. Dr. Nguyen is planning on hemodialysis today and tomorrow. Patient is only able to state that he feels miserable and terrible but nothing specific. He has been afebrile, heart rate 74, blood pressure 161/75, pulse ox 91% on room air. WBC is 28.4, hemoglobin 8.6, platelet count 285. CO2 19, BUN 75 and creatinine 5.85. Blood sugars running between 205 and 235. Vancomycin level XXI.5. Repeat blood cultures obtained on April 18 are also positive. CAT scan of the abdomen and pelvis with contrast revealed moderate anasarca. Small bilateral pleural effusions with adjacent atelectasis superimposed infiltrates not excluded. Mild urinary bladder wall thickening, correlate for cystitis. No significant contrast excretion into the renal colle ction system on the delayed images. No significant intra-abdominal pelvic abnormality. Tetracycline has recommended continuing vancomycin. 04/20: Patient had a temporary dialysis catheter placed in the right groin and underwent hemodialysis treatment yesterday but due to patient's restlessness it was not a good treatment. His mental status however is significantly improved today. We will plan to order Dilaudid 1 mg before dialysis treatment and if necessary Valium 5 mg can be given. Patient's nurses been updated. Dr. Wills is planning to remove dialysis catheter following treatment today. Blood cultures remain positive including those drawn on April 19. Repeat blood cultures ordered for tomorrow. Dr. Presley has been updated. He has been afebrile, heart rate 65, blood pressure 134/72, pulse ox 97% on 2 L nasal cannula. Blood sugars running between 90-162. Vancomycin level XVIII. 04/21: She underwent dialysis yesterday with removal of a half a liter of fluid as was planned. Patient is scheduled for another treatment today. Patient states that she is feeling better. Mental status is improved from 2 days ago. Plan is to remove dialysis catheter after today's treatment. His blood cultures that were obtained yesterday are positive. Patient has been afebrile, heart rate 65, blood pressure 118/66, pulse ox 94% on 2 L nasal cannula. Creatinine 4.19. Blood sugars are running between 99 and 146. Patient did well with Dilaudid given 1 mg prior to dialysis treatment. We will plan to repeat this today. 04/22: Patient had dialysis yesterday and dialysis catheter was subsequently removed. Repeat blood cultures obtained on April 21 are also positive. Patient denies any new complaints today. No chest pain, shortness of breath. Patient continues to have some confusion. Losartan has been discontinued by nephrology. He has been afebrile, heart rate 62, blood pressure 126/81, pulse ox 99% on 3 L nasal cannula. Repeat blood work reveals W BC at 22.5, hemoglobin 7.5, platelet count 215. Electrolytes normal, BUN 37 creatinine 3.9. Blood sugars running between 86 and 157. Total bilirubin 0.7, AST 23, ALT 107, alkaline phosphatase 226. Vancomycin level XIX.2. 04/23: Patient continues to be confused more so than yesterday. That blood sugars have been elevated later in the afternoon and evening and scheduled NovoLog added to his regime. Repeat blood work reveals sodium of 135, potassium 4.9, chloride 101, CO2 24, BUN 51 creatinine 5. Blood sugars are running between 184 and 263. Repeat blood culture has been obtained today and is pending. 04/24: She appears to be mentally more alert today. He is sleeping and awakens easily. He is having difficulty sleeping at nighttime. Melatonin increased to 9 mg at bedtime. Vistaril discontinued. We have ordered a CAT scan of the chest to rule out abscess. CAT scan of the chest revealed small bilateral pleural effusions. Clinical consideration for empyema. Compressive atelectasis versus consolidation from pneumonia in the dependent lung bases. No suspicious abscess. He continues to have positive blood cultures pharmacy is dosing vancomycin at this point. She and is complaining of chest wall pain when he coughs at site of previous catheter. 04/25: Patient had temporary else's catheter placed yesterday afternoon with Dr. Santizo. Patient is undergoing hemodialysis today. He complains of not being able to sleep with no improvement with melatonin. Trazodone 25 mg at bedtime added. Dr. Beverly is planning to do a right-sided diagnostic thoracentesis after dialysis treatment. He is continued on vancomycin. Patient has been afebrile, heart rate 63, blood pressure 147/65, pulse ox 90% on 2 L nasal cannula. Blood sugars are running between 98 and 151. Blood cultures from Mar ch 3 are also positive. Vistaril resumed per patient's request for itching while having dialysis treatment. REVIEW OF SYSTEMS Constitutional: No fever, no chills, no night sweats. No weight change. Reported weakness, reported fatigue reported lethargy. Reported daytime sleepiness. EENT: No headache. No blurred vision or double vision, no loss of vision. No loss of Hearing, no ringing in the ears, no dizziness. No nasal drainage or congestion. No epistaxis. No sore throat. Lungs: No shortness of breath, cough, no sputum production. No wheezing. Cardiovascular: No chest pain, no lower extremity edema. No palpitations. No paroxysmal nocturnal dyspnea. No orthopnea. No lightheadedness or dizziness. No syncopal episodes. Abdominal: No abdominal pain. No nausea, vomiting. No diarrhea. No constipation. No bloody or tarry stools. No loss of appetite. Genitourinary: No dysuria, increased frequency, urgency. No urinary retention. Musculoskeletal: No myalgias. No muscle weakness, no gait dysfunction, no frequent falls. No back pain. No neck pain. Integumentary: No wounds, no lesions. No rash or pruritus. No unusual bruising. No change in hair or nails. Neurologic: No aphasia. No facial droop. Reported confusion. No head injury. No headache. No paralysis. No paresthesia. Psychiatric: No depression. No anxiety. Reports insomnia Endocrine: Noted abnormal blood sugars. PHYSICAL EXAMINATION Gen: This is a 59-year-old male patient seen on the cardiac stepdown unit. He is resting in bed and appears to be in no acute respiratory distress. HEENT: Head is atraumatic, normocephalic. Pupils equal, round. Sclerae is anicteric. NECK: Supple. No JVD. No lymphadenopathy. No thyromegaly. LUNGS: Clear to auscultation. No wheezes or rhonchi. No intercostal retractions. HEART: Regular rate and rhythm. 2/6 systolic murmur. ABDOMEN: Soft. Bowel sounds are present. No masses. No tenderness. EXTREMITIES: No pedal edema. No calf tenderness. Right groin temporary dialysis catheter. NEUROLOGICAL: Patient is oriented to person and place. He is able to converse, answer questions and follow commands. ASSESSMENT AND PLAN 1. Sepsis and MRSA bacteremia secondary to dialysis catheter. Permacath has been removed as of yesterday and culture of tip done. Patient is followed by Dr. Presley and continued on vancomycin. Temporary catheter was removed yesterday, planned for permanent catheter placement once blood cultures are clear. Blood cultures remain positive from 04/21. CAT scan of the chest as above. Noted consideration for empyema. Dr. Beverly is planning on right- sided diagnostic thoracentesis. At this time, plan to continue vancomycin. 2. Metabolic encephalopathy secondary to sepsis, uremia, pain medication and benzodiazepines improving. Lorazepam has been discontinued. 3. End-stage renal disease on hemodialysis. Permanent catheter will be placed once bacteremia is cleared. Consult with nephrology and vascular surgery appreciated. Continue PhosLo 1334 mg 3 times daily. 2. Temporary dialysis catheter for hemodialysis today 4. Fall secondary to degenerative disc disease and spinal stenosis. MRI as an outpatient revealed severe spinal stenosis. Patient has outpatient orthopedic evaluation pending. PT and OT following. 5. Acute syncopal episode most likely vasovagal, patient had brief CPR. Cardiology consult appreciated. 6. History of coronary artery disease with previous PTCA to LAD and circumflex. Lexiscan was negative on previous admission. Continue Plavix 75 mg daily, Imdur 30 mg daily, Lopressor 25 mg in the morning and evening. 7. Paroxysmal atrial fibrillation. Continue eliquis 2.5 mg twice daily and metoprolol, amiodarone at 200 mg daily. (Eliquis on hold) 8. Ischemic cardiomyopathy. 9. Diabetes mellitus type 2, insulin requiring, uncontrolled with hyperglycemia. Continue Levemir 20 units daily, add NovoLog scale 3 units with meals and continue NovoLog scale before meals and at bedtime, 10. Diabetic neuropathy. Continue gabapentin 100 mg 3 times daily. 11. Hypertension. Continue hydralazine 25 mg 3 times daily, losartan has been discontinued by nephrology. 12. Anemia of chronic disease. Continue to monitor. 13. GI prophylaxis. Continue Protonix. 14. DVT prophylaxis. Continue eliquis. DISCHARGE PLAN Marperry. Impression and plan of care have been directed as dictated by the signing physician. Katelyn Wesley nurse practitioner acting as scribe for signing p marie. Objective - Vital Signs Vital signs: Vital Signs Temp 97.7 F 04/25/20 01:27 Pulse 63 04/25/20 01:27 Resp 16 04/25/20 01:27 BP 147/65 04/25/20 01:27 Pulse Ox 98 04/25/20 07:30 Intake & Output 04/24/20 04/25/20 04/25/20 18:59 06:59 18:59 Intake Total 0 Output Total 1500 Balance 0 -1500 Intake: Oral 0 Output: Hemodialysis 1500 Other: Voiding Method Urinal Urinal # Voids 0 # Bowel Movements 0 - Labs CBC & Chem 7: 04/25/20 06:33 04/25/20 06:33 Labs: Abnormal Lab Results - Last 24 Hours (Table) 04/24/20 04/24/20 04/24/20 Range/Units 08:03 11:18 16:49 Sodium 135 L (137-145) mmol/L Potassium 5.4 H (3.5-5.1) mmol/L BUN 58 H (9-20) mg/dL Creatinine 6.18 H (0.66-1.25) mg/dL Glucose 140 H (74-99) mg/dL POC Glucose (mg/dL) 128 H 151 H (75-99) mg/dL Calcium 8.3 L (8.4-10.2) mg/dL 04/25/20 Range/Units 07:05 Sodium (137-145) mmol/L Potassium (3.5-5.1) mmol/L BUN (9-20) mg/dL Creatinine (0.66-1.25) mg/dL Glucose (74-99) mg/dL POC Glucose (mg/dL) 146 H (75-99) mg/dL Calcium (8.4-10.2) mg/dL Microbiology - Last 24 Hours (Table) 04/24/20 08:03 Blood Culture Gram Stain - Preliminary Blood 04/24/20 08:03 Blood Culture - Final Blood 04/23/20 07:05 Blood Culture Gram Stain - Preliminary Blood Blood Culture - Preliminary Presumptive MRSA 04/22/20 07:10 Blood Culture Gram Stain - Final Blood Blood Culture - Final Methicillin resist S. aureus 04/21/20 15:45 Catheter Tip Culture - Final Catheter Tip Coagulase Negative Staph 04/23/20 07:05 Blood Culture - Final Blood
[2020-04-25 12:04] LABS: Glucose,Whole Blood 83 mg/dL (75-99)
[2020-04-25] MEDS: ISOSORBIDE MONONITRATE ER 30 MG TAB.ER.24H PO SCH (12:10)
--- NOTE | 2020-04-25 12:19 | P.PN ---
Subjective Patient is seen in follow-up for end-stage renal disease. He is maintained on hemodialysis on Wednesday schedule. He is being treated for MRSA bacteremia. Permacath was removed on April 17. Groin catheter was placed April 24. He underwent dialysis yesterday and is currently undergoing hemodialysis. Remains somewhat confused. Vital signs are stable. General: The patient appeared well nourished and normally developed. HEENT: Head exam is unremarkable. Neck is without jugular venous distension. LUNGS: Breath sounds decreased. HEART: Rate and Rhythm are regular. ABDOMEN: Soft, nontender. EXTREMITITES: No edema. Objective - Vital Signs Vital signs: Vital Signs Temp 97.6 F 04/25/20 12:11 Pulse 75 04/25/20 12:11 Resp 20 04/25/20 12:11 BP 131/64 04/25/20 12:11 Pulse Ox 98 04/25/20 08:00 Intake & Output 04/24/20 04/25/20 04/25/20 18:59 06:59 18:59 Intake Total 0 Output Total 1500 1500 Balance 0 -1500 -1500 Intake: Oral 0 Output: Hemodialysis 1500 1500 Other: Voiding Method Urinal Urinal Urinal # Voids 0 # Bowel Movements 0 - Labs CBC & Chem 7: 04/25/20 06:33 04/25/20 06:33 Labs: Abnormal Lab Results - Last 24 Hours (Table) 04/24/20 04/25/20 04/25/20 Range/Units 16:49 06:33 06:33 WBC 14.8 H (3.8-10.6) k/uL RBC 2.77 L (4.30-5.90) m/uL Hgb 7.8 L (13.0-17.5) gm/dL Hct 24.8 L (39.0-53.0) % RDW 17.3 H (11.5-15.5) % Neutrophils # 13.2 H (1.3-7.7) k/uL Lymphocytes # 0.5 L (1.0-4.8) k/uL Sodium 135 L (137-145) mmol/L BUN 39 H (9-20) mg/dL Creatinine 4.49 H (0.66-1.25) mg/dL Glucose 133 H (74-99) mg/dL POC Glucose (mg/dL) 151 H (75-99) mg/dL Calcium 8.3 L (8.4-10.2) mg/dL 04/25/20 Range/Units 07:05 WBC (3.8-10.6) k/uL RBC (4.30-5.90) m/uL Hgb (13.0-17.5) gm/dL Hct (39.0-53.0) % RDW (11.5-15.5) % Neutrophils # (1.3-7.7) k/uL Lymphocytes # (1.0-4.8) k/uL Sodium (137-145) mmol/L BUN (9-20) mg/dL Creatinine (0.66-1.25) mg/dL Glucose (74-99) mg/dL POC Glucose (mg/dL) 146 H (75-99) mg/dL Calcium (8.4-10.2) mg/dL Microbiology - Last 24 Hours (Table) 04/24/20 08:03 Blood Culture Gram Stain - Preliminary Blood 04/24/20 08:03 Blood Culture - Final Blood 04/23/20 07:05 Blood Culture Gram Stain - Preliminary Blood Blood Culture - Preliminary Presumptive MRSA 04/22/20 07:10 Blood Culture Gram Stain - Final Blood Blood Culture - Final Methicillin resist S. aureus 04/21/20 15:45 Catheter Tip Culture - Final Catheter Tip Coagulase Negative Staph 04/23/20 07:05 Blood Culture - Final Blood Assessment and Plan Plan: Assessment: 1. End-stage renal disease maintained on hemodialysis on Wednesday schedule. 2. MRSA bacteremia secondary to permacath infection status post removal on April 17. 3. Chronic kidney disease mineral bone disease maintained on PhosLo. 4. Hypertension with chronic kidney disease. Controlled. 5. Diabetes mellitus. 6. A. fib maintained on amiodarone and Lopressor. 7. Anemia of chronic kidney disease maintained on Aranesp. 8. Hyperkalemia secondary to chronic kidney disease. Improved postdialysis. Plan: Currently seen while undergoing hemodialysis. Plan for another treatment tomorrow. Groin dialysis catheter will be removed after dialysis tomorrow. Patient will need a permacath once cleared by ID. Monitor vancomycin levels. Target level near 15. Continue to hold Cozaar for now. Case discussed with infectious disease.
--- NOTE | 2020-04-25 14:07 | P.PCN ---
Date of Procedure: 04/25/20 Preoperative Diagnosis: Right-sided pleural effusion Postoperative Diagnosis: Right-sided pleural effusion Procedure(s) Performed: Right-sided thoracentesis Anesthesia: local Surgeon: Danny Beverly Estimated Blood Loss (ml): 0 Pathology: other Condition: stable Disposition: floor Operative Findings: A time out was performed and the chest x-ray was reviewed, the appropriate side was confirmed and marked. My hands were washed immediately prior to the procedure. I wore a surgical cap, mask with protective eyewear, sterile gown and sterile gloves throughout the procedure. The patient was prepped and draped in a sterile manner using chlorhexidine scrub after the appropriate level was percussed and confirmed by ultrasound. 1% lidocaine was used to anesthesize the skin, subcutaneous tissue, superior aspect of the rib periosteum and parietal pleura. A finder needle was then introduced over the superior aspect of the rib to locate the pleural fluid; 2colored fluid was aspirated at a depth of approximately 2 cm. A 10-blade scalpel was used to dion the skin at the insertio n site. The [id number] needle was then introduced through the skin incision into the pleural space using negative aspiration pressure and the red colometric indicator to confirm appropriate positioning of the needle. The thoracentesis catheter was then threaded without difficulty. 500 ml of turbid colored fluid was removed without difficulty. The catheter was then removed. No immediate complications were noted during the procedure. A post-procedure chest x-ray is pending at the time of this note. The fluid will be sent for studies. Estimated blood loss is 0cc
--- NOTE | 2020-04-25 14:17 | XR ---
EXAMINATION TYPE: XR chest 1V portable DATE OF EXAM: 04/25/2020 CLINICAL HISTORY: Right-sided thoracentesis. TECHNIQUE: Single AP portable semiupright view of the chest is obtained. COMPARISON: Chest CT from one day earlier. Chest x-ray April 17, 2020. FINDINGS: No pneumothorax after right-sided thoracentesis. Right lung is clear. Persistent left basi lar opacity. Underlying cardiomegaly with atherosclerotic change aortic knob. Multilevel spurring in the mid to lower thoracic spine. IMPRESSION: Improved right-sided pleural effusion after thoracentesis. No pneumothorax. Persistent ar terial megaly and small left pleural effusion with associated left basilar infiltrate and/or atelecta sis.
[2020-04-25 16:08] LABS: Appearance,BF Hazy; Nucleated Cells, Body Fluid 230 /uL; RBC, Body Fluid 1095 /uL
[2020-04-25 16:10] LABS: Mononuclear WBC,Body Fluid 60 %; Polynuclear WBC,Body Fluid 40 %; Total Cells Counted,Body Fluid 100
[2020-04-25 17:00] LABS: Glucose,Whole Blood 67 mg/dL (75-99)
[2020-04-25 17:16] LABS: Glucose,Whole Blood 70 mg/dL (75-99)
[2020-04-25] MEDS: traZODone HCL 50 MG TAB PO SCH ×2 (20:07→20:55)
[2020-04-25 20:45] LABS: Glucose,Whole Blood 176 mg/dL (75-99)
[2020-04-25] MEDS: MELATONIN 3 MG TABLET PO SCH (20:55)
--- NOTE | 2020-04-25 23:34 | PN ---
PROGRESS NOTE DATE OF SERVICE: 04/25/2020 REASON FOR FOLLOWUP: MRSA bacteremia secondary to PermCath infection. INTERVAL HISTORY: Patient is currently afebrile. Patient is breathing comfortably. Denies having any chest pain or shortness of breath. Occasional cough. No abdominal pain. No diarrhea. PHYSICAL EXAMINATION: Blood pressure 170/72 with a pulse of 73, temperature 97.8. He is 100% on 2 L nasal cannula. General description: The patient is a middle-aged male lying in bed in no distress. Respiratory system: Unlabored breathing, decreased breath sounds in the bases. No wheeze. Heart S1, S2. Regular rate and rhythm. ABDOMEN: Soft, no tenderness. LABS: The pleural fluid did not show significant white count. DIAGNOSTIC IMPRESSION AND PLAN: Patient with MRSA bacteremia persistent likely related to his Perm-A-Cath that has been discontinued now with persistent bacteremia on vancomycin, likely vancomycin failure. Antibiotic will be adjusted to daptomycin 8 mg/kg. Blood cultures will be repeated daily to document clearance of his bacteremia and continue supportive care. MMODL / IJN: [id number] /
[2020-04-26] MEDS: DAPTOmycin 500 MG in SODIUM CHLORIDE 0.9% 50 ML IVPB SCH (00:14)
[2020-04-26 00:40] LABS: Total Protein, Body Fluid 1390 mg/dL
[2020-04-26 01:13] LABS: BUN/Creat Ratio 9.36 Ratio (12.00-20.00)
[2020-04-26 01:29] LABS: Glucose, BF Source Pleural Fluid; Glucose, Body Fluid 91 mg/dL; LDH, Body Fluid Source Pleural Fluid
[2020-04-26] MEDS: HYDROcodone/APAP 10-325MG 1 EACH TAB PO PRN (02:18)
[2020-04-26 07:03] LABS: African American GFR (CKD) 19 (>60 ml/min/1.73 sqM); Anion Gap 9 mmol/L; Blood Urea Nitrogen 32 mg/dL (9-20); Calcium 8.1 mg/dL (8.4-10.2); Carbon Dioxide 27 mmol/L (22-30); Chloride 98 mmol/L (98-107); Glucose 171 mg/dL (74-99); Non-African American GFR(CKD) 17 (>60 ml/min/1.73 sqM); Potassium 4.7 mmol/L (3.5-5.1); Sodium 134 mmol/L (137-145)
[2020-04-26 07:06] LABS: Glucose,Whole Blood 192 mg/dL (75-99)
[2020-04-26] MEDS: INSULIN ASPART (NovoLOG) 100 UNIT/ML VIAL SQ SCH ×7 (07:47→21:19)
[2020-04-26] MEDS: INSULIN DETEMIR (LEVEMIR) 100 UNIT/ML SYR SQ SCH (07:48)
[2020-04-26] MEDS: AMIODARONE 200 MG TAB PO SCH (07:49)
[2020-04-26] MEDS: GABAPENTIN 100 MG CAP PO SCH ×3 (07:50→21:22)
[2020-04-26] MEDS: CLOPIDOGREL 75 MG TAB PO SCH (07:50)
[2020-04-26] MEDS: ISOSORBIDE MONONITRATE ER 30 MG TAB.ER.24H PO SCH (07:50)
[2020-04-26] MEDS: PANTOPRAZOLE 40 MG TABLET PO SCH (07:50)
[2020-04-26] MEDS: hydrALAZINE HCL 25 MG TAB PO SCH ×3 (07:50→21:22)
[2020-04-26] MEDS: allopurinoL 100 MG TAB PO SCH (07:50)
[2020-04-26] MEDS: METOPROLOL TARTRATE 25 MG TAB PO SCH ×2 (07:50→21:23)
[2020-04-26] MEDS ORDERED: VANCOMYCIN 1,500 MG in SODIUM CHLORIDE 0.9% 250 ML IVPB ONE (08:00)
[2020-04-26 08:55] LABS: Basophils # (A) 0.05 X 10*3/uL (0.00-0.10); Basophils % (A) 0.4 %; Eosinophils # (A) 0.11 X 10*3/uL (0.04-0.35); Eosinophils % (A) 0.9 %; HCT 23.6 % (39.6-50.0); HGB 7.2 g/dL (13.0-17.0); Lymphocytes # (A) 0.54 X 10*3/uL (0.90-5.00); Lymphocytes % (A) 4.5 %; MCH 27.1 pg (27.0-32.0); MCHC 30.5 g/dL (32.0-37.0); MCV 88.7 fL (80.0-97.0); Mean Platelet Volume 10.4 fL (9.5-12.2); Monocytes # (A) 0.91 X 10*3/uL (0.20-1.00); Monocytes % (A) 7.7 %; Neutrophils # (A) 10.11 X 10*3/uL (1.80-7.70); Neutrophils % (A) 85.2 %; Platelet Count 183 X 10*3/uL (140-440); RBC 2.66 X 10*6/uL (4.40-5.60); RDW 17.6 % (11.5-14.5); WBC 11.87 X 10*3/uL (4.50-10.00)
--- NOTE | 2020-04-26 11:22 | P.PN ---
Subjective Patient is seen in follow-up for end-stage renal disease. He is maintained on hemodialysis on Wednesday schedule. He is being treated for MRSA bacteremia. Permacath was removed on April 17. Groin catheter was placed April 24. Scheduled to undergo another treatment of hemodialysis today. Remains tired and somewhat confused. Vital signs are stable. General: The patient appeared well nourished and normally developed. HEENT: Head exam is unremarkable. Neck is without jugular venous distension. LUNGS: Breath sounds decreased. HEART: Rate and Rhythm are regular. ABDOMEN: Soft, nontender. EXTREMITITES: No edema. Objective - Vital Signs Vital signs: Vital Signs Temp 97.8 F 04/26/20 06:45 Pulse 63 04/26/20 06:45 Resp 18 04/26/20 06:45 BP 116/61 04/26/20 06:45 Pulse Ox 95 04/26/20 06:45 Intake & Output 04/25/20 04/26/20 04/26/20 18:59 06:59 18:59 Intake Total 500 50 Output Total 2500 Balance -2000 50 Intake: Oral 500 50 Output: Urine 1000 Hemodialysis 1500 Other: Voiding Method Urinal Urinal - Labs CBC & Chem 7: 04/26/20 06:19 04/26/20 06:19 Labs: Abnormal Lab Results - Last 24 Hours (Table) 04/25/20 04/25/20 04/25/20 Range/Units 06:33 16:59 17:15 WBC (4.50-10.00) X 10*3/uL RBC (4.40-5.60) X 10*6/uL Hgb (13.0-17.0) g/dL Hct (39.6-50.0) % MCHC (32.0-37.0) g/dL RDW (11.5-14.5) % Absolute Nucleated RBC (0.00-0.00) X 10*3/uL Immature Gran # (0.00-0.04) X 10*3/uL Neutrophils # (1.80-7.70) X 10*3/uL Lymphocytes # (0.90-5.00) X 10*3/uL NRBC/100 WBC Diff (0.0-0.0) /100 WBCS Sodium (137-145) mmol/L BUN (9-20) mg/dL Creatinine (0.66-1.25) mg/dL BUN/Creatinine Ratio 9.36 L (12.00-20.00) Ratio Glucose (74-99) mg/dL POC Glucose (mg/dL) 67 L 70 L (75-99) mg/dL Calcium (8.4-10.2) mg/dL 04/25/20 04/26/20 04/26/20 Range/Units 20:42 06:19 06:19 WBC 11.87 H (4.50-10.00) X 10*3/uL RBC 2.66 L (4.40-5.60) X 10*6/uL Hgb 7.2 L (13.0-17.0) g/dL Hct 23.6 L (39.6-50.0) % MCHC 30.5 L (32.0-37.0) g/dL RDW 17.6 H (11.5-14.5) % Absolute Nucleated RBC 0.02 H (0.00-0.00) X 10*3/uL Immature Gran # 0.15 H (0.00-0.04) X 10*3/uL Neutrophils # 10.11 H (1.80-7.70) X 10*3/uL Lymphocytes # 0.54 L (0.90-5.00) X 10*3/uL NRBC/100 WBC Diff 0.2 H (0.0-0.0) /100 WBCS Sodium 134 L (137-145) mmol/L BUN 32 H (9-20) mg/dL Creatinine 3.69 H (0.66-1.25) mg/dL BUN/Creatinine Ratio (12.00-20.00) Ratio Glucose 171 H (74-99) mg/dL POC Glucose (mg/dL) 176 H (75-99) mg/dL Calcium 8.1 L (8.4-10.2) mg/dL 04/26/20 Range/Units 06:49 WBC (4.50-10.00) X 10*3/uL RBC (4.40-5.60) X 10*6/uL Hgb (13.0-17.0) g/dL Hct (39.6-50.0) % MCHC (32.0-37.0) g/dL RDW (11.5-14.5) % Absolute Nucleated RBC (0.00-0.00) X 10*3/uL Immature Gran # (0.00-0.04) X 10*3/uL Neutrophils # (1.80-7.70) X 10*3/uL Lymphocytes # (0.90-5.00) X 10*3/uL NRBC/100 WBC Diff (0.0-0.0) /100 WBCS Sodium (137-145) mmol/L BUN (9-20) mg/dL Creatinine (0.66-1.25) mg/dL BUN/Creatinine Ratio (12.00-20.00) Ratio Glucose (74-99) mg/dL POC Glucose (mg/dL) 192 H (75-99) mg/dL Calcium (8.4-10.2) mg/dL Microbiology - Last 24 Hours (Table) 04/25/20 06:33 Blood Culture Gram Stain - Preliminary Blood 04/25/20 13:40 Gram Stain - Preliminary Pleural Fluid Body Fluid Culture - Preliminary 04/25/20 06:33 Blood Culture - Final Blood 04/25/20 13:40 Anaerobic Culture - Preliminary Pleural Fluid 04/24/20 08:03 Blood Culture Gram Stain - Preliminary Blood Blood Culture - Preliminary Presumptive MRSA 04/23/20 07:05 Blood Culture Gram Stain - Final Blood Blood Culture - Final Methicillin resist S. aureus Assessment and Plan Plan: Assessment: 1. End-stage renal disease maintained on hemodialysis on Wednesday schedule. 2. MRSA bacteremia secondary to permacath infection status post removal on April 17. 3. Chronic kidney disease mineral bone disease maintained on PhosLo. 4. Hypertension with chronic kidney disease. Controlled. 5. Diabetes mellitus. 6. A. fib maintained on amiodarone and Lopressor. 7. Anemia of chronic kidney disease maintained on Aranesp. 8. Hyperkalemia secondary to chronic kidney disease. Improved postdialysis. Plan: Hemodialysis today. Groin dialysis catheter will be removed after dialysis today. Patient will need a permacath once cleared by ID. Monitor vancomycin levels. Target level near 15. Continue to hold Cozaar for now. Case was discussed with infectious disease.
[2020-04-26 11:28] LABS: Glucose,Whole Blood 96 mg/dL (75-99)
--- NOTE | 2020-04-26 11:35 | P.PN ---
Subjective Progress Note Date: 04/26/20 Principal diagnosis: Acute hypoxemic respiratory failure secondary to MRSA, diastolic CHF 04/22/2020 I'm seeing the patient for a follow-up. The patient is still lethargic and on and off confused. He is able to some simple conversations. The patient has multiple medical problems and comorbidities. His post cardiac arrest. He has an incisional disease on hemodialysis, coronary artery disease, diabetes mellitus type 2, chronic anemia, and obstructive sleep apnea. He is a quite complicated case of staphylococcal sepsis/pneumonia. The patient is on vancomycin. No evidence of any endocarditis. The patient is afebrile and he is currently hemodynamically stable on room air oxygen. Note that, the patient is on hemodialysis for incisional disease. His hemodialysis catheter was removed due to the bacteremia and sepsis and a new hemodialysis catheter was inserted and subsequently removed on 04/21/2020. The most recent blood cultures from 0 04/21/2020 are still positive and the patient's catheter was again removed.. On 04/23/2020, the patient remains encephalopathic, probably related to underlying sepsis. His blood pressure is still positive for gram-positive cocci/MRSA. He does not have any catheters in place. Repeat blood culture was ordered on 04/22/2020. The previously obtained and removed catheter for dialysis was removed and the tip was sent for cultures and the results are still pending for that. Meanwhile, the patient's vancomycin trough is at 19.2. The dose being adjusted and monitored by pharmacy. He is afebrile. No chills. No fever. No shortness of breath. He is laying comfortably in bed. He is sleeping for most of the time. His last hemodialysis on Wednesday. A total of 1 L of fluid was removed. It seems that the patient has had intolerance another temporary dialysis catheter for another session of dialysis either today or tomorrow. This needs to be orchestrated and arranged by nephrology. The patient's white cell count is at 22.5 and the hemoglobin is at 7.5. BUN is a 51 with a creatinine of 5.0. The patient is seen today 04/24/2020 in follow-up on the regular medical floor. He remains encephalopathic. Blood cultures continued to show presumptive MRSA. Remains on vancomycin. Cultures of the dialysis catheter tip still pending. Remains with end-stage renal disease with treatments on Wednesday. Permacath had been removed. Plan is for placement of a new permacath once cleared by ID. Most recent creatinine 5.00 yesterday. Heart rate is controlled. Remains on amiodarone. 04/25/2020 on seeing the patient for a follow-up. As usual, he is still lethargic yet arousable and he follows commands. Due to his ongoing dialysis requirements, a temporary dialysis catheter was inserted in the right groin and the patient is currently undergoing hemodialysis. The plan is likely to remove the catheter following dialysis specially the patient is still bacteremic with staph aureus. He remains on vancomycin. He is afebrile this morning. A repeat CAT scan of the chest was done and showed moderate-sized bilateral pleural effusion right more than left and my plan is to drain the fluid to make sure there is noinfection or empyema in the right lung. This will be done after the patient is hemodialysis as the patient is going to undergo dialysis for the next 2 hours.. His primary cultures from 04/24/2020 is still positive for gram- positive cocci. The patient is seen today 04/26/2020 and follow-up on the regular medical floor. He is currently resting flat in bed. He is arousable. Still somewhat encephalopathic. He did undergo a right-sided thoracentesis yesterday mainly diagnostic, the fluid was fairly clear and suspect transudate in nature. Cultures and cytology are pending. The plan is for hemodialysis again today. He had a right groin catheter placed on April 24. Continues with MRSA bacteremia. Source is unknown. Plan is for WBC tagged whole-body scan today. He remains on daptomycin. White count 11.8. Hemoglobin 7.2. Neutrophils 10.1. Sodium 134. Potassium 4.7. Bicarb 27. Creatinine 3.69. Objective - Vital Signs Vital signs: Vital Signs Temp 97.8 F 04/26/20 06:45 Pulse 63 04/26/20 06:45 Resp 18 04/26/20 06:45 BP 116/61 04/26/20 06:45 Pulse Ox 95 04/26/20 06:45 Intake & Output 04/25/20 04/26/20 04/26/20 18:59 06:59 18:59 Intake Total 500 50 Output Total 2500 Balance -1999 50 Intake: Oral 500 50 Output: Urine 1000 Hemodialysis 1500 Other: Voiding Method Urinal Urinal - Exam GENERAL EXAM: Sleepy, but arousable to voice, pleasant 59-year-old gentleman, currently on 2 L nasal cannula HEAD: Normocephalic/atraumatic. EYES: Normal reaction of pupils, equal size. Conjunctiva pink, sclera white. NOSE: Clear with pink turbinates. THROAT: No erythema or exudates. NECK: No masses, no JVD, no thyroid enlargement, no adenopathy. CHEST: No chest wall deformity. Symmetrical expansion. Right subclavian has been removed. LUNGS: Equal air entry some rhonchi, but without crackles or wheezes. Breath sounds equal bilaterally. CVS: Regular rate and rhythm, normal S1 and S2, no gallops, soft systolic murmur, loudest at the left midclavicular line fourth to fifth intercostal space, no rubs. Heart rate 65 bpm. ABDOMEN: Soft, nontender. No hepatosplenomegaly, normal bowel sounds, no guarding or rigidity. EXTREMITIES: No clubbing, no edema, no cyanosis, 2+ pulses and upper and lower extremities. Right groin temporary HD catheter in place. Left upper arm AV shunt in place, with positive bruit and thrill, nonfunctioning MUSCULOSKELETAL: Muscle strength and tone normal. SPINE: No scoliosis or deformity SKIN: No rashes. CENTRAL NERVOUS SYSTEM: Patient is lethargic/sleepy, but does arouse. He is appropriate when he is awake. - Labs CBC & Chem 7: 04/26/20 06:19 04/26/20 06:19 Labs: Abnormal Lab Results - Last 24 Hours (Table) 04/25/20 04/25/20 04/25/20 Range/Units 06:33 16:59 17:15 WBC (4.50-10.00) X 10*3/uL RBC (4.40-5.60) X 10*6/uL Hgb (13.0-17.0) g/dL Hct (39.6-50.0) % MCHC (32.0-37.0) g/dL RDW (11.5-14.5) % Absolute Nucleated RBC (0.00-0.00) X 10*3/uL Immature Gran # (0.00-0.04) X 10*3/uL Neutrophils # (1.80-7.70) X 10*3/uL Lymphocytes # (0.90-5.00) X 10*3/uL NRBC/100 WBC Diff (0.0-0.0) /100 WBCS Sodium (137-145) mmol/L BUN (9-20) mg/dL Creatinine (0.66-1.25) mg/dL BUN/Creatinine Ratio 9.36 L (12.00-20.00) Ratio Glucose (74-99) mg/dL POC Glucose (mg/dL) 67 L 70 L (75-99) mg/dL Calcium (8.4-10.2) mg/dL 04/25/20 04/26/20 04/26/20 Range/Units 20:42 06:19 06:19 WBC 11.87 H (4.50-10.00) X 10*3/uL RBC 2.66 L (4.40-5.60) X 10*6/uL Hgb 7.2 L (13.0-17.0) g/dL Hct 23.6 L (39.6-50.0) % MCHC 30.5 L (32.0-37.0) g/dL RDW 17.6 H (11.5-14.5) % Absolute Nucleated RBC 0.02 H (0.00-0.00) X 10*3/uL Immature Gran # 0.15 H (0.00-0.04) X 10*3/uL Neutrophils # 10.11 H (1.80-7.70) X 10*3/uL Lymphocytes # 0.54 L (0.90-5.00) X 10*3/uL NRBC/100 WBC Diff 0.2 H (0.0-0.0) /100 WBCS Sodium 134 L (137-145) mmol/L BUN 32 H (9-20) mg/dL Creatinine 3.69 H (0.66-1.25) mg/dL BUN/Creatinine Ratio (12.00-20.00) Ratio Glucose 171 H (74-99) mg/dL POC Glucose (mg/dL) 176 H (75-99) mg/dL Calcium 8.1 L (8.4-10.2) mg/dL 04/26/20 Range/Units 06:49 WBC (4.50-10.00) X 10*3/uL RBC (4.40-5.60) X 10*6/uL Hgb (13.0-17.0) g/dL Hct (39.6-50.0) % MCHC (32.0-37.0) g/dL RDW (11.5-14.5) % Absolute Nucleated RBC (0.00-0.00) X 10*3/uL Immature Gran # (0.00-0.04) X 10*3/uL Neutrophils # (1.80-7.70) X 10*3/uL Lymphocytes # (0.90-5.00) X 10*3/uL NRBC/100 WBC Diff (0.0-0.0) /100 WBCS Sodium (137-145) mmol/L BUN (9-20) mg/dL Creatinine (0.66-1.25) mg/dL BUN/Creatinine Ratio (12.00-20.00) Ratio Glucose (74-99) mg/dL POC Glucose (mg/dL) 192 H (75-99) mg/dL Calcium (8.4-10.2) mg/dL Microbiology - Last 24 Hours (Table) 04/25/20 06:33 Blood Culture Gram Stain - Preliminary Blood 04/25/20 13:40 Gram Stain - Preliminary Pleural Fluid Body Fluid Culture - Preliminary 04/25/20 06:33 Blood Culture - Final Blood 04/25/20 13:40 Anaerobic Culture - Preliminary Pleural Fluid 04/24/20 08:03 Blood Culture Gram Stain - Preliminary Blood Blood Culture - Preliminary Presumptive MRSA 04/23/20 07:05 Blood Culture Gram Stain - Final Blood Blood Culture - Final Methicillin resist S. aureus Assessment and Plan Assessment: 1 Acute hypoxemic respiratory failure, secondary to methicillin-resistant staph aureus sepsis, as well as acute diastolic CHF. The patient is currently on 2 L nasal cannula. The patient has recovered from his acute hypoxic respiratory failure. The patient did undergo a right-sided thoracentesis on 04/25/2020 for diagnostic purposes. 500 mL of turbid colored fluid was removed. Cultures and cytology pending. 2 sepsis secondary to Methicillin-resistant staph aureus bacteremia, and sepsis, likely secondary to his subclavian dialysis catheter, has been removed. YAYO is negative for regurgitation. Most recent blood culture from 04/13/2020 are still positive for gram-positive cocci, presumed MRSA and the patient remains on vancomycin. The most recent dialysis catheter was inserted in his groin was removed on 04/21/2020 and no immediate plans to put a permacath as long as the patient is still bacteremic.. In view of his underlying septicemia, the patient remains encephalopathic. There is no need for any benzodiazepine an hour waiting to discontinue the medication as the medications going to make him on previous and encephalopathic especially with his underlying renal failure. The patient is hemodynamically stable. Most recent blood cultures of been positive and the repeat blood cultures from 04/24/2020 are still revealing presumptive MRSA. 3 Status post cardiac arrest, with asystole and/or pulseless electrical activity, brief, with 2 minutes of cardiopulmonary resuscitation. 4 Chronic end-stage renal disease, currently on hemodialysis, noncompliant. 5 Recurrent falls. 6 History of coronary artery disease. 7 Diabetes mellitus, type II, with diabetic neuropathy and nephropathy. 8 Anemia of chronic disease. 9 Obstructive sleep apnea syndrome. 10 Morbid obesity. 11 Right second toe cellulitis. ReCovered 12 Congestive hepatopathy, improved. 13 Leukocytosis, secondary to staph sepsis. 14 Encephalopathy, likely secondary to sepsis. 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 Beverly Blood cultures continued to show presumptive MRSA Remains on daptomycin Tagged WBC whole-body scan today Right-sided thoracentesis on 04/25/2020 with 500 mL of turbid colored fluid removed. Cultures and cytology pending. Plan is for HD today We will continue to follow I, the cosigning physician, performed a history & physical examination of the patient. Lungs sounds with few scattered rhonchi. Maintaining good O2 saturations in the 90s on 2 L/m per nasal cannula. I discussed the assessment and plan of care with my nurse practitioner, Monica North. I attest to the above note as dictated by her.
[2020-04-26 14:44] VITALS: BMI 23.3
--- NOTE | 2020-04-26 14:59 | P.PN ---
Subjective Progress Note Date: 04/26/20 HISTORY OF PRESENT ILLNESS 59 years old male patient of Dr. Mckeon with past medical history of end-stage renal disease on hemodialysis Wednesday and Wednesday, coronary artery disease post angioplasty, and stent placement last catheterization was February 09 with stent of the left circumflex and proximal LAD, atrial fibrillation, diabetes, GERD, hyperlipidemia, hypertension. He does have intermittent lesion along the mid LAD and follows Dr. Hinojosa on as outpatient. Patient was last admitted in February 16 with chest pain and unstable angina, comes in this time with change in mental status, and multiple falls at home. Patient is unable to provide any history due to increased drowsiness. History obtained from the chart. It appears patient had a fall in the bathroom as his leg gave out. He denies any dizziness or syncope episode. CT of the head was obtained that showed no acute lesions. Patient missed 2 dialysis appointment, last hemodialysis was 1 week ago. In the ER patient's blood pressure was 202/94 temp of 99 pulse 91 and respiratory rate 19 on assessment of patient's lab patient had a any, hemoglobin 10.7 hematocrit 32.4 sodium 133 chloride 92 bicarb 21 BUN 86 creatinine 7.56 glucose 237. Urinalysis does suggest leukocytosis with positive blood and positive protein. Urine culture was sent. On evaluation today patient is found to be lying in bed. He is unable to provide any history. Patient did Gabapentin, Dilaudid and 1 L of bolus of IV fluids. We will hold pain medication. Decrease gabapentin 100 3 times a day. Patient will be started on levofloxacin renally adjusted to 250 every 48 hours. Ativan reduced to 0.5 mg 3 times a day. Hold off diuretics. Nephrology consulted At 2:30 this afternoon patient became unresponsive as patient was hooked to the dialysis. The A team responded to the patient did mention patient was pulseless. A brief CPR was done for 2 minutes, with return of spontaneous circulation and return of the pulse with no need of epinephrine. Patient's blood pressure was found to be low. Cardiology consult will be placed. Echo will be ordered. Patient was noted to be in atrial fibrillation and was transferred to the ICU on nonrebreather mask. Another attempt was made to start the hemodialysis while patient was arousable and follows all commands he was found to be more lethargic. Patient's blood pressure dropped on hemodialysis and became unresponsive not responding to sternal rub. Was noted to be in A. fib with RVR. Patient was placed on BiPAP intubation was not required. 04/12 patient currently in the ICU. Vitals are stable with temp of 98 pulse 67 and respiratory rate 19 and blood pressure 156/71 oxygen saturation 95% on 40% on BiPAP. Patient has leukocytosis of 18 improved from 20 hemoglobin 9.9, sodium 134 chloride 97 bicarb 19 BUN 104 creatinine 8.15 phosphorus 10.7 and total bilirubin 1.7 AST 2932 ALT 2727 alkaline phosphatase 449. Cardiology evaluated the patient thinks patient's episode of unresponsiveness could be vasovagal from low blood pressure. Continue to monitor patient's blood pressure with possible orthostatics when patient is stable. Metoprolol dose increased to 25 twice a day. Initiated on amiodarone 100 mg daily patient is being dialyzed today with minimal ultrafiltration. We will hold hydralazine and Cozaar for systolic less than 125. Patient currently off pressors. Spoke to patient's at bedside who mentioned patient has been falling for the past few months. He had MRI of the lower back done as outpatient that suggested severe spinal stenosis. Patient was set up for PT as outpatient but has been forgetting to often due to weakness in his legs. He has a outpatient appointment pending with an orthopedic surgery 04/13: Patient still in the ICU , on BiPAP, he still have less responsiveness, quite hypertensive today back on vasopressor. Patient was diagnosed tolerate hemodialysis for long had only 1 hour, still currently in significant encephalopathy status, continue IV antibiotic for now there is a small gang renous spot on the right second toe. 04/14: Patient is off vasopressor, still on BiPAP, still running back and forth between tachycardia and A. fib. No hemodialysis done today. Patient is very confused is taking his lines And all attachment out he required a sitter today. 04/15: Patient is off vasopressor, off BiPAP, he is more awake alert today, he is more hemodynamically stable. He is on hemodialysis and blood pressure is holding well so far should be able to do full cycle of hemodialysis today. Source of infection is still unclear suspect to be dialysis catheter which might be pulled out to place another catheter either in the femoral area or use the fistula graft had in the left forearm. 04/16: Patient evaluated in the ICU. Patient is arousable but easily drifts back to sleep. He had dialysis yesterday, with possible plans for dialysis again today due to elevated BUN/creatinine. Possible source of infection still unclear and suspected to be dialysis catheter. Nephrology plans on repeat blood cultures via dialysis catheter, if positive will discuss discontinuing the IJ pe rmacath. Infectious disease added Cefepime for worsening white count, and continue on Vancomycin. Repeat chest x-ray shows cardiomegaly with left basilar atelectasis. Plans to transfer of the ICU today to select care unit. 04/17: Patient's right IJ permacath dialysis catheter was removed yesterday. Patient's nurse reports that there was pus on the end and this has been cultured. Patient remains in the intensive care unit but has been downgraded to cardiac stepdown unit. Patient has been afebrile, heart rate 57, blood pressure 109/59, pulse ox 100% on 2 L nasal cannula. solutions market consultant has been a sinus rhythm. He does have short bouts of atrial fibrillation most often noted when he drinks cold liquids. Repeat blood work reveals WBC of 32, hemoglobin 9.6, platelet count 285. BUN 47 creatinine 3.63, potassium 4.3. Blood sugars running between 85 and 166. Total bilirubin 1.3, AST 98, ALT 517, alkaline phosphatase 391. Liver function tests are improved from yesterday. Chest x-ray today reveals cardiomegaly. Interstitial density slightly increased. Correlate to exclude developing pulmonary vascular congestion. Left base remains under penetrated area and some underlying atelectasis or infiltrate or effusion possible. 04/18: Patient is seen today on the cardiac stepdown unit. Patient is awake and answering questions but speech is slow and slurred. Reviewed plan of care with him and he verbalizes understanding. Patient is afebrile, heart rate 66, blood pressure 123/55, pulse ox 99% on 2 L nasal cannula. Catheter tip culture is showing presumptive MRSA. Repeat blood cultures have been ordered to see if bacteremia is clearing. Patient is currently on vancomycin pharmacy dosing and cefepime. YAYO performed by Dr. Bowie reveals no evidence of infective endocardit is. No evidence of intracardiac valves vegetation or abscess. Aortic sclerosis, trileaflet mildly thickened with trace aortic insufficiency. Thickened anterior posterior mitral leaflets with moderate mitral regurgitation. Moderate tricuspid regurgitation. Moderate pulmonic insufficiency. Mild biatrial enlargement. Intact anterior atrial septum and intact left atrial appendage without thrombus. Low normal LV with EF of 50%. No pericardial effusion. 04/19: Patient had worsening of his mental status during the night and remains confused worse than yesterday. Leandra is on hold this morning for temporary line placement for dialysis. Dr. Nguyen is planning on hemodialysis today and tomorrow. Patient is only able to state that he feels miserable and terrible but nothing specific. He has been afebrile, heart rate 74, blood pressure 161/75, pulse ox 91% on room air. WBC is 28.4, hemoglobin 8.6, platelet count 285. CO2 19, BUN 75 and creatinine 5.85. Blood sugars running between 205 and 235. Vancomycin level XXI.5. Repeat blood cultures obtained on April 18 are also positive. CAT scan of the abdomen and pelvis with contrast revealed moderate anasarca. Small bilateral pleural effusions with adjacent atelectasis superimposed infiltrates not excluded. Mild urinary bladder wall thickening, correlate for cystitis. No significant contrast excretion into the renal colle ction system on the delayed images. No significant intra-abdominal pelvic abnormality. Tetracycline has recommended continuing vancomycin. 04/20: Patient had a temporary dialysis catheter placed in the right groin and underwent hemodialysis treatment yesterday but due to patient's restlessness it was not a good treatment. His mental status however is significantly improved today. We will plan to order Dilaudid 1 mg before dialysis treatment and if necessary Valium 5 mg can be given. Patient's nurses been updated. Dr. Wills is planning to remove dialysis catheter following treatment today. Blood cultures remain positive including those drawn on April 19. Repeat blood cultures ordered for tomorrow. Dr. Presley has been updated. He has been afebrile, heart rate 65, blood pressure 134/72, pulse ox 97% on 2 L nasal cannula. Blood sugars running between 90-162. Vancomycin level XVIII. 04/21: She underwent dialysis yesterday with removal of a half a liter of fluid as was planned. Patient is scheduled for another treatment today. Patient states that she is feeling better. Mental status is improved from 2 days ago. Plan is to remove dialysis catheter after today's treatment. His blood cultures that were obtained yesterday are positive. Patient has been afebrile, heart rate 65, blood pressure 118/66, pulse ox 94% on 2 L nasal cannula. Creatinine 4.19. Blood sugars are running between 99 and 146. Patient did well with Dilaudid given 1 mg prior to dialysis treatment. We will plan to repeat this today. 04/22: Patient had dialysis yesterday and dialysis catheter was subsequently removed. Repeat blood cultures obtained on April 21 are also positive. Patient denies any new complaints today. No chest pain, shortness of breath. Patient continues to have some confusion. Losartan has been discontinued by nephrology. He has been afebrile, heart rate 62, blood pressure 126/81, pulse ox 99% on 3 L nasal cannula. Repeat blood work reveals W BC at 22.5, hemoglobin 7.5, platelet count 215. Electrolytes normal, BUN 37 creatinine 3.9. Blood sugars running between 86 and 157. Total bilirubin 0.7, AST 23, ALT 107, alkaline phosphatase 226. Vancomycin level XIX.2. 04/23: Patient continues to be confused more so than yesterday. That blood sugars have been elevated later in the afternoon and evening and scheduled NovoLog added to his regime. Repeat blood work reveals sodium of 135, potassium 4.9, chloride 101, CO2 24, BUN 51 creatinine 5. Blood sugars are running between 184 and 263. Repeat blood culture has been obtained today and is pending. 04/24: She appears to be mentally more alert today. He is sleeping and awakens easily. He is having difficulty sleeping at nighttime. Melatonin increased to 9 mg at bedtime. Vistaril discontinued. We have ordered a CAT scan of the chest to rule out abscess. CAT scan of the chest revealed small bilateral pleural effusions. Clinical consideration for empyema. Compressive atelectasis versus consolidation from pneumonia in the dependent lung bases. No suspicious abscess. He continues to have positive blood cultures pharmacy is dosing vancomycin at this point. She and is complaining of chest wall pain when he coughs at site of previous catheter. 04/25: Patient had temporary else's catheter placed yesterday afternoon with Dr. Santizo. Patient is undergoing hemodialysis today. He complains of not being able to sleep with no improvement with melatonin. Trazodone 25 mg at bedtime added. Dr. Beverly is planning to do a right-sided diagnostic thoracentesis after dialysis treatment. He is continued on vancomycin. Patient has been afebrile, heart rate 63, blood pressure 147/65, pulse ox 90% on 2 L nasal cannula. Blood sugars are running between 98 and 151. Blood cultures from Apr ch 3 are also positive. Vistaril resumed per patient's request for itching while having dialysis treatment. 04/26: Patient underwent right-sided thoracentesis yesterday with 500 ML's of turbid fluid removed. Cultures are in progress. Patient is afebrile. Blood pressure 161/62, pulse ox 97% on 2 L, heart rate 66. Repeat blood work reveals WBC 11.8, hemoglobin 7.2, platelet count 183. Sodium 134, BUN 32 and creatinine 3.79. Blood sugars running between [address] Presley has changed anti biotics to daptomycin. REVIEW OF SYSTEMS Constitutional: No fever, no chills, no night sweats. No weight change. Reported weakness, reported fatigue reported lethargy. Reported daytime sleepiness. EENT: No headache. No blurred vision or double vision, no loss of vision. No loss of Hearing, no ringing in the ears, no dizziness. No nasal drainage or congestion. No epistaxis. No sore throat. Lungs: No shortness of breath, cough, no sputum production. No wheezing. Cardiovascular: No chest pain, no lower extremity edema. No palpitations. No paroxysmal nocturnal dyspnea. No orthopnea. No lightheadedness or dizziness. No syncopal episodes. Abdominal: No abdominal pain. No nausea, vomiting. No diarrhea. No constipation. No bloody or tarry stools. No loss of appetite. Genitourinary: No dysuria, increased frequency, urgency. No urinary retention. Musculoskeletal: No myalgias. No muscle weakness, no gait dysfunction, no frequent falls. No back pain. No neck pain. Integumentary: No wounds, no lesions. No rash or pruritus. No unusual bruising. No change in hair or nails. Neurologic: No aphasia. No facial droop. Reported confusion. No head injury. No headache. No paralysis. No paresthesia. Psychiatric: No depression. No anxiety. Reports insomnia Endocrine: Noted abnormal blood sugars. PHYSICAL EXAMINATION Gen: This is a 59-year-old male patient seen on the cardiac stepdown unit. He is resting in bed and appears to be in no acute respiratory distress. HEENT: Head is atraumatic, normocephalic. Pupils equal, round. Sclerae is anicteric. NECK: Supple. No JVD. No lymphadenopathy. No thyromegaly. LUNGS: Clear to auscultation. No wheezes or rhonchi. No intercostal retractions. HEART: Regular rate and rhythm. 2/6 systolic murmur. ABDOMEN: Soft. Bowel sounds are present. No masses. No tenderness. EXTREMITIES: No pedal edema. No calf tenderness. Right groin temporary dialysis catheter. NEUROLOGICAL: Patient is oriented to person and place. He is able to converse, answer questions and follow commands. ASSESSMENT AND PLAN 1. Sepsis and MRSA bacteremia secondary to dialysis catheter. Permacath has been removed as of yesterday and culture of tip done. Patient is followed by Dr. Presley and continued on vancomycin. Temporary catheter was removed yesterday, planned for permanent catheter placement once blood cultures are clear. Blood cultures remain positive from 04/21. CAT scan of the chest as above. Noted consideration for empyema. Status post right-sided diagnostic thoracentesis. Antibiotics changed to daptomycin 2. Metabolic encephalopathy secondary to sepsis, uremia, pain medication and benzodiazepines improving. Lorazepam has been discontinued. 3. End-stage renal disease on hemodialysis. Permanent catheter will be placed once bacteremia is cleared. Consult with nephrology and vascular surgery appreciated. Continue PhosLo 1334 mg 3 times daily. 2. Temporary dialysis catheter for hemodialysis today 4. Fall secondary to degenerative disc disease and spinal stenosis. MRI as an outpatient revealed severe spinal stenosis. Patient has outpatient orthopedic evaluation pending. PT and OT following. 5. Acute syncopal episode most likely vasovagal, patient had brief CPR. Cardiology consult appreciated. 6. History of coronary artery disease with previous PTCA to LAD and circumflex. Lexiscan was negative on previous admission. Continue Plavix 75 mg daily, Imdur 30 mg daily, Lopressor 25 mg in the morning and evening. 7. Paroxysmal atrial fibrillation. Continue eliquis 2.5 mg twice daily and metoprolol, amiodarone at 200 mg daily. (Eliquis on hold) 8. Ischemic cardiomyopathy. 9. Diabetes mellitus type 2, insulin requiring, uncontrolled with hyperglycemia. Continue Levemir 20 units daily, add NovoLog scale 3 units with meals and continue NovoLog scale before meals and at bedtime, 10. Diabetic neuropathy. Continue gabapentin 100 mg 3 times daily. 11. Hypertension. Continue hydralazine 25 mg 3 times daily, losartan has been discontinued by nephrology. 12. Anemia of chronic disease. Continue to monitor. 13. GI prophylaxis. Continue Protonix. 14. DVT prophylaxis. Continue eliquis. DISCHARGE PLAN [facility]. Impression and plan of care have been directed as dictated by the signing physician. Katelyn Wesley nurse practitioner acting as scribe for signing physician. Objective - Vital Signs Vital signs: Vital Signs Temp 97.8 F 04/26/20 06:45 Pulse 63 04/26/20 06:45 Resp 18 04/26/20 06:45 BP 116/61 04/26/20 06:45 Pulse Ox 95 04/26/20 06:45 Intake & Output 04/25/20 04/26/20 04/26/20 18:59 06:59 18:59 Intake Total 500 50 Output Total 2500 Balance -2000 50 Intake: Oral 500 50 Output: Urine 1000 Hemodialysis 1500 Other: Voiding Method Urinal Urinal - Labs CBC & Chem 7: 04/26/20 06:19 04/26/20 06:19 Labs: Abnormal Lab Results - Last 24 Hours (Table) 04/25/20 04/25/20 04/25/20 Range/Units 06:33 06:33 16:59 WBC 14.8 H (3.8-10.6) k/uL RBC 2.77 L (4.30-5.90) m/uL Hgb 7.8 L (13.0-17.5) gm/dL Hct 24.8 L (39.0-53.0) % MCHC (32.0-37.0) g/dL RDW 17.3 H (11.5-15.5) % Absolute Nucleated RBC (0.00-0.00) X 10*3/uL Immature Gran # (0.00-0.04) X 10*3/uL Neutrophils # 13.2 H (1.3-7.7) k/uL Lymphocytes # 0.5 L (1.0-4.8) k/uL NRBC/100 WBC Diff (0.0-0.0) /100 WBCS Sodium 135 L (137-145) mmol/L BUN 39 H (9-20) mg/dL Creatinine 4.49 H (0.66-1.25) mg/dL BUN/Creatinine Ratio 9.36 L (12.00-20.00) Ratio Glucose 133 H (74-99) mg/dL POC Glucose (mg/dL) 67 L (75-99) mg/dL Calcium 8.3 L (8.4-10.2) mg/dL 04/25/20 04/25/20 04/26/20 Range/Units 17:15 20:42 06:19 WBC (3.8-10.6) k/uL RBC (4.30-5.90) m/uL Hgb (13.0-17.5) gm/dL Hct (39.0-53.0) % MCHC (32.0-37.0) g/dL RDW (11.5-15.5) % Absolute Nucleated RBC (0.00-0.00) X 10*3/uL Immature Gran # (0.00-0.04) X 10*3/uL Neutrophils # (1.3-7.7) k/uL Lymphocytes # (1.0-4.8) k/uL NRBC/100 WBC Diff (0.0-0.0) /100 WBCS Sodium 134 L (137-145) mmol/L BUN 32 H (9-20) mg/dL Creatinine 3.69 H (0.66-1.25) mg/dL BUN/Creatinine Ratio (12.00-20.00) Ratio Glucose 171 H (74-99) mg/dL POC Glucose (mg/dL) 70 L 176 H (75-99) mg/dL Calcium 8.1 L (8.4-10.2) mg/dL 04/26/20 04/26/20 Range/Units 06:19 06:49 WBC 11.87 H (3.8-10.6) k/uL RBC 2.66 L (4.30-5.90) m/uL Hgb 7.2 L (13.0-17.5) gm/dL Hct 23.6 L (39.0-53.0) % MCHC 30.5 L (32.0-37.0) g/dL RDW 17.6 H (11.5-15.5) % Absolute Nucleated RBC 0.02 H (0.00-0.00) X 10*3/uL Immature Gran # 0.15 H (0.00-0.04) X 10*3/uL Neutrophils # 10.11 H (1.3-7.7) k/uL Lymphocytes # 0.54 L (1.0-4.8) k/uL NRBC/100 WBC Diff 0.2 H (0.0-0.0) /100 WBCS Sodium (137-145) mmol/L BUN (9-20) mg/dL Creatinine (0.66-1.25) mg/dL BUN/Creatinine Ratio (12.00-20.00) Ratio Glucose (74-99) mg/dL POC Glucose (mg/dL) 192 H (75-99) mg/dL Calcium (8.4-10.2) mg/dL Microbiology - Last 24 Hours (Table) 04/25/20 06:33 Blood Culture Gram Stain - Preliminary Blood 04/25/20 06:33 Blood Culture - Final Blood 04/25/20 13:40 Anaerobic Culture - Preliminary Pleural Fluid 04/25/20 13:40 Body Fluid Culture - Preliminary Pleural Fluid 04/24/20 08:03 Blood Culture Gram Stain - Preliminary Blood Blood Culture - Preliminary Presumptive MRSA 04/23/20 07:05 Blood Culture Gram Stain - Final Blood Blood Culture - Final Methicillin resist S. aureus
--- NOTE | 2020-04-26 16:31 | NM ---
EXAMINATION TYPE: NM WBC whole body DATE OF EXAM: 04/26/2020 COMPARISON: CT chest April 24, 2020. CT abdomen and pelvis April 18, 2020 HISTORY: Leukocytosis. Persistent staphylococcus bacteremia. TECHNIQUE: Following administration of 20.9 mCi Tc99m Ceretec. Images obtained 3.5 hours post injec tion. Whole body images are acquired. FINDINGS: Normal physiological tracer activity is noted in the liver and spleen and in the bone marrow of the a xial and appendicular skeleton. Mild increased uptake throughout both lung justice correlates with mil d areas of diffuse groundglass opacity possible diffuse infiltrates and/or edema. No suspicious abnor mal radiotracer uptake otherwise identified. IMPRESSION: As above.
[2020-04-26 16:36] LABS: Glucose,Whole Blood 93 mg/dL (75-99)
--- NOTE | 2020-04-26 17:34 | PN ---
PROGRESS NOTE DATE OF SERVICE: 04/26/2020 REASON FOR FOLLOWUP: MRSA bacteremia. INTERVAL HISTORY: Patient is currently afebrile. The patient is breathing comfortably. No chest pain or shortness of breath. Minimal cough. No abdominal pain. No diarrhea. PHYSICAL EXAMINATION: Blood pressure 160/62 with a pulse of 66, temperature 98.5. He is 97% on 2 L nasal cannula. General description is a middle-aged male lying in bed in no distress. Respiratory system: Unlabored breathing, decreased breath sounds at the base. No wheeze. HEART: S1, S2. Regular rate and rhythm. Abdomen is soft, no tenderness. LABS: Hemoglobin 7.1, white count 11.7, BUN of 32, creatinine is 3.69. DIAGNOSTIC IMPRESSION AND PLAN: Patient with MRSA bacteremia source is the PermCath which has been discontinued. Did have persistent bacteremia in this patient who did have a YAYO, CT abdomen and pelvis, now with bone scan with no definite focus. Patient to continue with daptomycin. Daily blood cultures to document clearance of his bacteremia and continue supportive care. MMODL / IJN: [id number] /
[2020-04-26 21:10] LABS: Glucose,Whole Blood 62 mg/dL (75-99)
[2020-04-26] MEDS: traZODone HCL 50 MG TAB PO SCH (21:22)
[2020-04-26 21:35] LABS: Glucose,Whole Blood 78 mg/dL (75-99)
[2020-04-27 06:38] LABS: Glucose,Whole Blood 130 mg/dL (75-99)
[2020-04-27 07:54] LABS: African American GFR (CKD) 25 (>60 ml/min/1.73 sqM); Anion Gap 3 mmol/L; Blood Urea Nitrogen 24 mg/dL (9-20); Calcium 8.2 mg/dL (8.4-10.2); Carbon Dioxide 33 mmol/L (22-30); Chloride 98 mmol/L (98-107); Glucose 127 mg/dL (74-99); Non-African American GFR(CKD) 22 (>60 ml/min/1.73 sqM); Potassium 4.5 mmol/L (3.5-5.1); Sodium 134 mmol/L (137-145)
[2020-04-27] MEDS: INSULIN DETEMIR (LEVEMIR) 100 UNIT/ML SYR SQ SCH (08:33)
[2020-04-27] MEDS: INSULIN ASPART (NovoLOG) 100 UNIT/ML VIAL SQ SCH ×7 (08:33→21:03)
[2020-04-27] MEDS: METOPROLOL TARTRATE 25 MG TAB PO SCH ×2 (08:34→20:27)
[2020-04-27] MEDS: PANTOPRAZOLE 40 MG TABLET PO SCH (08:34)
[2020-04-27] MEDS: hydrALAZINE HCL 25 MG TAB PO SCH ×3 (08:34→20:27)
[2020-04-27] MEDS: AMIODARONE 200 MG TAB PO SCH (08:34)
[2020-04-27] MEDS: allopurinoL 100 MG TAB PO SCH (08:35)
[2020-04-27] MEDS: CLOPIDOGREL 75 MG TAB PO SCH (08:35)
[2020-04-27] MEDS: ISOSORBIDE MONONITRATE ER 30 MG TAB.ER.24H PO SCH (08:40)
[2020-04-27] MEDS: GABAPENTIN 100 MG CAP PO SCH ×3 (08:40→20:26)
[2020-04-27] MEDS: hydrOXYzine pamoate 25 MG CAP PO PRN (08:44)
--- NOTE | 2020-04-27 10:59 | P.PN ---
Subjective Progress Note Date: 04/27/20 04/22/2020 I'm seeing the patient for a follow-up. The patient is still lethargic and on and off confused. He is able to some simple conversations. The patient has multiple medical problems and comorbidities. His post cardiac arrest. He has an incisional disease on hemodialysis, coronary artery disease, diabetes mellitus type 2, chronic anemia, and obstructive sleep apnea. He is a quite complicated case of staphylococcal sepsis/pneumonia. The patient is on vancomycin. No evidence of any endocarditis. The patient is afebrile and he is currently hemodynamically stable on room air oxygen. Note that, the patient is on hemodialysis for incisional disease. His hemodialysis catheter was removed due to the bacteremia and sepsis and a new hemodialysis catheter was inserted and subsequently removed on 04/21/2020. The most recent blood cultures from 04/21/2020 are still positive and the patient's catheter was again removed.. On 04/23/2020, the patient remains encephalopathic, probably related to underlying sepsis. His blood pressure is still positive for gram-positive cocci/MRSA. He does not have any catheters in place. Repeat blood culture was ordered on 04/22/2020. The previously obtained and removed catheter for dialysis was removed and the tip was sent for cultures and the results are still pending for that. Meanwhile, the patient's vancomycin trough is at 19.2. The dose being adjusted and monitored by pharmacy. He is afebrile. No chills. No fever. No shortness of breath. He is laying comfortably in bed. He is sleeping for most of the time. His last hemodialysis on Wednesday. A total of 1 L of fluid was removed. It seems that the patient has had intolerance another temporary dialysis catheter for another session of dialysis either today or tomorrow. This needs to be orchestrated and arranged by nephrology. The patient's white cell count is at 22.5 and the hemoglobin is at 7.5. BUN is a 51 with a creatinine of 5.0. The patient is seen today 04/24/2020 in follow-up on the regular medical floor. He remains encephalopathic. Blood cultures continued to show presumptive MRSA. Remains on vancomycin. Cultures of the dialysis catheter tip still pending. Remains with end-stage renal disease with treatments on Wednesday. Permacath had been removed. Plan is for placement of a new permacath once cleared by ID. Most recent creatinine 5.00 yesterday. Heart rate is controlled. Remains on amiodarone. 04/25/2020 on seeing the patient for a follow-up. As usual, he is still lethargic yet arousable and he follows commands. Due to his ongoing dialysis requirements, a temporary dialysis catheter was inserted in the right groin and the patient is currently undergoing hemodialysis. The plan is likely to remove the catheter following dialysis specially the patient is still bacteremic with staph aureus. He remains on vancomycin. He is afebrile this morning. A repeat CAT scan of the chest was done and showed moderate-sized bilateral pleural effusion right more than left and my plan is to drain the fluid to make sure there is noinfection or empyema in the right lung. This will be done after the patient is hemodialysis as the patient is going to undergo dialysis for the next 2 hours.. His primary cultures from 04/24/2020 is still positive for gram- positive cocci. The patient is seen today 04/26/2020 and follow-up on the regular medical floor. He is currently resting flat in bed. He is arousable. Still somewhat encephalopathic. He did undergo a right-sided thoracentesis yesterday mainly diagnostic, the fluid was fairly clear and suspect transudate in nature. Cultures and cytology are pending. The plan is for hemodialysis again today. He had a right groin catheter placed on April 24. Continues with MRSA bacteremia. Source is unknown. Plan is for WBC tagged whole-body scan today. He remains on daptomycin. White count 11.8. Hemoglobin 7.2. Neutrophils 10.1. Sodium 134. Potassium 4.7. Bicarb 27. Creatinine 3.69. 04/27/2020, the patient is comfortable in bed. Continues to be septic and the most recent blood cultures from 04/25/2020 showing presumptive MRSA. She'll fluid culture has been negative. The patient underwent a right-sided thoracentesis and was successful without any complications. Meanwhile, the patient underwent a white cells Scan that showed normal physiologic activity in the liver and the spleen and in the bone marrow. Mild uptake throughout the lungs and the patient had some mild areas of diffuse groundglass changes. No suspicious uptake elsewhere and this was nondiagnostic symptoms of localizing a source of infection for this patient. As such, the patient remains on vancomycin. Trough vancomycin today is at temperature of and no fever. Infectious disease switched him to daptomycin yesterday. He is currently receiving a dose of 500 mg every 24 hours. Objective - Vital Signs Vital signs: Vital Signs Temp 98.4 F 04/27/20 08:21 Pulse 68 04/27/20 08:21 Resp 15 04/27/20 08:21 BP 125/66 04/27/20 08:21 Pulse Ox 98 04/27/20 08:21 Intake & Output 04/26/20 04/27/20 04/27/20 18:59 06:59 18:59 Intake Total 600 Output Total 1300 Balance -700 Weight 67.5 kg Intake: Oral 300 Hemodialysis 300 Output: Hemodialysis 1300 Other: Voiding Method External Catheter External Catheter - Exam GENERAL EXAM: Sleepy, but arousable to voice, currently on room air oxygen HEAD: Normocephalic/atraumatic. EYES: Normal reaction of pupils, equal size. Conjunctiva pink, sclera white. NOSE: Clear with pink turbinates. THROAT: No erythema or exudates. NECK: No masses, no JVD, no thyroid enlargement, no adenopathy. CHEST: No chest wall deformity. Symmetrical expansion. Right subclavian has been removed. LUNGS: Equal air entry some rhonchi, but without crackles or wheezes. Breath sounds equal bilaterally. CVS: Regular rate and rhythm, normal S1 and S2, no gallops, soft systolic murmur, loudest at the left midclavicular line fourth to fifth intercostal space, no rubs. Heart rate 65 bpm. ABDOMEN: Soft, nontender. No hepatosplenomegaly, normal bowel sounds, no guarding or rigidity. EXTREMITIES: No clubbing, no edema, no cyanosis, 2+ pulses and upper and lower extremities. Left upper arm AV shunt in place, with positive bruit and thrill MUSCULOSKELETAL: Muscle strength and tone normal. SPINE: No scoliosis or deformity SKIN: No rashes. CENTRAL NERVOUS SYSTEM: Patient is lethargic/sleepy, but does arouse. He is appropriate when he is awake. - Labs CBC & Chem 7: 04/26/20 06:19 04/27/20 07:12 Labs: Abnormal Lab Results - Last 24 Hours (Table) 04/26/20 04/27/20 04/27/20 Range/Units 21:05 06:37 07:12 Sodium 134 L (137-145) mmol/L Carbon Dioxide 33 H (22-30) mmol/L BUN 24 H (9-20) mg/dL Creatinine 2.99 H (0.66-1.25) mg/dL Glucose 127 H (74-99) mg/dL POC Glucose (mg/dL) 62 L 130 H (75-99) mg/dL Calcium 8.2 L (8.4-10.2) mg/dL Microbiology - Last 24 Hours (Table) 04/24/20 08:03 Blood Culture Gram Stain - Final Blood Blood Culture - Final Methicillin resist S. aureus 04/25/20 13:40 Gram Stain - Preliminary Pleural Fluid Body Fluid Culture - Preliminary 04/25/20 06:33 Blood Culture Gram Stain - Preliminary Blood Blood Culture - Preliminary Presumptive MRSA 04/25/20 06:33 Blood Culture - Final Blood Assessment and Plan Plan: 1 Acute hypoxemic respiratory failure, secondary to methicillin-resistant staph aureus sepsis, as well as acute diastolic CHF. The patient is currently on room air oxygen. The patient has recovered from his acute hypoxic respiratory failure. Subsequently, the patient was placed on 2 L and the right-sided pleural effusion was removed and the cultures was negative and the fluid characteristics was more so of a transudate 2 sepsis secondary to Methicillin-resistant staph aureus bacteremia, The patient had persistent bacteremia and the patientwas switched to daptomycin. WBC tech scan evaluation showed no focal abscesses within the body. 3 Status post cardiac arrest, with asystole and/or pulseless electrical activity, brief, with 2 minutes of cardiopulmonary resuscitation. 4 Chronic end-stage renal disease, currently on hemodialysis, noncompliant. Currently undergoing hemodialysis through a temporary dialysis catheter in his right femoral vein 5 Recurrent falls. 6 History of coronary artery disease. 7 Diabetes mellitus, type II, with diabetic neuropathy and nephropathy. 8 Anemia of chronic disease. 9 Obstructive sleep apnea syndrome. 10 Morbid obesity. 11 Right second toe cellulitis. ReCovered 12 Congestive hepatopathy, improved. 13 Leukocytosis, secondary to staph sepsis. 14 Encephalopathy, likely secondary to sepsis. 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 the patient may be considered for another YAYO to rule out endocarditis related to her original YAYO was negative. temporary dialysis catheter still in place and will coordinate with nephrology the timing of the repeat dialysis and the timing of the removal of the temporary dialysis catheter. Will need another set of peripheral blood cultures 2 ID is on the case No active pulmonary or critical care issue this point in time.
[2020-04-27 11:10] LABS: Glucose,Whole Blood 140 mg/dL (75-99)
--- NOTE | 2020-04-27 12:26 | P.PN ---
Subjective Progress Note Date: 04/27/20 f/u for ESRD Objective - Vital Signs Vital signs: Vital Signs Temp 98.4 F 04/27/20 08:21 Pulse 68 04/27/20 08:21 Resp 15 04/27/20 08:21 BP 125/66 04/27/20 08:21 Pulse Ox 98 04/27/20 08:21 Intake & Output 04/26/20 04/27/20 04/27/20 18:59 06:59 18:59 Intake Total 600 Output Total 1300 Balance -700 Weight 67.5 kg Intake: Oral 300 Hemodialysis 300 Output: Hemodialysis 1300 Other: Voiding Method External Catheter External Catheter External Catheter - Exam no acute distress s1 s2 herd lungs clear edema - Labs CBC & Chem 7: 04/26/20 06:19 04/27/20 07:12 Labs: Abnormal Lab Results - Last 24 Hours (Table) 04/26/20 04/27/20 04/27/20 Range/Units 21:05 06:37 07:12 Sodium 134 L (137-145) mmol/L Carbon Dioxide 33 H (22-30) mmol/L BUN 24 H (9-20) mg/dL Creatinine 2.99 H (0.66-1.25) mg/dL Glucose 127 H (74-99) mg/dL POC Glucose (mg/dL) 62 L 130 H (75-99) mg/dL Calcium 8.2 L (8.4-10.2) mg/dL 04/27/20 Range/Units 11:08 Sodium (137-145) mmol/L Carbon Dioxide (22-30) mmol/L BUN (9-20) mg/dL Creatinine (0.66-1.25) mg/dL Glucose (74-99) mg/dL POC Glucose (mg/dL) 140 H (75-99) mg/dL Calcium (8.4-10.2) mg/dL Microbiology - Last 24 Hours (Table) 04/24/20 08:03 Blood Culture Gram Stain - Final Blood Blood Culture - Final Methicillin resist S. aureus 04/25/20 13:40 Gram Stain - Preliminary Pleural Fluid Body Fluid Culture - Preliminary 04/25/20 06:33 Blood Culture Gram Stain - Preliminary Blood Blood Culture - Preliminary Presumptive MRSA Assessment and Plan Assessment: 1. MRSA bacteremia persistent 2. ESRD on HD 3. Anemia with ESRD 4. ckd-mbd 5. htn with esrd Plan: 1. ok to d/c [facility]. line holiday over the weekend and check labs on wednesday. 2. plan hd based on labs on wednesday
--- NOTE | 2020-04-27 13:34 | P.PN ---
Subjective Progress Note Date: 04/27/20 59 years old male patient of Dr. Mckeon with past medical history of end-stage renal disease on hemodialysis Wednesday and Wednesday, coronary artery disease post angioplasty, and stent placement last catheterization was February 09 with stent of the left circumflex and proximal LAD, atrial fibrillation, diabetes, GERD, hyperlipidemia, hypertension. He does have intermittent lesion along the mid LAD and follows Dr. Hinojosa on as outpatient. Patient was last admitted in February 16 with chest pain and unstable angina, comes in this time with change in mental status, and multiple falls at home. Patient is unable to provide any history due to increased drowsiness. History obtained from the chart. It appears patient had a fall in the bathroom as his leg gave out. He denies any dizziness or syncope episode. CT of the head was obtained that showed no acute lesions. Patient missed 2 dialysis appointment, last hemodialysis was 1 week ago. In the ER patient's blood pressure was 202/94 temp of 99 pulse 91 and respiratory rate 19 on assessment of patient's lab patient had a any, hemoglobin 10.7 hematocrit 32.4 sodium 133 chloride 92 bicarb 21 BUN 86 creatinine 7.56 glucose 237. Urinalysis does suggest leukocytosis with positive blood and positive protein. Urine culture was sent. On evaluation today patient is found to be lying in bed. He is unable to provide any history. Patient did Gabapentin, Dilaudid and 1 L of bolus of IV fluids. We will hold pain medication. Decrease gabapentin 100 3 times a day. Patient will be started on levofloxacin renally adjusted to 250 every 48 hours. Ativan reduced to 0.5 mg 3 times a day. Hold off diuretics. Nephrology consulted At 2:30 this afternoon patient became unresponsive as patient was hooked to the dialysis. The A team responded to the patient did mention patient was pulseless. A brief CPR was done for 2 minutes, with return of spontaneous circulation and return of the pulse with no need of epinephrine. Patient's blood pressure was found to be low. Cardiology consult will be placed. Echo will be ordered. Patient was noted to be in atrial fibrillation and was transferred to the ICU on nonrebreather mask. Another attempt was made to start the hemodialysis while patient was arousable and follows all commands he was found to be more lethargic. Patient's blood pressure dropped on hemodialysis an d became unresponsive not responding to sternal rub. Was noted to be in A. fib with RVR. Patient was placed on BiPAP intubation was not required. 04/12 patient currently in the ICU. Vitals are stable with temp of 98 pulse 67 and respiratory rate 19 and blood pressure 156/71 oxygen saturation 95% on 40% on BiPAP. Patient has leukocytosis of 18 improved from 20 hemoglobin 9.9, sodium 134 chloride 97 bicarb 19 BUN 104 creatinine 8.15 phosphorus 10.7 and total bilirubin 1.7 AST 2932 ALT 2727 alkaline phosphatase 449. Cardiology evaluated the patient thinks patient's episode of unresponsiveness could be vasovagal from low blood pressure. Continue to monitor patient's blood pressure with possible orthostatics when patient is stable. Metoprolol dose increased to 25 twice a day. Initiated on amiodarone 100 mg daily patient is being dialyzed today with minimal ultrafiltration. We will hold hydralazine and Cozaar for systolic less than 125. Patient currently off pressors. Spoke to patient's at bedside who mentioned patient has been falling for the past few months. He had MRI of the lower back done as outpatient that suggested severe spinal stenosis. Patient was set up for PT as outpatient but has been forgetting to often due to weakness in his legs. He has a outpatient appointment pending with an orthopedic surgery 04/13: Patient still in the ICU , on BiPAP, he still have less responsiveness, quite hypertensive today back on vasopressor. Patient was diagnosed tolerate hemodialysis for long had only 1 hour, still currently in significant encephalopathy status, continue IV antibiotic for now there is a small gangrenous spot on the right second toe. 04/14: Patient is off vasopressor, still on BiPAP, still running back and forth between tachycardia and A. fib. No hemodialysis done today. Patient is very confused is taking his lines And all attachment out he required a sitter today. 04/15: Patient is off vasopressor, off BiPAP, he is more awake alert today, he is more hemodynamically stable. He is on hemodialysis and blood pressure is holding well so far should be able to do full cycle of hemodialysis today. Source of infection is still unclear suspect to be dialysis catheter which might be pulled out to place another catheter either in the femoral area or use the fistula graft had in the left forearm. 04/16: Patient evaluated in the ICU. Patient is arousable but easily drifts back to sleep. He had dialysis yesterday, with possible plans for dialysis again today due to elevated BUN/creatinine. Possible source of infection still unclear and suspected to be dialysis catheter. Nephrology plans on repeat blood cultures via dialysis catheter, if positive will discuss discontinuing the IJ permacath. Infectious disease added Cefepime for worsening white count, and continue on Vancomycin. Repeat chest x-ray shows cardiomegaly with left basilar atelectasis. Plans to transfer of the ICU today to select care unit. 04/17: Patient's right IJ permacath dialysis catheter was removed yesterday. Patient's nurse reports that there was pus on the end and this has been cultured. Patient remains in the intensive care unit but has been downgraded to cardiac stepdown unit. Patient has been afebrile, heart rate 57, blood pressure 109/59, pulse ox 100% on 2 L nasal cannula. air sampling and monitoring has been a sinus rhythm. He does have short bouts of atrial fibrillation most often noted when he drinks cold liquids. Repeat blood work reveals WBC of 32, hemoglobin 9.6, platelet count 285. BUN 47 creatinine 3.63, potassium 4.3. Blood sugars running between 85 and 166. Total bilirubin 1.3, AST 98, ALT 517, alkaline phosphatase 391. Liver function tests are improved from yesterday. Chest x-ray today reveals cardiomegaly. Interstitial density slightly increased. Correlate to exclude developing pulmonary vascular congestion. Left base remains under penetrated area and some underlying atelectasis or infiltrate or effusion possible. 04/18: Patient is seen today on the cardiac stepdown unit. Patient is awake and answering questions but speech is slow and slurred. Reviewed plan of care with him and he verbalizes understanding. Patient is afebrile, heart rate 66, blood pressure 123/55, pulse ox 99% on 2 L nasal cannula. Catheter tip culture is showing presumptive MRSA. Repeat blood cultures have been ordered to see if bacteremia is clearing. Patient is currently on vancomycin pharmacy dosing and cefepime. YAYO performed by Dr. Bowie reveals no evidence of infective endocarditis. No evidence of intracardiac valves vegetation or abscess. Aortic sclerosis, trileaflet mildly thickened with trace aortic insufficiency. Thickened anterior posterior mitral leaflets with moderate mitral regurgitation. Moderate tricuspid regurgitation. Moderate pulmonic insufficiency. Mild biatrial enlargement. Intact anterior atrial septum and intact left atrial appendage without thrombus. Low normal LV with EF of 50%. No pericardial e ffusion. 04/19: Patient had worsening of his mental status during the night and remains confused worse than yesterday. Leandra is on hold this morning for temporary line placement for dialysis. Dr. Nguyen is planning on hemodialysis today and tomorrow. Patient is only able to state that he feels miserable and terrible but nothing specific. He has been afebrile, heart rate 74, blood pressure 161 /75, pulse ox 91% on room air. WBC is 28.4, hemoglobin 8.6, platelet count 285. CO2 19, BUN 75 and creatinine 5.85. Blood sugars running between 205 and 235. Vancomycin level XXI.5. Repeat blood cultures obtained on April 18 are also positive. CAT scan of the abdomen and pelvis with contrast revealed moderate anasarca. Small bilateral pleural effusions with adjacent atelectasis superimpo sed infiltrates not excluded. Mild urinary bladder wall thickening, correlate for cystitis. No significant contrast excretion into the renal collection system on the delayed images. No significant intra-abdominal pelvic abnormality. Tetracycline has recommended continuing vancomycin. 04/20: Patient had a temporary dialysis catheter placed in the right groin and underwent hemodialysis treatment yesterday but due to patient's restlessness it was not a good treatment. His mental status however is significantly improved today. We will plan to order Dilaudid 1 mg before dialysis treatment and if necessary Valium 5 mg can be given. Patient's nurses been updated. Dr. Wills is planning to remove dialysis catheter following treatment today. Blood cultures remain positive including those drawn on April 19. Repeat blood cultures ordered for tomorrow. Dr. Presley has been updated. He has been afebrile, heart rate 65, blood pressure 134/72, pulse ox 97% on 2 L nasal cannula. Blood sugars running between 90-162. Vancomycin level XVIII. 04/21: She underwent dialysis yesterday with removal of a half a liter of fluid as was planned. Patient is scheduled for another treatment today. Patient states that she is feeling better. Mental status is improved from 2 days ago. Plan is to remove dialysis catheter after today's treatment. His blood cultures that were obtained yesterday are positive. Patient has been afebrile, heart rate 65, blood pressure 118/66, pulse ox 94% on 2 L nasal cannula. Creatinine 4.19. Blood sugars are running between 99 and 146. Patient did well with Dilaudid given 1 mg prior to dialysis treatment. We will plan to repeat this today. 04/22: Patient had dialysis yesterday and dialysis catheter was subsequently removed. Repeat blood cultures obtained on April 21 are also positive. Patient denies any new complaints today. No chest pain, shortness of breath. Patient continues to have some confusion. Losartan has been discontinued by nephrology. He has been afebrile, heart rate 62, blood pressure 126/81, pulse ox 99% on 3 L nasal cannula. Repeat blood work reveals W BC at 22.5, hemoglobin 7.5, platelet count 215. Electrolytes normal, BUN 37 creatinine 3.9. Blood sugars running between 86 and 157. Total bilirubin 0.7, AST 23, ALT 107, alkaline phosphatase 226. Vancomycin level XIX.2. 04/23: Patient continues to be confused more so than yesterday. That blood sugars have been elevated later in the afternoon and evening and scheduled NovoLog added to his regime. Repeat blood work reveals sodium of 135, potassium 4.9, chloride 101, CO2 24, BUN 51 creatinine 5. Blood sugars are running between 184 and 263. Repeat blood culture has been obtained today and is pending. 04/24: She appears to be mentally more alert today. He is sleeping and awakens easily. He is having difficulty sleeping at nighttime. Melatonin increased to 9 mg at bedtime. Vistaril discontinued. We have ordered a CAT scan of the chest to rule out abscess. CAT scan of the chest revealed small bilateral pleural effusions. Clinical consideration for empyema. Compressive atelectasis versus consolidation from pneumonia in the dependent lung bases. No suspicious abscess. He continues to have positive blood cultures pharmacy is dosing vancomycin at this point. She and is complaining of chest wall pain when he coughs at site of previous catheter. 04/25: Patient had temporary else's catheter placed yesterday afternoon with Dr. Santizo. Patient is undergoing hemodialysis today. He complains of not being able to sleep with no improvement with melatonin. Trazodone 25 mg at bedtime added. Dr. Beverly is planning to do a right-sided diagnostic thoracentesis after dialysis treatment. He is continued on vancomycin. Patient has been afebrile, heart rate 63, blood pressure 147/65, pulse ox 90% on 2 L nasal cannula. Blood sugars are running between 98 and 151. Blood cultures from April 24 are also positive. Vistaril resumed per patient's request for itching while having dialysis treatment. 04/26: Patient underwent right-sided thoracentesis yesterday with 500 ML's of turbid fluid removed. Cultures are in progress. Patient is afebrile. Blood pressure 161/62, pulse ox 97% on 2 L, heart rate 66. Repeat blood work reveals WBC 11.8, hemoglobin 7.2, platelet count 183. Sodium 134, BUN 32 and creatinine 3.79. Blood sugars running between [address] Presley has changed antibiotics to daptomycin. 04/27: Patient is found resting in bed comfortably without any acute distress. Patient has no point or concerns at this time. Patient remains afebrile. Blood pressure 125/66, heart rate 68, respirations 15 and nonlabored shallow, pulse ox 98% on 2 L via nasal cannula. Culture from 04/25 presumptive MRSA. REVIEW OF SYSTEMS Constitutional: No fever, no chills, no night sweats. No weight change. Repo rted weakness, reported fatigue reported lethargy. Reported daytime sleepiness. EENT: No headache. No blurred vision or double vision, no loss of vision. No loss of Hearing, no ringing in the ears, no dizziness. No nasal drainage or congestion. No epistaxis. No sore throat. Lungs: No shortness of breath, cough, no sputum production. No wheezing. Cardiovascular: No chest pain, no lower extremity edema. No palpitations. No paroxysmal nocturnal dyspnea. No orthopnea. No lightheadedness or dizziness. No syncopal episodes. Abdominal: No abdominal pain. No nausea, vomiting. No diarrhea. No constipation. No bloody or tarry stools. No loss of appetite. Genitourinary: No dysuria, increased frequency, urgency. No urinary retention. Musculoskeletal: No myalgias. No muscle weakness, no gait dysfunction, no frequent falls. No back pain. No neck pain. Integumentary: No wounds, no lesions. No rash or pruritus. No unusual bruising. No change in hair or nails. Neurologic: No aphasia. No facial droop. Reported confusion. No head injury. No headache. No paralysis. No paresthesia. Psychiatric: No depression. No anxiety. Reports insomnia Endocrine: Noted abnormal blood sugars. PHYSICAL EXAMINATION Gen: This is a 59-year-old male patient seen on the cardiac stepdown unit. He is resting in bed and appears to be in no acute respiratory distress. HEENT: Head is atraumatic, normocephalic. Pupils equal, round. Sclerae is anicteric. NECK: Supple. No JVD. No lymphadenopathy. No thyromegaly. LUNGS: Clear to auscultation. No wheezes or rhonchi. No intercostal retractions. HEART: Regular rate and rhythm. 2/6 systolic murmur. ABDOMEN: Soft. Bowel sounds are present. No masses. No tenderness. EXTREMITIES: No pedal edema. No calf tenderness. Right groin temporary dialysis catheter. NEUROLOGICAL: Patient is oriented to person and place. He is able to converse, answer questions and follow commands. ASSESSMENT AND PLAN 1. Sepsis and MRSA bacteremia secondary to dialysis catheter. Permacath has been removed as of yesterday and culture of tip done. Patient is followed by Dr. Presley and continued on vancomycin. Temporary catheter was removed yesterday, planned for permanent catheter placement once blood cultures are clear. Blood cultures remain positive from 04/21. CAT scan of the chest as above. Noted consideration for empyema. Status post right-sided diagnostic thoracentesis. Antibiotics changed to daptomycin 2. Metabolic encephalopathy secondary to sepsis, uremia, pain medication and benzodiazepines improving. Lorazepam has been discontinued. 3. End-stage renal disease on hemodialysis. Permanent catheter will be placed once bacteremia is cleared. Consult with nephrology and vascular surgery appreciated. Continue PhosLo 1334 mg 3 times daily. 2. Temporary dialysis catheter for hemodialysis today 4. Fall secondary to degenerative disc disease and spinal stenosis. MRI as an outpatient revealed severe spinal stenosis. Patient has outpatient orthopedic evaluation pending. PT and OT following. 5. Acute syncopal episode most likely vasovagal, patient had brief CPR. Card iology consult appreciated. 6. History of coronary artery disease with previous PTCA to LAD and circumflex. Lexiscan was negative on previous admission. Continue Plavix 75 mg daily, Imdur 30 mg daily, Lopressor 25 mg in the morning and evening. 7. Paroxysmal atrial fibrillation. Continue eliquis 2.5 mg twice daily and metoprolol, amiodarone at 200 mg daily. (Eliquis on hold) 8. Ischemic cardiomyopathy. 9. Diabetes mellitus type 2, insulin requiring, uncontrolled with hyperglycemia. Continue Levemir 20 units daily, add NovoLog scale 3 units with meals and continue NovoLog scale before meals and at bedtime, 10. Diabetic neuropathy. Continue gabapentin 100 mg 3 times daily. 11. Hypertension. Continue hydralazine 25 mg 3 times daily, losartan has been discontinued by nephrology. 12. Anemia of chronic disease. Continue to monitor. 13. GI prophylaxis. Continue Protonix. 14. DVT prophylaxis. Continue eliquis. DISCHARGE PLAN [facility]. Impression and plan of care have been directed as dictated by the signing physician. Karina Aponte nurse practitioner acting as scribe for signing physician. Objective - Vital Signs Vital signs: Vital Signs Temp 98.4 F 04/27/20 08:21 Pulse 68 04/27/20 08:21 Resp 15 04/27/20 08:21 BP 125/66 04/27/20 08:21 Pulse Ox 98 04/27/20 08:21 Intake & Output 04/26/20 04/27/20 04/27/20 18:59 06:59 18:59 Intake Total 600 Output Total 1300 Balance -700 Weight 67.5 kg Intake: Oral 300 Hemodialysis 300 Output: Hemodialysis 1300 Other: Voiding Method External Catheter External Catheter External Catheter - Labs CBC & Chem 7: 04/26/20 06:19 04/27/20 07:12 Labs: Abnormal Lab Results - Last 24 Hours (Table) 04/26/20 04/27/20 04/27/20 Range/Units 21:05 06:37 07:12 Sodium 134 L (137-145) mmol/L Carbon Dioxide 33 H (22-30) mmol/L BUN 24 H (9-20) mg/dL Creatinine 2.99 H (0.66-1.25) mg/dL Glucose 127 H (74-99) mg/dL POC Glucose (mg/dL) 62 L 130 H (75-99) mg/dL Calcium 8.2 L (8.4-10.2) mg/dL 04/27/20 Range/Units 11:08 Sodium (137-145) mmol/L Carbon Dioxide (22-30) mmol/L BUN (9-20) mg/dL Creatinine (0.66-1.25) mg/dL Glucose (74-99) mg/dL POC Glucose (mg/dL) 140 H (75-99) mg/dL Calcium (8.4-10.2) mg/dL Microbiology - Last 24 Hours (Table) 04/24/20 08:03 Blood Culture Gram Stain - Final Blood Blood Culture - Final Methicillin resist S. aureus 04/25/20 13:40 Gram Stain - Preliminary Pleural Fluid Body Fluid Culture - Preliminary 04/25/20 06:33 Blood Culture Gram Stain - Preliminary Blood Blood Culture - Preliminary Presumptive MRSA
[2020-04-27] MEDS ORDERED: Acetaminophen-Codeine 300-30mg TAB PO PRN (13:58)
[2020-04-27 15:50] LABS: Glucose,Whole Blood 57 mg/dL (75-99)
[2020-04-27 16:18] LABS: Glucose,Whole Blood 73 mg/dL (75-99)
[2020-04-27 16:29] LABS: Glucose,Whole Blood 78 mg/dL (75-99)
[2020-04-27] MEDS: HYDROcodone/APAP 5-325MG 1 EACH TAB PO PRN (17:24)
[2020-04-27 17:35] LABS: Glucose,Whole Blood 130 mg/dL (75-99)
[2020-04-27] MEDS: traZODone HCL 50 MG TAB PO SCH (20:26)
[2020-04-27 20:42] LABS: Glucose,Whole Blood 198 mg/dL (75-99)
[2020-04-27] MEDS: DAPTOmycin 500 MG in SODIUM CHLORIDE 0.9% 50 ML IVPB SCH (22:15)
[2020-04-28] MEDS: HYDROcodone/APAP 5-325MG 1 EACH TAB PO PRN (01:56)
[2020-04-28 07:00] LABS: Glucose,Whole Blood 142 mg/dL (75-99)
[2020-04-28] MEDS: INSULIN ASPART (NovoLOG) 100 UNIT/ML VIAL SQ SCH ×7 (07:19→21:18)
[2020-04-28] MEDS: INSULIN DETEMIR (LEVEMIR) 100 UNIT/ML SYR SQ SCH (07:20)
[2020-04-28] MEDS: PANTOPRAZOLE 40 MG TABLET PO SCH (07:21)
[2020-04-28] MEDS: hydrALAZINE HCL 25 MG TAB PO SCH ×4 (07:21→21:18)
[2020-04-28] MEDS: METOPROLOL TARTRATE 25 MG TAB PO SCH ×3 (07:21→21:17)
[2020-04-28] MEDS: AMIODARONE 200 MG TAB PO SCH ×2 (07:21→07:37)
[2020-04-28] MEDS: allopurinoL 100 MG TAB PO SCH (07:21)
[2020-04-28] MEDS: GABAPENTIN 100 MG CAP PO SCH ×3 (07:21→21:18)
[2020-04-28] MEDS: CLOPIDOGREL 75 MG TAB PO SCH (07:21)
[2020-04-28] MEDS: ISOSORBIDE MONONITRATE ER 30 MG TAB.ER.24H PO SCH ×2 (07:25→07:37)
--- NOTE | 2020-04-28 11:23 | P.PN ---
Subjective Progress Note Date: 04/28/20 04/22/2020 I'm seeing the patient for a follow-up. The patient is still lethargic and on and off confused. He is able to some simple conversations. The patient has multiple medical problems and comorbidities. His post cardiac arrest. He has an incisional disease on hemodialysis, coronary artery disease, diabetes mellitus type 2, chronic anemia, and obstructive sleep apnea. He is a quite complicated case of staphylococcal sepsis/pneumonia. The patient is on vancomycin. No evidence of any endocarditis. The patient is afebrile and he is currently hemodynamically stable on room air oxygen. Note that, the patient is on hemodialysis for incisional disease. His hemodialysis catheter was removed due to the bacteremia and sepsis and a new hemodialysis catheter was inserted and subsequently removed on 04/21/2020. The most recent blood cultures from 04/21/2020 are still positive and the patient's catheter was again removed.. On 04/23/2020, the patient remains encephalopathic, probably related to underlying sepsis. His blood pressure is still positive for gram-positive cocci/MRSA. He does not have any catheters in place. Repeat blood culture was ordered on 04/22/2020. The previously obtained and removed catheter for dialysis was removed and the tip was sent for cultures and the results are still pending for that. Meanwhile, the patient's vancomycin trough is at 19.2. The dose being adjusted and monitored by pharmacy. He is afebrile. No chills. No fever. No shortness of breath. He is laying comfortably in bed. He is sleeping for most of the time. His last hemodialysis on Wednesday. A total of 1 L of fluid was removed. It seems that the patient has had intolerance another temporary dialysis catheter for another session of dialysis either today or tomorrow. This needs to be orchestrated and arranged by nephrology. The patient's white cell count is at 22.5 and the hemoglobin is at 7.5. BUN is a 51 with a creatinine of 5.0. The patient is seen today 04/24/2020 in follow-up on the regular medical floor. He remains encephalopathic. Blood cultures continued to show presumptive MRSA. Remains on vancomycin. Cultures of the dialysis catheter tip still pending. Remains with end-stage renal disease with treatments on Wednesday. Permacath had been removed. Plan is for placement of a new permacath once cleared by ID. Most recent creatinine 5.00 yesterday. Heart rate is controlled. Remains on amiodarone. 04/25/2020 on seeing the patient for a follow-up. As usual, he is still lethargic yet arousable and he follows commands. Due to his ongoing dialysis requirements, a temporary dialysis catheter was inserted in the right groin and the patient is currently undergoing hemodialysis. The plan is likely to remove the catheter following dialysis specially the patient is still bacteremic with staph aureus. He remains on vancomycin. He is afebrile this morning. A repeat CAT scan of the chest was done and showed moderate-sized bilateral pleural effusion right more than left and my plan is to drain the fluid to make sure there is noinfection or empyema in the right lung. This will be done after the patient is hemodialysis as the patient is going to undergo dialysis for the next 2 hours.. His primary cultures from 04/24/2020 is still positive for gram- positive cocci. The patient is seen today 04/26/2020 and follow-up on the regular medical floor. He is currently resting flat in bed. He is arousable. Still somewhat encephalopathic. He did undergo a right-sided thoracentesis yesterday mainly diagnostic, the fluid was fairly clear and suspect transudate in nature. Cultures and cytology are pending. The plan is for hemodialysis again today. He had a right groin catheter placed on April 24. Continues with MRSA bacteremia. Source is unknown. Plan is for WBC tagged whole-body scan today. He remains on daptomycin. White count 11.8. Hemoglobin 7.2. Neutrophils 10.1. Sodium 134. Potassium 4.7. Bicarb 27. Creatinine 3.69. 04/27/2020, the patient is comfortable in bed. Continues to be septic and the most recent blood cultures from 04/25/2020 showing presumptive MRSA. She'll fluid culture has been negative. The patient underwent a right-sided thoracentesis and was successful without any complications. Meanwhile, the patient underwent a white cells Scan that showed normal physiologic activity in the liver and the spleen and in the bone marrow. Mild uptake throughout the lungs and the patient had some mild areas of diffuse groundglass changes. No suspicious uptake elsewhere and this was nondiagnostic symptoms of localizing a source of infection for this patient. As such, the patient remains on vancomycin. Trough vancomycin today is at temperature of and no fever. Infectious disease switched him to daptomycin yesterday. He is currently receiving a dose of 500 mg every 24 hours. 04/28/2020, the patient is still bacteremic with gram-positive cocci based on the most recent blood culture that was obtained on 04/27/2020. The patient is currently on daptomycin. Thoracentesis of the right lung yielded no evidence of any empyema poor pleural space infection. White cell scan was also done that showed no evidence of any localized abscesses. Consider doing another YAYO. Meanwhile, the temporary dialysis catheter was removed and the patient does not have any endovascular catheters at this point in time. He is lethargic related to his ongoing septicemia with staph aureus. No significant respiratory distress. No cough or sputum production. He is arousable. He remains Objective - Vital Signs Vital signs: Vital Signs Temp 98 F 04/28/20 07:30 Pulse 59 L 04/28/20 07:30 Resp 17 04/28/20 07:30 BP 103/66 04/28/20 07:30 Pulse Ox 92 L 04/28/20 07:30 Intake & Output 04/27/20 04/28/20 04/28/20 18:59 06:59 18:59 Output Total 0 0 Balance 0 0 Output: Urine 0 0 Other: Voiding Method External Catheter External Catheter External Catheter - Exam GENERAL EXAM: Sleepy, but arousable to voice, currently on room air oxygen HEAD: Normocephalic/atraumatic. EYES: Normal reaction of pupils, equal size. Conjunctiva pink, sclera white. NOSE: Clear with pink turbinates. THROAT: No erythema or exudates. NECK: No masses, no JVD, no thyroid enlargement, no adenopathy. CHEST: No chest wall deformity. Symmetrical expansion. Right subclavian has been removed. LUNGS: Equal air entry some rhonchi, but without crackles or wheezes. Breath sounds equal bilaterally. CVS: Regular rate and rhythm, normal S1 and S2, no gallops, soft systolic murmur, loudest at the left midclavicular line fourth to fifth intercostal space, no rubs. Heart rate 65 bpm. ABDOMEN: Soft, nontender. No hepatosplenomegaly, normal bowel sounds, no guarding or rigidity. EXTREMITIES: No clubbing, no edema, no cyanosis, 2+ pulses and upper and lower extremities. Left upper arm AV shunt in place, with positive bruit and thrill MUSCULOSKELETAL: Muscle strength and tone normal. SPINE: No scoliosis or deformity SKIN: No rashes. CENTRAL NERVOUS SYSTEM: Patient is lethargic/sleepy, but does arouse. He is appropriate when he is awake. - Labs CBC & Chem 7: 04/26/20 06:19 04/27/20 07:12 Labs: Abnormal Lab Results - Last 24 Hours (Table) 04/27/20 04/27/20 04/27/20 Range/Units 15:48 16:07 17:33 POC Glucose (mg/dL) 57 L 73 L 130 H (75-99) mg/dL 04/27/20 04/28/20 Range/Units 20:40 06:56 POC Glucose (mg/dL) 198 H 142 H (75-99) mg/dL Microbiology - Last 24 Hours (Table) 04/27/20 12:28 Blood Culture Gram Stain - Preliminary Blood 04/27/20 12:03 Blood Culture Gram Stain - Preliminary Blood 04/27/20 12:03 Blood Culture - Final Blood 04/27/20 12:28 Blood Culture - Final Blood 04/25/20 13:40 Anaerobic Culture - Preliminary Pleural Fluid 04/25/20 06:33 Blood Culture Gram Stain - Final Blood Blood Culture - Final Methicillin resist S. aureus 04/25/20 13:40 Gram Stain - Preliminary Pleural Fluid Body Fluid Culture - Preliminary 04/24/20 08:03 Blood Culture Gram Stain - Final Blood Blood Culture - Final Methicillin resist S. aureus Assessment and Plan Plan: 1 Acute hypoxemic respiratory failure, secondary to methicillin-resistant staph aureus sepsis, as well as acute diastolic CHF. The patient is currently on room air oxygen. The patient has recovered from his acute hypoxic respiratory failure. Subsequently, the patient was placed on 2 L and the right-sided pleural effusion was removed and the cultures was negative and the fluid characteristics was more so of a transudate 2 sepsis secondary to Methicillin-resistant staph aureus bacteremia, The patient had persistent bacteremia and the patientwas switched to daptomycin. WBC tech scan evaluation showed no focal abscesses within the body. The most recent blood culture from 04/27/2020 is still positive for gram-positive cocci and the patient continues to be persistently bacteremic. 3 Status post cardiac arrest, with asystole and/or pulseless electrical activity, brief, with 2 minutes of cardiopulmonary resuscitation. 4 Chronic end-stage renal disease, currently on hemodialysis, noncompliant. Currently undergoing hemodialysis through a temporary dialysis catheter in his right femoral vein 5 Recurrent falls. 6 History of coronary artery disease. 7 Diabetes mellitus, type II, with diabetic neuropathy and nephropathy. 8 Anemia of chronic disease. 9 Obstructive sleep apnea syndrome. 10 Morbid obesity. 11 Right second toe cellulitis. ReCovered 12 Congestive hepatopathy, improved. 13 Leukocytosis, secondary to staph sepsis. 14 Encephalopathy, likely secondary to sepsis. 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 the patient may be considered for another YAYO to rule out endocarditis related to her original YAYO was negative. temporary dialysis catheter was removed and the patient does not have any intravascular catheters this point in time ID is on the case No active pulmonary or critical care issue this point in time. The active issue remains ongoing septicemia as the patient is persistently bacteremic with staph aureus without any localized abscess or infected source. Consider another YAYO and this was discussed with cardiology. His remains on daptomycin 500 mg every 24 hours.
--- NOTE | 2020-04-28 11:30 | P.PN ---
Subjective Progress Note Date: 04/28/20 f/u for ESRD Objective - Vital Signs Vital signs: Vital Signs Temp 98 F 04/28/20 07:30 Pulse 59 L 04/28/20 07:30 Resp 17 04/28/20 07:30 BP 103/66 04/28/20 07:30 Pulse Ox 92 L 04/28/20 07:30 Intake & Output 04/27/20 04/28/20 04/28/20 18:59 06:59 18:59 Output Total 0 0 Balance 0 0 Output: Urine 0 0 Other: Voiding Method External Catheter External Catheter External Catheter - Exam no acute distress s1 s2 herd lungs clear edema - Labs CBC & Chem 7: 04/26/20 06:19 04/27/20 07:12 Labs: Abnormal Lab Results - Last 24 Hours (Table) 04/27/20 04/27/20 04/27/20 Range/Units 15:48 16:07 17:33 POC Glucose (mg/dL) 57 L 73 L 130 H (75-99) mg/dL 04/27/20 04/28/20 Range/Units 20:40 06:56 POC Glucose (mg/dL) 198 H 142 H (75-99) mg/dL Microbiology - Last 24 Hours (Table) 04/27/20 12:28 Blood Culture Gram Stain - Preliminary Blood 04/27/20 12:03 Blood Culture Gram Stain - Preliminary Blood 04/27/20 12:03 Blood Culture - Final Blood 04/27/20 12:28 Blood Culture - Final Blood 04/25/20 13:40 Anaerobic Culture - Preliminary Pleural Fluid 04/25/20 06:33 Blood Culture Gram Stain - Final Blood Blood Culture - Final Methicillin resist S. aureus 04/25/20 13:40 Gram Stain - Preliminary Pleural Fluid Body Fluid Culture - Preliminary 04/24/20 08:03 Blood Culture Gram Stain - Final Blood Blood Culture - Final Methicillin resist S. aureus Assessment and Plan Assessment: 1. MRSA bacteremia persistent 2. ESRD on HD 3. Anemia with ESRD 4. ckd-mbd 5. htn with esrd Plan: 1. Blake was discontinued yesterday, monitor and repeat labs Wednesday. Based on the labs plan dialysis with new catheter. 2. Supportive care
[2020-04-28] MEDS: DARBEPOETIN ALFA 40 MCG/0.4 ML SYRINGE SQ SCH (11:31)
--- NOTE | 2020-04-28 11:32 | P.PN ---
Subjective Progress Note Date: 04/28/20 59 years old male patient of Dr. Mckeon with past medical history of end-stage renal disease on hemodialysis Wednesday and Wednesday, coronary artery disease post angioplasty, and stent placement last catheterization was February 09 with stent of the left circumflex and proximal LAD, atrial fibrillation, diabetes, GERD, hyperlipidemia, hypertension. He does have intermittent lesion along the mid LAD and follows Dr. Hinojosa on as outpatient. Patient was last admitted in February 16 with chest pain and unstable angina, comes in this time with change in mental status, and multiple falls at home. Patient is unable to provide any history due to increased drowsiness. History obtained from the chart. It appears patient had a fall in the bathroom as his leg gave out. He denies any dizziness or syncope episode. CT of the head was obtained that showed no acute lesions. Patient missed 2 dialysis appointment, last hemodialysis was 1 week ago. In the ER patient's blood pressure was 202/94 temp of 99 pulse 91 and respiratory rate 19 on assessment of patient's lab patient had a any, hemoglobin 10.7 hematocrit 32.4 sodium 133 chloride 92 bicarb 21 BUN 86 creatinine 7.56 glucose 237. Urinalysis does suggest leukocytosis with positive blood and positive protein. Urine culture was sent. On evaluation today patient is found to be lying in bed. He is unable to provide any history. Patient did Gabapentin, Dilaudid and 1 L of bolus of IV fluids. We will hold pain medication. Decrease gabapentin 100 3 times a day. Patient will be started on levofloxacin renally adjusted to 250 every 48 hours. Ativan reduced to 0.5 mg 3 times a day. Hold off diuretics. Nephrology consulted At 2:30 this afternoon patient became unresponsive as patient was hooked to the dialysis. The A team responded to the patient did mention patient was pulseless. A brief CPR was done for 2 minutes, with return of spontaneous circulation and return of the pulse with no need of epinephrine. Patient's blood pressure was found to be low. Cardiology consult will be placed. Echo will be ordered. Patient was noted to be in atrial fibrillation and was transferred to the ICU on nonrebreather mask. Another attempt was made to start the hemodialysis while patient was arousable and follows all commands he was found to be more lethargic. Patient's blood pressure dropped on hemodialysis an d became unresponsive not responding to sternal rub. Was noted to be in A. fib with RVR. Patient was placed on BiPAP intubation was not required. 04/12 patient currently in the ICU. Vitals are stable with temp of 98 pulse 67 and respiratory rate 19 and blood pressure 156/71 oxygen saturation 95% on 40% on BiPAP. Patient has leukocytosis of 18 improved from 20 hemoglobin 9.9, sodium 134 chloride 97 bicarb 19 BUN 104 creatinine 8.15 phosphorus 10.7 and total bilirubin 1.7 AST 2932 ALT 2727 alkaline phosphatase 449. Cardiology evaluated the patient thinks patient's episode of unresponsiveness could be vasovagal from low blood pressure. Continue to monitor patient's blood pressure with possible orthostatics when patient is stable. Metoprolol dose increased to 25 twice a day. Initiated on amiodarone 100 mg daily patient is being dialyzed today with minimal ultrafiltration. We will hold hydralazine and Cozaar for systolic less than 125. Patient currently off pressors. Spoke to patient's at bedside who mentioned patient has been falling for the past few months. He had MRI of the lower back done as outpatient that suggested severe spinal stenosis. Patient was set up for PT as outpatient but has been forgetting to often due to weakness in his legs. He has a outpatient appointment pending with an orthopedic surgery 04/13: Patient still in the ICU , on BiPAP, he still have less responsiveness, quite hypertensive today back on vasopressor. Patient was diagnosed tolerate hemodialysis for long had only 1 hour, still currently in significant encephalopathy status, continue IV antibiotic for now there is a small gangrenous spot on the right second toe. 04/14: Patient is off vasopressor, still on BiPAP, still running back and forth between tachycardia and A. fib. No hemodialysis done today. Patient is very confused is taking his lines And all attachment out he required a sitter today. 04/15: Patient is off vasopressor, off BiPAP, he is more awake alert today, he is more hemodynamically stable. He is on hemodialysis and blood pressure is holding well so far should be able to do full cycle of hemodialysis today. Source of infection is still unclear suspect to be dialysis catheter which might be pulled out to place another catheter either in the femoral area or use the fistula graft had in the left forearm. 04/16: Patient evaluated in the ICU. Patient is arousable but easily drifts back to sleep. He had dialysis yesterday, with possible plans for dialysis again today due to elevated BUN/creatinine. Possible source of infection still unclear and suspected to be dialysis catheter. Nephrology plans on repeat blood cultures via dialysis catheter, if positive will discuss discontinuing the IJ permacath. Infectious disease added Cefepime for worsening white count, and continue on Vancomycin. Repeat chest x-ray shows cardiomegaly with left basilar atelectasis. Plans to transfer of the ICU today to select care unit. 04/17: Patient's right IJ permacath dialysis catheter was removed yesterday. Patient's nurse reports that there was pus on the end and this has been cultured. Patient remains in the intensive care unit but has been downgraded to cardiac stepdown unit. Patient has been afebrile, heart rate 57, blood pressure 109/59, pulse ox 100% on 2 L nasal cannula. night monitor has been a sinus rhythm. He does have short bouts of atrial fibrillation most often noted when he drinks cold liquids. Repeat blood work reveals WBC of 32, hemoglobin 9.6, platelet count 285. BUN 47 creatinine 3.63, potassium 4.3. Blood sugars running between 85 and 166. Total bilirubin 1.3, AST 98, ALT 517, alkaline phosphatase 391. Liver function tests are improved from yesterday. Chest x-ray today reveals cardiomegaly. Interstitial density slightly increased. Correlate to exclude developing pulmonary vascular congestion. Left base remains under penetrated area and some underlying atelectasis or infiltrate or effusion possible. 04/18: Patient is seen today on the cardiac stepdown unit. Patient is awake and answering questions but speech is slow and slurred. Reviewed plan of care with him and he verbalizes understanding. Patient is afebrile, heart rate 66, blood pressure 123/55, pulse ox 99% on 2 L nasal cannula. Catheter tip culture is showing presumptive MRSA. Repeat blood cultures have been ordered to see if bacteremia is clearing. Patient is currently on vancomycin pharmacy dosing and cefepime. YAYO performed by Dr. Bowie reveals no evidence of infective endocarditis. No evidence of intracardiac valves vegetation or abscess. Aortic sclerosis, trileaflet mildly thickened with trace aortic insufficiency. Thickened anterior posterior mitral leaflets with moderate mitral regurgitation. Moderate tricuspid regurgitation. Moderate pulmonic insufficiency. Mild biatrial enlargement. Intact anterior atrial septum and intact left atrial appendage without thrombus. Low normal LV with EF of 50%. No pericardial e ffusion. 04/19: Patient had worsening of his mental status during the night and remains confused worse than yesterday. Leandra is on hold this morning for temporary line placement for dialysis. Dr. Nguyen is planning on hemodialysis today and tomorrow. Patient is only able to state that he feels miserable and terrible but nothing specific. He has been afebrile, heart rate 74, blood pressure 161 /75, pulse ox 91% on room air. WBC is 28.4, hemoglobin 8.6, platelet count 285. CO2 19, BUN 75 and creatinine 5.85. Blood sugars running between 205 and 235. Vancomycin level XXI.5. Repeat blood cultures obtained on April 18 are also positive. CAT scan of the abdomen and pelvis with contrast revealed moderate anasarca. Small bilateral pleural effusions with adjacent atelectasis superimpo sed infiltrates not excluded. Mild urinary bladder wall thickening, correlate for cystitis. No significant contrast excretion into the renal collection system on the delayed images. No significant intra-abdominal pelvic abnormality. Tetracycline has recommended continuing vancomycin. 04/20: Patient had a temporary dialysis catheter placed in the right groin and underwent hemodialysis treatment yesterday but due to patient's restlessness it was not a good treatment. His mental status however is significantly improved today. We will plan to order Dilaudid 1 mg before dialysis treatment and if necessary Valium 5 mg can be given. Patient's nurses been updated. Dr. Wills is planning to remove dialysis catheter following treatment today. Blood cultures remain positive including those drawn on April 19. Repeat blood cultures ordered for tomorrow. Dr. Presley has been updated. He has been afebrile, heart rate 65, blood pressure 134/72, pulse ox 97% on 2 L nasal cannula. Blood sugars running between 90-162. Vancomycin level XVIII. 04/21: She underwent dialysis yesterday with removal of a half a liter of fluid as was planned. Patient is scheduled for another treatment today. Patient states that she is feeling better. Mental status is improved from 2 days ago. Plan is to remove dialysis catheter after today's treatment. His blood cultures that were obtained yesterday are positive. Patient has been afebrile, heart rate 65, blood pressure 118/66, pulse ox 94% on 2 L nasal cannula. Creatinine 4.19. Blood sugars are running between 99 and 146. Patient did well with Dilaudid given 1 mg prior to dialysis treatment. We will plan to repeat this today. 04/22: Patient had dialysis yesterday and dialysis catheter was subsequently removed. Repeat blood cultures obtained on April 21 are also positive. Patient denies any new complaints today. No chest pain, shortness of breath. Patient continues to have some confusion. Losartan has been discontinued by nephrology. He has been afebrile, heart rate 62, blood pressure 126/81, pulse ox 99% on 3 L nasal cannula. Repeat blood work reveals W BC at 22.5, hemoglobin 7.5, platelet count 215. Electrolytes normal, BUN 37 creatinine 3.9. Blood sugars running between 86 and 157. Total bilirubin 0.7, AST 23, ALT 107, alkaline phosphatase 226. Vancomycin level XIX.2. 04/23: Patient continues to be confused more so than yesterday. That blood sugars have been elevated later in the afternoon and evening and scheduled NovoLog added to his regime. Repeat blood work reveals sodium of 135, potassium 4.9, chloride 101, CO2 24, BUN 51 creatinine 5. Blood sugars are running between 184 and 263. Repeat blood culture has been obtained today and is pending. 04/24: She appears to be mentally more alert today. He is sleeping and awakens easily. He is having difficulty sleeping at nighttime. Melatonin increased to 9 mg at bedtime. Vistaril discontinued. We have ordered a CAT scan of the chest to rule out abscess. CAT scan of the chest revealed small bilateral pleural effusions. Clinical consideration for empyema. Compressive atelectasis versus consolidation from pneumonia in the dependent lung bases. No suspicious abscess. He continues to have positive blood cultures pharmacy is dosing vancomycin at this point. She and is complaining of chest wall pain when he coughs at site of previous catheter. 04/25: Patient had temporary else's catheter placed yesterday afternoon with Dr. Santizo. Patient is undergoing hemodialysis today. He complains of not being able to sleep with no improvement with melatonin. Trazodone 25 mg at bedtime added. Dr. Beverly is planning to do a right-sided diagnostic thoracentesis after dialysis treatment. He is continued on vancomycin. Patient has been afebrile, heart rate 63, blood pressure 147/65, pulse ox 90% on 2 L nasal cannula. Blood sugars are running between 98 and 151. Blood cultures from April 24 are also positive. Vistaril resumed per patient's request for itching while having dialysis treatment. 04/26: Patient underwent right-sided thoracentesis yesterday with 500 ML's of turbid fluid removed. Cultures are in progress. Patient is afebrile. Blood pressure 161/62, pulse ox 97% on 2 L, heart rate 66. Repeat blood work reveals WBC 11.8, hemoglobin 7.2, platelet count 183. Sodium 134, BUN 32 and creatinine 3.79. Blood sugars running between [address] Presley has changed antibiotics to daptomycin. 04/27: Patient is found resting in bed comfortably without any acute distress. Patient has no point or concerns at this time. Patient remains afebrile. Blood pressure 125/66, heart rate 68, respirations 15 and nonlabored shallow, pulse ox 98% on 2 L via nasal cannula. Culture from 04/25 presumptive MRSA. 04/28: Dialysis catheter removed yesterday. Blood cultures remain positive. Awaiting body fluid culture. Patient remains afebrile. The pressure 103/66, heart rate 59, respirations 16, pulse ox a 92% on room air. REVIEW OF SYSTEMS Constitutional: No fever, no chills, no night sweats. No weight change. Reported weakness, reported fatigue reported lethargy. Reported daytime sleepiness. EENT: No headache. No blurred vision or double vision, no loss of vision. No loss of Hearing, no ringing in the ears, no dizziness. No nasal drainage or congestion. No epistaxis. No sore throat. Lungs: No shortness of breath, cough, no sputum production. No wheezing. Cardiovascular: No chest pain, no lower extremity edema. No palpitations. No paroxysmal nocturnal dyspnea. No orthopnea. No lightheadedness or dizziness. No syncopal episodes. Abdominal: No abdominal pain. No nausea, vomiting. No diarrhea. No constipation. No bloody or tarry stools. No loss of appetite. Genitourinary: No dysuria, increased frequency, urgency. No urinary retention. Musculoskeletal: No myalgias. No muscle weakness, no gait dysfunction, no frequent falls. No back pain. No neck pain. Integumentary: No wounds, no lesions. No rash or pruritus. No unusual bruising. No change in hair or nails. Neurologic: No aphasia. No facial droop. Reported confusion. No head injury. No headache. No paralysis. No paresthesia. Psychiatric: No depression. No anxiety. Reports insomnia Endocrine: Noted abnormal blood sugars. PHYSICAL EXAMINATION Gen: This is a 59-year-old male patient seen on the cardiac stepdown unit. He is resting in bed and appears to be in no acute respiratory distress. HEENT: Head is atraumatic, normocephalic. Pupils equal, round. Sclerae is anicteric. NECK: Supple. No JVD. No lymphadenopathy. No thyromegaly. LUNGS: Clear to auscultation. No wheezes or rhonchi. No intercostal retractions. HEART: Regular rate and rhythm. 2/6 systolic murmur. ABDOMEN: Soft. Bowel sounds are present. No masses. No tenderness. EXTREMITIES: No pedal edema. No calf tenderness. Right groin temporary dialysis catheter. NEUROLOGICAL: Patient is oriented to person and place. He is able to converse, answer questions and follow commands. ASSESSMENT AND PLAN 1. Sepsis and MRSA bacteremia secondary to dialysis catheter. Permacath has been removed as of yesterday and culture of tip done. Patient is followed by Dr. Presley and continued on vancomycin. Temporary catheter was removed yesterday, planned for permanent catheter placement once blood cultures are clear. Blood cultures remain positive from 04/21. CAT scan of the chest as above. Noted consideration for empyema. Status post right-sided diagnostic thoracentesis. Antibiotics changed to daptomycin 2. Metabolic encephalopathy secondary to sepsis, uremia, pain medication and benzodiazepines improving. Lorazepam has been discontinued. 3. End-stage renal disease on hemodialysis. Permanent catheter will be placed once bacteremia is cleared. Consult with nephrology and vascular surgery appreciated. Continue PhosLo 1334 mg 3 times daily. 2. Temporary dialysis catheter for hemodialysis today 4. Fall secondary to degenerative disc disease and spinal stenosis. MRI as an outpatient revealed severe spinal stenosis. Patient has outpatient orthopedic evaluation pending. PT and OT following. 5. Acute syncopal episode most likely vasovagal, patient had brief CPR. Cardiology consult appreciated. 6. History of coronary artery disease with previous PTCA to LAD and circumflex. Lexiscan was negative on previous admission. Continue Plavix 75 mg daily, Imdur 30 mg daily, Lopressor 25 mg in the morning and evening. 7. Paroxysmal atrial fibrillation. Continue eliquis 2.5 mg twice daily and metoprolol, amiodarone at 200 mg daily. (Eliquis on hold) 8. Ischemic cardiomyopathy. 9. Diabetes mellitus type 2, insulin requiring, uncontrolled with hyperglycemia. Continue Levemir 20 units daily, add NovoLog scale 3 units with meals and continue NovoLog scale before meals and at bedtime, 10. Diabetic neuropathy. Continue gabapentin 100 mg 3 times daily. 11. Hypertension. Continue hydralazine 25 mg 3 times daily, losartan has been discontinued by nephrology. 12. Anemia of chronic disease. Continue to monitor. 13. GI prophylaxis. Continue Protonix. 14. DVT prophylaxis. Continue eliquis. DISCHARGE PLAN Possibly Wednesday. Impression and plan of care have been directed as dictated by the signing physician. Karina Aponte nurse practitioner acting as scribe for signing physician. Objective - Vital Signs Vital signs: Vital Signs Temp 98 F 04/28/20 07:30 Pulse 59 L 04/28/20 07:30 Resp 17 04/28/20 07:30 BP 103/66 04/28/20 07:30 Pulse Ox 92 L 04/28/20 07:30 Intake & Output 04/27/20 04/28/20 04/28/20 18:59 06:59 18:59 Output Total 0 0 Balance 0 0 Output: Urine 0 0 Other: Voiding Method External Catheter External Catheter External Catheter - Labs CBC & Chem 7: 04/26/20 06:19 04/27/20 07:12 Labs: Abnormal Lab Results - Last 24 Hours (Table) 04/27/20 04/27/20 04/27/20 Range/Units 15:48 16:07 17:33 POC Glucose (mg/dL) 57 L 73 L 130 H (75-99) mg/dL 04/27/20 04/28/20 Range/Units 20:40 06:56 POC Glucose (mg/dL) 198 H 142 H (75-99) mg/dL Microbiology - Last 24 Hours (Table) 04/27/20 12:28 Blood Culture Gram Stain - Preliminary Blood 04/27/20 12:03 Blood Culture Gram Stain - Preliminary Blood 04/27/20 12:03 Blood Culture - Final Blood 04/27/20 12:28 Blood Culture - Final Blood 04/25/20 13:40 Anaerobic Culture - Preliminary Pleural Fluid 04/25/20 06:33 Blood Culture Gram Stain - Final Blood Blood Culture - Final Methicillin resist S. aureus 04/25/20 13:40 Gram Stain - Preliminary Pleural Fluid Body Fluid Culture - Preliminary 04/24/20 08:03 Blood Culture Gram Stain - Final Blood Blood Culture - Final Methicillin resist S. aureus
[2020-04-28 11:35] LABS: Glucose,Whole Blood 154 mg/dL (75-99)
[2020-04-28 16:43] LABS: Glucose,Whole Blood 131 mg/dL (75-99)
[2020-04-28 20:46] LABS: Glucose,Whole Blood 74 mg/dL (75-99)
[2020-04-28] MEDS: traZODone HCL 50 MG TAB PO SCH (21:17)
--- NOTE | 2020-04-28 23:03 | PN ---
PROGRESS NOTE DATE OF SERVICE: 04/28/2020 REASON FOR FOLLOW UP: MRSA bacteremia, Perm-A-Cath infection. INTERVAL HISTORY: The patient is currently afebrile, has been breathing comfortably. Patient denies having any chest pain or shortness of breath. Occasional cough. Some abdominal discomfort. No nausea or vomiting. No diarrhea. PHYSICAL EXAMINATION: Blood pressure 132/66, pulse of 69, temperature 98.1. He is 95% on room air. General description is a middle-aged male lying in bed in no distress. Respiratory system: Unlabored breathing. Clear to auscultation anteriorly. Heart S1, S2. Regular rate and rhythm. Abdomen soft, no tenderness. LAB: No new labs have been obtained today. Blood cultures from yesterday positive. DIAGNOSTIC IMPRESSION AND PLAN: Patient with MRSA bacteremia secondary to Perm-A-Cath infection that has been discontinued with persistent bacteremia. Antibiotic will be adjusted to the daptomycin. The patient did have YAYO that was negative. CT of abdomen and pelvis with contrast did not show any intraabdominal pathology. Abnormality to the lumbar spine. Continue with daptomycin and rifampin will be added. Continue supportive care. MMODL / IJN: [id number] /
[2020-04-29] MEDS: HYDROcodone/APAP 5-325MG 1 EACH TAB PO PRN ×3 (02:41→14:23)
[2020-04-29 07:08] LABS: Glucose,Whole Blood 124 mg/dL (75-99)
[2020-04-29] MEDS: INSULIN ASPART (NovoLOG) 100 UNIT/ML VIAL SQ SCH ×7 (07:24→20:04)
[2020-04-29] MEDS: hydrALAZINE HCL 25 MG TAB PO SCH ×3 (08:09→20:08)
[2020-04-29] MEDS: AMIODARONE 200 MG TAB PO SCH (08:09)
[2020-04-29] MEDS: CLOPIDOGREL 75 MG TAB PO SCH (08:09)
[2020-04-29] MEDS: ISOSORBIDE MONONITRATE ER 30 MG TAB.ER.24H PO SCH (08:09)
[2020-04-29] MEDS: INSULIN DETEMIR (LEVEMIR) 100 UNIT/ML SYR SQ SCH (08:09)
[2020-04-29] MEDS: PANTOPRAZOLE 40 MG TABLET PO SCH (08:10)
[2020-04-29] MEDS: METOPROLOL TARTRATE 25 MG TAB PO SCH ×2 (08:10→20:05)
[2020-04-29] MEDS: GABAPENTIN 100 MG CAP PO SCH ×3 (08:10→20:05)
[2020-04-29] MEDS: allopurinoL 100 MG TAB PO SCH (08:10)
[2020-04-29] MEDS: hydrOXYzine pamoate 25 MG CAP PO PRN ×2 (08:12→17:13)
[2020-04-29 08:55] LABS: Anisocytosis Slight; Basophils # (A) 0.1 k/uL (0-0.2); Basophils % (A) 1 %; Eosinophils # (A) 0.2 k/uL (0-0.7); Eosinophils % (A) 2 %; HCT 27.9 % (39.0-53.0); HGB 8.2 gm/dL (13.0-17.5); Hypochromasia Marked; Lymphocytes # (A) 0.8 k/uL (1.0-4.8); Lymphocytes % (A) 8 %; MCH 27.4 pg (25.0-35.0); MCHC 29.4 g/dL (31.0-37.0); Mean Platelet Volume 7.8; Monocytes # (A) 0.5 k/uL (0-1.0); Monocytes % (A) 5 %; Neutrophils # (A) 8.2 k/uL (1.3-7.7); Neutrophils % (A) 81 %; Platelet Count 287 k/uL (150-450); RBC 3.01 m/uL (4.30-5.90); RDW 17.8 % (11.5-15.5); WBC 10.1 k/uL (3.8-10.6)
[2020-04-29 08:59] LABS: ALT 53 U/L (4-49); AST 34 U/L (17-59); African American GFR (CKD) 14 (>60 ml/min/1.73 sqM); Albumin 2.6 g/dL (3.5-5.0); Albumin/Globulin Ratio 0.8; Alkaline Phosphatase 266 U/L (38-126); Anion Gap 11 mmol/L; Blood Urea Nitrogen 47 mg/dL (9-20); Calcium 8.3 mg/dL (8.4-10.2); Carbon Dioxide 23 mmol/L (22-30); Chloride 97 mmol/L (98-107); Globulin 3.4 g/dL; Glucose 102 mg/dL (74-99); Non-African American GFR(CKD) 12 (>60 ml/min/1.73 sqM); Potassium 5.9 mmol/L (3.5-5.1); Sodium 131 mmol/L (137-145); Total Bilirubin 0.5 mg/dL (0.2-1.3)
[2020-04-29 11:08] LABS: Glucose,Whole Blood 207 mg/dL (75-99)
[2020-04-29] MEDS ORDERED: LIDOCAINE 1% INJ 10MG/ML (20 ML MDV) ONE (11:29)
[2020-04-29] MEDS ORDERED: LIDOCAINE 1% INJ 10MG/ML (20 ML MDV) SQ ONE (12:16)
--- NOTE | 2020-04-29 12:45 | P.PN ---
<Katelyn Welsey - Last Filed: 04/29/20 12:40> Progress Note - Text Progress Note Date: 04/29/20 HISTORY OF PRESENT ILLNESS This is a 59-year-old male patient followed for MRSA bacteremia with source of PermCath infection. Patient had CAT scan of the chest which revealed consideration for empyema status post right-sided diagnostic thoracentesis. Cytology is pending. Patient is currently on daptomycin for persistent MRSA bacteremia. Patient is complaining of feeling rough and kidney pain. He states he has a little chest pain. No cough. He has been afebrile, heart rate 66, blood pressure 147/72, pulse ox 94% on 2 L nasal cannula. WBC 10.1, hemoglobin 8.2, creatinine 3.9. Alkaline phosphatase 266. Blood culture from April 28 is showing no growth after 24 hours. Repeat blood culture was obtained this morning PHYSICAL EXAMINATION Gen: This is a 59-year-old male patient, resting in bed and appears to be comfortable. No acute distress. HEENT: Head is atraumatic, normocephalic. Pupils equal, round. Sclerae is anicteric. NECK: Supple. No JVD. No lymphadenopathy. LUNGS: Clear to auscultation. No wheezes or rhonchi. No intercostal retractions. HEART: Regular rate and rhythm. ABDOMEN: Soft. Bowel sounds are present. No masses. No tenderness. ASSESSMENT Persistent MRSA bacteremia, source is permacath which has been discontinued End-stage renal disease on hemodialysis PLAN Continue vancomycin, pharmacy dosing Repeat blood cultures in progress Hold rifampin as there is interaction with amiodarone Further recommendations based upon patient's clinical course The above dictated assessment and findings were discussed with Dr. Presley. The impression and plan of care have been directed as dictated. Katelyn Wesley nurse practitioner acting as scribe for Dr. Presley. <Tio Presley - Last Filed: 04/29/20 22:03> Progress Note - Text Daptomycin 500mg q48hr , pt not on vancomycin
--- NOTE | 2020-04-29 13:56 | P.PN ---
Subjective Progress Note Date: 04/29/20 59 years old male patient of Dr. Mckeon with past medical history of end-stage renal disease on hemodialysis Wednesday and Wednesday, coronary artery disease post angioplasty, and stent placement last catheterization was February 09 with stent of the left circumflex and proximal LAD, atrial fibrillation, diabetes, GERD, hyperlipidemia, hypertension. He does have intermittent lesion along the mid LAD and follows Dr. Hinojosa on as outpatient. Patient was last admitted in February 16 with chest pain and unstable angina, comes in this time with change in mental status, and multiple falls at home. Patient is unable to provide any history due to increased drowsiness. History obtained from the chart. It appears patient had a fall in the bathroom as his leg gave out. He denies any dizziness or syncope episode. CT of the head was obtained that showed no acute lesions. Patient missed 2 dialysis appointment, last hemodialysis was 1 week ago. In the ER patient's blood pressure was 202/94 temp of 99 pulse 91 and respiratory rate 19 on assessment of patient's lab patient had a any, hemoglobin 10.7 hematocrit 32.4 sodium 133 chloride 92 bicarb 21 BUN 86 creatinine 7.56 glucose 237. Urinalysis does suggest leukocytosis with positive blood and positive protein. Urine culture was sent. On evaluation today patient is found to be lying in bed. He is unable to provide any history. Patient did Gabapentin, Dilaudid and 1 L of bolus of IV fluids. We will hold pain medication. Decrease gabapentin 100 3 times a day. Patient will be started on levofloxacin renally adjusted to 250 every 48 hours. Ativan reduced to 0.5 mg 3 times a day. Hold off diuretics. Nephrology consulted At 2:30 this afternoon patient became unresponsive as patient was hooked to the dialysis. The A team responded to the patient did mention patient was pulseless. A brief CPR was done for 2 minutes, with return of spontaneous circulation and return of the pulse with no need of epinephrine. Patient's blood pressure was found to be low. Cardiology consult will be placed. Echo will be ordered. Patient was noted to be in atrial fibrillation and was transferred to the ICU on nonrebreather mask. Another attempt was made to start the hemodialysis while patient was arousable and follows all commands he was found to be more lethargic. Patient's blood pressure dropped on hemodialysis an d became unresponsive not responding to sternal rub. Was noted to be in A. fib with RVR. Patient was placed on BiPAP intubation was not required. 04/12 patient currently in the ICU. Vitals are stable with temp of 98 pulse 67 and respiratory rate 19 and blood pressure 156/71 oxygen saturation 95% on 40% on BiPAP. Patient has leukocytosis of 18 improved from 20 hemoglobin 9.9, sodium 134 chloride 97 bicarb 19 BUN 104 creatinine 8.15 phosphorus 10.7 and total bilirubin 1.7 AST 2932 ALT 2727 alkaline phosphatase 449. Cardiology evaluated the patient thinks patient's episode of unresponsiveness could be vasovagal from low blood pressure. Continue to monitor patient's blood pressure with possible orthostatics when patient is stable. Metoprolol dose increased to 25 twice a day. Initiated on amiodarone 100 mg daily patient is being dialyzed today with minimal ultrafiltration. We will hold hydralazine and Cozaar for systolic less than 125. Patient currently off pressors. Spoke to patient's at bedside who mentioned patient has been falling for the past few months. He had MRI of the lower back done as outpatient that suggested severe spinal stenosis. Patient was set up for PT as outpatient but has been forgetting to often due to weakness in his legs. He has a outpatient appointment pending with an orthopedic surgery 04/13: Patient still in the ICU , on BiPAP, he still have less responsiveness, quite hypertensive today back on vasopressor. Patient was diagnosed tolerate hemodialysis for long had only 1 hour, still currently in significant encephalopathy status, continue IV antibiotic for now there is a small gangrenous spot on the right second toe. 04/14: Patient is off vasopressor, still on BiPAP, still running back and forth between tachycardia and A. fib. No hemodialysis done today. Patient is very confused is taking his lines And all attachment out he required a sitter today. 04/15: Patient is off vasopressor, off BiPAP, he is more awake alert today, he is more hemodynamically stable. He is on hemodialysis and blood pressure is holding well so far should be able to do full cycle of hemodialysis today. Source of infection is still unclear suspect to be dialysis catheter which might be pulled out to place another catheter either in the femoral area or use the fistula graft had in the left forearm. 04/16: Patient evaluated in the ICU. Patient is arousable but easily drifts back to sleep. He had dialysis yesterday, with possible plans for dialysis again today due to elevated BUN/creatinine. Possible source of infection still unclear and suspected to be dialysis catheter. Nephrology plans on repeat blood cultures via dialysis catheter, if positive will discuss discontinuing the IJ permacath. Infectious disease added Cefepime for worsening white count, and continue on Vancomycin. Repeat chest x-ray shows cardiomegaly with left basilar atelectasis. Plans to transfer of the ICU today to select care unit. 04/17: Patient's right IJ permacath dialysis catheter was removed yesterday. Patient's nurse reports that there was pus on the end and this has been cultured. Patient remains in the intensive care unit but has been downgraded to cardiac stepdown unit. Patient has been afebrile, heart rate 57, blood pressure 109/59, pulse ox 100% on 2 L nasal cannula. 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 He does have short bouts of atrial fibrillation most often noted when he drinks cold liquids. Repeat blood work reveals WBC of 32, hemoglobin 9.6, platelet count 285. BUN 47 creatinine 3.63, potassium 4.3. Blood sugars running between 85 and 166. Total bilirubin 1.3, AST 98, ALT 517, alkaline phosphatase 391. Liver function tests are improved from yesterday. Chest x-ray today reveals cardiomegaly. Interstitial density slightly increased. Correlate to exclude developing pulmonary vascular congestion. Left base remains under penetrated area and some underlying atelectasis or infiltrate or effusion possible. 04/18: Patient is seen today on the cardiac stepdown unit. Patient is awake and answering questions but speech is slow and slurred. Reviewed plan of care with him and he verbalizes understanding. Patient is afebrile, heart rate 66, blood pressure 123/55, pulse ox 99% on 2 L nasal cannula. Catheter tip culture is showing presumptive MRSA. Repeat blood cultures have been ordered to see if bacteremia is clearing. Patient is currently on vancomycin pharmacy dosing and cefepime. YAYO performed by Dr. Bowie reveals no evidence of infective endocarditis. No evidence of intracardiac valves vegetation or abscess. Aortic sclerosis, trileaflet mildly thickened with trace aortic insufficiency. Thickened anterior posterior mitral leaflets with moderate mitral regurgitation. Moderate tricuspid regurgitation. Moderate pulmonic insufficiency. Mild biatrial enlargement. Intact anterior atrial septum and intact left atrial appendage without thrombus. Low normal LV with EF of 50%. No pericardial e ffusion. 04/19: Patient had worsening of his mental status during the night and remains confused worse than yesterday. Leandra is on hold this morning for temporary line placement for dialysis. Dr. Nguyen is planning on hemodialysis today and tomorrow. Patient is only able to state that he feels miserable and terrible but nothing specific. He has been afebrile, heart rate 74, blood pressure 161 /75, pulse ox 91% on room air. WBC is 28.4, hemoglobin 8.6, platelet count 285. CO2 19, BUN 75 and creatinine 5.85. Blood sugars running between 205 and 235. Vancomycin level XXI.5. Repeat blood cultures obtained on April 18 are also positive. CAT scan of the abdomen and pelvis with contrast revealed moderate anasarca. Small bilateral pleural effusions with adjacent atelectasis superimpo sed infiltrates not excluded. Mild urinary bladder wall thickening, correlate for cystitis. No significant contrast excretion into the renal collection system on the delayed images. No significant intra-abdominal pelvic abnormality. Tetracycline has recommended continuing vancomycin. 04/20: Patient had a temporary dialysis catheter placed in the right groin and underwent hemodialysis treatment yesterday but due to patient's restlessness it was not a good treatment. His mental status however is significantly improved today. We will plan to order Dilaudid 1 mg before dialysis treatment and if necessary Valium 5 mg can be given. Patient's nurses been updated. Dr. Wills is planning to remove dialysis catheter following treatment today. Blood cultures remain positive including those drawn on April 19. Repeat blood cultures ordered for tomorrow. Dr. Presley has been updated. He has been afebrile, heart rate 65, blood pressure 134/72, pulse ox 97% on 2 L nasal cannula. Blood sugars running between 90-162. Vancomycin level XVIII. 04/21: She underwent dialysis yesterday with removal of a half a liter of fluid as was planned. Patient is scheduled for another treatment today. Patient states that she is feeling better. Mental status is improved from 2 days ago. Plan is to remove dialysis catheter after today's treatment. His blood cultures that were obtained yesterday are positive. Patient has been afebrile, heart rate 65, blood pressure 118/66, pulse ox 94% on 2 L nasal cannula. Creatinine 4.19. Blood sugars are running between 99 and 146. Patient did well with Dilaudid given 1 mg prior to dialysis treatment. We will plan to repeat this today. 04/22: Patient had dialysis yesterday and dialysis catheter was subsequently removed. Repeat blood cultures obtained on April 21 are also positive. Patient denies any new complaints today. No chest pain, shortness of breath. Patient continues to have some confusion. Losartan has been discontinued by nephrology. He has been afebrile, heart rate 62, blood pressure 126/81, pulse ox 99% on 3 L nasal cannula. Repeat blood work reveals W BC at 22.5, hemoglobin 7.5, platelet count 215. Electrolytes normal, BUN 37 creatinine 3.9. Blood sugars running between 86 and 157. Total bilirubin 0.7, AST 23, ALT 107, alkaline phosphatase 226. Vancomycin level XIX.2. 04/23: Patient continues to be confused more so than yesterday. That blood sugars have been elevated later in the afternoon and evening and scheduled NovoLog added to his regime. Repeat blood work reveals sodium of 135, potassium 4.9, chloride 101, CO2 24, BUN 51 creatinine 5. Blood sugars are running between 184 and 263. Repeat blood culture has been obtained today and is pending. 04/24: She appears to be mentally more alert today. He is sleeping and awakens easily. He is having difficulty sleeping at nighttime. Melatonin increased to 9 mg at bedtime. Vistaril discontinued. We have ordered a CAT scan of the chest to rule out abscess. CAT scan of the chest revealed small bilateral pleural effusions. Clinical consideration for empyema. Compressive atelectasis versus consolidation from pneumonia in the dependent lung bases. No suspicious abscess. He continues to have positive blood cultures pharmacy is dosing vancomycin at this point. She and is complaining of chest wall pain when he coughs at site of previous catheter. 04/25: Patient had temporary else's catheter placed yesterday afternoon with Dr. Santizo. Patient is undergoing hemodialysis today. He complains of not being able to sleep with no improvement with melatonin. Trazodone 25 mg at bedtime added. Dr. Beverly is planning to do a right-sided diagnostic thoracentesis after dialysis treatment. He is continued on vancomycin. Patient has been afebrile, heart rate 63, blood pressure 147/65, pulse ox 90% on 2 L nasal cannula. Blood sugars are running between 98 and 151. Blood cultures from April 24 are also positive. Vistaril resumed per patient's request for itching while having dialysis treatment. 04/26: Patient underwent right-sided thoracentesis yesterday with 500 ML's of turbid fluid removed. Cultures are in progress. Patient is afebrile. Blood pressure 161/62, pulse ox 97% on 2 L, heart rate 66. Repeat blood work reveals WBC 11.8, hemoglobin 7.2, platelet count 183. Sodium 134, BUN 32 and creatinine 3.79. Blood sugars running between [address] Presley has changed antibiotics to daptomycin. 04/27: Patient is found resting in bed comfortably without any acute distress. Patient has no point or concerns at this time. Patient remains afebrile. Blood pressure 125/66, heart rate 68, respirations 15 and nonlabored shallow, pulse ox 98% on 2 L via nasal cannula. Culture from 04/25 presumptive MRSA. 04/28: Dialysis catheter removed yesterday. Blood cultures remain positive. Awaiting body fluid culture. Patient remains afebrile. The pressure 103/66, heart rate 59, respirations 16, pulse ox a 92% on room air. 04/29: Patient denies any new complaints today. He does complain of kidney pain. He has been afebrile, heart rate 66, blood pressure 147/72, pulse ox 94% on 2 L nasal cannula. WBC 10.1, hemoglobin 8.2, creatinine 3.9. Alkaline phosphatase 266. Blood culture from April 28 is showing no growth after 24 hours. Repeat blood culture was obtained this morning. He is scheduled today for a temporary dialysis catheter. REVIEW OF SYSTEMS Constitutional: No fever, no chills, no night sweats. No weight change. Reported weakness, reported fatigue reported lethargy. Reported daytime sleepiness. EENT: No headache. No blurred vision or double vision, no loss of vision. No loss of Hearing, no ringing in the ears, no dizziness. No nasal drainage or congestion. No epistaxis. No sore throat. Lungs: No shortness of breath, cough, no sputum production. No wheezing. Cardiovascular: No chest pain, no lower extremity edema. No palpitations. No paroxysmal nocturnal dyspnea. No orthopnea. No lightheadedness or dizziness. No syncopal episodes. Abdominal: No abdominal pain. No nausea, vomiting. No diarrhea. No constipation. No bloody or tarry stools. No loss of appetite. Genitourinary: No dysuria, increased frequency, urgency. No urinary retention. Musculoskeletal: No myalgias. No muscle weakness, no gait dysfunction, no frequent falls. No back pain. No neck pain. Integumentary: No wounds, no lesions. No rash or pruritus. No unusual bruising. No change in hair or nails. Neurologic: No aphasia. No facial droop. Reported confusion. No head injury. No headache. No paralysis. No paresthesia. Psychiatric: No depression. No anxiety. Reports insomnia Endocrine: Noted abnormal blood sugars. PHYSICAL EXAMINATION Gen: This is a 59-year-old male patient seen on the cardiac stepdown unit. He is resting in bed and appears to be in no acute respiratory distress. HEENT: Head is atraumatic, normocephalic. Pupils equal, round. Sclerae is anicteric. NECK: Supple. No JVD. No lymphadenopathy. No thyromegaly. LUNGS: Clear to auscultation. No wheezes or rhonchi. No intercostal retractions. HEART: Regular rate and rhythm. 2/6 systolic murmur. ABDOMEN: Soft. Bowel sounds are present. No masses. No tenderness. EXTREMITIES: No pedal edema. No calf tenderness. Right groin temporary dialysis catheter. NEUROLOGICAL: Patient is oriented to person and place. He is able to converse, answer questions and follow commands. ASSESSMENT AND PLAN 1. Sepsis and MRSA bacteremia secondary to dialysis catheter. Permacath has been removed as of yesterday and culture of tip done. Patient is followed by Dr. Presley and continued on vancomycin. Temporary catheter was removed yesterday, planned for permanent catheter placement once blood cultures are clear. Blood cultures remain positive from 04/21. CAT scan of the chest as above. Noted consideration for empyema. Status post right-sided diagnostic tho racentesis. Continue daptomycin 2. Metabolic encephalopathy secondary to sepsis, uremia, pain medication and benzodiazepines improving. Lorazepam has been discontinued. 3. End-stage renal disease on hemodialysis. Permanent catheter will be placed once bacteremia is cleared. Consult with nephrology and vascular surgery appreciated. Continue PhosLo 1334 mg 3 times daily. 2. Temporary dialysis catheter for hemodialysis today. 4. Fall secondary to degenerative disc disease and spinal stenosis. MRI as an outpatient revealed severe spinal stenosis. Patient has outpatient orthopedic evaluation pending. PT and OT following. 5. Acute syncopal episode most likely vasovagal, patient had brief CPR. Cardiology consult appreciated. 6. History of coronary artery disease with previous PTCA to LAD and circumflex. Lexiscan was negative on previous admission. Continue Plavix 75 mg daily, Imdur 30 mg daily, Lopressor 25 mg in the morning and evening. 7. Paroxysmal atrial fibrillation. Continue eliquis 2.5 mg twice daily and metoprolol, amiodarone at 200 mg daily. (Eliquis on hold) 8. Ischemic cardiomyopathy. 9. Diabetes mellitus type 2, insulin requiring, uncontrolled with hyperglycemia. Continue Levemir 20 units daily, add NovoLog scale 3 units with meals and continue NovoLog scale before meals and at bedtime, 10. Diabetic neuropathy. Continue gabapentin 100 mg 3 times daily. 11. Hypertension. Continue hydralazine 25 mg 3 times daily, losartan has been discontinued by nephrology. 12. Anemia of chronic disease. Continue to monitor. 13. GI prophylaxis. Continue Protonix. 14. DVT prophylaxis. Continue eliquis. DISCHARGE PLAN [facility] at end of week Impression and plan of care have been directed as dictated by the signing physician. Katelyn Wesley nurse practitioner acting as scribe for signing physician. Objective - Vital Signs Vital signs: Vital Signs Temp 98.5 F 04/29/20 08:00 Pulse 66 04/29/20 08:00 Resp 18 04/29/20 08:00 BP 147/72 04/29/20 08:00 Pulse Ox 94 L 04/29/20 08:00 Intake & Output 04/28/20 04/29/20 04/29/20 18:59 06:59 18:59 Intake Total 300 Output Total 250 Balance 50 Intake: Oral 300 Output: Urine 250 Other: Voiding Method External Catheter External Catheter # Voids 0 - Labs CBC & Chem 7: 04/29/20 06:17 04/29/20 06:17 Labs: Abnormal Lab Results - Last 24 Hours (Table) 04/28/20 04/28/20 04/28/20 Range/Units 11:30 16:41 20:44 RBC (4.30-5.90) m/uL Hgb (13.0-17.5) gm/dL Hct (39.0-53.0) % MCHC (31.0-37.0) g/dL RDW (11.5-15.5) % Sodium (137-145) mmol/L Potassium (3.5-5.1) mmol/L Chloride (98-107) mmol/L BUN (9-20) mg/dL Creatinine (0.66-1.25) mg/dL Glucose (74-99) mg/dL POC Glucose (mg/dL) 154 H 131 H 74 L (75-99) mg/dL Calcium (8.4-10.2) mg/dL ALT (4-49) U/L Alkaline Phosphatase (38-126) U/L Total Protein (6.3-8.2) g/dL Albumin (3.5-5.0) g/dL 04/29/20 04/29/20 04/29/20 Range/Units 06:17 06:17 07:07 RBC 3.01 L (4.30-5.90) m/uL Hgb 8.2 L (13.0-17.5) gm/dL Hct 27.9 L (39.0-53.0) % MCHC 29.4 L (31.0-37.0) g/dL RDW 17.8 H (11.5-15.5) % Sodium 131 L (137-145) mmol/L Potassium 5.9 H (3.5-5.1) mmol/L Chloride 97 L (98-107) mmol/L BUN 47 H (9-20) mg/dL Creatinine 4.90 H (0.66-1.25) mg/dL Glucose 102 H (74-99) mg/dL POC Glucose (mg/dL) 124 H (75-99) mg/dL Calcium 8.3 L (8.4-10.2) mg/dL ALT 53 H (4-49) U/L Alkaline Phosphatase 266 H (38-126) U/L Total Protein 6.0 L (6.3-8.2) g/dL Albumin 2.6 L (3.5-5.0) g/dL Microbiology - Last 24 Hours (Table) 04/25/20 06:33 Blood Culture Gram Stain - Final Blood Blood Culture - Final Methicillin resist S. aureus 04/27/20 12:03 Blood Culture Gram Stain - Preliminary Blood Blood Culture - Preliminary Presumptive MRSA 04/25/20 13:40 Gram Stain - Preliminary Pleural Fluid Body Fluid Culture - Preliminary 04/27/20 12:28 Blood Culture Gram Stain - Preliminary Blood 04/27/20 12:03 Blood Culture - Final Blood 04/27/20 12:28 Blood Culture - Final Blood
--- NOTE | 2020-04-29 14:03 | P.PN ---
Subjective Progress Note Date: 04/29/20 Principal diagnosis: MRSA bacteremia, acute exacerbation of diastolic CHF, cardiac arrest This is a 59-year-old white male admitted on 04/11/2020, admitted mostly with a diagnosis of sepsis and urinary tract infection, patient is known to have history of multiple medical problems, and has been falling recently quite frequently, is also known to have history of end-stage renal disease, on hemodialysis for the last 3 years, and he has a dialysis catheter in his right subclavian placed apparently a few weeks ago. He did have previous history of left AV fistula which has been nonfunctional recently and that is why he had a subclavian dialysis catheter. Patient is primarily a patient with Dr. Mckeon, he receives dialysis is normally on Wednesday and Wednesday, he had previous history of coronary artery disease and previous angioplasty, stent placement. His other medical problems include chronic atrial fibrillation diabetes dyslipidemia hypertension, and diabetic neuropathy. This time the patient was admitted mostly with mental status change, multiple falls at home, apparently had a recent fall in the bathroom and had trauma CT of the head was unremarkable on admission. Patient missed 2 dialysis appointments and in the ER his blood pressure was significantly elevated at 202/94. He had a low-grade fever, he had a relatively normal electrolytes, blood sugar was 237, and his urinalysis showed pyuria and bacteriuria. Hence patient was admitted mostly with the impression of UTI and sepsis. At 2:30 this afternoon, patient was receiving dialysis, as soon as dialysis was started, patient had a sudden episode of unresponsiveness, he was pulseless according to the team responded to him. Patient had less than 2 minutes of CPR, that there was return of spontaneous circulation, and return of pulse. No monitor was noted at the time, but by the time he woke up, patient was in atrial fibrillation with fairly controlled rhythm. Patient was transferred to the ICU, placed on a nonrebreather mask hemodynamically stable, I was asked to see him on consu ltation since he was transferred to the intensive care unit. Seen in the ICU, patient is on a nonrebreather mask, which I will transition to a high flow nasal cannula, patient is hemodynamically stable, he was in normal sinus rhythm, and he is a bit lethargic, but arousable, and follows all instruct ions. Labs from today were all reviewed. Again noted to have leukocytosis with WBC count 20.2, hemoglobin is 9.9. Troponin is 0.118, and his urine did show evidence of bacteriuria and pyuria. Reevaluated today on 04/12/2019, patient remains in the ICU, he had another episode of near syncope yesterday, patient was noted to become hypotensive upon connection to the dialysis machine. Patient had to be Ambu bag, did not require CPR this time, he had a pulse, but he was hypotensive. I saw the patient shortly after that episode, and his blood pressure was marginal. Recommended starting the patient on norepinephrine and recommended that we proceed with his hemodialysis. Patient did well overnight, did not have any further episodes, tolerated the hemodialysis well yesterday. Presently asymptomatic, patient has paroxysmal atrial fibrillation, but presently in sinus rhythm. On BiPAP which I will discontinue and place on a nasal cannula, and it will be titrated accordingly. Patient is definitely more awake today, alert and oriented 3. However his blood cultures are positive for gram-positive cocci, final identification is not available, and his urine from 04/11 was positive for pr esumptive staph aureus. Hence we will recommend empirically starting the patient on vancomycin, and we will initiate infectious disease consultation on this patient. Obviously the patient may have a positive urinary tract infection with gram-positive bacteremia. During my evaluation of this patient, he was undergoing dialysis, and he seems to be tolerating that quite well. His WBC count is 18.4 hemoglobin is 9.9. Electrolytes are normal bicarb is 19 BUN is 104 creatinine 8.15. Liver enzymes were noted to be elevated, his AST is 2932 and his ALT is 2723 with alkaline phosphatase of 449 could be related to hypoperfusion at the time when the patient had episodes of low blood pressure and at one point he had no pulse according to the team responded to his code. Chest x-ray showed evidence of mild interstitial edema, suspect diastolic congestive heart failure or pulmonary edema secondary to his underlying chronic renal disease Reevaluated today on 04/13/2020, patient remains in the ICU, presently undergoing hemodialysis. Patient remains hemodynamically stable, off BiPAP, seems to have intermittent atrial fibrillation that seems to improve once he goes on BiPAP. ABG did not reflect hypercapnia at any point. Patient is on oral anticoagulation therapy, he is not requiring norepinephrine anymore. Denies any chest pain or discomfort, no episodes of asystole over the last 24 hours, and no episodes of syncope or near syncope. Patient is intermittently confused and requires sedation and soft restraints blood cultures are now positive for MRSA and the patient is now on vancomycin and Levaquin. Potential sources for his MRSA bacteremia could be that his dialysis catheter or right second toe which shows some area of necrosis. Infectious disease has been consulted. For his agitation patient is requiring Ativan every 4 hours. As needed. Pulmonary-webb remains on 2 L nasal cannula or at times on BiPAP at 50% FiO2 with IPAP of 12 and EPAP of 5. On 04/14/2020 the patient is being seen in follow-up in the intensive care unit. The patient this morning is on a BiPAP at a pressure of 12/6 cm of water and FiO2 of 40%. The patient was in pulmonary edema at a time of his admission. He required dialysis since he has been an and that is an improvement in his overall volume status. The patient had no chest x-ray today. The chest x-ray from yesterday showedNo acute abnormalities. There may be some small left-sided pleural effusion. He has a permacath in his right. His last session of hemodialysis was yesterday. Dialysis session to be cut short because of low blood pressure and a chest fibrillation with rapid ventricular response. This morning, his blood pressure is stable on no pressors. He is in in sinus rhythm. He was on norepinephrine infusion yesterday for blood pressure support and this has been also discontinued. The most recent blood cultures negative and the patient remains on vancomycin. He was having possible causes earlier in the most recent possible cultures from the 2020. Neurologically, he is impaired and at times agitated requiring Ativan and the CAT scan of the brain and the cervical spine that was done, admission was was within normal limits. His echocardiogram showed an ejection fraction of 55-60%, mild aortic sclerosis, no pericardial effusion, not abnormalities otherwise. On 04/15/2020 patient seen in follow-up in intensive care unit, he is lethargic, arousable, however drifts back to sleep if left unstimulated, no signs of any respiratory distress, breathing comfortably, he is currently on 2 L of oxygen with pulse ox of 98%, afebrile, hemodynamically stable, he is on 0.9 normal saline at a rate of 10 ML per hour, he has been alternating between nasal cannula and BiPAP support with pressure of 12/6 and FiO2 of 50%. His last chest x-ray from 04/13/2020 showed cardiomegaly no obvious heart failure. Mild new infiltrate in the left lower lobe. He is on Levaquin and vancomycin for MRSA bacteremia, yesterday's blood cultures showed gram-positive cocci in clusters on the preliminary report. White count continues to be significantly elevated at 32.3, hemoglobin is 10.2, BUN is 86, creatinine is 6.2, electrolytes are relat ively unremarkable. Patient's last hemodialysis session was on 04/14/2020 with removal of 800 mL of fluid. Blood pressure has been stable, patient is not requiring any vasopressor support. Patient is on Eliquis for anticoagulation for recent history of A. fib with RVR, he is currently in sinus rhythm with controlled rate. Cardiology is following On 04/16/2020 patient seen in follow-up in intensive care unit, he is slightly more arousable on today's exam, he is given some simple answers, he is oriented to person and place, disoriented to time. Drifts back to sleep if left unstimulated. Appears to be in no acute distress although he does admit to being short of breath at times. Seems to be breathing comfortably currently, he is on 2 L of oxygen with pulse ox of 99%, he had hemodialysis yesterday would removal of 1 L of fluid. His been afebrile. His follow-up blood cultures from 04/15/2020 continue to show gram-positive cocci in groups. Patient continues on vancomycin and cefepime for antibiotic coverage, ID service is following, patient has been having intermittent runs of A. fib with RVR, and spontaneously converts back to sinus. He is in sinus mechanism right now. Cardiology is following, patient is off the Cardizem infusion, he is on oral amiodarone, and he is on Eliquis for anticoagulation. On 04/17/2000 patient seen in follow-up in the intensive care unit, he is currently on 3 L of oxygen, did not require BiPAP support, pulse ox is 100% on 3 L, he is breathing comfortably, he is lethargic, but arousable, he wakes up and answers simple questions, denies any chest discomfort, is currently in sinus mechanism on the monitor, his had intermittent self-limiting bouts of atrial fibrillation, he is on oral amiodarone and Eliquis for anticoagulation. Remains on cefepime and vancomycin, and his follow-up blood cultures from 04/15/2020 are again positive for presumptive MRSA. ID service is following, the source of bacteremia is likely related to hemodialysis catheter in the right subclavian area, fasting surgery has been consulted for removal of the hemodialysis catheter today and insertion of a new hemodialysis catheter in the next 48 hours. Patient has been afebrile, patient had hemodialysis yesterday would removal of 700 mL of fluid. After hemodialysis he did have some lower blood pressures with systolic in the 80s, and in view of relative hypotension his transfer out of ICU was held. On 2020 patient seen in follow-up on selective care unit, his last hemodialysis session was yesterday would removal of 700 mL of fluid. No signs of any acute respiratory distress, patient is on 2 L of oxygen pulse ox is 97%, his been afebrile, vital signs have been stable. His right subclavian permacath has been discontinued, today's labs have been reviewed, no CBC, BMP showed creatinine 5.19, BUN is 70, potassium is 4.1. His liver enzymes were improving on yesterday's labs. He has been afebrile. His last follow-up blood culture from 04/17/2020 showed presumptive MRSA. he continues on cefepime and vancomycin, ID service is following. On 04/29/2020 patient is having hemodialysis catheter inserted. He is on 2 L of oxygen pulse ox is 98%, he has been afebrile since 04/22/2020, remains persistently bacteremic, his last positive blood culture was on or 04/27/2020 showing gram-positive cocci, follow blood cultures from 04/28/2020 so far have shown no growth, he remains on daptomycin, ID service is following, tagged WBC scan showed no evidence of abscess, his right-sided thoracentesis on 04/25/2020 showed transudative fluid, with negative cultures. Patient is on 2 L of oxygen pulse ox is 98%, he denies any cough, denies any phlegm production. His last chest x-ray was on 04/25/2020 showing improvement right-sided pleural effusion after thoracentesis, with no evidence of pneumothorax and residual small left pleural effusion, patient's last session of hemodialysis was on 04/24/2020 would removal of 1.3 L of fluid Objective - Vital Signs Vital signs: Vital Signs Temp 98.2 F 04/29/20 12:59 Pulse 65 04/29/20 12:59 Resp 19 04/29/20 12:59 BP 167/69 04/29/20 12:59 Pulse Ox 98 04/29/20 12:59 Intake & Output 04/28/20 04/29/20 04/29/20 18:59 06:59 18:59 Intake Total 300 Output Total 250 Balance 50 Intake: Oral 300 Output: Urine 250 Other: Voiding Method External Catheter External Catheter # Voids 0 - Exam GENERAL EXAM: Sleepy, but arousable to voice, 59-year-old on 2 l/min of oxygen a pulse ox of 98%, comfortable in no apparent distress. HEAD: Normocephalic/atraumatic. EYES: Normal reaction of pupils, equal size. Conjunctiva pink, sclera white. NOSE: Clear with pink turbinates. THROAT: No erythema or exudates. NECK: No masses, no JVD, no thyroid enlargement, no adenopathy. CHEST: No chest wall deformity. Symmetrical expansion. LUNGS: Equal air entry with no crackles, wheeze, rhonchi or dullness. CVS: Regular rate and rhythm, normal S1 and S2, no gallops, soft systolic murmur, loudest at the left midclavicular line fourth to fifth intercostal space, no rubs ABDOMEN: Soft, nontender. No hepatosplenomegaly, normal bowel sounds, no guarding or rigidity. EXTREMITIES: No clubbing, no edema, no cyanosis, 2+ pulses and upper and lower extremities. Left upper arm AV shunt in place, with positive bruit and thrill MUSCULOSKELETAL: Muscle strength and tone normal. SPINE: No scoliosis or deformity SKIN: No rashes. CENTRAL NERVOUS SYSTEM: he is encephalopathic. No focal deficits, tone is normal in all 4 extremities. - Labs CBC & Chem 7: 04/29/20 06:17 04/29/20 06:17 Labs: Abnormal Lab Results - Last 24 Hours (Table) 04/28/20 04/28/20 04/29/20 Range/Units 16:41 20:44 06:17 RBC 3.01 L (4.30-5.90) m/uL Hgb 8.2 L (13.0-17.5) gm/dL Hct 27.9 L (39.0-53.0) % MCHC 29.4 L (31.0-37.0) g/dL RDW 17.8 H (11.5-15.5) % Neutrophils # 8.2 H (1.3-7.7) k/uL Lymphocytes # 0.8 L (1.0-4.8) k/uL Sodium (137-145) mmol/L Potassium (3.5-5.1) mmol/L Chloride (98-107) mmol/L BUN (9-20) mg/dL Creatinine (0.66-1.25) mg/dL Glucose (74-99) mg/dL POC Glucose (mg/dL) 131 H 74 L (75-99) mg/dL Calcium (8.4-10.2) mg/dL ALT (4-49) U/L Alkaline Phosphatase (38-126) U/L Total Protein (6.3-8.2) g/dL Albumin (3.5-5.0) g/dL 04/29/20 04/29/20 04/29/20 Range/Units 06:17 07:07 11:07 RBC (4.30-5.90) m/uL Hgb (13.0-17.5) gm/dL Hct (39.0-53.0) % MCHC (31.0-37.0) g/dL RDW (11.5-15.5) % Neutrophils # (1.3-7.7) k/uL Lymphocytes # (1.0-4.8) k/uL Sodium 131 L (137-145) mmol/L Potassium 5.9 H (3.5-5.1) mmol/L Chloride 97 L (98-107) mmol/L BUN 47 H (9-20) mg/dL Creatinine 4.90 H (0.66-1.25) mg/dL Glucose 102 H (74-99) mg/dL POC Glucose (mg/dL) 124 H 207 H (75-99) mg/dL Calcium 8.3 L (8.4-10.2) mg/dL ALT 53 H (4-49) U/L Alkaline Phosphatase 266 H (38-126) U/L Total Protein 6.0 L (6.3-8.2) g/dL Albumin 2.6 L (3.5-5.0) g/dL Microbiology - Last 24 Hours (Table) 04/28/20 07:29 Blood Culture - Preliminary Blood No Growth after 24 hours 04/25/20 06:33 Blood Culture Gram Stain - Final Blood Blood Culture - Final Methicillin resist S. aureus 04/27/20 12:03 Blood Culture Gram Stain - Preliminary Blood Blood Culture - Preliminary Presumptive MRSA 04/25/20 13:40 Gram Stain - Preliminary Pleural Fluid Body Fluid Culture - Preliminary 04/27/20 12:28 Blood Culture Gram Stain - Preliminary Blood 04/27/20 12:03 Blood Culture - Final Blood 04/27/20 12:28 Blood Culture - Final Blood Assessment and Plan Plan: 1 Acute hypoxic respiratory failure secondary to MRSA sepsis and a component of a possible acute diastolic congestive heart failure/ fluid overload 2 MRSA bacteremia and sepsis, source is not clear. Currently on daptomycin, WBC tagged scan showed no focal abscess, right-sided thoracentesis revealed transudative fluid with negative cultures 3 Cardiac arrest, possible asystole or possible pulseless electrical activity, brief, responded to 2 minutes of CPR. 4 Chronic end-stage renal disease on hemodialysis, noncompliant and has been skipping dialysis. 5 Recurrent falls, could be related to his diabetic neuropathy/peripheral diabetic neuropathy or could be cardiac in nature with cardiac arrhythmia, needs to be further investigated. 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 8 Chronic anemia secondary to chronic renal disease. 9 Suspect some component of obstructive sleep apnea syndrome. 10 Morbid obesity. 11 Right second toe cellulitis with necrosis of the dorsal tip 12 Abnormal liver enzymes, possible shock liver. Related to his cardiac arrest. 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 Follow-up chest x-ray tomorrow I performed a history & physical examination of the patient and discussed their management with my nurse practitioner, Tamiko Garcia. I reviewed the nurse practitioner's note and agree with the documented findings and plan of care. Lung sounds are positive for bibasilar crackles. The findings and the impression was discussed with the patient. I attest to the documentation by the nurse practitioner. Time with Patient: Less than 30
[2020-04-29 16:15] LABS: Glucose,Whole Blood 234 mg/dL (75-99)
--- NOTE | 2020-04-29 18:25 | PN ---
PROGRESS NOTE Patient is seen for followup for end-stage renal disease. The patient is being dialyzed intermittently since his blood cultures remain positive. Last dialysis was on 04/26/2020. Today, the potassium is elevated at 5.9, BUN of 47, serum creatinine 4.9. Overall patient feels fairly well. He is complaining of back pain. Otherwise, no complaints of chest pains or shortness of breath. PHYSICAL EXAMINATION: On examination today, blood pressure was 167/69, heart rate 65 per minute, he is afebrile. Examination of the heart S1, S2. Examination of the lungs, bilateral breath sounds are heard. Abdomen is soft, nontender. Examination of lower extremities shows no significant edema. HOUSE VISITOR exam grossly intact. LABS: Show sodium 131, potassium 5.9, chloride 97, BUN 47, creatinine 4.9 mg/dL. ASSESSMENT: 1. End-stage renal disease, on hemodialysis, currently being dialyzed intermittently based on labs through temporary femoral catheter, which has been discontinued. Last dialysis on 04/26/2020. We will dialyze the patient again today. 2. Hyperkalemia. Expect improvement with dialysis. 3. MRSA bacteremia. Blood cultures from April 28 are currently negative. However 04/27/2020 was still positive. 4. Anemia of chronic disease. PLAN: Hemodialysis today and in a.m. We will have vascular place a temporary dialysis catheter again. MMODL / IJN: [id number] /
--- NOTE | 2020-04-29 19:24 | PCN ---
PROCEDURE NOTE PREOP DIAGNOSIS: Acute on chronic renal failure. PROCEDURE PERFORMED: Ultrasound-guided 30 cm dialysis catheter right femoral approach. DESCRIPTION OF PROCEDURE: Patient was brought to the mineral ore processing labourer. Right groin was prepped and drapes applied in the usual sterile manner. 1% lidocaine plain infiltrated. Ultrasound-guided micropuncture introducer right femoral vein. Micropuncture guidewire was passed. After that, 4- Finnish dilator was advanced on the top of the guidewire. After that, we passed a regular guidewire under fluoroscopy control. The dilator was advanced and 30 cm dialysis catheter advanced on the top of the guidewire, flushed with heparin saline and hep-locked, secured with 3-0 nylon. Dressing applied. Patient tolerated the procedure well. MMODL / IJN: [id number] /
[2020-04-29] MEDS: traZODone HCL 50 MG TAB PO SCH (20:04)
[2020-04-29 20:05] LABS: Glucose,Whole Blood 137 mg/dL (75-99)
[2020-04-29] MEDS: DAPTOmycin 500 MG in SODIUM CHLORIDE 0.9% 50 ML IVPB SCH (22:53)
[2020-04-30 07:37] LABS: Glucose,Whole Blood 167 mg/dL (75-99)
[2020-04-30] MEDS: METOPROLOL TARTRATE 25 MG TAB PO SCH ×2 (07:41→20:48)
[2020-04-30] MEDS: AMIODARONE 200 MG TAB PO SCH (07:41)
[2020-04-30] MEDS: ISOSORBIDE MONONITRATE ER 30 MG TAB.ER.24H PO SCH (07:41)
[2020-04-30] MEDS: PANTOPRAZOLE 40 MG TABLET PO SCH (07:42)
[2020-04-30] MEDS: allopurinoL 100 MG TAB PO SCH (07:42)
[2020-04-30] MEDS: GABAPENTIN 100 MG CAP PO SCH ×3 (07:42→20:48)
[2020-04-30] MEDS: INSULIN DETEMIR (LEVEMIR) 100 UNIT/ML SYR SQ SCH (07:42)
[2020-04-30] MEDS: INSULIN ASPART (NovoLOG) 100 UNIT/ML VIAL SQ SCH ×6 (07:42→16:11)
[2020-04-30] MEDS: hydrALAZINE HCL 25 MG TAB PO SCH ×2 (07:42→16:11)
[2020-04-30] MEDS: CLOPIDOGREL 75 MG TAB PO SCH (07:42)
--- NOTE | 2020-04-30 07:46 | XR ---
EXAMINATION TYPE: XR chest 1V portable DATE OF EXAM: 04/30/2020 CLINICAL HISTORY: Difficulty breathing progress study. TECHNIQUE: Single AP portable upright view of the chest is obtained. COMPARISON: Chest x-ray from [address] chest 6 days earlier. FINDINGS: Persistent low lung volumes along with cardiomegaly and left basilar opacity. Faint reticu lonodular opacities bilaterally redemonstrated. Osseous structures are intact. Cholecystectomy clips redemonstrated. IMPRESSION: Background faint reticulonodular opacities bilaterally. Persistent low lung volumes and c ardiomegaly with small left pleural effusion and associated left basilar atelectasis and/or infiltrat e.
[2020-04-30 09:40] LABS: Glucose,Whole Blood 125 mg/dL (75-99)
[2020-04-30 10:20] LABS: African American GFR (CKD) 19 (>60 ml/min/1.73 sqM); Anion Gap 9 mmol/L; Blood Urea Nitrogen 33 mg/dL (9-20); Calcium 8.3 mg/dL (8.4-10.2); Carbon Dioxide 23 mmol/L (22-30); Chloride 99 mmol/L (98-107); Glucose 148 mg/dL (74-99); Non-African American GFR(CKD) 17 (>60 ml/min/1.73 sqM); Sodium 131 mmol/L (137-145)
[2020-04-30 10:30] LABS: Potassium 5.4 mmol/L (3.5-5.1)
[2020-04-30 12:01] LABS: Glucose,Whole Blood 142 mg/dL (75-99)
--- NOTE | 2020-04-30 13:22 | IR ---
EXAMINATION TYPE: IR cvc insert >=5 years DATE OF EXAM: 04/29/2020 COMPARISON: NONE HISTORY: Fluoroscopy time. Fluoroscopy was provided to the referring clinician.
--- NOTE | 2020-04-30 13:43 | P.PN ---
Subjective Progress Note Date: 04/30/20 59 years old male patient of Dr. Mckeon with past medical history of end-stage renal disease on hemodialysis Wednesday and Wednesday, coronary artery disease post angioplasty, and stent placement last catheterization was February 09 with stent of the left circumflex and proximal LAD, atrial fibrillation, diabetes, GERD, hyperlipidemia, hypertension. He does have intermittent lesion along the mid LAD and follows Dr. Hinojosa on as outpatient. Patient was last admitted in February 16 with chest pain and unstable angina, comes in this time with change in mental status, and multiple falls at home. Patient is unable to provide any history due to increased drowsiness. History obtained from the chart. It appears patient had a fall in the bathroom as his leg gave out. He denies any dizziness or syncope episode. CT of the head was obtained that showed no acute lesions. Patient missed 2 dialysis appointment, last hemodialysis was 1 week ago. In the ER patient's blood pressure was 202/94 temp of 99 pulse 91 and respiratory rate 19 on assessment of patient's lab patient had a any, hemoglobin 10.7 hematocrit 32.4 sodium 133 chloride 92 bicarb 21 BUN 86 creatinine 7.56 glucose 237. Urinalysis does suggest leukocytosis with positive blood and positive protein. Urine culture was sent. On evaluation today patient is found to be lying in bed. He is unable to provide any history. Patient did Gabapentin, Dilaudid and 1 L of bolus of IV fluids. We will hold pain medication. Decrease gabapentin 100 3 times a day. Patient will be started on levofloxacin renally adjusted to 250 every 48 hours. Ativan reduced to 0.5 mg 3 times a day. Hold off diuretics. Nephrology consulted At 2:30 this afternoon patient became unresponsive as patient was hooked to the dialysis. The A team responded to the patient did mention patient was pulseless. A brief CPR was done for 2 minutes, with return of spontaneous circulation and return of the pulse with no need of epinephrine. Patient's blood pressure was found to be low. Cardiology consult will be placed. Echo will be ordered. Patient was noted to be in atrial fibrillation and was transferred to the ICU on nonrebreather mask. Another attempt was made to start the hemodialysis while patient was arousable and follows all commands he was found to be more lethargic. Patient's blood pressure dropped on hemodialysis an d became unresponsive not responding to sternal rub. Was noted to be in A. fib with RVR. Patient was placed on BiPAP intubation was not required. 04/12 patient currently in the ICU. Vitals are stable with temp of 98 pulse 67 and respiratory rate 19 and blood pressure 156/71 oxygen saturation 95% on 40% on BiPAP. Patient has leukocytosis of 18 improved from 20 hemoglobin 9.9, sodium 134 chloride 97 bicarb 19 BUN 104 creatinine 8.15 phosphorus 10.7 and total bilirubin 1.7 AST 2932 ALT 2727 alkaline phosphatase 449. Cardiology evaluated the patient thinks patient's episode of unresponsiveness could be vasovagal from low blood pressure. Continue to monitor patient's blood pressure with possible orthostatics when patient is stable. Metoprolol dose increased to 25 twice a day. Initiated on amiodarone 100 mg daily patient is being dialyzed today with minimal ultrafiltration. We will hold hydralazine and Cozaar for systolic less than 125. Patient currently off pressors. Spoke to patient's at bedside who mentioned patient has been falling for the past few months. He had MRI of the lower back done as outpatient that suggested severe spinal stenosis. Patient was set up for PT as outpatient but has been forgetting to often due to weakness in his legs. He has a outpatient appointment pending with an orthopedic surgery 04/13: Patient still in the ICU , on BiPAP, he still have less responsiveness, quite hypertensive today back on vasopressor. Patient was diagnosed tolerate hemodialysis for long had only 1 hour, still currently in significant encephalopathy status, continue IV antibiotic for now there is a small gangrenous spot on the right second toe. 04/14: Patient is off vasopressor, still on BiPAP, still running back and forth between tachycardia and A. fib. No hemodialysis done today. Patient is very confused is taking his lines And all attachment out he required a sitter today. 04/15: Patient is off vasopressor, off BiPAP, he is more awake alert today, he is more hemodynamically stable. He is on hemodialysis and blood pressure is holding well so far should be able to do full cycle of hemodialysis today. Source of infection is still unclear suspect to be dialysis catheter which might be pulled out to place another catheter either in the femoral area or use the fistula graft had in the left forearm. 04/16: Patient evaluated in the ICU. Patient is arousable but easily drifts back to sleep. He had dialysis yesterday, with possible plans for dialysis again today due to elevated BUN/creatinine. Possible source of infection still unclear and suspected to be dialysis catheter. Nephrology plans on repeat blood cultures via dialysis catheter, if positive will discuss discontinuing the IJ permacath. Infectious disease added Cefepime for worsening white count, and continue on Vancomycin. Repeat chest x-ray shows cardiomegaly with left basilar atelectasis. Plans to transfer of the ICU today to select care unit. 04/17: Patient's right IJ permacath dialysis catheter was removed yesterday. Patient's nurse reports that there was pus on the end and this has been cultured. Patient remains in the intensive care unit but has been downgraded to cardiac stepdown unit. Patient has been afebrile, heart rate 57, blood pressure 109/59, pulse ox 100% on 2 L nasal cannula. 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 He does have short bouts of atrial fibrillation most often noted when he drinks cold liquids. Repeat blood work reveals WBC of 32, hemoglobin 9.6, platelet count 285. BUN 47 creatinine 3.63, potassium 4.3. Blood sugars running between 85 and 166. Total bilirubin 1.3, AST 98, ALT 517, alkaline phosphatase 391. Liver function tests are improved from yesterday. Chest x-ray today reveals cardiomegaly. Interstitial density slightly increased. Correlate to exclude developing pulmonary vascular congestion. Left base remains under penetrated area and some underlying atelectasis or infiltrate or effusion possible. 04/18: Patient is seen today on the cardiac stepdown unit. Patient is awake and answering questions but speech is slow and slurred. Reviewed plan of care with him and he verbalizes understanding. Patient is afebrile, heart rate 66, blood pressure 123/55, pulse ox 99% on 2 L nasal cannula. Catheter tip culture is showing presumptive MRSA. Repeat blood cultures have been ordered to see if bacteremia is clearing. Patient is currently on vancomycin pharmacy dosing and cefepime. YAYO performed by Dr. Bowie reveals no evidence of infective endocarditis. No evidence of intracardiac valves vegetation or abscess. Aortic sclerosis, trileaflet mildly thickened with trace aortic insufficiency. Thickened anterior posterior mitral leaflets with moderate mitral regurgitation. Moderate tricuspid regurgitation. Moderate pulmonic insufficiency. Mild biatrial enlargement. Intact anterior atrial septum and intact left atrial appendage without thrombus. Low normal LV with EF of 50%. No pericardial e ffusion. 04/19: Patient had worsening of his mental status during the night and remains confused worse than yesterday. Leandra is on hold this morning for temporary line placement for dialysis. Dr. Nguyen is planning on hemodialysis today and tomorrow. Patient is only able to state that he feels miserable and terrible but nothing specific. He has been afebrile, heart rate 74, blood pressure 161 /75, pulse ox 91% on room air. WBC is 28.4, hemoglobin 8.6, platelet count 285. CO2 19, BUN 75 and creatinine 5.85. Blood sugars running between 205 and 235. Vancomycin level XXI.5. Repeat blood cultures obtained on April 18 are also positive. CAT scan of the abdomen and pelvis with contrast revealed moderate anasarca. Small bilateral pleural effusions with adjacent atelectasis superimpo sed infiltrates not excluded. Mild urinary bladder wall thickening, correlate for cystitis. No significant contrast excretion into the renal collection system on the delayed images. No significant intra-abdominal pelvic abnormality. Tetracycline has recommended continuing vancomycin. 04/20: Patient had a temporary dialysis catheter placed in the right groin and underwent hemodialysis treatment yesterday but due to patient's restlessness it was not a good treatment. His mental status however is significantly improved today. We will plan to order Dilaudid 1 mg before dialysis treatment and if necessary Valium 5 mg can be given. Patient's nurses been updated. Dr. Wills is planning to remove dialysis catheter following treatment today. Blood cultures remain positive including those drawn on April 19. Repeat blood cultures ordered for tomorrow. Dr. Presley has been updated. He has been afebrile, heart rate 65, blood pressure 134/72, pulse ox 97% on 2 L nasal cannula. Blood sugars running between 90-162. Vancomycin level XVIII. 04/21: She underwent dialysis yesterday with removal of a half a liter of fluid as was planned. Patient is scheduled for another treatment today. Patient states that she is feeling better. Mental status is improved from 2 days ago. Plan is to remove dialysis catheter after today's treatment. His blood cultures that were obtained yesterday are positive. Patient has been afebrile, heart rate 65, blood pressure 118/66, pulse ox 94% on 2 L nasal cannula. Creatinine 4.19. Blood sugars are running between 99 and 146. Patient did well with Dilaudid given 1 mg prior to dialysis treatment. We will plan to repeat this today. 04/22: Patient had dialysis yesterday and dialysis catheter was subsequently removed. Repeat blood cultures obtained on April 21 are also positive. Patient denies any new complaints today. No chest pain, shortness of breath. Patient continues to have some confusion. Losartan has been discontinued by nephrology. He has been afebrile, heart rate 62, blood pressure 126/81, pulse ox 99% on 3 L nasal cannula. Repeat blood work reveals W BC at 22.5, hemoglobin 7.5, platelet count 215. Electrolytes normal, BUN 37 creatinine 3.9. Blood sugars running between 86 and 157. Total bilirubin 0.7, AST 23, ALT 107, alkaline phosphatase 226. Vancomycin level XIX.2. 04/23: Patient continues to be confused more so than yesterday. That blood sugars have been elevated later in the afternoon and evening and scheduled NovoLog added to his regime. Repeat blood work reveals sodium of 135, potassium 4.9, chloride 101, CO2 24, BUN 51 creatinine 5. Blood sugars are running between 184 and 263. Repeat blood culture has been obtained today and is pending. 04/24: She appears to be mentally more alert today. He is sleeping and awakens easily. He is having difficulty sleeping at nighttime. Melatonin increased to 9 mg at bedtime. Vistaril discontinued. We have ordered a CAT scan of the chest to rule out abscess. CAT scan of the chest revealed small bilateral pleural effusions. Clinical consideration for empyema. Compressive atelectasis versus consolidation from pneumonia in the dependent lung bases. No suspicious abscess. He continues to have positive blood cultures pharmacy is dosing vancomycin at this point. She and is complaining of chest wall pain when he coughs at site of previous catheter. 04/25: Patient had temporary else's catheter placed yesterday afternoon with Dr. Santizo. Patient is undergoing hemodialysis today. He complains of not being able to sleep with no improvement with melatonin. Trazodone 25 mg at bedtime added. Dr. Beverly is planning to do a right-sided diagnostic thoracentesis after dialysis treatment. He is continued on vancomycin. Patient has been afebrile, heart rate 63, blood pressure 147/65, pulse ox 90% on 2 L nasal cannula. Blood sugars are running between 98 and 151. Blood cultures from April 24 are also positive. Vistaril resumed per patient's request for itching while having dialysis treatment. 04/26: Patient underwent right-sided thoracentesis yesterday with 500 ML's of turbid fluid removed. Cultures are in progress. Patient is afebrile. Blood pressure 161/62, pulse ox 97% on 2 L, heart rate 66. Repeat blood work reveals WBC 11.8, hemoglobin 7.2, platelet count 183. Sodium 134, BUN 32 and creatinine 3.79. Blood sugars running between [address] Presley has changed antibiotics to daptomycin. 04/27: Patient is found resting in bed comfortably without any acute distress. Patient has no point or concerns at this time. Patient remains afebrile. Blood pressure 125/66, heart rate 68, respirations 15 and nonlabored shallow, pulse ox 98% on 2 L via nasal cannula. Culture from 04/25 presumptive MRSA. 04/28: Dialysis catheter removed yesterday. Blood cultures remain positive. Awaiting body fluid culture. Patient remains afebrile. The pressure 103/66, heart rate 59, respirations 16, pulse ox a 92% on room air. 04/29: Patient denies any new complaints today. He does complain of kidney pain. He has been afebrile, heart rate 66, blood pressure 147/72, pulse ox 94% on 2 L nasal cannula. WBC 10.1, hemoglobin 8.2, creatinine 3.9. Alkaline phosphatase 266. Blood culture from April 28 is showing no growth after 24 hours. Repeat blood culture was obtained this morning. He is scheduled today for a temporary dialysis catheter. 04/30: Received call from Dr. High the bacteremia persist and he recommends the patient be transferred to tertiary care center. Blood culture from April 29 is also positive. Patient remains on daptomycin and followed by infectious disease. Patient's mental status is stable today. Repeat chest x-ray reveals background faint reticulonodular opacities bilaterally. Persistent low lung volumes and cardiomegaly with small left pleural effusion and associated left basilar atelectasis and/or infiltrate. Patient had repeat temporary dialysis catheter placed in the right femoral vein. He underwent hemodialysis yesterday with repeat today. manager gyn updated regarding plan for transfer to tertiary care. REVIEW OF SYSTEMS Constitutional: No fever, no chills, no night sweats. No weight change. Reported weakness, reported fatigue reported lethargy. Reported daytime sleepiness. EENT: No headache. No blurred vision or double vision, no loss of vision. No loss of Hearing, no ringing in the ears, no dizziness. No nasal drainage or congestion. No epistaxis. No sore throat. Lungs: No shortness of breath, cough, no sputum production. No wheezing. Cardiovascular: No chest pain, no lower extremity edema. No palpitations. No paroxysmal nocturnal dyspnea. No orthopnea. No lightheadedness or dizziness. No syncopal episodes. Abdominal: No abdominal pain. No nausea, vomiting. No diarrhea. No constipation. No bloody or tarry stools. No loss of appetite. Genitourinary: No dysuria, increased frequency, urgency. No urinary retention. Musculoskeletal: No myalgias. Reports muscle weakness, no gait dysfunction, no frequent falls. No back pain. No neck pain. Integumentary: No wounds, no lesions. No rash or pruritus. No unusual bruisi ng. No change in hair or nails. Neurologic: No aphasia. No facial droop. Reported confusion. No head injury. No headache. No paralysis. No paresthesia. Psychiatric: No depression. No anxiety. Reports insomnia Endocrine: Noted abnormal blood sugars. PHYSICAL EXAMINATION Gen: This is a 59-year-old male patient seen on the cardiac stepdown unit. He is resting in bed and appears to be in no acute respiratory distress. HEENT: Head is atraumatic, normocephalic. Pupils equal, round. Sclerae is anicteric. NECK: Supple. No JVD. No lymphadenopathy. No thyromegaly. LUNGS: Clear to auscultation. No wheezes or rhonchi. No intercostal retractions. HEART: Regular rate and rhythm. 2/6 systolic murmur. ABDOMEN: Soft. Bowel sounds are present. No masses. No tenderness. EXTREMITIES: No pedal edema. No calf tenderness. Right groin temporary dialysis catheter. NEUROLOGICAL: Patient is oriented to person and place. He is able to converse, answer questions and follow commands. ASSESSMENT AND PLAN 1. Sepsis and MRSA bacteremia secondary to dialysis catheter. Permacath has been removed as of yesterday and culture of tip done. Patient is followed by Dr. Presley and continued on vancomycin. Permanent catheter placement once blood cultures are clear. Blood cultures remain positive. CAT scan of the chest as above. Noted consideration for empyema. Status post right-sided diagnostic thoracentesis. Continue daptomycin. Temporary dialysis catheter placed yesterday with hemodialysis yesterday and today. 2. Metabolic encephalopathy secondary to sepsis, uremia, pain medication and benzodiazepines improving. Lorazepam has been discontinued. 3. End-stage renal disease on hemodialysis. Permanent catheter will be placed once bacteremia is cleared. Consult with nephrology and vascular surgery appreciated. Continue PhosLo 1334 mg 3 times daily. 2. Temporary dialysis catheter for hemodialysis today. 4. Fall secondary to degenerative disc disease and spinal stenosis. MRI as an outpatient revealed severe spinal stenosis. Patient has outpatient orthopedic evaluation pending. PT and OT following. 5. Acute syncopal episode most likely vasovagal, patient had brief CPR. Cardiology consult appreciated. 6. History of coronary artery disease with previous PTCA to LAD and circumflex. Lexiscan was negative on previous admission. Continue Plavix 75 mg daily, Imdur 30 mg daily, Lopressor 25 mg in the morning and evening. 7. Paroxysmal atrial fibrillation. Continue eliquis 2.5 mg twice daily and metoprolol, amiodarone at 200 mg daily. (Eliquis on hold) 8. Ischemic cardiomyopathy. 9. Diabetes mellitus type 2, insulin requiring, uncontrolled with hyperglycemia. Continue Levemir 20 units daily, add NovoLog scale 3 units with meals and continue NovoLog scale before meals and at bedtime, 10. Diabetic neuropathy. Continue gabapentin 100 mg 3 times daily. 11. Hypertension. Continue hydralazine 25 mg 3 times daily, losartan has been discontinued by nephrology. 12. Anemia of chronic disease. Continue to monitor. 13. GI prophylaxis. Continue Protonix. 14. DVT prophylaxis. Continue eliquis. DISCHARGE PLAN Tertiary care center. Impression and plan of care have been directed as dictated by the signing physician. Katelyn Wesley nurse practitioner acting as scribe for signing physician. Objective - Vital Signs Vital signs: Vital Signs Temp 98.5 F 04/30/20 00:26 Pulse 69 04/30/20 00:26 Resp 15 04/30/20 00:26 BP 145/73 04/30/20 00:26 Pulse Ox 94 L 04/30/20 07:10 Intake & Output 04/29/20 04/30/20 04/30/20 18:59 06:59 18:59 Intake Total 222 1072 Output Total 1500 0 Balance -1278 1072 Intake: Intake, IV Titration 700 Amount DAPTOmycin 500 mg In 100 Sodium Chloride 0.9% 50 ml @ 100 mls/hr IVPB Q48H [facility] Rx#:[id number] Sodium Chloride 0.9% 250 600 ml @ 0 mls/hr IV .[facility] Rx#:[id number] Oral 222 372 Output: Urine 0 0 Hemodialysis 1500 Other: Voiding Method External Catheter # Voids 0 0 # Bowel Movements 1 - Labs CBC & Chem 7: 04/29/20 06:17 04/30/20 06:09 Labs: Abnormal Lab Results - Last 24 Hours (Table) 04/29/20 04/29/20 04/29/20 Range/Units 06:17 06:17 11:07 RBC 3.01 L (4.30-5.90) m/uL Hgb 8.2 L (13.0-17.5) gm/dL Hct 27.9 L (39.0-53.0) % MCHC 29.4 L (31.0-37.0) g/dL RDW 17.8 H (11.5-15.5) % Neutrophils # 8.2 H (1.3-7.7) k/uL Lymphocytes # 0.8 L (1.0-4.8) k/uL Sodium 131 L (137-145) mmol/L Potassium 5.9 H (3.5-5.1) mmol/L Chloride 97 L (98-107) mmol/L BUN 47 H (9-20) mg/dL Creatinine 4.90 H (0.66-1.25) mg/dL Glucose 102 H (74-99) mg/dL POC Glucose (mg/dL) 207 H (75-99) mg/dL Calcium 8.3 L (8.4-10.2) mg/dL ALT 53 H (4-49) U/L Alkaline Phosphatase 266 H (38-126) U/L Total Protein 6.0 L (6.3-8.2) g/dL Albumin 2.6 L (3.5-5.0) g/dL 04/29/20 04/29/20 04/30/20 Range/Units 16:14 20:03 07:35 RBC (4.30-5.90) m/uL Hgb (13.0-17.5) gm/dL Hct (39.0-53.0) % MCHC (31.0-37.0) g/dL RDW (11.5-15.5) % Neutrophils # (1.3-7.7) k/uL Lymphocytes # (1.0-4.8) k/uL Sodium (137-145) mmol/L Potassium (3.5-5.1) mmol/L Chloride (98-107) mmol/L BUN (9-20) mg/dL Creatinine (0.66-1.25) mg/dL Glucose (74-99) mg/dL POC Glucose (mg/dL) 234 H 137 H 167 H (75-99) mg/dL Calcium (8.4-10.2) mg/dL ALT (4-49) U/L Alkaline Phosphatase (38-126) U/L Total Protein (6.3-8.2) g/dL Albumin (3.5-5.0) g/dL Microbiology - Last 24 Hours (Table) 04/27/20 12:28 Blood Culture Gram Stain - Final Blood Blood Culture - Final Methicillin resist S. aureus 04/28/20 07:29 Blood Culture Gram Stain - Preliminary Blood 04/29/20 06:17 Blood Culture - Final Blood 04/27/20 12:03 Blood Culture Gram Stain - Final Blood Blood Culture - Final Methicillin resist S. aureus 04/28/20 07:29 Blood Culture - Final Blood 04/25/20 13:40 Anaerobic Culture - Final Pleural Fluid 04/25/20 13:40 Gram Stain - Final Pleural Fluid Body Fluid Culture - Final 04/25/20 06:33 Blood Culture Gram Stain - Final Blood Blood Culture - Final Methicillin resist S. aureus
--- NOTE | 2020-04-30 14:50 | P.PN ---
Subjective Progress Note Date: 04/30/20 Principal diagnosis: MRSA bacteremia, acute exacerbation of diastolic CHF, cardiac arrest This is a 59-year-old white male admitted on 04/11/2020, admitted mostly with a diagnosis of sepsis and urinary tract infection, patient is known to have history of multiple medical problems, and has been falling recently quite frequently, is also known to have history of end-stage renal disease, on hemodialysis for the last 3 years, and he has a dialysis catheter in his right subclavian placed apparently a few weeks ago. He did have previous history of left AV fistula which has been nonfunctional recently and that is why he had a subclavian dialysis catheter. Patient is primarily a patient with Dr. Mckeon, he receives dialysis is normally on Wednesday and Wednesday, he had previous history of coronary artery disease and previous angioplasty, stent placement. His other medical problems include chronic atrial fibrillation diabetes dyslipidemia hypertension, and diabetic neuropathy. This time the patient was admitted mostly with mental status change, multiple falls at home, apparently had a recent fall in the bathroom and had trauma CT of the head was unremarkable on admission. Patient missed 2 dialysis appointments and in the ER his blood pressure was significantly elevated at 202/94. He had a low-grade fever, he had a relatively normal electrolytes, blood sugar was 237, and his urinalysis showed pyuria and bacteriuria. Hence patient was admitted mostly with the impression of UTI and sepsis. At 2:30 this afternoon, patient was receiving dialysis, as soon as dialysis was started, patient had a sudden episode of unresponsiveness, he was pulseless according to the team responded to him. Patient had less than 2 minutes of CPR, that there was return of spontaneous circulation, and return of pulse. No monitor was noted at the time, but by the time he woke up, patient was in atrial fibrillation with fairly controlled rhythm. Patient was transferred to the ICU, placed on a nonrebreather mask hemodynamically stable, I was asked to see him on consu ltation since he was transferred to the intensive care unit. Seen in the ICU, patient is on a nonrebreather mask, which I will transition to a high flow nasal cannula, patient is hemodynamically stable, he was in normal sinus rhythm, and he is a bit lethargic, but arousable, and follows all instruct ions. Labs from today were all reviewed. Again noted to have leukocytosis with WBC count 20.2, hemoglobin is 9.9. Troponin is 0.118, and his urine did show evidence of bacteriuria and pyuria. Reevaluated today on 04/12/2019, patient remains in the ICU, he had another episode of near syncope yesterday, patient was noted to become hypotensive upon connection to the dialysis machine. Patient had to be Ambu bag, did not require CPR this time, he had a pulse, but he was hypotensive. I saw the patient shortly after that episode, and his blood pressure was marginal. Recommended starting the patient on norepinephrine and recommended that we proceed with his hemodialysis. Patient did well overnight, did not have any further episodes, tolerated the hemodialysis well yesterday. Presently asymptomatic, patient has paroxysmal atrial fibrillation, but presently in sinus rhythm. On BiPAP which I will discontinue and place on a nasal cannula, and it will be titrated accordingly. Patient is definitely more awake today, alert and oriented 3. However his blood cultures are positive for gram-positive cocci, final identification is not available, and his urine from 04/11 was positive for pr esumptive staph aureus. Hence we will recommend empirically starting the patient on vancomycin, and we will initiate infectious disease consultation on this patient. Obviously the patient may have a positive urinary tract infection with gram-positive bacteremia. During my evaluation of this patient, he was undergoing dialysis, and he seems to be tolerating that quite well. His WBC count is 18.4 hemoglobin is 9.9. Electrolytes are normal bicarb is 19 BUN is 104 creatinine 8.15. Liver enzymes were noted to be elevated, his AST is 2932 and his ALT is 2723 with alkaline phosphatase of 449 could be related to hypoperfusion at the time when the patient had episodes of low blood pressure and at one point he had no pulse according to the team responded to his code. Chest x-ray showed evidence of mild interstitial edema, suspect diastolic congestive heart failure or pulmonary edema secondary to his underlying chronic renal disease Reevaluated today on 04/13/2020, patient remains in the ICU, presently undergoing hemodialysis. Patient remains hemodynamically stable, off BiPAP, seems to have intermittent atrial fibrillation that seems to improve once he goes on BiPAP. ABG did not reflect hypercapnia at any point. Patient is on oral anticoagulation therapy, he is not requiring norepinephrine anymore. Denies any chest pain or discomfort, no episodes of asystole over the last 24 hours, and no episodes of syncope or near syncope. Patient is intermittently confused and requires sedation and soft restraints blood cultures are now positive for MRSA and the patient is now on vancomycin and Levaquin. Potential sources for his MRSA bacteremia could be that his dialysis catheter or right second toe which shows some area of necrosis. Infectious disease has been consulted. For his agitation patient is requiring Ativan every 4 hours. As needed. Pulmonary-webb remains on 2 L nasal cannula or at times on BiPAP at 50% FiO2 with IPAP of 12 and EPAP of 5. On 04/14/2020 the patient is being seen in follow-up in the intensive care unit. The patient this morning is on a BiPAP at a pressure of 12/6 cm of water and FiO2 of 40%. The patient was in pulmonary edema at a time of his admission. He required dialysis since he has been an and that is an improvement in his overall volume status. The patient had no chest x-ray today. The chest x-ray from yesterday showedNo acute abnormalities. There may be some small left-sided pleural effusion. He has a permacath in his right. His last session of hemodialysis was yesterday. Dialysis session to be cut short because of low blood pressure and a chest fibrillation with rapid ventricular response. This morning, his blood pressure is stable on no pressors. He is in in sinus rhythm. He was on norepinephrine infusion yesterday for blood pressure support and this has been also discontinued. The most recent blood cultures negative and the patient remains on vancomycin. He was having possible causes earlier in the most recent possible cultures from the 2020. Neurologically, he is impaired and at times agitated requiring Ativan and the CAT scan of the brain and the cervical spine that was done, admission was was within normal limits. His echocardiogram showed an ejection fraction of 55-60%, mild aortic sclerosis, no pericardial effusion, not abnormalities otherwise. On 04/15/2020 patient seen in follow-up in intensive care unit, he is lethargic, arousable, however drifts back to sleep if left unstimulated, no signs of any respiratory distress, breathing comfortably, he is currently on 2 L of oxygen with pulse ox of 98%, afebrile, hemodynamically stable, he is on 0.9 normal saline at a rate of 10 ML per hour, he has been alternating between nasal cannula and BiPAP support with pressure of 12/6 and FiO2 of 50%. His last chest x-ray from 04/13/2020 showed cardiomegaly no obvious heart failure. Mild new infiltrate in the left lower lobe. He is on Levaquin and vancomycin for MRSA bacteremia, yesterday's blood cultures showed gram-positive cocci in clusters on the preliminary report. White count continues to be significantly elevated at 32.3, hemoglobin is 10.2, BUN is 86, creatinine is 6.2, electrolytes are relat ively unremarkable. Patient's last hemodialysis session was on 04/14/2020 with removal of 800 mL of fluid. Blood pressure has been stable, patient is not requiring any vasopressor support. Patient is on Eliquis for anticoagulation for recent history of A. fib with RVR, he is currently in sinus rhythm with controlled rate. Cardiology is following On 04/16/2020 patient seen in follow-up in intensive care unit, he is slightly more arousable on today's exam, he is given some simple answers, he is oriented to person and place, disoriented to time. Drifts back to sleep if left unstimulated. Appears to be in no acute distress although he does admit to being short of breath at times. Seems to be breathing comfortably currently, he is on 2 L of oxygen with pulse ox of 99%, he had hemodialysis yesterday would removal of 1 L of fluid. His been afebrile. His follow-up blood cultures from 04/15/2020 continue to show gram-positive cocci in groups. Patient continues on vancomycin and cefepime for antibiotic coverage, ID service is following, patient has been having intermittent runs of A. fib with RVR, and spontaneously converts back to sinus. He is in sinus mechanism right now. Cardiology is following, patient is off the Cardizem infusion, he is on oral amiodarone, and he is on Eliquis for anticoagulation. On 04/17/2000 patient seen in follow-up in the intensive care unit, he is currently on 3 L of oxygen, did not require BiPAP support, pulse ox is 100% on 3 L, he is breathing comfortably, he is lethargic, but arousable, he wakes up and answers simple questions, denies any chest discomfort, is currently in sinus mechanism on the monitor, his had intermittent self-limiting bouts of atrial fibrillation, he is on oral amiodarone and Eliquis for anticoagulation. Remains on cefepime and vancomycin, and his follow-up blood cultures from 04/15/2020 are again positive for presumptive MRSA. ID service is following, the source of bacteremia is likely related to hemodialysis catheter in the right subclavian area, fasting surgery has been consulted for removal of the hemodialysis catheter today and insertion of a new hemodialysis catheter in the next 48 hours. Patient has been afebrile, patient had hemodialysis yesterday would removal of 700 mL of fluid. After hemodialysis he did have some lower blood pressures with systolic in the 80s, and in view of relative hypotension his transfer out of ICU was held. On 2020 patient seen in follow-up on selective care unit, his last hemodialysis session was yesterday would removal of 700 mL of fluid. No signs of any acute respiratory distress, patient is on 2 L of oxygen pulse ox is 97%, his been afebrile, vital signs have been stable. His right subclavian permacath has been discontinued, today's labs have been reviewed, no CBC, BMP showed creatinine 5.19, BUN is 70, potassium is 4.1. His liver enzymes were improving on yesterday's labs. He has been afebrile. His last follow-up blood culture from 04/17/2020 showed presumptive MRSA. he continues on cefepime and vancomycin, ID service is following. On 04/29/2020 patient is having hemodialysis catheter inserted. He is on 2 L of oxygen pulse ox is 98%, he has been afebrile since 04/22/2020, remains persistently bacteremic, his last positive blood culture was on or 04/27/2020 showing gram-positive cocci, follow blood cultures from 04/28/2020 so far have shown no growth, he remains on daptomycin, ID service is following, tagged WBC scan showed no evidence of abscess, his right-sided thoracentesis on 04/25/2020 showed transudative fluid, with negative cultures. Patient is on 2 L of oxygen pulse ox is 98%, he denies any cough, denies any phlegm production. His last chest x-ray was on 04/25/2020 showing improvement right-sided pleural effusion after thoracentesis, with no evidence of pneumothorax and residual small left pleural effusion, patient's last session of hemodialysis was on 04/24/2020 would removal of 1.3 L of fluid On 04/30/2020 patient seen in follow-up medical surgical floor, patient continues to have positive blood cultures, most recent blood cultures on 04/29/2020 and 04/30/2020 for gram-positive cocci in groups, presumptive MRSA. Patient is confused, at times he was noted to be talking to people that are not there. Patient is afebrile, hemodynamically stable, is having another hemodialysis treatment today. He remains on antibiotics, ID service is following, patient is currently on daptomycin. Patient remains persistently bacteremic, yesterday he had yet another temporary hemodialysis catheter placed in the right groin. To date we have been unable to identify the source of his bacteremia. No cough or chest pain, today's chest x-ray has been reviewed showing persistent low lung volumes, cardiomegaly and small left pleural effusion with associated left basilar atelectasis. His right pleural fluid is transudate, the cultures were negative, no abdominal pain, no nausea or vomiting, no diarrhea Objective - Vital Signs Vital signs: Vital Signs Temp 98.5 F 04/30/20 07:42 Pulse 72 04/30/20 07:42 Resp 18 04/30/20 07:42 BP 161/74 04/30/20 07:42 Pulse Ox 94 L 04/30/20 07:42 Intake & Output 04/29/20 04/30/20 04/30/20 18:59 06:59 18:59 Intake Total 222 1072 Output Total 1500 0 Balance -1278 1072 Intake: Intake, IV Titration 700 Amount DAPTOmycin 500 mg In 100 Sodium Chloride 0.9% 50 ml @ 100 mls/hr IVPB Q48H [facility] Rx#:[id number] Sodium Chloride 0.9% 250 600 ml @ 0 mls/hr IV .[facility] Rx#:[id number] Oral 222 372 Output: Urine 0 0 Hemodialysis 1500 Other: Voiding Method External Catheter # Voids 0 0 # Bowel Movements 1 - Exam GENERAL EXAM: Sleepy, but arousable to voice, 59-year-old on 2 l/min of oxygen a pulse ox of 94%, comfortable in no apparent distress. HEAD: Normocephalic/atraumatic. EYES: Normal reaction of pupils, equal size. Conjunctiva pink, sclera white. NOSE: Clear with pink turbinates. THROAT: No erythema or exudates. NECK: No masses, no JVD, no thyroid enlargement, no adenopathy. CHEST: No chest wall deformity. Symmetrical expansion. LUNGS: Equal air entry with no crackles, wheeze, rhonchi or dullness. CVS: Regular rate and rhythm, normal S1 and S2, no gallops, soft systolic murmur, loudest at the left midclavicular line fourth to fifth intercostal space, no rubs ABDOMEN: Soft, nontender. No hepatosplenomegaly, normal bowel sounds, no guarding or rigidity. EXTREMITIES: No clubbing, no edema, no cyanosis, 2+ pulses and upper and lower extremities. Left upper arm AV shunt in place, with positive bruit and thrill MUSCULOSKELETAL: Muscle strength and tone normal. SPINE: No scoliosis or deformity SKIN: No rashes. CENTRAL NERVOUS SYSTEM: he is encephalopathic. No focal deficits, tone is normal in all 4 extremities. - Labs CBC & Chem 7: 04/29/20 06:17 04/30/20 06:09 Labs: Abnormal Lab Results - Last 24 Hours (Table) 04/29/20 04/29/20 04/30/20 Range/Units 16:14 20:03 06:09 Sodium 131 L (137-145) mmol/L Potassium 5.4 H (3.5-5.1) mmol/L BUN 33 H (9-20) mg/dL Creatinine 3.72 H (0.66-1.25) mg/dL Glucose 148 H (74-99) mg/dL POC Glucose (mg/dL) 234 H 137 H (75-99) mg/dL Calcium 8.3 L (8.4-10.2) mg/dL 04/30/20 04/30/20 04/30/20 Range/Units 07:35 09:37 11:59 Sodium (137-145) mmol/L Potassium (3.5-5.1) mmol/L BUN (9-20) mg/dL Creatinine (0.66-1.25) mg/dL Glucose (74-99) mg/dL POC Glucose (mg/dL) 167 H 125 H 142 H (75-99) mg/dL Calcium (8.4-10.2) mg/dL Microbiology - Last 24 Hours (Table) 04/29/20 06:17 Blood Culture Gram Stain - Preliminary Blood 04/27/20 12:28 Blood Culture Gram Stain - Final Blood Blood Culture - Final Methicillin resist S. aureus 04/28/20 07:29 Blood Culture Gram Stain - Preliminary Blood 04/29/20 06:17 Blood Culture - Final Blood 04/27/20 12:03 Blood Culture Gram Stain - Final Blood Blood Culture - Final Methicillin resist S. aureus 04/28/20 07:29 Blood Culture - Final Blood 04/25/20 13:40 Anaerobic Culture - Final Pleural Fluid 04/25/20 13:40 Gram Stain - Final Pleural Fluid Body Fluid Culture - Final Assessment and Plan Plan: 1 Acute hypoxic respiratory failure secondary to MRSA sepsis and a component of a possible acute diastolic congestive heart failure/ fluid overload 2 MRSA bacteremia and sepsis, source is not clear. Currently on daptomycin, WBC tagged scan showed no focal abscess, right-sided thoracentesis revealed transudative fluid with negative cultures 3 Cardiac arrest, possible asystole or possible pulseless electrical activity, brief, responded to 2 minutes of CPR. 4 Chronic end-stage renal disease on hemodialysis, noncompliant and has been skipping dialysis. 5 Recurrent falls, could be related to his diabetic neuropathy/peripheral diabetic neuropathy or could be cardiac in nature with cardiac arrhythmia, needs to be further investigated. 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 8 Chronic anemia secondary to chronic renal disease. 9 Suspect some component of obstructive sleep apnea syndrome. 10 Morbid obesity. 11 Right second toe cellulitis with necrosis of the dorsal tip 12 Abnormal liver enzymes, possible shock liver. Related to his cardiac arrest. 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 Patient may need a repeat transesophageal echo cardiogram for possibility of ruling out endocarditis, there is a possibility his AV shunt in his left arm possibly being the source of infection. Patient has been on antibiotics, his been afebrile, his blood cultures continue to be positive. Today's assessment. Has been reviewed and only showed small left pleural effusion, previously his right-sided pleural fluid was transudative in nature, not related to possibility of lung infection. Tagged WBC scan did not show any abscess. From pulmonary perspective we recommend transferring the patient to tertiary care facility further investigation and management of his persistent bacteremia. This was discussed with the primary care service, and arrangements will be made for transfer to tertiary care facility today I performed a history & physical examination of the patient and discussed their management with my nurse practitioner, Tamiko Garcia. I reviewed the nurse practitioner's note and agree with the documented findings and plan of care. Lung sounds are positive for bibasilar crackles. The findings and the impression was discussed with the patient. I attest to the documentation by the nurse practitioner. Time with Patient: Less than 30
[2020-04-30 16:00] LABS: Glucose,Whole Blood 52 mg/dL (75-99)
[2020-04-30 16:13] LABS: Glucose,Whole Blood 70 mg/dL (75-99)
--- NOTE | 2020-04-30 18:00 | PN ---
PROGRESS NOTE Patient is seen for followup for end-stage renal disease. He was dialyzed yesterday after femoral dialysis catheter was placed. This morning he is confused. Patient will be dialyzed again today. Blood cultures have been negative since 04/28 and 04/29/2020. PHYSICAL EXAMINATION: On examination today, blood pressure was 161/74, heart rate 72 per minute. Patient is afebrile. EXAMINATION OF THE HEART: S1 and S2. EXAMINATION OF LUNGS: Bilateral breath sounds are heard. ABDOMEN: Soft, non-tender. Examination of lower extremities shows edema 1+ bilaterally. 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 He is moving all 4 extremities. LABS: Labs from today show sodium 131, potassium 5.4, BUN 33, serum creatinine 3.7. ASSESSMENT: 1. End-stage renal disease, currently being dialyzed with temporary dialysis catheter. Patient was dialyzed yesterday. We will dialyze him today and then again tomorrow and then remove the catheter tomorrow. 2. Persistent methicillin-resistant Staphylococcus aeruginosa bacteremia with finally blood cultures from 04/28 and 04/29 showing no growth. 3. Hyperkalemia, currently improved post dialysis. 4. Mental status changes. Patient's mentation had improved over the last few days and he is again confused. Hopefully his mentation will improve again after treatment today. 5. Anemia, multifactorial, mostly anemia of chronic disease. PLAN: Hemodialysis today and then again in a.m. Increase UF as tolerated. We will plan for about 3 L tomorrow. MMODL / IJN: [id number] /
[2020-04-30] MEDS: traZODone HCL 50 MG TAB PO SCH (20:48)
[2020-04-30] MEDS: HYDROcodone/APAP 5-325MG 1 EACH TAB PO PRN (20:51)
--- NOTE | 2020-04-30 23:02 | PN ---
PROGRESS NOTE DATE OF SERVICE: 04/30/2020 REASON FOR FOLLOWUP: MRSA bacteremia. INTERVAL HISTORY: Patient is afebrile. The patient is breathing comfortably on room air. Denies any chest pain or cough. No abdominal pain. No diarrhea noted. PHYSICAL EXAMINATION: Blood pressure 107/58 with a pulse of 59. Temperature is 97.9. He is 94% on room air. General description: The patient is a middle-aged male lying in bed in no distress. Respiratory system: Unlabored breathing, clear to auscultation anteriorly. Heart S1, S2. Regular rate and rhythm. ABDOMEN: Soft, no tenderness. LABS: Blood cultures from 04/28 as well as 04/29 are positive. DIAGNOSTIC IMPRESSION AND PLAN: Patient with persistent MRSA bacteremia in this patient who did have extensive workup including a YAYO that was negative. MRI of the spine could not be done. However, CT of the abdomen and pelvis as well as the thoracic spine did not show any evidence of spinal involvement. Antibiotic has been switched to daptomycin without any improvement. Rifampin could not be added because of the drug interaction. Pulmonary considering patient to be transferred to tertiary care for further workup. This was discussed with the admitting physician. Continue daptomycin. The patient evaluated by ID service in the Outpatient facility. Continue supportive care. MMODL / IJN: [id number] /
[2020-05-01 00:06] LABS: Glucose,Whole Blood 188 mg/dL (75-99)
[2020-05-01] MEDS: INSULIN ASPART (NovoLOG) 100 UNIT/ML VIAL SQ SCH ×8 (00:10→20:15)
[2020-05-01] MEDS: hydrALAZINE HCL 25 MG TAB PO SCH ×4 (00:11→20:19)
[2020-05-01 07:19] LABS: Glucose,Whole Blood 94 mg/dL (75-99)
[2020-05-01] MEDS: GABAPENTIN 100 MG CAP PO SCH ×3 (08:59→20:19)
[2020-05-01] MEDS: allopurinoL 100 MG TAB PO SCH (08:59)
[2020-05-01] MEDS: CLOPIDOGREL 75 MG TAB PO SCH (08:59)
[2020-05-01] MEDS: hydrOXYzine pamoate 25 MG CAP PO PRN (08:59)
[2020-05-01] MEDS: PANTOPRAZOLE 40 MG TABLET PO SCH (08:59)
[2020-05-01] MEDS: AMIODARONE 200 MG TAB PO SCH (08:59)
[2020-05-01] MEDS: INSULIN DETEMIR (LEVEMIR) 100 UNIT/ML SYR SQ SCH (09:01)
[2020-05-01] MEDS: ISOSORBIDE MONONITRATE ER 30 MG TAB.ER.24H PO SCH (09:04)
[2020-05-01] MEDS: METOPROLOL TARTRATE 25 MG TAB PO SCH ×2 (09:04→20:19)
[2020-05-01] MEDS ORDERED: LORazepam 0.5 MG TAB PO PRN (11:29)
[2020-05-01 12:11] LABS: Glucose,Whole Blood 151 mg/dL (75-99)
--- NOTE | 2020-05-01 14:39 | P.PN ---
Subjective Progress Note Date: 05/01/20 59 years old male patient of Dr. Mckeon with past medical history of end-stage renal disease on hemodialysis Wednesday and Wednesday, coronary artery disease post angioplasty, and stent placement last catheterization was February 09 with stent of the left circumflex and proximal LAD, atrial fibrillation, diabetes, GERD, hyperlipidemia, hypertension. He does have intermittent lesion along the mid LAD and follows Dr. Hinojosa on as outpatient. Patient was last admitted in February 16 with chest pain and unstable angina, comes in this time with change in mental status, and multiple falls at home. Patient is unable to provide any history due to increased drowsiness. History obtained from the chart. It appears patient had a fall in the bathroom as his leg gave out. He denies any dizziness or syncope episode. CT of the head was obtained that showed no acute lesions. Patient missed 2 dialysis appointment, last hemodialysis was 1 week ago. In the ER patient's blood pressure was 202/94 temp of 99 pulse 91 and respiratory rate 19 on assessment of patient's lab patient had a any, hemoglobin 10.7 hematocrit 32.4 sodium 133 chloride 92 bicarb 21 BUN 86 creatinine 7.56 glucose 237. Urinalysis does suggest leukocytosis with positive blood and positive protein. Urine culture was sent. On evaluation today patient is found to be lying in bed. He is unable to provide any history. Patient did Gabapentin, Dilaudid and 1 L of bolus of IV fluids. We will hold pain medication. Decrease gabapentin 100 3 times a day. Patient will be started on levofloxacin renally adjusted to 250 every 48 hours. Ativan reduced to 0.5 mg 3 times a day. Hold off diuretics. Nephrology consulted At 2:30 this afternoon patient became unresponsive as patient was hooked to the dialysis. The A team responded to the patient did mention patient was pulseless. A brief CPR was done for 2 minutes, with return of spontaneous circulation and return of the pulse with no need of epinephrine. Patient's blood pressure was found to be low. Cardiology consult will be placed. Echo will be ordered. Patient was noted to be in atrial fibrillation and was transferred to the ICU on nonrebreather mask. Another attempt was made to start the hemodialysis while patient was arousable and follows all commands he was found to be more lethargic. Patient's blood pressure dropped on hemodialysis an d became unresponsive not responding to sternal rub. Was noted to be in A. fib with RVR. Patient was placed on BiPAP intubation was not required. 04/12 patient currently in the ICU. Vitals are stable with temp of 98 pulse 67 and respiratory rate 19 and blood pressure 156/71 oxygen saturation 95% on 40% on BiPAP. Patient has leukocytosis of 18 improved from 20 hemoglobin 9.9, sodium 134 chloride 97 bicarb 19 BUN 104 creatinine 8.15 phosphorus 10.7 and total bilirubin 1.7 AST 2932 ALT 2727 alkaline phosphatase 449. Cardiology evaluated the patient thinks patient's episode of unresponsiveness could be vasovagal from low blood pressure. Continue to monitor patient's blood pressure with possible orthostatics when patient is stable. Metoprolol dose increased to 25 twice a day. Initiated on amiodarone 100 mg daily patient is being dialyzed today with minimal ultrafiltration. We will hold hydralazine and Cozaar for systolic less than 125. Patient currently off pressors. Spoke to patient's at bedside who mentioned patient has been falling for the past few months. He had MRI of the lower back done as outpatient that suggested severe spinal stenosis. Patient was set up for PT as outpatient but has been forgetting to often due to weakness in his legs. He has a outpatient appointment pending with an orthopedic surgery 04/13: Patient still in the ICU , on BiPAP, he still have less responsiveness, quite hypertensive today back on vasopressor. Patient was diagnosed tolerate hemodialysis for long had only 1 hour, still currently in significant encephalopathy status, continue IV antibiotic for now there is a small gangrenous spot on the right second toe. 04/14: Patient is off vasopressor, still on BiPAP, still running back and forth between tachycardia and A. fib. No hemodialysis done today. Patient is very confused is taking his lines And all attachment out he required a sitter today. 04/15: Patient is off vasopressor, off BiPAP, he is more awake alert today, he is more hemodynamically stable. He is on hemodialysis and blood pressure is holding well so far should be able to do full cycle of hemodialysis today. Source of infection is still unclear suspect to be dialysis catheter which might be pulled out to place another catheter either in the femoral area or use the fistula graft had in the left forearm. 04/16: Patient evaluated in the ICU. Patient is arousable but easily drifts back to sleep. He had dialysis yesterday, with possible plans for dialysis again today due to elevated BUN/creatinine. Possible source of infection still unclear and suspected to be dialysis catheter. Nephrology plans on repeat blood cultures via dialysis catheter, if positive will discuss discontinuing the IJ permacath. Infectious disease added Cefepime for worsening white count, and continue on Vancomycin. Repeat chest x-ray shows cardiomegaly with left basilar atelectasis. Plans to transfer of the ICU today to select care unit. 04/17: Patient's right IJ permacath dialysis catheter was removed yesterday. Patient's nurse reports that there was pus on the end and this has been cultured. Patient remains in the intensive care unit but has been downgraded to cardiac stepdown unit. Patient has been afebrile, heart rate 57, blood pressure 109/59, pulse ox 100% on 2 L nasal cannula. patient monitor has been a sinus rhythm. He does have short bouts of atrial fibrillation most often noted when he drinks cold liquids. Repeat blood work reveals WBC of 32, hemoglobin 9.6, platelet count 285. BUN 47 creatinine 3.63, potassium 4.3. Blood sugars running between 85 and 166. Total bilirubin 1.3, AST 98, ALT 517, alkaline phosphatase 391. Liver function tests are improved from yesterday. Chest x-ray today reveals cardiomegaly. Interstitial density slightly increased. Correlate to exclude developing pulmonary vascular congestion. Left base remains under penetrated area and some underlying atelectasis or infiltrate or effusion possible. 04/18: Patient is seen today on the cardiac stepdown unit. Patient is awake and answering questions but speech is slow and slurred. Reviewed plan of care with him and he verbalizes understanding. Patient is afebrile, heart rate 66, blood pressure 123/55, pulse ox 99% on 2 L nasal cannula. Catheter tip culture is showing presumptive MRSA. Repeat blood cultures have been ordered to see if bacteremia is clearing. Patient is currently on vancomycin pharmacy dosing and cefepime. YAYO performed by Dr. Bowie reveals no evidence of infective endocarditis. No evidence of intracardiac valves vegetation or abscess. Aortic sclerosis, trileaflet mildly thickened with trace aortic insufficiency. Thickened anterior posterior mitral leaflets with moderate mitral regurgitation. Moderate tricuspid regurgitation. Moderate pulmonic insufficiency. Mild biatrial enlargement. Intact anterior atrial septum and intact left atrial appendage without thrombus. Low normal LV with EF of 50%. No pericardial e ffusion. 04/19: Patient had worsening of his mental status during the night and remains confused worse than yesterday. Leandra is on hold this morning for temporary line placement for dialysis. Dr. Nguyen is planning on hemodialysis today and tomorrow. Patient is only able to state that he feels miserable and terrible but nothing specific. He has been afebrile, heart rate 74, blood pressure 161 /75, pulse ox 91% on room air. WBC is 28.4, hemoglobin 8.6, platelet count 285. CO2 19, BUN 75 and creatinine 5.85. Blood sugars running between 205 and 235. Vancomycin level XXI.5. Repeat blood cultures obtained on April 18 are also positive. CAT scan of the abdomen and pelvis with contrast revealed moderate anasarca. Small bilateral pleural effusions with adjacent atelectasis superimpo sed infiltrates not excluded. Mild urinary bladder wall thickening, correlate for cystitis. No significant contrast excretion into the renal collection system on the delayed images. No significant intra-abdominal pelvic abnormality. Tetracycline has recommended continuing vancomycin. 04/20: Patient had a temporary dialysis catheter placed in the right groin and underwent hemodialysis treatment yesterday but due to patient's restlessness it was not a good treatment. His mental status however is significantly improved today. We will plan to order Dilaudid 1 mg before dialysis treatment and if necessary Valium 5 mg can be given. Patient's nurses been updated. Dr. Wills is planning to remove dialysis catheter following treatment today. Blood cultures remain positive including those drawn on April 19. Repeat blood cultures ordered for tomorrow. Dr. Presley has been updated. He has been afebrile, heart rate 65, blood pressure 134/72, pulse ox 97% on 2 L nasal cannula. Blood sugars running between 90-162. Vancomycin level XVIII. 04/21: She underwent dialysis yesterday with removal of a half a liter of fluid as was planned. Patient is scheduled for another treatment today. Patient states that she is feeling better. Mental status is improved from 2 days ago. Plan is to remove dialysis catheter after today's treatment. His blood cultures that were obtained yesterday are positive. Patient has been afebrile, heart rate 65, blood pressure 118/66, pulse ox 94% on 2 L nasal cannula. Creatinine 4.19. Blood sugars are running between 99 and 146. Patient did well with Dilaudid given 1 mg prior to dialysis treatment. We will plan to repeat this today. 04/22: Patient had dialysis yesterday and dialysis catheter was subsequently removed. Repeat blood cultures obtained on April 21 are also positive. Patient denies any new complaints today. No chest pain, shortness of breath. Patient continues to have some confusion. Losartan has been discontinued by nephrology. He has been afebrile, heart rate 62, blood pressure 126/81, pulse ox 99% on 3 L nasal cannula. Repeat blood work reveals W BC at 22.5, hemoglobin 7.5, platelet count 215. Electrolytes normal, BUN 37 creatinine 3.9. Blood sugars running between 86 and 157. Total bilirubin 0.7, AST 23, ALT 107, alkaline phosphatase 226. Vancomycin level XIX.2. 04/23: Patient continues to be confused more so than yesterday. That blood sugars have been elevated later in the afternoon and evening and scheduled NovoLog added to his regime. Repeat blood work reveals sodium of 135, potassium 4.9, chloride 101, CO2 24, BUN 51 creatinine 5. Blood sugars are running between 184 and 263. Repeat blood culture has been obtained today and is pending. 04/24: She appears to be mentally more alert today. He is sleeping and awakens easily. He is having difficulty sleeping at nighttime. Melatonin increased to 9 mg at bedtime. Vistaril discontinued. We have ordered a CAT scan of the chest to rule out abscess. CAT scan of the chest revealed small bilateral pleural effusions. Clinical consideration for empyema. Compressive atelectasis versus consolidation from pneumonia in the dependent lung bases. No suspicious abscess. He continues to have positive blood cultures pharmacy is dosing vancomycin at this point. She and is complaining of chest wall pain when he coughs at site of previous catheter. 04/25: Patient had temporary else's catheter placed yesterday afternoon with Dr. Santizo. Patient is undergoing hemodialysis today. He complains of not being able to sleep with no improvement with melatonin. Trazodone 25 mg at bedtime added. Dr. Beverly is planning to do a right-sided diagnostic thoracentesis after dialysis treatment. He is continued on vancomycin. Patient has been afebrile, heart rate 63, blood pressure 147/65, pulse ox 90% on 2 L nasal cannula. Blood sugars are running between 98 and 151. Blood cultures from April 24 are also positive. Vistaril resumed per patient's request for itching while having dialysis treatment. 04/26: Patient underwent right-sided thoracentesis yesterday with 500 ML's of turbid fluid removed. Cultures are in progress. Patient is afebrile. Blood pressure 161/62, pulse ox 97% on 2 L, heart rate 66. Repeat blood work reveals WBC 11.8, hemoglobin 7.2, platelet count 183. Sodium 134, BUN 32 and creatinine 3.79. Blood sugars running between [address] Presley has changed antibiotics to daptomycin. 04/27: Patient is found resting in bed comfortably without any acute distress. Patient has no point or concerns at this time. Patient remains afebrile. Blood pressure 125/66, heart rate 68, respirations 15 and nonlabored shallow, pulse ox 98% on 2 L via nasal cannula. Culture from 04/25 presumptive MRSA. 04/28: Dialysis catheter removed yesterday. Blood cultures remain positive. Awaiting body fluid culture. Patient remains afebrile. The pressure 103/66, heart rate 59, respirations 16, pulse ox a 92% on room air. 04/29: Patient denies any new complaints today. He does complain of kidney pain. He has been afebrile, heart rate 66, blood pressure 147/72, pulse ox 94% on 2 L nasal cannula. WBC 10.1, hemoglobin 8.2, creatinine 3.9. Alkaline phosphatase 266. Blood culture from April 28 is showing no growth after 24 hours. Repeat blood culture was obtained this morning. He is scheduled today for a temporary dialysis catheter. 04/30: Received call from Dr. High the bacteremia persist and he recommends the patient be transferred to tertiary care center. Blood culture from April 29 is also positive. Patient remains on daptomycin and followed by infectious disease. Patient's mental status is stable today. Repeat chest x-ray reveals background faint reticulonodular opacities bilaterally. Persistent low lung volumes and cardiomegaly with small left pleural effusion and associated left basilar atelectasis and/or infiltrate. Patient had repeat temporary dialysis catheter placed in the right femoral vein. He underwent hemodialysis yesterday with repeat today. manager of production updated regarding plan for transfer to tertiary care. 05/01: And is receiving hemodialysis at the time of evaluation. He is compl aining of itchiness and is on Vistaril. He also complained of anxiety and low dose lorazepam has been added. This is patient's third dialysis treatment in a row. He has intermittent confusion. Patient is being prepared for transfer to [facility] once a bed is available and later this afternoon, patient changed his mind and is refusing transfer. Patient is afebrile, heart rate 70, blood pressu re 116/96, pulse ox 93% on 2 L nasal cannula. Blood sugars are running between 94 and 188. Blood culture obtained on April 30 is currently showing no growth at 24 hours. Patient had a negative YAYO done on June [address] Bowie. We may request for this to be repeated if blood culture turns positive tomorrow. Discussed with cardiology and patient placed nothing by mouth tentatively for YAYO tomorrow. REVIEW OF SYSTEMS Constitutional: No fever, no chills, no night sweats. No weight change. Reported weakness, reported fatigue reported lethargy. Reported daytime slee piness. EENT: No headache. No blurred vision or double vision, no loss of vision. No loss of Hearing, no ringing in the ears, no dizziness. No nasal drainage or congestion. No epistaxis. No sore throat. Lungs: No shortness of breath, cough, no sputum production. No wheezing. Cardiovascular: No chest pain, no lower extremity edema. No palpitations. No paroxysmal nocturnal dyspnea. No orthopnea. No lightheadedness or dizziness. No syncopal episodes. Abdominal: No abdominal pain. No nausea, vomiting. No diarrhea. No constipation. No bloody or tarry stools. No loss of appetite. Genitourinary: No dysuria, increased frequency, urgency. No urinary retention. Musculoskeletal: No myalgias. Reports muscle weakness, no gait dysfunction, no frequent falls. No back pain. No neck pain. Integumentary: No wounds, no lesions. Reports pruritus. No unusual bruising. No change in hair or nails. Neurologic: No aphasia. No facial droop. Reported confusion a mentally. No head injury. No headache. No paralysis. No paresthesia. Psychiatric: No depression. Reports anxiety. Reports insomnia Endocrine: Noted abnormal blood sugars. PHYSICAL EXAMINATION Gen: This is a 59-year-old male patient seen on the cardiac stepdown unit. He is resting in bed and appears to be in no acute respiratory distress. Patient is undergoing hemodialysis. HEENT: Head is atraumatic, normocephalic. Pupils equal, round. Sclerae is anicteric. NECK: Supple. No JVD. No lymphadenopathy. No thyromegaly. LUNGS: Clear to auscultation. No wheezes or rhonchi. No intercostal retr actions. HEART: Regular rate and rhythm. 2/6 systolic murmur. ABDOMEN: Soft. Bowel sounds are present. No masses. No tenderness. EXTREMITIES: No pedal edema. No calf tenderness. Right groin temporary dialysis catheter. NEUROLOGICAL: Patient is oriented to person and place. He is able to converse, answer questions and follow commands. ASSESSMENT AND PLAN 1. Sepsis and MRSA bacteremia secondary to dialysis catheter. Permacath has been removed as of yesterday and culture of tip done. Patient is followed by Dr. Presley and continued on vancomycin. Permanent catheter placement once blood cultures are clear. Blood cultures remain positive. Status post right-sided diagnostic thoracentesis. Is post-YAYO. Continue daptomycin. Temporary dialysis catheter patient is on third day of hemodialysis. Possible repeat YAYO tomorrow. 2. Metabolic encephalopathy secondary to sepsis, uremia, pain medication and benzodiazepines improving. Lorazepam has been discontinued. 3. End-stage renal disease on hemodialysis. Permanent catheter will be placed once bacteremia is cleared. Consult with nephrology and vascular surgery appreciated. Continue PhosLo 1334 mg 3 times daily. 2. Temporary dialysis catheter for hemodialysis today. 4. Fall secondary to degenerative disc disease and spinal stenosis. MRI as an outpatient revealed severe spinal stenosis. Patient has outpatient orthopedic evaluation pending. PT and OT following. 5. Acute syncopal episode most likely vasovagal, patient had brief CPR. Cardiology consult appreciated. 6. History of coronary artery disease with previous PTCA to LAD and circumflex. Lexiscan was negative on previous admission. Continue Plavix 75 mg daily, Imdur 30 mg daily, Lopressor 25 mg in the morning and evening. 7. Paroxysmal atrial fibrillation. Continue eliquis 2.5 mg twice daily and metoprolol, amiodarone at 200 mg daily. (Eliquis on hold) 8. Ischemic cardiomyopathy. 9. Diabetes mellitus type 2, insulin requiring, uncontrolled with hyperglycemia. Continue Levemir 20 units daily, add NovoLog scale 3 units with meals and continue NovoLog scale before meals and at bedtime, 10. Diabetic neuropathy. Continue gabapentin 100 mg 3 times daily. 11. Hypertension. Continue hydralazine 25 mg 3 times daily, losartan has been discontinued by nephrology. 12. Anemia of chronic disease. Continue to monitor. 13. GI prophylaxis. Continue Protonix. 14. DVT prophylaxis. Continue eliquis. DISCHARGE PLAN Determined. Patient is refusing transfer to [facility]. Impression and plan of care have been directed as dictated by the signing physician. Katelyn Wesley nurse practitioner acting as scribe for signing physician. Objective - Vital Signs Vital signs: Vital Signs Temp 98.0 F 05/01/20 02:00 Pulse 59 L 05/01/20 02:00 Resp 18 05/01/20 02:00 BP 111/62 05/01/20 02:00 Pulse Ox 99 05/01/20 02:00 Intake & Output 04/30/20 05/01/20 05/01/20 18:59 06:59 18:59 Output Total 1999 Balance -1999 Output: Hemodialysis 1999 - Labs CBC & Chem 7: 04/29/20 06:17 04/30/20 06:09 Labs: Abnormal Lab Results - Last 24 Hours (Table) 04/30/20 04/30/20 04/30/20 Range/Units 06:09 09:37 11:59 Sodium 131 L (137-145) mmol/L Potassium 5.4 H (3.5-5.1) mmol/L BUN 33 H (9-20) mg/dL Creatinine 3.72 H (0.66-1.25) mg/dL Glucose 148 H (74-99) mg/dL POC Glucose (mg/dL) 125 H 142 H (75-99) mg/dL Calcium 8.3 L (8.4-10.2) mg/dL Troponin I (0.000-0.034) ng/mL 04/30/20 04/30/20 04/30/20 Range/Units 15:58 16:12 17:51 Sodium (137-145) mmol/L Potassium (3.5-5.1) mmol/L BUN (9-20) mg/dL Creatinine (0.66-1.25) mg/dL Glucose (74-99) mg/dL POC Glucose (mg/dL) 52 L 70 L (75-99) mg/dL Calcium (8.4-10.2) mg/dL Troponin I 0.106 H* (0.000-0.034) ng/mL 04/30/20 Range/Units 23:54 Sodium (137-145) mmol/L Potassium (3.5-5.1) mmol/L BUN (9-20) mg/dL Creatinine (0.66-1.25) mg/dL Glucose (74-99) mg/dL POC Glucose (mg/dL) 188 H (75-99) mg/dL Calcium (8.4-10.2) mg/dL Troponin I (0.000-0.034) ng/mL Microbiology - Last 24 Hours (Table) 04/30/20 06:07 Blood Culture - Preliminary Blood No Growth after 24 hours 04/29/20 06:17 Blood Culture Gram Stain - Preliminary Blood Blood Culture - Preliminary Presumptive MRSA 04/28/20 07:29 Blood Culture Gram Stain - Preliminary Blood Blood Culture - Preliminary Presumptive MRSA
--- NOTE | 2020-05-01 14:57 | PN ---
PROGRESS NOTE The patient is seen for followup for end-stage renal disease. This morning he is awake, comfortable. He is not in any acute distress. Mentation is better than yesterday. The patient's blood cultures however were positive again from 04/29/2020. One set was negative and the other set did become positive. In view of ongoing persistent bacteremia, he is currently being transferred to a tertiary care facility. A YAYO that was done on 04/18 did not show any evidence of vegetation. The patient's tunneled catheter has been removed and he is being dialyzed with a temporary dialysis catheter for about 2-3 treatments and then it gets discontinued. Today is his third treatment and patient's femoral Blake will be removed today post dialysis. PHYSICAL EXAMINATION: Blood pressure was 162/67, heart rate 72 per minute. He is afebrile. Examination shows the patient is awake, comfortable. He is not in any acute distress. Abdomen is soft, nontender. No significant edema noted lower extremities. LABS: No labs from today. Yesterday potassium was 5.4 and creatinine was 3.7 mg/dL on 04/30/2020. ASSESSMENT: 1. End-stage renal disease, on hemodialysis on a Wednesday, Wednesday, Wednesday schedule as outpatient, however, currently being dialyzed via temporary dialysis catheter which is removed after 2 or 3 treatments. Today will be patient's third treatment from the session and we will remove the temporary catheter after his dialysis today. The patient needs to be dialyzed at least after 3 days of line holiday as his mentation usually starts to worsen. 2. Hyperkalemia, improved with dialysis. 3. Persistent methicillin-resistant Staphylococcus aureus bacteremia with negative YAYO on 04/18/2020, being followed by Infectious Disease, maintained on daptomycin. 4. Anemia of chronic disease, multifactorial. PLAN: Remove dialysis catheter today after dialysis. MMODL / IJN: [id number] /
--- NOTE | 2020-05-01 15:43 | PN ---
PROGRESS NOTE DATE OF SERVICE: 05/01/2020 REASON FOR FOLLOWUP: MRSA bacteremia, persistent. INTERVAL HISTORY: The patient is currently afebrile. The patient is breathing comfortably. The patient denies having any chest pain, shortness of breath or cough. No abdominal pain and no diarrhea. PHYSICAL EXAMINATION: Blood pressure 160/67 with a pulse of 72, temperature 97.6. He is 98% on room air. General description is a middle-aged male lying in bed in no distress. RESPIRATORY SYSTEM: Unlabored breathing. Clear to auscultation anteriorly. HEART: S1, S2. Regular rate and rhythm. ABDOMEN: Soft. No tenderness. LABS: Blood culture from 04/30 so far negative. DIAGNOSTIC IMPRESSION AND PLAN: Patient with persistent MRSA bacteremia in this patient who did have extensive workup, including a YAYO, CT of abdomen and pelvis with contrast as well as CT of chest with no definite focus of infection. Patient is currently on 8 mg/kg q.48 hours of daptomycin. That will be continued with consideration of possible for further workup. Continue with supportive care. MMODL / IJN: [id number] /
[2020-05-01] MEDS: HYDROcodone/APAP 5-325MG 1 EACH TAB PO PRN (16:06)
[2020-05-01 17:09] LABS: Glucose,Whole Blood 132 mg/dL (75-99)
[2020-05-01 20:07] LABS: Glucose,Whole Blood 73 mg/dL (75-99)
[2020-05-01] MEDS: traZODone HCL 50 MG TAB PO SCH (20:19)
[2020-05-01] MEDS: DAPTOmycin 500 MG in SODIUM CHLORIDE 0.9% 50 ML IVPB SCH (21:59)
[2020-05-02] MEDS: INSULIN ASPART (NovoLOG) 100 UNIT/ML VIAL SQ SCH ×5 (06:58→20:20)
[2020-05-02 06:59] LABS: Glucose,Whole Blood 66 mg/dL (75-99)
[2020-05-02 07:16] LABS: Glucose,Whole Blood 77 mg/dL (75-99)
[2020-05-02] MEDS: INSULIN DETEMIR (LEVEMIR) 100 UNIT/ML SYR SQ SCH (08:27)
[2020-05-02 08:35] LABS: Glucose,Whole Blood 93 mg/dL (75-99)
[2020-05-02] MEDS: hydrOXYzine pamoate 25 MG CAP PO PRN (08:35)
[2020-05-02] MEDS: PANTOPRAZOLE 40 MG TABLET PO SCH (11:58)
[2020-05-02] MEDS: hydrALAZINE HCL 25 MG TAB PO SCH ×3 (11:58→20:22)
[2020-05-02] MEDS: METOPROLOL TARTRATE 25 MG TAB PO SCH ×2 (11:58→20:22)
[2020-05-02] MEDS: CLOPIDOGREL 75 MG TAB PO SCH (11:58)
[2020-05-02] MEDS: ISOSORBIDE MONONITRATE ER 30 MG TAB.ER.24H PO SCH (11:59)
[2020-05-02] MEDS: allopurinoL 100 MG TAB PO SCH (11:59)
[2020-05-02] MEDS: GABAPENTIN 100 MG CAP PO SCH ×3 (11:59→20:22)
[2020-05-02] MEDS: AMIODARONE 200 MG TAB PO SCH (11:59)
[2020-05-02 12:18] LABS: Glucose,Whole Blood 95 mg/dL (75-99)
--- NOTE | 2020-05-02 14:17 | P.PN ---
Subjective Progress Note Date: 05/02/20 59 years old male patient of Dr. Mckeon with past medical history of end-stage renal disease on hemodialysis Wednesday and Wednesday, coronary artery disease post angioplasty, and stent placement last catheterization was February 09 with stent of the left circumflex and proximal LAD, atrial fibrillation, diabetes, GERD, hyperlipidemia, hypertension. He does have intermittent lesion along the mid LAD and follows Dr. Hinojosa on as outpatient. Patient was last admitted in February 16 with chest pain and unstable angina, comes in this time with change in mental status, and multiple falls at home. Patient is unable to provide any history due to increased drowsiness. History obtained from the chart. It appears patient had a fall in the bathroom as his leg gave out. He denies any dizziness or syncope episode. CT of the head was obtained that showed no acute lesions. Patient missed 2 dialysis appointment, last hemodialysis was 1 week ago. In the ER patient's blood pressure was 202/94 temp of 99 pulse 91 and respiratory rate 19 on assessment of patient's lab patient had a any, hemoglobin 10.7 hematocrit 32.4 sodium 133 chloride 92 bicarb 21 BUN 86 creatinine 7.56 glucose 237. Urinalysis does suggest leukocytosis with positive blood and positive protein. Urine culture was sent. On evaluation today patient is found to be lying in bed. He is unable to provide any history. Patient did Gabapentin, Dilaudid and 1 L of bolus of IV fluids. We will hold pain medication. Decrease gabapentin 100 3 times a day. Patient will be started on levofloxacin renally adjusted to 250 every 48 hours. Ativan reduced to 0.5 mg 3 times a day. Hold off diuretics. Nephrology consulted At 2:30 this afternoon patient became unresponsive as patient was hooked to the dialysis. The A team responded to the patient did mention patient was pulseless. A brief CPR was done for 2 minutes, with return of spontaneous circulation and return of the pulse with no need of epinephrine. Patient's blood pressure was found to be low. Cardiology consult will be placed. Echo will be ordered. Patient was noted to be in atrial fibrillation and was transferred to the ICU on nonrebreather mask. Another attempt was made to start the hemodialysis while patient was arousable and follows all commands he was found to be more lethargic. Patient's blood pressure dropped on hemodialysis an d became unresponsive not responding to sternal rub. Was noted to be in A. fib with RVR. Patient was placed on BiPAP intubation was not required. 04/12 patient currently in the ICU. Vitals are stable with temp of 98 pulse 67 and respiratory rate 19 and blood pressure 156/71 oxygen saturation 95% on 40% on BiPAP. Patient has leukocytosis of 18 improved from 20 hemoglobin 9.9, sodium 134 chloride 97 bicarb 19 BUN 104 creatinine 8.15 phosphorus 10.7 and total bilirubin 1.7 AST 2932 ALT 2727 alkaline phosphatase 449. Cardiology evaluated the patient thinks patient's episode of unresponsiveness could be vasovagal from low blood pressure. Continue to monitor patient's blood pressure with possible orthostatics when patient is stable. Metoprolol dose increased to 25 twice a day. Initiated on amiodarone 100 mg daily patient is being dialyzed today with minimal ultrafiltration. We will hold hydralazine and Cozaar for systolic less than 125. Patient currently off pressors. Spoke to patient's at bedside who mentioned patient has been falling for the past few months. He had MRI of the lower back done as outpatient that suggested severe spinal stenosis. Patient was set up for PT as outpatient but has been forgetting to often due to weakness in his legs. He has a outpatient appointment pending with an orthopedic surgery 04/13: Patient still in the ICU , on BiPAP, he still have less responsiveness, quite hypertensive today back on vasopressor. Patient was diagnosed tolerate hemodialysis for long had only 1 hour, still currently in significant encephalopathy status, continue IV antibiotic for now there is a small gangrenous spot on the right second toe. 04/14: Patient is off vasopressor, still on BiPAP, still running back and forth between tachycardia and A. fib. No hemodialysis done today. Patient is very confused is taking his lines And all attachment out he required a sitter today. 04/15: Patient is off vasopressor, off BiPAP, he is more awake alert today, he is more hemodynamically stable. He is on hemodialysis and blood pressure is holding well so far should be able to do full cycle of hemodialysis today. Source of infection is still unclear suspect to be dialysis catheter which might be pulled out to place another catheter either in the femoral area or use the fistula graft had in the left forearm. 04/16: Patient evaluated in the ICU. Patient is arousable but easily drifts back to sleep. He had dialysis yesterday, with possible plans for dialysis again today due to elevated BUN/creatinine. Possible source of infection still unclear and suspected to be dialysis catheter. Nephrology plans on repeat blood cultures via dialysis catheter, if positive will discuss discontinuing the IJ permacath. Infectious disease added Cefepime for worsening white count, and continue on Vancomycin. Repeat chest x-ray shows cardiomegaly with left basilar atelectasis. Plans to transfer of the ICU today to select care unit. 04/17: Patient's right IJ permacath dialysis catheter was removed yesterday. Patient's nurse reports that there was pus on the end and this has been cultured. Patient remains in the intensive care unit but has been downgraded to cardiac stepdown unit. Patient has been afebrile, heart rate 57, blood pressure 109/59, pulse ox 100% on 2 L nasal cannula. pvc monitor has been a sinus rhythm. He does have short bouts of atrial fibrillation most often noted when he drinks cold liquids. Repeat blood work reveals WBC of 32, hemoglobin 9.6, platelet count 285. BUN 47 creatinine 3.63, potassium 4.3. Blood sugars running between 85 and 166. Total bilirubin 1.3, AST 98, ALT 517, alkaline phosphatase 391. Liver function tests are improved from yesterday. Chest x-ray today reveals cardiomegaly. Interstitial density slightly increased. Correlate to exclude developing pulmonary vascular congestion. Left base remains under penetrated area and some underlying atelectasis or infiltrate or effusion possible. 04/18: Patient is seen today on the cardiac stepdown unit. Patient is awake and answering questions but speech is slow and slurred. Reviewed plan of care with him and he verbalizes understanding. Patient is afebrile, heart rate 66, blood pressure 123/55, pulse ox 99% on 2 L nasal cannula. Catheter tip culture is showing presumptive MRSA. Repeat blood cultures have been ordered to see if bacteremia is clearing. Patient is currently on vancomycin pharmacy dosing and cefepime. YAYO performed by Dr. Bowie reveals no evidence of infective endocarditis. No evidence of intracardiac valves vegetation or abscess. Aortic sclerosis, trileaflet mildly thickened with trace aortic insufficiency. Thickened anterior posterior mitral leaflets with moderate mitral regurgitation. Moderate tricuspid regurgitation. Moderate pulmonic insufficiency. Mild biatrial enlargement. Intact anterior atrial septum and intact left atrial appendage without thrombus. Low normal LV with EF of 50%. No pericardial e ffusion. 04/19: Patient had worsening of his mental status during the night and remains confused worse than yesterday. Leandra is on hold this morning for temporary line placement for dialysis. Dr. Nguyen is planning on hemodialysis today and tomorrow. Patient is only able to state that he feels miserable and terrible but nothing specific. He has been afebrile, heart rate 74, blood pressure 161 /75, pulse ox 91% on room air. WBC is 28.4, hemoglobin 8.6, platelet count 285. CO2 19, BUN 75 and creatinine 5.85. Blood sugars running between 205 and 235. Vancomycin level XXI.5. Repeat blood cultures obtained on April 18 are also positive. CAT scan of the abdomen and pelvis with contrast revealed moderate anasarca. Small bilateral pleural effusions with adjacent atelectasis superimpo sed infiltrates not excluded. Mild urinary bladder wall thickening, correlate for cystitis. No significant contrast excretion into the renal collection system on the delayed images. No significant intra-abdominal pelvic abnormality. Tetracycline has recommended continuing vancomycin. 04/20: Patient had a temporary dialysis catheter placed in the right groin and underwent hemodialysis treatment yesterday but due to patient's restlessness it was not a good treatment. His mental status however is significantly improved today. We will plan to order Dilaudid 1 mg before dialysis treatment and if necessary Valium 5 mg can be given. Patient's nurses been updated. Dr. Wills is planning to remove dialysis catheter following treatment today. Blood cultures remain positive including those drawn on April 19. Repeat blood cultures ordered for tomorrow. Dr. Presley has been updated. He has been afebrile, heart rate 65, blood pressure 134/72, pulse ox 97% on 2 L nasal cannula. Blood sugars running between 90-162. Vancomycin level XVIII. 04/21: She underwent dialysis yesterday with removal of a half a liter of fluid as was planned. Patient is scheduled for another treatment today. Patient states that she is feeling better. Mental status is improved from 2 days ago. Plan is to remove dialysis catheter after today's treatment. His blood cultures that were obtained yesterday are positive. Patient has been afebrile, heart rate 65, blood pressure 118/66, pulse ox 94% on 2 L nasal cannula. Creatinine 4.19. Blood sugars are running between 99 and 146. Patient did well with Dilaudid given 1 mg prior to dialysis treatment. We will plan to repeat this today. 04/22: Patient had dialysis yesterday and dialysis catheter was subsequently removed. Repeat blood cultures obtained on April 21 are also positive. Patient denies any new complaints today. No chest pain, shortness of breath. Patient continues to have some confusion. Losartan has been discontinued by nephrology. He has been afebrile, heart rate 62, blood pressure 126/81, pulse ox 99% on 3 L nasal cannula. Repeat blood work reveals W BC at 22.5, hemoglobin 7.5, platelet count 215. Electrolytes normal, BUN 37 creatinine 3.9. Blood sugars running between 86 and 157. Total bilirubin 0.7, AST 23, ALT 107, alkaline phosphatase 226. Vancomycin level XIX.2. 04/23: Patient continues to be confused more so than yesterday. That blood sugars have been elevated later in the afternoon and evening and scheduled NovoLog added to his regime. Repeat blood work reveals sodium of 135, potassium 4.9, chloride 101, CO2 24, BUN 51 creatinine 5. Blood sugars are running between 184 and 263. Repeat blood culture has been obtained today and is pending. 04/24: She appears to be mentally more alert today. He is sleeping and awakens easily. He is having difficulty sleeping at nighttime. Melatonin increased to 9 mg at bedtime. Vistaril discontinued. We have ordered a CAT scan of the chest to rule out abscess. CAT scan of the chest revealed small bilateral pleural effusions. Clinical consideration for empyema. Compressive atelectasis versus consolidation from pneumonia in the dependent lung bases. No suspicious abscess. He continues to have positive blood cultures pharmacy is dosing vancomycin at this point. She and is complaining of chest wall pain when he coughs at site of previous catheter. 04/25: Patient had temporary else's catheter placed yesterday afternoon with Dr. Santizo. Patient is undergoing hemodialysis today. He complains of not being able to sleep with no improvement with melatonin. Trazodone 25 mg at bedtime added. Dr. Beverly is planning to do a right-sided diagnostic thoracentesis after dialysis treatment. He is continued on vancomycin. Patient has been afebrile, heart rate 63, blood pressure 147/65, pulse ox 90% on 2 L nasal cannula. Blood sugars are running between 98 and 151. Blood cultures from April 24 are also positive. Vistaril resumed per patient's request for itching while having dialysis treatment. 04/26: Patient underwent right-sided thoracentesis yesterday with 500 ML's of turbid fluid removed. Cultures are in progress. Patient is afebrile. Blood pressure 161/62, pulse ox 97% on 2 L, heart rate 66. Repeat blood work reveals WBC 11.8, hemoglobin 7.2, platelet count 183. Sodium 134, BUN 32 and creatinine 3.79. Blood sugars running between [address] Presley has changed antibiotics to daptomycin. 04/27: Patient is found resting in bed comfortably without any acute distress. Patient has no point or concerns at this time. Patient remains afebrile. Blood pressure 125/66, heart rate 68, respirations 15 and nonlabored shallow, pulse ox 98% on 2 L via nasal cannula. Culture from 04/25 presumptive MRSA. 04/28: Dialysis catheter removed yesterday. Blood cultures remain positive. Awaiting body fluid culture. Patient remains afebrile. The pressure 103/66, heart rate 59, respirations 16, pulse ox a 92% on room air. 04/29: Patient denies any new complaints today. He does complain of kidney pain. He has been afebrile, heart rate 66, blood pressure 147/72, pulse ox 94% on 2 L nasal cannula. WBC 10.1, hemoglobin 8.2, creatinine 3.9. Alkaline phosphatase 266. Blood culture from April 28 is showing no growth after 24 hours. Repeat blood culture was obtained this morning. He is scheduled today for a temporary dialysis catheter. 04/30: Received call from Dr. High the bacteremia persist and he recommends the patient be transferred to tertiary care center. Blood culture from April 29 is also positive. Patient remains on daptomycin and followed by infectious disease. Patient's mental status is stable today. Repeat chest x-ray reveals background faint reticulonodular opacities bilaterally. Persistent low lung volumes and cardiomegaly with small left pleural effusion and associated left basilar atelectasis and/or infiltrate. Patient had repeat temporary dialysis catheter placed in the right femoral vein. He underwent hemodialysis yesterday with repeat today. manager internet updated regarding plan for transfer to tertiary care. 05/01: And is receiving hemodialysis at the time of evaluation. He is compl aining of itchiness and is on Vistaril. He also complained of anxiety and low dose lorazepam has been added. This is patient's third dialysis treatment in a row. He has intermittent confusion. Patient is being prepared for transfer to [facility] once a bed is available and later this afternoon, patient changed his mind and is refusing transfer. Patient is afebrile, heart rate 70, blood pressu re 116/96, pulse ox 93% on 2 L nasal cannula. Blood sugars are running between 94 and 188. Blood culture obtained on April 30 is currently showing no growth at 24 hours. Patient had a negative YAYO done on June [address] Bowie. We may request for this to be repeated if blood culture turns positive tomorrow. Discussed with cardiology and patient placed nothing by mouth tentatively for YAOY tomorrow. 05/02: Dr. Bowie will perform repeat YAYO tomorrow. Blood culture is now showing no growth for 48 hours from April 30. Patient had low blood sugar this morning of 66 but he did not eat dinner last night. Insulin adjusted. Patient is complaining of itching which he is on Vistaril. Patient has been afebrile, heart rate 60, blood pressure 156/74, pulse ox 92% on room air. Again, temporary catheter was removed yesterday after dialysis and is planned for 3 day line holiday unless mentation worsens. Cardiology is planning for repeat YAYO tomorrow. REVIEW OF SYSTEMS Constitutional: No fever, no chills, no night sweats. No weight change. Reported weakness, reported fatigue reported lethargy. Reported daytime sleepiness. EENT: No headache. No blurred vision or double vision, no loss of vision. No loss of Hearing, no ringing in the ears, no dizziness. No nasal drainage or congestion. No epistaxis. No sore throat. Lungs: No shortness of breath, occational cough, no sputum production. No wheezing. Cardiovascular: No chest pain, no lower extremity edema. No palpitations. No paroxysmal nocturnal dyspnea. No orthopnea. No lightheadedness or dizziness. No syncopal episodes. Abdominal: No abdominal pain. No nausea, vomiting. No diarrhea. No const ipation. No bloody or tarry stools. No loss of appetite. Genitourinary: No dysuria, increased frequency, urgency. No urinary retention. Musculoskeletal: No myalgias. Reports muscle weakness, no gait dysfunction, no frequent falls. No back pain. No neck pain. Integumentary: No wounds, no lesions. Reports pruritus. No unusual bruising. No change in hair or nails. Neurologic: No aphasia. No facial droop. Reported confusion a mentally. No head injury. No headache. No paralysis. No paresthesia. Psychiatric: No depression. Reports anxiety. Reports insomnia Endocrine: Noted abnormal blood sugars. PHYSICAL EXAMINATION Gen: This is a 59-year-old male patient seen on the cardiac stepdown unit. He is resting in bed and appears to be in no acute respiratory distress. HEENT: Head is atraumatic, normocephalic. Pupils equal, round. Sclerae is anicteric. NECK: Supple. No JVD. No lymphadenopathy. No thyromegaly. LUNGS: Clear to auscultation. No wheezes or rhonchi. No intercostal retractions. HEART: Regular rate and rhythm. 2/6 systolic murmur. ABDOMEN: Soft. Bowel sounds are present. No masses. No tenderness. EXTREMITIES: No pedal edema. No calf tenderness. Right groin temporary dialysis catheter. NEUROLOGICAL: Patient is oriented to person and place. He is able to converse, answer questions and follow commands. ASSESSMENT AND PLAN 1. Sepsis and MRSA bacteremia secondary to dialysis catheter. Permacath has been removed as of yesterday and culture of tip done. Patient is followed by Dr. Presley and continued on vancomycin. Permanent catheter placement once blood cultures are clear. Blood cultures and entered. Status post right-sided diagnostic thoracentesis. Status post-YAYO. Continue daptomycin. Temporary dialysis catheter again has been removed. Repeat YAYO tomorrow. 2. Metabolic encephalopathy secondary to sepsis, uremia, pain medication and benzodiazepines improving. Lorazepam has been discontinued. 3. End-stage renal disease on hemodialysis. Permanent catheter will be placed once bacteremia is cleared. Consult with nephrology and vascular surgery appreciated. Continue PhosLo 1334 mg 3 times daily. 2. Temporary dialysis catheter for hemodialysis today. 4. Fall secondary to degenerative disc disease and spinal stenosis. MRI as an outpatient revealed severe spinal stenosis. Patient has outpatient orthopedic evaluation pending. PT and OT following. 5. Acute syncopal episode most likely vasovagal, patient had brief CPR. Cardiology consult appreciated. 6. History of coronary artery disease with previous PTCA to LAD and circumflex. Lexiscan was negative on previous admission. Continue Plavix 75 mg daily, Imdur 30 mg daily, Lopressor 25 mg in the morning and evening. 7. Paroxysmal atrial fibrillation. Continue eliquis 2.5 mg twice daily and metoprolol, amiodarone at 200 mg daily. (Eliquis on hold) 8. Ischemic cardiomyopathy. 9. Diabetes mellitus type 2, insulin requiring, uncontrolled with hyperglycemia and hypoglycemia. Continue Levemir decreased to 10 units daily, NovoLog scale with meals as continued. Continue NovoLog scale before meals and at bedtime, 10. Diabetic neuropathy. Continue gabapentin 100 mg 3 times daily. 11. Hypertension. Continue hydralazine 25 mg 3 times daily, losartan has been discontinued by nephrology. 12. Anemia of chronic disease. Continue to monitor. 13. Stage II decubitus ulcer to coccyx area. Continue local wound care 14. GI prophylaxis. Continue Protonix. 15. DVT prophylaxis. Continue eliquis. DISCHARGE PLAN [facility] early next week once blood cultures are clear and permanent dialysis catheter can be placed. Impression and plan of care have been directed as dictated by the signing physician. Katelyn Wesley nurse practitioner acting as scribe for signing physician. Objective - Vital Signs Vital signs: Vital Signs Temp 97.8 F 05/02/20 02:06 Pulse 60 05/02/20 02:06 Resp 16 05/02/20 02:06 BP 130/65 05/02/20 02:06 Pulse Ox 95 05/02/20 02:06 Intake & Output 05/01/20 05/02/20 05/02/20 18:59 06:59 18:59 Intake Total 200 Output Total 2500 Balance -2300 Intake: Oral 200 Output: Urine 0 Hemodialysis 2500 Other: Voiding Method External Catheter External Catheter # Voids 0 # Bowel Movements 2 - Labs CBC & Chem 7: 04/29/20 06:17 04/30/20 06:09 Labs: Abnormal Lab Results - Last 24 Hours (Table) 05/01/20 05/01/20 05/01/20 Range/Units 12:10 17:07 20:06 POC Glucose (mg/dL) 151 H 132 H 73 L (75-99) mg/dL 05/02/20 Range/Units 06:57 POC Glucose (mg/dL) 66 L (75-99) mg/dL Microbiology - Last 24 Hours (Table) 04/30/20 06:07 Blood Culture - Preliminary Blood No Growth after 48 hours 04/28/20 07:29 Blood Culture Gram Stain - Final Blood Blood Culture - Final Methicillin resist S. aureus 04/29/20 06:17 Blood Culture Gram Stain - Final Blood Blood Culture - Final Methicillin resist S. aureus 04/27/20 12:28 Blood Culture Gram Stain - Final Blood Blood Culture - Final Methicillin resist S. aureus
--- NOTE | 2020-05-02 15:23 | PN ---
PROGRESS NOTE Patient is seen for followup for end-stage renal disease. The patient is currently being treated for persistent MRSA bacteremia. His initial YAYO was negative. However, he continues to have positive blood cultures. The patient the patient's Perm-A-Cath has been removed. He gets a temporary dialysis catheter placed and is dialyzed for 3 days in a row and then his catheter is removed. The patient had his third treatment yesterday. However, his catheter is not being removed until today. There were plans to transfer to [facility] however patient has refused. PHYSICAL EXAMINATION: On examination today, blood pressure is 178/77, heart rate 67 per minute. Afebrile. Examination shows no significant edema in lower extremities. He is awake, not in any acute distress. Alert and oriented x3. please delete note. MMODL / IJN: [id number] / [id number]
--- NOTE | 2020-05-02 15:35 | PN ---
PROGRESS NOTE Patient is seen for followup for end-stage renal disease. He is currently being treated for persistent MRSA bacteremia. Patient's PermCath has been removed. His initial YAYO was negative for any vegetation. However, since the blood cultures remain positive, he is scheduled for another YAYO today. Patient has been having dialysis through a temporary dialysis catheter which gets removed after 2 to 3 treatments. He had his third consecutive treatment yesterday and the catheter is to be discontinued. It will be removed today. PHYSICAL EXAMINATION: On examination today patient is comfortable. He denies any significant complaints. Awake, alert, oriented x3. Blood pressure 126/69, heart rate 58 per minute. No evidence of edema noted in lower extremities. Abdomen is soft, nontender. E BUSINESS MANAGER exam grossly intact. LABS: No labs available from today. ASSESSMENT: 1. End-stage renal disease, on hemodialysis, currently receiving intermittent dialysis via a temporary catheter which is removed after 2 to 3 consecutive treatments. Patient's dialysis catheter will be discontinued today. He had his third consecutive treatment yesterday. 2. Persistent MRSA bacteremia, scheduled for repeat YAYO to rule out vegetation. Currently maintained on daptomycin. 3. Mental status changes, now improved. 4. Hyperkalemia, improved post dialysis. PLAN: Remove dialysis catheter today and we will dialyze the patient in 3 to 4 days' time, depending on his labs and overall general condition via temporary catheter. MMODL / IJN: [id number] /
[2020-05-02 16:33] LABS: Glucose,Whole Blood 103 mg/dL (75-99)
[2020-05-02] MEDS: HYDROcodone/APAP 5-325MG 1 EACH TAB PO PRN (16:46)
[2020-05-02 16:48] VITALS: PULSE 61
[2020-05-02 19:46] VITALS: BP 156/77; RESP 18; TEMP 97.7
--- NOTE | 2020-05-02 19:55 | PN ---
PROGRESS NOTE DATE OF SERVICE: 05/02/2020 REASON FOR FOLLOWUP: MRSA bacteremia. INTERVAL HISTORY: The patient is currently afebrile. The patient is breathing comfortably. The patient denies having any chest pain or shortness of breath or cough. No nausea, no vomiting, no abdominal pain or diarrhea. PHYSICAL EXAMINATION: Blood pressure 145/53, pulse of 51, temperature 96.4. He is 98% on 2 L nasal cannula. General description is a middle-aged male lying in bed in no distress. RESPIRATORY SYSTEM: Unlabored breathing. Clear to auscultation anteriorly. HEART: S1, S2. Regular rate and rhythm. ABDOMEN: Soft. No tenderness. LABS: Blood culture from 04/30 has been negative so far. level . DIAGNOSTIC IMPRESSION AND PLAN: Patient with MRSA bacteremia, persistent, likely related to PermCath; has been discontinued. He did have persistent bacteremia and did have extensive workup, including a YAYO that was negative. CT chest did not show any pneumonia or evidence of involvement of . CT of abdomen and pelvis done with contrast did not show any involvement of the lumbosacral spine. MRI could not be done because of his renal failure. The patient seems to be responding to daptomycin. Blood culture has been negative. If it remains negative, especially the one done today, by Wednesday he will be able to get another PermCath for at least 6 weeks of IV daptomycin because of his prolonged bacteremia. WBC scan has been ordered and we will follow results. Continue supportive care. MMODL / IJN: [id number] /
[2020-05-02 20:13] LABS: Glucose,Whole Blood 95 mg/dL (75-99)
[2020-05-02] MEDS: traZODone HCL 50 MG TAB PO SCH (20:22)
[2020-05-03] MEDS ORDERED: INSULIN DETEMIR (LEVEMIR) 100 UNIT/ML SYR SQ SCH (09:00)
--- NOTE | 2020-05-03 11:22 | PCN ---
PROCEDURE NOTE PROCEDURE: Removal of dialysis catheter right femoral approach. DESCRIPTION OF PROCEDURE: The patient was seen. The right groin was prepped. Stitches were removed. Catheter was removed. Pressure was held. Pressure dressing applied. Patient tolerated the procedure well. LUL / LIS: [id number] /
== END 2020-05-02 23:03 | disposition short-term general hospital (02) | DRG 314 ==
LOC: EC 13:48 → 4SSUR 18:10 → 1SOBS 22:37 → 4SSUR 22:45 → 2SICU 04-11 14:07 → 3SCARD 04-17 21:46 → 4SSUR 04-24 00:06
PROVIDERS: ADMIT Internal Medicine; ATTEND Internal Medicine
PROC: 5A1D70Z Performance of Urinary Filtration, Intermittent, Less than 6 Hours Per Day (ICD-10-PCS; 2020-04-10)
PROC: 5A12012 Performance of Cardiac Output, Single, Manual (ICD-10-PCS; principal; 2020-04-11)
PROC: 5A09457 Assistance with Respiratory Ventilation, 24-96 Consecutive Hours, Continuous Positive Airway Pressure (ICD-10-PCS; 2020-04-11)
PROC: 3E033XZ Introduction of Vasopressor into Peripheral Vein, Percutaneous Approach (ICD-10-PCS; 2020-04-11)
PROC: 02PYX3Z Removal of Infusion Device from Great Vessel, External Approach (ICD-10-PCS; 2020-04-17)
PROC: B246ZZ4 Ultrasonography of Right and Left Heart, Transesophageal (ICD-10-PCS; 2020-04-18)
PROC: 06PYX3Z Removal of Infusion Device from Lower Vein, External Approach (ICD-10-PCS; 2020-04-21)
PROC: 06HY33Z Insertion of Infusion Device into Lower Vein, Percutaneous Approach (ICD-10-PCS; 2020-04-24)
PROC: 0W993ZX Drainage of Right Pleural Cavity, Percutaneous Approach, Diagnostic (ICD-10-PCS; 2020-04-25)
PROC: 06HY33Z Insertion of Infusion Device into Lower Vein, Percutaneous Approach (ICD-10-PCS; 2020-04-29)
PROC: 06PYX3Z Removal of Infusion Device from Lower Vein, External Approach (ICD-10-PCS; 2020-05-02)
DX: T80.211A Bloodstream infection due to central venous catheter, initial encounter (principal); A41.02 Sepsis due to Methicillin resistant Staphylococcus aureus; I46.9 Cardiac arrest, cause unspecified; K72.00 Acute and subacute hepatic failure without coma; J96.01 Acute respiratory failure with hypoxia; R65.20 Severe sepsis without septic shock; G92 Toxic encephalopathy; I50.33 Acute on chronic diastolic (congestive) heart failure; J15.212 Pneumonia due to Methicillin resistant Staphylococcus aureus; N18.6 End stage renal disease; I13.2 Hypertensive heart and chronic kidney disease with heart failure and with stage 5 chronic kidney disease, or end stage renal disease; N17.9 Acute kidney failure, unspecified; E87.2 Acidosis; E11.52 Type 2 diabetes mellitus with diabetic peripheral angiopathy with gangrene; I96 Gangrene, not elsewhere classified; T82.510A Breakdown (mechanical) of surgically created arteriovenous fistula, initial encounter; N39.0 Urinary tract infection, site not specified; J91.8 Pleural effusion in other conditions classified elsewhere; L89.152 Pressure ulcer of sacral region, stage 2; D63.1 Anemia in chronic kidney disease; E83.9 Disorder of mineral metabolism, unspecified; E11.42 Type 2 diabetes mellitus with diabetic polyneuropathy; E11.22 Type 2 diabetes mellitus with diabetic chronic kidney disease; I95.9 Hypotension, unspecified; E11.39 Type 2 diabetes mellitus with other diabetic ophthalmic complication; E11.65 Type 2 diabetes mellitus with hyperglycemia; I48.0 Paroxysmal atrial fibrillation; Z91.15 Patient's noncompliance with renal dialysis; Z99.2 Dependence on renal dialysis; E66.01 Morbid (severe) obesity due to excess calories; Z20.822 Contact with and (suspected) exposure to COVID-19; I08.3 Combined rheumatic disorders of mitral, aortic and tricuspid valves; I25.82 Chronic total occlusion of coronary artery; I25.10 Atherosclerotic heart disease of native coronary artery without angina pectoris; I25.5 Ischemic cardiomyopathy; F32.9 Major depressive disorder, single episode, unspecified; G47.33 Obstructive sleep apnea (adult) (pediatric); E86.1 Hypovolemia; M48.00 Spinal stenosis, site unspecified; G89.29 Other chronic pain; L03.031 Cellulitis of right toe; H54.8 Legal blindness, as defined in USA; K76.1 Chronic passive congestion of liver; E87.5 Hyperkalemia; F41.9 Anxiety disorder, unspecified; G25.81 Restless legs syndrome; L29.9 Pruritus, unspecified; M47.816 Spondylosis without myelopathy or radiculopathy, lumbar region; M51.27 Other intervertebral disc displacement, lumbosacral region; M62.830 Muscle spasm of back; R47.81 Slurred speech; I37.1 Nonrheumatic pulmonary valve insufficiency; E78.5 Hyperlipidemia, unspecified; R29.6 Repeated falls; H91.90 Unspecified hearing loss, unspecified ear; I25.2 Old myocardial infarction; M10.9 Gout, unspecified; K21.9 Gastro-esophageal reflux disease without esophagitis; Z68.32 Body mass index [BMI] 32.0-32.9, adult; R32 Unspecified urinary incontinence; Z79.01 Long term (current) use of anticoagulants; Z78.1 Physical restraint status; Z79.02 Long term (current) use of antithrombotics/antiplatelets; Z79.4 Long term (current) use of insulin; Z79.899 Other long term (current) drug therapy; Z87.891 Personal history of nicotine dependence; W19.XXXA Unspecified fall, initial encounter; Z87.11 Personal history of peptic ulcer disease; Z91.81 History of falling; Z95.5 Presence of coronary angioplasty implant and graft; Z87.19 Personal history of other diseases of the digestive system; Z71.3 Dietary counseling and surveillance; Z88.1 Allergy status to other antibiotic agents; Z88.5 Allergy status to narcotic agent; Z88.0 Allergy status to penicillin; Z88.8 Allergy status to other drugs, medicaments and biological substances; Y71.2 Prosthetic and other implants, materials and accessory cardiovascular devices associated with adverse incidents; Y84.8 Other medical procedures as the cause of abnormal reaction of the patient, or of later complication, without mention of misadventure at the time of the procedure; Z83.49 Family history of other endocrine, nutritional and metabolic diseases; Z83.3 Family history of diabetes mellitus; Z82.49 Family history of ischemic heart disease and other diseases of the circulatory system; Z80.8 Family history of malignant neoplasm of other organs or systems; Z82.61 Family history of arthritis; Z83.2 Family history of diseases of the blood and blood-forming organs and certain disorders involving the immune mechanism; Z82.69 Family history of other diseases of the musculoskeletal system and connective tissue; Z82.0 Family history of epilepsy and other diseases of the nervous system
CPT/HCPCS: 36415; 36556; 36600; 70450; 71045; 71046; 71260; 72125; 74177; 76705; 76937; 77001; 78306; 80048; 80053; 80202; 81001; 82140; 82565; 82607; 82747; 82805; 82945; 83036; 83615; 83735; 83880; 84100; 84157; 84443; 84484; 85025; 85027; 85610; 85652; 85730; 86140; 87040; 87070; 87075; 87077; 87086; 87186; 87205; 87635; 88108; 88305; 89050; 90935; 93005; 93306; 93312; 93320; 93325; 94660; 94760; 96361; 96374; 96375; 96376; 99285

== ENCOUNTER 2020-08-12 10:41 | Inpatient (IN) | payer MEDICARE, OTHER ==
[2020-08-12] MEDS ORDERED: SODIUM CHLORIDE 0.9% 500 ML 500 ML IV STA (11:42)
--- NOTE | 2020-08-12 11:43 | ED ---
General Adult HPI - General Chief complaint: Weakness Stated complaint: Chest Pain/Weakness Time Seen by Provider: 08/12/20 10:43 Source: EMS Mode of arrival: EMS Limitations: no limitations - History of Present Illness Initial comments: Dictation was produced using [employer] dictation software. please excuse any grammatical, word or spelling errors. Chief Complaint: 60-year-old male with past medical history of A. fib, coronary artery disease, heart failure, hypertension presents to the emergency room for lethargy History of Present Illness: 60-year-old male who is transferred reported from [facility] for lethargy. Patient is brought in by EMS. Patient is a poor historian.. Patient states that he feels fatigued. Allegedly patient is feeling fine yesterday. is at bedside. Patient denies any pain complaints. She has not seen him since he's been in [facility]. reports that patient looks pale. Patient takes anticoagulation medications. The ROS documented in this emergency department record has been reviewed and confirmed by me. Those systems with pertinent positive or negative responses have been documented in the HPI. All other systems are other negative and/or noncontributory. PHYSICAL EXAM: General Impression: Alert and oriented x3, arousable with painful stimuli and loud noises, sleepy/lethargic HEENT: Normocephalic atraumatic, extra-ocular movements intact, pupils equal and reactive to light bilaterally, mucous membranes moist, pale conjunctiva Cardiovascular: Heart regular rate and rhythm Chest: no retractions, no tachypnea Abdomen: abdomen soft, non-tender, non-distended, no organomegaly Musculoskeletal: Pulses present and equal in all extremities, no peripheral edema Motor: no focal deficits noted Neurological: CN II-XII grossly intact, no focal motor or sensory deficits noted Skin: Intact with no visualized rashes ED course: 60-year-old male presents emergency department for lethargy generalized weakness. Signs upon arrival shows oxygen saturation of 90% on room air, rest of vital signs within acceptable limits. EKG interpretation: Ventricular rate 70, normal sinus rhythm, NM interval 188, QRS 88, QTC 476. No NM prolongation, no QTC prolongation, no ST or T-wave c hanges noted. EKG compared to 04/10/2020 showing no changes. Overall, this EKG is unremarkable . Laboratory evaluation obtained. No leukocytosis. Hemoglobin stable. Coag panel is negative. Metabolic panel. His be within baseline. This stage is slightly elevated. 4 panel virus PCR shows no flu or RSV or coronavirus's. Computed tomography scan of the brain is unremarkable. When he x-ray shows difficult to include excluded retrocardiac density. Two-view chest x-ray was ordered showing patchy airspace disease. Coag tests could be a false negative. Patient will be treated with Decadron. Patient given antibiotics for concern of perhaps pneumonia. She'll be admitted. Case discussed with Dr. Lima who is willing to accept patients care. Neurology will be consulted along with inf ectious disease and nephrology. - Related Data Home Medications Medication Instructions Recorded Confirmed Calcium Acetate [PhosLo] 667 mg PO TID@0800,1200,1700 08/05/18 08/12/20 Furosemide [Lasix] 80 mg PO BID@0600,1800 04/13/19 08/12/20 Triamcinolone 0.1% Ointment 1 applic TOPICAL BID 04/13/19 08/12/20 [Kenalog] hydrOXYzine pamoate [Vistaril] 50 mg PO QID@00,06,12,18 02/06/20 08/12/20 Gabapentin 300 mg PO HS@2100 02/17/20 08/12/20 Pantoprazole [Protonix] 40 mg PO DAILY@0600 02/17/20 08/12/20 Acetaminophen Tab [Tylenol] 650 mg PO Q6H PRN 08/12/20 08/12/20 Ammonium Lactate Lotion 1 applic TOPICAL BID 08/12/20 08/12/20 [Lac-Hydrin 12% Lotion] Aspirin EC [Ecotrin Low Dose] 81 mg PO DAILY@1700 08/12/20 08/12/20 Baclofen [Lioresal] 10 mg PO Q8H PRN 08/12/20 08/12/20 Cholestyramine (with Sugar) 4 gm PO BID@0800,1700 08/12/20 08/12/20 [Cholestyramine Packet] Ciclopirox Olamine [Loprox 0.77% 1 applic TOPICAL BID 08/12/20 08/12/20 cream] Epoetin Luis [Epogen] 4,000 unit SQ TUTHSA 08/12/20 08/12/20 Ferrous Sulfate [Feosol] 325 mg PO BID@0800,1700 08/12/20 08/12/20 HYDROcodone/APAP 5-325MG [[place] 1 tab PO Q6HR PRN 08/12/20 08/12/20 5-325] INSULIN ASPART (NovoLOG) [NovoLOG See Protocol SQ ACHS 08/12/20 08/12/20 (formulary)] Insulin Detemir (Levemir) [Levemir] 10 unit SQ HS@209908/12/20 08/12/20 Magnesium Hydroxide [Milk of 7,200 mg PO DAILY PRN 08/12/20 08/12/20 Magnesia Concentrate] Melatonin 1 mg PO HS 08/12/20 08/12/20 Menthol [Biofreeze] 1 applic TOPICAL TID 08/12/20 08/12/20 Menthol-Zinc Oxide Oint 1 applic TOPICAL BID 08/12/20 08/12/20 [Calmoseptine Oint] Midodrine HCl [ProAmatine] 10 mg PO DAILY@0800 08/12/20 08/12/20 Multivitamins, Thera [Multivitamin 1 tab PO DAILY@1700 08/12/20 08/12/20 (formulary)] Na Phos,M-B/Na Phos,Di-Ba [Fleet 133 ml RECTAL DAILY PRN 08/12/20 08/12/20 Adult] Sennosides/Docusate Sodium 1 tab PO Q12H PRN 08/12/20 08/12/20 [Senna-S 8.6-50 mg Tablet] bisacodyL [Dulcolax] 10 mg RECTAL DAILY PRN 08/12/20 08/12/20 hydrALAZINE HCL 10 mg PO BID@0800,2100 08/12/20 08/12/20 Allergies Allergy/AdvReac Type Severity Reaction Status Date / Time bumetanide [From Bumex] Allergy Hallucinati Verified 08/12/20 12:19 ons codeine Allergy Unknown Verified 08/12/20 12:19 Penicillins Allergy Anaphylaxis Verified 08/12/20 12:19 sulfadiazine Allergy Unknown Verified 08/12/20 12:19 morphine AdvReac Confusion Verified 08/12/20 12:19 rivaroxaban [From Xarelto] AdvReac Bloody Nose Verified 08/12/20 12:19 spironolactone AdvReac Hallucinati Verified 08/12/20 12:19 ons All antibiotics except Keflex Allergy Unknown Uncoded 08/12/20 10:45 Childhood Review of Systems ROS Statement: Those systems with pertinent positive or pertinent negative responses have been documented in the HPI. ROS Other: All systems not noted in ROS Statement are negative. Past Medical History Past Medical History: Atrial Fibrillation, Coronary Artery Disease (CAD), Heart Failure, Diabetes Mellitus, Dialysis, Eye Disorder, GERD/Reflux, Hearing Disorder / Deafness, Hyperlipidemia, Hypertension, Myocardial Infarction (DE), Renal Disease, Syncope Additional Past Medical History / Comment(s): IDDM type II, neuropathy bilateral hands/feet, ESRD with hemodialysis on //, He skipped this wednesday and wednesday the 04/08 and 04/10 due to illness, chronic anemia, LVH, Afib with RVR, MIs, chronic CHF, R eye blindness, L eye legally blind, RLS, pt unsure if he has gout, vertigo at times, balance issues at times, stomach ulcer at age 17yrs, sinus problems, very [place] R ear. Last Myocardial Infarction Date:: 08/09/18 History of Any Multi-Drug Resistant Organisms: MRSA Date of last positivie culture/infection: 04/28/20 MDRO Source:: MRSA BLOOD AND DIALYSIS CATH TIP Past Surgical History: Heart Catheterization, Heart Catheterization With Stent Additional Past Surgical History / Comment(s): TTT, PD catheter placement/since removed, 2016 L arm fistula, fistula gram with balloon for stenosis, L eye vitrectomy, thyroid needle aspiration-negative, L leg cyst, colonoscopy with benign polypectomy. port placed in chest Right side. Past Anesthesia/Blood Transfusion Reactions: Postoperative Nausea & Vomiting (PONV) Date of Last Stent Placement:: 03-03-18 Past Psychological History: Anxiety, Depression Smoking Status: Former smoker Past Alcohol Use History: None Reported Past Drug Use History: None Reported - Past Family History Father Family Medical History: Cancer, Coronary Artery Disease (CAD), Hyperlipidemia Additional Family Medical History / Comment(s): Lung/BRAIN CANCER Mother Family Medical History: Diabetes Mellitus, Deep Vein Thrombosis (DVT), Osteoarthritis (OA) Additional Family Medical History / Comment(s): DJD Sister(s) Family Medical History: Diabetes Mellitus Additional Family Medical History / Comment(s): Patient has one sister with diabetes mellitus type 2, SLE, MS. Brother(s) Family Medical History: Diabetes Mellitus Additional Family Medical History / Comment(s): Patient has 4 kids no major medical problems. Daughter(s) Family Medical History: No Reported History Additional Family Medical History / Comment(s): Patient has 2 daughters no major medical problems. Son(s) Family Medical History: No Reported History Additional Family Medical History / Comment(s): Patient has 2 sons no major medical problems. General Exam Limitations: no limitations Course Vital Signs 08/12/20 08/12/20 08/12/20 10:45 12:06 13:27 Temperature 97.4 F L Pulse Rate 79 77 74 Respiratory 16 16 16 Rate Blood Pressure 173/100 174/100 169/91 O2 Sat by Pulse 92 L 99 92 L Oximetry Medical Decision Making - Lab Data Result diagrams: 08/12/20 11:00 08/12/20 11:00 Lab Results 08/12/20 08/12/20 08/12/20 Range/Units 11:00 11:00 11:00 WBC 8.5 (3.8-10.6) k/uL RBC 2.98 L (4.30-5.90) m/uL Hgb 8.9 L (13.0-17.5) gm/dL Hct 27.3 L (39.0-53.0) % MCV 91.7 (80.0-100.0) fL MCH 29.9 (25.0-35.0) pg MCHC 32.6 (31.0-37.0) g/dL RDW 15.1 (11.5-15.5) % Plt Count 173 (150-450) k/uL MPV 7.9 Neutrophils % 79 % Lymphocytes % 7 % Monocytes % 5 % Eosinophils % 8 % Basophils % 1 % Neutrophils # 6.7 (1.3-7.7) k/uL Lymphocytes # 0.6 L (1.0-4.8) k/uL Monocytes # 0.5 (0-1.0) k/uL Eosinophils # 0.7 (0-0.7) k/uL Basophils # 0.1 (0-0.2) k/uL PT 10.6 (9.0-12.0) sec INR 1.0 (<1.2) APTT 19.5 L (22.0-30.0) sec Sodium 138 (137-145) mmol/L Potassium 4.5 (3.5-5.1) mmol/L Chloride 101 (98-107) mmol/L Carbon Dioxide 22 (22-30) mmol/L Anion Gap 15 mmol/L BUN 64 H (9-20) mg/dL Creatinine 4.12 H (0.66-1.25) mg/dL Est GFR (CKD-EPI)AfAm 17 (>60 ml/min/1.73 sqM) Est GFR (CKD-EPI)NonAf 15 (>60 ml/min/1.73 sqM) Glucose 237 H (74-99) mg/dL Plasma Lactic Acid Ramirez (0.7-2.0) mmol/L Calcium 9.1 (8.4-10.2) mg/dL Ionized Calcium Nicole 4.5 (4.5-5.3) mg/dL Magnesium 1.9 (1.6-2.3) mg/dL Total Bilirubin 0.5 (0.2-1.3) mg/dL AST 31 (17-59) U/L ALT 28 (4-49) U/L Alkaline Phosphatase 192 H (38-126) U/L Ammonia (<30) umol/L Troponin I (0.000-0.034) ng/mL C-Reactive Protein 0.8 (<1.0) mg/dL Total Protein 7.0 (6.3-8.2) g/dL Albumin 3.8 (3.5-5.0) g/dL TSH 5.340 H (0.465-4.680) mIU/L Influenza Type A (PCR) (Not Detectd) Influenza Type B (PCR) (Not Detectd) RSV (PCR) (Not Detectd) SARS-CoV-2 (PCR) (Not Detectd) Blood Type Blood Type Recheck Bld Type Recheck Status Antibody Screen Spec Expiration Date 08/12/20 08/12/20 08/12/20 Range/Units 11:00 11:00 11:00 WBC (3.8-10.6) k/uL RBC (4.30-5.90) m/uL Hgb (13.0-17.5) gm/dL Hct (39.0-53.0) % MCV (80.0-100.0) fL MCH (25.0-35.0) pg MCHC (31.0-37.0) g/dL RDW (11.5-15.5) % Plt Count (150-450) k/uL MPV Neutrophils % % Lymphocytes % % Monocytes % % Eosinophils % % Basophils % % Neutrophils # (1.3-7.7) k/uL Lymphocytes # (1.0-4.8) k/uL Monocytes # (0-1.0) k/uL Eosinophils # (0-0.7) k/uL Basophils # (0-0.2) k/uL PT (9.0-12.0) sec INR (<1.2) APTT (22.0-30.0) sec Sodium (137-145) mmol/L Potassium (3.5-5.1) mmol/L Chloride (98-107) mmol/L Carbon Dioxide (22-30) mmol/L Anion Gap mmol/L BUN (9-20) mg/dL Creatinine (0.66-1.25) mg/dL Est GFR (CKD-EPI)AfAm (>60 ml/min/1.73 sqM) Est GFR (CKD-EPI)NonAf (>60 ml/min/1.73 sqM) Glucose (74-99) mg/dL Plasma Lactic Acid Ramirez 1.8 (0.7-2.0) mmol/L Calcium (8.4-10.2) mg/dL Ionized Calcium Nicole (4.5-5.3) mg/dL Magnesium (1.6-2.3) mg/dL Total Bilirubin (0.2-1.3) mg/dL AST (17-59) U/L ALT (4-49) U/L Alkaline Phosphatase (38-126) U/L Ammonia <9 (<30) umol/L Troponin I 0.021 (0.000-0.034) ng/mL C-Reactive Protein (<1.0) mg/dL Total Protein (6.3-8.2) g/dL Albumin (3.5-5.0) g/dL TSH (0.465-4.680) mIU/L Influenza Type A (PCR) (Not Detectd) Influenza Type B (PCR) (Not Detectd) RSV (PCR) (Not Detectd) SARS-CoV-2 (PCR) (Not Detectd) Blood Type O Positive Blood Type Recheck O Pos Bld Type Recheck Status No Antibody Screen NEGATIVE Spec Expiration Date 08/15/2020 - 229908/12/20 Range/Units 11:48 WBC (3.8-10.6) k/uL RBC (4.30-5.90) m/uL Hgb (13.0-17.5) gm/dL Hct (39.0-53.0) % MCV (80.0-100.0) fL MCH (25.0-35.0) pg MCHC (31.0-37.0) g/dL RDW (11.5-15.5) % Plt Count (150-450) k/uL MPV Neutrophils % % Lymphocytes % % Monocytes % % Eosinophils % % Basophils % % Neutrophils # (1.3-7.7) k/uL Lymphocytes # (1.0-4.8) k/uL Monocytes # (0-1.0) k/uL Eosinophils # (0-0.7) k/uL Basophils # (0-0.2) k/uL PT (9.0-12.0) sec INR (<1.2) APTT (22.0-30.0) sec Sodium (137-145) mmol/L Potassium (3.5-5.1) mmol/L Chloride (98-107) mmol/L Carbon Dioxide (22-30) mmol/L Anion Gap mmol/L BUN (9-20) mg/dL Creatinine (0.66-1.25) mg/dL Est GFR (CKD-EPI)AfAm (>60 ml/min/1.73 sqM) Est GFR (CKD-EPI)NonAf (>60 ml/min/1.73 sqM) Glucose (74-99) mg/dL Plasma Lactic Acid Ramirez (0.7-2.0) mmol/L Calcium (8.4-10.2) mg/dL Ionized Calcium Nicole (4.5-5.3) mg/dL Magnesium (1.6-2.3) mg/dL Total Bilirubin (0.2-1.3) mg/dL AST (17-59) U/L ALT (4-49) U/L Alkaline Phosphatase (38-126) U/L Ammonia (<30) umol/L Troponin I (0.000-0.034) ng/mL C-Reactive Protein (<1.0) mg/dL Total Protein (6.3-8.2) g/dL Albumin (3.5-5.0) g/dL TSH (0.465-4.680) mIU/L Influenza Type A (PCR) Not Detected (Not Detectd) Influenza Type B (PCR) Not Detected (Not Detectd) RSV (PCR) Not Detected (Not Detectd) SARS-CoV-2 (PCR) Not Detected (Not Detectd) Blood Type Blood Type Recheck Bld Type Recheck Status Antibody Screen Spec Expiration Date Disposition Clinical Impression: Altered mental status Disposition: ADMITTED IP TO THIS HOSP Condition: Fair Referrals: Ten Mckeon DO [Primary Care Provider] - 1-2 days
[2020-08-12 11:50] LABS: Ionized Calcium 4.5 mg/dL (4.5-5.3)
[2020-08-12 11:59] LABS: Lactic Acid, Venous 1.8 mmol/L (0.7-2.0)
[2020-08-12 12:03] LABS: Albumin 3.8 g/dL (3.5-5.0); C Reactive Protein 0.8 mg/dL (<1.0); Calcium 9.1 mg/dL (8.4-10.2); Total Bilirubin 0.5 mg/dL (0.2-1.3)
[2020-08-12 12:04] LABS: Basophils # (A) 0.1 k/uL (0-0.2); Basophils % (A) 1 %; Eosinophils # (A) 0.7 k/uL (0-0.7); Eosinophils % (A) 8 %; HCT 27.3 % (39.0-53.0); HGB 8.9 gm/dL (13.0-17.5); Lymphocytes # (A) 0.6 k/uL (1.0-4.8); Lymphocytes % (A) 7 %; MCH 29.9 pg (25.0-35.0); MCHC 32.6 g/dL (31.0-37.0); MCV 91.7 fL (80.0-100.0); Magnesium 1.9 mg/dL (1.6-2.3); Mean Platelet Volume 7.9; Monocytes # (A) 0.5 k/uL (0-1.0); Monocytes % (A) 5 %; Neutrophils # (A) 6.7 k/uL (1.3-7.7); Neutrophils % (A) 79 %; Platelet Count 173 k/uL (150-450); Potassium 4.5 mmol/L (3.5-5.1); RBC 2.98 m/uL (4.30-5.90); RDW 15.1 % (11.5-15.5); WBC 8.5 k/uL (3.8-10.6)
[2020-08-12 12:09] LABS: Prothrombin Time 10.6 sec (9.0-12.0)
[2020-08-12 12:11] LABS: Partial Thromboplastin Time 19.5 sec (22.0-30.0)
--- NOTE | 2020-08-12 12:42 | CT ---
EXAMINATION TYPE: CT brain wo con DATE OF EXAM: 08/12/2020 COMPARISON: 04/10/2020 HISTORY: 60-year-old male confusion, altered mental status TECHNIQUE: Examination was done in axial plane without intravenous contrast. Coronal and sagittal r econstructions performed. CT DLP: 1111.4 mGycm Automated exposure control for dose reduction was used. FINDINGS: There is no evidence of acute intracranial hemorrhage, acute ischemic changes, mass, mass-effect, or extra-axial fluid collection. There is no effacement of cerebral sulci or basal subarachnoid cister ns. There is no hydrocephalus. There is no midline shift. Pineda-white matter distinction is preserv ed. Mild age-related supratentorial volume loss. Paranasal sinuses and mastoid air cells are well pneumatized. Visualized orbits and globes are intact . Prominent arterial calcifications along the temples and bilateral convexities. IMPRESSION: No acute intracranial abnormality seen. Prominent extracranial arterial calcifications. Query underly ing diabetes or chronic kidney disease.
--- NOTE | 2020-08-12 12:51 | XR ---
EXAMINATION TYPE: XR chest 1V portable DATE OF EXAM: 08/12/2020 COMPARISON: Chest x-ray 04/30/2020 HISTORY: Altered mental status, chest pain TECHNIQUE: Single frontal view of the chest is obtained. FINDINGS: Patient is rotated. Heart is enlarged. There is some interval improved visualization of le ft hemidiaphragm. Central vascularity appears increased. No evident pneumothorax. No evident effusion . Question some prominence interstitium. Technique is apical lordotic and there are overlying leads. Right hemidiaphragm is elevated. Arthropathy noted in the right glenohumeral joint. IMPRESSION: Difficult to exclude retrocardiac density. There may be component of pulmonary venous hy pertension and interstitial edema, consider follow-up PA and lateral chest x-ray when stable.
--- NOTE | 2020-08-12 13:16 | XR ---
EXAMINATION TYPE: XR chest 2V DATE OF EXAM: 08/12/2020 COMPARISON: Earlier same date HISTORY: Retrocardiac density questioned TECHNIQUE: Frontal and lateral views of the chest are obtained. FINDINGS: There is patchy airspace disease seen bilaterally, most marked on the lateral view. Enlargement of the cardiac silhouette appears similar to the prior exam. IMPRESSION: There is patchy airspace disease seen bilaterally, most marked on the lateral view. Enlargement of the cardiac silhouette appears similar to the prior exam.
[2020-08-12] MEDS ORDERED: CEFEPIME 2 GM in SODIUM CHLORIDE 0.9% 100 ML IVPB STA (13:47)
[2020-08-12] MEDS ORDERED: DEXAMETHASONE SOD PHOSPHATE 10 MG/ML 1 ML VIAL IV STA (13:49)
[2020-08-12] MEDS ORDERED: NALOXONE 0.4 MG/ML 1 ML VIAL IV PRN (13:53)
[2020-08-12] MEDS ORDERED: VANCOMYCIN IV PER PHARMACY 1 EACH MISC MISCELLANE PRN (13:54)
[2020-08-12] MEDS ORDERED: VANCOMYCIN 1,750 MG in SODIUM CHLORIDE 0.9% 500 ML 500 ML IVPB STA (13:59)
[2020-08-12 14:00] LABS: T4, Free (Free Thyroxine) 1.53 ng/dL (0.78-2.19)
[2020-08-12] MEDS: hydrALAZINE HCL 10 MG TAB PO SCH ×2 (18:32→20:12)
[2020-08-12 20:28] LABS: Glucose,Whole Blood 242 mg/dL (75-99)
[2020-08-12] MEDS: IPRATROPIUM-ALBUTEROL 3 ML NEB INHALATION PRN (20:33)
[2020-08-12 20:42] LABS: Amphetamine Screen,Urine Not Detected (NotDetected); Barbiturate Screen,Urine Not Detected (NotDetected); Benzodiazepines Screen,Urine Not Detected (NotDetected); Cocaine Screen,Urine Not Detected (NotDetected); Methadone Screen, Urine Not Detected (NotDetected); Opiate Screen,Urine Detected (NotDetected); Oxycodone Screen, Urine Not Detected (NotDetected); Phencyclidine Screen,Urine Not Detected (NotDetected); Tricyclic Antidepressant,Urine Not Detected (NotDetected); Urn Cannabinoid Scrn Not Detected (NotDetected)
[2020-08-12] MEDS: SODIUM CHLORIDE 0.9% 1,000 ML IV SCH (20:58)
[2020-08-12] MEDS: CEFEPIME 1 GM in SODIUM CHLORIDE 0.9% 50 ML IVPB SCH (20:59)
[2020-08-12] MEDS: METOPROLOL TARTRATE 5 MG/5 ML VIAL IVP PRN (21:00)
[2020-08-12] MEDS ORDERED: hydrALAZINE HCL 10 MG TAB PO STA (21:01)
[2020-08-12] MEDS: MELATONIN 1 MG TAB PO SCH (21:06)
[2020-08-12] MEDS: INSULIN DETEMIR (LEVEMIR) 100 UNIT/ML SYR SQ SCH (21:09)
[2020-08-13] MEDS: IPRATROPIUM-ALBUTEROL 3 ML NEB INHALATION PRN (03:01)
[2020-08-13] MEDS: METOPROLOL TARTRATE 5 MG/5 ML VIAL IVP PRN ×2 (04:08→20:14)
[2020-08-13] MEDS: PANTOPRAZOLE 40 MG TABLET PO SCH (06:12)
[2020-08-13] MEDS: FUROSEMIDE 80 MG TAB PO SCH ×2 (06:12→17:43)
[2020-08-13 06:15] LABS: Glucose,Whole Blood 244 mg/dL (75-99)
[2020-08-13 07:56] LABS: Glucose,Whole Blood 220 mg/dL (75-99)
[2020-08-13] MEDS ORDERED: ONDANSETRON 4 MG/2 ML VIAL IVP PRN (10:05)
--- NOTE | 2020-08-13 10:07 | P.NPCON ---
History of Present Illness - Reason for Consult end stage renal disease - History of Present Illness Reason for consultation: End-stage renal disease History of present illness: Patient is a 60-year-old male seen in renal consultation for end-stage renal disease. Patient is maintained on hemodialysis on a Wednesday schedule via left upper extremity AV fistula. Patient presented from [facility] care facility with generalized weakness and lethargy. He is quite confused and tired at this time. Blood pressure is high. Brain CT revealed no acute intracranial abnormalities. Chest x-ray revealed patchy airspace disease bilaterally. He is receiving IV antibiotics. He tested negative for influenza as well as coronavirus. He's tolerating dialysis well. Does have edema. Patient has a history of coronary artery disease with stenting in the past. He also has long-standing history of diabetes mellitus. Vital signs are stable. Blood pressure high. General: The patient appeared well nourished and normally developed. HEENT: Head exam is unremarkable. LUNGS: Breath sounds decreased. HEART: Rate and Rhythm are regular. ABDOMEN: Soft, no distention. EXTREMITITES: 1+ edema. Past Medical History Past Medical History: Atrial Fibrillation, Coronary Artery Disease (CAD), Heart Failure, Diabetes Mellitus, Dialysis, Eye Disorder, GERD/Reflux, Hearing Disorder / Deafness, Hyperlipidemia, Hypertension, Myocardial Infarction ([place]), Renal Disease, Syncope Additional Past Medical History / Comment(s): IDDM type II, neuropathy bilateral hands/feet, ESRD with hemodialysis on //, chronic anemia, LVH, Afib with RVR, MIs, chronic CHF, R eye blindness, L eye legally blind, RLS, pt unsure if he has gout, vertigo at times, balance issues at times, stomach ulcer at age 17yrs, sinus problems, very [place] R ear. Last Myocardial Infarction Date:: 08/09/18 History of Any Multi-Drug Resistant Organisms: MRSA Date of last positivie culture/infection: 04/28/20 MDRO Source:: MRSA BLOOD AND DIALYSIS CATH TIP Past Surgical History: Heart Catheterization, Heart Catheterization With Stent Additional Past Surgical History / Comment(s): TTT, PD catheter placement/since removed, 2016 L arm fistula, fistula gram with balloon for stenosis, L eye vitrectomy, thyroid needle aspiration-negative, L leg cyst, colonoscopy with benign polypectomy. port placed in chest Right side. Past Anesthesia/Blood Transfusion Reactions: Postoperative Nausea & Vomiting (PONV) Date of Last Stent Placement:: 03-03-18 Past Psychological History: Anxiety, Depression Additional Psychological History / Comment(s): Pt resides with his spouse, AND SON. He is legally blind L eye and blind in R eye. He is very [place] in R ear. He has a cane and walker which he uses prn. His spouse and son drive. Pt uses glasses and a magnifier to read. He has depression which he states is constantly present but not increased. He denies thoughts/plans of suicide. Smoking Status: Former smoker Past Alcohol Use History: None Reported Additional Past Alcohol Use History / Comment(s): Pt started smoking in 1972 and quit in 1995. Past Drug Use History: None Reported - Past Family History Father Family Medical History: Cancer, Coronary Artery Disease (CAD), Hyperlipidemia Additional Family Medical History / Comment(s): Lung/BRAIN CANCER Mother Family Medical History: Diabetes Mellitus, Deep Vein Thrombosis (DVT), Osteoarthritis (OA) Additional Family Medical History / Comment(s): DJD Sister(s) Family Medical History: Diabetes Mellitus Additional Family Medical History / Comment(s): Patient has one sister with diabetes mellitus type 2, SLE, MS. Brother(s) Family Medical History: Diabetes Mellitus Additional Family Medical History / Comment(s): Patient has 4 kids no major medical problems. Daughter(s) Family Medical History: No Reported History Additional Family Medical History / Comment(s): Patient has 2 daughters no major medical problems. Son(s) Family Medical History: No Reported History Additional Family Medical History / Comment(s): Patient has 2 sons no major medical problems. Medications and Allergies Home Medications Medication Instructions Recorded Confirmed Type Calcium Acetate [PhosLo] 667 mg PO TID@0800,1200,1700 08/05/18 08/12/20 History Furosemide [Lasix] 80 mg PO BID@0600,1800 04/13/19 08/12/20 History Triamcinolone 0.1% Ointment 1 applic TOPICAL BID 04/13/19 08/12/20 History [Kenalog] hydrOXYzine pamoate [Vistaril] 50 mg PO QID@00,06,12,18 02/06/20 08/12/20 History Gabapentin 300 mg PO HS@2100 02/17/2021/21 History Pantoprazole [Protonix] 40 mg PO DAILY@0600 02/17/20 08/12/20 History Acetaminophen Tab [Tylenol] 650 mg PO Q6H PRN 08/12/20 08/12/20 History Ammonium Lactate Lotion 1 applic TOPICAL BID 08/12/20 08/12/20 History [Lac-Hydrin 12% Lotion] Aspirin EC [Ecotrin Low Dose] 81 mg PO DAILY@1700 08/12/20 08/12/20 History Baclofen [Lioresal] 10 mg PO Q8H PRN 08/12/20 08/12/20 History Cholestyramine (with Sugar) 4 gm PO BID@0800,1700 08/12/20 08/12/20 History [Cholestyramine Packet] Ciclopirox Olamine [Loprox 0.77% 1 applic TOPICAL BID 08/12/20 08/12/20 History cream] Epoetin Luis [Epogen] 4,000 unit SQ TUTA 08/12/20 08/12/20 History Ferrous Sulfate [Feosol] 325 mg PO BID@0800,1700 08/12/20 08/12/20 History HYDROcodone/APAP 5-325MG [[place] 1 tab PO Q6HR PRN 08/12/20 08/12/20 History 5-325] INSULIN ASPART (NovoLOG) [NovoLOG See Protocol SQ ACHS 08/12/20 08/12/20 History (formulary)] Insulin Detemir (Levemir) [Levemir] 10 unit SQ HS@209908/12/20 08/12/20 History Magnesium Hydroxide [Milk of 7,200 mg PO DAILY PRN 08/12/20 08/12/20 History Magnesia Concentrate] Melatonin 1 mg PO HS 08/12/20 08/12/20 History Menthol [Biofreeze] 1 applic TOPICAL TID 08/12/20 08/12/20 History Menthol-Zinc Oxide Oint 1 applic TOPICAL BID 08/12/20 08/12/20 History [Calmoseptine Oint] Midodrine HCl [ProAmatine] 10 mg PO DAILY@0800 08/12/20 08/12/20 History Multivitamins, Thera [Multivitamin 1 tab PO DAILY@1700 08/12/20 08/12/20 History (formulary)] Na Phos,M-B/Na Phos,Di-Ba [Fleet 133 ml RECTAL DAILY PRN 08/12/20 08/12/20 History Adult] Sennosides/Docusate Sodium 1 tab PO Q12H PRN 08/12/20 08/12/20 History [Senna-S 8.6-50 mg Tablet] bisacodyL [Dulcolax] 10 mg RECTAL DAILY PRN 08/12/20 08/12/20 History hydrALAZINE HCL 10 mg PO BID@0800,2100 08/12/20 08/12/20 History Allergies Allergy/AdvReac Type Severity Reaction Status Date / Time bumetanide [From Bumex] Allergy Hallucinati Verified 08/12/20 12:19 ons codeine Allergy Unknown Verified 08/12/20 12:19 Penicillins Allergy Anaphylaxis Verified 08/12/20 12:19 sulfadiazine Allergy Unknown Verified 08/12/20 12:19 morphine AdvReac Confusion Verified 08/12/20 12:19 rivaroxaban [From Xarelto] AdvReac Bloody Nose Verified 08/12/20 12:19 spironolactone AdvReac Hallucinati Verified 08/12/20 12:19 ons All antibiotics except Keflex Allergy Unknown Uncoded 08/12/20 10:45 Childhood Physical Exam Vitals: Vital Signs Temp Pulse Pulse Resp BP BP Pulse Ox 08/13/20 04:00 76 18 211/98 100 08/13/20 03:07 84 08/13/20 03:01 78 08/12/20 23:35 76 18 177/85 94 L 08/12/20 22:06 192/76 08/12/20 21:00 18 210/104 100 08/12/20 20:50 88 08/12/20 20:38 100 08/12/20 20:34 88 08/12/20 20:00 97.9 F 95 18 196/96 97 08/12/20 17:51 98.3 F 82 20 217/111 100 08/12/20 17:12 77 16 161/107 99 08/12/20 13:27 74 16 169/91 92 L 08/12/20 12:06 77 16 174/100 99 08/12/20 10:45 97.4 F L 79 16 173/100 92 L Intake and Output 08/12/20 08/13/20 08/13/20 22:59 06:59 14:59 Intake Total 240 Output Total 520 0 Balance -280 0 Intake: Oral 240 Output: Urine 200 0 Stool 320 Other: Voiding Method Urinal Urinal # Voids 1 0 # Bowel Movements 1 Weight 97.522 kg Results - Lab Results Most recent lab results Calcium 9.1 mg/dL (8.4-10.2) 08/12/20 11:00 Magnesium 1.9 mg/dL (1.6-2.3) 08/12/20 11:00 08/12/20 11:00 08/12/20 11:00 Assessment and Plan Plan: Assessment: 1. End-stage renal disease maintained on hemodialysis on Wednesday schedule left upper extremity AV fistula. 2. Anemia of chronic kidney disease. Rule out iron deficiency. 3. Diabetes mellitus. 4. Generalized debility. 5. Hypertension with chronic kidney disease. 6. Possible pneumonia maintained on antibiotics. Infectious disease consulted. 7. Chronic kidney disease mineral bone disease maintained on PhosLo. 8. Volume overload. Plan: Currently seen while undergoing hemodialysis. Will try for 2-3 L ultrafiltration today. Check iron studies. Add Aranesp. Increase dose of hydralazine. I will also add IV hydralazine 10 mg every 4-6 hours as needed for systolic blood pressure greater than 160. Thank you for the consultation. I will continue to follow the patient with you during his hospital stay.
[2020-08-13] MEDS: CALCIUM ACETATE 667 MG TAB PO SCH ×3 (10:17→17:43)
[2020-08-13] MEDS: FERROUS SULFATE 325 MG TAB PO SCH ×2 (10:17→17:43)
[2020-08-13] MEDS: ACETAMINOPHEN TAB 325 MG TAB PO PRN ×2 (11:14→17:49)
[2020-08-13] MEDS ORDERED: VANCOMYCIN 1,500 MG in SODIUM CHLORIDE 0.9% 250 ML IVPB ONE (12:00)
[2020-08-13] MEDS ORDERED: DARBEPOETIN ALFA 40 MCG/0.4 ML SYRINGE SQ SCH (12:00)
[2020-08-13 12:01] LABS: Glucose,Whole Blood 160 mg/dL (75-99)
--- NOTE | 2020-08-13 12:37 | P.HPIM ---
History of Present Illness H&P Date: 08/13/20 HISTORY AND PHYSICAL AND DISCHARGE SUMMARY: HISTORY OF PRESENT ILLNESS This is a 60-year-old male patient of Dr. 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 Patient was last hospitalized in April which time he was treated for sepsis and MRSA bacteremia of unclear etiology with metabolic encephalopathy vasovagal episode requiring brief CPR and patient was transferred to [facility]. According to the patient's , patient had MRSA sores in the lumbar spine and also some type of cyst cervical fracture and parasitic infection. Patient was discharged to [facility] for subacute rehab and was transferred from there yesterday due to change in mental status and lethargy, increasing fatigue and neck pain. EKG was in normal sinus rhythm with no acute ST changes. He was afebrile, heart rate 79, blood pressure 173/100, pulse ox 92%. WBC 8.5, hemoglobin 8.9, platelet count 173. Letter lites were normal. BUN 64 creatinine 4.12 and blood sugar 237. Alkaline phosphatase 192. TSH 5.340. Ammonia level less than 9. Lactic acid 1.8. Troponin 0.021. Influenza, RSV, SARS Covid PCR not detected. Chest x-ray reveals old patchy airspace disease bilaterally. Enlargement of cardiac LAD appears similar to prior exam. CAT scan of the brain revealed no acute intracranial abnormality. Patient was seen by nephrology and started on hemodialysis this morning. Case was discussed with neurology and also with the patient's . Decision was made to transfer patient to [facility] for continuity of care. Patient will be transferred today once arrangements are completed. REVIEW OF SYSTEMS Constitutional: No fever, no chills, no night sweats. No weight change. Reported weakness, fatigue or lethargy. No daytime sleepiness. EENT: No headache. No blurred vision or double vision, no loss of vision. No loss of Hearing, no ringing in the ears, no dizziness. No nasal drainage or congestion. No epistaxis. No sore throat. Lungs: No shortness of breath, cough, no sputum production. No wheezing. Cardiovascular: No chest pain, no lower extremity edema. No palpitations. No paroxysmal nocturnal dyspnea. No orthopnea. No lightheadedness or dizziness. No syncopal episodes. Abdominal: No abdominal pain. No nausea, vomiting. No diarrhea. No constipation. No bloody or tarry stools.. No loss of appetite. Genitourinary: No dysuria, increased frequency, urgency. No urinary retention. Musculoskeletal: No myalgias. Noted muscle weakness, no gait dysfunction, no frequent falls. No back pain. Reports neck pain. Integumentary: No wounds, no lesions. No rash or pruritus. No unusual bruising. No change in hair or nails. Neurologic: No aphasia. No facial droop. Noted change in mentation. No head injury. No headache. No paralysis. No paresthesia. Psychiatric: No depression. No anxiety. No mood swings. Endocrine: Noted abnormal blood sugars. No weight change. SOCIAL HISTORY Patient was a smoker for 23 years and quit in 1995. No alcohol use, illicit drug use. He lives at home with his and has been in rehab at [facility]. FAMILY HISTORY Father at age 72 from brain cancer also had history of coronary artery disease. Mother is 83-year-old with history of diabetes type 2 and osteoarthritis. Patient has one sister with diabetes, SLE and MS. Patient's 1 brother with diabetes and one with no major medical problems. Patient has 2 daughters with no major medical problems and 2 sons with no major medical problems.. PHYSICAL EXAMINATION Gen: This is a 60-year-old male patient resting in bed. He is currently receiving hemodialysis. He appears to be in no acute distress. HEENT: Head is atraumatic, normocephalic. Pupils equal, round. Sclerae is anicteric. NECK: Supple. No JVD. No lymphadenopathy. No thyromegaly. LUNGS: Clear to auscultation. No wheezes or rhonchi. No intercostal retractions. HEART: Regular rate and rhythm. 2/6 systolic murmur. ABDOMEN: Soft. Bowel sounds are present. No masses. No tenderness. EXTREMITIES: No pedal edema. No calf tenderness. NEUROLOGICAL: Patient is awake, oriented to person and place, able to follow simple commands only. Cranial nerves 2 through 12 are grossly intact. ASSESSMENT AND PLAN 1. Metabolic encephalopathy of unclear etiology. Continue cefepime 1 g every 12 hours and vancomycin, pharmacy dosing, consult in place with neurology and infectious disease. Hold baclofen, gabapentin, [place]. 2. Neck pain with recent treatment for cervical discitis at [facility]. Reports will be obtained from [facility]. 3. Recent treatment for MRSA bacteremia which patient's relates is a source of lumbar spine and also a parasitic infection in the neck, questionable discitis. Reports from [facility] will be obtained. 4. End-stage renal disease on hemodialysis. Consult with nephrology appr eciated. Continue PhosLo 667 mg 3 times daily, Aranesp 40 g subcu every 7 days, hemodialysis today. 5. Degenerative disc disease and spinal stenosis. 6. History of coronary artery disease with previous PTCA to LAD and circumflex. 7. Paroxysmal atrial fibrillation. Patient is off eliquis, amiodarone and metoprolol. 8. Ischemic cardiomyopathy. 9. Diabetes mellitus type 2, insulin requiring. Continue Levemir 5 units at bedtime, add NovoLog scale before meals and at bedtime, 10. Diabetic neuropathy. Hold gabapentin. 11. Hypertension. Continue hydralazine 50 mg 3 times daily. 12. Anemia of chronic disease. Continue ferrous sulfate 325 mg twice daily, Aranesp 40 g subcu every 7 days. 13. GI prophylaxis. Continue Protonix. 14. DVT prophylaxis. Heparin subcu. Patient will be admitted to the hospital for a minimum of 2 night stay. DISCHARGE PLAN Return to [facility]. Impression and plan of care have been directed as dictated by the signing physician. Katelyn Wesley nurse practitioner acting as scribe for signing physician. Past Medical History Past Medical History: Atrial Fibrillation, Coronary Artery Disease (CAD), Heart Failure, Diabetes Mellitus, Dialysis, Eye Disorder, GERD/Reflux, Hearing Disorder / Deafness, Hyperlipidemia, Hypertension, Myocardial Infarction ([place]), Renal Disease, Syncope Additional Past Medical History / Comment(s): IDDM type II, neuropathy bilateral hands/feet, ESRD with hemodialysis on M/W/F, chronic anemia, LVH, Afib with RVR, MIs, chronic CHF, R eye blindness, L eye legally blind, RLS, pt unsure if he has gout, vertigo at times, balance issues at times, stomach ulcer at age 17yrs, sinus problems, very [place] R ear. Last Myocardial Infarction Date:: 08/09/18 History of Any Multi-Drug Resistant Organisms: MRSA Date of last positivie culture/infection: 04/28/20 MDRO Source:: MRSA BLOOD AND DIALYSIS CATH TIP Past Surgical History: Heart Catheterization, Heart Catheterization With Stent Additional Past Surgical History / Comment(s): TTT, PD catheter placement/since removed, 2016 L arm fistula, fistula gram with balloon for stenosis, L eye vitrectomy, thyroid needle aspiration-negative, L leg cyst, colonoscopy with benign polypectomy. port placed in chest Right side. Past Anesthesia/Blood Transfusion Reactions: Postoperative Nausea & Vomiting (PONV) Date of Last Stent Placement:: 03-03-18 Past Psychological History: Anxiety, Depression Additional Psychological History / Comment(s): Pt resides with his spouse, AND SON. He is legally blind L eye and blind in R eye. He is very [place] in R ear. He has a cane and walker which he uses prn. His spouse and son drive. Pt uses g lasses and a magnifier to read. He has depression which he states is constantly present but not increased. He denies thoughts/plans of suicide. Smoking Status: Former smoker Past Alcohol Use History: None Reported Additional Past Alcohol Use History / Comment(s): Pt started smoking in 1972 and quit in 1995. Past Drug Use History: None Reported - Past Family History Father Family Medical History: Cancer, Coronary Artery Disease (CAD), Hyperlipidemia Additional Family Medical History / Comment(s): Lung/BRAIN CANCER Mother Family Medical History: Diabetes Mellitus, Deep Vein Thrombosis (DVT), Osteoarthritis (OA) Additional Family Medical History / Comment(s): DJD Sister(s) Family Medical History: Diabetes Mellitus Additional Family Medical History / Comment(s): Patient has one sister with diabetes mellitus type 2, SLE, MS. Brother(s) Family Medical History: Diabetes Mellitus Additional Family Medical History / Comment(s): Patient has 4 kids no major medical problems. Daughter(s) Family Medical History: No Reported History Additional Family Medical History / Comment(s): Patient has 2 daughters no major medical problems. Son(s) Family Medical History: No Reported History Additional Family Medical History / Comment(s): Patient has 2 sons no major medical problems. Medications and Allergies Home Medications Medication Instructions Recorded Confirmed Type Calcium Acetate [PhosLo] 667 mg PO TID@0800,1200,1700 08/05/18 08/12/20 History Furosemide [Lasix] 80 mg PO BID@0600,1800 04/13/19 08/12/20 History Triamcinolone 0.1% Ointment 1 applic TOPICAL BID 04/13/19 08/12/20 History [Kenalog] hydrOXYzine pamoate [Vistaril] 50 mg PO QID@00,06,12,18 02/06/20 08/12/20 History Gabapentin 300 mg PO HS@2100 02/17/20 08/12/20 History Pantoprazole [Protonix] 40 mg PO DAILY@0600 02/17/20 08/12/20 History Acetaminophen Tab [Tylenol] 650 mg PO Q6H PRN 08/12/20 08/12/20 History Ammonium Lactate Lotion 1 applic TOPICAL BID 08/12/20 08/12/20 History [Lac-Hydrin 12% Lotion] Aspirin EC [Ecotrin Low Dose] 81 mg PO DAILY@1700 08/12/20 08/12/20 History Baclofen [Lioresal] 10 mg PO Q8H PRN 08/12/20 08/12/20 History Cholestyramine (with Sugar) 4 gm PO BID@0800,1700 08/12/20 08/12/20 History [Cholestyramine Packet] Ciclopirox Olamine [Loprox 0.77% 1 applic TOPICAL BID 08/12/20 08/12/20 History cream] Epoetin Luis [Epogen] 4,000 unit SQ TUTHSA 08/12/20 08/12/20 History Ferrous Sulfate [Feosol] 325 mg PO BID@0800,1700 08/12/20 08/12/20 History HYDROcodone/APAP 5-325MG [[place] 1 tab PO Q6HR PRN 08/12/20 08/12/20 History 5-325] INSULIN ASPART (NovoLOG) [NovoLOG See Protocol SQ ACHS 08/12/20 08/12/20 History (formulary)] Insulin Detemir (Levemir) [Levemir] 10 unit SQ HS@209908/12/20 08/12/20 History Magnesium Hydroxide [Milk of 7,200 mg PO DAILY PRN 08/12/20 08/12/20 History Magnesia Concentrate] Melatonin 1 mg PO HS 08/12/20 08/12/20 History Menthol [Biofreeze] 1 applic TOPICAL TID 08/12/20 08/12/20 History Menthol-Zinc Oxide Oint 1 applic TOPICAL BID 08/12/20 08/12/20 History [Calmoseptine Oint] Midodrine HCl [ProAmatine] 10 mg PO DAILY@0800 08/12/20 08/12/20 History Multivitamins, Thera [Multivitamin 1 tab PO DAILY@1700 08/12/20 08/12/20 History (formulary)] Na Phos,M-B/Na Phos,Di-Ba [Fleet 133 ml RECTAL DAILY PRN 08/12/20 08/12/20 History Adult] Sennosides/Docusate Sodium 1 tab PO Q12H PRN 08/12/20 08/12/20 History [Senna-S 8.6-50 mg Tablet] bisacodyL [Dulcolax] 10 mg RECTAL DAILY PRN 08/12/20 08/12/20 History hydrALAZINE HCL 10 mg PO BID@0800,2100 08/12/20 08/12/20 History Allergies Allergy/AdvReac Type Severity Reaction Status Date / Time bumetanide [From Bumex] Allergy Hallucinati Verified 08/12/20 12:19 ons codeine Allergy Unknown Verified 08/12/20 12:19 Penicillins Allergy Anaphylaxis Verified 08/12/20 12:19 sulfadiazine Allergy Unknown Verified 08/12/20 12:19 morphine AdvReac Confusion Verified 08/12/20 12:19 rivaroxaban [From Xarelto] AdvReac Bloody Nose Verified 08/12/20 12:19 spironolactone AdvReac Hallucinati Verified 08/12/20 12:19 ons All antibiotics except Keflex Allergy Unknown Uncoded 08/12/20 10:45 Childhood Physical Exam Vitals: Vital Signs Temp Pulse Pulse Resp BP BP Pulse Ox 08/13/20 04:00 76 18 211/98 100 08/13/20 03:07 84 08/13/20 03:01 78 08/12/20 23:35 76 18 177/85 94 L 08/12/20 22:06 192/76 08/12/20 21:00 18 210/104 100 08/12/20 20:50 88 08/12/20 20:38 100 08/12/20 20:34 88 08/12/20 20:00 97.9 F 95 18 196/96 97 08/12/20 17:51 98.3 F 82 20 217/111 100 08/12/20 17:12 77 16 161/107 99 08/12/20 13:27 74 16 169/91 92 L 08/12/20 12:06 77 16 174/100 99 08/12/20 10:45 97.4 F L 79 16 173/100 92 L Intake and Output 08/12/20 08/13/20 08/13/20 22:59 06:59 14:59 Intake Total 240 Output Total 520 0 Balance -280 0 Intake: Oral 240 Output: Urine 200 0 Stool 320 Other: Voiding Method Urinal Urinal # Voids 1 0 # Bowel Movements 1 Weight 97.522 kg Results CBC & Chem 7: 08/12/20 11:00 08/12/20 11:00 Labs: Abnormal Lab Results - Last 24 Hours (Table) 08/12/20 08/12/20 08/12/20 Range/Units 11:00 11:00 11:00 RBC 2.98 L (4.30-5.90) m/uL Hgb 8.9 L (13.0-17.5) gm/dL Hct 27.3 L (39.0-53.0) % Lymphocytes # 0.6 L (1.0-4.8) k/uL APTT 19.5 L (22.0-30.0) sec BUN 64 H (9-20) mg/dL Creatinine 4.12 H (0.66-1.25) mg/dL Glucose 237 H (74-99) mg/dL POC Glucose (mg/dL) (75-99) mg/dL Alkaline Phosphatase 192 H (38-126) U/L Procalcitonin (0.02-0.09) ng/mL TSH 5.340 H (0.465-4.680) mIU/L Urine Opiates Screen (NotDetected) 08/12/20 08/12/20 08/12/20 Range/Units 11:00 19:38 20:26 RBC (4.30-5.90) m/uL Hgb (13.0-17.5) gm/dL Hct (39.0-53.0) % Lymphocytes # (1.0-4.8) k/uL APTT (22.0-30.0) sec BUN (9-20) mg/dL Creatinine (0.66-1.25) mg/dL Glucose (74-99) mg/dL POC Glucose (mg/dL) 242 H (75-99) mg/dL Alkaline Phosphatase (38-126) U/L Procalcitonin 0.80 H (0.02-0.09) ng/mL TSH (0.465-4.680) mIU/L Urine Opiates Screen Detected H (NotDetected) 08/13/20 08/13/20 Range/Units 06:13 07:55 RBC (4.30-5.90) m/uL Hgb (13.0-17.5) gm/dL Hct (39.0-53.0) % Lymphocytes # (1.0-4.8) k/uL APTT (22.0-30.0) sec BUN (9-20) mg/dL Creatinine (0.66-1.25) mg/dL Glucose (74-99) mg/dL POC Glucose (mg/dL) 244 H 220 H (75-99) mg/dL Alkaline Phosphatase (38-126) U/L Procalcitonin (0.02-0.09) ng/mL TSH (0.465-4.680) mIU/L Urine Opiates Screen (NotDetected) Thrombosis Risk Factor Assmnt - Choose All That Apply Any of the Below Risk Factors Present?: Yes Each Factor Represents 1 point: Obesity (BMI >25), Swollen legs (current) Other Risk Factors: Yes Each Risk Factor Represents 2 Points: Age 61-74 years Thrombosis Risk Factor Assessment Total Risk Factor Score: 4 Thrombosis Risk Factor Assessment Level: Moderate Risk
--- NOTE | 2020-08-13 13:43 | CONS ---
CONSULTATION DATE OF SERVICE: 08/13/2020 REASON FOR CONSULTATION: Abnormal x-ray. HISTORY OF PRESENT ILLNESS: The patient is a 60-year-old male with a past medical history significant for end-stage renal disease, on hemodialysis in this patient who does have a history of prolonged MRSA bacteremia secondary to PermCath that was subsequently discontinued. The patient was transferred to [facility], the details of that is currently not available. The patient mentioned the catheter was removed and currently has a left arm AV fistula for dialysis. The patient was undergoing rehab at [facility] and was sent to the ER yesterday morning for evaluation of weakness. The patient has been complaining of chest pain, more of a sharp in nature. He did have some occasional cough but not bringing up any sputum. He is complaining now of some shortness of breath. Denies any URI symptoms. He did have an episode of vomiting this morning per the nurse's aide. Denies any abdominal pain or any diarrhea. With current symptomatology, the patient was evaluated by the ER physician. On arrival to the ER, the patient was afebrile and no fever has been recorded subsequently. The patient did have a normal white count. He did have a chest x-ray with evidence of patchy air space disease concerning for possible pneumonia. Patient did have a negative Covid as well as influenza. However, his procalcitonin has been slightly elevated at 0.80. The patient being treated with vancomycin and cefepime. Infectious Disease was consulted for further management. REVIEW OF SYSTEMS: Positive points have been mentioned in HPI. Rest of systems are negative. PAST MEDICAL HISTORY: Atrial fibrillation, coronary artery disease, heart failure, diabetes mellitus, hyperlipidemia, hypertension, NC, history of MRSA bacteremia secondary to the PermCath. PAST SURGICAL HISTORY: Heart catheterization with stent, PD catheter placed, subsequent removal as well as left arm fistula, colonoscopy and polypectomy. SOCIAL HISTORY: Positive for remote history of smoking. No drinking or drug use. FAMILY HISTORY: Father with history of lung and brain cancer. Mother history of diabetes and DVT. ALLERGIES: TO PENICILLIN, SULFA, MENTIONED ALL ANTIBIOTICS EXCEPT KEFLEX. MEDICATIONS: The patient is currently on vancomycin, Pharmacy to dose. The patient is on Protonix, Zofran, Narcan, Lopressor, Levemir, iron sulfate, cefepime, aspirin, PhosLo, DuoNeb and Tylenol. PHYSICAL EXAMINATION: Blood pressure is 184/84 with a pulse of 75, temperature 98. He is 97% on 2 L nasal cannula. GENERAL description: The patient is a middle-aged male lying in bed in no distress. No tachypnea or accessory muscles of respiration use. HEENT: Examination shows slight pallor. No scleral icterus. Oral mucous membranes dry. NECK: Trachea central. No thyromegaly. LUNGS unlabored breathing, decreased intensity of breath sounds. No wheeze. HEART: S1, S2. Regular rate. ABDOMEN: Soft, no tenderness. No guarding. No rigidity. EXTREMITIES: No edema of the feet. SKIN: No rash or mass palpable. NEUROLOGICAL: Patient is awake and alert and oriented times two. Mood and affect normal. LABS: Hemoglobin 8.8, white count 8.5, BUN of 64, creatinine 4.1. Electrolytes have been normal. Liver enzymes are normal. Procalcitonin 0.80. CRP is normal though. Chest x- ray report mentioned above. DIAGNOSTIC IMPRESSION AND PLAN: Patient admitted to the hospital with shortness of breath and weakness with evidence of patchy airspace disease, question related to fluid as the patient is dialysis dependent. Clinically not behaving as pneumonia. The patient with no fever or elevated white count and normal CRP. However, elevated procalcitonin slightly concerning in this patient who has been in and out of the hospital. We will need to cover with antibiotics until his condition stabilizes and cultures are finalized. PLAN: 1. We will try to obtain sputum for Gram stain and culture. 2. The patient to continue vancomycin, cefepime. 3. We will follow on his clinical condition and culture to further adjust medication if needed. Thank you for this consultation. Will follow this patient along with you. MMODL / IJN: [id number] /
--- NOTE | 2020-08-13 15:19 | EEG ---
ELECTROENCEPHALOGRAM REPORT DATE OF SERVICE: 08/13/2020. CLINICAL HISTORY: This is a 60-year-old gentleman who presented to the emergency department for altered mental status. The video EEG is obtained to evaluate for seizure and epileptiform activity. RELEVANT MEDICATION: The patient is not on any antiepileptic drugs. The EEG type is a routine 21 channel EEG performed with video using the 10/20 electrode placement system. DESCRIPTION: Wakefulness and drowsiness are obtained. During wakefulness, there is a posterior dominant rhythm of poorly modulated 7-7.5 hertz activity. During drowsiness, there is slowing and attenuation of the background activity. There is no physiological stage 2 sleep architecture. There is no focal slowing seen. Intraictal and ictal are none. ACTIVATION PROCEDURES: Photic stimulation did not evoke a posterior driving response. There is no abnormality during photic stimulation. Hyperventilation is not performed. CLINICAL INTERPRETATION: This is an abnormal routine EEG. The mild generalized background slowing is suggestive of mild encephalopathy. There are no focal slowing, epileptiform discharges or seizures on the EEG. Clinical correlation is recommended. MMVALERIE / BISIN: [id number] / [email or web address]
[2020-08-13 17:09] LABS: Glucose,Whole Blood 209 mg/dL (75-99)
[2020-08-13] MEDS: CEFEPIME 1 GM in SODIUM CHLORIDE 0.9% 50 ML IVPB SCH ×2 (17:41→20:11)
[2020-08-13] MEDS: ASPIRIN 81 MG PO SCH (17:43)
[2020-08-13] MEDS: MULTIVITAMINS, THERA 1 EACH TAB PO SCH (17:43)
[2020-08-13] MEDS: hydrALAZINE HCL 50 MG TAB PO SCH ×2 (17:43→20:11)
[2020-08-13] MEDS: INSULIN ASPART (NovoLOG) 100 UNIT/ML VIAL SQ SCH ×2 (17:43→20:14)
[2020-08-13] MEDS: SODIUM CHLORIDE 0.9% 1,000 ML IV SCH (17:50)
[2020-08-13] MEDS: hydrALAZINE HCL 10 MG TAB PO SCH (18:10)
--- NOTE | 2020-08-13 18:26 | P.CNNES ---
History of Present Illness Consult date: 08/13/20 Requesting physician: Louis Merrill Reason for Consult: altered mental status History of Present Illness: This is a 60-year-old gentleman with medical history of diabetes mellitus, cardiac on 04/11/2020, bilateral lower extremity weakness with falls, moderate lumbar spondylosis L4-L5 and L5-S1, poorly controlled diabetes, history of septicemia with MRSA on 2020, atrial fibrillation, history of coronary artery disease status post stent, peripheral neuropathy, deafness on right, legally blind over the right, hyperlipidemia, hypertension, end-stage renal disease on dialysis who was transferred from [facility] for lethargy. Patient has been feeling more fatigued. Per the patient's nurse in the ED she stated that the his mentation has been fluctuating but when he is awake he is alert oriented 3 but he'll fall sleep immediately after that. No jerking if any extremities, foaming around the mouth. Or any seizure-like activity. The patient and his daughter are at bedside and they stated that the patient has been more fatigued than normal. He's been having neck pain and lower back pain. He is also complains and that he is having more headaches. These have been going on for the past 1 month. Patient stated that he is having a bandlike headache he spheres severe. He does have some photophobia but denies any photophobia. Has been feel nausea is and some vomiting. Feels his left vision has been worse sitting over the past couple months. He's also having the excruciating neck pain without any radiation. Denies any focal weakness. He is also having lower back pain that is localized. Denies any focal weakness or numbness that are new. Per the she stated that on his last admission in our facility and eventually he was transferred to [facility] and there he had workup which shows that he had the parasitic infection over the cervical region, he had sepsis due to MRSA. The vancomycin had to be stopped because it was resistant. He was told he also had cervical neck there was a fracture. Patient received the antibiotic and antiparasitic and he had a PICC line and then from there he was a taken to [facility]. He had the treatment from [facility] till [facility]. Of note the patient was seen by our team on 0-19 2021 for altered mental status and presents personally saw the patient on initial consultation and I felt this was likely due to toxic metabolic encephalopathy due to missed dialysis as well as he had uncontrolled sugar. At that time he also had the during his hospital stay he had cardiac arrest lasting less than 2 minutes and later that afternoon had a respiratory arrest of uncertain duration with episode of hypo-tension. Was last seen on 04/25/2020 and was felt also complaining of his altered mental status was due to septic encephalopathy. His bilateral lower extremity weakness with falls possibly due to diabetic neuropathy vs plexopathy vs mononeuritis multiplex. We recommended the patient to get EMG with nerve conduction study as an outpatient. Some of the workup in the hospital consisted of: Initial vital signs: Blood pressure of 173/100, heart rate of 79, respiratory of 16, temperature of 97.4 Fahrenheit oral, pulse ox of 92% at room air. CT of the head is reported as "no acute intracranial abnormality seen. Prominent extra cranial arterial calcification. Query underlying diabetes or chronic kidney disease". Initial white blood cells 8.5. Hemoglobin is 8.9 which is low. Initial glucose serum is 237 which is elevated that. The creatinine is 4.12 the patient is on dialysis. Sodium was 138, calcium is 9.1, AST of 31 and ALT of 28, ammonia is less than 9 and all these are within normal limits. TSH is 5.340 which is slightly elevated but the free T4 is 1.53 which is considered within normal limits. Review of Systems Review of system: The 12 point system was reviewed and apparent positive and negative per HPI. Past Medical History Past Medical History: Atrial Fibrillation, Coronary Artery Disease (CAD), Heart Failure, Diabetes Mellitus, Dialysis, Eye Disorder, GERD/Reflux, Hearing Disorder / Deafness, Hyperlipidemia, Hypertension, Myocardial Infarction ([place]), Renal Disease, Syncope Additional Past Medical History / Comment(s): IDDM type II, neuropathy bilateral hands/feet, ESRD with hemodialysis on M/W/, chronic anemia, LVH, Afib with RVR, MIs, chronic CHF, R eye blindness, L eye legally blind, RLS, pt unsure if he has gout, vertigo at times, balance issues at times, stomach ulcer at age 17yrs, sinus problems, very [place] R ear. Last Myocardial Infarction Date:: 08/09/18 History of Any Multi-Drug Resistant Organisms: MRSA Date of last positivie culture/infection: 3/7/21 MDRO Source:: MRSA BLOOD AND DIALYSIS CATH TIP Past Surgical History: Heart Catheterization, Heart Catheterization With Stent Additional Past Surgical History / Comment(s): TTT, PD catheter placement/since removed, 2016 L arm fistula, fistula gram with balloon for stenosis, L eye vitrectomy, thyroid needle aspiration-negative, L leg cyst, colonoscopy with benign polypectomy. port placed in chest Right side. Past Anesthesia/Blood Transfusion Reactions: Postoperative Nausea & Vomiting (PONV) Date of Last Stent Placement:: 03-03-18 Past Psychological History: Anxiety, Depression Additional Psychological History / Comment(s): Pt resides with his spouse, AND S ON. He is legally blind L eye and blind in R eye. He is very [place] in R ear. He has a cane and walker which he uses prn. His spouse and son drive. Pt uses glasses and a magnifier to read. He has depression which he states is constantly present but not increased. He denies thoughts/plans of suicide. Smoking Status: Former smoker Past Alcohol Use History: None Reported Additional Past Alcohol Use History / Comment(s): Pt started smoking in 1972 and quit in 1995. Past Drug Use History: None Reported - Past Family History Father Family Medical History: Cancer, Coronary Artery Disease (CAD), Hyperlipidemia Additional Family Medical History / Comment(s): Lung/BRAIN CANCER Mother Family Medical History: Diabetes Mellitus, Deep Vein Thrombosis (DVT), Osteoarthritis (OA) Additional Family Medical History / Comment(s): DJD Sister(s) Family Medical History: Diabetes Mellitus Additional Family Medical History / Comment(s): Patient has one sister with diabetes mellitus type 2, SLE, MS. Brother(s) Family Medical History: Diabetes Mellitus Additional Family Medical History / Comment(s): Patient has 4 kids no major medical problems. Daughter(s) Family Medical History: No Reported History Additional Family Medical History / Comment(s): Patient has 2 daughters no major medical problems. Son(s) Family Medical History: No Reported History Additional Family Medical History / Comment(s): Patient has 2 sons no major medical problems. Medications and Allergies Home Medications Medication Instructions Recorded Confirmed Type Calcium Acetate [PhosLo] 667 mg PO TID@0800,1200,1700 08/05/18 08/12/20 History Furosemide [Lasix] 80 mg PO BID@0600,1800 04/13/19 08/12/20 History Triamcinolone 0.1% Ointment 1 applic TOPICAL BID 04/13/19 08/12/20 History [Kenalog] hydrOXYzine pamoate [Vistaril] 50 mg PO QID@00,06,12,18 02/06/20 08/12/20 History Gabapentin 300 mg PO HS@2100 02/17/20 08/12/20 History Pantoprazole [Protonix] 40 mg PO DAILY@0600 02/17/20 08/12/20 History Acetaminophen Tab [Tylenol] 650 mg PO Q6H PRN 08/12/20 08/12/20 History Ammonium Lactate Lotion 1 applic TOPICAL BID 08/12/20 08/12/20 History [Lac-Hydrin 12% Lotion] Aspirin EC [Ecotrin Low Dose] 81 mg PO DAILY@1700 08/12/20 08/12/20 History Baclofen [Lioresal] 10 mg PO Q8H PRN 08/12/20 08/12/20 History Cholestyramine (with Sugar) 4 gm PO BID@0800,1700 08/12/20 08/12/20 History [Cholestyramine Packet] Ciclopirox Olamine [Loprox 0.77% 1 applic TOPICAL BID 08/12/20 08/12/20 History cream] Epoetin Luis [Epogen] 4,000 unit SQ TUTHSA 08/12/20 08/12/20 History Ferrous Sulfate [Feosol] 325 mg PO BID@0800,1700 08/12/20 08/12/20 History HYDROcodone/APAP 5-325MG [Bernard 1 tab PO Q6HR PRN 08/12/20 08/12/20 History 5-325] INSULIN ASPART (NovoLOG) [NovoLOG See Protocol SQ ACHS 08/12/20 08/12/20 History (formulary)] Insulin Detemir (Levemir) [Levemir] 10 unit SQ HS@2100 08/12/20 08/12/20 History Magnesium Hydroxide [Milk of 7,200 mg PO DAILY PRN 08/12/20 08/12/20 History Magnesia Concentrate] Melatonin 1 mg PO HS 08/12/20 08/12/20 History Menthol [Biofreeze] 1 applic TOPICAL TID 08/12/20 08/12/20 History Menthol-Zinc Oxide Oint 1 applic TOPICAL BID 08/12/20 08/12/20 History [Calmoseptine Oint] Midodrine HCl [ProAmatine] 10 mg PO DAILY@0800 08/12/20 08/12/20 History Multivitamins, Thera [Multivitamin 1 tab PO DAILY@1700 08/12/20 08/12/20 History (formulary)] Na Phos,M-B/Na Phos,Di-Ba [Fleet 133 ml RECTAL DAILY PRN 08/12/20 08/12/20 History Adult] Sennosides/Docusate Sodium 1 tab PO Q12H PRN 08/12/20 08/12/20 History [Senna-S 8.6-50 mg Tablet] bisacodyL [Dulcolax] 10 mg RECTAL DAILY PRN 08/12/20 08/12/20 History hydrALAZINE HCL 10 mg PO BID@0800,2100 08/12/20 08/12/20 History Allergies Allergy/AdvReac Type Severity Reaction Status Date / Time bumetanide [From Bumex] Allergy Hallucinati Verified 08/12/20 12:19 ons codeine Allergy Unknown Verified 08/12/20 12:19 Penicillins Allergy Anaphylaxis Verified 08/12/20 12:19 sulfadiazine Allergy Unknown Verified 08/12/20 12:19 morphine AdvReac Confusion Verified 08/12/20 12:19 rivaroxaban [From Xarelto] AdvReac Bloody Nose Verified 08/12/20 12:19 spironolactone AdvReac Hallucinati Verified 08/12/20 12:19 ons All antibiotics except Keflex Allergy Unknown Uncoded 08/12/20 10:45 Childhood Physical Examination - Vital Signs Vital Signs: Vital Signs Temp Pulse Pulse Resp BP BP Pulse Ox 08/12/20 17:51 98.3 F 82 20 217/111 100 08/12/20 17:12 77 16 161/107 99 08/12/20 13:27 74 16 169/91 92 L 08/12/20 12:06 77 16 174/100 99 08/12/20 10:45 97.4 F L 79 16 173/100 92 L Intake and Output 08/12/20 08/12/20 08/12/20 06:59 14:59 22:59 Intake Total 240 Balance 240 Intake: Oral 240 Other: Weight 97.522 kg 97.522 kg GENERAL: The patient is lying in bed is in moderate acute distress. CHEST: The heart rate is regular rate rhythm. No murmurs to auscultation. No carotid bruit bilaterally. LUNG: Clear to auscultation bilaterally no wheezing noted throughout. Not labored breathing. ABDOMEN/GI: Bowel sounds present in all 4 quadrants. No tenderness to palpation throughout. NEUROLOGICAL: Higher mental function: The patient is drowsy but awakeable to voice. He is oriented to self, place and time. He is able to name objects correctly (pen, watch cup). Patient is following commands. No aphasia and no neglect. Cranial nerves: The pupils are round, equal and reactive to light. Patient is legally blind over the right eye. Visual field full over the left. Extraocular movement is intact no nystagmus is noted over the left. Facial sensation is normal to touch throughout. The facial strength is normal throughout. Hearing is severely decreased to hand rub. Tongue is midline and moved [id number] without any difficulty. No dysarthria is noted. Shoulder shrug is normal bilaterally. Motor: Gait is deferred. The strength is left arm extension is 4+., flexion is 4+ to 5-. Otherwise 5/5. Lower is able to lift above gravity without focality. Normal tone and bulk. Cerebellum: Normal finger to nose bilaterally. Sensation: Sensation is normal to touch throughout. Reflexes (right/left): 1+ in upper while lowers are ) bilaterally. Plantars are mute bilaterally. Results Influenza A, influenza B PCR, RSV PCR and SARS-CoV2 PCR are not detected. - Laboratory Findings CBC and BMP: 08/12/20 11:00 08/12/20 11:00 Abnormal Lab Findings: Abnormal Labs 08/12/20 08/12/20 08/12/20 11:00 11:00 11:00 RBC 2.98 L Hgb 8.9 L Hct 27.3 L Lymphocytes # 0.6 L APTT 19.5 L BUN 64 H Creatinine 4.12 H Glucose 237 H Alkaline Phosphatase 192 H TSH 5.340 H Assessment and Plan Assessment: Altered mental status likely due to metabolic encephalopathy--Upon examinaning him he was alert, oriented X3 but having fluctuation of mentation. Delerium due to above. Worsening of neck pain (Was told he had Parasitic infection with recent treatment of cervical discitis at [facility]). Rule out any remission of infection. History of septicemia (with MRSA souce in the lumbar spine was notified of this at [facility]) Headache possibly due to uncontrolled hypertension vs underlying infection. Elevated Hypertension Cervical fracture (per were notifed of this at [facility]) Bilateral lower extremity weakness with falls Peripheral neuropathy Moderate lumbar spondylosis L4-L5 and L5-S1 Diabetes mellitus that is a poorly controlled End-stage renal disease on dialysis Atrial fibrillation Legally blind Hyperlipidemia History of cardiac arrest on 04-11 History of coronary artery disease status post stent Plan: CT of the head is reported as "no acute intracranial abnormality seen. Prominent extra cranial arterial calcification. Query underlying diabetes or chronic kidney disease". TSH is 5.340 which is slightly elevated but the free T4 is 1.53 which is considered within normal limits. Vitamin B12 is more than 4000 on 04/13/2020 which is above normal limits. The red blood cell folate is a thousand 528 which is also above normal limits. I ordered a routine EEG. I doubt this patient has any underlying seizures as cause of change in mentation. I agree of holding gabapentin, avoid any narcotic opiates or sedation which can affect patient's mentation. I recommend repeat MRI of the brain cervical supine, thoracic and lumbar, and to be coordinated with dialysis but the patient refuses MRI's. Infection disease is consulted. Nephrology is consulted. Will attempt to retrieve records from [facility]. His bilateral lower extremity weakness with falls possibly due to diabetic neuropathy vs plexopathy versus mononeuritis multiplex. We recommended the patient to get EMG with nerve conduction study as an outpatient. We'll defer the rest of the medical management to primary team. The primary team has decided to transfer the patient to [facility] because of the complexity of the care as well as since the patient is known to them. The plan is discussed with the (Teena) and her daughter who are at beside. As well as the patient's nurse. Thank you for the consultation. Dru Nixon M.D. Neuro-hospitalist Time with Patient: Greater than 30
[2020-08-13 19:01] LABS: % Iron Saturation 32.61 (15.00-50.00)
[2020-08-13 19:15] LABS: Ferritin 1530.6 ng/mL (22.0-322.0)
[2020-08-13] MEDS: CLOTRIMAZOLE 1% CREAM 30 GM TUBE TOPICAL SCH (20:11)
[2020-08-13] MEDS: HEPARIN SODIUM,PORCINE/PF 5,000 UNIT/0.5 ML SYRINGE SQ SCH (20:11)
[2020-08-13] MEDS: INSULIN DETEMIR (LEVEMIR) 100 UNIT/ML SYR SQ SCH (20:11)
[2020-08-13 20:12] LABS: Glucose,Whole Blood 197 mg/dL (75-99)
[2020-08-13] MEDS: MELATONIN 1 MG TAB PO SCH (20:12)
[2020-08-14] MEDS: hydrALAZINE HCL 20 MG/ML 1 ML VIAL IVP PRN (05:11)
[2020-08-14 06:15] LABS: Glucose,Whole Blood 159 mg/dL (75-99)
[2020-08-14] MEDS: INSULIN ASPART (NovoLOG) 100 UNIT/ML VIAL SQ SCH ×4 (06:22→21:08)
[2020-08-14] MEDS: FUROSEMIDE 80 MG TAB PO SCH ×2 (06:22→16:54)
[2020-08-14] MEDS: PANTOPRAZOLE 40 MG TABLET PO SCH (06:23)
[2020-08-14] MEDS: CEFEPIME 1 GM in SODIUM CHLORIDE 0.9% 50 ML IVPB SCH ×2 (08:30→21:02)
[2020-08-14] MEDS: HEPARIN SODIUM,PORCINE/PF 5,000 UNIT/0.5 ML SYRINGE SQ SCH ×2 (08:30→21:02)
[2020-08-14] MEDS: CALCIUM ACETATE 667 MG TAB PO SCH ×3 (08:31→16:54)
[2020-08-14] MEDS: FERROUS SULFATE 325 MG TAB PO SCH ×2 (08:31→16:54)
[2020-08-14] MEDS: hydrALAZINE HCL 50 MG TAB PO SCH ×3 (08:31→21:07)
[2020-08-14] MEDS: CLOTRIMAZOLE 1% CREAM 30 GM TUBE TOPICAL SCH ×2 (08:31→21:03)
[2020-08-14 09:03] LABS: Vancomycin,Random 17.5 ug/mL
--- NOTE | 2020-08-14 09:10 | P.PN ---
Subjective Patient is seen in follow-up for end-stage renal disease. He is maintained on hemodialysis on Wednesday schedule. Tolerated 3 L ul trafiltration yesterday. No active complaints at this time. Vital signs are stable. General: The patient appeared well nourished and normally developed. HEENT: Head exam is unremarkable. Neck is without jugular venous distension. LUNGS: reath sounds decreased. HEART: Rate and Rhythm are regular. ABDOMEN: Soft, no distention. EXTREMITITES: Trace edema. Objective - Vital Signs Vital signs: Vital Signs Temp 98.3 F 08/13/20 20:00 Pulse 74 08/14/20 04:00 Resp 18 08/14/20 04:00 BP 189/91 08/14/20 04:00 Pulse Ox 97 08/14/20 04:00 Intake & Output 08/13/20 08/14/20 08/14/20 18:59 06:59 18:59 Intake Total 1040 530 Output Total 2500 500 Balance -1460 30 Intake: Intake, IV Titration 50 Amount Cefepime 1 gm In Sodium 50 Chloride 0.9% 50 ml @ 12. 5 mls/hr IVPB Q12HR [facility] Rx#:[id number] Oral 840 480 Hemodialysis 200 Output: Urine 0 80 Stool 420 Hemodialysis 2500 Other: Voiding Method Urinal Urinal Diaper # Voids 1 # Bowel Movements 1 - Labs CBC & Chem 7: 08/12/20 11:00 08/14/20 06:49 Labs: Abnormal Lab Results - Last 24 Hours (Table) 08/13/20 08/13/20 08/13/20 Range/Units 10:16 12:00 17:07 Creatinine (0.66-1.25) mg/dL POC Glucose (mg/dL) 160 H 209 H (75-99) mg/dL Ferritin 1530.6 H (22.0-322.0) ng/mL 08/13/20 08/14/20 08/14/20 Range/Units 20:10 06:14 06:49 Creatinine 4.42 H (0.66-1.25) mg/dL POC Glucose (mg/dL) 197 H 159 H (75-99) mg/dL Ferritin (22.0-322.0) ng/mL Microbiology - Last 24 Hours (Table) 08/12/20 15:05 Blood Culture - Preliminary Blood No Growth after 24 hours Assessment and Plan Plan: Assessment: 1. End-stage renal disease maintained on hemodialysis on Wednesday schedule left upper extremity AV fistula. 2. Anemia of chronic kidney disease. Iron replete. Maintained on Aranesp. 3. Diabetes mellitus. 4. Generalized debility. 5. Hypertension with chronic kidney disease. 6. Possible pneumonia maintained on antibiotics. Infectious disease following. 7. Chronic kidney disease mineral bone disease maintained on PhosLo. 8. Volume overload. Improved with ultrafiltration. Plan: Hemodialysis tomorrow. Increase dose of hydralazine. Monitor vancomycin level. Target level near 15.
[2020-08-14] MEDS: ACETAMINOPHEN TAB 325 MG TAB PO PRN ×2 (09:31→16:55)
[2020-08-14] MEDS ORDERED: LACTULOSE 20 GM/30 ML CUP PO PRN (10:11)
[2020-08-14 11:39] LABS: Glucose,Whole Blood 224 mg/dL (75-99)
[2020-08-14] MEDS ORDERED: VANCOMYCIN 1,500 MG in SODIUM CHLORIDE 0.9% 250 ML IVPB ONE (12:00)
--- NOTE | 2020-08-14 12:52 | P.PN ---
Subjective Progress Note Date: 08/14/20 HISTORY OF PRESENT ILLNESS This is a 60-year-old male patient of Dr. 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 Patient was last hospitalized in April which time he was treated for sepsis and MRSA bacteremia of unclear etiology with metabolic encephalopathy vasovagal episode requiring brief CPR and patient was transferred to [facility]. According to the patient's , patient had MRSA sores in the lumbar spine and also some type of cyst cervical fracture and parasitic infection. Patient was discharged to [facility] for subacute rehab and was transferred from there yesterday due to change in mental status and lethargy, increasing fatigue and neck pain. EKG was in normal sinus rhythm with no acute ST changes. He was afebrile, heart rate 79, blood pressure 173/100, pulse ox 92%. WBC 8.5, hemoglobin 8.9, platelet count 173. Letter lites were normal. BUN 64 creatinine 4.12 and blood sugar 237. Alkaline phosphatase 192. TSH 5.340. Ammonia level less than 9. Lactic acid 1.8. Troponin 0.021. Influenza, RSV, SARS Covid PCR not detected. Chest x-ray reveals old patchy a irspace disease bilaterally. Enlargement of cardiac LAD appears similar to prior exam. CAT scan of the brain revealed no acute intracranial abnormality. Patient was seen by nephrology and started on hemodialysis this morning. Case was discussed with neurology and also with the patient's . Decision was made to transfer patient to [facility] for continuity of care. Patient will be transferred today once arrangements are completed. 08/14: Patient is seen today in the cardiac stepdown unit. He is sitting on the edge of the bed and is awake, alert and oriented 3. He is able to provide information about his reason for transfer to the hospital. He does recall that he refused to have MRI yesterday of his neck. He does not want to go to [facility] in this transfer will be canceled. [facility] records were reviewed and patient was treated for osteomyelitis of the lumbar spine. He did not undergo any neurological intervention or surgery. There was fracture at the cervical spine, no infection. Patient complains of redness in the left axilla area but nothing is seen. He complains of hard time getting his words out and that he is falling asleep as well as sentences. Regarding his neck, he states he has had decreased range of motion in his neck since March and he did have a full workup done at [facility]. Patient has history of obst ructive sleep apnea and he has a CPAP at home and recommended that his bring his CPAP in. He states he has not been using it at [facility]. Patient has been seen and followed by neurology and scheduled for hemodialysis tomorrow. Hydralazine was increased. EEG reveals abnormal study suggestive of mild encephalopathy. No epileptiform discharges or seizures. Patient has been afebrile, heart rate 70, blood pressure 134/65, pulse ox 99% on 2 L nasal cannula. Creatinine 4.42. Blood sugars running between 59-224. Vancomycin level 17.5. Blood culture no growth at 24 hours. Patient has been seen by Dr. Presley for possible pneumonia and he is currently on vancomycin and cefepime. Patient's gabapentin is on hold and he is requesting that be resumed. Long discussion with Dr. Lima and this will remain on hold for now. Anticipate possible discharge back to [facility] tomorrow. REVIEW OF SYSTEMS Constitutional: No fever, no chills, no night sweats. No weight change. Reported weakness, fatigue or lethargy. No daytime sleepiness. EENT: No headache. No blurred vision or double vision, no loss of vision. No loss of Hearing, no ringing in the ears, no dizziness. No nasal drainage or congestion. No epistaxis. No sore throat. Lungs: No shortness of breath, cough, no sputum production. No wheezing. Cardiovascular: No chest pain, no lower extremity edema. No palpitations. No paroxysmal nocturnal dyspnea. No orthopnea. No lightheadedness or dizziness. No syncopal episodes. Abdominal: No abdominal pain. No nausea, vomiting. No diarrhea. No con stipation. No bloody or tarry stools.. No loss of appetite. Genitourinary: No dysuria, increased frequency, urgency. No urinary retention. Musculoskeletal: No myalgias. Noted muscle weakness, no gait dysfunction, no frequent falls. No back pain. Reports neck pain. Integumentary: No wounds, no lesions. No rash or pruritus. No unusual bruising. No change in hair or nails. Neurologic: No aphasia. No facial droop. No change in mentation. No head injury. No headache. No paralysis. No paresthesia. Psychiatric: No depression. No anxiety. No mood swings. Endocrine: Noted abnormal blood sugars. No weight change. PHYSICAL EXAMINATION Gen: This is a 60-year-old male patient resting on the edge of the bed and appears to be in no acute distress. HEENT: Head is atraumatic, normocephalic. Pupils equal, round. Sclerae is anicteric. NECK: Supple. No JVD. No lymphadenopathy. No thyromegaly. LUNGS: Clear to auscultation. No wheezes or rhonchi. No intercostal retractions. HEART: Regular rate and rhythm. 2/6 systolic murmur. ABDOMEN: Soft. Bowel sounds are present. No masses. No tenderness. EXTREMITIES: No pedal edema. No calf tenderness. NEUROLOGICAL: Patient is awake, oriented x3, able to follow simple commands only. Cranial nerves 2 through 12 are grossly intact. ASSESSMENT AND PLAN 1. Metabolic encephalopathy of unclear etiology. Possible pneumonia. Continue cefepime 1 g every 12 hours and vancomycin, pharmacy dosing, consult in place with neurology and infectious disease appreciated. Hold baclofen, gabapentin, [place]. 2. Neck pain, chronic. Reports from [facility]. 3. Recent treatment for MRSA bacteremia secondary to osteomyelitis of the lumbar spine. Patient completed course of antibiotics. 4. End-stage renal disease on hemodialysis. Consult with nephrology appreciated. Continue PhosLo 667 mg 3 times daily, Aranesp 40 g subcu every 7 days, hemodialysis today. 5. Degenerative disc disease and spinal stenosis. 6. History of coronary artery disease with previous PTCA to LAD and circumflex. 7. Paroxysmal atrial fibrillation. Patient is off eliquis, amiodarone and meto prolol. 8. Ischemic cardiomyopathy. 9. Diabetes mellitus type 2, insulin requiring. Continue Levemir 5 units at bedtime, add NovoLog scale before meals and at bedtime, 10. Diabetic neuropathy. Hold gabapentin. 11. Hypertension. Continue hydralazine 50 mg 3 times daily. 12. Anemia of chronic disease. Continue ferrous sulfate 325 mg twice daily, Aranesp 40 g subcu every 7 days. 13. Obstructive sleep apnea. Patient will have his . CPAP in from home. 14. GI prophylaxis. Continue Protonix. 14. DVT prophylaxis. Heparin subcu. DISCHARGE PLAN Return to [facility] on Impression and plan of care have been directed as dictated by the signing physician. Katelyn Wesley nurse practitioner acting as scribe for signing physician. Objective - Vital Signs Vital signs: Vital Signs Temp 98.1 F 08/14/20 08:00 Pulse 78 08/14/20 08:00 Resp 22 08/14/20 08:00 BP 134/65 08/14/20 08:00 Pulse Ox 99 08/14/20 08:00 Intake & Output 08/13/20 08/14/20 08/14/20 18:59 06:59 18:59 Intake Total 1040 530 240 Output Total 2500 500 Balance -1460 30 240 Intake: Intake, IV Titration 50 Amount Cefepime 1 gm In Sodium 50 Chloride 0.9% 50 ml @ 12. 5 mls/hr IVPB Q12HR [facility] Rx#:[id number] Oral 840 480 240 Hemodialysis 200 Output: Urine 0 80 Stool 420 Hemodialysis 2500 Other: Voiding Method Urinal Urinal Urinal Diaper Diaper # Voids 1 # Bowel Movements 1 - Labs CBC & Chem 7: 08/12/20 11:00 08/14/20 06:49 Labs: Abnormal Lab Results - Last 24 Hours (Table) 08/13/20 08/13/20 08/13/20 Range/Units 10:16 12:00 17:07 Creatinine (0.66-1.25) mg/dL POC Glucose (mg/dL) 160 H 209 H (75-99) mg/dL Ferritin 1530.6 H (22.0-322.0) ng/mL 08/13/20 08/14/20 08/14/20 Range/Units 20:10 06:14 06:49 Creatinine 4.42 H (0.66-1.25) mg/dL POC Glucose (mg/dL) 197 H 159 H (75-99) mg/dL Ferritin (22.0-322.0) ng/mL Microbiology - Last 24 Hours (Table) 08/12/20 15:05 Blood Culture - Preliminary Blood No Growth after 24 hours
[2020-08-14] MEDS: SODIUM CHLORIDE 0.9% 1,000 ML IV SCH (14:22)
[2020-08-14 15:02] VITALS: BMI 33.6
--- NOTE | 2020-08-14 16:48 | PN ---
PROGRESS NOTE DATE OF SERVICE: 08/14/2020 REASON FOR FOLLOWUP: Possible pneumonia. INTERVAL HISTORY: Patient is afebrile. The patient is breathing comfortably. Patient denies having any chest pain or shortness of breath or cough. Has been complaining of feeling nauseated, but did not have any vomiting. No abdominal pain. No diarrhea or constipation. PHYSICAL EXAMINATION: Blood pressure 151/75, pulse of 83, temperature 98.1. He is 95% on room air. General description is a middle-aged male up in the bed in no distress. Respiratory system: Unlabored breathing, decreased intensity of breath sounds. No wheeze. Heart S1, S2. Regular rate and rhythm. Abdomen soft, no tenderness. LABS: Creatinine is 4.42. Blood culture has been negative so far. DIAGNOSTIC IMPRESSION AND PLAN: Patient admitted to the hospital with weakness, mental status changes in this patient who did have a pulmonary infiltrate and concerning for possible pneumonia. Clinically not behaving as such and if the culture remains negative, antibiotic can be safely discontinued. Discussed with admitting physician. MMMELISSAL / BISIN: [id number] /
[2020-08-14] MEDS: MULTIVITAMINS, THERA 1 EACH TAB PO SCH (16:54)
[2020-08-14] MEDS: ASPIRIN 81 MG PO SCH (16:54)
[2020-08-14 16:59] LABS: Glucose,Whole Blood 150 mg/dL (75-99)
[2020-08-14 20:11] LABS: Glucose,Whole Blood 153 mg/dL (75-99)
[2020-08-14] MEDS: MELATONIN 1 MG TAB PO SCH (21:07)
[2020-08-14] MEDS: INSULIN DETEMIR (LEVEMIR) 100 UNIT/ML SYR SQ SCH (21:08)
[2020-08-14] MEDS: SODIUM CHLORIDE 0.65% NASAL SPRAY 44 ML BTL NASAL PRN (23:06)
[2020-08-15] MEDS: FUROSEMIDE 80 MG TAB PO SCH ×2 (05:16→18:21)
[2020-08-15] MEDS: PANTOPRAZOLE 40 MG TABLET PO SCH (05:16)
[2020-08-15] MEDS: hydrALAZINE HCL 20 MG/ML 1 ML VIAL IVP PRN (05:16)
[2020-08-15 06:13] LABS: Glucose,Whole Blood 122 mg/dL (75-99)
--- NOTE | 2020-08-15 08:27 | P.PN ---
Subjective Patient is seen in follow-up for end-stage renal disease. He is maintained on hemodialysis on Wednesday schedule. Tolerating dialysis well. No chest pain or shortness of breath. Riley nauseous last night. No vomiting. Vital signs are stable. General: The patient appeared well nourished and normally developed. HEENT: Head exam is unremarkable. Neck is without jugular venous distension. LUNGS: reath sounds decreased. HEART: Rate and Rhythm are regular. ABDOMEN: Soft, no distention. EXTREMITITES: Trace edema. Objective - Vital Signs Vital signs: Vital Signs Temp 97.9 F 08/15/20 04:00 Pulse 83 08/15/20 04:00 Resp 18 08/15/20 04:00 BP 170/79 08/15/20 04:00 Pulse Ox 96 08/15/20 04:00 Intake & Output 08/14/20 08/15/20 08/15/20 18:59 06:59 18:59 Intake Total 720 50 0 Output Total 125 Balance 720 -75 0 Weight 97.522 kg Intake: Intake, IV Titration 50 Amount Cefepime 1 gm In Sodium 50 Chloride 0.9% 50 ml @ 12. 5 mls/hr IVPB Q12HR [facility] Rx#:[id number] Oral 720 0 Output: Urine 125 Other: Voiding Method Urinal Bedpan Diaper Urinal Diaper # Voids 0 1 # Bowel Movements 1 - Labs CBC & Chem 7: 08/12/20 11:00 08/14/20 06:49 Labs: Abnormal Lab Results - Last 24 Hours (Table) 08/14/20 08/14/20 08/14/20 Range/Units 06:49 11:37 16:57 Creatinine 4.42 H (0.66-1.25) mg/dL POC Glucose (mg/dL) 224 H 150 H (75-99) mg/dL 08/14/20 08/15/20 Range/Units 19:58 06:11 Creatinine (0.66-1.25) mg/dL POC Glucose (mg/dL) 153 H 122 H (75-99) mg/dL Microbiology - Last 24 Hours (Table) 08/12/20 15:05 Blood Culture - Preliminary Blood No Growth after 48 hours Assessment and Plan Plan: Assessment: 1. End-stage renal disease maintained on hemodialysis on Wednesday schedule left upper extremity AV fistula. 2. Anemia of chronic kidney disease. Iron replete. Maintained on Aranesp. 3. Diabetes mellitus. 4. Generalized debility. 5. Hypertension with chronic kidney disease. Stable. 6. Possible pneumonia maintained on antibiotics. Infectious disease following. 7. Chronic kidney disease mineral bone disease maintained on PhosLo. 8. Volume overload. Improved with ultrafiltration. Plan: Currently seen while undergoing hemodialysis. Next treatment on Wednesday. Monitor vancomycin level. Target level near 15.
[2020-08-15] MEDS: INSULIN ASPART (NovoLOG) 100 UNIT/ML VIAL SQ SCH ×4 (10:44→20:51)
[2020-08-15] MEDS: hydrALAZINE HCL 50 MG TAB PO SCH ×4 (10:45→20:50)
[2020-08-15] MEDS: FERROUS SULFATE 325 MG TAB PO SCH ×2 (10:45→18:21)
[2020-08-15] MEDS: CALCIUM ACETATE 667 MG TAB PO SCH ×3 (10:45→18:21)
[2020-08-15] MEDS: CEFEPIME 1 GM in SODIUM CHLORIDE 0.9% 50 ML IVPB SCH (10:46)
[2020-08-15] MEDS: HEPARIN SODIUM,PORCINE/PF 5,000 UNIT/0.5 ML SYRINGE SQ SCH (10:46)
[2020-08-15] MEDS: CLOTRIMAZOLE 1% CREAM 30 GM TUBE TOPICAL SCH ×2 (10:47→23:33)
[2020-08-15] MEDS: SODIUM CHLORIDE 0.9% 1,000 ML IV SCH (10:47)
[2020-08-15 11:52] LABS: Glucose,Whole Blood 113 mg/dL (75-99)
[2020-08-15] MEDS: METOPROLOL TARTRATE 50 MG TAB PO SCH ×2 (12:16→20:50)
--- NOTE | 2020-08-15 13:36 | P.PN ---
Subjective Progress Note Date: 08/15/20 HISTORY OF PRESENT ILLNESS This is a 60-year-old male patient of Dr. 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 Patient was last hospitalized in April which time he was treated for sepsis and MRSA bacteremia of unclear etiology with metabolic encephalopathy vasovagal episode requiring brief CPR and patient was transferred to [facility]. According to the patient's , patient had MRSA sores in the lumbar spine and also some type of cyst cervical fracture and parasitic infection. Patient was discharged to [facility] for subacute rehab and was transferred from there yesterday due to change in mental status and lethargy, increasing fatigue and neck pain. EKG was in normal sinus rhythm with no acute ST changes. He was afebrile, heart rate 79, blood pressure 173/100, pulse ox 92%. WBC 8.5, hemoglobin 8.9, platelet count 173. Letter lites were normal. BUN 64 creatinine 4.12 and blood sugar 237. Alkaline phosphatase 192. TSH 5.340. Ammonia level less than 9. Lactic acid 1.8. Troponin 0.021. Influenza, RSV, SARS Covid PCR not detected. Chest x-ray reveals old patchy a irspace disease bilaterally. Enlargement of cardiac LAD appears similar to prior exam. CAT scan of the brain revealed no acute intracranial abnormality. Patient was seen by nephrology and started on hemodialysis this morning. Case was discussed with neurology and also with the patient's . Decision was made to transfer patient to [facility] for continuity of care. Patient will be transferred today once arrangements are completed. 08/14: Patient is seen today in the cardiac stepdown unit. He is sitting on the edge of the bed and is awake, alert and oriented 3. He is able to provide information about his reason for transfer to the hospital. He does recall that he refused to have MRI yesterday of his neck. He does not want to go to [facility] in this transfer will be canceled. [facility] records were reviewed and patient was treated for osteomyelitis of the lumbar spine. He did not undergo any neurological intervention or surgery. There was fracture at the cervical spine, no infection. Patient complains of redness in the left axilla area but nothing is seen. He complains of hard time getting his words out and that he is falling asleep as well as sentences. Regarding his neck, he states he has had decreased range of motion in his neck since March and he did have a full workup done at [facility]. Patient has history of obst ructive sleep apnea and he has a CPAP at home and recommended that his bring his CPAP in. He states he has not been using it at [facility]. Patient has been seen and followed by neurology and scheduled for hemodialysis tomorrow. Hydralazine was increased. EEG reveals abnormal study suggestive of mild encephalopathy. No epileptiform discharges or seizures. Patient has been afebrile, heart rate 70, blood pressure 134/65, pulse ox 99% on 2 L nasal cannula. Creatinine 4.42. Blood sugars running between 59-224. Vancomycin level 17.5. Blood culture no growth at 24 hours. Patient has been seen by Dr. Presley for possible pneumonia and he is currently on vancomycin and cefepime. Patient's gabapentin is on hold and he is requesting that be resumed. Long discussion with Dr. Lima and this will remain on hold for now. Anticipate possible discharge back to [facility] tomorrow. 08/15: Patient remains awake and alert and mental status is at baseline. Patient states he is feeling terrible and complaining of left-sided chest burning. EKG was obtained which showed atrial fibrillation. Patient does have history of atrial fibrillation but unknown why he is off eliquis amiodarone and metoprolol. Consult with cardiology placed. Patient has been seen and followed by neurology and MRI of the cervical spine, thoracic spine and lumbar spine have been ordered. Patient is undergoing hemodialysis today. Patient is also followed by infectious disease REVIEW OF SYSTEMS Constitutional: No fever, no chills, no night sweats. No weight change. Reported weakness, fatigue or lethargy. No daytime sleepiness. EENT: No headache. No blurred vision or double vision, no loss of vision. No loss of Hearing, no ringing in the ears, no dizziness. No nasal drainage or congestion. No epistaxis. No sore throat. Lungs: No shortness of breath, cough, no sputum production. No wheezing. Cardiovascular: No chest pain, no lower extremity edema. No palpitations. No paroxysmal nocturnal dyspnea. No orthopnea. No lightheadedness or dizziness. No syncopal episodes. Abdominal: No abdominal pain. No nausea, vomiting. No diarrhea. No constipation. No bloody or tarry stools.. No loss of appetite. Genitourinary: No dysuria, increased frequency, urgency. No urinary retention. Musculoskeletal: No myalgias. Noted muscle weakness, no gait dysfunction, no frequent falls. No back pain. Reports neck pain. Integumentary: No wounds, no lesions. No rash or pruritus. No unusual bruising. No change in hair or nails. Neurologic: No aphasia. No facial droop. No change in mentation. No head injury. No headache. No paralysis. No paresthesia. Psychiatric: No depression. No anxiety. No mood swings. Endocrine: Noted abnormal blood sugars. No weight change. PHYSICAL EXAMINATION Gen: This is a 60-year-old male patient resting on the edge of the bed and appears to be in no acute distress. HEENT: Head is atraumatic, normocephalic. Pupils equal, round. Sclerae is anicteric. NECK: Supple. No JVD. No lymphadenopathy. No thyromegaly. LUNGS: Clear to auscultation. No wheezes or rhonchi. No intercostal retractions. HEART: Regular rate and rhythm. 2/6 systolic murmur. ABDOMEN: Soft. Bowel sounds are present. No masses. No tenderness. EXTREMITIES: No pedal edema. No calf tenderness. NEUROLOGICAL: Patient is awake, oriented x3, able to follow simple commands only. Cranial nerves 2 through 12 are grossly intact. ASSESSMENT AND PLAN 1. Metabolic encephalopathy of unclear etiology. Possible pneumonia. Continue cefepime 1 g every 12 hours and vancomycin, pharmacy dosing, consult in place [facility] neurology and infectious disease appreciated. Hold baclofen, gabapentin, [place]. 2. Neck pain, chronic. Reports from [facility]. MRI of the cervical spine, thoracic spine, lumbar spine. 3. Recent treatment for MRSA bacteremia secondary to osteomyelitis of the lumbar spine. Patient completed course of antibiotics. 4. End-stage renal disease on hemodialysis. Consult with nephrology appreciated. Continue PhosLo 667 mg 3 times daily, Aranesp 40 g subcu every 7 days, hemodialysis today. 5. Degenerative disc disease and spinal stenosis. 6. History of coronary artery disease with previous PTCA to LAD and circumflex. 7. Paroxysmal atrial fibrillation. Patient is off eliquis, amiodarone and metoprolol. Etiology consult. 8. Ischemic cardiomyopathy. 9. Diabetes mellitus type 2, insulin requiring. Continue Levemir 5 units at bedtime, add NovoLog scale before meals and at bedtime, 10. Diabetic neuropathy. Hold gabapentin. 11. Hypertension. Continue hydralazine 50 mg 3 times daily. 12. Anemia of chronic disease. Continue ferrous sulfate 325 mg twice daily, Aranesp 40 g subcu every 7 days. 13. Obstructive sleep apnea. Patient will have his . CPAP in from home. 14. GI prophylaxis. Continue Protonix. 18. Chest pain. Troponins ordered, EKG, consult with cardiology. 14. DVT prophylaxis. Heparin subcu. DISCHARGE PLAN Return to [facility] on Impression and plan of care have been directed as dictated by the signing physician. Katelyn Wesley nurse practitioner acting as scribe for signing parker salazar. Objective - Vital Signs Vital signs: Vital Signs Temp 97.9 F 08/15/20 04:00 Pulse 83 08/15/20 04:00 Resp 18 08/15/20 04:00 BP 170/79 08/15/20 04:00 Pulse Ox 96 08/15/20 04:00 Intake & Output 08/14/20 08/15/20 08/15/20 18:59 06:59 18:59 Intake Total 720 50 0 Output Total 125 Balance 720 -75 0 Weight 97.522 kg Intake: Intake, IV Titration 50 Amount Cefepime 1 gm In Sodium 50 Chloride 0.9% 50 ml @ 12. 5 mls/hr IVPB Q12HR [facility] Rx#:[id number] Oral 720 0 Output: Urine 125 Other: Voiding Method Urinal Bedpan Diaper Urinal Diaper # Voids 0 1 # Bowel Movements 1 - Labs CBC & Chem 7: 08/12/20 11:00 08/14/20 06:49 Labs: Abnormal Lab Results - Last 24 Hours (Table) 08/14/20 08/14/20 08/14/20 Range/Units 11:37 16:57 19:58 POC Glucose (mg/dL) 224 H 150 H 153 H (75-99) mg/dL 08/15/20 Range/Units 06:11 POC Glucose (mg/dL) 122 H (75-99) mg/dL Microbiology - Last 24 Hours (Table) 08/12/20 15:05 Blood Culture - Preliminary Blood No Growth after 48 hours
--- NOTE | 2020-08-15 15:04 | P.CRDCN ---
History of Present Illness History of present illness: This is a pleasant 59-year-old male past medical history significant for end-stage renal disease on hemodialysis, coronary artery disease status post PCI of the circumflex and proximal LAD in September 2018., paroxysmal atrial fibrillation (not currently on his home Eliquis), diabetes mellitus, hypertension and dyslipidemia. He follows in the office with Dr. Bowie. We have been constant for patient with left-sided chest pain and atrial fibrillation with rapid ventricular response. Patient was brought to the emergency department with altered mental status at [facility]. Patient was last hospitalized in April 2020, which time he was treated for sepsis and MRSA bacteremia of uncl ear etiology with metabolic encephalopathy vasovagal episode requiring brief CPR and patient was transferred to [facility]. At [facility] patient was apparently treated prostatitis the lumbar spine. He did not undergo any neurological intervention or surgery. He was found to have a fracture of his cervical spine. Patient does have history of sleep apnea was not using his CPAP at [facility]. Patient has been treated as an inpatient with possible pneumonia with IV antibiotics, IV cefepime, IV vancomycin.. CT of the brain showed no acute intracranial abnormality. EEG revealed abnormal study seizure mild encephalopathy. No well-formed discharge or seizures. Blood cultures have been negative growth to date. Patient's mental status improved and he was going to be discharged back to [facility] today however went into atrial fibrillation with RVR and has left-sided chest pain. His left sided chest pain is nonradiating, nonexertional. He states he typically gets left-sided chest pain after he gets dialysis treatment which was today. He's been having some mild shortness of breath and nausea but this has been occurring since the beginning of his admission. He denies palpitations, lightheadedness, dizziness, nausea, vomiting. EKG revealed atrial fibrillation, heart rate 117. Patient's echocardiogram in 04/12/20 revealed an EF of 55-60%, mild mitral regurgitation, mild tricuspid regurgitation, mild aortic valve sclerosis. Patient also underwent YAYO and 04/18/2020 revealed no evidence of endocarditis, or vegetations, mildly thickened with trace aortic insufficiency, moderate tricuspid regurgitation, moderate mitral regurgitation, left atrial appendage without any thrombus. EKG and admission patient was in sinus mechanism. REVIEW OF SYSTEMS At the time of my exam: CONSTITUTIONAL: Denies fever or chills. CARDIOVASCULAR: Positive left-sided chest pain, positive shortness of breath Denies orthopnea, PND or palpitations. RESPIRATORY: Denies cough. GASTROINTESTINAL: Positive nausea Denies abdominal pain, diarrhea, constipation, or vomiting. MUSCULOSKELETAL: Denies myalgias. NEUROLOGIC: Denies numbness, tingling, headacbe or weakness. ENDOCRINE: Denies fatigue, weight change, polydipsia or polyurina. GENITOURINARY: Denies burning, hematuria or urgency with micturation. HEMATOLOGIC: Denies history of anemia or bleeding. PHYSICAL EXAMINATION Blood pressure 113/68 heart rate 120 afebrile and maintaining oxygen saturation 96% on 2L nasal cannula CONSTITUTIONAL: No apparent distress. HEENT: Head is normocephalic. Pupils are equal, round. Sclerae anicteric. Mucous membranes of the mouth are moist. No JVD. No carotid bruit. CHEST EXAMINATION: Lungs are clear to auscultation. No chest wall tenderness is noted on palpation or with deep breathing. HEART EXAMINATION: Irregular rate and rhythm. S1, S2 heard. systolic murmur noted ABDOMEN: Soft, nontender. Positive bowel sounds. EXTREMITIES: 2+ peripheral pulses, 2+ bilateral pitting lower extremity edema and no calf tenderness. Left upper extremity AV fistula with positive bruit and thrill NEUROLOGIC EXAMINATION: Patient is awake, alert and oriented x3. ASSESSMENT Left-sided chest pain, atypical not consistent with acute coronary syndrome. Troponin negative x2, no significant ischemia noted on EKG Paroxysmal atrial fibrillation with rapid ventricular response End-stage renal disease on hemodialysis Coronary artery disease status post PCI to LAD and circumflex Type 2 diabetes Hypertension Dyslipidemia PLAN Patient restarted on his beta alyssa metoprolol tartrate 50 mg twice a day, lat er this afternoon patient converted back to sinus rhythm after one dose of metoprolol tartrate Restarted patient's Eliquis 2.5 mg twice a day Discontinue patient's aspirin Continue statin Continue cardiac telemetry Further recommendations based on clinical course On discharge patient should follow up with Dr. Bowie Nurse Practitioner note has been reviewed, I agree with a documented findings and plan of care. Patient was seen and examined. Past Medical History Past Medical History: Atrial Fibrillation, Coronary Artery Disease (CAD), Heart Failure, Diabetes Mellitus, Dialysis, Eye Disorder, GERD/Reflux, Hearing Disorder / Deafness, Hyperlipidemia, Hypertension, Myocardial Infarction ([place]), Renal Disease, Syncope Additional Past Medical History / Comment(s): IDDM type II, neuropathy bilateral hands/feet, ESRD with hemodialysis on M/W/F, chronic anemia, LVH, Afib with RVR, MIs, chronic CHF, R eye blindness, L eye legally blind, RLS, pt unsure if he has gout, vertigo at times, balance issues at times, stomach ulcer at age 17yrs, sinus problems, very [place] R ear. Last Myocardial Infarction Date:: 08/09/18 History of Any Multi-Drug Resistant Organisms: MRSA Date of last positivie culture/infection: 05/02/20 MDRO Source:: Blood Past Surgical History: Heart Catheterization, Heart Catheterization With Stent Additional Past Surgical History / Comment(s): TTT, PD catheter placement/since removed, 2016 L arm fistula, fistula gram with balloon for stenosis, L eye vitrectomy, thyroid needle aspiration-negative, L leg cyst, colonoscopy with benign polypectomy. port placed in chest Right side. Past Anesthesia/Blood Transfusion Reactions: Postoperative Nausea & Vomiting (PONV) Date of Last Stent Placement:: 03-03-18 Past Psychological History: Anxiety, Depression Additional Psychological History / Comment(s): Pt resides with his spouse, AND SON. He is legally blind L eye and blind in R eye. He is very [place] in R ear. He has a cane and walker which he uses prn. His spouse and son drive. Pt uses glasses and a magnifier to read. He has depression which he states is c onstantly present but not increased. He denies thoughts/plans of suicide. Smoking Status: Former smoker Past Alcohol Use History: None Reported Additional Past Alcohol Use History / Comment(s): Pt started smoking in 1972 and quit in 1995. Past Drug Use History: None Reported - Past Family History Father Family Medical History: Cancer, Coronary Artery Disease (CAD), Hyperlipidemia Additional Family Medical History / Comment(s): Lung/BRAIN CANCER Mother Family Medical History: Diabetes Mellitus, Deep Vein Thrombosis (DVT), Osteoarthritis (OA) Additional Family Medical History / Comment(s): DJD Sister(s) Family Medical History: Diabetes Mellitus Additional Family Medical History / Comment(s): Patient has one sister with diabetes mellitus type 2, SLE, MS. Brother(s) Family Medical History: Diabetes Mellitus Additional Family Medical History / Comment(s): Patient has 4 kids no major medical problems. Daughter(s) Family Medical History: No Reported History Additional Family Medical History / Comment(s): Patient has 2 daughters no major medical problems. Son(s) Family Medical History: No Reported History Additional Family Medical History / Comment(s): Patient has 2 sons no major medical problems. Medications and Allergies Home Medications Medication Instructions Recorded Confirmed Type Calcium Acetate [PhosLo] 667 mg PO TID@0800,1200,1700 08/05/18 08/12/20 History Furosemide [Lasix] 80 mg PO BID@0600,1800 04/13/19 08/12/20 History Triamcinolone 0.1% Ointment 1 applic TOPICAL BID 04/13/19 08/12/20 History [Kenalog] hydrOXYzine pamoate [Vistaril] 50 mg PO QID@00,06,12,18 02/06/20 08/12/20 History Gabapentin 300 mg PO HS@2100 02/17/20 08/12/20 History Pantoprazole [Protonix] 40 mg PO DAILY@0600 02/17/20 08/12/20 History Acetaminophen Tab [Tylenol] 650 mg PO Q6H PRN 08/12/20 08/12/20 History Ammonium Lactate Lotion 1 applic TOPICAL BID 08/12/20 08/12/20 History [Lac-Hydrin 12% Lotion] Aspirin EC [Ecotrin Low Dose] 81 mg PO DAILY@1700 08/12/20 08/12/20 History Baclofen [Lioresal] 10 mg PO Q8H PRN 08/12/20 08/12/20 History Cholestyramine (with Sugar) 4 gm PO BID@0800,1700 08/12/20 08/12/20 History [Cholestyramine Packet] Ciclopirox Olamine [Loprox 0.77% 1 applic TOPICAL BID 08/12/20 08/12/20 History cream] Epoetin Luis [Epogen] 4,000 unit SQ TUTHSA 08/12/20 08/12/20 History Ferrous Sulfate [Feosol] 325 mg PO BID@0800,1700 08/12/20 08/12/20 History HYDROcodone/APAP 5-325MG [Emmaus 1 tab PO Q6HR PRN 08/12/20 08/12/20 History 5-325] INSULIN ASPART (NovoLOG) [NovoLOG See Protocol SQ ACHS 08/12/20 08/12/20 History (formulary)] Insulin Detemir (Levemir) [Levemir] 10 unit SQ HS@2100 08/12/20 08/12/20 History Magnesium Hydroxide [Milk of 7,200 mg PO DAILY PRN 08/12/20 08/12/20 History Magnesia Concentrate] Melatonin 1 mg PO HS 08/12/20 08/12/20 History Menthol [Biofreeze] 1 applic TOPICAL TID 08/12/20 08/12/20 History Menthol-Zinc Oxide Oint 1 applic TOPICAL BID 08/12/20 08/12/20 History [Calmoseptine Oint] Midodrine HCl [ProAmatine] 10 mg PO DAILY@0800 08/12/20 08/12/20 History Multivitamins, Thera [Multivitamin 1 tab PO DAILY@1700 08/12/20 08/12/20 History (formulary)] Na Phos,M-B/Na Phos,Di-Ba [Fleet 133 ml RECTAL DAILY PRN 08/12/20 08/12/20 History Adult] Sennosides/Docusate Sodium 1 tab PO Q12H PRN 08/12/20 08/12/20 History [Senna-S 8.6-50 mg Tablet] bisacodyL [Dulcolax] 10 mg RECTAL DAILY PRN 08/12/20 08/12/20 History hydrALAZINE HCL 10 mg PO BID@0800,2100 08/12/20 08/12/20 History Allergies Allergy/AdvReac Type Severity Reaction Status Date / Time bumetanide [From Bumex] Allergy Hallucinati Verified 08/12/20 12:19 ons codeine Allergy Unknown Verified 08/12/20 12:19 Penicillins Allergy Anaphylaxis Verified 08/12/20 12:19 sulfadiazine Allergy Unknown Verified 08/12/20 12:19 morphine AdvReac Confusion Verified 08/12/20 12:19 rivaroxaban [From Xarelto] AdvReac Bloody Nose Verified 08/12/20 12:19 spironolactone AdvReac Hallucinati Verified 08/12/20 12:19 ons All antibiotics except Keflex Allergy Unknown Uncoded 08/12/20 10:45 Childhood Physical Exam Vitals: Vital Signs Temp Pulse Resp BP Pulse Ox 08/15/20 04:00 97.9 F 83 18 170/79 96 08/14/20 23:41 80 18 08/14/20 23:39 97.4 F L 79 16 118/58 96 08/14/20 20:00 98.1 F 85 18 167/79 92 L 08/14/20 16:00 97.8 F 81 20 183/88 100 08/14/20 12:00 86 20 161/75 95 Intake and Output 08/14/20 08/15/20 08/15/20 22:59 06:59 14:59 Intake Total 240 50 0 Output Total 100 25 Balance 140 25 0 Intake: Intake, IV Titration 50 Amount Cefepime 1 gm In Sodium 50 Chloride 0.9% 50 ml @ 12. 5 mls/hr IVPB Q12HR [facility] Rx#:[id number] Oral 240 0 Output: Urine 100 25 Other: Voiding Method Urinal Bedpan Diaper Urinal Diaper # Voids 1 # Bowel Movements 1 Results 08/12/20 11:00 08/14/20 06:49 Current Medications Generic Name Dose Route Start Last Admin Trade Name Freq PRN Reason Stop Dose Admin Acetaminophen 650 mg 08/12/20 18:16 08/14/20 16:55 Acetaminophen Tab 325 Mg Tab PO 650 mg Q6H PRN Administration Pain or Fever > 100.5 Albuterol/Ipratropium 3 ml 08/12/20 20:25 08/13/20 03:01 Ipratropium-Albuterol 3 Ml Neb INHALATION 3 ml RT-QID PRN Administration Dyspnea Aspirin 81 mg 08/13/20 17:00 08/14/20 16:54 Aspirin 81 Mg PO 81 mg DAILY@1700 [facility] Administration Calcium Acetate 667 mg 08/13/20 08:00 08/14/20 16:54 Calcium Acetate 667 Mg Tab PO 667 mg TID@0800,1200,1700 JLUIS Administration Clotrimazole 1 applic 08/13/20 21:00 08/14/20 21:03 Clotrimazole 1% Cream 30 Gm Tube TOPICAL 1 applic BID JLUIS Administration Darbepoetin Luis 40 mcg 08/13/20 12:00 08/13/20 20:11 Darbepoetin Lius 40 Mcg/0.4 Ml Syringe SQ 40 mcg Q7D JLUIS Administration Ferrous Sulfate 325 mg 08/13/20 08:00 08/14/20 16:54 Ferrous Sulfate 325 Mg Tab PO 325 mg BID@0800,1700 JLUIS Administration Furosemide 80 mg 08/13/20 06:00 08/15/20 05:16 Furosemide 80 Mg Tab PO 80 mg BID@0600,1800 J[facility] Administration Heparin Sodium (Porcine) 5,000 unit 08/13/20 21:00 08/14/20 21:02 Heparin Sodium,Porcine/Pf 5,000 Unit/0.5 Ml Syringe SQ 5,000 unit Q12HR J[facility]IS Administration Hydralazine HCl 10 mg 08/13/20 10:01 08/15/20 05:16 Hydralazine Hcl 20 Mg/Ml 1 Ml Vial IVP 10 mg Q4HR PRN Administration Blood Pressure - High Hydralazine HCl 75 mg 08/14/20 16:00 08/14/20 21:07 Hydralazine Hcl 50 Mg Tab PO 75 mg TID JLUIS Administration Sodium Chloride 1,000 mls @ 20 mls/hr 08/12/20 14:00 08/14/20 14:22 Saline 0.9% IV Not Given .Q24H [facility]IS Cefepime HCl 1 gm/ Sodium 50 mls @ 12.5 mls/hr 08/12/20 21:00 08/14/20 21:02 Chloride IVPB 12.5 mls/hr Q12HR [facility] Administration Insulin Aspart 0 unit 08/13/20 17:30 08/14/20 21:08 Insulin Aspart (Novolog) 100 Unit/Ml Vial SQ 1 unit ACHS J[facility] Administration Protocol Insulin Detemir 5 unit 08/12/20 21:00 08/14/20 21:08 Insulin Detemir (Levemir) 100 Unit/Ml Syr SQ 5 unit HS@2100 [facility] Administration Lactulose 15 gm 08/14/20 10:11 08/14/20 11:54 Lactulose 20 Gm/30 Ml Cup PO 15 gm TID PRN Administration Constipation Melatonin 1 mg 08/12/20 21:00 08/14/20 21:07 Melatonin 1 Mg Tab PO 1 mg HS JLUIS Administration Metoprolol Tartrate 10 mg 08/12/20 20:27 08/13/20 20:14 Metoprolol Tartrate 5 Mg/5 Ml Vial IVP 10 mg Q6HR PRN Administration Blood Pressure - High Miscellaneous Information 1 each 08/12/20 13:54 Vancomycin Iv Per Pharmacy 1 Each Misc MISCELLANE DIRECTED PRN Per Protocol Protocol Multivitamins 1 each 08/13/20 17:00 08/14/20 16:54 Multivitamins, Thera 1 Each Tab PO 1 each DAILY@1700 JLUIS Administration Naloxone HCl 0.2 mg 08/12/20 13:53 Naloxone 0.4 Mg/Ml 1 Ml Vial IV Q2M PRN Opioid Reversal Ondansetron HCl 4 mg 08/13/20 10:05 08/13/20 10:19 Ondansetron 4 Mg/2 Ml Vial IVP 4 mg Q6HR PRN Administration Nausea And Vomiting Pantoprazole Sodium 40 mg 08/13/20 06:00 08/15/20 05:16 Pantoprazole 40 Mg Tablet PO 40 mg DAILY@0600 JLUIS Administration Sodium Chloride 2 spray 08/14/20 22:00 08/14/20 23:06 Sodium Chloride 0.65% Nasal [place] 44 Ml Btl NASAL 2 spray QID PRN Administration Dry Nasal Passages Intake and Output 08/14/20 08/15/20 08/15/20 22:59 06:59 14:59 Intake Total 240 50 0 Output Total 100 25 Balance 140 25 0 Intake: Intake, IV Titration 50 Amount Cefepime 1 gm In Sodium 50 Chloride 0.9% 50 ml @ 12. 5 mls/hr IVPB Q12HR [facility] Rx#:[id number] Oral 240 0 Output: Urine 100 25 Other: Voiding Method Urinal Bedpan Diaper Urinal Diaper # Voids 1 # Bowel Movements 1 08/12/20 11:00 08/14/20 06:49
[2020-08-15 16:45] LABS: Glucose,Whole Blood 170 mg/dL (75-99)
--- NOTE | 2020-08-15 17:23 | P.PN ---
Subjective Progress Note Date: 08/15/20 Per the patient nurse the seems that the primary team the decided not to go ahead with a transfer. Patient continues to have headache neck pain lower back pain. He is more awake following commands denies any nausea vomiting. EKG is reported as atrial fibrillation and therefore cardiology is on board. Patient once to go ahead with the MRIs. Objective - Vital Signs Vital signs: Vital Signs Temp 97.8 F 08/15/20 11:51 Pulse 73 08/15/20 16:00 Resp 18 08/15/20 16:00 BP 115/66 08/15/20 16:00 Pulse Ox 96 08/15/20 16:00 Intake & Output 08/14/20 08/15/20 08/15/20 18:59 06:59 18:59 Intake Total 720 50 940 Output Total 125 1798 Balance 720 -75 -858 Weight 97.522 kg Intake: Intake, IV Titration 50 Amount Cefepime 1 gm In Sodium 50 Chloride 0.9% 50 ml @ 12. 5 mls/hr IVPB Q12HR [facility] Rx#:[id number] Oral 720 240 Hemodialysis 700 Output: Urine 125 75 Stool 423 Hemodialysis 1300 Other: Voiding Method Urinal Bedpan Bedpan Diaper Urinal Urinal Diaper Diaper # Voids 0 1 # Bowel Movements 1 - Exam GENERAL: The patient is lying in bed is in moderate acute distress. NEUROLOGICAL: Higher mental function: The patient is awake, alert, oriented to self, place and time. He is able to name objects correctly (pen, watch cup). Patient is following commands. No aphasia and no neglect. Cranial nerves: The pupils are round, equal and reactive to light. Patient is legally blind over the right eye. Visual field full over the left. Extraocular movement is intact no nystagmus is noted over the left. Facial sensation is normal to touch throughout. The facial strength is normal throughout. Hearing is severely decreased to hand rub. Tongue is midline and moved [id number] without any difficulty. No dysarthria is noted. Shoulder shrug is normal bilaterally. Motor: Gait is deferred. The strength is left arm extension is 4+., flexion is 4+ to 5-. Otherwise 5/5. Lower is able to lift above gravity without focality. Normal tone and bulk. Cerebellum: Normal finger to nose bilaterally. Sensation: Sensation is normal to touch throughout. Reflexes (right/left): 1+ in upper while lowers are ) bilaterally. Plantars are mute bilaterally. - Labs CBC & Chem 7: 08/12/20 11:00 08/14/20 06:49 Labs: Abnormal Lab Results - Last 24 Hours (Table) 08/14/20 08/15/20 08/15/20 Range/Units 19:58 06:11 11:51 POC Glucose (mg/dL) 153 H 122 H 113 H (75-99) mg/dL Troponin I (0.000-0.034) ng/mL 08/15/20 08/15/20 Range/Units 13:45 16:42 POC Glucose (mg/dL) 170 H (75-99) mg/dL Troponin I 0.300 H* (0.000-0.034) ng/mL Microbiology - Last 24 Hours (Table) 08/12/20 15:05 Blood Culture - Preliminary Blood No Growth after 48 hours Assessment and Plan Assessment: Altered mental status likely due to metabolic encephalopathy-mentation improved Delerium due to above--resolved Worsening of neck pain (Was told he had Parasitic infection with recent treatment of cervical discitis at [facility]). Rule out any remission of infection. History of septicemia (with MRSA souce in the lumbar spine was notified of this at [facility]) Headache possibly due to uncontrolled hypertension vs underlying infection. Elevated Hypertension Cervical fracture (per were notifed of this at [facility]) Bilateral lower extremity weakness with falls Peripheral neuropathy Moderate lumbar spondylosis L4-L5 and L5-S1 Diabetes mellitus that is a poorly controlled End-stage renal disease on dialysis Atrial fibrillation Legally blind Hyperlipidemia History of cardiac arrest on 04-11 History of coronary artery disease status post stent Plan: * CT of the head is reported as "no acute intracranial abnormality seen. Prominent extra cranial arterial calcification. Query underlying diabetes or chronic kidney disease". * TSH is 5.340 which is slightly elevated but the free T4 is 1.53 which is considered within normal limits. * Vitamin B12 is more than 4000 on 04/13/2020 which is above normal limits. The red blood cell folate is a thousand 528 which is also above normal limits. * Routine EEG is an abnormal routine EEG. The mild generalized background slowing is suggestive of mild encephalopathy. There are no focal slowing, epileptiform discharges or seizure in the EEG. * I agree of holding gabapentin, avoid any narcotic opiates or sedation which can affect patient's mentation. * I recommend repeat MRI of the brain cervical supine, thoracic and lumbar, and to be coordinated with dialysis (now he is an agreement of getting them done). * Infection disease is on board. * Nephrology is on board. * His bilateral lower extremity weakness with falls possibly due to diabetic neuropathy vs plexopathy versus mononeuritis multiplex. We recommended the patient to get EMG with nerve conduction study as an outpatient. * We'll defer the rest of the medical management to primary team. The plan is discussed with the patient and his nurse. Dru Nixon M.D. Neuro-hospitalist Time with Patient: Less than 30
--- NOTE | 2020-08-15 17:44 | PN ---
PROGRESS NOTE DATE OF SERVICE: 08/15/2020 REASON FOR FOLLOWUP: Abnormal x-ray and a question of possible pneumonia. INTERVAL HISTORY: The patient remains to be afebrile. The patient is breathing comfortably. The patient is complaining of chest pain. No vomiting or abdominal pain or diarrhea. PHYSICAL EXAMINATION: Blood pressure 113/60 with a pulse of 90, temperature is 97.8. He is 96% on room air. The patient is a middle-aged male lying in bed in no distress. Respiratory system: Unlabored breathing, decreased BS. No wheeze. Heart S1, S2. Regular rate and rhythm. LABS: Troponin is 0.03. Vanco random is 27.9. Blood culture has been negative. DIAGNOSTIC IMPRESSION AND PLAN: Patient admitted to the hospital with mental status changes and chest pain. This patient did not have any fever, elevated white count. No cough and culture have been negative. We will go ahead and discontinue his antibiotic therapy and monitor the patient closely off antibiotics. Continue supportive care. MMODL / IJN: [id number] /
[2020-08-15] MEDS ORDERED: HEPARIN SODIUM 1,000 UN/ML (10ML VL) IV PRN (18:09)
[2020-08-15] MEDS: MULTIVITAMINS, THERA 1 EACH TAB PO SCH (18:21)
[2020-08-15] MEDS: SODIUM CHLORIDE 0.65% NASAL SPRAY 44 ML BTL NASAL PRN (18:22)
[2020-08-15 19:41] LABS: Partial Thromboplastin Time 24.9 sec (22.0-30.0); Prothrombin Time 11.1 sec (9.0-12.0)
[2020-08-15 20:45] LABS: Glucose,Whole Blood 181 mg/dL (75-99)
[2020-08-15] MEDS: INSULIN DETEMIR (LEVEMIR) 100 UNIT/ML SYR SQ SCH (20:50)
[2020-08-15] MEDS: MELATONIN 1 MG TAB PO SCH (20:51)
[2020-08-15] MEDS: HEPARIN SOD,PORK IN 0.45% NACL 25,000 UNIT in 0.45% NACL 1 250ML.BAG IV SCH (20:54)
[2020-08-15] MEDS ORDERED: APIXABAN 2.5 MG TABLET PO SCH (21:00)
[2020-08-16 04:58] LABS: Magnesium 1.9 mg/dL (1.6-2.3); Potassium 4.2 mmol/L (3.5-5.1)
[2020-08-16 04:59] LABS: INR 1.1 (<1.2); Partial Thromboplastin Time 28.5 sec (22.0-30.0); Prothrombin Time 11.3 sec (9.0-12.0)
[2020-08-16] MEDS: PANTOPRAZOLE 40 MG TABLET PO SCH (04:59)
[2020-08-16] MEDS: FUROSEMIDE 80 MG TAB PO SCH ×2 (04:59→17:21)
[2020-08-16] MEDS: ACETAMINOPHEN TAB 325 MG TAB PO PRN (05:00)
[2020-08-16 06:33] LABS: Glucose,Whole Blood 121 mg/dL (75-99)
[2020-08-16] MEDS: FERROUS SULFATE 325 MG TAB PO SCH ×2 (08:08→17:21)
[2020-08-16] MEDS: METOPROLOL TARTRATE 50 MG TAB PO SCH ×2 (08:08→21:20)
[2020-08-16] MEDS: ATORVASTATIN 40 MG TAB PO SCH (08:08)
[2020-08-16] MEDS: CLOTRIMAZOLE 1% CREAM 30 GM TUBE TOPICAL SCH ×2 (08:08→22:33)
[2020-08-16] MEDS: CALCIUM ACETATE 667 MG TAB PO SCH ×3 (08:08→17:21)
[2020-08-16] MEDS: INSULIN ASPART (NovoLOG) 100 UNIT/ML VIAL SQ SCH ×4 (08:08→21:21)
[2020-08-16] MEDS: hydrALAZINE HCL 50 MG TAB PO SCH ×3 (08:08→21:20)
--- NOTE | 2020-08-16 09:38 | P.PN ---
Subjective Patient is seen in follow-up for end-stage renal disease. He is maintained on hemodialysis on Wednesday schedule. No chest pain or shortness of breath. Blood pressure stable. No active complaints. Vital signs are stable. General: The patient appeared well nourished and normally developed. HEENT: Head exam is unremarkable. Neck is without jugular venous distension. LUNGS: reath sounds decreased. HEART: Rate and Rhythm are regular. ABDOMEN: Soft, no distention. EXTREMITITES: Trace edema. Objective - Vital Signs Vital signs: Vital Signs Temp 98.0 F 08/16/20 08:00 Pulse 71 08/16/20 08:00 Resp 20 08/16/20 08:00 BP 151/73 08/16/20 08:00 Pulse Ox 94 L 08/16/20 08:00 Intake & Output 08/15/20 08/16/20 08/16/20 18:59 06:59 18:59 Intake Total 1180 142.667 Output Total 1798 52 Balance -618 90.667 Weight 95.1 kg Intake: Intake, IV Titration 142.667 Amount Heparin Sod,Pork in 0.45% 102.667 NaCl 25,000 unit In 0.45 % NaCl 1 250ml.bag @ 10. 254 UNITS/KG/HR 10 mls/hr IV .Q24H [facility] Rx#: [id number] Sodium Chloride 0.9% 1, 40 000 ml @ 20 mls/hr IV . Q24H [facility] Rx#:[id number] Oral 480 Hemodialysis 700 Output: Urine 75 50 Stool 423 2 Hemodialysis 1300 Other: Voiding Method Bedpan Bedpan Urinal Urinal Diaper Diaper # Bowel Movements 1 - Labs CBC & Chem 7: 08/12/20 11:00 08/16/20 04:25 Labs: Abnormal Lab Results - Last 24 Hours (Table) 08/15/20 08/15/20 08/15/20 Range/Units 11:51 13:45 16:14 POC Glucose (mg/dL) 113 H (75-99) mg/dL Troponin I 0.300 H* 2.040 H* (0.000-0.034) ng/mL 08/15/20 08/15/20 08/16/20 Range/Units 16:42 20:42 06:27 POC Glucose (mg/dL) 170 H 181 H 121 H (75-99) mg/dL Troponin I (0.000-0.034) ng/mL Microbiology - Last 24 Hours (Table) 08/12/20 15:05 Blood Culture - Preliminary Blood No Growth after 72 hours Assessment and Plan Plan: Assessment: 1. End-stage renal disease maintained on hemodialysis on Wednesday schedule left upper extremity AV fistula. 2. Anemia of chronic kidney disease. Iron replete. Maintained on Aranesp. 3. Diabetes mellitus. 4. Generalized debility. 5. Hypertension with chronic kidney disease. Stable. 6. Possible pneumonia s/p antibiotics. Infectious disease following. 7. Chronic kidney disease mineral bone disease maintained on PhosLo. 8. Volume overload. Improved with ultrafiltration. Plan: Hemodialysis tomorrow. Avoid MRI with contrast. Okay to do CT angiogram if needed.
[2020-08-16] MEDS ORDERED: DIAZEPAM 5 MG/ML 2 ML INJ IVP STA (10:35)
[2020-08-16 12:14] LABS: Glucose,Whole Blood 139 mg/dL (75-99)
--- NOTE | 2020-08-16 14:57 | MR ---
EXAMINATION TYPE: MR brain wo con DATE OF EXAM: 08/16/2020 COMPARISON: None HISTORY: Weakness, lethargic. CONTRAST: Performed utilizing 0 mL intravenous Gadavist gadolinium contrast. TECHNIQUE: Multiplanar, multiecho imaging on a 3.0 Genie magnet is performed through the brain. Stud y is performed within 24 hours of arrival to the hospital. Motion artifact limits the examination The craniovertebral junction is tight. However, no cord compression is evident.. The pituitary is no rmal. Diffusion-weighted imaging is performed. No abnormal hyperintensity is present to suggest an acute i ntracranial infarct or acute ischemic change. There is mild periventricular white matter hyperintensity on inversion recovery weighted sequences bunn ggesting chronic ischemic change. Focal suspicious changes associated with some parasitic infections are not evident. Ventricles and sulci are prominent for the patient age. No suspicious subcortical changes or extra-axial collections to suggest significant infectious etiolo gies. IMPRESSIONS: 1. No suspicious changes to suggest an acute intracranial process. 2. Mild age-related atrophy. Some minimal appearing periventricular white matter changes may be prese nt.
--- NOTE | 2020-08-16 15:11 | P.PN ---
Subjective Progress Note Date: 08/16/20 HISTORY OF PRESENT ILLNESS This is a 60-year-old male patient of Dr. 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 Patient was last hospitalized in April which time he was treated for sepsis and MRSA bacteremia of unclear etiology with metabolic encephalopathy vasovagal episode requiring brief CPR and patient was transferred to [facility]. According to the patient's , patient had MRSA sores in the lumbar spine and also some type of cyst cervical fracture and parasitic infection. Patient was discharged to [facility] for subacute rehab and was transferred from there yesterday due to change in mental status and lethargy, increasing fatigue and neck pain. EKG was in normal sinus rhythm with no acute ST changes. He was afebrile, heart rate 79, blood pressure 173/100, pulse ox 92%. WBC 8.5, hemoglobin 8.9, platelet count 173. Letter lites were normal. BUN 64 creatinine 4.12 and blood sugar 237. Alkaline phosphatase 192. TSH 5.340. Ammonia level less than 9. Lactic acid 1.8. Troponin 0.021. Influenza, RSV, SARS Covid PCR not detected. Chest x-ray reveals old patchy a irspace disease bilaterally. Enlargement of cardiac LAD appears similar to prior exam. CAT scan of the brain revealed no acute intracranial abnormality. Patient was seen by nephrology and started on hemodialysis this morning. Case was discussed with neurology and also with the patient's . Decision was made to transfer patient to [facility] for continuity of care. Patient will be transferred today once arrangements are completed. 08/14: Patient is seen today in the cardiac stepdown unit. He is sitting on the edge of the bed and is awake, alert and oriented 3. He is able to provide information about his reason for transfer to the hospital. He does recall that he refused to have MRI yesterday of his neck. He does not want to go to [facility] in this transfer will be canceled. [facility] records were reviewed and patient was treated for osteomyelitis of the lumbar spine. He did not undergo any neurological intervention or surgery. There was fracture at the cervical spine, no infection. Patient complains of redness in the left axilla area but nothing is seen. He complains of hard time getting his words out and that he is falling asleep as well as sentences. Regarding his neck, he states he has had decreased range of motion in his neck since March and he did have a full workup done at [facility]. Patient has history of obst ructive sleep apnea and he has a CPAP at home and recommended that his bring his CPAP in. He states he has not been using it at [facility]. Patient has been seen and followed by neurology and scheduled for hemodialysis tomorrow. Hydralazine was increased. EEG reveals abnormal study suggestive of mild encephalopathy. No epileptiform discharges or seizures. Patient has been afebrile, heart rate 70, blood pressure 134/65, pulse ox 99% on 2 L nasal cannula. Creatinine 4.42. Blood sugars running between 59-224. Vancomycin level 17.5. Blood culture no growth at 24 hours. Patient has been seen by Dr. Presley for possible pneumonia and he is currently on vancomycin and cefepime. Patient's gabapentin is on hold and he is requesting that be resumed. Long discussion with Dr. Lima and this will remain on hold for now. Anticipate possible discharge back to [facility] tomorrow. 08/15: Patient remains awake and alert and mental status is at baseline. Patient states he is feeling terrible and complaining of left-sided chest burning. EKG was obtained which showed atrial fibrillation. Patient does have history of atrial fibrillation but unknown why he is off eliquis amiodarone and metoprolol. Consult with cardiology placed. Patient has been seen and followed by neurology and MRI of the cervical spine, thoracic spine and lumbar spine have been ordered. Patient is undergoing hemodialysis today. Patient is also followed by infectious disease 08/16: Patient was seen by cardiology yesterday during the day and EKG showed atrial fibrillation with RVR. Patient was started on metoprolol 50 mg twice daily and eliquis and subsequently converted to sinus rhythm. Patient had a rep eat troponin come back yesterday evening at 2.04 and heparin drip was started and eliquis was placed on hold. Patient was made nothing by mouth and awaiting determination from cardiology for plan. MRI of the brain revealed no suspicious changes to suggest an acute intracranial process. Mild age-related atrophy. Some minimal appearing. Ventricular white matter changes may be present. MRI of the cervical and lumbar spine report is pending. Dr. Presley has discontinued all antibiotics. Patient is awake and alert and oriented at baseline. No neurological deficits but complains of pain in the neck and back. He has been afebrile, heart rate 71, blood pressure 151/73, pulse ox 93% on room air. REVIEW OF SYSTEMS Constitutional: No fever, no chills, no night sweats. No weight change. Reported weakness, fatigue or lethargy. No daytime sleepiness. EENT: No headache. No blurred vision or double vision, no loss of vision. No loss of Hearing, no ringing in the ears, no dizziness. No nasal drainage or congestion. No epistaxis. No sore throat. Lungs: No shortness of breath, cough, no sputum production. No wheezing. Cardiovascular: No chest pain-denies, no lower extremity edema. No palpitations. No paroxysmal nocturnal dyspnea. No orthopnea. No ligh theadedness or dizziness. No syncopal episodes. Abdominal: No abdominal pain. No nausea, vomiting. No diarrhea. No constipation. No bloody or tarry stools. No loss of appetite. Genitourinary: No dysuria, increased frequency, urgency. No urinary retention. Musculoskeletal: No myalgias. Noted muscle weakness, no gait dysfunction, no frequent falls. No back pain. Reports neck pain. Integumentary: No wounds, no lesions. No rash or pruritus. No unusual bruising. No change in hair or nails. Neurologic: No aphasia. No facial droop. No change in mentation. No head injury. No headache. No paralysis. No paresthesia. Psychiatric: No depression. No anxiety. No mood swings. Endocrine: Noted abnormal blood sugars. No weight change. PHYSICAL EXAMINATION Gen: This is a 60-year-old male patient resting on the edge of the bed and appears to be in no acute distress. HEENT: Head is atraumatic, normocephalic. Pupils equal, round. Sclerae is anicteric. NECK: Supple. No JVD. No lymphadenopathy. No thyromegaly. LUNGS: Clear to auscultation. No wheezes or rhonchi. No intercostal retractions. HEART: Regular rate and rhythm. 2/6 systolic murmur. ABDOMEN: Soft. Bowel sounds are present. No masses. No tenderness. EXTREMITIES: No pedal edema. No calf tenderness. NEUROLOGICAL: Patient is awake, oriented x3, able to follow simple commands only. Cranial nerves 2 through 12 are grossly intact. ASSESSMENT AND PLAN 1. Metabolic encephalopathy of unclear etiology. Pneumonia ruled out. Possibly related to medication effect. Consults with neurology and infectious disease appreciated. Hold baclofen, gabapentin, [place]. 2. Neck pain, chronic. Reports from [facility]. MRI of the cervical spine, lumbar spine report pending-. 3. Recent treatment for MRSA bacteremia secondary to osteomyelitis of the lumbar spine. Patient completed course of antibiotics. 4. End-stage renal disease on hemodialysis. Consult with nephrology appreciated. Continue PhosLo 667 mg 3 times daily, Aranesp 40 g subcu every 7 days, hemodialysisscheduled per nephrology. 5. Degenerative disc disease and spinal stenosis. 6. History of coronary artery disease with previous PTCA to LAD and circumflex. 7. Paroxysmal atrial fibrillation With episode of RVR. Cardiology consult appreciated. Patient started on metoprolol 50 mg twice daily. Eliquis is on hold while patient is on heparin drip. 8. Ischemic cardiomyopathy. 9. Diabetes mellitus type 2, insulin requiring. Continue Levemir 5 units at bedtime, add NovoLog scale before meals and at bedtime, 10. Diabetic neuropathy. Hold gabapentin. 11. Hypertension. Continue hydralazine 50 mg 3 times daily. 12. Anemia of chronic disease. Continue ferrous sulfate 325 mg twice daily, Aranesp 40 g subcu every 7 days. 13. Obstructive sleep apnea. Patient will have his . CPAP in from home. 14. GI prophylaxis. Continue Protonix. 18. Chest pain With elevated troponin, possible non-ST elevated myocardial infarction. Patient is on heparin drip. Cardiology consult. 14. DVT prophylaxis. Heparin subcu. DISCHARGE PLAN Return to [facility] on Wednesday Impression and plan of care have been directed as dictated by the signing physician. Katelyn Wesley nurse practitioner acting as scribe for signing physician. Objective - Vital Signs Vital signs: Vital Signs Temp 98.0 F 08/16/20 08:00 Pulse 71 08/16/20 08:00 Resp 20 08/16/20 08:00 BP 151/73 08/16/20 08:00 Pulse Ox 94 L 08/16/20 08:00 Intake & Output 08/15/20 08/16/20 08/16/20 18:59 06:59 18:59 Intake Total 1180 142.667 Output Total 1798 52 Balance -618 90.667 Weight 95.1 kg Intake: Intake, IV Titration 142.667 Amount Heparin Sod,Pork in 0.45% 102.667 NaCl 25,000 unit In 0.45 % NaCl 1 250ml.bag @ 10. 254 UNITS/KG/HR 10 mls/hr IV .Q24H JLUIS Rx#: [id number] Sodium Chloride 0.9% 1, 40 000 ml @ 20 mls/hr IV . Q24H JLUIS Rx#:[id number] Oral 480 Hemodialysis 700 Output: Urine 75 50 Stool 423 2 Hemodialysis 1300 Other: Voiding Method Bedpan Bedpan Urinal Urinal Diaper Diaper # Bowel Movements 1 - Labs CBC & Chem 7: 08/12/20 11:00 08/16/20 04:25 Labs: Abnormal Lab Results - Last 24 Hours (Table) 08/15/20 08/15/20 08/15/20 Range/Units 11:51 13:45 16:14 POC Glucose (mg/dL) 113 H (75-99) mg/dL Troponin I 0.300 H* 2.040 H* (0.000-0.034) ng/mL 08/15/20 08/15/20 08/16/20 Range/Units 16:42 20:42 06:27 POC Glucose (mg/dL) 170 H 181 H 121 H (75-99) mg/dL Troponin I (0.000-0.034) ng/mL Microbiology - Last 24 Hours (Table) 08/12/20 15:05 Blood Culture - Preliminary Blood No Growth after 72 hours
[2020-08-16] MEDS: SODIUM CHLORIDE 0.9% 1,000 ML IV SCH (15:42)
[2020-08-16] MEDS: HEPARIN SOD,PORK IN 0.45% NACL 25,000 UNIT in 0.45% NACL 1 250ML.BAG IV SCH (16:00)
--- NOTE | 2020-08-16 16:38 | MR ---
EXAMINATION TYPE: MR cspine/lspine wo con DATE OF EXAM: 08/16/2020 COMPARISON: T abdomen pelvis 04/18/2020, CT cervical spine 04/10/2020 HISTORY: Weakness, lethargic TECHNIQUE: Multiplanar, multisequence imaging of the lumbar spine is performed without IV contrast. FINDINGS: Cervical spine MRI: There is extensive motion present. Cervical vertebral bodies are thought to show preserved height, there is associated spondylosis, some loss of disc height signal present at interve rtebral levels, C4-5, C5-6 with endplate discogenic marrow signal change. There is multilevel disc bu lging, posterior extension endplate disc complex. Suspect there is multilevel foraminal encroachment. impression: Exam is limited by motion. There are degenerative disc changes. Lumbar spine MRI: There is artifact on the exam. Lumbar vertebral bodies thought to show preserved height. There is mul tilevel spondylosis. Disc spaces relatively maintained. Multilevel facet arthropathy changes are pres ent. No evident spinal stenosis. The conus is obscured. Posterior extension of endplate disc complex effaces the anterior thecal sac at L5-S1. Possible transitional vertebral body S1. IMPRESSION: Exam is limited. There are degenerative disc changes, facet arthropathy.
[2020-08-16 16:50] LABS: Glucose,Whole Blood 179 mg/dL (75-99)
--- NOTE | 2020-08-16 17:12 | PN ---
PROGRESS NOTE DATE OF SERVICE: 08/16/2020 REASON FOR FOLLOWUP: Possible infection/pneumonia. INTERVAL HISTORY: Patient is currently afebrile. The patient is on room air. The patient denies having any chest pain. No shortness of breath or cough. No nausea, no vomiting. No abdominal pain or diarrhea. Overall feeling better. PHYSICAL EXAMINATION: Blood pressure 146/63 with a pulse of 71, temperature 98. He is 94% on room air. General description is a middle-aged male up in the bed in no distress. Respiratory system: Unlabored breathing, decreased breath sounds at the base. No wheeze. Heart: S1, S2. Regular rate and rhythm. Abdomen soft, no tenderness. LABS: INR is 1.1. Culture has been negative. DIAGNOSTIC IMPRESSION AND PLAN: Patient admitted to the hospital with chest pain, some mental status changes, some changes seen on the chest x-ray with concern for possible pneumonia, clinically not behaving as pneumonia. The patient's culture has been negative. Afebrile. White count normal. We will monitor the patient closely off antibiotic therapy and continue supportive care. MMODL / IJN: [id number] /
[2020-08-16] MEDS: MULTIVITAMINS, THERA 1 EACH TAB PO SCH (17:21)
--- NOTE | 2020-08-16 17:57 | P.PN ---
Subjective Progress Note Date: 08/16/20 The patient was seen at bedside and per the patient nurse patient is more awake alert and responding appropriately. Upon seen him he was sitting at the side of the bed and stated that yes she is a more awake since he's been in the hospital but still continues to have neck pain some headache and occipital region denies any nausea vomiting denies any photophobia. He has lower back pain. Objective - Vital Signs Vital signs: Vital Signs Temp 98.0 F 08/16/20 08:00 Pulse 71 08/16/20 08:00 Resp 20 08/16/20 08:00 BP 151/73 08/16/20 08:00 Pulse Ox 94 L 08/16/20 08:00 Intake & Output 08/15/20 08/16/20 08/16/20 18:59 06:59 18:59 Intake Total 1180 142.667 85.742 Output Total 1798 52 Balance -618 90.667 85.742 Weight 95.1 kg Intake: Intake, IV Titration 142.667 85.742 Amount Heparin Sod,Pork in 0.45% 102.667 85.742 NaCl 25,000 unit In 0.45 % NaCl 1 250ml.bag @ 10. 254 UNITS/KG/HR 10 mls/hr IV .Q24H JLUIS Rx#: [id number] Sodium Chloride 0.9% 1, 40 000 ml @ 20 mls/hr IV . Q24H JLUIS Rx#:[id number] Oral 480 Hemodialysis 700 Output: Urine 75 50 Stool 423 2 Hemodialysis 1300 Other: Voiding Method Bedpan Bedpan Urinal Urinal Diaper Diaper # Bowel Movements 1 - Exam GENERAL: The patient is sitting up at side of bed is in mild acute distress. HENT: He is moving his neck side to side. NEUROLOGICAL: Higher mental function: The patient is awake, alert, oriented to self, place and time. Patient is following commands. No aphasia and no neglect. Cranial nerves: The pupils are round, equal and reactive to light. Patient is legally blind over the right eye. Visual field full over the left. Extraocular movement is intact no nystagmus is noted over the left. Facial sensation is normal to touch throughout. The facial strength is normal throughout. Hearing is severely decreased to hand rub. Tongue is midline and moved [id number] without any difficulty. No dysarthria is noted. Shoulder shrug is normal bilat erally. Motor: Gait is deferred. The strength is left arm extension is 4+., flexion is 4+ to 5-. Otherwise 5/5. Lower is able to lift above gravity without focality. Normal tone and bulk. Cerebellum: Normal finger to nose bilaterally. Sensation: Sensation is normal to touch throughout. Reflexes (right/left): 1+ in upper while lowers are ) bilaterally. Plantars are mute bilaterally. WORK-UP: * CT of the head is reported as "no acute intracranial abnormality seen. Prominent extra cranial arterial calcification. Query underlying diabetes or chronic kidney disease". * TSH is 5.340 which is slightly elevated but the free T4 is 1.53 which is considered within normal limits. * Vitamin B12 is more than 4000 on 04/13/2020 which is above normal limits. The red blood cell folate is a thousand 528 which is also above normal limits. * Routine EEG is an abnormal routine EEG. The mild generalized background slowing is suggestive of mild encephalopathy. There are no focal slowing, epileptiform discharges or seizure in the EEG. - Labs CBC & Chem 7: 08/12/20 11:00 08/16/20 04:25 Labs: Abnormal Lab Results - Last 24 Hours (Table) 08/15/20 08/15/20 08/15/20 Range/Units 13:45 16:14 16:42 APTT (22.0-30.0) sec POC Glucose (mg/dL) 170 H (75-99) mg/dL Troponin I 0.300 H* 2.040 H* (0.000-0.034) ng/mL 08/15/20 08/16/20 08/16/20 Range/Units 20:42 06:27 10:57 APTT 32.0 H (22.0-30.0) sec POC Glucose (mg/dL) 181 H 121 H (75-99) mg/dL Troponin I (0.000-0.034) ng/mL 08/16/20 Range/Units 12:12 APTT (22.0-30.0) sec POC Glucose (mg/dL) 139 H (75-99) mg/dL Troponin I (0.000-0.034) ng/mL Microbiology - Last 24 Hours (Table) 08/12/20 15:05 Blood Culture - Preliminary Blood No Growth after 72 hours Assessment and Plan Assessment: * Altered mental status likely due to metabolic encephalopathy-mentation improved. It does not seems septic since no leukocytosis, fever. * Subjective worsening of neck pain (Was told he had Parasitic infection with recent treatment of cervical discitis at [facility] according to the ). Rule out any remission of infection seems unlikely (since his labs are normal). * History of septicemia (with MRSA souce in the lumbar spine was notified of this at [facility]) * Headache possibly due to uncontrolled hypertension vs underlying infection. * Elevated Hypertension * Cervical fracture (per were notifed of this at [facility]) * Bilateral lower extremity weakness with falls * Peripheral neuropathy * Moderate lumbar spondylosis L4-L5 and L5-S1 * Diabetes mellitus that is a poorly controlled * End-stage renal disease on dialysis * Atrial fibrillation * Legally blind * Hyperlipidemia * History of cardiac arrest on 04-11 * History of coronary artery disease status post stent Plan: * I recommend repeat MRI of the brain, cervical supine and lumbar region (e specially since he had recent infection that was found at [facility]) and to rule out any underlying remission. Nephrology wants to avoid Gadollinium. * I agree of holding gabapentin, avoid any narcotic opiates or sedation which can affect patient's mentation. * Infection disease is on board and they discontinued antibiotics since no signs of infection. * Nephrology is on board. * His bilateral lower extremity weakness with falls possibly due to diabetic neuropathy vs plexopathy versus mononeuritis multiplex. We recommended the patient to get EMG with nerve conduction study as an outpatient. * We'll defer the rest of the medical management to primary team. The plan is discussed with the primary team's nurse practioner and his nurse. UPDATE: Per the nurse practitioner she stated that the according the primary attending (Dr. Lima), she reviewed the records from [facility] and it's reported the patient had osteomyelitis of the lumbar. There is no mention of parasites. I checked the patient chart and no record report from [facility]. Dru Nixon M.D. Neuro-hospitalist Time with Patient: Less than 30
[2020-08-16 20:28] LABS: Glucose,Whole Blood 251 mg/dL (75-99)
[2020-08-16] MEDS: INSULIN DETEMIR (LEVEMIR) 100 UNIT/ML SYR SQ SCH (21:20)
[2020-08-16] MEDS: MELATONIN 1 MG TAB PO SCH (21:20)
[2020-08-17] MEDS: FUROSEMIDE 80 MG TAB PO SCH ×2 (06:27→17:12)
[2020-08-17] MEDS: INSULIN ASPART (NovoLOG) 100 UNIT/ML VIAL SQ SCH ×4 (06:27→20:05)
[2020-08-17] MEDS: PANTOPRAZOLE 40 MG TABLET PO SCH (06:27)
[2020-08-17 06:30] LABS: Glucose,Whole Blood 163 mg/dL (75-99)
[2020-08-17] MEDS: FERROUS SULFATE 325 MG TAB PO SCH ×2 (08:42→16:19)
[2020-08-17] MEDS: CLOTRIMAZOLE 1% CREAM 30 GM TUBE TOPICAL SCH ×2 (08:42→21:00)
[2020-08-17] MEDS: ATORVASTATIN 40 MG TAB PO SCH (08:42)
[2020-08-17] MEDS: CALCIUM ACETATE 667 MG TAB PO SCH ×3 (08:42→16:18)
[2020-08-17] MEDS: hydrALAZINE HCL 50 MG TAB PO SCH ×3 (08:42→20:06)
[2020-08-17] MEDS: METOPROLOL TARTRATE 50 MG TAB PO SCH ×2 (08:43→20:06)
--- NOTE | 2020-08-17 08:52 | PN ---
PROGRESS NOTE Joel Gillette is a 60-year-old gentleman with paroxysmal atrial fibrillation, CAD prior PCI, also end-stage renal disease, on hemodialysis. This gentleman went into atrial fib yesterday but back in sinus this morning. Has developed a significant increase in troponin of up to 2.5 or so. This is a matter of concern, but patient is virtually asymptomatic. Has no chest discomfort. Part of the troponin rise could be related to atrial fib rapid rate and also his renal function. However, we will keep him until tomorrow, make sure there is a downward trend. If he has no symptoms, we will discharge him and have him see Dr. Bowie as an outpatient. However, if he has any symptoms or the troponin trend continues to be high, he will need a cardiac cath on Wednesday. For now, he is comfortable. We will leave him on heparin drip. To call for questions. Vitals are stable. JVD 1 cm, no carotid bruit, S1-S2 heard normally. Short systolic murmur noted. Lungs reveal diminished air entry. Abdomen is soft, nontender. Lower extremities reveal diminished pulses. Central nervous system grossly within normal limits. MMODL / IJN: [id number] /
[2020-08-17] MEDS: ACETAMINOPHEN TAB 325 MG TAB PO PRN ×2 (09:10→15:27)
[2020-08-17] MEDS: APIXABAN 2.5 MG TABLET PO SCH ×2 (09:10→20:06)
[2020-08-17] MEDS: AMIODARONE 200 MG TAB PO SCH (09:10)
--- NOTE | 2020-08-17 10:08 | P.PN ---
Subjective Progress Note Date: 08/17/20 The patient seen at bedside and he feels he is doing better today compared to his initial presentation. He denies of headaches, nausea or vomiting. He is walking with physical therapy using a walker. He denies of any new neurological problems. Patient's troponin has been trending during his hospital stay and is on heparin drip. Cardiology is on board MR the brain is reported as no suspicious changes to assess in acute intracranial process. Mild age-related atrophy. Some minimal appearing periven tricular white matter change may be present. MRI of the cervical spine is reported as exam is limited by motion. There are degenerative disc changes. MRI lumbar is reported as exam is limited. There are degenerative disc changes, facet arthropathy. Objective - Vital Signs Vital signs: Vital Signs Temp 97.9 F 08/17/20 03:41 Pulse 70 08/17/20 03:41 Resp 20 08/17/20 03:41 BP 144/65 08/17/20 03:41 Pulse Ox 97 08/17/20 03:41 Intake & Output 08/16/20 08/17/20 08/17/20 18:59 06:59 18:59 Intake Total 273.161 420 Balance 273.161 420 Weight 96.6 kg Intake: Intake, IV Titration 153.161 Amount Heparin Sod,Pork in 0.45% 153.161 NaCl 25,000 unit In 0.45 % NaCl 1 250ml.bag @ 10. 254 UNITS/KG/HR 10 mls/hr IV .Q24H [facility] Rx#: [id number] Oral 120 420 Other: Voiding Method Bedpan Bedpan Urinal Urinal Diaper Diaper # Voids 0 - Exam GENERAL: The patient is sitting up at side of bed is in mild acute distress. HENT: He is moving his neck side to side. NEUROLOGICAL: Higher mental function: The patient is awake, alert, oriented to self, place and time. Patient is following commands. No aphasia and no neglect. Cranial nerves: The pupils are round, equal and reactive to light. Patient is legally blind over the right eye. Visual field full over the left. Extraocular movement is intact no nystagmus is noted over the left. Facial sensation is normal to touch throughout. The facial strength is normal throughout. Hearing is severely decreased to hand rub. Tongue is midline and moved [id number] without any difficulty. No dysarthria is noted. Shoulder shrug is normal bilaterally. Motor: Gait is walking using a walker with physical therapy at side and barely on person assist. He is taking short step. The strength is left arm extension is 4+., flexion is 4+ to 5-. Otherwise 5/5. Lower is able to lift above gravity without focality. Normal tone and bulk. Cerebellum: Normal finger to nose bilaterally. Sensation: Sensation is normal to touch throughout. Reflexes (right/left): 1+ in upper while lowers are ) bilaterally. Plantars are mute bilaterally. WORK-UP: * CT of the head is reported as "no acute intracranial abnormality seen. Prominent extra cranial arterial calcification. Query underlying diabetes or chronic kidney disease". * TSH is 5.340 which is slightly elevated but the free T4 is 1.53 which is considered within normal limits. * Vitamin B12 is more than 4000 on 04/13/2020 which is above normal limits. The red blood cell folate is a thousand 528 which is also above normal limits. * Routine EEG is an abnormal routine EEG. The mild generalized background slowing is suggestive of mild encephalopathy. There are no focal slowing, epileptiform discharges or seizure in the EEG. * MR the brain is reported as no suspicious changes to assess in acute intracranial process. Mild age-related atrophy. Some minimal appearing periventricular white matter change may be present. * MRI of the cervical spine is reported as exam is limited by motion. There are degenerative disc changes. * MRI lumbar is reported as exam is limited. There are degenerative disc changes, facet arthropathy. - Labs CBC & Chem 7: 08/12/20 11:00 08/16/20 04:25 Labs: Abnormal Lab Results - Last 24 Hours (Table) 08/16/20 08/16/20 08/16/20 Range/Units 10:57 12:12 15:47 APTT 32.0 H (22.0-30.0) sec POC Glucose (mg/dL) 139 H (75-99) mg/dL Troponin I 5.550 H* (0.000-0.034) ng/mL 08/16/20 08/16/20 08/16/20 Range/Units 16:49 20:26 22:55 APTT 60.6 H (22.0-30.0) sec POC Glucose (mg/dL) 179 H 251 H (75-99) mg/dL Troponin I (0.000-0.034) ng/mL 08/17/20 Range/Units 06:20 APTT (22.0-30.0) sec POC Glucose (mg/dL) 163 H (75-99) mg/dL Troponin I (0.000-0.034) ng/mL Microbiology - Last 24 Hours (Table) 08/12/20 15:05 Blood Culture - Preliminary Blood No Growth after 96 hours Assessment and Plan Assessment: * Altered mental status likely due to metabolic encephalopathy-mentation improved (MRI Brain is negative. It does not seems septic since no leukocytosis or fever). * Subjective worsening of neck pain (Was told he had Parasitic infection with recent treatment of cervical discitis at [facility] according to the ). * Paroxymal atrial fibrillation * Elevated troponin * History of septicemia (with MRSA souce in the lumbar spine was notified of this at [facility]) * Elevated Hypertension--controlled. * Cervical fracture (per patient C5 fracture that he was notified at [facility] on his last admission). * Bilateral lower extremity weakness with falls * Peripheral neuropathy * Moderate lumbar spondylosis L4-L5 and L5-S1 * Diabetes mellitus that is a poorly controlled * End-stage renal disease on dialysis * Atrial fibrillation * Legally blind * Hyperlipidemia * History of cardiac arrest on 04-11 * History of coronary artery disease status post stent Plan: * I agree of holding gabapentin, avoid any narcotic opiates or sedation which can affect patient's mentation. * Infection disease is on board and they discontinued antibiotics since no signs of infection. * Nephrology team is on board. * Cardiology team is on board * His bilateral lower extremity weakness with falls possibly due to diabetic neuropathy vs plexopathy versus mononeuritis multiplex. We recommended the patient to get EMG with nerve conduction study as an outpatient. * We'll defer the rest of the medical management to primary team. * Notified the nurse to place him on cervical collar since unknown degree of cervical fracture that was seen at [facility] and he needs to follow- up with neurosurgeon as outpatient within 1-2 weeks. * I recommend the patient to follow-up with a neurologist, neurosurgeon as an outpatient within 1-2 weeks. Per the primary team nurse practitioner, she stated that the according the primary attending (Dr. Lima), she reviewed the records from [facility] and it's reported the patient had osteomyelitis of the lumbar. There is no mention of parasites. I checked the patient chart and no record report from [facility]. The plan is discussed with the his nurse and the primary team. There is no further neurological work-up. Neurology will sign off. Please reconsult if needed. Dru Nixon M.D. Neuro-hospitalist Time with Patient: Less than 30
--- NOTE | 2020-08-17 11:41 | P.PN ---
Subjective Progress Note Date: 08/17/20 This is a 60-year-old male patient of Dr. 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 Patient was last hospitalized in April which time he was treated for sepsis and MRSA bacteremia of unclear etiology with metabolic encephalopathy vasovagal episode requiring brief CPR and patient was transferred to [facility]. According to the patient's , patient had MRSA sores in the lumbar spine and also some type of cyst cervical fracture and parasitic infection. Patient was discharged to [facility] for subacute rehab and was transferred from there yesterday due to change in mental status and lethargy, increasing fatigue and neck pain. EKG was in normal sinus rhythm with no acute ST changes. He was afebrile, heart rate 79, blood pressure 173/100, pulse ox 92%. WBC 8.5, hemoglobin 8.9, platelet count 173. Letter lites were normal. BUN 64 creatinine 4.12 and blood sugar 237. Alkaline phosphatase 192. TSH 5. 340. Ammonia level less than 9. Lactic acid 1.8. Troponin 0.021. Influenza, RSV, SARS Covid PCR not detected. Chest x-ray reveals old patchy airspace disease bilaterally. Enlargement of cardiac LAD appears similar to prior exam. CAT scan of the brain revealed no acute intracranial abnormality. Patient was seen by nephrology and started on hemodialysis this morning. Case was discussed with neurology and also with the patient's . Decision was made to transfer patient to [facility] for continuity of care. Patient will be transferred today once arrangements are completed. 08/14: Patient is seen today in the cardiac stepdown unit. He is sitting on the edge of the bed and is awake, alert and oriented 3. He is able to provide information about his reason for transfer to the hospital. He does recall that he refused to have MRI yesterday of his neck. He does not want to go to [facility] in this transfer will be canceled. [facility] records were reviewed and patient was treated for osteomyelitis of the lumbar spine. He did not undergo any neurological intervention or surgery. There was fracture at the cervical spine, no infection. Patient complains of redness in the left axilla area but nothing is seen. He complains of hard time getting his words out and that he is falling asleep as well as sentences. Regarding his neck, he states he has had decreased range of motion in his neck since March and he did have a full workup done at [facility]. Patient has history of obstructive sleep apnea and he has a CPAP at home and recommended that his bring his CPAP in. He states he has not been using it at [facility]. Patient has been seen and followed by neurology and scheduled for hemodialysis tomorrow. Hydralazine was increased. EEG reveals abnormal study suggestive of mild encephalopathy. No epileptiform discharges or seizures. Patient has been afebrile, heart rate 70, blood pressure 134/65, pulse ox 99% on 2 L nasal cannula. Creatinine 4.42. Blood sugars running between 59-224. Vancomycin level 17.5. Blood culture no growth at 24 hours. Patient has been seen by Dr. Presley for possible pneumonia and he is currently on vancomycin and cefepime. Patient's gabapentin is on hold and he is requesting that be resumed. Long discussion with Dr. Lima and this will remain on hold for now. Anticipate possible discharge back to [facility] tomorrow. 08/15: Patient remains awake and alert and mental status is at baseline. Patient states he is feeling terrible and complaining of left-sided chest burning. EKG was obtained which showed atrial fibrillation. Patient does have history of atrial fibrillation but unknown why he is off eliquis amiodarone and metoprolol. Consult with cardiology placed. Patient has been seen and followed by neurology and MRI of the cervical spine, thoracic spine and lumbar spine have been ordered. Patient is undergoing hemodialysis today. Patient is also followed by infectious disease 08/16: Patient was seen by cardiology yesterday during the day and EKG showed atrial fibrillation with RVR. Patient was started on metoprolol 50 mg twice daily and eliquis and subsequently converted to sinus rhythm. Patient had a repeat troponin come back yesterday evening at 2.04 and heparin drip was started and eliquis was placed on hold. Patient was made nothing by mouth and awaiting determination from cardiology for plan. MRI of the brain revealed no suspicious changes to suggest an acute intracranial process. Mild age-related atrophy. Some minimal appearing. Ventricular white matter changes may be present. MRI of the cervical and lumbar spine report is pending. Dr. Presley has discontinued all antibiotics. Patient is awake and alert and oriented at baseline. No ne urological deficits but complains of pain in the neck and back. He has been afebrile, heart rate 71, blood pressure 151/73, pulse ox 93% on room air. 08/17: Patient is found sitting up in chair. He is alert and oriented. Patient states that he is feeling better today, completely not 100%. He is currently having dialysis today. He will return to [facility] on Wednesday. She has been afebrile, heart rate 70, respirations 18, blood pressure 160/73, pulse ox 97% on room air. Troponin 3.07 which is down from yesterday 5.550. REVIEW OF SYSTEMS Constitutional: No fever, no chills, no night sweats. No weight change. Reported weakness, fatigue or lethargy. No daytime sleepiness. EENT: No headache. No blurred vision or double vision, no loss of vision. No loss of Hearing, no ringing in the ears, no dizziness. No nasal drainage or congestion. No epistaxis. No sore throat. Lungs: No shortness of breath, cough, no sputum production. No wheezing. Cardiovascular: No chest pain-denies, no lower extremity edema. No palpitations. No paroxysmal nocturnal dyspnea. No orthopnea. No lightheadedness or dizziness. No syncopal episodes. Abdominal: No abdominal pain. No nausea, vomiting. No diarrhea. No constipation. No bloody or tarry stools. No loss of appetite. Genitourinary: No dysuria, increased frequency, urgency. No urinary retention. Musculoskeletal: No myalgias. Noted muscle weakness, no gait dysfunction, no frequent falls. No back pain. Reports neck pain. Integumentary: No wounds, no lesions. No rash or pruritus. No unusual bruising. No change in hair or nails. Neurologic: No aphasia. No facial droop. No change in mentation. No head injury. No headache. No paralysis. No paresthesia. Psychiatric: No depression. No anxiety. No mood swings. Endocrine: Noted abnormal blood sugars. No weight change. PHYSICAL EXAMINATION Gen: This is a 60-year-old male patient resting on the edge of the bed and appears to be in no acute distress. HEENT: Head is atraumatic, normocephalic. Pupils equal, round. Sclerae is anicteric. NECK: Supple. No JVD. No lymphadenopathy. No thyromegaly. LUNGS: Clear to auscultation. No wheezes or rhonchi. No intercostal retractions. HEART: Regular rate and rhythm. 2/6 systolic murmur. ABDOMEN: Soft. Bowel sounds are present. No masses. No tenderness. EXTREMITIES: No pedal edema. No calf tenderness. NEUROLOGICAL: Patient is awake, oriented x3, able to follow simple commands only. Cranial nerves 2 through 12 are grossly intact. ASSESSMENT AND PLAN 1. Metabolic encephalopathy of unclear etiology. Pneumonia ruled out. Possibly related to medication effect. Consults with neurology and infectious disease appreciated. Hold baclofen, gabapentin, [place]. 2. Neck pain, chronic. Reports from [facility]. MRI of the cervical spine, lumbar spine report pending-. 3. Recent treatment for MRSA bacteremia secondary to osteomyelitis of the lumbar spine. Patient completed course of antibiotics. 4. End-stage renal disease on hemodialysis. Consult with nephrology appreciated. Continue PhosLo 667 mg 3 times daily, Aranesp 40 g subcu every 7 days, hemodialysisscheduled per nephrology. 5. Degenerative disc disease and spinal stenosis. 6. History of coronary artery disease with previous PTCA to LAD and circumflex. 7. Paroxysmal atrial fibrillation With episode of RVR. Cardiology consult appreciated. Patient started on metoprolol 50 mg twice daily. Eliquis is on hold while patient is on heparin drip. 8. Ischemic cardiomyopathy. 9. Diabetes mellitus type 2, insulin requiring. Continue Levemir 5 units at bedtime, add NovoLog scale before meals and at bedtime, 10. Diabetic neuropathy. Hold gabapentin. 11. Hypertension. Continue hydralazine 50 mg 3 times daily. 12. Anemia of chronic disease. Continue ferrous sulfate 325 mg twice daily, Aranesp 40 g subcu every 7 days. 13. Obstructive sleep apnea. Patient will have his . CPAP in from home. 14. GI prophylaxis. Continue Protonix. 18. Chest pain With elevated troponin, possible non-ST elevated myocardial infarction. Patient is on heparin drip. Cardiology consult. 14. DVT prophylaxis. Heparin subcu. DISCHARGE PLAN Return to [facility] on Wednesday Impression and plan of care have been directed as dictated by the signing physician. Karina Aponte nurse practitioner acting as scribe for signing physician. Objective - Vital Signs Vital signs: Vital Signs Temp 97.6 F 08/17/20 08:00 Pulse 70 08/17/20 08:00 Resp 18 08/17/20 08:00 BP 160/73 08/17/20 08:00 Pulse Ox 97 08/17/20 08:00 Intake & Output 08/16/20 08/17/20 08/17/20 18:59 06:59 18:59 Intake Total 273.161 420 200 Balance 273.161 420 200 Weight 96.6 kg Intake: Intake, IV Titration 153.161 Amount Heparin Sod,Pork in 0.45% 153.161 NaCl 25,000 unit In 0.45 % NaCl 1 250ml.bag @ 10. 254 UNITS/KG/HR 10 mls/hr IV .Q24H [facility] Rx#: [id number] Oral 120 420 200 Other: Voiding Method Bedpan Bedpan Bedpan Urinal Urinal Urinal Diaper Diaper Diaper # Voids 0 1 - Labs CBC & Chem 7: 08/12/20 11:00 08/16/20 04:25 Labs: Abnormal Lab Results - Last 24 Hours (Table) 08/16/20 08/16/20 08/16/20 Range/Units 10:57 12:12 15:47 APTT 32.0 H (22.0-30.0) sec POC Glucose (mg/dL) 139 H (75-99) mg/dL Troponin I 5.550 H* (0.000-0.034) ng/mL 08/16/20 08/16/20 08/16/20 Range/Units 16:49 20:26 22:55 APTT 60.6 H (22.0-30.0) sec POC Glucose (mg/dL) 179 H 251 H (75-99) mg/dL Troponin I (0.000-0.034) ng/mL 08/17/20 08/17/20 08/17/20 Range/Units 06:20 07:14 08:10 APTT 43.5 H (22.0-30.0) sec POC Glucose (mg/dL) 163 H (75-99) mg/dL Troponin I 3.070 H* (0.000-0.034) ng/mL Microbiology - Last 24 Hours (Table) 08/12/20 15:05 Blood Culture - Preliminary Blood No Growth after 96 hours
[2020-08-17 12:11] LABS: Glucose,Whole Blood 262 mg/dL (75-99)
[2020-08-17] MEDS: SODIUM CHLORIDE 0.9% 1,000 ML IV SCH (13:00)
--- NOTE | 2020-08-17 14:16 | PN ---
PROGRESS NOTE The patient is seen for followup for end-stage renal disease. This morning he is sitting up. He is comfortable. He is working with physical therapy. Overall denies any significant complaints. Mentation is at baseline. PHYSICAL EXAMINATION: On examination today, blood pressure was 160/73, heart rate 70 per minute. He is afebrile. Examination of the heart S1, S2. Examination of the lungs, decreased breath sounds at bases. Abdomen is soft, nontender. Examination of lower extremities: Edema 3+ bilaterally. COOK CHEF exam grossly intact. LAB: Show serum troponin 3.07. Last CBC on August 12 show hemoglobin 8.9, sodium 138, potassium 4.5, serum creatinine 4.1. ASSESSMENT: 1. End-stage renal disease, on hemodialysis on a Wednesday, , Wednesday schedule. 2. Anemia of chronic disease, maintained on Aranesp. Check CBC today. 3. Metabolic encephalopathy, currently improved, [place] is on hold including baclofen and gabapentin. 4. Coronary artery disease with history of PTCA to LAD and circumflex. 5. Ischemic cardiomyopathy. 6. Paroxysmal atrial fibrillation, maintained on anticoagulation. 7. Volume overload. PLAN: Next hemodialysis on Wednesday. Apparently patient's dialyzer had clotted today and he refused to be restarted. At this point we can wait. I will check a CBC and BMP and we will schedule him for dialysis on 08/19/2020. MMMELISSAL / BISIN: [id number] /
[2020-08-17 15:58] LABS: Basophils # (A) 0.1 k/uL (0-0.2); Basophils % (A) 1 %; Eosinophils # (A) 0.6 k/uL (0-0.7); Eosinophils % (A) 6 %; HCT 29.2 % (39.0-53.0); HGB 9.5 gm/dL (13.0-17.5); Lymphocytes # (A) 0.8 k/uL (1.0-4.8); Lymphocytes % (A) 8 %; MCH 29.9 pg (25.0-35.0); MCHC 32.4 g/dL (31.0-37.0); MCV 92.4 fL (80.0-100.0); Mean Platelet Volume 7.3; Monocytes # (A) 0.8 k/uL (0-1.0); Monocytes % (A) 8 %; Neutrophils # (A) 7.1 k/uL (1.3-7.7); Neutrophils % (A) 75 %; Platelet Count 155 k/uL (150-450); RBC 3.16 m/uL (4.30-5.90); RDW 15.3 % (11.5-15.5); WBC 9.6 k/uL (3.8-10.6)
[2020-08-17 16:17] LABS: Calcium 9.5 mg/dL (8.4-10.2); Potassium 4.3 mmol/L (3.5-5.1)
[2020-08-17] MEDS: MULTIVITAMINS, THERA 1 EACH TAB PO SCH (16:19)
[2020-08-17 16:51] LABS: Glucose,Whole Blood 197 mg/dL (75-99)
[2020-08-17 19:59] LABS: Glucose,Whole Blood 206 mg/dL (75-99)
[2020-08-17] MEDS: INSULIN DETEMIR (LEVEMIR) 100 UNIT/ML SYR SQ SCH (20:05)
[2020-08-17] MEDS: MELATONIN 1 MG TAB PO SCH (20:06)
--- NOTE | 2020-08-17 20:28 | PN ---
PROGRESS NOTE DATE OF SERVICE: 08/17/2020. HISTORY: Joel Gillette is a 60-year-old gentleman with known CAD, prior multivessel stenting, known RCA occlusion. He came in with altered mentation and missing dialysis and dialysis has been performed. He feels well. Troponin has gone up after a bout of rapid atrial fib with ventricular rate which has also settled down. He is in sinus rhythm. Troponin rise was noted. Talked to the patient. I do not believe any intervention necessary. Troponin is related to atrial fib and also elevated creatinine because patient has end-stage renal disease. He can be discharged today. He will see Dr. Bowie in about a week. . I am resuming Eliquis 2.5 mg b.i.d. and also the amiodarone is being resumed. PHYSICAL EXAM: Vitals are stable. JVD is 1 cm. No carotid bruit. S1-S2 heard normally irregular rhythm noted, short systolic murmur noted. Lungs revealed decent air entry. Abdomen and lower extremity exam unchanged. MMODL / IJN: [id number] /
--- NOTE | 2020-08-18 00:05 | PN ---
PROGRESS NOTE DATE OF SERVICE: 08/17/2020. REASON FOR FOLLOWUP: Possible pneumonia. INTERVAL HISTORY: Patient is afebrile. The patient is breathing comfortably on room air. The patient denies having any chest pain, shortness of breath or cough. No nausea, vomiting, abdominal pain or diarrhea. PHYSICAL EXAMINATION: Blood pressure 170/72 with a pulse of 50, temperature 97.6. He is 92%. Description: Is a middle-aged male up in the bed, in no distress. RESPIRATORY SYSTEM: Unlabored breathing, decreased , no wheeze. HEART: S1, S2. Regular rate and rhythm. ABDOMEN: Soft, no tenderness. LABS: Hemoglobin is 9.8, white count 9.6, BUN of 74, creatinine 5.48. Blood culture has been negative. DIAGNOSTIC IMPRESSION AND PLAN: Patient admitted to the hospital with chest pain, some mental status changes. There was abnormal x-ray and a question of pneumonia. Clinically, did not appear to have pneumonia. The patient culture has been negative. White count normal and currently being monitored closely off antibiotic therapy. MMODL / IJN: [id number] /
[2020-08-18 06:04] LABS: Glucose,Whole Blood 166 mg/dL (75-99)
[2020-08-18] MEDS: PANTOPRAZOLE 40 MG TABLET PO SCH (06:07)
[2020-08-18] MEDS: FUROSEMIDE 80 MG TAB PO SCH ×2 (06:07→16:42)
[2020-08-18] MEDS: INSULIN ASPART (NovoLOG) 100 UNIT/ML VIAL SQ SCH ×4 (06:07→20:32)
[2020-08-18] MEDS: ACETAMINOPHEN TAB 325 MG TAB PO PRN ×3 (06:07→23:07)
[2020-08-18] MEDS: AMIODARONE 200 MG TAB PO SCH (08:46)
[2020-08-18] MEDS: APIXABAN 2.5 MG TABLET PO SCH ×2 (08:46→20:31)
[2020-08-18] MEDS: CALCIUM ACETATE 667 MG TAB PO SCH ×3 (08:46→16:42)
[2020-08-18] MEDS: FERROUS SULFATE 325 MG TAB PO SCH ×2 (08:46→16:42)
[2020-08-18] MEDS: ATORVASTATIN 40 MG TAB PO SCH (08:47)
[2020-08-18] MEDS: CLOTRIMAZOLE 1% CREAM 30 GM TUBE TOPICAL SCH ×2 (08:47→20:31)
[2020-08-18] MEDS: hydrALAZINE HCL 50 MG TAB PO SCH ×3 (08:47→22:00)
[2020-08-18] MEDS: METOPROLOL TARTRATE 50 MG TAB PO SCH ×2 (08:47→20:31)
--- NOTE | 2020-08-18 10:32 | P.PN ---
Subjective Progress Note Date: 08/18/20 This is a 60-year-old male patient of Dr. 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 Patient was last hospitalized in April which time he was treated for sepsis and MRSA bacteremia of unclear etiology with metabolic encephalopathy vasovagal episode requiring brief CPR and patient was transferred to [facility]. According to the patient's , patient had MRSA sores in the lumbar spine and also some type of cyst cervical fracture and parasitic infection. Patient was discharged to [facility] for subacute rehab and was transferred from there yesterday due to change in mental status and lethargy, increasing fatigue and neck pain. EKG was in normal sinus rhythm with no acute ST changes. He was afebrile, heart rate 79, blood pressure 173/100, pulse ox 92%. WBC 8.5, hemoglobin 8.9, platelet count 173. Letter lites were normal. BUN 64 creatinine 4.12 and blood sugar 237. Alkaline phosphatase 192. TSH 5. 340. Ammonia level less than 9. Lactic acid 1.8. Troponin 0.021. Influenza, RSV, SARS Covid PCR not detected. Chest x-ray reveals old patchy airspace disease bilaterally. Enlargement of cardiac LAD appears similar to prior exam. CAT scan of the brain revealed no acute intracranial abnormality. Patient was seen by nephrology and started on hemodialysis this morning. Case was discussed with neurology and also with the patient's . Decision was made to transfer patient to [facility] for continuity of care. Patient will be transferred today once arrangements are completed. 08/14: Patient is seen today in the cardiac stepdown unit. He is sitting on the edge of the bed and is awake, alert and oriented 3. He is able to provide information about his reason for transfer to the hospital. He does recall that he refused to have MRI yesterday of his neck. He does not want to go to [facility] in this transfer will be canceled. [facility] records were reviewed and patient was treated for osteomyelitis of the lumbar spine. He did not undergo any neurological intervention or surgery. There was fracture at the cervical spine, no infection. Patient complains of redness in the left axilla area but nothing is seen. He complains of hard time getting his words out and that he is falling asleep as well as sentences. Regarding his neck, he states he has had decreased range of motion in his neck since March and he did have a full workup done at [facility]. Patient has history of obstructive sleep apnea and he has a CPAP at home and recommended that his bring his CPAP in. He states he has not been using it at [facility]. Patient has been seen and followed by neurology and scheduled for hemodialysis tomorrow. Hydralazine was increased. EEG reveals abnormal study suggestive of mild encephalopathy. No epileptiform discharges or seizures. Patient has been afebrile, heart rate 70, blood pressure 134/65, pulse ox 99% on 2 L nasal cannula. Creatinine 4.42. Blood sugars running between 59-224. Vancomycin level 17.5. Blood culture no growth at 24 hours. Patient has been seen by Dr. Presley for possible pneumonia and he is currently on vancomycin and cefepime. Patient's gabapentin is on hold and he is requesting that be resumed. Long discussion with Dr. Lima and this will remain on hold for now. Anticipate possible discharge back to [facility] tomorrow. 08/15: Patient remains awake and alert and mental status is at baseline. Patient states he is feeling terrible and complaining of left-sided chest burning. EKG was obtained which showed atrial fibrillation. Patient does have history of atrial fibrillation but unknown why he is off eliquis amiodarone and metoprolol. Consult with cardiology placed. Patient has been seen and followed by neurology and MRI of the cervical spine, thoracic spine and lumbar spine have been ordered. Patient is undergoing hemodialysis today. Patient is also followed by infectious disease 08/16: Patient was seen by cardiology yesterday during the day and EKG showed atrial fibrillation with RVR. Patient was started on metoprolol 50 mg twice daily and eliquis and subsequently converted to sinus rhythm. Patient had a repeat troponin come back yesterday evening at 2.04 and heparin drip was started and eliquis was placed on hold. Patient was made nothing by mouth and awaiting determination from cardiology for plan. MRI of the brain revealed no suspicious changes to suggest an acute intracranial process. Mild age-related atrophy. Some minimal appearing. Ventricular white matter changes may be present. MRI of the cervical and lumbar spine report is pending. Dr. Presley has discontinued all antibiotics. Patient is awake and alert and oriented at baseline. No ne urological deficits but complains of pain in the neck and back. He has been afebrile, heart rate 71, blood pressure 151/73, pulse ox 93% on room air. 08/17: Patient is found sitting up in chair. He is alert and oriented. Patient states that he is feeling better today, completely not 100%. He is currently having dialysis today. He will return to [facility] on Wednesday. She has been afebrile, heart rate 70, respirations 18, blood pressure 160/73, pulse ox 97% on room air. Troponin 3.07 which is down from yesterday 5.550. 08/18: Patient is found sitting up in a chair. He is alert and orientated 3. Patient states that he is feeling better today. He continues to have no cough fever or chills. Neck feels about the same as before. Patient was unable to have dialysis yesterday due to inability to access the fistula. Patient requested for them to stop trying and that he would try again on Wednesday. Plan is for patient to return to [facility] on Wednesday. If needed we'll schedule an additional day for dialysis. REVIEW OF SYSTEMS Constitutional: No fever, no chills, no night sweats. No weight change. Reported weakness, fatigue or lethargy. No daytime sleepiness. EENT: No headache. No blurred vision or double vision, no loss of vision. No loss of Hearing, no ringing in the ears, no dizziness. No nasal drainage or congestion. No epistaxis. No sore throat. Lungs: No shortness of breath, cough, no sputum production. No wheezing. Cardiovascular: No chest pain-denies, no lower extremity edema. No palpitations. No paroxysmal nocturnal dyspnea. No orthopnea. No lightheadedness or dizziness. No syncopal episodes. Abdominal: No abdominal pain. No nausea, vomiting. No diarrhea. No constipation. No bloody or tarry stools. No loss of appetite. Genitourinary: No dysuria, increased frequency, urgency. No urinary retention. Musculoskeletal: No myalgias. Noted muscle weakness, no gait dysfunction, no frequent falls. No back pain. Reports neck pain. Integumentary: No wounds, no lesions. No rash or pruritus. No unusual bruising. No change in hair or nails. Neurologic: No aphasia. No facial droop. No change in mentation. No head injury . No headache. No paralysis. No paresthesia. Psychiatric: No depression. No anxiety. No mood swings. Endocrine: Noted abnormal blood sugars. No weight change. PHYSICAL EXAMINATION Gen: This is a 60-year-old male patient resting on the edge of the bed and appears to be in no acute distress. HEENT: Head is atraumatic, normocephalic. Pupils equal, round. Sclerae is an icteric. NECK: Supple. No JVD. No lymphadenopathy. No thyromegaly. LUNGS: Clear to auscultation. No wheezes or rhonchi. No intercostal retractions. HEART: Regular rate and rhythm. 2/6 systolic murmur. ABDOMEN: Soft. Bowel sounds are present. No masses. No tenderness. EXTREMITIES: No pedal edema. No calf tenderness. NEUROLOGICAL: Patient is awake, oriented x3, able to follow simple commands only. Cranial nerves 2 through 12 are grossly intact. ASSESSMENT AND PLAN 1. Metabolic encephalopathy of unclear etiology. Pneumonia ruled out. Possibly related to medication effect. Consults with neurology and infectious disease appreciated. Hold baclofen, gabapentin, [place]. 2. Neck pain, chronic. Reports from [facility]. MRI of the cervical spine, lumbar spine report pending-. 3. Recent treatment for MRSA bacteremia secondary to osteomyelitis of the lumbar spine. Patient completed course of antibiotics. 4. End-stage renal disease on hemodialysis. Consult with nephrology appreciated. Continue PhosLo 667 mg 3 times daily, Aranesp 40 g subcu every 7 days, hemodialysisscheduled per nephrology. 5. Degenerative disc disease and spinal stenosis. 6. History of coronary artery disease with previous PTCA to LAD and circumflex. 7. Paroxysmal atrial fibrillation With episode of RVR. Cardiology consult appreciated. Patient started on metoprolol 50 mg twice daily. Eliquis is on hold while patient is on heparin drip. 8. Ischemic cardiomyopathy. 9. Diabetes mellitus type 2, insulin requiring. Continue Levemir 5 units at bedtime, add NovoLog scale before meals and at bedtime, 10. Diabetic neuropathy. Hold gabapentin. 11. Hypertension. Continue hydralazine 50 mg 3 times daily. 12. Anemia of chronic disease. Continue ferrous sulfate 325 mg twice daily, Aranesp 40 g subcu every 7 days. 13. Obstructive sleep apnea. Patient will have his . CPAP in from home. 14. GI prophylaxis. Continue Protonix. 18. Chest pain With elevated troponin, possible non-ST elevated myocardial infarction. Patient is on heparin drip. Cardiology consult. 14. DVT prophylaxis. Heparin subcu. DISCHARGE PLAN Return to [facility] on Wednesday Impression and plan of care have been directed as dictated by the signing physician. Karina Aponte nurse practitioner acting as scribe for signing physician. Objective - Vital Signs Vital signs: Vital Signs Temp 97.6 F 08/18/20 08:00 Pulse 66 08/18/20 08:00 Resp 20 08/18/20 08:00 BP 158/72 08/18/20 08:00 Pulse Ox 100 08/18/20 08:00 Intake & Output 08/17/20 08/18/20 08/18/20 18:59 06:59 18:59 Intake Total 438 220 Balance 438 220 Weight 95.5 kg Intake: Oral 438 220 Other: Voiding Method Bedpan Bedpan Bedpan Urinal Urinal Urinal Diaper Diaper Diaper # Voids 2 1 - Labs CBC & Chem 7: 08/17/20 15:27 08/17/20 15:27 Labs: Abnormal Lab Results - Last 24 Hours (Table) 08/17/20 08/17/20 08/17/20 Range/Units 12:10 15:27 15:27 RBC 3.16 L (4.30-5.90) m/uL Hgb 9.5 L (13.0-17.5) gm/dL Hct 29.2 L (39.0-53.0) % Lymphocytes # 0.8 L (1.0-4.8) k/uL BUN 74 H (9-20) mg/dL Creatinine 5.48 H (0.66-1.25) mg/dL Glucose 192 H (74-99) mg/dL POC Glucose (mg/dL) 262 H (75-99) mg/dL 08/17/20 08/17/20 08/18/20 Range/Units 16:51 19:58 06:03 RBC (4.30-5.90) m/uL Hgb (13.0-17.5) gm/dL Hct (39.0-53.0) % Lymphocytes # (1.0-4.8) k/uL BUN (9-20) mg/dL Creatinine (0.66-1.25) mg/dL Glucose (74-99) mg/dL POC Glucose (mg/dL) 197 H 206 H 166 H (75-99) mg/dL Microbiology - Last 24 Hours (Table) 08/12/20 15:05 Blood Culture - Preliminary Blood No Growth after 120 hours
[2020-08-18 11:50] LABS: Glucose,Whole Blood 248 mg/dL (75-99)
[2020-08-18] MEDS: SODIUM CHLORIDE 0.9% 1,000 ML IV SCH (12:40)
--- NOTE | 2020-08-18 13:33 | PN ---
PROGRESS NOTE Patient is seen for followup for end-stage renal disease. This morning he is comfortable, denies any significant complaints. PHYSICAL EXAMINATION: Blood pressure 158/72, heart rate 66 per minute, he is afebrile. Examination of the heart S1, S2. Examination of the lungs, bilateral breath sounds are heard. Abdomen: Soft, nontender, obese. Exam of lower extremities shows edema 2+ bilaterally. ADMISSIONS COORDINATOR exam grossly intact. LABS: Show hemoglobin 9.5, sodium 139, potassium 4.3 on 08/17/2020. ASSESSMENT: 1. End-stage renal disease, on hemodialysis Wednesday, Wednesday, Wednesday schedule. 2. Volume overload, plan UF of about 2-3 L tomorrow with dialysis. 3. Metabolic encephalopathy, currently improved, possibly related to medications as well. 4. Coronary artery disease with history of PTCA to LAD and circumflex. 5. Ischemic cardiomyopathy. 6. Paroxysmal atrial fibrillation. 7. Anemia of chronic disease maintained on Aranesp. PLAN: Repeat hemodialysis tomorrow. Goal UF 2-3 L as tolerated. MMODL / IJN: [id number] /
--- NOTE | 2020-08-18 15:12 | PN ---
PROGRESS NOTE Mr. Joel Gillette is a gentleman who is [facility]. He has end-stage renal disease on hemodialysis, has elevated troponin and also paroxysmal atrial fibrillation but now in sinus rhythm. No chest discomfort. We will continue medical therapy and home tomorrow. Will see Dr. Bowie in about a week or so and consider a stress test or intervention at that time. Patient has no symptoms, doing remarkably well. PHYSICAL EXAMINATION: Vitals are stable. Physical exam without no new significant findings. MMODL / IJN: [id number] /
[2020-08-18] MEDS: MULTIVITAMINS, THERA 1 EACH TAB PO SCH (16:42)
[2020-08-18 16:50] LABS: Glucose,Whole Blood 169 mg/dL (75-99)
[2020-08-18 20:15] LABS: Glucose,Whole Blood 228 mg/dL (75-99)
[2020-08-18] MEDS: MELATONIN 1 MG TAB PO SCH (20:31)
[2020-08-18] MEDS: INSULIN DETEMIR (LEVEMIR) 100 UNIT/ML SYR SQ SCH (20:32)
--- NOTE | 2020-08-18 23:23 | PN ---
PROGRESS NOTE DATE OF SERVICE: 08/18/2020 REASON FOR FOLLOWUP: Abnormal x-ray and a question of pneumonia. INTERVAL HISTORY: The patient is afebrile. The patient is breathing comfortably on room air. The patient denies any chest pain, shortness of breath or cough. No nausea, vomiting. No abdominal pain. No diarrhea. PHYSICAL EXAMINATION: Blood pressure 182/93 with a pulse of 69. Temperature is 97.6. He is 95% on room air. General description is a middle-aged male up in the chair in no distress. Respiratory system: Unlabored breathing, decreased intensity of breath sounds. No wheeze. Heart S1, S2. Regular rate and rhythm. Abdomen soft. No tenderness. Extremities: No edema of the feet. LABS: No new labs have been obtained today. Culture has been negative. DIAGNOSTIC IMPRESSION AND PLAN: Patient admitted to the hospital with mental status changes in this patient with some infiltrate on chest x-ray, however, clinically not behaving as pneumonia and the patient is off the antibiotic therapy. The patient did have a MRI of the thoracolumbar spine and those have been negative. Continue to monitor the patient closely off antibiotic therapy. Continue supportive care. MMODL / IJN: [id number] / MTDD
[2020-08-19 01:46] VITALS: TEMP 97.5
[2020-08-19] MEDS ORDERED: NITROGLYCERIN SL TABS 0.4 MG TAB SUBLINGUAL ONE (04:45)
[2020-08-19] MEDS: ACETAMINOPHEN TAB 325 MG TAB PO PRN (05:01)
[2020-08-19 05:14] VITALS: PULSE 60
[2020-08-19 06:19] LABS: Glucose,Whole Blood 202 mg/dL (75-99)
[2020-08-19] MEDS: FUROSEMIDE 80 MG TAB PO SCH (06:33)
[2020-08-19] MEDS: PANTOPRAZOLE 40 MG TABLET PO SCH (06:33)
[2020-08-19] MEDS: INSULIN ASPART (NovoLOG) 100 UNIT/ML VIAL SQ SCH ×2 (06:33→13:51)
[2020-08-19] MEDS: CALCIUM ACETATE 667 MG TAB PO SCH ×2 (06:33→12:22)
--- NOTE | 2020-08-19 07:46 | P.DS ---
Providers Date of admission: 08/12/20 13:53 Expected date of discharge: 08/19/20 Attending physician: Mono Lima MD Consults: 08/12/20 13:41 Consult Physician Routine Consulting Provider: Migel Edmondson Consult Reason/Comments: ESRD patietn Do you want consulting provider notified?: Yes 08/12/20 13:54 Consult Physician Routine Consulting Provider: Dru Nixon Consult Reason/Comments: altered mental status Do you want consulting provider notified?: Yes Consult Physician Routine Consulting Provider: Tio Presley Consult Reason/Comments: patchy airspace disease Do you want consulting provider notified?: Yes 08/15/20 09:54 Consult Physician Routine Consulting Provider: Reese Verma Consult Reason/Comments: left CP Do you want consulting provider notified?: Yes [facility]: This is a 60-year-old male patient of Dr. 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 Patient was last hospitalized in April which time he was treated for sepsis and MRSA bacteremia of unclear etiology with metabolic encephalopathy vasovagal episode requiring brief CPR and patient was transferred to [facility]. According to the patient's , patient had MRSA sores in the lumbar spine and also some type of cyst cervical fracture and parasitic infection. Patient was discharged to [facility] for subacute rehab and was transferred from there yesterday due to change in mental status and lethargy, increasing fatigue and neck pain. EKG was in normal sinus rhythm with no acute ST changes. He was afebrile, heart rate 79, blood pressure 173/100, pulse ox 92%. WBC 8.5, hemoglobin 8.9, platelet count 173. Letter lites were normal. BUN 64 creatinine 4.12 and blood sugar 237. Alkaline phosphatase 192. TSH 5.340. Ammonia level less than 9. Lactic acid 1.8. Troponin 0.021. Influenza, RSV, SARS Covid PCR not detected. Chest x-ray reveals old patchy airspace disease bilaterally. Enlargement of cardiac LAD appears similar to prior exam. CAT scan of the brain revealed no acute intracranial abnormality. Patient was seen by nephrology and started on hemodialysis this morning. Case was discussed with neurology and also with the patient's . Decision was made to transfer patient to [facility] for continuity of care. Patient will be transferred today once arrangements are completed. 08/14: Patient is seen today in the cardiac stepdown unit. He is sitting on the edge of the bed and is awake, alert and oriented 3. He is able to provide information about his reason for transfer to the hospital. He does recall that he refused to have MRI yesterday of his neck. He does not want to go to [facility] in this transfer will be canceled. [facility] records were reviewed and patient was treated for osteomyelitis of the lumbar spine. He did not undergo any neurological intervention or surgery. There was fracture at the cervical spine, no infection. Patient complains of redness in the left axilla area but nothing is seen. He complains of hard time getting his words out and that he is falling asleep as well as sentences. Regarding his neck, he states he has had decreased range of motion in his neck since March and he did have a full workup done at [facility]. Patient has history of obstructive sleep apnea and he has a CPAP at home and recommended that his bring his CPAP in. He states he has not been using it at [facility]. Patient has been seen and followed by neurology and scheduled for hemodialysis tomorrow. Hydralazine was increased. EEG reveals abnormal study suggestive of mild encephalopathy. No epileptiform discharges or seizures. Patient has been afebrile, heart rate 70, blood pressure 134/65, pulse ox 99% on 2 L nasal cannula. Creatinine 4.42. Blood sugars running between 59-224. Vancomycin level 17.5. Blood culture no growth at 24 hours. Patient has been seen by Dr. Presley for possible pneumonia and he is currently on vancomycin and cefepime. Patient's gabapentin is on hold and he is requesting that be resumed. Long discussion with Dr. Lima and this will remain on hold for now. Anticipate possible discharge back to [facility] tomorrow. 08/15: Patient remains awake and alert and mental status is at baseline. Patient states he is feeling terrible and complaining of left-sided chest burning. EKG was obtained which showed atrial fibrillation. Patient does have history of atrial fibrillation but unknown why he is off eliquis amiodarone and metoprolol. Consult with cardiology placed. Patient has been seen and followed by neurology and MRI of the cervical spine, thoracic spine and lumbar spine have been ordered. Patient is undergoing hemodialysis today. Patient is also followed by infectious disease 08/16: Patient was seen by cardiology yesterday during the day and EKG showed atrial fibrillation with RVR. Patient was started on metoprolol 50 mg twice daily and eliquis and subsequently converted to sinus rhythm. Patient had a repeat troponin come back yesterday evening at 2.04 and heparin drip was started and eliquis was placed on hold. Patient was made nothing by mouth and awaiting determination from cardiology for plan. MRI of the brain revealed no suspicious changes to suggest an acute intracranial process. Mild age-related atrophy. Some minimal appearing. Ventricular white matter changes may be present. MRI of the cervical and lumbar spine report is pending. Dr. Presley has discontinued all antibiotics. Patient is awake and alert and oriented at baseline. No neurological deficits but complains of pain in the neck and back. He has been afebrile, heart rate 71, blood pressure 151/73, pulse ox 93% on room air. 08/17: Patient is found sitting up in chair. He is alert and oriented. Patient states that he is feeling better today, completely not 100%. He is currently having dialysis today. He will return to [facility] on Wednesday. She has been afebrile, heart rate 70, respirations 18, blood pressure 160/73, pulse ox 97% on room air. Troponin 3.07 which is down from yesterday 5.550. 08/18: Patient is found sitting up in a chair. He is alert and orientated 3. Patient states that he is feeling better today. He continues to have no cough fever or chills. Neck feels about the same as before. Patient was unable to have dialysis yesterday due to inability to access the fistula. Patient requested for them to stop trying and that he would try again on Wednesday. Plan is for patient to return to [facility] on Wednesday. If needed we'll schedule an additional day for dialysis. 08/19: Patient underwent MRI of the thoracic and lumbar spine which was negative for infection. Patient is off heparin drip. Cardiology has advised for follow- up with Dr. Bowie in a week or so to consider stress test. Patient is scheduled for repeat dialysis today and resume his schedule of Wednesday. Patient has been afebrile, heart rate 60, blood pressure 125/67, pulse ox 95% on room air. Blood sugars are running between 169 and 238. Blood cultures been finalized with no growth at 144 hours. No new complaints. Baclofen decreased and patient resumed on gabapentin and norco. Mental status remains stable. Patient will be discharged back to [facility] today in stable condition. ASSESSMENT AND PLAN 1. Metabolic encephalopathy possibly related to medication effect. Pneumonia ruled out. 2. Neck pain, chronic. 3. Recent treatment for MRSA bacteremia secondary to osteomyelitis of the lumbar spine. 4. End-stage renal disease on hemodialysis. 5. Degenerative disc disease and spinal stenosis. 6. History of coronary artery disease with previous PTCA to LAD and circumflex. 7. Paroxysmal atrial fibrillation With episode of RVR. 8. Ischemic cardiomyopathy. 9. Diabetes mellitus type 2, insulin requiring. 10. Diabetic neuropathy. 11. Hypertension. 12. Anemia of chronic disease. 13. Obstructive sleep apnea. 14. Chest pain With elevated troponin, acute coronary syndrome ruled out by cardiology. DISCHARGE PLAN Return to [facility] on Wednesday under the care of Dr. Christian Impression and plan of care have been directed as dictated by the signing physician. Katelyn Wesley nurse practitioner acting as scribe for signing physician. Patient Condition at Discharge: Good Plan - Discharge Summary New Discharge Prescriptions: New hydrALAZINE HCL [Apresoline] 75 mg PO TID tab Amiodarone [Cordarone] 200 mg PO DAILY tab Atorvastatin [Lipitor] 40 mg PO DAILY tab Lactulose [Cephulac] 15 gm PO TID PRN ml PRN Reason: Constipation Sodium Chloride 0.65% Nasal [Deep Sea (Saline)] 2 spray NASAL QID PRN spray PRN Reason: Dry Nasal Passages Apixaban [Eliquis] 2.5 mg PO BID tablet Metoprolol Tartrate [Lopressor] 50 mg PO BID #0 tab Continue Calcium Acetate [PhosLo] 667 mg PO TID@0800,1200,1700 Furosemide [Lasix] 80 mg PO BID@0600,1800 Triamcinolone 0.1% Ointment [Kenalog] 1 applic TOPICAL BID hydrOXYzine pamoate [Vistaril] 50 mg PO QID@00,06,12,18 Pantoprazole [Protonix] 40 mg PO DAILY@0600 Sennosides/Docusate Sodium [Senna-S 8.6-50 mg Tablet] 1 tab PO Q12H PRN PRN Reason: Constipation Ammonium Lactate Lotion [Lac-Hydrin 12% Lotion] 1 applic TOPICAL BID Acetaminophen Tab [Tylenol] 650 mg PO Q6H PRN PRN Reason: Pain Or Fever > 100.5 INSULIN ASPART (NovoLOG) [NovoLOG (formulary)] See Protocol SQ ACHS Ferrous Sulfate [Iron (65 MG Elemental)] 325 mg PO BID@0800,1700 Cholestyramine (with Sugar) [Cholestyramine Packet] 4 gm PO BID@0800,1700 Midodrine HCl [ProAmatine] 10 mg PO DAILY@0800 Ciclopirox Olamine [Loprox 0.77% cream] 1 applic TOPICAL BID Menthol-Zinc Oxide Oint [Calmoseptine Oint] 1 applic TOPICAL BID bisacodyL [Dulcolax] 10 mg RECTAL DAILY PRN PRN Reason: Constipation Na Phos,M-B/Na Phos,Di-Ba [Fleet Adult] 133 ml RECTAL DAILY PRN PRN Reason: Constipation Magnesium Hydroxide [Milk of Magnesia Concentrate] 7,200 mg PO DAILY PRN PRN Reason: Constipation Aspirin EC [Ecotrin Low Dose] 81 mg PO DAILY@1700 Multivitamins, Thera [Multivitamin (formulary)] 1 tab PO DAILY@1700 Melatonin 1 mg PO HS Insulin Detemir (Levemir) [Levemir] 10 unit SQ HS@2100 Epoetin Luis [Epogen] 4,000 unit SQ TUTHSA Menthol [Biofreeze] 1 applic TOPICAL TID Gabapentin 300 mg PO HS@2100 #3 cap HYDROcodone/APAP 5-325MG [Ferguson 5-325] 1 tab PO Q6HR PRN #12 tab PRN Reason: Pain Changed Baclofen [Lioresal] 5 mg PO Q8H PRN #0 PRN Reason: Muscle Pain Discontinued hydrALAZINE HCL 10 mg PO BID@0800,2100 Discharge Medication List Calcium Acetate [PhosLo] 667 mg PO TID@0800,1200,1700 08/05/18 [History] Furosemide [Lasix] 80 mg PO BID@0600,1800 04/13/19 [History] Triamcinolone 0.1% Ointment [Kenalog] 1 applic TOPICAL BID 04/13/19 [History] hydrOXYzine pamoate [Vistaril] 50 mg PO QID@00,06,12,18 02/06/20 [History] Pantoprazole [Protonix] 40 mg PO DAILY@0600 02/17/20 [History] Acetaminophen Tab [Tylenol] 650 mg PO Q6H PRN 08/12/20 [History] Ammonium Lactate Lotion [Lac-Hydrin 12% Lotion] 1 applic TOPICAL BID 08/12/20 [History] Aspirin EC [Ecotrin Low Dose] 81 mg PO DAILY@1700 08/12/20 [History] Cholestyramine (with Sugar) [Cholestyramine Packet] 4 gm PO BID@0800,1700 08/12/20 [History] Ciclopirox Olamine [Loprox 0.77% cream] 1 applic TOPICAL BID 08/12/20 [History] Epoetin Luis [Epogen] 4,000 unit SQ TUTHSA 08/12/20 [History] Ferrous Sulfate [Iron (65 MG Elemental)] 325 mg PO BID@0800,1700 08/12/20 [History] INSULIN ASPART (NovoLOG) [NovoLOG (formulary)] See Protocol SQ ACHS 08/12/20 [History] Insulin Detemir (Levemir) [Levemir] 10 unit SQ HS@2100 08/12/20 [History] Magnesium Hydroxide [Milk of Magnesia Concentrate] 7,200 mg PO DAILY PRN 08/12/20 [History] Melatonin 1 mg PO HS 08/12/20 [History] Menthol [Biofreeze] 1 applic TOPICAL TID 08/12/20 [History] Menthol-Zinc Oxide Oint [Calmoseptine Oint] 1 applic TOPICAL BID 08/12/20 [History] Midodrine HCl [ProAmatine] 10 mg PO DAILY@0800 08/12/20 [History] Multivitamins, Thera [Multivitamin (formulary)] 1 tab PO DAILY@1700 08/12/20 [History] Na Phos,M-B/Na Phos,Di-Ba [Fleet Adult] 133 ml RECTAL DAILY PRN 08/12/20 [History] Sennosides/Docusate Sodium [Senna-S 8.6-50 mg Tablet] 1 tab PO Q12H PRN 08/12/20 [History] bisacodyL [Dulcolax] 10 mg RECTAL DAILY PRN 08/12/20 [History] Amiodarone [Cordarone] 200 mg PO DAILY tab 08/19/20 [Rx] Apixaban [Eliquis] 2.5 mg PO BID tablet 08/19/20 [Rx] Atorvastatin [Lipitor] 40 mg PO DAILY tab 08/19/20 [Rx] Baclofen [Lioresal] 5 mg PO Q8H PRN #0 08/19/20 [Rx] Gabapentin 300 mg PO HS@2100 #3 cap 08/19/20 [Rx] HYDROcodone/APAP 5-325MG [Ferguson 5-325] 1 tab PO Q6HR PRN #12 tab 08/19/20 [Rx] Lactulose [Cephulac] 15 gm PO TID PRN ml 08/19/20 [Rx] Metoprolol Tartrate [Lopressor] 50 mg PO BID #0 tab 08/19/20 [Rx] Sodium Chloride 0.65% Nasal [Deep Sea (Saline)] 2 spray NASAL QID PRN spray 08/19/20 [Rx] hydrALAZINE HCL [Apresoline] 75 mg PO TID tab 08/19/20 [Rx] Follow up Appointment(s)/Referral(s): Ten Mckeon DO [Primary Care Provider] - 1 Week (after discharge from [facility]) Andry Bowie MD [STAFF PHYSICIAN] - 1 Week Discharge Disposition: TRANSFER TO SNF/ECF
[2020-08-19] MEDS: hydrALAZINE HCL 50 MG TAB PO SCH (08:59)
[2020-08-19] MEDS: CLOTRIMAZOLE 1% CREAM 30 GM TUBE TOPICAL SCH (08:59)
[2020-08-19] MEDS: APIXABAN 2.5 MG TABLET PO SCH (08:59)
[2020-08-19] MEDS: FERROUS SULFATE 325 MG TAB PO SCH (08:59)
[2020-08-19] MEDS: ATORVASTATIN 40 MG TAB PO SCH (08:59)
[2020-08-19] MEDS: METOPROLOL TARTRATE 50 MG TAB PO SCH (08:59)
[2020-08-19] MEDS: AMIODARONE 200 MG TAB PO SCH (08:59)
[2020-08-19 12:16] VITALS: BP 160/91; RESP 20
[2020-08-19 12:17] LABS: Glucose,Whole Blood 174 mg/dL (75-99)
[2020-08-19] MEDS: SODIUM CHLORIDE 0.9% 1,000 ML IV SCH (14:26)
--- NOTE | 2020-08-19 17:21 | PN ---
PROGRESS NOTE Patient is seen for followup for end-stage renal disease. This morning patient is sitting up. He is comfortable. Denies any significant complaints. He is scheduled for hemodialysis today as he did not get a treatment on Wednesday. PHYSICAL EXAMINATION: Blood pressure this morning was 150/65, heart rate 60 per minute. He is afebrile. Examination of the lower extremities shows edema 2+ bilaterally. Otherwise, JAIL MANAGER examination is grossly intact. LABS: Labs are not available from today. ASSESSMENT: 1. End-stage renal disease, on hemodialysis on a Wednesday, , Wednesday schedule. Patient could not get dialyzed on Wednesday as the dialyzer clotted and he did not want to restart. He is scheduled for treatment today and he will continue his treatment on a Wednesday, , Wednesday schedule as outpatient. If he is still in the hospital we will dialyze him again tomorrow. 2. Volume overload, increase UF as tolerated. Patient may need extra treatments as outpatient. 3. Anemia of chronic disease. 4. Encephalopathy, mostly metabolic and related to medications, currently improved. PLAN: Okay to discharge patient post dialysis and he will follow up for dialysis tomorrow as outpatient. MMODL / IJN: [id number] /
--- NOTE | 2020-08-19 17:52 | P.PN ---
Progress Note - Text Progress Note Date: 08/19/20 REASON FOR FOLLOWUP: Abnormal x-ray and a question of pneumonia. INTERVAL HISTORY: The patient remains to be afebrile. The patient is breathing comfortably on room air. The patient denies any chest pain, shortness of breath or cough. No nausea, vomiting. No abdominal pain. No diarrhea. PHYSICAL EXAMINATION: Blood pressure 180/90 with a pulse of 70. Temperature is 97.6. He is 95% on room air. General description is a middle-aged male up in the chair in no distress. Respiratory system: Unlabored breathing, decreased intensity of breath sounds. No wheeze. Heart S1, S2. Regular rate and rhythm. Abdomen soft. No tenderness. Extremities: No edema of the feet. LABS: Culture has been negative. DIAGNOSTIC IMPRESSION AND PLAN: Patient admitted to the hospital with mental status changes in this patient with some infiltrate on chest x-ray, however, clinically not behaving as pneumonia and the patient is off the antibiotic therapy. The patient did have a MRI of the thoracolumbar spine and those have been negative. no need for antibiotics on discharge
--- NOTE | 2020-08-21 06:02 | CDI ---
Documentation Clarification Form Date: 08/21/20 From: Deana Coyle Admit Date: 08/12/2020 01:53:00 PM Patient Name: Joel Gillette Visit Number: [id number] Discharge Date: 08/19/2020 03:07:00 PM ATTENTION: The Clinical Documentation Specialists (CDI) and [facility] Coding Staff appreciate your assistance in clarifying documentation. Please respond to the clarification below the line at the bottom and electronically sign. The CDI & [facility] Coding staff will review the response and follow-up if needed. Please note: Queries are made part of the Legal Health Record. If you have any questions, please contact the author of this message via ITS. Dr. Mono Lima, Your patient has the documented diagnosis of unspecified chronic CHF in the H&P under past medical history. Additional information regarding the [type, acuity] of CHF is requested. History/Risk Factors: HTN w ESRD & CHF, PAF, DM type II w CKD & neuropathy Clinical Indicators: History of chronic CHF. VS/Pulse OX: T-97.4, P-74, R-16, BP-169/117, O2-92 BNP: none available 04/12/20 Echocardiogram Results: Overall left ventricular systolic function is normal with an EF between 55-60%. 04/18/20 YAYO: The EF to be in the range of 50% and seems to be on the low normal. 08/12-Chest X Ray: Enlargement of the cardiac silhouette appears similar to the prior exam. Treatment: Lasix 80 mg BID In your professional opinion, can you please clarify the type of chronic CHF if known? [ X] Chronic Systolic Heart Failure (reduced EF) [ ] Chronic Diastolic Heart Failure (preserved EF) [ ] Other, please specify [ ] Unable to determine MTDD
== END 2020-08-19 15:07 | DRG 91 ==
LOC: EC 10:41 → 3SCARD 13:53
PROVIDERS: ADMIT Internal Medicine; ATTEND Internal Medicine
PROC: 5A1D70Z Performance of Urinary Filtration, Intermittent, Less than 6 Hours Per Day (ICD-10-PCS; principal; 2020-08-12)
DX: G92 Toxic encephalopathy (principal); N18.6 End stage renal disease; I13.2 Hypertensive heart and chronic kidney disease with heart failure and with stage 5 chronic kidney disease, or end stage renal disease; I50.22 Chronic systolic (congestive) heart failure; D63.1 Anemia in chronic kidney disease; E83.9 Disorder of mineral metabolism, unspecified; E11.22 Type 2 diabetes mellitus with diabetic chronic kidney disease; E11.42 Type 2 diabetes mellitus with diabetic polyneuropathy; I48.0 Paroxysmal atrial fibrillation; G25.81 Restless legs syndrome; Z99.2 Dependence on renal dialysis; Z79.4 Long term (current) use of insulin; Z20.822 Contact with and (suspected) exposure to COVID-19; T42.6X5A Adverse effect of other antiepileptic and sedative-hypnotic drugs, initial encounter; T40.605A Adverse effect of unspecified narcotics, initial encounter; T42.75XA Adverse effect of unspecified antiepileptic and sedative-hypnotic drugs, initial encounter; I25.5 Ischemic cardiomyopathy; I08.3 Combined rheumatic disorders of mitral, aortic and tricuspid valves; M48.00 Spinal stenosis, site unspecified; H54.8 Legal blindness, as defined in USA; E78.5 Hyperlipidemia, unspecified; I25.10 Atherosclerotic heart disease of native coronary artery without angina pectoris; I25.2 Old myocardial infarction; F32.9 Major depressive disorder, single episode, unspecified; F41.9 Anxiety disorder, unspecified; K21.9 Gastro-esophageal reflux disease without esophagitis; H91.91 Unspecified hearing loss, right ear; G47.33 Obstructive sleep apnea (adult) (pediatric); M47.816 Spondylosis without myelopathy or radiculopathy, lumbar region; M54.2 Cervicalgia; R07.9 Chest pain, unspecified; R77.8 Other specified abnormalities of plasma proteins; R91.8 Other nonspecific abnormal finding of lung field; Z53.20 Procedure and treatment not carried out because of patient's decision for unspecified reasons; Z79.82 Long term (current) use of aspirin; Z79.899 Other long term (current) drug therapy; Z95.5 Presence of coronary angioplasty implant and graft; Z86.69 Personal history of other diseases of the nervous system and sense organs; Z87.39 Personal history of other diseases of the musculoskeletal system and connective tissue; Z87.11 Personal history of peptic ulcer disease; Z87.891 Personal history of nicotine dependence; Z86.19 Personal history of other infectious and parasitic diseases; Z86.14 Personal history of Methicillin resistant Staphylococcus aureus infection; Z87.81 Personal history of (healed) traumatic fracture; Z86.74 Personal history of sudden cardiac arrest; Z98.890 Other specified postprocedural states; Z88.1 Allergy status to other antibiotic agents; Z88.5 Allergy status to narcotic agent; Z88.0 Allergy status to penicillin; Z88.2 Allergy status to sulfonamides; Z88.8 Allergy status to other drugs, medicaments and biological substances; Z83.49 Family history of other endocrine, nutritional and metabolic diseases; Z83.3 Family history of diabetes mellitus; Z82.49 Family history of ischemic heart disease and other diseases of the circulatory system; Z80.8 Family history of malignant neoplasm of other organs or systems; Z83.2 Family history of diseases of the blood and blood-forming organs and certain disorders involving the immune mechanism; Z82.61 Family history of arthritis; Z82.69 Family history of other diseases of the musculoskeletal system and connective tissue; Z82.0 Family history of epilepsy and other diseases of the nervous system
CPT/HCPCS: 36410; 36415; 70450; 70551; 71045; 71046; 72141; 72148; 76937; 80048; 80053; 80202; 80306; 82140; 82330; 82565; 82728; 83540; 83550; 83605; 83735; 84132; 84145; 84439; 84443; 84481; 84484; 85025; 85610; 85730; 86140; 86850; 86900; 86901; 87040; 87635; 87636; 90935; 93005; 94640; 94760; 95816; 96360; 96361; 99285

== ENCOUNTER 2020-09-19 04:05 | Inpatient (IN) | payer MEDICARE, OTHER ==
[2020-09-19] MEDS ORDERED: SODIUM CHLORIDE 0.9% 1,000 ML IV STA ×2 (04:08)
[2020-09-19] MEDS ORDERED: ACETAMINOPHEN IV (For NPO) 1,000 MG in EMPTY BAG 1 BAG IVPB STA (04:08)
[2020-09-19] MEDS ORDERED: ONDANSETRON 4 MG/2 ML VIAL IVP STA (04:08)
[2020-09-19] MEDS ORDERED: KETOROLAC 15 MG/ML 1 ML VIAL IVP STA (04:08)
--- NOTE | 2020-09-19 04:09 | ED ---
Altered Mental Status HPI - General Stated Complaint: Nausea, vomiting Time Seen by Provider: 09/19/20 04:07 Source: RN notes reviewed, old records reviewed Mode of arrival: EMS - History of Present Illness MD Complaint: altered mental status, confusion, decreased responsiveness, weakness -: days(s) Severity: severe Consistency of Symptoms: getting worse Context: history of similar presentation, recent fever Associated Symptoms: loss of appetite, nausea/vomiting, weakness - Related Data Home Medications Medication Instructions Recorded Confirmed Calcium Acetate [PhosLo] 667 mg PO TID@0800,1200,1700 08/05/18 08/12/20 Furosemide [Lasix] 80 mg PO BID@0600,1800 04/13/19 08/12/20 Triamcinolone 0.1% Ointment 1 applic TOPICAL BID 04/13/19 08/12/20 [Kenalog] hydrOXYzine pamoate [Vistaril] 50 mg PO QID@00,06,12,18 02/06/20 08/12/20 Pantoprazole [Protonix] 40 mg PO DAILY@0600 02/17/20 08/12/20 Acetaminophen Tab [Tylenol] 650 mg PO Q6H PRN 08/12/20 08/12/20 Ammonium Lactate Lotion 1 applic TOPICAL BID 08/12/20 08/12/20 [Lac-Hydrin 12% Lotion] Aspirin EC [Ecotrin Low Dose] 81 mg PO DAILY@1700 08/12/20 08/12/20 Cholestyramine (with Sugar) 4 gm PO BID@0800,1700 08/12/20 08/12/20 [Cholestyramine Packet] Ciclopirox Olamine [Loprox 0.77% 1 applic TOPICAL BID 08/12/20 08/12/20 cream] Epoetin Luis [Epogen] 4,000 unit SQ TUTHSA 08/12/20 08/12/20 Ferrous Sulfate [Iron (65 MG 325 mg PO BID@0800,1700 08/12/20 08/12/20 Elemental)] INSULIN ASPART (NovoLOG) [NovoLOG See Protocol SQ ACHS 08/12/20 08/12/20 (formulary)] Insulin Detemir (Levemir) [Levemir] 10 unit SQ HS@2100 08/12/20 08/12/20 Magnesium Hydroxide [Milk of 7,200 mg PO DAILY PRN 08/12/20 08/12/20 Magnesia Concentrate] Melatonin 1 mg PO HS 08/12/20 08/12/20 Menthol [Biofreeze] 1 applic TOPICAL TID 08/12/20 08/12/20 Menthol-Zinc Oxide Oint 1 applic TOPICAL BID 08/12/20 08/12/20 [Calmoseptine Oint] Midodrine HCl [ProAmatine] 10 mg PO DAILY@0800 08/12/20 08/12/20 Multivitamins, Thera [Multivitamin 1 tab PO DAILY@1700 08/12/20 08/12/20 (formulary)] Na Phos,M-B/Na Phos,Di-Ba [Fleet 133 ml RECTAL DAILY PRN 08/12/20 08/12/20 Adult] Sennosides/Docusate Sodium 1 tab PO Q12H PRN 08/12/20 08/12/20 [Senna-S 8.6-50 mg Tablet] bisacodyL [Dulcolax] 10 mg RECTAL DAILY PRN 08/12/20 08/12/20 Previous Rx's Medication Instructions Recorded Amiodarone [Cordarone] 200 mg PO DAILY tab 08/19/20 Apixaban [Eliquis] 2.5 mg PO BID tablet 08/19/20 Atorvastatin [Lipitor] 40 mg PO DAILY tab 08/19/20 Baclofen [Lioresal] 5 mg PO Q8H PRN #0 08/19/20 Gabapentin 300 mg PO HS@2100 #3 cap 08/19/20 HYDROcodone/APAP 5-325MG [[place] 1 tab PO Q6HR PRN #12 tab 08/19/20 5-325] Lactulose [Cephulac] 15 gm PO TID PRN ml 08/19/20 Metoprolol Tartrate [Lopressor] 50 mg PO BID #0 tab 08/19/20 Sodium Chloride 0.65% Nasal [Deep 2 spray NASAL QID PRN spray 08/19/20 Sea (Saline)] hydrALAZINE HCL [Apresoline] 75 mg PO TID tab 08/19/20 Allergies Allergy/AdvReac Type Severity Reaction Status Date / Time bumetanide [From Bumex] Allergy Hallucinati Verified 08/12/20 12:19 ons codeine Allergy Unknown Verified 08/12/20 12:19 Penicillins Allergy Anaphylaxis Verified 08/12/20 12:19 sulfadiazine Allergy Unknown Verified 08/12/20 12:19 morphine AdvReac Confusion Verified 08/12/20 12:19 rivaroxaban [From Xarelto] AdvReac Bloody Nose Verified 08/12/20 12:19 spironolactone AdvReac Hallucinati Verified 08/12/20 12:19 ons All antibiotics except Keflex Allergy Unknown Uncoded 08/12/20 10:45 Childhood Review of Systems ROS Statement: Those systems with pertinent positive or pertinent negative responses have been documented in the HPI. ROS Other: All systems not noted in ROS Statement are negative. Past Medical History Past Medical History: Atrial Fibrillation, Coronary Artery Disease (CAD), Heart Failure, Diabetes Mellitus, Dialysis, Eye Disorder, GERD/Reflux, Hearing Disorder / Deafness, Hyperlipidemia, Hypertension, Myocardial Infarction (ND), Renal Disease, Syncope Additional Past Medical History / Comment(s): IDDM type II, neuropathy bilateral hands/feet, ESRD with hemodialysis on /W/, chronic anemia, LVH, Afib with RVR, MIs, chronic CHF, R eye blindness, L eye legally blind, RLS, pt unsure if he has gout, vertigo at times, balance issues at times, stomach ulcer at age 17yrs, sinus problems, very HUGHES R ear. Last Myocardial Infarction Date:: 08/09/18 History of Any Multi-Drug Resistant Organisms: MRSA Date of last positivie culture/infection: 05/02/20 MDRO Source:: Blood Past Surgical History: Heart Catheterization, Heart Catheterization With Stent Additional Past Surgical History / Comment(s): TTT, PD catheter placement/since removed, 2016 L arm fistula, fistula gram with balloon for stenosis, L eye vitrectomy, thyroid needle aspiration-negative, L leg cyst, colonoscopy with benign polypectomy. port placed in chest Right side. Past Anesthesia/Blood Transfusion Reactions: Postoperative Nausea & Vomiting (PONV) Date of Last Stent Placement:: 03-03-18 Past Psychological History: Anxiety, Depression Additional Psychological History / Comment(s): Pt resides with his spouse, AND S [place]. He is legally blind L eye and blind in R eye. He is very HUGHES in R ear. He has a cane and walker which he uses prn. His spouse and son drive. Pt uses glasses and a magnifier to read. He has depression which he states is constantly present but not increased. He denies thoughts/plans of suicide. Smoking Status: Former smoker Past Alcohol Use History: None Reported Additional Past Alcohol Use History / Comment(s): Pt started smoking in 1972 and quit in 1995. Past Drug Use History: None Reported - Past Family History Father Family Medical History: Cancer, Coronary Artery Disease (CAD), Hyperlipidemia Additional Family Medical History / Comment(s): Lung/BRAIN CANCER Mother Family Medical History: Diabetes Mellitus, Deep Vein Thrombosis (DVT), Osteoarthritis (OA) Additional Family Medical History / Comment(s): DJD Sister(s) Family Medical History: Diabetes Mellitus Additional Family Medical History / Comment(s): Patient has one sister with diabetes mellitus type 2, SLE, MS. Brother(s) Family Medical History: Diabetes Mellitus Additional Family Medical History / Comment(s): Patient has 4 kids no major medical problems. Daughter(s) Family Medical History: No Reported History Additional Family Medical History / Comment(s): Patient has 2 daughters no major medical problems. Son(s) Family Medical History: No Reported History Additional Family Medical History / Comment(s): Patient has 2 sons no major medical problems. General Exam Limitations: altered mental status, physical limitation General appearance: alert, in no apparent distress Head exam: Present: atraumatic, normocephalic, normal inspection Eye exam: Present: normal appearance, PERRL, EOMI. Absent: scleral icterus, conjunctival injection, periorbital swelling ENT exam: Present: normal exam, mucous membranes moist Neck exam: Present: normal inspection. Absent: tenderness, meningismus, lymphadenopathy Respiratory exam: Present: normal lung sounds bilaterally. Absent: respiratory distress, wheezes, rales, rhonchi, stridor Cardiovascular Exam: Present: regular rate, normal rhythm, normal heart sounds. Absent: systolic murmur, diastolic murmur, rubs, gallop, clicks GI/Abdominal exam: Present: soft, normal bowel sounds. Absent: distended, tenderness, guarding, rebound, rigid Extremities exam: Present: normal inspection, full ROM, normal capillary refill. Absent: tenderness, pedal edema, joint swelling, calf tenderness Back exam: Present: normal inspection Neurological exam: Present: alert, oriented X3, CN II-XII intact Psychiatric exam: Present: normal affect, normal mood Skin exam: Present: warm, dry, intact, normal color. Absent: rash Course Vital Signs 09/19/20 04:07 Temperature 102 F H Pulse Rate 87 Respiratory 18 Rate Blood Pressure 106/78 O2 Sat by Pulse 96 Oximetry - Reevaluation(s) Reevaluation #1: 09/19/20 05:56 Medical record is reviewed Reevaluation #2: 09/19/20 05:56 Patient has no significant clinical improvement here in the ER Reevaluation #3: 09/19/20 05:56 Patient is informed results and questions are answered Reevaluation #4: 09/19/20 05:56 Patient is insignificant DKA with fever, unknown source - Consultations Consultation #1: Spoke with Dr. Christian regarding patient who agrees to admit the patient Medical Decision Making - Medical Decision Making 60 male coming in for unresponsive not eating taking medications per staff. Patient has significant fever here in the ER. No significant source is found. Patient be admitted for treatment for possible bacteremia. Patient is a known dialysis patient - Lab Data Result diagrams: 09/19/20 04:57 09/19/20 04:57 Lab Results 09/19/20 09/19/20 09/19/20 Range/Units 04:57 04:57 04:57 WBC 15.8 H (3.8-10.6) k/uL RBC 3.62 L (4.30-5.90) m/uL Hgb 11.1 L (13.0-17.5) gm/dL Hct 34.2 L (39.0-53.0) % MCV 94.3 (80.0-100.0) fL MCH 30.5 (25.0-35.0) pg MCHC 32.4 (31.0-37.0) g/dL RDW 15.0 (11.5-15.5) % Plt Count 146 L (150-450) k/uL MPV 7.9 Neutrophils % 94 % Lymphocytes % 1 % Monocytes % 4 % Eosinophils % 0 % Basophils % 0 % Neutrophils # 14.8 H (1.3-7.7) k/uL Lymphocytes # 0.2 L (1.0-4.8) k/uL Monocytes # 0.6 (0-1.0) k/uL Eosinophils # 0.0 (0-0.7) k/uL Basophils # 0.1 (0-0.2) k/uL Sodium 135 L (137-145) mmol/L Potassium 5.0 (3.5-5.1) mmol/L Chloride 94 L (98-107) mmol/L Carbon Dioxide 22 (22-30) mmol/L Anion Gap 19 mmol/L BUN 90 H (9-20) mg/dL Creatinine 6.03 H (0.66-1.25) mg/dL Est GFR (CKD-EPI)AfAm 11 (>60 ml/min/1.73 sqM) Est GFR (CKD-EPI)NonAf 9 (>60 ml/min/1.73 sqM) Glucose 236 H (74-99) mg/dL Plasma Lactic Acid Ramirez 1.6 (0.7-2.0) mmol/L Calcium 9.8 (8.4-10.2) mg/dL Magnesium 2.3 (1.6-2.3) mg/dL Total Bilirubin 0.9 (0.2-1.3) mg/dL AST 72 H (17-59) U/L ALT 61 H (4-49) U/L Alkaline Phosphatase 325 H (38-126) U/L Ammonia 19 (<30) umol/L Lactate Dehydrogenase 651 H (313-618) U/L C-Reactive Protein 1.7 H (<1.0) mg/dL Total Protein 7.3 (6.3-8.2) g/dL Albumin 4.3 (3.5-5.0) g/dL - EKG Data -: EKG Interpreted by Me (EKG sinus rhythm 86 TX 180 QRS 82 QTC 440) - Radiology Data Radiology results: report reviewed (Chest x-ray does have some vascular congestion), image reviewed Critical Care Time Critical Care Time: Yes Total Critical Care Time: 31 Disposition Clinical Impression: Dialysis patient, ANNE (acute kidney injury), Vomiting, Vertigo, Weakness, Altered mental status Disposition: ADMITTED IP TO THIS [facility] Condition: Serious Is patient prescribed a controlled substance at d/c from ED?: No Referrals: Ten Mckeon DO [Primary Care Provider] - 1-2 days
[2020-09-19 05:09] LABS: Basophils # (A) 0.1 k/uL (0-0.2); Basophils % (A) 0 %; Eosinophils % (A) 0 %; HCT 34.2 % (39.0-53.0); HGB 11.1 gm/dL (13.0-17.5); Lymphocytes # (A) 0.2 k/uL (1.0-4.8); Lymphocytes % (A) 1 %; MCH 30.5 pg (25.0-35.0); MCHC 32.4 g/dL (31.0-37.0); MCV 94.3 fL (80.0-100.0); Mean Platelet Volume 7.9; Monocytes # (A) 0.6 k/uL (0-1.0); Monocytes % (A) 4 %; Neutrophils # (A) 14.8 k/uL (1.3-7.7); Neutrophils % (A) 94 %; Platelet Count 146 k/uL (150-450); RBC 3.62 m/uL (4.30-5.90); WBC 15.8 k/uL (3.8-10.6)
[2020-09-19 05:17] LABS: Lactic Acid, Venous 1.6 mmol/L (0.7-2.0)
[2020-09-19 05:21] LABS: Albumin 4.3 g/dL (3.5-5.0); C Reactive Protein 1.7 mg/dL (<1.0); Calcium 9.8 mg/dL (8.4-10.2); Magnesium 2.3 mg/dL (1.6-2.3); Total Bilirubin 0.9 mg/dL (0.2-1.3); Total Protein 7.3 g/dL (6.3-8.2)
--- NOTE | 2020-09-19 05:39 | XR ---
EXAMINATION TYPE: XR chest 1V portable DATE OF EXAM: 09/19/2020 COMPARISON: 08/12/2020 HISTORY: Pneumonia. Cough TECHNIQUE: Single view FINDINGS: Heart is enlarged. There is no gross heart failure. There is mild congestion. I see no def inite pleural effusion. IMPRESSION: Cardiomegaly and mild pulmonary congestion. Pulmonary vascularity slightly increased comp ared to old exam.
[2020-09-19] MEDS ORDERED: AZITHROMYCIN 500 MG in SODIUM CHLORIDE 0.9% 250 ML IVPB STA (05:51)
[2020-09-19] MEDS ORDERED: ACETAMINOPHEN TAB 325 MG TAB PO PRN (05:51)
[2020-09-19] MEDS ORDERED: IBUPROFEN 400 MG TAB PO PRN (05:51)
[2020-09-19] MEDS ORDERED: NALOXONE 0.4 MG/ML 1 ML VIAL IV PRN (05:51)
[2020-09-19 06:04] LABS: INR 1.1 (<1.2); Prothrombin Time 11.7 sec (9.0-12.0)
[2020-09-19] MEDS: SODIUM CHLORIDE 0.9% 1,000 ML IV SCH ×2 (06:41→16:50)
--- NOTE | 2020-09-19 07:58 | US ---
EXAMINATION TYPE: US gallbladder DATE OF EXAM: 09/19/2020 COMPARISON: NONE CLINICAL HISTORY: 60-year-old male status post cholecystectomy, N/V, arm and leg nerve pain, diabetic TECHNIQUE: Multiple sonographic images of the right upper quadrant are obtained. FINDINGS: EXAM MEASUREMENTS: Liver Length: 15.0cm Gallbladder: Surgically absent CBD: 0.5 cm Right Kidney: 10.9 x 4.9 x 5.7 cm Pancreas: not seen due to bowel gas Liver: Slightly nodular contour with surrounding mild ascites. Hypoechoic echotexture. Gallbladder: Surgically absent Evidence for sonographic Otero's sign: no CBD: wnl Right Kidney: No hydronephrosis. IMPRESSION: 1. Slight nodular contour to the liver. Correlate for underlying cirrhosis. The hypoechoic appearance may be seen with hepatitis. Clinically correlate. 2. Mild perihepatic ascites. 3. Status post cholecystectomy. No biliary ductal dilatation.
[2020-09-19] MEDS ORDERED: SENNOSIDES-DOCUSATE SODIUM 1 EACH TAB PO PRN (09:23)
[2020-09-19] MEDS ORDERED: LACTULOSE 20 GM/30 ML CUP PO PRN (09:23)
[2020-09-19] MEDS ORDERED: SODIUM CHLORIDE 0.65% NASAL SPRAY 44 ML BTL NASAL PRN (09:23)
[2020-09-19] MEDS: DARBEPOETIN ALFA 40 MCG/0.4 ML SYRINGE SQ SCH (10:18)
[2020-09-19] MEDS: MEROPENEM 1 GM in SODIUM CHLORIDE 0.9% 100 ML IVPB SCH ×2 (10:18→23:02)
--- NOTE | 2020-09-19 11:00 | ECHOF ---
Referral Reason:endocarditis MEASUREMENTS -------- HEIGHT: 167.6 cm WEIGHT: 104.3 kg BP: RVIDd: 4.2 cm (< 3.3) IVSd: 1.4 cm (0.6 - 1.1) LVIDd: 3.7 cm (3.9 - 5.3) LVPWd: 1.6 cm (0.6 - 1.1) IVSs: 1.7 cm LVIDs: 3.2 cm LVPWs: 1.6 cm Ao Diam: 3.3 cm (2.0 - 3.7) AV Cusp: 1.6 cm (1.5 - 2.6) LA Diam: 3.9 cm (2.7 - 3.8) MV EXCURSION: 18.959 mm (> 18.000) MV EF SLOPE: 92 mm/s (70 - 150) EPSS: 1.3 cm MV E Bryn: 1.13 m/s MV DecT: 237 ms MV A Bryn: 0.94 m/s MV E/A Ratio: 1.21 AV maxP.76 mmHg AV meanP.12 mmHg RAP: 15.00 mmHg RVSP: 57.15 mmHg FINDINGS -------- This was a technically adequate study. The left ventricular size is normal. There is moderate concentric left ventricular hypertrophy. O verall left ventricular systolic function is normal with, an EF between 55 - 60 %. The right ventricle is moderately enlarged. , and the LA measures 3.9cm. The right atrial size is normal. Aortic valve is trileaflet and is moderately thickened. There is mild aortic stenosis present. Pe ak/mean gradient across the Aortic Valve is 23.76mmHg / 12.12mmHg. The mitral valve is normal. The mitral valve leaflets are mildly thickened. Mild mitral regurgita tion is present. The tricuspid valve appears structurally normal. Mild tricuspid regurgitation present. There is m oderate to severe pulmonary hypertension. The right ventricular systolic pressure, as measured by Kayden strickland, is 57.15mmHg. There is no pulmonic regurgitation present. The aortic root size is normal. The inferior vena cava is mildly dilated. There is no pericardial effusion. CONCLUSIONS -------- 1. The left ventricular size is normal. 2. There is moderate concentric left ventricular hypertrophy. 3. Overall left ventricular systolic function is normal with, an EF between 55 - 60 %. 4. The right ventricle is moderately enlarged. 5. Aortic valve is trileaflet and is moderately thickened. 6. There is mild aortic stenosis present. 7. Peak/mean gradient across the Aortic Valve is 23.76mmHg / 12.12mmHg. 8. The mitral valve leaflets are mildly thickened. 9. Mild mitral regurgitation is present. 10. Mild tricuspid regurgitation present. 11. There is moderate to severe pulmonary hypertension. 12. The right ventricular systolic pressure, as measured by Doppler, is 57.15mmHg. 13. The inferior vena cava is mildly dilated. 14. There is no pericardial effusion. PSYCHIATRIC ORDERLY: Orquidea Colvin RDCS
[2020-09-19 11:29] LABS: Amorphous Sediment,Urine Rare /hpf; Appearance,Urine Cloudy (Clear); Bacteria,Urine Rare /hpf; Bilirubin,Urine 1+ (Negative); Blood,Urine Moderate (Negative); Color,Urine Yellow; Glucose,Urine (UA) Negative (Negative); Ketones,Urine Negative (Negative); Leukocyte Esterase,Urine Small (Negative); Nitrite,Urine Negative (Negative); PH, Urine 5.5 (5.0-8.0); Protein,Urine 2+ (Negative); RBC,Urine 9 /hpf (0-5); Urobilinogen,Urine <2.0 mg/dL (<2.0); WBC,Urine 4 /hpf (0-5)
[2020-09-19 12:01] LABS: Glucose,Whole Blood 195 mg/dL (75-99)
[2020-09-19] MEDS: hydrALAZINE HCL 25 MG TAB PO SCH ×2 (12:14→17:00)
--- NOTE | 2020-09-19 12:15 | P.HPIM ---
<Katelyn Wesley A - Last Filed: 09/19/20 11:47> History of Present Illness H&P Date: 09/19/20 HISTORY OF PRESENT ILLNESS This is a 60-year-old male patient of Dr. Mckeon currently residing at [facility] under the care of Dr. 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 Patient was hospitalized in April 2020 at which time he was treated for sepsis and MRSA bacteremia of unclear etiology with metabolic encephalopathy vasovagal episode requiring brief CPR and patient was transferred to [facility]. Patient was treated for MRSA osteomyelitis of the lumbar spine. Patient was discharged to [facility] for subacute rehab and was transferred from there yesterday to [facility] emergency center. Patient apparently had emesis after hemodialysis treatment. He was complaining of nausea and easy had decreased oral intake. He is complaining of dizziness. Patient had a drop in his blood pressure and has been refusing all his medications. On examination, patient is complaining of low back pain and has refused MRI of the lumbar spine. Temperature max 100.2, heart rate in the 60s to 80s, blood pressure 106/78, pulse ox 96% on 3 L nasal cannula. WBC 15.8, hemoglobin 11.1, platelet count 146. Sodium 135, potassium 5.0, chloride 94, CO2 22, BUN 19 creatinine 6.03. Blood sugar 236. Lactic acid 1.6. Magnesium 2.3, total bilirubin 0.9, AST 72, ALT 61 alkaline phosphatase 325. LDH 651. C- reactive protein 1.7. Urinalysis cloudy, blood moderate, leukoesterase small, RBCs 9, bacteria rare. Coronavirus PCR not detected. Gallbladder ultrasound reveals correlate for underlying cirrhosis. Hypoechoic appearance may be seen with hepatitis. Mild perihepatic ascites. Status post cholecystectomy. No biliary ductal dilatation. Chest x-ray reveals cardiomegaly and mild pulmonary congestion. Pulmonary vascularity slightly increased compared to old exam. Echocardiogram reveals EF of 55-60% with moderate concentric left ventricular hypertrophy, mild aortic stenosis, mild mitral regurgitation, mild tricuspid regurgitation, moderate to severe pulmonary hypertension. No mention of vegetation. Patient admitted to the [facility] floor and consults requested with infectious disease and nephrology. REVIEW OF SYSTEMS Constitutional: Noted fever, no chills, no night sweats. No weight change. Reported weakness, reported fatigue Reported lethargy. Reported daytime sleepiness. EENT: No headache. No blurred vision or double vision, no loss of vision. No loss of Hearing, no ringing in the ears, no dizziness. No nasal drainage or congestion. No epistaxis. No sore throat. Lungs: No shortness of breath, cough, no sputum production. No wheezing. Cardiovascular: No chest pain, no lower extremity edema. No palpitations. No paroxysmal nocturnal dyspnea. No orthopnea. No lightheadedness or dizziness. No syncopal episodes. Abdominal: No abdominal pain. Reported nausea and vomiting. No diarrhea. No constipation. No bloody or tarry stools. Reported loss of appetite. Genitourinary: No dysuria, increased frequency, urgency. No urinary retention. Patient makes a small amount of urine. Musculoskeletal: No myalgias. Noted muscle weakness, no gait dysfunction, no frequent falls. Reported back pain. No neck pain. Integumentary: No wounds, no lesions. No rash or pruritus. No unusual bruising. No change in hair or nails. Neurologic: No aphasia. No facial droop. Noted change in mentation. No head injury. No headache. No paralysis. No paresthesia. Psychiatric: No depression. No anxiety. No mood swings. Endocrine: Noted abnormal blood sugars. No weight change. SOCIAL HISTORY Patient was a smoker for 23 years and quit in 1995. No alcohol use, illicit drug use. He lives at home with his and has been in rehab at [facility]. FAMILY HISTORY Father at age 72 from brain cancer also had history of coronary artery disease. Mother is 83-year-old with history of diabetes type 2 and osteoarthritis. Patient has one sister with diabetes, SLE and MS. Patient's 1 brother with diabetes and one with no major medical problems. Patient has 2 daughters with no major medical problems and 2 sons with no major medical problems.. PHYSICAL EXAMINATION Gen: This is a 60-year-old male patient resting in bed. He is currently receiving hemodialysis. He appears to be in no acute distress. HEENT: Head is atraumatic, normocephalic. Pupils equal, round. Sclerae is anicteric. NECK: Supple. No JVD. No lymphadenopathy. No thyromegaly. LUNGS: Clear to auscultation. No wheezes or rhonchi. No intercostal retractions. HEART: Regular rate and rhythm. 2/6 systolic murmur. ABDOMEN: Soft. Bowel sounds are present. No masses. No tenderness. EXTREMITIES: No pedal edema. No calf tenderness. NEUROLOGICAL: Patient is lethargic, he wakens briefly to answer a few questions and then closes his eyes. Unable to follow simple commands only. Cranial nerves 2 through 12 are grossly intact. ASSESSMENT AND PLAN 1. Sepsis of unclear etiology. Patient started on meropenem, blood cultures in progress, consult with infectious disease. MRI of the lumbar spine has been ordered but patient is refusing. Echocardiogram to rule out vegetation. 2. Infectious metabolic encephalopathy. Continue as in #1. Hold gabapentin. No SLR today 3. Complaints of lumbar pain, nausea vomiting and dizziness. Continue Zofran 4 mg IV every 8 hours as needed. 4. Recent treatment for MRSA bacteremia and lumbar spine osteomyelitis, com pleted course of antibiotics. 5. End-stage renal disease on hemodialysis. Consult with nephrology appreciated. Continue PhosLo 667 mg 3 times daily, Aranesp 40 g subcu every 7 days, hemodialysis. 6. Degenerative disc disease and spinal stenosis. Hold gabapentin. Continue baclofen 5 mg every 8 hours as needed. 7. History of coronary artery disease with previous PTCA to LAD and circumflex. Continue aspirin 81 mg daily, atorvastatin 40 mg at bedtime, Lopressor 25 mg twice daily. 8. Paroxysmal atrial fibrillation. Continue eliquis 2.5 mg twice daily, Lopressor, amiodarone 200 mg daily 8. Ischemic cardiomyopathy. Continue Lopressor, Lasix 80 mg twice daily, metolazone 5 mg daily. 9. Diabetes mellitus type 2, insulin requiring. Continue Levemir 10 units at bedtime, add NovoLog scale before meals and at bedtime, 10. Diabetic neuropathy. Hold gabapentin. 11. Hypertension. Continue hydralazine 75 mg 3 times daily. 12. Anemia of chronic disease. Continue ferrous sulfate 325 mg twice daily, Aranesp 40 g subcu every 7 days. 13. GI prophylaxis. Continue Protonix. 14. DVT prophylaxis. Leandra Patient will be admitted to the hospital for a minimum of 2 night stay. DISCHARGE PLAN Return to [facility]. Impression and plan of care have been directed as dictated by the signing physician. Katelyn Wesley nurse practitioner acting as scribe for signing physician. Past Medical History Past Medical History: Atrial Fibrillation, Coronary Artery Disease (CAD), Heart Failure, Diabetes Mellitus, Dialysis, Eye Disorder, GERD/Reflux, Hearing Disorder / Deafness, Hyperlipidemia, Hypertension, Myocardial Infarction ([place]), Renal Disease, Syncope Additional Past Medical History / Comment(s): IDDM type II, neuropathy bilateral hands/feet, ESRD with hemodialysis on M/W/, chronic anemia, LVH, Afib with RVR, MIs, chronic CHF, R eye blindness, L eye legally blind, RLS, pt unsure if he has gout, vertigo at times, balance issues at times, stomach ulcer at age 17yrs, sinus problems, very VENETIE R ear. Last Myocardial Infarction Date:: 08/09/18 History of Any Multi-Drug Resistant Organisms: MRSA Date of last positivie culture/infection: 05/02/20 MDRO Source:: Blood Past Surgical History: Heart Catheterization, Heart Catheterization With Stent Additional Past Surgical History / Comment(s): TTT, PD catheter placement/since removed, 2016 L arm fistula, fistula gram with balloon for stenosis, L eye vitrectomy, thyroid needle aspiration-negative, L leg cyst, colonoscopy with benign polypectomy. port placed in chest Right side. Past Anesthesia/Blood Transfusion Reactions: Postoperative Nausea & Vomiting (PONV) Date of Last Stent Placement:: 03-03-18 Past Psychological History: Anxiety, Depression Additional Psychological History / Comment(s): Pt resides with his spouse, AND SON. He is legally blind L eye and blind in R eye. He is very VENETIE in R ear. He has a cane and walker which he uses prn. His spouse and son drive. Pt uses glasses and a magnifier to read. He has depression which he states is constantly present but not increased. He denies thoughts/plans of suicide. Smoking Status: Never smoker Past Alcohol Use History: None Reported Additional Past Alcohol Use History / Comment(s): Pt started smoking in 1972 and quit in 1995. Past Drug Use History: None Reported - Past Family History Father Family Medical History: Cancer, Coronary Artery Disease (CAD), Hyperlipidemia Additional Family Medical History / Comment(s): Lung/BRAIN CANCER Mother Family Medical History: Diabetes Mellitus, Deep Vein Thrombosis (DVT), Osteoarthritis (OA) Additional Family Medical History / Comment(s): DJD Sister(s) Family Medical History: Diabetes Mellitus Additional Family Medical History / Comment(s): Patient has one sister with diabetes mellitus type 2, SLE, MS. Brother(s) Family Medical History: Diabetes Mellitus Additional Family Medical History / Comment(s): Patient has 4 kids no major medical problems. Daughter(s) Family Medical History: No Reported History Additional Family Medical History / Comment(s): Patient has 2 daughters no major medical problems. Son(s) Family Medical History: No Reported History Additional Family Medical History / Comment(s): Patient has 2 sons no major medical problems. Medications and Allergies Home Medications Medication Instructions Recorded Confirmed Type RX: Calcium Acetate [PhosLo] 667 mg PO TID@0800,1200,1700 08/05/18 09/19/20 History RX: Furosemide [Lasix] 80 mg PO BID@0600,1800 04/13/19 09/19/20 History RX: hydrOXYzine pamoate [Vistaril] 50 mg PO QID@00,06,12,18 02/06/20 09/19/20 History RX: Pantoprazole [Protonix] 40 mg PO DAILY@0600 02/17/20 09/19/20 History RX: Acetaminophen Tab [Tylenol] 650 mg PO Q6H PRN 08/12/20 09/19/20 History RX: Aspirin EC [Ecotrin Low Dose] 81 mg PO DAILY@1700 08/12/20 09/19/20 History RX: Epoetin Luis [Epogen] 4,000 unit SQ TUTHSA 08/12/20 09/19/20 History RX: Ferrous Sulfate [Iron (65 MG 325 mg PO BID@0600,1700 08/12/20 09/19/20 History Elemental)] RX: INSULIN ASPART (NovoLOG) See Protocol SQ ACHS 08/12/20 09/19/20 History [NovoLOG (formulary)] RX: Insulin Detemir (Levemir) 10 unit SQ HS@2100 08/12/20 09/19/20 History [Levemir] RX: Melatonin 1 mg PO HS 08/12/20 09/19/20 History RX: Midodrine HCl [ProAmatine] 10 mg PO DAILY@0800 08/12/20 09/19/20 History RX: Multivitamins, Thera 1 tab PO DAILY@1700 08/12/20 09/19/20 History [Multivitamin (formulary)] RX: Na Phos,M-B/Na Phos,Di-Ba 133 ml RECTAL DAILY PRN 08/12/20 09/19/20 History [Fleet Adult] RX: Sennosides/Docusate Sodium 1 tab PO Q12H PRN 08/12/20 09/19/20 History [Senna-S 8.6-50 mg Tablet] RX: bisacodyL [Dulcolax] 10 mg RECTAL DAILY PRN 08/12/20 09/19/20 History RX: Baclofen [Lioresal] 5 mg PO Q8H PRN #0 08/19/20 09/19/20 Rx RX: Gabapentin 300 mg PO HS@2100 #3 cap 08/19/20 09/19/20 Rx RX: HYDROcodone/APAP 5-325MG 1 tab PO Q6HR PRN #12 tab 08/19/20 09/19/20 Rx [Galena 5-325] RX: Lactulose [Cephulac] 15 gm PO TID PRN ml 08/19/20 09/19/20 Rx RX: Sodium Chloride 0.65% Nasal 2 spray NASAL QID PRN spray 08/19/20 09/19/20 Rx [Deep Sea (Saline)] Cholestyramine/Aspartame 4 gm PO BID@0800,1700 09/19/20 09/19/20 History [Cholestyramine Light Packet] Liquacel 30 ml PO BID@0800,1700 09/19/20 09/19/20 History Metoprolol Tartrate [Lopressor] 25 mg PO BID@0800,1700 09/19/20 09/19/20 History Ondansetron HCl [Zofran] 4 mg PO Q6H PRN 09/19/20 09/19/20 History RX: Amiodarone [Cordarone] 200 mg PO DAILY@0800 09/19/20 09/19/20 History RX: Apixaban [Eliquis] 2.5 mg PO BID@0800,1700 09/19/20 09/19/20 History RX: Atorvastatin [Lipitor] 40 mg PO HS 09/19/20 09/19/20 History hydrALAZINE HCL [Apresoline] 75 mg PO TID@0800,1200,1700 09/19/20 09/19/20 His tory metOLazone [Zaroxolyn] 5 mg PO DAILY@0600 09/19/20 09/19/20 History Allergies Allergy/AdvReac Type Severity Reaction Status Date / Time codeine Allergy Unknown Verified 09/19/20 06:44 Penicillins Allergy Anaphylaxis Verified 09/19/20 06:44 sulfadiazine Allergy Unknown Verified 09/19/20 06:44 bumetanide [From Bumex] AdvReac Hallucinati Verified 09/19/20 06:44 ons morphine AdvReac Confusion Verified 09/19/20 06:44 rivaroxaban [From Xarelto] AdvReac Bloody Nose Verified 09/19/20 06:44 spironolactone AdvReac Hallucinati Verified 09/19/20 06:44 ons All antibiotics except Keflex Allergy Unknown Uncoded 09/19/20 06:44 Childhood Physical Exam Vitals: Vital Signs Temp Pulse Pulse Resp BP BP Pulse Ox 09/19/20 08:00 99.0 F 67 18 113/68 98 09/19/20 07:41 99.9 F H 69 19 108/62 100 09/19/20 06:07 100.7 F H 76 18 142/73 98 09/19/20 04:07 102 F H 87 18 106/78 96 Intake and Output 09/18/20 09/19/20 09/19/20 22:59 06:59 14:59 Other: Weight 104.326 kg 104.326 kg Results CBC & Chem 7: 09/19/20 04:57 09/19/20 04:57 Labs: Abnormal Lab Results - Last 24 Hours (Table) 09/19/20 09/19/20 Range/Units 04:57 04:57 WBC 15.8 H (3.8-10.6) k/uL RBC 3.62 L (4.30-5.90) m/uL Hgb 11.1 L (13.0-17.5) gm/dL Hct 34.2 L (39.0-53.0) % Plt Count 146 L (150-450) k/uL Neutrophils # 14.8 H (1.3-7.7) k/uL Lymphocytes # 0.2 L (1.0-4.8) k/uL Sodium 135 L (137-145) mmol/L Chloride 94 L (98-107) mmol/L BUN 90 H (9-20) mg/dL Creatinine 6.03 H (0.66-1.25) mg/dL Glucose 236 H (74-99) mg/dL AST 72 H (17-59) U/L ALT 61 H (4-49) U/L Alkaline Phosphatase 325 H (38-126) U/L Lactate Dehydrogenase 651 H (313-618) U/L C-Reactive Protein 1.7 H (<1.0) mg/dL Thrombosis Risk Factor Assmnt - Choose All That Apply Any of the Below Risk Factors Present?: No Other Risk Factors: Yes Each Risk Factor Represents 2 Points: Age 61-74 years Thrombosis Risk Factor Assessment Total Risk Factor Score: 2 Thrombosis Risk Factor Assessment Level: Low Risk <Cordelia Pantoja - Last Filed: 09/26/20 18:40> Physical Exam Vitals: Vital Signs Temp Pulse Resp BP Pulse Ox 09/26/20 14:07 98.1 F 66 18 179/71 99 09/26/20 11:16 98.8 F 98 156/89 09/26/20 08:35 99 09/26/20 06:50 97.7 F 104 H 17 143/86 99 09/26/20 03:45 97 09/26/20 02:00 97.7 F 60 17 161/83 100 09/25/20 19:25 98.5 F 61 18 178/97 100 Intake and Output 09/26/20 09/26/20 09/26/20 06:59 14:59 22:59 Output Total 3800 Balance -3800 Output: Hemodialysis 3800 Other: Voiding Method Diaper Incontinent # Voids 1 # Bowel Movements 1 Results CBC & Chem 7: 09/23/20 06:43 09/24/20 07:01 Labs: Abnormal Lab Results - Last 24 Hours (Table) 09/25/20 09/25/2021 Range/Units 20:39 21:21 00:42 POC Glucose (mg/dL) 125 H 118 H 125 H (75-99) mg/dL 09/26/20 09/26/20 09/26/20 Range/Units 06:59 07:12 07:38 POC Glucose (mg/dL) 64 L 64 L 71 L (75-99) mg/dL 09/26/20 09/26/20 Range/Units 11:28 16:24 POC Glucose (mg/dL) 109 H 123 H (75-99) mg/dL Microbiology - Last 24 Hours (Table) 09/25/20 06:12 Blood Culture - Preliminary Blood No Growth after 24 hours 09/24/20 17:34 Blood Culture - Preliminary Blood No Growth after 24 hours
[2020-09-19] MEDS: CALCIUM ACETATE 667 MG TAB PO SCH ×2 (12:21→17:01)
[2020-09-19] MEDS: INSULIN ASPART (NovoLOG) 100 UNIT/ML VIAL SQ SCH ×3 (12:21→21:30)
[2020-09-19] MEDS: ACETAMINOPHEN TAB 325 MG TAB PO PRN ×2 (12:25→19:49)
[2020-09-19] MEDS: hydrOXYzine HCL 25 MG TAB PO SCH ×2 (12:27→17:02)
[2020-09-19] MEDS: MIDODRINE 5 MG TAB PO SCH (13:57)
[2020-09-19 16:57] LABS: Glucose,Whole Blood 121 mg/dL (75-99)
[2020-09-19] MEDS: ONDANSETRON 4 MG/2 ML VIAL IVP PRN (16:57)
[2020-09-19] MEDS ORDERED: NON FORMULARY DRUG (Liquacel 30 ML) PO SCH (17:00)
[2020-09-19] MEDS: METOPROLOL TARTRATE 25 MG TAB PO SCH ×2 (17:00→19:49)
[2020-09-19] MEDS: FUROSEMIDE 80 MG TAB PO SCH (17:01)
[2020-09-19] MEDS: FERROUS SULFATE 325 MG TAB PO SCH (17:01)
[2020-09-19] MEDS: ASPIRIN 81 MG PO SCH (17:01)
[2020-09-19] MEDS: APIXABAN 2.5 MG TABLET PO SCH (17:01)
[2020-09-19] MEDS: CHOLESTYRAMINE (WITH SUGAR) 4 GM PACKET PO SCH (17:01)
[2020-09-19] MEDS: MULTIVITAMINS, THERA 1 EACH TAB PO SCH (17:01)
[2020-09-19] MEDS ORDERED: VANCOMYCIN IV PER PHARMACY 1 EACH MISC MISCELLANE PRN (17:37)
[2020-09-19] MEDS ORDERED: VANCOMYCIN 1,750 MG in SODIUM CHLORIDE 0.9% 500 ML 500 ML IVPB ONE (18:00)
[2020-09-19] MEDS: ATORVASTATIN 40 MG TAB PO SCH (19:49)
[2020-09-19] MEDS: MELATONIN 1 MG TAB PO SCH (19:50)
[2020-09-19 20:33] LABS: Glucose,Whole Blood 153 mg/dL (75-99)
[2020-09-19] MEDS: INSULIN DETEMIR (LEVEMIR) 100 UNIT/ML SYR SQ SCH (21:30)
--- NOTE | 2020-09-19 21:42 | CONS ---
CONSULTATION REASON FOR CONSULT: End-stage renal disease. HISTORY OF PRESENT ILLNESS: The patient is a 60-year-old male with end-stage renal disease, on hemodialysis on a Wednesday, , Wednesday schedule as outpatient. The patient was admitted to the hospital with complaints of increased weakness, as well as nausea. He was not able to eat much for the last day or so. The patient was noted to be febrile with temperature 100.2 degrees Fahrenheit when he came in and blood pressure has been on the lower side. Currently, he has an AV fistula in his left upper arm, which has not had any issues. Of note is history of MRSA bacteremia and endocarditis in April of 2020. PAST MEDICAL HISTORY: Atrial fibrillation, coronary artery disease, type 2 diabetes, CHF, hearing loss, hyperlipidemia, NV, neuropathy, chronic anemia. The patient is legally blind. PAST SURGICAL HISTORY: Cardiac catheterization, coronary stent placement, PD catheter placement removal, left eye vitrectomy, left arm AV fistula, colonoscopy, polypectomy. SOCIAL HISTORY: Negative for smoking, drug abuse or alcohol abuse. MEDICATIONS: Medications prior to admission included PhosLo, Lasix, Vistaril, Protonix, Tylenol, aspirin, Procrit, insulin, midodrine, melatonin, gabapentin, Cordarone, Eliquis, Lipitor, Lopressor, Zofran, hydralazine, Zaroxolyn. ALLERGIES: Allergies include CODEINE, PENICILLIN, SULFA, BUMEX, MORPHINE, XARELTO, SPIRONOLACTONE. PHYSICAL EXAMINATION: Patient is currently comfortable. He is lethargic. He is not in any acute distress; arousable. Blood pressure this morning 113/68, heart rate 67 per minute, T-max 99.9. He had a temperature of 102 degrees Fahrenheit. Examination of the heart S1, S2. Examination of the lungs, bilateral breath sounds are heard. Abdomen is soft, nontender. Examination of lower extremities shows no significant edema. [employer] exam shows patient is moving all 4 extremities. He is lethargic but arousable. LAB: Show hemoglobin 11.1, white cell count 15.8, sodium 134, potassium 5.0. Chest x-ray shows mild pulmonary vascular congestion. ASSESSMENT: 1. End-stage renal disease, on hemodialysis on a Wednesday, , Wednesday schedule. We will dialyze the patient today. However, if he is significantly hypotensive, I will hold off and plan for treatment tomorrow. No plans for significant ultrafiltration. 2. Fever/sepsis with previous history of MRSA endocarditis and persistent bacteremia, currently with no clear identifiable source. Echocardiogram has been ordered. UA does not have significant WBCs and chest x-ray does not show clear infiltrate. The patient is maintained on empiric antibiotics. We will continue to follow. 3. Chronic volume overload. The patient tolerated about 4-1/2 L of ultrafiltration as outpatient on 09/17/2020. Currently, blood pressure is low. We will not be able to get much fluid off. 4. Chronic kidney disease, mineral bone disorder. 5. Coronary artery disease. PLAN: Empiric antibiotics, hemodialysis today, no significant ultrafiltration. Follow up on cultures. Follow up on echocardiogram. Thank you for this consultation. We will continue to follow the patient with you during his hospitalization. MMODL / IJN: [id number] /
[2020-09-19] MEDS ORDERED: hydrALAZINE HCL 25 MG TAB PO STA (22:10)
[2020-09-19] MEDS ORDERED: METOPROLOL TARTRATE 25 MG TAB PO STA (22:10)
[2020-09-20] MEDS: FERROUS SULFATE 325 MG TAB PO SCH ×2 (05:28→18:09)
[2020-09-20] MEDS: FUROSEMIDE 80 MG TAB PO SCH ×2 (05:28→18:09)
[2020-09-20] MEDS: hydrOXYzine HCL 25 MG TAB PO SCH ×4 (05:29→18:09)
[2020-09-20] MEDS: metOLazone 5 MG TAB PO SCH (05:30)
--- NOTE | 2020-09-20 07:11 | P.CONS ---
History of Present Illness - Reason for Consult Consult date: 09/19/20 Sepsis Requesting physician: Cordelia Pantoja - Chief Complaint nausea and vomiting x 1 day - History of Present Illness Patient is a 60-year-old male with a past medical history significant for end-stage renal disease on hemodialysis patient did have a history of MRSA bacteremia related to permacatheter and concern for patient with multiple antibiotic allergies that would limit the number of antibiotics safe to use in April 2020 for the patient was transferred to [facility] patient subsequently has developed his bacteremia and recently was admitted to this facility in July at that point his blood culture were negative patient has now been brought to [facility] early this morning after apparently the patient did have emesis after hemodialysis treatment patient was complaining of nausea and did have decreased oral intake patient denies having any abdominal pain though patient denies having any diarrhea or constipation patient denies having any chest pain shortness of breath no cough no URI symptoms with the symptom the patient was evaluated by the ER physician on arrival to the ER patient did have a fever of 102 F patient was tachycardic white count was elevated at 15.8 levels are mildly elevated CRP was 1.7 mccall PCR was negative patient did have a chest x-ray shows cardiomegaly and mild pulmonary congestion ultrasound of the gallbladder nodule pattern of the liver correlate for underlying cirrhosis gallbladder was surgically absent CBD was within normal limit, echocardiogram did not show any obvious vegetation, patient was started on meropenem has been admitted to the hospital infectious disease was consulted for further management of antibiotic therapy. Review of Systems Positive point has been mentioned in the HPI rest of the systems are negative Past Medical History Past Medical History: Atrial Fibrillation, Coronary Artery Disease (CAD), Heart Failure, Diabetes Mellitus, Dialysis, Eye Disorder, GERD/Reflux, Hearing Disorder / Deafness, Hyperlipidemia, Hypertension, Myocardial Infarction ([place]), Renal Disease, Syncope Additional Past Medical History / Comment(s): IDDM type II, neuropathy bilateral hands/feet, ESRD with hemodialysis on //, chronic anemia, LVH, Afib with RVR, MIs, chronic CHF, R eye blindness, L eye legally blind, RLS, pt unsure if he has gout, vertigo at times, balance issues at times, stomach ulcer at age 17yrs, sinus problems, very [place] R ear. Last Myocardial Infarction Date:: 08/09/18 History of Any Multi-Drug Resistant Organisms: MRSA Year Discovered:: 05/02/20 MDRO Source:: Blood Past Surgical History: Heart Catheterization, Heart Catheterization With Stent Additional Past Surgical History / Comment(s): TTT, PD catheter placement/since removed, 2016 L arm fistula, fistula gram with balloon for stenosis, L eye vitrectomy, thyroid needle aspiration-negative, L leg cyst, colonoscopy with benign polypectomy. port placed in chest Right side. Past Anesthesia/Blood Transfusion Reactions: Postoperative Nausea & Vomiting (PONV) Date of Last Stent Placement:: 03-03-18 Past Psychological History: Anxiety, Depression Additional Psychological History / Comment(s): Pt resides with his spouse, AND SON. He is legally blind L eye and blind in R eye. He is very [place] in R ear. He has a cane and walker which he uses prn. His spouse and son drive. Pt uses glasses and a magnifier to read. He has depression which he states is co nstantly present but not increased. He denies thoughts/plans of suicide. Smoking Status: Never smoker Past Alcohol Use History: None Reported Additional Past Alcohol Use History / Comment(s): Pt started smoking in 1972 and quit in 1995. Past Drug Use History: None Reported - Past Family History Father Family Medical History: Cancer, Coronary Artery Disease (CAD), Hyperlipidemia Additional Family Medical History / Comment(s): Lung/BRAIN CANCER Mother Family Medical History: Diabetes Mellitus, Deep Vein Thrombosis (DVT), Osteoarthritis (OA) Additional Family Medical History / Comment(s): DJD Sister(s) Family Medical History: Diabetes Mellitus Additional Family Medical History / Comment(s): Patient has one sister with diabetes mellitus type 2, SLE, MS. Brother(s) Family Medical History: Diabetes Mellitus Additional Family Medical History / Comment(s): Patient has 4 kids no major medical problems. Daughter(s) Family Medical History: No Reported History Additional Family Medical History / Comment(s): Patient has 2 daughters no major medical problems. Son(s) Family Medical History: No Reported History Additional Family Medical History / Comment(s): Patient has 2 sons no major medical problems. Medications and Allergies Home Medications Medication Instructions Recorded Confirmed Type Calcium Acetate [PhosLo] 667 mg PO TID@0800,1200,1700 08/05/18 09/19/20 History Furosemide [Lasix] 80 mg PO BID@0600,1800 04/13/19 09/19/20 History hydrOXYzine pamoate [Vistaril] 50 mg PO QID@00,06,12,18 02/06/20 09/19/20 History Pantoprazole [Protonix] 40 mg PO DAILY@0600 02/17/20 09/19/20 History Acetaminophen Tab [Tylenol] 650 mg PO Q6H PRN 08/12/20 09/19/20 History Aspirin EC [Ecotrin Low Dose] 81 mg PO DAILY@1700 08/12/20 09/19/20 History Epoetin Luis [Epogen] 4,000 unit SQ TUTHSA 08/12/20 09/19/20 History Ferrous Sulfate [Iron (65 MG 325 mg PO BID@0600,1700 08/12/20 09/19/20 History Elemental)] INSULIN ASPART (NovoLOG) [NovoLOG See Protocol SQ ACHS 08/12/20 09/19/20 History (formulary)] Insulin Detemir (Levemir) [Levemir] 10 unit SQ HS@2100 08/12/20 09/19/20 History Melatonin 1 mg PO HS 08/12/20 09/19/20 History Midodrine HCl [ProAmatine] 10 mg PO DAILY@0800 08/12/20 09/19/20 History Multivitamins, Thera [Multivitamin 1 tab PO DAILY@1700 08/12/20 09/19/20 History (formulary)] Na Phos,M-B/Na Phos,Di-Ba [Fleet 133 ml RECTAL DAILY PRN 08/12/20 09/19/20 History Adult] Sennosides/Docusate Sodium 1 tab PO Q12H PRN 08/12/20 09/19/20 History [Senna-S 8.6-50 mg Tablet] bisacodyL [Dulcolax] 10 mg RECTAL DAILY PRN 08/12/20 09/19/20 History Baclofen [Lioresal] 5 mg PO Q8H PRN #0 08/19/20 09/19/20 Rx Gabapentin 300 mg PO HS@2100 #3 cap 08/19/20 09/19/20 Rx HYDROcodone/APAP 5-325MG [[place] 1 tab PO Q6HR PRN #12 tab 08/19/20 09/19/20 Rx 5-325] Lactulose [Cephulac] 15 gm PO TID PRN ml 08/19/20 09/19/20 Rx Sodium Chloride 0.65% Nasal [Deep 2 spray NASAL QID PRN spray 08/19/20 09/19/20 Rx Sea (Saline)] Amiodarone [Cordarone] 200 mg PO DAILY@0800 09/19/20 09/19/20 History Apixaban [Eliquis] 2.5 mg PO BID@0800,1700 09/19/20 09/19/20 History Atorvastatin [Lipitor] 40 mg PO HS 09/19/20 09/19/20 History Cholestyramine/Aspartame 4 gm PO BID@0800,1700 09/19/20 09/19/20 History [Cholestyramine Light Packet] Liquacel 30 ml PO BID@0800,1700 09/19/20 09/19/20 History Metoprolol Tartrate [Lopressor] 25 mg PO BID@0800,1700 09/19/20 09/19/20 History Ondansetron HCl [Zofran] 4 mg PO Q6H PRN 09/19/20 09/19/20 History hydrALAZINE HCL [Apresoline] 75 mg PO TID@0800,1200,1700 09/19/20 09/19/20 History metOLazone [Zaroxolyn] 5 mg PO DAILY@0600 09/19/20 09/19/20 History Allergies Allergy/AdvReac Type Severity Reaction Status Date / Time codeine Allergy Unknown Verified 09/19/20 06:44 Penicillins Allergy Anaphylaxis Verified 09/19/20 06:44 sulfadiazine Allergy Unknown Verified 09/19/20 06:44 bumetanide [From Bumex] AdvReac Hallucinati Verified 09/19/20 06:44 ons morphine AdvReac Confusion Verified 09/19/20 06:44 rivaroxaban [From Xarelto] AdvReac Bloody Nose Verified 09/19/20 06:44 spironolactone AdvReac Hallucinati Verified 09/19/20 06:44 ons All antibiotics except Keflex Allergy Unknown Uncoded 09/19/20 06:44 Childhood Physical Exam Vitals: Vital Signs Temp Pulse Pulse Resp BP BP Pulse Ox 09/19/20 08:00 99.0 F 67 18 113/68 98 09/19/20 07:41 99.9 F H 69 19 108/62 100 09/19/20 06:07 100.7 F H 76 18 142/73 98 09/19/20 04:07 102 F H 87 18 106/78 96 Intake and Output 09/18/20 09/19/20 09/19/20 22:59 06:59 14:59 Other: Weight 104.326 kg 104.326 kg GENERAL DESCRIPTION: Middle-aged male lying in bed, no distress. No tachypnea or accessory muscle of respiration use. HEENT: Shows Pallor , no scleral icterus. Oral mucous membrane is dry. No pharyngeal erythema or thrush NECK: Trachea central, no thyromegaly. LUNGS: Unlabored breathing. Decreased dose on the base No wheeze or crackle. HEART: S1, S2, regular rate and rhythm. No loud murmur ABDOMEN: Soft, no tenderness , guarding or rigidity, no organomegaly EXTREMITIES: No edema of feet. SKIN: No rash, no masses palpable. Left arm AV fistula site looks clean NEUROLOGICAL: The patient is awake, alert, oriented x3, mood and affect normal. Results CBC & Chem 7: 09/19/20 04:57 09/19/20 04:57 Labs: Abnormal Lab Results - Last 24 Hours (Table) 09/19/20 09/19/20 Range/Units 04:57 04:57 WBC 15.8 H (3.8-10.6) k/uL RBC 3.62 L (4.30-5.90) m/uL Hgb 11.1 L (13.0-17.5) gm/dL Hct 34.2 L (39.0-53.0) % Plt Count 146 L (150-450) k/uL Neutrophils # 14.8 H (1.3-7.7) k/uL Lymphocytes # 0.2 L (1.0-4.8) k/uL Sodium 135 L (137-145) mmol/L Chloride 94 L (98-107) mmol/L BUN 90 H (9-20) mg/dL Creatinine 6.03 H (0.66-1.25) mg/dL Glucose 236 H (74-99) mg/dL AST 72 H (17-59) U/L ALT 61 H (4-49) U/L Alkaline Phosphatase 325 H (38-126) U/L Lactate Dehydrogenase 651 H (313-618) U/L C-Reactive Protein 1.7 H (<1.0) mg/dL Assessment and Plan Assessment: -patient presented to hospital with sepsis in this patient who did have fever tachycardia elevated white count predominant symptom has been nausea and vomiting in this patient currently do not have any tenderness on abdominal examination and no abdominal pain his lungs are clear to auscultation and no evidence of any cellulitis the patient left arm AV fistula site looks clean this patient did have a history of prolonged MRSA bacteremia related permacatheter in April with a question of possible distant MRSA infection responsible for this sepsis (1) Sepsis Current Visit: Yes Status: Acute Code(s): A41.9 - SEPSIS, UNSPECIFIED ORGANISM SNOMED Code(s): 16954723 Plan: 1-we will start the patient on vancomycin pharmacy to dose target of 15 2-we will obtain WBC scan We will follow on clinical condition and cultures to further adjust medication if needed Thank you for this consultation we will follow the patient along with you Time with Patient: Greater than 30
[2020-09-20 07:23] LABS: Glucose,Whole Blood 86 mg/dL (75-99)
[2020-09-20] MEDS: MEROPENEM 1 GM in SODIUM CHLORIDE 0.9% 100 ML IVPB SCH (07:34)
[2020-09-20] MEDS: MIDODRINE 5 MG TAB PO SCH (07:35)
[2020-09-20] MEDS: AMIODARONE 200 MG TAB PO SCH (07:35)
[2020-09-20] MEDS: CALCIUM ACETATE 667 MG TAB PO SCH ×3 (07:35→18:08)
[2020-09-20] MEDS: hydrALAZINE HCL 25 MG TAB PO SCH (07:35)
[2020-09-20] MEDS: APIXABAN 2.5 MG TABLET PO SCH ×2 (07:35→18:09)
[2020-09-20] MEDS: CHOLESTYRAMINE (WITH SUGAR) 4 GM PACKET PO SCH ×2 (07:35→18:09)
[2020-09-20] MEDS: PANTOPRAZOLE 40 MG TABLET PO SCH (07:35)
[2020-09-20] MEDS: METOPROLOL TARTRATE 25 MG TAB PO SCH ×2 (07:35→18:09)
[2020-09-20] MEDS: INSULIN ASPART (NovoLOG) 100 UNIT/ML VIAL SQ SCH ×4 (07:36→21:43)
[2020-09-20 07:51] LABS: ALT 60 U/L (4-49); AST 84 U/L (17-59); African American GFR (CKD) 14 (>60 ml/min/1.73 sqM); Albumin 3.2 g/dL (3.5-5.0); Albumin/Globulin Ratio 1.2; Alkaline Phosphatase 213 U/L (38-126); Anion Gap 13 mmol/L; Blood Urea Nitrogen 71 mg/dL (9-20); Calcium 9.2 mg/dL (8.4-10.2); Carbon Dioxide 23 mmol/L (22-30); Chloride 102 mmol/L (98-107); Globulin 2.7 g/dL; Glucose 91 mg/dL (74-99); Magnesium 2.2 mg/dL (1.6-2.3); Non-African American GFR(CKD) 12 (>60 ml/min/1.73 sqM); Phosphorus 6.8 mg/dL (2.5-4.5); Potassium 4.4 mmol/L (3.5-5.1); Sodium 138 mmol/L (137-145); Total Bilirubin 0.6 mg/dL (0.2-1.3); Total Protein 5.9 g/dL (6.3-8.2)
[2020-09-20] MEDS ORDERED: MIDODRINE 5 MG TAB PO SCH (08:00)
[2020-09-20 08:05] LABS: Basophils % (A) 0 %; Eosinophils % (A) 0 %; HCT 32.9 % (39.0-53.0); HGB 10.4 gm/dL (13.0-17.5); Hypochromasia Slight; Lymphocytes # (A) 0.3 k/uL (1.0-4.8); Lymphocytes % (A) 3 %; MCH 30.3 pg (25.0-35.0); MCHC 31.6 g/dL (31.0-37.0); MCV 95.9 fL (80.0-100.0); Mean Platelet Volume 8.3; Monocytes # (A) 0.5 k/uL (0-1.0); Monocytes % (A) 5 %; Neutrophils # (A) 9.1 k/uL (1.3-7.7); Neutrophils % (A) 90 %; Platelet Count 101 k/uL (150-450); RBC 3.43 m/uL (4.30-5.90); RDW 14.8 % (11.5-15.5); WBC 10.1 k/uL (3.8-10.6)
--- NOTE | 2020-09-20 11:22 | P.PN ---
Subjective Progress Note Date: 09/20/20 HISTORY OF PRESENT ILLNESS This is a 60-year-old male patient of Dr. Mckeon currently residing at [facility] under the care of Dr. 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 Patient was hospitalized in April 2020 at which time he was treated for sepsis and MRSA bacteremia of unclear etiology with metabolic encephalopathy vasovagal episode requiring brief CPR and patient was transferred to [facility]. Patient was treated for MRSA osteomyelitis of the lumbar spine. Patient was discharged to [facility] for subacute rehab and was transferred from there yesterday to [facility] emergency center. Patient apparently had emesis after hemodialysis treatment. He was complaining of nausea and easy had decreased oral intake. He is complaining of dizziness. Patient had a drop in his blood pressure and has been refusing all his medications. On examination, patient is complaining of low back pain and has refused MRI of the lumbar spine. Temperature max 100.2, heart rate in the 60s to 80s, blood pressure 106/78, pulse ox 96% on 3 L nasal cannula. WBC 15.8, hemoglobin 11.1, platelet count 146. Sodium 135, potassium 5.0, chloride 94, CO2 22, BUN 19 creatinine 6.03. Blood sugar 236. Lactic acid 1.6. Magnesium 2.3, total bilirubin 0.9, AST 72, ALT 61 alkaline phosphatase 325. LDH 651. C- reactive protein 1.7. Urinalysis cloudy, blood moderate, leukoesterase small, RBCs 9, bacteria rare. Coronavirus PCR not detected. Gallbladder ultrasound reveals correlate for underlying cirrhosis. Hypoechoic appearance may be seen with hepatitis. Mild perihepatic ascites. Status post cholecystectomy. No biliary ductal dilatation. Chest x-ray reveals cardiomegaly and mild pulmonary congestion. Pulmonary vascularity slightly increased compared to old exam. Echocardiogram reveals EF of 55-60% with moderate concentric left ventricular hypertrophy, mild aortic stenosis, mild mitral regurgitation, mild tricuspid regurgitation, moderate to severe pulmonary hypertension. No mention of vegetation. Patient admitted to the [facility] floor and consults requested with infectious disease and nephrology. 09/20: Patient has been seen by Dr. Presley and started the patient on vancomycin and ordered a WBC scan which is to be scheduled today. Patient refuses metoprolol and hydralazine yesterday and his heart rate last evening was in the 140s. He received an extra dose last evening and has converted to sinus rhythm/sinus bradycardia. He does remain hypotensive for which hydralazine scheduled with me discontinued and he will have hydralazine when necessary for systolic blood pressure greater than 140. Patient underwent hemodialysis treatment yesterday. Not sure patient will undergo treatment today. Patient was a 3 person assist to the commode chair and he did have a bowel movement this morning, no blood. Patient has been afebrile, heart rate 57, blood pressure 101/65, pulse ox 95% on 2 L nasal cannula. Repeat blood work reveals WBC 10.1, hemoglobin 10.4, platelet count 101. Electrolytes are normal. BUN 71 creatinine 4.79. Blood sugars are running between 86 and 195. AST 84, ALT 60, alkaline phosphatase 213. Blood culture from 09/19 is staph aureus not further identified. Patient is complaining of excessive 80 and Xanax or 0.5 mg twice daily as needed has been added. Mental status is improved today. Patient has significant generalized weakness REVIEW OF SYSTEMS Constitutional: Noted fever, no chills, no night sweats. No weight change. Reported weakness, reported fatigue no lethargy. Reported daytime sleepiness. EENT: No headache. No blurred vision or double vision, no loss of vision. No loss of Hearing, no ringing in the ears, no dizziness. No nasal drainage or congestion. No epistaxis. No sore throat. Lungs: No shortness of breath, cough, no sputum production. No wheezing. Cardiovascular: No chest pain, no lower extremity edema. No palpitations. No paroxysmal nocturnal dyspnea. No orthopnea. No lightheadedness or dizziness. No syncopal episodes. Abdominal: No abdominal pain. Reported nausea and vomiting. No diarrhea. No constipation. No bloody or tarry stools. Reported loss of appetite. Genitourinary: No dysuria, increased frequency, urgency. No urinary retention. Patient makes a small amount of urine. Musculoskeletal: No myalgias. Noted muscle weakness, noted gait dysfunction, no frequent falls. Reported back pain. No neck pain. Integumentary: No wounds, no lesions. No rash or pruritus. No unusual bruising. No change in hair or nails. Neurologic: No aphasia. No facial droop. Noted change in mentation. No head injury. No headache. No paralysis. No paresthesia. Psychiatric: No depression. Reports anxiety. No mood swings. Endocrine: Noted abnormal blood sugars. No weight change. PHYSICAL EXAMINATION Gen: This is a 60-year-old male patient resting in bed. Patient is resting in bed. He appears to be in no acute distress. HEENT: Head is atraumatic, normocephalic. Pupils equal, round. Sclerae is anicteric. NECK: Supple. No JVD. No lymphadenopathy. No thyromegaly. LUNGS: Clear to auscultation. No wheezes or rhonchi. No intercostal retractions. HEART: Regular rate and rhythm. 2/6 systolic murmur. ABDOMEN: Soft. Bowel sounds are present. No masses. No tenderness. EXTREMITIES: No pedal edema. No calf tenderness. NEUROLOGICAL: Patient is awake and alert and able to follow simple commands. He is able to answer questions. ASSESSMENT AND PLAN 1. Sepsis of unclear etiology. Patient started on meropenem, blood cultures in progress, consult with infectious disease. MRI of the lumbar spine has been ordered but patient is refusing. WBC scan. 2. Infectious metabolic encephalopathy. Continue as in #1. Hold gabapentin. 3. Complaints of lumbar pain, nausea vomiting and dizziness. Continue Zofran 4 mg IV every 8 hours as needed. 4. Recent treatment for MRSA bacteremia and lumbar spine osteomyelitis, completed course of antibiotics. 5. End-stage renal disease on hemodialysis. Consult with nephrology appreciated. Continue PhosLo 667 mg 3 times daily, Aranesp 40 g subcu every 7 days, hemodialysis. 6. Degenerative disc disease and spinal stenosis. Hold gabapentin. Continue baclofen 5 mg every 8 hours as needed. 7. History of coronary artery disease with previous PTCA to LAD and circumflex. Continue aspirin 81 mg daily, atorvastatin 40 mg at bedtime, Lopressor 25 mg twice daily. 8. Paroxysmal atrial fibrillation. Continue eliquis 2.5 mg twice daily, Lopressor, amiodarone 200 mg daily 8. Ischemic cardiomyopathy. Continue Lopressor, Lasix 80 mg twice daily, metolazone 5 mg daily. 9. Diabetes mellitus type 2, insulin requiring. Continue Levemir 10 units at bedtime, add NovoLog scale before meals and at bedtime, 10. Diabetic neuropathy. Hold gabapentin. 11. Hypertension. Discontinue hydralazine 75 mg 3 times daily. Hydralazine 25 mg 4 times daily as needed for systolic blood pressure greater than 140. 12. Anemia of chronic disease. Continue ferrous sulfate 325 mg twice daily, Aranesp 40 g subcu every 7 days. 13. Possible bacteremia. Repeat blood cultures been ordered. Patient has been started on vancomycin. 14. GI prophylaxis. Continue Protonix. 14. DVT prophylaxis. Eliquis CODE STATUS: Full code DISCHARGE PLAN Return to [facility]. Impression and plan of care have been directed as dictated by the signing physician. Katelyn Wesley nurse practitioner acting as scribe for signing physician. Objective - Vital Signs Vital signs: Vital Signs Temp 98.7 F 09/20/20 08:00 Pulse 110 H 09/20/20 08:00 Resp 18 09/20/20 08:00 BP 108/72 09/20/20 08:00 Pulse Ox 95 09/20/20 08:00 Intake & Output 09/19/20 09/20/20 09/20/20 18:59 06:59 18:59 Output Total 600 Balance -600 Weight 104.326 kg Output: Urine 100 Straight 100 Hemodialysis 500 Other: # Voids 1 # Bowel Movements 1 3 - Labs CBC & Chem 7: 09/20/20 07:06 09/20/20 07:06 Labs: Abnormal Lab Results - Last 24 Hours (Table) 09/19/20 09/19/20 09/19/20 Range/Units 10:30 11:59 16:55 RBC (4.30-5.90) m/uL Hgb (13.0-17.5) gm/dL Hct (39.0-53.0) % Plt Count (150-450) k/uL Neutrophils # (1.3-7.7) k/uL Lymphocytes # (1.0-4.8) k/uL BUN (9-20) mg/dL Creatinine (0.66-1.25) mg/dL POC Glucose (mg/dL) 195 H 121 H (75-99) mg/dL Phosphorus (2.5-4.5) mg/dL AST (17-59) U/L ALT (4-49) U/L Alkaline Phosphatase (38-126) U/L Total Protein (6.3-8.2) g/dL Albumin (3.5-5.0) g/dL Urine Protein 2+ H (Negative) Urine Blood Moderate H (Negative) Urine Bilirubin 1+ H (Negative) Ur Leukocyte Esterase Small H (Negative) Urine RBC 9 H (0-5) /hpf Amorphous Sediment Rare H (None) /hpf Urine Bacteria Rare H (None) /hpf 09/19/20 09/20/20 09/20/20 Range/Units 20:31 07:06 07:06 RBC 3.43 L (4.30-5.90) m/uL Hgb 10.4 L (13.0-17.5) gm/dL Hct 32.9 L (39.0-53.0) % Plt Count 101 L (150-450) k/uL Neutrophils # 9.1 H (1.3-7.7) k/uL Lymphocytes # 0.3 L (1.0-4.8) k/uL BUN 71 H (9-20) mg/dL Creatinine 4.79 H (0.66-1.25) mg/dL POC Glucose (mg/dL) 153 H (75-99) mg/dL Phosphorus 6.8 H (2.5-4.5) mg/dL AST 84 H (17-59) U/L ALT 60 H (4-49) U/L Alkaline Phosphatase 213 H (38-126) U/L Total Protein 5.9 L (6.3-8.2) g/dL Albumin 3.2 L (3.5-5.0) g/dL Urine Protein (Negative) Urine Blood (Negative) Urine Bilirubin (Negative) Ur Leukocyte Esterase (Negative) Urine RBC (0-5) /hpf Amorphous Sediment (None) /hpf Urine Bacteria (None) /hpf Microbiology - Last 24 Hours (Table) 09/19/20 05:00 Blood Culture Gram Stain - Preliminary Blood Blood Culture - Preliminary Staphylococcus aureus 09/19/20 05:00 Blood Culture - Final Blood 09/19/20 04:45 Blood Culture - Final Blood
[2020-09-20] MEDS: ALPRAZolam 0.25 MG TAB PO PRN (11:40)
[2020-09-20 11:48] LABS: Glucose,Whole Blood 87 mg/dL (75-99)
[2020-09-20] MEDS ORDERED: VANCOMYCIN 1,750 MG in SODIUM CHLORIDE 0.9% 500 ML 500 ML IVPB ONE (12:00)
[2020-09-20 16:29] LABS: Hemoglobin A1C 6.6 % (4.0-6.0)
[2020-09-20 17:09] LABS: Glucose,Whole Blood 116 mg/dL (75-99)
--- NOTE | 2020-09-20 17:09 | PN ---
PROGRESS NOTE DATE OF SERVICE: 09/20/2020 REASON FOR FOLLOWUP: Bacteremia. INTERVAL HISTORY: The patient is afebrile. The patient's blood culture currently positive with Staphylococcus aureus. Patient is feeling slightly better today, breathing comfortably. No further nausea. No vomiting, chest pain, shortness of breath or cough. No diarrhea. EXAMINATION: Blood pressure 129/71 with a pulse of 69, temperature 98.8. He is 98% on 2 L nasal cannula. General description is a middle-aged male lying in bed in no distress. Respiratory system: Unlabored breathing, clear to auscultation anteriorly. Heart S1, S2. Regular rate and rhythm. LABS: Hemoglobin 10.4, white count 10.1, BUN of 21, creatinine 4.79. DIAGNOSTIC IMPRESSION AND PLAN: Patient with Streptococcus aureus bacteremia. This patient did have a prolonged bacteremia with MRSA back in April secondary to PermaCath infection. Has been discontinued. Concern likely for endovascular deep source. We will request for a YAYO and the ( ). Continue supportive care. Patient to continue with vancomycin, discontinue the meropenem. MMODL / IJN: [id number] /
[2020-09-20] MEDS: MULTIVITAMINS, THERA 1 EACH TAB PO SCH (18:09)
[2020-09-20] MEDS: ASPIRIN 81 MG PO SCH (18:09)
--- NOTE | 2020-09-20 20:14 | PN ---
PROGRESS NOTE Patient is seen for followup for end-stage renal disease. The patient is admitted to the hospital with fever, lethargy. He is found to be bacteremic with blood cultures growing Staph aureus. The patient has a previous history of MRSA bacteremia and endocarditis. His initial echocardiogram does not show any evidence of vegetation. The patient is maintained on antibiotics and is currently being followed by infectious disease. EXAMINATION: Today patient is comfortable, awake, he is not in any acute distress. He is complaining of shortness of breath. This morning blood pressure was 101/65, heart rate 57 per minute, he is afebrile, O2 sats 98% on 2 L nasal cannula. Examination of the heart S1, S2. Examination of the lungs, bilateral breath sounds are heard. Decreased breath sounds at bases. Abdomen is soft, obese. Examination of lower extremities shows edema 1+ bilaterally. [employer] exam grossly intact. LAB: Show hemoglobin 10.4, sodium 138, potassium 4.4, BUN 71, creatinine 4.79, albumin 3.2. ASSESSMENT: 1. End-stage renal disease on hemodialysis on a Wednesday, , Wednesday schedule. 2. Staphylococcus aureus bacteremia with previous history of MRSA endocarditis, being followed by Infectious Disease, maintained on antibiotics. Initial transthoracic echocardiogram does not show evidence of vegetation. 3. Chronic kidney disease mineral bone disorder. 4. Hypertension, blood pressure is on the lower side. 5. History of atrial fibrillation, maintained on anticoagulation in the form of Eliquis. PLAN: Continue current phosphate binders. We will dialyze the patient tomorrow. Continue antibiotics. Follow up on susceptibilities and repeat cultures. The patient will need a YAYO. MMODL / IJN: [id number] /
[2020-09-20 20:31] LABS: Glucose,Whole Blood 125 mg/dL (75-99)
[2020-09-20] MEDS: INSULIN DETEMIR (LEVEMIR) 100 UNIT/ML SYR SQ SCH (21:42)
[2020-09-20] MEDS: ATORVASTATIN 40 MG TAB PO SCH (21:42)
[2020-09-20] MEDS: MELATONIN 1 MG TAB PO SCH (21:42)
--- NOTE | 2020-09-20 22:39 | NM ---
EXAMINATION TYPE: NM WBC whole body DATE OF EXAM: 09/20/2020 COMPARISON: NONE HISTORY: TECHNIQUE: Following administration of 14.6 mCi Tc99m Ceretec. Images obtained 3 hours post injecti on. Findings There is some diffuse increased uptake in the lungs. Tracer distribution in the abdomen and pelvis is normal. Spleen and liver uptake is normal. The chest x-ray yesterday shows some mild pulmonary inter stitial density. IMPRESSION: Increased uptake in the lungs consistent with a diffuse nonspecific inflammatory process. No focal up take seen to suggest an abscess.
[2020-09-21] MEDS: hydrOXYzine HCL 25 MG TAB PO SCH ×4 (00:01→16:34)
[2020-09-21] MEDS: metOLazone 5 MG TAB PO SCH (05:57)
[2020-09-21] MEDS: FUROSEMIDE 80 MG TAB PO SCH ×2 (06:01→16:34)
[2020-09-21] MEDS: FERROUS SULFATE 325 MG TAB PO SCH ×2 (06:01→16:34)
[2020-09-21 06:44] LABS: Glucose,Whole Blood 92 mg/dL (75-99)
[2020-09-21] MEDS: INSULIN ASPART (NovoLOG) 100 UNIT/ML VIAL SQ SCH ×4 (08:37→21:10)
[2020-09-21] MEDS: CALCIUM ACETATE 667 MG TAB PO SCH ×3 (08:37→16:34)
[2020-09-21] MEDS: CHOLESTYRAMINE (WITH SUGAR) 4 GM PACKET PO SCH ×2 (08:45→16:35)
[2020-09-21] MEDS: MIDODRINE 5 MG TAB PO SCH (08:45)
[2020-09-21] MEDS: PANTOPRAZOLE 40 MG TABLET PO SCH (08:46)
[2020-09-21] MEDS: APIXABAN 2.5 MG TABLET PO SCH ×2 (08:46→16:34)
--- NOTE | 2020-09-21 10:11 | P.PN ---
Subjective Progress Note Date: 09/21/20 This is a 60-year-old male patient of Dr. Mckeon currently residing at [facility] under the care of Dr. Christian with a previous medical history significant for hypertension and hypertensive cardiovascular disease, hyperlipidemia, diabetes mellitus type 2, paroxysmal atrial fibrillation, coronary artery dis ease status post left heart catheterization and PCI of the obtuse marginal branch #1 off the LCx, followed by a recent PCI and stenting of the LAD back in September 2018, end-stage renal disease on hemodialysis Wednesday and Wednesday via left arm fistula, blindness of the right eye as well as left eye legally blind. Patient was hospitalized in April 2020 at which time he was treated for sepsis and MRSA bacteremia of unclear etiology with metabolic encephalopathy vasovagal episode requiring brief CPR and patient was transferred to [facility]. Patient was treated for MRSA osteomyelitis of the lumbar spine. Patient was discharged to [facility] for subacute rehab and was transferred from there yesterday to [facility] emergency center. Patient apparently had emesis after hemodialysis treatment. He was complaining of nausea and easy had decreased oral intake. He is complaining of dizziness. Patient had a drop in his blood pressure and has been refusing all his medications. On examination, patient is complaining of low back pain and has refused MRI of the lumbar spine. Temperature max 100.2, heart rate in the 60s to 80s, blood pressure 106/78, pulse ox 96% on 3 L nasal cannula. WBC 15.8, hemoglobin 11.1, platelet count 146. Sodium 135, potassium 5.0, chloride 94, CO2 22, BUN 19 creatinine 6.03. Blood sugar 236. Lactic acid 1.6. Magnesium 2.3, total bilirubin 0.9, AST 72, ALT 61 alkaline phosphatase 325. LDH 651. C- reactive protein 1.7. Urinalysis cloudy, blood moderate, leukoesterase small, RBCs 9, bacteria rare. Coronavirus PCR not detected. Gallbladder ultrasound reveals correlate for underlying cirrhosis. Hypoechoic appearance may be seen with hepatitis. Mild perihepatic ascites. Status post cholecystectomy. No biliary ductal dilatation. Chest x-ray reveals cardiomegaly and mild pulmonary congestion. Pulmonary vascularity slightly increased compared to old exam. Echocardiogram reveals EF of 55-60% with moderate concentric left ventricular hypertrophy, mild aortic stenosis, mild mitral regurgitation, mild tricuspid re gurgitation, moderate to severe pulmonary hypertension. No mention of vegetation. Patient admitted to the [facility] floor and consults requested with infectious disease and nephrology. 09/21 patient assessed today denies any fever or chills, denies any shortness of breath or breathing difficulty vitals are evaluated nt is afebrile pulse 65 respiratory rate 18 blood pressure 135/81 and oxygen saturation 100% on 2 L. Infectious disease was consulted who recommended nuclear scan increased uptake is noted in the lungs consistent with diffuse nonspecific inflammation process but no suggestion of abscess. Cardiology was consulted for possible YAYO. Patient has persistent MRSA infection and had multiple admissions for it. He was transferred to [facility] who thought patient had MRSA osteomyelitis for which patient has completed treatment. Due to persistent infection, cardiology was consulted. We will discuss with infectious disease for further management REVIEW OF SYSTEMS Constitutional: Noted fever, no chills, no night sweats. No weight change. Reported weakness, reported fatigue Reported lethargy. Reported daytime sleepiness. EENT: No headache. No blurred vision or double vision, no loss of vision. No loss of Hearing, no ringing in the ears, no dizziness. No nasal drainage or congestion. No epistaxis. No sore throat. Lungs: No shortness of breath, cough, no sputum production. No wheezing. Cardiovascular: No chest pain, no lower extremity edema. No palpitations. No paroxysmal nocturnal dyspnea. No orthopnea. No lightheadedness or dizziness. No syncopal episodes. Abdominal: No abdominal pain. Reported nausea and vomiting. No diarrhea. No constipation. No bloody or tarry stools. Reported loss of appetite. Genitourinary: No dysuria, increased frequency, urgency. No urinary retention. Patient makes a small amount of urine. Musculoskeletal: No myalgias. Noted muscle weakness, no gait dysfunction, no frequent falls. Reported back pain. No neck pain. Integumentary: No wounds, no lesions. No rash or pruritus. No unusual bruising. No change in hair or nails. Neurologic: No aphasia. No facial droop. Noted change in mentation. No head injury. No headache. No paralysis. No paresthesia. Psychiatric: No depression. No anxiety. No mood swings. Endocrine: Noted abnormal blood sugars. No weight change. PHYSICAL EXAMINATION Gen: This is a 60-year-old male patient resting in bed. He is currently receiving hemodialysis. He appears to be in no acute distress. HEENT: Head is atraumatic, normocephalic. Pupils equal, round. Sclerae is anicteric. NECK: Supple. No JVD. No lymphadenopathy. No thyromegaly. LUNGS: Clear to auscultation. No wheezes or rhonchi. No intercostal retractions. HEART: Regular rate and rhythm. 2/6 systolic murmur. ABDOMEN: Soft. Bowel sounds are present. No masses. No tenderness. EXTREMITIES: 2+ pedal edema. No calf tenderness. NEUROLOGICAL: Patient is lethargic, he wakens briefly to answer a few questions and then closes his eyes. Unable to follow simple commands only. Cranial nerves 2 through 12 are grossly intact. ASSESSMENT AND PLAN 1. Sepsis of unclear etiology. Patient started on meropenem, blood cultures in progress, positve for staph , consult with infectious disease. MRI of the lumbar spine has been ordered but patient is refusing. Echocardiogram to rule out vegetation. 2. Infectious metabolic encephalopathy. Continue as in #1. Hold gabapentin. No SLR today 3. Complaints of lumbar pain, nausea vomiting and dizziness. Continue Zofran 4 mg IV every 8 hours as needed. 4. Recent treatment for MRSA bacteremia and lumbar spine osteomyelitis, completed course of antibiotics. 5. End-stage renal disease on hemodialysis. Consult with nephrology appreciated. Continue PhosLo 667 mg 3 times daily, Aranesp 40 g subcu every 7 days, hemodialysis. 6. Degenerative disc disease and spinal stenosis. Hold gabapentin. Continue baclofen 5 mg every 8 hours as needed. 7. History of coronary artery disease with previous PTCA to LAD and circumflex. Continue aspirin 81 mg daily, atorvastatin 40 mg at bedtime, Lopressor 25 mg twice daily. 8. Paroxysmal atrial fibrillation. Continue eliquis 2.5 mg twice daily, Lopressor, amiodarone 200 mg daily 8. Ischemic cardiomyopathy. Continue Lopressor, Lasix 80 mg twice daily, metolazone 5 mg daily. 9. Diabetes mellitus type 2, insulin requiring. Continue Levemir 10 units at bedtime, add NovoLog scale before meals and at bedtime, 10. Diabetic neuropathy. Hold gabapentin. 11. Hypertension. Continue hydralazine 75 mg 3 times daily. 12. Anemia of chronic disease. Continue ferrous sulfate 325 mg twice daily, Aranesp 40 g subcu every 7 days. 13. GI prophylaxis. Continue Protonix. 14. DVT prophylaxis. Eliquis Objective - Vital Signs Vital signs: Vital Signs Temp 98.7 F 09/21/20 07:26 Pulse 55 L 09/21/20 07:26 Resp 18 09/21/20 07:26 BP 135/81 09/21/20 07:26 Pulse Ox 100 09/21/20 07:41 Intake & Output 09/20/20 09/21/20 09/21/20 18:59 06:59 18:59 Other: Voiding Method Incontinent # Voids 0 0 # Bowel Movements 3 0 - Labs CBC & Chem 7: 09/20/20 07:06 09/20/20 07:06 Labs: Abnormal Lab Results - Last 24 Hours (Table) 09/20/20 09/20/20 09/20/20 Range/Units 07:06 17:08 20:29 POC Glucose (mg/dL) 116 H 125 H (75-99) mg/dL Hemoglobin A1c 6.6 H (4.0-6.0) % Microbiology - Last 24 Hours (Table) 09/19/20 21:23 Blood Culture Gram Stain - Preliminary Blood 09/19/20 21:23 Blood Culture - Final Blood 09/19/20 04:45 Blood Culture Gram Stain - Preliminary Blood Blood Culture - Preliminary Presumptive Staph aureus 09/19/20 05:00 Blood Culture Gram Stain - Preliminary Blood Blood Culture - Preliminary Staphylococcus aureus
[2020-09-21 11:38] LABS: Glucose,Whole Blood 108 mg/dL (75-99)
[2020-09-21] MEDS: ONDANSETRON 4 MG/2 ML VIAL IVP PRN (12:35)
[2020-09-21] MEDS: METOPROLOL TARTRATE 25 MG TAB PO SCH ×2 (13:14→16:34)
[2020-09-21] MEDS: AMIODARONE 200 MG TAB PO SCH (13:17)
[2020-09-21 14:08] VITALS: BMI 37.1
--- NOTE | 2020-09-21 14:11 | P.CRDCN ---
History of Present Illness History of present illness: HISTORY OF PRESENTING ILLNESS Patient is a pleasant 60-year-old male with history of end-stage renal disease on hemodialysis, coronary artery disease status post PCI of the circumflex and LAD in September 2018, paroxysmal atrial fibrillation, diabetes mellitus, hypertension, dyslipidemia and MRSA bacteremia who presents secondary to fevers. Patient normally follows with Dr. Bowie. He was having altered mental status and therefore presented to Hospital and was found to be febrile with olvin kocytosis and blood cultures were 2 of 2 positive for MRSA bacteremia. He does have a history of prior bacteremia in April 2020 and was given prolonged antibiotic treatment. He denies any chest pain or pressure. He states that normally with his MIs he more so just isn't acting right. States he feels back to normal in terms of his confusion and the blood cultures have been clear with no growth to date to of the last 2. He does get headaches and currently has his face under a blanket. Denies any shortness breath. We were asked to evaluate for possible YAYO to rule out endocarditis. 2-D echo was performed 09/19/2020 which shows normal ejection fraction 55-60%, mild aortic stenosis, mild mitral regurgitation and no other significant valvular disease with RVSP of 57. REVIEW OF SYSTEMS At the time of my exam: CONSTITUTIONAL: +intial fevers, no chills. CARDIOVASCULAR: Denies chest pain, shortness of breath, orthopnea, PND or palpitations. RESPIRATORY: Denies cough. GASTROINTESTINAL: Denies abdominal pain, diarrhea, constipation, nausea or vomiting. MUSCULOSKELETAL: Denies myalgias. NEUROLOGIC: Denies numbness, tingling or weakness. ENDOCRINE: Denies fatigue, weight change, polydipsia or polyurina. GENITOURINARY: Denies burning, hematuria or urgency with micturation. HEMATOLOGIC: Denies history of anemia or bleeding. PHYSICAL EXAMINATION Vital signs reviewed. CONSTITUTIONAL: No apparent distress. Head under blanket HEENT: Head is normocephalic. Pupils are equal, round. Sclerae anicteric. Mucous membranes of the mouth are moist. No JVD. No carotid bruit. CHEST EXAMINATION: Lungs are clear to auscultation. No chest wall tenderness is noted on palpation or with deep breathing. HEART EXAMINATION: Regular rate and rhythm. S1, S2 heard. No murmurs, gallops or rub. ABDOMEN: Soft, nontender. Positive bowel sounds. EXTREMITIES: 2+ peripheral pulses, no lower extremity edema and no calf tenderness. NEUROLOGIC EXAMINATION: Patient is awake, alert and oriented x3. ASSESSMENT 1. MRSA bacteremia, 2 of 2 initially 2. End-stage renal disease 3. Coronary artery disease status post stenting 2018 4. Paroxysmal atrial fibrillation 5. Hypertension 6. Hyperlipidemia 7. History of MRSA bacteremia PLAN Continue with current medical therapy, antibiotics. Await repeat blood cultures. Infectious disease recommendations appreciated with the recommendations for YAYO. We will attempt to schedule possibly Wednesday or Wednesday tending patient's progress. Past Medical History Past Medical History: Atrial Fibrillation, Coronary Artery Disease (CAD), Heart Failure, Diabetes Mellitus, Dialysis, Eye Disorder, GERD/Reflux, Hearing Dis order / Deafness, Hyperlipidemia, Hypertension, Myocardial Infarction ([place]), Renal Disease, Syncope Additional Past Medical History / Comment(s): IDDM type II, neuropathy bilateral hands/feet, ESRD with hemodialysis on /W/, chronic anemia, LVH, Afib with RVR, MIs, chronic CHF, R eye blindness, L eye legally blind, RLS, pt unsure if he has gout, vertigo at times, balance issues at times, stomach ulcer at age 17yrs, sinus problems, very [place] R ear. Last Myocardial Infarction Date:: 08/09/18 History of Any Multi-Drug Resistant Organisms: MRSA Date of last positivie culture/infection: 05/02/20 MDRO Source:: Blood Past Surgical History: Heart Catheterization, Heart Catheterization With Stent Additional Past Surgical History / Comment(s): TTT, PD catheter placement/since removed, 2016 L arm fistula, fistula gram with balloon for stenosis, L eye vitrectomy, thyroid needle aspiration-negative, L leg cyst, colonoscopy with benign polypectomy. port placed in chest Right side. Past Anesthesia/Blood Transfusion Reactions: Postoperative Nausea & Vomiting (PONV) Date of Last Stent Placement:: 03-03-18 Past Psychological History: Anxiety, Depression Additional Psychological History / Comment(s): Pt resides with his spouse, AND SON. He is legally blind L eye and blind in R eye. He is very [place] in R ear. He has a cane and walker which he uses prn. His spouse and son drive. Pt uses glasses and a magnifier to read. He has depression which he states is constantly present but not increased. He denies thoughts/plans of suicide. Smoking Status: Never smoker Past Alcohol Use History: None Reported Additional Past Alcohol Use History / Comment(s): Pt started smoking in 1972 and quit in 1995. Past Drug Use History: None Reported - Past Family History Father Family Medical History: Cancer, Coronary Artery Disease (CAD), Hyperlipidemia Additional Family Medical History / Comment(s): Lung/BRAIN CANCER Mother Family Medical History: Diabetes Mellitus, Deep Vein Thrombosis (DVT), Osteoarthritis (OA) Additional Family Medical History / Comment(s): DJD Sister(s) Family Medical History: Diabetes Mellitus Additional Family Medical History / Comment(s): Patient has one sister with diabetes mellitus type 2, SLE, MS. Brother(s) Family Medical History: Diabetes Mellitus Additional Family Medical History / Comment(s): Patient has 4 kids no major medical problems. Daughter(s) Family Medical History: No Reported History Additional Family Medical History / Comment(s): Patient has 2 daughters no major medical problems. Son(s) Family Medical History: No Reported History Additional Family Medical History / Comment(s): Patient has 2 sons no major medical problems. Medications and Allergies Home Medications Medication Instructions Recorded Confirmed Type Calcium Acetate [PhosLo] 667 mg PO TID@0800,1200,1700 08/05/18 09/19/20 History Furosemide [Lasix] 80 mg PO BID@0600,1800 04/13/19 09/19/20 History hydrOXYzine pamoate [Vistaril] 50 mg PO QID@00,06,12,18 02/06/20 09/19/20 History Pantoprazole [Protonix] 40 mg PO DAILY@0600 02/17/20 09/19/20 History Acetaminophen Tab [Tylenol] 650 mg PO Q6H PRN 08/12/20 09/19/20 History Aspirin EC [Ecotrin Low Dose] 81 mg PO DAILY@1700 08/12/20 09/19/20 History Epoetin Luis [Epogen] 4,000 unit SQ TUTHSA 08/12/20 09/19/20 History Ferrous Sulfate [Iron (65 MG 325 mg PO BID@0600,1700 08/12/20 09/19/20 History Elemental)] INSULIN ASPART (NovoLOG) [NovoLOG See Protocol SQ ACHS 08/12/20 09/19/20 History (formulary)] Insulin Detemir (Levemir) [Levemir] 10 unit SQ HS@2100 08/12/20 09/19/20 History Melatonin 1 mg PO HS 08/12/20 09/19/20 History Midodrine HCl [ProAmatine] 10 mg PO DAILY@0800 08/12/20 09/19/20 History Multivitamins, Thera [Multivitamin 1 tab PO DAILY@1700 08/12/20 09/19/20 History (formulary)] Na Phos,M-B/Na Phos,Di-Ba [Fleet 133 ml RECTAL DAILY PRN 08/12/20 09/19/20 History Adult] Sennosides/Docusate Sodium 1 tab PO Q12H PRN 08/12/20 09/19/20 History [Senna-S 8.6-50 mg Tablet] bisacodyL [Dulcolax] 10 mg RECTAL DAILY PRN 08/12/20 09/19/20 History Baclofen [Lioresal] 5 mg PO Q8H PRN #0 08/19/20 09/19/20 Rx Gabapentin 300 mg PO HS@2100 #3 cap 08/19/20 09/19/20 Rx HYDROcodone/APAP 5-325MG [[place] 1 tab PO Q6HR PRN #12 tab 08/19/20 09/19/20 Rx 5-325] Lactulose [Cephulac] 15 gm PO TID PRN ml 08/19/20 09/19/20 Rx Sodium Chloride 0.65% Nasal [Deep 2 spray NASAL QID PRN spray 08/19/20 09/19/20 Rx Sea (Saline)] Amiodarone [Cordarone] 200 mg PO DAILY@0800 09/19/20 09/19/20 History Apixaban [Eliquis] 2.5 mg PO BID@0800,1700 09/19/20 09/19/20 History Atorvastatin [Lipitor] 40 mg PO HS 09/19/20 09/19/20 History Cholestyramine/Aspartame 4 gm PO BID@0800,1700 09/19/20 09/19/20 History [Cholestyramine Light Packet] Liquacel 30 ml PO BID@0800,1700 09/19/20 09/19/20 History Metoprolol Tartrate [Lopressor] 25 mg PO BID@0800,1700 09/19/20 09/19/20 History Ondansetron HCl [Zofran] 4 mg PO Q6H PRN 09/19/20 09/19/20 History hydrALAZINE HCL [Apresoline] 75 mg PO TID@0800,1200,1700 09/19/20 09/19/20 History metOLazone [Zaroxolyn] 5 mg PO DAILY@0600 09/19/20 09/19/20 History Allergies Allergy/AdvReac Type Severity Reaction Status Date / Time codeine Allergy Unknown Verified 09/19/20 06:44 Penicillins Allergy Anaphylaxis Verified 09/19/20 06:44 sulfadiazine Allergy Unknown Verified 09/19/20 06:44 bumetanide [From Bumex] AdvReac Hallucinati Verified 09/19/20 06:44 ons morphine AdvReac Confusion Verified 09/19/20 06:44 rivaroxaban [From Xarelto] AdvReac Bloody Nose Verified 09/19/20 06:44 spironolactone AdvReac Hallucinati Verified 09/19/20 06:44 ons All antibiotics except Keflex Allergy Unknown Uncoded 09/19/20 06:44 Childhood Physical Exam Vitals: Vital Signs Temp Pulse Resp BP Pulse Ox 09/21/20 12:55 97.2 F L 105 H 144/79 09/21/20 07:41 100 09/21/20 07:26 98.7 F 55 L 18 135/81 100 09/21/20 02:12 97.9 F 56 L 16 120/71 97 09/20/20 20:00 18 09/20/20 19:06 98.3 F 60 18 133/86 100 Intake and Output 09/20/20 09/21/20 09/21/20 22:59 06:59 14:59 Output Total 3000 Balance -3000 Output: Hemodialysis 3000 Other: Voiding Method Incontinent # Voids 0 0 # Bowel Movements 3 0 Weight 104.326 kg Results 09/20/20 07:06 09/20/20 07:06 Current Medications Generic Name Dose Route Start Last Admin Trade Name Freq PRN Reason Stop Dose Admin Acetaminophen 650 mg 09/19/20 05:51 09/20/20 07:42 Acetaminophen Tab 325 Mg Tab PO 650 mg Q6HR PRN Administration Mild Pain or Fever > 100.5 Acetaminophen 650 mg 09/19/20 09:23 09/19/20 19:49 Acetaminophen Tab 325 Mg Tab PO 650 mg Q6H PRN Administration Pain or Fever > 100.5 Hydrocodone Bitart/Acetaminophen 1 each 09/19/20 09:23 Hydrocodone/Apap 5-325mg 1 Each Tab PO Q6HR PRN Pain Alprazolam 0.25 mg 09/20/20 11:15 09/20/20 11:40 Alprazolam 0.25 Mg Tab PO 0.25 mg BID PRN Administration Anxiety Amiodarone HCl 200 mg 09/20/20 08:00 09/21/20 13:17 Amiodarone 200 Mg Tab PO 200 mg DAILY@0800 [facility] Administration Apixaban 2.5 mg 09/19/20 17:00 09/21/20 08:46 Apixaban 2.5 Mg Tablet PO 2.5 mg BID@0800,1700 [facility] Administration Protocol Aspirin 81 mg 09/19/20 17:00 09/20/20 18:09 Aspirin 81 Mg PO 81 mg DAILY@1700 [facility] Administration Atorvastatin Calcium 40 mg 09/19/20 21:00 09/20/20 21:42 Atorvastatin 40 Mg Tab PO 40 mg HS [facility] Administration Baclofen 5 mg 09/19/20 09:23 Baclofen 10 Mg Tab PO Q8H PRN Muscle Pain Calcium Acetate 667 mg 09/19/20 12:00 09/21/20 12:35 Calcium Acetate 667 Mg Tab PO Not Given TID@0800,1200,1700 [facility] Cholestyramine Resin 4 gm 09/19/20 17:00 09/21/20 08:45 Cholestyramine (With Sugar) 4 Gm Packet PO 4 gm BID@0800,1700 [facility] Administration Darbepoetin Luis 40 mcg 09/19/20 10:00 09/19/20 10:18 Darbepoetin Luis 40 Mcg/0.4 Ml Syringe SQ 40 mcg WEEKLY [facility] Administration Ferrous Sulfate 325 mg 09/19/20 17:00 09/21/20 06:01 Ferrous Sulfate 325 Mg Tab PO 325 mg BID@0600,1700 [facility] Administration Furosemide 80 mg 09/19/20 18:00 09/21/20 06:01 Furosemide 80 Mg Tab PO 80 mg BID@0600,1800 [facility] Administration Hydralazine HCl 25 mg 09/20/20 09:16 Hydralazine Hcl 25 Mg Tab PO QID PRN BP >140 Hydroxyzine HCl 50 mg 09/19/20 12:00 09/21/20 12:35 Hydroxyzine Hcl 25 Mg Tab PO Not Given QID@00,06,12,18 [facility] Ibuprofen 400 mg 09/19/20 05:51 Ibuprofen 400 Mg Tab PO Q6HR PRN Mild Pain or Fever > 100.5 Insulin Aspart 0 unit 09/19/20 12:30 09/21/20 12:26 Insulin Aspart (Novolog) 100 Unit/Ml Vial SQ Not Given ACHS [facility] Protocol Insulin Detemir 10 unit 09/19/20 21:00 09/20/20 21:42 Insulin Detemir (Levemir) 100 Unit/Ml Syr SQ 10 unit HS@2100 [facility] Administration Lactulose 15 gm 09/19/20 09:23 Lactulose 20 Gm/30 Ml Cup PO TID PRN Constipation Melatonin 1 mg 09/19/20 21:00 09/20/20 21:42 Melatonin 1 Mg Tab PO 1 mg HS [facility] Administration Metolazone 5 mg 09/20/20 06:00 09/21/20 05:57 Metolazone 5 Mg Tab PO 5 mg DAILY@0600 [facility] Administration Metoprolol Tartrate 25 mg 09/19/20 17:00 09/21/20 13:14 Metoprolol Tartrate 25 Mg Tab PO Not Given BID@0800,1700 [facility] Midodrine 10 mg 09/19/20 14:00 09/21/20 08:45 Midodrine 5 Mg Tab PO 10 mg DAILY@0800 [facility] Administration Miscellaneous Information 1 each 09/19/20 17:37 Vancomycin Iv Per Pharmacy 1 Each Misc MISCELLANE DIRECTED PRN Per Protocol Protocol Multivitamins 1 each 09/19/20 17:00 09/20/20 18:09 Multivitamins, Thera 1 Each Tab PO 1 each DAILY@1700 [facility] Administration Naloxone HCl 0.2 mg 09/19/20 05:51 Naloxone 0.4 Mg/Ml 1 Ml Vial IV Q2M PRN Opioid Reversal Ondansetron HCl 4 mg 09/19/20 05:51 09/21/20 12:35 Ondansetron 4 Mg/2 Ml Vial IVP 4 mg Q8HR PRN Administration Nausea And Vomiting Pantoprazole Sodium 40 mg 09/20/20 07:30 09/21/20 08:46 Pantoprazole 40 Mg Tablet PO 40 mg DAILY@0730 [facility] Administration Senna/Docusate Sodium 1 each 09/19/20 09:23 Sennosides-Docusate Sodium 1 Each Tab PO Q12H PRN Constipation Sodium Chloride 2 spray 09/19/20 09:23 Sodium Chloride 0.65% Nasal [place] 44 Ml Btl NASAL QID PRN Dry Nasal Passages Intake and Output 09/20/20 09/21/20 09/21/20 22:59 06:59 14:59 Output Total 3000 Balance -3000 Output: Hemodialysis 3000 Other: Voiding Method Incontinent # Voids 0 0 # Bowel Movements 3 0 Weight 104.326 kg Patient Weight 09/22/20 06:59 Weight 104.326 kg 09/20/20 07:06 09/20/20 07:06
--- NOTE | 2020-09-21 15:06 | P.PN ---
Subjective Progress Note Date: 09/21/20 Follow-up for ESRD. Objective - Vital Signs Vital signs: Vital Signs Temp 98.7 F 09/21/20 15:00 Pulse 74 09/21/20 15:00 Resp 17 09/21/20 15:00 BP 137/93 09/21/20 15:00 Pulse Ox 100 09/21/20 15:00 Intake & Output 09/20/20 09/21/20 09/21/20 18:59 06:59 18:59 Output Total 3000 Balance -3000 Weight 104.326 kg Output: Hemodialysis 3000 Other: Voiding Method Incontinent # Voids 0 0 # Bowel Movements 3 0 - Exam No acute distress Sleeping. - Labs CBC & Chem 7: 09/20/20 07:06 09/20/20 07:06 Labs: Abnormal Lab Results - Last 24 Hours (Table) 09/20/20 09/20/20 09/20/20 Range/Units 07:06 17:08 20:29 POC Glucose (mg/dL) 116 H 125 H (75-99) mg/dL Hemoglobin A1c 6.6 H (4.0-6.0) % 09/21/20 Range/Units 11:36 POC Glucose (mg/dL) 108 H (75-99) mg/dL Hemoglobin A1c (4.0-6.0) % Microbiology - Last 24 Hours (Table) 09/19/20 21:23 Blood Culture Gram Stain - Preliminary Blood Blood Culture - Preliminary Presumptive MRSA 09/20/20 11:26 Blood Culture - Preliminary Blood No Growth after 24 hours 09/19/20 04:45 Blood Culture Gram Stain - Final Blood Blood Culture - Final Methicillin resist S. aureus 09/19/20 21:23 Blood Culture - Final Blood 09/19/20 05:00 Blood Culture Gram Stain - Preliminary Blood Blood Culture - Preliminary Staphylococcus aureus Assessment and Plan Assessment: #1 ESRD TTS schedule #2 MRSA bacteremia with history of endocarditis #3 anemia with chronic kidney disease #4 hypertension with chronic kidney disease #5 metabolic bone disease #6 atrial fibrillation on anticoagulation Plan: #1 hemodialysis today as per outpatient schedule. #2 awaiting YAYO.
[2020-09-21 16:33] LABS: Glucose,Whole Blood 145 mg/dL (75-99)
[2020-09-21] MEDS: ASPIRIN 81 MG PO SCH (16:34)
[2020-09-21] MEDS: MULTIVITAMINS, THERA 1 EACH TAB PO SCH (16:34)
--- NOTE | 2020-09-21 19:22 | PN ---
PROGRESS NOTE DATE OF SERVICE: 09/21/2020. REASON FOR FOLLOWUP: MRSA bacteremia. INTERVAL HISTORY: Patient is afebrile, mentioned not feeling as good after his dialysis was completed. Denies having any chest pain or cough. Some nausea but no further vomiting. No abdominal pain. No diarrhea. Denies any pain to the neck or the back area. PHYSICAL EXAMINATION: Blood pressure 137/90 with a pulse of 74, temperature 98.7, he is 100% on 2 L nasal cannula. General description is a middle-aged male lying in no distress. Respiratory system unlabored breathing with decreased intensity of breath sounds. No wheeze. Heart S1, S2. Regular rate and rhythm. Abdomen soft no tenderness. Extremities no edema of the feet. LABS: Hemoglobin is 10.4, white count 10.1, BUN of 71, creatinine 4.79. Liver enzymes mildly elevated. Nuclear test came back for decreased uptake in the lungs. No evidence of any abscess. DIAGNOSTIC IMPRESSION AND PLAN: Patient with MRSA bacteremia pending for endovascular source versus. Cardiology has been consulted for YAYO and possible MRI of cervical and lumbar spine afterwards as per discussion with the primary admitting physician. The patient's vancomycin to continue. Daily cultures to document clearance of his bacteremia. MMODL / IJN: [id number] /
[2020-09-21 19:36] LABS: Glucose,Whole Blood 166 mg/dL (75-99)
[2020-09-21] MEDS: ATORVASTATIN 40 MG TAB PO SCH (21:09)
[2020-09-21] MEDS: MELATONIN 1 MG TAB PO SCH (21:10)
[2020-09-21] MEDS: INSULIN DETEMIR (LEVEMIR) 100 UNIT/ML SYR SQ SCH (21:11)
[2020-09-22] MEDS: hydrOXYzine HCL 25 MG TAB PO SCH ×4 (00:10→17:34)
[2020-09-22] MEDS: BACLOFEN 10 MG TAB PO PRN (04:05)
[2020-09-22] MEDS: FERROUS SULFATE 325 MG TAB PO SCH ×2 (05:16→16:08)
[2020-09-22] MEDS: FUROSEMIDE 80 MG TAB PO SCH ×2 (05:43→17:35)
[2020-09-22] MEDS: metOLazone 5 MG TAB PO SCH (05:43)
[2020-09-22] MEDS: AMIODARONE 200 MG TAB PO SCH (07:10)
[2020-09-22] MEDS: APIXABAN 2.5 MG TABLET PO SCH ×2 (07:10→16:08)
[2020-09-22] MEDS: HYDROcodone/APAP 5-325MG 1 EACH TAB PO PRN (07:10)
[2020-09-22] MEDS: CHOLESTYRAMINE (WITH SUGAR) 4 GM PACKET PO SCH ×2 (07:10→16:08)
[2020-09-22] MEDS: METOPROLOL TARTRATE 25 MG TAB PO SCH ×2 (07:11→16:08)
[2020-09-22] MEDS: CALCIUM ACETATE 667 MG TAB PO SCH ×3 (07:11→16:08)
[2020-09-22] MEDS: PANTOPRAZOLE 40 MG TABLET PO SCH (07:11)
[2020-09-22] MEDS: MIDODRINE 5 MG TAB PO SCH (07:11)
[2020-09-22] MEDS: INSULIN ASPART (NovoLOG) 100 UNIT/ML VIAL SQ SCH ×4 (07:16→21:49)
[2020-09-22 07:19] LABS: Glucose,Whole Blood 94 mg/dL (75-99)
[2020-09-22] MEDS ORDERED: VANCOMYCIN 1,750 MG in SODIUM CHLORIDE 0.9% 500 ML 500 ML IVPB ONE (12:00)
[2020-09-22 12:04] LABS: Glucose,Whole Blood 146 mg/dL (75-99)
--- NOTE | 2020-09-22 14:34 | P.PN ---
Subjective Progress Note Date: 09/22/20 This is a 60-year-old male patient of Dr. Mckeon currently residing at [facility] under the care of Dr. Christian with a previous medical history significant for hypertension and hypertensive cardiovascular disease, hyperlipidemia, diabetes mellitus type 2, paroxysmal atrial fibrillation, coronary artery dis ease status post left heart catheterization and PCI of the obtuse marginal branch #1 off the LCx, followed by a recent PCI and stenting of the LAD back in September 2018, end-stage renal disease on hemodialysis Wednesday and Wednesday via left arm fistula, blindness of the right eye as well as left eye legally blind. Patient was hospitalized in April 2020 at which time he was treated for sepsis and MRSA bacteremia of unclear etiology with metabolic encephalopathy vasovagal episode requiring brief CPR and patient was transferred to [facility]. Patient was treated for MRSA osteomyelitis of the lumbar spine. Patient was discharged to [facility] for subacute rehab and was transferred from there yesterday to [facility] emergency center. Patient apparently had emesis after hemodialysis treatment. He was complaining of nausea and easy had decreased oral intake. He is complaining of dizziness. Patient had a drop in his blood pressure and has been refusing all his medications. On examination, patient is complaining of low back pain and has refused MRI of the lumbar spine. Temperature max 100.2, heart rate in the 60s to 80s, blood pressure 106/78, pulse ox 96% on 3 L nasal cannula. WBC 15.8, hemoglobin 11.1, platelet count 146. Sodium 135, potassium 5.0, chloride 94, CO2 22, BUN 19 creatinine 6.03. Blood sugar 236. Lactic acid 1.6. Magnesium 2.3, total bilirubin 0.9, AST 72, ALT 61 alkaline phosphatase 325. LDH 651. C- reactive protein 1.7. Urinalysis cloudy, blood moderate, leukoesterase small, RBCs 9, bacteria rare. Coronavirus PCR not detected. Gallbladder ultrasound reveals correlate for underlying cirrhosis. Hypoechoic appearance may be seen with hepatitis. Mild perihepatic ascites. Status post cholecystectomy. No biliary ductal dilatation. Chest x-ray reveals cardiomegaly and mild pulmonary congestion. Pulmonary vascularity slightly increased compared to old exam. Echocardiogram reveals EF of 55-60% with moderate concentric left ventricular hypertrophy, mild aortic stenosis, mild mitral regurgitation, mild tricuspid re gurgitation, moderate to severe pulmonary hypertension. No mention of vegetation. Patient admitted to the [facility] floor and consults requested with infectious disease and nephrology. 09/21 patient assessed today denies any fever or chills, denies any shortness of breath or breathing difficulty vitals are evaluated nt is afebrile pulse 65 respiratory rate 18 blood pressure 135/81 and oxygen saturation 100% on 2 L. Infectious disease was consulted who recommended nuclear scan increased uptake is noted in the lungs consistent with diffuse nonspecific inflammation process but no suggestion of abscess. Cardiology was consulted for possible YAYO. Patient has persistent MRSA infection and had multiple admissions for it. He was transferred to [facility] who thought patient had MRSA osteomyelitis for which patient has completed treatment. Due to persistent infection, cardiology was consulted. We will discuss with infectious disease for further management 09/22 patient examined bedside. Patient appears significantly heartrate as patient has not slept during the night. Patient is extremely weak and unable to come out of the bed. Detailed discussion with infectious disease and other attendings were done. MRI of the lumbar spine is recommended by Dr. Ardon. Patient is reluctant and refusing to get an MRI. Since patient is drowsy will discuss with the patient again. Vitals were reviewedpatient is afebrile temp 99.4 pulse 65 blood pressure 112/69 and oxygen saturation 96% on 2 L . No recent labs. Stat CBC CMP ordered REVIEW OF SYSTEMS Constitutional: Noted fever, no chills, no night sweats. No weight change. Reported weakness, reported fatigue Reported lethargy. Reported daytime sleepiness. increased lethargy EENT: No headache. No blurred vision or double vision, no loss of vision. No loss of Hearing, no ringing in the ears, no dizziness. No nasal drainage or congestion. No epistaxis. No sore throat. Lungs: No shortness of breath, cough, no sputum production. No wheezing. Cardiovascular: No chest pain, no lower extremity edema. No palpitations. No paroxysmal nocturnal dyspnea. No orthopnea. No lightheadedness or dizziness. No syncopal episodes. Abdominal: No abdominal pain. Reported nausea and vomiting. No diarrhea. No constipation. No bloody or tarry stools. Reported loss of appetite. Genitourinary: No dysuria, increased frequency, urgency. No urinary retention. Patient makes a small amount of urine. Musculoskeletal: No myalgias. Noted muscle weakness, no gait dysfunction, no frequent falls. Reported back pain. No neck pain. Integumentary: No wounds, no lesions. No rash or pruritus. No unusual bru ising. No change in hair or nails. Neurologic: No aphasia. No facial droop. Noted change in mentation. No head injury. No headache. No paralysis. No paresthesia. Psychiatric: No depression. No anxiety. No mood swings. Endocrine: Noted abnormal blood sugars. No weight change. PHYSICAL EXAMINATION Gen: This is a 60-year-old male patient resting in bed. He is currently receiving hemodialysis. He appears to be in no acute distress. HEENT: Head is atraumatic, normocephalic. Pupils equal, round. Sclerae is anicteric. NECK: Supple. No JVD. No lymphadenopathy. No thyromegaly. LUNGS: Clear to auscultation. No wheezes or rhonchi. No intercostal retractions. HEART: Regular rate and rhythm. 2/6 systolic murmur. ABDOMEN: Soft. Bowel sounds are present. No masses. No tenderness. EXTREMITIES: 2+ pedal edema. No calf tenderness. NEUROLOGICAL: Patient is lethargic, he wakens briefly to answer a few questions and then closes his eyes. Unable to follow simple commands only. Cranial nerves 2 through 12 are grossly intact. ASSESSMENT AND PLAN 1. Sepsis of unclear etiology. Patient started on meropenem, blood cultures in progress, positve for staph , consult with infectious disease. MRI of the lumbar spine has been ordered but patient is refusing. Echocardiogram to rule out vegetation. bone scan negative posterior for lung infiltrates no bony tenderness noted infectious disease recommended MRI of the lumbar spine. Hitesh t continues to refuse it. Jaime ZEE Wednesday or Wednesday 2. Infectious metabolic encephalopathy. Continue as in #1. Hold gabapentin. No SLR today 3. Complaints of lumbar pain, nausea vomiting and dizziness. Continue Zofran 4 mg IV every 8 hours as needed. 4. Recent treatment for MRSA bacteremia and lumbar spine osteomyelitis, completed course of antibiotics. 5. End-stage renal disease on hemodialysis. Consult with nephrology appreciated. Continue PhosLo 667 mg 3 times daily, Aranesp 40 g subcu every 7 days, hemodialysis. 6. Degenerative disc disease and spinal stenosis. Hold gabapentin. Continue baclofen 5 mg every 8 hours as needed. 7. History of coronary artery disease with previous PTCA to LAD and circumflex. Continue aspirin 81 mg daily, atorvastatin 40 mg at bedtime, Lopressor 25 mg twice daily. 8. Paroxysmal atrial fibrillation. Continue eliquis 2.5 mg twice daily, Lopressor, amiodarone 200 mg daily 8. Ischemic cardiomyopathy. Continue Lopressor, Lasix 80 mg twice daily, metolazone 5 mg daily. 9. Diabetes mellitus type 2, insulin requiring. Continue Levemir 10 units at bedtime, add NovoLog scale before meals and at bedtime, 10. Diabetic neuropathy. Hold gabapentin. 11. Hypertension. Continue hydralazine 75 mg 3 times daily. 12. Anemia of chronic disease. Continue ferrous sulfate 325 mg twice daily, Aranesp 40 g subcu every 7 days. 13. GI prophylaxis. Continue Protonix. 14. DVT prophylaxis. Eliquis Objective - Vital Signs Vital signs: Vital Signs Temp 98.3 F 09/22/20 09:08 Pulse 61 09/22/20 08:00 Resp 18 09/22/20 08:00 BP 132/77 09/22/20 08:00 Pulse Ox 100 09/22/20 08:00 Intake & Output 09/21/20 09/22/20 09/22/20 18:59 06:59 18:59 Output Total 3000 Balance -3000 Weight 104.326 kg Output: Hemodialysis 3000 Other: Voiding Method Incontinent Urinal Incontinent # Bowel Movements 2 1 - Labs CBC & Chem 7: 09/20/20 07:06 09/20/20 07:06 Labs: Abnormal Lab Results - Last 24 Hours (Table) 09/21/20 09/21/20 09/22/20 Range/Units 16:31 19:34 12:03 POC Glucose (mg/dL) 145 H 166 H 146 H (75-99) mg/dL Microbiology - Last 24 Hours (Table) 09/19/20 21:23 Blood Culture Gram Stain - Final Blood Blood Culture - Final Methicillin resist S. aureus 09/20/20 11:26 Blood Culture Gram Stain - Preliminary Blood 09/20/20 11:26 Blood Culture - Final Blood 09/19/20 04:45 Blood Culture Gram Stain - Final Blood Blood Culture - Final Methicillin resist S. aureus
--- NOTE | 2020-09-22 15:19 | P.PN ---
Subjective HISTORY OF PRESENTING ILLNESS Patient is a pleasant 60-year-old male with history of end-stage renal disease on hemodialysis, coronary artery disease status post PCI of the circumflex and LAD in September 2018, paroxysmal atrial fibrillation, diabetes mellitus, hypertension, dyslipidemia and MRSA bacteremia who presents secondary to fevers. Patient normally follows with Dr. Bowie. He was having altered mental status and therefore presented to Hospital and was found to be febrile with leukocytosis and blood cultures were 2 of 2 positive for MRSA bacteremia. He does have a history of prior bacteremia in April 2020 and was given prolonged antibiotic treatment. He denies any chest pain or pressure. He states that normally with his MIs he more so just isn't acting right. States he feels back to normal in terms of his confusion and the blood cultures have been clear with no growth to date to of the last 2. He does get headaches and currently has his face under a blanket. Denies any shortness breath. We were asked to evaluate for possible YAYO to rule out endocarditis. 2-D echo was performed 09/19/2020 which shows normal ejection fraction 55-60%, mild aortic stenosis, mild mitral regurgitation and no other significant valvular disease with RVSP of 57. 8/1 Patient seen and examined. Patient denies any chest pain or shortness breath. He states he does have some anxiety which she normally takes Ativan for. He did have dialysis yesterday. 3 L taken off. REVIEW OF SYSTEMS At the time of my exam: CONSTITUTIONAL: +intial fevers, no chills. CARDIOVASCULAR: Denies chest pain, shortness of breath, orthopnea, PND or palpitations. RESPIRATORY: Denies cough. GASTROINTESTINAL: Denies abdominal pain, diarrhea, constipation, nausea or vomiting. MUSCULOSKELETAL: Denies myalgias. NEUROLOGIC: Denies numbness, tingling or weakness. ENDOCRINE: Denies fatigue, weight change, polydipsia or polyurina. GENITOURINARY: Denies burning, hematuria or urgency with micturation. HEMATOLOGIC: Denies history of anemia or bleeding. PHYSICAL EXAMINATION Vital signs reviewed. CONSTITUTIONAL: No apparent distress. Head under blanket HEENT: Head is normocephalic. Pupils are equal, round. Sclerae anicteric. Mucous membranes of the mouth are moist. No JVD. No carotid bruit. CHEST EXAMINATION: Lungs are clear to auscultation. No chest wall tenderness is noted on palpation or with deep breathing. HEART EXAMINATION: Regular rate and rhythm. S1, S2 heard. No murmurs, gallops or rub. ABDOMEN: Soft, nontender. Positive bowel sounds. EXTREMITIES: 2+ peripheral pulses, no lower extremity edema and no calf tenderness. NEUROLOGIC EXAMINATION: Patient is awake, alert and oriented x3. ASSESSMENT 1. MRSA bacteremia, 2 of 2 initially 2. End-stage renal disease 3. Coronary artery disease status post stenting 2018 4. Paroxysmal atrial fibrillation 5. Hypertension 6. Hyperlipidemia 7. History of MRSA bacteremia PLAN Continue with current medical therapy, antibiotics. Await repeat blood cultures. Infectious disease recommendations appreciated with the recommendations for YAYO. Possible YAYO Wednesday or Wednesday with Dr Garvey, pending patient's progress. Objective - Vital Signs Vital signs: Vital Signs Temp 98.3 F 09/22/20 09:08 Pulse 61 09/22/20 08:00 Resp 18 09/22/20 08:00 BP 132/77 09/22/20 08:00 Pulse Ox 100 09/22/20 08:00 Intake & Output 09/21/20 09/22/20 09/22/20 18:59 06:59 18:59 Output Total 3000 Balance -3000 Weight 104.326 kg Output: Hemodialysis 3000 Other: Voiding Method Incontinent Urinal Incontinent # Bowel Movements 2 1 - Labs CBC & Chem 7: 09/20/20 07:06 09/20/20 07:06 Labs: Abnormal Lab Results - Last 24 Hours (Table) 09/21/20 09/21/20 09/22/20 Range/Units 16:31 19:34 12:03 POC Glucose (mg/dL) 145 H 166 H 146 H (75-99) mg/dL Microbiology - Last 24 Hours (Table) 09/19/20 21:23 Blood Culture Gram Stain - Final Blood Blood Culture - Final Methicillin resist S. aureus 09/20/20 11:26 Blood Culture Gram Stain - Preliminary Blood 09/20/20 11:26 Blood Culture - Final Blood
--- NOTE | 2020-09-22 15:55 | P.PN ---
Subjective Progress Note Date: 09/22/20 Follow-up for ESRD. Objective - Vital Signs Vital signs: Vital Signs Temp 98.4 F 09/22/20 14:00 Pulse 63 09/22/20 14:00 Resp 14 09/22/20 14:00 BP 139/75 09/22/20 14:00 Pulse Ox 97 09/22/20 14:00 Intake & Output 09/21/20 09/22/20 09/22/20 18:59 06:59 18:59 Output Total 3000 Balance -3000 Weight 104.326 kg Output: Hemodialysis 3000 Other: Voiding Method Incontinent Urinal Incontinent # Bowel Movements 2 1 - Exam No acute distress Sleeping. - Labs CBC & Chem 7: 09/20/20 07:06 09/20/20 07:06 Labs: Abnormal Lab Results - Last 24 Hours (Table) 09/21/20 09/21/20 09/22/20 Range/Units 16:31 19:34 12:03 POC Glucose (mg/dL) 145 H 166 H 146 H (75-99) mg/dL Microbiology - Last 24 Hours (Table) 09/20/20 11:26 Blood Culture Gram Stain - Preliminary Blood Blood Culture - Preliminary Presumptive MRSA 09/19/20 21:23 Blood Culture Gram Stain - Final Blood Blood Culture - Final Methicillin resist S. aureus 09/20/20 11:26 Blood Culture - Final Blood Assessment and Plan Assessment: #1 ESRD TTS schedule #2 MRSA bacteremia with history of endocarditis #3 anemia with chronic kidney disease #4 hypertension with chronic kidney disease #5 metabolic bone disease #6 atrial fibrillation on anticoagulation Plan: #1 hemodialysis as per outpatient schedule. #2 awaiting YAYO.
[2020-09-22] MEDS: ALPRAZolam 0.25 MG TAB PO PRN (16:07)
[2020-09-22] MEDS: MULTIVITAMINS, THERA 1 EACH TAB PO SCH (16:08)
[2020-09-22] MEDS: ASPIRIN 81 MG PO SCH (16:08)
[2020-09-22 17:09] LABS: Glucose,Whole Blood 149 mg/dL (75-99)
--- NOTE | 2020-09-22 19:19 | PN ---
PROGRESS NOTE DATE OF SERVICE: 09/22/2020. REASON FOR FOLLOWUP: MRSA bacteremia. INTERVAL HISTORY: Patient is afebrile. The patient is slightly sleepy, lethargic today. The patient is hemodynamically stable, not on pressor support. No vomiting or diarrhea has been reported. PHYSICAL EXAMINATION: Blood pressure 139/75, pulse of , temperature 98.4. He is 97% on 2 L nasal cannula. General description is a middle-aged male lying in bed in no distress. Respiratory system: Unlabored breathing, clear to auscultation anteriorly. Heart S1, S2. Regular rate and rhythm. Abdomen soft, no tenderness. LABS: Vanco random is 18.2. Blood culture from September 20 positive. DIAGNOSTIC IMPRESSION AND PLAN: Patient with persistent MRSA bacteremia with concern for possible deep source. Waiting for the YAYO the lumbar spine as well as cervical spine. Continue the vancomycin with daily blood culture to document clearance of bacteremia. MMODL / IJN: [id number] /
[2020-09-22 21:14] LABS: Glucose,Whole Blood 161 mg/dL (75-99)
[2020-09-22] MEDS: ATORVASTATIN 40 MG TAB PO SCH (21:49)
[2020-09-22] MEDS: INSULIN DETEMIR (LEVEMIR) 100 UNIT/ML SYR SQ SCH (21:49)
[2020-09-22] MEDS: MELATONIN 1 MG TAB PO SCH (21:53)
[2020-09-23] MEDS: hydrOXYzine HCL 25 MG TAB PO SCH ×4 (00:28→18:00)
[2020-09-23 07:12] LABS: HCT 30.5 % (39.0-53.0); HGB 9.9 gm/dL (13.0-17.5); Hypochromasia Slight; MCHC 32.6 g/dL (31.0-37.0); MCV 95.1 fL (80.0-100.0); Mean Platelet Volume 7.7; Platelet Count 131 k/uL (150-450); RBC 3.21 m/uL (4.30-5.90); RDW 15.3 % (11.5-15.5); WBC 9.4 k/uL (3.8-10.6)
[2020-09-23 07:28] LABS: ALT 73 U/L (4-49); AST 51 U/L (17-59); African American GFR (CKD) 11 (>60 ml/min/1.73 sqM); Albumin 3.4 g/dL (3.5-5.0); Albumin/Globulin Ratio 1.2; Alkaline Phosphatase 279 U/L (38-126); Anion Gap 14 mmol/L; Blood Urea Nitrogen 72 mg/dL (9-20); C Reactive Protein 2.7 mg/dL (<1.0); Carbon Dioxide 19 mmol/L (22-30); Chloride 104 mmol/L (98-107); Globulin 2.8 g/dL; Glucose 102 mg/dL (74-99); Non-African American GFR(CKD) 10 (>60 ml/min/1.73 sqM); Potassium 4.7 mmol/L (3.5-5.1); Sodium 137 mmol/L (137-145); Total Bilirubin 0.5 mg/dL (0.2-1.3); Total Protein 6.2 g/dL (6.3-8.2)
[2020-09-23 07:37] LABS: Glucose,Whole Blood 97 mg/dL (75-99)
[2020-09-23] MEDS: INSULIN ASPART (NovoLOG) 100 UNIT/ML VIAL SQ SCH ×3 (08:34→17:54)
[2020-09-23] MEDS: FERROUS SULFATE 325 MG TAB PO SCH ×2 (08:37→18:01)
[2020-09-23] MEDS: MIDODRINE 5 MG TAB PO SCH (08:38)
[2020-09-23] MEDS: APIXABAN 2.5 MG TABLET PO SCH ×2 (08:38→18:01)
[2020-09-23] MEDS: CHOLESTYRAMINE (WITH SUGAR) 4 GM PACKET PO SCH ×3 (08:38→18:17)
[2020-09-23] MEDS: PANTOPRAZOLE 40 MG TABLET PO SCH (08:38)
[2020-09-23] MEDS: CALCIUM ACETATE 667 MG TAB PO SCH ×3 (08:38→18:00)
[2020-09-23] MEDS: METOPROLOL TARTRATE 25 MG TAB PO SCH ×2 (08:48→18:00)
[2020-09-23] MEDS: metOLazone 5 MG TAB PO SCH (08:48)
[2020-09-23] MEDS: FUROSEMIDE 80 MG TAB PO SCH ×2 (08:48→18:00)
[2020-09-23] MEDS: AMIODARONE 200 MG TAB PO SCH (08:48)
[2020-09-23 08:51] LABS: Band Neutrophils % 1 %; Eosinophils # (M) 0.75 k/uL (0-0.7); Lymphocytes # (M) 0.75 k/uL (1.0-4.8); Monocytes # (M) 0.66 k/uL (0-1.0); Neutrophils % (M) 76 %; Nucleated Red Blood Cells 0 /100 WBC (0-0); Total Cells Counted 100
--- NOTE | 2020-09-23 10:42 | P.PN ---
Subjective Patient is seen in follow-up for end-stage renal disease. He is maintained on hemodialysis on Wednesday schedule. On antibiotics for MRSA bacteremia. YAYO pending. Feels tired. No chest pain or shortness of breath. Vital signs are stable. General: The patient appeared well nourished and normally developed. HEENT: Head exam is unremarkable. Neck is without jugular venous distension. LUNGS: Breath sounds decreased. HEART: Rate and Rhythm are regular. ABDOMEN: Soft, no distention. EXTREMITITES: Trace edema. Objective - Vital Signs Vital signs: Vital Signs Temp 97.6 F 09/23/20 07:44 Pulse 63 09/23/20 07:44 Resp 18 09/23/20 07:44 BP 161/91 09/23/20 07:44 Pulse Ox 99 09/23/20 07:44 Intake & Output 09/22/20 09/23/20 09/23/20 18:59 06:59 18:59 Other: Voiding Method Urinal Incontinent # Voids 0 1 # Bowel Movements 0 0 - Labs CBC & Chem 7: 09/23/20 06:43 09/23/20 06:43 Labs: Abnormal Lab Results - Last 24 Hours (Table) 09/22/20 09/22/20 09/22/20 Range/Units 12:03 17:06 21:12 RBC (4.30-5.90) m/uL Hgb (13.0-17.5) gm/dL Hct (39.0-53.0) % Plt Count (150-450) k/uL Lymphocytes # (Manual) (1.0-4.8) k/uL Eosinophils # (Manual) (0-0.7) k/uL Carbon Dioxide (22-30) mmol/L BUN (9-20) mg/dL Creatinine (0.66-1.25) mg/dL Glucose (74-99) mg/dL POC Glucose (mg/dL) 146 H 149 H 161 H (75-99) mg/dL ALT (4-49) U/L Alkaline Phosphatase (38-126) U/L C-Reactive Protein (<1.0) mg/dL Total Protein (6.3-8.2) g/dL Albumin (3.5-5.0) g/dL 09/23/20 09/23/20 Range/Units 06:43 06:43 RBC 3.21 L (4.30-5.90) m/uL Hgb 9.9 L (13.0-17.5) gm/dL Hct 30.5 L (39.0-53.0) % Plt Count 131 L (150-450) k/uL Lymphocytes # (Manual) 0.75 L (1.0-4.8) k/uL Eosinophils # (Manual) 0.75 H (0-0.7) k/uL Carbon Dioxide 19 L (22-30) mmol/L BUN 72 H (9-20) mg/dL Creatinine 5.68 H (0.66-1.25) mg/dL Glucose 102 H (74-99) mg/dL POC Glucose (mg/dL) (75-99) mg/dL ALT 73 H (4-49) U/L Alkaline Phosphatase 279 H (38-126) U/L C-Reactive Protein 2.7 H (<1.0) mg/dL Total Protein 6.2 L (6.3-8.2) g/dL Albumin 3.4 L (3.5-5.0) g/dL Microbiology - Last 24 Hours (Table) 09/20/20 11:26 Blood Culture Gram Stain - Final Blood Blood Culture - Final Methicillin resist S. aureus 09/19/20 21:23 Blood Culture Gram Stain - Final Blood Blood Culture - Final Methicillin resist S. aureus Assessment and Plan Plan: Assessment: 1. End-stage renal disease maintained on hemodialysis on Wednesday schedule via left upper extremity AV fistula. 2. MRSA bacteremia on antibiotics. Infectious disease following. YAYO pending. 3. Anemia of chronic kidney disease maintained on Aranesp. 4. Chronic kidney disease mineral bone disease maintained on PhosLo. 5. A. fib maintained on amiodarone, metoprolol and anticoagulation. 6. Diabetes mellitus. Plan: Hemodialysis tomorrow. Monitor vancomycin levels. Target level near 15. Dose to be adjusted for renal function.
[2020-09-23 11:37] LABS: Glucose,Whole Blood 78 mg/dL (75-99)
[2020-09-23] MEDS: DEXTROSE 5%-0.9% NACL 1,000 ML IV SCH (12:17)
--- NOTE | 2020-09-23 13:43 | P.PN ---
Subjective Progress Note Date: 09/23/20 This is a 60-year-old male patient of Dr. Mckeon currently residing at [facility] under the care of Dr. Christian with a previous medical history significant for hypertension and hypertensive cardiovascular disease, hyperlipidemia, diabetes mellitus type 2, paroxysmal atrial fibrillation, coronary artery dis ease status post left heart catheterization and PCI of the obtuse marginal branch #1 off the LCx, followed by a recent PCI and stenting of the LAD back in September 2018, end-stage renal disease on hemodialysis Wednesday and Wednesday via left arm fistula, blindness of the right eye as well as left eye legally blind. Patient was hospitalized in April 2020 at which time he was treated for sepsis and MRSA bacteremia of unclear etiology with metabolic encephalopathy vasovagal episode requiring brief CPR and patient was transferred to . Patient was treated for MRSA osteomyelitis of the lumbar spine. Patient was discharged to [facility] for subacute rehab and was transferred from there yesterday to [facility] emergency center. Patient apparently had emesis after hemodialysis treatment. He was complaining of nausea and easy had decreased oral intake. He is complaining of dizziness. Patient had a drop in his blood pressure and has been refusing all his medications. On examination, patient is complaining of low back pain and has refused MRI of the lumbar spine. Temperature max 100.2, heart rate in the 60s to 80s, blood pressure 106/78, pulse ox 96% on 3 L nasal cannula. WBC 15.8, hemoglobin 11.1, platelet count 146. Sodium 135, potassium 5.0, chloride 94, CO2 22, BUN 19 creatinine 6.03. Blood sugar 236. Lactic acid 1.6. Magnesium 2.3, total bilirubin 0.9, AST 72, ALT 61 alkaline phosphatase 325. LDH 651. C- reactive protein 1.7. Urinalysis cloudy, blood moderate, leukoesterase small, RBCs 9, bacteria rare. Coronavirus PCR not detected. Gallbladder ultrasound reveals correlate for underlying cirrhosis. Hypoechoic appearance may be seen with hepatitis. Mild perihepatic ascites. Status post cholecystectomy. No biliary ductal dilatation. Chest x-ray reveals cardiomegaly and mild pulmonary congestion. Pulmonary vascularity slightly increased compared to old exam. Echocardiogram reveals EF of 55-60% with moderate concentric left ventricular hypertrophy, mild aortic stenosis, mild mitral regurgitation, mild tricuspid re gurgitation, moderate to severe pulmonary hypertension. No mention of vegetation. Patient admitted to the [facility] floor and consults requested with infectious disease and nephrology. 09/21 patient assessed today denies any fever or chills, denies any shortness of breath or breathing difficulty vitals are evaluated nt is afebrile pulse 65 respiratory rate 18 blood pressure 135/81 and oxygen saturation 100% on 2 L. Infectious disease was consulted who recommended nuclear scan increased uptake is noted in the lungs consistent with diffuse nonspecific inflammation process but no suggestion of abscess. Cardiology was consulted for possible YAYO. Patient has persistent MRSA infection and had multiple admissions for it. He was transferred to [facility] who thought patient had MRSA osteomyelitis for which patient has completed treatment. Due to persistent infection, cardiology was consulted. We will discuss with infectious disease for further management 09/22 patient examined bedside. Patient appears significantly heartrate as patient has not slept during the night. Patient is extremely weak and unable to come out of the bed. Detailed discussion with infectious disease and other attendings were done. MRI of the lumbar spine is recommended by Dr. Ardon. Patient is reluctant and refusing to get an MRI. Since patient is drowsy will discuss with the patient again. Vitals were reviewedpatient is afebrile temp 99.4 pulse 65 blood pressure 112/69 and oxygen saturation 96% on 2 L . No recent labs. Stat CBC CMP ordered 09/23: Patient treated for persistent MRSA bacteremia and currently on IV vancomycin dosed by pharmacy. Patient is scheduled for MRI of the lumbar spine and YAYO. Patient has been afebrile, heart rate 63, blood pressure 161/91, pulse ox 99% on 3 L nasal cannula. Repeat blood work reveals WBC 9.4, hemoglobin 9.9, platelet count 131. Sodium 137, potassium 4.7, chloride 104, CO2 19, BUN 72 creatinine 5.68. Blood sugars are running between 97 and 161. Total bilirubin 0.5, AST 51, ALT 73, alkaline phosphates . Vancomycin level XXVIII. REVIEW OF SYSTEMS Constitutional: Noted fever, no chills, no night sweats. No weight change. Reported weakness, reported fatigue Reported lethargy. Reported daytime sleepiness. increased lethargy EENT: No headache. No blurred vision or double vision, no loss of vision. No loss of Hearing, no ringing in the ears, no dizziness. No nasal drainage or congestion. No epistaxis. No sore throat. Lungs: No shortness of breath, cough, no sputum production. No wheezing. Cardiovascular: No chest pain, no lower extremity edema. No palpitations. No paroxysmal nocturnal dyspnea. No orthopnea. No lightheadedness or dizziness. No syncopal episodes. Abdominal: No abdominal pain. Reported nausea and vomiting. No diarrhea. No constipation. No bloody or tarry stools. Reported loss of appetite. Genitourinary: No dysuria, increased frequency, urgency. No urinary retention. Patient makes a small amount of urine. Musculoskeletal: No myalgias. Noted muscle weakness, no gait dysfunction, no frequent falls. Reported back pain. No neck pain. Integumentary: No wounds, no lesions. No rash or pruritus. No unusual bruising. No change in hair or nails. Neurologic: No aphasia. No facial droop. Noted change in mentation. No head injury. No headache. No paralysis. No paresthesia. Psychiatric: No depression. No anxiety. No mood swings. Endocrine: Noted abnormal blood sugars. No weight change. PHYSICAL EXAMINATION Gen: This is a 60-year-old male patient resting in bed. He is currently receiving hemodialysis. He appears to be in no acute distress. HEENT: Head is atraumatic, normocephalic. Pupils equal, round. Sclerae is anicteric. NECK: Supple. No JVD. No lymphadenopathy. No thyromegaly. LUNGS: Clear to auscultation. No wheezes or rhonchi. No intercostal retractions. HEART: Regular rate and rhythm. 2/6 systolic murmur. ABDOMEN: Soft. Bowel sounds are present. No masses. No tenderness. EXTREMITIES: 2+ pedal edema. No calf tenderness. NEUROLOGICAL: Patient is lethargic, he wakens and answers questions and and is oriented in 3. Cranial nerves 2 through 12 are grossly intact. ASSESSMENT AND PLAN 1. Sepsis of unclear etiology. Patient started on meropenem, blood cultures in progress, positve for staph , consult with infectious disease. MRI of the lumbar spine has been ordered but patient is refusing. Echocardiogram to rule out vegetation. bone scan negative posterior for lung infiltrates no bony tenderness noted infectious disease recommended MRI of the lumbar spine. Patient continues to refuse it. YAYO today followed by MRI of the lumbar spine. 2. Infectious metabolic encephalopathy. Continue as in #1. Hold gabapentin. No SLR today 3. Complaints of lumbar pain, nausea vomiting and dizziness. Continue Zofran 4 mg IV every 8 hours as needed. 4. Recent treatment for MRSA bacteremia and lumbar spine osteomyelitis, completed course of antibiotics. 5. End-stage renal disease on hemodialysis. Consult with nephrology appreciated. Continue PhosLo 667 mg 3 times daily, Aranesp 40 g subcu every 7 days, hemodialysis. 6. Degenerative disc disease and spinal stenosis. Hold gabapentin. Continue baclofen 5 mg every 8 hours as needed. 7. History of coronary artery disease with previous PTCA to LAD and circumflex. Continue aspirin 81 mg daily, atorvastatin 40 mg at bedtime, Lopressor 25 mg twice daily. 8. Paroxysmal atrial fibrillation. Continue eliquis 2.5 mg twice daily, Lopressor, amiodarone 200 mg daily 8. Ischemic cardiomyopathy. Continue Lopressor, Lasix 80 mg twice daily, metolazone 5 mg daily. 9. Diabetes mellitus type 2, insulin requiring. Continue Levemir 10 units at bedtime, add NovoLog scale before meals and at bedtime, 10. Diabetic neuropathy. Hold gabapentin. 11. Hypertension. Continue hydralazine 75 mg 3 times daily. 12. Anemia of chronic disease. Continue ferrous sulfate 325 mg twice daily, Aranesp 40 g subcu every 7 days. 13. GI prophylaxis. Continue Protonix. 14. DVT prophylaxis. Eliquis DISCHARGE PLAN Return to [facility]. Impression and plan of care have been directed as dictated by the signing physician. Katelyn Wesley nurse practitioner acting as scribe for signing physician. Objective - Vital Signs Vital signs: Vital Signs Temp 97.6 F 09/23/20 07:44 Pulse 63 09/23/20 07:44 Resp 18 09/23/20 07:44 BP 161/91 09/23/20 07:44 Pulse Ox 99 09/23/20 07:44 Intake & Output 09/22/20 09/23/20 09/23/20 18:59 06:59 18:59 Other: Voiding Method Urinal Incontinent # Voids 0 1 # Bowel Movements 0 0 - Labs CBC & Chem 7: 09/23/20 06:43 09/23/20 06:43 Labs: Abnormal Lab Results - Last 24 Hours (Table) 09/22/20 09/22/2009/22/21 Range/Units 12:03 17:06 21:12 RBC (4.30-5.90) m/uL Hgb (13.0-17.5) gm/dL Hct (39.0-53.0) % Plt Count (150-450) k/uL Carbon Dioxide (22-30) mmol/L BUN (9-20) mg/dL Creatinine (0.66-1.25) mg/dL Glucose (74-99) mg/dL POC Glucose (mg/dL) 146 H 149 H 161 H (75-99) mg/dL ALT (4-49) U/L Alkaline Phosphatase (38-126) U/L C-Reactive Protein (<1.0) mg/dL Total Protein (6.3-8.2) g/dL Albumin (3.5-5.0) g/dL 09/23/20 09/23/20 Range/Units 06:43 06:43 RBC 3.21 L (4.30-5.90) m/uL Hgb 9.9 L (13.0-17.5) gm/dL Hct 30.5 L (39.0-53.0) % Plt Count 131 L (150-450) k/uL Carbon Dioxide 19 L (22-30) mmol/L BUN 72 H (9-20) mg/dL Creatinine 5.68 H (0.66-1.25) mg/dL Glucose 102 H (74-99) mg/dL POC Glucose (mg/dL) (75-99) mg/dL ALT 73 H (4-49) U/L Alkaline Phosphatase 279 H (38-126) U/L C-Reactive Protein 2.7 H (<1.0) mg/dL Total Protein 6.2 L (6.3-8.2) g/dL Albumin 3.4 L (3.5-5.0) g/dL Microbiology - Last 24 Hours (Table) 09/20/20 11:26 Blood Culture Gram Stain - Preliminary Blood Blood Culture - Preliminary Presumptive MRSA 09/19/20 21:23 Blood Culture Gram Stain - Final Blood Blood Culture - Final Methicillin resist S. aureus
--- NOTE | 2020-09-23 14:52 | P.PN ---
Subjective Progress Note Date: 09/23/20 HISTORY OF PRESENT ILLNESS: Patient is a pleasant 60-year-old male with history of end-stage renal disease on hemodialysis, coronary artery disease status post PCI of the circumflex and LAD in September 2018, paroxysmal atrial fibrillation, diabetes mellitus, hypertension, dyslipidemia and MRSA bacteremia who presents secondary to fevers. Patient normally follows with Dr. Bowie. He was having altered mental status and therefore presented to Hospital and was found to be febrile with leukocytosis and blood cultures were 2 of 2 positive for MRSA bacteremia. He does have a history of prior bacteremia in April 2020 and was given prolonged antibiotic treatment. He denies any chest pain or pressure. He states that normally with his MIs he more so just isn't acting right. States he feels back to normal in terms of his confusion and the blood cultures have been clear with no growth to date to of the last 2. He does get headaches and currently has his face under a blanket. Denies any shortness breath. We were asked to evaluate for possible YAYO to rule out endocarditis. 2-D echo was performed 09/19/2020 which shows normal ejection fraction 55-60%, mild aortic stenosis, mild mitral regurgitation and no other significant valvular disease with RVSP of 57. 8/ Patient seen and examined. Patient denies any chest pain or shortness breath. He states he does have some anxiety which she normally takes Ativan for. He did have dialysis yesterday. 3 L taken off. 09/23/2020 Patient examined at the bedside with Dr. Wills. Patient denies chest pain or pressure. He denies shortness of breath. Vital signs are stable. PHYSICAL EXAM: VITAL SIGNS: Reviewed. GENERAL: Well-developed in no acute distress. NECK: Supple. No JVD or thyromegaly LUNGS: Respirations even and unlabored. Lungs essentially clear to auscultation bilaterally. HEART: Regular rate and rhythm. S1 and S2 heard. EXTREMITIES: Normal range of motion. No clubbing or cyanosis. Peripheral pulses intact. Trace bilateral lower extremity edema ASSESSMENT: 1. MRSA bacteremia, 2 of 2 initially 2. End-stage renal disease 3. Coronary artery disease status post stenting 2018 4. Paroxysmal atrial fibrillation 5. Hypertension 6. Hyperlipidemia 7. History of MRSA bacteremia PLAN: NPO at midnight Patient to undergo YAYO tomorrow with Dr. Bowie Nurse practitioner note has been reviewed by physician. Signing provider agrees with the documented findings, assessment, and plan of care. Objective - Vital Signs Vital signs: Vital Signs Temp 97.6 F 09/23/20 07:44 Pulse 63 09/23/20 07:44 Resp 18 09/23/20 07:44 BP 161/91 09/23/20 07:44 Pulse Ox 99 09/23/20 07:44 Intake & Output 09/22/20 09/23/20 09/23/20 18:59 06:59 18:59 Other: Voiding Method Urinal Incontinent # Voids 0 1 # Bowel Movements 0 0 - Labs CBC & Chem 7: 09/23/20 06:43 09/23/20 06:43 Labs: Abnormal Lab Results - Last 24 Hours (Table) 09/22/20 09/22/20 09/23/20 Range/Units 17:06 21:12 06:43 RBC 3.21 L (4.30-5.90) m/uL Hgb 9.9 L (13.0-17.5) gm/dL Hct 30.5 L (39.0-53.0) % Plt Count 131 L (150-450) k/uL Lymphocytes # (Manual) 0.75 L (1.0-4.8) k/uL Eosinophils # (Manual) 0.75 H (0-0.7) k/uL Carbon Dioxide (22-30) mmol/L BUN (9-20) mg/dL Creatinine (0.66-1.25) mg/dL Glucose (74-99) mg/dL POC Glucose (mg/dL) 149 H 161 H (75-99) mg/dL ALT (4-49) U/L Alkaline Phosphatase (38-126) U/L C-Reactive Protein (<1.0) mg/dL Total Protein (6.3-8.2) g/dL Albumin (3.5-5.0) g/dL 09/23/20 Range/Units 06:43 RBC (4.30-5.90) m/uL Hgb (13.0-17.5) gm/dL Hct (39.0-53.0) % Plt Count (150-450) k/uL Lymphocytes # (Manual) (1.0-4.8) k/uL Eosinophils # (Manual) (0-0.7) k/uL Carbon Dioxide 19 L (22-30) mmol/L BUN 72 H (9-20) mg/dL Creatinine 5.68 H (0.66-1.25) mg/dL Glucose 102 H (74-99) mg/dL POC Glucose (mg/dL) (75-99) mg/dL ALT 73 H (4-49) U/L Alkaline Phosphatase 279 H (38-126) U/L C-Reactive Protein 2.7 H (<1.0) mg/dL Total Protein 6.2 L (6.3-8.2) g/dL Albumin 3.4 L (3.5-5.0) g/dL Microbiology - Last 24 Hours (Table) 09/20/20 11:26 Blood Culture Gram Stain - Final Blood Blood Culture - Final Methicillin resist S. aureus 09/19/20 21:23 Blood Culture Gram Stain - Final Blood Blood Culture - Final Methicillin resist S. aureus
[2020-09-23 16:57] LABS: Glucose,Whole Blood 123 mg/dL (75-99)
[2020-09-23] MEDS: MULTIVITAMINS, THERA 1 EACH TAB PO SCH (18:01)
[2020-09-23] MEDS: ASPIRIN 81 MG PO SCH (18:01)
[2020-09-23 21:04] LABS: Glucose,Whole Blood 124 mg/dL (75-99)
[2020-09-23] MEDS: INSULIN DETEMIR (LEVEMIR) 100 UNIT/ML SYR SQ SCH (22:36)
[2020-09-23] MEDS: ATORVASTATIN 40 MG TAB PO SCH (22:36)
[2020-09-23] MEDS: MELATONIN 1 MG TAB PO SCH (22:44)
[2020-09-24] MEDS: INSULIN ASPART (NovoLOG) 100 UNIT/ML VIAL SQ SCH ×5 (00:33→22:34)
[2020-09-24] MEDS: hydrOXYzine HCL 25 MG TAB PO SCH ×4 (00:46→18:27)
[2020-09-24] MEDS: HYDROcodone/APAP 5-325MG 1 EACH TAB PO PRN (04:22)
[2020-09-24] MEDS: FERROUS SULFATE 325 MG TAB PO SCH ×2 (06:21→18:27)
[2020-09-24] MEDS: FUROSEMIDE 80 MG TAB PO SCH ×2 (06:21→21:25)
[2020-09-24] MEDS: metOLazone 5 MG TAB PO SCH (06:23)
[2020-09-24 07:19] LABS: Glucose,Whole Blood 154 mg/dL (75-99)
[2020-09-24 07:38] LABS: Vancomycin,Random 25.6 ug/mL
[2020-09-24] MEDS: PANTOPRAZOLE 40 MG TABLET PO SCH (07:58)
[2020-09-24] MEDS: CALCIUM ACETATE 667 MG TAB PO SCH ×3 (07:58→18:04)
[2020-09-24] MEDS: AMIODARONE 200 MG TAB PO SCH ×2 (07:58→17:31)
[2020-09-24] MEDS: METOPROLOL TARTRATE 25 MG TAB PO SCH ×2 (07:59→17:31)
[2020-09-24] MEDS: CHOLESTYRAMINE (WITH SUGAR) 4 GM PACKET PO SCH ×2 (07:59→18:05)
[2020-09-24] MEDS: DEXTROSE 5%-0.9% NACL 1,000 ML IV SCH (08:08)
[2020-09-24] MEDS ORDERED: LORazepam 2 MG/ML INJ IV STA (09:05)
--- NOTE | 2020-09-24 09:10 | PN ---
PROGRESS NOTE DATE OF SERVICE: 09/23/2020 REASON FOR FOLLOWUP: MRSA bacteremia. INTERVAL HISTORY: Patient is afebrile. The patient is breathing comfortably. The patient is hemodynamically stable. The patient remains to be sleepy, lethargic. Denies any chest pain, shortness of breath or cough. No abdominal pain, no diarrhea. PHYSICAL EXAMINATION: Blood pressure 156/90 with a pulse of 80, temperature 98.1. He is 100% on 2 L nasal cannula. General description is a middle-aged male lying in bed in no distress. Respiratory system: Unlabored breathing, clear to auscultation anteriorly. Heart S1, S2. Regular rate and rhythm. Abdomen soft, no tenderness. Extremities: No edema of the feet. LABS: Blood cultures with MRSA ( ). Hemoglobin is 9.8, white count 9.4, BUN of 72, creatinine 5.68. The patient [facility] at [facility] were reviewed. The patient did have evidence of T8 diskitis and there was question of perispinal abscess at thoracic, cervical as well as lumbar spine which were not drained and ( ) was done. DIAGNOSTIC IMPRESSION AND PLAN: Patient with recurrent MRSA bacteremia, concern likely for paraspinal abscess and diskitis. The patient is a dialysis patient and will be risk of contrast dye. However, especially thoracic spine, MRI with contrast will be more beneficial. This was discussed in detail with Nephrology as well as admitting team. Will get MRI of the cervical, thoracic, lumbar spine. The patient is covered with vancomycin and continue with supportive care. MMODL / IJN: [id number] /
[2020-09-24] MEDS: ONDANSETRON 4 MG/2 ML VIAL IVP PRN (09:20)
[2020-09-24] MEDS: MIDODRINE 5 MG TAB PO SCH (10:05)
[2020-09-24] MEDS: APIXABAN 2.5 MG TABLET PO SCH ×4 (10:05→21:25)
--- NOTE | 2020-09-24 10:09 | P.PN ---
Subjective Patient is seen in follow-up for end-stage renal disease. He is maintained on hemodialysis on Wednesday schedule. On antibiotics for MRSA bacteremia. YAYO pending. Feels tired. No chest pain or shortness of breath. Also scheduled to undergo MRI with contrast of the spine today. Vital signs are stable. General: The patient appeared well nourished and normally developed. HEENT: Head exam is unremarkable. Neck is without jugular venous distension. LUNGS: Breath sounds decreased. HEART: Rate and Rhythm are regular. ABDOMEN: Soft, no distention. EXTREMITITES: Trace edema. Objective - Vital Signs Vital signs: Vital Signs Temp 98.3 F 09/24/20 07:28 Pulse 60 09/24/20 07:28 Resp 16 09/24/20 08:00 BP 126/73 09/24/20 07:28 Pulse Ox 100 09/24/20 07:51 Intake & Output 09/23/20 09/24/20 09/24/20 18:59 06:59 18:59 Other: Voiding Method Urinal Urinal Incontinent Incontinent # Voids 0 # Bowel Movements 1 1 - Labs CBC & Chem 7: 09/23/20 06:43 09/24/20 07:01 Labs: Abnormal Lab Results - Last 24 Hours (Table) 09/23/20 09/23/20 09/24/20 Range/Units 16:52 20:56 07:01 Creatinine 6.16 H (0.66-1.25) mg/dL POC Glucose (mg/dL) 123 H 124 H (75-99) mg/dL 09/24/20 Range/Units 07:17 Creatinine (0.66-1.25) mg/dL POC Glucose (mg/dL) 154 H (75-99) mg/dL Microbiology - Last 24 Hours (Table) 09/20/20 11:26 Blood Culture Gram Stain - Final Blood Blood Culture - Final Methicillin resist S. aureus Assessment and Plan Plan: Assessment: 1. End-stage renal disease maintained on hemodialysis on Wednesday schedule via left upper extremity AV fistula. 2. MRSA bacteremia on antibiotics. Infectious disease following. YAYO pending. MRI of the spine pending as well. 3. Anemia of chronic kidney disease maintained on Aranesp. 4. Chronic kidney disease mineral bone disease maintained on PhosLo. 5. A. fib maintained on amiodarone, metoprolol and anticoagulation. 6. Diabetes mellitus. Plan: Currently seen was undergoing hemodialysis. I will stop the treatment now and plan to do hemodialysis immediately after the MRI is done. Discussed case with infectious disease. Due to persistent MRSA bacteremia and history of spinal abscess, MRI of the contrast is deemed necessary. Risk of developing NSF were discussed. He will be dialyzed after the MRI today and again the next 2 days. Monitor vancomycin levels. Target level near 15. Dose to be adjusted for renal function.
[2020-09-24 11:42] LABS: Glucose,Whole Blood 108 mg/dL (75-99)
[2020-09-24] MEDS ORDERED: fentaNYL (PF) 50 MCG/ML 2 ML AMP ONE (12:31)
--- NOTE | 2020-09-24 12:41 | P.PN ---
Subjective Progress Note Date: 09/24/20 This is a 60-year-old male patient of Dr. Mckeon currently residing at [facility] under the care of Dr. Christian with a previous medical history significant for hypertension and hypertensive cardiovascular disease, hyperlipidemia, diabetes mellitus type 2, paroxysmal atrial fibrillation, coronary artery dis ease status post left heart catheterization and PCI of the obtuse marginal branch #1 off the LCx, followed by a recent PCI and stenting of the LAD back in September 2018, end-stage renal disease on hemodialysis Wednesday and Wednesday via left arm fistula, blindness of the right eye as well as left eye legally blind. Patient was hospitalized in April 2020 at which time he was treated for sepsis and MRSA bacteremia of unclear etiology with metabolic encephalopathy vasovagal episode requiring brief CPR and patient was transferred to [facility]. Patient was treated for MRSA osteomyelitis of the lumbar spine. Patient was discharged to [facility] for subacute rehab and was transferred from there yesterday to [facility] emergency center. Patient apparently had emesis after hemodialysis treatment. He was complaining of nausea and easy had decreased oral intake. He is complaining of dizziness. Patient had a drop in his blood pressure and has been refusing all his medications. On examination, patient is complaining of low back pain and has refused MRI of the lumbar spine. Temperature max 100.2, heart rate in the 60s to 80s, blood pressure 106/78, pulse ox 96% on 3 L nasal cannula. WBC 15.8, hemoglobin 11.1, platelet count 146. Sodium 135, potassium 5.0, chloride 94, CO2 22, BUN 19 creatinine 6.03. Blood sugar 236. Lactic acid 1.6. Magnesium 2.3, total bilirubin 0.9, AST 72, ALT 61 alkaline phosphatase 325. LDH 651. C- reactive protein 1.7. Urinalysis cloudy, blood moderate, leukoesterase small, RBCs 9, bacteria rare. Coronavirus PCR not detected. Gallbladder ultrasound reveals correlate for underlying cirrhosis. Hypoechoic appearance may be seen with hepatitis. Mild perihepatic ascites. Status post cholecystectomy. No biliary ductal dilatation. Chest x-ray reveals cardiomegaly and mild pulmonary congestion. Pulmonary vascularity slightly increased compared to old exam. Echocardiogram reveals EF of 55-60% with moderate concentric left ventricular hypertrophy, mild aortic stenosis, mild mitral regurgitation, mild tricuspid re gurgitation, moderate to severe pulmonary hypertension. No mention of vegetation. Patient admitted to the [facility] floor and consults requested with infectious disease and nephrology. 09/21 patient assessed today denies any fever or chills, denies any shortness of breath or breathing difficulty vitals are evaluated nt is afebrile pulse 65 respiratory rate 18 blood pressure 135/81 and oxygen saturation 100% on 2 L. Infectious disease was consulted who recommended nuclear scan increased uptake is noted in the lungs consistent with diffuse nonspecific inflammation process but no suggestion of abscess. Cardiology was consulted for possible YAYO. Patient has persistent MRSA infection and had multiple admissions for it. He was transferred to [facility] who thought patient had MRSA osteomyelitis for which patient has completed treatment. Due to persistent infection, cardiology was consulted. We will discuss with infectious disease for further management 09/22 patient examined bedside. Patient appears significantly heartrate as patient has not slept during the night. Patient is extremely weak and unable to come out of the bed. Detailed discussion with infectious disease and other attendings were done. MRI of the lumbar spine is recommended by Dr. Ardon. Patient is reluctant and refusing to get an MRI. Since patient is drowsy will discuss with the patient again. Vitals were reviewedpatient is afebrile temp 99.4 pulse 65 blood pressure 112/69 and oxygen saturation 96% on 2 L . No recent labs. Stat CBC CMP ordered 09/23: Patient treated for persistent MRSA bacteremia and currently on IV vancomycin dosed by pharmacy. Patient is scheduled for MRI of the lumbar spine and YAYO. Patient has been afebrile, heart rate 63, blood pressure 161/91, pulse ox 99% on 3 L nasal cannula. Repeat blood work reveals WBC 9.4, hemoglobin 9.9, platelet count 131. Sodium 137, potassium 4.7, chloride 104, CO2 19, BUN 72 creatinine 5.68. Blood sugars are running between 97 and 161. Total bilirubin 0.5, AST 51, ALT 73, alkaline phosphates . Vancomycin level XXVIII. 09/24: Patient is undergoing hemodialysis this morning. YAYO has been postponed until today. Case was discussed with Dr. Presley and nephrology and plan is for thoracic MRI with contrast and MRI of the cervical spine and lumbar spine without contrast and last low dose is given for the thoracic and patient is able to tolerate. Patient has been afebrile, heart rate 64, blood pressure 183/84, pulse ox 100% On 3 L nasal cannula. Patient's mentation is not back to normal. Reports from [facility] reveal CAT scan of the spine: 1. Retropharyngeal fluids/phlegmon in the upper neck. Hypodensity seen extending into the right longus coli as well as fluid seen surrounding the C1-C2 articulation suggestive of abscesses. Bacterial versus tuberculosis etiology should be considered. There is thickened epidural soft tissue noted dorsal to the dens. 2. Thoracic spine showed erosive changes of the anterior margin of T8 as well as destruction of the T8-T9 anterior osteophyte concerning for osteomyelitis. 3. Lumbar spine revealed degenerative changes as above with compression of the exiting L5 nerve root on the left. There is demineralization seen involving the anterior superior aspect of L2 corresponding to fluid cortical irregularity on accompanying MRI. This is worrisome for additional area of osteomyelitis. No CT evidence of epidural abscess, acute fracture or s ubluxation. TTE was unremarkable and YAYO was not recommended. Left upper extremity CT with contrast did not show evidence of abscess or thrombus. REVIEW OF SYSTEMS Constitutional: Noted fever, no chills, no night sweats. No weight change. Reported weakness, reported fatigue Reported lethargy. Reported daytime sleepiness. increased lethargy EENT: No headache. No blurred vision or double vision, no loss of vision. No loss of Hearing, no ringing in the ears, no dizziness. No nasal drainage or congestion. No epistaxis. No sore throat. Lungs: No shortness of breath, cough, no sputum production. No wheezing. Cardiovascular: No chest pain, no lower extremity edema. No palpitations. No paroxysmal nocturnal dyspnea. No orthopnea. No lightheadedness or dizziness. No syncopal episodes. Abdominal: No abdominal pain. Reported nausea and vomiting. No diarrhea. No constipation. No bloody or tarry stools. Reported loss of appetite. Genitourinary: No dysuria, increased frequency, urgency. No urinary retention. Patient makes a small amount of urine. Musculoskeletal: No myalgias. Noted muscle weakness, no gait dysfunction, no frequent falls. Reported back pain. No neck pain. Integumentary: No wounds, no lesions. No rash or pruritus. No unusual bruising. No change in hair or nails. Neurologic: No aphasia. No facial droop. Noted change in mentation. No head injury. No headache. No paralysis. No paresthesia. Psychiatric: No depression. No anxiety. No mood swings. Endocrine: Noted abnormal blood sugars. No weight change. PHYSICAL EXAMINATION Gen: This is a 60-year-old male patient resting in bed. He is currently receiving hemodialysis. He appears to be in no acute distress. HEENT: Head is atraumatic, normocephalic. Pupils equal, round. Sclerae is anicteric. NECK: Supple. No JVD. No lymphadenopathy. No thyromegaly. LUNGS: Clear to auscultation. No wheezes or rhonchi. No intercostal retractions. HEART: Regular rate and rhythm. 2/6 systolic murmur. ABDOMEN: Soft. Bowel sounds are present. No masses. No tenderness. EXTREMITIES: 2+ pedal edema. No calf tenderness. NEUROLOGICAL: Patient is lethargic, he wakens and answers questions. Cranial nerves 2 through 12 are grossly intact. ASSESSMENT AND PLAN 1. Sepsis and persistent MRSA bacteremia secondary to suspected osteomyelitis of the thoracic spine, possible lumbar spine and cervical spine abscess, cannot be excluded at this point. Patient started on meropenem, blood cultures in progress, positve for staph , consult with infectious disease. MRI of the lumbar spine has been ordered but patient is refusing. Echocardiogram to rule out vegetation. bone scan negative posterior for lung infiltrates no bony tenderness noted infectious disease recommended MRI of the lumbar spine. Patient continues to refuse it. YAYO today followed by MRI of the cervical, thoracic and lumbar spine 2. Infectious metabolic encephalopathy. Continue as in #1. Hold gabapentin. 3. Complaints of lumbar pain, nausea vomiting and dizziness. Continue Zofran 4 mg IV every 8 hours as needed. 4. Recent treatment for MRSA bacteremia and thoracic lumbar spine osteomyelitis, completed course of antibiotics. 5. End-stage renal disease on hemodialysis. Consult with nephrology appreciated. Continue PhosLo 667 mg 3 times daily, Aranesp 40 g subcu every 7 days, hemodialysis. 6. Degenerative disc disease and spinal stenosis. Hold gabapentin. Continue baclofen 5 mg every 8 hours as needed. 7. History of coronary artery disease with previous PTCA to LAD and circumflex. Continue aspirin 81 mg daily, atorvastatin 40 mg at bedtime, Lopressor 25 mg twice daily. 8. Paroxysmal atrial fibrillation. Continue eliquis 2.5 mg twice daily, Lopressor, amiodarone 200 mg daily 8. Ischemic cardiomyopathy. Continue Lopressor, Lasix 80 mg twice daily, metolazone 5 mg daily. 9. Diabetes mellitus type 2, insulin requiring. Continue Levemir 10 units at bedtime, add NovoLog scale before meals and at bedtime, 10. Diabetic neuropathy. Hold gabapentin. 11. Hypertension. Continue hydralazine 75 mg 3 times daily. 12. Anemia of chronic disease. Continue ferrous sulfate 325 mg twice daily, Aranesp 40 g subcu every 7 days. 13. GI prophylaxis. Continue Protonix. 14. DVT prophylaxis. Eliquis DISCHARGE PLAN Return to [facility]. Impression and plan of care have been directed as dictated by the signing physician. Katelyn Wesley nurse practitioner acting as scribe for signing physician. Objective - Vital Signs Vital signs: Vital Signs Temp 98.3 F 09/24/20 10:41 Pulse 64 09/24/20 10:41 Resp 18 09/24/20 10:41 BP 183/84 09/24/20 10:41 Pulse Ox 100 09/24/20 07:51 Intake & Output 09/23/20 09/24/20 09/24/20 18:59 06:59 18:59 Intake Total 875 Balance 875 Intake: Hemodialysis 875 Other: Voiding Method Urinal Urinal Incontinent Incontinent # Voids 0 # Bowel Movements 1 1 - Labs CBC & Chem 7: 09/23/20 06:43 09/24/20 07:01 Labs: Abnormal Lab Results - Last 24 Hours (Table) 09/23/20 09/23/20 09/24/20 Range/Units 16:52 20:56 07:01 Creatinine 6.16 H (0.66-1.25) mg/dL POC Glucose (mg/dL) 123 H 124 H (75-99) mg/dL 09/24/20 09/24/20 Range/Units 07:17 11:40 Creatinine (0.66-1.25) mg/dL POC Glucose (mg/dL) 154 H 108 H (75-99) mg/dL Microbiology - Last 24 Hours (Table) 09/20/20 11:26 Blood Culture Gram Stain - Final Blood Blood Culture - Final Methicillin resist S. aureus
[2020-09-24] MEDS: BENZOCAINE SPRAY 1 CAN MUCOUS MEM ONE ×2 (12:51→12:55)
[2020-09-24] MEDS ORDERED: fentaNYL (PF) 50 MCG/ML 2 ML AMP IVP ONE (12:57)
[2020-09-24] MEDS ORDERED: MIDAZOLAM 2 MG/2 ML VIAL IVP ONE (12:57)
[2020-09-24] MEDS ORDERED: IV FLUID CONTINUATION 1,000 ML IV ONE (13:16)
--- NOTE | 2020-09-24 13:41 | P.PN ---
Subjective Progress Note Date: 09/24/20 HISTORY OF PRESENT ILLNESS: Patient is a pleasant 60-year-old male with history of end-stage renal disease on hemodialysis, coronary artery disease status post PCI of the circumflex and LAD in September 2018, paroxysmal atrial fibrillation, diabetes mellitus, hypertension, dyslipidemia and MRSA bacteremia who presents secondary to fevers. Patient normally follows with Dr. Bowie. He was having altered mental status and therefore presented to Hospital and was found to be febrile with leukocytosis and blood cultures were 2 of 2 positive for MRSA bacteremia. He does have a history of prior bacteremia in April 2020 and was given prolonged antibiotic treatment. He denies any chest pain or pressure. He states that normally with his MIs he more so just isn't acting right. States he feels back to normal in terms of his confusion and the blood cultures have been clear with no growth to date to of the last 2. He does get headaches and currently has his face under a blanket. Denies any shortness breath. We were asked to evaluate for possible YAYO to rule out endocarditis. 2-D echo was performed 09/19/2020 which shows normal ejection fraction 55-60%, mild aortic stenosis, mild mitral regurgitation and no other significant valvular disease with RVSP of 57. 09/22 Patient seen and examined. Patient denies any chest pain or shortness breath. He states he does have some anxiety which she normally takes Ativan for. He did have dialysis yesterday. 3 L taken off. 09/23/2020 Patient examined at the bedside with Dr. Wills. Patient denies chest pain or pressure. He denies shortness of breath. Vital signs are stable. 09/24/2020 Patient examined at the bedside with Dr. Wills. Patient remains lethargic. He denies chest pain or pressure. He reports he is short of breath but states it is unchanged from yesterday. Patient underwent YAYO today with Dr. Bowie revealing vegetation on the posterior leaflet of the mitral valve with mitral regurgitation. He is being followed by infectious disease. PHYSICAL EXAM: VITAL SIGNS: Reviewed. GENERAL: Well-developed in no acute distress. NECK: Supple. No JVD or thyromegaly LUNGS: Respirations even and unlabored. Lungs diminished bilaterally. HEART: Regular rate and rhythm. S1 and S2 heard. EXTREMITIES: Normal range of motion. No clubbing or cyanosis. Peripheral pulses intact. Trace bilateral lower extremity edema ASSESSMENT: MRSA bacteremia Endocarditis, s/p YAYO 09/24/2020 Osteomyelitis of thoracic spine, possible lumbar spine and cervical spine abscess End-stage renal disease Coronary artery disease status post stenting 2019 Paroxysmal atrial fibrillation Hypertension Hyperlipidemia History of MRSA bacteremia Diabetes PLAN: Dr. Bowie recommends transferring patient to a tertiary care center. Notified Katelyn Wesley, medicine [employer], of cardiology recommendations Antibiotic management per ID We will sign off. Please reconsult if needed Nurse practitioner note has been reviewed by physician. Signing provider agrees with the documented findings, assessment, and plan of care. Objective - Vital Signs Vital signs: Vital Signs Temp 98.3 F 09/24/20 10:41 Pulse 62 09/24/20 13:07 Resp 16 09/24/20 13:07 BP 147/67 09/24/20 13:07 Pulse Ox 100 09/24/20 13:07 Intake & Output 09/23/20 09/24/20 09/24/20 18:59 06:59 18:59 Intake Total 950 Balance 950 Intake: IV 75 Hemodialysis 875 Other: Voiding Method Urinal Urinal Incontinent Incontinent # Voids 0 # Bowel Movements 1 1 - Labs CBC & Chem 7: 09/23/20 06:43 09/24/20 07:01 Labs: Abnormal Lab Results - Last 24 Hours (Table) 09/23/20 09/23/20 09/24/20 Range/Units 16:52 20:56 07:01 Creatinine 6.16 H (0.66-1.25) mg/dL POC Glucose (mg/dL) 123 H 124 H (75-99) mg/dL 09/24/20 09/24/20 Range/Units 07:17 11:40 Creatinine (0.66-1.25) mg/dL POC Glucose (mg/dL) 154 H 108 H (75-99) mg/dL Microbiology - Last 24 Hours (Table) 09/20/20 11:26 Blood Culture Gram Stain - Final Blood Blood Culture - Final Methicillin resist S. aureus
--- NOTE | 2020-09-24 15:49 | ECHOT ---
TRANSESOPHAGEAL ECHOCARDIOGRAM DATE OF SERVICE: September 24, 2020. PERFORMING PHYSICIAN: Andry Bowie MD. PROCEDURE PERFORMED: Transesophageal echocardiogram. INDICATION: Rule out endocarditis. COMPLICATION: None. LEVEL OF SEDATION: Moderate with sedation length of 15 minutes. PROCEDURE DESCRIPTION: After obtaining informed consent, the patient was brought to the transesophageal echocardiogram suite. Pulse oximetry and heart rate monitors were attached the patient. Subsequently, the transesophageal echocardiogram probe was advanced through the bite guard to the mid esophageal where a 2D echocardiogram images as well as color Doppler and pulse Doppler, and continuous-wave Doppler were obtained from multiple angles. Please note that the patient was sedated using 2 mg of Versed and 50 mcg of fentanyl on divided doses. FINDINGS: The left ventricle appeared to be within normal limits for dimension. The left ventricular systolic function appeared to be in the range of 45-50 percent. Right ventricle appeared to be dilated. The left atrium and right atrium appeared to be dilated as well. The left atrial appendage was not well visualized. The aortic valve appeared to be trileaflet valve and appeared to be thickened and calcified without stenosis or regurgitation. The mitral valve appeared to have evidence of infective endocarditis with evidence of vegetation was identified on the upstream side of the posterior mitral leaflet with motion. No abscess is seen. There is evidence of at least moderate mitral regurgitation was identified with posteriorly directed jet. There is moderate tricuspid regurgitation. No vegetation was seen on tricuspid valve. No evidence of pericardial effusion identified. CONCLUSION: 1. Vegetation was identified on the upstream side of the posterior mitral leaflet. There is evidence of at least moderate mitral regurgitation. 2. Aortic sclerosis without stenosis and without insufficiency. No vegetation were seen on the aortic valve. 3. There was moderate tricuspid regurgitation. No vegetation were seen on tricuspid valve. 4. The pulmonic valve was poorly visualized. 5. Mildly impaired LV function with EF around 45%. 6. Dilated right ventricle. 7. Moderate biatrial enlargement. 8. Hyperdynamic interatrial septum. 9. No evidence of pericardial effusion. MMODL / IJN: [id number] /
[2020-09-24] MEDS ORDERED: LIDOCAINE 1% INJ 10MG/ML (20 ML MDV) ONE (16:00)
[2020-09-24] MEDS ORDERED: GELATIN SPONGE,ABSORB (LARGE) 1 EACH SPONGE ONE (16:00)
[2020-09-24 17:00] LABS: Glucose,Whole Blood 101 mg/dL (75-99)
--- NOTE | 2020-09-24 18:09 | MR ---
EXAMINATION TYPE: MR cspine/tspine/lspine wo con DATE OF EXAM: 09/24/2020 COMPARISON: 2520 HISTORY: Osteomyelitis TECHNIQUE: Multiplanar, multisequence imaging of the thoracic and lumbar spine without contrast. FINDINGS: Exam limited by motion. Cervical vertebra have fairly normal alignment. There is no significant disc space narrowing. As best as one can tell the cervical spinal cord has normal signal pattern with no e august. Brainstem appears intact. There is no evidence of cervical paraspinal mass. There is some anter ior spurring at C4-5 and C5-6. There are small anterior disc herniations at C4-5 and C5-6. No gross a bnormalities seen of the facet joints. There is some posterior disc bulging at C5-C6 with some mild e ncroachment on the spinal canal. Canal measures 7 mm. The thoracic vertebra have normal alignment. There is no sign of thoracic spinal stenosis. Exam limit ed by motion.. The lumbar vertebra have normal alignment. Exam limited by motion. Disc spaces are fairly normal. The re is no compression fracture. I see no focal bone destruction. I see no evidence of any significant spinal stenosis. There is a small posterior disc bulge at L5-S1. There is no significant encroachment on the spinal canal. IMPRESSION: Within the limitations of the exam there is no evidence of any cervical thoracic or lumbar fracture. There is no evidence of spinal significant stenosis. There is no evidence of osteomyelitis. No advers e change compared to old exam.
[2020-09-24] MEDS: ASPIRIN 81 MG PO SCH (18:25)
[2020-09-24] MEDS: MULTIVITAMINS, THERA 1 EACH TAB PO SCH (18:27)
--- NOTE | 2020-09-24 19:49 | PN ---
PROGRESS NOTE DATE OF SERVICE: 09/24/2020 REASON FOR FOLLOWUP: MRSA bacteremia. INTERVAL HISTORY: Patient is currently afebrile. The patient is breathing comfortably. The patient is status post YAYO, did show evidence of mitral wall vegetation. The patient remains to be sleepy and lethargic and was unable to provide any history. No vomiting, diarrhea or any other changes reported by the nursing staff. PHYSICAL EXAMINATION: Blood pressure 147/67, pulse of 72, temperature 98.3. He is 100% on non-rebreather. General description is a middle-aged male lying in bed in no distress. Respiratory system: Unlabored breathing, decreased breath sounds. No wheeze. Heart S1, S2 regular rate and rhythm. Abdomen soft, no tenderness. Extremities: No edema of the feet. LABS: Creatinine 6.1. random is 25.6. Blood cultures from the September 20 positive. DIAGNOSTIC IMPRESSION AND PLAN: Patient with persistent MRSA bacteremia, concern for endocarditis and possible involvement of the thoracolumbar spine waiting for the MRI to be completed. Patient is covered with vancomycin. Blood cultures will be repeated to document clearance of bacteremia and continue supportive care. Prognosis remains to be guarded. MMODL / IJN: [id number] /
[2020-09-24 20:27] LABS: Glucose,Whole Blood 91 mg/dL (75-99)
[2020-09-24] MEDS: ATORVASTATIN 40 MG TAB PO SCH (21:25)
[2020-09-24] MEDS: INSULIN DETEMIR (LEVEMIR) 100 UNIT/ML SYR SQ SCH (22:34)
[2020-09-24] MEDS: MELATONIN 1 MG TAB PO SCH (22:34)
[2020-09-25] MEDS: hydrOXYzine HCL 25 MG TAB PO SCH ×4 (00:58→17:15)
[2020-09-25] MEDS: hydrALAZINE HCL 25 MG TAB PO PRN (02:01)
[2020-09-25] MEDS: BACLOFEN 10 MG TAB PO PRN (02:01)
[2020-09-25] MEDS: HYDROcodone/APAP 5-325MG 1 EACH TAB PO PRN ×2 (02:01→20:48)
[2020-09-25] MEDS: DEXTROSE 5%-0.9% NACL 1,000 ML IV SCH (04:06)
[2020-09-25 07:05] LABS: Glucose,Whole Blood 100 mg/dL (75-99)
[2020-09-25] MEDS: FERROUS SULFATE 325 MG TAB PO SCH ×2 (07:32→17:14)
[2020-09-25] MEDS: METOPROLOL TARTRATE 25 MG TAB PO SCH ×3 (07:32→17:14)
[2020-09-25] MEDS: PANTOPRAZOLE 40 MG TABLET PO SCH (07:32)
[2020-09-25] MEDS: AMIODARONE 200 MG TAB PO SCH (07:33)
[2020-09-25] MEDS: CALCIUM ACETATE 667 MG TAB PO SCH ×3 (07:33→17:14)
[2020-09-25] MEDS: FUROSEMIDE 80 MG TAB PO SCH ×2 (07:34→17:14)
[2020-09-25] MEDS: INSULIN ASPART (NovoLOG) 100 UNIT/ML VIAL SQ SCH ×4 (07:35→21:46)
[2020-09-25] MEDS: CHOLESTYRAMINE (WITH SUGAR) 4 GM PACKET PO SCH ×2 (07:39→17:14)
[2020-09-25] MEDS: metOLazone 5 MG TAB PO SCH (08:55)
[2020-09-25] MEDS: ONDANSETRON 4 MG/2 ML VIAL IVP PRN (09:56)
[2020-09-25] MEDS: MIDODRINE 5 MG TAB PO SCH (09:56)
--- NOTE | 2020-09-25 10:15 | P.PN ---
Subjective Patient is seen in follow-up for end-stage renal disease. He is maintained on hemodialysis on Wednesday schedule. On antibiotics for MRSA bacteremia. Mitral valve vegetation identified on YAYO. Tolerating dialysis well. Feels tired. No chest pain or shortness of breath. Vital signs are stable. General: The patient appeared well nourished and normally developed. HEENT: Head exam is unremarkable. Neck is without jugular venous distension. LUNGS: Breath sounds decreased. HEART: Rate and Rhythm are regular. ABDOMEN: Soft, no distention. EXTREMITITES: Trace edema. Objective - Vital Signs Vital signs: Vital Signs Temp 97.6 F 09/25/20 07:49 Pulse 71 09/25/20 07:49 Resp 18 09/25/20 08:56 BP 175/77 09/25/20 07:49 Pulse Ox 96 09/25/20 08:54 Intake & Output 09/24/20 09/25/20 09/25/20 18:59 06:59 18:59 Intake Total 950 360 200 Output Total 1000 Balance 950 -640 200 Weight 104.326 kg 110.5 kg Intake: IV 75 Oral 360 200 Hemodialysis 875 Output: Hemodialysis 1000 Other: Voiding Method Urinal Diaper Diaper Incontinent Incontinent Incontinent # Voids 0 0 # Bowel Movements 1 3 - Labs CBC & Chem 7: 09/23/20 06:43 09/24/20 07:01 Labs: Abnormal Lab Results - Last 24 Hours (Table) 09/24/20 09/24/20 09/25/20 Range/Units 11:40 16:58 07:04 POC Glucose (mg/dL) 108 H 101 H 100 H (75-99) mg/dL Assessment and Plan Plan: Assessment: 1. End-stage renal disease maintained on hemodialysis on Wednesday schedule via left upper extremity AV fistula. 2. MRSA bacteremia on antibiotics. Infectious disease following. Mitral valve vegetation identified on YAYO. No evidence of osteomyelitis noted on MRI of the spine. 3. Anemia of chronic kidney disease maintained on Aranesp. 4. Chronic kidney disease mineral bone disease maintained on PhosLo. 5. A. fib maintained on amiodarone, metoprolol and anticoagulation. 6. Diabetes mellitus. Plan: Currently seen while undergoing hemodialysis. However I will stop the treatment as he did not receive contrast with the MRI yesterday. Next treatment tomorrow per his outpatient schedule. Monitor vancomycin levels. Target level near 15. Dose to be adjusted for renal function.
[2020-09-25] MEDS: APIXABAN 2.5 MG TABLET PO SCH ×2 (10:39→17:14)
[2020-09-25 10:49] LABS: Glucose,Whole Blood 106 mg/dL (75-99)
--- NOTE | 2020-09-25 10:52 | P.PN ---
Subjective Progress Note Date: 09/25/20 This is a 60-year-old male patient of Dr. Mckeon currently residing at [facility] under the care of Dr. Christian with a previous medical history significant for hypertension and hypertensive cardiovascular disease, hyperlipidemia, diabetes mellitus type 2, paroxysmal atrial fibrillation, coronary artery dis ease status post left heart catheterization and PCI of the obtuse marginal branch #1 off the LCx, followed by a recent PCI and stenting of the LAD back in September 2018, end-stage renal disease on hemodialysis Wednesday and Wednesday via left arm fistula, blindness of the right eye as well as left eye legally blind. Patient was hospitalized in April 2020 at which time he was treated for sepsis and MRSA bacteremia of unclear etiology with metabolic encephalopathy vasovagal episode requiring brief CPR and patient was transferred to [facility]. Patient was treated for MRSA osteomyelitis of the lumbar spine. Patient was discharged to [facility] for subacute rehab and was transferred from there yesterday to [facility] emergency center. Patient apparently had emesis after hemodialysis treatment. He was complaining of nausea and easy had decreased oral intake. He is complaining of dizziness. Patient had a drop in his blood pressure and has been refusing all his medications. On examination, patient is complaining of low back pain and has refused MRI of the lumbar spine. Temperature max 100.2, heart rate in the 60s to 80s, blood pressure 106/78, pulse ox 96% on 3 L nasal cannula. WBC 15.8, hemoglobin 11.1, platelet count 146. Sodium 135, potassium 5.0, chloride 94, CO2 22, BUN 19 creatinine 6.03. Blood sugar 236. Lactic acid 1.6. Magnesium 2.3, total bilirubin 0.9, AST 72, ALT 61 alkaline phosphatase 325. LDH 651. C- reactive protein 1.7. Urinalysis cloudy, blood moderate, leukoesterase small, RBCs 9, bacteria rare. Coronavirus PCR not detected. Gallbladder ultrasound reveals correlate for underlying cirrhosis. Hypoechoic appearance may be seen with hepatitis. Mild perihepatic ascites. Status post cholecystectomy. No biliary ductal dilatation. Chest x-ray reveals cardiomegaly and mild pulmonary congestion. Pulmonary vascularity slightly increased compared to old exam. Echocardiogram reveals EF of 55-60% with moderate concentric left ventricular hypertrophy, mild aortic stenosis, mild mitral regurgitation, mild tricuspid re gurgitation, moderate to severe pulmonary hypertension. No mention of vegetation. Patient admitted to the [facility] floor and consults requested with infectious disease and nephrology. 09/21 patient assessed today denies any fever or chills, denies any shortness of breath or breathing difficulty vitals are evaluated nt is afebrile pulse 65 respiratory rate 18 blood pressure 135/81 and oxygen saturation 100% on 2 L. Infectious disease was consulted who recommended nuclear scan increased uptake is noted in the lungs consistent with diffuse nonspecific inflammation process but no suggestion of abscess. Cardiology was consulted for possible YAYO. Patient has persistent MRSA infection and had multiple admissions for it. He was transferred to [facility] who thought patient had MRSA osteomyelitis for which patient has completed treatment. Due to persistent infection, cardiology was consulted. We will discuss with infectious disease for further management 09/22 patient examined bedside. Patient appears significantly heartrate as patient has not slept during the night. Patient is extremely weak and unable to come out of the bed. Detailed discussion with infectious disease and other attendings were done. MRI of the lumbar spine is recommended by Dr. Ardon. Patient is reluctant and refusing to get an MRI. Since patient is drowsy will discuss with the patient again. Vitals were reviewedpatient is afebrile temp 99.4 pulse 65 blood pressure 112/69 and oxygen saturation 96% on 2 L . No recent labs. Stat CBC CMP ordered 09/23: Patient treated for persistent MRSA bacteremia and currently on IV vancomycin dosed by pharmacy. Patient is scheduled for MRI of the lumbar spine and YAYO. Patient has been afebrile, heart rate 63, blood pressure 161/91, pulse ox 99% on 3 L nasal cannula. Repeat blood work reveals WBC 9.4, hemoglobin 9.9, platelet count 131. Sodium 137, potassium 4.7, chloride 104, CO2 19, BUN 72 creatinine 5.68. Blood sugars are running between 97 and 161. Total bilirubin 0.5, AST 51, ALT 73, alkaline phosphates . Vancomycin level XXVIII. 09/24: Patient is undergoing hemodialysis this morning. YAYO has been postponed until today. Case was discussed with Dr. Presley and nephrology and plan is for thoracic MRI with contrast and MRI of the cervical spine and lumbar spine without contrast and last low dose is given for the thoracic and patient is able to tolerate. Patient has been afebrile, heart rate 64, blood pressure 183/84, pulse ox 100% On 3 L nasal cannula. Patient's mentation is not back to normal. Reports from [facility] reveal CAT scan of the spine: 1. Retropharyngeal fluids/phlegmon in the upper neck. Hypodensity seen extending into the right longus coli as well as fluid seen surrounding the C1-C2 articulation suggestive of abscesses. Bacterial versus tuberculosis etiology should be considered. There is thickened epidural soft tissue noted dorsal to the dens. 2. Thoracic spine showed erosive changes of the anterior margin of T8 as well as destruction of the T8-T9 anterior osteophyte concerning for osteomyelitis. 3. Lumbar spine revealed degenerative changes as above with compression of the exiting L5 nerve root on the left. There is demineralization seen involving the anterior superior aspect of L2 corresponding to fluid cortical irregularity on accompanying MRI. This is worrisome for additional area of osteomyelitis. No CT evidence of epidural abscess, acute fracture or s ubluxation. TTE was unremarkable and YAYO was not recommended. Left upper extremity CT with contrast did not show evidence of abscess or thrombus. 09/25: Patient underwent YAYO yesterday with Dr. Bowie the thumb vegetation on the posterior mitral leaflet. There is evidence of at least moderate mitral regurgitation. Aortic sclerosis without stenosis and without insufficiency. No vegetation on the aortic valve. Moderate tricuspid regurgitation. No vegetation on the tricuspid valve. EF 45%. MRI of the cervical spine, thorax is spine and lumbar spine was done with out contrast although it was ordered with contrast dated been coordinated with nephrology. The study revealed limitations of the exam with no evidence of cervical thoracic or lumbar fracture. There is no evidence of spinal stenosis. No evidence of osteomyelitis. No adverse change compared to old exam. Case has been discussed with Dr. Wills and with Dr. Ardon. At this point we will plan to add cardiothoracic surgery consult and Dr. Ardon will talk to pharmacy regarding antibiotics. Patient states that he hated undergoing the MRI and out that he will ever go under another one again. He has been afebrile, heart rate 71, blood pressure 175/77, pulse ox 96% on 4 L. Her blood glucose running between 91 and 108. Patient is undergoing dialysis morning which was ordered to be done after contrast from MRI and nephrology will cancel this and continue his normal schedule of Wednesday. Patient remains lethargic mental status is okay today, less confusion. Cardiothoracic consult will be obtained and further discussion with Dr. Reva Curry regarding antibiotics availability, tomorrow we will plan to contact patient's and updated her regarding plan and options. REVIEW OF SYSTEMS Constitutional: Noted fever, no chills, no night sweats. No weight change. Reported weakness, reported fatigue Reported lethargy. Reported daytime sleepiness. increased lethargy EENT: No headache. No blurred vision or double vision, no loss of vision. No loss of Hearing, no ringing in the ears, no dizziness. No nasal drainage or congestion. No epistaxis. No sore throat. Lungs: No shortness of breath, cough, no sputum production. No wheezing. Cardiovascular: No chest pain, no lower extremity edema. No palpitations. No paroxysmal nocturnal dyspnea. No orthopnea. No lightheadedness or dizziness. No syncopal episodes. Abdominal: No abdominal pain. Reported nausea and vomiting. No diarrhea. No constipation. No bloody or tarry stools. Reported loss of appetite. Genitourinary: No dysuria, increased frequency, urgency. No urinary retention. Patient makes a small amount of urine. Musculoskeletal: No myalgias. Noted muscle weakness, no gait dysfunction, no frequent falls. Reported back pain. No neck pain. Integumentary: No wounds, no lesions. No rash or pruritus. No unusual bruising. No change in hair or nails. Neurologic: No aphasia. No facial droop. Noted change in mentation-improved today. No head injury. No headache. No paralysis. No paresthesia. Psychiatric: No depression. No anxiety. No mood swings. Endocrine: Noted abnormal blood sugars. No weight change. PHYSICAL EXAMINATION Gen: This is a 60-year-old male patient resting in bed. He is currently receiving hemodialysis. He appears to be in no acute distress. HEENT: Head is atraumatic, normocephalic. Pupils equal, round. Sclerae is anicteric. NECK: Supple. No JVD. No lymphadenopathy. No thyromegaly. LUNGS: Clear to auscultation. No wheezes or rhonchi. No intercostal retractions. HEART: Regular rate and rhythm. 2/6 systolic murmur. ABDOMEN: Soft. Bowel sounds are present. No masses. No tenderness. EXTREMITIES: 2+ pedal edema. No calf tenderness. NEUROLOGICAL: Patient is lethargic, he wakens and answers questions. He is oriented 3. Cranial nerves 2 through 12 are grossly intact. ASSESSMENT AND PLAN 1. Sepsis and persistent MRSA bacteremia secondary to mitral valve vegetation, suspected osteomyelitis of the thoracic spine, possible lumbar spine and cervical spine abscess, not completely ruled out at this point following MRI. YAYO as above. Dr. Presley is following and plan for Ceftaroline and vancomycin if available through pharmacy. 2. Infectious metabolic encephalopathy. Continue as in #1. Hold gabapentin and continue treatment and #1. 3. Complaints of lumbar pain, nausea vomiting and dizziness. Continue Zofran 4 mg IV every 8 hours as needed. 4. Recent treatment for MRSA bacteremia and thoracic lumbar spine osteomyelitis, completed course of antibiotics. 5. End-stage renal disease on hemodialysis. Consult with nephrology appreciated. Continue PhosLo 667 mg 3 times daily, Aranesp 40 g subcu every 7 days, hemodialysis scheduled on Wednesday. 6. Degenerative disc disease and spinal stenosis. Hold gabapentin. Continue baclofen 5 mg every 8 hours as needed. 7. History of coronary artery disease with previous PTCA to LAD and circumflex. Continue aspirin 81 mg daily, atorvastatin 40 mg at bedtime, Lopressor 25 mg twice daily. 8. Paroxysmal atrial fibrillation. Continue eliquis 2.5 mg twice daily, Lopressor, amiodarone 200 mg daily 8. Ischemic cardiomyopathy. Continue Lopressor, Lasix 80 mg twice daily, metolazone 5 mg daily. 9. Diabetes mellitus type 2, insulin requiring. Continue Levemir 10 units at bedtime, NovoLog scale before meals and at bedtime, 10. Diabetic neuropathy. Hold gabapentin. 11. Hypertension. Continue hydralazine 25 mg 4 times daily. 12. Anemia of chronic disease. Continue ferrous sulfate 325 mg twice daily, Aranesp 40 g subcu every 7 days. 13. GI prophylaxis. Continue Protonix. 14. DVT prophylaxis. Eliquis DISCHARGE PLAN Return to [facility]. Impression and plan of care have been directed as dictated by the signing physician. Katelyn Wesley nurse practitioner acting as scribe for signing physician. Objective - Vital Signs Vital signs: Vital Signs Temp 97.6 F 09/25/20 07:49 Pulse 71 09/25/20 07:49 Resp 18 09/25/20 08:56 BP 175/77 09/25/20 07:49 Pulse Ox 96 09/25/20 08:54 Intake & Output 09/24/20 09/25/20 09/25/20 18:59 06:59 18:59 Intake Total 950 360 200 Output Total 1000 Balance 950 -640 200 Weight 104.326 kg 110.5 kg Intake: IV 75 Oral 360 200 Hemodialysis 875 Output: Hemodialysis 1000 Other: Voiding Method Urinal Diaper Diaper Incontinent Incontinent Incontinent # Voids 0 0 # Bowel Movements 1 3 - Labs CBC & Chem 7: 09/23/20 06:43 09/24/20 07:01 Labs: Abnormal Lab Results - Last 24 Hours (Table) 09/24/20 09/24/20 09/25/20 Range/Units 11:40 16:58 07:04 POC Glucose (mg/dL) 108 H 101 H 100 H (75-99) mg/dL
--- NOTE | 2020-09-25 11:31 | P.PN ---
Subjective Progress Note Date: 09/25/20 HISTORY OF PRESENT ILLNESS: Patient is a pleasant 60-year-old male with history of end-stage renal disease on hemodialysis, coronary artery disease status post PCI of the circumflex and LAD in September 2018, paroxysmal atrial fibrillation, diabetes mellitus, hypertension, dyslipidemia and MRSA bacteremia who presents secondary to fevers. Patient normally follows with Dr. Bowie. He was having altered mental status and therefore presented to Hospital and was found to be febrile with leukocytosis and blood cultures were 2 of 2 positive for MRSA bacteremia. He does have a history of prior bacteremia in April 2020 and was given prolonged antibiotic treatment. He denies any chest pain or pressure. He states that normally with his MIs he more so just isn't acting right. States he feels back to normal in terms of his confusion and the blood cultures have been clear with no growth to date to of the last 2. He does get headaches and currently has his face under a blanket. Denies any shortness breath. We were asked to evaluate for possible YAYO to rule out endocarditis. 2-D echo was performed 09/19/2020 which shows normal ejection fraction 55-60%, mild aortic stenosis, mild mitral regurgitation and no other significant valvular disease with RVSP of 57. 09/22 Patient seen and examined. Patient denies any chest pain or shortness breath. He states he does have some anxiety which she normally takes Ativan for. He did have dialysis yesterday. 3 L taken off. 09/23/2020 Patient examined at the bedside with Dr. Wills. Patient denies chest pain or pressure. He denies shortness of breath. Vital signs are stable. 09/24/2020 Patient examined at the bedside with Dr. Wills. Patient remains lethargic. He denies chest pain or pressure. He reports he is short of breath but states it is unchanged from yesterday. Patient underwent YAYO today with Dr. Bowie revealing vegetation on the posterior leaflet of the mitral valve with mitral regurgitation. He is being followed by infectious disease. 09/25/2020 Patient is s/p YAYO revealing vegetation on the posterior leaflet of the mitral valve. CTS has been consulted for further evaluation. Patient underwent MRI wit hout contrast yesterday revealing no evidence of cervical thoracic or lumbar fracture. No evidence of significant spinal stenosis. No evidence of osteomyelitis. No changes compared to old exam. Infectious disease is following. He is receiving antibiotics. PHYSICAL EXAM: VITAL SIGNS: Reviewed. GENERAL: Well-developed in no acute distress. NECK: Supple. No JVD or thyromegaly LUNGS: Respirations even and unlabored. Lungs diminished bilaterally. HEART: Regular rate and rhythm. S1 and S2 heard. EXTREMITIES: Normal range of motion. No clubbing or cyanosis. Peripheral p ulses intact. Trace bilateral lower extremity edema ASSESSMENT: MRSA bacteremia Endocarditis, s/p YAYO 09/24/2020 Osteomyelitis of thoracic spine, possible lumbar spine and cervical spine abscess (Per HF records) End-stage renal disease Coronary artery disease status post stenting 2019 Paroxysmal atrial fibrillation Hypertension Hyperlipidemia History of MRSA bacteremia Diabetes PLAN: Antibiotic management per ID CTS consulted for further evaluation Further recommendations pending patient course Nurse practitioner note has been reviewed by physician. Signing provider agrees with the documented findings, assessment, and plan of care. Objective - Vital Signs Vital signs: Vital Signs Temp 97.6 F 09/25/20 07:49 Pulse 71 09/25/20 07:49 Resp 18 09/25/20 08:56 BP 175/77 09/25/20 07:49 Pulse Ox 96 09/25/20 08:54 Intake & Output 09/24/20 09/25/20 09/25/20 18:59 06:59 18:59 Intake Total 950 360 200 Output Total 1000 500 Balance 950 -640 -300 Weight 104.326 kg 110.5 kg Intake: IV 75 Oral 360 200 Hemodialysis 875 Output: Hemodialysis 1000 500 Other: Voiding Method Urinal Diaper Diaper Incontinent Incontinent Incontinent # Voids 0 0 # Bowel Movements 1 3 - Labs CBC & Chem 7: 09/23/20 06:43 09/24/20 07:01 Labs: Abnormal Lab Results - Last 24 Hours (Table) 09/24/20 09/24/20 09/25/20 Range/Units 11:40 16:58 07:04 POC Glucose (mg/dL) 108 H 101 H 100 H (75-99) mg/dL 09/25/20 Range/Units 10:44 POC Glucose (mg/dL) 106 H (75-99) mg/dL
--- NOTE | 2020-09-25 11:52 | CDI ---
Documentation Clarification Form Date: 09/25/2020 11:29:42 AM From: Marlene Crawley RN CCDS Admit Date: 09/19/2020 05:54:00 AM Patient Name: Joel Gillette Visit Number: [id number] Discharge Date: ATTENTION: The Clinical Documentation Specialists (CDI) and [facility] Coding Staff appreciate your assistance in clarifying documentation. Please respond to the clarification below the line at the bottom and electronically sign. The CDI & [facility] Coding staff will review the response and follow-up if needed. Please note: Queries are made part of the Legal Health Record. If you have any questions, please contact the author of this message via ITS. Dr. Perry Christian Your patient has the documented diagnosis of unspecified CHF 09/19, H&P. Additional information regarding the [type, acuity] of CHF is requested. History/Risk Factors: 60-year-old male presents to the ED for nausea, vomiting, dizziness, a drop in blood pressure and refusing medication. Medical History: Chronic CHF, MRSA osteomyelitis of the spine, CAD, DM, Dialysis and HTN Clinical Indicators: VS/Pulse OX: 09/19 B/P 106/78, HR 87, Temp 102 F Oral, RR 18, SpO2 96% 3L nasal cannula. Echocardiogram Results:09/19 Moderate concentric left ventricular hypertrophy. Left ventricular systolic function is normal with, an EF between 55-60%. Mild mitral regurgitation, mild tricuspid regurgitation, moderate to severe pulmonary hypertension. Transesophageal Echocardiogram Results: 09/24 Vegetation was identified on the upstream of the posterior mitral leaflet. Moderate mitral regurgitation. Moderate tricuspid regurgitation. Mildly impaired LV function EF around 45%. Dilated right ventricle. Chest X Ray: 09/19 Cardiomegaly and mild pulmonary congestion. Treatment: 09/19 Lasix 80mg PO BID to current. 09/19 Lopressor 25mg PO x 1. Lopressor 25mg PO BID JLUIS to current. In your professional opinion, can you please clarify the [acuity and type] of CHF if known? [xx ] Chronic Diastolic Heart Failure (preserved EF) [ ] Other, please specify [ ] Unable to determine (Template Last Revised: March 2020) MTDD
[2020-09-25 11:57] LABS: Glucose,Whole Blood 104 mg/dL (75-99)
--- NOTE | 2020-09-25 16:01 | P.GSCN ---
History of Present Illness Consult date: 09/25/20 Reason for Consult: Vegetation on the posterior leaflet of the mitral valve Requesting physician: Katelyn Wesley History of present illness: This is a 60-year-old gentleman who follows on an outpatient basis with Dr. Tori garcia. He has a previous medical history of multiple complex issues including but not limited to end-stage renal disease on hemodialysis, coronary artery disease status post PCI, paroxysmal atrial fibrillation on Eliquis for anticoagulation, diabetes, hypertension, hyperlipidemia, and several admissions with MRSA bacteremia. He presented this time to [facility] emergency room on September 19 from [facility] with nausea, vomiting, acute mental status change, and temperature of 102F. Blood cultures were positive for MRSA. Consultation was placed to infectious disease and cardiology. Transthoracic echocardiogram was completed demonstrating mild aortic stenosis, mild mitral reg urgitation, mild tricuspid regurgitation, moderate to severe pulmonary hypertension and normal left ventricular systolic function with EF 55-60%. Due to his continued bacteremia transesophageal echocardiogram was completed yesterday which demonstrated vegetation on the posterior mitral leaflet. Due to these findings consultation was placed to cardiothoracic surgery for recommendations. Review of Systems Review of systems was completed mostly from the chart as the patient could not stay awake long enough to answer any questions except to say that he is not in pain, his dialysis is Wednesday, , Wednesday, and that he is at [facility] for rehab. He would not answer any other questions. - Constitutional Reports fatigue, Reports lethargy, Reports malaise, Reports weakness Past Medical History Past Medical History: Atrial Fibrillation, Coronary Artery Disease (CAD), Heart Failure, Diabetes Mellitus, Dialysis, Eye Disorder, GERD/Reflux, Hearing Disorder / Deafness, Hyperlipidemia, Hypertension, Myocardial Infarction (TN), Renal Disease, Syncope Additional Past Medical History / Comment(s): IDDM type II, neuropathy bilateral hands/feet, ESRD with hemodialysis on M/W/, chronic anemia, LVH, Afib with RVR, MIs, chronic CHF, R eye blindness, L eye legally blind, RLS, pt unsure if he has gout, vertigo at times, balance issues at times, stomach ulcer at age 17yrs, si nus problems, very [place] R ear. Last Myocardial Infarction Date:: 08/09/18 History of Any Multi-Drug Resistant Organisms: MRSA Year Discovered:: 09/20/20 MDRO Source:: Blood Past Surgical History: Heart Catheterization, Heart Catheterization With Stent Additional Past Surgical History / Comment(s): TTT, PD catheter placement/since removed, 2017 L arm fistula, fistula gram with balloon for stenosis, L eye vitrectomy, thyroid needle aspiration-negative, L leg cyst, colonoscopy with benign polypectomy. port placed in chest Right side. Past Anesthesia/Blood Transfusion Reactions: Postoperative Nausea & Vomiting (PONV) Date of Last Stent Placement:: 03-03-18 Past Psychological History: Anxiety, Depression Additional Psychological History / Comment(s): Pt resides with his spouse, AND SON. He is legally blind L eye and blind in R eye. He is very [place] in R ear. He has a cane and walker which he uses prn. His spouse and son drive. Pt uses glasses and a magnifier to read. He has depression which he states is constantly present but not increased. He denies thoughts/plans of suicide. Smoking Status: Never smoker Past Alcohol Use History: None Reported Additional Past Alcohol Use History / Comment(s): Pt started smoking in 1972 and quit in 1995. Past Drug Use History: None Reported - Past Family History Father Family Medical History: Cancer, Coronary Artery Disease (CAD), Hyperlipidemia Additional Family Medical History / Comment(s): Lung/BRAIN CANCER Mother Family Medical History: Diabetes Mellitus, Deep Vein Thrombosis (DVT), Osteoarthritis (OA) Additional Family Medical History / Comment(s): DJD Sister(s) Family Medical History: Diabetes Mellitus Additional Family Medical History / Comment(s): Patient has one sister with diabetes mellitus type 2, SLE, MS. Brother(s) Family Medical History: Diabetes Mellitus Additional Family Medical History / Comment(s): Patient has 4 kids no major medical problems. Daughter(s) Family Medical History: No Reported History Additional Family Medical History / Comment(s): Patient has 2 daughters no major medical problems. Son(s) Family Medical History: No Reported History Additional Family Medical History / Comment(s): Patient has 2 sons no major medical problems. Medications and Allergies Home Medications Medication Instructions Recorded Confirmed Type Calcium Acetate [PhosLo] 667 mg PO TID@0800,1200,1700 08/05/18 09/19/20 History Furosemide [Lasix] 80 mg PO BID@0600,1800 04/13/19 09/19/20 History hydrOXYzine pamoate [Vistaril] 50 mg PO QID@00,06,12,18 02/06/20 09/19/20 History Pantoprazole [Protonix] 40 mg PO DAILY@0600 02/17/20 09/19/20 History Acetaminophen Tab [Tylenol] 650 mg PO Q6H PRN 08/12/20 09/19/20 History Aspirin EC [Ecotrin Low Dose] 81 mg PO DAILY@1700 08/12/20 09/19/20 History Epoetin Luis [Epogen] 4,000 unit SQ TUTHSA 08/12/20 09/19/20 History Ferrous Sulfate [Iron (65 MG 325 mg PO BID@0600,1700 08/12/20 09/19/20 History Elemental)] INSULIN ASPART (NovoLOG) [NovoLOG See Protocol SQ ACHS 08/12/20 09/19/20 History (formulary)] Insulin Detemir (Levemir) [Levemir] 10 unit SQ HS@2100 08/12/20 09/19/20 History Melatonin 1 mg PO HS 08/12/20 09/19/20 History Midodrine HCl [ProAmatine] 10 mg PO DAILY@0800 08/12/20 09/19/20 History Multivitamins, Thera [Multivitamin 1 tab PO DAILY@1700 08/12/20 09/19/20 History (formulary)] Na Phos,M-B/Na Phos,Di-Ba [Fleet 133 ml RECTAL DAILY PRN 08/12/20 09/19/20 History Adult] Sennosides/Docusate Sodium 1 tab PO Q12H PRN 08/12/20 09/19/20 History [Senna-S 8.6-50 mg Tablet] bisacodyL [Dulcolax] 10 mg RECTAL DAILY PRN 08/12/20 09/19/20 History Baclofen [Lioresal] 5 mg PO Q8H PRN #0 08/19/20 09/19/20 Rx Gabapentin 300 mg PO HS@2100 #3 cap 08/19/20 09/19/20 Rx HYDROcodone/APAP 5-325MG [[place] 1 tab PO Q6HR PRN #12 tab 08/19/20 09/19/20 Rx 5-325] Lactulose [Cephulac] 15 gm PO TID PRN ml 08/19/20 09/19/20 Rx Sodium Chloride 0.65% Nasal [Deep 2 spray NASAL QID PRN spray 08/19/20 09/19/20 Rx Sea (Saline)] Amiodarone [Cordarone] 200 mg PO DAILY@0800 09/19/20 09/19/20 History Apixaban [Eliquis] 2.5 mg PO BID@0800,1700 09/19/20 09/19/20 History Atorvastatin [Lipitor] 40 mg PO HS 09/19/20 09/19/20 History Cholestyramine/Aspartame 4 gm PO BID@0800,1700 09/19/20 09/19/20 History [Cholestyramine Light Packet] Liquacel 30 ml PO BID@0800,1700 09/19/20 09/19/20 History Metoprolol Tartrate [Lopressor] 25 mg PO BID@0800,1700 09/19/20 09/19/20 History Ondansetron HCl [Zofran] 4 mg PO Q6H PRN 09/19/20 09/19/20 History hydrALAZINE HCL [Apresoline] 75 mg PO TID@0800,1200,1700 09/19/20 09/19/20 History metOLazone [Zaroxolyn] 5 mg PO DAILY@0600 09/19/20 09/19/20 History Allergies Allergy/AdvReac Type Severity Reaction Status Date / Time codeine Allergy Unknown Verified 09/19/20 06:44 Penicillins Allergy Anaphylaxis Verified 09/19/20 06:44 sulfadiazine Allergy Unknown Verified 09/19/20 06:44 bumetanide [From Bumex] AdvReac Hallucinati Verified 09/19/20 06:44 ons morphine AdvReac Confusion Verified 09/19/20 06:44 rivaroxaban [From Xarelto] AdvReac Bloody Nose Verified 09/19/20 06:44 spironolactone AdvReac Hallucinati Verified 09/19/20 06:44 ons All antibiotics except Keflex Allergy Unknown Uncoded 09/19/20 06:44 Childhood Surgical - Exam Vital Signs Temp Pulse Resp BP Pulse Ox 102 F H 87 18 106/78 96 09/19/20 04:07 09/19/20 04:07 09/19/20 04:07 09/19/20 04:07 09/19/20 04:07 CONSTITUTIONAL: Very drowsy, unable to stay awak, well-developed, well-nouris hed, no acute distress RESPIRATORY: Lungs sounds diminished bilaterally. Respirations even, nonlab ored. Currently on 4LPM NC with oxygen saturation 100%. CARDIOVASCULAR: S1, S2 present. Irregular rate and rhythm, afib on telemetry. Palpable peripheral pulses bilaterally. Bilateral lower extremity edema present. No calf pain or tenderness noted. GASTROINTESTINAL: Abdomen soft, nontender, nondistended without masses or organomegaly noted. There is no rebound or guarding present. Active bowel sounds present 4 quadrants. GENITOURINARY: Deferred INTEGUMENTARY: Skin is warm and dry. AV fistula present NEUROLOGIC: Cranial nerves II through XII intact MUSKULOSKELETAL: Able to move all extremities PSYCHIATRIC: Drowsy, unable/unwilling to answer questions Results - Labs 09/23/20 06:43 09/24/20 07:01 Abnormal Lab Results - Last 24 Hours (Table) 09/24/20 09/25/20 09/25/20 Range/Units 16:58 07:04 10:44 POC Glucose (mg/dL) 101 H 100 H 106 H (75-99) mg/dL 09/25/20 Range/Units 11:56 POC Glucose (mg/dL) 104 H (75-99) mg/dL - Imaging Additional studies: Echo reviewed with Dr. Doran Assessment and Plan Assessment: 1. 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 MRSA bacteremia 3. History of osteomyelitis of the thoracic spine per [facility] records, none seen on current MRI per report 4. End-stage renal disease on hemodialysis 5. Coronary artery disease status post PCI 6. Paroxysmal atrial fibrillation on Eliquis for anticoagulation 7. Diabetes 8. Hypertension 9. Hyperlipidemia 9. Several admissions with MRSA bacteremia Plan: The patient was seen and examined at the bedside. Chart/diagnostics were reviewed. The patient was seen by Dr. Doran. The patient will likely need surgery but there is no urgency. Unable to find any documentation to determine if AV fistula contains any graft material. If there is foreign material present we would like it removed prior to any cardiothoracic surgical intervention. We would like bacteremia to be cleared up prior to surgery. Continue antibiotics per infectious disease recommendations. Would need to hold anticoagulation for 3-5 days prior to any surgical intervention. Medical management other multiple comorbidities per primary care service. More recommendations to follow. Thank you for this consult. We will continue to follow along with you Time with Patient: Greater than 30
[2020-09-25 16:56] LABS: Glucose,Whole Blood 123 mg/dL (75-99)
[2020-09-25] MEDS: ASPIRIN 81 MG PO SCH (17:14)
[2020-09-25] MEDS: MULTIVITAMINS, THERA 1 EACH TAB PO SCH (17:14)
[2020-09-25] MEDS ORDERED: VANCOMYCIN 1,750 MG in SODIUM CHLORIDE 0.9% 500 ML 500 ML IVPB ONE (18:00)
[2020-09-25 20:41] LABS: Glucose,Whole Blood 125 mg/dL (75-99)
[2020-09-25] MEDS: INSULIN DETEMIR (LEVEMIR) 100 UNIT/ML SYR SQ SCH (20:48)
[2020-09-25] MEDS: ATORVASTATIN 40 MG TAB PO SCH (20:48)
[2020-09-25 21:26] LABS: Glucose,Whole Blood 118 mg/dL (75-99)
[2020-09-25] MEDS: MELATONIN 1 MG TAB PO SCH (21:46)
--- NOTE | 2020-09-25 23:10 | PN ---
PROGRESS NOTE DATE OF SERVICE: 09/25/2020 REASON FOR FOLLOWUP: MRSA bacteremia and question of cervical abscess. INTERVAL HISTORY: Patient is afebrile. The patient remains to be slightly lethargic today. The patient is hemodynamically stable. Still has episodes of vomiting. No diarrhea has been reported. PHYSICAL EXAMINATION: Blood pressure 152/100 with a pulse of 110. Temperature 98.2. He is 100% on 4 L nasal cannula. General description is a middle-aged male lying in bed in no distress. Respiratory system: Unlabored breathing, clear to auscultation anteriorly. Heart S1, S2. Regular rate and rhythm. Abdomen soft, no tenderness. Extremities: No edema of the feet. LABS: Blood culture from September 24, so far negative. DIAGNOSTIC IMPRESSION AND PLAN: Patient with MRSA bacteremia with evidence of endocarditis and also abscess at the C2, C3 level as the MRIs were reviewed with the radiologist. The patient may benefit from neurosurgery evaluation for which the patient may need to be transferred to [facility] where the patient was previously treated. This has been discussed in detail with the admitting physician. Overall prognosis remains to be guarded. MMODL / IJN: [id number] /
[2020-09-26] MEDS: hydrOXYzine HCL 25 MG TAB PO SCH ×4 (00:18→16:43)
[2020-09-26 00:44] LABS: Glucose,Whole Blood 125 mg/dL (75-99)
[2020-09-26] MEDS: DEXTROSE 5%-0.9% NACL 1,000 ML IV SCH ×2 (03:29→21:54)
[2020-09-26] MEDS: FUROSEMIDE 80 MG TAB PO SCH ×2 (05:46→16:42)
[2020-09-26] MEDS: FERROUS SULFATE 325 MG TAB PO SCH ×2 (05:46→16:38)
[2020-09-26] MEDS: metOLazone 5 MG TAB PO SCH (05:46)
[2020-09-26 07:04] LABS: Glucose,Whole Blood 64 mg/dL (75-99)
[2020-09-26 07:13] LABS: Glucose,Whole Blood 64 mg/dL (75-99)
[2020-09-26 07:39] LABS: Glucose,Whole Blood 71 mg/dL (75-99)
[2020-09-26] MEDS: MIDODRINE 5 MG TAB PO SCH (08:03)
[2020-09-26] MEDS: INSULIN ASPART (NovoLOG) 100 UNIT/ML VIAL SQ SCH ×4 (08:03→20:09)
[2020-09-26] MEDS: CHOLESTYRAMINE (WITH SUGAR) 4 GM PACKET PO SCH ×2 (08:10→16:38)
[2020-09-26] MEDS: APIXABAN 2.5 MG TABLET PO SCH ×3 (08:10→16:38)
[2020-09-26] MEDS: CALCIUM ACETATE 667 MG TAB PO SCH ×3 (08:10→16:37)
[2020-09-26] MEDS: PANTOPRAZOLE 40 MG TABLET PO SCH (08:11)
[2020-09-26] MEDS: DARBEPOETIN ALFA 40 MCG/0.4 ML SYRINGE SQ SCH (08:11)
[2020-09-26] MEDS ORDERED: RX INFO: IV CONTRAST WAS GIVEN 1 EACH MISC MISCELLANE PRN (09:44)
--- NOTE | 2020-09-26 10:12 | P.PN ---
Subjective Patient is seen in follow-up for end-stage renal disease. He is maintained on hemodialysis on Wednesday schedule. On antibiotics for MRSA bacteremia. Mitral valve vegetation identified on YAYO. Tolerating dialysis well. Feels tired. No chest pain or shortness of breath. Vital signs are stable. General: The patient appeared well nourished and normally developed. HEENT: Head exam is unremarkable. Neck is without jugular venous distension. LUNGS: Breath sounds decreased. HEART: Rate and Rhythm are regular. ABDOMEN: Soft, no distention. EXTREMITITES: 1+ edema. Objective - Vital Signs Vital signs: Vital Signs Temp 97.7 F 09/26/20 06:50 Pulse 104 H 09/26/20 06:50 Resp 17 09/26/20 06:50 BP 143/86 09/26/20 06:50 Pulse Ox 99 09/26/20 08:35 Intake & Output 09/25/20 09/26/20 09/26/20 18:59 06:59 18:59 Intake Total 500 Output Total 500 Balance 0 Intake: Oral 500 Output: Hemodialysis 500 Other: Voiding Method Diaper Diaper Incontinent Incontinent # Voids 0 # Bowel Movements 1 - Labs CBC & Chem 7: 09/23/20 06:43 09/24/20 07:01 Labs: Abnormal Lab Results - Last 24 Hours (Table) 09/25/20 09/25/20 09/25/20 Range/Units 10:44 11:56 16:54 POC Glucose (mg/dL) 106 H 104 H 123 H (75-99) mg/dL 09/25/20 09/25/20 09/26/20 Range/Units 20:39 21:21 00:42 POC Glucose (mg/dL) 125 H 118 H 125 H (75-99) mg/dL 09/26/20 09/26/20 09/26/20 Range/Units 06:59 07:12 07:38 POC Glucose (mg/dL) 64 L 64 L 71 L (75-99) mg/dL Microbiology - Last 24 Hours (Table) 09/25/20 06:12 Blood Culture - Preliminary Blood No Growth after 24 hours 09/24/20 17:34 Blood Culture - Preliminary Blood No Growth after 24 hours Assessment and Plan Plan: Assessment: 1. End-stage renal disease maintained on hemodialysis on Wednesday schedule via left upper extremity AV fistula. 2. MRSA bacteremia on antibiotics. Infectious disease following. Mitral valve vegetation identified on YAYO - CTS following. Also concerned of spinal abscess. 3. Anemia of chronic kidney disease maintained on Aranesp. 4. Chronic kidney disease mineral bone disease maintained on PhosLo. 5. A. fib maintained on amiodarone, metoprolol and anticoagulation. 6. Diabetes mellitus. Plan: Currently seen while undergoing hemodialysis. Next treatment on Wednesday. Okay to proceed with CT of the brain with IV contrast to rule out abscess. Discussed with primary team.
[2020-09-26 11:30] LABS: Glucose,Whole Blood 109 mg/dL (75-99)
--- NOTE | 2020-09-26 13:06 | P.PN ---
Subjective This is a pleasant 60-year-old male past medical history significant for end-stage renal disease on hemodialysis, coronary artery disease s/p PCI to circumflex and LAD 09/2018, paroxysmal atrial fibrillation, diabetes mellitus, hypertension, dyslipidemia and MRSA bacteremia. He follows in the office with Dr. Bowie. He has just finished this mornings dialysis and is quite tired. He does open his eyes and answer questions, however falls asleep quickly. He denies chest pain, worsening shortness of breath, dizziness or palpitations. Blood pressure 156/89 heart rate 98 afebrile and maintaining oxygen saturation on room air. He is currently awaiting bed placement at [facility]. He was seen yesterday by CT surgery and they do recommend proceeding with surgery on the valve however not emergently and only after bacteremia has cleared. GENERAL: Somnolent. NECK: Supple without JVD or thyromegaly. LUNGS: Breath sounds clear to auscultation bilaterally. Respiration equal and unlabored. No wheezes, rales or rhonchi. Diminished bilaterally. HEART: Irregular rate and rhythm with systolic ejection murmur at the base, no rubs or gallops. S1 and S2 heard. EXTREMITIES: 2+ bilateral lower extremity pitting edema. No clubbing or cyanosis. Peripheral pulses intact. ASSESSMENT Endocarditis, vegetation on the posterior leaflet of the mitral valve MRSA bacteremia Osteomyeleitis of the thoracic spine End stage renal disease on HD Paroxysmal atrial fibrillation, currently in SR with PAC's Coronary artery disease Hypertension Dyslipidemia Diabetes mellitus Aortic stenosis Pulmonary hypertension PLAN Continue current medical regimen. Antibiotics per Infectious Disease. CT surgery following. Pending transfer to tertiary care center. Nurse Practitioner note has been reviewed, I agree with a documented findings and plan of care. Patient was seen and examined. Objective - Vital Signs Vital signs: Vital Signs Temp 98.8 F 09/26/20 11:16 Pulse 98 09/26/20 11:16 Resp 17 09/26/20 06:50 BP 156/89 09/26/20 11:16 Pulse Ox 99 09/26/20 08:35 Intake & Output 09/25/20 09/26/20 09/26/20 18:59 06:59 18:59 Intake Total 500 Output Total 500 3800 Balance 0 -3800 Intake: Oral 500 Output: Hemodialysis 500 3800 Other: Voiding Method Diaper Diaper Incontinent Incontinent # Voids 0 # Bowel Movements 1 - Labs CBC & Chem 7: 09/23/20 06:43 09/24/20 07:01 Labs: Abnormal Lab Results - Last 24 Hours (Table) 09/25/20 09/25/20 09/25/20 Range/Units 16:54 20:39 21:21 POC Glucose (mg/dL) 123 H 125 H 118 H (75-99) mg/dL 09/26/20 09/26/20 09/26/20 Range/Units 00:42 06:59 07:12 POC Glucose (mg/dL) 125 H 64 L 64 L (75-99) mg/dL 09/26/20 09/26/20 Range/Units 07:38 11:28 POC Glucose (mg/dL) 71 L 109 H (75-99) mg/dL Microbiology - Last 24 Hours (Table) 09/25/20 06:12 Blood Culture - Preliminary Blood No Growth after 24 hours 09/24/20 17:34 Blood Culture - Preliminary Blood No Growth after 24 hours
--- NOTE | 2020-09-26 13:23 | PN ---
PROGRESS NOTE DATE OF SERVICE: 09/26/2020 REASON FOR FOLLOWUP: MRSA bacteremia concerning for cervical paraspinal abscess and endocarditis. INTERVAL HISTORY: Patient is afebrile. The patient is slightly sleepy, lethargic. The patient is hemodynamically stable. No diarrhea or other changes reported by the nursing staff. PHYSICAL EXAMINATION: Blood pressure 156/89, pulse of 90, temperature 98.8. He is 99% on 2 L nasal cannula. General description is a middle-aged male lying in bed in no distress. Respiratory system: Unlabored breathing. Clear to auscultation anteriorly. Heart S1, S2. Regular rate and rhythm. Abdomen soft. No tenderness. LABS: Blood culture repeat on September 24 and September 25 so far negative. DIAGNOSTIC IMPRESSION AND PLAN: Patient with MRSA bacteremia concerning for endocarditis as well as cervical paraspinal abscess and need for neurosurgery evaluation. Also discussed with the admitting physician yesterday and possible transfer to [facility]. MMODL / IJN: [id number] /
[2020-09-26] MEDS: AMIODARONE 200 MG TAB PO SCH (13:40)
[2020-09-26] MEDS: METOPROLOL TARTRATE 25 MG TAB PO SCH ×2 (13:40→16:42)
--- NOTE | 2020-09-26 13:40 | P.TRANS ---
Providers Date of admission: 09/19/20 05:54 Expected date of discharge: 09/27/20 Attending physician: Perry Christian Consults: 09/19/20 05:53 Consult Physician Routine Consulting Provider: Janine Nguyen Consult Reason/Comments: renalFail Do you want consulting provider notified?: Yes 09/19/20 09:20 Consult Physician Routine Consulting Provider: Tio Presley Consult Reason/Comments: sepsis Do you want consulting provider notified?: Yes 09/25/20 09:53 Consult Physician Routine Consulting Provider: Andry Bowie Consult Reason/Comments: YAYO Do you want consulting provider notified?: Already Contacted 09/25/20 10:38 Consult Physician Routine Consulting Provider: Naima Pritchard Consult Reason/Comments: vegetation Do you want consulting provider notified?: Yes 09/26/20 12:26 Consult Physician Routine Consulting Provider: Joseph Santizo Consult Reason/Comments: determine if AV fistula contains graft material Do you want consulting provider notified?: Already Contacted Primary care physician: Ten Mckeon [facility] Course: This is a 60-year-old male patient of Dr. Mckeon currently residing at [facility] under the care of Dr. 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 Patient was hospitalized in April 2020 at which time he was treated for sepsis and MRSA bacteremia of unclear etiology with metabolic encephalopathy vasovagal episode requiring brief CPR and patient was transferred to [facility]. Patient was treated for MRSA osteomyelitis of the lumbar spine. Patient was discharged to [facility] for subacute rehab and was transferred from there yesterday to [facility] emergency center. Patient apparently had emesis after hemodialysis treatment. He was complaining of na usea and easy had decreased oral intake. He is complaining of dizziness. Patient had a drop in his blood pressure and has been refusing all his medications. On examination, patient is complaining of low back pain and has refused MRI of the lumbar spine. Temperature max 100.2, heart rate in the 60s to 80s, blood pressure 106/78, pulse ox 96% on 3 L nasal cannula. WBC 15.8, hemoglobin 11.1, platelet count 146. Sodium 135, potassium 5.0, chloride 94, CO2 22, BUN 19 creatinine 6.03. Blood sugar 236. Lactic acid 1.6. Magnesium 2.3, total bilirubin 0.9, AST 72, ALT 61 alkaline phosphatase 325. LDH 651. C- reactive protein 1.7. Urinalysis cloudy, blood moderate, leukoesterase small, RBCs 9, bacteria rare. Coronavirus PCR not detected. Gallbladder ultrasound reveals correlate for underlying cirrhosis. Hypoechoic appearance may be seen with hepatitis. Mild perihepatic ascites. Status post cholecystectomy. No biliary ductal dilatation. Chest x-ray reveals cardiomegaly and mild pulmonary congestion. Pulmonary vascularity slightly increased compared to old exam. Echocardiogram reveals EF of 55-60% with moderate concentric left ventricular hypertrophy, mild aortic stenosis, mild mitral regurgitation, mild tricuspid regurgitation, moderate to severe pulmonary hypertension. No mention of vegetation. [facility] and consults requested with infectious disease and nephrology. 09/21 patient assessed today denies any fever or chills, denies any shortness of breath or breathing difficulty vitals are evaluated nt is afebrile pulse 65 respiratory rate 18 blood pressure 135/81 and oxygen saturation 100% on 2 L. Infectious disease was consulted who recommended nuclear scan increased uptake is noted in the lungs consistent with diffuse nonspecific inflammation process but no suggestion of abscess. Cardiology was consulted for possible YAYO. Patient has persistent MRSA infection and had multiple admissions for it. He was transferred to [facility] who thought patient had MRSA osteomyelitis for which patient has completed treatment. Due to persistent infection, cardiology was consulted. We will discuss with infectious disease for further management 09/22 patient examined bedside. Patient appears significantly heartrate as patient has not slept during the night. Patient is extremely weak and unable to come out of the bed. Detailed discussion with infectious disease and other attendings were done. MRI of the lumbar spine is recommended by Dr. Ardon. Patient is reluctant and refusing to get an MRI. Since patient is drowsy will discuss with the patient again. Vitals were reviewedpatient is afebrile temp 99.4 pulse 65 blood pressure 112/69 and oxygen saturation 96% on 2 L . No recent labs. Stat CBC CMP ordered 09/23: Patient treated for persistent MRSA bacteremia and currently on IV vancomycin dosed by pharmacy. Patient is scheduled for MRI of the lumbar spine and YAYO. Patient has been afebrile, heart rate 63, blood pressure 161/91, pulse ox 99% on 3 L nasal cannula. Repeat blood work reveals WBC 9.4, hemoglobin 9.9, platelet count 131. Sodium 137, potassium 4.7, chloride 104, CO2 19, BUN 72 creatinine 5.68. Blood sugars are running between 97 and 161. Total bilirubin 0.5, AST 51, ALT 73, alkaline phosphates . Vancomycin level XXVIII. 09/24: Patient is undergoing hemodialysis this morning. YAYO has been postponed until today. Case was discussed with Dr. Presley and nephrology and plan is for thoracic MRI with contrast and MRI of the cervical spine and lumbar spine without contrast and last low dose is given for the thoracic and patient is able to tolerate. Patient has been afebrile, heart rate 64, blood pressure 183/84, pulse ox 100% On 3 L nasal cannula. Patient's mentation is not back to normal. Reports from [facility] reveal CAT scan of the spine: 1. Retropharyngeal fluids/phlegmon in the upper neck. Hypodensity seen extending into the right longus coli as well as fluid seen surrounding the C1-C2 articulation suggestive of abscesses. Bacterial versus tuberculosis etiology should be considered. There is thickened epidural soft tissue noted dorsal to the dens. 2. Thoracic spine showed erosive changes of the anterior margin of T8 as well as destruction of the T8-T9 anterior osteophyte concerning for osteomyelitis. 3. Lumbar spine revealed degenerative changes as above with compression of the exiting L5 nerve root on the left. There is demineralization seen involving the anterior superior aspect of L2 corresponding to fluid cortical irregularity on accompanying MRI. This is worrisome for additional area of osteomyelitis. No CT evidence of epidural abscess, acute fracture or subluxation. TTE was unremarkable and YAYO was not recommended. Left upper extremity CT with contrast did not show evidence of abscess or thrombus. 09/25: Patient underwent YAYO yesterday with Dr. Bowie the thumb vegetation on the posterior mitral leaflet. There is evidence of at least moderate mitral regurgitation. Aortic sclerosis without stenosis and without insufficiency. No vegetation on the aortic valve. Moderate tricuspid regurgitation. No ve getation on the tricuspid valve. EF 45%. MRI of the cervical spine, thorax is spine and lumbar spine was done with out contrast although it was ordered with contrast dated been coordinated with nephrology. The study revealed limitations of the exam with no evidence of cervical thoracic or lumbar fracture. There is no evidence of spinal stenosis. No evidence of osteomyelitis. No adverse willoughby e compared to old exam. Case has been discussed with Dr. Wills and with Dr. Ardon. At this point we will plan to add cardiothoracic surgery consult and Dr. Ardon will talk to pharmacy regarding antibiotics. Patient states that he hated undergoing the MRI and out that he will ever go under another one again. He has been afebrile, heart rate 71, blood pressure 175/77, pulse ox 96% on 4 L. Her blood glucose running between 91 and 108. Patient is undergoing dialysis morning which was ordered to be done after contrast from MRI and nephrology will cancel this and continue his normal schedule of Wednesday. Patient remains lethargic mental status is okay today, less confusion. Cardiothoracic consult will be obtained and further discussion with Dr. Ardon Antoinette regarding antibiotics availability, tomorrow we will plan to contact patient's and updated her regarding plan and options. 09/26: Dr. Presley reviewed MRI with radiologist and there was abscess noted at C1 and C2 which was not described on the MRI report. Etiology has been contacted to update MRI report. Recommendations are for transfer to [facility] and arrangements have been started. Patient has been accepted but no beds are currently available. Both patient and his are agreeable for transfer. Patient has been seen by cardiothoracic surgery. Patient has been afebrile, heart rate 104, blood pressure 143/86, pulse ox 99% on 2 L nasal cannula. Patient is undergoing hemodialysis today. Her blood glucose running between 64 this morning at breakfast to 125. Levemir decreased to 5 units at bedtime. 09/27: Patient remains afebrile, heart rate in the 50s and 60s, blood pressure 174/70, pulse ox 100% on 2 L nasal cannula. Patient remains lethargic. His next dialysis is scheduled for tomorrow. Blood sugars are running between 101 159. Patient is continued on vancomycin. CAT scan of the brain showed no acute intracranial process. Stenosis at the craniovertebral junction. We are waiting for transfer to [facility] which we anticipate will occur today. REVIEW OF SYSTEMS Constitutional: Noted fever, no chills, no night sweats. No weight change. Reported weakness, reported fatigue Reported lethargy. Reported daytime sleepiness. increased lethargy EENT: No headache. No blurred vision or double vision, no loss of vision. No loss of Hearing, no ringing in the ears, no dizziness. No nasal drainage or congestion. No epistaxis. No sore throat. Lungs: No shortness of breath, cough, no sputum production. No wheezing. Cardiovascular: No chest pain, no lower extremity edema. No palpitations. No paroxysmal nocturnal dyspnea. No orthopnea. No lightheadedness or dizziness. No syncopal episodes. Abdominal: No abdominal pain. Reported nausea and vomiting. No diarrhea. No constipation. No bloody or tarry stools. Reported loss of appetite. Genitourinary: No dysuria, increased frequency, urgency. No urinary retention. Patient makes a small amount of urine. Musculoskeletal: No myalgias. Noted muscle weakness, no gait dysfunction, no frequent falls. Reported back pain. No neck pain. Integumentary: No wounds, no lesions. No rash or pruritus. No unusual bruising. No change in hair or nails. Neurologic: No aphasia. No facial droop. Noted change in mentation-improved today. No head injury. No headache. No paralysis. No paresthesia. Psychiatric: No depression. No anxiety. No mood swings. Endocrine: Noted abnormal blood sugars. No weight change. PHYSICAL EXAMINATION Gen: This is a 60-year-old male patient resting in bed. He is currently receiving hemodialysis. He appears to be in no acute distress. HEENT: Head is atraumatic, normocephalic. Pupils equal, round. Sclerae is a nicteric. NECK: Supple. No JVD. No lymphadenopathy. No thyromegaly. LUNGS: Clear to auscultation. No wheezes or rhonchi. No intercostal retractions. HEART: Regular rate and rhythm. 2/6 systolic murmur. ABDOMEN: Soft. Bowel sounds are present. No masses. No tenderness. EXTREMITIES: 2+ pedal edema. No calf tenderness. NEUROLOGICAL: Patient is lethargic, he wakens and answers questions. He is oriented 3. Cranial nerves 2 through 12 are grossly intact. ASSESSMENT AND PLAN 1. Sepsis and persistent MRSA bacteremia secondary to mitral valve vegetation, abscess of the C1-C2, history of osteomyelitis of the thoracic spine and lumbar spine. YAYO as above. Dr. Presley is following and recommended transfer to [facility]. Continue vancomycin. CAT scan of the brain negative for abscess. 2. Infectious metabolic encephalopathy. Continue as in #1. Hold gabapentin and continue treatment and #1. 3. Complaints of lumbar pain, nausea vomiting and dizziness. Continue Zofran 4 mg IV every 8 hours as needed. 4. Recent treatment for MRSA bacteremia and thoracic lumbar spine osteomyelitis, completed course of antibiotics. 5. End-stage renal disease on hemodialysis. Consult with nephrology appreciated. Continue PhosLo 667 mg 3 times daily, Aranesp 40 g subcu every 7 days, hemodialysis scheduled on Wednesday. 6. Degenerative disc disease and spinal stenosis. Hold gabapentin. Continue baclofen 5 mg every 8 hours as needed. 7. History of coronary artery disease with previous PTCA to LAD and circumflex. Continue aspirin 81 mg daily, atorvastatin 40 mg at bedtime, Lopressor 25 mg twice daily. 8. Paroxysmal atrial fibrillation. Continue eliquis 2.5 mg twice daily, Lopressor, amiodarone 200 mg daily 8. Ischemic cardiomyopathy. Continue Lopressor, Lasix 80 mg twice daily, metolazone 5 mg daily. 9. Diabetes mellitus type 2, insulin requiring, uncontrolled due to hypoglycemia. Continue Levemir decreased to 5 units at bedtime, NovoLog scale before meals and at bedtime, 10. Diabetic neuropathy. Hold gabapentin. 11. Hypertension. Continue hydralazine 25 mg 4 times daily. 12. Anemia of chronic disease. Continue ferrous sulfate 325 mg twice daily, Aranesp 40 g subcu every 7 days. 13. GI prophylaxis. Continue Protonix. 14. DVT prophylaxis. [facility] DISCHARGE PLAN Transfer to [facility] and eventually return to [facility]. Impression and plan of care have been directed as dictated by the signing physician. Katelyn Wesley nurse practitioner acting as scribe for signing physician. Patient Condition at Discharge: Serious Plan - Transfer Summary Transfer Medications: Active Medications Generic Name Dose Route Start Last Admin Trade Name Freq PRN Reason Stop Dose Admin Acetaminophen 650 mg 09/19/20 05:51 09/20/20 07:42 Acetaminophen Tab 325 Mg Tab PO 650 mg Q6HR PRN Administration Mild Pain or Fever > 100.5 Acetaminophen 650 mg 09/19/20 09:23 09/19/20 19:49 Acetaminophen Tab 325 Mg Tab PO 650 mg Q6H PRN Administration Pain or Fever > 100.5 Hydrocodone Bitart/Acetaminophen 1 each 09/19/20 09:23 09/25/20 20:48 Hydrocodone/Apap 5-325mg 1 Each Tab PO 1 each Q6HR PRN Administration Pain Alprazolam 0.25 mg 09/20/20 11:15 09/22/20 16:07 Alprazolam 0.25 Mg Tab PO 0.25 mg BID PRN Administration Anxiety Amiodarone HCl 200 mg 09/20/20 08:00 09/25/20 07:33 Amiodarone 200 Mg Tab PO 200 mg DAILY@0800 JLUIS Administration Apixaban 2.5 mg 09/19/20 17:00 09/26/20 08:13 Apixaban 2.5 Mg Tablet PO Not Given BID@0800,1700 [facility] Protocol Aspirin 81 mg 09/19/20 17:00 09/25/20 17:14 Aspirin 81 Mg PO 81 mg DAILY@1700 JLUIS Administration Atorvastatin Calcium 40 mg 09/19/20 21:00 09/25/20 20:48 Atorvastatin 40 Mg Tab PO 40 mg HS JLUIS Administration Baclofen 5 mg 09/19/20 09:23 09/25/20 02:01 Baclofen 10 Mg Tab PO 5 mg Q8H PRN Administration Muscle Pain Calcium Acetate 667 mg 09/19/20 12:00 09/26/20 08:10 Calcium Acetate 667 Mg Tab PO 667 mg TID@0800,1200,1700 JLUIS Administration Cholestyramine Resin 4 gm 09/19/20 17:00 09/26/20 08:10 Cholestyramine (With Sugar) 4 Gm Packet PO 4 gm BID@0800,1700 J[facility] Administration Darbepoetin Luis 40 mcg 09/19/20 10:00 09/26/20 08:11 Darbepoetin Luis 40 Mcg/0.4 Ml Syringe SQ 40 mcg WEEKLY JLUIS Administration Ferrous Sulfate 325 mg 09/19/20 17:00 09/26/20 05:46 Ferrous Sulfate 325 Mg Tab PO 325 mg BID@0600,1700 [facility] Administration Furosemide 80 mg 09/19/20 18:00 09/26/20 05:46 Furosemide 80 Mg Tab PO 80 mg BID@0600,1800 [facility] Administration Hydralazine HCl 25 mg 09/20/20 09:16 09/25/20 02:01 Hydralazine Hcl 25 Mg Tab PO 25 mg QID PRN Administration BP >140 Hydroxyzine HCl 50 mg 09/19/20 12:00 09/26/20 05:45 Hydroxyzine Hcl 25 Mg Tab PO 50 mg QID@00,06,12,18 JLUIS Administration Dextrose/Sodium Chloride 1,000 mls @ 50 mls/hr 09/23/20 12:00 09/26/20 03:29 Dextrose 5%-Ns Iv Soln IV Not Given .Q20H [facility] Ibuprofen 400 mg 09/19/20 05:51 Ibuprofen 400 Mg Tab PO Q6HR PRN Mild Pain or Fever > 100.5 Insulin Aspart 0 unit 09/19/20 12:30 09/26/20 12:26 Insulin Aspart (Novolog) 100 Unit/Ml Vial SQ Not Given ACHS [facility] Protocol Insulin Detemir 5 unit 09/26/20 21:00 Insulin Detemir (Levemir) 100 Unit/Ml Syr SQ HS@2100 [facility] Lactulose 15 gm 09/19/20 09:23 Lactulose 20 Gm/30 Ml Cup PO TID PRN Constipation Melatonin 1 mg 09/19/20 21:00 09/25/20 21:46 Melatonin 1 Mg Tab PO 1 mg HS [facility] Administration Metolazone 5 mg 09/20/20 06:00 09/26/20 05:46 Metolazone 5 Mg Tab PO 5 mg DAILY@0600 [facility] Administration Metoprolol Tartrate 25 mg 09/19/20 17:00 09/25/20 17:14 Metoprolol Tartrate 25 Mg Tab PO 25 mg BID@0800,1700 [facility] Administration Midodrine 10 mg 09/19/20 14:00 09/26/20 08:03 Midodrine 5 Mg Tab PO Not Given DAILY@0800 [facility] Miscellaneous Information 1 each 09/19/20 17:37 Vancomycin Iv Per Pharmacy 1 Each [facility] MISCELLANE DIRECTED PRN Per Protocol Protocol Miscellaneous Information 1 each 09/26/20 09:44 Rx Info: Iv Contrast Was Given 1 Each Misc MISCELLANE 09/28/20 09:46 DAILY PRN Per Protocol Multivitamins 1 each 09/19/20 17:00 09/25/20 17:14 Multivitamins, Thera 1 Each Tab PO 1 each DAILY@1700 [facility]UL[facility] Administration Naloxone HCl 0.2 mg 09/19/20 05:51 Naloxone 0.4 Mg/Ml 1 Ml Vial IV Q2M PRN Opioid Reversal Ondansetron HCl 4 mg 09/19/20 05:51 09/25/20 09:56 Ondansetron 4 Mg/2 Ml Vial IVP 4 mg Q8HR PRN Administration Nausea And Vomiting Pantoprazole Sodium 40 mg 09/20/20 07:30 09/26/20 08:11 Pantoprazole 40 Mg Tablet PO 40 mg DAILY@0730 JLU[facility] Administration Senna/Docusate Sodium 1 each 09/19/20 09:23 Sennosides-Docusate Sodium 1 Each Tab PO Q12H PRN Constipation Sodium Chloride 2 spray 09/19/20 09:23 Sodium Chloride 0.65% Nasal [place] 44 Ml Btl NASAL QID PRN Dry Nasal Passages Follow up Appointment(s)/Referral(s): [facility] Faust, [NON-STAFF] - As Needed Ten Mckeon DO [Primary Care Provider] - 1-2 days
--- NOTE | 2020-09-26 13:56 | CT ---
EXAMINATION TYPE: CT brain wo/w con DATE OF EXAM: 09/26/2020 COMPARISON: 08/12/2020 INDICATION: Cervical abscess, mental status change. DLP: 2296.4 mGycm, Automated exposure control for dose reduction was used. CONTRAST: [address] of the brain is performed utilizing 3 mm thick sections through the posterior fossa and 3 mm thick sections through the remaining calvarium. Study is performed within 24 hours of arrival to the hosp [facility]. No abnormal hyperdensity is present to suggest an acute intracranial hemorrhage. No mass lesion is evident. No acute infarcts are evident. Ventricles and sulci are appropriate for the patient age. Paranasal sinuses and mastoid air cells within the [id number] are clear. Note is made of narrowing at the foramen magnum and proximal spinal canal, stenosis may be present wi th an opening of 1.0 centimeters.. IMPRESSIONS: 1. No acute intracranial process. 2. Stenosis at the craniovertebral junction.
[2020-09-26 16:26] LABS: Glucose,Whole Blood 123 mg/dL (75-99)
[2020-09-26] MEDS: ASPIRIN 81 MG PO SCH (16:37)
[2020-09-26] MEDS: MULTIVITAMINS, THERA 1 EACH TAB PO SCH (16:42)
[2020-09-26 19:50] LABS: Glucose,Whole Blood 159 mg/dL (75-99)
[2020-09-26] MEDS: MELATONIN 1 MG TAB PO SCH (20:08)
[2020-09-26] MEDS: ATORVASTATIN 40 MG TAB PO SCH (20:08)
[2020-09-26] MEDS: INSULIN DETEMIR (LEVEMIR) 100 UNIT/ML SYR SQ SCH (20:09)
[2020-09-26] MEDS: HYDROcodone/APAP 5-325MG 1 EACH TAB PO PRN (21:54)
[2020-09-27] MEDS: hydrOXYzine HCL 25 MG TAB PO SCH ×4 (00:17→17:31)
[2020-09-27] MEDS: metOLazone 5 MG TAB PO SCH (05:34)
[2020-09-27] MEDS: FUROSEMIDE 80 MG TAB PO SCH ×2 (05:34→17:31)
[2020-09-27] MEDS: FERROUS SULFATE 325 MG TAB PO SCH ×2 (05:34→17:30)
[2020-09-27 06:46] LABS: Glucose,Whole Blood 100 mg/dL (75-99)
[2020-09-27] MEDS: INSULIN ASPART (NovoLOG) 100 UNIT/ML VIAL SQ SCH ×4 (08:08→22:28)
[2020-09-27] MEDS: CHOLESTYRAMINE (WITH SUGAR) 4 GM PACKET PO SCH ×2 (08:52→17:29)
[2020-09-27] MEDS: APIXABAN 2.5 MG TABLET PO SCH ×2 (08:53→17:31)
[2020-09-27] MEDS: CALCIUM ACETATE 667 MG TAB PO SCH ×3 (08:53→17:30)
[2020-09-27] MEDS: MIDODRINE 5 MG TAB PO SCH (08:53)
[2020-09-27] MEDS: METOPROLOL TARTRATE 25 MG TAB PO SCH ×2 (08:53→17:31)
[2020-09-27] MEDS: AMIODARONE 200 MG TAB PO SCH (08:53)
[2020-09-27] MEDS: PANTOPRAZOLE 40 MG TABLET PO SCH (08:53)
--- NOTE | 2020-09-27 09:30 | P.PN ---
Subjective Progress Note Date: 09/27/20 HISTORY OF PRESENT ILLNESS: Patient is a pleasant 60-year-old male with history of end-stage renal disease on hemodialysis, coronary artery disease status post PCI of the circumflex and LAD in September 2018, paroxysmal atrial fibrillation, diabetes mellitus, hypertension, dyslipidemia and MRSA bacteremia who presents secondary to fevers. Patient normally follows with Dr. Bowie. He was having altered mental status and therefore presented to Hospital and was found to be febrile with leukocytosis and blood cultures were 2 of 2 positive for MRSA bacteremia. He does have a history of prior bacteremia in April 2020 and was given prolonged antibiotic treatment. He denies any chest pain or pressure. He states that normally with his MIs he more so just isn't acting right. States he feels back to normal in terms of his confusion and the blood cultures have been clear with no growth to date to of the last 2. He does get headaches and currently has his face under a blanket. Denies any shortness breath. We were asked to evaluate for possible YAYO to rule out endocarditis. 2-D echo was performed 09/19/2020 which shows normal ejection fraction 55-60%, mild aortic stenosis, mild mitral regurgitation and no other significant valvular disease with RVSP of 57. 09/22 Patient seen and examined. Patient denies any chest pain or shortness breath. He states he does have some anxiety which she normally takes Ativan for. He did have dialysis yesterday. 3 L taken off. 09/23/2020 Patient examined at the bedside with Dr. Wills. Patient denies chest pain or pressure. He denies shortness of breath. Vital signs are stable. 09/24/2020 Patient examined at the bedside with Dr. Wills. Patient remains lethargic. He denies chest pain or pressure. He reports he is short of breath but states it is unchanged from yesterday. Patient underwent YAYO today with Dr. Bowie revealing vegetation on the posterior leaflet of the mitral valve with mitral regurgitation. He is being followed by infectious disease. 09/25/2020 Patient is s/p YAYO revealing vegetation on the posterior leaflet of the mitral valve. CTS has been consulted for further evaluation. Patient underwent MRI wit hout contrast yesterday revealing no evidence of cervical thoracic or lumbar fracture. No evidence of significant spinal stenosis. No evidence of osteomyelitis. No changes compared to old exam. Infectious disease is following. He is receiving antibiotics. 09/26/2020 Patient examined this morning at the bedside. Patient is more alert today compared to earlier this week. He denies chest pain or pressure. Reports mild shortness of breath. He is awaiting a bed at [facility]. PHYSICAL EXAM: VITAL SIGNS: Reviewed. GENERAL: Well-developed in no acute distress. NECK: Supple. No JVD or thyromegaly LUNGS: Respirations even and unlabored. Lungs diminished bilaterally. HEART: Regular rate and rhythm. S1 and S2 heard. Systolic murmur noted. EXTREMITIES: Normal range of motion. No clubbing or cyanosis. Peripheral pulses intact. Trace bilateral lower extremity edema ASSESSMENT: MRSA bacteremia Endocarditis, s/p YAYO 09/24/2020 Osteomyelitis of thoracic spine, possible lumbar spine and cervical spine abscess (Per HF records) End-stage renal disease Coronary artery disease status post stenting 2019 Paroxysmal atrial fibrillation Hypertension Hyperlipidemia History of MRSA bacteremia Diabetes PLAN: Antibiotic management per ID CT surgery following Patient is awaiting a bed at [facility] Nurse practitioner note has been reviewed by physician. Signing provider agrees with the documented findings, assessment, and plan of care. Objective - Vital Signs Vital signs: Vital Signs Temp 98.3 F 09/27/20 08:20 Pulse 63 09/27/20 08:49 Resp 17 09/27/20 08:20 BP 174/70 09/27/20 08:20 Pulse Ox 100 09/27/20 08:49 Intake & Output 09/26/20 09/27/20 09/27/20 18:59 06:59 18:59 Output Total 3800 Balance -3800 Output: Hemodialysis 3800 Other: Voiding Method Diaper Diaper Incontinent Incontinent # Voids 1 1 - Labs CBC & Chem 7: 09/23/20 06:43 09/24/20 07:01 Labs: Abnormal Lab Results - Last 24 Hours (Table) 09/26/20 09/26/20 09/26/20 Range/Units 11:28 16:24 19:47 POC Glucose (mg/dL) 109 H 123 H 159 H (75-99) mg/dL 09/27/20 Range/Units 06:45 POC Glucose (mg/dL) 100 H (75-99) mg/dL Microbiology - Last 24 Hours (Table) 09/25/20 06:12 Blood Culture - Preliminary Blood No Growth after 48 hours 09/24/20 17:34 Blood Culture - Preliminary Blood No Growth after 48 hours
--- NOTE | 2020-09-27 10:48 | P.PN ---
Subjective Patient is seen in follow-up for end-stage renal disease. He is maintained on hemodialysis on Wednesday schedule. On antibiotics for MRSA bacteremia. Mitral valve vegetation identified on YAYO. Feels tired. No chest pain or shortness of breath. No changes overnight. No problems with dialysis yesterday. Vital signs are stable. General: The patient appeared well nourished and normally developed. HEENT: Head exam is unremarkable. Neck is without jugular venous distension. LUNGS: Breath sounds decreased. HEART: Rate and Rhythm are regular. ABDOMEN: Soft, no distention. EXTREMITITES: 1+ edema. Objective - Vital Signs Vital signs: Vital Signs Temp 98.3 F 09/27/20 08:20 Pulse 63 09/27/20 08:49 Resp 17 09/27/20 08:20 BP 174/70 09/27/20 08:20 Pulse Ox 100 09/27/20 08:49 Intake & Output 09/26/20 09/27/20 09/27/20 18:59 06:59 18:59 Output Total 3800 Balance -3800 Output: Hemodialysis 3800 Other: Voiding Method Diaper Diaper Incontinent Incontinent # Voids 1 1 - Labs CBC & Chem 7: 09/23/20 06:43 09/24/20 07:01 Labs: Abnormal Lab Results - Last 24 Hours (Table) 09/26/20 09/26/20 09/26/20 Range/Units 11:28 16:24 19:47 POC Glucose (mg/dL) 109 H 123 H 159 H (75-99) mg/dL 09/27/20 Range/Units 06:45 POC Glucose (mg/dL) 100 H (75-99) mg/dL Microbiology - Last 24 Hours (Table) 09/26/20 07:17 Blood Culture - Preliminary Blood No Growth after 24 hours 09/25/20 06:12 Blood Culture - Preliminary Blood No Growth after 48 hours 09/24/20 17:34 Blood Culture - Preliminary Blood No Growth after 48 hours Assessment and Plan Plan: Assessment: 1. End-stage renal disease maintained on hemodialysis on Wednesday schedule via left upper extremity AV fistula. 2. MRSA bacteremia on antibiotics. Infectious disease following. Mitral valve vegetation identified on YAYO - CTS following. Also concern of spinal abscess. Being transferred to [facility]. 3. Anemia of chronic kidney disease maintained on Aranesp. 4. Chronic kidney disease mineral bone disease maintained on PhosLo. 5. A. fib maintained on amiodarone, metoprolol and anticoagulation. 6. Diabetes mellitus. Plan: Hemodialysis tomorrow.
[2020-09-27 11:16] LABS: Glucose,Whole Blood 139 mg/dL (75-99)
[2020-09-27] MEDS: ONDANSETRON 4 MG/2 ML VIAL IVP PRN (14:52)
--- NOTE | 2020-09-27 15:05 | P.PN ---
Subjective Progress Note Date: 09/27/20 This is a 60-year-old male patient of Dr. Mckeon currently residing at [facility] under the care of Dr. Christian with a previous medical history significant for hypertension and hypertensive cardiovascular disease, hyperlipidemia, diabetes mellitus type 2, paroxysmal atrial fibrillation, coronary artery dis ease status post left heart catheterization and PCI of the obtuse marginal branch #1 off the LCx, followed by a recent PCI and stenting of the LAD back in September 2018, end-stage renal disease on hemodialysis Wednesday and Wednesday via left arm fistula, blindness of the right eye as well as left eye legally blind. Patient was hospitalized in April 2020 at which time he was treated for sepsis and MRSA bacteremia of unclear etiology with metabolic encephalopathy vasovagal episode requiring brief CPR and patient was transferred to [facility]. Patient was treated for MRSA osteomyelitis of the lumbar spine. Patient was discharged to [facility] for subacute rehab and was transferred from there yesterday to [facility]. Patient apparently had emesis after hemodialysis treatment. He was complaining of nausea and easy had decreased oral intake. He is complaining of dizziness. Patient had a drop in his blood pressure and has been refusing all his medications. On examination, patient is complaining of low back pain and has refused MRI of the lumbar spine. Temperature max 100.2, heart rate in the 60s to 80s, blood pressure 106/78, pulse ox 96% on 3 L nasal cannula. WBC 15.8, hemoglobin 11.1, platelet count 146. Sodium 135, potassium 5.0, chloride 94, CO2 22, BUN 19 creatinine 6.03. Blood sugar 236. Lactic acid 1.6. Magnesium 2.3, total bilirubin 0.9, AST 72, ALT 61 alkaline phosphatase 325. LDH 651. C- reactive protein 1.7. Urinalysis cloudy, blood moderate, leukoesterase small, RBCs 9, bacteria rare. Coronavirus PCR not detected. Gallbladder ultrasound reveals correlate for underlying cirrhosis. Hypoechoic appearance may be seen with hepatitis. Mild perihepatic ascites. Status post cholecystectomy. No biliary ductal dilatation. Chest x-ray reveals cardiomegaly and mild pulmonary congestion. Pulmonary vascularity slightly increased compared to old exam. Echocardiogram reveals EF of 55-60% with moderate concentric left ventricular hypertrophy, mild aortic stenosis, mild mitral regurgitation, mild tricuspid re gurgitation, moderate to severe pulmonary hypertension. No mention of vegetation. Patient admitted to the [facility] floor and consults requested with infectious disease and nephrology. 09/21 patient assessed today denies any fever or chills, denies any shortness of breath or breathing difficulty vitals are evaluated nt is afebrile pulse 65 respiratory rate 18 blood pressure 135/81 and oxygen saturation 100% on 2 L. Infectious disease was consulted who recommended nuclear scan increased uptake is noted in the lungs consistent with diffuse nonspecific inflammation process but no suggestion of abscess. Cardiology was consulted for possible YAYO. Patient has persistent MRSA infection and had multiple admissions for it. He was transferred to [facility] who thought patient had MRSA osteomyelitis for which patient has completed treatment. Due to persistent infection, cardiology was consulted. We will discuss with infectious disease for further management 09/22 patient examined bedside. Patient appears significantly heartrate as patient has not slept during the night. Patient is extremely weak and unable to come out of the bed. Detailed discussion with infectious disease and other attendings were done. MRI of the lumbar spine is recommended by Dr. Ardon. Patient is reluctant and refusing to get an MRI. Since patient is drowsy will discuss with the patient again. Vitals were reviewedpatient is afebrile temp 99.4 pulse 65 blood pressure 112/69 and oxygen saturation 96% on 2 L . No recent labs. Stat CBC CMP ordered 09/23: Patient treated for persistent MRSA bacteremia and currently on IV vancomycin dosed by pharmacy. Patient is scheduled for MRI of the lumbar spine and YAYO. Patient has been afebrile, heart rate 63, blood pressure 161/91, pulse ox 99% on 3 L nasal cannula. Repeat blood work reveals WBC 9.4, hemoglobin 9.9, platelet count 131. Sodium 137, potassium 4.7, chloride 104, CO2 19, BUN 72 creatinine 5.68. Blood sugars are running between 97 and 161. Total bilirubin 0.5, AST 51, ALT 73, alkaline phosphates . Vancomycin level XXVIII. 09/24: Patient is undergoing hemodialysis this morning. YAYO has been postponed until today. Case was discussed with Dr. Presley and nephrology and plan is for thoracic MRI with contrast and MRI of the cervical spine and lumbar spine without contrast and last low dose is given for the thoracic and patient is able to tolerate. Patient has been afebrile, heart rate 64, blood pressure 183/84, pulse ox 100% On 3 L nasal cannula. Patient's mentation is not back to normal. Reports from [facility] reveal CAT scan of the spine: 1. Retropharyngeal fluids/phlegmon in the upper neck. Hypodensity seen extending into the right longus coli as well as fluid seen surrounding the C1-C2 articulation suggestive of abscesses. Bacterial versus tuberculosis etiology should be considered. There is thickened epidural soft tissue noted dorsal to the dens. 2. Thoracic spine showed erosive changes of the anterior margin of T8 as well as destruction of the T8-T9 anterior osteophyte concerning for osteomyelitis. 3. Lumbar spine revealed degenerative changes as above with compression of the exiting L5 nerve root on the left. There is demineralization seen involving the anterior superior aspect of L2 corresponding to fluid cortical irregularity on accompanying MRI. This is worrisome for additional area of osteomyelitis. No CT evidence of epidural abscess, acute fracture or s ubluxation. TTE was unremarkable and YAYO was not recommended. Left upper extremity CT with contrast did not show evidence of abscess or thrombus. 09/25: Patient underwent YAYO yesterday with Dr. Bowie the thumb vegetation on the posterior mitral leaflet. There is evidence of at least moderate mitral regurgitation. Aortic sclerosis without stenosis and without insufficiency. No vegetation on the aortic valve. Moderate tricuspid regurgitation. No vegetation on the tricuspid valve. EF 45%. MRI of the cervical spine, thorax is spine and lumbar spine was done with out contrast although it was ordered with contrast dated been coordinated with nephrology. The study revealed limitations of the exam with no evidence of cervical thoracic or lumbar fracture. There is no evidence of spinal stenosis. No evidence of osteomyelitis. No adverse change compared to old exam. Case has been discussed with Dr. Wills and with Dr. Ardon. At this point we will plan to add cardiothoracic surgery consult and Dr. Ardon will talk to pharmacy regarding antibiotics. Patient states that he hated undergoing the MRI and out that he will ever go under another one again. He has been afebrile, heart rate 71, blood pressure 175/77, pulse ox 96% on 4 L. Her blood glucose running between 91 and 108. Patient is undergoing dialysis morning which was ordered to be done after contrast from MRI and nephrology will cancel this and continue his normal schedule of Wednesday. Patient remains lethargic mental status is okay today, less confusion. Cardiothoracic consult will be obtained and further discussion with Dr. Reva Curry regarding antibiotics availability, tomorrow we will plan to contact patient's and updated her regarding plan and options. 09/26: Dr. Presley reviewed MRI with radiologist and there was abscess noted at C1 and C2 which was not described on the MRI report. Etiology has been contacted to update MRI report. Recommendations are for transfer to [facility] and arrangements have been started. Patient has been accepted but no beds are currently available. Both patient and his are agreeable for transfer. Patient has been seen by cardiothoracic surgery. Patient has been afebrile, heart rate 104, blood pressure 143/86, pulse ox 99% on 2 L nasal cannula. Patient is undergoing hemodialysis today. Her blood glucose running between 64 this morning at breakfast to 125. Levemir decreased to 5 units at bedtime. 09/27: Patient remains afebrile, heart rate in the 50s and 60s, blood pressure 174/70, pulse ox 100% on 2 L nasal cannula. Patient remains lethargic. His next dialysis is scheduled for tomorrow. Blood sugars are running between 101 159. Patient is continued on vancomycin. CAT scan of the brain showed no acute intracranial process. Stenosis at the craniovertebral junction. We are waiting for transfer to [facility]. REVIEW OF SYSTEMS Constitutional: Noted fever, no chills, no night sweats. No weight change. Reported weakness, reported fatigue Reported lethargy. Reported daytime s leepiness. increased lethargy EENT: No headache. No blurred vision or double vision, no loss of vision. No loss of Hearing, no ringing in the ears, no dizziness. No nasal drainage or congestion. No epistaxis. No sore throat. Lungs: No shortness of breath, cough, no sputum production. No wheezing. Cardiovascular: No chest pain, no lower extremity edema. No palpitations. No paroxysmal nocturnal dyspnea. No orthopnea. No lightheadedness or dizziness. No syncopal episodes. Abdominal: No abdominal pain. Reported nausea and vomiting. No diarrhea. No constipation. No bloody or tarry stools. Reported loss of appetite. Genitourinary: No dysuria, increased frequency, urgency. No urinary retention. Patient makes a small amount of urine. Musculoskeletal: No myalgias. Noted muscle weakness, no gait dysfunction, no frequent falls. Reported back pain. No neck pain. Integumentary: No wounds, no lesions. No rash or pruritus. No unusual bruising. No change in hair or nails. Neurologic: No aphasia. No facial droop. Noted change in mentation-improved today. No head injury. No headache. No paralysis. No paresthesia. Psychiatric: No depression. No anxiety. No mood swings. Endocrine: Noted abnormal blood sugars. No weight change. PHYSICAL EXAMINATION Gen: This is a 60-year-old male patient resting in bed. He is currently receiving hemodialysis. He appears to be in no acute distress. HEENT: Head is atraumatic, normocephalic. Pupils equal, round. Sclerae is anicteric. NECK: Supple. No JVD. No lymphadenopathy. No thyromegaly. LUNGS: Clear to auscultation. No wheezes or rhonchi. No intercostal retractions. HEART: Regular rate and rhythm. 2/6 systolic murmur. ABDOMEN: Soft. Bowel sounds are present. No masses. No tenderness. EXTREMITIES: 2+ pedal edema. No calf tenderness. NEUROLOGICAL: Patient is lethargic, he wakens and answers questions. He is oriented 3. Cranial nerves 2 through 12 are grossly intact. ASSESSMENT AND PLAN 1. Sepsis and persistent MRSA bacteremia secondary to mitral valve vegetation, abscess of the C1-C2, history of osteomyelitis of the thoracic spine and lumbar spine. YAYO as above. Dr. Presley is following and recommended transfer to [facility]. Continue vancomycin. 2. Infectious metabolic encephalopathy. Continue as in #1. Hold gabapentin and continue treatment and #1. 3. Complaints of lumbar pain, nausea vomiting and dizziness. Continue Zofran 4 mg IV every 8 hours as needed. 4. Recent treatment for MRSA bacteremia and thoracic lumbar spine osteomyelitis, completed course of antibiotics. 5. End-stage renal disease on hemodialysis. Consult with nephrology appreciated. Continue PhosLo 667 mg 3 times daily, Aranesp 40 g subcu every 7 days, hemodialysis scheduled on Wednesday. 6. Degenerative disc disease and spinal stenosis. Hold gabapentin. Continue baclofen 5 mg every 8 hours as needed. 7. History of coronary artery disease with previous PTCA to LAD and circumflex. Continue aspirin 81 mg daily, atorvastatin 40 mg at bedtime, Lopressor 25 mg twice daily. 8. Paroxysmal atrial fibrillation. Continue eliquis 2.5 mg twice daily, Lopressor, amiodarone 200 mg daily 8. Ischemic cardiomyopathy. Continue Lopressor, Lasix 80 mg twice daily, metolazone 5 mg daily. 9. Diabetes mellitus type 2, insulin requiring, uncontrolled due to hypoglycemia. Continue Levemir decreased to 5 units at bedtime, NovoLog scale before meals and at bedtime, 10. Diabetic neuropathy. Hold gabapentin. 11. Hypertension. Continue hydralazine 25 mg 4 times daily. 12. Anemia of chronic disease. Continue ferrous sulfate 325 mg twice daily, Aranesp 40 g subcu every 7 days. 13. GI prophylaxis. Continue Protonix. 14. DVT prophylaxis. Eliquis DISCHARGE PLAN Transferred to [facility] eventual return to [facility] Impression and plan of care have been directed as dictated by the signing physician. Katelyn Wesley nurse practitioner acting as scribe for signing physi mckenzie. Objective - Vital Signs Vital signs: Vital Signs Temp 98.3 F 09/27/20 08:20 Pulse 63 09/27/20 08:49 Resp 17 09/27/20 08:20 BP 174/70 09/27/20 08:20 Pulse Ox 100 09/27/20 08:49 Intake & Output 09/26/20 09/27/20 09/27/20 18:59 06:59 18:59 Output Total 3800 Balance -3800 Output: Hemodialysis 3800 Other: Voiding Method Diaper Diaper Incontinent Incontinent # Voids 1 1 - Labs CBC & Chem 7: 09/23/20 06:43 09/24/20 07:01 Labs: Abnormal Lab Results - Last 24 Hours (Table) 09/26/20 09/26/20 09/26/20 Range/Units 11:28 16:24 19:47 POC Glucose (mg/dL) 109 H 123 H 159 H (75-99) mg/dL 09/27/20 09/27/20 Range/Units 06:45 11:14 POC Glucose (mg/dL) 100 H 139 H (75-99) mg/dL Microbiology - Last 24 Hours (Table) 09/26/20 07:17 Blood Culture - Preliminary Blood No Growth after 24 hours 09/25/20 06:12 Blood Culture - Preliminary Blood No Growth after 48 hours 09/24/20 17:34 Blood Culture - Preliminary Blood No Growth after 48 hours
--- NOTE | 2020-09-27 16:54 | PN ---
PROGRESS NOTE DATE OF SERVICE: 09/27/2020 REASON FOR FOLLOWUP: MRSA bacteremia concerning for a cervical paraspinal abscess. INTERVAL HISTORY: The patient is afebrile. The patient remains to be sleepy, lethargic, unable to provide any history. No vomiting or diarrhea or any other changes reported by nursing staff. PHYSICAL EXAMINATION: Blood pressure 174/70 with a pulse of 73, temperature 98.3. He is 100% on 2 L nasal cannula. General description is a middle-aged male lying in bed in no distress. Respiratory system: Unlabored breathing, decreased breath sounds in the base, with no wheeze. Heart S1, S2. Regular rate and rhythm. Abdomen soft, no tenderness. LAB: Vanco trough 23.2. Blood cultures /, 4, and 5 are negative. DIAGNOSTIC IMPRESSION AND PLAN: Patient with MRSA bacteremia concerning for endocarditis and cervical paraspinal abscess waiting for transfer to tertiary care. Patient is covered with vancomycin to continue and monitor clinical course closely. MMODL / IJN: [id number] /
[2020-09-27 17:01] LABS: Glucose,Whole Blood 136 mg/dL (75-99)
[2020-09-27] MEDS: DEXTROSE 5%-0.9% NACL 1,000 ML IV SCH (17:06)
[2020-09-27] MEDS: ASPIRIN 81 MG PO SCH (17:30)
[2020-09-27] MEDS: MULTIVITAMINS, THERA 1 EACH TAB PO SCH (17:30)
[2020-09-27 21:37] LABS: Glucose,Whole Blood 157 mg/dL (75-99)
[2020-09-27] MEDS: MELATONIN 1 MG TAB PO SCH (22:28)
[2020-09-27] MEDS: ATORVASTATIN 40 MG TAB PO SCH (22:29)
[2020-09-27] MEDS: INSULIN DETEMIR (LEVEMIR) 100 UNIT/ML SYR SQ SCH (22:29)
[2020-09-27] MEDS ORDERED: LOPERAMIDE 2 MG CAP PO PRN (23:17)
[2020-09-28] MEDS: hydrOXYzine HCL 25 MG TAB PO SCH ×5 (01:37→23:32)
[2020-09-28] MEDS: FERROUS SULFATE 325 MG TAB PO SCH ×2 (05:46→16:49)
[2020-09-28] MEDS: FUROSEMIDE 80 MG TAB PO SCH ×2 (05:46→16:50)
[2020-09-28] MEDS: metOLazone 5 MG TAB PO SCH (05:46)
[2020-09-28 06:51] LABS: Glucose,Whole Blood 106 mg/dL (75-99)
[2020-09-28] MEDS: INSULIN ASPART (NovoLOG) 100 UNIT/ML VIAL SQ SCH ×4 (08:39→20:30)
[2020-09-28] MEDS: MIDODRINE 5 MG TAB PO SCH (08:44)
[2020-09-28] MEDS: APIXABAN 2.5 MG TABLET PO SCH ×2 (08:44→16:49)
[2020-09-28] MEDS: PANTOPRAZOLE 40 MG TABLET PO SCH (08:44)
[2020-09-28] MEDS: METOPROLOL TARTRATE 25 MG TAB PO SCH ×2 (08:44→16:49)
[2020-09-28] MEDS: CALCIUM ACETATE 667 MG TAB PO SCH ×3 (08:44→16:49)
[2020-09-28] MEDS: AMIODARONE 200 MG TAB PO SCH ×2 (08:44→12:28)
[2020-09-28] MEDS: CHOLESTYRAMINE (WITH SUGAR) 4 GM PACKET PO SCH ×2 (08:45→16:50)
[2020-09-28 08:56] LABS: ALT 27 U/L (4-49); AST 22 U/L (17-59); African American GFR (CKD) 15 (>60 ml/min/1.73 sqM); Albumin 3.3 g/dL (3.5-5.0); Albumin/Globulin Ratio 1.2; Alkaline Phosphatase 254 U/L (38-126); Anion Gap 12 mmol/L; Blood Urea Nitrogen 42 mg/dL (9-20); Calcium 8.7 mg/dL (8.4-10.2); Carbon Dioxide 21 mmol/L (22-30); Chloride 101 mmol/L (98-107); Globulin 2.8 g/dL; Glucose 104 mg/dL (74-99); Non-African American GFR(CKD) 13 (>60 ml/min/1.73 sqM); Potassium 4.2 mmol/L (3.5-5.1); Sodium 134 mmol/L (137-145); Total Bilirubin 0.5 mg/dL (0.2-1.3); Total Protein 6.1 g/dL (6.3-8.2)
[2020-09-28 09:02] LABS: Vancomycin,Random 21.9 ug/mL
--- NOTE | 2020-09-28 09:28 | P.PN ---
Subjective Progress Note Date: 09/28/20 HISTORY OF PRESENT ILLNESS: Patient is a pleasant 60-year-old male with history of end-stage renal disease on hemodialysis, coronary artery disease status post PCI of the circumflex and LAD in September 2018, paroxysmal atrial fibrillation, diabetes mellitus, hypertension, dyslipidemia and MRSA bacteremia who presents secondary to fevers. Patient normally follows with Dr. Bowie. He was having altered mental status and therefore presented to Hospital and was found to be febrile with leukocytosis and blood cultures were 2 of 2 positive for MRSA bacteremia. He does have a history of prior bacteremia in April 2020 and was given prolonged antibiotic treatment. He denies any chest pain or pressure. He states that normally with his MIs he more so just isn't acting right. States he feels back to normal in terms of his confusion and the blood cultures have been clear with no growth to date to of the last 2. He does get headaches and currently has his face under a blanket. Denies any shortness breath. We were asked to evaluate for possible YAYO to rule out endocarditis. 2-D echo was performed 09/19/2020 which shows normal ejection fraction 55-60%, mild aortic stenosis, mild mitral regurgitation and no other significant valvular disease with RVSP of 57. 09/22 Patient seen and examined. Patient denies any chest pain or shortness breath. He states he does have some anxiety which she normally takes Ativan for. He did have dialysis yesterday. 3 L taken off. 09/23/2020 Patient examined at the bedside with Dr. Wills. Patient denies chest pain or pressure. He denies shortness of breath. Vital signs are stable. 09/24/2020 Patient examined at the bedside with Dr. Wills. Patient remains lethargic. He denies chest pain or pressure. He reports he is short of breath but states it is unchanged from yesterday. Patient underwent YAYO today with Dr. Bowie revealing vegetation on the posterior leaflet of the mitral valve with mitral regurgitation. He is being followed by infectious disease. 09/25/2020 Patient is s/p YAYO revealing vegetation on the posterior leaflet of the mitral valve. CTS has been consulted for further evaluation. Patient underwent MRI wit hout contrast yesterday revealing no evidence of cervical thoracic or lumbar fracture. No evidence of significant spinal stenosis. No evidence of osteomyelitis. No changes compared to old exam. Infectious disease is following. He is receiving antibiotics. 09/27/2020 Patient examined this morning at the bedside. Patient is more alert today compared to earlier this week. He denies chest pain or pressure. Reports mild shortness of breath. He is awaiting a bed at [facility]. 09/28/2020 Patient examined at the bedside. Patient denies chest pain or pressure. Reports mild SOB. Vital signs are stable. He is awaiting a bed at [facility]. PHYSICAL EXAM: VITAL SIGNS: Reviewed. GENERAL: Well-developed in no acute distress. NECK: Supple. No JVD or thyromegaly LUNGS: Respirations even and unlabored. Lungs diminished bilaterally. HEART: Regular rate and rhythm. S1 and S2 heard. Systolic murmur noted. EXTREMITIES: Normal range of motion. No clubbing or cyanosis. Peripheral pulses intact. 1-2+ bilateral lower extremity edema ASSESSMENT: MRSA bacteremia Endocarditis, s/p YAYO 09/24/2020 Osteomyelitis of thoracic spine, possible lumbar spine and cervical spine abscess (Per HF records) End-stage renal disease Coronary artery disease status post stenting 2019 Paroxysmal atrial fibrillation Hypertension Hyperlipidemia History of MRSA bacteremia Diabetes PLAN: Antibiotic management per ID CT surgery following Patient is awaiting a bed at [facility] Nurse practitioner note has been reviewed by physician. Signing provider agrees with the documented findings, assessment, and plan of care. Objective - Vital Signs Vital signs: Vital Signs Temp 98.1 F 09/28/20 02:00 Pulse 61 09/28/20 02:00 Resp 18 09/28/20 02:00 BP 159/67 09/28/20 02:00 Pulse Ox 99 09/28/20 02:00 Intake & Output 09/27/20 09/28/20 09/28/20 18:59 06:59 18:59 Weight 112.5 kg Other: Voiding Method Diaper Diaper Incontinent Incontinent # Voids 0 0 # Bowel Movements 8 - Labs CBC & Chem 7: 09/23/20 06:43 09/28/20 07:45 Labs: Abnormal Lab Results - Last 24 Hours (Table) 09/27/20 09/27/20 09/27/20 Range/Units 11:14 17:00 21:32 Sodium (137-145) mmol/L Carbon Dioxide (22-30) mmol/L BUN (9-20) mg/dL Creatinine (0.66-1.25) mg/dL Glucose (74-99) mg/dL POC Glucose (mg/dL) 139 H 136 H 157 H (75-99) mg/dL Alkaline Phosphatase (38-126) U/L Total Protein (6.3-8.2) g/dL Albumin (3.5-5.0) g/dL 09/28/20 09/28/20 Range/Units 06:49 07:45 Sodium 134 L (137-145) mmol/L Carbon Dioxide 21 L (22-30) mmol/L BUN 42 H (9-20) mg/dL Creatinine 4.47 H (0.66-1.25) mg/dL Glucose 104 H (74-99) mg/dL POC Glucose (mg/dL) 106 H (75-99) mg/dL Alkaline Phosphatase 254 H (38-126) U/L Total Protein 6.1 L (6.3-8.2) g/dL Albumin 3.3 L (3.5-5.0) g/dL Microbiology - Last 24 Hours (Table) 09/25/20 06:12 Blood Culture - Preliminary Blood No Growth after 72 hours 09/24/20 17:34 Blood Culture - Preliminary Blood No Growth after 72 hours 09/26/20 07:17 Blood Culture - Preliminary Blood No Growth after 24 hours
--- NOTE | 2020-09-28 10:52 | P.GSCN ---
History of Present Illness History of present illness: 60-year-old gentleman patient is known to me from the past. Patient had a cephalic brachial fistula fistula placed in the past patient has been admitted admitted bacteremia with endocarditis and patient has a paraspinal abscess patient is going to go for tertiary care On examination patient was seen in his room neck supple trachea central chest is a crackles bilateral Left arm patient is febrile brachial fistula there is a good thrill present patient is having dialysis 3 times a week no redness noted discharge noted Patient will be transferred to the tertiary care for further care clinically there is no evidence of its abscess or infection noted in the cystic cephalic brachial fistula Past Medical History Past Medical History: Atrial Fibrillation, Coronary Artery Disease (CAD), Heart Failure, Diabetes Mellitus, Dialysis, Eye Disorder, GERD/Reflux, Hearing Disorder / Deafness, Hyperlipidemia, Hypertension, Myocardial Infarction (ID), Renal Disease, Syncope Additional Past Medical History / Comment(s): IDDM type II, neuropathy bilateral hands/feet, ESRD with hemodialysis on M/W/F, chronic anemia, LVH, Afib with RVR, MIs, chronic CHF, R eye blindness, L eye legally blind, RLS, pt unsure if he has gout, vertigo at times, balance issues at times, stomach ulcer at age 17yrs, sinus problems, very COMANCHE R ear. Last Myocardial Infarction Date:: 08/09/18 History of Any Multi-Drug Resistant Organisms: MRSA Year Discovered:: 09/20/20 MDRO Source:: Blood Past Surgical History: Heart Catheterization, Heart Catheterization With Stent Additional Past Surgical History / Comment(s): TTT, PD catheter placement/since removed, 2016 L arm fistula, fistula gram with balloon for stenosis, L eye vitrectomy, thyroid needle aspiration-negative, L leg cyst, colonoscopy with benign polypectomy. port placed in chest Right side. Past Anesthesia/Blood Transfusion Reactions: Postoperative Nausea & Vomiting (PONV) Date of Last Stent Placement:: 03-03-18 Past Psychological History: Anxiety, Depression Additional Psychological History / Comment(s): Pt resides with his spouse, AND SON. He is legally blind L eye and blind in R eye. He is very COMANCHE in R ear. He has a cane and walker which he uses prn. His spouse and son drive. Pt uses glasses and a magnifier to read. He has depression which he states is constantly present but not increased. He denies thoughts/plans of suicide. Smoking Status: Never smoker Past Alcohol Use History: None Reported Additional Past Alcohol Use History / Comment(s): Pt started smoking in 1972 and quit in 1995. Past Drug Use History: None Reported - Past Family History Father Family Medical History: Cancer, Coronary Artery Disease (CAD), Hyperlipidemia Additional Family Medical History / Comment(s): Lung/BRAIN CANCER Mother Family Medical History: Diabetes Mellitus, Deep Vein Thrombosis (DVT), Osteoarthritis (OA) Additional Family Medical History / Comment(s): DJD Sister(s) Family Medical History: Diabetes Mellitus Additional Family Medical History / Comment(s): Patient has one sister with diabetes mellitus type 2, SLE, MS. Brother(s) Family Medical History: Diabetes Mellitus Additional Family Medical History / Comment(s): Patient has 4 kids no major medical problems. Daughter(s) Family Medical History: No Reported History Additional Family Medical History / Comment(s): Patient has 2 daughters no major medical problems. Son(s) Family Medical History: No Reported History Additional Family Medical History / Comment(s): Patient has 2 sons no major medical problems. Medications and Allergies Home Medications Medication Instructions Recorded Confirmed Type Calcium Acetate [PhosLo] 667 mg PO TID@0800,1200,1700 08/05/18 09/19/20 History Furosemide [Lasix] 80 mg PO BID@0600,1800 04/13/19 09/19/20 History hydrOXYzine pamoate [Vistaril] 50 mg PO QID@00,06,12,18 02/06/20 09/19/20 History Pantoprazole [Protonix] 40 mg PO DAILY@0600 02/17/20 09/19/20 History Acetaminophen Tab [Tylenol] 650 mg PO Q6H PRN 08/12/20 09/19/20 History Aspirin EC [Ecotrin Low Dose] 81 mg PO DAILY@1700 08/12/20 09/19/20 History Epoetin Luis [Epogen] 4,000 unit SQ TUTHSA 08/12/20 09/19/20 History Ferrous Sulfate [Iron (65 MG 325 mg PO BID@0600,1700 08/12/20 09/19/20 History Elemental)] INSULIN ASPART (NovoLOG) [NovoLOG See Protocol SQ ACHS 08/12/20 09/19/20 History (formulary)] Insulin Detemir (Levemir) [Levemir] 10 unit SQ HS@2100 08/12/20 09/19/20 History Melatonin 1 mg PO HS 08/12/20 09/19/20 History Midodrine HCl [ProAmatine] 10 mg PO DAILY@0800 08/12/20 09/19/20 History Multivitamins, Thera [Multivitamin 1 tab PO DAILY@1700 08/12/20 09/19/20 History (formulary)] Na Phos,M-B/Na Phos,Di-Ba [Fleet 133 ml RECTAL DAILY PRN 08/12/20 09/19/20 History Adult] Sennosides/Docusate Sodium 1 tab PO Q12H PRN 08/12/20 09/19/20 History [Senna-S 8.6-50 mg Tablet] bisacodyL [Dulcolax] 10 mg RECTAL DAILY PRN 08/12/20 09/19/20 History Baclofen [Lioresal] 5 mg PO Q8H PRN #0 08/19/20 09/19/20 Rx Gabapentin 300 mg PO HS@2100 #3 cap 08/19/20 09/19/20 Rx HYDROcodone/APAP 5-325MG [[place] 1 tab PO Q6HR PRN #12 tab 08/19/20 09/19/20 Rx 5-325] Lactulose [Cephulac] 15 gm PO TID PRN ml 08/19/20 09/19/20 Rx Sodium Chloride 0.65% Nasal [Deep 2 spray NASAL QID PRN spray 08/19/20 09/19/20 Rx Sea (Saline)] Amiodarone [Cordarone] 200 mg PO DAILY@0800 09/19/20 09/19/20 History Apixaban [Eliquis] 2.5 mg PO BID@0800,1700 09/19/20 09/19/20 History Atorvastatin [Lipitor] 40 mg PO HS 09/19/20 09/19/20 History Cholestyramine/Aspartame 4 gm PO BID@0800,1700 09/19/20 09/19/20 History [Cholestyramine Light Packet] Liquacel 30 ml PO BID@0800,1700 09/19/20 09/19/20 History Metoprolol Tartrate [Lopressor] 25 mg PO BID@0800,1700 09/19/20 09/19/20 History Ondansetron HCl [Zofran] 4 mg PO Q6H PRN 09/19/20 09/19/20 History hydrALAZINE HCL [Apresoline] 75 mg PO TID@0800,1200,1700 09/19/20 09/19/20 History metOLazone [Zaroxolyn] 5 mg PO DAILY@0600 09/19/20 09/19/20 History Allergies Allergy/AdvReac Type Severity Reaction Status Date / Time codeine Allergy Unknown Verified 09/19/20 06:44 Penicillins Allergy Anaphylaxis Verified 09/19/20 06:44 sulfadiazine Allergy Unknown Verified 09/19/20 06:44 bumetanide [From Bumex] AdvReac Hallucinati Verified 09/19/20 06:44 ons morphine AdvReac Confusion Verified 09/19/20 06:44 rivaroxaban [From Xarelto] AdvReac Bloody Nose Verified 09/19/20 06:44 spironolactone AdvReac Hallucinati Verified 09/19/20 06:44 ons All antibiotics except Keflex Allergy Unknown Uncoded 09/19/20 06:44 Childhood Surgical - Exam Vital Signs Temp Pulse Resp BP Pulse Ox 102 F H 87 18 106/78 96 09/19/20 04:07 09/19/20 04:07 09/19/20 04:07 09/19/20 04:07 09/19/20 04:07 Results - Labs 09/23/20 06:43 09/28/20 07:45 Abnormal Lab Results - Last 24 Hours (Table) 09/27/20 09/27/20 09/27/20 Range/Units 11:14 17:00 21:32 Sodium (137-145) mmol/L Carbon Dioxide (22-30) mmol/L BUN (9-20) mg/dL Creatinine (0.66-1.25) mg/dL Glucose (74-99) mg/dL POC Glucose (mg/dL) 139 H 136 H 157 H (75-99) mg/dL Alkaline Phosphatase (38-126) U/L Total Protein (6.3-8.2) g/dL Albumin (3.5-5.0) g/dL 09/28/20 09/28/20 Range/Units 06:49 07:45 Sodium 134 L (137-145) mmol/L Carbon Dioxide 21 L (22-30) mmol/L BUN 42 H (9-20) mg/dL Creatinine 4.47 H (0.66-1.25) mg/dL Glucose 104 H (74-99) mg/dL POC Glucose (mg/dL) 106 H (75-99) mg/dL Alkaline Phosphatase 254 H (38-126) U/L Total Protein 6.1 L (6.3-8.2) g/dL Albumin 3.3 L (3.5-5.0) g/dL Microbiology - Last 24 Hours (Table) 09/26/20 07:17 Blood Culture - Preliminary Blood No Growth after 48 hours 09/25/20 06:12 Blood Culture - Preliminary Blood No Growth after 72 hours 09/24/20 17:34 Blood Culture - Preliminary Blood No Growth after 72 hours Diabetes panel 09/28/20 Range/Units 07:45 Sodium 134 L (137-145) mmol/L Potassium 4.2 (3.5-5.1) mmol/L Chloride 101 (98-107) mmol/L Carbon Dioxide 21 L (22-30) mmol/L BUN 42 H (9-20) mg/dL Creatinine 4.47 H (0.66-1.25) mg/dL Glucose 104 H (74-99) mg/dL Calcium 8.7 (8.4-10.2) mg/dL AST 22 (17-59) U/L ALT 27 (4-49) U/L Alkaline Phosphatase 254 H (38-126) U/L Total Protein 6.1 L (6.3-8.2) g/dL Albumin 3.3 L (3.5-5.0) g/dL Calcium panel 09/28/20 Range/Units 07:45 Calcium 8.7 (8.4-10.2) mg/dL Albumin 3.3 L (3.5-5.0) g/dL Pituitary panel 09/28/20 Range/Units 07:45 Sodium 134 L (137-145) mmol/L Potassium 4.2 (3.5-5.1) mmol/L Chloride 101 (98-107) mmol/L Carbon Dioxide 21 L (22-30) mmol/L BUN 42 H (9-20) mg/dL Creatinine 4.47 H (0.66-1.25) mg/dL Glucose 104 H (74-99) mg/dL Calcium 8.7 (8.4-10.2) mg/dL Adrenal panel 09/28/20 Range/Units 07:45 Sodium 134 L (137-145) mmol/L Potassium 4.2 (3.5-5.1) mmol/L Chloride 101 (98-107) mmol/L Carbon Dioxide 21 L (22-30) mmol/L BUN 42 H (9-20) mg/dL Creatinine 4.47 H (0.66-1.25) mg/dL Glucose 104 H (74-99) mg/dL Calcium 8.7 (8.4-10.2) mg/dL Total Bilirubin 0.5 (0.2-1.3) mg/dL AST 22 (17-59) U/L ALT 27 (4-49) U/L Alkaline Phosphatase 254 H (38-126) U/L Total Protein 6.1 L (6.3-8.2) g/dL Albumin 3.3 L (3.5-5.0) g/dL
--- NOTE | 2020-09-28 11:29 | P.PN ---
Subjective Progress Note Date: 09/28/20 This is a 60-year-old male patient of Dr. Mckeon currently residing at [facility] under the care of Dr. Christian with a previous medical history significant for hypertension and hypertensive cardiovascular disease, hyperlipidemia, diabetes mellitus type 2, paroxysmal atrial fibrillation, coronary artery dis ease status post left heart catheterization and PCI of the obtuse marginal branch #1 off the LCx, followed by a recent PCI and stenting of the LAD back in September 2018, end-stage renal disease on hemodialysis Wednesday and Wednesday via left arm fistula, blindness of the right eye as well as left eye legally blind. Patient was hospitalized in April 2020 at which time he was treated for sepsis and MRSA bacteremia of unclear etiology with metabolic encephalopathy vasovagal episode requiring brief CPR and patient was transferred to [facility]. Patient was treated for MRSA osteomyelitis of the lumbar spine. Patient was discharged to [facility] for subacute rehab and was transferred from there yesterday to [facility] emergency center. Patient apparently had emesis after hemodialysis treatment. He was complaining of nausea and easy had decreased oral intake. He is complaining of dizziness. Patient had a drop in his blood pressure and has been refusing all his medications. On examination, patient is complaining of low back pain and has refused MRI of the lumbar spine. Temperature max 100.2, heart rate in the 60s to 80s, blood pressure 106/78, pulse ox 96% on 3 L nasal cannula. WBC 15.8, hemoglobin 11.1, platelet count 146. Sodium 135, potassium 5.0, chloride 94, CO2 22, BUN 19 creatinine 6.03. Blood sugar 236. Lactic acid 1.6. Magnesium 2.3, total bilirubin 0.9, AST 72, ALT 61 alkaline phosphatase 325. LDH 651. C- reactive protein 1.7. Urinalysis cloudy, blood moderate, leukoesterase small, RBCs 9, bacteria rare. Coronavirus PCR not detected. Gallbladder ultrasound reveals correlate for underlying cirrhosis. Hypoechoic appearance may be seen with hepatitis. Mild perihepatic ascites. Status post cholecystectomy. No biliary ductal dilatation. Chest x-ray reveals cardiomegaly and mild pulmonary congestion. Pulmonary vascularity slightly increased compared to old exam. Echocardiogram reveals EF of 55-60% with moderate concentric left ventricular hypertrophy, mild aortic stenosis, mild mitral regurgitation, mild tricuspid re gurgitation, moderate to severe pulmonary hypertension. No mention of vegetation. Patient admitted to the [facility] floor and consults requested with infectious disease and nephrology. 09/21 patient assessed today denies any fever or chills, denies any shortness of breath or breathing difficulty vitals are evaluated nt is afebrile pulse 65 respiratory rate 18 blood pressure 135/81 and oxygen saturation 100% on 2 L. Infectious disease was consulted who recommended nuclear scan increased uptake is noted in the lungs consistent with diffuse nonspecific inflammation process but no suggestion of abscess. Cardiology was consulted for possible YAYO. Patient has persistent MRSA infection and had multiple admissions for it. He was transferred to [facility] who thought patient had MRSA osteomyelitis for which patient has completed treatment. Due to persistent infection, cardiology was consulted. We will discuss with infectious disease for further management 09/22 patient examined bedside. Patient appears significantly heartrate as patient has not slept during the night. Patient is extremely weak and unable to come out of the bed. Detailed discussion with infectious disease and other attendings were done. MRI of the lumbar spine is recommended by Dr. Ardon. Patient is reluctant and refusing to get an MRI. Since patient is drowsy will discuss with the patient again. Vitals were reviewedpatient is afebrile temp 99.4 pulse 65 blood pressure 112/69 and oxygen saturation 96% on 2 L . No recent labs. Stat CBC CMP ordered 09/23: Patient treated for persistent MRSA bacteremia and currently on IV vancomycin dosed by pharmacy. Patient is scheduled for MRI of the lumbar spine and YAYO. Patient has been afebrile, heart rate 63, blood pressure 161/91, pulse ox 99% on 3 L nasal cannula. Repeat blood work reveals WBC 9.4, hemoglobin 9.9, platelet count 131. Sodium 137, potassium 4.7, chloride 104, CO2 19, BUN 72 creatinine 5.68. Blood sugars are running between 97 and 161. Total bilirubin 0.5, AST 51, ALT 73, alkaline phosphates . Vancomycin level XXVIII. 09/24: Patient is undergoing hemodialysis this morning. YAYO has been postponed until today. Case was discussed with Dr. Presley and nephrology and plan is for thoracic MRI with contrast and MRI of the cervical spine and lumbar spine without contrast and last low dose is given for the thoracic and patient is able to tolerate. Patient has been afebrile, heart rate 64, blood pressure 183/84, pulse ox 100% On 3 L nasal cannula. Patient's mentation is not back to normal. Reports from [facility] reveal CAT scan of the spine: 1. Retropharyngeal fluids/phlegmon in the upper neck. Hypodensity seen extending into the right longus coli as well as fluid seen surrounding the C1-C2 articulation suggestive of abscesses. Bacterial versus tuberculosis etiology should be considered. There is thickened epidural soft tissue noted dorsal to the dens. 2. Thoracic spine showed erosive changes of the anterior margin of T8 as well as destruction of the T8-T9 anterior osteophyte concerning for osteomyelitis. 3. Lumbar spine revealed degenerative changes as above with compression of the exiting L5 nerve root on the left. There is demineralization seen involving the anterior superior aspect of L2 corresponding to fluid cortical irregularity on accompanying MRI. This is worrisome for additional area of osteomyelitis. No CT evidence of epidural abscess, acute fracture or s ubluxation. TTE was unremarkable and YAYO was not recommended. Left upper extremity CT with contrast did not show evidence of abscess or thrombus. 09/25: Patient underwent YAYO yesterday with Dr. Bowie the thumb vegetation on the posterior mitral leaflet. There is evidence of at least moderate mitral regurgitation. Aortic sclerosis without stenosis and without insufficiency. No vegetation on the aortic valve. Moderate tricuspid regurgitation. No vegetation on the tricuspid valve. EF 45%. MRI of the cervical spine, thorax is spine and lumbar spine was done with out contrast although it was ordered with contrast dated been coordinated with nephrology. The study revealed limitations of the exam with no evidence of cervical thoracic or lumbar fracture. There is no evidence of spinal stenosis. No evidence of osteomyelitis. No adverse change compared to old exam. Case has been discussed with Dr. Wills and with Dr. Ardon. At this point we will plan to add cardiothoracic surgery consult and Dr. Ardon will talk to pharmacy regarding antibiotics. Patient states that he hated undergoing the MRI and out that he will ever go under another one again. He has been afebrile, heart rate 71, blood pressure 175/77, pulse ox 96% on 4 L. Her blood glucose running between 91 and 108. Patient is undergoing dialysis morning which was ordered to be done after contrast from MRI and nephrology will cancel this and continue his normal schedule of Wednesday. Patient remains lethargic mental status is okay today, less confusion. Cardiothoracic consult will be obtained and further discussion with Dr. Reva Curry regarding antibiotics availability, tomorrow we will plan to contact patient's and updated her regarding plan and options. 09/26: Dr. Presley reviewed MRI with radiologist and there was abscess noted at C1 and C2 which was not described on the MRI report. Etiology has been contacted to update MRI report. Recommendations are for transfer to [facility] and arrangements have been started. Patient has been accepted but no beds are currently available. Both patient and his are agreeable for transfer. Patient has been seen by cardiothoracic surgery. Patient has been afebrile, heart rate 104, blood pressure 143/86, pulse ox 99% on 2 L nasal cannula. Patient is undergoing hemodialysis today. Her blood glucose running between 64 this morning at breakfast to 125. Levemir decreased to 5 units at bedtime. 09/27: Patient remains afebrile, heart rate in the 50s and 60s, blood pressure 174/70, pulse ox 100% on 2 L nasal cannula. Patient remains lethargic. His next dialysis is scheduled for tomorrow. Blood sugars are running between 101 159. Patient is continued on vancomycin. CAT scan of the brain showed no acute intracranial process. Stenosis at the craniovertebral junction. We are waiting for transfer to [facility]. 09/28: Patient remains afebrile, pulse rate 57, respirations 16, blood pressure 135/48, 100% on room air. Patient continues to be lethargic. He is scheduled for dialysis today. Continues on vancomycin. He'll awaiting transfer to [facility]. YAYO shows vegetation on the upstream side of the posterior mitral leaflet REVIEW OF SYSTEMS Constitutional: Noted fever, no chills, no night sweats. No weight change. Reported weakness, reported fatigue Reported lethargy. Reported daytime sleepiness. increased lethargy EENT: No headache. No blurred vision or double vision, no loss of vision. No loss of Hearing, no ringing in the ears, no dizziness. No nasal drainage or congestion. No epistaxis. No sore throat. Lungs: No shortness of breath, cough, no sputum production. No wheezing. Cardiovascular: No chest pain, no lower extremity edema. No palpitations. No paroxysmal nocturnal dyspnea. No orthopnea. No lightheadedness or dizziness. No syncopal episodes. Abdominal: No abdominal pain. Reported nausea and vomiting. No diarrhea. No constipation. No bloody or tarry stools. Reported loss of appetite. Genitourinary: No dysuria, increased frequency, urgency. No urinary retention. Patient makes a small amount of urine. Musculoskeletal: No myalgias. Noted muscle weakness, no gait dysfunction, no frequent falls. Reported back pain. No neck pain. Integumentary: No wounds, no lesions. No rash or pruritus. No unusual bruising. No change in hair or nails. Neurologic: No aphasia. No facial droop. Noted change in mentation-improved today. No head injury. No headache. No paralysis. No paresthesia. Psychiatric: No depression. No anxiety. No mood swings. Endocrine: Noted abnormal blood sugars. No weight change. PHYSICAL EXAMINATION Gen: This is a 60-year-old male patient resting in bed. He is currently re ceiving hemodialysis. He appears to be in no acute distress. HEENT: Head is atraumatic, normocephalic. Pupils equal, round. Sclerae is anicteric. NECK: Supple. No JVD. No lymphadenopathy. No thyromegaly. LUNGS: Clear to auscultation. No wheezes or rhonchi. No intercostal retractions. HEART: Regular rate and rhythm. 2/6 systolic murmur. ABDOMEN: Soft. Bowel sounds are present. No masses. No tenderness. EXTREMITIES: 2+ pedal edema. No calf tenderness. NEUROLOGICAL: Patient is lethargic, he wakens and answers questions. He is oriented 3. Cranial nerves 2 through 12 are grossly intact. ASSESSMENT AND PLAN 1. Sepsis and persistent MRSA bacteremia secondary to mitral valve vegetation, abscess of the C1-C2, history of osteomyelitis of the thoracic spine and lumbar spine. YAYO as above. Dr. Presley is following and recommended transfer to [facility]. Continue vancomycin. 2. Infectious metabolic encephalopathy. Continue as in #1. Hold gabapentin and continue treatment and #1. 3. Complaints of lumbar pain, nausea vomiting and dizziness. Continue Zofran 4 mg IV every 8 hours as needed. 4. Recent treatment for MRSA bacteremia and thoracic lumbar spine osteomyelitis, completed course of antibiotics. 5. End-stage renal disease on hemodialysis. Consult with nephrology appreciated. Continue PhosLo 667 mg 3 times daily, Aranesp 40 g subcu every 7 days, hemodialysis scheduled on Wednesday. 6. Degenerative disc disease and spinal stenosis. Hold gabapentin. Continue baclofen 5 mg every 8 hours as needed. 7. History of coronary artery disease with previous PTCA to LAD and circumflex. Continue aspirin 81 mg daily, atorvastatin 40 mg at bedtime, Lopressor 25 mg twice daily. 8. Paroxysmal atrial fibrillation. Continue eliquis 2.5 mg twice daily, Lopressor, amiodarone 200 mg daily 8. Ischemic cardiomyopathy. Continue Lopressor, Lasix 80 mg twice daily, metolazone 5 mg daily. 9. Diabetes mellitus type 2, insulin requiring, uncontrolled due to hypoglycemia. Continue Levemir decreased to 5 units at bedtime, NovoLog scale before meals and at bedtime, 10. Diabetic neuropathy. Hold gabapentin. 11. Hypertension. Continue hydralazine 25 mg 4 times daily. 12. Anemia of chronic disease. Continue ferrous sulfate 325 mg twice daily, Aranesp 40 g subcu every 7 days. 13. GI prophylaxis. Continue Protonix. 14. DVT prophylaxis. Eliquis DISCHARGE PLAN Transferred to [facility] eventual return to [facility] Impression and plan of care have been directed as dictated by the signing physician. Karina Aponte nurse practitioner acting as scribe for signing physician. Objective - Vital Signs Vital signs: Vital Signs Temp 99.4 F 09/28/20 07:37 Pulse 57 L 09/28/20 07:37 Resp 16 09/28/20 07:37 BP 135/48 09/28/20 07:37 Pulse Ox 100 09/28/20 07:37 Intake & Output 09/27/20 09/28/20 09/28/20 18:59 06:59 18:59 Weight 112.5 kg Other: Voiding Method Diaper Diaper Incontinent Incontinent # Voids 0 0 # Bowel Movements 8 - Labs CBC & Chem 7: 09/23/20 06:43 09/28/20 07:45 Labs: Abnormal Lab Results - Last 24 Hours (Table) 09/27/20 09/27/20 09/28/20 Range/Units 17:00 21:32 06:49 Sodium (137-145) mmol/L Carbon Dioxide (22-30) mmol/L BUN (9-20) mg/dL Creatinine (0.66-1.25) mg/dL Glucose (74-99) mg/dL POC Glucose (mg/dL) 136 H 157 H 106 H (75-99) mg/dL Alkaline Phosphatase (38-126) U/L Total Protein (6.3-8.2) g/dL Albumin (3.5-5.0) g/dL 09/28/20 Range/Units 07:45 Sodium 134 L (137-145) mmol/L Carbon Dioxide 21 L (22-30) mmol/L BUN 42 H (9-20) mg/dL Creatinine 4.47 H (0.66-1.25) mg/dL Glucose 104 H (74-99) mg/dL POC Glucose (mg/dL) (75-99) mg/dL Alkaline Phosphatase 254 H (38-126) U/L Total Protein 6.1 L (6.3-8.2) g/dL Albumin 3.3 L (3.5-5.0) g/dL Microbiology - Last 24 Hours (Table) 09/26/20 07:17 Blood Culture - Preliminary Blood No Growth after 48 hours 09/25/20 06:12 Blood Culture - Preliminary Blood No Growth after 72 hours 09/24/20 17:34 Blood Culture - Preliminary Blood No Growth after 72 hours
[2020-09-28 11:40] LABS: Glucose,Whole Blood 155 mg/dL (75-99)
[2020-09-28 11:53] LABS: HCT 29.4 % (39.6-50.0); HGB 9.2 g/dL (13.0-17.0); MCH 28.8 pg (27.0-32.0); MCHC 31.3 g/dL (32.0-37.0); MCV 92.2 fL (80.0-97.0); Mean Platelet Volume 10.3 fL (9.5-12.2); Platelet Count 177 X 10*3/uL (140-440); RBC 3.19 X 10*6/uL (4.40-5.60); RDW 15.5 % (11.5-14.5); WBC 13.37 X 10*3/uL (4.50-10.00)
[2020-09-28] MEDS: DEXTROSE 5%-0.9% NACL 1,000 ML IV SCH (12:34)
--- NOTE | 2020-09-28 13:28 | PN ---
PROGRESS NOTE Patient is seen for followup for end-stage renal disease. He has MRSA bacteremia and associated mitral valve vegetation. He is currently awaiting transfer to [facility]. PHYSICAL EXAMINATION: On examination today, patient is comfortable. He is sleeping, but arousable. Blood pressure was 135/48, heart rate 57 per minute, he is afebrile. Examination of the heart S1, S2. Examination of the lungs, bilateral breath sounds are heard. Abdomen is soft, nontender. Examination of lower extremities shows edema 1+ bilaterally. LAB: Show sodium 134, potassium 4.2, BUN 42, creatinine 4.47, hemoglobin 9.2 g/dL. ASSESSMENT: 1. End-stage renal disease on hemodialysis on a Wednesday, , Wednesday schedule. Patient will be dialyzed today. 2. MRSA bacteremia associated with mitral valve vegetation. Awaiting transfer to [facility] previous history of spinal abscess. 3. Chronic kidney disease mineral bone disorder. 4. Atrial fibrillation with controlled ventricular response. 5. Volume overload, currently improved. PLAN: Hemodialysis today. Continue antibiotics. MMODL / IJN: [id number] /
--- NOTE | 2020-09-28 16:42 | PN ---
PROGRESS NOTE DATE OF SERVICE: 09/28/2020 REASON FOR FOLLOWUP: MRSA bacteremia, cervical paraspinal abscess and endocarditis. INTERVAL HISTORY: The patient is afebrile. The patient is breathing comfortably. No chest pain, shortness of breath or cough. No abdominal pain or diarrhea. PHYSICAL EXAMINATION: Blood pressure 176/84, pulse of 67, temperature is 97.8. He is 100% on 4 L nasal cannula. General description is a middle-aged male lying in bed in no distress. Respiratory system: Unlabored breathing, clear to auscultation anteriorly. Heart S1, S2. Regular rate and rhythm. Abdomen soft, no tenderness. LABS: Hemoglobin is ( ), white count ( ), creatinine 4.47. Blood culture repeat has been negative so far. DIAGNOSTIC THE PATIENT: Patient with MRSA bacteremia concerning for endocarditis and the cervical paraspinal abscess, waiting for transfer to [facility] for Neurosurgery evaluation. Continue vancomycin and monitor clinical course closely. MMODL / IJN: [id number] /
[2020-09-28] MEDS: ASPIRIN 81 MG PO SCH (16:49)
[2020-09-28] MEDS: MULTIVITAMINS, THERA 1 EACH TAB PO SCH (16:49)
[2020-09-28 17:14] LABS: Glucose,Whole Blood 147 mg/dL (75-99)
[2020-09-28 20:05] LABS: Glucose,Whole Blood 152 mg/dL (75-99)
[2020-09-28] MEDS: ATORVASTATIN 40 MG TAB PO SCH (20:29)
[2020-09-28] MEDS: INSULIN DETEMIR (LEVEMIR) 100 UNIT/ML SYR SQ SCH (20:29)
[2020-09-28] MEDS: MELATONIN 1 MG TAB PO SCH (20:29)
[2020-09-29] MEDS: hydrOXYzine HCL 25 MG TAB PO SCH ×4 (05:52→23:24)
[2020-09-29] MEDS: metOLazone 5 MG TAB PO SCH (05:53)
[2020-09-29] MEDS: FERROUS SULFATE 325 MG TAB PO SCH ×2 (05:53→16:42)
[2020-09-29] MEDS: FUROSEMIDE 80 MG TAB PO SCH ×2 (05:53→16:43)
[2020-09-29 06:39] LABS: Glucose,Whole Blood 140 mg/dL (75-99)
[2020-09-29] MEDS: PANTOPRAZOLE 40 MG TABLET PO SCH (07:49)
[2020-09-29] MEDS: INSULIN ASPART (NovoLOG) 100 UNIT/ML VIAL SQ SCH ×4 (07:49→21:26)
[2020-09-29] MEDS: CALCIUM ACETATE 667 MG TAB PO SCH ×3 (07:49→16:41)
[2020-09-29] MEDS: AMIODARONE 200 MG TAB PO SCH (07:49)
[2020-09-29] MEDS: APIXABAN 2.5 MG TABLET PO SCH ×2 (07:49→16:42)
[2020-09-29] MEDS: CHOLESTYRAMINE (WITH SUGAR) 4 GM PACKET PO SCH ×2 (07:50→16:42)
[2020-09-29] MEDS: MIDODRINE 5 MG TAB PO SCH (07:50)
[2020-09-29] MEDS: METOPROLOL TARTRATE 25 MG TAB PO SCH ×2 (07:50→16:42)
[2020-09-29] MEDS ORDERED: VANCOMYCIN 1,750 MG in SODIUM CHLORIDE 0.9% 500 ML 500 ML IVPB ONE (09:00)
--- NOTE | 2020-09-29 11:28 | P.PN ---
Subjective Progress Note Date: 09/29/20 This is a 60-year-old male patient of Dr. Mckeon currently residing at [facility] under the care of Dr. Christian with a previous medical history significant for hypertension and hypertensive cardiovascular disease, hyperlipidemia, diabetes mellitus type 2, paroxysmal atrial fibrillation, coronary artery dis ease status post left heart catheterization and PCI of the obtuse marginal branch #1 off the LCx, followed by a recent PCI and stenting of the LAD back in September 2018, end-stage renal disease on hemodialysis Wednesday and Wednesday via left arm fistula, blindness of the right eye as well as left eye legally blind. Patient was hospitalized in April 2020 at which time he was treated for sepsis and MRSA bacteremia of unclear etiology with metabolic encephalopathy vasovagal episode requiring brief CPR and patient was transferred to [facility]. Patient was treated for MRSA osteomyelitis of the lumbar spine. Patient was discharged to [facility] for subacute rehab and was transferred from there yesterday to [facility] emergency center. Patient apparently had emesis after hemodialysis treatment. He was complaining of nausea and easy had decreased oral intake. He is complaining of dizziness. Patient had a drop in his blood pressure and has been refusing all his medications. On examination, patient is complaining of low back pain and has refused MRI of the lumbar spine. Temperature max 100.2, heart rate in the 60s to 80s, blood pressure 106/78, pulse ox 96% on 3 L nasal cannula. WBC 15.8, hemoglobin 11.1, platelet count 146. Sodium 135, potassium 5.0, chloride 94, CO2 22, BUN 19 creatinine 6.03. Blood sugar 236. Lactic acid 1.6. Magnesium 2.3, total bilirubin 0.9, AST 72, ALT 61 alkaline phosphatase 325. LDH 651. C- reactive protein 1.7. Urinalysis cloudy, blood moderate, leukoesterase small, RBCs 9, bacteria rare. Coronavirus PCR not detected. Gallbladder ultrasound reveals correlate for underlying cirrhosis. Hypoechoic appearance may be seen with hepatitis. Mild perihepatic ascites. Status post cholecystectomy. No biliary ductal dilatation. Chest x-ray reveals cardiomegaly and mild pulmonary congestion. Pulmonary vascularity slightly increased compared to old exam. Echocardiogram reveals EF of 55-60% with moderate concentric left ventricular hypertrophy, mild aortic stenosis, mild mitral regurgitation, mild tricuspid re gurgitation, moderate to severe pulmonary hypertension. No mention of vegetation. Patient admitted to the [facility] floor and consults requested with infectious disease and nephrology. 09/21 patient assessed today denies any fever or chills, denies any shortness of breath or breathing difficulty vitals are evaluated nt is afebrile pulse 65 respiratory rate 18 blood pressure 135/81 and oxygen saturation 100% on 2 L. Infectious disease was consulted who recommended nuclear scan increased uptake is noted in the lungs consistent with diffuse nonspecific inflammation process but no suggestion of abscess. Cardiology was consulted for possible YAYO. Patient has persistent MRSA infection and had multiple admissions for it. He was transferred to [facility] who thought patient had MRSA osteomyelitis for which patient has completed treatment. Due to persistent infection, cardiology was consulted. We will discuss with infectious disease for further management 09/22 patient examined bedside. Patient appears significantly heartrate as patient has not slept during the night. Patient is extremely weak and unable to come out of the bed. Detailed discussion with infectious disease and other attendings were done. MRI of the lumbar spine is recommended by Dr. Ardon. Patient is reluctant and refusing to get an MRI. Since patient is drowsy will discuss with the patient again. Vitals were reviewedpatient is afebrile temp 99.4 pulse 65 blood pressure 112/69 and oxygen saturation 96% on 2 L . No recent labs. Stat CBC CMP ordered 09/23: Patient treated for persistent MRSA bacteremia and currently on IV vancomycin dosed by pharmacy. Patient is scheduled for MRI of the lumbar spine and YAYO. Patient has been afebrile, heart rate 63, blood pressure 161/91, pulse ox 99% on 3 L nasal cannula. Repeat blood work reveals WBC 9.4, hemoglobin 9.9, platelet count 131. Sodium 137, potassium 4.7, chloride 104, CO2 19, BUN 72 creatinine 5.68. Blood sugars are running between 97 and 161. Total bilirubin 0.5, AST 51, ALT 73, alkaline phosphates . Vancomycin level XXVIII. 09/24: Patient is undergoing hemodialysis this morning. YAYO has been postponed until today. Case was discussed with Dr. Presley and nephrology and plan is for thoracic MRI with contrast and MRI of the cervical spine and lumbar spine without contrast and last low dose is given for the thoracic and patient is able to tolerate. Patient has been afebrile, heart rate 64, blood pressure 183/84, pulse ox 100% On 3 L nasal cannula. Patient's mentation is not back to normal. Reports from [facility] reveal CAT scan of the spine: 1. Retropharyngeal fluids/phlegmon in the upper neck. Hypodensity seen extending into the right longus coli as well as fluid seen surrounding the C1-C2 articulation suggestive of abscesses. Bacterial versus tuberculosis etiology should be considered. There is thickened epidural soft tissue noted dorsal to the dens. 2. Thoracic spine showed erosive changes of the anterior margin of T8 as well as destruction of the T8-T9 anterior osteophyte concerning for osteomyelitis. 3. Lumbar spine revealed degenerative changes as above with compression of the exiting L5 nerve root on the left. There is demineralization seen involving the anterior superior aspect of L2 corresponding to fluid cortical irregularity on accompanying MRI. This is worrisome for additional area of osteomyelitis. No CT evidence of epidural abscess, acute fracture or s ubluxation. TTE was unremarkable and YAYO was not recommended. Left upper extremity CT with contrast did not show evidence of abscess or thrombus. 09/25: Patient underwent YAYO yesterday with Dr. Bowie the thumb vegetation on the posterior mitral leaflet. There is evidence of at least moderate mitral regurgitation. Aortic sclerosis without stenosis and without insufficiency. No vegetation on the aortic valve. Moderate tricuspid regurgitation. No vegetation on the tricuspid valve. EF 45%. MRI of the cervical spine, thorax is spine and lumbar spine was done with out contrast although it was ordered with contrast dated been coordinated with nephrology. The study revealed limitations of the exam with no evidence of cervical thoracic or lumbar fracture. There is no evidence of spinal stenosis. No evidence of osteomyelitis. No adverse change compared to old exam. Case has been discussed with Dr. Wills and with Dr. Ardon. At this point we will plan to add cardiothoracic surgery consult and Dr. Ardon will talk to pharmacy regarding antibiotics. Patient states that he hated undergoing the MRI and out that he will ever go under another one again. He has been afebrile, heart rate 71, blood pressure 175/77, pulse ox 96% on 4 L. Her blood glucose running between 91 and 108. Patient is undergoing dialysis morning which was ordered to be done after contrast from MRI and nephrology will cancel this and continue his normal schedule of Wednesday. Patient remains lethargic mental status is okay today, less confusion. Cardiothoracic consult will be obtained and further discussion with Dr. Reva Curry regarding antibiotics availability, tomorrow we will plan to contact patient's and updated her regarding plan and options. 09/26: Dr. Presley reviewed MRI with radiologist and there was abscess noted at C1 and C2 which was not described on the MRI report. Etiology has been contacted to update MRI report. Recommendations are for transfer to [facility] and arrangements have been started. Patient has been accepted but no beds are currently available. Both patient and his are agreeable for transfer. Patient has been seen by cardiothoracic surgery. Patient has been afebrile, heart rate 104, blood pressure 143/86, pulse ox 99% on 2 L nasal cannula. Patient is undergoing hemodialysis today. Her blood glucose running between 64 this morning at breakfast to 125. Levemir decreased to 5 units at bedtime. 09/27: Patient remains afebrile, heart rate in the 50s and 60s, blood pressure 174/70, pulse ox 100% on 2 L nasal cannula. Patient remains lethargic. His next dialysis is scheduled for tomorrow. Blood sugars are running between 101 159. Patient is continued on vancomycin. CAT scan of the brain showed no acute intracranial process. Stenosis at the craniovertebral junction. We are waiting for transfer to [facility]. 09/28: Patient remains afebrile, pulse rate 57, respirations 16, blood pressure 135/48, 100% on room air. Patient continues to be lethargic. He is scheduled for dialysis today. Continues on vancomycin. He'll awaiting transfer to [facility]. YAYO shows vegetation on the upstream side of the posterior mitral leaflet 09/29: Patient is still waiting transferred to [facility]. At this time there is still no beds available. Patient is less lethargic today compared to yesterday she is alert and able to answer questions appropriately. Patient is found sitting up in bed in no acute distress. Patient states that he is feeling better compared to yesterday. She remains afebrile, pulse rate 69, blood pressure 122/42, pulse ox 100% on room air. REVIEW OF SYSTEMS Constitutional: Noted fever, no chills, no night sweats. No weight change. Reported weakness, reported fatigue Reported lethargy. Reported daytime sleepiness. increased lethargy EENT: No headache. No blurred vision or double vision, no loss of vision. No loss of Hearing, no ringing in the ears, no dizziness. No nasal drainage or congestion. No epistaxis. No sore throat. Lungs: No shortness of breath, cough, no sputum production. No wheezing. Cardiovascular: No chest pain, no lower extremity edema. No palpitations. No paroxysmal nocturnal dyspnea. No orthopnea. No lightheadedness or dizziness. No syncopal episodes. Abdominal: No abdominal pain. Reported nausea and vomiting. No diarrhea. No constipation. No bloody or tarry stools. Reported loss of appetite. Genitourinary: No dysuria, increased frequency, urgency. No urinary retention. Patient makes a small amount of urine. Musculoskeletal: No myalgias. Noted muscle weakness, no gait dysfunction, no frequent falls. Reported back pain. No neck pain. Integumentary: No wounds, no lesions. No rash or pruritus. No unusual bruising. No change in hair or nails. Neurologic: No aphasia. No facial droop. Noted change in mentation-improved today. No head injury. No headache. No paralysis. No paresthesia. Psychiatric: No depression. No anxiety. No mood swings. Endocrine: Noted abnormal blood sugars. No weight change. PHYSICAL EXAMINATION Gen: This is a 60-year-old male patient resting in bed. He is currently receiving hemodialysis. He appears to be in no acute distress. HEENT: Head is atraumatic, normocephalic. Pupils equal, round. Sclerae is anicteric. NECK: Supple. No JVD. No lymphadenopathy. No thyromegaly. LUNGS: Clear to auscultation. No wheezes or rhonchi. No intercostal retractions. HEART: Regular rate and rhythm. 2/6 systolic murmur. ABDOMEN: Soft. Bowel sounds are present. No masses. No tenderness. EXTREMITIES: 2+ pedal edema. No calf tenderness. NEUROLOGICAL: Patient is lethargic, he wakens and answers questions. He is oriented 3. Cranial nerves 2 through 12 are grossly intact. ASSESSMENT AND PLAN 1. Sepsis and persistent MRSA bacteremia secondary to mitral valve vegetation, abscess of the C1-C2, history of osteomyelitis of the thoracic spine and lumbar spine. YAYO as above. Dr. Presley is following and recommended transfer to [facility]. Continue vancomycin. 2. Infectious metabolic encephalopathy. Continue as in #1. Hold gabapentin and continue treatment and #1. 3. Complaints of lumbar pain, nausea vomiting and dizziness. Continue Zofran 4 mg IV every 8 hours as needed. 4. Recent treatment for MRSA bacteremia and thoracic lumbar spine osteomyelitis, completed course of antibiotics. 5. End-stage renal disease on hemodialysis. Consult with nephrology appreciated. Continue PhosLo 667 mg 3 times daily, Aranesp 40 g subcu every 7 days, hemodialysis scheduled on Wednesday. 6. Degenerative disc disease and spinal stenosis. Hold gabapentin. Continue baclofen 5 mg every 8 hours as needed. 7. History of coronary artery disease with previous PTCA to LAD and circumflex. Continue aspirin 81 mg daily, atorvastatin 40 mg at bedtime, Lopressor 25 mg twice daily. 8. Paroxysmal atrial fibrillation. Continue eliquis 2.5 mg twice daily, Lopressor, amiodarone 200 mg daily 8. Ischemic cardiomyopathy. Continue Lopressor, Lasix 80 mg twice daily, metolazone 5 mg daily. 9. Diabetes mellitus type 2, insulin requiring, uncontrolled due to hypoglycemia. Continue Levemir decreased to 5 units at bedtime, NovoLog scale before meals and at bedtime, 10. Diabetic neuropathy. Hold gabapentin. 11. Hypertension. Continue hydralazine 25 mg 4 times daily. 12. Anemia of chronic disease. Continue ferrous sulfate 325 mg twice daily, Aranesp 40 g subcu every 7 days. 13. GI prophylaxis. Continue Protonix. 14. DVT prophylaxis. Oleg DISCHARGE PLAN Transferred to [facility] eventual return to [facility] Impression and plan of care have been directed as dictated by the signing physician. Karina Aponte nurse practitioner acting as scribe for signing physician. Objective - Vital Signs Vital signs: Vital Signs Temp 98.2 F 09/29/20 07:03 Pulse 59 L 09/29/20 07:03 Resp 17 09/29/20 07:03 BP 195/72 09/29/20 07:03 Pulse Ox 93 L 09/29/20 07:03 Intake & Output 09/28/20 09/29/20 09/29/20 18:59 06:59 18:59 Intake Total 300 840 Output Total 3000 Balance -2700 840 Intake: Intake, IV Titration 240 Amount IV Fluid Continuation 1, 240 000 ml @ 0 mls/hr IV .STK -MED ONE Rx#:[id number] Oral 300 600 Output: Hemodialysis 3000 - Labs CBC & Chem 7: 09/28/20 07:45 09/28/20 07:45 Labs: Abnormal Lab Results - Last 24 Hours (Table) 09/28/20 09/28/20 09/28/20 Range/Units 07:45 11:38 17:11 WBC 13.37 H (4.50-10.00) X 10*3/uL RBC 3.19 L (4.40-5.60) X 10*6/uL Hgb 9.2 L (13.0-17.0) g/dL Hct 29.4 L (39.6-50.0) % MCHC 31.3 L (32.0-37.0) g/dL RDW 15.5 H (11.5-14.5) % POC Glucose (mg/dL) 155 H 147 H (75-99) mg/dL 09/28/20 09/29/20 Range/Units 20:04 06:37 WBC (4.50-10.00) X 10*3/uL RBC (4.40-5.60) X 10*6/uL Hgb (13.0-17.0) g/dL Hct (39.6-50.0) % MCHC (32.0-37.0) g/dL RDW (11.5-14.5) % POC Glucose (mg/dL) 152 H 140 H (75-99) mg/dL Microbiology - Last 24 Hours (Table) 09/26/20 07:17 Blood Culture - Preliminary Blood No Growth after 72 hours 09/25/20 06:12 Blood Culture - Preliminary Blood No Growth after 96 hours 09/24/20 17:34 Blood Culture - Preliminary Blood No Growth after 96 hours
[2020-09-29 11:45] LABS: Glucose,Whole Blood 173 mg/dL (75-99)
[2020-09-29] MEDS: DEXTROSE 5%-0.9% NACL 1,000 ML IV SCH (12:27)
--- NOTE | 2020-09-29 12:28 | PN ---
PROGRESS NOTE Patient is seen for followup for end-stage renal disease. This morning patient is sitting up in bed. He is comfortable. Denies any significant complaints. He had hemodialysis yesterday with 3 L of ultrafiltration. EXAMINATION: Today patient is comfortable awake. Blood pressure was elevated 195/72, however, previously was 122/42; heart rate 59 per minute, he is afebrile. Examination of the heart S1, S2. Examination of the lungs, decreased breath sounds at the bases. Abdomen is soft, nontender. Examination lower extremities shows edema 1+ bilaterally. [employer] exam grossly intact. LAB: Show sodium 134 on 09/28/2020, potassium 4.2, hemoglobin 9.2 g/dL. ASSESSMENT: 1. End-stage renal disease, on hemodialysis on a Wednesday, , Wednesday schedule. Patient will be dialyzed on Wednesday. 2. MRSA bacteremia associated mitral valve vegetation with previous spinal abscess. 3. Chronic kidney disease mineral bone disorder. 4. Atrial fibrillation. PLAN: Continue antibiotics per ID. Awaiting transfer to [facility]. MMODL / IJN: [id number] /
--- NOTE | 2020-09-29 13:24 | P.PN ---
Subjective Progress Note Date: 09/29/20 HISTORY OF PRESENT ILLNESS: Patient is a pleasant 60-year-old male with history of end-stage renal disease on hemodialysis, coronary artery disease status post PCI of the circumflex and LAD in September 2018, paroxysmal atrial fibrillation, diabetes mellitus, hypertension, dyslipidemia and MRSA bacteremia who presents secondary to fevers. Patient normally follows with Dr. Bowie. He was having altered mental status and therefore presented to Hospital and was found to be febrile with leukocytosis and blood cultures were 2 of 2 positive for MRSA bacteremia. He does have a history of prior bacteremia in April 2020 and was given prolonged antibiotic treatment. He denies any chest pain or pressure. He states that normally with his MIs he more so just isn't acting right. States he feels back to normal in terms of his confusion and the blood cultures have been clear with no growth to date to of the last 2. He does get headaches and currently has his face under a blanket. Denies any shortness breath. We were asked to evaluate for possible YAYO to rule out endocarditis. 2-D echo was performed 09/19/2020 which shows normal ejection fraction 55-60%, mild aortic stenosis, mild mitral regurgitation and no other significant valvular disease with RVSP of 57. 09/22 Patient seen and examined. Patient denies any chest pain or shortness breath. He states he does have some anxiety which she normally takes Ativan for. He did have dialysis yesterday. 3 L taken off. 09/23/2020 Patient examined at the bedside with Dr. Wills. Patient denies chest pain or pressure. He denies shortness of breath. Vital signs are stable. 09/24/2020 Patient examined at the bedside with Dr. Wills. Patient remains lethargic. He denies chest pain or pressure. He reports he is short of breath but states it is unchanged from yesterday. Patient underwent YAYO today with Dr. Bowie revealing vegetation on the posterior leaflet of the mitral valve with mitral regurgitation. He is being followed by infectious disease. 09/25/2020 Patient is s/p YAYO revealing vegetation on the posterior leaflet of the mitral valve. CTS has been consulted for further evaluation. Patient underwent MRI wit hout contrast yesterday revealing no evidence of cervical thoracic or lumbar fracture. No evidence of significant spinal stenosis. No evidence of osteomyelitis. No changes compared to old exam. Infectious disease is following. He is receiving antibiotics. 09/27/2020 Patient examined this morning at the bedside. Patient is more alert today compared to earlier this week. He denies chest pain or pressure. Reports mild shortness of breath. He is awaiting a bed at [facility]. 09/28/2020 Patient examined at the bedside. Patient denies chest pain or pressure. Reports mild SOB. Vital signs are stable. He is awaiting a bed at [facility]. 09/29/2020 Patient examined at the bedside. Patient denies chest pain or pressure. Reports mild SOB. Vital signs are stable. He is awaiting a bed at [facility]. Patient underwent hemodialysis yesterday. PHYSICAL EXAM: VITAL SIGNS: Reviewed. GENERAL: Well-developed in no acute distress. NECK: Supple. No JVD or thyromegaly LUNGS: Respirations even and unlabored. Lungs diminished bilaterally. HEART: Regular rate and rhythm. S1 and S2 heard. Systolic murmur noted. EXTREMITIES: Normal range of motion. No clubbing or cyanosis. Peripheral pulses intact. 1-2+ bilateral lower extremity edema ASSESSMENT: MRSA bacteremia Endocarditis, s/p YAYO 09/24/2020 Osteomyelitis of thoracic spine, possible lumbar spine and cervical spine abscess (Per HF records) End-stage renal disease Coronary artery disease status post stenting 2019 Paroxysmal atrial fibrillation Hypertension Hyperlipidemia History of MRSA bacteremia Diabetes PLAN: Antibiotic management per ID Patient is awaiting a bed at [facility] Nurse practitioner note has been reviewed by physician. Signing provider agrees with the documented findings, assessment, and plan of care. Objective - Vital Signs Vital signs: Vital Signs Temp 98.2 F 09/29/20 07:03 Pulse 59 L 09/29/20 07:03 Resp 17 09/29/20 07:03 BP 195/72 09/29/20 07:03 Pulse Ox 93 L 09/29/20 07:03 Intake & Output 09/28/20 09/29/20 09/29/20 18:59 06:59 18:59 Intake Total 300 840 Output Total 3000 Balance -2700 840 Intake: Intake, IV Titration 240 Amount IV Fluid Continuation 1, 240 000 ml @ 0 mls/hr IV .STK -MED ONE Rx#:[id number] Oral 300 600 Output: Hemodialysis 3000 - Labs CBC & Chem 7: 09/28/20 07:45 09/28/20 07:45 Labs: Abnormal Lab Results - Last 24 Hours (Table) 09/28/20 09/28/20 09/29/20 Range/Units 17:11 20:04 06:37 POC Glucose (mg/dL) 147 H 152 H 140 H (75-99) mg/dL 09/29/20 Range/Units 11:39 POC Glucose (mg/dL) 173 H (75-99) mg/dL Microbiology - Last 24 Hours (Table) 09/26/20 07:17 Blood Culture - Preliminary Blood No Growth after 72 hours 09/25/20 06:12 Blood Culture - Preliminary Blood No Growth after 96 hours 09/24/20 17:34 Blood Culture - Preliminary Blood No Growth after 96 hours
[2020-09-29] MEDS: MULTIVITAMINS, THERA 1 EACH TAB PO SCH (16:41)
[2020-09-29] MEDS: ASPIRIN 81 MG PO SCH (16:42)
[2020-09-29] MEDS: hydrALAZINE HCL 25 MG TAB PO PRN (16:54)
[2020-09-29 17:01] LABS: Glucose,Whole Blood 150 mg/dL (75-99)
--- NOTE | 2020-09-29 18:23 | PN ---
PROGRESS NOTE DATE OF SERVICE: 09/29/2020. REASON FOR FOLLOWUP: MRSA bacteremia and endocarditis and cervical paraspinal abscess. INTERVAL HISTORY: The patient is afebrile. The patient is breathing comfortably. Denies having any chest pain. No shortness of breath or cough. No abdominal pain. No diarrhea. More awake and alert today. PHYSICAL EXAMINATION: Blood pressure 195/72 with a pulse of 59, temperature 98.2. He is 93% on room air. General description is a middle-aged male up in the bed in no distress. Respiratory system: Unlabored breathing, clear to auscultation anteriorly. Heart S1, S2. Regular rate and rhythm. Abdomen soft, no tenderness. LABS: 16.3. Blood culture repeat has been negative. DIAGNOSTIC IMPRESSION AND PLAN: Patient with MRSA bacteremia. Source is endocarditis and cervical paraspinal abscess. Patient currently waiting for transfer to tertiary care for further management of his abscess and continue with supportive care. Questions and concerns were answered. MMODL / IJN: [id number] /
[2020-09-29 21:18] LABS: Glucose,Whole Blood 132 mg/dL (75-99)
[2020-09-29] MEDS: ATORVASTATIN 40 MG TAB PO SCH (21:27)
[2020-09-29] MEDS: INSULIN DETEMIR (LEVEMIR) 100 UNIT/ML SYR SQ SCH (21:27)
[2020-09-29 21:34] VITALS: RESP 18
[2020-09-29] MEDS: MELATONIN 1 MG TAB PO SCH (23:25)
[2020-09-30] MEDS: ALPRAZolam 0.25 MG TAB PO PRN (00:06)
[2020-09-30] MEDS: DEXTROSE 5%-0.9% NACL 1,000 ML IV SCH (04:24)
[2020-09-30] MEDS: hydrOXYzine HCL 25 MG TAB PO SCH ×2 (05:40→13:44)
[2020-09-30] MEDS: FERROUS SULFATE 325 MG TAB PO SCH (05:41)
[2020-09-30] MEDS: metOLazone 5 MG TAB PO SCH (06:03)
[2020-09-30] MEDS: FUROSEMIDE 80 MG TAB PO SCH (06:03)
[2020-09-30 07:04] LABS: Glucose,Whole Blood 172 mg/dL (75-99)
[2020-09-30] MEDS: APIXABAN 2.5 MG TABLET PO SCH (08:12)
[2020-09-30] MEDS: AMIODARONE 200 MG TAB PO SCH (08:12)
[2020-09-30] MEDS: PANTOPRAZOLE 40 MG TABLET PO SCH (08:13)
[2020-09-30] MEDS: CHOLESTYRAMINE (WITH SUGAR) 4 GM PACKET PO SCH (08:13)
[2020-09-30] MEDS: METOPROLOL TARTRATE 25 MG TAB PO SCH (08:13)
[2020-09-30] MEDS: CALCIUM ACETATE 667 MG TAB PO SCH ×2 (08:13→13:44)
[2020-09-30] MEDS: INSULIN ASPART (NovoLOG) 100 UNIT/ML VIAL SQ SCH ×2 (08:14→12:14)
[2020-09-30] MEDS: MIDODRINE 5 MG TAB PO SCH (08:25)
[2020-09-30 11:28] LABS: Glucose,Whole Blood 121 mg/dL (75-99)
--- NOTE | 2020-09-30 12:19 | P.TRANS ---
Providers Date of admission: 09/19/20 05:54 Expected date of discharge: 09/30/20 Attending physician: Perry Christian Consults: 09/19/20 05:53 Consult Physician Routine Consulting Provider: Janine Nguyen Consult Reason/Comments: renalFail Do you want consulting provider notified?: Yes 09/19/20 09:20 Consult Physician Routine Consulting Provider: Tio Presley Consult Reason/Comments: sepsis Do you want consulting provider notified?: Yes 09/25/20 09:53 Consult Physician Routine Consulting Provider: Andry Bowie Consult Reason/Comments: YAYO Do you want consulting provider notified?: Already Contacted 09/25/20 10:38 Consult Physician Routine Consulting Provider: Naima Pritchard Consult Reason/Comments: vegetation Do you want consulting provider notified?: Yes 09/26/20 12:26 Consult Physician Routine Consulting Provider: Joseph Santizo Consult Reason/Comments: determine if AV fistula contains graft material Do you want consulting provider notified?: Already Contacted Primary care physician: Ten Mckeon [place] [facility] Course: This is a 60-year-old male patient of Dr. Mckeon currently residing at [facility] under the care of Dr. 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 Patient was hospitalized in April 2020 at which time he was treated for sepsis and MRSA bacteremia of unclear etiology with metabolic encephalopathy vasovagal episode requiring brief CPR and patient was transferred to [facility]. Patient was treated for MRSA osteomyelitis of the lumbar spine. Patient was discharged to [facility] for subacute rehab and was transferred from there yesterday to [facility] emergency center. Patient apparently had emesis after hemodialysis treatment. He was complaining of cary sea and easy had decreased oral intake. He is complaining of dizziness. Patient had a drop in his blood pressure and has been refusing all his medications. On examination, patient is complaining of low back pain and has refused MRI of the lumbar spine. Temperature max 100.2, heart rate in the 60s to 80s, blood pressure 106/78, pulse ox 96% on 3 L nasal cannula. WBC 15.8, hemoglobin 11.1, platelet count 146. Sodium 135, potassium 5.0, chloride 94, CO2 22, BUN 19 creatinine 6.03. Blood sugar 236. Lactic acid 1.6. Magnesium 2.3, total bilirubin 0.9, AST 72, ALT 61 alkaline phosphatase 325. LDH 651. C- reactive protein 1.7. Urinalysis cloudy, blood moderate, leukoesterase small, RBCs 9, bacteria rare. Coronavirus PCR not detected. Gallbladder ultrasound reveals correlate for underlying cirrhosis. Hypoechoic appearance may be seen with hepatitis. Mild perihepatic ascites. Status post cholecystectomy. No biliary ductal dilatation. Chest x-ray reveals cardiomegaly and mild pulmonary congestion. Pulmonary vascularity slightly increased compared to old exam. Echocardiogram reveals EF of 55-60% with moderate concentric left ventricular hypertrophy, mild aortic stenosis, mild mitral regurgitation, mild tricuspid regurgitation, moderate to severe pulmonary hypertension. No mention of vegetation. [facility] floor and consults requested with infectious disease and nephrology. 09/21 patient assessed today denies any fever or chills, denies any shortness of breath or breathing difficulty vitals are evaluated nt is afebrile pulse 65 respiratory rate 18 blood pressure 135/81 and oxygen saturation 100% on 2 L. Infectious disease was consulted who recommended nuclear scan increased uptake is noted in the lungs consistent with diffuse nonspecific inflammation process but no suggestion of abscess. Cardiology was consulted for possible YAYO. Patient has persistent MRSA infection and had multiple admissions for it. He was transferred to [facility] who thought patient had MRSA osteomyelitis for which patient has completed treatment. Due to persistent infection, cardiology was consulted. We will discuss with infectious disease for further management 09/22 patient examined bedside. Patient appears significantly heartrate as patient has not slept during the night. Patient is extremely weak and unable to come out of the bed. Detailed discussion with infectious disease and other attendings were done. MRI of the lumbar spine is recommended by Dr. Ardon. Patient is reluctant and refusing to get an MRI. Since patient is drowsy will discuss with the patient again. Vitals were reviewedpatient is afebrile temp 99.4 pulse 65 blood pressure 112/69 and oxygen saturation 96% on 2 L . No recent labs. Stat CBC CMP ordered 09/23: Patient treated for persistent MRSA bacteremia and currently on IV vancomycin dosed by pharmacy. Patient is scheduled for MRI of the lumbar spine and YAYO. Patient has been afebrile, heart rate 63, blood pressure 161/91, pulse ox 99% on 3 L nasal cannula. Repeat blood work reveals WBC 9.4, hemoglobin 9.9, platelet count 131. Sodium 137, potassium 4.7, chloride 104, CO2 19, BUN 72 creatinine 5.68. Blood sugars are running between 97 and 161. Total bilirubin 0.5, AST 51, ALT 73, alkaline phosphates . Vancomycin level XXVIII. 09/24: Patient is undergoing hemodialysis this morning. YAYO has been postponed until today. Case was discussed with Dr. Presley and nephrology and plan is for thoracic MRI with contrast and MRI of the cervical spine and lumbar spine without contrast and last low dose is given for the thoracic and patient is able to tolerate. Patient has been afebrile, heart rate 64, blood pressure 183/84, pulse ox 100% On 3 L nasal cannula. Patient's mentation is not back to normal. Reports from [facility] reveal CAT scan of the spine: 1. Retropharyngeal fluids/phlegmon in the upper neck. Hypodensity seen extending into the right longus coli as well as fluid seen surrounding the C1-C2 articulation suggestive of abscesses. Bacterial versus tuberculosis etiology should be considered. There is thickened epidural soft tissue noted dorsal to the dens. 2. Thoracic spine showed erosive changes of the anterior margin of T8 as well as destruction of the T8-T9 anterior osteophyte concerning for osteomyelitis. 3. Lumbar spine revealed degenerative changes as above with compression of the exiting L5 nerve root on the left. There is demineralization seen involving the anterior superior aspect of L2 corresponding to fluid cortical irregularity on accompanying MRI. This is worrisome for additional area of osteomyelitis. No CT evidence of epidural abscess, acute fracture or subluxation. TTE was unremarkable and YAYO was not recommended. Left upper extremity CT with contrast did not show evidence of abscess or thrombus. 09/25: Patient underwent YYAO yesterday with Dr. Bowie the thumb vegetation on the posterior mitral leaflet. There is evidence of at least moderate mitral regurgitation. Aortic sclerosis without stenosis and without insufficiency. No vegetation on the aortic valve. Moderate tricuspid regurgitation. No veg etation on the tricuspid valve. EF 45%. MRI of the cervical spine, thorax is spine and lumbar spine was done with out contrast although it was ordered with contrast dated been coordinated with nephrology. The study revealed limitations of the exam with no evidence of cervical thoracic or lumbar fracture. There is no evidence of spinal stenosis. No evidence of osteomyelitis. No adverse change compared to old exam. Case has been discussed with Dr. Wills and with Dr. Ardon. At this point we will plan to add cardiothoracic surgery consult and Dr. Ardon will talk to pharmacy regarding antibiotics. Patient states that he hated undergoing the MRI and out that he will ever go under another one again. He has been afebrile, heart rate 71, blood pressure 175/77, pulse ox 96% on 4 L. Her blood glucose running between 91 and 108. Patient is undergoing dialysis morning which was ordered to be done after contrast from MRI and nephrology will cancel this and continue his normal schedule of Wednesday. Patient remains lethargic mental status is okay today, less confusion. Cardiothoracic consult will be obtained and further discussion with Dr. Ardon Antoinette regarding antibiotics availability, tomorrow we will plan to contact patient's and updated her regarding plan and options. 09/26: Dr. Presley reviewed MRI with radiologist and there was abscess noted at C1 and C2 which was not described on the MRI report. Etiology has been contacted to update MRI report. Recommendations are for transfer to [facility] and arrangements have been started. Patient has been accepted but no beds are currently available. Both patient and his are agreeable for transfer. Patient has been seen by cardiothoracic surgery. Patient has been afebrile, heart rate 104, blood pressure 143/86, pulse ox 99% on 2 L nasal cannula. Patient is undergoing hemodialysis today. Her blood glucose running between 64 this morning at breakfast to 125. Levemir decreased to 5 units at bedtime. 09/27: Patient remains afebrile, heart rate in the 50s and 60s, blood pressure 174/70, pulse ox 100% on 2 L nasal cannula. Patient remains lethargic. His next dialysis is scheduled for tomorrow. Blood sugars are running between 101 159. Patient is continued on vancomycin. CAT scan of the brain showed no acute intracranial process. Stenosis at the craniovertebral junction. We are waiting for transfer to [facility]. 09/28: Patient remains afebrile, pulse rate 57, respirations 16, blood pressure 135/48, 100% on room air. Patient continues to be lethargic. He is scheduled for dialysis today. Continues on vancomycin. He'll awaiting transfer to [facility]. YAYO shows vegetation on the upstream side of the posterior mitral leaflet 09/29: Patient is still waiting transferred to [facility]. At this time there is still no beds available. Patient is less lethargic today compared to yesterday she is alert and able to answer questions appropriately. Patient is found sitting up in bed in no acute distress. Patient states that he is feeling better compared to yesterday. She remains afebrile, pulse rate 69, blood pressure 122/42, pulse ox 100% on room air. REVIEW OF SYSTEMS Constitutional: Noted fever, no chills, no night sweats. No weight change. Reported weakness, reported fatigue Reported lethargy. Reported daytime sleepiness. increased lethargy EENT: No headache. No blurred vision or double vision, no loss of vision. No loss of Hearing, no ringing in the ears, no dizziness. No nasal drainage or congestion. No epistaxis. No sore throat. Lungs: No shortness of breath, cough, no sputum production. No wheezing. Cardiovascular: No chest pain, no lower extremity edema. No palpitations. No paroxysmal nocturnal dyspnea. No orthopnea. No lightheadedness or dizziness. No syncopal episodes. Abdominal: No abdominal pain. Reported nausea and vomiting. No diarrhea. No constipation. No bloody or tarry stools. Reported loss of appetite. Genitourinary: No dysuria, increased frequency, urgency. No urinary retention. Patient makes a small amount of urine. Musculoskeletal: No myalgias. Noted muscle weakness, no gait dysfunction, no frequent falls. Reported back pain. No neck pain. Integumentary: No wounds, no lesions. No rash or pruritus. No unusual bruising. No change in hair or nails. Neurologic: No aphasia. No facial droop. Noted change in mentation-improved today. No head injury. No headache. No paralysis. No paresthesia. Psychiatric: No depression. No anxiety. No mood swings. Endocrine: Noted abnormal blood sugars. No weight change. PHYSICAL EXAMINATION Gen: This is a 60-year-old male patient resting in bed. He is currently receiving hemodialysis. He appears to be in no acute distress. HEENT: Head is atraumatic, normocephalic. Pupils equal, round. Sclerae is anicteric. NECK: Supple. No JVD. No lymphadenopathy. No thyromegaly. LUNGS: Clear to auscultation. No wheezes or rhonchi. No intercostal retractions. HEART: Regular rate and rhythm. 2/6 systolic murmur. ABDOMEN: Soft. Bowel sounds are present. No masses. No tenderness. EXTREMITIES: 2+ pedal edema. No calf tenderness. NEUROLOGICAL: Patient is lethargic, he wakens and answers questions. He is oriented 3. Cranial nerves 2 through 12 are grossly intact. ASSESSMENT AND PLAN 1. Sepsis and persistent MRSA bacteremia secondary to mitral valve vegetation, paraspinal abscess of the C1-C2, history of osteomyelitis of the thoracic spine and lumbar spine. YAYO as above. Dr. Presley is following and recommended transfer to tertiary care patient is currently on vancomycin dosed by pharmacy. 2. Infectious metabolic encephalopathy. Continue as in #1. Hold gabapentin and continue treatment and #1. 3. Complaints of lumbar pain, nausea vomiting and dizziness. Continue Zofran 4 mg IV every 8 hours as needed. 4. Recent treatment for MRSA bacteremia and thoracic lumbar spine osteomyelitis at [facility], completed course of antibiotics. 5. End-stage renal disease on hemodialysis. Consult with nephrology appreciated. Continue PhosLo 667 mg 3 times daily, Aranesp 40 g subcu every 7 days, hemodialysis scheduled on Wednesday. 6. Degenerative disc disease and spinal stenosis. Hold gabapentin. Continue baclofen 5 mg every 8 hours as needed. 7. History of coronary artery disease with previous PTCA to LAD and circumflex. Continue aspirin 81 mg daily, atorvastatin 40 mg at bedtime, Lopressor 25 mg twice daily. 8. Paroxysmal atrial fibrillation. Continue eliquis 2.5 mg twice daily, Lopressor, amiodarone 200 mg daily 8. Ischemic cardiomyopathy. Continue Lopressor, Lasix 80 mg twice daily, metolazone 5 mg daily. 9. Diabetes mellitus type 2, insulin requiring, uncontrolled due to hypoglycemia. Continue Levemir decreased to 5 units at bedtime, NovoLog scale before meals and at bedtime, 10. Diabetic neuropathy. Hold gabapentin. 11. Hypertension. Continue hydralazine 25 mg 4 times daily as needed. 12. Anemia of chronic disease. Continue ferrous sulfate 325 mg twice daily, Aranesp 40 g subcu every 7 days. 13. GI prophylaxis. Continue Protonix. 14. DVT prophylaxis. Eliquis DISCHARGE PLAN Transferred to [facility] and eventual return to [facility] Impression and plan of care have been directed as dictated by the signing physician. Katelyn Wesley nurse practitioner acting as scribe for signing physician. Patient Condition at Discharge: Stable Plan - Transfer Summary Transfer Medications: Active Medications Generic Name Dose Route Start Last Admin Trade Name Freq PRN Reason Stop Dose Admin Acetaminophen 650 mg 09/19/20 05:51 09/20/20 07:42 Acetaminophen Tab 325 Mg Tab PO 650 mg Q6HR PRN Administration Mild Pain or Fever > 100.5 Acetaminophen 650 mg 09/19/20 09:23 09/19/20 19:49 Acetaminophen Tab 325 Mg Tab PO 650 mg Q6H PRN Administration Pain or Fever > 100.5 Hydrocodone Bitart/Acetaminophen 1 each 09/19/20 09:23 09/26/20 21:54 Hydrocodone/Apap 5-325mg 1 Each Tab PO 1 each Q6HR PRN Administration Pain Alprazolam 0.25 mg 09/20/20 11:15 09/30/20 00:06 Alprazolam 0.25 Mg Tab PO 0.25 mg BID PRN Administration Anxiety Amiodarone HCl 200 mg 09/20/20 08:00 09/30/20 08:12 Amiodarone 200 Mg Tab PO 200 mg DAILY@0800 JLUIS Administration Apixaban 2.5 mg 09/19/20 17:00 09/30/20 08:12 Apixaban 2.5 Mg Tablet PO 2.5 mg BID@0800,1700 JLUIS Administration Protocol Aspirin 81 mg 09/19/20 17:00 09/29/20 16:42 Aspirin 81 Mg PO 81 mg DAILY@1700 JLUIS Administration Atorvastatin Calcium 40 mg 09/19/20 21:00 09/29/20 21:27 Atorvastatin 40 Mg Tab PO 40 mg HS JLUIS Administration Baclofen 5 mg 09/19/20 09:23 09/25/20 02:01 Baclofen 10 Mg Tab PO 5 mg Q8H PRN Administration Muscle Pain Calcium Acetate 667 mg 09/19/20 12:00 09/30/20 08:13 Calcium Acetate 667 Mg Tab PO 667 mg TID@0800,1200,1700 [facility] Administration Cholestyramine Resin 4 gm 09/19/20 17:00 09/30/20 08:13 Cholestyramine (With Sugar) 4 Gm Packet PO 4 gm BID@0800,1700 JLUIS Administration Darbepoetin Luis 40 mcg 09/19/20 10:00 09/26/20 08:11 Darbepoetin Luis 40 Mcg/0.4 Ml Syringe SQ 40 mcg WEEKLY JLUIS Administration Ferrous Sulfate 325 mg 09/19/20 17:00 09/30/20 05:41 Ferrous Sulfate 325 Mg Tab PO 325 mg BID@0600,1700 J[facility] Administration Furosemide 80 mg 09/19/20 18:00 09/30/20 06:03 Furosemide 80 Mg Tab PO 80 mg BID@0600,1800 J[facility]IS Administration Hydralazine HCl 25 mg 09/20/20 09:16 09/29/20 16:54 Hydralazine Hcl 25 Mg Tab PO 25 mg QID PRN Administration BP >140 Hydroxyzine HCl 50 mg 09/19/20 12:00 09/30/20 05:40 Hydroxyzine Hcl 25 Mg Tab PO 50 mg QID@00,06,12,18 [facility] Administration Dextrose/Sodium Chloride 1,000 mls @ 50 mls/hr 09/23/20 12:00 09/30/20 04:24 Dextrose 5%-Ns Iv Soln IV 50 mls/hr .Q20H JLUIS Administration Ibuprofen 400 mg 09/19/20 05:51 Ibuprofen 400 Mg Tab PO Q6HR PRN Mild Pain or Fever > 100.5 Insulin Aspart 0 unit 09/19/20 12:30 09/30/20 08:14 Insulin Aspart (Novolog) 100 Unit/Ml Vial SQ 2 unit ACHS [facility] Administration Protocol Insulin Detemir 5 unit 09/26/20 21:00 09/29/20 21:27 Insulin Detemir (Levemir) 100 Unit/Ml Syr SQ 5 unit HS@2100 JLUIS Administration Lactulose 15 gm 09/19/20 09:23 Lactulose 20 Gm/30 Ml Cup PO TID PRN Constipation Loperamide HCl 2 mg 09/27/20 23:17 09/28/20 01:38 Loperamide 2 Mg Cap PO 2 mg QID PRN Administration Diarrhea Melatonin 1 mg 09/19/20 21:00 09/29/20 23:25 Melatonin 1 Mg Tab PO 1 mg HS JLUIS Administration Metolazone 5 mg 09/20/20 06:00 09/30/20 06:03 Metolazone 5 Mg Tab PO 5 mg DAILY@0600 J[facility] Administration Metoprolol Tartrate 25 mg 09/19/20 17:00 09/30/20 08:13 Metoprolol Tartrate 25 Mg Tab PO 25 mg BID@0800,1700 JLU[facility] Administration Midodrine 10 mg 09/19/20 14:00 09/30/20 08:25 Midodrine 5 Mg Tab PO Not Given DAILY@0800 [facility] Miscellaneous Information 1 each 09/19/20 17:37 Vancomycin Iv Per Pharmacy 1 Each Misc MISCELLANE DIRECTED PRN Per Protocol Protocol Multivitamins 1 each 09/19/20 17:00 09/29/20 16:41 Multivitamins, Thera 1 Each Tab PO 1 each DAILY@1700 [facility] Administration Naloxone HCl 0.2 mg 09/19/20 05:51 Naloxone 0.4 Mg/Ml 1 Ml Vial IV Q2M PRN Opioid Reversal Ondansetron HCl 4 mg 09/19/20 05:51 09/27/20 14:52 Ondansetron 4 Mg/2 Ml Vial IVP 4 mg Q8HR PRN Administration Nausea And Vomiting Pantoprazole Sodium 40 mg 09/20/20 07:30 09/30/20 08:13 Pantoprazole 40 Mg Tablet PO 40 mg DAILY@0730 [facility] Administration Senna/Docusate Sodium 1 each 09/19/20 09:23 Sennosides-Docusate Sodium 1 Each Tab PO Q12H PRN Constipation Sodium Chloride 2 spray 09/19/20 09:23 Sodium Chloride 0.65% Nasal Clayton 44 Ml Btl NASAL QID PRN Dry Nasal Passages Follow up Appointment(s)/Referral(s): [facility], [NON-STAFF] - As Needed Ten Mckeon DO [Primary Care Provider] - 1-2 days
--- NOTE | 2020-09-30 12:52 | P.PN ---
Subjective Patient is a pleasant 60-year-old male with history of end-stage renal disease on hemodialysis, coronary artery disease status post PCI of the circumflex and LAD in September 2018, paroxysmal atrial fibrillation, diabetes mellitus, hypertension, dyslipidemia and MRSA bacteremia who presents secondary to fevers. Patient normally follows with Dr. Bowie. He was having altered mental status and therefore presented to Hospital and was found to be febrile with leukocytosis and blood cultures were 2 of 2 positive for MRSA bacteremia. He does have a history of prior bacteremia in April 2020 and was given prolonged antibiotic treatment. He denies any chest pain or pressure. He states that normally with his MIs he more so just isn't acting right. States he feels back to normal in terms of his confusion and the blood cultures have been clear with no growth to date to of the last 2. He does get headaches and currently has his face under a blanket. Denies any shortness breath. We were asked to evaluate for possible YAYO to rule out endocarditis. 2-D echo was performed 09/19/2020 which shows normal ejection fraction 55-60%, mild aortic stenosis, mild mitral regurgitation and no other significant valvular disease with RVSP of 57. 09/24: Patient underwent YAYO with Dr. Bowie revealing vegetation on the posterior leaflet of the mitral valve with mitral regurgitation. Followed by infectious disease. CTS consulted for further evaluation- A recommended that came in to be cleared up prior to surgery. Looking at his documentations extremity AV fistula contains the graft material. If there is foreign material present likely removed prior to any cardiothoracic surgical intervention. 09/25: Patient underwent MRI without contrast yesterday revealing no evidence of cervical thoracic or lumbar fracture. No evidence of significant spinal sten osis. No evidence of osteomyelitis. 09/26: Brain CT revealed no acute intracranial process. Stenosis at the craniovertebral junction. 09/30: Patient seen and examined at bedside, no acute distress. Sitting up in the bedside chair. He continues to feel slightly weak but improved. Continues to have bilateral lower extremity edema and bilateral lower extremity pain. His legs feel better when they're flat on the ground, and pain worsens with elevation. Laboratory data reviewed, preliminary blood cultures negative for 96- 120 hours. PHYSICAL EXAM: VITAL SIGNS: Reviewed. GENERAL: Well-developed in no acute distress. NECK: Supple. No JVD or thyromegaly LUNGS: Respirations even and unlabored. Lungs diminished bilaterally. HEART: Regular rate and rhythm. S1 and S2 heard. Systolic murmur noted. EXTREMITIES: Normal range of motion. No clubbing or cyanosis. Peripheral pulses intact. 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 Further recommendations based on clinical course Will discuss with CT surgery Patient is awaiting a bed at [facility] Nurse practitioner note has been reviewed by physician. Signing provider agrees with the documented findings, assessment, and plan of care. Objective - Vital Signs Vital signs: Vital Signs Temp 98.3 F 09/30/20 07:45 Pulse 58 L 09/30/20 07:45 Resp 18 09/30/20 07:45 BP 162/70 09/30/20 07:45 Pulse Ox 92 L 09/30/20 07:45 Intake & Output 09/29/20 09/30/20 09/30/20 18:59 06:59 18:59 Intake Total 1060 Balance 1060 Intake: Intake, IV Titration 100 Amount Dextrose 5%-0.9% NaCl 1, 100 000 ml @ 50 mls/hr IV . Q20H [facility] Rx#:[id number] Oral 960 Other: Voiding Method Diaper Incontinent # Voids 1 2 # Bowel Movements 1 2 - Labs CBC & Chem 7: 09/28/20 07:45 09/28/20 07:45 Labs: Abnormal Lab Results - Last 24 Hours (Table) 09/29/20 09/29/20 09/30/20 Range/Units 16:59 21:16 06:55 POC Glucose (mg/dL) 150 H 132 H 172 H (75-99) mg/dL 09/30/20 Range/Units 11:26 POC Glucose (mg/dL) 121 H (75-99) mg/dL Microbiology - Last 24 Hours (Table) 09/26/20 07:17 Blood Culture - Preliminary Blood No Growth after 96 hours 09/25/20 06:12 Blood Culture - Preliminary Blood No Growth after 120 hours 09/24/20 17:34 Blood Culture - Preliminary Blood No Growth after 120 hours
[2020-09-30 13:38] VITALS: BP 171/66; PULSE 57; TEMP 97.7
--- NOTE | 2020-09-30 15:32 | PN ---
PROGRESS NOTE Patient is seen for followup for end-stage renal disease. The patient will be dialyzed tomorrow. He is currently awaiting bed at [facility]. Blood cultures have been negative from 09/24, 09/25 and 09/26/2020. The patient remains on antibiotics. He does have mitral valve and cervical paraspinal abscess. EXAMINATION: Today, blood pressure 162/70, heart rate 58 per minute. Patient is afebrile. He is awake, alert, oriented x3. Examination of the heart S1, S2. Examination of the lungs, bilateral breath sounds are heard. Abdomen is soft, nontender. Examination of lower extremities shows edema 1+ bilaterally. HISTORICAL ARCHEOLOGIST exam grossly intact. ASSESSMENT: 1. End-stage renal disease, on hemodialysis, currently on a Wednesday, , Wednesday schedule. 2. Mild volume overload, currently improved. 3. Uremia with evidence of mitral valve regurgitation as well as cervical paraspinal abscesses. Blood cultures from 09/24, 09/25 and 09/26/2020 have been negative. He is maintained on daptomycin, being followed by ID. 4. Chronic kidney disease, mineral bone disorder. PLAN: Hemodialysis in a.m. Continue antibiotics. Await transfer. Continue phosphate binders. MMODL / IJN: [id number] /
== END 2020-09-30 15:30 | disposition short-term general hospital (02) | DRG 871 ==
LOC: EC 04:05 → 4SSUR 05:54
PROVIDERS: ADMIT Internal Medicine Geriatric Medicine; ATTEND Internal Medicine Geriatric Medicine
PROC: 5A1D70Z Performance of Urinary Filtration, Intermittent, Less than 6 Hours Per Day (ICD-10-PCS; principal; 2020-09-19)
PROC: B246ZZ4 Ultrasonography of Right and Left Heart, Transesophageal (ICD-10-PCS; 2020-09-24)
DX: A41.02 Sepsis due to Methicillin resistant Staphylococcus aureus (principal); I33.0 Acute and subacute infective endocarditis; G93.41 Metabolic encephalopathy; N18.6 End stage renal disease; G06.1 Intraspinal abscess and granuloma; I13.2 Hypertensive heart and chronic kidney disease with heart failure and with stage 5 chronic kidney disease, or end stage renal disease; N17.9 Acute kidney failure, unspecified; I50.32 Chronic diastolic (congestive) heart failure; Z68.41 Body mass index [BMI] 40.0-44.9, adult; M46.24 Osteomyelitis of vertebra, thoracic region; M46.26 Osteomyelitis of vertebra, lumbar region; M46.35 Infection of intervertebral disc (pyogenic), thoracolumbar region; R18.8 Other ascites; E11.22 Type 2 diabetes mellitus with diabetic chronic kidney disease; I27.20 Pulmonary hypertension, unspecified; E11.649 Type 2 diabetes mellitus with hypoglycemia without coma; E11.40 Type 2 diabetes mellitus with diabetic neuropathy, unspecified; E11.69 Type 2 diabetes mellitus with other specified complication; I70.0 Atherosclerosis of aorta; Z79.4 Long term (current) use of insulin; I48.0 Paroxysmal atrial fibrillation; Z99.2 Dependence on renal dialysis; Z20.822 Contact with and (suspected) exposure to COVID-19; E66.9 Obesity, unspecified; D63.1 Anemia in chronic kidney disease; E83.9 Disorder of mineral metabolism, unspecified; G25.81 Restless legs syndrome; H54.8 Legal blindness, as defined in USA; E78.5 Hyperlipidemia, unspecified; I25.5 Ischemic cardiomyopathy; I08.3 Combined rheumatic disorders of mitral, aortic and tricuspid valves; I25.10 Atherosclerotic heart disease of native coronary artery without angina pectoris; K21.9 Gastro-esophageal reflux disease without esophagitis; M48.00 Spinal stenosis, site unspecified; I25.2 Old myocardial infarction; F32.9 Major depressive disorder, single episode, unspecified; F41.9 Anxiety disorder, unspecified; H91.90 Unspecified hearing loss, unspecified ear; Z79.01 Long term (current) use of anticoagulants; Z79.82 Long term (current) use of aspirin; Z79.899 Other long term (current) drug therapy; Z95.5 Presence of coronary angioplasty implant and graft; Z90.49 Acquired absence of other specified parts of digestive tract; Z87.19 Personal history of other diseases of the digestive system; Z87.891 Personal history of nicotine dependence; Z86.14 Personal history of Methicillin resistant Staphylococcus aureus infection; Z87.11 Personal history of peptic ulcer disease; Z87.2 Personal history of diseases of the skin and subcutaneous tissue; Z86.010 Personal history of colon polyps; Z86.61 Personal history of infections of the central nervous system; Z98.890 Other specified postprocedural states; Z71.3 Dietary counseling and surveillance; Z88.1 Allergy status to other antibiotic agents; Z88.5 Allergy status to narcotic agent; Z88.0 Allergy status to penicillin; Z88.2 Allergy status to sulfonamides; Z88.8 Allergy status to other drugs, medicaments and biological substances; Z83.3 Family history of diabetes mellitus; Z80.8 Family history of malignant neoplasm of other organs or systems; Z82.49 Family history of ischemic heart disease and other diseases of the circulatory system; Z80.1 Family history of malignant neoplasm of trachea, bronchus and lung; Z83.2 Family history of diseases of the blood and blood-forming organs and certain disorders involving the immune mechanism; Z82.61 Family history of arthritis; Z82.69 Family history of other diseases of the musculoskeletal system and connective tissue
CPT/HCPCS: 36410; 36415; 70470; 71045; 72141; 72146; 72148; 76705; 76937; 78306; 80053; 80202; 81001; 82140; 82565; 83036; 83605; 83615; 83735; 84100; 85025; 85027; 85610; 85730; 86140; 87040; 87077; 87186; 87635; 90935; 93005; 93306; 93312; 93320; 93325; 94760; 96365; 96375; 99291

== ENCOUNTER 2020-10-29 06:06 | Inpatient (IN) | payer MEDICARE, OTHER ==
--- NOTE | 2020-10-29 06:32 | ED ---
General Adult HPI - General Chief complaint: Shortness of Breath Stated complaint: MEGHA Time Seen by Provider: 10/29/20 06:10 Source: patient, EMS Mode of arrival: EMS Limitations: no limitations - History of Present Illness Initial comments: 60-year-old male with a complicated past medical history including ESRD with hemodialysis Wednesday due to day, atrial fibrillation, heart failure, diabetes mellitus, hyperlipidemia, hypertension presents to the emergency room for chief complaint of shortness of breath. Patient reports he has had shortness of breath with chest tightness for the past couple hours. Denies chest pain, states his chest feels more tight. Patient states he feels his lungs are "full." She states she is still on IV antibiotics for recent diagnosis of spinal osteomyelitis. Patient has no other complaints at this time including chest pain, abdominal pain, nausea or vomiting, headache, or visual changes. - Related Data Home Medications Medication Instructions Recorded Confirmed Furosemide [Lasix] 80 mg PO BID@0600,1400 04/13/19 10/29/20 Aspirin EC [Ecotrin Low Dose] 81 mg PO DAILY@1700 08/12/20 10/29/20 Ferrous Sulfate [Iron (65 MG 325 mg PO DAILY@0 08/12/20 10/29/20 Elemental)] INSULIN ASPART (NovoLOG) [NovoLOG See Protocol SQ ACHS 08/12/20 10/29/20 (formulary)] Insulin Detemir (Levemir) [Levemir] 5 unit SQ HS@209908/12/20 10/29/20 Na Phos,M-B/Na Phos,Di-Ba [Fleet 133 ml RECTAL DAILY PRN 08/12/20 10/29/20 Adult] bisacodyL [Dulcolax] 10 mg RECTAL DAILY PRN 08/12/20 10/29/20 Amiodarone [Cordarone] 200 mg PO DAILY@0800 09/19/20 10/29/20 Apixaban [Eliquis] 2.5 mg PO BID@0800,209909/19/20 10/29/20 Atorvastatin [Lipitor] 40 mg PO HS 09/19/20 10/29/20 Liquacel 30 ml PO BID@0800,209909/19/20 10/29/20 Metoprolol Tartrate [Lopressor] 25 mg PO BID@0800,2100 09/19/20 10/29/20 hydrALAZINE HCL [Apresoline] 75 mg PO TID@0600,1400,2100 09/19/20 10/29/20 metOLazone [Zaroxolyn] 5 mg PO DAILY@0600 09/19/20 10/29/20 ALPRAZolam [Xanax] 0.25 mg PO BID PRN 10/29/20 10/29/20 Acetaminophen [Tylenol 8 Hour] 650 mg PO Q4H PRN 10/29/20 10/29/20 Baclofen [Lioresal] 5 mg PO Q8H PRN 10/29/20 10/29/20 Cholestyramine (with Sugar) 4 gm PO BID@0800,1400 10/29/20 10/29/20 [Cholestyramine Packet] Docusate [Colace] 100 mg PO BID@0800,1700 10/29/20 10/29/20 Magnesium Hydroxide [Milk of 2,400 mg PO Q48H PRN 10/29/20 10/29/20 Magnesia] Mupirocin 2% Oint [Bactroban 2% 1 applic TOPICAL BID@0800,1700 10/29/20 10/29/20 Oint] Promethazine Soln 25 mg IM Q6H PRN 10/29/20 10/29/20 Triamcinolone 0.1% Cream [Kenalog 1 applic TOPICAL BID@0800,1700 10/29/20 10/29/20 0.1% Cream] Vancomycin Oral Solution 1 dose IV TUTHSA 10/29/20 10/29/20 Previous Rx's Medication Instructions Recorded Gabapentin 300 mg PO HS@2100 #3 cap 08/19/20 HYDROcodone/APAP 5-325MG [Angier 1 tab PO Q6HR PRN #12 tab 08/19/20 5-325] Allergies Allergy/AdvReac Type Severity Reaction Status Date / Time codeine Allergy Unknown Verified 10/29/20 08:27 Penicillins Allergy Anaphylaxis Verified 10/29/20 08:27 sulfadiazine Allergy Unknown Verified 10/29/20 08:27 bumetanide [From Bumex] AdvReac Hallucinati Verified 10/29/20 08:27 ons morphine AdvReac Confusion Verified 09/07/21 08:27 rivaroxaban [From Xarelto] AdvReac Bloody Nose Verified 10/29/20 08:27 spironolactone AdvReac Hallucinati Verified 10/29/20 08:27 ons All antibiotics except Keflex Allergy Unknown Uncoded 09/19/20 06:44 Childhood Review of Systems ROS Statement: Those systems with pertinent positive or pertinent negative responses have been documented in the HPI. ROS Other: All systems not noted in ROS Statement are negative. Past Medical History Past Medical History: Atrial Fibrillation, Coronary Artery Disease (CAD), Heart Failure, Diabetes Mellitus, Dialysis, Eye Disorder, GERD/Reflux, Hearing Disorder / Deafness, Hyperlipidemia, Hypertension, Myocardial Infarction ([place]), Renal Disease, Syncope Additional Past Medical History / Comment(s): IDDM type II, neuropathy bilateral hands/feet, ESRD with hemodialysis on /W/, chronic anemia, LVH, Afib with RVR, MIs, chronic CHF, R eye blindness, L eye legally blind, RLS, pt unsure if he has gout, vertigo at times, balance issues at times, stomach ulcer at age 17yrs, si nus problems, very [place] R ear. Last Myocardial Infarction Date:: 08/09/18 History of Any Multi-Drug Resistant Organisms: MRSA Date of last positivie culture/infection: 09/20/20 MDRO Source:: Blood Past Surgical History: Heart Catheterization, Heart Catheterization With Stent Additional Past Surgical History / Comment(s): TTT, PD catheter placement/since removed, 2016 L arm fistula, fistula gram with balloon for stenosis, L eye vitrectomy, thyroid needle aspiration-negative, L leg cyst, colonoscopy with benign polypectomy. port placed in chest Right side. Past Anesthesia/Blood Transfusion Reactions: Postoperative Nausea & Vomiting (PONV) Date of Last Stent Placement:: 03-03-18 Past Psychological History: Anxiety, Depression Smoking Status: Never smoker Past Alcohol Use History: None Reported Past Drug Use History: None Reported - Past Family History Father Family Medical History: Cancer, Coronary Artery Disease (CAD), Hyperlipidemia Additional Family Medical History / Comment(s): Lung/BRAIN CANCER Mother Family Medical History: Diabetes Mellitus, Deep Vein Thrombosis (DVT), O steoarthritis (OA) Additional Family Medical History / Comment(s): DJD Sister(s) Family Medical History: Diabetes Mellitus Additional Family Medical History / Comment(s): Patient has one sister with diabetes mellitus type 2, SLE, MS. Brother(s) Family Medical History: Diabetes Mellitus Additional Family Medical History / Comment(s): Patient has 4 kids no major medical problems. Daughter(s) Family Medical History: No Reported History Additional Family Medical History / Comment(s): Patient has 2 daughters no major medical problems. Son(s) Family Medical History: No Reported History Additional Family Medical History / Comment(s): Patient has 2 sons no major medical problems. General Exam Limitations: no limitations General appearance: alert, in no apparent distress Head exam: Present: atraumatic Eye exam: Present: normal appearance, PERRL, EOMI. Absent: scleral icterus, conjunctival injection ENT exam: Present: normal exam, mucous membranes moist Neck exam: Present: normal inspection, full ROM. Absent: tenderness Respiratory exam: Present: decreased breath sounds. Absent: respiratory distress Cardiovascular Exam: Present: regular rate, normal rhythm, normal heart sounds GI/Abdominal exam: Present: soft, normal bowel sounds. Absent: distended, tenderness Extremities exam: Present: pedal edema (2+ bilateral) Course Vital Signs 10/29/20 06:08 Temperature 98.6 F Pulse Rate 65 Respiratory 16 Rate Blood Pressure 146/64 O2 Sat by Pulse 96 Oximetry EKG Findings - EKG Comments: EKG Findings:: Normal sinus rhythm, ventricular rate 65, NC interval 162, QTc 440 Medical Decision Making - Medical Decision Making Vitals are stable. Patient is 97% on room air when I am in the room. CBC is unremarkable. CMP does show evidence of chronic kidney disease. Chest x-ray does show evidence of CHF with a new small pleural effusion on the left. Clinically not correlated with infiltrates, white blood cell count is normal and patient does not have a cough. BNP is elevated for patient's baseline at 48,000. Given recent N STEMI and chest tightness today troponin was added which was minimally elevated at 0.038. The case was discussed with Dr. Pantoja. At this time she would like to admit patient to trend troponin and treat with renal dialysis as he is due today. She does agree to a dose of IV Lasix as patient does produce urine. She requests consultation to cardiology as well as nephrology. - Lab Data Result diagrams: 10/29/20 07:13 10/29/20 07:13 Lab Results 10/29/20 10/29/20 10/29/20 Range/Units 07:13 07:13 07:13 WBC 8.8 (3.8-10.6) k/uL RBC 3.54 L (4.30-5.90) m/uL Hgb 11.0 L (13.0-17.5) gm/dL Hct 35.2 L (39.0-53.0) % MCV 99.5 (80.0-100.0) fL MCH 31.2 (25.0-35.0) pg MCHC 31.3 (31.0-37.0) g/dL RDW 17.0 H (11.5-15.5) % Plt Count 223 (150-450) k/uL MPV 7.6 Neutrophils % 77 % Lymphocytes % 8 % Monocytes % 6 % Eosinophils % 5 % Basophils % 1 % Neutrophils # 6.8 (1.3-7.7) k/uL Lymphocytes # 0.7 L (1.0-4.8) k/uL Monocytes # 0.5 (0-1.0) k/uL Eosinophils # 0.5 (0-0.7) k/uL Basophils # 0.1 (0-0.2) k/uL Hypochromasia Slight Anisocytosis Slight Macrocytosis Slight PT 11.3 (9.0-12.0) sec INR 1.1 (<1.2) APTT 25.9 (22.0-30.0) sec Sodium 138 (137-145) mmol/L Potassium 4.8 (3.5-5.1) mmol/L Chloride 98 (98-107) mmol/L Carbon Dioxide 26 (22-30) mmol/L Anion Gap 14 mmol/L BUN 60 H (9-20) mg/dL Creatinine 5.43 H (0.66-1.25) mg/dL Est GFR (CKD-EPI)AfAm 12 (>60 ml/min/1.73 sqM) Est GFR (CKD-EPI)NonAf 10 (>60 ml/min/1.73 sqM) Glucose 103 H (74-99) mg/dL Plasma Lactic Acid Ramirez (0.7-2.0) mmol/L Calcium 10.0 (8.4-10.2) mg/dL Magnesium 2.4 H (1.6-2.3) mg/dL Total Bilirubin 0.5 (0.2-1.3) mg/dL AST 26 (17-59) U/L ALT 30 (4-49) U/L Alkaline Phosphatase 180 H (38-126) U/L Troponin I (0.000-0.034) ng/mL NT-Pro-B Natriuret Pep pg/mL Total Protein 7.2 (6.3-8.2) g/dL Albumin 4.1 (3.5-5.0) g/dL Coronavirus (PCR) (Not Detectd) 10/29/20 10/29/20 10/29/20 Range/Units 07:13 07:13 07:20 WBC (3.8-10.6) k/uL RBC (4.30-5.90) m/uL Hgb (13.0-17.5) gm/dL Hct (39.0-53.0) % MCV (80.0-100.0) fL MCH (25.0-35.0) pg MCHC (31.0-37.0) g/dL RDW (11.5-15.5) % Plt Count (150-450) k/uL MPV Neutrophils % % Lymphocytes % % Monocytes % % Eosinophils % % Basophils % % Neutrophils # (1.3-7.7) k/uL Lymphocytes # (1.0-4.8) k/uL Monocytes # (0-1.0) k/uL Eosinophils # (0-0.7) k/uL Basophils # (0-0.2) k/uL Hypochromasia Anisocytosis Macrocytosis PT (9.0-12.0) sec INR (<1.2) APTT (22.0-30.0) sec Sodium (137-145) mmol/L Potassium (3.5-5.1) mmol/L Chloride (98-107) mmol/L Carbon Dioxide (22-30) mmol/L Anion Gap mmol/L BUN (9-20) mg/dL Creatinine (0.66-1.25) mg/dL Est GFR (CKD-EPI)AfAm (>60 ml/min/1.73 sqM) Est GFR (CKD-EPI)NonAf (>60 ml/min/1.73 sqM) Glucose (74-99) mg/dL Plasma Lactic Acid Ramirez 0.8 (0.7-2.0) mmol/L Calcium (8.4-10.2) mg/dL Magnesium (1.6-2.3) mg/dL Total Bilirubin (0.2-1.3) mg/dL AST (17-59) U/L ALT (4-49) U/L Alkaline Phosphatase (38-126) U/L Troponin I 0.038 H* (0.000-0.034) ng/mL NT-Pro-B Natriuret Pep 48433 pg/mL Total Protein (6.3-8.2) g/dL Albumin (3.5-5.0) g/dL Coronavirus (PCR) (Not Detectd) 10/29/20 Range/Units 07:59 WBC (3.8-10.6) k/uL RBC (4.30-5.90) m/uL Hgb (13.0-17.5) gm/dL Hct (39.0-53.0) % MCV (80.0-100.0) fL MCH (25.0-35.0) pg MCHC (31.0-37.0) g/dL RDW (11.5-15.5) % Plt Count (150-450) k/uL MPV Neutrophils % % Lymphocytes % % Monocytes % % Eosinophils % % Basophils % % Neutrophils # (1.3-7.7) k/uL Lymphocytes # (1.0-4.8) k/uL Monocytes # (0-1.0) k/uL Eosinophils # (0-0.7) k/uL Basophils # (0-0.2) k/uL Hypochromasia Anisocytosis Macrocytosis PT (9.0-12.0) sec INR (<1.2) APTT (22.0-30.0) sec Sodium (137-145) mmol/L Potassium (3.5-5.1) mmol/L Chloride (98-107) mmol/L Carbon Dioxide (22-30) mmol/L Anion Gap mmol/L BUN (9-20) mg/dL Creatinine (0.66-1.25) mg/dL Est GFR (CKD-EPI)AfAm (>60 ml/min/1.73 sqM) Est GFR (CKD-EPI)NonAf (>60 ml/min/1.73 sqM) Glucose (74-99) mg/dL Plasma Lactic Acid Ramirez (0.7-2.0) mmol/L Calcium (8.4-10.2) mg/dL Magnesium (1.6-2.3) mg/dL Total Bilirubin (0.2-1.3) mg/dL AST (17-59) U/L ALT (4-49) U/L Alkaline Phosphatase (38-126) U/L Troponin I (0.000-0.034) ng/mL NT-Pro-B Natriuret Pep pg/mL Total Protein (6.3-8.2) g/dL Albumin (3.5-5.0) g/dL Coronavirus (PCR) Not Detected (Not Detectd) Disposition Clinical Impression: CHF exacerbation, ESRD (end stage renal disease), Volume overload Disposition: ADMITTED IP TO THIS HOSP Is patient prescribed a controlled substance at d/c from ED?: No Referrals: Perry Christian MD [Primary Care Provider] - 1-2 days Time of Disposition: 09:01
--- NOTE | 2020-10-29 07:32 | XR ---
EXAMINATION TYPE: XR chest 2V DATE OF EXAM: 10/29/2020 COMPARISON: Chest x-ray September 19, 2020. CT chest April 24, 2020. HISTORY: Chest pain and difficulty in breathing. TECHNIQUE: Frontal and lateral views of the chest are obtained. FINDINGS: Exam suboptimal due to patient's large body habitus. There is cardiomegaly with atheroscle rotic aorta are redemonstrated. Increased reticulonodular opacities bilaterally are present. Small le ft pleural effusion is present. The osseous structures are intact. IMPRESSION: Cardiomegaly with new small left pleural effusion. Bilateral alveolar and interstitial r eticulonodular opacities could reflect edema and/or infiltrates. Correlate clinically.
[2020-10-29 07:34] LABS: Anisocytosis Slight; Basophils # (A) 0.1 k/uL (0-0.2); Basophils % (A) 1 %; Eosinophils # (A) 0.5 k/uL (0-0.7); Eosinophils % (A) 5 %; HCT 35.2 % (39.0-53.0); Hypochromasia Slight; Lymphocytes # (A) 0.7 k/uL (1.0-4.8); Lymphocytes % (A) 8 %; MCH 31.2 pg (25.0-35.0); MCHC 31.3 g/dL (31.0-37.0); MCV 99.5 fL (80.0-100.0); Macrocytosis Slight; Mean Platelet Volume 7.6; Monocytes # (A) 0.5 k/uL (0-1.0); Monocytes % (A) 6 %; Neutrophils # (A) 6.8 k/uL (1.3-7.7); Neutrophils % (A) 77 %; Platelet Count 223 k/uL (150-450); RBC 3.54 m/uL (4.30-5.90); WBC 8.8 k/uL (3.8-10.6)
[2020-10-29 07:59] LABS: INR 1.1 (<1.2); Partial Thromboplastin Time 25.9 sec (22.0-30.0); Prothrombin Time 11.3 sec (9.0-12.0)
[2020-10-29 08:07] LABS: Albumin 4.1 g/dL (3.5-5.0); Magnesium 2.4 mg/dL (1.6-2.3); Potassium 4.8 mmol/L (3.5-5.1); Total Bilirubin 0.5 mg/dL (0.2-1.3); Total Protein 7.2 g/dL (6.3-8.2)
[2020-10-29] MEDS ORDERED: FUROSEMIDE 10 MG/ML 4 ML VIAL IV STA (09:07)
[2020-10-29] MEDS: hydrALAZINE HCL 25 MG TAB PO SCH ×2 (13:05→20:10)
[2020-10-29] MEDS ORDERED: MAGNESIUM HYDROXIDE 2,400 MG/10 ML CUP PO PRN (14:04)
[2020-10-29] MEDS ORDERED: BACLOFEN 10 MG TAB PO PRN (14:04)
[2020-10-29] MEDS ORDERED: bisacodyL 10 MG SUPP RECTAL PRN (14:04)
[2020-10-29] MEDS ORDERED: VANCOMYCIN IV PER PHARMACY 1 EACH MISC MISCELLANE PRN (14:07)
[2020-10-29] MEDS ORDERED: ONDANSETRON 4 MG/2 ML VIAL IVP PRN (14:26)
[2020-10-29] MEDS: ALPRAZolam 0.25 MG TAB PO PRN ×2 (14:31→20:24)
[2020-10-29] MEDS: HYDROcodone/APAP 5-325MG 1 EACH TAB PO PRN ×2 (14:31→23:12)
--- NOTE | 2020-10-29 14:55 | CONS ---
CONSULTATION Mr. Gillette is a 60-year-old male who was [facility] for evaluation of progressive dyspnea. The patient has been followed by Dr. Bowie in the past, has a history of coronary artery disease, history of paroxysmal atrial fibrillation, end-stage renal disease as well as endocarditis with vegetation on the mitral valve. He also has a history of abscess in the back. He was transferred recently from [facility] to [facility]. He is sleepy but answering question. He was complaining of progressive dyspnea and was transferred to the ER. He denies any chest pain. No dizziness. No palpitations. He has no significant cough. He denies any irregular heartbeat. He is limited in his physical activity. His coronary risk factors are remarkable for the history of hypertension and hyperlipidemia. He is diabetic. MEDICATION: His medication at home included amiodarone 200 mg daily, aspirin once a day, Lipitor 40 mg daily, insulin, Zaroxolyn 5 mg daily, Eliquis 2.5 mg twice a day, Lasix 80 mg twice a day, metoprolol tartrate 25 mg twice a day, hydralazine 75 mg 3 times a day, iron, baclofen, gabapentin. REVIEW OF SYSTEMS: Review of systems is limited, but: RESPIRATORY SYSTEM: He has no recent cough. He has history of worsening dyspnea. GI SYSTEM: He denies any nausea or vomiting. No GI bleeding. SYSTEM: He has end-stage renal disease, on hemodialysis. He was dialyzed on Wednesday. NERVOUS SYSTEM: He denies any seizure. PHYSICAL EXAMINATION: He is a 60-year-old male, sleepy, waking up with verbal stimulation. No apparent distress. Blood pressure 135/70 with a heart rate in 60s. HEAD: Normocephalic. Eyes: Sclerae anicteric. NECK: Mild increased jugular venous pressure. LUNGS: Mild decreased breath sounds at the bases. HEART: Regular rate and rhythm S1, S2. No S3, with systolic murmur at the base. No diastolic murmur. No rub. There is a systolic murmur at the base and a holosystolic murmur in the apex radiating to the axilla. ABDOMEN: Soft, nontender. Positive bowel sounds. No organomegaly. EXTREMITIES: Plus 2 to 3 edema bilaterally. LAB DATA: BUN and creatinine of 16 and 5.43. Troponin 0.038. NT proBNP of 48,000. Potassium 4.8. Hemoglobin of 11. EKG revealed a sinus mechanism with a normal axis and intervals, low voltage in the limb leads, with nonspecific ST-T wave changes. Chest x-ray shows a small left pleural effusion. IMPRESSION: 1. Symptoms of progressive dyspnea with fluid overload in a patient with known history of end-stage renal disease. He had dialysis done on Wednesday. He is due for dialysis today. 2. Elevated NT proBNP, not as reliable in the setting of renal failure. In his past, ejection fraction 45%. He definitely has evidence of fluid overload with evidence of congestive heart failure, most likely worsened by the renal disease. 3. Endocarditis with vegetation on mitral valve. 4. Abscess in the back, followed at [facility]. 5. Paroxysmal atrial fibrillation. 6. History of hypertension. 7. Hyperlipidemia. RECOMMENDATIONS: From the cardiac standpoint, he will be re-initiated on his medical regimen. We will try to obtain the records from [facility] after his last transfer to see about the plans. He will be seen by the nephrology service for dialysis today and depending on that, further recommendations will be made. Thank you for this consult. Will follow with you. MMODL / IJN: [id number] /
[2020-10-29] MEDS ORDERED: VANCOMYCIN 1,750 MG in SODIUM CHLORIDE 0.9% 500 ML 500 ML IVPB ONE (15:00)
--- NOTE | 2020-10-29 15:06 | P.HPIM ---
History of Present Illness H&P Date: 10/29/20 HISTORY OF PRESENT ILLNESS This is a 60-year-old male patient of Dr. Mckeon currently residing at [facility] under the care of Dr. 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 Patient was hospitalized in April 2020 at which time he was treated for sepsis and MRSA bacteremia of unclear etiology with metabolic encephalopathy vasovagal episode requiring brief CPR and patient was transferred to [facility]. Patient was treated for MRSA osteomyelitis of the lumbar spine. Patient had recent hospitalization September 19 and was transferred on September 30 to be [facility] due to sepsis with persistent MRSA bacteremia secondary to mitral valve vegetation, paraspinal abscess of the C1-C2. Patient was doing well at [facility] and developed shortness of breath was transferred to [facility] emergency center for further evaluation and treatment. He was found to be afebrile, heart rate 65, blood pressure 146/64, pulse ox 96% on room air. WBC 8.8, hemoglobin 11, platelet count 223. Electrolytes were normal. BUN 60 and creatinine 5.43. Blood sugar 103. Alkaline phosphatase 180. Lactic acid 0.8. Troponin 0.038. ProBNP 48,000. Solis virus not detected. Chest x-ray reveals cardiomegaly with new small left pleural effusion. Bilateral alveolar and interstitial reticulonodular opacities could reflect edema and/or infiltrates. There is concern the patient did not receive dialysis yesterday on the holiday. Patient seen in the emergency center and consult added for nephrology for dialysis treatment and cardiology consult for fluid overload. REVIEW OF SYSTEMS Constitutional: Noted fever, no chills, no night sweats. No weight change. Reported weakness, reported fatigue Reported lethargy. Reported daytime sleepiness. EENT: No headache. No blurred vision or double vision, no loss of vision. No loss of Hearing, no ringing in the ears, no dizziness. No nasal drainage or congestion. No epistaxis. No sore throat. Lungs: No shortness of breath, cough, no sputum production. No wheezing. Cardiovascular: No chest pain, no lower extremity edema. No palpitations. No paroxysmal nocturnal dyspnea. No orthopnea. No lightheadedness or dizziness. No syncopal episodes. Abdominal: No abdominal pain. Reported nausea and vomiting. No diarrhea. No constipation. No bloody or tarry stools. No loss of appetite. Genitourinary: No dysuria, increased frequency, urgency. No urinary retention. Patient makes a small amount of urine. Musculoskeletal: No myalgias. Noted muscle weakness, no gait dysfunction, no frequent falls. Reported back pain. No neck pain. Integumentary: No wounds, no lesions. No rash or pruritus. No unusual bruising. No change in hair or nails. Neurologic: No aphasia. No facial droop. Noted change in mentation. No head injury. No headache. No paralysis. No paresthesia. Psychiatric: No depression. No anxiety. No mood swings. Endocrine: Noted abnormal blood sugars. No weight change. SOCIAL HISTORY Patient was a smoker for 23 years and quit in 1995. No alcohol use, illicit drug use. He lives at home with his and has been in rehab at [facility]. FAMILY HISTORY Father at age 72 from brain cancer also had history of coronary artery disease. Mother is 83-year-old with history of diabetes type 2 and osteoarthritis. Patient has one sister with diabetes, SLE and MS. Patient's 1 brother with diabetes and one with no major medical problems. Patient has 2 daughters with no major medical problems and 2 sons with no major medical problems.. PHYSICAL EXAMINATION Gen: This is a 60-year-old male patient resting on ER stretch. He appears to be in no acute distress. HEENT: Head is atraumatic, normocephalic. Pupils equal, round. Sclerae is anicteric. NECK: Supple. No JVD. No lymphadenopathy. No thyromegaly. LUNGS: Clear to auscultation. No wheezes or rhonchi. No intercostal retractions. HEART: Regular rate and rhythm. 2/6 systolic murmur. ABDOMEN: Soft. Bowel sounds are present. No masses. No tenderness. EXTREMITIES: No pedal edema. No calf tenderness. NEUROLOGICAL: Patient is sleeping, awakes to verbal stimuli. Cranial nerves 2 through 12 are grossly intact. ASSESSMENT AND PLAN 1. Shortness of breath secondary to fluid overload from missed dialysis treatment on holiday. Consult with nephrology for hemodialysis usually scheduled on Wednesday and Wednesday. Cardiology consult was also added. Continue Lasix 80 mg oral twice daily, Zaroxolyn 5 mg daily, Lopressor 25 mg twice daily. 2. 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 Patient was transferred to [facility] and return to [facility] to complete 4 week course of IV vancomycin with dialysis. Antibiotic course started on October 19. 3. Metabolic encephalopathy secondary to fluid overload. Continue as in #1. 4. Recent treatment for MRSA bacteremia and lumbar spine osteomyelitis, completed course of antibiotics. 5. End-stage renal disease on hemodialysis. Consult with nephrology appreci ed. Continue PhosLo 667 mg 3 times daily, Aranesp 40 g subcu every 7 days, hemodialysis. 6. Degenerative disc disease and spinal stenosis. Continue gabapentin 300 mg at bedtime. Continue baclofen 5 mg every 8 hours as needed. 7. History of coronary artery disease with previous PTCA to LAD and circumflex. Continue aspirin 81 mg daily, atorvastatin 40 mg at bedtime, Lopressor 25 mg twice daily. 8. Paroxysmal atrial fibrillation. Continue eliquis 2.5 mg twice daily, Lopressor, amiodarone 200 mg daily 8. Ischemic cardiomyopathy. Continue Lopressor, Lasix 80 mg twice daily, meto lazone 5 mg daily. 9. Diabetes mellitus type 2, insulin requiring. Continue Levemir 5 units at be dtime, add NovoLog scale before meals and at bedtime, 10. Diabetic neuropathy. Continue gabapentin. 11. Hypertension. Continue hydralazine 75 mg 3 times daily. 12. Anemia of chronic disease. Continue ferrous sulfate 325 mg twice daily. 13. GI prophylaxis. Continue Protonix. 14. DVT prophylaxis. Leandra Patient will be admitted to the hospital for a minimum of 2 night stay. DISCHARGE PLAN Return to [facility]. Impression and plan of care have been directed as dictated by the signing physician. Katelyn Wesley nurse practitioner acting as scribe for signing physician. Past Medical History Past Medical History: Atrial Fibrillation, Coronary Artery Disease (CAD), Heart Failure, Diabetes Mellitus, Dialysis, Eye Disorder, GERD/Reflux, Hearing Disorder / Deafness, Hyperlipidemia, Hypertension, Myocardial Infarction ([place]), Renal Disease, Syncope Additional Past Medical History / Comment(s): IDDM type II, neuropathy bilateral hands/feet, ESRD with hemodialysis on M/W/F, chronic anemia, LVH, Afib with RVR, MIs, chronic CHF, R eye blindness, L eye legally blind, RLS, pt unsure if he has gout, vertigo at times, balance issues at times, stomach ulcer at age 17yrs, sinus problems, very NENANA R ear. Last Myocardial Infarction Date:: 08/09/18 History of Any Multi-Drug Resistant Organisms: MRSA Date of last positivie culture/infection: 09/20/20 MDRO Source:: Blood Past Surgical History: Heart Catheterization, Heart Catheterization With Stent Additional Past Surgical History / Comment(s): TTT, PD catheter placement/since removed, 2016 L arm fistula, fistula gram with balloon for stenosis, L eye vitrectomy, thyroid needle aspiration-negative, L leg cyst, colonoscopy with benign polypectomy. port placed in chest Right side. Past Anesthesia/Blood Transfusion Reactions: Postoperative Nausea & Vomiting (PONV) Date of Last Stent Placement:: 03-03-18 Past Psychological History: Anxiety, Depression Smoking Status: Never smoker Past Alcohol Use History: None Reported Past Drug Use History: None Reported - Past Family History Father Family Medical History: Cancer, Coronary Artery Disease (CAD), Hyperlipidemia Additional Family Medical History / Comment(s): Lung/BRAIN CANCER Mother Family Medical History: Diabetes Mellitus, Deep Vein Thrombosis (DVT), Osteoarthritis (OA) Additional Family Medical History / Comment(s): DJD Sister(s) Family Medical History: Diabetes Mellitus Additional Family Medical History / Comment(s): Patient has one sister with diabetes mellitus type 2, SLE, MS. Brother(s) Family Medical History: Diabetes Mellitus Additional Family Medical History / Comment(s): Patient has 4 kids no major medical problems. Daughter(s) Family Medical History: No Reported History Additional Family Medical History / Comment(s): Patient has 2 daughters no major medical problems. Son(s) Family Medical History: No Reported History Additional Family Medical History / Comment(s): Patient has 2 sons no major medical problems. Medications and Allergies Home Medications Medication Instructions Recorded Confirmed Type Furosemide [Lasix] 80 mg PO BID@0600,1400 04/13/19 10/29/20 History Aspirin EC [Ecotrin Low Dose] 81 mg PO DAILY@1700 08/12/20 10/29/20 History Ferrous Sulfate [Iron (65 MG 325 mg PO DAILY@0 08/12/20 10/29/20 History Elemental)] INSULIN ASPART (NovoLOG) [NovoLOG See Protocol SQ ACHS 08/12/20 10/29/20 History (formulary)] Insulin Detemir (Levemir) [Levemir] 5 unit SQ HS@209908/12/20 10/29/20 History Na Phos,M-B/Na Phos,Di-Ba [Fleet 133 ml RECTAL DAILY PRN 08/12/20 10/29/20 History Adult] bisacodyL [Dulcolax] 10 mg RECTAL DAILY PRN 08/12/20 10/29/20 History Gabapentin 300 mg PO HS@2100 #3 cap 08/19/20 10/29/20 Rx HYDROcodone/APAP 5-325MG [[place] 1 tab PO Q6HR PRN #12 tab 08/19/20 10/29/20 Rx 5-325] Amiodarone [Cordarone] 200 mg PO DAILY@0800 09/19/20 10/29/20 History Apixaban [Eliquis] 2.5 mg PO BID@0800,209909/19/20 10/29/20 History Atorvastatin [Lipitor] 40 mg PO HS 09/19/20 10/29/20 History Liquacel 30 ml PO BID@0800,209909/19/20 10/29/20 History Metoprolol Tartrate [Lopressor] 25 mg PO BID@0800,209909/19/20 10/29/20 History hydrALAZINE HCL [Apresoline] 75 mg PO TID@0600,1400,209909/19/20 10/29/20 History metOLazone [Zaroxolyn] 5 mg PO DAILY@0600 09/19/20 10/29/20 History ALPRAZolam [Xanax] 0.25 mg PO BID PRN 10/29/20 10/29/20 History Acetaminophen [Tylenol 8 Hour] 650 mg PO Q4H PRN 10/29/20 10/29/20 History Baclofen [Lioresal] 5 mg PO Q8H PRN 10/29/20 10/29/20 History Cholestyramine (with Sugar) 4 gm PO BID@0800,1400 10/29/20 10/29/20 History [Cholestyramine Packet] Docusate [Colace] 100 mg PO BID@0800,1700 10/29/20 10/29/20 History Magnesium Hydroxide [Milk of 2,400 mg PO Q48H PRN 10/29/20 10/29/20 History Magnesia] Mupirocin 2% Oint [Bactroban 2% 1 applic TOPICAL BID@0800,1700 10/29/20 10/29/20 History Oint] Promethazine Soln 25 mg IM Q6H PRN 10/29/20 10/29/20 History Triamcinolone 0.1% Cream [Kenalog 1 applic TOPICAL BID@0800,1700 10/29/20 10/29/20 History 0.1% Cream] Vancomycin Oral Solution 1 dose IV TUTHSA 10/29/20 10/29/20 History Allergies Allergy/AdvReac Type Severity Reaction Status Date / Time codeine Allergy Unknown Verified 10/29/20 08:27 Penicillins Allergy Anaphylaxis Verified 10/29/20 08:27 sulfadiazine Allergy Unknown Verified 10/29/20 08:27 bumetanide [From Bumex] AdvReac Hallucinati Verified 10/29/20 08:27 ons morphine AdvReac Confusion Verified 10/29/20 08:27 rivaroxaban [From Xarelto] AdvReac Bloody Nose Verified 10/29/20 08:27 spironolactone AdvReac Hallucinati Verified 10/29/20 08:27 ons All antibiotics except Keflex Allergy Unknown Uncoded 09/19/20 06:44 Childhood Physical Exam Vitals: Vital Signs Temp Pulse Resp BP Pulse Ox 10/29/20 09:53 57 L 16 135/71 100 10/29/20 06:08 98.6 F 65 16 146/64 96 Intake and Output 10/28/20 10/29/20 10/29/20 22:59 06:59 14:59 Other: Weight 108.862 kg Results CBC & Chem 7: 10/29/20 07:13 10/29/20 07:13 Labs: Abnormal Lab Results - Last 24 Hours (Table) 10/29/20 10/29/20 10/29/20 Range/Units 07:13 07:13 07:13 RBC 3.54 L (4.30-5.90) m/uL Hgb 11.0 L (13.0-17.5) gm/dL Hct 35.2 L (39.0-53.0) % RDW 17.0 H (11.5-15.5) % Lymphocytes # 0.7 L (1.0-4.8) k/uL BUN 60 H (9-20) mg/dL Creatinine 5.43 H (0.66-1.25) mg/dL Glucose 103 H (74-99) mg/dL Magnesium 2.4 H (1.6-2.3) mg/dL Alkaline Phosphatase 180 H (38-126) U/L Troponin I 0.038 H* (0.000-0.034) ng/mL
--- NOTE | 2020-10-29 15:29 | CONS ---
CONSULTATION REASON FOR CONSULT: End-stage renal disease. HISTORY OF PRESENT ILLNESS: The patient is a 60-year-old male with end-stage renal disease, on hemodialysis on a Wednesday, , Wednesday schedule. The patient was admitted to the hospital with complaints of shortness of breath. He did not miss his treatment on Wednesday. He has had history of fluid abuse and large weight gains. No complaints of fevers or chills. No nausea, vomiting, abdominal pain or diarrhea. Patient has a history of recurrent MRSA bacteremia with previous history of endocarditis. This was mostly treated with antibiotics. He had been transferred to an outside facility, but no surgical intervention was done. PAST MEDICAL HISTORY: End-stage renal disease, diabetes, coronary artery disease, history of MRSA bacteremia, history of endocarditis, history of CHF, gastroesophageal reflux disease, neuropathy, atrial fibrillation with RVR, peptic ulcers, hearing loss and CKD mineral bone disorder. PAST SURGICAL HISTORY: Cardiac catheterization, PD catheter placement and removal, left arm AV fistula, left eye vitrectomy, colonoscopy. SOCIAL HISTORY: Negative for smoking, drug abuse or alcohol abuse. MEDICATIONS: Medications prior to admission included: Lasix, aspirin, iron, insulin, amiodarone, Eliquis, Lipitor, Lopressor, hydralazine, Zaroxolyn, Xanax, Colace, [place], and Neurontin. ALLERGIES: INCLUDE PENICILLIN, SULFA, AND BUMEX, XARELTO, SPIRONOLACTONE WHICH CAUSES HALLUCINATIONS. REVIEW OF SYSTEMS: As per HPI. Other systems negative. EXAMINATION: The patient is comfortable, sleeping, easily arousable, not in acute distress. Blood pressure 153/72, heart rate 58 per minute. He is afebrile. Examination of the heart S1, S2. Examination of the lungs, bilateral breath sounds are heard. Decreased breath sounds at bases. Basal crackles are heard bilaterally. Abdomen: Soft, nontender, obese. Exam of lower extremities shows edema 2 to 3+ bilaterally. DIRECTOR OF ORTHOPEDICS exam grossly intact. LAB: Show sodium 138, potassium 4.8, hemoglobin 11.0 g/dL. Troponin 0.038. ASSESSMENT: 1. End-stage renal disease, on hemodialysis on a Wednesday, , Wednesday schedule. 2. Acute hypoxic respiratory failure secondary to volume overload CHF. 3. Chronic kidney disease, mineral bone disorder. 4. History of MRSA bacteremia and endocarditis. PLAN: Hemodialysis today with goal UF 3-4 L as tolerated. Possible discharge in the next 24- 48 hours. MMODL / IJN: [id number] /
[2020-10-29] MEDS ORDERED: diphenhydrAMINE 50 MG/ML 1 ML VIAL IVP STA (16:35)
[2020-10-29] MEDS ORDERED: ASPIRIN 81 MG PO SCH (17:00)
[2020-10-29] MEDS ORDERED: FERROUS SULFATE 325 MG TAB PO SCH (17:00)
[2020-10-29] MEDS: INSULIN ASPART (NovoLOG) 100 UNIT/ML VIAL SQ SCH ×2 (18:46→20:00)
[2020-10-29] MEDS: DOCUSATE 100 MG CAP PO SCH (18:59)
[2020-10-29] MEDS: ACETAMINOPHEN TAB 325 MG TAB PO PRN (18:59)
[2020-10-29 19:30] LABS: Glucose,Whole Blood 117 mg/dL (75-99)
[2020-10-29] MEDS: APIXABAN 2.5 MG TABLET PO SCH (20:10)
[2020-10-29] MEDS: METOPROLOL TARTRATE 25 MG TAB PO SCH (20:10)
[2020-10-29] MEDS ORDERED: ATORVASTATIN 40 MG TAB PO SCH (21:00)
[2020-10-29] MEDS ORDERED: INSULIN DETEMIR (LEVEMIR) 100 UNIT/ML SYR SQ SCH (21:00)
[2020-10-29] MEDS ORDERED: GABAPENTIN 300 MG CAP PO SCH (21:00)
[2020-10-29] MEDS ORDERED: hydrALAZINE HCL 20 MG/ML 1 ML VIAL IVP STA (23:26)
[2020-10-30] MEDS: FUROSEMIDE 80 MG TAB PO SCH ×2 (05:46→13:01)
[2020-10-30] MEDS: hydrALAZINE HCL 25 MG TAB PO SCH ×2 (05:46→13:01)
[2020-10-30] MEDS ORDERED: metOLazone 5 MG TAB PO SCH (06:00)
[2020-10-30 06:28] LABS: Glucose,Whole Blood 101 mg/dL (75-99)
[2020-10-30] MEDS: INSULIN ASPART (NovoLOG) 100 UNIT/ML VIAL SQ SCH ×2 (06:52→13:01)
[2020-10-30] MEDS: ACETAMINOPHEN TAB 325 MG TAB PO PRN ×2 (06:52→13:00)
[2020-10-30] MEDS ORDERED: PANTOPRAZOLE 40 MG TABLET PO SCH (07:30)
[2020-10-30] MEDS ORDERED: AMIODARONE 200 MG TAB PO SCH (08:00)
[2020-10-30] MEDS: DOCUSATE 100 MG CAP PO SCH (08:53)
[2020-10-30] MEDS: APIXABAN 2.5 MG TABLET PO SCH (08:53)
[2020-10-30] MEDS: CHOLESTYRAMINE (WITH SUGAR) 4 GM PACKET PO SCH ×3 (08:54→13:01)
[2020-10-30] MEDS: METOPROLOL TARTRATE 25 MG TAB PO SCH (08:54)
[2020-10-30] MEDS: HYDROcodone/APAP 5-325MG 1 EACH TAB PO PRN (09:05)
[2020-10-30] MEDS ORDERED: LIDOCAINE 4% CREAM 5 GM TUBE TOPICAL PRN (10:05)
--- NOTE | 2020-10-30 10:13 | P.DS ---
Providers Date of admission: 10/29/20 09:07 Expected date of discharge: 10/30/20 Attending physician: Cordelia Pantoja Consults: 10/29/20 09:02 Consult Physician Routine Consulting Provider: [facility] Consult Reason/Comments: CHF exacerbation, fluid overload, elevated trop Do you want consulting provider notified?: Yes 10/29/20 09:03 Consult Physician Routine Consulting Provider: Janine Nguyen Consult Reason/Comments: fluid overload Do you want consulting provider notified?: Yes Primary care physician: Perry Christian [facility] Course: HISTORY OF PRESENT ILLNESS This is a 60-year-old male patient of Dr. Mckeon currently residing at [facility] under the care of Dr. 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 Patient was hospitalized in April 2020 at which time he was treated for sepsis and MRSA bacteremia of unclear etiology with metabolic encephalopathy va sovagal episode requiring brief CPR and patient was transferred to [facility]. Patient was treated for MRSA osteomyelitis of the lumbar spine. Patient had recent hospitalization September 19 and was transferred on September 30 to be [facility] due to sepsis with persistent MRSA bacteremia secondary to mitral valve vegetation, paraspinal abscess of the C1-C2. Patient was doing well at [facility] and developed shortness of breath was transferred to [facility] emergency center for further evaluation and treatment. He was found to be afebrile, heart rate 65, blood pressure 146/64, pulse ox 96% on room air. WBC 8.8, hemoglobin 11, platelet count 223. Electrolytes were normal. BUN 60 and creatinine 5.43. Blood sugar 103. Alkaline phosphatase 180. Lactic acid 0.8. Troponin 0.038. ProBNP 48,000. Solis virus not detected. Chest x-ray reveals cardiomegaly with new small left pleural effusion. Bilateral alveolar and interstitial reticulonodular opacities could reflect edema and/or infiltrates. There is concern the patient did not receive dialysis yesterday on the holiday. Patient seen in the emergency center and consult added for nephrology for dialysis treatment and cardiology consult for fluid overload. 10/30: Is seen sitting on the edge of the bed, awake alert and oriented 3. No deficits noted. Patient does not recall coming into the emergency center mental status is back to baseline, patient has been resumed on his home medication and underwent hemodialysis yesterday and scheduled tomorrow for his next treatment. Patient's been afebrile, heart rate 63, blood pressure 143/71, pulse ox 99% on room air. Patient has been seen and followed by both cardiology and nephrology. Patient will be discharged back to [facility] today in stable condition. ASSESSMENT AND PLAN 1. Shortness of breath secondary to fluid overload from missed dialysis treatment. 2. 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 Patient was transferred to [facility] and return to [facility] to complete 4 week course of IV vancomycin with dialysis. Antibiotic course started on October 19. 3. Metabolic encephalopathy secondary to fluid overload. 4. Recent treatment for MRSA bacteremia and lumbar spine osteomyelitis, completed course of antibiotics. 5. End-stage renal disease on hemodialysis. 6. Degenerative disc disease and spinal stenosis. 7. History of coronary artery disease with previous PTCA to LAD and circumflex. 8. Paroxysmal atrial fibrillation. 8. Ischemic cardiomyopathy. 9. Diabetes mellitus type 2, insulin requiring. 10. Diabetic neuropathy. 11. Hypertension. 12. Anemia of chronic disease. DISCHARGE PLAN Return to [facility]. Impression and plan of care have been directed as dictated by the signing physician. Katelyn Wesley nurse practitioner acting as scribe for signing physician. Patient Condition at Discharge: Good Plan - Discharge Summary Discharge Rx Participant: Yes New Discharge Prescriptions: New Lidocaine 4% Cream [Lmx 4] 1 applic TOPICAL Q4H PRN PRN Reason: Pain Melatonin 6 mg PO HS #30 tablet Vancomycin HCl in 5 % Dextrose [Vancomycin 1 Gram/250 ml-D5w] 1 gm IV TUTHSA #250 ml ALPRAZolam [Xanax] 0.25 mg PO BID PRN #6 tab PRN Reason: Anxiety Continue Furosemide [Lasix] 80 mg PO BID@0600,1400 INSULIN ASPART (NovoLOG) [NovoLOG (formulary)] See Protocol SQ ACHS Ferrous Sulfate [Iron (65 MG Elemental)] 325 mg PO DAILY@1700 Apixaban [Eliquis] 2.5 mg PO BID@0800,2100 ALPRAZolam [Xanax] 0.25 mg PO BID PRN PRN Reason: Anxiety Triamcinolone 0.1% Cream [Kenalog 0.1% Cream] 1 applic TOPICAL BID@0800,1700 Cholestyramine (with Sugar) [Cholestyramine Packet] 4 gm PO BID@0800,1400 Promethazine Soln 25 mg IM Q6H PRN PRN Reason: Nausea And Vomiting HYDROcodone/APAP 5-325MG [Johnson 5-325] 1 tab PO Q6HR PRN #12 tab PRN Reason: Pain bisacodyL [Dulcolax] 10 mg RECTAL DAILY PRN PRN Reason: Constipation Na Phos,M-B/Na Phos,Di-Ba [Fleet Adult] 133 ml RECTAL DAILY PRN PRN Reason: Constipation Aspirin EC [Ecotrin Low Dose] 81 mg PO DAILY@1700 Insulin Detemir (Levemir) [Levemir] 5 unit SQ HS@2100 Atorvastatin [Lipitor] 40 mg PO HS hydrALAZINE HCL [Apresoline] 75 mg PO TID@0600,1400,2100 Metoprolol Tartrate [Lopressor] 25 mg PO BID@0800,2100 Liquacel 30 ml PO BID@0800,2100 metOLazone [Zaroxolyn] 5 mg PO DAILY@0600 Amiodarone [Cordarone] 200 mg PO DAILY@0800 Magnesium Hydroxide [Milk of Magnesia] 2,400 mg PO Q48H PRN PRN Reason: Constipation Baclofen [Lioresal] 5 mg PO Q8H PRN PRN Reason: Muscle Spasm Acetaminophen [Tylenol 8 Hour] 650 mg PO Q4H PRN PRN Reason: general discomfort Mupirocin 2% Oint [Bactroban 2% Oint] 1 applic TOPICAL BID@0800,1700 Docusate [Colace] 100 mg PO BID@0800,1700 Gabapentin 300 mg PO HS@2100 #3 cap Discontinued Vancomycin Oral Solution 1 dose IV TUTHSA Discharge Medication List Furosemide [Lasix] 80 mg PO BID@0600,1400 04/13/19 [History] Aspirin EC [Ecotrin Low Dose] 81 mg PO DAILY@1700 08/12/20 [History] Ferrous Sulfate [Iron (65 MG Elemental)] 325 mg PO DAILY@169908/12/20 [History] INSULIN ASPART (NovoLOG) [NovoLOG (formulary)] See Protocol SQ ACHS 08/12/20 [History] Insulin Detemir (Levemir) [Levemir] 5 unit SQ HS@209908/12/20 [History] Na Phos,M-B/Na Phos,Di-Ba [Fleet Adult] 133 ml RECTAL DAILY PRN 08/12/20 [History] bisacodyL [Dulcolax] 10 mg RECTAL DAILY PRN 08/12/20 [History] Amiodarone [Cordarone] 200 mg PO DAILY@0809/19/20 [History] Apixaban [Eliquis] 2.5 mg PO BID@0800,209909/19/20 [History] Atorvastatin [Lipitor] 40 mg PO HS 09/19/20 [History] Liquacel 30 ml PO BID@0800,209909/19/20 [History] Metoprolol Tartrate [Lopressor] 25 mg PO BID@0800,209909/19/20 [History] hydrALAZINE HCL [Apresoline] 75 mg PO TID@0600,1400,209909/19/20 [History] metOLazone [Zaroxolyn] 5 mg PO DAILY@0609/19/20 [History] ALPRAZolam [Xanax] 0.25 mg PO BID PRN 10/29/20 [History] Acetaminophen [Tylenol 8 Hour] 650 mg PO Q4H PRN 10/29/20 [History] Baclofen [Lioresal] 5 mg PO Q8H PRN 10/29/20 [History] Cholestyramine (with Sugar) [Cholestyramine Packet] 4 gm PO BID@0800,1400 10/29/20 [History] Docusate [Colace] 100 mg PO BID@0800,169910/29/20 [History] Magnesium Hydroxide [Milk of Magnesia] 2,400 mg PO Q48H PRN 10/29/20 [History] Mupirocin 2% Oint [Bactroban 2% Oint] 1 applic TOPICAL BID@0800,169910/29/20 [History] Promethazine Soln 25 mg IM Q6H PRN 10/29/20 [History] Triamcinolone 0.1% Cream [Kenalog 0.1% Cream] 1 applic TOPICAL BID@0800,1700 10/29/20 [History] ALPRAZolam [Xanax] 0.25 mg PO BID PRN #6 tab 10/30/20 [Rx] Gabapentin 300 mg PO HS@2100 #3 cap 10/30/20 [Rx] HYDROcodone/APAP 5-325MG [Johnson 5-325] 1 tab PO Q6HR PRN #12 tab 10/30/20 [Rx] Lidocaine 4% Cream [Lmx 4] 1 applic TOPICAL Q4H PRN 10/30/20 [Rx] Melatonin 6 mg PO HS #30 tablet 10/30/20 [Rx] Vancomycin HCl in 5 % Dextrose [Vancomycin 1 Gram/250 ml-D5w] 1 gm IV TUTHSA #250 ml 10/30/20 [Rx] Follow up Appointment(s)/Referral(s): Perry Christian MD [Primary Care Provider] - 1 Week (at [facility]) Discharge Disposition: TRANSFER TO SNF/ECF
[2020-10-30 11:10] LABS: Calcium 9.3 mg/dL (8.4-10.2); Potassium 5.1 mmol/L (3.5-5.1)
--- NOTE | 2020-10-30 11:35 | P.PN ---
Subjective Patient is a pleasant 60-year-old male with history of end-stage renal disease on hemodialysis, coronary artery disease status post PCI of the circumflex and LAD in September 2018, paroxysmal atrial fibrillation, diabetes mellitus, hypertension, dyslipidemia and MRSA bacteremia who presents secondary to fevers. He does have a history of prior bacteremia in April 2020 and was given prolonged antibiotic treatment. 2-D echo 09/19/2020 which shows normal ejection fraction 55-60%, mild aortic stenosis, mild mitral regurgitation and no other significant valvular disease with RVSP of 57. 09/24/20 patient underwent YAYO with Dr. Bowie revealing vegetation on the posterior leaflet of the mitral valve with mitral regurgitation. Patient normally follows with Dr. Bowie. We are consulted for congestive heart failure. Patient seen and examined at bedside. He underwent hemodialysis yesterday, unclear how many liters were removed. He states he does not feel better. He denies symptoms of orthopnea or PND. He states he does still feel short of breath. He is maintaining oxygen saturations on room air. Denies any chest pain, palpitations, lightheadedness, dizziness. Blood pressure 143/71, heart rate 63, afebrile, maintaining saturations 99% on room air. Patient currently maintained on amiodarone 200 mg daily, Eliquis 2.5 mg twice a day, aspirin 81 mg daily, atorvastatin 40 mg nightly, Lasix by mouth 80 mg twice a day, hydralazine 75 mg 3 times a day, metoprolol titrate 25 mg twice a day PHYSICAL EXAM: VITAL SIGNS: Reviewed. GENERAL: Well-developed in no acute distress. NECK: Supple. No JVD or thyromegaly LUNGS: Respirations even and unlabored. Lungs diminished bilaterally. HEART: Regular rate and rhythm. S1 and S2 heard. Systolic murmur noted. EXTREMITIES: Normal range of motion. No clubbing or cyanosis. Peripheral pulses intact. 4+ bilateral pedal edema. 3+ bilateral lower extremity edema ASSESSMENT: Shortness of breath with fluid overload, appears to be related to hemodialysis. 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 From a cardiology perspective, we will continue current medical regimen. Patient to follow up outpatient with Dr. Bowie. Nurse practitioner note has been reviewed by physician. Signing provider agrees with the documented findings, assessment, and plan of care. Objective - Vital Signs Vital signs: Vital Signs Temp 98.1 F 10/30/20 08:00 Pulse 63 10/30/20 08:00 Resp 18 10/30/20 08:00 BP 143/71 10/30/20 08:00 Pulse Ox 99 10/30/20 08:00 Intake & Output 10/29/20 10/30/20 10/30/20 18:59 06:59 18:59 Intake Total 222 240 Balance 222 240 Weight 108.862 kg 103 kg Intake: Oral 222 240 Other: Voiding Method Urinal Diaper # Voids 1 - Labs CBC & Chem 7: 10/29/20 07:13 10/30/20 10:22 Labs: Abnormal Lab Results - Last 24 Hours (Table) 10/29/20 10/30/20 Range/Units 19:29 06:27 POC Glucose (mg/dL) 117 H 101 H (75-99) mg/dL
[2020-10-30 11:50] LABS: Glucose,Whole Blood 212 mg/dL (75-99)
[2020-10-30] MEDS: ALPRAZolam 0.25 MG TAB PO PRN (13:10)
--- NOTE | 2020-10-30 13:47 | PN ---
PROGRESS NOTE Patient is seen for followup for end-stage renal disease. He was admitted to the hospital with shortness of breath, fluid overload. The patient was dialyzed yesterday. We had about 3 L of fluid taken off. The patient is feeling much better. His breathing has improved. There are plans for discharge today. However, given the significant edema, I will add an extra treatment for about 2 hours for UF of 2-3 L as tolerated. PHYSICAL EXAMINATION: On examination today, blood pressure is 145/74, heart rate 58 per minute. He is afebrile. EXAMINATION OF THE HEART: S1 and S2. EXAMINATION OF LUNGS: Bilateral breath sounds are heard. ABDOMEN: Soft, nontender. LOWER EXTREMITIES: Examination of lower extremities shows edema 3+ bilaterally. SHOE STICKS REPAIRER EXAM: Grossly intact. LABS: Sodium 134, potassium 5.1, BUN 53, creatinine 4.67. ASSESSMENT: 1. End-stage renal disease, on hemodialysis on a Wednesday, , Wednesday schedule. 2. Volume overload, status post hemodialysis yesterday. We will plan for another extra treatment today. 3. Acute hypoxic respiratory failure secondary to fluid overload. 4. History of MRSA bacteremia and endocarditis, maintained on vancomycin. PLAN: Extra treatment of hemodialysis for a couple of hours today prior to discharge. Patient is advised to follow up with dialysis as outpatient for his treatment tomorrow. MMMELISSAL / IJN: [id number] /
--- NOTE | 2020-10-30 15:09 | CDI ---
Documentation Clarification Form Date: 10/30/2020 02:56:28 PM From: Nicolette Cottrell CCS, CCDS Admit Date: 10/29/2020 09:07:00 AM Patient Name: Joel Gillette Visit Number: [id number] Discharge Date: ATTENTION: The Clinical Documentation Specialists (CDI) and [facility] Coding Staff appreciate your assistance in clarifying documentation. Please respond to the clarification below the line at the bottom and electronically sign. The CDI & [facility] Coding staff will review the response and follow-up if needed. Please note: Queries are made part of the Legal Health Record. If you have any questions, please contact the author of this message via ITS. Dr. Nasim Wills: Your patient has the documented diagnosis of unspecified CHF in the 10/29 ED Note Past Medical History, the 10/29 H/P History and the 10/29 Cardiology Consult. Additional information regarding the Type & Acuity of CHF is requested. History/Risk Factors per the 10/29 H/P: Hypertension, Heart Failure, ESRD on Hemodialysis, Atrial Fibrillation, CAD, [place], Hyperlipidemia, Bilateral Neuropathy in Hands & Feet, Chronic Anemia, Blindness bilateral eyes, MRSA bacteremia secondary to Mitral Valve Vegetation & Paraspinal Abscess C1-C2, stated IV antibiotics on 10/19/2020. Clinical Indicators: Presented with SOB via EMS from [facility]. CXR: Cardiomegaly with small left pleural effusion. Patient missed Hemodialysis(?). Admitted with fluid overload. Per Nephrology Consult on 10/29, the patient did not miss Hemodialysis, his schedule is Wednesday, & Wednesday. 10/29 VS: T 98.6, P 65 - 57, R 16 - 10, BP 146/64, PO 96 RA - 100 on 3Lnc, BMI: 36.7 10/29 LAB: Hgb 11.0, Hct 35.2, Lymph 0.7, BUN 60, Creatinine 5.43, Glucose 103, Mag 2.4, Alk Phos 180, Troponin 0.038, 0.029, 0.028, BNP 18765. 10/29 CXR: Cardiomegaly with new small left pleural effusion. Bilateral alveolar & interstitial reticulonodular opacities could reflect edema and/or infiltrates. Most recent ECHO (09/11): Moderate concentric LVH, Left ventricular systolic function is normal w/EF 55-60%, Right ventricle is moderately enlarged, Mild aortic stenosis, Mild MR, Mild TR, Moderate to severe pulmonary hypertension. Treatment 10/29: Telemetry, Blood glucose monitoring, Insulin sliding scale, Hemodialysis, IV Lasix 40 mg x1. 10/30: Hemodialysis, po Lasix 80 mg BID. In your professional opinion, can you please clarify the Acuity and Type of CHF if known? [ ] Acute Diastolic Heart Failure [ ] Chronic Diastolic Heart Failure [ xx ] Acute on Chronic Diastolic Heart Failure [ ] Other, please specify [ ] Unable to determine (Template Last Revised: March 2020) MTDD
[2020-10-30 16:38] LABS: Glucose,Whole Blood 114 mg/dL (75-99)
[2020-10-31 09:43] VITALS: BP 162/75; PULSE 62; RESP 18; TEMP 97.8
== END 2020-10-30 17:30 | DRG 291 ==
LOC: EC 06:06 → 3SCARD 09:07
PROVIDERS: ADMIT Family Medicine; ATTEND Family Medicine
PROC: 5A1D70Z Performance of Urinary Filtration, Intermittent, Less than 6 Hours Per Day (ICD-10-PCS; principal; 2020-10-30)
DX: I13.2 Hypertensive heart and chronic kidney disease with heart failure and with stage 5 chronic kidney disease, or end stage renal disease (principal); G93.41 Metabolic encephalopathy; J96.01 Acute respiratory failure with hypoxia; N18.6 End stage renal disease; I50.33 Acute on chronic diastolic (congestive) heart failure; L02.212 Cutaneous abscess of back [any part, except buttock and flank]; M46.26 Osteomyelitis of vertebra, lumbar region; I38 Endocarditis, valve unspecified; R78.81 Bacteremia; D63.8 Anemia in other chronic diseases classified elsewhere; I25.10 Atherosclerotic heart disease of native coronary artery without angina pectoris; E11.22 Type 2 diabetes mellitus with diabetic chronic kidney disease; E11.40 Type 2 diabetes mellitus with diabetic neuropathy, unspecified; E11.69 Type 2 diabetes mellitus with other specified complication; E78.5 Hyperlipidemia, unspecified; F32.9 Major depressive disorder, single episode, unspecified; F41.9 Anxiety disorder, unspecified; G25.81 Restless legs syndrome; H54.8 Legal blindness, as defined in USA; E87.70 Fluid overload, unspecified; H91.90 Unspecified hearing loss, unspecified ear; I25.2 Old myocardial infarction; I25.5 Ischemic cardiomyopathy; M48.061 Spinal stenosis, lumbar region without neurogenic claudication; B95.62 Methicillin resistant Staphylococcus aureus infection as the cause of diseases classified elsewhere; E83.9 Disorder of mineral metabolism, unspecified; I48.0 Paroxysmal atrial fibrillation; M89.9 Disorder of bone, unspecified; Z79.01 Long term (current) use of anticoagulants; Z79.4 Long term (current) use of insulin; Z79.82 Long term (current) use of aspirin; Z79.899 Other long term (current) drug therapy; Z86.14 Personal history of Methicillin resistant Staphylococcus aureus infection; Z86.79 Personal history of other diseases of the circulatory system; Z87.11 Personal history of peptic ulcer disease; Z87.891 Personal history of nicotine dependence; Z95.5 Presence of coronary angioplasty implant and graft; Z99.2 Dependence on renal dialysis; Z91.15 Patient's noncompliance with renal dialysis; Z88.5 Allergy status to narcotic agent; Z88.0 Allergy status to penicillin; Z88.2 Allergy status to sulfonamides
CPT/HCPCS: 36415; 71046; 80048; 80053; 80202; 83605; 83735; 83880; 84484; 85025; 85610; 85730; 87635; 90935; 93005; 99285

== ENCOUNTER 2020-11-11 11:39 | Emergency (ER) | payer MEDICARE ==
[2020-11-11 11:49] VITALS: RESP 18; TEMP 97.9
--- NOTE | 2020-11-11 12:34 | ED ---
General Adult HPI - General Chief complaint: Altered Mental Status Stated complaint: Altered Mental Status Time Seen by Provider: 11/11/20 11:57 Source: patient, RN/MD Mode of arrival: EMS Limitations: altered mental status - History of Present Illness Initial comments: Dictation was produced using [employer] dictation software. please excuse any gramm atical, word or spelling errors. Chief Complaint: 60-year-old male sent in from [facility] for altered mental status History of Present Illness: She is 60-year-old male he presents to the emergency department from [facility]. Patient currently resident at the [facility] due to debility. According to nurse received report from EMS patient at baseline is usually alert and oriented 3 out of 4. Supposedly had an episode this morning where his mental status was 2 out of 4. Patient denies any complaints at this time. States that he has a mild headache. Patient gets dialysis Wednesday. He had partial dialysis on Wednesday. Patient denies any chest pain or shortness of breath. group home documentation reports that patient was also thought to be lethargic and had an episode of emesis. The ROS documented in this emergency department record has been reviewed and confirmed by me. Those systems with pertinent positive or negative responses have been documented in the HPI. All other systems are other negative and/or noncontributory. PHYSICAL EXAM: General Impression: Alert and oriented x3/4, not in acute distress HEENT: Normocephalic atraumatic, extra-ocular movements intact, pupils equal and reactive to light bilaterally, mucous membranes moist. Cardiovascular: Heart regular rate and rhythm Chest: Able to complete full sentences, no retractions, no tachypnea Abdomen: abdomen soft, non-tender, non-distended, no organomegaly Musculoskeletal: Pulses present and equal in all extremities, no peripheral edema Motor: no focal deficits noted Neurological: CN II-XII grossly intact, no focal motor or sensory deficits noted Skin: Intact with no visualized rashes Psych: Normal affect and mood ED course: 60-year-old male presents emergency department for chief complaint of episode of altered mental status. Vital signs upon arrival are within acceptable limits.Chest x-ray is unremarkable. Computed tomography scan of the brain shows no acute processes. Laboratory evaluation appears to be within patient's acceptable limits. Patient observed in emergency department for approximately 2 hours and 45 minutes and found to be in stable medical condition upon reevaluation at 2:30 PM. Patient will be discharge back to [facility] facility. EKG interpretation: Ventricular rate 69, normal sinus rhythm,. 170, QRS 88, QTc 450. No IA prolongation, no QTC prolongation, no ST or T-wave changes noted. EKG compared to 09/10/2020 showing no changes. Overall, this EKG is unremarkable - Related Data Home Medications Medication Instructions Recorded Confirmed Furosemide [Lasix] 80 mg PO BID@0600,1400 04/13/19 11/11/20 Ferrous Sulfate [Iron (65 MG 325 mg PO DAILY@169908/12/20 11/11/20 Elemental)] INSULIN ASPART (NovoLOG) [NovoLOG See Protocol SQ ACHS 08/12/20 11/11/20 (formulary)] Insulin Detemir (Levemir) [Levemir] 5 unit SQ HS@209908/12/20 11/11/20 bisacodyL [Dulcolax] 10 mg RECTAL DAILY PRN 08/12/20 11/11/20 Amiodarone [Cordarone] 200 mg PO DAILY@0800 09/19/20 11/11/20 Apixaban [Eliquis] 2.5 mg PO BID@0800,209909/19/20 11/11/20 Atorvastatin [Lipitor] 40 mg PO HS 09/19/20 11/11/20 Liquacel 30 ml PO BID@0800,209909/19/20 11/11/20 Metoprolol Tartrate [Lopressor] 25 mg PO BID@0800,209909/19/20 11/11/20 hydrALAZINE HCL [Apresoline] 75 mg PO TID@0600,1400,209909/19/20 11/11/20 metOLazone [Zaroxolyn] 5 mg PO DAILY@0800 09/19/20 11/11/20 Acetaminophen [Tylenol 8 Hour] 650 mg PO Q4H PRN 10/29/20 11/11/20 Baclofen [Lioresal] 5 mg PO Q8H PRN 10/29/20 11/11/20 Cholestyramine (with Sugar) 4 gm PO BID@0800,1700 10/29/20 11/11/20 [Cholestyramine Packet] Docusate [Colace] 100 mg PO BID@0800,1700 10/29/20 11/11/20 Mupirocin 2% Oint [Bactroban 2% 1 applic TOPICAL BID@0800,1700 10/29/20 11/11/20 Oint] Triamcinolone 0.1% Cream [Kenalog 1 applic TOPICAL BID@0800,1700 10/29/20 11/11/20 0.1% Cream] Aspirin 81 mg PO DAILY@1700 11/11/20 11/11/20 Butalb/Acetaminophen/Caffeine 1 cap PO Q6H PRN 11/11/20 11/11/20 [Fioricet 50-300-40 mg Capsule] HYDROcodone/APAP 5-325MG [Cooter 1 tab PO Q4H PRN 11/11/20 11/11/20 5-325] Ipratropium-Albuterol Nebulize 3 ml INHALATION RT-Q6H PRN 11/11/20 11/11/20 [Duoneb 0.5 mg-3 mg/3 ml Soln] Magnesium Hydroxide [Milk of 7,200 mg PO Q48H PRN 11/11/20 11/11/20 Magnesia Concentrate] Menthol-Zinc Oxide Oint 1 applic TOPICAL BID 11/11/20 11/11/20 [Calmoseptine Oint] Oxymetazoline 0.05% Nasl Cicero 1 spray EA NOSTRIL Q12H PRN 11/11/20 11/11/20 [Afrin 0.05% Nasal Cicero] Polyethylene Glycol 3350 [Miralax] 17 gm PO DAILY@0800 11/11/20 11/11/20 Vancomycin HCl in 5 % Dextrose 1 gm IV TUTHSA 11/11/20 11/11/20 [Vancomycin 1 Gram/250 ml-D5w] hydrOXYzine HCL 25 mg PO Q8H PRN 11/11/20 11/11/20 Previous Rx's Medication Instructions Recorded ALPRAZolam [Xanax] 0.25 mg PO BID PRN #6 tab 10/30/20 Gabapentin 300 mg PO HS@2100 #3 cap 10/30/20 Lidocaine 4% Cream [Lmx 4] 1 applic TOPICAL Q4H PRN 10/30/20 Melatonin 6 mg PO HS #30 tablet 10/30/20 Allergies Allergy/AdvReac Type Severity Reaction Status Date / Time codeine Allergy Unknown Verified 11/11/20 13:20 Penicillins Allergy Anaphylaxis Verified 11/11/20 13:20 sulfadiazine Allergy Unknown Verified 11/11/20 13:20 bumetanide [From Bumex] AdvReac Hallucinati Verified 11/11/20 13:20 ons morphine AdvReac Confusion Verified 11/11/20 13:20 rivaroxaban [From Xarelto] AdvReac Bloody Nose Verified 11/11/20 13:20 spironolactone AdvReac Hallucinati Verified 11/11/20 13:20 ons All antibiotics except Keflex Allergy Unknown Uncoded 09/19/20 06:44 Childhood Review of Systems ROS Statement: Those systems with pertinent positive or pertinent negative responses have been documented in the HPI. ROS Other: All systems not noted in ROS Statement are negative. Past Medical History Past Medical History: Atrial Fibrillation, Coronary Artery Disease (CAD), Heart Failure, Diabetes Mellitus, Dialysis, Eye Disorder, GERD/Reflux, Hearing Disorder / Deafness, Hyperlipidemia, Hypertension, Myocardial Infarction ([place]), Renal Disease, Syncope Additional Past Medical History / Comment(s): IDDM type II, neuropathy bilateral hands/feet, ESRD with hemodialysis on /W/, chronic anemia, LVH, Afib with RVR, MIs, chronic CHF, R eye blindness, L eye legally blind, RLS, pt unsure if he has gout, vertigo at times, balance issues at times, stomach ulcer at age 17yrs, sin us problems, very [place] R ear. Last Myocardial Infarction Date:: 08/09/18 History of Any Multi-Drug Resistant Organisms: MRSA Date of last positivie culture/infection: 09/20/20 MDRO Source:: Blood Past Surgical History: Heart Catheterization, Heart Catheterization With Stent Additional Past Surgical History / Comment(s): TTT, PD catheter placement/since removed, 2016 L arm fistula, fistula gram with balloon for stenosis, L eye vitrectomy, thyroid needle aspiration-negative, L leg cyst, colonoscopy with benign polypectomy. port placed in chest Right side. Past Anesthesia/Blood Transfusion Reactions: Postoperative Nausea & Vomiting (PONV) Date of Last Stent Placement:: 03-03-18 Past Psychological History: Anxiety, Depression Smoking Status: Never smoker Past Alcohol Use History: None Reported Past Drug Use History: None Reported - Past Family History Father Family Medical History: Cancer, Coronary Artery Disease (CAD), Hyperlipidemia Additional Family Medical History / Comment(s): Lung/BRAIN CANCER Mother Family Medical History: Diabetes Mellitus, Deep Vein Thrombosis (DVT), Os teoarthritis (OA) Additional Family Medical History / Comment(s): DJD Sister(s) Family Medical History: Diabetes Mellitus Additional Family Medical History / Comment(s): Patient has one sister with diabetes mellitus type 2, SLE, MS. Brother(s) Family Medical History: Diabetes Mellitus Additional Family Medical History / Comment(s): Patient has 4 kids no major m edical problems. Daughter(s) Family Medical History: No Reported History Additional Family Medical History / Comment(s): Patient has 2 daughters no major medical problems. Son(s) Family Medical History: No Reported History Additional Family Medical History / Comment(s): Patient has 2 sons no major medical problems. General Exam Limitations: altered mental status Course Vital Signs 11/11/20 11/11/20 11/11/20 11:43 12:49 13:00 Temperature 97.9 F 97.9 F Pulse Rate 69 73 73 Respiratory 18 18 18 Rate Blood Pressure 171/83 164/71 O2 Sat by Pulse 100 100 100 Oximetry Medical Decision Making - Lab Data Result diagrams: 11/11/20 12:57 11/11/20 12:57 Lab Results 11/11/20 11/11/20 Range/Units 12:57 12:57 WBC 8.9 (3.8-10.6) k/uL RBC 2.73 L (4.30-5.90) m/uL Hgb 8.5 L D (13.0-17.5) gm/dL Hct 25.7 L (39.0-53.0) % MCV 94.0 D (80.0-100.0) fL MCH 30.9 (25.0-35.0) pg MCHC 32.9 (31.0-37.0) g/dL RDW 15.7 H (11.5-15.5) % Plt Count 210 (150-450) k/uL MPV 8.2 Neutrophils % 79 % Lymphocytes % 6 % Monocytes % 6 % Eosinophils % 4 % Basophils % 1 % Neutrophils # 7.0 (1.3-7.7) k/uL Lymphocytes # 0.6 L (1.0-4.8) k/uL Monocytes # 0.6 (0-1.0) k/uL Eosinophils # 0.4 (0-0.7) k/uL Basophils # 0.1 (0-0.2) k/uL Sodium 134 L (137-145) mmol/L Potassium 5.8 H (3.5-5.1) mmol/L Chloride 97 L (98-107) mmol/L Carbon Dioxide 24 (22-30) mmol/L Anion Gap 13 mmol/L BUN 114 H* (9-20) mg/dL Creatinine 5.33 H (0.66-1.25) mg/dL Est GFR (CKD-EPI)AfAm 12 (>60 ml/min/1.73 sqM) Est GFR (CKD-EPI)NonAf 11 (>60 ml/min/1.73 sqM) Glucose 117 H (74-99) mg/dL Calcium 9.4 (8.4-10.2) mg/dL Magnesium 2.2 (1.6-2.3) mg/dL Total Bilirubin 0.6 (0.2-1.3) mg/dL AST 32 (17-59) U/L ALT 30 (4-49) U/L Alkaline Phosphatase 136 H (38-126) U/L Total Protein 6.7 (6.3-8.2) g/dL Albumin 4.0 (3.5-5.0) g/dL Disposition Clinical Impression: Altered mental status Disposition: HOME SELF-CARE Condition: Good Instructions (If sedation given, give patient instructions): Altered Mental Status (ED) Is patient prescribed a controlled substance at d/c from ED?: No Referrals: Perry Christian MD [Primary Care Provider] - 1-2 days
[2020-11-11 13:01] VITALS: PULSE 73
[2020-11-11 13:18] LABS: Basophils # (A) 0.1 k/uL (0-0.2); Basophils % (A) 1 %; Eosinophils # (A) 0.4 k/uL (0-0.7); Eosinophils % (A) 4 %; HCT 25.7 % (39.0-53.0); Lymphocytes # (A) 0.6 k/uL (1.0-4.8); Lymphocytes % (A) 6 %; MCH 30.9 pg (25.0-35.0); MCHC 32.9 g/dL (31.0-37.0); Mean Platelet Volume 8.2; Monocytes # (A) 0.6 k/uL (0-1.0); Monocytes % (A) 6 %; Neutrophils % (A) 79 %; Platelet Count 210 k/uL (150-450); RBC 2.73 m/uL (4.30-5.90); RDW 15.7 % (11.5-15.5); WBC 8.9 k/uL (3.8-10.6)
[2020-11-11 13:24] LABS: HGB 8.5 gm/dL (13.0-17.5)
[2020-11-11 13:29] LABS: Calcium 9.4 mg/dL (8.4-10.2); Magnesium 2.2 mg/dL (1.6-2.3); Potassium 5.8 mmol/L (3.5-5.1); Total Bilirubin 0.6 mg/dL (0.2-1.3); Total Protein 6.7 g/dL (6.3-8.2)
--- NOTE | 2020-11-11 13:29 | XR ---
EXAMINATION TYPE: XR chest 1V portable DATE OF EXAM: 11/11/2020 HISTORY: Shortness of breath. COMPARISON: 10/29/20 TECHNIQUE: Single view of the chest is submitted. FINDINGS: Demonstrated are scattered senescent parenchymal change. There is no evidence for focal infiltrate. The heart is stable. Hilar and mediastinal structures are within normal limits. Degenerative changes are seen of the dorsal spine. IMPRESSION: 1. Chronic changes without evidence for acute pulmonary disease.
--- NOTE | 2020-11-11 13:43 | CT ---
EXAMINATION TYPE: CT brain wo con DATE OF EXAM: 11/11/2020 COMPARISON: CT brain 09/26/2020 HISTORY: Mental status changes. CT DLP: 1173.4 mGycm Automated exposure control for dose reduction was used. FINDINGS: There is no significant interval change. There is arthropathy present at the atlantoaxial joint, wide jose of the atlantodens index similar to prior exam, some stenosis is suspected at the cervical medul lianna junction as on prior. Cerebral vascular calcifications are present. IMPRESSION: No acute abnormality. Additional findings above.
[2020-11-11 15:26] VITALS: BP 141/56
== END 2020-11-11 15:39 | disposition home or self-care (01) ==
LOC: EC 11:39
DX: R41.82 Altered mental status, unspecified (principal); I13.2 Hypertensive heart and chronic kidney disease with heart failure and with stage 5 chronic kidney disease, or end stage renal disease; E11.22 Type 2 diabetes mellitus with diabetic chronic kidney disease; I50.9 Heart failure, unspecified; N18.6 End stage renal disease; D63.1 Anemia in chronic kidney disease; K21.9 Gastro-esophageal reflux disease without esophagitis; I25.10 Atherosclerotic heart disease of native coronary artery without angina pectoris; I48.91 Unspecified atrial fibrillation; E78.5 Hyperlipidemia, unspecified; I25.2 Old myocardial infarction; F32.9 Major depressive disorder, single episode, unspecified; F41.9 Anxiety disorder, unspecified; Z79.4 Long term (current) use of insulin; Z79.01 Long term (current) use of anticoagulants; Z79.82 Long term (current) use of aspirin; Z88.0 Allergy status to penicillin; Z88.2 Allergy status to sulfonamides; Z88.5 Allergy status to narcotic agent; Z88.1 Allergy status to other antibiotic agents; Z99.2 Dependence on renal dialysis
CPT/HCPCS: 36415; 70450; 71045; 80053; 83735; 85025; 93005; 99285

== ENCOUNTER 2020-11-11 17:13 | Inpatient (IN) | payer MEDICARE ==
[2020-11-11] MEDS ORDERED: ONDANSETRON 4 MG/2 ML VIAL IVP STA (17:24)
--- NOTE | 2020-11-11 17:24 | ED ---
General Adult HPI - General Stated complaint: Altered Mental Status Time Seen by Provider: 11/11/20 17:20 - History of Present Illness Initial comments: Dictation was produced using [employer] dictation software. please excuse any grammatical, word or spelling errors. Chief Complaint: 60-year-old male with past medical history of ESRD presents back to the emergency department for vomiting, lethargy History of Present Illness: 60-year-old male please see history of present illness from emergency visit earlier today sent back to the emergency department because by the time he got back to [facility] he started showing signs of lethargy, vomiting. [facility] reports that they were not comfortable with patient's clinical presentation. Patient states that he does feel nauseated had a couple episodes of nonbilious not bloody emesis. He reports having a mild headache holocranial headache. The ROS documented in this emergency department record has been reviewed and confirmed by me. Those systems with pertinent positive or negative responses have been documented in the HPI. All other systems are other negative and/or noncontributory. PHYSICAL EXAM: General Impression: Alert and oriented x3, accurately answers person, place and time, not in acute distress HEENT: Normocephalic atraumatic, extra-ocular movements intact, pupils equal and reactive to light bilaterally, mucous membranes moist. Cardiovascular: Heart regular rate and rhythm Chest: Able to complete full sentences, no retractions, no tachypnea Abdomen: abdomen soft, non-tender, non-distended, no organomegaly Musculoskeletal: Pulses present and equal in all extremities, no peripheral edema Motor: no focal deficits noted Neurological: CN II-XII grossly intact, no focal motor or sensory deficits noted Skin: Intact with no visualized rashes Psych: Normal affect and mood ED course: 60-year-old male presents to the emergency department for nausea vomiting, vital signs upon arrival are within acceptable limits. Patient again is well-appearing at bedside. Patient given Zofran. Patient answered questions appropriately. Patient labs and imaging was reviewed from earlier. patient's second visit in the same day patient will be admitted to the hospital for further care. At the bedside he is well-appearing he not showing signs of distress. He has no pain complaints. Case discussed with Dr. Christian who is willing to accept patients care. Primary care physician once patient admitted for dialysis. He is not showing signs of respiratory distress and is not hyperkalemic. Renal markers are higher than his usual upper limits. Perhaps patient's symptoms are secondary to inadequate dialysis. Patient will be admitted. nephrology consulted. - Related Data Home Medications Medication Instructions Recorded Confirmed Furosemide [Lasix] 80 mg PO BID@0600,1400 04/13/19 11/11/20 Ferrous Sulfate [Iron (65 MG 325 mg PO DAILY@0 08/12/20 11/11/20 Elemental)] INSULIN ASPART (NovoLOG) [NovoLOG See Protocol SQ ACHS 08/12/20 11/11/20 (formulary)] Insulin Detemir (Levemir) [Levemir] 5 unit SQ HS@209908/12/20 11/11/20 bisacodyL [Dulcolax] 10 mg RECTAL DAILY PRN 08/12/20 11/11/20 Amiodarone [Cordarone] 200 mg PO DAILY@0800 09/19/20 11/11/20 Apixaban [Eliquis] 2.5 mg PO BID@0800,209909/19/20 11/11/20 Atorvastatin [Lipitor] 40 mg PO HS 09/19/20 11/11/20 Liquacel 30 ml PO BID@0800,209909/19/20 11/11/20 Metoprolol Tartrate [Lopressor] 25 mg PO BID@0800,209909/19/20 11/11/20 hydrALAZINE HCL [Apresoline] 75 mg PO TID@0600,1400,209909/19/20 11/11/20 metOLazone [Zaroxolyn] 5 mg PO DAILY@0809/19/20 11/11/20 Acetaminophen [Tylenol 8 Hour] 650 mg PO Q4H PRN 10/29/20 11/11/20 Baclofen [Lioresal] 5 mg PO Q8H PRN 10/29/20 11/11/20 Cholestyramine (with Sugar) 4 gm PO BID@0800,169910/29/20 11/11/20 [Cholestyramine Packet] Docusate [Colace] 100 mg PO BID@0800,0 10/29/20 11/11/20 Mupirocin 2% Oint [Bactroban 2% 1 applic TOPICAL BID@0800,1700 10/29/20 11/11/20 Oint] Triamcinolone 0.1% Cream [Kenalog 1 applic TOPICAL BID@0800,1700 10/29/20 11/11/20 0.1% Cream] Aspirin 81 mg PO DAILY@1700 11/11/20 11/11/20 Butalb/Acetaminophen/Caffeine 1 cap PO Q6H PRN 11/11/20 11/11/20 [Fioricet 50-300-40 mg Capsule] HYDROcodone/APAP 5-325MG [[place] 1 tab PO Q4H PRN 11/11/20 11/11/20 5-325] Ipratropium-Albuterol Nebulize 3 ml INHALATION RT-Q6H PRN 11/11/20 11/11/20 [Duoneb 0.5 mg-3 mg/3 ml Soln] Magnesium Hydroxide [Milk of 7,200 mg PO Q48H PRN 11/11/20 11/11/20 Magnesia Concentrate] Menthol-Zinc Oxide Oint 1 applic TOPICAL BID 11/11/20 11/11/20 [Calmoseptine Oint] Oxymetazoline 0.05% Nasl [place] 1 spray EA NOSTRIL Q12H PRN 11/11/20 11/11/20 [Afrin 0.05% Nasal [place]] Polyethylene Glycol 3350 [Miralax] 17 gm PO DAILY@0800 11/11/20 11/11/20 Vancomycin HCl in 5 % Dextrose 1 gm IV TUTHSA 11/11/20 11/11/20 [Vancomycin 1 Gram/250 ml-D5w] hydrOXYzine HCL 25 mg PO Q8H PRN 11/11/20 11/11/20 Previous Rx's Medication Instructions Recorded ALPRAZolam [Xanax] 0.25 mg PO BID PRN #6 tab 10/30/20 Gabapentin 300 mg PO HS@2100 #3 cap 10/30/20 Lidocaine 4% Cream [Lmx 4] 1 applic TOPICAL Q4H PRN 10/30/20 Melatonin 6 mg PO HS #30 tablet 10/30/20 Allergies Allergy/AdvReac Type Severity Reaction Status Date / Time codeine Allergy Unknown Verified 11/11/20 13:20 Penicillins Allergy Anaphylaxis Verified 11/11/20 13:20 sulfadiazine Allergy Unknown Verified 11/11/20 13:20 bumetanide [From Bumex] AdvReac Hallucinati Verified 11/11/20 13:20 ons morphine AdvReac Confusion Verified 11/11/20 13:20 rivaroxaban [From Xarelto] AdvReac Bloody Nose Verified 11/11/20 13:20 spironolactone AdvReac Hallucinati Verified 11/11/20 13:20 ons All antibiotics except Keflex Allergy Unknown Uncoded 09/19/20 06:44 Childhood Review of Systems ROS Statement: Those systems with pertinent positive or pertinent negative responses have been documented in the HPI. ROS Other: All systems not noted in ROS Statement are negative. Past Medical History Past Medical History: Atrial Fibrillation, Coronary Artery Disease (CAD), Heart Failure, Diabetes Mellitus, Dialysis, Eye Disorder, GERD/Reflux, Hearing Disorder / Deafness, Hyperlipidemia, Hypertension, Myocardial Infarction ([place]), Renal Disease, Syncope Additional Past Medical History / Comment(s): IDDM type II, neuropathy bilateral hands/feet, ESRD with hemodialysis on M/W/, chronic anemia, LVH, Afib with RVR, MIs, chronic CHF, R eye blindness, L eye legally blind, RLS, pt unsure if he has gout, vertigo at times, balance issues at times, stomach ulcer at age 17yrs, sinus problems, very [place] R ear. Last Myocardial Infarction Date:: 08/09/18 History of Any Multi-Drug Resistant Organisms: MRSA Date of last positivie culture/infection: 09/20/20 MDRO Source:: Blood Past Surgical History: Heart Catheterization, Heart Catheterization With Stent Additional Past Surgical History / Comment(s): TTT, PD catheter placement/since removed, 2016 L arm fistula, fistula gram with balloon for stenosis, L eye vitrectomy, thyroid needle aspiration-negative, L leg cyst, colonoscopy with benign polypectomy. port placed in chest Right side. Past Anesthesia/Blood Transfusion Reactions: Postoperative Nausea & Vomiting (PONV) Date of Last Stent Placement:: 03-03-18 Past Psychological History: Anxiety, Depression Smoking Status: Never smoker Past Alcohol Use History: None Reported Past Drug Use History: None Reported - Past Family History Father Family Medical History: Cancer, Coronary Artery Disease (CAD), Hyperlipidemia Additional Family Medical History / Comment(s): Lung/BRAIN CANCER Mother Family Medical History: Diabetes Mellitus, Deep Vein Thrombosis (DVT), Osteoarthritis (OA) Additional Family Medical History / Comment(s): DJD Sister(s) Family Medical History: Diabetes Mellitus Additional Family Medical History / Comment(s): Patient has one sister with diabetes mellitus type 2, SLE, MS. Brother(s) Family Medical History: Diabetes Mellitus Additional Family Medical History / Comment(s): Patient has 4 kids no major medical problems. Daughter(s) Family Medical History: No Reported History Additional Family Medical History / Comment(s): Patient has 2 daughters no major medical problems. Son(s) Family Medical History: No Reported History Additional Family Medical History / Comment(s): Patient has 2 sons no major medical problems. Course Vital Signs 11/11/20 17:24 Temperature 97.9 F Pulse Rate 76 Respiratory 18 Rate Blood Pressure 122/52 O2 Sat by Pulse 97 Oximetry Disposition Clinical Impression: Nausea & vomiting Disposition: ADMITTED IP TO THIS [facility] Condition: Fair Referrals: Perry Christian MD [Primary Care Provider] - 1-2 days
[2020-11-11] MEDS ORDERED: NALOXONE 0.4 MG/ML 1 ML VIAL IV PRN (17:44)
[2020-11-11] MEDS ORDERED: HYDROmorphone 0.5 MG/0.5 ML SYRINGE IVP STA (17:51)
[2020-11-11] MEDS ORDERED: ACETAMINOPHEN TAB 500 MG TAB PO STA (17:53)
[2020-11-11] MEDS ORDERED: BACLOFEN 10 MG TAB PO STA (18:30)
[2020-11-11] MEDS: SODIUM CHLORIDE 0.9% 1,000 ML IV SCH (18:35)
[2020-11-11] MEDS: ACETAMINOPHEN TAB 325 MG TAB PO PRN (21:47)
[2020-11-11] MEDS ORDERED: MAGNESIUM HYDROXIDE 2,400 MG/10 ML CUP PO PRN (21:51)
[2020-11-11] MEDS ORDERED: NON FORMULARY DRUG (Acetaminophen [Tylenol 8 Hour] 650 MG Tablet) PO PRN (21:51)
[2020-11-11] MEDS ORDERED: bisacodyL 10 MG SUPP RECTAL PRN (21:51)
[2020-11-11] MEDS ORDERED: VANCOMYCIN 1,500 MG in SODIUM CHLORIDE 0.9% 250 ML IVPB ONE (22:45)
[2020-11-11] MEDS ORDERED: VANCOMYCIN IV PER PHARMACY 1 EACH MISC MISCELLANE PRN (22:48)
[2020-11-12 07:13] LABS: Glucose,Whole Blood 175 mg/dL (75-99)
[2020-11-12] MEDS ORDERED: NON FORMULARY DRUG (Liquacel 30 ML) PO SCH (08:00)
[2020-11-12] MEDS: DOCUSATE 100 MG CAP PO SCH ×2 (08:56→20:35)
[2020-11-12] MEDS: CHOLESTYRAMINE (WITH SUGAR) 4 GM PACKET PO SCH ×2 (08:56→17:19)
[2020-11-12] MEDS: AMIODARONE 200 MG TAB PO SCH (08:56)
[2020-11-12] MEDS: FUROSEMIDE 80 MG TAB PO SCH ×2 (08:56→16:51)
[2020-11-12] MEDS: hydrALAZINE HCL 25 MG TAB PO SCH ×3 (08:57→21:00)
[2020-11-12] MEDS: METOPROLOL TARTRATE 25 MG TAB PO SCH ×2 (08:57→20:35)
[2020-11-12] MEDS: metOLazone 5 MG TAB PO SCH (08:57)
[2020-11-12] MEDS: polyethylene glycoL 3350 17 GM POWD.PACK PO SCH (08:58)
[2020-11-12] MEDS ORDERED: APIXABAN 2.5 MG TABLET PO SCH (09:00)
[2020-11-12 09:07] LABS: Basophils # (A) 0.1 k/uL (0-0.2); Basophils % (A) 1 %; Eosinophils % (A) 0 %; HCT 21.2 % (39.0-53.0); Lymphocytes # (A) 0.5 k/uL (1.0-4.8); Lymphocytes % (A) 4 %; MCH 31.2 pg (25.0-35.0); MCHC 32.2 g/dL (31.0-37.0); MCV 96.8 fL (80.0-100.0); Mean Platelet Volume 8.3; Monocytes # (A) 0.4 k/uL (0-1.0); Monocytes % (A) 4 %; Neutrophils # (A) 9.8 k/uL (1.3-7.7); Neutrophils % (A) 89 %; Platelet Count 224 k/uL (150-450); RBC 2.19 m/uL (4.30-5.90); WBC 10.9 k/uL (3.8-10.6)
[2020-11-12 09:09] LABS: HGB 6.8 gm/dL (13.0-17.5)
[2020-11-12 10:08] LABS: ALT 25 U/L (4-49); AST 27 U/L (17-59); African American GFR (CKD) 10 (>60 ml/min/1.73 sqM); Albumin 3.9 g/dL (3.5-5.0); Albumin/Globulin Ratio 1.6; Alkaline Phosphatase 131 U/L (38-126); Anion Gap 25 mmol/L; Calcium 9.4 mg/dL (8.4-10.2); Carbon Dioxide 14 mmol/L (22-30); Chloride 97 mmol/L (98-107); Globulin 2.4 g/dL; Glucose 171 mg/dL (74-99); Lipase 124 U/L (23-300); Magnesium 2.5 mg/dL (1.6-2.3); Non-African American GFR(CKD) 8 (>60 ml/min/1.73 sqM); Sodium 136 mmol/L (137-145); Total Bilirubin 0.5 mg/dL (0.2-1.3); Total Protein 6.3 g/dL (6.3-8.2)
[2020-11-12 10:11] LABS: Blood Urea Nitrogen 157 mg/dL (9-20)
[2020-11-12 11:15] LABS: Glucose,Whole Blood 174 mg/dL (75-99)
[2020-11-12] MEDS ORDERED: DESMOPRESSIN ACETATE 20 MCG in SODIUM CHLORIDE 0.9% 50 ML IVPB ONE (12:00)
--- NOTE | 2020-11-12 12:04 | P.CNPUL ---
History of Present Illness Consult date: 11/12/20 Requesting physician: Perry Christian Reason for consult: other Chief complaint: Lethargy, vomiting, GI bleed. History of present illness: Pulmonary consult dated 11/12/2020. 60-year-old male, who was seen in the emergency department, on November 11. He was seen by one of the ER physicians. The patient does have a history of end- stage renal disease, and presented to the emergency department with lethargy, and vomiting. The patient apparently came from [facility]. The patient was recently discharged from this hospital on October 30. He apparently is been at [facility] since. His clinical appearance was poor, and they felt uncomfortable and they sent him here to be evaluated. The patient was admitted to room 477. Apparently last night, the patient was having issues of tarry stools and maroon stools, and the patient apparently was also hypotensive. The patient had apparently missed dialysis this past Wednesday. Anyway, the patient was transferred to the intensive care unit is now in room 262. The patient is currently undergoing hemodialysis. In addition, the hemoglobin was found to be 6.8, and 2 units of blood was ordered. He apparently may have a colonoscopy tomorrow, November 13. His heart rate is 75, his saturations on 2 L or 99%, and his blood pressure is 110/65. We will get a chest x-ray. White count 10.9, hemoglobin 6.8, hematocrit 21.2, and platelet count 224,000. Sodium 136, potassium 6, chlorides 97, CO2 14, anion gap 25, and BUN and creatinine are 157 and 6.48. The N-terminal proBNP was 32,200. His coronavirus testing was negative. No chest x-ray had yet been done. The patient was seen by our group last in March. This is right around mid March at which time the patient apparently had a brief episode of cardiopulmonary arrest. The patient was resuscitated. We have not seen him since that admission. Review of Systems REVIEW OF SYSTEMS: CONSTITUTIONAL: Lethargy. NEUROLOGIC: [ Negative.] HEENT: [ Negative.] CARDIAC: [Negative.] PULMONARY: [Negative.] GI: GI bleed, nausea. : [Negative.] RHEUMATOLOGIC: [ Negative.] IMMUNOLOGIC: [ Negative.] ENDOCRINE: [Negative. ] DERMATOLOGIC: [Negative.] Past Medical History Past Medical History: Atrial Fibrillation, Coronary Artery Disease (CAD), Heart Failure, Diabetes Mellitus, Dialysis, Eye Disorder, GERD/Reflux, Hearing Disorder / Deafness, Hyperlipidemia, Hypertension, Myocardial Infarction ([place]), Renal Disease, Syncope Additional Past Medical History / Comment(s): IDDM type II, neuropathy bilateral hands/feet, ESRD with hemodialysis on M/W/F, chronic anemia, LVH, Afib with RVR, MIs, chronic CHF, R eye blindness, L eye legally blind, RLS, pt unsure if he has gout, vertigo at times, balance issues at times, stomach ulcer at age 17yrs, sinus problems, very [place] R ear. Last Myocardial Infarction Date:: 08/09/18 History of Any Multi-Drug Resistant Organisms: MRSA Date of last positivie culture/infection: 09/20/20 MDRO Source:: Blood Past Surgical History: Heart Catheterization, Heart Catheterization With Stent Additional Past Surgical History / Comment(s): TTT, PD catheter placement/since removed, 2016 L arm fistula, fistula gram with balloon for stenosis, L eye vitrectomy, thyroid needle aspiration-negative, L leg cyst, colonoscopy with benign polypectomy. port placed in chest Right side. Past Anesthesia/Blood Transfusion Reactions: Postoperative Nausea & Vomiting (PONV) Date of Last Stent Placement:: 03-03-18 Past Psychological History: Anxiety, Depression Additional Psychological History / Comment(s): Pt resides with his spouse, AND SON. He is legally blind L eye and blind in R eye. He is very [place] in R ear. He has a cane and walker which he uses prn. His spouse and son drive. Pt uses glasses and a magnifier to read. He has depression which he states is constantly present but not increased. He denies thoughts/plans of suicide. Smoking Status: Never smoker Past Alcohol Use History: None Reported Additional Past Alcohol Use History / Comment(s): Pt started smoking in 1972 and quit in 1995. Past Drug Use History: None Reported - Past Family History Father Family Medical History: Cancer, Coronary Artery Disease (CAD), Hyperlipidemia Additional Family Medical History / Comment(s): Lung/BRAIN CANCER Mother Family Medical History: Diabetes Mellitus, Deep Vein Thrombosis (DVT), Osteoarthritis (OA) Additional Family Medical History / Comment(s): DJD Sister(s) Family Medical History: Diabetes Mellitus Additional Family Medical History / Comment(s): Patient has one sister with diabetes mellitus type 2, SLE, MS. Brother(s) Family Medical History: Diabetes Mellitus Additional Family Medical History / Comment(s): Patient has 4 kids no major medical problems. Daughter(s) Family Medical History: No Reported History Additional Family Medical History / Comment(s): Patient has 2 daughters no major medical problems. Son(s) Family Medical History: No Reported History Additional Family Medical History / Comment(s): Patient has 2 sons no major medical problems. Medications and Allergies Home Medications Medication Instructions Recorded Confirmed Type Furosemide [Lasix] 80 mg PO BID@0600,1400 04/13/19 11/11/20 History Ferrous Sulfate [Iron (65 MG 325 mg PO DAILY@1700 08/12/20 11/11/20 History Elemental)] INSULIN ASPART (NovoLOG) [NovoLOG See Protocol SQ [facility] 08/12/20 11/11/20 History (formulary)] Insulin Detemir (Levemir) [Levemir] 5 unit SQ HS@209908/12/20 11/11/20 History bisacodyL [Dulcolax] 10 mg RECTAL DAILY PRN 08/12/20 11/11/20 History Amiodarone [Cordarone] 200 mg PO DAILY@0800 09/19/20 11/11/20 History Apixaban [Eliquis] 2.5 mg PO BID@0800,209909/19/20 11/11/20 History Atorvastatin [Lipitor] 40 mg PO HS 09/19/20 11/11/20 History Liquacel 30 ml PO BID@0800,209909/19/20 11/11/20 History Metoprolol Tartrate [Lopressor] 25 mg PO BID@0800,209909/19/20 11/11/20 History hydrALAZINE HCL [Apresoline] 75 mg PO TID@0600,1400,209909/19/20 11/11/20 History metOLazone [Zaroxolyn] 5 mg PO DAILY@0800 09/19/20 11/11/20 History Acetaminophen [Tylenol 8 Hour] 650 mg PO Q4H PRN 10/29/20 11/11/20 History Baclofen [Lioresal] 5 mg PO Q8H PRN 10/29/20 11/11/20 History Cholestyramine (with Sugar) 4 gm PO BID@0800,1700 10/29/20 11/11/20 History [Cholestyramine Packet] Docusate [Colace] 100 mg PO BID@0800,1700 10/29/20 11/11/20 History Mupirocin 2% Oint [Bactroban 2% 1 applic TOPICAL BID@0800,1700 10/29/20 11/11/20 History Oint] Triamcinolone 0.1% Cream [Kenalog 1 applic TOPICAL BID@0800,1700 10/29/20 11/11/20 History 0.1% Cream] ALPRAZolam [Xanax] 0.25 mg PO BID PRN #6 tab 10/30/20 11/11/20 Rx Gabapentin 300 mg PO HS@2100 #3 cap 10/30/20 11/11/20 Rx Lidocaine 4% Cream [Lmx 4] 1 applic TOPICAL Q4H PRN 10/30/20 11/11/20 Rx Melatonin 6 mg PO HS #30 tablet 10/30/20 11/11/20 Rx Aspirin 81 mg PO DAILY@1700 11/11/20 11/11/20 History Butalb/Acetaminophen/Caffeine 1 cap PO Q6H PRN 11/11/20 11/11/20 History [Fioricet 50-300-40 mg Capsule] HYDROcodone/APAP 5-325MG [[place] 1 tab PO Q4H PRN 11/11/20 11/11/20 History 5-325] Ipratropium-Albuterol Nebulize 3 ml INHALATION RT-Q6H PRN 11/11/20 11/11/20 History [Duoneb 0.5 mg-3 mg/3 ml Soln] Magnesium Hydroxide [Milk of 7,200 mg PO Q48H PRN 11/11/20 11/11/20 History Magnesia Concentrate] Menthol-Zinc Oxide Oint 1 applic TOPICAL BID 11/11/20 11/11/20 History [Calmoseptine Oint] Oxymetazoline 0.05% Nasl [place] 1 spray EA NOSTRIL Q12H PRN 11/11/20 11/11/20 History [Afrin 0.05% Nasal [place]] Polyethylene Glycol 3350 [Miralax] 17 gm PO DAILY@0800 11/11/20 11/11/20 History Vancomycin HCl in 5 % Dextrose 1 gm IV TUTHSA 11/11/20 11/11/20 History [Vancomycin 1 Gram/250 ml-D5w] hydrOXYzine HCL 25 mg PO Q8H PRN 11/11/20 11/11/20 History Allergies Allergy/AdvReac Type Severity Reaction Status Date / Time codeine Allergy Unknown Verified 11/11/20 13:20 Penicillins Allergy Anaphylaxis Verified 11/11/20 13:20 sulfadiazine Allergy Unknown Verified 11/11/20 13:20 bumetanide [From Bumex] AdvReac Hallucinati Verified 11/11/20 13:20 ons morphine AdvReac Confusion Verified 11/11/20 13:20 rivaroxaban [From Xarelto] AdvReac Bloody Nose Verified 11/11/20 13:20 spironolactone AdvReac Hallucinati Verified 11/11/20 13:20 ons All antibiotics except Keflex Allergy Unknown Uncoded 09/19/20 06:44 Childhood Physical Exam Osteopathic Statement: *. No significant issues noted on an osteopathic structural exam other than those noted in the History and Physical/Consult. Vitals: Vital Signs Temp Pulse Pulse Resp BP BP Pulse Ox 11/12/20 08:00 20 11/12/20 07:58 122/78 11/12/20 06:51 96.0 F L 72 20 74/41 100 11/12/20 02:00 98.1 F 81 18 124/66 98 11/12/20 00:00 80 17 11/11/20 23:19 98.7 F 80 17 131/67 95 11/11/20 22:23 98.9 F 79 18 121/59 95 11/11/20 20:41 97 11/11/20 20:00 97 11/11/20 19:28 98 11/11/20 18:32 18 11/11/20 17:32 18 11/11/20 17:24 97.9 F 76 18 122/52 97 Intake and Output 11/11/20 11/12/20 11/12/20 22:59 06:59 14:59 Other: # Bowel Movements 3 Weight 83.915 kg No acute distress, sleepy and lethargic, but does arouse. Currently on 2 L nasal cannula with saturations 99%. HEENT examination is grossly unremarkable. Neck supple. Full range of motion. No adenopathy thyromegaly or neck vein distention. Cardiovascular examination reveals regular rhythm rate. S1-S2 normal. No S3 or S4. No discernible murmur noted. Heart sounds distant. Heart rate 75 bpm. Lungs reveal mostly clear breath sounds. Scattered rhonchi are noted. No wheezes or crackles. Breath sounds equal bilaterally. Abdomen soft bowel sounds are heard. No masses or tenderness. Extremities reveal 2+ pitting edema. There is also some chronic venous stasis changes. No cyanosis or clubbing. Skin is without rash or lesion. Neurologic examination reveals a very lethargic but arousable male. Results - Laboratory Findings CBC and BMP: 11/12/20 08:38 11/12/20 08:38 Abnormal lab findings: Abnormal Labs 11/12/20 11/12/20 11/12/20 07:12 08:38 08:38 WBC 10.9 H RBC 2.19 L Hgb 6.8 L* D Hct 21.2 L RDW 16.0 H Neutrophils # 9.8 H Lymphocytes # 0.5 L Sodium 136 L Potassium 6.0 H Chloride 97 L Carbon Dioxide 14 L BUN 157 H* Creatinine 6.48 H Glucose 171 H POC Glucose (mg/dL) 175 H Magnesium 2.5 H Alkaline Phosphatase 131 H Crossmatch 11/12/20 11/12/20 10:46 11:14 WBC RBC Hgb Hct RDW Neutrophils # Lymphocytes # Sodium Potassium Chloride Carbon Dioxide BUN Creatinine Glucose POC Glucose (mg/dL) 174 H Magnesium Alkaline Phosphatase Crossmatch See Detail Assessment and Plan Assessment: Acute GI bleed, to be evaluated with colonoscopy on November 13. Acute on chronic anemia, to receive 2 units of PRBCs. End-stage renal disease, currently on 3 time a week hemodialysis. Episode in March of this year, of cardiopulmonary arrest, with brief cardiopulmonary resuscitation and return of spontaneous circulation. History of atrial fibrillation. History of CAD, status post stent placement. History of CHF. History of diabetes mellitus. Gastroesophageal reflux disease. History of deafness. History of hyperlipidemia. History of hypertension. Her history of myocardial infarction. History of syncope. History of gout. Multiple other medical problems and comorbidities. Plan: Plan dated 11/12/2020. The patient is seen in the intensive care unit, room 262. The patient will receive some blood. The patient is currently undergoing hemodialysis. Additional recommendations and suggestions are forthcoming. The patient may undergo colonoscopy tomorrow, November 13. We will continue to follow make recommendations where appropriate. The consultation by my partner from March of this year, is reviewed. Time with Patient: Greater than 30
--- NOTE | 2020-11-12 12:17 | CONS ---
CONSULTATION REASON FOR CONSULTATION: End-stage renal disease. HISTORY OF PRESENT ILLNESS: The patient is a 60-year-old male with end-stage renal disease, on hemodialysis on a Wednesday, , Wednesday schedule, admitted to the hospital with mental status changes. Patient apparently was sent to the ER yesterday and then he was sent back to [facility], as mentation did not appear to be significantly altered. The patient was sent right back from [facility] for the same complaints. He also had black tarry stool last night and his blood pressure had dropped into the 70s systolic. The patient is therefore transferred to the ICU. This morning he is awake. He is lethargic, goes back to sleep, but is arousable. He has not had any further GI bleed. Systolic blood pressure now is about 130 mmHg systolic. No history of fevers or chills. No cough. Patient has underlying history of MRSA endocarditis, status post antibiotics. He has also had osteomyelitis of the lumbar spine which was at one time thought to be the source of the MRSA bacteremia as well. Previously he has had fluctuations in mentation based on his degree of uremia and has required more aggressive dialysis in the past. PAST MEDICAL HISTORY: End-stage renal disease, history of MRSA bacteremia, endocarditis, MRSA osteomyelitis, type 2 diabetes, coronary artery disease, history of CHF, chronic atrial fibrillation, hearing loss, dyslipidemia, history of LA, hypertension, syncope, neuropathy, retinopathy. PAST SURGICAL HISTORY: Cardiac catheterization, coronary stent placement, PD catheter placement and removal, AV fistula with interventions previously, left eye vitrectomy, colonoscopy, polypectomy. SOCIAL HISTORY: Negative for smoking, drug abuse or alcohol abuse. MEDICATIONS: Medications prior to admission included Lasix, aspirin, insulin, Levemir, Dulcolax, gabapentin, Eliquis, Lipitor, Lopressor, hydralazine, Zaroxolyn, Xanax, Liquacel, Colace. ALLERGIES: ALLERGIES include CODEINE. PENICILLIN causes anaphylaxis. SULFA, MORPHINE. XARELTO causes bleeding. SPIRONOLACTONE causes hallucinations. MULTIPLE OTHER ANTIBIOTICS; details not known. The patient has tolerated vancomycin very well previously. REVIEW OF SYSTEMS: As per HPI. Other systems negative. PHYSICAL EXAMINATION: Patient is currently a seen on the floor being transferred to ICU. He is sleepy and lethargic but arousable. Answers questions. Somewhat confused. Blood pressure was 122/78, heart rate 72 per minute. He is afebrile. EXAMINATION OF THE HEART: S1 and S2. EXAMINATION OF LUNGS: Decreased breath sounds at the bases. ABDOMEN: Soft, nontender, obese. LOWER EXTREMITIES: Examination of lower extremities shows edema 2+ to 3+ bilaterally with some wrinkling of the skin noted in the feet. BEAD STRINGER EXAM: BEAD STRINGER exam shows patient is moving all 4 extremities. He is confused. LABS: Sodium 136, potassium 6.2, chloride 97, BUN 157, serum creatinine 6.4, hemoglobin 6.8 g/dL. ASSESSMENT: 1. End-stage renal disease, on hemodialysis on a Wednesday, , Wednesday schedule. Patient did not have a full treatment on Wednesday, as he signed off AMA. 2. Mental status changes, possibly related to underlying uremia, and patient has had previously encephalopathic changes associated with significantly elevated BUN and creatinine. At this time we will dialyze him on a daily basis with a 180 dialyzer. 3. Metabolic acidosis associated with end-stage renal disease/renal failure. Expect improvement with ongoing dialysis. 4. Hyperkalemia associated with end-stage renal disease and gastrointestinal bleed. 5. Anemia secondary to acute blood loss from gastrointestinal bleed. Will give a dose of DDAVP and transfuse one unit packed RBCs. Patient will be maintained on Aranesp as well. 6. History of MRSA bacteremia with MRSA osteomyelitis of the lumbar spine and history of MRSA endocarditis. Maintained on vancomycin as outpatient. PLAN: Daily dialysis. Will continue with aggressive dialysis for now. DDAVP x1. Transfuse packed RBCs. Maintain patient on Aranesp. Repeat labs in a.m. We will plan for UF of about 2 to 2.5 L, depending on his blood pressure. Otherwise, we will only dialyze without any ultrafiltration. Thank you for this consultation. Will continue to follow the patient with you during his hospitalization. MMODL / IJN: [id number] /
--- NOTE | 2020-11-12 12:19 | P.HPIM ---
History of Present Illness H&P Date: 11/11/20 Chief Complaint: Severe encephalopathy, acute altered mental status, end-stage renal disease HISTORY OF PRESENT ILLNESS This is a 60-year-old male patient of Dr. Mckeon currently residing at [facility] under the care of Dr. 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 Patient was hospitalized in April 2020 at which time he was treated for sepsis and MRSA bacteremia of unclear etiology with metabolic encephalopathy vasovagal episode requiring brief CPR and patient was transferred to [facility]. Patient was treated for MRSA osteomyelitis of the lumbar spine. Patient had recent hospitalization September 19 and was transferred on September 30 to be [facility] due to sepsis with persistent MRSA bacteremia secondary to mitral valve vegetation, paraspinal abscess of the C1-C2. Patient was sent from [facility] to the emergency department to be evaluated for significant altered mental status confusion mild competitive and bizarre behavior could not keep him awake and could not finish dialysis day early because of the hypotension and severe tiredness. Was seen and evaluated and was sent back to [facility] while he still on the stretcher in [facility] before getting back to his bed patient could not being kept awake had severe change at the time was decided to send him back to the emergency room again. Patient was seen and evaluated the second time found to have mild hypotension severe confusion severe uremia and slightly but worsening anemia. Patient was started on gentle hydration consult nephrology for urgent dialysis patient to be continue his vancomycin for the endocarditis and to be seen urology. REVIEW OF SYSTEMS Constitutional: Low-grade fever, no chills, no night sweats. Significant weight gain and fluid retention. Reported weakness, reported fatigue Reported lethargy. Reported daytime sleepiness. EENT: No headache. He has lack of vision in one of his eyes.. No loss of Hearing, no ringing in the ears, no dizziness. No nasal drainage or congestion. No epistaxis. No sore throat. Lungs: Significant shortness of breath mild PND or wheezes. Cardiovascular: Positive fluid retention, PND, orthopnea, lightheadedness and dizziness with no syncope no significant chest pain but significant shortness of breath and dyspnea. Abdominal: Slight abdominal pain with distention and mild nausea no vomiting positive tarry stool and significant change in bowel habit. Genitourinary: Doesn't make much urine because of end-stage renal disease no burning or discomfort. Musculoskeletal: Positive myalgia muscle and generalized fatigue. Integumentary: Significant edema and water retention lower extremity with slight discoloration from the knee down. Neurologic: No aphasia. No facial droop. Noted change in mentation. No head injury. No headache. No paralysis. No paresthesia. Psychiatric: Mild depression confusion with no anxiety. Endocrine: Noted abnormal blood sugars. No weight change. SOCIAL HISTORY Patient was a smoker for 23 years and quit in 1995. No alcohol use, illicit drug use. He lives at home with his and has been in rehab at [facility]. FAMILY HISTORY Father at age 72 from brain cancer also had history of coronary artery disease. Mother is 83-year-old with history of diabetes type 2 and o steoarthritis. Patient has one sister with diabetes, SLE and MS. Patient's 1 brother with diabetes and one with no major medical problems. Patient has 2 daughters with no major medical problems and 2 sons with no major medical problems.. PHYSICAL EXAMINATION Gen: This is a 60-year-old male patient resting on ER stretch. He appears to be in no acute distress but quite bit confused. HEENT: Head is atraumatic, normocephalic. Pupils equal, round. Sclerae is anicteric. NECK: Supple. No JVD. No lymphadenopathy. No thyromegaly. LUNGS: Decreased expansion bilaterally with fine rhonchi positive mild crackles basis has not spread wheezes. HEART: Regular rate and rhythm. 2/6 systolic murmur with mild tachycardia.. ABDOMEN: Soft positive bowel sounds slight distention with no rebound or rigidity. EXTREMITIES: 1+ pedal edema with slight arthritis slight discoloration from the knee down. NEUROLOGICAL: Patient is sleeping, awakes to verbal stimuli. Cranial nerves 2 th rough 12 are grossly intact. ASSESSMENT AND PLAN 1. Acute change mental status: Multifactorial combination off endocarditis, infection, end-stage renal disease with uremia, possible aspiration pneumonia, fluid overload and CHF, anemia possible GI bleed. 2 Shortness of breath secondary to fluid overload from missed dialysis treatment will consult with nephrology for the urgent need for hemodialysis. 3 acute GI bleed with tarry stool hemoglobin is down to 8.5. Another CBC in the next few hours continue to watch for any active bleed GI consultation will be done. 4 worsening uremia: Secondary to end-stage renal disease with missing dialysis more often. 5. 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 Patient was transferred to [facility] and return to [facility] to complete 4 week course of IV vancomycin with dialysis. Antibiotic course started on October 19. 6. Metabolic encephalopathy secondary to uremia, fluid overload, anemia and hypertension, will try to treat underlying disease and evaluated patient patient will be seen neurology as well. 7. Recent treatment for MRSA bacteremia and lumbar spine osteomyelitis, completed course of antibiotics. 8. End-stage renal disease on hemodialysis. Consult with nephrology appreciated. Continue PhosLo 667 mg 3 times daily, Aranesp 40 g subcu every 7 days, hemodialysis. Patient had missed dialysis recently because of hypertension and a change mental status. 9. Degenerative disc disease and spinal stenosis. Continue gabapentin 300 mg at bedtime. Continue baclofen 5 mg every 8 hours as needed. 10. History of coronary artery disease with previous PTCA to LAD and circumflex. Continue aspirin 81 mg daily, atorvastatin 40 mg at bedtime, L opressor 25 mg twice daily. 11. Paroxysmal atrial fibrillation. Continue eliquis 2.5 mg twice daily, Lopressor, amiodarone 200 mg daily pulse rates under control at this point. 12. Ischemic cardiomyopathy. Continue Lopressor, Lasix 80 mg twice daily, metolazone 5 mg daily. Still removing more fluid with hemodialysis. 13. Diabetes mellitus type 2, insulin requiring. Continue Levemir 5 units at bedtime, add NovoLog scale before meals and at bedtime, 14. Hypertension. Continue hydralazine 75 mg 3 times daily. 15. Anemia of chronic disease. Continue ferrous sulfate 325 mg twice daily. Along with Aranesp 40 g subcu every 7 days. 16. GI prophylaxis. Continue Protonix. 17. DVT prophylaxis. Was on Eliquis which will be held for now. 18. Covid 19 testing: Negative. Patient will be admitted to the hospital for a minimum of 2 night stay. Prognosis: Very guarded. CODE STATUS: DO NOT RESUSCITATE, I had long discussion with the had is apparently had address it with the patient himself when he was resuscitated and placed on mechanical ventilation last time he told her that he does 1 a of her be on the ventilator does not want to have any resuscitation if something happened. Past Medical History Past Medical History: Atrial Fibrillation, Coronary Artery Disease (CAD), Heart Failure, Diabetes Mellitus, Dialysis, Eye Disorder, GERD/Reflux, Hearing Disorder / Deafness, Hyperlipidemia, Hypertension, Myocardial Infarction (HI), Renal Disease, Syncope Additional Past Medical History / Comment(s): IDDM type II, neuropathy bilateral hands/feet, ESRD with hemodialysis on M/W/F, chronic anemia, LVH, Afib with RVR, MIs, chronic CHF, R eye blindness, L eye legally blind, RLS, pt unsure if he has gout, vertigo at times, balance issues at times, stomach ulcer at age 17yrs, sinus problems, very [employer] R ear. Last Myocardial Infarction Date:: 08/09/18 History of Any Multi-Drug Resistant Organisms: MRSA Date of last positivie culture/infection: 09/20/20 MDRO Source:: Blood Past Surgical History: Heart Catheterization, Heart Catheterization With Stent Additional Past Surgical History / Comment(s): TTT, PD catheter placement/since removed, 2016 L arm fistula, fistula gram with balloon for stenosis, L eye vitrectomy, thyroid needle aspiration-negative, L leg cyst, colonoscopy with benign polypectomy. port placed in chest Right side. Past Anesthesia/Blood Transfusion Reactions: Postoperative Nausea & Vomiting (PONV) Date of Last Stent Placement:: 03-03-18 Past Psychological History: Anxiety, Depression Smoking Status: Never smoker Past Alcohol Use History: None Reported Past Drug Use History: None Reported - Past Family History Father Family Medical History: Cancer, Coronary Artery Disease (CAD), Hyperlipidemia Additional Family Medical History / Comment(s): Lung/BRAIN CANCER Mother Family Medical History: Diabetes Mellitus, Deep Vein Thrombosis (DVT), Osteoarthritis (OA) Additional Family Medical History / Comment(s): DJD Sister(s) Family Medical History: Diabetes Mellitus Additional Family Medical History / Comment(s): Patient has one sister with diabetes mellitus type 2, SLE, MS. Brother(s) Family Medical History: Diabetes Mellitus Additional Family Medical History / Comment(s): Patient has 4 kids no major medical problems. Daughter(s) Family Medical History: No Reported History Additional Family Medical History / Comment(s): Patient has 2 daughters no major medical problems. Son(s) Family Medical History: No Reported History Additional Family Medical History / Comment(s): Patient has 2 sons no major medical problems. Medications and Allergies Home Medications Medication Instructions Recorded Confirmed Type Furosemide [Lasix] 80 mg PO BID@0600,1400 04/13/19 11/11/20 History Ferrous Sulfate [Iron (65 MG 325 mg PO DAILY@0 08/12/20 11/11/20 History Elemental)] INSULIN ASPART (NovoLOG) [NovoLOG See Protocol SQ [facility] 08/12/20 11/11/20 History (formulary)] Insulin Detemir (Levemir) [Levemir] 5 unit SQ HS@209908/12/20 11/11/20 History bisacodyL [Dulcolax] 10 mg RECTAL DAILY PRN 08/12/20 11/11/20 History Amiodarone [Cordarone] 200 mg PO DAILY@0800 09/19/20 11/11/20 History Apixaban [Eliquis] 2.5 mg PO BID@0800,209909/19/20 11/11/20 History Atorvastatin [Lipitor] 40 mg PO HS 09/19/20 11/11/20 History Liquacel 30 ml PO BID@0800,209909/19/20 11/11/20 History Metoprolol Tartrate [Lopressor] 25 mg PO BID@0800,209909/19/20 11/11/20 History hydrALAZINE HCL [Apresoline] 75 mg PO TID@0600,1400,209909/19/20 11/11/20 His tory metOLazone [Zaroxolyn] 5 mg PO DAILY@0800 09/19/20 11/11/20 History Acetaminophen [Tylenol 8 Hour] 650 mg PO Q4H PRN 10/29/20 11/11/20 History Baclofen [Lioresal] 5 mg PO Q8H PRN 10/29/20 11/11/20 History Cholestyramine (with Sugar) 4 gm PO BID@0800,1700 10/29/20 11/11/20 History [Cholestyramine Packet] Docusate [Colace] 100 mg PO BID@0800,1700 10/29/20 11/11/20 History Mupirocin 2% Oint [Bactroban 2% 1 applic TOPICAL BID@0800,1700 10/29/20 11/11/20 History Oint] Triamcinolone 0.1% Cream [Kenalog 1 applic TOPICAL BID@0800,1700 10/29/20 11/11/20 History 0.1% Cream] ALPRAZolam [Xanax] 0.25 mg PO BID PRN #6 tab 10/30/20 11/11/20 Rx Gabapentin 300 mg PO HS@2100 #3 cap 10/30/20 11/11/20 Rx Lidocaine 4% Cream [Lmx 4] 1 applic TOPICAL Q4H PRN 10/30/20 11/11/20 Rx Melatonin 6 mg PO HS #30 tablet 10/30/20 11/11/20 Rx Aspirin 81 mg PO DAILY@1700 11/11/20 11/11/20 History Butalb/Acetaminophen/Caffeine 1 cap PO Q6H PRN 11/11/20 11/11/20 History [Fioricet 50-300-40 mg Capsule] HYDROcodone/APAP 5-325MG [[place] 1 tab PO Q4H PRN 11/11/20 11/11/20 History 5-325] Ipratropium-Albuterol Nebulize 3 ml INHALATION RT-Q6H PRN 11/11/20 11/11/20 His tory [Duoneb 0.5 mg-3 mg/3 ml Soln] Magnesium Hydroxide [Milk of 7,200 mg PO Q48H PRN 11/11/20 11/11/20 History Magnesia Concentrate] Menthol-Zinc Oxide Oint 1 applic TOPICAL BID 11/11/20 11/11/20 History [Calmoseptine Oint] Oxymetazoline 0.05% Nasl [place] 1 spray EA NOSTRIL Q12H PRN 11/11/20 11/11/20 History [Afrin 0.05% Nasal [place]] Polyethylene Glycol 3350 [Miralax] 17 gm PO DAILY@0800 11/11/20 11/11/20 History Vancomycin HCl in 5 % Dextrose 1 gm IV TUTHSA 11/11/20 11/11/20 History [Vancomycin 1 Gram/250 ml-D5w] hydrOXYzine HCL 25 mg PO Q8H PRN 11/11/20 11/11/20 History Allergies Allergy/AdvReac Type Severity Reaction Status Date / Time codeine Allergy Unknown Verified 11/11/20 13:20 Penicillins Allergy Anaphylaxis Verified 11/11/20 13:20 sulfadiazine Allergy Unknown Verified 11/11/20 13:20 bumetanide [From Bumex] AdvReac Hallucinati Verified 11/11/20 13:20 ons morphine AdvReac Confusion Verified 11/11/20 13:20 rivaroxaban [From Xarelto] AdvReac Bloody Nose Verified 11/11/20 13:20 spironolactone AdvReac Hallucinati Verified 11/11/20 13:20 ons All antibiotics except Keflex Allergy Unknown Uncoded 09/19/20 06:44 Childhood Physical Exam Vitals: Vital Signs Temp Pulse Resp BP Pulse Ox 11/11/20 20:41 97 11/11/20 20:00 97 11/11/20 19:28 98 11/11/20 18:32 18 11/11/20 17:32 18 11/11/20 17:24 97.9 F 76 18 122/52 97 Intake and Output 11/11/20 11/11/20 11/11/20 06:59 14:59 22:59 Other: Weight 83.915 kg Results CBC & Chem 7: 11/12/20 08:38 11/12/20 08:38
--- NOTE | 2020-11-12 13:00 | ECHOF ---
Referral Reason:Endocarditis MEASUREMENTS -------- HEIGHT: 167.6 cm WEIGHT: 83.9 kg BP: 74/41 RVIDd: 3.7 cm (< 3.3) IVSd: 1.5 cm (0.6 - 1.1) LVIDd: 4.3 cm (3.9 - 5.3) LVPWd: 1.6 cm (0.6 - 1.1) IVSs: 1.7 cm LVIDs: 3.3 cm LVPWs: 2.0 cm AV maxP.27 mmHg AV meanP.86 mmHg RAP: 5.00 mmHg RVSP: 36.72 mmHg FINDINGS -------- Sinus rhythm. Limited Study The left ventricular size is normal. There is moderate concentric left ventricular hypertrophy. O verall left ventricular systolic function is mildly impaired with, an EF between 45 - 50 %. There i s paradoxical/dysynergic septal motion consistent with right ventricular volume overload and/or eleva last right ventricular end-diastolic pressure. There is moderate aortic stenosis present. Peak/mean gradient across the Aortic Valve is 53.27mmHg / 28.86mmHg. The mitral valve leaflets are moderately thickened. Moderate mitral regurgitation is present. Moderate tricuspid regurgitation present. There is mild pulmonary hypertension. The right ventric ular systolic pressure, as measured by Doppler, is 36.72mmHg. The pulmonic valve was not well visualized. There is no pericardial effusion. CONCLUSIONS -------- 1. There is moderate concentric left ventricular hypertrophy. 2. Overall left ventricular systolic function is mildly impaired with, an EF between 45 - 50 %. 3. There is paradoxical/dysynergic septal motion consistent with right ventricular volume overload an d/or elevated right ventricular end-diastolic pressure. 4. There is moderate aortic stenosis present. 5. Peak/mean gradient across the Aortic Valve is 53.27mmHg / 28.86mmHg. 6. Moderate mitral regurgitation is present. 7. Moderate tricuspid regurgitation present. 8. There is mild pulmonary hypertension. 9. There is no pericardial effusion. HANDKERCHIEF FOLDER: Dhara Hicks [facility]
[2020-11-12] MEDS: DARBEPOETIN ALFA 60 MCG/0.3 ML SYRINGE SQ SCH (13:09)
[2020-11-12] MEDS: PANTOPRAZOLE 40 MG/10 ML VIAL IVP SCH (13:09)
[2020-11-12 15:02] LABS: Reticulocyte % 0.93 % (0.10-1.80)
--- NOTE | 2020-11-12 15:11 | P.PN ---
Subjective Progress Note Date: 11/12/20 HISTORY OF PRESENT ILLNESS This is a 60-year-old male patient of Dr. Mckeon currently residing at [facility] under the care of Dr. 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 Patient was hospitalized in April 2020 at which time he was treated for sepsis and MRSA bacteremia of unclear etiology with metabolic encephalopathy vasovagal episode requiring brief CPR and patient was transferred to [facility]. Patient was treated for MRSA osteomyelitis of the lumbar spine. Patient had recent hospitalization September 19 and was transferred on September 30 to be [facility] due to sepsis with persistent MRSA bacteremia secondary to mitral valve vegetation, paraspinal abscess of the C1-C2. Patient was sent from [facility] to the emergency department to be evaluated for significant altered mental status confusion mild competitive and bizarre behavior could not keep him awake and could not finish dialysis day early because of the hypotension and severe tiredness. Was seen and evaluated and was sent back to [facility] while he still on the stretcher in [facility] before getting back to his bed patient could not being kept awake had severe change at the time was decided to send him back to the emergency room again. Patient was seen and evaluated the second time found to have mild hypotension severe confusion severe uremia and slightly but worsening anemia. Patient was started on gentle hydration consult nephrology for urgent dialysis patient to be continue his vancomycin for the endocarditis and to be seen infectious disease and cardiology. 11/12: Patient currently had 2 large tarry bowel movements this morning. Hemoglobin came back at 6.8 and he has been ordered for 2 units of packed RBCs. Patient continues to be lethargic. His blood pressure this morning was 77/47 but did recover to 122/77 and he did start hemodialysis this morning. Plan is for removal of 3 L of fluid. Patient has been afebrile, heart rate 72, pulse ox 98% on room air. WBC 10.9, hemoglobin 224. Sodium 136, potassium 6, chloride 97, CO2 14, BUN 157, creatinine 6.48. Blood sugars in the 170s. Magnesium 2.5. Alkaline phosphatase 131. ProBNP 32,200. Stool occult for occult blood was positive. Stool for occult blood was positive. 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 REVIEW OF SYSTEMS Constitutional: Low-grade fever, no chills, no night sweats. Significant weight gain and fluid retention. Reported weakness, reported fatigue Reported lethargy. Reported daytime sleepiness. EENT: No headache. He has lack of vision in one of his eyes.. No loss of Hearing, no ringing in the ears, no dizziness. No nasal drainage or congestion. No epistaxis. No sore throat. Lungs: Significant shortness of breath mild PND or wheezes. Cardiovascular: Positive fluid retention, PND, orthopnea, lightheadedness and dizziness with no syncope no significant chest pain but significant shortness of breath and dyspnea. Abdominal: Slight abdominal pain with distention and mild nausea no vomiting pos itive reported tarry stool and significant change in bowel habit. Genitourinary: Doesn't make much urine because of end-stage renal disease no burning or discomfort. Musculoskeletal: Positive myalgia muscle and generalized fatigue. Integumentary: Significant edema and water retention lower extremity with slight discoloration from the knee down. Neurologic: No aphasia. No facial droop. Noted change in mentation. No head injury. No headache. No paralysis. No paresthesia. Psychiatric: Mild depression confusion with no anxiety. Endocrine: Noted abnormal blood sugars. No weight change. PHYSICAL EXAMINATION Gen: This is a 60-year-old male patient resting in bed. He appears to be in no acute distress but confused. HEENT: Head is atraumatic, normocephalic. Pupils equal, round. Sclerae is anicteric. NECK: Supple. No JVD. No lymphadenopathy. No thyromegaly. LUNGS: Decreased expansion bilaterally with fine rhonchi positive mild crackles basis has not spread wheezes. HEART: Regular rate and rhythm. 2/6 systolic murmur with mild tachycardia.. ABDOMEN: Soft positive bowel sounds slight distention with no rebound or rigidity. EXTREMITIES: 1+ pedal edema with slight arthritis slight discoloration from the knee down. NEUROLOGICAL: Patient is sleeping, awakes to verbal stimuli. He is unable to Cranial nerves 2 through 12 are grossly intact. ASSESSMENT AND PLAN 1. Acute metabolic encephalopathy: Multifactorial combination off endocarditis, infection, end-stage renal disease with uremia, possible aspiration pneumonia, fluid overload and CHF, anemia possible GI bleed. 2 Shortness of breath secondary to fluid overload from missed dialysis treatment will consult with nephrology for the urgent need for hemodialysis. 3 acute GI bleed with tarry stool hemoglobin is down to 6.8. Transfuse 2 units of packed RBCs, GI consult, monitor hemoglobin. 4 worsening uremia: Secondary to end-stage renal disease with missing dialysis more often. 5. 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 Patient was transferred to [facility] and return to [facility] to complete 4 week course of IV vancomycin with dialysis. Antibiotic course started on October 19. 6. Metabolic encephalopathy secondary to uremia, fluid overload, anemia and hypertension, will try to treat underlying disease and evaluated patient patient will be seen neurology as well. 7. Recent treatment for MRSA bacteremia and lumbar spine osteomyelitis, completed course of antibiotics. 8. End-stage renal disease on hemodialysis. Consult with nephrology appreciated. Continue PhosLo 667 mg 3 times daily, Aranesp 40 g subcu every 7 days, hemodialysis. Patient had missed dialysis recently because of hypertensio n and a change mental status. 9. Degenerative disc disease and spinal stenosis. Continue gabapentin 300 mg at bedtime. Continue baclofen 5 mg every 8 hours as needed. 10. History of coronary artery disease with previous PTCA to LAD and circumflex. Continue aspirin 81 mg daily, atorvastatin 40 mg at bedtime, Lopressor 25 mg twice daily. 11. Paroxysmal atrial fibrillation. Continue eliquis 2.5 mg twice daily, Lopressor, amiodarone 200 mg daily pulse rates under control at this point. 12. Ischemic cardiomyopathy. Continue Lopressor, Lasix 80 mg twice daily, metolazone 5 mg daily. Still removing more fluid with hemodialysis. 13. Diabetes mellitus type 2, insulin requiring. Continue Levemir 5 units at bedtime, add NovoLog scale before meals and at bedtime, 14. Hypertension. Continue hydralazine 75 mg 3 times daily. 15. Anemia of chronic disease. Continue ferrous sulfate 325 mg twice daily. Along with Aranesp 40 g subcu every 7 days. 16. GI prophylaxis. Continue Protonix. 17. DVT prophylaxis. Was on Eliquis which will be held for now. 18. Covid 19 testing: Negative. Patient will be admitted to the hospital for a minimum of 2 night stay. Prognosis: Very guarded. CODE STATUS: DO NOT RESUSCITATE, I had long discussion with the had address it with the patient himself when he was resuscitated and placed on mechanical ventilation last time he told her that he does not want be on the ventilator does not want to have any resuscitation if something happened. DISCHARGE PLAN Return to [facility] Impression and plan of care have been directed as dictated by the signing physician. Katelyn Wesley nurse practitioner acting as scribe for signing physician. Objective - Vital Signs Vital signs: Vital Signs Temp 96.0 F L 11/12/20 06:51 Pulse 72 11/12/20 06:51 Resp 20 11/12/20 06:51 BP 122/78 11/12/20 07:58 Pulse Ox 100 11/12/20 06:51 Intake & Output 11/11/20 11/12/20 11/12/20 18:59 06:59 18:59 Weight 83.915 kg 83.915 kg Other: # Bowel Movements 3 - Labs CBC & Chem 7: 11/12/20 08:38 11/12/20 08:38 Labs: Abnormal Lab Results - Last 24 Hours (Table) 11/12/20 11/12/20 11/12/20 Range/Units 07:12 08:38 08:38 WBC 10.9 H (3.8-10.6) k/uL RBC 2.19 L (4.30-5.90) m/uL Hgb 6.8 L* D (13.0-17.5) gm/dL Hct 21.2 L (39.0-53.0) % RDW 16.0 H (11.5-15.5) % Neutrophils # 9.8 H (1.3-7.7) k/uL Lymphocytes # 0.5 L (1.0-4.8) k/uL Sodium 136 L (137-145) mmol/L Potassium 6.0 H (3.5-5.1) mmol/L Chloride 97 L (98-107) mmol/L Carbon Dioxide 14 L (22-30) mmol/L BUN 157 H* (9-20) mg/dL Creatinine 6.48 H (0.66-1.25) mg/dL Glucose 171 H (74-99) mg/dL POC Glucose (mg/dL) 175 H (75-99) mg/dL Magnesium 2.5 H (1.6-2.3) mg/dL Alkaline Phosphatase 131 H (38-126) U/L
[2020-11-12] MEDS: ALPRAZolam 0.25 MG TAB PO PRN ×2 (15:51→20:59)
--- NOTE | 2020-11-12 15:54 | P.CONS ---
History of Present Illness - Reason for Consult Consult date: 11/12/20 GI bleed, + occult blood Requesting physician: Perry Christian - Chief Complaint altered mental status changes - History of Present Illness This a 60-year-old white male with multiple comorbidities including hypertension, cardiovascular disease, hyperlipidemia, type 2 diabetes mellitus, paroxysmal atrial fibrillation on Eliquis, end-stage renal disease on hemodialysis, blindness of the right eye as well as hearing-impaired. Patient currently resides at [facility] he was transferred to the emergency department to be evaluated for altered mental status confusion and bizarre behavior. Apparently the patient undergoes hemodialysis on Wednesdays and Fridays and was unable to complete his dialysis treatment yesterday due to hypotension and fatigue. The patient was admitted to the medical floor for transfer to the intensive care unit this morning for hypotension. He reportedly had a bloody bowel movement yesterday evening. With 1 unit of PRBC ordered. The patient was seen and examined in the ICU currently undergoing hemodialysis. The patient is very drowsy and difficult to awake at times. He is able to answer some questions and states that he has been having black stools for some time. He states he did have a colonoscopy at the age of 49 for screening colonoscopy. He is unsure if he has any history of any ulcers. He denies any abdominal pain, nausea, or vomiting. Denies any previous history of EGD. He denies taking any NSAIDs, he is currently on Eliquis last dose being this morning. Nursing states he has not had any bowel movements today and no signs of GI bleeding today. Labs WBC 10.9 hemoglobin 6.8 hematocrit 21.2 sodium 136 potassium 6.0 BUN 157 creatinine 6.48 total bilirubin 0.5 AST 27 and 2024 alkaline phosphatase 131 lipase 124. Stool occult blood positive. Review of Systems REVIEW OF SYSTEMS: CARDIOPULMONARY: No chest pain or shortness of breath. Gastrointestinal: No abdominal pain.. No nausea or vomiting. No hematemesis, coffee-ground emesis. Bloody stools reported per nursing. Patient states he's been having black stools for quite some time. GENITOURINARY: No dysuria or hematuria. MUSCULOSKELETAL: Reports normal range of motion., Joint pain. SKIN: No rashes. No jaundice. ENDOCRINE: No chills, fevers. No excessive weight gain or loss. No polydipsia or polyuria. PSYCHIATRIC: Unremarkable. NEUROLOGY: Altered mental status changes with fatigue, drowsiness. ENT: Vision unremarkable. CONSTITUTIONAL: No recent weight loss. No fever, chills, night sweats. Past Medical History Past Medical History: Atrial Fibrillation, Coronary Artery Disease (CAD), Heart Failure, Diabetes Mellitus, Dialysis, Eye Disorder, GERD/Reflux, Hearing Disorder / Deafness, Hyperlipidemia, Hypertension, Myocardial Infarction ([place]), Renal Disease, Syncope Additional Past Medical History / Comment(s): IDDM type II, neuropathy bilateral hands/feet, ESRD with hemodialysis on M/W/F, chronic anemia, LVH, Afib with RVR, MIs, chronic CHF, R eye blindness, L eye legally blind, RLS, pt unsure if he has gout, vertigo at times, balance issues at times, stomach ulcer at age 17yrs, sinus problems, very BLACKFEET R ear. Last Myocardial Infarction Date:: 08/09/18 History of Any Multi-Drug Resistant Organisms: MRSA Year Discovered:: 09/20/20 MDRO Source:: Blood Past Surgical History: Heart Catheterization, Heart Catheterization With Stent Additional Past Surgical History / Comment(s): TTT, PD catheter placement/since removed, 2016 L arm fistula, fistula gram with balloon for stenosis, L eye vitrectomy, thyroid needle aspiration-negative, L leg cyst, colonoscopy with benign polypectomy. port placed in chest Right side. Past Anesthesia/Blood Transfusion Reactions: Postoperative Nausea & Vomiting (PONV) Date of Last Stent Placement:: 03-03-18 Past Psychological History: Anxiety, Depression Additional Psychological History / Comment(s): Pt resides with his spouse, AND SON. He is legally blind L eye and blind in R eye. He is very BLACKFEET in R ear. He has a cane and walker which he uses prn. His spouse and son drive. Pt uses glasses and a magnifier to read. He has depression which he states is constantly present but not increased. He denies thoughts/plans of suicide. Smoking Status: Never smoker Past Alcohol Use History: None Reported Additional Past Alcohol Use History / Comment(s): Pt started smoking in 1972 and quit in 1995. Past Drug Use History: None Reported - Past Family History Father Family Medical History: Cancer, Coronary Artery Disease (CAD), Hyperlipidemia Additional Family Medical History / Comment(s): Lung/BRAIN CANCER Mother Family Medical History: Diabetes Mellitus, Deep Vein Thrombosis (DVT), Osteoarthritis (OA) Additional Family Medical History / Comment(s): DJD Sister(s) Family Medical History: Diabetes Mellitus Additional Family Medical History / Comment(s): Patient has one sister with diabetes mellitus type 2, SLE, MS. Brother(s) Family Medical History: Diabetes Mellitus Additional Family Medical History / Comment(s): Patient has 4 kids no major medical problems. Daughter(s) Family Medical History: No Reported History Additional Family Medical History / Comment(s): Patient has 2 daughters no major medical problems. Son(s) Family Medical History: No Reported History Additional Family Medical History / Comment(s): Patient has 2 sons no major medical problems. Medications and Allergies Home Medications Medication Instructions Recorded Confirmed Type Furosemide [Lasix] 80 mg PO BID@0600,1400 04/13/19 11/11/20 History Ferrous Sulfate [Iron (65 MG 325 mg PO DAILY@1700 08/12/20 11/11/20 History Elemental)] INSULIN ASPART (NovoLOG) [NovoLOG See Protocol SQ [facility] 08/12/20 11/11/20 History (formulary)] Insulin Detemir (Levemir) [Levemir] 5 unit SQ HS@209908/12/20 11/11/20 History bisacodyL [Dulcolax] 10 mg RECTAL DAILY PRN 08/12/20 11/11/20 History Amiodarone [Cordarone] 200 mg PO DAILY@0800 09/19/20 11/11/20 History Apixaban [Eliquis] 2.5 mg PO BID@0800,209909/19/20 11/11/20 History Atorvastatin [Lipitor] 40 mg PO HS 09/19/20 11/11/20 History Liquacel 30 ml PO BID@0800,209909/19/20 11/11/20 History Metoprolol Tartrate [Lopressor] 25 mg PO BID@0800,209909/19/20 11/11/20 History hydrALAZINE HCL [Apresoline] 75 mg PO TID@0600,1400,209909/19/20 11/11/20 Hist ory metOLazone [Zaroxolyn] 5 mg PO DAILY@0800 09/19/20 11/11/20 History Acetaminophen [Tylenol 8 Hour] 650 mg PO Q4H PRN 10/29/20 11/11/20 History Baclofen [Lioresal] 5 mg PO Q8H PRN 10/29/20 11/11/20 History Cholestyramine (with Sugar) 4 gm PO BID@0800,1700 10/29/20 11/11/20 History [Cholestyramine Packet] Docusate [Colace] 100 mg PO BID@0800,1700 10/29/20 11/11/20 History Mupirocin 2% Oint [Bactroban 2% 1 applic TOPICAL BID@0800,1700 10/29/20 11/11/20 History Oint] Triamcinolone 0.1% Cream [Kenalog 1 applic TOPICAL BID@0800,1700 10/29/20 11/11/20 History 0.1% Cream] ALPRAZolam [Xanax] 0.25 mg PO BID PRN #6 tab 10/30/20 11/11/20 Rx Gabapentin 300 mg PO HS@2100 #3 cap 10/30/20 11/11/20 Rx Lidocaine 4% Cream [Lmx 4] 1 applic TOPICAL Q4H PRN 10/30/20 11/11/20 Rx Melatonin 6 mg PO HS #30 tablet 10/30/20 11/11/20 Rx Aspirin 81 mg PO DAILY@1700 11/11/20 11/11/20 History Butalb/Acetaminophen/Caffeine 1 cap PO Q6H PRN 11/11/20 11/11/20 History [Fioricet 50-300-40 mg Capsule] HYDROcodone/APAP 5-325MG [[place] 1 tab PO Q4H PRN 11/11/20 11/11/20 History 5-325] Ipratropium-Albuterol Nebulize 3 ml INHALATION RT-Q6H PRN 11/11/20 11/11/20 Hist ory [Duoneb 0.5 mg-3 mg/3 ml Soln] Magnesium Hydroxide [Milk of 7,200 mg PO Q48H PRN 11/11/20 11/11/20 History Magnesia Concentrate] Menthol-Zinc Oxide Oint 1 applic TOPICAL BID 11/11/20 11/11/20 History [Calmoseptine Oint] Oxymetazoline 0.05% Nasl [place] 1 spray EA NOSTRIL Q12H PRN 11/11/20 11/11/20 History [Afrin 0.05% Nasal [place]] Polyethylene Glycol 3350 [Miralax] 17 gm PO DAILY@0800 11/11/20 11/11/20 History Vancomycin HCl in 5 % Dextrose 1 gm IV TUTHSA 11/11/20 11/11/20 History [Vancomycin 1 Gram/250 ml-D5w] hydrOXYzine HCL 25 mg PO Q8H PRN 11/11/20 11/11/20 History Allergies Allergy/AdvReac Type Severity Reaction Status Date / Time codeine Allergy Unknown Verified 11/11/20 13:20 Penicillins Allergy Anaphylaxis Verified 11/11/20 13:20 sulfadiazine Allergy Unknown Verified 11/11/20 13:20 bumetanide [From Bumex] AdvReac Hallucinati Verified 11/11/20 13:20 ons morphine AdvReac Confusion Verified 11/11/20 13:20 rivaroxaban [From Xarelto] AdvReac Bloody Nose Verified 11/11/20 13:20 spironolactone AdvReac Hallucinati Verified 11/11/20 13:20 ons All antibiotics except Keflex Allergy Unknown Uncoded 09/19/20 06:44 Childhood Physical Exam Vitals: Vital Signs Temp Pulse Pulse Resp BP BP Pulse Ox 11/12/20 08:00 20 11/12/20 07:58 122/78 11/12/20 06:51 96.0 F L 72 20 74/41 100 11/12/20 02:00 98.1 F 81 18 124/66 98 11/12/20 00:00 80 17 11/11/20 23:19 98.7 F 80 17 131/67 95 11/11/20 22:23 98.9 F 79 18 121/59 95 11/11/20 20:41 97 11/11/20 20:00 97 11/11/20 19:28 98 11/11/20 18:32 18 11/11/20 17:32 18 11/11/20 17:24 97.9 F 76 18 122/52 97 Intake and Output 11/11/20 11/12/20 11/12/20 22:59 06:59 14:59 Other: # Bowel Movements 3 Weight 83.915 kg General appearance: The patient is alert, oriented, lethargic, appears in no acute distress. Obese. HET: Head is normocephalic and atraumatic. Conjunctiva pink. Sclera anicteric. Neck: Supple without lymphadenopathy. Trachea midline. Heart: S1 S2. Regular rate and rhythm. Lungs: Clear to auscultation. Abdomen: Soft, obese, nontender, nondistended with bowel sounds. No guarding or rigidity. Skin: No rashes. No jaundice. Extremities: Normal skin color and turgor. No pedal edema. Neurological: No focal deficits. Patient appears very lethargic, easily falling asleep but arousable. Alert and oriented 3.. Results CBC & Chem 7: 11/12/20 08:38 11/12/20 08:38 Labs: Abnormal Lab Results - Last 24 Hours (Table) 11/12/20 11/12/20 11/12/20 Range/Units 07:12 08:38 08:38 WBC 10.9 H (3.8-10.6) k/uL RBC 2.19 L (4.30-5.90) m/uL Hgb 6.8 L* D (13.0-17.5) gm/dL Hct 21.2 L (39.0-53.0) % RDW 16.0 H (11.5-15.5) % Neutrophils # 9.8 H (1.3-7.7) k/uL Lymphocytes # 0.5 L (1.0-4.8) k/uL Sodium 136 L (137-145) mmol/L Potassium 6.0 H (3.5-5.1) mmol/L Chloride 97 L (98-107) mmol/L Carbon Dioxide 14 L (22-30) mmol/L BUN 157 H* (9-20) mg/dL Creatinine 6.48 H (0.66-1.25) mg/dL Glucose 171 H (74-99) mg/dL POC Glucose (mg/dL) 175 H (75-99) mg/dL Magnesium 2.5 H (1.6-2.3) mg/dL Alkaline Phosphatase 131 H (38-126) U/L 11/12/20 Range/Units 11:14 WBC (3.8-10.6) k/uL RBC (4.30-5.90) m/uL Hgb (13.0-17.5) gm/dL Hct (39.0-53.0) % RDW (11.5-15.5) % Neutrophils # (1.3-7.7) k/uL Lymphocytes # (1.0-4.8) k/uL Sodium (137-145) mmol/L Potassium (3.5-5.1) mmol/L Chloride (98-107) mmol/L Carbon Dioxide (22-30) mmol/L BUN (9-20) mg/dL Creatinine (0.66-1.25) mg/dL Glucose (74-99) mg/dL POC Glucose (mg/dL) 174 H (75-99) mg/dL Magnesium (1.6-2.3) mg/dL Alkaline Phosphatase (38-126) U/L Assessment and Plan (1) GI bleed Narrative/Plan: 60-year-old male with multiple comorbidities who presented to the emergency department with altered mental status from [facility]. Patient had a drop in his hemoglobin today with reported episode of bloody bowel movement yesterday. He has a history of end-stage renal disease on hemodialysis, coronary artery disease, proximal atrial fibrillation onEliquis with last dose today. Hemoglobin this morning was 6.8, the patient was hypotensive and transferred to the intensive care unit. He is currently undergoing hemodialysis. 1 unit PRBC as ordered. Patient is very drowsy but states that he did have a colonoscopy at the age of 49, no previous EGD. He is unsure if he has a history of ulcers although it is stated in his chart. He denies any NSAID use. Denies abdominal pain, nausea, or vomiting. Patient does state that he has had black stools for quite some time. Patient has been afebrile. We'll hold Eliquis, continue to monitor patient in the ICU and stabilize patient. Unknown etiology of GI bleed, appears more likely to be an upper GI source with possible etiologies include p eptic ulcer disease, gastritis, esophagitis, or AVM. However may also need to consider lower GI source as well. Consider EGD and colonoscopy likely on Wednesday. Current Visit: Yes Status: Acute Code(s): K92.2 - GASTROINTESTINAL HEMORRHAGE, UNSPECIFIED SNOMED Code(s): 65316037 (2) Positive occult stool blood test Current Visit: Yes Status: Acute Code(s): R19.5 - OTHER FECAL ABNORMALITIES SNOMED Code(s): 46055400 (3) Altered mental status Current Visit: No Status: Acute Code(s): R41.82 - ALTERED MENTAL STATUS, UNSPECIFIED SNOMED Code(s): 212158889 (4) ESRD on hemodialysis Current Visit: Yes Status: Acute Code(s): N18.6 - END STAGE RENAL DISEASE; Z99.2 - DEPENDENCE ON RENAL DIALYSIS SNOMED Code(s): 104807134 (5) Atrial fibrillation with RVR Current Visit: No Status: Acute Code(s): I48.91 - UNSPECIFIED ATRIAL FIBRILLATION SNOMED Code(s): 552219204576024 Plan: 1. Continue symptomatic and supportive care 2. Continue ICU management 3. Hold Eliquis 4. Agree with PRBC transfusion 5. Protonix 40 mg twice a day 6. Diabetes tolerated 7. Discussed with patient with proceeding with EGD and possible colonoscopy once hemodynamically stable. 8. Daily CBC, transfuse for hemoglobin less than 7 Thank you for this consultation, we will continue to follow. Dr. Ramana Storey I agree with the dictator's note, documented as a scribe by Kristine Silver.
--- NOTE | 2020-11-12 16:23 | XR ---
EXAMINATION TYPE: XR chest 1V portable DATE OF EXAM: 11/12/2020 COMPARISON: 11/11/2020 INDICATION: Short of breath TECHNIQUE: Single frontal view of the chest is obtained. FINDINGS: The heart size is upper limits of normal. The pulmonary vasculature is normal. Mild left lower lobe infiltrate may be present. Correlate for atelectasis and pneumonia. IMPRESSION: 1. Left lower lobe infiltrate. Clinical correlation recommended for atelectasis or pneumonia.
[2020-11-12] MEDS: ASPIRIN 81 MG PO SCH (17:19)
[2020-11-12] MEDS: FERROUS SULFATE 325 MG TAB PO SCH (17:19)
[2020-11-12] MEDS ORDERED: VANCOMYCIN 1,500 MG in SODIUM CHLORIDE 0.9% 250 ML IVPB ONE (18:00)
[2020-11-12 19:20] LABS: HCT 24.7 % (39.0-53.0); Hyperchromasia Slight; MCH 32.8 pg (25.0-35.0); MCHC 35.7 g/dL (31.0-37.0); Mean Platelet Volume 11.2; Platelet Count 130 k/uL (150-450); RBC 2.68 m/uL (4.30-5.90)
[2020-11-12 19:23] LABS: HGB 8.8 gm/dL (13.0-17.5)
[2020-11-12 20:13] LABS: Ferritin 737.1 ng/mL (22.0-322.0); Folate, Serum 13.9 ng/mL
[2020-11-12 20:32] LABS: Calcium 9.2 mg/dL (8.4-10.2); Potassium 4.6 mmol/L (3.5-5.1)
[2020-11-12] MEDS: ATORVASTATIN 40 MG TAB PO SCH (20:35)
[2020-11-12] MEDS: GABAPENTIN 300 MG CAP PO SCH (20:35)
[2020-11-12] MEDS: MELATONIN 3 MG TABLET PO SCH (20:35)
[2020-11-12] MEDS: TRIAMCINOLONE ACET 0.5% CREAM 15 GM TUBE TOPICAL SCH (20:36)
[2020-11-12] MEDS: SODIUM CHLORIDE 0.9% 1,000 ML IV SCH (20:40)
[2020-11-12] MEDS ORDERED: NON FORMULARY DRUG (Vancomycin Hcl In 5 % Dextrose [Vancomycin 1 Gram/250 Ml-D5w] 1 GM/250 IV SCH (21:51)
--- NOTE | 2020-11-12 22:07 | P.CNNES ---
History of Present Illness Consult date: 11/12/20 Requesting physician: Perry Christian Reason for Consult: AMS History of Present Illness: Patient is a 60-year-old male with history of ESRD, came to the hospital by ambulance yesterday at 5:13 PM for altered mental status. Patient has missed his dialysis on Wednesday. He is on hemodialysis for last 3 years, states that he occasionally misses his hemodialysis. He currently lives in [facility]. Patient states that he has been in and out of hospital and in rehab facility for last 8 months. He has been bed or wheelchair bound since March 2020. As per EMS flow sheet, when they arrived, patient was laying in hospital bed. Patient was alert but lethargic and confused. Patient is not normally confused or as weak. Patient has history of endocarditis. Patient did not receive full dialysis treatment on Wednesday. Patient's blood pressure at the scene was 186/76, pulse rate 69, saturation 99%. Vital signs on arrival blood pressure 122/52, pulse rate 76, temperature 97.9. Blood test shows WBC 10.9 hemoglobin 6.8, platelets 224. Stool occult blood positive. Solis virus PCR negative. Sodium 134 potassium 5.8, BUN 114, creatinine 5.33. Hemoglobin A1c 5.8 on 11/07/2020. GGT is mildly elevated 109/73. B12 over 4000 on 04/13/2020. RBC folate is normal. TSH mildly elevated 5.34. RPR negative. HIV negative. Patient has been seen by Dr. Dru Nixon most recently on 08/13/2020 when he had presented with altered mental status likely due to metabolic encephalopathy. Patient has history of diabetes for 25 years, atrial fibrillation, CAD, heart failure, peripheral neuropathy, deafness, legally blind, ESRD on hemodialysis for the last 3 years and hypertension. Patient denies any tobacco or alcohol u se. Patient had a YAYO performed on 09/24/2020, which revealed vegetation identified on the stream side of the posterior mitral leaflet. There is evidence of at least moderate mitral regurgitation. Aortic sclerosis without stenosis and without insufficiency. No vegetations were seen on the aortic valve. Moderate TR. No vegetation. EF is around 45%. Moderate biatrial enlargement. A previous YAYO from 04/18/2020 showed no evidence of infective endocarditis. 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 Patient at present admits to having bad headache with nausea, numbness tingling all over. Denies any neck or low back pain. Review of Systems Patient complains of numbness and tingling all over. He admits to having headache "bad". He had nausea. He feels uneasy. Denies any neck or low back pain. He has not walked for long time. He has been bedbound or wheelchair bound since March 2020. Patient has bloody bowel movement for which he has received 2 packed RBC. Denies dysuria. No fever or chills. No double vision. He has severely decreased vision right eye. No hearing loss. A 14 point review of systems review and other webb noncontributory. Past Medical History Past Medical History: Atrial Fibrillation, Coronary Artery Disease (CAD), Heart Failure, Diabetes Mellitus, Dialysis, Eye Disorder, GERD/Reflux, Hearing Disorder / Deafness, Hyperlipidemia, Hypertension, Myocardial Infarction ([place]), Renal Disease, Syncope Additional Past Medical History / Comment(s): IDDM type II, neuropathy bilateral hands/feet, ESRD with hemodialysis on //, chronic anemia, LVH, Afib with RVR, MIs, chronic CHF, R eye blindness, L eye legally blind, RLS, pt unsure if he has gout, vertigo at times, balance issues at times, stomach ulcer at age 17yrs, sinus problems, very [place] R ear. Last Myocardial Infarction Date:: 08/09/18 History of Any Multi-Drug Resistant Organisms: MRSA Date of last positivie culture/infection: 09/20/20 MDRO Source:: Blood Past Surgical History: Heart Catheterization, Heart Catheterization With Stent Additional Past Surgical History / Comment(s): TTT, PD catheter placement/since removed, 2016 L arm fistula, fistula gram with balloon for stenosis, L eye vitrectomy, thyroid needle aspiration-negative, L leg cyst, colonoscopy with benign polypectomy. port placed in chest Right side. Past Anesthesia/Blood Transfusion Reactions: Postoperative Nausea & Vomiting (PONV) Date of Last Stent Placement:: 03-03-18 Past Psychological History: Anxiety, Depression Additional Psychological History / Comment(s): Pt resides with his spouse, AND SON. He is legally blind L eye and blind in R eye. He is very [place] in R ear. He has a cane and walker which he uses prn. His spouse and son drive. Pt uses glasses and a magnifier to read. He has depression which he states is constantly present but not increased. He denies thoughts/plans of suicide. Smoking Status: Never smoker Past Alcohol Use History: None Reported Additional Past Alcohol Use History / Comment(s): Pt started smoking in 1972 and quit in 1995. Past Drug Use History: None Reported - Past Family History Father Family Medical History: Cancer, Coronary Artery Disease (CAD), Hyperlipidemia Additional Family Medical History / Comment(s): Lung/BRAIN CANCER Mother Family Medical History: Diabetes Mellitus, Deep Vein Thrombosis (DVT), Osteoarthritis (OA) Additional Family Medical History / Comment(s): DJD Sister(s) Family Medical History: Diabetes Mellitus Additional Family Medical History / Comment(s): Patient has one sister with diabetes mellitus type 2, SLE, MS. Brother(s) Family Medical History: Diabetes Mellitus Additional Family Medical History / Comment(s): Patient has 4 kids no major medical problems. Daughter(s) Family Medical History: No Reported History Additional Family Medical History / Comment(s): Patient has 2 daughters no major medical problems. Son(s) Family Medical History: No Reported History Additional Family Medical History / Comment(s): Patient has 2 sons no major medical problems. Medications and Allergies Home Medications Medication Instructions Recorded Confirmed Type Furosemide [Lasix] 80 mg PO BID@0600,1400 04/13/19 11/11/20 History Ferrous Sulfate [Iron (65 MG 325 mg PO DAILY@1700 08/12/20 11/11/20 History Elemental)] INSULIN ASPART (NovoLOG) [NovoLOG See Protocol SQ ACHS 08/12/20 11/11/20 History (formulary)] Insulin Detemir (Levemir) [Levemir] 5 unit SQ HS@209908/12/20 11/11/20 History bisacodyL [Dulcolax] 10 mg RECTAL DAILY PRN 08/12/20 11/11/20 History Amiodarone [Cordarone] 200 mg PO DAILY@0800 09/19/20 11/11/20 History Apixaban [Eliquis] 2.5 mg PO BID@0800,2100 09/19/20 11/11/20 History Atorvastatin [Lipitor] 40 mg PO HS 09/19/20 11/11/20 History Liquacel 30 ml PO BID@0800,209909/19/20 11/11/20 History Metoprolol Tartrate [Lopressor] 25 mg PO BID@0800,2100 09/19/20 11/11/20 History hydrALAZINE HCL [Apresoline] 75 mg PO TID@0600,1400,209909/19/20 11/11/20 History metOLazone [Zaroxolyn] 5 mg PO DAILY@0800 09/19/20 11/11/20 History Acetaminophen [Tylenol 8 Hour] 650 mg PO Q4H PRN 10/29/20 11/11/20 History Baclofen [Lioresal] 5 mg PO Q8H PRN 10/29/20 11/11/20 History Cholestyramine (with Sugar) 4 gm PO BID@0800,1700 10/29/20 11/11/20 History [Cholestyramine Packet] Docusate [Colace] 100 mg PO BID@0800,1700 10/29/20 11/11/20 History Mupirocin 2% Oint [Bactroban 2% 1 applic TOPICAL BID@0800,1700 10/29/20 11/11/20 History Oint] Triamcinolone 0.1% Cream [Kenalog 1 applic TOPICAL BID@0800,1700 10/29/20 11/11/20 History 0.1% Cream] ALPRAZolam [Xanax] 0.25 mg PO BID PRN #6 tab 10/30/20 11/11/20 Rx Gabapentin 300 mg PO HS@2100 #3 cap 10/30/20 11/11/20 Rx Lidocaine 4% Cream [Lmx 4] 1 applic TOPICAL Q4H PRN 10/30/20 11/11/20 Rx Melatonin 6 mg PO HS #30 tablet 10/30/20 11/11/20 Rx Aspirin 81 mg PO DAILY@1700 11/11/20 11/11/20 History Butalb/Acetaminophen/Caffeine 1 cap PO Q6H PRN 11/11/20 11/11/20 History [Fioricet 50-300-40 mg Capsule] HYDROcodone/APAP 5-325MG [[place] 1 tab PO Q4H PRN 11/11/20 11/11/20 History 5-325] Ipratropium-Albuterol Nebulize 3 ml INHALATION RT-Q6H PRN 11/11/20 11/11/20 History [Duoneb 0.5 mg-3 mg/3 ml Soln] Magnesium Hydroxide [Milk of 7,200 mg PO Q48H PRN 11/11/20 11/11/20 History Magnesia Concentrate] Menthol-Zinc Oxide Oint 1 applic TOPICAL BID 11/11/20 11/11/20 History [Calmoseptine Oint] Oxymetazoline 0.05% Nasl [place] 1 spray EA NOSTRIL Q12H PRN 11/11/20 11/11/20 History [Afrin 0.05% Nasal [place]] Polyethylene Glycol 3350 [Miralax] 17 gm PO DAILY@0800 11/11/20 11/11/20 History Vancomycin HCl in 5 % Dextrose 1 gm IV TUTHSA 11/11/20 11/11/20 History [Vancomycin 1 Gram/250 ml-D5w] hydrOXYzine HCL 25 mg PO Q8H PRN 11/11/20 11/11/20 History Allergies Allergy/AdvReac Type Severity Reaction Status Date / Time codeine Allergy Unknown Verified 11/11/20 13:20 Penicillins Allergy Anaphylaxis Verified 11/11/20 13:20 sulfadiazine Allergy Unknown Verified 11/11/20 13:20 bumetanide [From Bumex] AdvReac Hallucinati Verified 11/11/20 13:20 ons morphine AdvReac Confusion Verified 11/11/20 13:20 rivaroxaban [From Xarelto] AdvReac Bloody Nose Verified 11/11/20 13:20 spironolactone AdvReac Hallucinati Verified 11/11/20 13:20 ons All antibiotics except Keflex Allergy Unknown Uncoded 09/19/20 06:44 Childhood Physical Examination - Vital Signs Vital Signs: Vital Signs Temp Pulse Pulse Resp BP BP Pulse Ox 11/12/20 07:58 122/78 11/12/20 06:51 96.0 F L 72 20 74/41 100 11/12/20 02:00 98.1 F 81 18 124/66 98 11/12/20 00:00 80 17 11/11/20 23:19 98.7 F 80 17 131/67 95 09/20/21 22:23 98.9 F 79 18 121/59 95 11/11/20 20:41 97 11/11/20 20:00 97 11/11/20 19:28 98 11/11/20 18:32 18 11/11/20 17:32 18 11/11/20 17:24 97.9 F 76 18 122/52 97 Intake and Output 11/11/20 11/12/20 11/12/20 22:59 06:59 14:59 Other: # Bowel Movements 3 Weight 83.915 kg Patient is a middle aged male, in no acute distress. He is somewhat somnolent, groggy. Patient is groggy, but does wake up. He is oriented to time place and person. Patient knows his name, that it is October and the year is 2020 and that is in [facility]. Speech and language functions are normal. Attention, concentration and fund of knowledge is limited. On cranial examination, pupils are round and reacting to light, patient has significantly decreased vision in the right eye from retinopathy. He can only see shadows. His visual justice are full on confrontation on the left eye, extraocular muscles are intact with no nystagmus. He tends to keep his right eye closed. Face is symmetric, tongue protrudes to the midline. Palatal elevation and sensation normal, hearing is moderately decreased and shoulder shrug normal, facial sensation normal. On muscle strength testing, the strength is normal in the right upper limb. 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 He is holding his left arm tightly stiff across his left side of the thorax. He claims because he is protecting his AV fistula. Tone is increased in the left side. Patient has very little movement about 1-2 proximally at HF, and distally in the lower extremities is 3+ at ADF. PF is 5- on the right and 4 on the left. Deep tendon reflexes are trace at the biceps, absent at brachioradialis, and distally in the legs. Sensory to touch is equal with no neglect. Cerebellar function showed no ataxia for [id number] testing. Tone and bulk of muscles normal. Gait not able to be checked. On general examination, there is no carotid bruit or murmur, S1-S2 audible. Abdomen is soft nontender. Chest is clear. Patient has significant peripheral edema bilaterally. Results - Laboratory Findings CBC and BMP: 11/13/20 03:57 11/13/20 03:57 Abnormal Lab Findings: Abnormal Labs 11/12/20 11/12/20 07:12 08:38 WBC 10.9 H RBC 2.19 L Hgb 6.8 L* D Hct 21.2 L RDW 16.0 H Neutrophils # 9.8 H Lymphocytes # 0.5 L POC Glucose (mg/dL) 175 H Assessment and Plan Assessment: * Altered mental status due to toxic metabolic encephalopathy, cause is multifactorial. Patient missed dialysis. * Acute GI bleed with drop in hemoglobin and anemia * End-stage renal disease on hemodialysis * Fluid retention, anasarca * B12 deficiency with borderline B12 274 * Bilateral lower extremity weakness, possibly due to previous history of paraspinal abscess, possible ?neuropathy. * History of endocarditis * CHF * History of atrial fibrillation on Eliquis * Hypertension * Diabetes, controlled. Plan: * Patient probably has toxic metabolic encephalopathy due to multiple medical conditions as mentioned above. * Patient has atrial fibrillation, but currently Eliquis is on hold since this morning because of GI bleed. Hemoglobin was 6.8. GI following, for possible EGD and colonoscopy in the next few days. * Patient has bilateral lower extremity weakness, which could be related to peripheral neuropathy. Workup has revealed mild B12 deficiency. We will start B12 replacement. We will check methylmalonic acid, B6, acetylcholine receptor antibodies, CK. * Patient had MRI of the cervical, lumbar and thoracic spine without contrast on 09/24/2020, in which assessment of the spine is largely nondiagnostic. Generalized anasarca. Unable to exclude abnormality at the C1 dens articulation with fluid signal in the predental , possible prevertebral soft tissue swelling/edema and possible pannus and/or erosive changes involving p ortion of the dens. Infectious etiology not excluded. Patient was diagnosed with paraspinal abscess at C1-C2 and transferred to [facility] in early September 2020. Patient's leg weakness could be residual effect of the previous paraspinal abscess. * 2-D echo from 11/12/2020 shows moderate concentric LVH, EF is mildly impaired 45-50%. Paradoxical/dyssynergy septal motion consistent with right ventricular volume overload. Moderate aortic stenosis. Moderate MR. * We will follow clinically. Time with Patient: Greater than 30
[2020-11-12 22:42] LABS: Hepatitis A Antibody IgM Non-Reactive (Non-Reactive); Hepatitis B Core IgM Non-Reactive (Non-Reactive); Hepatitis B Surface Antigen Non-Reactive (Non-Reactive); Hepatitis C IgG Antibody Non-Reactive (Non-Reactive)
[2020-11-12] MEDS: CYANOCOBALAMIN 1,000 MCG/ML 1 ML VIAL IM SCH (22:51)
[2020-11-12] MEDS: INSULIN DETEMIR (LEVEMIR) 100 UNIT/ML SYR SQ SCH (22:51)
--- NOTE | 2020-11-12 23:17 | P.CONS ---
History of Present Illness - Reason for Consult Consult date: 11/12/20 Endocarditis and paraspinal abscess Requesting physician: Perry Christian - Chief Complaint Vomiting and mental status changes x one day - History of Present Illness Patient is a 60 year male with a past medical history significant for end-stage renal disease on hemodialysis patient was recently admitted at this visit he did have evidence of MRSA bacteremia patient did have evidence of mitral wall regurgitation and cervical C1 to 2 paraspinal abscess for the patie nt was sent to tertiary care for further evaluation it is not clear if the patient did have any drainage procedure done apparently the patient has been advised IV vancomycin for 4 weeks the patient is currently receiving with dialysis, patient has been brought to [facility] ER for evaluation of vomiting and the pathology patient was evaluated in the ER yesterday and subsequently sent back to the [facility] however the [facility] reportedly was not comfortable with the patient's clinical condition and subsequently sent back to the ER patient has been nauseated episodes of nonbloody vomiting initially patient was subsequently admitted to the hospital this morning he did have a episode of hematemesis and did have a drop in his hemoglobin with the patient has been transferred out of the ICU, infection disease was consulted for management of his underlying antibiotic therapy, most recently patient has been obtained from review the chart and talking to the nursing staff as the patient was lethargic and did not provide any history Review of Systems Positive points has been mentioned in HPI complete review could not be obtained because of his underlying mental status Past Medical History Past Medical History: Atrial Fibrillation, Coronary Artery Disease (CAD), Heart Failure, Diabetes Mellitus, Dialysis, Eye Disorder, GERD/Reflux, Hearing Disorder / Deafness, Hyperlipidemia, Hypertension, Myocardial Infarction (LA), Renal Disease, Syncope Additional Past Medical History / Comment(s): IDDM type II, neuropathy bilateral hands/feet, ESRD with hemodialysis on M/W/, chronic anemia, LVH, Afib with RVR, MIs, chronic CHF, R eye blindness, L eye legally blind, RLS, pt unsure if he has gout, vertigo at times, balance issues at times, stomach ulcer at age 17yrs, sinus problems, very [place] R ear. Last Myocardial Infarction Date:: 08/09/18 History of Any Multi-Drug Resistant Organisms: MRSA Year Discovered:: 09/20/20 MDRO Source:: Blood Past Surgical History: Heart Catheterization, Heart Catheterization With Stent Additional Past Surgical History / Comment(s): TTT, PD catheter placement/since removed, 2016 L arm fistula, fistula gram with balloon for stenosis, L eye vitrectomy, thyroid needle aspiration-negative, L leg cyst, colonoscopy with benign polypectomy. port placed in chest Right side. Past Anesthesia/Blood Transfusion Reactions: Postoperative Nausea & Vomiting (PONV) Date of Last Stent Placement:: 03-03-18 Past Psychological History: Anxiety, Depression Additional Psychological History / Comment(s): Pt resides with his spouse, AND SON. He is legally blind L eye and blind in R eye. He is very [place] in R ear. He has a cane and walker which he uses prn. His spouse and son drive. Pt uses glasses and a magnifier to read. He has depression which he states is constantly present but not increased. He denies thoughts/plans of suicide. Smoking Status: Never smoker Past Alcohol Use History: None Reported Additional Past Alcohol Use History / Comment(s): Pt started smoking in 1972 and quit in 1995. Past Drug Use History: None Reported - Past Family History Father Family Medical History: Cancer, Coronary Artery Disease (CAD), Hyperlipidemia Additional Family Medical History / Comment(s): Lung/BRAIN CANCER Mother Family Medical History: Diabetes Mellitus, Deep Vein Thrombosis (DVT), Osteoarthritis (OA) Additional Family Medical History / Comment(s): DJD Sister(s) Family Medical History: Diabetes Mellitus Additional Family Medical History / Comment(s): Patient has one sister with diabetes mellitus type 2, SLE, MS. Brother(s) Family Medical History: Diabetes Mellitus Additional Family Medical History / Comment(s): Patient has 4 kids no major medical problems. Daughter(s) Family Medical History: No Reported History Additional Family Medical History / Comment(s): Patient has 2 daughters no major medical problems. Son(s) Family Medical History: No Reported History Additional Family Medical History / Comment(s): Patient has 2 sons no major m edical problems. Medications and Allergies Home Medications Medication Instructions Recorded Confirmed Type Furosemide [Lasix] 80 mg PO BID@0600,1400 04/13/19 11/11/20 History Ferrous Sulfate [Iron (65 MG 325 mg PO DAILY@1700 08/12/20 11/11/20 History Elemental)] INSULIN ASPART (NovoLOG) [NovoLOG See Protocol SQ ACHS 08/12/20 11/11/20 History (formulary)] Insulin Detemir (Levemir) [Levemir] 5 unit SQ HS@209908/12/20 11/11/20 History bisacodyL [Dulcolax] 10 mg RECTAL DAILY PRN 08/12/20 11/11/20 History Amiodarone [Cordarone] 200 mg PO DAILY@0800 09/19/20 11/11/20 History Apixaban [Eliquis] 2.5 mg PO BID@0800,209909/19/20 11/11/20 History Atorvastatin [Lipitor] 40 mg PO HS 09/19/20 11/11/20 History Liquacel 30 ml PO BID@0800,209909/19/20 11/11/20 History Metoprolol Tartrate [Lopressor] 25 mg PO BID@0800,209909/19/20 11/11/20 History hydrALAZINE HCL [Apresoline] 75 mg PO TID@0600,1400,209909/19/20 11/11/20 History metOLazone [Zaroxolyn] 5 mg PO DAILY@0809/19/20 11/11/20 History Acetaminophen [Tylenol 8 Hour] 650 mg PO Q4H PRN 10/29/20 11/11/20 History Baclofen [Lioresal] 5 mg PO Q8H PRN 10/29/20 11/11/20 History Cholestyramine (with Sugar) 4 gm PO BID@0800,1700 10/29/20 11/11/20 History [Cholestyramine Packet] Docusate [Colace] 100 mg PO BID@0800,1700 10/29/20 11/11/20 History Mupirocin 2% Oint [Bactroban 2% 1 applic TOPICAL BID@0800,0 10/29/20 11/11/20 History Oint] Triamcinolone 0.1% Cream [Kenalog 1 applic TOPICAL BID@0800,169910/29/20 11/11/20 History 0.1% Cream] ALPRAZolam [Xanax] 0.25 mg PO BID PRN #6 tab 10/30/20 11/11/20 Rx Gabapentin 300 mg PO HS@2099 #3 cap 10/30/20 11/11/20 Rx Lidocaine 4% Cream [Lmx 4] 1 applic TOPICAL Q4H PRN 10/30/20 11/11/20 Rx Melatonin 6 mg PO HS #30 tablet 10/30/20 11/11/20 Rx Aspirin 81 mg PO DAILY@1700 11/11/20 11/11/20 History Butalb/Acetaminophen/Caffeine 1 cap PO Q6H PRN 11/11/20 11/11/20 History [Fioricet 50-300-40 mg Capsule] HYDROcodone/APAP 5-325MG [[place] 1 tab PO Q4H PRN 11/11/20 11/11/20 History 5-325] Ipratropium-Albuterol Nebulize 3 ml INHALATION RT-Q6H PRN 11/11/20 11/11/20 History [Duoneb 0.5 mg-3 mg/3 ml Soln] Magnesium Hydroxide [Milk of 7,200 mg PO Q48H PRN 11/11/20 11/11/20 History Magnesia Concentrate] Menthol-Zinc Oxide Oint 1 applic TOPICAL BID 11/11/20 11/11/20 History [Calmoseptine Oint] Oxymetazoline 0.05% Nasl [place] 1 spray EA NOSTRIL Q12H PRN 11/11/20 11/11/20 History [Afrin 0.05% Nasal [place]] Polyethylene Glycol 3350 [Miralax] 17 gm PO DAILY@0800 11/11/20 11/11/20 History Vancomycin HCl in 5 % Dextrose 1 gm IV TUTHSA 11/11/20 11/11/20 History [Vancomycin 1 Gram/250 ml-D5w] hydrOXYzine HCL 25 mg PO Q8H PRN 11/11/20 11/11/20 History Allergies Allergy/AdvReac Type Severity Reaction Status Date / Time codeine Allergy Unknown Verified 11/11/20 13:20 Penicillins Allergy Anaphylaxis Verified 11/11/20 13:20 sulfadiazine Allergy Unknown Verified 11/11/20 13:20 bumetanide [From Bumex] AdvReac Hallucinati Verified 11/11/20 13:20 ons morphine AdvReac Confusion Verified 11/11/20 13:20 rivaroxaban [From Xarelto] AdvReac Bloody Nose Verified 11/11/20 13:20 spironolactone AdvReac Hallucinati Verified 11/11/20 13:20 ons All antibiotics except Keflex Allergy Unknown Uncoded 09/19/20 06:44 Childhood Physical Exam Vitals: Vital Signs Temp Pulse Pulse Resp BP BP Pulse Ox 11/12/20 08:00 20 11/12/20 07:58 122/78 11/12/20 06:51 96.0 F L 72 20 74/41 100 11/12/20 02:00 98.1 F 81 18 124/66 98 11/12/20 00:00 80 17 11/11/20 23:19 98.7 F 80 17 131/67 95 11/11/20 22:23 98.9 F 79 18 121/59 95 11/11/20 20:41 97 11/11/20 20:00 97 11/11/20 19:28 98 11/11/20 18:32 18 11/11/20 17:32 18 11/11/20 17:24 97.9 F 76 18 122/52 97 Intake and Output 11/11/20 11/12/20 11/12/20 22:59 06:59 14:59 Other: # Bowel Movements 3 Weight 83.915 kg GENERAL DESCRIPTION: Middle-aged male lying in bed, no distress. No tachypnea or accessory muscle of respiration use. HEENT: Shows Pallor , no scleral icterus. Oral mucous membrane is dry. NECK: Trachea central, no thyromegaly. LUNGS: Unlabored breathing. Decreased breath sound the bases. No wheeze or crackle. HEART: S1, S2, regular rate and rhythm. No loud murmur ABDOMEN: Soft, no tenderness , guarding or rigidity, no organomegaly EXTREMITIES: No edema of feet. SKIN: No rash, no masses palpable. NEUROLOGICAL: The patient is lethargic orientation could not be determined Results CBC & Chem 7: 11/12/20 18:55 11/12/20 20:00 Labs: Abnormal Lab Results - Last 24 Hours (Table) 11/12/20 11/12/20 11/12/20 Range/Units 07:12 08:38 08:38 WBC 10.9 H (3.8-10.6) k/uL RBC 2.19 L (4.30-5.90) m/uL Hgb 6.8 L* D (13.0-17.5) gm/dL Hct 21.2 L (39.0-53.0) % RDW 16.0 H (11.5-15.5) % Neutrophils # 9.8 H (1.3-7.7) k/uL Lymphocytes # 0.5 L (1.0-4.8) k/uL Sodium 136 L (137-145) mmol/L Potassium 6.0 H (3.5-5.1) mmol/L Chloride 97 L (98-107) mmol/L Carbon Dioxide 14 L (22-30) mmol/L BUN 157 H* (9-20) mg/dL Creatinine 6.48 H (0.66-1.25) mg/dL Glucose 171 H (74-99) mg/dL POC Glucose (mg/dL) 175 H (75-99) mg/dL Magnesium 2.5 H (1.6-2.3) mg/dL Alkaline Phosphatase 131 H (38-126) U/L Assessment and Plan Assessment: 1-patient with a recent diagnosis of MRSA bacteremia secondary to mitral endocarditis and cervical C1- 2 paraspinal abscess, for the patient was transferred to tertiary care and it is not very clear if the patient has any drainage procedure done or not, no admitted to the hospital with mental status changes in the GI bleed (1) Endocarditis Current Visit: Yes Status: Acute Code(s): I38 - ENDOCARDITIS, VALVE UNSPECIFIED SNOMED Code(s): 77882804 (2) MRSA (methicillin resistant staph aureus) culture positive Current Visit: Yes Status: Acute Code(s): Z22.322 - CARRIER OR SUSPECTED CARRIER OF METHICILLIN RESIS STAPH SNOMED Code(s): 182637381 Plan: 1-vancomycin pharmacy to dose while watching his clinical course closely 2-we will try to obtain records from tertiary care where the patient paraspinal abscess was treated We will follow on clinical condition and cultures to further adjust medication if needed Thank you for this consultation will follow this patient with you Time with Patient: Greater than 30
[2020-11-13] MEDS: hydrOXYzine HCL 25 MG TAB PO PRN ×2 (00:51→09:52)
[2020-11-13] MEDS: BACLOFEN 10 MG TAB PO PRN ×2 (02:52→18:01)
[2020-11-13] MEDS: ACETAMINOPHEN TAB 325 MG TAB PO PRN (02:52)
[2020-11-13 04:17] LABS: Basophils % (A) 1 %; Eosinophils % (A) 0 %; HCT 24.5 % (39.0-53.0); HGB 8.1 gm/dL (13.0-17.5); Lymphocytes # (A) 0.6 k/uL (1.0-4.8); Lymphocytes % (A) 7 %; MCH 32.2 pg (25.0-35.0); MCHC 33.1 g/dL (31.0-37.0); MCV 97.1 fL (80.0-100.0); Mean Platelet Volume 8.5; Monocytes # (A) 0.5 k/uL (0-1.0); Monocytes % (A) 6 %; Neutrophils # (A) 6.8 k/uL (1.3-7.7); Neutrophils % (A) 84 %; Platelet Count 176 k/uL (150-450); RBC 2.52 m/uL (4.30-5.90); RDW 15.7 % (11.5-15.5); WBC 8.1 k/uL (3.8-10.6)
[2020-11-13 04:29] LABS: Calcium 9.4 mg/dL (8.4-10.2); Potassium 4.5 mmol/L (3.5-5.1)
[2020-11-13] MEDS: CHOLESTYRAMINE (WITH SUGAR) 4 GM PACKET PO SCH ×2 (06:56→17:21)
[2020-11-13] MEDS: IPRATROPIUM-ALBUTEROL 3 ML NEB INHALATION PRN (07:08)
[2020-11-13] MEDS: HYDROcodone/APAP 5-325MG 1 EACH TAB PO PRN (08:50)
[2020-11-13] MEDS: TRIAMCINOLONE ACET 0.5% CREAM 15 GM TUBE TOPICAL SCH ×2 (08:56→21:22)
[2020-11-13] MEDS: AMIODARONE 200 MG TAB PO SCH (08:57)
[2020-11-13] MEDS: PANTOPRAZOLE 40 MG/10 ML VIAL IVP SCH (08:57)
[2020-11-13] MEDS: METOPROLOL TARTRATE 25 MG TAB PO SCH ×2 (08:57→21:21)
[2020-11-13] MEDS: DOCUSATE 100 MG CAP PO SCH ×2 (08:57→21:21)
[2020-11-13] MEDS: CYANOCOBALAMIN 1,000 MCG/ML 1 ML VIAL IM SCH (08:58)
[2020-11-13] MEDS ORDERED: MIDODRINE 5 MG TAB PO STA (09:51)
[2020-11-13] MEDS: ONDANSETRON 4 MG TAB PO PRN ×2 (09:52→18:04)
--- NOTE | 2020-11-13 09:53 | P.PN ---
Subjective Progress Note Date: 11/13/20 Principal diagnosis: Gastrointestinal bleeding. Pulmonary consult dated 11/12/2020. 60-year-old male, who was seen in the emergency department, on November 11. He was seen by one of the ER physicians. The patient does have a history of end- stage renal disease, and presented to the emergency department with lethargy, and vomiting. The patient apparently came from [facility]. The patient was recently discharged from this hospital on October 30. He apparently is been at [facility] since. His clinical appearance was poor, and they felt uncomfortable and they sent him here to be evaluated. The patient was admitted to room 477. Apparently last night, the patient was having issues of tarry stools and maroon stools, and the patient apparently was also hypotensive. The patient had apparently missed dialysis this past Wednesday. Anyway, the patient was transferred to the intensive care unit is now in room 262. The patient is currently undergoing hemodialysis. In addition, the hemoglobin was found to be 6.8, and 2 units of blood was ordered. He apparently may have a colonoscopy tomorrow, November 13. His heart rate is 75, his saturations on 2 L or 99%, and his blood pressure is 110/65. We will get a chest x-ray. White count 10.9, hemoglobin 6.8, hematocrit 21.2, and platelet count 224,000. Sodium 136, potassium 6, chlorides 97, CO2 14, anion gap 25, and BUN and creatinine are 157 and 6.48. The N-terminal proBNP was 32,200. His coronavirus testing was negative. No chest x-ray had yet been done. The patient was seen by our group last in March. This is right around mid March at which time the patient apparently had a brief episode of cardiopulmonary arrest. The patient was resuscitated. We have not seen him since that admission. Progress note dated 11/13/2020. This is a 60-year-old male that was seen yesterday in consultation. He was initially seen in the emergency department on November 11. The patient has history of end-stage renal disease, currently on 3 time a week hemodialysis. [facility] and [facility]. Here, he was found to have some gastrointestinal bleeding. The patient was transferred to the intensive care unit for further monitoring and treatment. Currently, he is much more awake and alert. He is on 3 L nasal cannula. He is getting saline at 10 mL an hour. He did have hemodialysis yesterday. As of yesterday, he was scheduled to have a colonoscopy today. That has not yet been done. He was seen by gastroenterology team yesterday. White count 8.1, hemoglobin 8.1, hematocrit 24.5, and platelet count 176,000. Sodium 137, potassium 4.5, chlorides 99, CO2 19, anion gap 19, BUN 96, and creatinine 4.28. The patient did receive 2 units of blood yesterday. Chest x-ray shows either an infiltrate/atelectasis,/pleural effusion, left lower lobe. Objective - Vital Signs Vital signs: Vital Signs Temp 98.4 F 11/13/20 04:00 Pulse 70 11/13/20 07:21 Resp 17 11/13/20 07:00 BP 122/55 11/13/20 07:00 Pulse Ox 97 11/13/20 07:00 Intake & Output 11/12/20 11/13/20 11/13/20 18:59 06:59 18:59 Intake Total 637 360 10 Output Total 1181 0 Balance -544 360 10 Weight 97.9 kg Intake: IV 50 120 10 0.9 KVO 50 120 10 Oral 240 Blood Product 587 Rc As-1 Unit 310 [id number] Rc Pheresis 2 As3 Unit 277 [id number] Output: Urine 0 0 Hemodialysis 1181 - Exam No acute distress, sleepy and lethargic, but does arouse. Currently on 3 L nasal cannula with saturations 100 %. HEENT examination is grossly unremarkable. Neck supple. Full range of motion. No adenopathy thyromegaly or neck vein distention. Cardiovascular examination reveals regular rhythm rate. S1-S2 normal. No S3 or S4. No discernible murmur noted. Heart sounds distant. Heart rate 70 bpm. Lungs reveal mostly clear breath sounds. Scattered rhonchi are noted. No wheezes or crackles. Breath sounds equal bilaterally. Abdomen soft bowel sounds are heard. No masses or tenderness. Extremities reveal 2+ pitting edema. There is also some chronic venous stasis changes. No cyanosis or clubbing. Skin is without rash or lesion. Neurologic examination reveals a very lethargic but arousable male. - Labs CBC & Chem 7: 11/13/20 03:57 11/13/20 03:57 Labs: Abnormal Lab Results - Last 24 Hours (Table) 11/12/20 11/12/20 11/12/20 Range/Units 08:38 08:51 10:46 WBC (3.8-10.6) k/uL RBC (4.30-5.90) m/uL Hgb (13.0-17.5) gm/dL Hct (39.0-53.0) % RDW (11.5-15.5) % Plt Count (150-450) k/uL Lymphocytes # (1.0-4.8) k/uL Sodium 136 L (137-145) mmol/L Potassium 6.0 H (3.5-5.1) mmol/L Chloride 97 L (98-107) mmol/L Carbon Dioxide 14 L (22-30) mmol/L BUN 157 H* (9-20) mg/dL Creatinine 6.48 H (0.66-1.25) mg/dL Glucose 171 H (74-99) mg/dL POC Glucose (mg/dL) (75-99) mg/dL Magnesium 2.5 H (1.6-2.3) mg/dL Ferritin 737.1 H (22.0-322.0) ng/mL Alkaline Phosphatase 131 H (38-126) U/L Creatine Kinase (55-170) U/L Crossmatch See Detail 11/12/20 11/12/20 11/12/20 Range/Units 11:14 18:55 20:00 WBC 11.0 H (3.8-10.6) k/uL RBC 2.68 L (4.30-5.90) m/uL Hgb 8.8 L D (13.0-17.5) gm/dL Hct 24.7 L (39.0-53.0) % RDW 16.0 H (11.5-15.5) % Plt Count 130 L (150-450) k/uL Lymphocytes # (1.0-4.8) k/uL Sodium (137-145) mmol/L Potassium (3.5-5.1) mmol/L Chloride (98-107) mmol/L Carbon Dioxide 20 L (22-30) mmol/L BUN 90 H (9-20) mg/dL Creatinine 3.92 H (0.66-1.25) mg/dL Glucose 160 H (74-99) mg/dL POC Glucose (mg/dL) 174 H (75-99) mg/dL Magnesium (1.6-2.3) mg/dL Ferritin (22.0-322.0) ng/mL Alkaline Phosphatase (38-126) U/L Creatine Kinase (55-170) U/L Crossmatch 11/12/20 11/13/20 11/13/20 Range/Units 20:00 03:57 03:57 WBC (3.8-10.6) k/uL RBC 2.52 L (4.30-5.90) m/uL Hgb 8.1 L (13.0-17.5) gm/dL Hct 24.5 L (39.0-53.0) % RDW 15.7 H (11.5-15.5) % Plt Count (150-450) k/uL Lymphocytes # 0.6 L (1.0-4.8) k/uL Sodium (137-145) mmol/L Potassium (3.5-5.1) mmol/L Chloride (98-107) mmol/L Carbon Dioxide 19 L (22-30) mmol/L BUN 96 H (9-20) mg/dL Creatinine 4.28 H (0.66-1.25) mg/dL Glucose 127 H (74-99) mg/dL POC Glucose (mg/dL) (75-99) mg/dL Magnesium (1.6-2.3) mg/dL Ferritin (22.0-322.0) ng/mL Alkaline Phosphatase (38-126) U/L Creatine Kinase 180 H (55-170) U/L Crossmatch Assessment and Plan Assessment: Acute GI bleed, to be evaluated with colonoscopy on November 13. Acute on chronic anemia, to receive 2 units of PRBCs. End-stage renal disease, currently on 3 time a week hemodialysis. Episode in March of this year, of cardiopulmonary arrest, with brief cardi opulmonary resuscitation and return of spontaneous circulation. History of atrial fibrillation. History of CAD, status post stent placement. History of CHF. History of diabetes mellitus. Gastroesophageal reflux disease. History of deafness. History of hyperlipidemia. History of hypertension. Her history of myocardial infarction. History of syncope. History of gout. Multiple other medical problems and comorbidities. Plan: Plan dated 11/12/2020. The patient is seen in the intensive care unit, room 262. The patient will receive some blood. The patient is currently undergoing hemodialysis. Additional recommendations and suggestions are forthcoming. The patient may undergo colonoscopy tomorrow, November 13. We will continue to follow make recommendations where appropriate. The consultation by my partner from March of this year, is reviewed. Plan dated . The patient remains on vancomycin as per infectious diseases. From my perspective, the patient stable enough to be transferred out of the intensive care unit. He's not having any further bleeding from the gastrointestinal tract. His hemoglobin is stable. Clinically he is doing well. His respiratory status is stable. I don't believe he is actually having pneumonia this time. Additional recommendations and suggestions are forthcoming. We will continue to follow make recommendations where appropriate. Time with Patient: Less than 30
[2020-11-13] MEDS: hydrALAZINE HCL 25 MG TAB PO SCH ×3 (09:54→21:21)
[2020-11-13] MEDS: polyethylene glycoL 3350 17 GM POWD.PACK PO SCH (09:55)
--- NOTE | 2020-11-13 11:04 | P.CRDCN ---
History of Present Illness Consult date: 11/13/20 History of present illness: HISTORY OF PRESENT ILLNESS: This is a 60 year old male with a past medical history significant for end stage renal disease, coronary artery disease with PCI to circumflex and LAD in September 2018, proximal atrial fibrillation, diabetes, hypertension, hyperlipidemia, and MRSA bacteremia. Patient follows in the office with Dr. Bowie. We have been asked to see the patient in consultation for congestive heart failure. Patient examined in the intensive care unit. He is awake and alert, sitting up in the chair. He was initially sent to the emergency room from [facility] due to lethargy. Patient apparently was having dark tarry stools and hypotension and was transferred to the ICU. The patient is unable to recall if he is still having dark stools. Hemoglobin on admission was 6.8. Patient received RBC transfusion. Hemoglobin this morning 8.1. Patients Eliquis remains on hold and GI is following for possible endoscopy. Echocardiogram completed revealed ejection fraction 45-50%. Moderate mitral regurgitation. Moderate tricuspid regurgitation. Mild pulmonary hypertension. Moderate aortic stenosis. Chest xray: left lower lobe infiltrate. Laboratory data: WBC 8.1. Hemoglobin 8.1. Platelet count 176. Sodium 137. Potassium 4.5. BUN 96. Creatinine 4.28. ProBNP 32,200. Current home cardiac medications include metoprolol tartrate 25 mg twice a day, Zaroxolyn 5 mg daily, hydralazine 75 mg 3 times a day, Lasix 80 mg twice a day, Lipitor 49 g daily, aspirin 81 mg daily, Eliquis 2.5 mg twice a day, amiodarone 200 mg daily REVIEW OF SYSTEMS: At the time of my exam: CONSTITUTIONAL: Denies fever or chills. HEENT: Denies blurred vision, vision changes, or eye pain. Denies hemoptysis CARDIOVASCULAR: Denies chest pain. Denies orthopnea. Denies PND. Denies palpitations RESPIRATORY: Denies shortness of breath. GASTROINTESTINAL: Denies abdominal pain. Denies nausea or vomiting. HEMATOLOGIC: Denies bleeding disorders. GENITOURINARY: Denies any blood in urine. SKIN: Denies pruitis. Denies rash. PHYSICAL EXAM: VITAL SIGNS: Reviewed. GENERAL: Well-developed in no acute distress. HEENT: Head is normocephalic. Pupils are equal, round. Sclerae anicteric. Mucous membranes of the mouth are moist. Neck supple. No JVD or thyromegaly LUNGS: Respirations even and unlabored. Lungs diminished to auscultation bilaterally with scattered rhonchi. HEART: Regular rate and rhythm. S1 and S2 heard. ABDOMEN: Soft. Nondistended. Nontender. EXTREMITIES: Normal range of motion. No clubbing or cyanosis. Peripheral pulses intact. 2+ bilateral lower extremity edema NEUROLOGIC: Awake and alert. Oriented x 3. ASSESSMENT: Acute blood loss anemia Acute GI bleed End stage renal disease on hemodialysis Coronary artery disease with PCI to circumflex and LAD, September 2018 Paroxysmal atrial fibrillation Chronic diastolic congestive heart failure Hypertension Hyperlipidemia Diabetes History of MRSA bacteremia PLAN: Continue current cardiac medications Continue to hold Eliquis. Monitor hemoglobin. GI following for possible endoscopy Hemodialysis per nephrology Patient is stable from a cardiac perspective Nurse practitioner note has been reviewed by physician. Signing provider agrees with the documented findings, assessment, and plan of care. Past Medical History Past Medical History: Atrial Fibrillation, Coronary Artery Disease (CAD), Heart Failure, Diabetes Mellitus, Dialysis, Eye Disorder, GERD/Reflux, Hearing Disorder / Deafness, Hyperlipidemia, Hypertension, Myocardial Infarction (MD), Renal Disease, Syncope Additional Past Medical History / Comment(s): IDDM type II, neuropathy bilateral hands/feet, ESRD with hemodialysis on /W/, chronic anemia, LVH, Afib with RVR, MIs, chronic CHF, R eye blindness, L eye legally blind, RLS, pt unsure if he has gout, vertigo at times, balance issues at times, stomach ulcer at age 17yrs, sinus problems, very EW[place]YP R ear. Last Myocardial Infarction Date:: 08/09/18 History of Any Multi-Drug Resistant Organisms: MRSA Date of last positivie culture/infection: 09/20/20 MDRO Source:: Blood Past Surgical History: Heart Catheterization, Heart Catheterization With Stent Additional Past Surgical History / Comment(s): TTT, PD catheter placement/since removed, 2016 L arm fistula, fistula gram with balloon for stenosis, L eye vitrectomy, thyroid needle aspiration-negative, L leg cyst, colonoscopy with benign polypectomy. port placed in chest Right side. Past Anesthesia/Blood Transfusion Reactions: Postoperative Nausea & Vomiting (PONV) Date of Last Stent Placement:: 03-03-18 Past Psychological History: Anxiety, Depression Additional Psychological History / Comment(s): Pt resides with his spouse, AND SON. He is legally blind L eye and blind in R eye. He is very EW[place]YP in R ear. He has a cane and walker which he uses prn. His spouse and son drive. Pt uses glasses and a magnifier to read. He has depression which he states is constantly present but not increased. He denies thoughts/plans of suicide. Smoking Status: Never smoker Past Alcohol Use History: None Reported Additional Past Alcohol Use History / Comment(s): Pt started smoking in 1972 and quit in 1995. Past Drug Use History: None Reported - Past Family History Father Family Medical History: Cancer, Coronary Artery Disease (CAD), Hyperlipidemia Additional Family Medical History / Comment(s): Lung/BRAIN CANCER Mother Family Medical History: Diabetes Mellitus, Deep Vein Thrombosis (DVT), Osteoarthritis (OA) Additional Family Medical History / Comment(s): DJD Sister(s) Family Medical History: Diabetes Mellitus Additional Family Medical History / Comment(s): Patient has one sister with diabetes mellitus type 2, SLE, MS. Brother(s) Family Medical History: Diabetes Mellitus Additional Family Medical History / Comment(s): Patient has 4 kids no major medical problems. Daughter(s) Family Medical History: No Reported History Additional Family Medical History / Comment(s): Patient has 2 daughters no major medical problems. Son(s) Family Medical History: No Reported History Additional Family Medical History / Comment(s): Patient has 2 sons no major medical problems. Medications and Allergies Home Medications Medication Instructions Recorded Confirmed Type Furosemide [Lasix] 80 mg PO BID@0600,1400 04/13/19 11/11/20 History Ferrous Sulfate [Iron (65 MG 325 mg PO DAILY@1700 08/12/20 11/11/20 History Elemental)] INSULIN ASPART (NovoLOG) [NovoLOG See Protocol SQ ACHS 08/12/20 11/11/20 History (formulary)] Insulin Detemir (Levemir) [Levemir] 5 unit SQ HS@2100 08/12/20 11/11/20 History bisacodyL [Dulcolax] 10 mg RECTAL DAILY PRN 08/12/20 11/11/20 History Amiodarone [Cordarone] 200 mg PO DAILY@0800 09/19/20 11/11/20 History Apixaban [Eliquis] 2.5 mg PO BID@0800,2100 09/19/20 11/11/20 History Atorvastatin [Lipitor] 40 mg PO HS 09/19/20 11/11/20 History Liquacel 30 ml PO BID@0800,2100 09/19/20 11/11/20 History Metoprolol Tartrate [Lopressor] 25 mg PO BID@0800,2100 09/19/20 11/11/20 History hydrALAZINE HCL [Apresoline] 75 mg PO TID@0600,1400,209909/19/20 11/11/20 History metOLazone [Zaroxolyn] 5 mg PO DAILY@0800 09/19/20 11/11/20 History Acetaminophen [Tylenol 8 Hour] 650 mg PO Q4H PRN 10/29/20 11/11/20 History Baclofen [Lioresal] 5 mg PO Q8H PRN 10/29/20 11/11/20 History Cholestyramine (with Sugar) 4 gm PO BID@0800,1700 10/29/20 11/11/20 History [Cholestyramine Packet] Docusate [Colace] 100 mg PO BID@0800,1700 10/29/20 11/11/20 History Mupirocin 2% Oint [Bactroban 2% 1 applic TOPICAL BID@0800,1700 10/29/20 11/11/20 History Oint] Triamcinolone 0.1% Cream [Kenalog 1 applic TOPICAL BID@0800,1700 10/29/20 11/11/20 History 0.1% Cream] ALPRAZolam [Xanax] 0.25 mg PO BID PRN #6 tab 10/30/20 11/11/20 Rx Gabapentin 300 mg PO HS@2100 #3 cap 10/30/20 11/11/20 Rx Lidocaine 4% Cream [Lmx 4] 1 applic TOPICAL Q4H PRN 10/30/20 11/11/20 Rx Melatonin 6 mg PO HS #30 tablet 10/30/20 11/11/20 Rx Aspirin 81 mg PO DAILY@1700 11/11/20 11/11/20 History Butalb/Acetaminophen/Caffeine 1 cap PO Q6H PRN 11/11/20 11/11/20 History [Fioricet 50-300-40 mg Capsule] HYDROcodone/APAP 5-325MG [[place] 1 tab PO Q4H PRN 11/11/20 11/11/20 History 5-325] Ipratropium-Albuterol Nebulize 3 ml INHALATION RT-Q6H PRN 11/11/20 11/11/20 History [Duoneb 0.5 mg-3 mg/3 ml Soln] Magnesium Hydroxide [Milk of 7,200 mg PO Q48H PRN 11/11/20 11/11/20 History Magnesia Concentrate] Menthol-Zinc Oxide Oint 1 applic TOPICAL BID 11/11/20 11/11/20 History [Calmoseptine Oint] Oxymetazoline 0.05% Nasl [place] 1 spray EA NOSTRIL Q12H PRN 11/11/20 11/11/20 History [Afrin 0.05% Nasal [place]] Polyethylene Glycol 3350 [Miralax] 17 gm PO DAILY@0800 11/11/20 11/11/20 History Vancomycin HCl in 5 % Dextrose 1 gm IV TUTHSA 11/11/20 11/11/20 History [Vancomycin 1 Gram/250 ml-D5w] hydrOXYzine HCL 25 mg PO Q8H PRN 11/11/20 11/11/20 History Allergies Allergy/AdvReac Type Severity Reaction Status Date / Time codeine Allergy Unknown Verified 11/11/20 13:20 Penicillins Allergy Anaphylaxis Verified 11/11/20 13:20 sulfadiazine Allergy Unknown Verified 11/11/20 13:20 bumetanide [From Bumex] AdvReac Hallucinati Verified 11/11/20 13:20 ons morphine AdvReac Confusion Verified 11/11/20 13:20 rivaroxaban [From Xarelto] AdvReac Bloody Nose Verified 11/11/20 13:20 spironolactone AdvReac Hallucinati Verified 11/11/20 13:20 ons All antibiotics except Keflex Allergy Unknown Uncoded 09/19/20 06:44 Childhood Physical Exam Vitals: Vital Signs Temp Pulse Pulse Resp BP BP Pulse Ox 11/13/20 10:00 67 14 114/52 100 11/13/20 09:00 70 16 120/62 100 11/13/20 08:00 97.5 F L 69 18 122/55 97 11/13/20 07:21 70 11/13/20 07:09 71 11/13/20 07:00 67 17 122/55 97 11/13/20 06:00 70 20 124/64 100 11/13/20 05:00 71 12 120/60 95 11/13/20 04:00 98.4 F 70 21 125/70 98 11/13/20 03:00 72 12 125/70 98 11/13/20 02:00 70 10 L 114/60 98 11/13/20 01:00 70 22 103/57 96 11/13/20 00:05 69 24 90/68 97 11/13/20 00:00 70 17 115/46 100 11/12/20 23:30 69 16 115/46 95 11/12/20 23:00 69 21 105/61 96 11/12/20 22:30 69 21 111/62 100 11/12/20 22:00 70 23 107/59 100 11/12/20 21:30 73 27 H 122/66 95 11/12/20 21:00 70 23 129/72 100 11/12/20 20:30 81 18 134/68 100 11/12/20 20:00 97.8 F 82 14 133/84 98 11/12/20 19:30 82 18 127/66 99 11/12/20 19:00 84 17 114/91 99 11/12/20 18:30 83 11 L 113/68 98 11/12/20 18:00 81 12 108/84 98 11/12/20 17:30 78 13 150/93 93 L 11/12/20 17:19 96.3 F L 86 13 125/71 92 L 11/12/20 17:00 82 12 130/70 100 11/12/20 16:30 83 14 124/59 99 11/12/20 16:04 96.3 F L 116 H 11 L 100/67 100 11/12/20 16:00 96.3 F L 116 H 11 L 100/67 100 11/12/20 15:34 96.3 F L 105 H 22 92/43 99 11/12/20 15:30 111 H 21 94/56 100 11/12/20 15:24 96.3 F L 112 H 21 94/56 92 L 11/12/20 15:20 98.6 F 123 H 22 95/59 11/12/20 15:00 122 H 30 H 85/53 100 11/12/20 14:30 111 H 24 109/31 100 11/12/20 14:09 96.3 F L 86 21 110/67 94 L 11/12/20 14:00 92 10 L 108/63 100 11/12/20 13:52 96.3 F L 84 15 95/59 99 11/12/20 13:30 80 11 L 107/55 99 11/12/20 13:22 96.3 F L 80 13 107/55 100 11/12/20 13:12 96.3 F L 80 14 102/63 100 11/12/20 13:00 126 H 11 L 100/62 100 11/12/20 12:30 117 H 14 106/67 100 11/12/20 12:00 96.2 F L 79 10 L 118/61 99 11/12/20 11:30 73 12 99/55 100 Intake and Output 11/12/20 11/13/20 11/13/20 22:59 06:59 14:59 Intake Total 357 320 120 Output Total 1181 Balance -824 320 120 Intake: IV 80 80 20 0.9 KVO 80 80 20 Oral 240 100 Blood Product 277 Rc Pheresis 2 As3 Unit 277 [id number] Output: Urine 0 Hemodialysis 1181 Other: Weight 97.9 kg Results 11/13/20 03:57 11/13/20 03:57 CBC 11/12/20 11/13/20 Range/Units 18:55 03:57 WBC 11.0 H 8.1 (3.8-10.6) k/uL RBC 2.68 L 2.52 L (4.30-5.90) m/uL Hgb 8.8 L D 8.1 L (13.0-17.5) gm/dL Hct 24.7 L 24.5 L (39.0-53.0) % Plt Count 130 L 176 (150-450) k/uL Comprehensive Metabolic Panel 11/12/20 11/13/20 Range/Units 20:00 03:57 Sodium 137 137 (137-145) mmol/L Potassium 4.6 4.5 (3.5-5.1) mmol/L Chloride 98 99 (98-107) mmol/L Carbon Dioxide 20 L 19 L (22-30) mmol/L BUN 90 H 96 H (9-20) mg/dL Creatinine 3.92 H 4.28 H (0.66-1.25) mg/dL Glucose 160 H 127 H (74-99) mg/dL Calcium 9.2 9.4 (8.4-10.2) mg/dL Current Medications Generic Name Dose Route Start Last Admin Trade Name Freq PRN Reason Stop Dose Admin Acetaminophen 650 mg 11/11/20 17:49 11/13/20 02:52 Acetaminophen Tab 325 Mg Tab PO 650 mg Q6HR PRN Administration Mild Pain or Fever > 100.5 Acetaminophen/Butalbital/Caffeine 1 each 11/11/20 21:51 Butalb/Apap/Caff 50-325-40mg Tab PO Q6H PRN Headache Hydrocodone Bitart/Acetaminophen 1 each 11/11/20 21:51 11/13/20 08:50 Hydrocodone/Apap 5-325mg 1 Each Tab PO 1 each Q4H PRN Administration Pain Albuterol/Ipratropium 3 ml 11/11/20 21:51 11/13/20 07:08 Ipratropium-Albuterol 3 Ml Neb INHALATION 3 ml RT-Q6H PRN Administration Wheezing Alprazolam 0.25 mg 11/11/20 21:51 11/12/20 20:59 Alprazolam 0.25 Mg Tab PO 0.25 mg BID PRN Administration Anxiety Amiodarone HCl 200 mg 11/12/20 09:00 11/13/20 08:57 Amiodarone 200 Mg Tab PO 200 mg DAILY JLUIS Administration Aspirin 81 mg 11/12/20 17:00 11/12/20 17:19 Aspirin 81 Mg PO 81 mg DAILY@1700 JLUIS Administration Atorvastatin Calcium 40 mg 11/12/20 21:00 11/12/20 20:35 Atorvastatin 40 Mg Tab PO 40 mg HS JLUIS Administration Baclofen 5 mg 11/11/20 21:51 11/13/20 02:52 Baclofen 10 Mg Tab PO 5 mg Q8H PRN Administration Muscle Spasm Bisacodyl 10 mg 11/11/20 21:51 Bisacodyl 10 Mg Supp RECTAL DAILY PRN Constipation Cholestyramine Resin 4 gm 11/12/20 07:30 11/13/20 06:56 Cholestyramine (With Sugar) 4 Gm Packet PO 4 gm AC-BID JLUIS Administration Cyanocobalamin 1,000 mcg 11/12/20 22:00 11/13/20 08:58 Cyanocobalamin 1,000 Mcg/Ml 1 Ml Vial IM 1,000 mcg DAILY JLUIS Administration Darbepoetin Luis 60 mcg 11/12/20 12:00 11/12/20 13:09 Darbepoetin Luis 60 Mcg/0.3 Ml Syringe SQ 60 mcg Q7D JLUIS Administration Docusate Sodium 100 mg 11/12/20 09:00 11/13/20 08:57 Docusate 100 Mg Cap PO 100 mg BID JLUIS Administration Ferrous Sulfate 325 mg 11/12/20 17:00 11/12/20 17:19 Ferrous Sulfate 325 Mg Tab PO 325 mg DAILY@1700 [facility] Administration Gabapentin 300 mg 11/12/20 21:00 11/12/20 20:35 Gabapentin 300 Mg Cap PO 300 mg HS@2100 JLUIS Administration Hydralazine HCl 75 mg 11/12/20 09:00 11/13/20 09:54 Hydralazine Hcl 25 Mg Tab PO Not Given TID [facility] Hydroxyzine HCl 25 mg 11/11/20 21:51 11/13/20 09:52 Hydroxyzine Hcl 25 Mg Tab PO 25 mg Q8H PRN Administration Itching Sodium Chloride 1,000 mls @ 20 mls/hr 11/11/20 18:00 11/12/20 20:40 Saline 0.9% IV Not Given .Q24H [facility] Insulin Detemir 5 unit 11/12/20 21:00 11/12/20 22:51 Insulin Detemir (Levemir) 100 Unit/Ml Syr SQ 5 unit HS@2100 [facility] Administration Lidocaine HCl 1 applic 11/11/20 21:51 Lidocaine 2% Gel 30 Ml Tube TOPICAL Q4H PRN Pain Protocol Magnesium Hydroxide 7,200 mg 11/11/20 21:51 Magnesium Hydroxide 2,400 Mg/10 Ml Cup PO Q48H PRN Constipation Melatonin 6 mg 11/12/20 21:00 11/12/20 20:35 Melatonin 3 Mg Tablet PO 6 mg HS [facility] Administration Metoprolol Tartrate 25 mg 11/12/20 09:00 11/13/20 08:57 Metoprolol Tartrate 25 Mg Tab PO 25 mg BID JLUIS Administration Miscellaneous Information 0 each 11/11/20 22:48 Vancomycin Iv Per Pharmacy 1 Each Misc MISCELLANE DIRECTED PRN PER PROTOCOL Naloxone HCl 0.2 mg 11/11/20 17:44 Naloxone 0.4 Mg/Ml 1 Ml Vial IV Q2M PRN Opioid Reversal Ondansetron HCl 4 mg 11/13/20 07:19 11/13/20 09:52 Ondansetron 4 Mg Tab PO 4 mg Q8HR PRN Administration Nausea And Vomiting Oxymetazoline HCl 1 spray 11/11/20 21:51 Oxymetazoline 0.05% Nasl [place] 1 [place] Bottle EA NOSTRIL Q12H PRN stuffy nose Pantoprazole Sodium 40 mg 11/12/20 10:45 11/13/20 08:57 Pantoprazole 40 Mg/10 Ml Vial IVP 40 mg DAILY JLIUS Administration Polyethylene Glycol 17 gm 11/12/20 09:00 11/13/20 09:55 Polyethylene Glycol 3350 17 Gm Powd.Pack PO Not Given DAILY JLUIS Triamcinolone Acetonide 1 applic 11/12/20 21:00 11/13/20 08:56 Triamcinolone Acet 0.5% Cream 15 Gm Tube TOPICAL 1 applic BID JLUIS Administration Protocol Intake and Output 11/12/20 11/13/20 11/13/20 22:59 06:59 14:59 Intake Total 357 320 120 Output Total 1181 Balance -824 320 120 Intake: IV 80 80 20 0.9 KVO 80 80 20 Oral 240 100 Blood Product 277 Rc Pheresis 2 As3 Unit 277 [id number] Output: Urine 0 Hemodialysis 1181 Other: Weight 97.9 kg 11/13/20 03:57 11/13/20 03:57
--- NOTE | 2020-11-13 11:52 | P.PN ---
Subjective Progress Note Date: 11/13/20 Patient was seen for a follow-up. Patient is doing better. He states that he is not feeling as great, as he just passed out. He is getting hemodialysis now. The dialysis nurse reported that when she came in, he was snoring. She tried sternal rub and it took 1 minute for him to come around. His heart rate was in the 50s. Blood pressure was 129/70. I think he was just sleeping. He denies any history of seizures. Objective - Vital Signs Vital signs: Vital Signs Temp 97.5 F L 11/13/20 08:00 Pulse 67 11/13/20 10:00 Resp 14 11/13/20 10:00 BP 114/52 11/13/20 10:00 Pulse Ox 100 11/13/20 10:00 Intake & Output 11/12/20 11/13/20 11/13/20 18:59 06:59 18:59 Intake Total 637 360 120 Output Total 1181 0 Balance -544 360 120 Weight 97.9 kg Intake: IV 50 120 20 0.9 KVO 50 120 20 Oral 240 100 Blood Product 587 Rc As-1 Unit 310 [id number] Rc Pheresis 2 As3 Unit 277 [id number] Output: Urine 0 0 Hemodialysis 1181 - Exam Patient is somnolent, but wakes up and answers appropriately. He knows it is October and the year is 2020 and that he is in [facility]. Speech and language functions are normal. No aphasia or dysarthria. 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 His visual justice are full on the left. Face is symmetric. Tongue protrudes the midline. Muscle strength is normal in the right arm. Left livestock inspector is normal. Patient is getting hemodialysis, therefore proximal left upper limb not checked. Hip flexion is 2-3 bilaterally. Ankle dorsiflexion 3+ bilaterally. Plantar flexion 5 on the right, 4 left. Reflexes are trace in the upper limbs, absent in the lower limbs. - Labs CBC & Chem 7: 11/13/20 03:57 11/13/20 03:57 Labs: Abnormal Lab Results - Last 24 Hours (Table) 11/12/20 11/12/20 11/12/20 Range/Units 08:51 10:46 11:14 WBC (3.8-10.6) k/uL RBC (4.30-5.90) m/uL Hgb (13.0-17.5) gm/dL Hct (39.0-53.0) % RDW (11.5-15.5) % Plt Count (150-450) k/uL Lymphocytes # (1.0-4.8) k/uL Carbon Dioxide (22-30) mmol/L BUN (9-20) mg/dL Creatinine (0.66-1.25) mg/dL Glucose (74-99) mg/dL POC Glucose (mg/dL) 174 H (75-99) mg/dL Ferritin 737.1 H (22.0-322.0) ng/mL Creatine Kinase (55-170) U/L Crossmatch See Detail 11/12/20 11/12/20 11/12/20 Range/Units 18:55 20:00 20:00 WBC 11.0 H (3.8-10.6) k/uL RBC 2.68 L (4.30-5.90) m/uL Hgb 8.8 L D (13.0-17.5) gm/dL Hct 24.7 L (39.0-53.0) % RDW 16.0 H (11.5-15.5) % Plt Count 130 L (150-450) k/uL Lymphocytes # (1.0-4.8) k/uL Carbon Dioxide 20 L (22-30) mmol/L BUN 90 H (9-20) mg/dL Creatinine 3.92 H (0.66-1.25) mg/dL Glucose 160 H (74-99) mg/dL POC Glucose (mg/dL) (75-99) mg/dL Ferritin (22.0-322.0) ng/mL Creatine Kinase 180 H (55-170) U/L Crossmatch 11/13/20 11/13/20 Range/Units 03:57 03:57 WBC (3.8-10.6) k/uL RBC 2.52 L (4.30-5.90) m/uL Hgb 8.1 L (13.0-17.5) gm/dL Hct 24.5 L (39.0-53.0) % RDW 15.7 H (11.5-15.5) % Plt Count (150-450) k/uL Lymphocytes # 0.6 L (1.0-4.8) k/uL Carbon Dioxide 19 L (22-30) mmol/L BUN 96 H (9-20) mg/dL Creatinine 4.28 H (0.66-1.25) mg/dL Glucose 127 H (74-99) mg/dL POC Glucose (mg/dL) (75-99) mg/dL Ferritin (22.0-322.0) ng/mL Creatine Kinase (55-170) U/L Crossmatch Assessment and Plan Assessment: * Altered mental status due to toxic metabolic encephalopathy, cause is multifactorial. Patient missed dialysis. Mentation is slightly better today. * Acute GI bleed with drop in hemoglobin and anemia * End-stage renal disease on hemodialysis * Fluid retention, anasarca * B12 deficiency with borderline B12 274 * Bilateral lower extremity weakness, possibly due to previous history of paraspinal abscess, possible ?neuropathy. * History of endocarditis * CHF * History of atrial fibrillation on Eliquis * Hypertension * Diabetes, controlled. Plan: * Patient probably has toxic metabolic encephalopathy due to multiple medical conditions as mentioned above. Patient's encephalopathy is much improved. * Patient has atrial fibrillation, but currently Eliquis is on hold since this morning because of GI bleed. Hemoglobin was 6.8. GI following, for possible EGD and colonoscopy on Wednesday. * Patient has bilateral lower extremity weakness, which could be related to peripheral neuropathy. Workup has revealed mild B12 deficiency. We will start B12 replacement. We will check methylmalonic acid, B6, acetylcholine receptor antibodies, CK. * Patient had MRI of the cervical, lumbar and thoracic spine without contrast on 09/24/2020, in which assessment of the spine is largely nondiagnostic. Generalized anasarca. Unable to exclude abnormality at the C1 dens articulation with fluid signal in the predental , possible prevertebral soft tissue swelling/edema and possible pannus and/or erosive changes involving portion of the dens. Infectious etiology not excluded. 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 Patient's leg weakness could be residual effect of the previous paraspinal abscess. ID following. * 2-D echo from 11/12/2020 shows moderate concentric LVH, EF is mildly impaired 45-50%. Paradoxical/dyssynergy septal motion consistent with right ventricular volume overload. Moderate aortic stenosis. Moderate MR. * We will follow clinically.
[2020-11-13] MEDS: ALPRAZolam 0.25 MG TAB PO PRN (12:32)
[2020-11-13] MEDS: BUTALB/APAP/CAFF 50-325-40MG TAB PO PRN ×2 (12:36→21:29)
--- NOTE | 2020-11-13 13:04 | PN ---
PROGRESS NOTE Patient is seen for followup for end-stage renal disease. He is currently seen on dialysis. Patient's blood pressure is around 119 to 115 mmHg. He did get a dose of midodrine so that we will be able to dialyze him comfortably. Yesterday patient had about 1.1 L of ultrafiltration with dialysis. His blood pressure had been low. Examination shows edema 2+ bilaterally in the lower extremities. Abdomen is soft, obese, nontender. Patient is arousable. He is alert and oriented x3, but goes back to sleep. Labs show sodium 137, potassium 4.5. CO2 is 19, BUN 96, creatinine 4.28, hemoglobin 8.1 g/dL. ASSESSMENT: 1. End-stage renal disease, on hemodialysis on a Wednesday, , Wednesday schedule, currently receiving daily treatments for significantly elevated BUN and creatinine and some degree of uremia. 2. Gastrointestinal bleed. No further active bleeding noted status post DDAVP yesterday with plans for possible EGD on Wednesday. 3. Anemia, multifactorial, including gastrointestinal bleed and anemia of chronic disease, maintained on Aranesp, status post one unit packed RBCs transfusion. 4. Chronic kidney disease mineral bone disorder. 5. History of MRSA bacteremia and endocarditis as well as lumbar spine osteomyelitis. 6. Encephalopathy, somewhat improved, possibly related to medications as well as an element of uremia. Will continue aggressive dialysis. 7. Volume overload. We were not able to get much fluid off with dialysis. I will try today. Patient will be given midodrine. However, at this time we will try to at least perform his dialysis if we are not able to get significant ultrafiltration. MMODL / IJN: [id number] /
[2020-11-13 13:25] LABS: Glucose,Whole Blood 168 mg/dL (75-99)
--- NOTE | 2020-11-13 15:00 | P.PN ---
Subjective Progress Note Date: 11/13/20 Principal diagnosis: GI bleed 60-year-old male who presented to the emergency department with altered mental status was admitted to the ICU. He subsequently was found to be anemic and had reported a bloody bowel movement. He has had no further bloody bowel movements and 2 days. Nursing is reporting that he is having dark tarry smears. Patient does report having black stools for the last 1-2 months. He is status post 2 units of PRBC transfusion with a repeat hemoglobin today of 8.1. He today he is seen and evaluated sitting up at the bedside he is again receiving hemodialysis. He is more awake and alert today. Denies any abdominal pain, nausea, or vomiting. Discussed with patient would like to proceed with EGD on Wednesday. Patient is agreeable. Objective - Vital Signs Vital signs: Vital Signs Temp 98.4 F 11/13/20 04:00 Pulse 70 11/13/20 07:21 Resp 17 11/13/20 07:00 BP 122/55 11/13/20 07:00 Pulse Ox 97 11/13/20 07:00 Intake & Output 11/12/20 11/13/20 11/13/20 18:59 06:59 18:59 Intake Total 637 360 10 Output Total 1181 0 Balance -544 360 10 Weight 97.9 kg Intake: IV 50 120 10 0.9 KVO 50 120 10 Oral 240 Blood Product 587 Rc As-1 Unit 310 [id number] Rc Pheresis 2 As3 Unit 277 [id number] Output: Urine 0 0 Hemodialysis 1181 - Exam General appearance: The patient is alert, oriented, appears in no acute distress. Obese. HET: Head is normocephalic and atraumatic. Conjunctiva pink. Sclera anicteric. Neck: Supple without lymphadenopathy. Abdomen: Soft, obese, nontender, nondistended with bowel sounds. No guarding or rigidity. Extremities: Normal skin color and turgor. No pedal edema Skin: No rashes, no jaundice Neurological: No focal deficits. Alert and oriented 3. - Labs CBC & Chem 7: 11/13/20 03:57 11/13/20 03:57 Labs: Abnormal Lab Results - Last 24 Hours (Table) 11/12/20 11/12/20 11/12/20 Range/Units 08:38 08:51 10:46 WBC (3.8-10.6) k/uL RBC (4.30-5.90) m/uL Hgb (13.0-17.5) gm/dL Hct (39.0-53.0) % RDW (11.5-15.5) % Plt Count (150-450) k/uL Lymphocytes # (1.0-4.8) k/uL Sodium 136 L (137-145) mmol/L Potassium 6.0 H (3.5-5.1) mmol/L Chloride 97 L (98-107) mmol/L Carbon Dioxide 14 L (22-30) mmol/L BUN 157 H* (9-20) mg/dL Creatinine 6.48 H (0.66-1.25) mg/dL Glucose 171 H (74-99) mg/dL POC Glucose (mg/dL) (75-99) mg/dL Magnesium 2.5 H (1.6-2.3) mg/dL Ferritin 737.1 H (22.0-322.0) ng/mL Alkaline Phosphatase 131 H (38-126) U/L Creatine Kinase (55-170) U/L Crossmatch See Detail 11/12/20 11/12/20 11/12/20 Range/Units 11:14 18:55 20:00 WBC 11.0 H (3.8-10.6) k/uL RBC 2.68 L (4.30-5.90) m/uL Hgb 8.8 L D (13.0-17.5) gm/dL Hct 24.7 L (39.0-53.0) % RDW 16.0 H (11.5-15.5) % Plt Count 130 L (150-450) k/uL Lymphocytes # (1.0-4.8) k/uL Sodium (137-145) mmol/L Potassium (3.5-5.1) mmol/L Chloride (98-107) mmol/L Carbon Dioxide 20 L (22-30) mmol/L BUN 90 H (9-20) mg/dL Creatinine 3.92 H (0.66-1.25) mg/dL Glucose 160 H (74-99) mg/dL POC Glucose (mg/dL) 174 H (75-99) mg/dL Magnesium (1.6-2.3) mg/dL Ferritin (22.0-322.0) ng/mL Alkaline Phosphatase (38-126) U/L Creatine Kinase (55-170) U/L Crossmatch 11/12/20 11/13/20 11/13/20 Range/Units 20:00 03:57 03:57 WBC (3.8-10.6) k/uL RBC 2.52 L (4.30-5.90) m/uL Hgb 8.1 L (13.0-17.5) gm/dL Hct 24.5 L (39.0-53.0) % RDW 15.7 H (11.5-15.5) % Plt Count (150-450) k/uL Lymphocytes # 0.6 L (1.0-4.8) k/uL Sodium (137-145) mmol/L Potassium (3.5-5.1) mmol/L Chloride (98-107) mmol/L Carbon Dioxide 19 L (22-30) mmol/L BUN 96 H (9-20) mg/dL Creatinine 4.28 H (0.66-1.25) mg/dL Glucose 127 H (74-99) mg/dL POC Glucose (mg/dL) (75-99) mg/dL Magnesium (1.6-2.3) mg/dL Ferritin (22.0-322.0) ng/mL Alkaline Phosphatase (38-126) U/L Creatine Kinase 180 H (55-170) U/L Crossmatch Assessment and Plan (1) GI bleed Narrative/Plan: 60-year-old male with multiple comorbidities who presented to the emergency department with altered mental status from [facility]. Patient had a drop in his hemoglobin today with reported episode of bloody bowel movement yesterday. He has a history of end-stage renal disease on hemodialysis, coronary artery disease, proximal atrial fibrillation onEliquis with last dose today. Hemoglobin this morning was 6.8, the patient was hypotensive and transferred to the intensive care unit. He is currently undergoing hemodialysis. 1 unit PRBC as ordered. Patient is very drowsy but states that he did have a colonoscopy at the age of 49, no previous EGD. He is unsure if he has a history of ulcers although it is stated in his chart. He denies any NSAID use. Denies abdominal pain, nausea, or vomiting. Patient does state that he has had black stools for quite some time. Patient has been afebrile. We'll hold Eliquis, continue to monitor patient in the ICU and stabilize patient. Unknown etiology of GI bleed, appears more likely to be an upper GI source with possible etiologies include peptic ulcer disease, gastritis, esophagitis, or AVM. However may also need to consider lower GI source as well. Consider EGD and colonoscopy likely on Wed. Patient is reportedly having black tarry stool. This is more consistent with an upper GI bleed. Patient at this time would like to defer colonoscopy as outpatient. Will proceed with EGD on Wednesday. Continue to hold Eliquis. Current Visit: Yes Status: Acute Code(s): K92.2 - GASTROINTESTINAL HEMORRHAGE, UNSPECIFIED SNOMED Code(s): 81568523 (2) Positive occult stool blood test Current Visit: Yes Status: Acute Code(s): R19.5 - OTHER FECAL ABNORMALITIES SNOMED Code(s): 33498206 (3) Altered mental status Current Visit: No Status: Acute Code(s): R41.82 - ALTERED MENTAL STATUS, UNSPECIFIED SNOMED Code(s): 255563025 (4) ESRD on hemodialysis Current Visit: Yes Status: Acute Code(s): N18.6 - END STAGE RENAL DISEASE; Z99.2 - DEPENDENCE ON RENAL DIALYSIS SNOMED Code(s): 170198442 (5) Atrial fibrillation with RVR Current Visit: No Status: Acute Code(s): I48.91 - UNSPECIFIED ATRIAL FIBRILLATION SNOMED Code(s): 597958417657317 Plan: 1. Continue symptomatic and supportive care 2. Continue medical management 3. Hold Eliquis 4. Daily CBC, transfuse for hemoglobin less than 7 5. Protonix 40 mg twice a day 6. Diet as tolerated 7. Discussed with patient with proceeding with EGD Wednesday. The procedure was discussed with the patient in detail including risks and benefits, patient is willing to proceed. Thank you for this consultation, we will continue to follow. Dr. Ramana Storey I agree with the dictator's note, documented as a scribe by Kristine Silver.
--- NOTE | 2020-11-13 16:05 | P.PN ---
Subjective Progress Note Date: 11/13/20 HISTORY OF PRESENT ILLNESS This is a 60-year-old male patient of Dr. Mckeon currently residing at [facility] under the care of Dr. 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 Patient was hospitalized in April 2020 at which time he was treated for sepsis and MRSA bacteremia of unclear etiology with metabolic encephalopathy vasovagal episode requiring brief CPR and patient was transferred to [facility]. Patient was treated for MRSA osteomyelitis of the lumbar spine. Patient had recent hospitalization September 19 and was transferred on September 30 to be [facility] due to sepsis with persistent MRSA bacteremia secondary to mitral valve vegetation, paraspinal abscess of the C1-C2. Patient was sent from [facility] to the emergency department to be evaluated for significant altered mental status confusion mild competitive and bizarre behavior could not keep him awake and could not finish dialysis day early because of the hypotension and severe tiredness. Was seen and evaluated and was sent back to [facility] while he still on the stretcher in [facility] before getting back to his bed patient could not being kept awake had severe change at the time was decided to send him back to the emergency room again. Patient was seen and evaluated the second time found to have mild hypotension severe confusion severe uremia and slightly but worsening anemia. Patient was started on gentle hydration consult nephrology for urgent dialysis patient to be continue his vancomycin for the endocarditis and to be seen infectious disease and cardiology. 11/12: Patient currently had 2 large tarry bowel movements this morning. Hemoglobin came back at 6.8 and he has been ordered for 2 units of packed RBCs. Patient continues to be lethargic. His blood pressure this morning was 77/47 but did recover to 122/77 and he did start hemodialysis this morning. Plan is for removal of 3 L of fluid. Patient has been afebrile, heart rate 72, pulse ox 98% on room air. WBC 10.9, hemoglobin 224. Sodium 136, potassium 6, chloride 97, CO2 14, BUN 157, creatinine 6.48. Blood sugars in the 170s. Magnesium 2.5. Alkaline phosphatase 131. ProBNP 32,200. Stool occult for occult blood was positive. Stool for occult blood was positive. Patient transferred into the intensive care unit and consult added for acid conditioner. 11/13: Patient remains in the intensive care unit. He underwent hemodialysis yesterday had repeat today with no plan for removal of fluid today. The patient's blood pressure was low this morning even after midodrine and patient had a syncopal episode according to his dialysis nurse. Patient is sitting in recliner and mental status is improved today but not back to baseline. He has been afebrile, heart rate 69, blood pressure 122/55, pulse ox 97% on 3 L nasal cannula. Repeat blood work reveals WBC of 8.1, hemoglobin 8.1, platelet count 176. CO2 19 otherwise electrolytes are normal. BUN 96 and creatinine 4.28. Blood sugars are running between 127 and 168. Patient is seen and followed by multiple consultants including neurology for toxic metabolic encephalopathy. He has been seen by cardiology and judie is on hold. GI is following. Plan is for EGD on Wednesday. REVIEW OF SYSTEMS Constitutional: Low-grade fever, no chills, no night sweats. Significant weight gain and fluid retention. Reported weakness, reported fatigue Reported lethargy. Reported daytime sleepiness. EENT: No headache. He has lack of vision in one of his eyes.. No loss of Hearing, no ringing in the ears, no dizziness. No nasal drainage or congestion. No epistaxis. No sore throat. Lungs: Significant shortness of breath mild PND or wheezes. Cardiovascular: Positive fluid retention, PND, orthopnea, lightheadedness and dizziness with no syncope no significant chest pain but significant shortness of breath and dyspnea. Abdominal: Slight abdominal pain with distention and mild nausea no vomiting positive reported tarry stool and significant change in bowel habit. Genitourinary: Doesn't make much urine because of end-stage renal disease no burning or discomfort. Musculoskeletal: Positive myalgia muscle and generalized fatigue. Integumentary: Significant edema and water retention lower extremity with slight discoloration from the knee down. Neurologic: No aphasia. No facial droop. Noted change in mentation. No head injury. No headache. No paralysis. No paresthesia. Psychiatric: Mild depression confusion with no anxiety. Endocrine: Noted abnormal blood sugars. No weight change. PHYSICAL EXAMINATION Gen: This is a 60-year-old male patient resting in bed. He appears to be in no acute distress but confused. HEENT: Head is atraumatic, normocephalic. Pupils equal, round. Sclerae is anicteric. NECK: Supple. No JVD. No lymphadenopathy. No thyromegaly. LUNGS: Decreased expansion bilaterally with fine rhonchi positive mild crackles basis has not spread wheezes. HEART: Regular rate and rhythm. 2/6 systolic murmur with mild tachycardia.. ABDOMEN: Soft positive bowel sounds slight distention with no rebound or rigidity. EXTREMITIES: 1+ pedal edema with slight arthritis slight discoloration from the knee down. NEUROLOGICAL: Patient is sleeping, awakes to verbal stimuli. He is unable to Cranial nerves 2 through 12 are grossly intact. ASSESSMENT AND PLAN 1. Acute toxic metabolic encephalopathy: Multifactorial combination off endocarditis, infection, end-stage renal disease with uremia, possible aspiration pneumonia, fluid overload and CHF, anemia possible GI bleed. 2 Shortness of breath secondary to fluid overload from missed dialysis treatment will consult with nephrology for the urgent need for hemodialysis. 3 acute GI bleed with tarry stool hemoglobin is down to 6.8. Status post transfusion of 2 units of packed RBCs, GI consult appreciated, monitor hemoglobin. EGD scheduled for Wednesday. Hold judie. 4 worsening uremia: Secondary to end-stage renal disease with missing dialysis more often. 5. 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 Patient was transferred to [facility] and return to [facility] to complete 4 week course of IV vancomycin with dialysis. Antibiotic course started on October 19. Consult with Dr. Presley appreciated. 6. Metabolic encephalopathy secondary to uremia, fluid overload, anemia and hypertension, will try to treat underlying disease and evaluated patient patient will be seen neurology as well. 7. Recent treatment for MRSA bacteremia and lumbar spine osteomyelitis, completed course of antibiotics. 8. End-stage renal disease on hemodialysis. Consult with nephrology appreciated. Continue PhosLo 667 mg 3 times daily, Aranesp 40 g subcu every 7 days, hemodialysis. Patient had missed dialysis recently because of hypertension and a change mental status. 9. Degenerative disc disease and spinal stenosis. Continue gabapentin 300 mg at bedtime. Continue baclofen 5 mg every 8 hours as needed. 10. History of coronary artery disease with previous PTCA to LAD and circumflex. Continue aspirin 81 mg daily, atorvastatin 40 mg at bedtime, Lopressor 25 mg twice daily. 11. Paroxysmal atrial fibrillation. Continue eliquis 2.5 mg twice daily-on hold, continue Lopressor, amiodarone 200 mg daily pulse rates under control at this point. 12. Ischemic cardiomyopathy. Continue Lopressor, Lasix 80 mg twice daily, metolazone 5 mg daily. Still removing more fluid with hemodialysis. 13. Diabetes mellitus type 2, insulin requiring. Continue Levemir 5 units at bedtime, add NovoLog scale before meals and at bedtime, 14. Hypertension. Continue hydralazine 75 mg 3 times daily. 15. Anemia of chronic disease. Continue ferrous sulfate 325 mg twice daily. Along with Aranesp 40 g subcu every 7 days. 16. GI prophylaxis. Continue Protonix. 17. DVT prophylaxis. Was on Eliquis which will be held for now. 18. Covid 19 testing: Negative. Patient will be admitted to the hospital for a minimum of 2 night stay. Prognosis: Very guarded. CODE STATUS: DO NOT RESUSCITATE. DISCHARGE PLAN Return to [facility] Impression and plan of care have been directed as dictated by the signing physic ian. Katelyn Wesley nurse practitioner acting as scribe for signing physician. Objective - Vital Signs Vital signs: Vital Signs Temp 97.5 F L 11/13/20 08:00 Pulse 67 11/13/20 10:00 Resp 14 11/13/20 10:00 BP 114/52 11/13/20 10:00 Pulse Ox 100 11/13/20 10:00 Intake & Output 11/12/20 11/13/20 11/13/20 18:59 06:59 18:59 Intake Total 637 360 120 Output Total 1181 0 Balance -544 360 120 Weight 97.9 kg Intake: IV 50 120 20 0.9 KVO 50 120 20 Oral 240 100 Blood Product 587 Rc As-1 Unit 310 [id number] Rc Pheresis 2 As3 Unit 277 [id number] Output: Urine 0 0 Hemodialysis 1181 - Labs CBC & Chem 7: 11/13/20 03:57 11/13/20 03:57 Labs: Abnormal Lab Results - Last 24 Hours (Table) 11/12/20 11/12/20 11/12/20 Range/Units 08:51 10:46 18:55 WBC 11.0 H (3.8-10.6) k/uL RBC 2.68 L (4.30-5.90) m/uL Hgb 8.8 L D (13.0-17.5) gm/dL Hct 24.7 L (39.0-53.0) % RDW 16.0 H (11.5-15.5) % Plt Count 130 L (150-450) k/uL Lymphocytes # (1.0-4.8) k/uL Carbon Dioxide (22-30) mmol/L BUN (9-20) mg/dL Creatinine (0.66-1.25) mg/dL Glucose (74-99) mg/dL Ferritin 737.1 H (22.0-322.0) ng/mL Creatine Kinase (55-170) U/L Crossmatch See Detail 11/12/20 11/12/20 11/13/20 Range/Units 20:00 20:00 03:57 WBC (3.8-10.6) k/uL RBC 2.52 L (4.30-5.90) m/uL Hgb 8.1 L (13.0-17.5) gm/dL Hct 24.5 L (39.0-53.0) % RDW 15.7 H (11.5-15.5) % Plt Count (150-450) k/uL Lymphocytes # 0.6 L (1.0-4.8) k/uL Carbon Dioxide 20 L (22-30) mmol/L BUN 90 H (9-20) mg/dL Creatinine 3.92 H (0.66-1.25) mg/dL Glucose 160 H (74-99) mg/dL Ferritin (22.0-322.0) ng/mL Creatine Kinase 180 H (55-170) U/L Crossmatch 11/13/20 Range/Units 03:57 WBC (3.8-10.6) k/uL RBC (4.30-5.90) m/uL Hgb (13.0-17.5) gm/dL Hct (39.0-53.0) % RDW (11.5-15.5) % Plt Count (150-450) k/uL Lymphocytes # (1.0-4.8) k/uL Carbon Dioxide 19 L (22-30) mmol/L BUN 96 H (9-20) mg/dL Creatinine 4.28 H (0.66-1.25) mg/dL Glucose 127 H (74-99) mg/dL Ferritin (22.0-322.0) ng/mL Creatine Kinase (55-170) U/L Crossmatch
[2020-11-13] MEDS: FERROUS SULFATE 325 MG TAB PO SCH (17:17)
[2020-11-13] MEDS: metOLazone 5 MG TAB PO SCH (17:18)
[2020-11-13] MEDS: FUROSEMIDE 80 MG TAB PO SCH (17:18)
[2020-11-13 17:32] LABS: Glucose,Whole Blood 189 mg/dL (75-99)
[2020-11-13] MEDS: ASPIRIN 81 MG PO SCH (18:02)
[2020-11-13 20:15] LABS: Glucose,Whole Blood 244 mg/dL (75-99)
[2020-11-13] MEDS: GABAPENTIN 300 MG CAP PO SCH (21:21)
[2020-11-13] MEDS: ATORVASTATIN 40 MG TAB PO SCH (21:21)
[2020-11-13] MEDS: SODIUM CHLORIDE 0.9% 1,000 ML IV SCH (21:22)
[2020-11-13] MEDS: MELATONIN 3 MG TABLET PO SCH (21:22)
[2020-11-13] MEDS: INSULIN DETEMIR (LEVEMIR) 100 UNIT/ML SYR SQ SCH (22:35)
--- NOTE | 2020-11-13 22:44 | PN ---
PROGRESS NOTE DATE OF SERVICE: 11/13/2020 REASON FOR FOLLOWUP: Endocarditis and cervical paraspinal abscess. INTERVAL HISTORY: The patient is afebrile. The patient is still complaining of feeling nauseated but no further vomiting or hematemesis has been reported. Denies any chest pain, shortness of breath or cough. No abdominal pain or diarrhea. PHYSICAL EXAMINATION: Blood pressure 119/63, pulse of 58. Temperature 97.8. He is 98% on room air. GENERAL DESCRIPTION: General description is a middle-aged male up in the chair in no distress. RESPIRATORY SYSTEM: Unlabored breathing. Decreased breath sounds at the bases. No wheeze. HEART: S1, S2. Regular rate and rhythm. ABDOMEN: Soft. No tenderness. LABS: Hemoglobin is 8.9, white count 8.1. BUN of 96, creatinine 4.28. DIAGNOSTIC IMPRESSION AND PLAN: Patient with endocarditis and cervical paraspinal abscess, for which the patient was treated at an outside facility, and the patient is currently on IV vancomycin. That will be continued to finish his course of therapy. Will monitor his clinical course closely. Continue supportive care. MMODL / IJN: [id number] /
[2020-11-14] MEDS: BUTALB/APAP/CAFF 50-325-40MG TAB PO PRN (05:01)
[2020-11-14 07:33] LABS: Glucose,Whole Blood 207 mg/dL (75-99)
[2020-11-14] MEDS: polyethylene glycoL 3350 17 GM POWD.PACK PO SCH (09:06)
[2020-11-14] MEDS: IPRATROPIUM-ALBUTEROL 3 ML NEB INHALATION PRN (09:12)
[2020-11-14] MEDS: hydrALAZINE HCL 25 MG TAB PO SCH ×3 (09:20→21:56)
[2020-11-14] MEDS: METOPROLOL TARTRATE 25 MG TAB PO SCH ×2 (09:21→21:28)
[2020-11-14] MEDS: AMIODARONE 200 MG TAB PO SCH (09:21)
[2020-11-14] MEDS: DOCUSATE 100 MG CAP PO SCH ×2 (09:21→21:28)
[2020-11-14] MEDS: ACETAMINOPHEN TAB 325 MG TAB PO PRN ×2 (09:25→21:39)
[2020-11-14] MEDS: PANTOPRAZOLE 40 MG/10 ML VIAL IVP SCH (09:34)
[2020-11-14] MEDS: TRIAMCINOLONE ACET 0.5% CREAM 15 GM TUBE TOPICAL SCH ×2 (09:44→21:33)
[2020-11-14] MEDS: CHOLESTYRAMINE (WITH SUGAR) 4 GM PACKET PO SCH ×2 (09:44→17:15)
[2020-11-14] MEDS: CYANOCOBALAMIN 1,000 MCG/ML 1 ML VIAL IM SCH (09:45)
[2020-11-14 11:39] LABS: Glucose,Whole Blood 224 mg/dL (75-99)
[2020-11-14] MEDS ORDERED: MIDODRINE 5 MG TAB PO STA (12:09)
--- NOTE | 2020-11-14 13:10 | P.PN ---
Subjective Progress Note Date: 11/14/20 HISTORY OF PRESENT ILLNESS This is a 60-year-old male patient of Dr. Mckeon currently residing at [facility] under the care of Dr. 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 Patient was hospitalized in April 2020 at which time he was treated for sepsis and MRSA bacteremia of unclear etiology with metabolic encephalopathy vasovagal episode requiring brief CPR and patient was transferred to [facility]. Patient was treated for MRSA osteomyelitis of the lumbar spine. Patient had recent hospitalization September 19 and was transferred on September 30 to be [facility] due to sepsis with persistent MRSA bacteremia secondary to mitral valve vegetation, paraspinal abscess of the C1-C2. Patient was sent from [facility] to the emergency department to be evaluated for significant altered mental status confusion mild competitive and bizarre behavior could not keep him awake and could not finish dialysis day early because of the hypotension and severe tiredness. Was seen and evaluated and was sent back to [facility] while he still on the stretcher in [facility] before getting back to his bed patient could not being kept awake had severe change at the time was decided to send him back to the emergency room again. Patient was seen and evaluated the second time found to have mild hypotension severe confusion severe uremia and slightly but worsening anemia. Patient was started on gentle hydration consult nephrology for urgent dialysis patient to be continue his vancomycin for the endocarditis and to be seen infectious disease and cardiology. 11/12: Patient currently had 2 large tarry bowel movements this morning. Hemoglobin came back at 6.8 and he has been ordered for 2 units of packed RBCs. Patient continues to be lethargic. His blood pressure this morning was 77/47 but did recover to 122/77 and he did start hemodialysis this morning. Plan is for removal of 3 L of fluid. Patient has been afebrile, heart rate 72, pulse ox 98% on room air. WBC 10.9, hemoglobin 224. Sodium 136, potassium 6, chloride 97, CO2 14, BUN 157, creatinine 6.48. Blood sugars in the 170s. Magnesium 2.5. Alkaline phosphatase 131. ProBNP 32,200. Stool occult for occult blood was positive. Stool for occult blood was positive. Patient transferred into the intensive care unit and consult added for child and adolescent psychologist. 11/13: Patient remains in the intensive care unit. He underwent hemodialysis yesterday had repeat today with no plan for removal of fluid today. The patient's blood pressure was low this morning even after midodrine and patient had a syncopal episode according to his dialysis nurse. Patient is sitting in recliner and mental status is improved today but not back to baseline. He has been afebrile, heart rate 69, blood pressure 122/55, pulse ox 97% on 3 L nasal cannula. Repeat blood work reveals WBC of 8.1, hemoglobin 8.1, platelet count 176. CO2 19 otherwise electrolytes are normal. BUN 96 and creatinine 4.28. Blood sugars are running between 127 and 168. Patient is seen and followed by multiple consultants including neurology for toxic metabolic encephalopathy. He has been seen by cardiology and judie is on hold. GI is following. Plan is for EGD on Wednesday. 11/14: Patient is seen today on the MedSurg floor, he sitting on edge of the bed leaning on his bedside table, mental status is significantly improved. He states that he is not receiving dialysis today. He is scheduled for EGD tomorrow afternoon. Patient states that he is feeling better today he is having diarrhea for which Pooja added. Patient is afebrile, heart rate 59, blood pressure 84/51, pulse ox 95% on room air. Capillary blood glucose running between 107 and 244. Repeat blood work will be ordered for tomorrow. He is continued on vancomycin, pharmacy dosing for endocarditis. We'll plan for possible discharge back to [facility] tomorrow after EGD tomorrow. REVIEW OF SYSTEMS Constitutional: Low-grade fever, no chills, no night sweats. Significant weight gain and fluid retention. Reported weakness, reported fatigue Reported lethargy. Reported daytime sleepiness. EENT: No headache. He has lack of vision in one of his eyes.. No loss of Hearing, no ringing in the ears, no dizziness. No nasal drainage or congestion. No epistaxis. No sore throat. Lungs: Significant shortness of breath mild PND or wheezes. Cardiovascular: Positive fluid retention, PND, orthopnea, lightheadedness and dizziness with no syncope no significant chest pain but significant shortness of breath and dyspnea. Abdominal: Slight abdominal pain with distention and mild nausea no vomiting positive reported tarry stool and significant change in bowel habit. Genitourinary: Doesn't make much urine because of end-stage renal disease no burning or discomfort. Musculoskeletal: Positive myalgia muscle and generalized fatigue. Integumentary: Significant edema and water retention lower extremity with slight discoloration from the knee down. Neurologic: No aphasia. No facial droop. Back to baseline mentation. No head injury. No headache. No paralysis. No paresthesia. Psychiatric: Mild depression confusion with no anxiety. Endocrine: Noted abnormal blood sugars. No weight change. PHYSICAL EXAMINATION Gen: This is a 60-year-old male patient resting on the side of the bed. He appears to be in no acute distress. He appears fatigued. HEENT: Head is atraumatic, normocephalic. Pupils equal, round. Sclerae is anicteric. NECK: Supple. No JVD. No lymphadenopathy. No thyromegaly. LUNGS: Decreased expansion bilaterally with fine rhonchi positive mild crackles basis has not spread wheezes. HEART: Regular rate and rhythm. 2/6 systolic murmur with mild tachycardia.. ABDOMEN: Soft positive bowel sounds slight distention with no rebound or rigidity. EXTREMITIES: 1+ pedal edema with slight arthritis slight discoloration from the knee down. NEUROLOGICAL: Patient is awake alert and oriented 3. Cranial nerves 2 through 12 are grossly intact. ASSESSMENT AND PLAN 1. Acute toxic metabolic encephalopathy: Multifactorial combination of endocarditis, infection, end-stage renal disease with uremia, fluid overload and CHF, anemia possible GI bleed. 2 Shortness of breath secondary to fluid overload from missed dialysis treatment will consult with nephrology appreciated, continue hemodialysis. 3 acute GI bleed with tarry stool hemoglobin is down to 6.8. Status post tr ansfusion of 2 units of packed RBCs, GI consult appreciated, monitor hemoglobin. EGD scheduled for Wednesday. Hold eliquis. 4 worsening uremia: Secondary to end-stage renal disease with missing dialysis more often. 5. 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 Patient was transferred to [facility] and return to [facility] to complete 4 week course of IV vancomycin with dialysis. Antibiotic course started on October 19. Consult with Dr. Presley appreciated. 6. Metabolic encephalopathy secondary to uremia, fluid overload, anemia and hypertension, will try to treat underlying disease and evaluated patient patient will be seen neurology as well. 7. Recent treatment for MRSA bacteremia and lumbar spine osteomyelitis, completed course of antibiotics. 8. End-stage renal disease on hemodialysis. Consult with nephrology appreciated. Continue PhosLo 667 mg 3 times daily, Aranesp 40 g subcu every 7 days, hemodialysis. Patient had missed dialysis recently because of hypertension and a change mental status. 9. Degenerative disc disease and spinal stenosis. Continue gabapentin 300 mg at bedtime. Continue baclofen 5 mg every 8 hours as needed. 10. History of coronary artery disease with previous PTCA to LAD and circumflex. Continue aspirin 81 mg daily, atorvastatin 40 mg at bedtime, Lopressor 25 mg twice daily. 11. Paroxysmal atrial fibrillation. Continue eliquis 2.5 mg twice daily-on hold, continue Lopressor, amiodarone 200 mg daily pulse rates under control at this point. 12. Ischemic cardiomyopathy. Continue Lopressor, Lasix 80 mg twice daily, metolazone 5 mg daily. 13. Diabetes mellitus type 2, insulin requiring. Continue Levemir 5 units at bedtime, add NovoLog scale before meals and at bedtime, 14. Hypertension. Continue hydralazine 75 mg 3 times daily. 15. Anemia of chronic disease. Continue ferrous sulfate 325 mg twice daily. Along with Aranesp 40 g subcu every 7 days. 16. GI prophylaxis. Continue Protonix. 17. DVT prophylaxis. Was on Eliquis which will be held for now. 18. Covid 19 testing: Negative. Patient will be admitted to the hospital for a minimum of 2 night stay. Prognosis: guarded. CODE STATUS: DO NOT RESUSCITATE. DISCHARGE PLAN Return to [facility] Impression and plan of care have been directed as dictated by the signing physician. Katelyn Wesley nurse practitioner acting as scribe for signing physician. Objective - Vital Signs Vital signs: Vital Signs Temp 97.8 F 11/14/20 08:00 Pulse 61 11/14/20 09:51 Resp 16 11/14/20 09:51 BP 103/63 11/14/20 08:00 Pulse Ox 95 11/14/20 09:12 Intake & Output 11/13/20 11/14/20 11/14/20 18:59 06:59 18:59 Intake Total 220 100 Output Total 0 0 0 Balance 220 0 100 Intake: IV 120 0.9 KVO 120 Oral 100 100 Output: Urine 0 0 0 Other: # Voids 0 0 # Bowel Movements 0 0 - Labs CBC & Chem 7: 11/13/20 03:57 11/13/20 03:57 Labs: Abnormal Lab Results - Last 24 Hours (Table) 11/13/20 11/13/20 11/13/20 Range/Units 13:23 17:31 20:13 POC Glucose (mg/dL) 168 H 189 H 244 H (75-99) mg/dL 11/14/20 Range/Units 07:32 POC Glucose (mg/dL) 207 H (75-99) mg/dL
[2020-11-14] MEDS: BACLOFEN 10 MG TAB PO PRN (13:12)
--- NOTE | 2020-11-14 13:27 | PN ---
PROGRESS NOTE Patient is seen for followup for end-stage renal disease. He was admitted with mental status changes. He did have an element of uremia with significantly elevated BUN and creatinine. His mentation has improved post dialysis. The patient had two consecutive treatments. His blood pressure had been on the lower side yesterday and therefore we did not have much ultrafiltration. Today I see his pressure was initially high and then repeat pressure was 103/63. The patient denies any chest pains or shortness of breath. This morning his mentation appears to be normal. He denies any significant nausea, vomiting or diarrhea. PHYSICAL EXAMINATION: On examination today, blood pressure 103/63, heart rate 100 per minute. He is afebrile. EXAMINATION OF THE HEART: S1 and S2. EXAMINATION OF LUNGS: Bilateral breath sounds are heard. Decreased breath sounds at the bases. ABDOMEN: Soft, nontender, obese. LOWER EXTREMITIES: Examination of lower extremities shows edema 2+ bilaterally. ASSEMBLER FINAL EXAM: ASSEMBLER FINAL exam shows patient moving all 4 extremities. LABS: Labs on 11/13 showed sodium 137, potassium 4.5, serum creatinine 4.28, BUN 96. ASSESSMENT: 1. End-stage renal disease, on hemodialysis on a Wednesday, , Wednesday schedule as outpatient. The patient was admitted with mental status changes. He did not have his full treatment the week before his admission and his BUN and creatinine were significantly elevated. He has had consecutive treatments and his blood pressure and his mentation are improved along with improvement in his chemistry. 2. Mental status changes, possibly related to medications as well as some degree of uremia. Will maintain patient on aggressive dialysis inpatient as well as outpatient. Today the patient's blood pressure is on the lower side. We may hold off on treatment today if his blood pressure remains low. 3. Anemia of chronic disease. 4. History of MRSA bacteremia from lumbar spine osteomyelitis and history of endocarditis as well. 5. Chronic kidney disease mineral bone disorder. 6. History of fluid abuse and fluid overload. PLAN: Hemodialysis today if blood pressure is not significantly low. Otherwise, we will plan for a treatment tomorrow. Patient will need aggressive dialysis as outpatient as well. This will be communicated to the unit. He is advised again regarding fluid restriction. MMODL / IJN: [id number] /
--- NOTE | 2020-11-14 14:34 | P.PN ---
Subjective Progress Note Date: 11/14/20 Principal diagnosis: GI bleed 60-year-old male who presented to the emergency department with altered mental status was admitted to the ICU. He subsequently was found to be anemic and had reported a bloody bowel movement. He has had no further bloody bowel movements and 2 days. Patient does report having black stools for the last 1-2 months. He is status post 2 units of PRBC transfusion with a repeat hemoglobin of 8.1. He today he is seen and evaluated sitting up at the bedsidesitting up. He is alert and oriented 3. He states he did have some dry heaves this morning, denies any abdominal pain. No bowel movement today. Discuss patient will be nothing by mouth after midnight. Plan is for EGD tomorrow Objective - Vital Signs Vital signs: Vital Signs Temp 97.8 F 11/14/20 08:00 Pulse 61 11/14/20 08:00 Resp 18 11/14/20 08:00 BP 103/63 11/14/20 08:00 Pulse Ox 94 L 11/14/20 08:00 Intake & Output 11/13/20 11/14/20 11/14/20 18:59 06:59 18:59 Intake Total 220 Output Total 0 0 Balance 220 0 Intake: IV 120 0.9 KVO 120 Oral 100 Output: Urine 0 0 Other: # Voids 0 # Bowel Movements 0 - Exam General appearance: The patient is alert, oriented, appears in no acute distress. Obese. HET: Head is normocephalic and atraumatic. Conjunctiva pink. Sclera anicteric. Neck: Supple without lymphadenopathy. Abdomen: Soft, obese, nontender, nondistended with bowel sounds. No guarding or rigidity. Extremities: Normal skin color and turgor. No pedal edema Skin: No rashes, no jaundice Neurological: No focal deficits. Alert and oriented 3. - Labs CBC & Chem 7: 11/13/20 03:57 11/13/20 03:57 Labs: Abnormal Lab Results - Last 24 Hours (Table) 11/13/20 11/13/20 11/13/20 Range/Units 13:23 17:31 20:13 POC Glucose (mg/dL) 168 H 189 H 244 H (75-99) mg/dL 11/14/20 Range/Units 07:32 POC Glucose (mg/dL) 207 H (75-99) mg/dL Assessment and Plan (1) GI bleed Narrative/Plan: 60-year-old male with multiple comorbidities who presented to the emergency department with altered mental status from [facility]. Patient had a drop in his hemoglobin today with reported episode of bloody bowel movement yesterday. He has a history of end-stage renal disease on hemodialysis, coronary artery disease, proximal atrial fibrillation onEliquis with last dose today. Hemoglobin this morning was 6.8, the patient was hypotensive and transferred to the intensive care unit. He is currently undergoing hemodialysis. 1 unit PRBC as ordered. Patient is very drowsy but states that he did have a colonoscopy at the age of 49, no previous EGD. He is unsure if he has a history of ulcers although it is stated in his chart. He denies any NSAID use. Denies abdominal pain, nausea, or vomiting. Patient does state that he has had black stools for quite some time. Patient has been afebrile. We'll hold Eliquis, continue to monitor patient in the ICU and stabilize patient. Unknown etiology of GI bleed, appears more likely to be an upper GI source with possible etiologies include peptic ulcer disease, gastritis, esophagitis, or AVM. However may also need to consider lower GI source as well. Consider EGD and colonoscopy likely on Wednesday. Patient is reportedly having black tarry stool. This is more consistent with an upper GI bleed. Patient at this time would like to defer colonoscopy as outpat ient. Will proceed with EGD on Wednesday. Continue to hold Eliquis. Current Visit: Yes Status: Acute Code(s): K92.2 - GASTROINTESTINAL HEMORRHAGE, UNSPECIFIED SNOMED Code(s): 37740308 (2) Positive occult stool blood test Current Visit: Yes Status: Acute Code(s): R19.5 - OTHER FECAL ABNORMALITIES SNOMED Code(s): 84543953 (3) Altered mental status Current Visit: No Status: Acute Code(s): R41.82 - ALTERED MENTAL STATUS, UNSPECIFIED SNOMED Code(s): 490711632 (4) ESRD on hemodialysis Current Visit: Yes Status: Acute Code(s): N18.6 - END STAGE RENAL DISEASE; Z99.2 - DEPENDENCE ON RENAL DIALYSIS SNOMED Code(s): 185787249 (5) Atrial fibrillation with RVR Current Visit: No Status: Acute Code(s): I48.91 - UNSPECIFIED ATRIAL FI BRILLATION SNOMED Code(s): 905566306579443 Plan: 1. Continue symptomatic and supportive care 2. Continue medical management 3. Hold Eliquis 4. Daily CBC, transfuse for hemoglobin less than 7 5. Protonix 40 mg twice a day 6. Nothing by mouth after midnight 7. Discussed with patient with proceeding with EGD Wednesday. The procedure was d iscussed with the patient in detail including risks and benefits, patient is willing to proceed. Thank you for this consultation, we will continue to follow. Dr. Ramana Storey I agree with the dictator's note, documented as a scribe by Kristine Silver.
--- NOTE | 2020-11-14 15:21 | P.PN ---
Subjective Progress Note Date: 11/14/20 60-year-old male, who was seen in the emergency department, on November 11. He was seen by one of the ER physicians. The patient does have a history of end- stage renal disease, and presented to the emergency department with lethargy, and vomiting. The patient apparently came from [facility]. The patient was recently discharged from this hospital on October 30. He apparently is been at [facility] since. His clinical appearance was poor, and they felt uncomfortable and they sent him here to be evaluated. The patient was admitted to room 477. Apparently last night, the patient was having issues of tarry stools and maroon stools, and the patient apparently was also hypotensive. The patient had apparently missed dialysis this past Wednesday. Anyway, the patient was transferred to the intensive care unit is now in room 262. The patient is currently undergoing hemodialysis. In addition, the hemoglobin was found to be 6.8, and 2 units of blood was ordered. He apparently may have a colonoscopy tomorrow, November 13. His heart rate is 75, his saturations on 2 L or 99%, and his blood pressure is 110/65. We will get a chest x-ray. White count 10.9, hemoglobin 6.8, hematocrit 21.2, and platelet count 224,000. Sodium 136, potassium 6, chlorides 97, CO2 14, anion gap 25, and BUN and creatinine are 157 and 6.48. The N-terminal proBNP was 32,200. His coronavirus testing was negative. No chest x-ray had yet been done. The patient was seen by our group last in March. This is right around mid March at which time the patient apparently had a brief episode of cardiopulmonary arrest. The patient was resuscitated. We have not seen him since that admission. Progress note dated 11/13/2020. This is a 60-year-old male that was seen yesterday in consultation. He was initially seen in the emergency department on November 11. The patient has history of end-stage renal disease, currently on 3 time a week hemodialysis. The patient was sent in from [facility] [place] [facility] because of lethargy and vomiting. Here, he was found to have some gastrointestinal bleeding. The patient was transferred to the intensive care unit for further monitoring and treatment. Currently, he is much more awake and alert. He is on 3 L nasal cannula. He is getting saline at 10 mL an hour. He did have hemodialysis yesterday. As of yesterday, he was scheduled to have a colonoscopy today. That has not yet been done. He was seen by gastroenterology team yesterday. White count 8.1, hemoglobin 8.1, hematocrit 24.5, and platelet count 176,000. Sodium 137, potassium 4.5, chlorides 99, CO2 19, anion gap 19, BUN 96, and creatinine 4.28. The patient did receive 2 units of blood yesterday. Chest x-ray shows either an infiltrate/atelectasis,/pleural effusion, left lower lobe. The patient is seen today 11/14/2020 in follow-up on the regular medical floor. He is currently resting comfortably in bed. Awake and alert in no acute distress. Continue O2 saturations in the 90s on room air now. Blood glucose 224. He remains on vancomycin. Remains on bronchodilators. Continue with hemodialysis. Objective - Vital Signs Vital signs: Vital Signs Temp 97.4 F L 11/14/20 14:00 Pulse 56 L 11/14/20 14:00 Resp 16 11/14/20 14:00 BP 94/51 11/14/20 14:00 Pulse Ox 99 11/14/20 14:00 Intake & Output 11/13/20 11/14/20 11/14/20 18:59 06:59 18:59 Intake Total 220 300 Output Total 0 0 0 Balance 220 0 300 Intake: IV 120 0.9 KVO 120 Oral 100 300 Output: Urine 0 0 0 Other: # Voids 0 0 # Bowel Movements 0 0 - Exam No acute distress, sleepy and lethargic, but does arouse. Currently on room air with saturations 99%. HEENT examination is grossly unremarkable. Neck supple. Full range of motion. No adenopathy thyromegaly or neck vein distention. Cardiovascular examination reveals regular rhythm rate. S1-S2 normal. No S3 or S4. No discernible murmur noted. Heart sounds distant. Heart rate 56 bpm. Lungs reveal mostly clear breath sounds. Scattered rhonchi are noted. No wheezes or crackles. Breath sounds equal bilaterally. Abdomen soft bowel sounds are heard. No masses or tenderness. Extremities reveal 2+ pitting edema. There is also some chronic venous stasis changes. No cyanosis or clubbing. Skin is without rash or lesion. Neurologic examination reveals a awake and alert male. - Labs CBC & Chem 7: 11/13/20 03:57 11/13/20 03:57 Labs: Abnormal Lab Results - Last 24 Hours (Table) 11/13/20 11/13/20 11/14/20 Range/Units 17:31 20:13 07:32 POC Glucose (mg/dL) 189 H 244 H 207 H (75-99) mg/dL 11/14/20 Range/Units 11:35 POC Glucose (mg/dL) 224 H (75-99) mg/dL Assessment and Plan Assessment: Acute on chronic anemia, to receive 2 units of PRBCs. End-stage renal disease, currently on 3 time a week hemodialysis. Episode in March of this year, of cardiopulmonary arrest, with brief cardiopulmonary resuscitation and return of spontaneous circulation. History of atrial fibrillation. History of CAD, status post stent placement. History of CHF. History of diabetes mellitus. Gastroesophageal reflux disease. History of deafness. History of hyperlipidemia. History of hypertension. Her history of myocardial infarction. History of syncope. History of gout. Multiple other medical problems and comorbidities. Plan: The patient was seen and evaluated by Dr. Nixon Currently stable from the pulmonary standpoint and on room air We'll follow as needed I, the cosigning physician, performed a history & physical examination of the patient. Lungs sounds with few scattered rhonchi. Maintaining good O2 saturations in the 90s on room air. I discussed the assessment and plan of care with my nurse practitioner, Monica North. I attest to the above note as dictated by her.
--- NOTE | 2020-11-14 15:25 | PN ---
PROGRESS NOTE DATE OF SERVICE: 11/14/2020 REASON FOR FOLLOWUP: MRSA endocarditis and paraspinal abscess. INTERVAL HISTORY: The patient is afebrile. Does complain of nausea but no vomiting. Denies any chest pain, shortness of breath, cough. No abdominal pain, no diarrhea. PHYSICAL EXAMINATION: Blood pressure is 84/51, pulse of 59, temperature is 97.7. He is 95% on room air. General description is a middle-aged male up in the bed in no distress. Respiratory system: Unlabored breathing, clear to auscultation. Heart S1, S2. Regular rate and rhythm. Abdomen soft, no tenderness. LABS: No new labs have been obtained today. DIAGNOSTIC IMPRESSION AND PLAN: Patient with mitral wall endocarditis and cervical paraspinal abscess for which the patient is currently getting vancomycin, continue while monitoring his clinical course closely. Continue supportive care. MMODL / BISIN: [id number] /
[2020-11-14 16:47] LABS: Glucose,Whole Blood 239 mg/dL (75-99)
[2020-11-14] MEDS: SODIUM CHLORIDE 0.9% 1,000 ML IV SCH (17:02)
[2020-11-14] MEDS: ASPIRIN 81 MG PO SCH (17:13)
[2020-11-14] MEDS: FERROUS SULFATE 325 MG TAB PO SCH (17:13)
[2020-11-14] MEDS ORDERED: VANCOMYCIN 1,500 MG in SODIUM CHLORIDE 0.9% 250 ML IVPB ONE (18:00)
--- NOTE | 2020-11-14 18:07 | P.PN ---
Subjective Progress Note Date: 11/14/20 Patient was seen for a follow-up. Patient is doing much better. Patient is sitting on the side of the bed. However he states he feels "terrible", due to his blood pressure was low. He complains of headache 10/01, but has been present since March 2020. He gets nauseous. Objective - Vital Signs Vital signs: Vital Signs Temp 97.4 F L 11/14/20 14:00 Pulse 56 L 11/14/20 14:00 Resp 16 11/14/20 14:00 BP 94/51 11/14/20 14:00 Pulse Ox 99 11/14/20 14:00 Intake & Output 11/13/20 11/14/20 11/14/20 18:59 06:59 18:59 Intake Total 220 300 Output Total 0 0 0 Balance 220 0 300 Intake: IV 120 0.9 KVO 120 Oral 100 300 Output: Urine 0 0 0 Other: # Voids 0 0 # Bowel Movements 0 0 - Exam Patient is today fully alert and awake. He is sitting on the side of the bed. He knows it is October and the year is 2020 and that he is in [facility]. Speech and language functions are normal. No aphasia or dysarthria. Spe ech and language functions are normal. Cranial nerve examination again reveals patient keeps his right eye closed. 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 Extraocular muscles appears intact. He is very hard of hearing. Other lower cranial nerves are normal. Patient was able to cooperate with examination much better today. His strength is completely normal in both arms distally and proximally, including detailed testing of the left upper limb. In the lower extremities his hip flexion is 2/2, knee extension 5/5, hip adduction 5/5, hip abduction 5/5, knee extension 5/5, ankle dorsiflexion 5/5, toe extension 2/2. Patient is areflexic. Patient had very significant peripheral edema in the lower extremities from toes up to the knees. Patient appears to have some muscle atrophy of the quadriceps bilaterally. - Labs CBC & Chem 7: 11/13/20 03:57 11/13/20 03:57 Labs: Abnormal Lab Results - Last 24 Hours (Table) 11/13/20 11/14/20 11/14/20 Range/Units 20:13 07:32 11:35 POC Glucose (mg/dL) 244 H 207 H 224 H (75-99) mg/dL 11/14/20 Range/Units 16:46 POC Glucose (mg/dL) 239 H (75-99) mg/dL Assessment and Plan Assessment: * Altered mental status due to toxic metabolic encephalopathy, cause is multifactorial. Patient missed dialysis. Mentation is remarkably better today. * Acute GI bleed with drop in hemoglobin and anemia * End-stage renal disease on hemodialysis * Fluid retention, anasarca * B12 deficiency with borderline B12 274 * Bilateral lower extremity weakness, possibly due to previous history of paraspinal abscess, possible ?neuropathy. * History of endocarditis, currently on vancomycin. * CHF * History of atrial fibrillation on Eliquis * Hypertension * Diabetes, controlled. Plan: * Patient's toxic metabolic encephalopathy has remarkably improved. Patient's muscle strength testing also revealed normal strength in the upper limbs, and significantly improved strength in the lower limbs as mentioned above. * Patient has atrial fibrillation, but currently Eliquis is on hold since this morning because of GI bleed. Hemoglobin was 6.8. GI following, going for EGD and colonoscopy tomorrow. Suggest resuming Apixaban as early as cleared by GI. * Patient has bilateral lower extremity weakness, which could be related to peripheral neuropathy. Workup has revealed mild B12 deficiency. Continue start B12 replacement 1000 g IM daily. Still pending methylmalonic acid, B6, acetylcholine receptor antibodies, CK 180. * Patient had MRI of the cervical, lumbar and thoracic spine without contrast on 09/24/2020, in which assessment of the spine is largely nondiagnostic. Generalized anasarca. Unable to exclude abnormality at the C1 dens articulation with fluid signal in the predental , possible prevertebral soft tissue swelling/edema and possible pannus and/or erosive changes involving portion of the dens. Infectious etiology not excluded. 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 Patient's leg weakness could be residual effect of the previous paraspinal abscess. Per ID patient is on vancomycin. Patient's mentation and strength is much improved. * 2-D echo from 11/12/2020 shows moderate concentric LVH, EF is mildly impaired 45-50%. Paradoxical/dyssynergy septal motion consistent with right ventricular volume overload. Moderate aortic stenosis. Moderate MR. * We will follow clinically.
[2020-11-14 20:32] LABS: Glucose,Whole Blood 286 mg/dL (75-99)
[2020-11-14] MEDS ORDERED: INSULIN ASPART (NovoLOG) 100 UNIT/ML VIAL SQ ONE (21:03)
[2020-11-14] MEDS: LACTATED RINGERS 1,000 ML IV SCH (21:16)
[2020-11-14] MEDS: ATORVASTATIN 40 MG TAB PO SCH (21:28)
[2020-11-14] MEDS: GABAPENTIN 300 MG CAP PO SCH (21:28)
[2020-11-14] MEDS: MELATONIN 3 MG TABLET PO SCH (21:29)
[2020-11-14] MEDS: INSULIN DETEMIR (LEVEMIR) 100 UNIT/ML SYR SQ SCH (21:31)
[2020-11-14] MEDS: INSULIN ASPART (NovoLOG) 100 UNIT/ML VIAL SQ SCH (21:37)
[2020-11-14 23:38] LABS: Glucose,Whole Blood 216 mg/dL (75-99)
[2020-11-14] MEDS: ALPRAZolam 0.25 MG TAB PO PRN (23:46)
[2020-11-15 06:58] LABS: ALT 33 U/L (4-49); AST 25 U/L (17-59); African American GFR (CKD) 14 (>60 ml/min/1.73 sqM); Albumin 3.7 g/dL (3.5-5.0); Albumin/Globulin Ratio 1.5; Alkaline Phosphatase 133 U/L (38-126); Anion Gap 15 mmol/L; Blood Urea Nitrogen 82 mg/dL (9-20); Calcium 9.2 mg/dL (8.4-10.2); Carbon Dioxide 23 mmol/L (22-30); Chloride 97 mmol/L (98-107); Globulin 2.5 g/dL; Glucose 133 mg/dL (74-99); Non-African American GFR(CKD) 12 (>60 ml/min/1.73 sqM); Potassium 4.8 mmol/L (3.5-5.1); Sodium 135 mmol/L (137-145); Total Bilirubin 0.3 mg/dL (0.2-1.3); Total Protein 6.2 g/dL (6.3-8.2)
[2020-11-15 07:01] LABS: Glucose,Whole Blood 134 mg/dL (75-99)
[2020-11-15 07:55] LABS: Methylmalonic Acid 0.74 umol/L (<0.40)
[2020-11-15] MEDS: AMIODARONE 200 MG TAB PO SCH (08:30)
[2020-11-15 09:07] LABS: HCT 24.4 % (39.6-50.0); HGB 7.8 g/dL (13.0-17.0); MCH 30.1 pg (27.0-32.0); MCV 94.2 fL (80.0-97.0); Mean Platelet Volume 10.7 fL (9.5-12.2); Platelet Count 206 X 10*3/uL (140-440); RBC 2.59 X 10*6/uL (4.40-5.60); RDW 15.9 % (11.5-14.5); WBC 8.87 X 10*3/uL (4.50-10.00)
[2020-11-15] MEDS: ALPRAZolam 0.25 MG TAB PO PRN (09:09)
[2020-11-15] MEDS: CHOLESTYRAMINE (WITH SUGAR) 4 GM PACKET PO SCH ×2 (09:10→17:20)
[2020-11-15] MEDS: polyethylene glycoL 3350 17 GM POWD.PACK PO SCH (09:11)
[2020-11-15] MEDS: INSULIN ASPART (NovoLOG) 100 UNIT/ML VIAL SQ SCH ×4 (09:11→21:58)
[2020-11-15] MEDS: hydrALAZINE HCL 25 MG TAB PO SCH ×3 (09:11→21:58)
[2020-11-15] MEDS: PANTOPRAZOLE 40 MG/10 ML VIAL IVP SCH (09:38)
[2020-11-15] MEDS: TRIAMCINOLONE ACET 0.5% CREAM 15 GM TUBE TOPICAL SCH ×2 (09:43→20:56)
[2020-11-15] MEDS: DOCUSATE 100 MG CAP PO SCH ×2 (09:43→20:48)
--- NOTE | 2020-11-15 09:47 | P.DS ---
Providers Date of admission: 11/11/20 17:44 Expected date of discharge: 11/15/20 Attending physician: Perry Christian Consults: 11/11/20 17:51 Consult Physician Routine Consulting Provider: Janine Nguyen Consult Reason/Comments: ESRD Do you want consulting provider notified?: Yes 11/11/20 21:55 Consult Physician Routine Consulting Provider: Tio Presley Consult Reason/Comments: Endocarditis Do you want consulting provider notified?: Yes 11/11/20 21:56 Consult Physician Routine Consulting Provider: Dru Nixon Consult Reason/Comments: altered MS Do you want consulting provider notified?: Yes 11/11/20 21:57 Consult Physician Routine Consulting Provider: Nasim Wills Consult Reason/Comments: CHF and ischemic CMP, Anasarca Do you want consulting provider notified?: Yes 11/12/20 06:17 Consult Physician Routine Consulting Provider: Aisha Storey Consult Reason/Comments: GI Bleed positive occult stool Do you want consulting provider notified?: Already Contacted Primary care physician: Perry Christian [facility] Course: HISTORY OF PRESENT ILLNESS This is a 60-year-old male patient of Dr. Mckeon currently residing at [facility] under the care of Dr. 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 Patient was hospitalized in April 2020 at which time he was treated for sepsis and MRSA bacteremia of unclear etiology with metabolic encephalopathy vasovagal episode requiring brief CPR and patient was transferred to [facility]. Patient was treated for MRSA osteomyelitis of the lumbar spine. Patient had recent hospitalization September 19 and was transferred on September 30 to be [facility] due to sepsis with persistent MRSA bacteremia secondary to mitral valve vegetation, paraspinal abscess of the C1-C2. Patient was sent from [facility] to the emergency department to be evaluated for significant altered mental status confusion mild competitive and bizarre behavior could not keep him awake and could not finish dialysis day early because of the hypotension and severe tiredness. Was seen and evaluated and was sent back to [facility] while he still on the stretcher in [facility] before getting back to his bed patient could not being kept awake had severe change at the time was decided to send him back to the emergency room again. Patient was seen and evaluated the second time found to have mild hypotension severe confusion severe uremia and slightly but worsening anemia. Patient was started on gentle hydr ation consult nephrology for urgent dialysis patient to be continue his vancomycin for the endocarditis and to be seen infectious disease and cardiology. 11/12: Patient currently had 2 large tarry bowel movements this morning. Hemoglobin came back at 6.8 and he has been ordered for 2 units of packed RBCs. Patient continues to be lethargic. His blood pressure this morning was 77/47 but did recover to 122/77 and he did start hemodialysis this morning. Plan is for removal of 3 L of fluid. Patient has been afebrile, heart rate 72, pulse ox 98% on room air. WBC 10.9, hemoglobin 224. Sodium 136, potassium 6, chloride 97, CO2 14, BUN 157, creatinine 6.48. Blood sugars in the 170s. Magnesium 2.5. Alkaline phosphatase 131. ProBNP 32,200. Stool occult for occult blood was positive. Stool for occult blood was positive. Patient transferred into the intensive care unit and consult added for health and fitness professor. 11/13: Patient remains in the intensive care unit. He underwent hemodialysis yesterday had repeat today with no plan for removal of fluid today. The patient's blood pressure was low this morning even after midodrine and patient had a syncopal episode according to his dialysis nurse. Patient is sitting in recliner and mental status is improved today but not back to baseline. He has been afebrile, heart rate 69, blood pressure 122/55, pulse ox 97% on 3 L nasal cannula. Repeat blood work reveals WBC of 8.1, hemoglobin 8.1, platelet count 176. CO2 19 otherwise electrolytes are normal. BUN 96 and creatinine 4.28. Blood sugars are running between 127 and 168. Patient is seen and followed by multiple consultants including neurology for toxic metabolic encephalopathy. He has been seen by cardiology and judie is on hold. GI is following. Plan is for EGD on Wednesday. 11/14: Patient is seen today on the MedSurg floor, he sitting on edge of the bed leaning on his bedside table, mental status is significantly improved. He states that he is not receiving dialysis today. He is scheduled for EGD tomorrow afternoon. Patient states that he is feeling better today he is having diarrhea for which Pooja added. Patient is afebrile, heart rate 59, blood pressure 84/51, pulse ox 95% on room air. Capillary blood glucose running between 107 and 244. Repeat blood work will be ordered for tomorrow. He is continued on vancomycin, pharmacy dosing for endocarditis. We'll plan for possible discharge back to [facility] tomorrow after EGD tomorrow. 11/15: Repeat blood work reveals WBC of 8.8, hemoglobin 7.8, platelet count 206. Sodium 135, potassium 4.8, chloride 97, CO2 23, BUN 82 and creatinine 4.94. Capillary blood glucose running between 133 and 286. Alkaline phosphatase 133. Patient has been afebrile, heart rate 67, blood pressure 108/61, pulse ox 92-98% on room air. Patient is scheduled for EGD today with Dr. Ramana Storey. ASSESSMENT AND PLAN 1. Acute toxic metabolic encephalopathy: Multifactorial combination of endocarditis, infection, end-stage renal disease with uremia, fluid overload and CHF, anemia possible GI bleed. 2. Shortness of breath secondary to fluid overload from missed dialysis treatment. 3. Acute GI bleed with tarry stool hemoglobin is down to 6.8. Status post transfusion of 2 units of packed RBCs. 4. Worsening uremia: Secondary to end-stage renal disease with missing dialysis more often. 5. 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 Patient was transferred to [facility] and return to [facility] to complete 4 week course of IV vancomycin with dialysis. Antibiotic course started on October 19. Consult with Dr. Presley appreciated. 6. Metabolic encephalopathy secondary to uremia, fluid overload, anemia and hypertension. 7. Recent treatment for MRSA bacteremia and lumbar spine osteomyelitis, completed course of antibiotics. 8. End-stage renal disease on hemodialysis. 9. Degenerative disc disease and spinal stenosis. 10. History of coronary artery disease with previous PTCA to LAD and circumflex. 11. Paroxysmal atrial fibrillation. 12. Ischemic cardiomyopathy. 13. Diabetes mellitus type 2, insulin requiring. 14. Hypertension. 15. Anemia of chronic disease. 16. Covid 19 testing: Negative. DISCHARGE PLAN Return to [facility] Impression and plan of care have been directed as dictated by the signing physician. Katelyn Wesley nurse practitioner acting as scribe for signing physician. Patient Condition at Discharge: Fair Plan - Discharge Summary Discharge Rx Participant: No New Discharge Prescriptions: New Cyanocobalamin [Vitamin B-12] 500 mcg PO DAILY #30 tablet Continue Furosemide [Lasix] 80 mg PO BID@0600,1400 INSULIN ASPART (NovoLOG) [NovoLOG (formulary)] See Protocol SQ ACHS Ferrous Sulfate [Iron (65 MG Elemental)] 325 mg PO DAILY@1700 Apixaban [Eliquis] 2.5 mg PO BID@0800,2100 Triamcinolone 0.1% Cream [Kenalog 0.1% Cream] 1 applic TOPICAL BID@0800,1700 Cholestyramine (with Sugar) [Cholestyramine Packet] 4 gm PO BID@0800,1700 Lidocaine 4% Cream [Lmx 4] 1 applic TOPICAL Q4H PRN PRN Reason: Pain Melatonin 6 mg PO HS #30 tablet Aspirin 81 mg PO DAILY@1700 hydrOXYzine HCL 25 mg PO Q8H PRN PRN Reason: Itching Ipratropium-Albuterol Nebulize [Duoneb 0.5 mg-3 mg/3 ml Soln] 3 ml INHALATION RT-Q6H PRN PRN Reason: Wheezing Magnesium Hydroxide [Milk of Magnesia Concentrate] 7,200 mg PO Q48H PRN PRN Reason: Constipation Menthol-Zinc Oxide Oint [Calmoseptine Oint] 1 applic TOPICAL BID Oxymetazoline 0.05% Nasl [place] [Afrin 0.05% Nasal [place]] 1 spray EA NOSTRIL Q12H PRN PRN Reason: stuffy nose Vancomycin HCl in 5 % Dextrose [Vancomycin 1 Gram/250 ml-D5w] 1 gm IV TUTHSA HYDROcodone/APAP 5-325MG [[place] 5-325] 1 tab PO Q4H PRN #18 tab PRN Reason: Pain bisacodyL [Dulcolax] 10 mg RECTAL DAILY PRN PRN Reason: Constipation Insulin Detemir (Levemir) [Levemir] 5 unit SQ HS@2100 Atorvastatin [Lipitor] 40 mg PO HS hydrALAZINE HCL [Apresoline] 75 mg PO TID@0600,1400,2100 Metoprolol Tartrate [Lopressor] 25 mg PO BID@0800,2100 Liquacel 30 ml PO BID@0800,2099 metOLazone [Zaroxolyn] 5 mg PO DAILY@0800 Amiodarone [Cordarone] 200 mg PO DAILY@0800 Baclofen [Lioresal] 5 mg PO Q8H PRN PRN Reason: Muscle Spasm Acetaminophen [Tylenol 8 Hour] 650 mg PO Q4H PRN PRN Reason: general discomfort Mupirocin 2% Oint [Bactroban 2% Oint] 1 applic TOPICAL BID@0800,1700 Docusate [Colace] 100 mg PO BID@0800,1700 Butalb/Acetaminophen/Caffeine [Fioricet 50-300-40 mg Capsule] 1 cap PO Q6H PRN PRN Reason: Headache Polyethylene Glycol 3350 [Miralax] 17 gm PO DAILY@0800 Gabapentin 300 mg PO HS@2099 #3 cap ALPRAZolam [Xanax] 0.25 mg PO BID PRN #6 tab PRN Reason: Anxiety Discharge Medication List Furosemide [Lasix] 80 mg PO BID@0600,1400 04/13/19 [History] Ferrous Sulfate [Iron (65 MG Elemental)] 325 mg PO DAILY@1700 08/12/20 [History] INSULIN ASPART (NovoLOG) [NovoLOG (formulary)] See Protocol SQ ACHS 08/12/20 [History] Insulin Detemir (Levemir) [Levemir] 5 unit SQ HS@209908/12/20 [History] bisacodyL [Dulcolax] 10 mg RECTAL DAILY PRN 08/12/20 [History] Amiodarone [Cordarone] 200 mg PO DAILY@0800 09/19/20 [History] Apixaban [Eliquis] 2.5 mg PO BID@0800,209909/19/20 [History] Atorvastatin [Lipitor] 40 mg PO HS 09/19/20 [History] Liquacel 30 ml PO BID@0800,209909/19/20 [History] Metoprolol Tartrate [Lopressor] 25 mg PO BID@0800,209909/19/20 [History] hydrALAZINE HCL [Apresoline] 75 mg PO TID@0600,1400,209909/19/20 [History] metOLazone [Zaroxolyn] 5 mg PO DAILY@0800 09/19/20 [History] Acetaminophen [Tylenol 8 Hour] 650 mg PO Q4H PRN 10/29/20 [History] Baclofen [Lioresal] 5 mg PO Q8H PRN 10/29/20 [History] Cholestyramine (with Sugar) [Cholestyramine Packet] 4 gm PO BID@0800,1700 0 10/29/20 [History] Docusate [Colace] 100 mg PO BID@0800,1700 10/29/20 [History] Mupirocin 2% Oint [Bactroban 2% Oint] 1 applic TOPICAL BID@0800,1700 10/29/20 [History] Triamcinolone 0.1% Cream [Kenalog 0.1% Cream] 1 applic TOPICAL BID@0800,1700 10/29/20 [History] Lidocaine 4% Cream [Lmx 4] 1 applic TOPICAL Q4H PRN 10/30/20 [Rx] Melatonin 6 mg PO HS #30 tablet 10/30/20 [Rx] Aspirin 81 mg PO DAILY@1700 11/11/20 [History] Butalb/Acetaminophen/Caffeine [Fioricet 50-300-40 mg Capsule] 1 cap PO Q6H PRN 11/11/20 [History] Ipratropium-Albuterol Nebulize [Duoneb 0.5 mg-3 mg/3 ml Soln] 3 ml INHALATION RT -Q6H PRN 11/11/20 [History] Magnesium Hydroxide [Milk of Magnesia Concentrate] 7,200 mg PO Q48H PRN 11/11/20 [History] Menthol-Zinc Oxide Oint [Calmoseptine Oint] 1 applic TOPICAL BID 11/11/20 [History] Oxymetazoline 0.05% Nasl [place] [Afrin 0.05% Nasal [place]] 1 spray EA NOSTRIL Q12H PRN 11/11/20 [History] Polyethylene Glycol 3350 [Miralax] 17 gm PO DAILY@0800 11/11/20 [History] Vancomycin HCl in 5 % Dextrose [Vancomycin 1 Gram/250 ml-D5w] 1 gm IV TUTHSA 11/11/20 [History] hydrOXYzine HCL 25 mg PO Q8H PRN 11/11/20 [History] ALPRAZolam [Xanax] 0.25 mg PO BID PRN #6 tab 11/15/20 [Rx] Cyanocobalamin [Vitamin B-12] 500 mcg PO DAILY #30 tablet 11/15/20 [Rx] Gabapentin 300 mg PO HS@2100 #3 cap 11/15/20 [Rx] HYDROcodone/APAP 5-325MG [[place] 5-325] 1 tab PO Q4H PRN #18 tab 11/15/20 [Rx] Follow up Appointment(s)/Referral(s): Perry Christian MD [Primary Care Provider] - 1 Week (at [facility]) Discharge Disposition: TRANSFER TO SNF/ECF
[2020-11-15] MEDS: METOPROLOL TARTRATE 25 MG TAB PO SCH ×2 (11:49→20:48)
[2020-11-15 11:50] LABS: Glucose,Whole Blood 113 mg/dL (75-99)
[2020-11-15] MEDS: CYANOCOBALAMIN 1,000 MCG/ML 1 ML VIAL IM SCH (12:59)
--- NOTE | 2020-11-15 13:09 | P.PN ---
Subjective Progress Note Date: 11/15/20 HISTORY OF PRESENT ILLNESS This is a 60-year-old male patient of Dr. Mckeon currently residing at [facility] under the care of Dr. 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 Patient was hospitalized in April 2020 at which time he was treated for sepsis and MRSA bacteremia of unclear etiology with metabolic encephalopathy vasovagal episode requiring brief CPR and patient was transferred to [facility]. Patient was treated for MRSA osteomyelitis of the lumbar spine. Patient had recent hospitalization September 19 and was transferred on September 30 to be [facility] due to sepsis with persistent MRSA bacteremia secondary to mitral valve vegetation, paraspinal abscess of the C1-C2. Patient was sent from [facility] to the emergency department to be evaluated for significant altered mental status confusion mild competitive and bizarre behavior could not keep him awake and could not finish dialysis day early because of the hypotension and severe tiredness. Was seen and evaluated and was sent back to [facility] while he still on the stretcher in [facility] before getting back to his bed patient could not being kept awake had severe change at the time was decided to send him back to the emergency room again. Patient was seen and evaluated the second time found to have mild hypotension severe confusion severe uremia and slightly but worsening anemia. Patient was started on gentle hydration consult nephrology for urgent dialysis patient to be continue his vancomycin for the endocarditis and to be seen infectious disease and cardiology. 11/12: Patient currently had 2 large tarry bowel movements this morning. Hemoglobin came back at 6.8 and he has been ordered for 2 units of packed RBCs. Patient continues to be lethargic. His blood pressure this morning was 77/47 but did recover to 122/77 and he did start hemodialysis this morning. Plan is for removal of 3 L of fluid. Patient has been afebrile, heart rate 72, pulse ox 98% on room air. WBC 10.9, hemoglobin 224. Sodium 136, potassium 6, chloride 97, CO2 14, BUN 157, creatinine 6.48. Blood sugars in the 170s. Magnesium 2.5. Alkaline phosphatase 131. ProBNP 32,200. Stool occult for occult blood was positive. Stool for occult blood was positive. Patient transferred into the intensive care unit and consult added for canvas cutter machine. 11/13: Patient remains in the intensive care unit. He underwent hemodialysis yesterday had repeat today with no plan for removal of fluid today. The patient's blood pressure was low this morning even after midodrine and patient had a syncopal episode according to his dialysis nurse. Patient is sitting in recliner and mental status is improved today but not back to baseline. He has been afebrile, heart rate 69, blood pressure 122/55, pulse ox 97% on 3 L nasal cannula. Repeat blood work reveals WBC of 8.1, hemoglobin 8.1, platelet count 176. CO2 19 otherwise electrolytes are normal. BUN 96 and creatinine 4.28. Blood sugars are running between 127 and 168. Patient is seen and followed by multiple consultants including neurology for toxic metabolic encephalopathy. He has been seen by cardiology and judie is on hold. GI is following. Plan is for EGD on Wednesday. 11/14: Patient is seen today on the MedSurg floor, he sitting on edge of the bed leaning on his bedside table, mental status is significantly improved. He states that he is not receiving dialysis today. He is scheduled for EGD tomorrow afternoon. Patient states that he is feeling better today he is having diarrhea for which Pooja added. Patient is afebrile, heart rate 59, blood pressure 84/51, pulse ox 95% on room air. Capillary blood glucose running between 107 and 244. Repeat blood work will be ordered for tomorrow. He is continued on vancomycin, pharmacy dosing for endocarditis. We'll plan for possible discharge back to [facility] tomorrow after EGD tomorrow. 11/15: Repeat blood work reveals WBC of 8.8, hemoglobin 7.8, platelet count 206. Sodium 135, potassium 4.8, chloride 97, CO2 23, BUN 82 and creatinine 4.94. Capillary blood glucose running between 133 and 286. Alkaline phosphatase 133. Patient has been afebrile, heart rate 67, blood pressure 108/61, pulse ox 92-98% on room air. Patient is scheduled for EGD today with Dr. Ramana Storey. Annia Llamas is undergoing hemodialysis today. Patient started feeling bad with headache, numbness in his legs and arms and hemodialysis was stopped early today. Dr. Nguyen is planning on repeat dialysis tomorrow with removal of 2 L. REVIEW OF SYSTEMS Constitutional: no fever, no chills, no night sweats. Significant weight gain and fluid retention. Reported weakness, reported fatigue Reported lethargy. Reported daytime sleepiness. EENT: No headache. He has lack of vision in one of his eyes.. No loss of Hearing, no ringing in the ears, no dizziness. No nasal drainage or congestion. No epistaxis. No sore throat. Lungs: Significant shortness of breath mild PND or wheezes. Cardiovascular: Positive fluid retention, PND, orthopnea, lightheadedness and dizziness with no syncope no significant chest pain but significant shortness of breath and dyspnea. Abdominal: Slight abdominal pain with distention and mild nausea no vomiting positive reported tarry stool and significant change in bowel habit. Genitourinary: Doesn't make much urine because of end-stage renal disease no burning or discomfort. Musculoskeletal: Positive myalgia muscle and generalized fatigue. Integumentary: Significant edema and water retention lower extremity with slight discoloration from the knee down. Neurologic: No aphasia. No facial droop. Back to baseline mentation. No head injury. No headache. No paralysis. No paresthesia. Psychiatric: Mild depression confusion with no anxiety. Endocrine: Noted abnormal blood sugars. No weight change. PHYSICAL EXAMINATION Gen: This is a 60-year-old male patient resting in bed. He appears to be in no acute distress. He appears fatigued. HEENT: Head is atraumatic, normocephalic. Pupils equal, round. Sclerae is anicteric. NECK: Supple. No JVD. No lymphadenopathy. No thyromegaly. LUNGS: Decreased expansion bilaterally with fine rhonchi positive mild crackles basis has not spread wheezes. HEART: Regular rate and rhythm. 2/6 systolic murmur with mild tachycardia.. ABDOMEN: Soft positive bowel sounds slight distention with no rebound or rigidity. EXTREMITIES: 1+ pedal edema with slight arthritis slight discoloration from the knee down. NEUROLOGICAL: Patient is awake alert and oriented 3. Cranial nerves 2 through 12 are grossly intact. ASSESSMENT AND PLAN 1. Acute toxic metabolic encephalopathy: Multifactorial combination of endocarditis, infection, end-stage renal disease with uremia, fluid overload and CHF, anemia possible GI bleed. 2. Shortness of breath secondary to fluid overload from missed dialysis treatment will consult with nephrology appreciated, continue hemodialysis. 3. Acute GI bleed with tarry stool hemoglobin is down to 6.8. Status post tr ansfusion of 2 units of packed RBCs, GI consult appreciated, monitor hemoglobin. EGD scheduled for Wednesday. Hold eliquis. 4. Worsening uremia: Secondary to end-stage renal disease with missing dialysis more often. 5. 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 Patient was transferred to [facility] and return to [facility] to complete 4 week course of IV vancomycin with dialysis. Antibiotic course started on October 19. Consult with Dr. Presley appreciated. 6. Metabolic encephalopathy secondary to uremia, fluid overload, anemia and hypertension, will try to treat underlying disease and evaluated patient patient will be seen neurology as well. 7. Recent treatment for MRSA bacteremia and lumbar spine osteomyelitis, completed course of antibiotics. 8. End-stage renal disease on hemodialysis. Consult with nephrology appreciated. Continue PhosLo 667 mg 3 times daily, Aranesp 40 g subcu every 7 days, hemodialysis. Patient had missed dialysis recently because of hypertension and a change mental status. 9. Degenerative disc disease and spinal stenosis. Continue gabapentin 300 mg at bedtime. Continue baclofen 5 mg every 8 hours as needed. 10. History of coronary artery disease with previous PTCA to LAD and circumflex. Continue aspirin 81 mg daily, atorvastatin 40 mg at bedtime, Lopressor 25 mg twice daily. 11. Paroxysmal atrial fibrillation. Continue eliquis 2.5 mg twice daily-on hold, continue Lopressor, amiodarone 200 mg daily pulse rates under control at this point. 12. Ischemic cardiomyopathy. Continue Lopressor, Lasix 80 mg twice daily, metolazone 5 mg daily. 13. Diabetes mellitus type 2, insulin requiring. Continue Levemir 5 units at bedtime, add NovoLog scale before meals and at bedtime, 14. Hypertension. Continue hydralazine 75 mg 3 times daily. 15. Anemia of chronic disease. Continue ferrous sulfate 325 mg twice daily. Along with Aranesp 40 g subcu every 7 days. 16. GI prophylaxis. Continue Protonix. 17. DVT prophylaxis. Was on Eliquis which will be held for now. 18. Covid 19 testing: Negative. Prognosis: guarded. CODE STATUS: DO NOT RESUSCITATE. DISCHARGE PLAN Return to [facility]. Patient may go back to [facility] and transition to hospice care. Social work will be talking to the patient's today regarding this as she was told by Jacylandrum to contact social work here in the hospital. Patient would be appropriate for hospice care. Anticipate discharge back to [facility] on Wednesday Impression and plan of care have been directed as dictated by the signing physician. Katelyn Wesley nurse practitioner acting as scribe for signing ph ysician. Objective - Vital Signs Vital signs: Vital Signs Temp 98.5 F 11/15/20 07:57 Pulse 67 11/15/20 07:57 Resp 18 11/15/20 07:57 BP 108/61 11/15/20 07:57 Pulse Ox 92 L 11/15/20 07:57 Intake & Output 11/14/20 11/15/20 11/15/20 18:59 06:59 18:59 Intake Total 300 Output Total 0 0 Balance 300 0 Intake: Oral 300 Output: Urine 0 0 Other: # Voids 0 # Bowel Movements 0 - Labs CBC & Chem 7: 11/15/20 06:26 11/15/20 06:26 Labs: Abnormal Lab Results - Last 24 Hours (Table) 11/12/20 11/14/20 11/14/20 Range/Units 20:00 11:35 16:46 RBC (4.40-5.60) X 10*6/uL Hgb (13.0-17.0) g/dL Hct (39.6-50.0) % RDW (11.5-14.5) % Absolute Nucleated RBC (0.00-0.00) X 10*3/uL NRBC/100 WBC Diff (0.0-0.0) /100 WBCS Sodium (137-145) mmol/L Chloride (98-107) mmol/L BUN (9-20) mg/dL Creatinine (0.66-1.25) mg/dL Glucose (74-99) mg/dL POC Glucose (mg/dL) 224 H 239 H (75-99) mg/dL Alkaline Phosphatase (38-126) U/L Total Protein (6.3-8.2) g/dL Methylmalonic Acid 0.74 H (<0.40) umol/L 11/14/20 11/14/20 11/15/20 Range/Units 20:31 23:37 06:26 RBC 2.59 L (4.40-5.60) X 10*6/uL Hgb 7.8 L (13.0-17.0) g/dL Hct 24.4 L (39.6-50.0) % RDW 15.9 H (11.5-14.5) % Absolute Nucleated RBC 0.09 H (0.00-0.00) X 10*3/uL NRBC/100 WBC Diff 1.0 H (0.0-0.0) /100 WBCS Sodium (137-145) mmol/L Chloride (98-107) mmol/L BUN (9-20) mg/dL Creatinine (0.66-1.25) mg/dL Glucose (74-99) mg/dL POC Glucose (mg/dL) 286 H 216 H (75-99) mg/dL Alkaline Phosphatase (38-126) U/L Total Protein (6.3-8.2) g/dL Methylmalonic Acid (<0.40) umol/L 11/15/20 11/15/20 Range/Units 06:26 06:59 RBC (4.40-5.60) X 10*6/uL Hgb (13.0-17.0) g/dL Hct (39.6-50.0) % RDW (11.5-14.5) % Absolute Nucleated RBC (0.00-0.00) X 10*3/uL NRBC/100 WBC Diff (0.0-0.0) /100 WBCS Sodium 135 L (137-145) mmol/L Chloride 97 L (98-107) mmol/L BUN 82 H (9-20) mg/dL Creatinine 4.94 H (0.66-1.25) mg/dL Glucose 133 H (74-99) mg/dL POC Glucose (mg/dL) 134 H (75-99) mg/dL Alkaline Phosphatase 133 H (38-126) U/L Total Protein 6.2 L (6.3-8.2) g/dL Methylmalonic Acid (<0.40) umol/L
[2020-11-15] MEDS ORDERED: LIDOCAINE 1% INJ 10MG/ML (20 ML MDV) ONE (13:19)
[2020-11-15] MEDS ORDERED: PROPOFOL 10 MG/ML 20 ML VIAL IV ONE (13:19)
[2020-11-15] MEDS ORDERED: SODIUM CHLORIDE 0.9% 500 ML 500 ML IV ONE (13:21)
--- NOTE | 2020-11-15 13:37 | PN ---
PROGRESS NOTE DATE OF SERVICE: 11/15/2020 REASON FOR FOLLOWUP: MRSA endocarditis and cervical paraspinal abscess. INTERVAL HISTORY: Patient is afebrile. His main symptom remains to be nausea but no vomiting. No chest pain, shortness of breath or cough. No abdominal pain. No diarrhea. PHYSICAL EXAMINATION: Blood pressure 108/61 with a pulse of 67, temperature 98.5. He is 92% on room air. General description is a middle-aged male up in the bed in no distress. Respiratory system: Unlabored breathing with decreased intensity of breath sounds. No wheeze. Heart S1, S2. Regular rate and rhythm. Abdomen: Soft. No tenderness. LABS: Hemoglobin is 9.8, white count of 8.87, BUN of 82, creatinine 0.94. DIAGNOSTIC IMPRESSION AND PLAN: Patient with mild cervical paraspinal abscess, currently being treated medically. Patient is on vancomycin that will be continued to finish his 6 week course and continue supportive care. MMODL / IJN: [id number] /
--- NOTE | 2020-11-15 13:58 | P.PCN ---
Date of Procedure: 11/15/20 Procedure(s) Performed: BRIEF HISTORY: Patient is a 60-year-old, pleasant, white male with history of end-stage renal disease on hemodialysis admitted to the hospital with acute GI bleed. He had an episode of black tarry stools and dropped his symptoms to 6.1 requiring 2 units of PRBC transfusion. The Olympus has been on hold for 3 days and he scheduled for an upper endoscopy to evaluate further. PROCEDURE PERFORMED: Esophagogastroduodenoscopy with biopsy. PREOPERATIVE DIAGNOSIS: Acute upper GI bleed. IV sedation per anesthesia. PROCEDURE: After informed consent was obtained, the patient was brought into the endoscopy unit. IV sedation was administered by Anesthesia under continuous monitoring. Initially the Olympus GIF-140 video endoscope was inserted into the mouth. Esophagus intubated without any difficulty. It was gradually advanced into the stomach and duodenum and carefully examined. The bulb and the second part of the duodenum appeared normal. The scope at this time was withdrawn to the stomach, adequately insufflated with air, and upon careful examination in the pyloric channel there was a 1 cm polyp that was biopsied. There was no active bleeding noted. There was mild gastritis in the antrum with small antral polyps which were biopsied. No evidence of peptic ulcer disease. No active bleeding noted. Mucosa of the body, cardia and the fundus appeared normal. The scope was then withdrawn into the esophagus. The GE junction was located at 39 cm from the incisors. The esophagus appeared normal. There were no erosions or ulcerations seen and the patient tolerated the procedure well. IMPRESSION: 1. 1 cm polyp in the pylorus with no active bleeding status post biopsy. 2. Antral gastritis with small antral polyps. RECOMMENDATIONS: The findings of this examination were discussed with the patient. He was advised to follow with the biopsy results. Anti-coagulation can be resumed at this time. Patient can be discharged home. Diet will be advanced as tolerated..
--- NOTE | 2020-11-15 14:48 | P.PN ---
Subjective Progress Note Date: 11/15/20 11/15/2020: Patient is getting dialysis. He is very drowsy, probably had undergone upper and lower endoscopy. 11/14/2020: Patient was seen for a follow-up. Patient is doing much better. Patient is sitting on the side of the bed. However he states he feels "terrible", due to his blood pressure was low. He complains of headache 10/01, but has been present since March 2020. He gets nauseous. Objective - Vital Signs Vital signs: Vital Signs Temp 98.5 F 11/15/20 07:57 Pulse 67 11/15/20 08:00 Resp 18 11/15/20 08:00 BP 108/61 11/15/20 07:57 Pulse Ox 92 L 11/15/20 07:57 Intake & Output 11/14/20 11/15/20 11/15/20 18:59 06:59 18:59 Intake Total 300 50 Output Total 0 0 Balance 300 0 50 Intake: IV 50 Oral 300 Output: Urine 0 0 Other: # Voids 0 0 # Bowel Movements 0 1 - Exam 11/15/2020: Patient very somnolent, therefore examination deferred. 11/14/2020: Patient is today fully alert and awake. He is sitting on the side of the bed. He knows it is October and the year is 2020 and that he is in [facility]. Speech and language functions are normal. No aphasia or dysarthria. Speech and language functions are normal. Cranial nerve examination again reveals patient keeps his right eye closed. 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 Extraocular muscles appears intact. He is very hard of hearing. Other lower cranial nerves are normal. Patient was able to cooperate with examination much better today. His strength is completely normal in both arms distally and proximally, including detailed testing of the left upper limb. In the lower extremities his hip flexion is 2/2, knee extension 5/5, hip adduction 5/5, hip abduction 5/5, knee extension 5/5, ankle dorsiflexion 5/5, toe extension 2/2. Patient is areflexic. Patient had very significant peripheral edema in the lower extremities from toes up to the knees. Patient appears to have some muscle atrophy of the quadriceps bilaterally. - Labs CBC & Chem 7: 11/15/20 06:26 11/15/20 06:26 Labs: Abnormal Lab Results - Last 24 Hours (Table) 11/12/20 11/14/20 11/14/20 Range/Units 20:00 16:46 20:31 RBC (4.40-5.60) X 10*6/uL Hgb (13.0-17.0) g/dL Hct (39.6-50.0) % RDW (11.5-14.5) % Absolute Nucleated RBC (0.00-0.00) X 10*3/uL NRBC/100 WBC Diff (0.0-0.0) /100 WBCS Sodium (137-145) mmol/L Chloride (98-107) mmol/L BUN (9-20) mg/dL Creatinine (0.66-1.25) mg/dL Glucose (74-99) mg/dL POC Glucose (mg/dL) 239 H 286 H (75-99) mg/dL Alkaline Phosphatase (38-126) U/L Total Protein (6.3-8.2) g/dL Methylmalonic Acid 0.74 H (<0.40) umol/L 11/14/20 11/15/20 11/15/20 Range/Units 23:37 06:26 06:26 RBC 2.59 L (4.40-5.60) X 10*6/uL Hgb 7.8 L (13.0-17.0) g/dL Hct 24.4 L (39.6-50.0) % RDW 15.9 H (11.5-14.5) % Absolute Nucleated RBC 0.09 H (0.00-0.00) X 10*3/uL NRBC/100 WBC Diff 1.0 H (0.0-0.0) /100 WBCS Sodium 135 L (137-145) mmol/L Chloride 97 L (98-107) mmol/L BUN 82 H (9-20) mg/dL Creatinine 4.94 H (0.66-1.25) mg/dL Glucose 133 H (74-99) mg/dL POC Glucose (mg/dL) 216 H (75-99) mg/dL Alkaline Phosphatase 133 H (38-126) U/L Total Protein 6.2 L (6.3-8.2) g/dL Methylmalonic Acid (<0.40) umol/L 11/15/20 11/15/20 Range/Units 06:59 11:48 RBC (4.40-5.60) X 10*6/uL Hgb (13.0-17.0) g/dL Hct (39.6-50.0) % RDW (11.5-14.5) % Absolute Nucleated RBC (0.00-0.00) X 10*3/uL NRBC/100 WBC Diff (0.0-0.0) /100 WBCS Sodium (137-145) mmol/L Chloride (98-107) mmol/L BUN (9-20) mg/dL Creatinine (0.66-1.25) mg/dL Glucose (74-99) mg/dL POC Glucose (mg/dL) 134 H 113 H (75-99) mg/dL Alkaline Phosphatase (38-126) U/L Total Protein (6.3-8.2) g/dL Methylmalonic Acid (<0.40) umol/L Assessment and Plan Assessment: * Altered mental status due to toxic metabolic encephalopathy, cause is multifactorial. Patient had previously missed dialysis. * Acute GI bleed with drop in hemoglobin and anemia * End-stage renal disease on hemodialysis * Fluid retention, anasarca * B12 deficiency with borderline B12 274 * Bilateral lower extremity weakness, possibly due to previous history of paraspinal abscess, possible ?neuropathy. * History of endocarditis, currently on vancomycin. * CHF * History of atrial fibrillation on Eliquis * Hypertension * Diabetes, controlled. Plan: * Patient's toxic metabolic encephalopathy has remarkably improved. Patient's muscle strength testing also revealed normal strength in the upper limbs, and significantly improved strength in the lower limbs as mentioned above. * Patient has atrial fibrillation, but currently Eliquis is on hold because of GI bleed. Hemoglobin was 6.8. * EGD revealed 1 cm polyp in the pylorus with no active bleeding, status post biopsy. Antral gastritis with small antral polyp. GI has cleared patient for anticoagulation. Suggest resuming Apixaban. * Patient has bilateral lower extremity weakness, which could be related to peripheral neuropathy. Workup has revealed mild B12 deficiency. M ethylmalonic acid is also elevated 0.74 (<0.40), consistent with vitamin B12 deficiency. Continue B12 replacement 1000 g IM daily for 7 days then once a week thereafter. * Still pending B6, acetylcholine receptor antibodies, CK 180. * Patient had MRI of the cervical, lumbar and thoracic spine without contrast on 09/24/2020, in which assessment of the spine is largely nondiagnostic. Generalized anasarca. Unable to exclude abnormality at the C1 dens articulation with fluid signal in the predental , possible prevertebral soft tissue swelling/edema and possible pannus and/or erosive changes involving portion of the dens. Infectious etiology not excluded. Patient was diagnosed with paraspinal abscess at C1-C2 and transferred to [facility] in early September 2020. Patient's leg weakness could be residual effect of the previous paraspinal abscess. Per ID patient is on vancomycin. Patient's mentation and strength is much improved. * 2-D echo from 11/12/2020 shows moderate concentric LVH, EF is mildly impaired 45-50%. Paradoxical/dyssynergy septal motion consistent with right ventricular volume overload. Moderate aortic stenosis. Moderate MR. * Neurologically clear.
[2020-11-15] MEDS: BUTALB/APAP/CAFF 50-325-40MG TAB PO PRN (15:29)
[2020-11-15 16:50] LABS: Glucose,Whole Blood 196 mg/dL (75-99)
[2020-11-15] MEDS: SODIUM CHLORIDE 0.9% 1,000 ML IV SCH (17:20)
[2020-11-15] MEDS: LACTATED RINGERS 1,000 ML IV SCH (17:20)
[2020-11-15] MEDS: FERROUS SULFATE 325 MG TAB PO SCH (17:20)
[2020-11-15] MEDS: ACETAMINOPHEN TAB 325 MG TAB PO PRN (17:23)
[2020-11-15] MEDS: ASPIRIN 81 MG PO SCH (17:24)
--- NOTE | 2020-11-15 17:46 | PN ---
PROGRESS NOTE Patient is seen for followup for end-stage renal disease. He is currently seen on hemodialysis, tolerating his treatment well. The patient was admitted to the hospital with mental status changes, volume overload. He was found to have a significant anemia with a hemoglobin at 6.8 secondary to gastrointestinal bleed. The patient is scheduled to have an endoscopy later on today. PHYSICAL EXAMINATION: On examination today, blood pressure was 108/61, heart rate 62 per minute. He is afebrile. Examination of the heart S1, S2. Examination of the lungs, decreased breath sounds at the bases. Abdomen is soft, nontender. Examination of lower extremities shows edema 2+ bilaterally. TURF MANAGER exam grossly intact. LAB: Show sodium 135, potassium 4.8, hemoglobin 7.8 g/dL. ASSESSMENT: 1. End-stage renal disease, on hemodialysis on a Wednesday, , Wednesday schedule, receiving extra treatments for significantly elevated BUN and creatinine and perhaps a component of uremic encephalopathy. The patient will be dialyzed again tomorrow which is his regular day. His BUN and creatinine have improved significantly with BUN down to 82 from 157 and creatinine at 4.9 from 6.48 on initial admission. 2. Disproportionately elevated BUN secondary to gastrointestinal bleed. 3. Acute blood loss anemia from GI bleed scheduled for endoscopy today. 4. CKD mineral bone disorder. 5. History of MRSA bacteremia from lumbar spine osteomyelitis and endocarditis previously in April/May of 2020. PLAN: Hemodialysis today and then again in a.m. Goal UF of about 2-3 L as tolerated. Decrease antihypertensive medications as blood pressure is staying on the lower side. MMODL / IJN: [id number] /
[2020-11-15 20:15] LABS: Glucose,Whole Blood 207 mg/dL (75-99)
[2020-11-15] MEDS: MELATONIN 3 MG TABLET PO SCH (20:48)
[2020-11-15] MEDS: GABAPENTIN 300 MG CAP PO SCH (20:48)
[2020-11-15] MEDS: ATORVASTATIN 40 MG TAB PO SCH (20:48)
[2020-11-15] MEDS: ONDANSETRON 4 MG TAB PO PRN (20:48)
[2020-11-15] MEDS: OXYMETAZOLINE 0.05% NASL SPRAY 1 SPRAY BOTTLE EA NOSTRIL PRN (20:49)
[2020-11-15] MEDS: INSULIN DETEMIR (LEVEMIR) 100 UNIT/ML SYR SQ SCH (21:58)
[2020-11-16] MEDS: hydrOXYzine HCL 25 MG TAB PO PRN ×2 (00:07→18:27)
[2020-11-16 07:14] LABS: Glucose,Whole Blood 115 mg/dL (75-99)
[2020-11-16] MEDS: INSULIN ASPART (NovoLOG) 100 UNIT/ML VIAL SQ SCH ×4 (08:47→21:35)
[2020-11-16] MEDS: polyethylene glycoL 3350 17 GM POWD.PACK PO SCH (09:23)
[2020-11-16] MEDS: PANTOPRAZOLE 40 MG/10 ML VIAL IVP SCH (09:23)
[2020-11-16] MEDS: CHOLESTYRAMINE (WITH SUGAR) 4 GM PACKET PO SCH ×2 (09:23→18:28)
[2020-11-16] MEDS: ASPIRIN 81 MG PO SCH (09:24)
[2020-11-16] MEDS: hydrALAZINE HCL 25 MG TAB PO SCH ×3 (09:24→23:45)
[2020-11-16] MEDS: METOPROLOL TARTRATE 25 MG TAB PO SCH ×2 (09:24→23:46)
[2020-11-16] MEDS: AMIODARONE 200 MG TAB PO SCH (09:24)
[2020-11-16] MEDS: CYANOCOBALAMIN 1,000 MCG/ML 1 ML VIAL IM SCH (09:24)
[2020-11-16] MEDS: DOCUSATE 100 MG CAP PO SCH ×2 (09:24→21:36)
--- NOTE | 2020-11-16 09:54 | P.PN ---
Subjective Progress Note Date: 11/16/20 Principal diagnosis: this is a 60-year-old male known to us with ESRD on dialysis Wednesday. He was admitted with change in her status congestive heart failure. Also had GI bleed. He is known with type 2 diabetes severe peripheral neuropathy which is disabling according to him, proximal atrial fibrillation coronary artery disease status post cardiac catheterization He states he is feeling fairly well right now except for the severe neuropathy. His hemoglobin is 7.8 Objective - Vital Signs Vital signs: Vital Signs Temp 98.3 F 11/16/20 08:00 Pulse 64 11/16/20 08:00 Resp 16 11/16/20 08:00 BP 143/82 11/16/20 08:00 Pulse Ox 95 11/16/20 08:00 Intake & Output 11/15/20 11/16/20 11/16/20 18:59 06:59 18:59 Intake Total 450 236 Output Total 1999 Balance -1550 236 Intake: IV 50 Oral 400 236 Output: Hemodialysis 1999 Other: # Voids 0 0 # Bowel Movements 1 exam awake alert oriented comfortable sitting in a chair HEENT exam no JVP neck is supple no facial asymmetry is legally blind Lungs are clear to auscultation good air entry bilaterally Heart sounds unremarkable for any murmur rub gallop Abdomen soft nontender somewhat pendulous nontender Extremity exam was 2-3+ edema Neurologically awake alert oriented - Labs CBC & Chem 7: 11/15/20 06:26 11/15/20 06:26 Labs: Abnormal Lab Results - Last 24 Hours (Table) 11/15/20 11/15/20 11/15/20 Range/Units 11:48 16:48 20:13 POC Glucose (mg/dL) 113 H 196 H 207 H (75-99) mg/dL 11/16/20 Range/Units 07:13 POC Glucose (mg/dL) 115 H (75-99) mg/dL Assessment and Plan Assessment: impression 1. ESRD on dialysisWednesday. Was dialyzed yesterday because of the confusion and mental status changes and to be dialyzed today again. 2. GI bleed.hemoglobin 7.8 hemodynamically stable 3.severe peripheral neuropathy on gabapentin 4. History of coronary artery disease and standing 5. 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 Recommendation 1. Proceed with dialysis as scheduled today. 2. Watch hemoglobin. Seems to be coming down slowly.check iron saturation and replenish as needed
[2020-11-16] MEDS: BUTALB/APAP/CAFF 50-325-40MG TAB PO PRN ×2 (10:33→15:55)
--- NOTE | 2020-11-16 10:54 | P.PN ---
Subjective Progress Note Date: 11/16/20 This is a 60-year-old male patient of Dr. Mckeon currently residing at [facility] under the care of Dr. 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 Patient was hospitalized in April 2020 at which time he was treated for sepsis a nd MRSA bacteremia of unclear etiology with metabolic encephalopathy vasovagal episode requiring brief CPR and patient was transferred to [facility]. Patient was treated for MRSA osteomyelitis of the lumbar spine. Patient had recent hospitalization September 19 and was transferred on September 30 to be [facility] due to sepsis with persistent MRSA bacteremia secondary to mitral valve vegetation, paraspinal abscess of the C1-C2. Patient was sent from [facility] to the emergency department to be evaluated for significant altered mental status confusion mild competitive and bizarre behavior could not keep him awake and could not finish dialysis day early because of the hypotension and severe tiredness. Was seen and evaluated and was sent back to [facility] while he still on the stretcher in [facility] before getting back to his bed patient could not being kept awake had severe change at the time was decided to send him back to the emergency room again. Patient was seen and evaluated the second time found to have mild hypotension severe confusion severe uremia and slightly but worsening anemia. Patient was started on gentle hydration consult nephrology for urgent dialysis patient to be continue his vancomycin for the endocarditis and to be seen infectious disease and cardiology. 11/12: Patient currently had 2 large tarry bowel movements this morning. Hemoglobin came back at 6.8 and he has been ordered for 2 units of packed RBCs. Patient continues to be lethargic. His blood pressure this morning was 77/47 but did recover to 122/77 and he did start hemodialysis this morning. Plan is for removal of 3 L of fluid. Patient has been afebrile, heart rate 72, pulse ox 98% on room air. WBC 10.9, hemoglobin 224. Sodium 136, potassium 6, chloride 97, CO2 14, BUN 157, creatinine 6.48. Blood sugars in the 170s. Magnesium 2.5. Alkaline phosphatase 131. ProBNP 32,200. Stool occult for occult blood was positive. Stool for occult blood was positive. 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 11/13: Patient remains in the intensive care unit. He underwent hemodialysis yesterday had repeat today with no plan for removal of fluid today. The patient's blood pressure was low this morning even after midodrine and patient had a syncopal episode according to his dialysis nurse. Patient is sitting in recliner and mental status is improved today but not back to baseline. He has been afebrile, heart rate 69, blood pressure 122/55, pulse ox 97% on 3 L nasal cannula. Repeat blood work reveals WBC of 8.1, hemoglobin 8.1, platelet count 176. CO2 19 otherwise electrolytes are normal. BUN 96 and creatinine 4.28. Blood sugars are running between 127 and 168. Patient is seen and followed by multiple consultants including neurology for toxic metabolic encephalopathy. He has been seen by cardiology and judie is on hold. GI is following. Plan is for EGD on Wednesday. 11/14: Patient is seen today on the MedSurg floor, he sitting on edge of the bed leaning on his bedside table, mental status is significantly improved. He states that he is not receiving dialysis today. He is scheduled for EGD tomorrow afternoon. Patient states that he is feeling better today he is having diarrhea for which Pooja added. Patient is afebrile, heart rate 59, blood pressure 84/51, pulse ox 95% on room air. Capillary blood glucose running between 107 and 244. Repeat blood work will be ordered for tomorrow. He is continued on vancomycin, pharmacy dosing for endocarditis. We'll plan for p ossible discharge back to [facility] tomorrow after EGD tomorrow. 11/15: Repeat blood work reveals WBC of 8.8, hemoglobin 7.8, platelet count 206. Sodium 135, potassium 4.8, chloride 97, CO2 23, BUN 82 and creatinine 4.94. Capillary blood glucose running between 133 and 286. Alkaline phosphatase 133. Patient has been afebrile, heart rate 67, blood pressure 108/61, pulse ox 92-98% on room air. Patient is scheduled for EGD today with Dr. Ramana Storey. A Farhad is undergoing hemodialysis today. Patient started feeling bad with headache, numbness in his legs and arms and hemodialysis was stopped early today. Dr. Nguyen is planning on repeat dialysis tomorrow with removal of 2 L. 11/16: Patient was upset that his gabapentin cannot been decreased. He is having significant amounts of lower extremity pain especially at night. This is not allowing him to be able to sleep because of his neuropathy pain. Lidocaine gel to be applied at night to bilateral feet to assist with pain control. Continue dialysis daily. Patient states that he is feeling better with no complaints he is in no acute distress. She remains afebrile, heart rate 64, respirations 16, blood pressure 143/82 pulse ox 95% on room air REVIEW OF SYSTEMS Constitutional: no fever, no chills, no night sweats. Significant weight gain and fluid retention. Reported weakness, reported fatigue Reported lethargy. Reported daytime sleepiness. Reports bilateral foot pains especially at night unable to sleep EENT: No headache. He has lack of vision in one of his eyes.. No loss of Hearing, no ringing in the ears, no dizziness. No nasal drainage or congestion. No epistaxis. No sore throat. Lungs: Significant shortness of breath mild PND or wheezes. Cardiovascular: Positive fluid retention, PND, orthopnea, lightheadedness and dizziness with no syncope no significant chest pain but significant shortness of breath and dyspnea. Abdominal: Slight abdominal pain with distention and mild nausea no vomiting positive reported tarry stool and significant change in bowel habit. Genitourinary: Doesn't make much urine because of end-stage renal disease no burning or discomfort. Musculoskeletal: Positive myalgia muscle and generalized fatigue. Integumentary: Significant edema and water retention lower extremity with slight discoloration from the knee down. Neurologic: No aphasia. No facial droop. Back to baseline mentation. No head injury. No headache. No paralysis. No paresthesia. Psychiatric: Mild depression confusion with no anxiety. Endocrine: Noted abnormal blood sugars. No weight change. PHYSICAL EXAMINATION Gen: This is a 60-year-old male patient resting in bed. He appears to be in no acute distress. He appears fatigued. HEENT: Head is atraumatic, normocephalic. Pupils equal, round. Sclerae is anicteric. NECK: Supple. No JVD. No lymphadenopathy. No thyromegaly. LUNGS: Decreased expansion bilaterally with fine rhonchi positive mild crackles basis has not spread wheezes. HEART: Regular rate and rhythm. 2/6 systolic murmur with mild tachycardia.. ABDOMEN: Soft positive bowel sounds slight distention with no rebound or rigidity. EXTREMITIES: 1+ pedal edema with slight arthritis slight discoloration from the knee down. NEUROLOGICAL: Patient is awake alert and oriented 3. Cranial nerves 2 through 12 are grossly intact. ASSESSMENT AND PLAN 1. Acute toxic metabolic encephalopathy: Multifactorial combination of e ndocarditis, infection, end-stage renal disease with uremia, fluid overload and CHF, anemia possible GI bleed. 2. Shortness of breath secondary to fluid overload from missed dialysis treatment will consult with nephrology appreciated, continue hemodialysis. 3. Acute GI bleed with tarry stool hemoglobin is down to 6.8. Status post transfusion of 2 units of packed RBCs, GI consult appreciated, monitor hemoglobin. EGD scheduled for Wednesday. Hold eliquis. 4. Worsening uremia: Secondary to end-stage renal disease with missing dialysis more often. 5. 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 Patient was transferred to [facility] and return to [facility] to complete 4 week course of IV vancomycin with dialysis. Antibiotic course started on October 19. Consult with Dr. Presley appreciated. 6. Metabolic encephalopathy secondary to uremia, fluid overload, anemia and hypertension, will try to treat underlying disease and evaluated patient patient will be seen neurology as well. 7. Recent treatment for MRSA bacteremia and lumbar spine osteomyelitis, completed course of antibiotics. 8. End-stage renal disease on hemodialysis. Consult with nephrology appreciated. Continue PhosLo 667 mg 3 times daily, Aranesp 40 g subcu every 7 days, hemodialysis. Patient had missed dialysis recently because of hypertension and a change mental status. 9. Degenerative disc disease and spinal stenosis. Continue gabapentin 300 mg at bedtime. Continue baclofen 5 mg every 8 hours as needed. 10. History of coronary artery disease with previous PTCA to LAD and circumflex. Continue aspirin 81 mg daily, atorvastatin 40 mg at bedtime, Lopressor 25 mg twice daily. 11. Paroxysmal atrial fibrillation. Continue eliquis 2.5 mg twice daily-on hold, continue Lopressor, amiodarone 200 mg daily pulse rates under control at this point. 12. Ischemic cardiomyopathy. Continue Lopressor, Lasix 80 mg twice daily, metolazone 5 mg daily. 13. Diabetes mellitus type 2, insulin requiring. Continue Levemir 5 units at bedtime, add NovoLog scale before meals and at bedtime, 14. Hypertension. Continue hydralazine 75 mg 3 times daily. 15. Anemia of chronic disease. Continue ferrous sulfate 325 mg twice daily. Along with Aranesp 40 g subcu every 7 days. 16. Neuropathy to bilateral feet. Lidocaine gel to bilateral feet at bedtime 17. GI prophylaxis. Continue Protonix. 18. DVT prophylaxis. Was on Eliquis which will be held for now. 19. Covid 19 testing: Negative. Prognosis: guarded. CODE STATUS: DO NOT RESUSCITATE. DISCHARGE PLAN Return to [facility]. Patient may go back to [facility] and transition to hospice care. Social work will be talking to the patient's today regarding this as she was told by [facility] to contact social work here in the hospital. Patient would be appropriate for hospice care. Anticipate discharge back to [facility] on Wednesday Impression and plan of care have been directed as dictated by the signing physician. Karina Aponte nurse practitioner acting as scribe for signing physician. Objective - Vital Signs Vital signs: Vital Signs Temp 98.3 F 11/16/20 08:00 Pulse 64 11/16/20 08:00 Resp 16 11/16/20 08:00 BP 143/82 11/16/20 08:00 Pulse Ox 95 11/16/20 08:00 Intake & Output 11/15/20 11/16/20 11/16/20 18:59 06:59 18:59 Intake Total 450 236 Output Total 1999 0 Balance -1550 236 Intake: IV 50 Oral 400 236 Output: Urine 0 Hemodialysis 1999 Other: # Voids 0 0 0 # Bowel Movements 1 - Labs CBC & Chem 7: 11/15/20 06:26 11/15/20 06:26 Labs: Abnormal Lab Results - Last 24 Hours (Table) 11/15/20 11/15/20 11/15/20 Range/Units 11:48 16:48 20:13 POC Glucose (mg/dL) 113 H 196 H 207 H (75-99) mg/dL 11/16/20 Range/Units 07:13 POC Glucose (mg/dL) 115 H (75-99) mg/dL
[2020-11-16 12:05] LABS: Glucose,Whole Blood 141 mg/dL (75-99)
[2020-11-16] MEDS: ACETAMINOPHEN TAB 325 MG TAB PO PRN ×2 (12:40→21:47)
[2020-11-16] MEDS: TRIAMCINOLONE ACET 0.5% CREAM 15 GM TUBE TOPICAL SCH ×2 (15:21→23:47)
[2020-11-16] MEDS: LIDOCAINE 2% GEL 30 ML TUBE TOPICAL PRN (15:47)
[2020-11-16 16:46] LABS: Glucose,Whole Blood 197 mg/dL (75-99)
[2020-11-16 17:19] LABS: % Iron Saturation 23.08 (15.00-50.00)
--- NOTE | 2020-11-16 17:19 | P.PN ---
Subjective Progress Note Date: 11/16/20 11/16/2020: This is a tele-neurology follow-up performed today on 11/16/2020. Patient has just completed his hemodialysis. About 2.3 L were withdrawn. Patient still complains of headache, "bad", 08/31. It has been going on for months. No new concerns. 11/15/2020: Patient is getting dialysis. He is very drowsy, probably had undergone upper and lower endoscopy. 11/14/2020: Patient was seen for a follow-up. Patient is doing much better. Patient is sitting on the side of the bed. However he states he feels "terrible", due to his blood pressure was low. He complains of headache 10/01, but has been present since March 2020. He gets nauseous. Objective - Vital Signs Vital signs: Vital Signs Temp 98.2 F 11/16/20 15:15 Pulse 84 11/16/20 15:15 Resp 20 11/16/20 15:15 BP 132/82 11/16/20 15:15 Pulse Ox 97 11/16/20 14:00 Intake & Output 11/15/20 11/16/20 11/16/20 18:59 06:59 18:59 Intake Total 450 472 Output Total 1999 1999 Balance -1550 -1528 Intake: IV 50 Oral 400 472 Output: Urine 0 Hemodialysis 1999 1999 Other: # Voids 0 0 0 # Bowel Movements 1 - Exam 11/16/2020: Patient more alert and awake. Still slightly somnolent. Patient's pupils are round and reacting. Extraocular muscles revealed some questionable disconjugate gaze to the left, when he tends to close his right eye. He probably needs a neuro-ophthalmology evaluation. Rest of the examination is unchanged as compared to 11/14/2020. 11/15/2020: Patient very somnolent, therefore examination deferred. 11/14/2020: Patient is today fully alert and awake. He is sitting on the side of the bed. He knows it is October and the year is 2020 and that he is in [facility]. Speech and language functions are normal. No aphasia or dysarthria. Speech and language functions are normal. Cranial nerve examination again reveals patient keeps his right eye closed. 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 Extraocular muscles appears intact. He is very hard of hearing. Other lower cranial nerves are normal. Patient was able to cooperate with examination much better today. His strength is completely normal in both arms distally and proximally, including detailed testing of the left upper limb. In the lower extremities his hip flexion is 2/2, knee extension 5/5, hip adduction 5/5, hip abduction 5/5, knee extension 5/5, ankle dorsiflexion 5/5, toe extension 2/2. Patient is areflexic. Patient had very significant peripheral edema in the lower extremities from toes up to the knees. Patient appears to have some muscle atrophy of the quadriceps bilaterally. - Labs CBC & Chem 7: 11/15/20 06:26 11/15/20 06:26 Labs: Abnormal Lab Results - Last 24 Hours (Table) 11/15/20 11/16/20 11/16/20 Range/Units 20:13 07:13 12:04 POC Glucose (mg/dL) 207 H 115 H 141 H (75-99) mg/dL 11/16/20 Range/Units 16:45 POC Glucose (mg/dL) 197 H (75-99) mg/dL Assessment and Plan Assessment: * Altered mental status due to toxic metabolic encephalopathy, cause is multifactorial. Patient had previously missed dialysis. * Acute GI bleed with drop in hemoglobin and anemia. Patient's hematocrit still low 24.4 * End-stage renal disease on hemodialysis * Fluid retention, anasarca * B12 deficiency with borderline B12 274 * Bilateral lower extremity weakness, possibly due to previous history of paraspinal abscess, possible ?neuropathy. * History of endocarditis, currently on vancomycin. * CHF * History of atrial fibrillation on Eliquis * Hypertension * Diabetes, controlled. Plan: * Patient's toxic metabolic encephalopathy has remarkably improved. Patient's muscle strength testing also revealed normal strength in the upper limbs, and significantly improved strength in the lower limbs as mentioned above. * Patient has atrial fibrillation, but currently Eliquis is on hold because of GI bleed. Hemoglobin was 6.8. * EGD revealed 1 cm polyp in the pylorus with no active bleeding, status post biopsy. Antral gastritis with small antral polyp. GI has cleared patient for anticoagulation. Suggest resuming Apixaban. Patient's hemoglobin is 7.8, therefore I will defer to primary physician to resume anticoagulation if medically cleared. I discussed with patient's nurse about this. * Patient has bilateral lower extremity weakness, which could be related to peripheral neuropathy. Workup has revealed mild B12 deficiency. Methylmalonic acid is also elevated 0.74 (<0.40), consistent with vitamin B12 deficiency. Continue B12 replacement 1000 g IM daily for 7 days then once a week thereafter. * Still pending B6, acetylcholine receptor antibodies, CK 180. * Patient had MRI of the cervical, lumbar and thoracic spine without contrast on 09/24/2020, in which assessment of the spine is largely nondiagnostic. Generalized anasarca. Unable to exclude abnormality at the C1 dens articulation with fluid signal in the predental , possible prevertebral soft tissue swelling/edema and possible pannus and/or erosive changes involving portion of the dens. Infectious etiology not excluded. Patient was diagnosed with paraspinal abscess at C1-C2 and transferred to [facility] in early September 2020. Patient's leg weakness could be residual effect of the previous paraspinal abscess. Per ID patient is on vancomycin. Patient's mentation and strength is much improved. * 2-D echo from 11/12/2020 shows moderate concentric LVH, EF is mildly impaired 45-50%. Paradoxical/dyssynergy septal motion consistent with right ventricular volume overload. Moderate aortic stenosis. Moderate MR. * Neurologically clear. Addendum 11/24/2020: B6 level is very low 2 (5-15), need to start B6 replacement Acetylcholine receptor antibodies negative < 0.30
[2020-11-16] MEDS: ONDANSETRON 4 MG TAB PO PRN (18:27)
[2020-11-16] MEDS: FERROUS SULFATE 325 MG TAB PO SCH (18:28)
--- NOTE | 2020-11-16 20:01 | PN ---
PROGRESS NOTE DATE OF SERVICE: 11/16/2020 REASON FOR FOLLOWUP: MRSA endocarditis and paraspinal abscess. INTERVAL HISTORY: The patient is afebrile. He has mentioned he is feeling better. No nausea. Vomiting has improved. He did have a bowel movement. No chest pain, shortness of breath or cough. No abdominal pain or any worsening pain to the neck area. PHYSICAL EXAMINATION: Blood pressure 132/82 with a pulse of 84, temperature 98.2. He is 97% on room air. GENERAL DESCRIPTION: General description is a middle-aged male lying in bed in no distress. RESPIRATORY SYSTEM: Unlabored breathing. Clear to auscultation anteriorly. HEART: S1, S2. Regular rate and rhythm. ABDOMEN: Soft. No tenderness. LABS: Vancomycin random is 27. DIAGNOSTIC IMPRESSION AND PLAN: Patient with MRSA endocarditis and paraspinal abscess, treated conservatively. Currently on vancomycin. That will be continued to finish a 6-week course of therapy. Continue supportive care. MMODL / IJN: [id number] /
[2020-11-16 20:42] LABS: Glucose,Whole Blood 179 mg/dL (75-99)
[2020-11-16] MEDS: GABAPENTIN 300 MG CAP PO SCH (21:35)
[2020-11-16] MEDS: INSULIN DETEMIR (LEVEMIR) 100 UNIT/ML SYR SQ SCH (21:35)
[2020-11-16] MEDS: LIDOCAINE 2% GEL 30 ML TUBE TOPICAL SCH (21:36)
[2020-11-16] MEDS: ATORVASTATIN 40 MG TAB PO SCH (21:36)
[2020-11-16] MEDS: ALPRAZolam 0.25 MG TAB PO PRN (21:47)
[2020-11-16] MEDS: OXYMETAZOLINE 0.05% NASL SPRAY 1 SPRAY BOTTLE EA NOSTRIL PRN (21:48)
[2020-11-16] MEDS: BACLOFEN 10 MG TAB PO PRN (23:36)
[2020-11-16] MEDS: MELATONIN 3 MG TABLET PO SCH (23:40)
[2020-11-17 06:51] LABS: Glucose,Whole Blood 237 mg/dL (75-99)
[2020-11-17] MEDS: SODIUM CHLORIDE 0.9% 1,000 ML IV SCH ×2 (07:07→22:11)
[2020-11-17] MEDS: CYANOCOBALAMIN 1,000 MCG/ML 1 ML VIAL IM SCH (08:21)
[2020-11-17] MEDS: DOCUSATE 100 MG CAP PO SCH ×2 (08:22→22:13)
[2020-11-17] MEDS: PANTOPRAZOLE 40 MG/10 ML VIAL IVP SCH (08:22)
[2020-11-17] MEDS: AMIODARONE 200 MG TAB PO SCH (08:22)
[2020-11-17] MEDS: METOPROLOL TARTRATE 25 MG TAB PO SCH ×2 (08:22→22:14)
[2020-11-17] MEDS: INSULIN ASPART (NovoLOG) 100 UNIT/ML VIAL SQ SCH ×4 (08:23→22:13)
[2020-11-17] MEDS: CHOLESTYRAMINE (WITH SUGAR) 4 GM PACKET PO SCH ×2 (08:29→18:19)
[2020-11-17] MEDS: hydrALAZINE HCL 25 MG TAB PO SCH ×3 (08:30→22:15)
[2020-11-17] MEDS: TRIAMCINOLONE ACET 0.5% CREAM 15 GM TUBE TOPICAL SCH ×2 (08:30→22:15)
[2020-11-17] MEDS: polyethylene glycoL 3350 17 GM POWD.PACK PO SCH (08:30)
--- NOTE | 2020-11-17 08:42 | P.PN ---
Subjective Progress Note Date: 11/17/20 Principal diagnosis: this is a 60-year-old male known to us with ESRD on dialysis Wednesday. He was admitted with change in mental status and congestive heart failure. Also had GI bleed. He is known with type 2 diabetes severe peripheral neuropathy which is disabling according to him, proximal atrial fibrillation coronary artery disease status post cardiac catheterization He states he is feeling fairly well right now except for the severe neuropathy. He has significant edema. He says he is feeling much better denies any fever chills cough shortness of breath nausea vomiting abdominal pain. No diarrhea. His hemoglobin is 7.8 on 11/15/2020 Objective - Vital Signs Vital signs: Vital Signs Temp 97.9 F 11/17/20 07:36 Pulse 73 11/17/20 07:36 Resp 18 11/17/20 07:36 BP 146/76 11/17/20 07:36 Pulse Ox 98 11/17/20 07:36 Intake & Output 11/16/20 11/17/20 11/17/20 18:59 06:59 18:59 Intake Total 708 Output Total 1999 Balance -1292 Intake: Oral 708 Output: Urine 0 Hemodialysis 1999 Other: # Voids 1 0 On examination is awake alert oriented comfortable HEENT exam no JVP neck is supple no facial asymmetry Lungs clear to auscultation good air entry bilaterally Heart sounds unremarkable for any murmur rub gallop Abdomen soft nontender Extremity exam was 2+ edema Neurologically awake alert oriented no asterixis - Labs CBC & Chem 7: 11/15/20 06:26 11/15/20 06:26 Labs: Abnormal Lab Results - Last 24 Hours (Table) 11/16/20 11/16/20 11/16/20 Range/Units 05:23 12:04 16:45 POC Glucose (mg/dL) 141 H 197 H (75-99) mg/dL Iron 60 L (65-175) ug/dL 11/16/20 11/17/20 Range/Units 20:41 06:49 POC Glucose (mg/dL) 179 H 237 H (75-99) mg/dL Iron (65-175) ug/dL Assessment and Plan Assessment: impression 1. ESRD on dialysisWednesday. Was dialyzed yesterday and day before 2. GI bleed.hemoglobin 7.8 hemodynamically stable, and saturations 20% borderline 3. Severe peripheral neuropathy on gabapentin 4. History of coronary artery disease and stenting 5. 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 Recommendation 1. Patient is stable to be discharged. 2. Check CBC. 3. We'll give him 1 dose of Ferrlecit 125 mg once
[2020-11-17] MEDS: ACETAMINOPHEN TAB 325 MG TAB PO PRN (08:45)
[2020-11-17] MEDS: LIDOCAINE 2% GEL 30 ML TUBE TOPICAL PRN (08:45)
[2020-11-17] MEDS ORDERED: SODIUM FERRIC GLUCONAT-SUCROSE 125 MG in SODIUM CHLORIDE 0.9% 100 ML IVPB ONE (09:00)
--- NOTE | 2020-11-17 09:57 | P.PN ---
Subjective Progress Note Date: 11/17/20 This is a 60-year-old male patient of Dr. Mckeon currently residing at [facility] under the care of Dr. 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 Patient was hospitalized in April 2020 at which time he was treated for sepsis a nd MRSA bacteremia of unclear etiology with metabolic encephalopathy vasovagal episode requiring brief CPR and patient was transferred to [facility]. Patient was treated for MRSA osteomyelitis of the lumbar spine. Patient had recent hospitalization September 19 and was transferred on September 30 to be [facility] due to sepsis with persistent MRSA bacteremia secondary to mitral valve vegetation, paraspinal abscess of the C1-C2. Patient was sent from [facility] to the emergency department to be evaluated for significant altered mental status confusion mild competitive and bizarre behavior could not keep him awake and could not finish dialysis day early because of the hypotension and severe tiredness. Was seen and evaluated and was sent back to [facility] while he still on the stretcher in [facility] before getting back to his bed patient could not being kept awake had severe change at the time was decided to send him back to the emergency room again. Patient was seen and evaluated the second time found to have mild hypotension severe confusion severe uremia and slightly but worsening anemia. Patient was started on gentle hydration consult nephrology for urgent dialysis patient to be continue his vancomycin for the endocarditis and to be seen infectious disease and cardiology. 11/12: Patient currently had 2 large tarry bowel movements this morning. Hemoglobin came back at 6.8 and he has been ordered for 2 units of packed RBCs. Patient continues to be lethargic. His blood pressure this morning was 77/47 but did recover to 122/77 and he did start hemodialysis this morning. Plan is for removal of 3 L of fluid. Patient has been afebrile, heart rate 72, pulse ox 98% on room air. WBC 10.9, hemoglobin 224. Sodium 136, potassium 6, chloride 97, CO2 14, BUN 157, creatinine 6.48. Blood sugars in the 170s. Magnesium 2.5. Alkaline phosphatase 131. ProBNP 32,200. Stool occult for occult blood was positive. Stool for occult blood was positive. 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 11/13: Patient remains in the intensive care unit. He underwent hemodialysis yesterday had repeat today with no plan for removal of fluid today. The patient's blood pressure was low this morning even after midodrine and patient had a syncopal episode according to his dialysis nurse. Patient is sitting in recliner and mental status is improved today but not back to baseline. He has been afebrile, heart rate 69, blood pressure 122/55, pulse ox 97% on 3 L nasal cannula. Repeat blood work reveals WBC of 8.1, hemoglobin 8.1, platelet count 176. CO2 19 otherwise electrolytes are normal. BUN 96 and creatinine 4.28. Blood sugars are running between 127 and 168. Patient is seen and followed by multiple consultants including neurology for toxic metabolic encephalopathy. He has been seen by cardiology and judie is on hold. GI is following. Plan is for EGD on Wednesday. 11/14: Patient is seen today on the MedSurg floor, he sitting on edge of the bed leaning on his bedside table, mental status is significantly improved. He states that he is not receiving dialysis today. He is scheduled for EGD tomorrow afternoon. Patient states that he is feeling better today he is having diarrhea for which Pooja added. Patient is afebrile, heart rate 59, blood pressure 84/51, pulse ox 95% on room air. Capillary blood glucose running between 107 and 244. Repeat blood work will be ordered for tomorrow. He is continued on vancomycin, pharmacy dosing for endocarditis. We'll plan for p ossible discharge back to [facility] tomorrow after EGD tomorrow. 11/15: Repeat blood work reveals WBC of 8.8, hemoglobin 7.8, platelet count 206. Sodium 135, potassium 4.8, chloride 97, CO2 23, BUN 82 and creatinine 4.94. Capillary blood glucose running between 133 and 286. Alkaline phosphatase 133. Patient has been afebrile, heart rate 67, blood pressure 108/61, pulse ox 92-98% on room air. Patient is scheduled for EGD today with Dr. Ramana Storey. Annia Llamas is undergoing hemodialysis today. Patient started feeling bad with headache, numbness in his legs and arms and hemodialysis was stopped early today. Dr. Nguyen is planning on repeat dialysis tomorrow with removal of 2 L. 11/16: Patient was upset that his gabapentin cannot been decreased. He is having significant amounts of lower extremity pain especially at night. This is not allowing him to be able to sleep because of his neuropathy pain. Lidocaine gel to be applied at night to bilateral feet to assist with pain control. Continue dialysis daily. Patient states that he is feeling better with no complaints he is in no acute distress. She remains afebrile, heart rate 64, respirations 16, blood pressure 143/82 pulse ox 95% on room air 11/17: Patient is found sitting up at the side of the bed. He states that his leg discomfort has improved slightly compared to yesterday. He continues to have significant amount of swelling to the bilateral lower extremities from the knees to the toes. Patient states that utilizing a Carlos A wrap is uncomfortable. After a lengthy discussion patient agreed to have Carlos A wraps applied. Patient will have dialysis today. The plan is for him to return to [facility] on Wednesday. Patient remains afebrile. Heart rate 73, respirations 18, blood pressure 146/76, pulse oxing 98% on room air. REVIEW OF SYSTEMS Constitutional: no fever, no chills, no night sweats. Significant weight gain and fluid retention. Reported weakness, reported fatigue Reported lethargy. Reported daytime sleepiness. Reports bilateral foot pains especially at night unable to sleep EENT: No headache. He has lack of vision in one of his eyes.. No loss of Hearing, no ringing in the ears, no dizziness. No nasal drainage or congestion. No epistaxis. No sore throat. Lungs: Significant shortness of breath mild PND or wheezes. Cardiovascular: Positive fluid retention, PND, orthopnea, lightheadedness and dizziness with no syncope no significant chest pain but significant shortness of breath and dyspnea. Abdominal: Slight abdominal pain with distention and mild nausea no vomiting positive reported tarry stool and significant change in bowel habit. Genitourinary: Doesn't make much urine because of end-stage renal disease no burning or discomfort. Musculoskeletal: Positive myalgia muscle and generalized fatigue. Integumentary: Significant edema and water retention lower extremity with slight discoloration from the knee down. Neurologic: No aphasia. No facial droop. Back to baseline mentation. No head injury. No headache. No paralysis. No paresthesia. Psychiatric: Mild depression confusion with no anxiety. Endocrine: Noted abnormal blood sugars. No weight change. PHYSICAL EXAMINATION Gen: This is a 60-year-old male patient resting in bed. He appears to be in no acute distress. He appears fatigued. HEENT: Head is atraumatic, normocephalic. Pupils equal, round. Sclerae is anicteric. NECK: Supple. No JVD. No lymphadenopathy. No thyromegaly. LUNGS: Decreased expansion bilaterally with fine rhonchi positive mild crackles basis has not spread wheezes. HEART: Regular rate and rhythm. 2/6 systolic murmur with mild tachycardia.. ABDOMEN: Soft positive bowel sounds slight distention with no rebound or rigidity. EXTREMITIES: 1+ pedal edema with slight arthritis slight discoloration from the knee down. NEUROLOGICAL: Patient is awake alert and oriented 3. Cranial nerves 2 through 12 are grossly intact. ASSESSMENT AND PLAN 1. Acute toxic metabolic encephalopathy: Multifactorial combination of endocarditis, infection, end-stage renal disease with uremia, fluid overload and CHF, anemia possible GI bleed. 2. Shortness of breath secondary to fluid overload from missed dialysis treatment will consult with nephrology appreciated, continue hemodialysis. 3. Acute GI bleed with tarry stool hemoglobin is down to 6.8. Status post transfusion of 2 units of packed RBCs, GI consult appreciated, monitor hemoglo bin. EGD scheduled for Wednesday. Hold eliquis. 4. Worsening uremia: Secondary to end-stage renal disease with missing dialysis more often. 5. 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 Patient was transferred to [facility] and return to [facility] to complete 4 week course of IV vancomycin with dialysis. Antibiotic course started on October 19. Consult with Dr. Presley appreciated. 6. Metabolic encephalopathy secondary to uremia, fluid overload, anemia and hypertension, will try to treat underlying disease and evaluated patient patient will be seen neurology as well. 7. Recent treatment for MRSA bacteremia and lumbar spine osteomyelitis, completed course of antibiotics. 8. End-stage renal disease on hemodialysis. Consult with nephrology appreciated. Continue PhosLo 667 mg 3 times daily, Aranesp 40 g subcu every 7 days, hemodialysis. Patient had missed dialysis recently because of hypertension and a change mental status. 9. Degenerative disc disease and spinal stenosis. Continue gabapentin 300 mg at bedtime. Continue baclofen 5 mg every 8 hours as needed. 10. History of coronary artery disease with previous PTCA to LAD and circumflex. Continue aspirin 81 mg daily, atorvastatin 40 mg at bedtime, Lopressor 25 mg twice daily. 11. Paroxysmal atrial fibrillation. Continue eliquis 2.5 mg twice daily-on hold, continue Lopressor, amiodarone 200 mg daily pulse rates under control at this point. 12. Ischemic cardiomyopathy. Continue Lopressor, Lasix 80 mg twice daily, metolazone 5 mg daily. 13. Diabetes mellitus type 2, insulin requiring. Continue Levemir 5 units at bedtime, add NovoLog scale before meals and at bedtime, 14. Hypertension. Continue hydralazine 75 mg 3 times daily. 15. Anemia of chronic disease. Continue ferrous sulfate 325 mg twice daily. Along with Aranesp 40 g subcu every 7 days. 16. Neuropathy to bilateral feet. Lidocaine gel to bilateral feet at bedtime, Carlos A wraps to bilateral lower extremities. 17. GI prophylaxis. Continue Protonix. 18. DVT prophylaxis. Was on Eliquis which will be held for now. 19. Covid 19 testing: Negative. Prognosis: guarded. CODE STATUS: DO NOT RESUSCITATE. DISCHARGE PLAN Return to [facility]. Patient may go back to [facility] and transition to hospice care. Social work will be talking to the patient's today regarding this as she was told by [place] to contact social work here in the hospital. Patient would be appropriate for hospice care. Anticipate discharge back to [facility] on Wednesday Impression and plan of care have been directed as dictated by the signing physician. Karina Aponte nurse practitioner acting as scribe for signing physician. Objective - Vital Signs Vital signs: Vital Signs Temp 97.9 F 11/17/20 07:36 Pulse 73 11/17/20 07:36 Resp 18 11/17/20 07:36 BP 146/76 11/17/20 07:36 Pulse Ox 98 11/17/20 07:36 Intake & Output 11/16/20 11/17/20 11/17/20 18:59 06:59 18:59 Intake Total 708 Output Total 1999 Balance -1292 Intake: Oral 708 Output: Urine 0 Hemodialysis 2000 Other: # Voids 1 0 - Labs CBC & Chem 7: 11/15/20 06:26 11/15/20 06:26 Labs: Abnormal Lab Results - Last 24 Hours (Table) 11/16/20 11/16/20 11/16/20 Range/Units 05:23 12:04 16:45 POC Glucose (mg/dL) 141 H 197 H (75-99) mg/dL Iron 60 L (65-175) ug/dL 11/16/20 11/17/20 Range/Units 20:41 06:49 POC Glucose (mg/dL) 179 H 237 H (75-99) mg/dL Iron (65-175) ug/dL
[2020-11-17 11:39] LABS: Glucose,Whole Blood 99 mg/dL (75-99)
[2020-11-17] MEDS: BUTALB/APAP/CAFF 50-325-40MG TAB PO PRN ×2 (12:02→18:19)
[2020-11-17] MEDS: hydrOXYzine HCL 25 MG TAB PO PRN (12:02)
[2020-11-17] MEDS: LACTATED RINGERS 1,000 ML IV SCH ×2 (14:40→22:12)
[2020-11-17 16:28] LABS: Glucose,Whole Blood 158 mg/dL (75-99)
[2020-11-17] MEDS ORDERED: VANCOMYCIN 1,500 MG in SODIUM CHLORIDE 0.9% 250 ML IVPB ONE (18:00)
[2020-11-17] MEDS: ASPIRIN 81 MG PO SCH (18:19)
[2020-11-17] MEDS: FERROUS SULFATE 325 MG TAB PO SCH (18:20)
--- NOTE | 2020-11-17 18:58 | PN ---
PROGRESS NOTE DATE OF SERVICE: 11/17/2020 REASON FOR FOLLOW UP: MRSA pericarditis and paraspinal abscess. INTERVAL HISTORY: The patient is afebrile. The patient is feeling better. Breathing comfortably. Denies having any chest pain, shortness of breath or cough. No nausea, vomiting, abdominal pain or diarrhea. PHYSICAL EXAMINATION: Blood pressure 132/78 with a pulse of 80, temperature of 98.5. He is 95% on room air. General description is a middle-aged male up in the bed in no distress. Respiratory system: Unlabored breathing, clear to auscultation anteriorly. Heart S1, S2. Regular rate and rhythm. Abdomen soft, no tenderness. LAB: Vanco random is 21.8. DIAGNOSTIC IMPRESSION AND PLAN: Patient with a MRSA bacteremia secondary to mitral valve endocarditis and paraspinal abscess, has been treated medically. No surgical intervention was done at the tertiary care. The patient ( ) vancomycin finish a 6 week course of therapy and close outpatient followup. MMODL / IJN: [id number] /
[2020-11-17 20:21] LABS: Glucose,Whole Blood 212 mg/dL (75-99)
[2020-11-17] MEDS: ATORVASTATIN 40 MG TAB PO SCH (22:13)
[2020-11-17] MEDS: GABAPENTIN 300 MG CAP PO SCH (22:13)
[2020-11-17] MEDS: INSULIN DETEMIR (LEVEMIR) 100 UNIT/ML SYR SQ SCH (22:13)
[2020-11-17] MEDS: MELATONIN 3 MG TABLET PO SCH (22:14)
[2020-11-17] MEDS: LIDOCAINE 2% GEL 30 ML TUBE TOPICAL SCH (22:14)
[2020-11-18] MEDS: BUTALB/APAP/CAFF 50-325-40MG TAB PO PRN (02:22)
[2020-11-18 06:42] LABS: Glucose,Whole Blood 172 mg/dL (75-99)
[2020-11-18] MEDS: CHOLESTYRAMINE (WITH SUGAR) 4 GM PACKET PO SCH ×2 (08:35→17:20)
[2020-11-18] MEDS: TRIAMCINOLONE ACET 0.5% CREAM 15 GM TUBE TOPICAL SCH ×2 (08:36→21:06)
[2020-11-18] MEDS: INSULIN ASPART (NovoLOG) 100 UNIT/ML VIAL SQ SCH ×5 (08:41→20:57)
[2020-11-18] MEDS: DOCUSATE 100 MG CAP PO SCH ×2 (08:42→20:58)
[2020-11-18] MEDS: AMIODARONE 200 MG TAB PO SCH (08:42)
[2020-11-18] MEDS: PANTOPRAZOLE 40 MG/10 ML VIAL IVP SCH (08:42)
[2020-11-18] MEDS: METOPROLOL TARTRATE 25 MG TAB PO SCH ×2 (08:42→20:58)
[2020-11-18] MEDS: polyethylene glycoL 3350 17 GM POWD.PACK PO SCH (08:42)
[2020-11-18] MEDS: hydrALAZINE HCL 25 MG TAB PO SCH ×3 (08:42→21:06)
[2020-11-18] MEDS: CYANOCOBALAMIN 1,000 MCG/ML 1 ML VIAL IM SCH (08:42)
--- NOTE | 2020-11-18 10:22 | P.PN ---
Subjective Patient is seen in follow-up for end-stage renal disease. He is maintained on hemodialysis on Wednesday schedule. Currently sitting up in bed. No chest pain or shortness of breath. No vomiting or diarrhea. Blood pressure stable. Denies any active bleeding. Vital signs are stable. General: The patient appeared well nourished and normally developed. HEENT: Head exam is unremarkable. Neck is without jugular venous distension. LUNGS: Breath sounds decreased. HEART: Rate and Rhythm are regular. ABDOMEN: Soft, no distention. EXTREMITITES: 1+ edema. Objective - Vital Signs Vital signs: Vital Signs Temp 99.7 F H 11/18/20 07:08 Pulse 69 11/18/20 07:08 Resp 18 11/18/20 07:08 BP 157/77 11/18/20 07:08 Pulse Ox 95 11/18/20 07:08 Intake & Output 11/17/20 11/18/20 11/18/20 18:59 06:59 18:59 Other: # Voids 1 0 # Bowel Movements 1 - Labs CBC & Chem 7: 11/15/20 06:26 11/15/20 06:26 Labs: Abnormal Lab Results - Last 24 Hours (Table) 11/17/20 11/17/20 11/18/20 Range/Units 16:27 20:19 06:39 POC Glucose (mg/dL) 158 H 212 H 172 H (75-99) mg/dL Assessment and Plan Plan: Assessment: 1. End-stage renal disease maintained on hemodialysis on Wednesday schedule. 2. Acute GI bleed status post EGD which revealed antral gastritis. Status post blood transfusion this admission. On . 3. History of A. fib. 4. Diabetes mellitus. 5. Hypertension with chronic kidney disease. 6. MRSA bacteremia secondary to mitral valve endocarditis and paraspinal abscess on antibiotics. Plan: Hemodialysis tomorrow. Monitor vancomycin levels. Target level near 15. Check phosphorus level.
[2020-11-18 11:27] LABS: Glucose,Whole Blood 156 mg/dL (75-99)
[2020-11-18] MEDS: HYDROcodone/APAP 5-325MG 1 EACH TAB PO PRN (12:11)
--- NOTE | 2020-11-18 13:32 | P.PN ---
Subjective Progress Note Date: 11/18/20 Subjective Progress Note Date: 11/17/20 This is a 60-year-old male patient of Dr. Mckeon currently residing at [facility] under the care of Dr. 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 Patient was hospitalized in April 2020 at which time he was treated for sepsis and MRSA bacteremia of unclear etiology with metabolic encephalopathy vasovagal episode requiring brief CPR and patient was transferred to [facility]. Patient was treated for MRSA osteomyelitis of the lumbar spine. Patient had recent hospitalization September 19 and was transferred on September 30 to be [facility] due to sepsis with persistent MRSA bacteremia secondary to mitral valve vegetation, paraspinal abscess of the C1-C2. Patient was sent from [facility] to the emergency department to be evaluated for significant altered mental status confusion mild competitive and bizarre behavior could not keep him awake and could not finish dialysis day early because of the hypotension and severe tiredness. Was seen and evaluated and was sent back to [facility] while he still on the stretcher in [facility] before getting back to his bed patient could not being kept awake had severe change at the time was decided to send him back to the emergency room again. Patient was seen and evaluated the second time found to have mild hypotension severe confusion severe uremia and slightly but worsening anemia. Patient was started on gentle hydration consult nephrology for urgent dialysis patient to be continue his vancomycin for the endocarditis and to be seen infectious disease and cardiology. 11/12: Patient currently had 2 large tarry bowel movements this morning. Hemogl obin came back at 6.8 and he has been ordered for 2 units of packed RBCs. Patient continues to be lethargic. His blood pressure this morning was 77/47 but did recover to 122/77 and he did start hemodialysis this morning. Plan is for removal of 3 L of fluid. Patient has been afebrile, heart rate 72, pulse ox 98% on room air. WBC 10.9, hemoglobin 224. Sodium 136, potassium 6, chloride 97, CO2 14, BUN 157, creatinine 6.48. Blood sugars in the 170s. Magnesium 2.5. Alkaline phosphatase 131. ProBNP 32,200. Stool occult for occult blood was positive. Stool for occult blood was positive. 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 11/13: Patient remains in the intensive care unit. He underwent hemodialysis yesterday had repeat today with no plan for removal of fluid today. The patient's blood pressure was low this morning even after midodrine and patient had a syncopal episode according to his dialysis nurse. Patient is sitting in recliner and mental status is improved today but not back to baseline. He has been afebrile, heart rate 69, blood pressure 122/55, pulse ox 97% on 3 L nasal cannula. Repeat blood work reveals WBC of 8.1, hemoglobin 8.1, platelet count 176. CO2 19 otherwise electrolytes are normal. BUN 96 and creatinine 4.28. Blood sugars are running between 127 and 168. Patient is seen and followed by multiple consultants including neurology for toxic metabolic encephalopathy. He has been seen by cardiology and judie is on hold. GI is following. Plan is for EGD on Wednesday. 11/14: Patient is seen today on the MedSurg floor, he sitting on edge of the bed leaning on his bedside table, mental status is significantly improved. He states that he is not receiving dialysis today. He is scheduled for EGD tomorr ow afternoon. Patient states that he is feeling better today he is having diarrhea for which Pooja added. Patient is afebrile, heart rate 59, blood pressure 84/51, pulse ox 95% on room air. Capillary blood glucose running between 107 and 244. Repeat blood work will be ordered for tomorrow. He is continued on vancomycin, pharmacy dosing for endocarditis. We'll plan for possible discharge back to [facility] tomorrow after EGD tomorrow. 11/15: Repeat blood work reveals WBC of 8.8, hemoglobin 7.8, platelet count 206. Sodium 135, potassium 4.8, chloride 97, CO2 23, BUN 82 and creatinine 4.94. Capillary blood glucose running between 133 and 286. Alkaline phosphatase 133. Patient has been afebrile, heart rate 67, blood pressure 108/61, pulse ox 92-98% on room air. Patient is scheduled for EGD today with Dr. Ramana Storey. Annia Llamas is undergoing hemodialysis today. Patient started feeling bad with headache, numbness in his legs and arms and hemodialysis was stopped early today. Dr. Nguyen is planning on repeat dialysis tomorrow with removal of 2 L. 11/16: Patient was upset that his gabapentin cannot been decreased. He is having significant amounts of lower extremity pain especially at night. This is not allowing him to be able to sleep because of his neuropathy pain. Lidocaine gel to be applied at night to bilateral feet to assist with pain control. Continue dialysis daily. Patient states that he is feeling better with no complaints he is in no acute distress. She remains afebrile, heart rate 64, respirations 16, blood pressure 143/82 pulse ox 95% on room air 11/17: Patient is found sitting up at the side of the bed. He states that his leg discomfort has improved slightly compared to yesterday. He continues to have significant amount of swelling to the bilateral lower extremities from the knees to the toes. Patient states that utilizing a Carlos A wrap is uncomfortable. After a lengthy discussion patient agreed to have Carlos A wraps applied. Patient will have dialysis today. The plan is for him to return to [facility] on Wednesday. Patient remains afebrile. Heart rate 73, respirations 18, blood pressure 146/76, pulse oxing 98% on room air. 11/18: Patient is seen and covered up, with a blanket over his head and shoulders, patient has some chills, noted to have a T-max of 99.7, discharged to skilled ECF was canceled today in view of this, but. Blood cultures dated today, patient is still on IV vancomycin,, as per Dr. Enciso, surgical intervention was requested for the endocarditis, however patient refused this option. He is nearing the end of his IV treatment, for the endocarditis, which would be completed approximately prior to December 01. No diarrhea, patient does not have any urine output, no new skin infection, there is significant edema in both legs, as the patient stated sleeps sitting in a chair REVIEW OF SYSTEMS Constitutional: no fever, no chills, no night sweats. Significant weight gain and fluid retention. Reported weakness, reported fatigue Reported lethargy. Reported daytime sleepiness. Reports bilateral foot pains especially at night unable to sleep EENT: No headache. He has lack of vision in one of his eyes.. No loss of Hearing, no ringing in the ears, no dizziness. No nasal drainage or congestion. No epistaxis. No sore throat. Lungs: Significant shortness of breath mild PND or wheezes. Cardiovascular: Positive fluid retention, PND, orthopnea, lightheadedness and dizziness with no syncope no significant chest pain but significant shortness of breath and dyspnea. Abdominal: Slight abdominal pain with distention and mild nausea no vomiting positive reported tarry stool and significant change in bowel habit. Genitourinary: Doesn't make much urine because of end-stage renal disease no burning or discomfort. Musculoskeletal: Positive myalgia muscle and generalized fatigue. Integumentary: Significant edema and water retention lower extremity with slight discoloration from the knee down. Neurologic: No aphasia. No facial droop. Back to baseline mentation. No head injury. No headache. No paralysis. No paresthesia. Psychiatric: Mild depression confusion with no anxiety. Endocrine: Noted abnormal blood sugars. No weight change. Objective - Vital Signs Vital signs: Vital Signs Temp 99.7 F H 11/18/20 07:08 Pulse 69 11/18/20 07:08 Resp 18 11/18/20 08:00 BP 157/77 11/18/20 07:08 Pulse Ox 95 11/18/20 07:08 Intake & Output 11/17/20 11/18/20 11/18/20 18:59 06:59 18:59 Other: # Voids 1 0 # Bowel Movements 1 - Constitutional General appearance: Present: cooperative, no acute distress - EENT Eyes: Present: EOMI, PERRLA, normal appearance ENT: Present: NA/AT, normal oropharynx - Neck Neck: Present: normal ROM - Respiratory Respiratory: bilateral: CTA, negative: diminished, dullness - Cardiovascular Rhythm: irregularly irregular Abnormal Heart Sounds: Present: systolic murmur - Gastrointestinal General gastrointestinal: Present: normal bowel sounds, soft - Integumentary Integumentary: Present: decreased turgor, normal - Neurologic Neurologic: Present: CNII-XII intact - Musculoskeletal Musculoskeletal: Present: generalized weakness, strength equal bilaterally - Psychiatric Psychiatric: Present: A&O x's 3, appropriate affect - Labs CBC & Chem 7: 11/15/20 06:26 11/15/20 06:26 Labs: Abnormal Lab Results - Last 24 Hours (Table) 11/13/20 11/17/20 11/17/20 Range/Units 03:57 16:27 20:19 POC Glucose (mg/dL) 158 H 212 H (75-99) mg/dL Phosphorus (2.5-4.5) mg/dL Vitamin B6 2 L (5-50) ug/L 11/18/20 11/18/20 11/18/20 Range/Units 06:39 08:27 11:26 POC Glucose (mg/dL) 172 H 156 H (75-99) mg/dL Phosphorus 5.1 H (2.5-4.5) mg/dL Vitamin B6 (5-50) ug/L Assessment and Plan Plan: . Acute toxic metabolic encephalopathy: Multifactorial combination of endocarditis, infection, end-stage renal disease with uremia, fluid overload and CHF, anemia possible GI bleed. 2. Shortness of breath secondary to fluid overload from missed dialysis treatment will consult with nephrology appreciated, continue hemodialysis. 3. Acute GI bleed with tarry stool hemoglobin is down to 6.8. Status post transfusion of 2 units of packed RBCs, GI consult appreciated, monitor hemoglobin. EGD scheduled for Wednesday. Hold eliquis. 4. Worsening uremia: Secondary to end-stage renal disease with missing dialysis more often. 5. 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 Patient was transferred to [facility] and return to [facility] to complete 4 week course of IV vancomycin with dialysis. Antibiotic course started on October 19. Consult with Dr. Presley appreciated. 6. New recurrent fevers, Cultures on 11/18, underlying endocarditis, completing IV antibiotics, in early November Dr. Enciso on consult 6. Metabolic encephalopathy secondary to uremia, fluid overload, anemia and hypertension, will try to treat underlying disease and evaluated patient patient will be seen neurology as well. 7. Recent treatment for MRSA bacteremia and lumbar spine osteomyelitis, completed course of antibiotics. 8. End-stage renal disease on hemodialysis. Consult with nephrology appreciated. Continue PhosLo 667 mg 3 times daily, Aranesp 40 g subcu every 7 days, hemodialysis. Patient had missed dialysis recently because of hypertension and a change mental status. 9. Degenerative disc disease and spinal stenosis. Continue gabapentin 300 mg at bedtime. Continue baclofen 5 mg every 8 hours as needed. 10. History of coronary artery disease with previous PTCA to LAD and circumflex. Continue aspirin 81 mg daily, atorvastatin 40 mg at bedtime, Lopressor 25 mg twice daily. 11. Paroxysmal atrial fibrillation. Continue eliquis 2.5 mg twice daily-on hold, continue Lopressor, amiodarone 200 mg daily pulse rates under control at this point. 12. Ischemic cardiomyopathy. Continue Lopressor, Lasix 80 mg twice daily, metolazone 5 mg daily. 13. Diabetes mellitus type 2, insulin requiring. Continue Levemir 5 units at bedtime, add NovoLog scale before meals and at bedtime, 14. Hypertension. Continue hydralazine 75 mg 3 times daily. 15. Anemia of chronic disease. Continue ferrous sulfate 325 mg twice daily. Along with Aranesp 40 g subcu every 7 days. 16. Neuropathy to bilateral feet. Lidocaine gel to bilateral feet at bedtime, Carlos A wraps to bilateral lower extremities. 17. GI prophylaxis. Continue Protonix. 18. DVT prophylaxis. Was on Eliquis which will be held for now. 19. Covid 19 testing: Negative. Prognosis: guarded. CODE STATUS: DO NOT RESUSCITATE. DISCHARGE PLAN Return to [facility]. Patient may go back to [facility] and transition to hospice care. Social work will be talking to the patient's today regarding this as she was told by [employer] to contact social work here in the hospital. Patient would be appropriate for hospice care. Anticipate discharge back to [facility] on Wednesday
[2020-11-18 14:37] VITALS: BMI 34.8
[2020-11-18 14:37] LABS: Glucose,Whole Blood 162 mg/dL (75-99)
--- NOTE | 2020-11-18 15:17 | XR ---
EXAMINATION TYPE: XR chest 1V DATE OF EXAM: 11/18/2020 COMPARISON: 11/12/2020 INDICATION: Increased lethargy TECHNIQUE: Single frontal view of the chest is obtained. FINDINGS: The heart size is mildly prominent. The pulmonary vasculature is normal. There is a mild left lower lobe infiltrate retrocardiac region. IMPRESSION: 1. Mild left lower lobe infiltrate. Correlate for pneumonia or atelectasis. Follow-up is recommended.
[2020-11-18] MEDS: SODIUM CHLORIDE 0.9% 1,000 ML IV SCH (15:20)
[2020-11-18] MEDS: LACTATED RINGERS 1,000 ML IV SCH (15:20)
--- NOTE | 2020-11-18 15:42 | P.PN ---
Subjective Progress Note Date: 11/18/20 11/18/2020, the patient was found to be briefly unresponsive and I was asked to evaluate this patient. Apparently the nursing staff tried to wake him up and he was unarousable. He was lethargic. By the time I arrived to the bedside, the patient was fully awake and alert and he was following commands and answering questions and he seemed to be 40 appropriate. He was on room air oxygen. An immediate chest x-ray was done and showed no acute abnormalities. He was afebrile. He was hemodynamically stable. Blood cultures were negative and the patient was given vancomycin with a vancomycin trough level being at 21.8 from 11/17/2020. Repeat blood cultures of been negative. The patient denies having any complaints. He was getting hemodialysis on a regular basis. No chest pain. No neck pain. No skin rashes. No pulmonary wounds or ulceration. In terms of his blood work, the blood sugar from today was 162, phosphorus level was 5.1. No other blood work was available. Asked the nurses to obtain a set of blood work. Neurologic is fully awake and alert is moving all 4 extremities without any limitation. Objective - Vital Signs Vital signs: Vital Signs Temp 99 F 11/18/20 14:34 Pulse 65 11/18/20 14:34 Resp 18 11/18/20 14:34 BP 112/55 11/18/20 14:34 Pulse Ox 93 L 11/18/20 14:34 Intake & Output 11/17/20 11/18/20 11/18/20 18:59 06:59 18:59 Weight 97.9 kg Other: # Voids 1 0 # Bowel Movements 1 - Exam No acute distress, sleepy and lethargic, but does arouse. Currently on room air with saturations 99%. HEENT examination is grossly unremarkable. Neck supple. Full range of motion. No adenopathy thyromegaly or neck vein distention. Cardiovascular examination reveals regular rhythm rate. S1-S2 normal. No S3 or S4. No discernible murmur noted. Heart sounds distant. Heart rate 56 bpm. Lungs reveal mostly clear breath sounds. Scattered rhonchi are noted. No wheezes or crackles. Breath sounds equal bilaterally. Abdomen soft bowel sounds are heard. No masses or tenderness. Extremities reveal 2+ pitting edema. There is also some chronic venous stasis changes. No cyanosis or clubbing. Skin is without rash or lesion. Neurologic examination reveals a awake and alert male. - Labs CBC & Chem 7: 11/15/20 06:26 11/15/20 06:26 Labs: Abnormal Lab Results - Last 24 Hours (Table) 11/13/20 11/17/20 11/17/20 Range/Units 03:57 16:27 20:19 POC Glucose (mg/dL) 158 H 212 H (75-99) mg/dL Phosphorus (2.5-4.5) mg/dL Vitamin B6 2 L (5-50) ug/L 11/18/20 11/18/20 11/18/20 Range/Units 06:39 08:27 11:26 POC Glucose (mg/dL) 172 H 156 H (75-99) mg/dL Phosphorus 5.1 H (2.5-4.5) mg/dL Vitamin B6 (5-50) ug/L 11/18/20 Range/Units 14:35 POC Glucose (mg/dL) 162 H (75-99) mg/dL Phosphorus (2.5-4.5) mg/dL Vitamin B6 (5-50) ug/L Assessment and Plan Plan: 1 Fluctuating mentation due to a component of metabolic encephalopathy and the patient with known metabolic derangements including an incisional disease, sepsis secondary to endocarditis for which the patient has been receiving vancomycin on outpatient basis. Currently is fully awake and alert and is following commands and answering questions. Chest x-rays clear. No signs of any respiratory distress. No hemodynamic instability. 2 acute GI bleed with secondary Acute on chronic anemia, to receive 2 units of PRBCs. The patient underwent EGD and the EGD showed 1 cm polyp in the pylorus without evidence of any acute bleed. There is also antral gastritis and small antral polyps. For now, hemoglobin from 11/15/2020 has been 7.8 and the patient is currently off anticoagulation. 3 End-stage renal disease, currently on 3 time a week hemodialysis. 4 Episode in March of this year, of cardiopulmonary arrest, with brief cardiopulmonary resuscitation and return of spontaneous circulation. 5 History of atrial fibrillation. The patient was maintained on Eliquis on outpatient basis and this was discontinued following his recent GI bleed 6 History of CAD, status post stent placement. 7 History of CHF. 8 History of diabetes mellitus. 9 MRSA bacteremia with mitral valve endocarditis and lumbar spine osteomyelitis. The patient also had a questionable paraspinal abscess involving the C1/C2 spine. The patient was seen and examined Rima to return back to my with to complete his antibiotic course. He was being followed up by infectious disease and an outpatient basis 10 History of deafness. 11 History of hyperlipidemia. 12 History of hypertension. 13 Her history of myocardial infarction. 14 History of syncope. 15 History of gout. 16 Multiple other medical problems and comorbidities. Plan Monitor mental status Continue antibiotics Continue hemodialysis per nephrology No need to transfer to the ICU. Neurologic dysfunctions are stable. Hemodynamically stable. Follow-up with medicine. Follow-up with nephrology and infectious disease.
[2020-11-18 16:21] LABS: ABG Base Excess 2.6 mmol/L; ABG HCO3 27 mmol/L (21-25); ABG Oxygen Saturation 84.7 % (94-97); ABG PCO2 42 mmHg (35-45); ABG PH 7.42 (7.35-7.45); ABG TCO2 29 mmol/L (19-24); Allen Test Performed? Yes
[2020-11-18 16:24] LABS: Glucose,Whole Blood 166 mg/dL (75-99)
[2020-11-18 16:24] LABS: ABG PO2 49 mmHg (83-108)
[2020-11-18] MEDS: FERROUS SULFATE 325 MG TAB PO SCH (17:20)
[2020-11-18] MEDS: ASPIRIN 81 MG PO SCH (17:20)
[2020-11-18 20:51] LABS: Glucose,Whole Blood 215 mg/dL (75-99)
[2020-11-18] MEDS: INSULIN DETEMIR (LEVEMIR) 100 UNIT/ML SYR SQ SCH (20:57)
[2020-11-18] MEDS: ATORVASTATIN 40 MG TAB PO SCH (20:58)
[2020-11-18] MEDS: MELATONIN 3 MG TABLET PO SCH (20:58)
[2020-11-18] MEDS: GABAPENTIN 300 MG CAP PO SCH (20:58)
[2020-11-18] MEDS: LIDOCAINE 2% GEL 30 ML TUBE TOPICAL SCH (21:06)
[2020-11-19] MEDS: ACETAMINOPHEN TAB 325 MG TAB PO PRN (00:44)
[2020-11-19] MEDS: BUTALB/APAP/CAFF 50-325-40MG TAB PO PRN ×2 (03:59→14:41)
--- NOTE | 2020-11-19 06:03 | PN ---
PROGRESS NOTE DATE OF SERVICE: 11/18/2020 REASON FOR FOLLOWUP: MRSA bacteremia secondary to endocarditis and cervical paraspinal abscess. INTERVAL HISTORY: Patient did have a low-grade fever of 99.7 this morning. The patient complaining of feeling chilled. Denies having any headache or neck pain. No chest pain, shortness of breath or cough. Some nausea but no vomiting. No abdominal pain. No diarrhea. PHYSICAL EXAMINATION: Blood pressure 99/55 with a pulse of 73, temperature 98.9. He is 95% on 2 L nasal cannula. General description is a middle-aged male up in the bed in no distress. Respiratory system: Unlabored breathing with decreased breath sounds on the base. No wheeze. Heart S1, S2. Regular rate and rhythm. Abdominal soft. No tenderness. Extremities: No edema of the feet. LABS: Hemoglobin is 7.8, white count of 8.87. DIAGNOSTIC IMPRESSION AND PLAN: Patient with MRSA bacteremia secondary to mitral valve endocarditis and cervical paraspinal abscess that has been treated medically. The patient is covered with vancomycin with low-grade fever and chills and the patient may benefit from a repeat MRI of cervical spine. Will discuss with sde contrast for better results. Continue supportive care. MMODL / IJN: [id number] /
[2020-11-19 06:55] LABS: Glucose,Whole Blood 112 mg/dL (75-99)
[2020-11-19] MEDS: INSULIN ASPART (NovoLOG) 100 UNIT/ML VIAL SQ SCH ×4 (07:37→22:05)
[2020-11-19] MEDS: TRIAMCINOLONE ACET 0.5% CREAM 15 GM TUBE TOPICAL SCH ×2 (07:41→21:47)
[2020-11-19] MEDS: hydrALAZINE HCL 25 MG TAB PO SCH ×3 (07:41→21:22)
[2020-11-19] MEDS: polyethylene glycoL 3350 17 GM POWD.PACK PO SCH (07:43)
[2020-11-19] MEDS: PANTOPRAZOLE 40 MG/10 ML VIAL IVP SCH (07:48)
[2020-11-19] MEDS: AMIODARONE 200 MG TAB PO SCH (07:49)
[2020-11-19] MEDS: METOPROLOL TARTRATE 25 MG TAB PO SCH ×2 (07:49→21:22)
[2020-11-19] MEDS: CHOLESTYRAMINE (WITH SUGAR) 4 GM PACKET PO SCH ×2 (07:49→16:44)
[2020-11-19] MEDS: CYANOCOBALAMIN 1,000 MCG/ML 1 ML VIAL IM SCH (07:49)
[2020-11-19] MEDS: DOCUSATE 100 MG CAP PO SCH ×2 (07:49→21:47)
[2020-11-19] MEDS: ALPRAZolam 0.25 MG TAB PO PRN (09:26)
--- NOTE | 2020-11-19 10:03 | P.PN ---
Subjective Patient is seen in follow-up for end-stage renal disease. He is maintained on hemodialysis on Wednesday schedule. Currently sitting up in bed. No chest pain or shortness of breath. No vomiting or diarrhea. Blood pressure on the lower side today. Denies any active bleeding. Vital signs are stable. General: The patient appeared well nourished and normally developed. HEENT: Head exam is unremarkable. Neck is without jugular venous distension. LUNGS: Breath sounds decreased. HEART: Rate and Rhythm are regular. ABDOMEN: Soft, no distention. EXTREMITITES: 1+ edema. Objective - Vital Signs Vital signs: Vital Signs Temp 98.0 F 11/19/20 08:00 Pulse 67 11/19/20 08:00 Resp 20 11/19/20 08:00 BP 113/52 11/19/20 08:00 Pulse Ox 99 11/19/20 08:00 Intake & Output 11/18/20 11/19/20 11/19/20 18:59 06:59 18:59 Intake Total 480 100 Balance 480 100 Weight 97.9 kg Intake: Oral 480 100 - Labs CBC & Chem 7: 11/15/20 06:26 11/15/20 06:26 Labs: Abnormal Lab Results - Last 24 Hours (Table) 11/13/20 11/18/20 11/18/20 Range/Units 03:57 08:27 11:26 ABG pO2 (83-108) mmHg ABG HCO3 (21-25) mmol/L ABG Total CO2 (19-24) mmol/L ABG O2 Saturation (94-97) % POC Glucose (mg/dL) 156 H (75-99) mg/dL Phosphorus 5.1 H (2.5-4.5) mg/dL Vitamin B6 2 L (5-50) ug/L 11/18/20 11/18/20 11/18/20 Range/Units 14:35 16:18 16:22 ABG pO2 49 L* (83-108) mmHg ABG HCO3 27 H (21-25) mmol/L ABG Total CO2 29 H (19-24) mmol/L ABG O2 Saturation 84.7 L (94-97) % POC Glucose (mg/dL) 162 H 166 H (75-99) mg/dL Phosphorus (2.5-4.5) mg/dL Vitamin B6 (5-50) ug/L 11/18/20 11/19/20 Range/Units 20:49 06:52 ABG pO2 (83-108) mmHg ABG HCO3 (21-25) mmol/L ABG Total CO2 (19-24) mmol/L ABG O2 Saturation (94-97) % POC Glucose (mg/dL) 215 H 112 H (75-99) mg/dL Phosphorus (2.5-4.5) mg/dL Vitamin B6 (5-50) ug/L Assessment and Plan Plan: Assessment: 1. End-stage renal disease maintained on hemodialysis on Wednesday schedule. 2. Acute GI bleed status post EGD which revealed antral gastritis. Status post blood transfusion this admission. On [facility]. 3. History of A. fib. 4. Diabetes mellitus. 5. Hypertension with chronic kidney disease. 6. MRSA bacteremia secondary to mitral valve endocarditis and paraspinal abscess on antibiotics. Plan: Hemodialysis today. Monitor vancomycin levels. Target level near 15. Phosphorus 5.1. Hold hydralazine for systolic blood pressure less than 125.
[2020-11-19] MEDS ORDERED: HYDROcodone/APAP 5-325MG 1 EACH TAB PO PRN (10:04)
[2020-11-19 11:29] LABS: Glucose,Whole Blood 183 mg/dL (75-99)
[2020-11-19] MEDS: LACTATED RINGERS 1,000 ML IV SCH (12:30)
[2020-11-19] MEDS: SODIUM CHLORIDE 0.9% 1,000 ML IV SCH (12:31)
--- NOTE | 2020-11-19 13:23 | P.PN ---
Subjective Progress Note Date: 11/19/20 This is a 60-year-old male patient of Dr. Mckeon currently residing at [facility] under the care of Dr. Christian with a previous medical history significant for hypertension and hypertensive cardiovascular disease, hyperlipidemia, diabetes mellitus type 2, paroxysmal atrial fibrillation, coronary artery dis ease status post left heart catheterization and PCI of the obtuse marginal branch #1 off the LCx, followed by a recent PCI and stenting of the LAD back in September 2018, end-stage renal disease on hemodialysis Wednesday and Wednesday via left arm fistula, blindness of the right eye as well as left eye legally blind. Patient was hospitalized in April 2020 at which time he was treated for sepsis and MRSA bacteremia of unclear etiology with metabolic encephalopathy vasovagal episode requiring brief CPR and patient was transferred to [facility]. Patient was treated for MRSA osteomyelitis of the lumbar spine. Patient had recent hospitalization September 19 and was transferred on September 30 to be [facility] due to sepsis with persistent MRSA bacteremia secondary to mitral valve vegetation, paraspinal abscess of the C1-C2. Patient was sent from [facility] to the emergency department to be evaluated for significant altered mental status confusion mild competitive and bizarre behavior could not keep him awake and could not finish dialysis day early because of the hypotension and severe tiredness. Was seen and evaluated and was sent back to [facility] while he still on the stretcher in [facility] before getting back to his bed patient could not being kept awake had severe change at the time was decided to send him back to the emergency room again. Patient was seen and evaluated the second time found to have mild hypotension severe confusion severe uremia and slightly but worsening anemia. Patient was started on gentle hydration consult nephrology for urgent dialysis patient to be continue his vancomycin for the endocarditis and to be seen infectious disease and cardiology. 11/12: Patient currently had 2 large tarry bowel movements this morning. Hemoglobin came back at 6.8 and he has been ordered for 2 units of packed RBCs. Patient continues to be lethargic. His blood pressure this morning was 77/47 but did recover to 122/77 and he did start hemodialysis this morning. Plan is for removal of 3 L of fluid. Patient has been afebrile, heart rate 72, pulse ox 98% on room air. WBC 10.9, hemoglobin 224. Sodium 136, potassium 6, chloride 97, CO2 14, BUN 157, creatinine 6.48. Blood sugars in the 170s. Magnesium 2.5. Alkaline phosphatase 131. ProBNP 32,200. Stool occult for occult blood was positive. Stool for occult blood was positive. Patient transferred into the intensive care unit and consult added for financial sales representative. 11/13: Patient remains in the intensive care unit. He underwent hemodialysis yesterday had repeat today with no plan for removal of fluid today. The patient's blood pressure was low this morning even after midodrine and patient had a syncopal episode according to his dialysis nurse. Patient is sitting in recliner and mental status is improved today but not back to baseline. He has been afebrile, heart rate 69, blood pressure 122/55, pulse ox 97% on 3 L nasal cannula. Repeat blood work reveals WBC of 8.1, hemoglobin 8.1, platelet count 176. CO2 19 otherwise electrolytes are normal. BUN 96 and creatinine 4.28. Blood sugars are running between 127 and 168. Patient is seen and followed by multiple consultants including neurology for toxic metabolic encephalopathy. He has been seen by cardiology and judie is on hold. GI is following. Plan is for EGD on Wednesday. 11/14: Patient is seen today on the MedSurg floor, he sitting on edge of the bed leaning on his bedside table, mental status is significantly improved. He states that he is not receiving dialysis today. He is scheduled for EGD tomorrow afternoon. Patient states that he is feeling better today he is having diarrhea for which Pooja added. Patient is afebrile, heart rate 59, blood pressure 84/51, pulse ox 95% on room air. Capillary blood glucose running between 107 and 244. Repeat blood work will be ordered for tomorrow. He is continued on vancomycin, pharmacy dosing for endocarditis. We'll plan for possible discharge back to [facility] tomorrow after EGD tomorrow. 11/15: Repeat blood work reveals WBC of 8.8, hemoglobin 7.8, platelet count 206. Sodium 135, potassium 4.8, chloride 97, CO2 23, BUN 82 and creatinine 4.94. Capillary blood glucose running between 133 and 286. Alkaline phosphatase 133. Patient has been afebrile, heart rate 67, blood pressure 108/61, pulse ox 92-98% on room air. Patient is scheduled for EGD today with Dr. Ramana Storey. A Chin is undergoing hemodialysis today. Patient started feeling bad with headache, numbness in his legs and arms and hemodialysis was stopped early today. Dr. Nguyen is planning on repeat dialysis tomorrow with removal of 2 L. 11/16: Patient was upset that his gabapentin cannot been decreased. He is having significant amounts of lower extremity pain especially at night. This is not allowing him to be able to sleep because of his neuropathy pain. Lidocaine gel to be applied at night to bilateral feet to assist with pain control. Continue dialysis daily. Patient states that he is feeling better with no complaints he is in no acute distress. She remains afebrile, heart rate 64, respirations 16, blood pressure 143/82 pulse ox 95% on room air 11/17: Patient is found sitting up at the side of the bed. He states that his leg discomfort has improved slightly compared to yesterday. He continues to have significant amount of swelling to the bilateral lower extremities from the knees to the toes. Patient states that utilizing a Carlos A wrap is uncomfortable. After a lengthy discussion patient agreed to have Carlos A wraps applied. Patient will have dialysis today. The plan is for him to return to [facility] on Wednesday. Patient remains afebrile. Heart rate 73, respirations 18, blood pressure 146/76, pulse oxing 98% on room air. 11/18: Patient is seen and covered up, with a blanket over his head and shoulders, patient has some chills, noted to have a T-max of 99.7, discharged to skilled ECF was canceled today in view of this, but. Blood cultures dated today, patient is still on IV vancomycin,, as per Dr. Enciso, surgical intervention was requested for the endocarditis, however patient refused this option. He is nearing the end of his IV treatment, for the endocarditis, which would be completed approximately prior to December 01. No diarrhea, patient does not have any urine output, no new skin infection, there is significant edema in both legs, as the patient stated sleeps sitting in a chair 11/19: Patient is scheduled for dialysis today. He states he is feeling well and not feeling bad. He denies having any cough or sputum production. He denies any significant pain but he did take the [place] and last evening he was difficult to arouse and we will decrease [place] to half tablet. Temperature max 100.1, heart rate in the 60s, blood pressure 113/52, pulse ox 99% on room air. Blood sugars are running between 112 and 215. Repeat COVID-[address] Presley is considering MRI of the cervical spine after discussion with home theater specialist. REVIEW OF SYSTEMS Constitutional: no fever, no chills, no night sweats. Significant weight gain and fluid retention. Reported weakness, reported fatigue denies lethargy. Reported daytime sleepiness. Reports bilateral foot pains especially at night unable to sleep EENT: No headache. He has lack of vision in one of his eyes.. No loss of Hearing, no ringing in the ears, no dizziness. No nasal drainage or congestion. No epistaxis. No sore throat. Lungs: Denies shortness of breath mild PND or wheezes. Cardiovascular: Positive fluid retention, PND, orthopnea, lightheadedness and dizziness with no syncope no significant chest pain but significant shortness of breath and dyspnea. Abdominal: Slight abdominal pain with distention and mild nausea no vomiting positive denies tarry stool and significant change in bowel habit. Genitourinary: Very little minimal urine production. Musculoskeletal: Positive myalgia muscle and generalized fatigue. Integumentary: Significant edema and water retention lower extremity with slight discoloration from the knee down. Neurologic: No aphasia. No facial droop. Back to baseline mentation. No head injury. No headache. No paralysis. No paresthesia. Psychiatric: Mild depression confusion with no anxiety. Endocrine: Noted abnormal blood sugars. No weight change. PHYSICAL EXAMINATION Gen: This is a 60-year-old male patient resting in bed. He appears to be in no acute distress. HEENT: Head is atraumatic, normocephalic. Pupils equal, round. Sclerae is anicteric. NECK: Supple. No JVD. No lymphadenopathy. No thyromegaly. LUNGS: Decreased expansion bilaterally with fine rhonchi positive mild crackles basis has not spread wheezes. HEART: Regular rate and rhythm. 2/6 systolic murmur with mild tachycardia.. ABDOMEN: Soft positive bowel sounds slight distention with no rebound or rigidity. EXTREMITIES: 1+ pedal edema with slight arthritis slight discoloration from the knee down. NEUROLOGICAL: Patient is awake alert and oriented 3. Cranial nerves 2 through 12 are grossly intact. ASSESSMENT AND PLAN 1. Acute toxic metabolic encephalopathy: Multifactorial combination of endocarditis, infection, end-stage renal disease with uremia, fluid overload and CHF, anemia possible GI bleed. Mentation is back to baseline. 2. Shortness of breath secondary to fluid overload from missed dialysis treatment will consult with nephrology appreciated, continue hemodialysis. 3. Acute GI bleed with tarry stool hemoglobin is down to 6.8. Status post transfusion of 2 units of packed RBCs, GI consult appreciated, monitor hemoglobin. EGD completed, pathology is pending. 4. Worsening uremia: Secondary to end-stage renal disease with missing dialysis more often. 5. 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 Patient was transferred to [facility] and return to [facility] to complete 4 week course of IV vancomycin with dialysis. Antibiotic course started on October 19. Consult with Dr. Presley appreciated. 6. Metabolic encephalopathy secondary to uremia, fluid overload, anemia and hypertension, will try to treat underlying disease and evaluated patient patient will be seen neurology as well. 7. Recent treatment for MRSA bacteremia and lumbar spine osteomyelitis, compl eted course of antibiotics. 8. End-stage renal disease on hemodialysis. Consult with nephrology appreciated. Continue PhosLo 667 mg 3 times daily, Aranesp 40 g subcu every 7 days, hemodialysis. Patient had missed dialysis recently because of hypertension and a change mental status. 9. Degenerative disc disease and spinal stenosis. Continue gabapentin 300 mg at bedtime. Continue baclofen 5 mg every 8 hours as needed. 10. History of coronary artery disease with previous PTCA to LAD and circumflex. Continue aspirin 81 mg daily, atorvastatin 40 mg at bedtime, Lopressor 25 mg twice daily. 11. Paroxysmal atrial fibrillation. Continue eliquis 2.5 mg twice daily-on hold, continue Lopressor, amiodarone 200 mg daily pulse rates under control at this point. 12. Ischemic cardiomyopathy. Continue Lopressor, Lasix 80 mg twice daily, metolazone 5 mg daily. 13. Diabetes mellitus type 2, insulin requiring. Continue Levemir 5 units at bedtime, add NovoLog scale before meals and at bedtime, 14. Hypertension. Continue hydralazine 75 mg 3 times daily. 15. Anemia of chronic disease. Continue ferrous sulfate 325 mg twice daily. Along with Aranesp 40 g subcu every 7 days. 16. Neuropathy to bilateral feet. Lidocaine gel to bilateral feet at bedtime, Carlos A wraps to bilateral lower extremities. 17. GI prophylaxis. Continue Protonix. 18. DVT prophylaxis. Was on Eliquis which will be held for now. 19. Covid 19 testing: Negative. Prognosis: guarded. CODE STATUS: DO NOT RESUSCITATE. DISCHARGE PLAN Return to [facility] on Wednesday Impression and plan of care have been directed as dictated by the signing physician. Katelyn Wesley nurse practitioner acting as scribe for signing physician. Objective - Vital Signs Vital signs: Vital Signs Temp 98.0 F 11/19/20 08:00 Pulse 67 11/19/20 08:00 Resp 20 11/19/20 08:00 BP 113/52 11/19/20 08:00 Pulse Ox 99 11/19/20 08:00 Intake & Output 11/18/20 11/19/20 11/19/20 18:59 06:59 18:59 Intake Total 480 100 Balance 480 100 Weight 97.9 kg Intake: Oral 480 100 - Labs CBC & Chem 7: 11/15/20 06:26 11/15/20 06:26 Labs: Abnormal Lab Results - Last 24 Hours (Table) 11/13/20 11/18/20 11/18/20 Range/Units 03:57 08:27 11:26 ABG pO2 (83-108) mmHg ABG HCO3 (21-25) mmol/L ABG Total CO2 (19-24) mmol/L ABG O2 Saturation (94-97) % POC Glucose (mg/dL) 156 H (75-99) mg/dL Phosphorus 5.1 H (2.5-4.5) mg/dL Vitamin B6 2 L (5-50) ug/L 11/18/20 11/18/20 11/18/20 Range/Units 14:35 16:18 16:22 ABG pO2 49 L* (83-108) mmHg ABG HCO3 27 H (21-25) mmol/L ABG Total CO2 29 H (19-24) mmol/L ABG O2 Saturation 84.7 L (94-97) % POC Glucose (mg/dL) 162 H 166 H (75-99) mg/dL Phosphorus (2.5-4.5) mg/dL Vitamin B6 (5-50) ug/L 11/18/20 11/19/20 Range/Units 20:49 06:52 ABG pO2 (83-108) mmHg ABG HCO3 (21-25) mmol/L ABG Total CO2 (19-24) mmol/L ABG O2 Saturation (94-97) % POC Glucose (mg/dL) 215 H 112 H (75-99) mg/dL Phosphorus (2.5-4.5) mg/dL Vitamin B6 (5-50) ug/L
[2020-11-19] MEDS: DARBEPOETIN ALFA 60 MCG/0.3 ML SYRINGE SQ SCH (14:11)
--- NOTE | 2020-11-19 14:58 | P.PN ---
Subjective Progress Note Date: 11/19/20 11/18/2020, the patient was found to be briefly unresponsive and I was asked to evaluate this patient. Apparently the nursing staff tried to wake him up and he was unarousable. He was lethargic. By the time I arrived to the bedside, the patient was fully awake and alert and he was following commands and answering questions and he seemed to be 40 appropriate. He was on room air oxygen. An immediate chest x-ray was done and showed no acute abnormalities. He was afebrile. He was hemodynamically stable. Blood cultures were negative and the patient was given vancomycin with a vancomycin trough level being at 21.8 from 11/17/2020. Repeat blood cultures of been negative. The patient denies having any complaints. He was getting hemodialysis on a regular basis. No chest pain. No neck pain. No skin rashes. No pulmonary wounds or ulceration. In terms of his blood work, the blood sugar from today was 162, phosphorus level was 5.1. No other blood work was available. Asked the nurses to obtain a set of blood work. Neurologic is fully awake and alert is moving all 4 extremities without any limitation. On today's evaluation of 11/19/2020, the patient is fully alert and awake his communicating and he denies having any specific complaints. He underwent another session of hemodialysis ultrafiltration of 2.3 L. He is afebrile. He is hemodynamically stable. The patient remains on vancomycin. He has been treated for mitral valve endocarditis and is vancomycin trough is at 81.7. COVID-19 testing was negative as mentioned. He is currently on room air oxygen with a pulse ox of Objective - Vital Signs Vital signs: Vital Signs Temp 98.6 F 11/19/20 13:39 Pulse 73 11/19/20 13:39 Resp 16 11/19/20 13:39 BP 95/57 11/19/20 13:39 Pulse Ox 97 11/19/20 13:39 Intake & Output 11/18/20 11/19/20 11/19/20 18:59 06:59 18:59 Intake Total 480 100 Output Total 2500 Balance 480 100 -2500 Weight 97.9 kg Intake: Oral 480 100 Output: Hemodialysis 2500 Other: # Bowel Movements 1 - Exam No acute distress, sleepy and lethargic, but does arouse. Currently on room air with saturations 99%. HEENT examination is grossly unremarkable. Neck supple. Full range of motion. No adenopathy thyromegaly or neck vein dis tention. Cardiovascular examination reveals regular rhythm rate. S1-S2 normal. No S3 or S4. No discernible murmur noted. Heart sounds distant. Heart rate 56 bpm. Lungs reveal mostly clear breath sounds. Scattered rhonchi are noted. No wheezes or crackles. Breath sounds equal bilaterally. Abdomen soft bowel sounds are heard. No masses or tenderness. Extremities reveal 2+ pitting edema. There is also some chronic venous stasis changes. No cyanosis or clubbing. Skin is without rash or lesion. Neurologic examination reveals a awake and alert male. - Labs CBC & Chem 7: 11/15/20 06:26 11/15/20 06:26 Labs: Abnormal Lab Results - Last 24 Hours (Table) 11/18/20 11/18/20 11/18/20 Range/Units 16:18 16:22 20:49 ABG pO2 49 L* (83-108) mmHg ABG HCO3 27 H (21-25) mmol/L ABG Total CO2 29 H (19-24) mmol/L ABG O2 Saturation 84.7 L (94-97) % POC Glucose (mg/dL) 166 H 215 H (75-99) mg/dL 11/19/20 11/19/20 Range/Units 06:52 11:27 ABG pO2 (83-108) mmHg ABG HCO3 (21-25) mmol/L ABG Total CO2 (19-24) mmol/L ABG O2 Saturation (94-97) % POC Glucose (mg/dL) 112 H 183 H (75-99) mg/dL Assessment and Plan Plan: 1 Fluctuating mentation due to a component of metabolic encephalopathy and the patient with known metabolic derangements including an incisional disease, sepsis secondary to endocarditis for which the patient has been receiving vancomycin on outpatient basis. Currently is fully awake and alert and is following commands and answering questions. Chest x-rays clear. No signs of an y respiratory distress. No hemodynamic instability. 2 acute GI bleed with secondary Acute on chronic anemia, to receive 2 units of PRBCs. The patient underwent EGD and the EGD showed 1 cm polyp in the pylorus without evidence of any acute bleed. There is also antral gastritis and small antral polyps. For now, hemoglobin from 11/15/2020 has been 7.8 and the patient is currently off anticoagulation. 3 End-stage renal disease, currently on 3 time a week hemodialysis. 4 Episode in March of this year, of cardiopulmonary arrest, with brief cardiopulmonary resuscitation and return of spontaneous circulation. 5 History of atrial fibrillation. The patient was maintained on Eliquis on outp atient basis and this was discontinued following his recent GI bleed 6 History of CAD, status post stent placement. 7 History of CHF. 8 History of diabetes mellitus. 9 MRSA bacteremia with mitral valve endocarditis and lumbar spine osteomyelitis. The patient also had a questionable paraspinal abscess involving the C1/C2 spine. The patient was seen and examined [place] to return back to my with to complete his antibiotic course. He was being followed up by infectious disease and an outpatient basis 10 History of deafness. 11 History of hyperlipidemia. 12 History of hypertension. 13 Her history of myocardial infarction. 14 History of syncope. 15 History of gout. 16 Multiple other medical problems and comorbidities. Plan mental status remains normal and the patient is appropriate and moving all 4 extremities without any limitations Continue antibiotics and the patient remains on vancomycin Continue hemodialysis per nephrology, another session of hemodialysis was done No active pulmonary or critical care issue and we are going to sign off the case.
[2020-11-19 16:40] LABS: Glucose,Whole Blood 139 mg/dL (75-99)
[2020-11-19] MEDS: FERROUS SULFATE 325 MG TAB PO SCH (16:49)
[2020-11-19] MEDS: ASPIRIN 81 MG PO SCH (16:49)
--- NOTE | 2020-11-19 18:41 | PN ---
PROGRESS NOTE DATE OF SERVICE: 11/19/2020 REASON FOR FOLLOWUP: MRSA bacteremia secondary to mitral valve endocarditis and paraspinal abscess. INTERVAL HISTORY: Patient is afebrile. The patient is more sleepy and lethargic today. The patient did not provide any history. No vomiting, diarrhea, or any other changes reported by nursing staff. PHYSICAL EXAMINATION: Blood pressure 130/78 with a pulse of 83, temperature 98.6. He is 97% on room air. General description is a middle-aged male lying in bed in no distress. Respiratory system: Unlabored breathing, decreased breath sounds at bases. No wheeze. Heart S1, S2. Regular rate and rhythm. Abdomen soft. No tenderness. LABS: No new labs have been obtained today. DIAGNOSTIC IMPRESSION AND PLAN: Patient with history of MRSA bacteremia secondary to the mitral valve endocarditis. This patient did have a component of paraspinal abscess that has been treated medically, he is covered with Vancomycin that will continue to finish a 6 week course of therapy and close outpatient followup. MMODL / IJN: [id number] /
[2020-11-19 21:14] LABS: Glucose,Whole Blood 237 mg/dL (75-99)
[2020-11-19] MEDS: MELATONIN 3 MG TABLET PO SCH (21:22)
[2020-11-19] MEDS: GABAPENTIN 300 MG CAP PO SCH (21:22)
[2020-11-19] MEDS: ATORVASTATIN 40 MG TAB PO SCH (21:22)
[2020-11-19] MEDS: LIDOCAINE 2% GEL 30 ML TUBE TOPICAL SCH (21:47)
[2020-11-19] MEDS: INSULIN DETEMIR (LEVEMIR) 100 UNIT/ML SYR SQ SCH (22:05)
[2020-11-20] MEDS: BUTALB/APAP/CAFF 50-325-40MG TAB PO PRN (03:49)
[2020-11-20] MEDS: hydrOXYzine HCL 25 MG TAB PO PRN (04:05)
[2020-11-20 07:03] LABS: Glucose,Whole Blood 213 mg/dL (75-99)
[2020-11-20] MEDS: PANTOPRAZOLE 40 MG/10 ML VIAL IVP SCH (07:28)
[2020-11-20] MEDS: INSULIN ASPART (NovoLOG) 100 UNIT/ML VIAL SQ SCH ×2 (07:28→12:22)
[2020-11-20] MEDS: AMIODARONE 200 MG TAB PO SCH (07:28)
[2020-11-20] MEDS: hydrALAZINE HCL 25 MG TAB PO SCH (07:28)
[2020-11-20] MEDS: METOPROLOL TARTRATE 25 MG TAB PO SCH (07:29)
[2020-11-20] MEDS: DOCUSATE 100 MG CAP PO SCH (07:29)
[2020-11-20] MEDS: CHOLESTYRAMINE (WITH SUGAR) 4 GM PACKET PO SCH (07:30)
[2020-11-20] MEDS: polyethylene glycoL 3350 17 GM POWD.PACK PO SCH (07:30)
[2020-11-20 07:41] VITALS: BP 157/76; PULSE 53; RESP 18; TEMP 98.3
[2020-11-20] MEDS: ACETAMINOPHEN TAB 325 MG TAB PO PRN (07:48)
[2020-11-20] MEDS: TRIAMCINOLONE ACET 0.5% CREAM 15 GM TUBE TOPICAL SCH (10:01)
--- NOTE | 2020-11-20 10:04 | P.DS ---
Providers Date of admission: 11/11/20 17:44 Expected date of discharge: 11/20/20 Attending physician: Perry Christian Consults: 11/11/20 17:51 Consult Physician Routine Consulting Provider: Janine Nguyen Consult Reason/Comments: ESRD Do you want consulting provider notified?: Yes 11/11/20 21:55 Consult Physician Routine Consulting Provider: Tio Presley Consult Reason/Comments: Endocarditis Do you want consulting provider notified?: Yes 11/11/20 21:56 Consult Physician Routine Consulting Provider: Dru Nixon Consult Reason/Comments: altered MS Do you want consulting provider notified?: Yes 11/11/20 21:57 Consult Physician Routine Consulting Provider: Nasim Wills Consult Reason/Comments: CHF and ischemic CMP, Anasarca Do you want consulting provider notified?: Yes 11/12/20 06:17 Consult Physician Routine Consulting Provider: Aisha Storey Consult Reason/Comments: GI Bleed positive occult stool Do you want consulting provider notified?: Already Contacted 11/18/20 14:52 Consult Physician Urgent Consulting Provider: Srinivasan Nixon Consult Reason/Comments: increase lethargy Do you want consulting provider notified?: Yes Primary care physician: Perry Christian [facility] Course: This is a 60-year-old male patient of Dr. Mckeon currently residing at [facility] under the care of Dr. 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 Patient was hospitalized in April 2020 at which time he was treated for sepsis and MRSA bacteremia of unclear etiology with metabolic encephalopathy vasovagal episode requiring brief CPR and patient was transferred to [facility]. Patient was treated for MRSA osteomyelitis of the lumbar spine. Patient had recent hospitalization September 19 and was transferred on September 30 to be [facility] due to sepsis with persistent MRSA bacteremia secondary to mitral valve vegetation, paraspinal abscess of the C1-C2. Patient was sent from [facility] to the emergency department to be evaluated for significant altered mental status confusion mild competitive and bizarre behavior could not keep him awake and could not finish dialysis day early because of the hypotension and severe tiredness. Was seen and evaluated and was sent back to [facility] while he still on the stretcher in [facility] before getting b ack to his bed patient could not being kept awake had severe change at the time was decided to send him back to the emergency room again. Patient was seen and evaluated the second time found to have mild hypotension severe confusion severe uremia and slightly but worsening anemia. Patient was started on gentle hydration consult nephrology for urgent dialysis patient to be continue his vancomycin for the endocarditis and to be seen infectious disease and cardiology. 11/12: Patient currently had 2 large tarry bowel movements this morning. Hemoglobin came back at 6.8 and he has been ordered for 2 units of packed RBCs. Patient continues to be lethargic. His blood pressure this morning was 77/47 but did recover to 122/77 and he did start hemodialysis this morning. Plan is for removal of 3 L of fluid. Patient has been afebrile, heart rate 72, pulse ox 98% on room air. WBC 10.9, hemoglobin 224. Sodium 136, potassium 6, chloride 97, CO2 14, BUN 157, creatinine 6.48. Blood sugars in the 170s. Magnesium 2.5. Alkaline phosphatase 131. ProBNP 32,200. Stool occult for occult blood was positive. Stool for occult blood was positive. 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 11/13: Patient remains in the intensive care unit. He underwent hemodialysis yesterday had repeat today with no plan for removal of fluid today. The patient's blood pressure was low this morning even after midodrine and patient had a syncopal episode according to his dialysis nurse. Patient is sitting in recliner and mental status is improved today but not back to baseline. He has been afebrile, heart rate 69, blood pressure 122/55, pulse ox 97% on 3 L nasal cannula. Repeat blood work reveals WBC of 8.1, hemoglobin 8.1, platelet count 176. CO2 19 otherwise electrolytes are normal. BUN 96 and creatinine 4.28. Blood sugars are running between 127 and 168. Patient is seen and followed by multiple consultants including neurology for toxic metabolic encephalopathy. He has been seen by cardiology and eliquis is on hold. GI is following. Plan is for EGD on Wednesday. 11/14: Patient is seen today on the MedSurg floor, he sitting on edge of the bed leaning on his bedside table, mental status is significantly improved. He states that he is not receiving dialysis today. He is scheduled for EGD tomorrow afternoon. Patient states that he is feeling better today he is having diarrhea for which Questran added. Patient is afebrile, heart rate 59, blood pressure 84/51, pulse ox 95% on room air. Capillary blood glucose running between 107 and 244. Repeat blood work will be ordered for tomorrow. He is continued on vancomycin, pharmacy dosing for endocarditis. We'll plan for possible discharge back to [facility] tomorrow after EGD tomorrow. 11/15: Repeat blood work reveals WBC of 8.8, hemoglobin 7.8, platelet count 206. Sodium 135, potassium 4.8, chloride 97, CO2 23, BUN 82 and creatinine 4.94. Capillary blood glucose running between 133 and 286. Alkaline phosphatase 133. Patient has been afebrile, heart rate 67, blood pressure 108/61, pulse ox 92-98% on room air. Patient is scheduled for EGD today with Dr. Ramana Storey. Annia Llamas is undergoing hemodialysis today. Patient started feeling bad with headache, numbness in his legs and arms and hemodialysis was stopped early today. Dr. Nguyen is planning on repeat dialysis tomorrow with removal of 2 L. 11/16: Patient was upset that his gabapentin cannot been decreased. He is having significant amounts of lower extremity pain especially at night. This is not allowing him to be able to sleep because of his neuropathy pain. Lidocaine gel to be applied at night to bilateral feet to assist with pain control. Continue dialysis daily. Patient states that he is feeling better with no complaints he is in no acute distress. She remains afebrile, heart rate 64, respirations 16, blood pressure 143/82 pulse ox 95% on room air 11/17: Patient is found sitting up at the side of the bed. He states that his leg discomfort has improved slightly compared to yesterday. He continues to have significant amount of swelling to the bilateral lower extremities from the knees to the toes. Patient states that utilizing a Carlos A wrap is uncomfortable. After a lengthy discussion patient agreed to have Carlos A wraps applied. Patient will have dialysis today. The plan is for him to return to [facility] on Wednesday. Patient remains afebrile. Heart rate 73, respirations 18, blood pressure 146/76, pulse oxing 98% on room air. 11/18: Patient is seen and covered up, with a blanket over his head and sh oulders, patient has some chills, noted to have a T-max of 99.7, discharged to [facility]CF was canceled today in view of this, but. Blood cultures dated today, patient is still on IV vancomycin,, as per Dr. Enciso, surgical intervention was requested for the endocarditis, however patient refused this option. He is nearing the end of his IV treatment, for the endocarditis, which would be completed approximately prior to December 01. No diarrhea, patient does not have any urine output, no new skin infection, there is significant edema in both legs, as the patient stated sleeps sitting in a chair 11/19: Patient is scheduled for dialysis today. He states he is feeling well and not feeling bad. He denies having any cough or sputum production. He denies any significant pain but he did take the [place] and last evening he was difficult to arouse and we will decrease [place] to half tablet. Temperature max 100.1, heart rate in the 60s, blood pressure 113/52, pulse ox 99% on room air. Blood sugars are running between 112 and 215. Repeat COVID-[address] Presley is considering MRI of the cervical spine after discussion with nurse tech. 11/20: Dr. Presley has recommended MRI but patient flatly refuses to undergo any future MRIs. He also changed his CODE STATUS to full code. Patient is afebrile, heart rate 53, blood pressure 157/76, pulse ox 99% on room air. Patient has been afebrile since 928 at midnight. Patient will be discharged to [facility] today in stable condition. He is to continue IV antibiotics which will be completed on November 30. ASSESSMENT AND PLAN 1. Acute toxic metabolic encephalopathy: Multifactorial combination of endocarditis, infection, end-stage renal disease with uremia, fluid overload and CHF, anemia possible GI bleed. Mentation is back to baseline. 2. Shortness of breath secondary to fluid overload from missed dialysis treatment. 3. Acute GI bleed with tarry stool hemoglobin is down to 6.8. Status post transfusion of 2 units of packed RBCs. Status post EGD on 06/20. Pathology negative for malignancy. 4. Worsening uremia: Secondary to end-stage renal disease with missing dialysis more often. 5. 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 Antibiotic course started on October 19. 6. Metabolic encephalopathy secondary to uremia, fluid overload, anemia and hypertensio. 7. Recent treatment for MRSA bacteremia and lumbar spine osteomyelitis, completed course of antibiotics. 8. End-stage renal disease on hemodialysis. 9. Degenerative disc disease and spinal stenosis. 10. History of coronary artery disease with previous PTCA to LAD and circumflex. 11. Paroxysmal atrial fibrillation. 12. Ischemic cardiomyopathy. 13. Diabetes mellitus type 2, insulin requiring. 14. Hypertension. 15. Anemia of chronic disease. 16. Neuropathy to bilateral feet. 17. Covid 19 testing: Negative. DISCHARGE PLAN Return to [facility] Impression and plan of care have been directed as dictated by the signing physician. Katelyn Wesley nurse practitioner acting as scribe for signing physician. Patient Condition at Discharge: Stable Plan - Discharge Summary Discharge Rx Participant: No New Discharge Prescriptions: New Cyanocobalamin [Vitamin B-12] 500 mcg PO DAILY #30 tablet Continue Furosemide [Lasix] 80 mg PO BID@0600,1400 INSULIN ASPART (NovoLOG) [NovoLOG (formulary)] See Protocol SQ ACHS Ferrous Sulfate [Iron (65 MG Elemental)] 325 mg PO DAILY@1700 Apixaban [Eliquis] 2.5 mg PO BID@0800,2100 Triamcinolone 0.1% Cream [Kenalog 0.1% Cream] 1 applic TOPICAL BID@0800,1700 Cholestyramine (with Sugar) [Cholestyramine Packet] 4 gm PO BID@0800,1700 Lidocaine 4% Cream [Lmx 4] 1 applic TOPICAL Q4H PRN PRN Reason: Pain Melatonin 6 mg PO HS #30 tablet Aspirin 81 mg PO DAILY@1700 hydrOXYzine HCL 25 mg PO Q8H PRN PRN Reason: Itching Ipratropium-Albuterol Nebulize [Duoneb 0.5 mg-3 mg/3 ml Soln] 3 ml INHALATION RT-Q6H PRN PRN Reason: Wheezing Magnesium Hydroxide [Milk of Magnesia Concentrate] 7,200 mg PO Q48H PRN PRN Reason: Constipation Menthol-Zinc Oxide Oint [Calmoseptine Oint] 1 applic TOPICAL BID Oxymetazoline 0.05% Nasl [place] [Afrin 0.05% Nasal [place]] 1 spray EA NOSTRIL Q12H PRN PRN Reason: stuffy nose Vancomycin HCl in 5 % Dextrose [Vancomycin 1 Gram/250 ml-D5w] 1 gm IV TUTHSA HYDROcodone/APAP 5-325MG [[place] 5-325] 1 tab PO Q4H PRN #18 tab PRN Reason: Pain bisacodyL [Dulcolax] 10 mg RECTAL DAILY PRN PRN Reason: Constipation Insulin Detemir (Levemir) [Levemir] 5 unit SQ HS@2100 Atorvastatin [Lipitor] 40 mg PO HS hydrALAZINE HCL [Apresoline] 75 mg PO TID@0600,1400,2100 Metoprolol Tartrate [Lopressor] 25 mg PO BID@0800,2100 Liquacel 30 ml PO BID@0800,2100 metOLazone [Zaroxolyn] 5 mg PO DAILY@0800 Amiodarone [Cordarone] 200 mg PO DAILY@0800 Baclofen [Lioresal] 5 mg PO Q8H PRN PRN Reason: Muscle Spasm Acetaminophen [Tylenol 8 Hour] 650 mg PO Q4H PRN PRN Reason: general discomfort Mupirocin 2% Oint [Bactroban 2% Oint] 1 applic TOPICAL BID@0800,1700 Docusate [Colace] 100 mg PO BID@0800,1700 Butalb/Acetaminophen/Caffeine [Fioricet 50-300-40 mg Capsule] 1 cap PO Q6H PRN PRN Reason: Headache Polyethylene Glycol 3350 [Miralax] 17 gm PO DAILY@0800 Gabapentin 300 mg PO HS@2100 #3 cap ALPRAZolam [Xanax] 0.25 mg PO BID PRN #6 tab PRN Reason: Anxiety Discharge Medication List Furosemide [Lasix] 80 mg PO BID@0600,1400 04/13/19 [History] Ferrous Sulfate [Iron (65 MG Elemental)] 325 mg PO DAILY@1700 08/12/20 [History] INSULIN ASPART (NovoLOG) [NovoLOG (formulary)] See Protocol SQ ACHS 08/12/20 [History] Insulin Detemir (Levemir) [Levemir] 5 unit SQ HS@209908/12/20 [History] bisacodyL [Dulcolax] 10 mg RECTAL DAILY PRN 08/12/20 [History] Amiodarone [Cordarone] 200 mg PO DAILY@0800 09/19/20 [History] Apixaban [Eliquis] 2.5 mg PO BID@0800,209909/19/20 [History] Atorvastatin [Lipitor] 40 mg PO HS 09/19/20 [History] Liquacel 30 ml PO BID@0800,209909/19/20 [History] Metoprolol Tartrate [Lopressor] 25 mg PO BID@0800,209909/19/20 [History] hydrALAZINE HCL [Apresoline] 75 mg PO TID@0600,1400,209909/19/20 [History] metOLazone [Zaroxolyn] 5 mg PO DAILY@0809/19/20 [History] Acetaminophen [Tylenol 8 Hour] 650 mg PO Q4H PRN 10/29/20 [History] Baclofen [Lioresal] 5 mg PO Q8H PRN 10/29/20 [History] Cholestyramine (with Sugar) [Cholestyramine Packet] 4 gm PO BID@0800,169910/29/20 [History] Docusate [Colace] 100 mg PO BID@0800,169910/29/20 [History] Mupirocin 2% Oint [Bactroban 2% Oint] 1 applic TOPICAL BID@0800,169910/29/20 [History] Triamcinolone 0.1% Cream [Kenalog 0.1% Cream] 1 applic TOPICAL BID@0800,169910/29/20 [History] Lidocaine 4% Cream [Lmx 4] 1 applic TOPICAL Q4H PRN 10/30/20 [Rx] Melatonin 6 mg PO HS #30 tablet 10/30/20 [Rx] Aspirin 81 mg PO DAILY@169911/11/20 [History] Butalb/Acetaminophen/Caffeine [Fioricet 50-300-40 mg Capsule] 1 cap PO Q6H PRN 11/11/20 [History] Ipratropium-Albuterol Nebulize [Duoneb 0.5 mg-3 mg/3 ml Soln] 3 ml INHALATION RT-Q6H PRN 11/11/20 [History] Magnesium Hydroxide [Milk of Magnesia Concentrate] 7,200 mg PO Q48H PRN 11/11/20 [History] Menthol-Zinc Oxide Oint [Calmoseptine Oint] 1 applic TOPICAL BID 11/11/20 [History] Oxymetazoline 0.05% Nasl [place] [Afrin 0.05% Nasal [place]] 1 spray EA NOSTRIL Q12H PRN 11/11/20 [History] Polyethylene Glycol 3350 [Miralax] 17 gm PO DAILY@0800 11/11/20 [History] Vancomycin HCl in 5 % Dextrose [Vancomycin 1 Gram/250 ml-D5w] 1 gm IV TUTHSA 11/11/20 [History] hydrOXYzine HCL 25 mg PO Q8H PRN 11/11/20 [History] ALPRAZolam [Xanax] 0.25 mg PO BID PRN #6 tab 11/15/20 [Rx] Cyanocobalamin [Vitamin B-12] 500 mcg PO DAILY #30 tablet 11/15/20 [Rx] Gabapentin 300 mg PO HS@2100 #3 cap 11/15/20 [Rx] HYDROcodone/APAP 5-325MG [[place] 5-325] 1 tab PO Q4H PRN #18 tab 11/15/20 [Rx] Follow up Appointment(s)/Referral(s): Perry Christian MD [Primary Care Provider] - 1 Week (at [facility]) Ambreen Tolentino Palliative [NON-STAFF] - Discharge Disposition: TRANSFER TO SNF/ECF
[2020-11-20] MEDS: CYANOCOBALAMIN 1,000 MCG/ML 1 ML VIAL IM SCH (11:05)
--- NOTE | 2020-11-20 11:21 | P.PN ---
Subjective Patient is seen in follow-up for end-stage renal disease. He is maintained on hemodialysis on Wednesday schedule. No chest pain or shortness of breath. No vomiting or diarrhea. Blood pressure stable. Denies any active bleeding. No problems with dialysis yesterday. Vital signs are stable. General: The patient appeared well nourished and normally developed. HEENT: Head exam is unremarkable. Neck is without jugular venous distension. LUNGS: Breath sounds decreased. HEART: Rate and Rhythm are regular. ABDOMEN: Soft, no distention. EXTREMITITES: 1+ edema. Objective - Vital Signs Vital signs: Vital Signs Temp 98.3 F 11/20/20 07:40 Pulse 53 L 11/20/20 07:40 Resp 18 11/20/20 07:40 BP 157/76 11/20/20 07:40 Pulse Ox 95 11/20/20 08:08 Intake & Output 11/19/20 11/20/20 11/20/20 18:59 06:59 18:59 Intake Total 480 840 Output Total 5000 0 Balance -4520 840 Intake: Oral 480 840 Output: Urine 0 Hemodialysis 5000 Other: # Bowel Movements 1 1 - Labs CBC & Chem 7: 11/15/20 06:26 11/15/20 06:26 Labs: Abnormal Lab Results - Last 24 Hours (Table) 11/19/20 11/19/20 11/19/20 Range/Units 11:27 16:39 21:12 POC Glucose (mg/dL) 183 H 139 H 237 H (75-99) mg/dL 11/20/20 Range/Units 07:02 POC Glucose (mg/dL) 213 H (75-99) mg/dL Microbiology - Last 24 Hours (Table) 11/18/20 13:55 Blood Culture - Preliminary Blood No Growth after 24 hours 11/18/20 12:44 Blood Culture - Preliminary Blood No Growth after 24 hours Assessment and Plan Plan: Assessment: 1. End-stage renal disease maintained on hemodialysis on Wednesday schedule. 2. Acute GI bleed status post EGD which revealed antral gastritis. Status post blood transfusion this admission. On Aranesp. 3. History of A. fib. 4. Diabetes mellitus. 5. Hypertension with chronic kidney disease. 6. MRSA bacteremia secondary to mitral valve endocarditis and paraspinal abscess on antibiotics. Plan: Hemodialysis tomorrow. Monitor vancomycin levels. Target level near 15. Phosphorus 5.1. Hold hydralazine for systolic blood pressure less than 125.
[2020-11-20 11:27] LABS: Glucose,Whole Blood 235 mg/dL (75-99)
--- NOTE | 2020-11-20 15:44 | PN ---
PROGRESS NOTE DATE OF SERVICE: 11/20/2020 REASON FOR FOLLOWUP: MRSA bacteremia secondary to mitral valve endocarditis and cervical paraspinal abscess. INTERVAL HISTORY: The patient is afebrile. The patient is feeling better, breathing comfortably. No chest pain, shortness of breath or cough. No abdominal pain or any diarrhea. PHYSICAL EXAMINATION: Blood pressure 157/76, pulse of 53, temperature 98.3. He is 99% on room air. GENERAL DESCRIPTION: General description is a middle-aged male lying in bed in no distress. RESPIRATORY SYSTEM: Unlabored breathing. Clear to auscultation anteriorly. HEART: S1, S2. Regular rate and rhythm. ABDOMEN: Soft. No tenderness. LABS: 3.9. DIAGNOSTIC IMPRESSION AND PLAN: Patient with MRSA bacteremia secondary to mitral valve endocarditis with a concern for cervical paraspinal abscess; has been treated medically. Patient continue to finish a 6-week course of therapy and follow up with his physician at [facility] with close outpatient followup. MMODL / IJN: [id number] /
[2020-11-21 07:25] LABS: Acetylchol Recept Bind Ab <0.30 nmol/L
== END 2020-11-20 14:09 | DRG 288 ==
LOC: EC 17:13 → 4SSUR 17:44 → 2SICU 11-12 11:11 → 4SSUR 11-13 18:52
PROVIDERS: ADMIT Internal Medicine Geriatric Medicine; ATTEND Internal Medicine Geriatric Medicine
PROC: 30233N1 Transfusion of Nonautologous Red Blood Cells into Peripheral Vein, Percutaneous Approach (ICD-10-PCS; principal; 2020-11-12)
PROC: 5A1D70Z Performance of Urinary Filtration, Intermittent, Less than 6 Hours Per Day (ICD-10-PCS; 2020-11-12)
PROC: 0DB78ZX Excision of Stomach, Pylorus, Via Natural or Artificial Opening Endoscopic, Diagnostic (ICD-10-PCS; 2020-11-15)
DX: I33.0 Acute and subacute infective endocarditis (principal); G92 Toxic encephalopathy; N18.6 End stage renal disease; D62 Acute posthemorrhagic anemia; E87.2 Acidosis; I13.2 Hypertensive heart and chronic kidney disease with heart failure and with stage 5 chronic kidney disease, or end stage renal disease; I31.9 Disease of pericardium, unspecified; I48.20 Chronic atrial fibrillation, unspecified; I50.32 Chronic diastolic (congestive) heart failure; A18.01 Tuberculosis of spine; R78.81 Bacteremia; K92.1 Melena; D63.1 Anemia in chronic kidney disease; E11.22 Type 2 diabetes mellitus with diabetic chronic kidney disease; E11.319 Type 2 diabetes mellitus with unspecified diabetic retinopathy without macular edema; E11.42 Type 2 diabetes mellitus with diabetic polyneuropathy; E11.69 Type 2 diabetes mellitus with other specified complication; E66.9 Obesity, unspecified; Z68.34 Body mass index [BMI] 34.0-34.9, adult; Z20.822 Contact with and (suspected) exposure to COVID-19; Z86.74 Personal history of sudden cardiac arrest; I70.0 Atherosclerosis of aorta; Z99.2 Dependence on renal dialysis; F32.9 Major depressive disorder, single episode, unspecified; I08.3 Combined rheumatic disorders of mitral, aortic and tricuspid valves; I27.20 Pulmonary hypertension, unspecified; G25.81 Restless legs syndrome; E83.9 Disorder of mineral metabolism, unspecified; B95.62 Methicillin resistant Staphylococcus aureus infection as the cause of diseases classified elsewhere; E87.5 Hyperkalemia; E53.8 Deficiency of other specified B group vitamins; F41.9 Anxiety disorder, unspecified; E78.5 Hyperlipidemia, unspecified; H54.8 Legal blindness, as defined in USA; H91.90 Unspecified hearing loss, unspecified ear; I25.10 Atherosclerotic heart disease of native coronary artery without angina pectoris; I25.2 Old myocardial infarction; I25.5 Ischemic cardiomyopathy; I48.0 Paroxysmal atrial fibrillation; K21.9 Gastro-esophageal reflux disease without esophagitis; K31.7 Polyp of stomach and duodenum; K29.70 Gastritis, unspecified, without bleeding; M48.00 Spinal stenosis, site unspecified; Z66 Do not resuscitate; Z79.01 Long term (current) use of anticoagulants; Z79.4 Long term (current) use of insulin; Z79.82 Long term (current) use of aspirin; Z79.899 Other long term (current) drug therapy; Z80.8 Family history of malignant neoplasm of other organs or systems; Z86.14 Personal history of Methicillin resistant Staphylococcus aureus infection; Z83.3 Family history of diabetes mellitus; Z82.49 Family history of ischemic heart disease and other diseases of the circulatory system; Z82.61 Family history of arthritis; Z83.2 Family history of diseases of the blood and blood-forming organs and certain disorders involving the immune mechanism; Z87.891 Personal history of nicotine dependence; Z95.5 Presence of coronary angioplasty implant and graft; Z99.3 Dependence on wheelchair; Z86.010 Personal history of colon polyps; T50.915A Adverse effect of multiple unspecified drugs, medicaments and biological substances, initial encounter; Z87.11 Personal history of peptic ulcer disease
CPT/HCPCS: 36415; 36600; 43239; 70450; 71045; 80048; 80053; 80074; 80202; 82272; 82550; 82607; 82728; 82746; 82805; 83036; 83519; 83540; 83550; 83690; 83735; 83880; 83921; 84100; 84207; 85025; 85027; 85045; 86850; 86900; 86901; 86920; 87040; 87635; 88305; 90935; 93005; 93308; 94640; 94660; 94760; 99285

== ENCOUNTER 2020-11-28 01:56 | Emergency (ER) | payer MEDICARE ==
[2020-11-28 02:06] VITALS: BP 165/75; PULSE 59; RESP 16; TEMP 98.6
--- NOTE | 2020-11-28 02:11 | ED ---
ENT HPI - General Chief complaint: ENT Stated complaint: ENT Time Seen by Provider: 11/28/20 02:05 Source: patient, EMS, RN notes reviewed, old records reviewed Mode of arrival: EMS Limitations: physical limitation - History of Present Illness Initial comments: This is a 60-year-old male to the ER today. Patient does feed emergency department for evaluation regards to headache dizziness ear pain. Patient states he went to blow his nose while blowing his nose C7\\an increased amount of pain in both his head and sinus area. Patient presents with complaints of that pain now. MD complaint: ear pain, difficulty swallowing, trauma/injury -: hour(s) Location: R ear, L ear, nose Severity: moderate Severity scale (1-10): 4 Quality: aching Consistency: constant Improves with: none Worsens with: none Associated Symptoms: pain with swallowing, tinnitus, hearing loss - Related Data Home Medications Medication Instructions Recorded Confirmed Furosemide [Lasix] 80 mg PO BID@0600,1400 04/13/19 11/11/20 Ferrous Sulfate [Iron (65 MG 325 mg PO DAILY@1700 08/12/20 11/11/20 Elemental)] INSULIN ASPART (NovoLOG) [NovoLOG See Protocol SQ ACHS 08/12/20 11/11/20 (formulary)] Insulin Detemir (Levemir) [Levemir] 5 unit SQ HS@209908/12/20 11/11/20 bisacodyL [Dulcolax] 10 mg RECTAL DAILY PRN 08/12/20 11/11/20 Amiodarone [Cordarone] 200 mg PO DAILY@0809/19/20 11/11/20 Apixaban [Eliquis] 2.5 mg PO BID@0800,209909/19/20 11/11/20 Atorvastatin [Lipitor] 40 mg PO HS 09/19/20 11/11/20 Liquacel 30 ml PO BID@0800,209909/19/20 11/11/20 Metoprolol Tartrate [Lopressor] 25 mg PO BID@0800,209909/19/20 11/11/20 hydrALAZINE HCL [Apresoline] 75 mg PO TID@0600,1400,209909/19/20 11/11/20 metOLazone [Zaroxolyn] 5 mg PO DAILY@0800 09/19/20 11/11/20 Acetaminophen [Tylenol 8 Hour] 650 mg PO Q4H PRN 10/29/20 11/11/20 Baclofen [Lioresal] 5 mg PO Q8H PRN 10/29/20 11/11/20 Cholestyramine (with Sugar) 4 gm PO BID@0800,1700 10/29/20 11/11/20 [Cholestyramine Packet] Docusate [Colace] 100 mg PO BID@0800,1700 10/29/20 11/11/20 Mupirocin 2% Oint [Bactroban 2% 1 applic TOPICAL BID@0800,1700 10/29/20 11/11/20 Oint] Triamcinolone 0.1% Cream [Kenalog 1 applic TOPICAL BID@0800,1700 10/29/20 11/11/20 0.1% Cream] Aspirin 81 mg PO DAILY@1700 11/11/20 11/11/20 Butalb/Acetaminophen/Caffeine 1 cap PO Q6H PRN 11/11/20 11/11/20 [Fioricet 50-300-40 mg Capsule] Ipratropium-Albuterol Nebulize 3 ml INHALATION RT-Q6H PRN 11/11/20 11/11/20 [Duoneb 0.5 mg-3 mg/3 ml Soln] Magnesium Hydroxide [Milk of 7,200 mg PO Q48H PRN 11/11/20 11/11/20 Magnesia Concentrate] Menthol-Zinc Oxide Oint 1 applic TOPICAL BID 11/11/20 11/11/20 [Calmoseptine Oint] Oxymetazoline 0.05% Nasl [place] 1 spray EA NOSTRIL Q12H PRN 11/11/20 11/11/20 [Afrin 0.05% Nasal [place]] Polyethylene Glycol 3350 [Miralax] 17 gm PO DAILY@0800 11/11/20 11/11/20 Vancomycin HCl in 5 % Dextrose 1 gm IV TUTHSA 11/11/20 11/11/20 [Vancomycin 1 Gram/250 ml-D5w] hydrOXYzine HCL 25 mg PO Q8H PRN 11/11/20 11/11/20 Previous Rx's Medication Instructions Recorded Lidocaine 4% Cream [Lmx 4] 1 applic TOPICAL Q4H PRN 10/30/20 Melatonin 6 mg PO HS #30 tablet 10/30/20 ALPRAZolam [Xanax] 0.25 mg PO BID PRN #6 tab 11/15/20 Cyanocobalamin [Vitamin B-12] 500 mcg PO DAILY #30 tablet 11/15/20 Gabapentin 300 mg PO HS@2100 #3 cap 11/15/20 HYDROcodone/APAP 5-325MG [[place] 1 tab PO Q4H PRN #18 tab 11/15/20 5-325] Allergies Allergy/AdvReac Type Severity Reaction Status Date / Time codeine Allergy Unknown Verified 11/11/20 13:20 Penicillins Allergy Anaphylaxis Verified 11/11/20 13:20 sulfadiazine Allergy Unknown Verified 11/11/20 13:20 bumetanide [From Bumex] AdvReac Hallucinati Verified 11/11/20 13:20 ons morphine AdvReac Confusion Verified 11/11/20 13:20 rivaroxaban [From Xarelto] AdvReac Bloody Nose Verified 11/11/20 13:20 spironolactone AdvReac Hallucinati Verified 11/11/20 13:20 ons All antibiotics except Keflex Allergy Unknown Uncoded 09/19/20 06:44 Childhood Review of Systems ROS Statement: Those systems with pertinent positive or pertinent negative responses have been documented in the HPI. ROS Other: All systems not noted in ROS Statement are negative. Past Medical History Past Medical History: Atrial Fibrillation, Coronary Artery Disease (CAD), Heart Failure, Diabetes Mellitus, Dialysis, Eye Disorder, GERD/Reflux, Hearing Disorder / Deafness, Hyperlipidemia, Hypertension, Myocardial Infarction ([place]), Renal Disease, Syncope Additional Past Medical History / Comment(s): IDDM type II, neuropathy bilateral hands/feet, ESRD with hemodialysis on /W/, chronic anemia, LVH, Afib with RVR, MIs, chronic CHF, R eye blindness, L eye legally blind, RLS, pt unsure if he has gout, vertigo at times, balance issues at times, stomach ulcer at age 17yrs, sinus problems, very [place] R ear. Last Myocardial Infarction Date:: 08/09/18 History of Any Multi-Drug Resistant Organisms: MRSA Date of last positivie culture/infection: 09/20/20 MDRO Source:: Blood Past Surgical History: Heart Catheterization, Heart Catheterization With Stent Additional Past Surgical History / Comment(s): TTT, PD catheter placement/since removed, 2017 L arm fistula, fistula gram with balloon for stenosis, L eye vitrectomy, thyroid needle aspiration-negative, L leg cyst, colonoscopy with benign polypectomy. port placed in chest Right side. Past Anesthesia/Blood Transfusion Reactions: Postoperative Nausea & Vomiting (PONV) Date of Last Stent Placement:: 03-03-18 Past Psychological History: Anxiety, Depression Smoking Status: Never smoker Past Alcohol Use History: None Reported Past Drug Use History: None Reported - Past Family History Father Family Medical History: Cancer, Coronary Artery Disease (CAD), Hyperlipidemia Additional Family Medical History / Comment(s): Lung/BRAIN CANCER Mother Family Medical History: Diabetes Mellitus, Deep Vein Thrombosis (DVT), Osteoarthritis (OA) Additional Family Medical History / Comment(s): DJD Sister(s) Family Medical History: Diabetes Mellitus Additional Family Medical History / Comment(s): Patient has one sister with diabetes mellitus type 2, SLE, MS. Brother(s) Family Medical History: Diabetes Mellitus Additional Family Medical History / Comment(s): Patient has 4 kids no major medical problems. Daughter(s) Family Medical History: No Reported History Additional Family Medical History / Comment(s): Patient has 2 daughters no major medical problems. Son(s) Family Medical History: No Reported History Additional Family Medical History / Comment(s): Patient has 2 sons no major medical problems. General Exam Limitations: physical limitation General appearance: alert, in no apparent distress Head exam: Present: atraumatic, normocephalic, normal inspection Eye exam: Present: normal appearance, PERRL, EOMI. Absent: scleral icterus, conjunctival injection, periorbital swelling ENT exam: Present: normal exam, mucous membranes moist Neck exam: Present: normal inspection. Absent: tenderness, meningismus, lymphadenopathy Respiratory exam: Present: normal lung sounds bilaterally. Absent: respiratory distress, wheezes, rales, rhonchi, stridor Cardiovascular Exam: Present: regular rate, normal rhythm, normal heart sounds. Absent: systolic murmur, diastolic murmur, rubs, gallop, clicks GI/Abdominal exam: Present: soft, normal bowel sounds. Absent: distended, tenderness, guarding, rebound, rigid Extremities exam: Present: normal inspection, full ROM, normal capillary refill. Absent: tenderness, pedal edema, joint swelling, calf tenderness Back exam: Present: normal inspection Neurological exam: Present: alert, oriented X3, CN II-XII intact Psychiatric exam: Present: normal affect, normal mood Skin exam: Present: warm, dry, intact, normal color. Absent: rash Course Vital Signs 11/28/20 02:01 Temperature 98.6 F Pulse Rate 59 L Respiratory 16 Rate Blood Pressure 165/75 O2 Sat by Pulse 97 Oximetry - Reevaluation(s) Reevaluation #1: 11/28/20 02:11 Medical record is reviewed Reevaluation #2: 11/28/20 03:36 Patient is in no acute distress Reevaluation #3: 11/28/20 03:36 Patient informed results and questions answered Medical Decision Making - Medical Decision Making 60 male DF for evaluation of increased headache pressure After sneezing. No acute cause found here in the ER patient can be discharged home - Radiology Data Radiology results: report reviewed (CT brain is negative for acute disease), image reviewed Disposition Clinical Impression: Rhinitis, Headache Disposition: HOME SELF-CARE Condition: Good Instructions (If sedation given, give patient instructions): Sinusitis (ED), Acute Headache (ED) Is patient prescribed a controlled substance at d/c from ED?: No Referrals: Perry Christian MD [Primary Care Provider] - 1-2 days
--- NOTE | 2020-11-28 03:10 | CT ---
EXAMINATION TYPE: CT brain wo con DATE OF EXAM: 11/28/2020 COMPARISON: 11/11/2020 HISTORY: headache CT DLP: 1135.4 mGycm Automated exposure control for dose reduction was used. There is mild cerebral atrophy. There is no mass effect nor midline shift. There is no sign of intrac ranial hemorrhage. The calvarium is intact. There is some posterior fossa amorphous calcification that apparently relates to densely calcified ve rtebral arteries. There is normal aeration of the mastoid sinuses. IMPRESSION: Cerebral atrophy. No acute intracranial abnormality. No change.
== END 2020-11-28 04:26 | disposition home or self-care (01) ==
LOC: EC 01:56
DX: J31.0 Chronic rhinitis (principal); E11.22 Type 2 diabetes mellitus with diabetic chronic kidney disease; E11.40 Type 2 diabetes mellitus with diabetic neuropathy, unspecified; I13.2 Hypertensive heart and chronic kidney disease with heart failure and with stage 5 chronic kidney disease, or end stage renal disease; I50.9 Heart failure, unspecified; N18.6 End stage renal disease; I48.91 Unspecified atrial fibrillation; I25.10 Atherosclerotic heart disease of native coronary artery without angina pectoris; I25.2 Old myocardial infarction; E78.5 Hyperlipidemia, unspecified; F41.9 Anxiety disorder, unspecified; K21.9 Gastro-esophageal reflux disease without esophagitis; F32.9 Major depressive disorder, single episode, unspecified; Z79.4 Long term (current) use of insulin; Z79.01 Long term (current) use of anticoagulants; Z79.82 Long term (current) use of aspirin; Z79.899 Other long term (current) drug therapy; Z88.0 Allergy status to penicillin; Z88.2 Allergy status to sulfonamides; Z88.5 Allergy status to narcotic agent; Z88.6 Allergy status to analgesic agent; Z88.8 Allergy status to other drugs, medicaments and biological substances; Z88.1 Allergy status to other antibiotic agents; Z99.2 Dependence on renal dialysis; Z83.49 Family history of other endocrine, nutritional and metabolic diseases; Z83.3 Family history of diabetes mellitus; Z82.49 Family history of ischemic heart disease and other diseases of the circulatory system
CPT/HCPCS: 70450; 99284

== ENCOUNTER 2020-11-30 17:51 | Observation (INO) | payer MEDICARE ==
[2020-11-30 18:31] LABS: Glucose,Whole Blood 161 mg/dL (75-99)
[2020-11-30] MEDS ORDERED: NITROGLYCERIN SL TABS 0.4 MG TAB SUBLINGUAL STA (18:37)
--- NOTE | 2020-11-30 19:13 | ED ---
General Adult HPI - General Chief complaint: Shortness of Breath Stated complaint: High BP Time Seen by Provider: 11/30/20 18:23 Source: patient, EMS, RN notes reviewed, old records reviewed Mode of arrival: EMS Limitations: no limitations - History of Present Illness Initial comments: I evaluated the patient and he was placed in a room. Patient is a 60-year-old male with past medical history remarkable for A. fib, ESRD on hemodialysis, diabetes, hyperlipidemia, hypertension, prior MIs who presents from [facility] for difficulty breathing and missed dialysis. Patient missed dialysis today. Has been having increased work of breathing. He normally is not on oxygen. He was hypoxic on room air. Is also acting somewhat more sleepy and slow to respond to answers. He states he is having some difficulty breathing but denies any chest pain. Denies any abdominal pain, nausea, vomiting. Denies any extremity pain. He has no headache. Denies any drug use. Unclear why he missed dialysis today. He states he has not missed multiple rounds of dialysis. He presents emergency department for concern for fluid overload state as well as missed dialysis. - Related Data Home Medications Medication Instructions Recorded Confirmed Furosemide [Lasix] 80 mg PO BID@0600,1400 04/13/19 11/30/20 Ferrous Sulfate [Iron (65 MG 325 mg PO DAILY@1700 08/12/20 11/30/20 Elemental)] INSULIN ASPART (NovoLOG) [NovoLOG See Protocol SQ 08/12/20 11/30/20 (formulary)] ACHS@07,11,1630,2130 Insulin Detemir (Levemir) [Levemir] 5 unit SQ HS@209908/12/20 11/30/20 bisacodyL [Dulcolax] 10 mg RECTAL DAILY PRN 08/12/20 11/30/20 Amiodarone [Cordarone] 200 mg PO DAILY@0800 09/19/20 11/30/20 Apixaban [Eliquis] 2.5 mg PO BID@0800,209909/19/20 11/30/20 Atorvastatin [Lipitor] 40 mg PO HS@209909/19/20 11/30/20 Liquacel 30 ml PO BID@0800,209909/19/20 11/30/20 Metoprolol Tartrate [Lopressor] 25 mg PO BID@0800,209909/19/20 11/30/20 hydrALAZINE HCL [Apresoline] 75 mg PO TID@0600,1400,209909/19/20 11/30/20 metOLazone [Zaroxolyn] 5 mg PO DAILY@0800 09/19/20 11/30/20 Acetaminophen [Tylenol 8 Hour] 650 mg PO Q4H PRN 10/29/20 11/30/20 Baclofen [Lioresal] 5 mg PO Q8H PRN 10/29/20 11/30/20 Cholestyramine (with Sugar) 4 gm PO BID@0800,17010/29/20 11/30/20 [Cholestyramine Packet] Docusate [Colace] 100 mg PO BID@0800,17010/29/20 11/30/20 Aspirin 81 mg PO DAILY@169911/11/20 11/30/20 Butalb/Acetaminophen/Caffeine 1 cap PO Q6H PRN 11/11/20 11/30/20 [Fioricet 50-300-40 mg Capsule] Ipratropium-Albuterol Nebulize 3 ml INHALATION RT-Q6H PRN 11/11/20 11/30/20 [Duoneb 0.5 mg-3 mg/3 ml Soln] Magnesium Hydroxide [Milk of 7,200 mg PO Q48H PRN 11/11/20 11/30/20 Magnesia Concentrate] Menthol-Zinc Oxide Oint 1 applic TOPICAL BID 11/11/20 11/30/20 [Calmoseptine Oint] Oxymetazoline 0.05% Nasl Whiting 1 spray EA NOSTRIL Q12H PRN 11/11/20 11/30/20 [Afrin 0.05% Nasal Whiting] Polyethylene Glycol 3350 [Miralax] 17 gm PO DAILY@0811/11/20 11/30/20 hydrOXYzine HCL 25 mg PO Q8H PRN 11/11/20 11/30/20 Cyanocobalamin [Vitamin B-12] 500 mcg PO DAILY@0800 11/30/20 11/30/20 Melatonin 6 mg PO HS@209911/30/20 11/30/20 Na Phos,M-B/Na Phos,Di-Ba [Fleet 133 ml RECTAL DAILY PRN 11/30/20 11/30/20 Adult] Promethazine Hcl 25mg Solution 25 mg IM Q6H PRN 11/30/20 11/30/20 Previous Rx's Medication Instructions Recorded Lidocaine 4% Cream [Lmx 4] 1 applic TOPICAL Q4H PRN 10/30/20 ALPRAZolam [Xanax] 0.25 mg PO BID PRN #6 tab 11/15/20 Gabapentin 300 mg PO HS@2100 #3 cap 11/15/20 HYDROcodone/APAP 5-325MG [Wharton 1 tab PO Q4H PRN #18 tab 11/15/20 5-325] Allergies Allergy/AdvReac Type Severity Reaction Status Date / Time codeine Allergy Unknown Verified 11/30/20 19:00 Penicillins Allergy Anaphylaxis Verified 11/30/20 19:00 sulfadiazine Allergy Unknown Verified 11/30/20 19:00 bumetanide [From Bumex] AdvReac Hallucinati Verified 11/30/20 19:00 ons morphine AdvReac Confusion Verified 11/30/20 19:00 rivaroxaban [From Xarelto] AdvReac Bloody Nose Verified 11/30/20 19:00 spironolactone AdvReac Hallucinati Verified 11/30/20 19:00 ons All antibiotics except Keflex Allergy Unknown Uncoded 11/30/20 19:00 Childhood Review of Systems ROS Statement: Those systems with pertinent positive or pertinent negative responses have been documented in the HPI. Review of Systems: CONST: Denies fever EYES: Denies blurry vision ENT: Denies nasal congestion C/V: Denies Chest pain RESP: Endorses shortness of breath GI: Denies abdominal pain : Denies dysuria SKIN: Denies rash. MSK: Denies joint pain. NEURO: Denies headache ROS Other: All systems not noted in ROS Statement are negative. Past Medical History Past Medical History: Atrial Fibrillation, Coronary Artery Disease (CAD), Heart Failure, Diabetes Mellitus, Dialysis, Eye Disorder, GERD/Reflux, Hearing Disorder / Deafness, Hyperlipidemia, Hypertension, Myocardial Infarction (MT), Renal Disease, Syncope Additional Past Medical History / Comment(s): IDDM type II, neuropathy bilateral hands/feet, ESRD with hemodialysis on M/W/F, chronic anemia, LVH, Afib with RVR, MIs, chronic CHF, R eye blindness, L eye legally blind, RLS, pt unsure if he has gout, vertigo at times, balance issues at times, stomach ulcer at age 17yrs, si nus problems, very [place] R ear. Last Myocardial Infarction Date:: 08/09/18 History of Any Multi-Drug Resistant Organisms: MRSA Date of last positivie culture/infection: 09/20/20 MDRO Source:: Blood Past Surgical History: Heart Catheterization, Heart Catheterization With Stent Additional Past Surgical History / Comment(s): TTT, PD catheter placement/since removed, 2016 L arm fistula, fistula gram with balloon for stenosis, L eye vitrectomy, thyroid needle aspiration-negative, L leg cyst, colonoscopy with benign polypectomy. port placed in chest Right side. Past Anesthesia/Blood Transfusion Reactions: Postoperative Nausea & Vomiting (PONV) Date of Last Stent Placement:: 03-03-18 Past Psychological History: Anxiety, Depression Smoking Status: Never smoker Past Alcohol Use History: None Reported Past Drug Use History: None Reported - Past Family History Father Family Medical History: Cancer, Coronary Artery Disease (CAD), Hyperlipidemia Additional Family Medical History / Comment(s): Lung/BRAIN CANCER Mother Family Medical History: Diabetes Mellitus, Deep Vein Thrombosis (DVT), O steoarthritis (OA) Additional Family Medical History / Comment(s): DJD Sister(s) Family Medical History: Diabetes Mellitus Additional Family Medical History / Comment(s): Patient has one sister with diabetes mellitus type 2, SLE, MS. Brother(s) Family Medical History: Diabetes Mellitus Additional Family Medical History / Comment(s): Patient has 4 kids no major medical problems. Daughter(s) Family Medical History: No Reported History Additional Family Medical History / Comment(s): Patient has 2 daughters no major medical problems. Son(s) Family Medical History: No Reported History Additional Family Medical History / Comment(s): Patient has 2 sons no major medical problems. General Exam - General Exam Comments Initial Comments: General: Appears in no acute distress. HEAD: Patient has a cold bruise located near the right eye. He was recently seen and had a CT head that was negative for acute intracranial trauma after a fall. EYES: PERRLA, EOMI, conjunctiva normal, no discharge. Pupils are 3 mm and equal bilaterally. ENT: Hearing grossly intact, normal oropharynx. RESPIRATORY: Patient's bilateral crackles. Minimally increased work of breathing. C/V: Regular rate and rhythm. S1 and S2 auscultated. Patient is 3+ pitting edema up to the level of the knees. Peripheral pulses are 2+ intact throughout. Left upper extremity AV fistula has a palpable thrill and audible bruit. ABD: Abd is soft, nontender, nondistended EXT: Normal range of motion, no obvious deformity SKIN: No rashes or lesions observed on exposed skin. NEURO: Alert and oriented 4. Patient is slow to respond to questions. NIH is 0. GCS is 15. No focal deficits appreciated except for slow response to questions. Limitations: no limitations Course Vital Signs 11/30/20 11/30/20 11/30/20 18:09 18:36 20:50 Temperature 97.6 F Pulse Rate 55 L 52 L Respiratory 18 20 14 Rate Blood Pressure 193/59 164/84 O2 Sat by Pulse 100 100 Oximetry Procedures - ABG Interpretation Ph: 7.335 PCO2: 54 PO2: 106 Bicarbonate: 28.8 Interpretation: respiratory acidosis, metabolic alkalosis Medical Decision Making - Medical Decision Making Based on the patient's presentation and physical exam, I do believe he is likely expressing a volume overloaded state resulting in pulmonary edema causing his difficulty breathing at this time. This is likely secondary to missed dialysis. However he does seem slow to respond to questions with head trauma. Gaze ago, I would like to obtain a CT head in addition to basic and cardiac laboratory studies including troponin, EKG, chest x-ray. Patient is comfortable on nasal cannula oxygen at this time and saturating well, therefore we will obtain a VBG as well as a CT head to evaluate for his slow response to ensure there is no intracranial pathology. Patient was in agreement with this plan. He'll be given a sublingual nitroglycerin tablet to see if we can minimally improved his blood pressure at this time. He likely will require admission and dialysis. Patient's EKG did not reveal signs of acute hyperkalemia. This EKG is unchanged from prior EKGs. No signs of acute ischemia either.Patient's chest x-ray is concerning for pulmonary edema likely secondary to fluid overload state. Patient's head CT of the brain revealed no acute cranial process. There is cerebral atrophy present. Patient's lavatory studies are remarkable for a chronic macrocytic anemia with a hemoglobin of 10.4. An ABG was obtained as patient was slightly sleepy and slow to respond which was relatively normal, with a mild likely chronic respiratory acidosis that is somewhat corrected. Patient has an elevated BUN/creatinine in the setting of CK D. Magnesium is slightly elevated 2.6. Troponin is indeterminate at 0.015. BNP is elevated to 33,000. Covid is not detected. On reevaluation, patient remains much the same. Vital signs are stable. He never required the antihypertensive nitroglycerin as his systolic blood pressure is improved less than 160. We'll continue to monitor his blood pressure. I spoke with on-call nephrology and Dr. Edmondson who was in agreement that the patient requires dialysis but can wait until morning. He will be consulted. I discussed with the patient and he will be admitted for dialysis and he was in agreement this plan. I spoke with the admitting team under Dr. Christian who was in agreement with this plan. Patient was admitted to a telemetry bed in serious condition. - Lab Data Result diagrams: 11/30/20 18:59 11/30/20 18:59 Lab Results 11/30/20 11/30/20 11/30/20 Range/Units 18:30 18:59 18:59 WBC 6.1 (3.8-10.6) k/uL RBC 3.20 L (4.30-5.90) m/uL Hgb 10.4 L (13.0-17.5) gm/dL Hct 32.6 L (39.0-53.0) % MCV 102.0 H (80.0-100.0) fL MCH 32.4 (25.0-35.0) pg MCHC 31.8 (31.0-37.0) g/dL RDW 18.1 H (11.5-15.5) % Plt Count 185 (150-450) k/uL MPV 7.8 Neutrophils % 72 % Lymphocytes % 9 % Monocytes % 7 % Eosinophils % 8 % Basophils % 1 % Neutrophils # 4.4 (1.3-7.7) k/uL Lymphocytes # 0.6 L (1.0-4.8) k/uL Monocytes # 0.5 (0-1.0) k/uL Eosinophils # 0.5 (0-0.7) k/uL Basophils # 0.0 (0-0.2) k/uL Anisocytosis Slight Macrocytosis Moderate PT 10.9 (9.0-12.0) sec INR 1.0 (<1.2) APTT 24.9 (22.0-30.0) sec Sample Site ABG pH (7.35-7.45) ABG pCO2 (35-45) mmHg ABG pO2 (83-108) mmHg ABG HCO3 (21-25) mmol/L ABG Total CO2 (19-24) mmol/L ABG O2 Saturation (94-97) % ABG Base Excess mmol/L Juan Test FiO2 % Sodium (137-145) mmol/L Potassium (3.5-5.1) mmol/L Chloride (98-107) mmol/L Carbon Dioxide (22-30) mmol/L Anion Gap mmol/L BUN (9-20) mg/dL Creatinine (0.66-1.25) mg/dL Est GFR (CKD-EPI)AfAm (>60 ml/min/1.73 sqM) Est GFR (CKD-EPI)NonAf (>60 ml/min/1.73 sqM) Glucose (74-99) mg/dL POC Glucose (mg/dL) 161 H (75-99) mg/dL POC Glu Powerbuilder ID Svacha, II, Nithin Plasma Lactic Acid Ramirez (0.7-2.0) mmol/L Calcium (8.4-10.2) mg/dL Magnesium (1.6-2.3) mg/dL Total Bilirubin (0.2-1.3) mg/dL AST (17-59) U/L ALT (4-49) U/L Alkaline Phosphatase (38-126) U/L Ammonia (<30) umol/L Troponin I (0.000-0.034) ng/mL NT-Pro-B Natriuret Pep pg/mL Total Protein (6.3-8.2) g/dL Albumin (3.5-5.0) g/dL Coronavirus (PCR) (Not Detectd) 11/30/20 11/30/20 11/30/20 Range/Units 18:59 18:59 18:59 WBC (3.8-10.6) k/uL RBC (4.30-5.90) m/uL Hgb (13.0-17.5) gm/dL Hct (39.0-53.0) % MCV (80.0-100.0) fL MCH (25.0-35.0) pg MCHC (31.0-37.0) g/dL RDW (11.5-15.5) % Plt Count (150-450) k/uL MPV Neutrophils % % Lymphocytes % % Monocytes % % Eosinophils % % Basophils % % Neutrophils # (1.3-7.7) k/uL Lymphocytes # (1.0-4.8) k/uL Monocytes # (0-1.0) k/uL Eosinophils # (0-0.7) k/uL Basophils # (0-0.2) k/uL Anisocytosis Macrocytosis PT (9.0-12.0) sec INR (<1.2) APTT (22.0-30.0) sec Sample Site ABG pH (7.35-7.45) ABG pCO2 (35-45) mmHg ABG pO2 (83-108) mmHg ABG HCO3 (21-25) mmol/L ABG Total CO2 (19-24) mmol/L ABG O2 Saturation (94-97) % ABG Base Excess mmol/L Juan Test FiO2 % Sodium 138 (137-145) mmol/L Potassium 4.6 (3.5-5.1) mmol/L Chloride 100 (98-107) mmol/L Carbon Dioxide 26 (22-30) mmol/L Anion Gap 12 mmol/L BUN 60 H (9-20) mg/dL Creatinine 5.57 H (0.66-1.25) mg/dL Est GFR (CKD-EPI)AfAm 12 (>60 ml/min/1.73 sqM) Est GFR (CKD-EPI)NonAf 10 (>60 ml/min/1.73 sqM) Glucose 155 H (74-99) mg/dL POC Glucose (mg/dL) (75-99) mg/dL POC Glu Powerbuilder ID Plasma Lactic Acid Ramirez 1.2 (0.7-2.0) mmol/L Calcium 9.0 (8.4-10.2) mg/dL Magnesium 2.6 H (1.6-2.3) mg/dL Total Bilirubin 0.5 (0.2-1.3) mg/dL AST 23 (17-59) U/L ALT 23 (4-49) U/L Alkaline Phosphatase 203 H (38-126) U/L Ammonia 29 (<30) umol/L Troponin I 0.015 (0.000-0.034) ng/mL NT-Pro-B Natriuret Pep pg/mL Total Protein 6.7 (6.3-8.2) g/dL Albumin 4.0 (3.5-5.0) g/dL Coronavirus (PCR) (Not Detectd) 11/30/20 11/30/20 11/30/20 Range/Units 18:59 18:59 20:50 WBC (3.8-10.6) k/uL RBC (4.30-5.90) m/uL Hgb (13.0-17.5) gm/dL Hct (39.0-53.0) % MCV (80.0-100.0) fL MCH (25.0-35.0) pg MCHC (31.0-37.0) g/dL RDW (11.5-15.5) % Plt Count (150-450) k/uL MPV Neutrophils % % Lymphocytes % % Monocytes % % Eosinophils % % Basophils % % Neutrophils # (1.3-7.7) k/uL Lymphocytes # (1.0-4.8) k/uL Monocytes # (0-1.0) k/uL Eosinophils # (0-0.7) k/uL Basophils # (0-0.2) k/uL Anisocytosis Macrocytosis PT (9.0-12.0) sec INR (<1.2) APTT (22.0-30.0) sec Sample Site R brachial ABG pH 7.34 L (7.35-7.45) ABG pCO2 54 H (35-45) mmHg ABG pO2 106 (83-108) mmHg ABG HCO3 29 H (21-25) mmol/L ABG Total CO2 31 H (19-24) mmol/L ABG O2 Saturation 98.6 H (94-97) % ABG Base Excess 3.0 mmol/L Juan Test Yes FiO2 28 % Sodium (137-145) mmol/L Potassium (3.5-5.1) mmol/L Chloride (98-107) mmol/L Carbon Dioxide (22-30) mmol/L Anion Gap mmol/L BUN (9-20) mg/dL Creatinine (0.66-1.25) mg/dL Est GFR (CKD-EPI)AfAm (>60 ml/min/1.73 sqM) Est GFR (CKD-EPI)NonAf (>60 ml/min/1.73 sqM) Glucose (74-99) mg/dL POC Glucose (mg/dL) (75-99) mg/dL POC Glu Powerbuilder ID Plasma Lactic Acid Ramirez (0.7-2.0) mmol/L Calcium (8.4-10.2) mg/dL Magnesium (1.6-2.3) mg/dL Total Bilirubin (0.2-1.3) mg/dL AST (17-59) U/L ALT (4-49) U/L Alkaline Phosphatase (38-126) U/L Ammonia (<30) umol/L Troponin I (0.000-0.034) ng/mL NT-Pro-B Natriuret Pep 27447 pg/mL Total Protein (6.3-8.2) g/dL Albumin (3.5-5.0) g/dL Coronavirus (PCR) Not Detected (Not Detectd) - EKG Data -: EKG Interpreted by Me EKG Comments: 12-lead Electrocardiogram Interpretation Note EKG was reviewed and interpreted by myself. 12-lead ECG performed at 1825 is interpreted by me as revealing sinus bradycardia, which the patient does have a history of. At a rate of 56 beats per minute. [place] is normal. MO interval is 202 ms, QRS duration is 82 ms, QTc is 459 ms.. There were no ST or T wave abnormalities to suggest myocardial ischemia or injury. R wave progression across the precordium was satisfactory. By my interpretation this EKG is non- diagnostic for acute ischemia. On comparison with prior EKGs, this EKG is relatively unchanged. Does not appear to have acute hyperkalemic changes. Disposition Clinical Impression: Fluid overload, Congestive heart failure, Missed dialysis, Acute respiratory failure with hypoxia, History of atrial fibrillation, Macrocytic anemia, Hypertension Disposition: ADMITTED IP TO THIS HOSP Condition: Serious Referrals: Perry Christian MD [Primary Care Provider] - 1-2 days
[2020-11-30 19:36] LABS: Anisocytosis Slight; Basophils % (A) 1 %; Eosinophils # (A) 0.5 k/uL (0-0.7); Eosinophils % (A) 8 %; HCT 32.6 % (39.0-53.0); HGB 10.4 gm/dL (13.0-17.5); Lymphocytes # (A) 0.6 k/uL (1.0-4.8); Lymphocytes % (A) 9 %; MCH 32.4 pg (25.0-35.0); MCHC 31.8 g/dL (31.0-37.0); Macrocytosis Moderate; Mean Platelet Volume 7.8; Monocytes # (A) 0.5 k/uL (0-1.0); Monocytes % (A) 7 %; Neutrophils # (A) 4.4 k/uL (1.3-7.7); Neutrophils % (A) 72 %; Platelet Count 185 k/uL (150-450); RDW 18.1 % (11.5-15.5); WBC 6.1 k/uL (3.8-10.6)
[2020-11-30 19:39] LABS: Partial Thromboplastin Time 24.9 sec (22.0-30.0); Prothrombin Time 10.9 sec (9.0-12.0)
[2020-11-30 19:57] LABS: Lactic Acid, Venous 1.2 mmol/L (0.7-2.0)
[2020-11-30 19:59] LABS: Magnesium 2.6 mg/dL (1.6-2.3); Potassium 4.6 mmol/L (3.5-5.1); Total Bilirubin 0.5 mg/dL (0.2-1.3); Total Protein 6.7 g/dL (6.3-8.2)
--- NOTE | 2020-11-30 20:08 | XR ---
EXAMINATION TYPE: XR chest 2V DATE OF EXAM: 11/30/2020 COMPARISON: 11/18/2020 HISTORY: Difficulty breathing TECHNIQUE: 4 views FINDINGS: Heart is enlarged. There is mild pulmonary vascular congestion. Bony thorax is intact. Ther e are small bilateral pleural effusions. IMPRESSION: Pulmonary vascularity increased compared to old exam and suggestive of acute mild heart f ailure.
--- NOTE | 2020-11-30 20:10 | CT ---
EXAMINATION TYPE: CT brain wo con DATE OF EXAM: 11/30/2020 COMPARISON: 11/28/2020 HISTORY: Mental status changes CT DLP: 1216.4 mGycm Automated exposure control for dose reduction was used. Images obtained of the brain without contrast. There is cerebral cortical atrophy. There is no mass effect nor midline shift. There is no sign of in tracranial hemorrhage. The calvarium is intact. There is moderate atherosclerotic vascular calcificat ion Noted. IMPRESSION: Cerebral atrophy. No acute intracranial abnormality. No change.
[2020-11-30 20:53] LABS: ABG HCO3 29 mmol/L (21-25); ABG Oxygen Saturation 98.6 % (94-97); ABG PCO2 54 mmHg (35-45); ABG PH 7.34 (7.35-7.45); ABG PO2 106 mmHg (83-108); ABG TCO2 31 mmol/L (19-24); Allen Test Performed? Yes
[2020-11-30] MEDS ORDERED: NALOXONE 0.4 MG/ML 1 ML VIAL IV PRN (21:10)
[2020-11-30] MEDS ORDERED: bisacodyL 10 MG SUPP RECTAL PRN (21:43)
[2020-11-30] MEDS ORDERED: MAGNESIUM HYDROXIDE 2,400 MG/10 ML CUP PO PRN (21:43)
[2020-11-30] MEDS ORDERED: BACLOFEN 10 MG TAB PO PRN (21:43)
[2020-11-30] MEDS ORDERED: FUROSEMIDE 10 MG/ML 4 ML VIAL IV STA (21:49)
[2020-12-01] MEDS: GABAPENTIN 300 MG CAP PO SCH ×2 (00:22→21:33)
[2020-12-01] MEDS: ACETAMINOPHEN TAB 325 MG TAB PO PRN ×2 (00:22→06:56)
[2020-12-01] MEDS: METOPROLOL TARTRATE 25 MG TAB PO SCH ×3 (00:23→21:32)
[2020-12-01] MEDS: hydrALAZINE HCL 25 MG TAB PO SCH ×5 (00:23→21:32)
[2020-12-01] MEDS: DOCUSATE 100 MG CAP PO SCH ×3 (00:23→21:33)
[2020-12-01] MEDS: APIXABAN 2.5 MG TABLET PO SCH ×3 (00:50→21:32)
[2020-12-01] MEDS: hydrOXYzine HCL 25 MG TAB PO PRN ×3 (01:03→21:34)
[2020-12-01] MEDS: ATORVASTATIN 40 MG TAB PO SCH ×2 (01:03→21:32)
[2020-12-01] MEDS: MELATONIN 3 MG TABLET PO SCH ×2 (01:03→21:32)
[2020-12-01] MEDS: PROMETHAZINE INJ 25 MG/ML 1 ML VIAL IVPB PRN ×2 (01:04→21:33)
[2020-12-01 05:54] LABS: Calcium 8.6 mg/dL (8.4-10.2); Potassium 4.7 mmol/L (3.5-5.1)
[2020-12-01] MEDS ORDERED: NON FORMULARY DRUG (Liquacel 30 ML) PO SCH (08:00)
[2020-12-01] MEDS ORDERED: ACETAMINOPHEN PO PRN (09:16)
[2020-12-01] MEDS ORDERED: BUTALB PO PRN (09:16)
[2020-12-01] MEDS ORDERED: [UNRECOGNIZED DRUG - OTHER] PO PRN (09:16)
[2020-12-01] MEDS ORDERED: CAFFEINE PO PRN (09:16)
[2020-12-01 10:42] LABS: Anisocytosis Slight; Basophils % (A) 1 %; Eosinophils # (A) 0.3 k/uL (0-0.7); Eosinophils % (A) 7 %; HCT 32.2 % (39.0-53.0); HGB 10.3 gm/dL (13.0-17.5); Lymphocytes # (A) 0.3 k/uL (1.0-4.8); Lymphocytes % (A) 8 %; MCH 32.4 pg (25.0-35.0); MCHC 31.9 g/dL (31.0-37.0); MCV 101.7 fL (80.0-100.0); Macrocytosis Moderate; Mean Platelet Volume 8.5; Monocytes # (A) 0.2 k/uL (0-1.0); Monocytes % (A) 5 %; Neutrophils # (A) 3.3 k/uL (1.3-7.7); Neutrophils % (A) 78 %; Platelet Count 148 k/uL (150-450); RBC 3.17 m/uL (4.30-5.90); RDW 18.1 % (11.5-15.5); WBC 4.2 k/uL (3.8-10.6)
--- NOTE | 2020-12-01 10:49 | P.NPCON ---
History of Present Illness - Reason for Consult end stage renal disease - History of Present Illness Reason for consultation: End-stage renal disease History of present illness: Patient is a 60-year-old male seen in renal consultation for end-stage renal disease. Patient was seen and evaluated in the emergency room. Patient is maintained on hemodialysis on Wednesday schedule. He did not receive hemodialysis yesterday. Patient's currently quite tired and is not providing much history. He denies chest pain or shortness of breath. No vomiting or diarrhea. Blood pressure has been stable. Patient presents from [facility] for difficulty breathing. He denies any significant pain. It is unclear as to why he missed hemodialysis. No fever or chills. Potassium level normal. He is currently on 1 L nasal cannula. Vital signs are stable. General: The patient appeared well nourished and normally developed. HEENT: Head exam is unremarkable. LUNGS: Breath sounds decreased. HEART: Rate and Rhythm are regular. ABDOMEN: Soft, no distention. EXTREMITITES: No edema. Past Medical History Past Medical History: Atrial Fibrillation, Coronary Artery Disease (CAD), Heart Failure, Diabetes Mellitus, Dialysis, Eye Disorder, GERD/Reflux, Hearing Disorder / Deafness, Hyperlipidemia, Hypertension, Myocardial Infarction (CT), Renal Disease, Syncope Additional Past Medical History / Comment(s): IDDM type II, neuropathy bilateral hands/feet, ESRD with hemodialysis on //, chronic anemia, LVH, Afib with RVR, MIs, chronic CHF, R eye blindness, L eye legally blind, RLS, pt unsure if he has gout, vertigo at times, balance issues at times, stomach ulcer at age 17yrs, sinus problems, very [place] R ear. Last Myocardial Infarction Date:: 08/09/18 History of Any Multi-Drug Resistant Organisms: MRSA Date of last positivie culture/infection: 09/20/20 MDRO Source:: Blood Past Surgical History: Heart Catheterization, Heart Catheterization With Stent Additional Past Surgical History / Comment(s): TTT, PD catheter placement/since removed, 2016 L arm fistula, fistula gram with balloon for stenosis, L eye vitrectomy, thyroid needle aspiration-negative, L leg cyst, colonoscopy with benign polypectomy. port placed in chest Right side. Past Anesthesia/Blood Transfusion Reactions: Postoperative Nausea & Vomiting (PONV) Date of Last Stent Placement:: 03-03-18 Past Psychological History: Anxiety, Depression Smoking Status: Never smoker Past Alcohol Use History: None Reported Past Drug Use History: None Reported - Past Family History Father Family Medical History: Cancer, Coronary Artery Disease (CAD), Hyperlipidemia Additional Family Medical History / Comment(s): Lung/BRAIN CANCER Mother Family Medical History: Diabetes Mellitus, Deep Vein Thrombosis (DVT), Osteoarthritis (OA) Additional Family Medical History / Comment(s): DJD Sister(s) Family Medical History: Diabetes Mellitus Additional Family Medical History / Comment(s): Patient has one sister with diabetes mellitus type 2, SLE, MS. Brother(s) Family Medical History: Diabetes Mellitus Additional Family Medical History / Comment(s): Patient has 4 kids no major medical problems. Daughter(s) Family Medical History: No Reported History Additional Family Medical History / Comment(s): Patient has 2 daughters no major medical problems. Son(s) Family Medical History: No Reported History Additional Family Medical History / Comment(s): Patient has 2 sons no major medical problems. Medications and Allergies Home Medications Medication Instructions Recorded Confirmed Type Furosemide [Lasix] 80 mg PO BID@0600,1400 04/13/19 11/30/20 History Ferrous Sulfate [Iron (65 MG 325 mg PO DAILY@1700 08/12/20 11/30/20 History Elemental)] INSULIN ASPART (NovoLOG) [NovoLOG See Protocol SQ 08/12/20 11/30/20 History (formulary)] ACHS@07,11,1630,2130 Insulin Detemir (Levemir) [Levemir] 5 unit SQ HS@209908/12/20 11/30/20 History bisacodyL [Dulcolax] 10 mg RECTAL DAILY PRN 08/12/20 11/30/20 History Amiodarone [Cordarone] 200 mg PO DAILY@0800 09/19/20 11/30/20 History Apixaban [Eliquis] 2.5 mg PO BID@0800,209909/19/20 11/30/20 History Atorvastatin [Lipitor] 40 mg PO HS@209909/19/20 11/30/20 History Liquacel 30 ml PO BID@0800,209909/19/20 11/30/20 History Metoprolol Tartrate [Lopressor] 25 mg PO BID@0800,2100 09/19/20 11/30/20 History hydrALAZINE HCL [Apresoline] 75 mg PO TID@0600,1400,2100 09/19/20 11/30/20 Hi story metOLazone [Zaroxolyn] 5 mg PO DAILY@0800 09/19/20 11/30/20 History Acetaminophen [Tylenol 8 Hour] 650 mg PO Q4H PRN 10/29/20 11/30/20 History Baclofen [Lioresal] 5 mg PO Q8H PRN 10/29/20 11/30/20 History Cholestyramine (with Sugar) 4 gm PO BID@0800,1700 10/29/20 11/30/20 History [Cholestyramine Packet] Docusate [Colace] 100 mg PO BID@0800,1700 10/29/20 11/30/20 History Lidocaine 4% Cream [Lmx 4] 1 applic TOPICAL Q4H PRN 10/30/20 11/30/20 Rx Aspirin 81 mg PO DAILY@17011/11/20 11/30/20 History Butalb/Acetaminophen/Caffeine 1 cap PO Q6H PRN 11/11/20 11/30/20 History [Fioricet 50-300-40 mg Capsule] Ipratropium-Albuterol Nebulize 3 ml INHALATION RT-Q6H PRN 11/11/20 11/30/20 History [Duoneb 0.5 mg-3 mg/3 ml Soln] Magnesium Hydroxide [Milk of 7,200 mg PO Q48H PRN 11/11/20 11/30/20 History Magnesia Concentrate] Menthol-Zinc Oxide Oint 1 applic TOPICAL BID 11/11/20 11/30/20 History [Calmoseptine Oint] Oxymetazoline 0.05% Nasl [place] 1 spray EA NOSTRIL Q12H PRN 11/11/20 11/30/20 History [Afrin 0.05% Nasal [place]] Polyethylene Glycol 3350 [Miralax] 17 gm PO DAILY@0800 11/11/20 11/30/20 History hydrOXYzine HCL 25 mg PO Q8H PRN 11/11/20 11/30/20 History ALPRAZolam [Xanax] 0.25 mg PO BID PRN #6 tab 11/15/20 11/30/20 Rx Gabapentin 300 mg PO HS@2100 #3 cap 11/15/20 11/30/20 Rx HYDROcodone/APAP 5-325MG [[place] 1 tab PO Q4H PRN #18 tab 11/15/20 11/30/20 Rx 5-325] Cyanocobalamin [Vitamin B-12] 500 mcg PO DAILY@0800 11/30/20 11/30/20 History Melatonin 6 mg PO HS@2100 11/30/20 11/30/20 History Na Phos,M-B/Na Phos,Di-Ba [Fleet 133 ml RECTAL DAILY PRN 11/30/20 11/30/20 History Adult] Promethazine Hcl 25mg Solution 25 mg IM Q6H PRN 11/30/20 11/30/20 History Allergies Allergy/AdvReac Type Severity Reaction Status Date / Time codeine Allergy Unknown Verified 11/30/20 19:00 Penicillins Allergy Anaphylaxis Verified 11/30/20 19:00 sulfadiazine Allergy Unknown Verified 11/30/20 19:00 bumetanide [From Bumex] AdvReac Hallucinati Verified 11/30/20 19:00 ons morphine AdvReac Confusion Verified 11/30/20 19:00 rivaroxaban [From Xarelto] AdvReac Bloody Nose Verified 11/30/20 19:00 spironolactone AdvReac Hallucinati Verified 11/30/20 19:00 ons All antibiotics except Keflex Allergy Unknown Uncoded 11/30/20 19:00 Childhood Physical Exam Vitals: Vital Signs Temp Pulse Resp BP Pulse Ox 12/01/20 03:00 49 L 18 137/65 99 12/01/20 00:00 59 L 18 159/79 100 11/30/20 20:50 52 L 14 164/84 100 11/30/20 18:36 20 11/30/20 18:09 97.6 F 55 L 18 193/59 100 Intake and Output 11/30/20 12/01/20 12/01/20 22:59 06:59 14:59 Other: Weight 106.594 kg Results - Lab Results Most recent lab results ABG pH 7.34 (7.35-7.45) L 11/30/20 20:50 ABG pCO2 54 mmHg (35-45) H 11/30/20 20:50 ABG pO2 106 mmHg (83-108) 11/30/20 20:50 ABG HCO3 29 mmol/L (21-25) H 11/30/20 20:50 ABG O2 Saturation 98.6 % (94-97) H 11/30/20 20:50 Calcium 8.6 mg/dL (8.4-10.2) 12/01/20 05:26 Magnesium 2.6 mg/dL (1.6-2.3) H 11/30/20 18:59 12/01/20 10:06 12/01/20 05:26 Assessment and Plan Plan: Assessment: 1. End-stage renal disease maintained on hemodialysis on Wednesday schedule. Missed yesterday's treatment. 2. Volume overload. 3. Hypertension with chronic kidney disease. Stable. 4. History of coronary artery disease status post cardiac stenting. 5. History of A. fib. Maintained on amiodarone, metoprolol as well as anticoagulation. 6. Chronic kidney disease mineral bone disease. Plan: Hemodialysis today. Check phosphorus level. Thank you for consultation. I will continue to follow the patient with you during his hospital stay.
--- NOTE | 2020-12-01 11:29 | P.HPIM ---
History of Present Illness H&P Date: 12/01/20 This is a 60-year-old male patient of Dr. Mckeon currently residing at [facility] under the care of Dr. 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 Patient was hospitalized in April 2020 at which time he was treated for sepsis and MRSA bacteremia of unclear etiology with metabolic encephalopathy vasovagal episode requiring brief CPR and patient was transferred to [facility]. Patient was treated for MRSA osteomyelitis of the lumbar spine. Patient had recent hospitalization September 19 and was transferred on September 30 to be [facility] due to sepsis with persistent MRSA bacteremia secondary to mitral valve vegetation, paraspinal abscess of the C1-C2. Patient was sent from [facility] to the emergency department to be evaluated for due to fluid overload. Patient was scheduled for dialysis yesterday however he refused dialysis because he did not feel well. Patient is complaining of a headache. Patient also feels increased shortness of breath and fluid overload. WBC 4.2, hemoglobin 10.3, platelets 148, sodium 138, potassium 4.7, carbon dioxide 27, BUN 62, cramp 5.89 magnesium 2.6, BNP 32940. REVIEW OF SYSTEMS Constitutional: no fever, no chills, no night sweats. Significant weight gain and fluid retention. Reported weakness, reported fatigue Reported lethargy. Reported daytime sleepiness. EENT: Reports headache. He has lack of vision in one of his eyes.. No loss of Hearing, no ringing in the ears, no dizziness. No nasal drainage or congestion. No epistaxis. No sore throat. Lungs: Significant shortness of breath mild PND or wheezes. Cardiovascular: Positive fluid retention, PND, orthopnea, lightheadedness and dizziness with no syncope no significant chest pain but significant shortness of breath and dyspnea. Abdominal: Slight abdominal pain with distention and mild nausea no vomiting positive tarry stool and significant change in bowel habit. Genitourinary: Doesn't make much urine because of end-stage renal disease no burning or discomfort. Musculoskeletal: Positive myalgia muscle and generalized fatigue. Integumentary: Significant edema and water retention lower extremity with slight discoloration from the knee down. Neurologic: No aphasia. No facial droop. Noted change in mentation. No head injury. No headache. No paralysis. No paresthesia. Psychiatric: Mild depression confusion with no anxiety. Endocrine: Noted abnormal blood sugars. No weight change. SOCIAL HISTORY Patient was a smoker for 23 years and quit in 1995. No alcohol use, illicit drug use. He lives at home with his and has been in rehab at [facility]. FAMILY HISTORY Father at age 72 from brain cancer also had history of coronary artery disease. Mother is 83-year-old with history of diabetes type 2 and osteoarthritis. Patient has one sister with diabetes, SLE and MS. Patient's 1 brother with diabetes and one with no major medical problems. Patient has 2 rosario ghters with no major medical problems and 2 sons with no major medical problems.. PHYSICAL EXAMINATION Gen: This is a 60-year-old male patient resting on ER stretch. He appears to be in no acute distress but quite bit confused. HEENT: Head is atraumatic, normocephalic. Pupils equal, round. Sclerae is anicteric. NECK: Supple. No JVD. No lymphadenopathy. No thyromegaly. LUNGS: Decreased expansion bilaterally with fine rhonchi positive mild crackles basis has not spread wheezes. HEART: Regular rate and rhythm. 2/6 systolic murmur with mild tachycardia.. ABDOMEN: Soft positive bowel sounds slight distention with no rebound or rigidity. EXTREMITIES: 1+ pedal edema with slight arthritis slight discoloration from the knee down. NEUROLOGICAL: Patient is sleeping, awakes to verbal stimuli. Cranial nerves 2 through 12 are grossly intact. ASSESSMENT AND PLAN 1. Shortness of breath secondary to fluid overload from missed dialysis treatment will consult with nephrology for the urgent need for hemodialysis. 2. worsening uremia: Secondary to end-stage renal disease with missing dialysis more often. 3. 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 Patient was transferred to [facility] and return to [facility] to complete 4 week course of IV vancomycin with dialysis. Antibiotic course sta rted on October 19. 4. Metabolic encephalopathy secondary to uremia, fluid overload, will try to t reat underlying disease 5. Recent treatment for MRSA bacteremia and lumbar spine osteomyelitis, c ompleted course of antibiotics. 6. End-stage renal disease on hemodialysis. Consult with nephrology appreciated. Continue PhosLo 667 mg 3 times daily, Aranesp 40 g subcu every 7 days, hemodialysis. Patient had missed dialysis recently because of hypertension and a change mental status. 7. Degenerative disc disease and spinal stenosis. Continue gabapentin 300 mg at bedtime. Continue baclofen 5 mg every 8 hours as needed. 8. History of coronary artery disease with previous PTCA to LAD and circumflex. Continue aspirin 81 mg daily, atorvastatin 40 mg at bedtime, Lopressor 25 mg twice daily. 9. Paroxysmal atrial fibrillation. Continue eliquis 2.5 mg twice daily, Lopressor, amiodarone 200 mg daily pulse rates under control at this point. 10. Ischemic cardiomyopathy. Continue Lopressor, Lasix 80 mg twice daily, metolazone 5 mg daily. Still removing more fluid with hemodialysis. 11. Diabetes mellitus type 2, insulin requiring. Continue Levemir 5 units at bedtime, add NovoLog scale before meals and at bedtime, 12. Hypertension. Continue hydralazine 75 mg 3 times daily. 13. Anemia of chronic disease. Continue ferrous sulfate 325 mg twice daily. Along with Aranesp 40 g subcu every 7 days. 14. GI prophylaxis. Continue Protonix. 15. DVT prophylaxis. Was on Eliquis which will be held for now. 16. Covid 19 testing: Negative. Patient will be admitted to the hospital for a minimum of 2 night stay. Prognosis: Very guarded. Discharge plan: Return to [facility] Impression and plan of care have been directed as dictated by the signing physician. Karina Aponte nurse practitioner acting as scribe for signing physician. Past Medical History Past Medical History: Atrial Fibrillation, Coronary Artery Disease (CAD), Heart Failure, Diabetes Mellitus, Dialysis, Eye Disorder, GERD/Reflux, Hearing Disorder / Deafness, Hyperlipidemia, Hypertension, Myocardial Infarction (ND), Renal Disease, Syncope Additional Past Medical History / Comment(s): IDDM type II, neuropathy bilateral hands/feet, ESRD with hemodialysis on M/W/F, chronic anemia, LVH, Afib with RVR, MIs, chronic CHF, R eye blindness, L eye legally blind, RLS, pt unsure if he has gout, vertigo at times, balance issues at times, stomach ulcer at age 17yrs, sinus problems, very [place] R ear. Last Myocardial Infarction Date:: 08/09/18 History of Any Multi-Drug Resistant Organisms: MRSA Date of last positivie culture/infection: 09/20/20 MDRO Source:: Blood Past Surgical History: Heart Catheterization, Heart Catheterization With Stent Additional Past Surgical History / Comment(s): TTT, PD catheter placement/since removed, 2016 L arm fistula, fistula gram with balloon for stenosis, L eye vitrectomy, thyroid needle aspiration-negative, L leg cyst, colonoscopy with benign polypectomy. port placed in chest Right side. Past Anesthesia/Blood Transfusion Reactions: Postoperative Nausea & Vomiting (PONV) Date of Last Stent Placement:: 03-03-18 Past Psychological History: Anxiety, Depression Smoking Status: Never smoker Past Alcohol Use History: None Reported Past Drug Use History: None Reported - Past Family History Father Family Medical History: Cancer, Coronary Artery Disease (CAD), Hyperlipidemia Additional Family Medical History / Comment(s): Lung/BRAIN CANCER Mother Family Medical History: Diabetes Mellitus, Deep Vein Thrombosis (DVT), Osteoarthritis (OA) Additional Family Medical History / Comment(s): DJD Sister(s) Family Medical History: Diabetes Mellitus Additional Family Medical History / Comment(s): Patient has one sister with diabetes mellitus type 2, SLE, MS. Brother(s) Family Medical History: Diabetes Mellitus Additional Family Medical History / Comment(s): Patient has 4 kids no major medical problems. Daughter(s) Family Medical History: No Reported History Additional Family Medical History / Comment(s): Patient has 2 daughters no major medical problems. Son(s) Family Medical History: No Reported History Additional Family Medical History / Comment(s): Patient has 2 sons no major medical problems. Medications and Allergies Home Medications Medication Instructions Recorded Confirmed Type Furosemide [Lasix] 80 mg PO BID@0600,1400 04/13/19 11/30/20 History Ferrous Sulfate [Iron (65 MG 325 mg PO DAILY@1700 08/12/20 11/30/20 History Elemental)] INSULIN ASPART (NovoLOG) [NovoLOG See Protocol SQ 08/12/20 11/30/20 History (formulary)] ACHS@07,11,1630,2130 Insulin Detemir (Levemir) [Levemir] 5 unit SQ HS@209908/12/20 11/30/20 History bisacodyL [Dulcolax] 10 mg RECTAL DAILY PRN 08/12/20 11/30/20 History Amiodarone [Cordarone] 200 mg PO DAILY@79909/19/20 11/30/20 History Apixaban [Eliquis] 2.5 mg PO BID@08,209909/19/20 11/30/20 History Atorvastatin [Lipitor] 40 mg PO HS@209909/19/20 11/30/20 History Liquacel 30 ml PO BID@0800,209909/19/20 11/30/20 History Metoprolol Tartrate [Lopressor] 25 mg PO BID@0800,209909/19/20 11/30/20 History hydrALAZINE HCL [Apresoline] 75 mg PO TID@0600,1400,209909/19/20 11/30/20 History metOLazone [Zaroxolyn] 5 mg PO DAILY@79909/19/20 11/30/20 History Acetaminophen [Tylenol 8 Hour] 650 mg PO Q4H PRN 10/29/20 11/30/20 History Baclofen [Lioresal] 5 mg PO Q8H PRN 10/29/20 11/30/20 History Cholestyramine (with Sugar) 4 gm PO BID@0800,169910/29/20 11/30/20 History [Cholestyramine Packet] Docusate [Colace] 100 mg PO BID@0800,169910/29/20 11/30/20 History Lidocaine 4% Cream [Lmx 4] 1 applic TOPICAL Q4H PRN 10/30/20 11/30/20 Rx Aspirin 81 mg PO DAILY@169911/11/20 11/30/20 History Butalb/Acetaminophen/Caffeine 1 cap PO Q6H PRN 11/11/20 11/30/20 History [Fioricet 50-300-40 mg Capsule] Ipratropium-Albuterol Nebulize 3 ml INHALATION RT-Q6H PRN 11/11/20 11/30/20 History [Duoneb 0.5 mg-3 mg/3 ml Soln] Magnesium Hydroxide [Milk of 7,200 mg PO Q48H PRN 11/11/20 11/30/20 History Magnesia Concentrate] Menthol-Zinc Oxide Oint 1 applic TOPICAL BID 11/11/20 11/30/20 History [Calmoseptine Oint] Oxymetazoline 0.05% Nasl [place] 1 spray EA NOSTRIL Q12H PRN 11/11/20 11/30/20 History [Afrin 0.05% Nasal [place]] Polyethylene Glycol 3350 [Miralax] 17 gm PO DAILY@0800 11/11/20 11/30/20 History hydrOXYzine HCL 25 mg PO Q8H PRN 11/11/20 11/30/20 History ALPRAZolam [Xanax] 0.25 mg PO BID PRN #6 tab 11/15/20 11/30/20 Rx Gabapentin 300 mg PO HS@2100 #3 cap 11/15/20 11/30/20 Rx HYDROcodone/APAP 5-325MG [[place] 1 tab PO Q4H PRN #18 tab 11/15/20 11/30/20 Rx 5-325] Cyanocobalamin [Vitamin B-12] 500 mcg PO DAILY@0800 11/30/20 11/30/20 History Melatonin 6 mg PO HS@2100 11/30/20 11/30/20 History Na Phos,M-B/Na Phos,Di-Ba [Fleet 133 ml RECTAL DAILY PRN 11/30/20 11/30/20 History Adult] Promethazine Hcl 25mg Solution 25 mg IM Q6H PRN 11/30/20 11/30/20 History Allergies Allergy/AdvReac Type Severity Reaction Status Date / Time codeine Allergy Unknown Verified 11/30/20 19:00 Penicillins Allergy Anaphylaxis Verified 11/30/20 19:00 sulfadiazine Allergy Unknown Verified 11/30/20 19:00 bumetanide [From Bumex] AdvReac Hallucinati Verified 11/30/20 19:00 ons morphine AdvReac Confusion Verified 11/30/20 19:00 rivaroxaban [From Xarelto] AdvReac Bloody Nose Verified 11/30/20 19:00 spironolactone AdvReac Hallucinati Verified 11/30/20 19:00 ons All antibiotics except Keflex Allergy Unknown Uncoded 11/30/20 19:00 Childhood Physical Exam Vitals: Vital Signs Temp Pulse Resp BP Pulse Ox 12/01/20 03:00 49 L 18 137/65 99 12/01/20 00:00 59 L 18 159/79 100 11/30/20 20:50 52 L 14 164/84 100 11/30/20 18:36 20 11/30/20 18:09 97.6 F 55 L 18 193/59 100 Intake and Output 11/30/20 12/01/20 12/01/20 22:59 06:59 14:59 Other: Weight 106.594 kg Results CBC & Chem 7: 12/01/20 10:06 12/01/20 05:26 Labs: Abnormal Lab Results - Last 24 Hours (Table) 11/30/20 11/30/20 11/30/20 Range/Units 18:30 18:59 18:59 RBC 3.20 L (4.30-5.90) m/uL Hgb 10.4 L (13.0-17.5) gm/dL Hct 32.6 L (39.0-53.0) % MCV 102.0 H (80.0-100.0) fL RDW 18.1 H (11.5-15.5) % Plt Count (150-450) k/uL Lymphocytes # 0.6 L (1.0-4.8) k/uL ABG pH (7.35-7.45) ABG pCO2 (35-45) mmHg ABG HCO3 (21-25) mmol/L ABG Total CO2 (19-24) mmol/L ABG O2 Saturation (94-97) % Carbon Dioxide (22-30) mmol/L BUN 60 H (9-20) mg/dL Creatinine 5.57 H (0.66-1.25) mg/dL Glucose 155 H (74-99) mg/dL POC Glucose (mg/dL) 161 H (75-99) mg/dL Magnesium 2.6 H (1.6-2.3) mg/dL Alkaline Phosphatase 203 H (38-126) U/L 11/30/20 12/01/20 12/01/20 Range/Units 20:50 05:26 10:06 RBC 3.17 L (4.30-5.90) m/uL Hgb 10.3 L (13.0-17.5) gm/dL Hct 32.2 L (39.0-53.0) % MCV 101.7 H (80.0-100.0) fL RDW 18.1 H (11.5-15.5) % Plt Count 148 L (150-450) k/uL Lymphocytes # 0.3 L (1.0-4.8) k/uL ABG pH 7.34 L (7.35-7.45) ABG pCO2 54 H (35-45) mmHg ABG HCO3 29 H (21-25) mmol/L ABG Total CO2 31 H (19-24) mmol/L ABG O2 Saturation 98.6 H (94-97) % Carbon Dioxide 21 L (22-30) mmol/L BUN 62 H (9-20) mg/dL Creatinine 5.89 H (0.66-1.25) mg/dL Glucose 136 H (74-99) mg/dL POC Glucose (mg/dL) (75-99) mg/dL Magnesium (1.6-2.3) mg/dL Alkaline Phosphatase (38-126) U/L
[2020-12-01] MEDS: HYDROcodone/APAP 5-325MG 1 EACH TAB PO PRN ×2 (11:42→15:31)
[2020-12-01] MEDS: AMIODARONE 200 MG TAB PO SCH (11:43)
[2020-12-01] MEDS: FUROSEMIDE 80 MG TAB PO SCH ×2 (11:43→15:32)
[2020-12-01] MEDS: CYANOCOBALAMIN 500 MCG TAB PO SCH (11:43)
[2020-12-01] MEDS: metOLazone 5 MG TAB PO SCH (11:47)
[2020-12-01] MEDS: INSULIN ASPART (NovoLOG) 100 UNIT/ML VIAL SQ SCH ×2 (13:43→17:52)
[2020-12-01 17:52] LABS: Glucose,Whole Blood 135 mg/dL (75-99)
[2020-12-01] MEDS: ASPIRIN 81 MG PO SCH (17:54)
[2020-12-01] MEDS: FERROUS SULFATE 325 MG TAB PO SCH (17:54)
[2020-12-01] MEDS: ALPRAZolam 0.25 MG TAB PO PRN (21:32)
[2020-12-02] MEDS: INSULIN DETEMIR (LEVEMIR) 100 UNIT/ML SYR SQ SCH ×2 (00:01→20:35)
[2020-12-02 07:38] LABS: Glucose,Whole Blood 135 mg/dL (75-99)
[2020-12-02] MEDS: DOCUSATE 100 MG CAP PO SCH ×2 (07:58→20:30)
[2020-12-02] MEDS: polyethylene glycoL 3350 17 GM POWD.PACK PO SCH (07:58)
[2020-12-02] MEDS: IPRATROPIUM-ALBUTEROL 3 ML NEB INHALATION PRN ×2 (07:59→11:02)
[2020-12-02] MEDS: APIXABAN 2.5 MG TABLET PO SCH ×2 (08:03→20:35)
[2020-12-02] MEDS: INSULIN ASPART (NovoLOG) 100 UNIT/ML VIAL SQ SCH ×3 (08:03→17:42)
[2020-12-02] MEDS: FUROSEMIDE 80 MG TAB PO SCH ×2 (08:03→16:10)
[2020-12-02] MEDS: hydrOXYzine HCL 25 MG TAB PO PRN ×2 (08:03→16:10)
[2020-12-02] MEDS: AMIODARONE 200 MG TAB PO SCH (08:03)
[2020-12-02] MEDS: CYANOCOBALAMIN 500 MCG TAB PO SCH (08:04)
[2020-12-02] MEDS: metOLazone 5 MG TAB PO SCH (08:04)
[2020-12-02] MEDS: hydrALAZINE HCL 25 MG TAB PO SCH ×4 (08:04→20:49)
[2020-12-02] MEDS: METOPROLOL TARTRATE 25 MG TAB PO SCH ×2 (08:04→20:35)
[2020-12-02] MEDS: BUTALB/APAP/CAFF 50-325-40MG TAB PO PRN ×2 (08:05→16:34)
--- NOTE | 2020-12-02 09:36 | P.PN ---
Subjective Patient is seen in follow-up for end-stage renal disease. He is maintained on hemodialysis on Wednesday schedule. Blood pressure stable. Currently on room air. No chest pain. Vital signs are stable. General: The patient appeared well nourished and normally developed. HEENT: Head exam is unremarkable. LUNGS: Breath sounds decreased. HEART: Rate and Rhythm are regular. ABDOMEN: Soft, no distention. EXTREMITITES: 1+ edema. Objective - Vital Signs Vital signs: Vital Signs Temp 97.9 F 12/02/20 00:05 Pulse 93 12/02/20 08:08 Resp 18 12/02/20 07:30 BP 143/83 12/02/20 07:30 Pulse Ox 97 12/02/20 07:30 Intake & Output 12/01/20 12/02/20 12/02/20 18:59 06:59 18:59 Output Total 3000 0 Balance -3000 0 Weight 95 kg Output: Urine 0 Hemodialysis 3000 Other: # Bowel Movements 0 - Labs CBC & Chem 7: 12/01/20 10:06 12/01/20 05:26 Labs: Abnormal Lab Results - Last 24 Hours (Table) 12/01/20 12/01/20 12/02/20 Range/Units 10:06 17:50 07:33 RBC 3.17 L (4.30-5.90) m/uL Hgb 10.3 L (13.0-17.5) gm/dL Hct 32.2 L (39.0-53.0) % MCV 101.7 H (80.0-100.0) fL RDW 18.1 H (11.5-15.5) % Plt Count 148 L (150-450) k/uL Lymphocytes # 0.3 L (1.0-4.8) k/uL POC Glucose (mg/dL) 135 H 135 H (75-99) mg/dL Assessment and Plan Plan: Assessment: 1. End-stage renal disease maintained on hemodialysis on Wednesday schedule. 2. Volume overload. 3. Hypertension with chronic kidney disease. Stable. 4. History of coronary artery disease status post cardiac stenting. 5. History of A. fib. Maintained on amiodarone, metoprolol as well as anticoagulation. 6. Chronic kidney disease mineral bone disease. Plan: Hemodialysis tomorrow. Patient refusing to get an extra treatment today. Check phosphorus level.
[2020-12-02 12:27] LABS: Glucose,Whole Blood 229 mg/dL (75-99)
[2020-12-02] MEDS: HYDROcodone/APAP 5-325MG 1 EACH TAB PO PRN ×2 (13:05→19:23)
--- NOTE | 2020-12-02 16:09 | P.PN ---
Subjective Progress Note Date: 12/02/20 This is a 60-year-old male patient of Dr. Mckeon currently residing at [facility] under the care of Dr. Christian with a previous medical history significant for hypertension and hypertensive cardiovascular disease, hyperlipidemia, diabetes mellitus type 2, paroxysmal atrial fibrillation, coronary artery dis ease status post left heart catheterization and PCI of the obtuse marginal branch #1 off the LCx, followed by a recent PCI and stenting of the LAD back in September 2018, end-stage renal disease on hemodialysis Wednesday and Wednesday via left arm fistula, blindness of the right eye as well as left eye legally blind. Patient was hospitalized in April 2020 at which time he was treated for sepsis and MRSA bacteremia of unclear etiology with metabolic encephalopathy vasovagal episode requiring brief CPR and patient was transferred to [facility]. Patient was treated for MRSA osteomyelitis of the lumbar spine. Patient had recent hospitalization September 19 and was transferred on September 30 to be [facility] due to sepsis with persistent MRSA bacteremia secondary to mitral valve vegetation, paraspinal abscess of the C1-C2. Patient was sent from [facility] to the emergency department to be evaluated for due to fluid overload. Patient was scheduled for dialysis yesterday however he refused dialysis because he did not feel well. Patient is complaining of a headache. Patient also feels increased shortness of breath and fluid overload. WBC 4.2, hemoglobin 10.3, platelets 148, sodium 138, potassium 4.7, carbon dioxide 27, BUN 62, cramp 5.89 magnesium 2.6, BNP 17220. 12/02: Patient had 3 L of fluid off yesterday with dialysis. Dr. Edmondson talked him about doing dialysis again today but patient apparently refused but now of the time of our evaluation, patient is agreeable. He has been afebrile, heart rate 50s, blood pressure 143/73, pulse ox 100% on 2 L nasal cannula. Anticipate discharge to return to [facility] tomorrow after dialysis. REVIEW OF SYSTEMS Constitutional: no fever, no chills, no night sweats. Significant weight gain and fluid retention. Reported weakness, reported fatigue Reported lethargy. Reported daytime sleepiness. EENT: Reports headache. He has lack of vision in one of his eyes.. No loss of Hearing, no ringing in the ears, no dizziness. No nasal drainage or congestion. No epistaxis. No sore throat. Lungs: Significant shortness of breath mild PND or wheezes. Cardiovascular: Positive fluid retention, PND, orthopnea, lightheadedness and dizziness with no syncope no significant chest pain but significant shortness of breath and dyspnea. Abdominal: Slight abdominal pain with distention and mild nausea no vomiting positive tarry stool and significant change in bowel habit. Genitourinary: Doesn't make much urine because of end-stage renal disease no burning or discomfort. Musculoskeletal: Positive myalgia muscle and generalized fatigue. Integumentary: Significant edema and water retention lower extremity with slight discoloration from the knee down. Neurologic: No aphasia. No facial droop. Noted change in mentation. No head injury. No headache. No paralysis. No paresthesia. Psychiatric: Mild depression confusion with no anxiety. Endocrine: Noted abnormal blood sugars. No weight change. PHYSICAL EXAMINATION Gen: This is a 60-year-old male patient resting on ER stretch. He appears to be in no acute distress but quite bit confused. HEENT: Head is atraumatic, normocephalic. Pupils equal, round. Sclerae is anicteric. NECK: Supple. No JVD. No lymphadenopathy. No thyromegaly. LUNGS: Decreased expansion bilaterally with fine rhonchi positive mild crackles basis has not spread wheezes. HEART: Regular rate and rhythm. 2/6 systolic murmur with mild tachycardia.. ABDOMEN: Soft positive bowel sounds slight distention with no rebound or rigidity. EXTREMITIES: 1+ pedal edema with slight arthritis slight discoloration from the knee down. NEUROLOGICAL: Patient is sleeping, awakes to verbal stimuli. Cranial nerves 2 through 12 are grossly intact. ASSESSMENT AND PLAN 1. Shortness of breath secondary to fluid overload from missed dialysis treatment will consult with nephrology for the urgent need for hemodialysis. 2. worsening uremia: Secondary to end-stage renal disease with missing dialysis more often. 3. 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 Patient was transferred to [facility] and return to [facility] to complete 4 week course of IV vancomycin with dialysis. Antibiotic course started on October 19. 4. Metabolic encephalopathy secondary to uremia, fluid overload, will try to treat underlying disease 5. Recent treatment for MRSA bacteremia and lumbar spine osteomyelitis, completed course of antibiotics. 6. End-stage renal disease on hemodialysis. Consult with nephrology appreciated. Continue PhosLo 667 mg 3 times daily, Aranesp 40 g subcu every 7 days, hemodialysis. Patient had missed dialysis recently because of hypertension and a change mental status. 7. Degenerative disc disease and spinal stenosis. Continue gabapentin 300 mg at bedtime. Continue baclofen 5 mg every 8 hours as needed. 8. History of coronary artery disease with previous PTCA to LAD and circumflex. Continue aspirin 81 mg daily, atorvastatin 40 mg at bedtime, Lopressor 25 mg twice daily. 9. Paroxysmal atrial fibrillation. Continue eliquis 2.5 mg twice daily, Lopressor, amiodarone 200 mg daily pulse rates under control at this point. 10. Ischemic cardiomyopathy. Continue Lopressor, Lasix 80 mg twice daily, metolazone 5 mg daily. Still removing more fluid with hemodialysis. 11. Diabetes mellitus type 2, insulin requiring. Continue Levemir 5 units at bedtime, add NovoLog scale before meals and at bedtime, 12. Hypertension. Continue hydralazine 75 mg 3 times daily. 13. Anemia of chronic disease. Continue ferrous sulfate 325 mg twice daily. Along with Aranesp 40 g subcu every 7 days. 14. GI prophylaxis. Continue Protonix. 15. DVT prophylaxis. Was on Eliquis which will be held for now. 16. Covid 19 testing: Negative. Patient will be admitted to the hospital for a minimum of 2 night stay. Prognosis: Very guarded. Discharge plan: Return to [facility] on Wednesday Impression and plan of care have been directed as dictated by the signing physician. Katelyn Wesley nurse practitioner acting as scribe for signing physician. Objective - Vital Signs Vital signs: Vital Signs Temp 97.9 F 12/02/20 00:05 Pulse 93 12/02/20 08:08 Resp 18 12/02/20 07:30 BP 143/83 12/02/20 07:30 Pulse Ox 97 12/02/20 07:30 Intake & Output 12/01/20 12/02/20 12/02/20 18:59 06:59 18:59 Output Total 3000 0 Balance -3000 0 Weight 95 kg Output: Urine 0 Hemodialysis 3000 Other: # Bowel Movements 0 - Labs CBC & Chem 7: 12/01/20 10:06 12/01/20 05:26 Labs: Abnormal Lab Results - Last 24 Hours (Table) 12/01/20 12/01/20 12/02/20 Range/Units 10:06 17:50 07:33 RBC 3.17 L (4.30-5.90) m/uL Hgb 10.3 L (13.0-17.5) gm/dL Hct 32.2 L (39.0-53.0) % MCV 101.7 H (80.0-100.0) fL RDW 18.1 H (11.5-15.5) % Plt Count 148 L (150-450) k/uL Lymphocytes # 0.3 L (1.0-4.8) k/uL POC Glucose (mg/dL) 135 H 135 H (75-99) mg/dL
[2020-12-02] MEDS: FERROUS SULFATE 325 MG TAB PO SCH (16:10)
[2020-12-02] MEDS: ASPIRIN 81 MG PO SCH (16:10)
[2020-12-02 16:23] LABS: Glucose,Whole Blood 166 mg/dL (75-99)
[2020-12-02] MEDS: ALPRAZolam 0.25 MG TAB PO PRN (19:23)
[2020-12-02 19:42] VITALS: RESP 16; TEMP 98
[2020-12-02 20:11] LABS: Glucose,Whole Blood 186 mg/dL (75-99)
[2020-12-02] MEDS: GABAPENTIN 300 MG CAP PO SCH (20:35)
[2020-12-02] MEDS: ATORVASTATIN 40 MG TAB PO SCH (20:35)
[2020-12-02] MEDS: MELATONIN 3 MG TABLET PO SCH (20:59)
[2020-12-03] MEDS: HYDROcodone/APAP 5-325MG 1 EACH TAB PO PRN (06:18)
[2020-12-03 07:21] LABS: Glucose,Whole Blood 121 mg/dL (75-99)
[2020-12-03] MEDS: INSULIN ASPART (NovoLOG) 100 UNIT/ML VIAL SQ SCH ×2 (07:54→11:56)
[2020-12-03] MEDS: hydrOXYzine HCL 25 MG TAB PO PRN ×2 (07:56→08:04)
[2020-12-03] MEDS: metOLazone 5 MG TAB PO SCH (07:57)
[2020-12-03] MEDS: polyethylene glycoL 3350 17 GM POWD.PACK PO SCH (07:58)
[2020-12-03] MEDS: FUROSEMIDE 80 MG TAB PO SCH (08:04)
[2020-12-03] MEDS: hydrALAZINE HCL 25 MG TAB PO SCH (08:04)
[2020-12-03] MEDS: DOCUSATE 100 MG CAP PO SCH (08:05)
[2020-12-03] MEDS: METOPROLOL TARTRATE 25 MG TAB PO SCH (08:05)
[2020-12-03] MEDS: AMIODARONE 200 MG TAB PO SCH (08:05)
[2020-12-03] MEDS: APIXABAN 2.5 MG TABLET PO SCH (08:05)
[2020-12-03] MEDS: CYANOCOBALAMIN 500 MCG TAB PO SCH (08:05)
--- NOTE | 2020-12-03 09:17 | P.DS ---
<Katelyn Wesley A - Last Filed: 12/03/20 10:49> Providers Expected date of discharge: 12/03/20 Hospital Course: This is a 60-year-old male patient of Dr. Mckeon currently residing at [facility] under the care of Dr. 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 Patient was hospitalized in April 2020 at which time he was treated for sepsis and MRSA bacteremia of unclear etiology with metabolic encephalopathy vasovagal episode requiring brief CPR and patient was transferred to [facility]. Patient was treated for MRSA osteomyelitis of the lumbar spine. Patient had recent hospitalization September 19 and was transferred on September 30 to be [facility] due to sepsis with persistent MRSA bacteremia secondary to mitral valve vegetation, paraspinal abscess of the C1-C2. Patient was sent from [facility] to the emergency department to be evaluated for due to fluid overload. Patient was scheduled for dialysis yesterday however he refused dialysis because he did not feel well. Patient is complaining of a headache. Patient also feels increased shortness of breath and fluid overload. WBC 4.2, hemoglobin 10.3, platelets 148, sodium 138, potassium 4.7, carbon dioxide 27, BUN 62, cramp 5.89 magnesium 2.6, BNP 31981. 12/02: Patient had 3 L of fluid off yesterday with dialysis. Dr. Edmondson talked him about doing dialysis again today but patient apparently refused but now of the time of our evaluation, patient is agreeable. He has been afebrile, heart rate 50s, blood pressure 143/73, pulse ox 100% on 2 L nasal cannula. Anticipate discharge to return to [facility] tomorrow after dialysis. 12/03: Patient has been afebrile, heart rate 59, blood pressure 169/83, pulse ox 100% on 1 L nasal cannula. Blood sugars are running between 121 and 229. Patient refused blood pressure medications last night. Patient has started been seen by Dr. Edmondson this morning with plan for hemodialysis today with removal of 4L. He did have 3 L removed yesterday. We will plan to discharge patient back to [facility] after hemodialysis is completed. Patient is discharged in stable condition. DISCHARGE DIAGNOSES 1. Shortness of breath secondary to fluid overload from missed dialysis treatment will consult with nephrology for the urgent need for hemodialysis. 2. worsening uremia: Secondary to end-stage renal disease with missing dialysis more often. 3. 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 4. Metabolic encephalopathy secondary to uremia, fluid overload. 5. Recent treatment for MRSA bacteremia and lumbar spine osteomyelitis, completed course of antibiotics. 6. End-stage renal disease on hemodialysis. 7. Degenerative disc disease and spinal stenosis. 8. History of coronary artery disease with previous PTCA to LAD and circumflex. 9. Paroxysmal atrial fibrillation. 10. Ischemic cardiomyopathy. 11. Diabetes mellitus type 2, insulin requiring. 12. Hypertension. 13. Anemia of chronic disease. 14. Covid 19 testing: Negative. Discharge plan: Return to [facility] Impression and plan of care have been directed as dictated by the signing physician. Katelyn Wesley nurse practitioner acting as scribe for signing physician. Patient Condition at Discharge: Stable Plan - Discharge Summary Discharge Rx Participant: Yes New Discharge Prescriptions: Continue Furosemide [Lasix] 80 mg PO BID@0600,1400 INSULIN ASPART (NovoLOG) [NovoLOG (formulary)] See Protocol SQ ACH S@07,11,1630,2130 Ferrous Sulfate [Iron (65 MG Elemental)] 325 mg PO DAILY@1700 Apixaban [Eliquis] 2.5 mg PO BID@0800,2100 Cholestyramine (with Sugar) [Cholestyramine Packet] 4 gm PO BID@0800,1700 Lidocaine 4% Cream [Lmx 4] 1 applic TOPICAL Q4H PRN PRN Reason: Pain Aspirin 81 mg PO DAILY@1700 hydrOXYzine HCL 25 mg PO Q8H PRN PRN Reason: Itching Ipratropium-Albuterol Nebulize [Duoneb 0.5 mg-3 mg/3 ml Soln] 3 ml INHALATION RT-Q6H PRN PRN Reason: Wheezing Magnesium Hydroxide [Milk of Magnesia Concentrate] 7,200 mg PO Q48H PRN PRN Reason: Constipation Menthol-Zinc Oxide Oint [Calmoseptine Oint] 1 applic TOPICAL BID Oxymetazoline 0.05% Nasl [place] [Afrin 0.05% Nasal [place]] 1 spray EA NOSTRIL Q12H PRN PRN Reason: stuffy nose Na Phos,M-B/Na Phos,Di-Ba [Fleet Adult] 133 ml RECTAL DAILY PRN PRN Reason: Constipation Promethazine Hcl 25mg Solution 25 mg IM Q6H PRN PRN Reason: Nausea And Vomiting bisacodyL [Dulcolax] 10 mg RECTAL DAILY PRN PRN Reason: Constipation Insulin Detemir (Levemir) [Levemir] 5 unit SQ HS@2100 Atorvastatin [Lipitor] 40 mg PO HS@2100 hydrALAZINE HCL [Apresoline] 75 mg PO TID@0600,1400,2100 Metoprolol Tartrate [Lopressor] 25 mg PO BID@0800,2100 Liquacel 30 ml PO BID@0800,2100 metOLazone [Zaroxolyn] 5 mg PO DAILY@0800 Amiodarone [Cordarone] 200 mg PO DAILY@0800 Baclofen [Lioresal] 5 mg PO Q8H PRN PRN Reason: Muscle Spasm Acetaminophen [Tylenol 8 Hour] 650 mg PO Q4H PRN PRN Reason: general discomfort Docusate [Colace] 100 mg PO BID@0800,1700 Polyethylene Glycol 3350 [Miralax] 17 gm PO DAILY@0800 Melatonin 6 mg PO HS@2100 Cyanocobalamin [Vitamin B-12] 500 mcg PO DAILY@0800 Butalb/Acetaminophen/Caffeine [Fioricet 50-300-40 mg Capsule] 1 cap PO Q6H PRN #12 cap PRN Reason: Headache Gabapentin 300 mg PO HS@2100 #3 cap HYDROcodone/APAP 5-325MG [[place] 5-325] 1 tab PO Q4H PRN #18 tab PRN Reason: Pain ALPRAZolam [Xanax] 0.25 mg PO BID PRN #6 tab PRN Reason: Anxiety Discharge Medication List Furosemide [Lasix] 80 mg PO BID@0600,1400 04/13/19 [History] Ferrous Sulfate [Iron (65 MG Elemental)] 325 mg PO DAILY@1700 08/12/20 [History] INSULIN ASPART (NovoLOG) [NovoLOG (formulary)] See Protocol SQ ACHS@07,11,1630,2130 08/12/20 [History] Insulin Detemir (Levemir) [Levemir] 5 unit SQ HS@209908/12/20 [History] bisacodyL [Dulcolax] 10 mg RECTAL DAILY PRN 08/12/20 [History] Amiodarone [Cordarone] 200 mg PO DAILY@0809/19/20 [History] Apixaban [Eliquis] 2.5 mg PO BID@0800,209909/19/20 [History] Atorvastatin [Lipitor] 40 mg PO HS@209909/19/20 [History] Liquacel 30 ml PO BID@0800,209909/19/20 [History] Metoprolol Tartrate [Lopressor] 25 mg PO BID@0800,209909/19/20 [History] hydrALAZINE HCL [Apresoline] 75 mg PO TID@0600,1400,209909/19/20 [History] metOLazone [Zaroxolyn] 5 mg PO DAILY@79909/19/20 [History] Acetaminophen [Tylenol 8 Hour] 650 mg PO Q4H PRN 10/29/20 [History] Baclofen [Lioresal] 5 mg PO Q8H PRN 10/29/20 [History] Cholestyramine (with Sugar) [Cholestyramine Packet] 4 gm PO BID@0800,17010/29/20 [History] Docusate [Colace] 100 mg PO BID@0800,169910/29/20 [History] Lidocaine 4% Cream [Lmx 4] 1 applic TOPICAL Q4H PRN 10/30/20 [Rx] Aspirin 81 mg PO DAILY@169911/11/20 [History] Ipratropium-Albuterol Nebulize [Duoneb 0.5 mg-3 mg/3 ml Soln] 3 ml INHALATION RT -Q6H PRN 11/11/20 [History] Magnesium Hydroxide [Milk of Magnesia Concentrate] 7,200 mg PO Q48H PRN 11/11/20 [History] Menthol-Zinc Oxide Oint [Calmoseptine Oint] 1 applic TOPICAL BID 11/11/20 [History] Oxymetazoline 0.05% Nasl [place] [Afrin 0.05% Nasal [place]] 1 spray EA NOSTRIL Q12H PRN 11/11/20 [History] Polyethylene Glycol 3350 [Miralax] 17 gm PO DAILY@0800 11/11/20 [History] hydrOXYzine HCL 25 mg PO Q8H PRN 11/11/20 [History] Cyanocobalamin [Vitamin B-12] 500 mcg PO DAILY@0800 11/30/20 [History] Melatonin 6 mg PO HS@2100 11/30/20 [History] Na Phos,M-B/Na Phos,Di-Ba [Fleet Adult] 133 ml RECTAL DAILY PRN 11/30/20 [History] Promethazine Hcl 25mg Solution 25 mg IM Q6H PRN 11/30/20 [History] ALPRAZolam [Xanax] 0.25 mg PO BID PRN #6 tab 12/02/20 [Rx] Butalb/Acetaminophen/Caffeine [Fioricet 50-300-40 mg Capsule] 1 cap PO Q6H PRN #12 cap 12/02/20 [Rx] Gabapentin 300 mg PO HS@2100 #3 cap 12/02/20 [Rx] HYDROcodone/APAP 5-325MG [[place] 5-325] 1 tab PO Q4H PRN #18 tab 12/02/20 [Rx] Follow up Appointment(s)/Referral(s): Perry Christian MD [Primary Care Provider] - 1-2 days Discharge Disposition: TRANSFER TO SNF/ECF <Perry Christian - Last Filed: 12/06/20 06:06> Providers Date of admission: 11/30/20 21:10 Attending physician: Perry Christian Consults: 11/30/20 21:11 Consult Physician Urgent Consulting Provider: Migel Edmondson Consult Reason/Comments: Dialysis Do you want consulting provider notified?: Yes Primary care physician: Perry Christian [facility] Course: Time spent for Discharge: 35 minutes
[2020-12-03] MEDS: ALPRAZolam 0.25 MG TAB PO PRN (09:19)
--- NOTE | 2020-12-03 09:40 | P.PN ---
Subjective Patient is seen in follow-up for end-stage renal disease. He is maintained on hemodialysis on Wednesday schedule. Blood pressure on the higher side this morning as he refused his blood pressure meds last night. Currently on 1 L nasal cannula. No chest pain. Vital signs are stable. General: The patient appeared well nourished and normally developed. HEENT: Head exam is unremarkable. LUNGS: Breath sounds decreased. HEART: Rate and Rhythm are regular. ABDOMEN: Soft, no distention. EXTREMITITES: 1+ edema. Objective - Vital Signs Vital signs: Vital Signs Temp 98 F 12/02/20 19:40 Pulse 59 L 12/03/20 07:54 Resp 16 12/03/20 08:00 BP 169/83 12/03/20 07:54 Pulse Ox 100 12/03/20 07:54 Intake & Output 12/02/20 12/03/20 12/03/20 18:59 06:59 18:59 Intake Total 480 240 Output Total 3000 Balance -2520 240 Weight 97.5 kg Intake: Oral 480 240 Output: Hemodialysis 3000 Other: Voiding Method Diaper Diaper Diaper Incontinent Incontinent Incontinent # Voids 0 # Bowel Movements 1 0 - Labs CBC & Chem 7: 12/01/20 10:06 12/01/20 05:26 Labs: Abnormal Lab Results - Last 24 Hours (Table) 12/02/20 12/02/20 12/02/20 Range/Units 10:00 12:26 16:21 POC Glucose (mg/dL) 229 H 166 H (75-99) mg/dL Phosphorus 6.4 H (2.5-4.5) mg/dL 12/02/20 12/03/20 Range/Units 20:09 07:19 POC Glucose (mg/dL) 186 H 121 H (75-99) mg/dL Phosphorus (2.5-4.5) mg/dL Assessment and Plan Plan: Assessment: 1. End-stage renal disease maintained on hemodialysis on Wednesday schedule. 2. Volume overload. Improving with ultrafiltration. 3. Hypertension with chronic kidney disease. 4. History of coronary artery disease status post cardiac stenting. 5. History of A. fib. Maintained on amiodarone, metoprolol as well as a nticoagulation. 6. Chronic kidney disease mineral bone disease. Plan: Hemodialysis today. He did have an extra treatment of hemodialysis yesterday with 3 L ultrafiltration. He did take his blood pressure meds this morning. Add PhosLo with meals.
[2020-12-03] MEDS: CALCIUM ACETATE 667 MG TAB PO SCH ×2 (11:43→11:56)
[2020-12-03 11:47] LABS: Glucose,Whole Blood 146 mg/dL (75-99)
[2020-12-03] MEDS: BUTALB/APAP/CAFF 50-325-40MG TAB PO PRN (11:55)
[2020-12-03] MEDS: PROMETHAZINE INJ 25 MG/ML 1 ML VIAL IVPB PRN (12:21)
[2020-12-03 13:14] VITALS: BP 167/78; PULSE 57
== END 2020-12-03 16:09 ==
LOC: EC 17:51 → 4SSUR 21:10 → 5NMEDONC 12-01 21:33
PROVIDERS: ADMIT Internal Medicine Geriatric Medicine; ATTEND Internal Medicine Geriatric Medicine
DX: I13.2 Hypertensive heart and chronic kidney disease with heart failure and with stage 5 chronic kidney disease, or end stage renal disease (principal); N18.6 End stage renal disease; J96.01 Acute respiratory failure with hypoxia; I50.9 Heart failure, unspecified; G93.41 Metabolic encephalopathy; D63.8 Anemia in other chronic diseases classified elsewhere; E11.22 Type 2 diabetes mellitus with diabetic chronic kidney disease; I48.0 Paroxysmal atrial fibrillation; E11.42 Type 2 diabetes mellitus with diabetic polyneuropathy; H91.90 Unspecified hearing loss, unspecified ear; I25.10 Atherosclerotic heart disease of native coronary artery without angina pectoris; M89.8X9 Other specified disorders of bone, unspecified site; I25.2 Old myocardial infarction; K21.9 Gastro-esophageal reflux disease without esophagitis; Z99.2 Dependence on renal dialysis; G25.81 Restless legs syndrome; H54.8 Legal blindness, as defined in USA; I25.5 Ischemic cardiomyopathy; M48.00 Spinal stenosis, site unspecified; H91.91 Unspecified hearing loss, right ear; F41.9 Anxiety disorder, unspecified; D53.9 Nutritional anemia, unspecified; R00.1 Bradycardia, unspecified; Z91.15 Patient's noncompliance with renal dialysis; E78.5 Hyperlipidemia, unspecified; Z20.822 Contact with and (suspected) exposure to COVID-19; Z79.01 Long term (current) use of anticoagulants; Z79.82 Long term (current) use of aspirin; Z79.4 Long term (current) use of insulin; Z79.899 Other long term (current) drug therapy; Z88.1 Allergy status to other antibiotic agents; Z88.5 Allergy status to narcotic agent; Z88.0 Allergy status to penicillin; Z88.2 Allergy status to sulfonamides; Z91.09 Other allergy status, other than to drugs and biological substances; Z87.11 Personal history of peptic ulcer disease; Z95.5 Presence of coronary angioplasty implant and graft; Z86.010 Personal history of colon polyps; Z86.14 Personal history of Methicillin resistant Staphylococcus aureus infection; Z87.39 Personal history of other diseases of the musculoskeletal system and connective tissue; Z86.19 Personal history of other infectious and parasitic diseases; Z87.891 Personal history of nicotine dependence; Z98.890 Other specified postprocedural states; Z80.8 Family history of malignant neoplasm of other organs or systems; Z82.49 Family history of ischemic heart disease and other diseases of the circulatory system; Z83.3 Family history of diabetes mellitus; Z82.69 Family history of other diseases of the musculoskeletal system and connective tissue; Z80.1 Family history of malignant neoplasm of trachea, bronchus and lung; Z82.61 Family history of arthritis
CPT/HCPCS: 96376 ×2; 96374; 96375; 99285; 36415; 94640 ×2; 36600; 94760; 93005; 97161; 83880; 80053; 80048; 82140; 82805; 83605; 83735; 84100; 84484 ×2; 85025 ×2; 85610; 85730; 87635; 71046; 70450; G0257 ×3; G0378 ×5; J1940; J2550 ×2; 90935

== ENCOUNTER 2021-01-06 10:57 | Inpatient (IN) | payer MEDICARE, OTHER ==
[2021-01-06] MEDS ORDERED: ACETAMINOPHEN TAB 500 MG TAB PO STA (11:35)
[2021-01-06] MEDS ORDERED: VANCOMYCIN IV PER PHARMACY 1 EACH MISC MISCELLANE PRN (11:55)
[2021-01-06] MEDS ORDERED: VANCOMYCIN 1,500 MG in SODIUM CHLORIDE 0.9% 250 ML IVPB STA (12:01)
[2021-01-06 12:18] LABS: Basophils % (A) 0 %; Eosinophils % (A) 0 %; HCT 42.1 % (39.0-53.0); Lymphocytes # (A) 0.3 k/uL (1.0-4.8); Lymphocytes % (A) 2 %; MCH 31.4 pg (25.0-35.0); MCHC 32.5 g/dL (31.0-37.0); Mean Platelet Volume 8.3; Monocytes # (A) 0.5 k/uL (0-1.0); Monocytes % (A) 4 %; Neutrophils # (A) 12.3 k/uL (1.3-7.7); Neutrophils % (A) 92 %; Platelet Count 139 k/uL (150-450); RBC 4.36 m/uL (4.30-5.90); RDW 14.8 % (11.5-15.5); WBC 13.4 k/uL (3.8-10.6)
[2021-01-06 12:33] LABS: HGB 13.7 gm/dL (13.0-17.5); MCV 96.6 fL (80.0-100.0)
[2021-01-06 12:34] LABS: Albumin 3.7 g/dL (3.5-5.0); Calcium 9.1 mg/dL (8.4-10.2); Magnesium 2.1 mg/dL (1.6-2.3); Phosphorus 5.9 mg/dL (2.5-4.5); Total Bilirubin 0.6 mg/dL (0.2-1.3); Total Protein 6.7 g/dL (6.3-8.2)
[2021-01-06 12:39] LABS: INR 1.1 (<1.2); Partial Thromboplastin Time 25.8 sec (22.0-30.0); Prothrombin Time 11.1 sec (9.0-12.0)
--- NOTE | 2021-01-06 13:13 | XR ---
EXAMINATION TYPE: XR chest 2V DATE OF EXAM: 01/06/2021 COMPARISON: None HISTORY: 60-year-old male fever and headaches TECHNIQUE: AP and lateral views FINDINGS: Heart mildly enlarged. Diffuse interstitial opacity. No pleural effusion. IMPRESSION: Cardiomegaly and interstitial opacities. Correlate for possible CHF with pulmonary vascular congestio n versus atypical/COVID pneumonias.
[2021-01-06] MEDS ORDERED: IBUPROFEN 600 MG TAB PO STA (14:09)
--- NOTE | 2021-01-06 14:38 | ED ---
General Adult HPI - General Chief complaint: Altered Mental Status Stated complaint: altered mental status Time Seen by Provider: 01/06/21 11:35 Source: patient Mode of arrival: EMS Limitations: altered mental status - History of Present Illness Initial comments: 60-year-old male with multiple medical conditions, well-known to the emergency department presents to us from [facility]. Patient has had a recent fever. He has been refusing dialysis however has progressed to have worsening altered mental status. He was tested for influenza and Covid at his facility and was found to be negative. Patient admits to a headache with chills. Denies any neck pain to me. He states that he has not been doing his dialysis because he didn't feel well enough to do it. Review of the patient's chart demonstrates numerous admissions for C1-C2 osteomyelitis and endocarditis. Patient's does present to the emergency department. States that this is a recurring issue for the patient and that she is "getting tired". She reports of the patient is not a surgical candidate for valve repair due to his chronic medical conditions and dialysis needs. She feels as if the patient is more appropriate for palliative care. Patient cannot provide a great history however states that he is not ready to give up dialysis at this time. No known injuries. No other alleviating, precipitating or modifying factors - Related Data Home Medications Medication Instructions Recorded Confirmed Furosemide [Lasix] 80 mg PO BID@0600,1400 04/13/19 01/06/21 Ferrous Sulfate [Iron (65 MG 325 mg PO DAILY@1700 08/12/20 01/06/21 Elemental)] INSULIN ASPART (NovoLOG) [NovoLOG See Protocol SQ 08/12/20 01/06/21 (formulary)] ACHS@07,11,1630,2130 Insulin Detemir (Levemir) [Levemir] 5 unit SQ HS@209908/12/20 01/06/21 bisacodyL [Dulcolax] 10 mg RECTAL DAILY PRN 08/12/20 01/06/21 Amiodarone [Cordarone] 200 mg PO DAILY@0800 09/19/20 01/06/21 Apixaban [Eliquis] 2.5 mg PO BID@0800,2100 09/19/20 01/06/21 Atorvastatin [Lipitor] 40 mg PO HS@209909/19/20 01/06/21 Liquacel 30 ml PO BID@0800,209909/19/20 01/06/21 Metoprolol Tartrate [Lopressor] 25 mg PO BID@0800,209909/19/20 01/06/21 hydrALAZINE HCL [Apresoline] 75 mg PO TID@0600,1400,209909/19/20 01/06/21 metOLazone [Zaroxolyn] 5 mg PO DAILY@0800 09/19/20 01/06/21 Acetaminophen [Tylenol 8 Hour] 650 mg PO Q4H PRN 10/29/20 01/06/21 Baclofen [Lioresal] 5 mg PO Q8H PRN 10/29/20 01/06/21 Docusate [Colace] 100 mg PO BID@0800,1700 10/29/20 01/06/21 Ipratropium-Albuterol Nebulize 3 ml INHALATION RT-Q6H PRN 11/11/20 01/06/21 [Duoneb 0.5 mg-3 mg/3 ml Soln] Menthol-Zinc Oxide Oint 1 applic TOPICAL BID 11/11/20 01/06/21 [Calmoseptine Oint] Oxymetazoline 0.05% Nasl [place] 1 spray EA NOSTRIL Q12H PRN 11/11/20 01/06/21 [Afrin 0.05% Nasal [place]] Polyethylene Glycol 3350 [Miralax] 17 gm PO DAILY@0800 11/11/20 01/06/21 hydrOXYzine HCL 25 mg PO Q8H PRN 11/11/20 01/06/21 Cyanocobalamin [Vitamin B-12] 500 mcg PO DAILY@0800 11/30/20 01/06/21 Melatonin 6 mg PO HS@209911/30/20 01/06/21 Promethazine Hcl 25mg Solution 25 mg IM Q6H PRN 11/30/20 01/06/21 Aspirin [Children's Aspirin] 81 mg PO DAILY@1700 01/06/21 01/06/21 Calcium Acetate 1,334 mg PO TID@0800,1200,1700 01/06/21 01/06/21 Ergocalciferol [Vitamin D2 (1250 1,250 mcg PO SA 01/06/21 01/06/21 Mcg = 53555 Iu)] Gabapentin 300 mg PO BID@0800,1700 01/06/21 01/06/21 HYDROcodone/APAP 7.5-325MG [[place] 1 tab PO Q6H PRN 01/06/21 01/06/21 7.5-325] LORazepam [Ativan] 1 mg PO TID PRN 01/06/21 01/06/21 LORazepam [Ativan] 1 mg PO TUTHSA@1000 01/06/21 01/06/21 Loratadine [Claritin] 10 mg PO DAILY@0800 01/06/21 01/06/21 Triamcinolone 0.1% Ointment 1 applic TOPICAL BID 01/06/21 01/06/21 [Kenalog 0.1% Ointment] Previous Rx's Medication Instructions Recorded Lidocaine 4% Cream [Lmx 4] 1 applic TOPICAL Q4H PRN 10/30/20 Butalb/Acetaminophen/Caffeine 1 cap PO Q6H PRN #12 cap 12/02/20 [Fioricet 50-300-40 mg Capsule] Allergies Allergy/AdvReac Type Severity Reaction Status Date / Time codeine Allergy Unknown Verified 01/06/21 11:55 Penicillins Allergy Anaphylaxis Verified 01/06/21 11:55 sulfadiazine Allergy Unknown Verified 01/06/21 11:55 bumetanide [From Bumex] AdvReac Hallucinati Verified 01/06/21 11:55 ons morphine AdvReac Confusion Verified 01/06/21 11:55 rivaroxaban [From Xarelto] AdvReac Bloody Nose Verified 01/06/21 11:55 spironolactone AdvReac Hallucinati Verified 01/06/21 11:55 ons All antibiotics except Keflex Allergy Unknown Uncoded 11/30/20 19:00 Childhood Review of Systems ROS Statement: Those systems with pertinent positive or pertinent negative responses have been documented in the HPI. ROS Other: All systems not noted in ROS Statement are negative. Past Medical History Past Medical History: Atrial Fibrillation, Coronary Artery Disease (CAD), Heart Failure, Diabetes Mellitus, Dialysis, Eye Disorder, GERD/Reflux, Hearing Disorder / Deafness, Hyperlipidemia, Hypertension, Myocardial Infarction ([place]), Renal Disease, Syncope Additional Past Medical History / Comment(s): IDDM type II, neuropathy bilateral hands/feet, ESRD with hemodialysis on //, chronic anemia, LVH, Afib with RVR, MIs, chronic CHF, R eye blindness, L eye legally blind, RLS, pt unsure if h e has gout, vertigo at times, balance issues at times, stomach ulcer at age 17yrs, sinus problems, very [place] R ear. Last Myocardial Infarction Date:: 08/09/18 History of Any Multi-Drug Resistant Organisms: MRSA Date of last positivie culture/infection: 09/20/20 MDRO Source:: Blood Past Surgical History: Heart Catheterization, Heart Catheterization With Stent Additional Past Surgical History / Comment(s): TTT, PD catheter placement/since removed, 2016 L arm fistula, fistula gram with balloon for stenosis, L eye vitrectomy, thyroid needle aspiration-negative, L leg cyst, colonoscopy with benign polypectomy. port placed in chest Right side. Past Anesthesia/Blood Transfusion Reactions: Postoperative Nausea & Vomiting (PONV) Date of Last Stent Placement:: 03-03-18 Past Psychological History: Anxiety, Depression Smoking Status: Never smoker Past Alcohol Use History: None Reported Past Drug Use History: None Reported - Past Family History Father Family Medical History: Cancer, Coronary Artery Disease (CAD), Hyperlipidemia Additional Family Medical History / Comment(s): Lung/BRAIN CANCER Mother Family Medical History: Diabetes Mellitus, Deep Vein Thrombosis (DVT), Osteoarthritis (OA) Additional Family Medical History / Comment(s): DJD Sister(s) Family Medical History: Diabetes Mellitus Additional Family Medical History / Comment(s): Patient has one sister with diabetes mellitus type 2, SLE, MS. Brother(s) Family Medical History: Diabetes Mellitus Additional Family Medical History / Comment(s): Patient has 4 kids no major medical problems. Daughter(s) Family Medical History: No Reported History Additional Family Medical History / Comment(s): Patient has 2 daughters no major medical problems. Son(s) Family Medical History: No Reported History Additional Family Medical History / Comment(s): Patient has 2 sons no major med ical problems. General Exam Limitations: altered mental status General appearance: lethargic Head exam: Present: atraumatic, normocephalic, normal inspection Eye exam: Present: other (right eye blindness) ENT exam: Present: mucous membranes dry Respiratory exam: Present: rales Cardiovascular Exam: Present: regular rate, normal rhythm, normal heart sounds. Absent: systolic murmur, diastolic murmur, rubs, gallop, clicks GI/Abdominal exam: Present: soft. Absent: tenderness, guarding Extremities exam: Present: full ROM, pedal edema. Absent: tenderness Neurological exam: Present: altered Skin exam: Present: warm, diaphoretic Course Vital Signs 01/06/21 01/06/21 01/06/21 11:06 11:35 13:06 Temperature 103.4 F H 102.9 F H Pulse Rate 98 95 91 Respiratory 18 20 20 Rate Blood Pressure 146/72 155/81 153/77 O2 Sat by Pulse 98 99 99 Oximetry 01/06/21 01/06/21 15:11 18:12 Temperature 101.6 F H 98.7 F Pulse Rate 98 110 H Respiratory 16 18 Rate Blood Pressure 164/83 159/80 O2 Sat by Pulse 96 98 Oximetry EKG Findings - EKG Comments: EKG Findings:: EKG demonstrates sinus rhythm with a rate of 98. AK interval 164. QRS 80. QTC of 449. No acute ST segment elevations or depressions Medical Decision Making - Medical Decision Making Upon arrival the patient is placed into room 23. He is able to provide a history upon arrival. States that he has not felt well 3-4 days and has been refusing his dialysis for this same amount of time. Admits to a headache likely secondary to high fever. Requesting something for fever control. He is given a gram of Tylenol. Laboratory studies are conducted which elevated white count of 13.4. Creatinine is 6.9. Troponin 2.3. Patient has positive for Covid. arrives and states that the patient is supposed to be on vancomycin infusions when he receives his dialysis. States that likely since he has been refusing his dialysis he is also not getting his infusions. Chest x-ray does demonstrate cardiomegaly and interstitial opacities concerning for CHF versus atypical pneumonia. Patient is able to answer questions relatively appropriately however he is still sent for a CT of his head because of the reported altered mental status from the extended care facility. Demonstrates degenerative a remote ischemic change with no acute hemorrhage or mass effect. I did receive a call from the radiologist requesting more information in regards to his C1 and C2 vertebral segments. Informed him that he does have a chronic history of osteomyelitis. I called and spoke with Dr. Christian who agrees that he will admit the patient. understands that the patient is not a surgical candidate and will not benefit from transfer to an outside facility. Patient is not capable of making his own decisions at this time and we will therefore go with the preference. He was given vancomycin and blood cultures were obtained. He is currently awaiting a bed on the floor in stable condition with a guarded prognosis - Lab Data Result diagrams: 01/07/21 07:53 01/07/21 07:53 Lab Results 01/06/21 01/06/21 01/06/21 Range/Units 11:56 11:56 11:56 WBC 13.4 H (3.8-10.6) k/uL RBC 4.36 (4.30-5.90) m/uL Hgb 13.7 D (13.0-17.5) gm/dL Hct 42.1 (39.0-53.0) % MCV 96.6 D (80.0-100.0) fL MCH 31.4 (25.0-35.0) pg MCHC 32.5 (31.0-37.0) g/dL RDW 14.8 (11.5-15.5) % Plt Count 139 L (150-450) k/uL MPV 8.3 Neutrophils % 92 % Lymphocytes % 2 % Monocytes % 4 % Eosinophils % 0 % Basophils % 0 % Neutrophils # 12.3 H (1.3-7.7) k/uL Lymphocytes # 0.3 L (1.0-4.8) k/uL Monocytes # 0.5 (0-1.0) k/uL Eosinophils # 0.0 (0-0.7) k/uL Basophils # 0.0 (0-0.2) k/uL PT (9.0-12.0) sec INR (<1.2) APTT (22.0-30.0) sec Sodium 134 L (137-145) mmol/L Potassium 5.0 (3.5-5.1) mmol/L Chloride 94 L (98-107) mmol/L Carbon Dioxide 19 L (22-30) mmol/L Anion Gap 21 mmol/L BUN 83 H (9-20) mg/dL Creatinine 6.91 H (0.66-1.25) mg/dL Est GFR (CKD-EPI)AfAm 9 (>60 ml/min/1.73 sqM) Est GFR (CKD-EPI)NonAf 8 (>60 ml/min/1.73 sqM) Glucose 216 H (74-99) mg/dL Plasma Lactic Acid Ramirez 1.2 (0.7-2.0) mmol/L Calcium 9.1 (8.4-10.2) mg/dL Phosphorus 5.9 H (2.5-4.5) mg/dL Magnesium 2.1 (1.6-2.3) mg/dL Total Bilirubin 0.6 (0.2-1.3) mg/dL AST 42 (17-59) U/L ALT 30 (4-49) U/L Alkaline Phosphatase 127 H (38-126) U/L Troponin I (0.000-0.034) ng/mL Total Protein 6.7 (6.3-8.2) g/dL Albumin 3.7 (3.5-5.0) g/dL 01/06/21 01/06/21 Range/Units 11:56 11:56 WBC (3.8-10.6) k/uL RBC (4.30-5.90) m/uL Hgb (13.0-17.5) gm/dL Hct (39.0-53.0) % MCV (80.0-100.0) fL MCH (25.0-35.0) pg MCHC (31.0-37.0) g/dL RDW (11.5-15.5) % Plt Count (150-450) k/uL MPV Neutrophils % % Lymphocytes % % Monocytes % % Eosinophils % % Basophils % % Neutrophils # (1.3-7.7) k/uL Lymphocytes # (1.0-4.8) k/uL Monocytes # (0-1.0) k/uL Eosinophils # (0-0.7) k/uL Basophils # (0-0.2) k/uL PT 11.1 (9.0-12.0) sec INR 1.1 (<1.2) APTT 25.8 (22.0-30.0) sec Sodium (137-145) mmol/L Potassium (3.5-5.1) mmol/L Chloride (98-107) mmol/L Carbon Dioxide (22-30) mmol/L Anion Gap mmol/L BUN (9-20) mg/dL Creatinine (0.66-1.25) mg/dL Est GFR (CKD-EPI)AfAm (>60 ml/min/1.73 sqM) Est GFR (CKD-EPI)NonAf (>60 ml/min/1.73 sqM) Glucose (74-99) mg/dL Plasma Lactic Acid Ramirez (0.7-2.0) mmol/L Calcium (8.4-10.2) mg/dL Phosphorus (2.5-4.5) mg/dL Magnesium (1.6-2.3) mg/dL Total Bilirubin (0.2-1.3) mg/dL AST (17-59) U/L ALT (4-49) U/L Alkaline Phosphatase (38-126) U/L Troponin I 2.300 H* (0.000-0.034) ng/mL Total Protein (6.3-8.2) g/dL Albumin (3.5-5.0) g/dL Disposition Clinical Impression: Acute encephalopathy, ESRD on hemodialysis, Endocarditis Disposition: ADMITTED IP TO THIS [facility] Condition: Serious Is patient prescribed a controlled substance at d/c from ED?: No Decision to Admit Reason: Admit from EC Decision Date: 01/06/21 Decision Time: 14:44
[2021-01-06] MEDS ORDERED: NALOXONE 0.4 MG/ML 1 ML VIAL IV PRN (14:44)
--- NOTE | 2021-01-06 15:10 | CT ---
EXAMINATION TYPE: CT brain wo con DATE OF EXAM: 01/06/2021 COMPARISON: 11/30/2020 HISTORY: Confusion CT DLP: 1247.4 mGycm Automated exposure control for dose reduction was used. FINDINGS: Extensive hypertrophic and degenerative change of the C1-C2 articulation with erosive changes involvi ng C1 vertebral body. Widening of the predens space with widening of the atlantodens index. Report ca lled to ER clinicians 3:06 PM 01/06/2021. Atherosclerotic change of the vasculature. Moderate generalized degenerative change with low attenuat ion white matter which is nonspecific and mostly noted in the right frontal lobe but most typical rem ote white matter ischemia. [place] dense atherosclerotic changes of the vasculature including the [place] tebral arteries noted. IMPRESSION: 1. Degenerative and remote ischemic change suspected with no definite acute hemorrhage or mass effect . 2. There is extensive arthropathy and abnormal soft tissue involving the C1-C2 vertebral segments wit h erosive change probable destructive change. Case discussed with the ER physician reports patient saldana s history of C1 and C2 osteomyelitis. Neoplasm not excluded. 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 Impression upon the cervical medullary junction of the brain and spinal cord not ex cluded. MRI follow-up recommended the cervical spine.
[2021-01-06] MEDS ORDERED: hydrOXYzine HCL 25 MG TAB PO PRN (17:05)
[2021-01-06] MEDS ORDERED: bisacodyL 10 MG SUPP RECTAL PRN (17:05)
[2021-01-06] MEDS ORDERED: IPRATROPIUM-ALBUTEROL 3 ML NEB INHALATION PRN (17:05)
--- NOTE | 2021-01-06 17:54 | CT ---
EXAMINATION TYPE: CT cervical spine wo con DATE OF EXAM: 01/06/2021 COMPARISON: 04/10/2020 HISTORY: Abnormal Brain CT CT DLP: 595.6 mGycm Automated exposure control for dose reduction was used. There is some degenerative spurring anteriorly at C4-5 and C5-6. The posterior elements are intact. F acet joints are intact. There is no compression fracture. Skull base is intact. There is normal aerat ion of the mastoid sinuses. There are some erosions on the odontoid process. There is some mild widen ing of the space between the anterior arch of C1 and the odontoid process. This is a change compared to old exam. IMPRESSION: No fracture seen. Spondylotic changes in the lower cervical spine. There are some erosions on the odo ntoid process that could relate to inflammatory arthritis or osteomyelitis. There is some widening of the articulation of the C1 and C2 level that is suggestive of some instability. Abnormalities at the skull base are new compared to old CT scan of 04/10/2020.
[2021-01-06] MEDS: hydrALAZINE HCL 25 MG TAB PO SCH (20:02)
[2021-01-06] MEDS: ACETAMINOPHEN TAB 325 MG TAB PO PRN (20:03)
[2021-01-06] MEDS: IBUPROFEN 400 MG TAB PO PRN (20:03)
[2021-01-06] MEDS: METOPROLOL TARTRATE 25 MG TAB PO SCH (20:03)
[2021-01-06] MEDS: APIXABAN 2.5 MG TABLET PO SCH (20:03)
[2021-01-06] MEDS: ATORVASTATIN 40 MG TAB PO SCH (20:03)
[2021-01-06 20:08] LABS: Glucose,Whole Blood 205 mg/dL (75-99)
[2021-01-06] MEDS: INSULIN DETEMIR (LEVEMIR) 100 UNIT/ML SYR SQ SCH (23:17)
[2021-01-07] MEDS: CALCIUM ACETATE 667 MG TAB PO SCH ×3 (06:07→18:22)
[2021-01-07] MEDS: hydrALAZINE HCL 25 MG TAB PO SCH ×3 (06:07→19:48)
[2021-01-07] MEDS: FUROSEMIDE 80 MG TAB PO SCH ×2 (06:07→18:20)
[2021-01-07 06:29] LABS: Glucose,Whole Blood 157 mg/dL (75-99)
--- NOTE | 2021-01-07 07:35 | P.HPIM ---
History of Present Illness H&P Date: 01/06/21 H&P Date: 01/06/21 60-year-old male one of Dr. Quintero patient who care for at [facility] for long time he was send for [facility] today with significant shortness of breath and altered mental status. Patient had refused to go to hemodialysis for the last few days he become quite bed fluid overload more confused and sleepy and drowsy. Start running fever and chills. Patient was tested at [facility] for COVID-19 and influenza both were negative. 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 Also patient was not a candidate for surgical intervention for valve placement with his endocarditis so the decision was to keep him on antibiotic suppressive via dialysis at this point. Patient has not been doing well lately he has been refusing dialysis refusing medical care indication on such, long discussion with him about idea of palliative care and hospice had failed. His was on board and agreeable to do hospice care initially but when patient is feeling slightly but better he usually change the status to completely full code. With him refusing dialysis 8 left choices are limited at this point his will be contacted patient is not able to make decision at this point with see if talking to the about doing palliative care or hospice care would be appropriate at this point specially with patient is not going for any major intervention or surgery and he is refusing to be on IV antibiotics. We'll consult infectious disease and nephrology and will resume dialysis at this point and continue IV antibiotic through dialysis. Patient was seen in the emergency department was not feeling well his blood pressure was quite bit low patient was mildly tachycardic his troponin was mildly elevated white blood cell was 13.4 blood culture was done cervical spine CT was done showed widening of the articulation of the C1-C2 which suggestive of some instability also had an abnormality at the skull base are new compared to the last one from 04/10/2020 which most likely and osteomyelitis. Chest x-ray shows cardiomegaly and quite but congestion consistent with CHF and possible pneumonitis. REVIEW OF SYSTEMS Constitutional: no fever, no chills, no night sweats. Significant weight gain and fluid retention. Reported weakness, reported fatigue Reported lethargy. Reported daytime sleepiness. EENT: Reports headache. He has lack of vision in one of his eyes.. No loss of Hearing, no ringing in the ears, no dizziness. No nasal drainage or congestion. No epistaxis. No sore throat. Lungs: Significant shortness of breath mild PND or wheezes. Cardiovascular: Positive fluid retention, PND, orthopnea, lightheadedness and dizziness with no syncope no significant chest pain but significant shortness of breath and dyspnea. Abdominal: Slight abdominal pain with distention and mild nausea no vomiting positive tarry stool and significant change in bowel habit. Genitourinary: Doesn't make much urine because of end-stage renal disease no burning or discomfort. Musculoskeletal: Positive myalgia muscle and generalized fatigue. Integumentary: Significant edema and water retention lower extremity with slight discoloration from the knee down. Neurologic: No aphasia. No facial droop. Noted change in mentation. No head injury. No headache. No paralysis. No paresthesia. Psychiatric: Mild depression confusion with no anxiety. Endocrine: Noted abnormal blood sugars. No weight change. SOCIAL HISTORY Patient was a smoker for 23 years and quit in 1995. No alcohol use, illicit drug use. He lives at home with his and has been in rehab at [facility]. FAMILY HISTORY Father at age 72 from brain cancer also had history of coronary artery disease. Mother is 83-year-old with history of diabetes type 2 and osteoarthritis. Patient has one sister with diabetes, SLE and MS. Patient's 1 brother with diabetes and one with no major medical problems. Patient has 2 daughters with no major medical problems and 2 sons with no major medical problems.. PHYSICAL EXAMINATION Gen: This is a 60-year-old male patient resting on ER stretch. He appears to be in no acute distress but quite bit confused. HEENT: Head is atraumatic, normocephalic. Pupils equal, round. Sclerae is anicteric. NECK: Supple. No JVD. No lymphadenopathy. No thyromegaly. LUNGS: Decreased expansion bilaterally with fine rhonchi positive mild crackles basis has not spread wheezes. HEART: Regular rate and rhythm. 2/6 systolic murmur with mild tachycardia.. ABDOMEN: Soft positive bowel sounds slight distention with no rebound or rigidity. EXTREMITIES: 1+ pedal edema with slight arthritis slight discoloration from the knee down. NEUROLOGICAL: Patient is sleeping, awakes to verbal stimuli. Cranial nerves 2 through 12 are grossly intact. ASSESSMENT AND PLAN 1. Sepsis: Most likely from osteomyelitis and endocarditis related to noncompliance to his vancomycin via dialysis: Patient will be hospitalized continue dialysis continue vancomycin will consult infectious disease and nephrology at this point. 2. worsening uremia: Secondary to end-stage renal disease with missing dialysis more often. 3. 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 Patient and family don't want her be transferred to [place] or [facility] no intervention is can be done at this point. 4. Metabolic encephalopathy secondary to uremia, fluid overload, will try to treat underlying disease 5. Shortness of breath secondary to fluid overload from missed dialysis treatment will consult with nephrology for the urgent need for hemodialysis. 6. End-stage renal disease on hemodialysis. Consult with nephrology appreciated. Continue PhosLo 667 mg 3 times daily, Aranesp 40 g subcu every 7 days, hemodialysis. Patient had missed dialysis recently because of hypertension and a change mental status. 7. Degenerative disc disease and spinal stenosis. Continue gabapentin 300 mg at bedtime. Continue baclofen 5 mg every 8 hours as needed. Patient also had osteomyelitis of the cervical spine with continue IV antibiotics. 8. History of coronary artery disease with previous PTCA to LAD and circumflex. Continue aspirin 81 mg daily, atorvastatin 40 mg at bedtime, Lopressor 25 mg twice daily. He is hardly taking his medication at this point. 9. Paroxysmal atrial fibrillation. Continue eliquis 2.5 mg twice daily, Lopressor, amiodarone 200 mg daily pulse rates under control at this point. 10. Ischemic cardiomyopathy. Continue Lopressor, Lasix 80 mg twice daily, metolazone 5 mg daily. Still removing more fluid with hemodialysis. Patient will require hemodialysis for better management of his ischemic cardiopathy. 11. Diabetes mellitus type 2, insulin requiring. Continue Levemir 5 units at bedtime, add NovoLog scale before meals and at bedtime, 12. Hypertension. Continue hydralazine 75 mg 3 times daily. 13. Anemia of chronic disease. Continue ferrous sulfate 325 mg twice daily. Along with Aranesp 40 g subcu every 7 days. 14. GI prophylaxis. Continue Protonix. 15. DVT prophylaxis. Was on Eliquis which will be held for now. 16. Covid 19 testing: Negative. Patient will be admitted to the hospital for a minimum of 2 night stay. Prognosis: Very guarded. Family will be contacted potential tachycardia about possible hospice care. Past Medical History Past Medical History: Atrial Fibrillation, Coronary Artery Disease (CAD), Heart Failure, Diabetes Mellitus, Dialysis, Eye Disorder, GERD/Reflux, Hearing Disorder / Deafness, Hyperlipidemia, Hypertension, Myocardial Infarction ([place]), Renal Disease, Syncope Additional Past Medical History / Comment(s): IDDM type II, neuropathy bilateral hands/feet, ESRD with hemodialysis on //, chronic anemia, LVH, Afib with RVR, MIs, chronic CHF, R eye blindness, L eye legally blind, RLS, pt unsure if he has gout, vertigo at times, balance issues at times, stomach ulcer at age 17yrs, sinus problems, very [place] R ear. Last Myocardial Infarction Date:: 08/09/18 History of Any Multi-Drug Resistant Organisms: MRSA Date of last positivie culture/infection: 09/20/20 MDRO Source:: Blood Past Surgical History: Heart Catheterization, Heart Catheterization With Stent Additional Past Surgical History / Comment(s): TTT, PD catheter placement/since removed, 2016 L arm fistula, fistula gram with balloon for stenosis, L eye vitrectomy, thyroid needle aspiration-negative, L leg cyst, colonoscopy with benign polypectomy. port placed in chest Right side. Past Anesthesia/Blood Transfusion Reactions: Postoperative Nausea & Vomiting (PONV) Date of Last Stent Placement:: 03-03-18 Past Psychological History: Anxiety, Depression Smoking Status: Never smoker Past Alcohol Use History: None Reported Past Drug Use History: None Reported - Past Family History Father Family Medical History: Cancer, Coronary Artery Disease (CAD), Hyperlipidemia Additional Family Medical History / Comment(s): Lung/BRAIN CANCER Mother Family Medical History: Diabetes Mellitus, Deep Vein Thrombosis (DVT), Osteoarthritis (OA) Additional Family Medical History / Comment(s): DJD Sister(s) Family Medical History: Diabetes Mellitus Additional Family Medical History / Comment(s): Patient has one sister with diabetes mellitus type 2, SLE, MS. Brother(s) Family Medical History: Diabetes Mellitus Additional Family Medical History / Comment(s): Patient has 4 kids no major medical problems. Daughter(s) Family Medical History: No Reported History Additional Family Medical History / Comment(s): Patient has 2 daughters no major medical problems. Son(s) Family Medical History: No Reported History Additional Family Medical History / Comment(s): Patient has 2 sons no major medical problems. Medications and Allergies Home Medications Medication Instructions Recorded Confirmed Type Furosemide [Lasix] 80 mg PO BID@0600,1400 04/13/19 01/06/21 History Ferrous Sulfate [Iron (65 MG 325 mg PO DAILY@1700 08/12/20 01/06/21 History Elemental)] INSULIN ASPART (NovoLOG) [NovoLOG See Protocol SQ 08/12/20 01/06/21 History (formulary)] ACHS@07,11,1630,2130 Insulin Detemir (Levemir) [Levemir] 5 unit SQ HS@209908/12/20 01/06/21 History bisacodyL [Dulcolax] 10 mg RECTAL DAILY PRN 08/12/20 01/06/21 History Amiodarone [Cordarone] 200 mg PO DAILY@0800 09/19/20 01/06/21 History Apixaban [Eliquis] 2.5 mg PO BID@0800,209909/19/20 01/06/21 History Atorvastatin [Lipitor] 40 mg PO HS@209909/19/20 01/06/21 History Liquacel 30 ml PO BID@0800,209909/19/20 01/06/21 History Metoprolol Tartrate [Lopressor] 25 mg PO BID@0800,209909/19/20 01/06/21 History hydrALAZINE HCL [Apresoline] 75 mg PO TID@0600,1400,209909/19/20 01/06/21 History metOLazone [Zaroxolyn] 5 mg PO DAILY@0800 09/19/20 01/06/21 History Acetaminophen [Tylenol 8 Hour] 650 mg PO Q4H PRN 10/29/20 01/06/21 History Baclofen [Lioresal] 5 mg PO Q8H PRN 10/29/20 01/06/21 History Docusate [Colace] 100 mg PO BID@0800,1700 10/29/20 01/06/21 History Lidocaine 4% Cream [Lmx 4] 1 applic TOPICAL Q4H PRN 10/30/20 01/06/21 Rx Ipratropium-Albuterol Nebulize 3 ml INHALATION RT-Q6H PRN 11/11/20 01/06/21 History [Duoneb 0.5 mg-3 mg/3 ml Soln] Menthol-Zinc Oxide Oint 1 applic TOPICAL BID 11/11/20 01/06/21 History [Calmoseptine Oint] Oxymetazoline 0.05% Nasl [place] 1 spray EA NOSTRIL Q12H PRN 11/11/20 01/06/21 History [Afrin 0.05% Nasal Leslie] Polyethylene Glycol 3350 [Miralax] 17 gm PO DAILY@0800 11/11/20 01/06/21 History hydrOXYzine HCL 25 mg PO Q8H PRN 11/11/20 01/06/21 History Cyanocobalamin [Vitamin B-12] 500 mcg PO DAILY@0800 11/30/20 01/06/21 History Melatonin 6 mg PO HS@2100 11/30/20 01/06/21 History Promethazine Hcl 25mg Solution 25 mg IM Q6H PRN 11/30/20 01/06/21 History Butalb/Acetaminophen/Caffeine 1 cap PO Q6H PRN #12 cap 12/02/20 01/06/21 Rx [Fioricet 50-300-40 mg Capsule] Aspirin [Children's Aspirin] 81 mg PO DAILY@1700 01/06/21 01/06/21 History Calcium Acetate 1,334 mg PO TID@0800,1200,1700 01/06/21 01/06/21 History Ergocalciferol [Vitamin D2 (1250 1,250 mcg PO SA 01/06/21 01/06/21 History Mcg = 21688 Iu)] Gabapentin 300 mg PO BID@0800,1700 01/06/21 01/06/21 History HYDROcodone/APAP 7.5-325MG [[place] 1 tab PO Q6H PRN 01/06/21 01/06/21 History 7.5-325] LORazepam [Ativan] 1 mg PO TID PRN 01/06/21 01/06/21 History LORazepam [Ativan] 1 mg PO TUTHSA@1000 01/06/21 01/06/21 History Loratadine [Claritin] 10 mg PO DAILY@0800 01/06/21 01/06/21 History Triamcinolone 0.1% Ointment 1 applic TOPICAL BID 01/06/21 01/06/21 History [Kenalog 0.1% Ointment] Allergies Allergy/AdvReac Type Severity Reaction Status Date / Time codeine Allergy Unknown Verified 01/06/21 11:55 Penicillins Allergy Anaphylaxis Verified 01/06/21 11:55 sulfadiazine Allergy Unknown Verified 01/06/21 11:55 bumetanide [From Bumex] AdvReac Hallucinati Verified 01/06/21 11:55 ons morphine AdvReac Confusion Verified 01/06/21 11:55 rivaroxaban [From Xarelto] AdvReac Bloody Nose Verified 01/06/21 11:55 spironolactone AdvReac Hallucinati Verified 01/06/21 11:55 ons All antibiotics except Keflex Allergy Unknown Uncoded 11/30/20 19:00 Childhood Physical Exam Vitals: Vital Signs Temp Pulse Resp BP Pulse Ox 01/06/21 15:11 101.6 F H 98 16 164/83 96 01/06/21 13:06 102.9 F H 91 20 153/77 99 01/06/21 11:35 95 20 155/81 99 01/06/21 11:06 103.4 F H 98 18 146/72 98 Intake and Output 01/06/21 01/06/21 01/06/21 06:59 14:59 22:59 Other: Weight 79.379 kg Results CBC & Chem 7: 01/06/21 11:56 01/06/21 11:56 Labs: Abnormal Lab Results - Last 24 Hours (Table) 01/06/21 01/06/21 01/06/21 Range/Units 11:56 11:56 11:56 WBC 13.4 H (3.8-10.6) k/uL Plt Count 139 L (150-450) k/uL Neutrophils # 12.3 H (1.3-7.7) k/uL Lymphocytes # 0.3 L (1.0-4.8) k/uL Sodium 134 L (137-145) mmol/L Chloride 94 L (98-107) mmol/L Carbon Dioxide 19 L (22-30) mmol/L BUN 83 H (9-20) mg/dL Creatinine 6.91 H (0.66-1.25) mg/dL Glucose 216 H (74-99) mg/dL Phosphorus 5.9 H (2.5-4.5) mg/dL Alkaline Phosphatase 127 H (38-126) U/L Troponin I 2.300 H* (0.000-0.034) ng/mL
[2021-01-07 08:39] LABS: Basophils % (A) 0 %; Eosinophils % (A) 0 %; HCT 43.3 % (39.0-53.0); HGB 13.5 gm/dL (13.0-17.5); Lymphocytes % (A) 4 %; MCH 30.5 pg (25.0-35.0); MCHC 31.1 g/dL (31.0-37.0); Monocytes % (A) 5 %; Neutrophils % (A) 87 %; Platelet Count 143 k/uL (150-450); RBC 4.42 m/uL (4.30-5.90); RDW 14.7 % (11.5-15.5); WBC 9.8 k/uL (3.8-10.6)
[2021-01-07 08:40] LABS: Lymphocytes # (A) 0.4 k/uL (1.0-4.8); Monocytes # (A) 0.5 k/uL (0-1.0); Neutrophils # (A) 8.4 k/uL (1.3-7.7)
[2021-01-07] MEDS: METOPROLOL TARTRATE 25 MG TAB PO SCH ×2 (08:44→19:52)
[2021-01-07] MEDS: AMIODARONE 200 MG TAB PO SCH (08:44)
[2021-01-07] MEDS: APIXABAN 2.5 MG TABLET PO SCH ×2 (08:44→19:52)
[2021-01-07 08:57] LABS: Calcium 9.1 mg/dL (8.4-10.2); Potassium 4.4 mmol/L (3.5-5.1)
[2021-01-07] MEDS ORDERED: VANCOMYCIN 1,500 MG in SODIUM CHLORIDE 0.9% 250 ML IVPB ONE (09:00)
[2021-01-07] MEDS ORDERED: MIDODRINE 5 MG TAB PO PRN (10:14)
[2021-01-07] MEDS: DOCUSATE 100 MG CAP PO SCH ×2 (10:32→18:21)
[2021-01-07] MEDS: GABAPENTIN 300 MG CAP PO SCH ×2 (10:32→18:22)
[2021-01-07] MEDS: LORATADINE 10 MG TAB PO SCH (10:32)
[2021-01-07] MEDS: CYANOCOBALAMIN 500 MCG TAB PO SCH (10:32)
[2021-01-07] MEDS: metOLazone 5 MG TAB PO SCH (10:32)
[2021-01-07 11:32] LABS: Glucose,Whole Blood 127 mg/dL (75-99)
--- NOTE | 2021-01-07 11:39 | P.PN ---
Subjective Progress Note Date: 01/07/21 60-year-old male one of Dr. Quintero patient who care for at [facility] for long time he was send for [facility] today with significant shortness of breath and altered mental status. Patient had refused to go to hemodialysis for the last few days he become quite bed fluid overload more confused and sleepy and drowsy. Start running fever and chills. Patient was tested at [facility] for COVID-19 and influenza both were negative. 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 Also patient was not a candidate for surgical intervention for valve placement with his endocarditis so the decision was to keep him on antibiotic suppressive via dialysis at this point. Patient has not been doing well lately he has been refusing dialysis refusing medical care indication on such, long discussion with him about idea of palliative care and hospice had failed. His was on board and agreeable to do hospice care initially but when patient is feeling slightly but better he usually change the status to completely full code. With him refusing dialysis 8 left choices are limited at this point his will be contacted patient is not able to make decision at this point with see if talking to the about doing palliative care or hospice care would be appropriate at this point specially with patient is not going for any major intervention or surgery and he is refusing to be on IV antibiotics. We'll consult infectious disease and nephrology and will resume dialysis at this point and continue IV antibiotic through dialysis. Patient was seen in the emergency department was not feeling well his blood pressure was quite bit low patient was mildly tachycardic his troponin was mildly elevated white blood cell was 13.4 blood culture was done cervical spine CT was done showed widening of the articulation of the C1-C2 which suggestive of some instability also had an abnormality at the skull base are new compared to the last one from 04/10/2020 which most likely and osteomyelitis. Chest x-ray shows cardiomegaly and quite but congestion consistent with CHF and possible pneumonitis. 01/07: Discussed CODE STATUS with the patient's and patient will be made no code. She is not ready for hospice care at this point will be discussed then later time. Patient is currently undergoing hemodialysis and blood pressure is 90/44. He has been afebrile, heart rate in the 1 teens 122, pulse ox 90% on 2 L nasal cannula. Repeat blood work reveals WBC 9.8, hemoglobin 13.5, platelet count 143. Chloride 95. BUN 103 creatinine 8.26. Blood sugars are running between 127 and 176. Blood culture positive for Staphylococcus aureus. Patient is on vancomycin. Consult for Dr. Ardon. Patient is followed by Dr. Nguyen. REVIEW OF SYSTEMS Constitutional: no fever, no chills, no night sweats. Significant weight gain and fluid retention. Reported weakness, reported fatigue Reported lethargy. Reported daytime sleepiness. EENT: Reports headache. He has lack of vision in one of his eyes.. No loss of Hearing, no ringing in the ears, no dizziness. No nasal drainage or congestion. No epistaxis. No sore throat. Lungs: Significant shortness of breath mild PND or wheezes. Cardiovascular: Positive fluid retention, PND, orthopnea, lightheadedness and dizziness with no syncope no significant chest pain but significant shortness of breath and dyspnea. Abdominal: Slight abdominal pain with distention and mild nausea no vomiting positive tarry stool and significant change in bowel habit. Genitourinary: Doesn't make much urine because of end-stage renal disease no burning or discomfort. Musculoskeletal: Positive myalgia muscle and generalized fatigue. Integumentary: Significant edema and water retention lower extremity with slight discoloration from the knee down. Neurologic: No aphasia. No facial droop. Noted change in mentation. No head injury. No headache. No paralysis. No paresthesia. Psychiatric: Mild depression noted confusion with no anxiety. Endocrine: Noted abnormal blood sugars. No weight change. PHYSICAL EXAMINATION Gen: This is a 60-year-old male patient resting in bed currently undergoing hemodialysis. HEENT: Head is atraumatic, normocephalic. Pupils equal, round. Sclerae is anicteric. NECK: Supple. No JVD. No lymphadenopathy. No thyromegaly. LUNGS: Decreased expansion bilaterally with fine rhonchi positive mild crackles basis has not spread wheezes. HEART: Regular rate and rhythm. 2/6 systolic murmur with mild tachycardia.. ABDOMEN: Soft positive bowel sounds slight distention with no rebound or rigidity. EXTREMITIES: 1+ pedal edema with slight arthritis slight discoloration from the knee down. NEUROLOGICAL: Patient is sleeping, awakes minimally to verbal stimuli. ASSESSMENT AND PLAN 1. Sepsis: Most likely from osteomyelitis and endocarditis related to noncompliance to his vancomycin via dialysis: Patient will be hospitalized continue dialysis continue vancomycin will consult infectious disease and nephrology at this point. 2. worsening uremia: Secondary to end-stage renal disease with missing dialysis more often. 3. 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 Patient and family don't want her be transferred to [place] or [facility] no intervention is can be done at this point. 4. Metabolic encephalopathy secondary to uremia, fluid overload, will try to treat underlying disease 5. Shortness of breath secondary to fluid overload from missed dialysis treatment will consult with nephrology for the urgent need for hemodialysis. 6. End-stage renal disease on hemodialysis. Consult with nephrology appreciated. Continue PhosLo 667 mg 3 times daily, Aranesp 40 g subcu every 7 days, hemodialysis. Patient had missed dialysis recently because of hypertension and a change mental status. 7. Degenerative disc disease and spinal stenosis. Continue gabapentin 300 mg at bedtime. Continue baclofen 5 mg every 8 hours as needed. Patient also had osteomyelitis of the cervical spine with continue IV antibiotics. 8. History of coronary artery disease with previous PTCA to LAD and circumflex. Continue aspirin 81 mg daily, atorvastatin 40 mg at bedtime, Lopressor 25 mg twice daily. He is hardly taking his medication at this point. 9. Paroxysmal atrial fibrillation. Continue eliquis 2.5 mg twice daily, Lopressor, amiodarone 200 mg daily pulse rates under control at this point. 10. Ischemic cardiomyopathy. Continue Lopressor, Lasix 80 mg twice daily, metolazone 5 mg daily. Still removing more fluid with hemodialysis. Patient will require hemodialysis for better management of his ischemic cardiopathy. 11. Diabetes mellitus type 2, insulin requiring. Continue Levemir 5 units at bedtime, add NovoLog scale before meals and at bedtime, 12. Hypertension. Continue hydralazine 75 mg 3 times daily. 13. Anemia of chronic disease. Continue ferrous sulfate 325 mg twice daily. Along with Aranesp 40 g subcu every 7 days. 14. GI prophylaxis. Continue Protonix. 15. DVT prophylaxis. Was on Eliquis which will be held for now. 16. Covid 19 testing: Negative. Patient will be admitted to the hospital for a minimum of 2 night stay. Prognosis: Very guarded. Family will be contacted potential hospice care. CODE STATUS: No code Discharge plan: Return to [facility] Impression and plan of care have been directed as dictated by the signing physician. Katelyn Wesley nurse practitioner acting as scribe for signing physician. Objective - Vital Signs Vital signs: Vital Signs Temp 98.0 F 01/07/21 08:01 Pulse 122 H 01/07/21 08:01 Resp 22 01/07/21 08:01 BP 99/64 01/07/21 08:01 Pulse Ox 90 L 01/07/21 08:01 Intake & Output 01/06/21 01/07/21 01/07/21 18:59 06:59 18:59 Intake Total 250 10 Balance 250 10 Weight 79.379 kg 107 kg Intake: IV 10 Invasive Line 1 10 Intake, IV Titration 250 Amount Vancomycin 1,500 mg In 250 Sodium Chloride 0.9% 250 ml @ 125 mls/hr IVPB ONCE ONE Rx#:[id number] Other: Voiding Method Diaper # Voids 1 - Labs CBC & Chem 7: 01/07/21 07:53 01/07/21 07:53 Labs: Abnormal Lab Results - Last 24 Hours (Table) 01/06/21 01/06/21 01/06/21 Range/Units 11:56 11:56 11:56 WBC 13.4 H (3.8-10.6) k/uL Plt Count 139 L (150-450) k/uL Neutrophils # 12.3 H (1.3-7.7) k/uL Lymphocytes # 0.3 L (1.0-4.8) k/uL Sodium 134 L (137-145) mmol/L Chloride 94 L (98-107) mmol/L Carbon Dioxide 19 L (22-30) mmol/L BUN 83 H (9-20) mg/dL Creatinine 6.91 H (0.66-1.25) mg/dL Glucose 216 H (74-99) mg/dL POC Glucose (mg/dL) (75-99) mg/dL Phosphorus 5.9 H (2.5-4.5) mg/dL Alkaline Phosphatase 127 H (38-126) U/L Troponin I 2.300 H* (0.000-0.034) ng/mL 01/06/21 01/07/21 01/07/21 Range/Units 20:06 06:28 07:53 WBC (3.8-10.6) k/uL Plt Count 143 L (150-450) k/uL Neutrophils # 8.4 H (1.3-7.7) k/uL Lymphocytes # 0.4 L (1.0-4.8) k/uL Sodium (137-145) mmol/L Chloride (98-107) mmol/L Carbon Dioxide (22-30) mmol/L BUN (9-20) mg/dL Creatinine (0.66-1.25) mg/dL Glucose (74-99) mg/dL POC Glucose (mg/dL) 205 H 157 H (75-99) mg/dL Phosphorus (2.5-4.5) mg/dL Alkaline Phosphatase (38-126) U/L Troponin I (0.000-0.034) ng/mL 01/07/21 Range/Units 07:53 WBC (3.8-10.6) k/uL Plt Count (150-450) k/uL Neutrophils # (1.3-7.7) k/uL Lymphocytes # (1.0-4.8) k/uL Sodium (137-145) mmol/L Chloride 95 L (98-107) mmol/L Carbon Dioxide (22-30) mmol/L BUN 103 H* (9-20) mg/dL Creatinine 8.26 H* (0.66-1.25) mg/dL Glucose 176 H (74-99) mg/dL POC Glucose (mg/dL) (75-99) mg/dL Phosphorus (2.5-4.5) mg/dL Alkaline Phosphatase (38-126) U/L Troponin I (0.000-0.034) ng/mL Microbiology - Last 24 Hours (Table) 01/06/21 11:40 Blood Culture Gram Stain - Preliminary Blood 01/06/21 11:30 Blood Culture Gram Stain - Preliminary Blood 01/06/21 11:40 Blood Culture - Final Blood 01/06/21 11:30 Blood Culture - Final Blood
[2021-01-07] MEDS: ACETAMINOPHEN TAB 325 MG TAB PO PRN (12:25)
--- NOTE | 2021-01-07 13:06 | CONS ---
CONSULTATION REASON FOR CONSULTATION: End-stage renal disease. HISTORY OF PRESENT ILLNESS: Patient is a 60-year-old male who has a history of end-stage renal disease and previous history of diskitis and bacteremia and endocarditis. He was admitted to the hospital with fever. Patient is maintained on a Wednesday, , Wednesday schedule for dialysis. He did not get his dialysis yesterday. Patient did not go for his dialysis on Wednesday. He states that he was feeling too weak. He has also had issues with volume overload previously. This morning patient denies any significant cough. He has had some nausea. No obvious vomiting or diarrhea noted. There had been a long discussion with the patient regarding palliative care and hospice. It appears that patient wanted to continue with FULL CODE. He had been refusing IV antibiotics if needed and additional cardiac surgery if needed previously. PAST MEDICAL HISTORY: Atrial fibrillation, coronary artery disease, CHF, type 2 diabetes, diabetic neuropathy, retinopathy, nephropathy, gastroesophageal reflux disease, hearing loss, hyperlipidemia, hypertension, AL, syncope, LVH, right eye blindness, gout. SURGICAL HISTORY: Cardiac catheterization, coronary stent placement, PD catheter placement and removal, left arm fistula, multiple interventions on the fistula, colonoscopies, left leg cyst removal, IJ catheter placement and removal, polypectomy. SOCIAL HISTORY: Negative for smoking, drug abuse or alcohol abuse. MEDICATIONS: Medications at home included Lasix, iron, insulin, Dulcolax, amiodarone, Eliquis, Lipitor, Lopressor, Zaroxolyn, hydralazine, Colace, MiraLAX, melatonin, PhosLo, gabapentin, Ativan, [place]. ALLERGIES: ALLERGIES include CODEINE, PENICILLIN, SULFADIAZINE, BUMEX, MORPHINE, XARELTO, SPIRONOLACTONE. REVIEW OF SYSTEMS: As per HPI. Other systems negative. PHYSICAL EXAMINATION: Patient is currently comfortable. He is seen on dialysis, tolerating his treatment okay. Blood pressure has been low; therefore we have cut down the ultrafiltration. Blood pressure was 99/64, heart rate 120 per minute. He is afebrile. EXAMINATION OF THE HEART: S1 and S2. EXAMINATION OF LUNGS: Bilateral breath sounds are heard. Abdomen is soft. Examination of lower extremities shows no significant edema. [employer]ING [employer] EXAM: Grossly intact. LABS: Sodium 138, potassium 4.4, chloride 95, BUN 103, serum creatinine 8.26, hemoglobin 13.5, white cell count 9.8. Blood cultures are growing Staphylococcus aureus. ASSESSMENT: 1. End-stage renal disease, on hemodialysis on a Wednesday, , Wednesday schedule. Patient is being dialyzed today. We will run him again tomorrow for about 2-1/2 hours, and then he will run again on for his regular treatment. 2. Staphylococcus aureus bacteremia with previous history of diskitis and endocarditis, maintained on IV antibiotics. ID is on consult. Patient has refused antibiotics and surgery previously. CODE STATUS is being addressed again with the patient and his family. 3. Chronic kidney disease mineral bone disorder. 4. Coronary artery disease and history of congestive heart failure, currently not in significant volume overload. 5. Encephalopathy, most likely associated with some degree of uremia; seems to be improving. 6. Paroxysmal atrial fibrillation, maintained on low-dose Eliquis and Lopressor and amiodarone for rate control. 7. Type 2 diabetes with neuropathy, retinopathy and nephropathy. PLAN: Hemodialysis today and then again in a.m. Continue with antibiotics. Decreased ultrafiltration. Thank you for this consultation. Will continue to follow the patient with you during his hospitalization. MMODL / IJN: [id number] /
[2021-01-07] MEDS: IBUPROFEN 400 MG TAB PO PRN (14:55)
[2021-01-07 16:24] LABS: Glucose,Whole Blood 128 mg/dL (75-99)
[2021-01-07] MEDS: ASPIRIN 81 MG PO SCH (18:21)
[2021-01-07] MEDS: FERROUS SULFATE 325 MG TAB PO SCH (18:21)
[2021-01-07 19:22] LABS: Glucose,Whole Blood 142 mg/dL (75-99)
[2021-01-07] MEDS: BUTALB/APAP/CAFF 50-325-40MG TAB PO PRN (19:52)
[2021-01-07] MEDS: ATORVASTATIN 40 MG TAB PO SCH (19:53)
[2021-01-07] MEDS: INSULIN DETEMIR (LEVEMIR) 100 UNIT/ML SYR SQ SCH (21:12)
--- NOTE | 2021-01-08 00:43 | P.CONS ---
History of Present Illness - Reason for Consult Consult date: 01/07/21 bacteremia Requesting physician: Perry Christian - Chief Complaint Fever and mental status changes x 1 day - History of Present Illness History of present illness : Patient is 60-year-old male with a past medical history significant for end-stage renal disease on hemodialysis currently through the left arm AV fistula in this patient who did have a history of a permacatheter infection with subsequently concern for deep infection the patient did have a history of recurrent MRSA bacteremia on the last admission was thought to be related to possible small cervical paraspinal abscess for which the patient was transferred to tertiary care however the patient did not receive any surgical intervention or CT-guided drainage of that abscess and has been treated with 6 to 8-day course of IV vancomycin it is unclear when exactly the patient has completed his antibiotic therapy patient now presenting to the ER yesterday afternoon for evaluation of fever and pain the patient was refusing dialysis and the patient has progressive worsening of his mental status patient did have a Covid and influenza testing which came back negative on arrival to the ER patient did have a fever of 103 F patient was tachycardic patient did have white count 13.4 with a left shift creatinine was 8.26 liver labs were normal troponin was mildly elevated mccall PCR was negative patient did have a chest x-ray cardiomegaly with interstitial opacity concerning for CHF versus COVID-[address] of the brain was negative for any bleed patient did have a cervical spine CT with and without contrast no fracture some erosion on the ordering type process could relate to intermittent otitis or osteomyelitis widening of the articulation of C1 and C2 suggestive of some instability abnorm alities at the skull base are new compared to previous CT patient did have a blood cultures came back positive with Staph aureus patient is treated with vancomycin infectious disease was consulted for further management of antibiotic therapy patient currently slightly more awake alert he is aware he is in the hospital denies any headache or pain to the neck area no chest pain shortness of breath or cough no abdominal pain no diarrhea Review of system: CONSTITUTIONAL: Positive for weakness along with the fever. EYES: No complaint. ENT: No complaint. RESPIRATORY: No complaint. CARDIOVASCULAR: No complaint. GENITOURINARY: No complaint. GASTROINTESTINAL: No complaint. MUSCULOSKELETAL: No complaint. INTEGUMENTARY: No complaint. PSYCHOLOGIC: No complaint. ENDOCRINE: No complaint. NEUROLOGIC: As per history of present illness Past medical history : Reviewed, documented below Past surgical history : Reviewed, documented below Social history: Reviewed, documented below Medications: Reviewed, as documented below EXAMINATION: Vital sigans= Reviewed and documented below GENERAL DESCRIPTION: Middle-aged male lying in bed, no distress. No tachypnea or accessory muscle of respiration use. HEENT: Shows Pallor , no scleral icterus. Oral mucous membrane is dry. NECK: Trachea central, no thyromegaly. LUNGS: Unlabored breathing. Decreased breath sound at the base. No wheeze or cr ackle. HEART: S1, S2, regular rate and rhythm. ABDOMEN: Soft, no tenderness , guarding or rigidity EXTREMITIES: No edema of feet. SKIN: No rash, no masses palpable. NEUROLOGICAL: The patient is awake, alert, oriented x3, mood and affect normal. LABS AND RADIOLOGY: Reviewed results see below Assessment : Patient presented to hospital with sepsis in this we did have fever tachycardia elevated white count now with evidence of staph aureus bacteremia likely MRSA in this patient did have history of recurrent MRSA bacteremia with the last admission suspicious for C1-2 paraspinal abscess and osteomyelitis for the patient was transferred to tertiary care however was not considered to be a surgical candidate and has been treated with IV antibiotic therapy and follow-up vancomycin with the patient has completed now with recurrence of his bacteremia he did have abnormal CT of the cervical spine suspicious for instability and more likely the source of this bacteremia Plan: 1-patient to continue vancomycin pharmacy to dose 2-blood cultures will be repeated daily document clearance of his bacteremia 3-patient may benefit from MRI of the cervical spine possibly with a contrast to better define underlying abnormality versus transfer the patient to tertiary care We will follow on clinical condition and cultures to further adjust medication if needed Thank you for this consultation we will follow the patient along with you Past Medical History Past Medical History: Atrial Fibrillation, Coronary Artery Disease (CAD), Heart Failure, Diabetes Mellitus, Dialysis, Eye Disorder, GERD/Reflux, Hearing Disorder / Deafness, Hyperlipidemia, Hypertension, Myocardial Infarction (GA), Renal Disease, Syncope Additional Past Medical History / Comment(s): IDDM type II, neuropathy bilateral hands/feet, ESRD with hemodialysis on //, chronic anemia, LVH, Afib with RVR, MIs, chronic CHF, R eye blindness, L eye legally blind, RLS, pt unsure if he has gout, vertigo at times, balance issues at times, stomach ulcer at age 17yrs, sinus problems, very ENTERPRISE R ear. Last Myocardial Infarction Date:: 08/09/18 History of Any Multi-Drug Resistant Organisms: MRSA Year Discovered:: 09/20/20 MDRO Source:: Blood Past Surgical History: Heart Catheterization, Heart Catheterization With Stent Additional Past Surgical History / Comment(s): TTT, PD catheter placement/since removed, 2016 L arm fistula, fistula gram with balloon for stenosis, L eye vitrectomy, thyroid needle aspiration-negative, L leg cyst, colonoscopy with benign polypectomy. port placed in chest Right side. Past Anesthesia/Blood Transfusion Reactions: Postoperative Nausea & Vomiting (PONV) Date of Last Stent Placement:: 03-03-18 Past Psychological History: Anxiety, Depression Smoking Status: Never smoker Past Alcohol Use History: None Reported Past Drug Use History: None Reported - Past Family History Father Family Medical History: Cancer, Coronary Artery Disease (CAD), Hyperlipidemia Additional Family Medical History / Comment(s): Lung/BRAIN CANCER Mother Family Medical History: Diabetes Mellitus, Deep Vein Thrombosis (DVT), Osteoarthritis (OA) Additional Family Medical History / Comment(s): DJD Sister(s) Family Medical History: Diabetes Mellitus Additional Family Medical History / Comment(s): Patient has one sister with diabetes mellitus type 2, SLE, MS. Brother(s) Family Medical History: Diabetes Mellitus Additional Family Medical History / Comment(s): Patient has 4 kids no major medical problems. Daughter(s) Family Medical History: No Reported History Additional Family Medical History / Comment(s): Patient has 2 daughters no major medical problems. Son(s) Family Medical History: No Reported History Additional Family Medical History / Comment(s): Patient has 2 sons no major medical problems. Medications and Allergies Home Medications Medication Instructions Recorded Confirmed Type Furosemide [Lasix] 80 mg PO BID@0600,1400 04/13/19 01/06/21 History Ferrous Sulfate [Iron (65 MG 325 mg PO DAILY@1700 08/12/20 01/06/21 History Elemental)] INSULIN ASPART (NovoLOG) [NovoLOG See Protocol SQ 08/12/20 01/06/21 History (formulary)] ACHS@07,11,1630,2130 Insulin Detemir (Levemir) [Levemir] 5 unit SQ HS@2100 08/12/2015/21 History bisacodyL [Dulcolax] 10 mg RECTAL DAILY PRN 08/12/20 01/06/21 History Amiodarone [Cordarone] 200 mg PO DAILY@0800 09/19/20 01/06/21 History Apixaban [Eliquis] 2.5 mg PO BID@0800,209909/19/20 01/06/21 History Atorvastatin [Lipitor] 40 mg PO HS@209909/19/20 01/06/21 History Liquacel 30 ml PO BID@0800,209909/19/20 01/06/21 History Metoprolol Tartrate [Lopressor] 25 mg PO BID@0800,209909/19/20 01/06/21 History hydrALAZINE HCL [Apresoline] 75 mg PO TID@0600,1400,209909/19/20 01/06/21 History metOLazone [Zaroxolyn] 5 mg PO DAILY@0800 09/19/20 01/06/21 History Acetaminophen [Tylenol 8 Hour] 650 mg PO Q4H PRN 10/29/20 01/06/21 History Baclofen [Lioresal] 5 mg PO Q8H PRN 10/29/20 01/06/21 History Docusate [Colace] 100 mg PO BID@0800,1700 10/29/20 01/06/21 History Lidocaine 4% Cream [Lmx 4] 1 applic TOPICAL Q4H PRN 10/30/20 01/06/21 Rx Ipratropium-Albuterol Nebulize 3 ml INHALATION RT-Q6H PRN 11/11/20 01/06/21 History [Duoneb 0.5 mg-3 mg/3 ml Soln] Menthol-Zinc Oxide Oint 1 applic TOPICAL BID 11/11/20 01/06/21 History [Calmoseptine Oint] Oxymetazoline 0.05% Nasl [place] 1 spray EA NOSTRIL Q12H PRN 11/11/20 01/06/21 History [Afrin 0.05% Nasal [place]] Polyethylene Glycol 3350 [Miralax] 17 gm PO DAILY@0800 11/11/20 01/06/21 History hydrOXYzine HCL 25 mg PO Q8H PRN 11/11/20 01/06/21 History Cyanocobalamin [Vitamin B-12] 500 mcg PO DAILY@0800 11/30/20 01/06/21 History Melatonin 6 mg PO HS@2100 11/30/20 01/06/21 History Promethazine Hcl 25mg Solution 25 mg IM Q6H PRN 11/30/20 01/06/21 History Butalb/Acetaminophen/Caffeine 1 cap PO Q6H PRN #12 cap 12/02/20 01/06/21 Rx [Fioricet 50-300-40 mg Capsule] Aspirin [Children's Aspirin] 81 mg PO DAILY@1700 01/06/21 01/06/21 History Calcium Acetate 1,334 mg PO TID@0800,1200,1700 01/06/21 01/06/21 History Ergocalciferol [Vitamin D2 (1250 1,250 mcg PO SA 01/06/21 01/06/21 History Mcg = 46373 Iu)] Gabapentin 300 mg PO BID@0800,1700 01/06/21 01/06/21 History HYDROcodone/APAP 7.5-325MG [[place] 1 tab PO Q6H PRN 01/06/21 01/06/21 History 7.5-325] LORazepam [Ativan] 1 mg PO TID PRN 01/06/21 01/06/21 History LORazepam [Ativan] 1 mg PO TUTHSA@1000 01/06/21 01/06/21 History Loratadine [Claritin] 10 mg PO DAILY@0800 01/06/21 01/06/21 History Triamcinolone 0.1% Ointment 1 applic TOPICAL BID 01/06/21 01/06/21 History [Kenalog 0.1% Ointment] Allergies Allergy/AdvReac Type Severity Reaction Status Date / Time codeine Allergy Unknown Verified 01/06/21 11:55 Penicillins Allergy Anaphylaxis Verified 01/06/21 11:55 sulfadiazine Allergy Unknown Verified 01/06/21 11:55 bumetanide [From Bumex] AdvReac Hallucinati Verified 01/06/21 11:55 ons morphine AdvReac Confusion Verified 01/06/21 11:55 rivaroxaban [From Xarelto] AdvReac Bloody Nose Verified 01/06/21 11:55 spironolactone AdvReac Hallucinati Verified 01/06/21 11:55 ons All antibiotics except Keflex Allergy Unknown Uncoded 11/30/20 19:00 Childhood Physical Exam Vitals: Vital Signs Temp Pulse Pulse Pulse Resp BP BP 01/07/21 08:01 98.0 F 122 H 22 99/64 01/07/21 05:59 86/54 01/07/21 02:30 97.6 F 114 H 17 97/46 01/07/21 01:59 122 H 01/06/21 23:35 100.9 F H 81 16 97/50 01/06/21 20:00 103.1 F H 108 H 108 H 17 161/87 01/06/21 18:12 98.7 F 110 H 18 159/80 01/06/21 15:11 101.6 F H 98 16 164/83 01/06/21 13:06 102.9 F H 91 20 153/77 Pulse Ox 01/07/21 08:01 90 L 01/07/21 05:59 01/07/21 02:30 96 01/07/21 01:59 01/06/21 23:35 92 L 01/06/21 20:00 97 01/06/21 18:12 98 01/06/21 15:11 96 01/06/21 13:06 99 Intake and Output 01/06/21 01/07/21 01/07/21 22:59 06:59 14:59 Intake Total 250 10 Balance 250 10 Intake: IV 10 Invasive Line 1 10 Intake, IV Titration 250 Amount Vancomycin 1,500 mg In 250 Sodium Chloride 0.9% 250 ml @ 125 mls/hr IVPB ONCE ONE Rx#:[id number] Other: Voiding Method Diaper Diaper # Voids 1 # Bowel Movements 1 Weight 79.379 kg 107 kg Results CBC & Chem 7: 01/07/21 07:53 01/07/21 07:53 Labs: Abnormal Lab Results - Last 24 Hours (Table) 01/06/21 01/06/21 01/07/21 Range/Units 11:56 20:06 06:28 Plt Count (150-450) k/uL Neutrophils # (1.3-7.7) k/uL Lymphocytes # (1.0-4.8) k/uL Chloride (98-107) mmol/L BUN (9-20) mg/dL Creatinine (0.66-1.25) mg/dL Glucose (74-99) mg/dL POC Glucose (mg/dL) 205 H 157 H (75-99) mg/dL Troponin I 2.300 H* (0.000-0.034) ng/mL 01/07/21 01/07/21 01/07/21 Range/Units 07:53 07:53 11:31 Plt Count 143 L (150-450) k/uL Neutrophils # 8.4 H (1.3-7.7) k/uL Lymphocytes # 0.4 L (1.0-4.8) k/uL Chloride 95 L (98-107) mmol/L BUN 103 H* (9-20) mg/dL Creatinine 8.26 H* (0.66-1.25) mg/dL Glucose 176 H (74-99) mg/dL POC Glucose (mg/dL) 127 H (75-99) mg/dL Troponin I (0.000-0.034) ng/mL Microbiology - Last 24 Hours (Table) 01/06/21 11:40 Blood Culture Gram Stain - Preliminary Blood Blood Culture - Preliminary Staphylococcus aureus 01/06/21 11:30 Blood Culture Gram Stain - Preliminary Blood 01/06/21 11:40 Blood Culture - Final Blood 01/06/21 11:30 Blood Culture - Final Blood
[2021-01-08] MEDS: IBUPROFEN 400 MG TAB PO PRN (01:52)
[2021-01-08 05:50] LABS: Glucose,Whole Blood 102 mg/dL (75-99)
[2021-01-08] MEDS: hydrALAZINE HCL 25 MG TAB PO SCH ×3 (06:12→20:11)
[2021-01-08] MEDS: CALCIUM ACETATE 667 MG TAB PO SCH ×3 (06:20→16:30)
[2021-01-08] MEDS: BUTALB/APAP/CAFF 50-325-40MG TAB PO PRN ×3 (06:20→20:15)
[2021-01-08 10:52] LABS: Vancomycin,Random 22.7 ug/mL
[2021-01-08 11:21] LABS: C Reactive Protein 14.5 mg/dL (<1.0)
[2021-01-08 11:55] LABS: Glucose,Whole Blood 96 mg/dL (75-99)
[2021-01-08] MEDS: GABAPENTIN 300 MG CAP PO SCH ×2 (12:19→16:30)
[2021-01-08] MEDS: METOPROLOL TARTRATE 25 MG TAB PO SCH ×2 (12:19→20:11)
[2021-01-08] MEDS: LORATADINE 10 MG TAB PO SCH (12:19)
[2021-01-08] MEDS: APIXABAN 2.5 MG TABLET PO SCH ×2 (12:19→20:11)
[2021-01-08] MEDS: AMIODARONE 200 MG TAB PO SCH (12:19)
[2021-01-08] MEDS: CYANOCOBALAMIN 500 MCG TAB PO SCH (12:19)
[2021-01-08] MEDS: metOLazone 5 MG TAB PO SCH (12:19)
[2021-01-08] MEDS: DOCUSATE 100 MG CAP PO SCH ×2 (12:48→16:30)
--- NOTE | 2021-01-08 15:24 | PN ---
PROGRESS NOTE The patient is seen for followup for end-stage renal disease. He is currently seen on hemodialysis. He is awake, comfortable, confused, but mentation appears to be much better than yesterday. PHYSICAL EXAMINATION: On examination today, blood pressure 97/55, heart rate 110 per minute. He is afebrile. Examination of the heart S1, S2. Examination of the lungs, bilateral breath sounds are heard. Abdomen is soft. Examination of lower extremities shows no evidence of edema. Significant wrinkling of the skin noted suggesting recent fluid removal. LAB: Show random vancomycin level at 22.7. Potassium was 4.4 yesterday with BUN 103 and creatinine 8.2. Blood cultures from January 06 show Staph aureus one out of four. ASSESSMENT: 1. End-stage renal disease on hemodialysis on a Wednesday, , Wednesday schedule. Patient is getting an extra treatment today mostly for the significantly elevated BUN and creatinine and altered mentation, which always improves with aggressive dialysis. 2. Staph aureus bacteremia, being followed by infectious disease with previous history of diskitis and endocarditis. The patient had been refusing surgery and apparently had also refused IV antibiotics. 3. History of severe volume overload, currently improved. 4. Chronic kidney disease mineral bone disorder. 5. Hypertension, blood pressure does fluctuate and occasionally it drops down below 100 for which patient requires midodrine. PLAN: Repeat dialysis tomorrow. No ultrafiltration and check labs in a.m. MMODL / BISIN: [id number] /
--- NOTE | 2021-01-08 15:28 | P.PN ---
Subjective Progress Note Date: 01/08/21 60-year-old male one of Dr. Quintero patient who care for at [facility] for long time he was send for [facility] today with significant shortness of breath and altered mental status. Patient had refused to go to hemodialysis for the last few days he become quite bed fluid overload more confused and sleepy and drowsy. Start running fever and chills. Patient was tested at [facility] for COVID-19 and influenza both were negative. Patient is known to have history of endocarditis has been on suppressive treatment for MRSA bacteria on vancomycin via dialysis patient had skipped dialysis last few times also he is known to have osteomyelitis of the cervical spine as well with the same type of bacteria which is MRSA and has been on vancomycin no surgical intervention possible at this point patient had paraspinal abscess in the C1-C2 area which has been maintain suppressing any further growth by doing IV antibiotics the decision was made by neurosurgeon at [facility] along with another neurosurgeon at [facility]. Also patient was not a candidate for surgical intervention for valve placement with his endocarditis so the decision was to keep him on antibiotic suppressive via dialysis at this point. Patient has not been doing well lately he has been refusing dialysis refusing medical care indication on such, long discussion with him about idea of palliative care and hospice had failed. His was on board and agreeable to do hospice care initially but when patient is feeling slightly but better he usually change the status to completely full code. With him refusing dialysis 8 left choices are limited at this point his will be contacted patient is not able to make decision at this point with see if talking to the about doing palliative care or hospice care would be appropriate at this point specially with patient is not going for any major intervention or surgery and he is refusing to be on IV antibiotics. We'll consult infectious disease and nephrology and will resume dialysis at this point and continue IV antibiotic through dialysis. Patient was seen in the emergency department was not feeling well his blood pressure was quite bit low patient was mildly tachycardic his troponin was mildly elevated white blood cell was 13.4 blood culture was done cervical spine CT was done showed widening of the articulation of the C1-C2 which suggestive of some instability also had an abnormality at the skull base are new compared to the last one from 04/10/2020 which most likely and osteomyelitis. Chest x-ray shows cardiomegaly and quite but congestion consistent with CHF and possible pneumonitis. 01/07: Discussed CODE STATUS with the patient's and patient will be made no code. She is not ready for hospice care at this point will be discussed then later time. Patient is currently undergoing hemodialysis and blood pressure is 90/44. He has been afebrile, heart rate in the 1 teens 122, pulse ox 90% on 2 L nasal cannula. Repeat blood work reveals WBC 9.8, hemoglobin 13.5, platelet count 143. Chloride 95. BUN 103 creatinine 8.26. Blood sugars are running between 127 and 176. Blood culture positive for Staphylococcus aureus. Patient is on vancomycin. Consult for Dr. Ardon. Patient is followed by Dr. Nguyen. 01/08: Patient is seen today in follow-up, he is undergoing hemodialysis. He is more alert today and closer to baseline. He does not recall anything about coming into the hospital. Patient has been in and out of atrial fibrillation and most likely hemodialysis will need to be cut short today. He has been seen by Dr. Ardon and is ordered daily blood cultures and recommended possible MRI versus transfer the patient. Patient does state that he is feeling all better today. He is currently on IV vancomycin dosed by pharmacy. Patient has been afebrile. Blood pressure 135/81. Sed rate 30. Blood sugars running between 96 and 142. C-reactive protein 14.5. Vancomycin level XXII.7. REVIEW OF SYSTEMS Constitutional: no fever, no chills, no night sweats. Significant weight gain and fluid retention. Reported weakness, reported fatigue Reported lethargy. Reported daytime sleepiness. EENT: Reports headache. He has lack of vision in one of his eyes.. No loss of Hearing, no ringing in the ears, no dizziness. No nasal drainage or congestion. No epistaxis. No sore throat. Lungs: Significant shortness of breath mild PND or wheezes. Cardiovascular: Positive fluid retention, PND, orthopnea, lightheadedness and dizziness with no syncope no significant chest pain but significant shortness of breath and dyspnea. Abdominal: Slight abdominal pain with distention and mild nausea no vomiting positive tarry stool and significant change in bowel habit. Genitourinary: Doesn't make much urine because of end-stage renal disease no burning or discomfort. Musculoskeletal: Positive myalgia muscle and generalized fatigue. Integumentary: Significant edema and water retention lower extremity with slight discoloration from the knee down. Neurologic: No aphasia. No facial droop. Noted change in mentation, improving. No head injury. No headache. No paralysis. No paresthesia. Psychiatric: Mild depression noted confusion with no anxiety. Endocrine: Noted abnormal blood sugars. No weight change. PHYSICAL EXAMINATION Gen: This is a 60-year-old male patient resting in bed currently undergoing hemodialysis. HEENT: Head is atraumatic, normocephalic. Pupils equal, round. Sclerae is anicteric. NECK: Supple. No JVD. No lymphadenopathy. No thyromegaly. LUNGS: Decreased expansion bilaterally with fine rhonchi positive mild crackles basis has not spread wheezes. HEART: Regular rate and rhythm. 2/6 systolic murmur with mild tachycardia.. ABDOMEN: Soft positive bowel sounds slight distention with no rebound or rigidity. EXTREMITIES: 1+ pedal edema with slight arthritis slight discoloration from the knee down. NEUROLOGICAL: Patient is awake alert and oriented to person and place. ASSESSMENT AND PLAN 1. Sepsis: Most likely from osteomyelitis and endocarditis related to noncompliance to his vancomycin via dialysis: Patient will be hospitalized continue dialysis continue vancomycin, consult with infectious disease appreciated. Blood cultures are to be drawn daily. 2. worsening uremia: Secondary to end-stage renal disease with missing dialysis more often. Consult with nephrology appreciated. 3. 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 Patient and family don't want her be transferred to [facility] or [facility] no intervention is can be done at this point. 4. Metabolic encephalopathy secondary to uremia, fluid overload, will try to treat underlying disease 5. Shortness of breath secondary to fluid overload from missed dialysis treatment will consult with nephrology for the urgent need for hemodialysis. 6. End-stage renal disease on hemodialysis. Consult with nephrology appreciated. Continue PhosLo 667 mg 3 times daily, Aranesp 40 g subcu every 7 days, hemodialysis. Patient had missed dialysis recently because of hypertension and a change mental status. 7. Degenerative disc disease and spinal stenosis. Continue gabapentin 300 mg at bedtime. Continue baclofen 5 mg every 8 hours as needed. Patient also had osteomyelitis of the cervical spine with continue IV antibiotics. 8. History of coronary artery disease with previous PTCA to LAD and circumflex. Continue aspirin 81 mg daily, atorvastatin 40 mg at bedtime, Lopressor 25 mg twice daily. He is hardly taking his medication at this point. 9. Paroxysmal atrial fibrillation. Continue eliquis 2.5 mg twice daily, Lopressor, amiodarone 200 mg daily pulse rates under control at this point. 10. Ischemic cardiomyopathy. Continue Lopressor, Lasix 80 mg twice daily, metolazone 5 mg daily. Still removing more fluid with hemodialysis. Patient will require hemodialysis for better management of his ischemic cardiopathy. 11. Diabetes mellitus type 2, insulin requiring. Continue Levemir 5 units at bedtime, add NovoLog scale before meals and at bedtime, 12. Hypertension. Continue hydralazine 75 mg 3 times daily. 13. Anemia of chronic disease. Continue ferrous sulfate 325 mg twice daily. Along with Aranesp 40 g subcu every 7 days. 14. GI prophylaxis. Continue Protonix. 15. DVT prophylaxis. Was on Eliquis which will be held for now. 16. Covid 19 testing: Negative. Prognosis: Very guarded. Family will be contacted potential hospice care. CODE STATUS: No code Discharge plan: Return to [facility] Impression and plan of care have been directed as dictated by the signing physician. Katelyn Wesley nurse practitioner acting as scribe for signing physician. Objective - Vital Signs Vital signs: Vital Signs Temp 98.1 F 01/08/21 04:00 Pulse 110 H 01/08/21 04:00 Resp 18 01/08/21 04:00 BP 97/55 01/08/21 04:00 Pulse Ox 98 01/08/21 04:00 Intake & Output 01/07/21 01/08/21 01/08/21 18:59 06:59 18:59 Intake Total 256 118 Output Total 0 0 Balance 256 0 118 Weight 90 kg Intake: IV 20 Invasive Line 1 20 Oral 236 118 Output: Urine 0 Hemodialysis 0 Other: Voiding Method Diaper Diaper # Voids 0 # Bowel Movements 1 - Labs CBC & Chem 7: 01/07/21 07:53 01/07/21 07:53 Labs: Abnormal Lab Results - Last 24 Hours (Table) 01/07/21 01/07/21 01/07/21 Range/Units 11:31 16:22 19:20 ESR (0-15) mm/hr POC Glucose (mg/dL) 127 H 128 H 142 H (75-99) mg/dL C-Reactive Protein (<1.0) mg/dL 01/08/21 01/08/21 01/08/21 Range/Units 05:47 07:08 07:08 ESR 30 H (0-15) mm/hr POC Glucose (mg/dL) 102 H (75-99) mg/dL C-Reactive Protein 14.5 H (<1.0) mg/dL Microbiology - Last 24 Hours (Table) 01/06/21 11:40 Blood Culture Gram Stain - Preliminary Blood Blood Culture - Preliminary Staphylococcus aureus 01/06/21 11:30 Blood Culture Gram Stain - Preliminary Blood
[2021-01-08] MEDS: FERROUS SULFATE 325 MG TAB PO SCH (16:30)
[2021-01-08] MEDS: ASPIRIN 81 MG PO SCH (16:30)
[2021-01-08 16:56] LABS: Glucose,Whole Blood 101 mg/dL (75-99)
[2021-01-08] MEDS ORDERED: VANCOMYCIN 1,500 MG in SODIUM CHLORIDE 0.9% 250 ML IVPB ONE (18:00)
[2021-01-08 19:42] LABS: Glucose,Whole Blood 97 mg/dL (75-99)
[2021-01-08] MEDS: INSULIN DETEMIR (LEVEMIR) 100 UNIT/ML SYR SQ SCH (20:04)
[2021-01-08] MEDS: ATORVASTATIN 40 MG TAB PO SCH (20:11)
[2021-01-09] MEDS: BUTALB/APAP/CAFF 50-325-40MG TAB PO PRN ×2 (05:00→17:19)
[2021-01-09] MEDS: CALCIUM ACETATE 667 MG TAB PO SCH ×3 (06:17→17:20)
[2021-01-09 06:19] LABS: Glucose,Whole Blood 154 mg/dL (75-99)
[2021-01-09] MEDS: hydrALAZINE HCL 25 MG TAB PO SCH ×3 (08:02→22:42)
--- NOTE | 2021-01-09 09:33 | PN ---
PROGRESS NOTE DATE OF SERVICE: 01/08/2021 REASON FOR FOLLOWUP: MRSA bacteremia, possible paraspinal abscess. INTERVAL HISTORY: The patient is afebrile. The patient is currently breathing comfortably. No chest pain, shortness of breath or cough. No abdominal pain or diarrhea. PHYSICAL EXAMINATION: Blood pressure 119/60 with pulse of 120, temperature 98.9. He is 99% on 2 L nasal cannula. General description is a middle-aged male lying in bed in no distress. Respiratory system: Unlabored breathing, decreased breath sounds in the base. No wheeze. Heart S1, S2. Regular rate and rhythm. Abdomen soft, no tenderness. LABS: Vancomycin random was 22.7. Sedimentation rate of 30. Blood cultures positive. DIAGNOSTIC IMPRESSION AND PLAN: Patient with MRSA bacteremia in this patient with recurrent episode of bacteremia with concern for possible paraspinal with an abnormal CT. May benefit from an MRI or transfer to tertiary care. Continue with vancomycin and continue supportive care. MMODL / IJN: [id number] /
[2021-01-09] MEDS: METOPROLOL TARTRATE 25 MG TAB PO SCH ×2 (11:16→22:41)
[2021-01-09] MEDS: APIXABAN 2.5 MG TABLET PO SCH ×2 (11:16→22:42)
[2021-01-09] MEDS: GABAPENTIN 300 MG CAP PO SCH ×2 (11:16→17:20)
[2021-01-09] MEDS: DOCUSATE 100 MG CAP PO SCH ×2 (11:16→17:20)
[2021-01-09] MEDS: metOLazone 5 MG TAB PO SCH (11:16)
[2021-01-09] MEDS: LORATADINE 10 MG TAB PO SCH (11:16)
[2021-01-09] MEDS: CYANOCOBALAMIN 500 MCG TAB PO SCH (11:16)
[2021-01-09] MEDS: AMIODARONE 200 MG TAB PO SCH (11:16)
[2021-01-09 11:38] LABS: Glucose,Whole Blood 108 mg/dL (75-99)
--- NOTE | 2021-01-09 16:29 | P.PN ---
Subjective Progress Note Date: 01/09/21 60-year-old male one of Dr. Quintero patient who care for at [facility] for long time he was send for [facility] today with significant shortness of breath and altered mental status. Patient had refused to go to hemodialysis for the last few days he become quite bed fluid overload more confused and sleepy and drowsy. Start running fever and chills. Patient was tested at [facility] for COVID-19 and influenza both were negative. 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 Also patient was not a candidate for surgical intervention for valve placement with his endocarditis so the decision was to keep him on antibiotic suppressive via dialysis at this point. Patient has not been doing well lately he has been refusing dialysis refusing medical care indication on such, long discussion with him about idea of palliative care and hospice had failed. His was on board and agreeable to do hospice care initially but when patient is feeling slightly but better he usually change the status to completely full code. With him refusing dialysis 8 left choices are limited at this point his will be contacted patient is not able to make decision at this point with see if talking to the about doing palliative care or hospice care would be appropriate at this point specially with patient is not going for any major intervention or surgery and he is refusing to be on IV antibiotics. We'll consult infectious disease and nephrology and will resume dialysis at this point and continue IV antibiotic through dialysis. Patient was seen in the emergency department was not feeling well his blood pressure was quite bit low patient was mildly tachycardic his troponin was mildly elevated white blood cell was 13.4 blood culture was done cervical spine CT was done showed widening of the articulation of the C1-C2 which suggestive of some instability also had an abnormality at the skull base are new compared to the last one from 04/10/2020 which most likely and osteomyelitis. Chest x-ray shows cardiomegaly and quite but congestion consistent with CHF and possible pneumonitis. 01/07: Discussed CODE STATUS with the patient's and patient will be made no code. She is not ready for hospice care at this point will be discussed then later time. Patient is currently undergoing hemodialysis and blood pressure is 90/44. He has been afebrile, heart rate in the 1 teens 122, pulse ox 90% on 2 L nasal cannula. Repeat blood work reveals WBC 9.8, hemoglobin 13.5, platelet count 143. Chloride 95. BUN 103 creatinine 8.26. Blood sugars are running between 127 and 176. Blood culture positive for Staphylococcus aureus. Patient is on vancomycin. Consult for Dr. Ardon. Patient is followed by Dr. Nguyen. 01/08: Patient is seen today in follow-up, he is undergoing hemodialysis. He is more alert today and closer to baseline. He does not recall anything about coming into the hospital. Patient has been in and out of atrial fibrillation and most likely hemodialysis will need to be cut short today. He has been seen by Dr. Ardon and is ordered daily blood cultures and recommended possible MRI versus transfer the patient. Patient does state that he is feeling all better today. He is currently on IV vancomycin dosed by pharmacy. Patient has been afebrile. Blood pressure 135/81. Sed rate 30. Blood sugars running between 96 and 142. C-reactive protein 14.5. Vancomycin level XXII.7. 01/09: Patient is awake with eyes closed, he is slow to respond and answer questions. He does agree that we can contact his and discuss prognosis and plan. Patient has not 8 and for the past 2 days. He is refusing his medications. Patient is refusing to undergo MRI. Patient is afebrile, heart rate 125, blood pressure 107/68, pulse ox 100% on 2 L nasal cannula. Blood sugars are running between 97 and 154. Repeat blood cultures from 01/08 are positive. Plan to contact patient's later today. REVIEW OF SYSTEMS Constitutional: no fever, no chills, no night sweats. Significant weight gain and fluid retention. Reported weakness, reported fatigue Reported lethargy. Reported daytime sleepiness. EENT: Reports headache. He has lack of vision in one of his eyes.. No loss of Hearing, no ringing in the ears, no dizziness. No nasal drainage or congestion. No epistaxis. No sore throat. Lungs: Significant shortness of breath mild PND or wheezes. Cardiovascular: Positive fluid retention, PND, orthopnea, lightheadedness and dizziness with no syncope no significant chest pain but significant shortness of breath and dyspnea. Abdominal: Slight abdominal pain with distention and mild nausea no vomiting positive tarry stool and significant change in bowel habit. Genitourinary: Doesn't make much urine because of end-stage renal disease no burning or discomfort. Musculoskeletal: Positive myalgia muscle and generalized fatigue. Reports back discomfort. Integumentary: Significant edema and water retention lower extremity with slight discoloration from the knee down. Neurologic: No aphasia. No facial droop. Noted change in mentation, improving. No head injury. No headache. No paralysis. No paresthesia. Psychiatric: Mild depression noted confusion with no anxiety. Endocrine: Noted abnormal blood sugars. No weight change. PHYSICAL EXAMINATION Gen: This is a 60-year-old male patient resting in bed and appears to be in no acute distress. HEENT: Head is atraumatic, normocephalic. Pupils equal, round. Sclerae is anicteric. NECK: Supple. No JVD. No lymphadenopathy. No thyromegaly. LUNGS: Decreased expansion bilaterally with fine rhonchi positive mild crackles basis has not spread wheezes. HEART: Regular rate and rhythm. 2/6 systolic murmur with mild tachycardia.. ABDOMEN: Soft positive bowel sounds slight distention with no rebound or rigidity. EXTREMITIES: 1+ pedal edema with slight arthritis slight discoloration from the knee down. NEUROLOGICAL: Patient is awake alert and oriented to person and place. ASSESSMENT AND PLAN 1. Sepsis: Most likely from osteomyelitis and endocarditis related to noncompliance to his vancomycin via dialysis: Patient will be hospitalized continue dialysis continue vancomycin, consult with infectious disease appreciated. Blood cultures are to be drawn daily. 2. worsening uremia: Secondary to end-stage renal disease with missing dialysis more often. Consult with nephrology appreciated. Continue dialysis treatments per nephrology. 3. 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 Patient and family don't want her be transferred to [place] or [facility] no intervention is can be done at this point. 4. Metabolic encephalopathy secondary to uremia, fluid overload, will try to treat underlying disease 5. Shortness of breath secondary to fluid overload from missed dialysis treatment will consult with nephrology for the urgent need for hemodialysis. 6. End-stage renal disease on hemodialysis. Consult with nephrology appreciated. Continue PhosLo 667 mg 3 times daily, Aranesp 40 g subcu every 7 days, hemodialysis. Patient had missed dialysis recently because of hypertension and a change mental status. 7. Degenerative disc disease and spinal stenosis. Continue gabapentin 300 mg at bedtime. Continue baclofen 5 mg every 8 hours as needed. Patient also had osteomyelitis of the cervical spine with continue IV antibiotics. 8. History of coronary artery disease with previous PTCA to LAD and circumflex. Continue aspirin 81 mg daily, atorvastatin 40 mg at bedtime, Lopressor 25 mg twice daily. He is hardly taking his medication at this point. 9. Paroxysmal atrial fibrillation. Continue eliquis 2.5 mg twice daily, Lopressor, amiodarone 200 mg daily pulse rates under control at this point. 10. Ischemic cardiomyopathy. Continue Lopressor, Lasix 80 mg twice daily, met olazone 5 mg daily. Still removing more fluid with hemodialysis. Patient will require hemodialysis for better management of his ischemic cardiopathy. 11. Diabetes mellitus type 2, insulin requiring. Continue Levemir 5 units at bedtime, add NovoLog scale before meals and at bedtime, 12. Hypertension. Continue hydralazine 75 mg 3 times daily. 13. Anemia of chronic disease. Continue ferrous sulfate 325 mg twice daily. Along with Aranesp 40 g subcu every 7 days. 14. GI prophylaxis. Continue Protonix. 15. DVT prophylaxis. Was on Eliquis which will be held for now. 16. Covid 19 testing: Negative. Prognosis: Very guarded. Family will be contacted potential hospice care. CODE STATUS: No code Discharge plan: Return to [facility] Impression and plan of care have been directed as dictated by the signing physician. Katelyn Wesley nurse practitioner acting as scribe for signing physician. Objective - Vital Signs Vital signs: Vital Signs Temp 98.8 F 01/09/21 08:06 Pulse 125 H 01/09/21 08:06 Resp 16 01/09/21 08:06 BP 107/68 01/09/21 08:06 Pulse Ox 100 01/09/21 08:06 Intake & Output 01/08/21 01/09/21 01/09/21 18:59 06:59 18:59 Intake Total 518 Output Total 400 Balance 118 Weight 92.5 kg Intake: Oral 118 Hemodialysis 400 Output: Urine 0 Hemodialysis 400 Other: Voiding Method Diaper Diaper Diaper # Voids 3 # Bowel Movements 1 2 - Labs CBC & Chem 7: 01/07/21 07:53 01/07/21 07:53 Labs: Abnormal Lab Results - Last 24 Hours (Table) 01/08/21 01/08/21 01/08/21 Range/Units 07:08 07:08 16:54 ESR 30 H (0-15) mm/hr POC Glucose (mg/dL) 101 H (75-99) mg/dL C-Reactive Protein 14.5 H (<1.0) mg/dL 01/09/21 Range/Units 06:17 ESR (0-15) mm/hr POC Glucose (mg/dL) 154 H (75-99) mg/dL C-Reactive Protein (<1.0) mg/dL Microbiology - Last 24 Hours (Table) 01/08/21 07:08 Blood Culture Gram Stain - Preliminary Blood 01/08/21 07:08 Blood Culture - Final Blood
--- NOTE | 2021-01-09 16:54 | PN ---
PROGRESS NOTE The patient was seen this morning. He is lying in bed. He has been refusing medications, refusing to talk to nurses as well. The patient is due for dialysis today. He has been comfortable. Mentation seems to be improved. PHYSICAL EXAMINATION: On examination today, blood pressure 118/59, heart rate 85 per minute. He is afebrile. Examination of the heart S1, S2. Examination of the lungs, decreased breath sounds at the bases. Abdomen is soft, nontender. Examination of lower extremities shows no evidence of edema. DIRECTOR MEDICAL exam cannot be performed. Patient is not cooperating. No recent labs available. Labs on January 07 showed potassium 4.4, BUN 103. ASSESSMENT: 1. End-stage renal disease, on hemodialysis on a Wednesday, , Wednesday schedule. 2. Staph aureus bacteremia which is MRSA, maintained on vancomycin with previous history of diskitis and endocarditis. 3. Encephalopathy seems to be improved. 4. History of severe fluid overload currently improved. 5. Chronic kidney disease mineral bone disorder. PLAN: Hemodialysis today and then again on Wednesday if patient agrees. Continue antibiotics as per ID. Overall prognosis is poor. MMODL / IJN: [id number] /
[2021-01-09] MEDS: ASPIRIN 81 MG PO SCH (17:20)
[2021-01-09] MEDS: FERROUS SULFATE 325 MG TAB PO SCH (17:20)
[2021-01-09] MEDS: ACETAMINOPHEN TAB 325 MG TAB PO PRN (20:08)
[2021-01-09 20:48] LABS: Calcium 8.5 mg/dL (8.4-10.2); Potassium 3.3 mmol/L (3.5-5.1)
[2021-01-09 20:59] LABS: Glucose,Whole Blood 136 mg/dL (75-99)
--- NOTE | 2021-01-09 21:48 | PN ---
PROGRESS NOTE DATE OF SERVICE: 01/09/2021 REASON FOR FOLLOWUP: MRSA bacteremia, possible cervical, paraspinal . INTERVAL HISTORY: The patient is afebrile. The patient is breathing comfortably, hemodynamically stable. No vomiting, diarrhea or any other changes reported by the nursing staff. The patient himself did not report any history. PHYSICAL EXAMINATION: Blood pressure is 100/58, pulse of 85, temperature 98.5. He is 95% on room air. General description is a middle-aged male lying in bed in no distress. Respiratory system: Unlabored breathing, decreased intensity of breath sounds. No wheeze. Heart S1, S2. Regular rate and rhythm. Abdomen soft, no tenderness. LABS: Blood culture from yesterday still positive. DIAGNOSTIC IMPRESSION AND PLAN: Patient with MRSA bacteremia concerning for a possible cervical paraspinal infection with abnormal CT. May benefit from an MRI with contrast or transfer to tertiary care. Continue the vancomycin. Daily blood culture to document clearance of bacteremia. Continue supportive care. MMODL / IJN: [id number] /
[2021-01-09] MEDS: INSULIN DETEMIR (LEVEMIR) 100 UNIT/ML SYR SQ SCH (22:41)
[2021-01-09] MEDS: ATORVASTATIN 40 MG TAB PO SCH (22:42)
[2021-01-10] MEDS: BUTALB/APAP/CAFF 50-325-40MG TAB PO PRN (01:07)
[2021-01-10] MEDS: CALCIUM ACETATE 667 MG TAB PO SCH (06:19)
[2021-01-10] MEDS: hydrALAZINE HCL 25 MG TAB PO SCH (06:19)
[2021-01-10 06:44] LABS: Glucose,Whole Blood 149 mg/dL (75-99)
[2021-01-10 08:00] LABS: HGB 12.4 gm/dL (13.0-17.5); MCH 31.8 pg (25.0-35.0); MCHC 32.8 g/dL (31.0-37.0); MCV 97.1 fL (80.0-100.0); Mean Platelet Volume 8.5; Platelet Count 170 k/uL (150-450); RBC 3.91 m/uL (4.30-5.90); RDW 15.6 % (11.5-15.5); WBC 9.5 k/uL (3.8-10.6)
[2021-01-10 08:28] LABS: Albumin 2.9 g/dL (3.5-5.0); Calcium 8.6 mg/dL (8.4-10.2); Potassium 3.6 mmol/L (3.5-5.1); Total Bilirubin 0.4 mg/dL (0.2-1.3); Total Protein 5.8 g/dL (6.3-8.2)
[2021-01-10] MEDS ORDERED: SODIUM CHLORIDE 0.9% 250 ML IV SCH (09:45)
[2021-01-10 11:28] VITALS: BP 102/78; PULSE 142; RESP 16; TEMP 99.4
[2021-01-10 11:54] LABS: Glucose,Whole Blood 141 mg/dL (75-99)
--- NOTE | 2021-01-10 11:58 | PN ---
PROGRESS NOTE The patient is seen for followup for end-stage renal disease. He is currently lying in bed. He is comfortable. Patient is maintained on a Wednesday, , Wednesday schedule for dialysis and he was admitted to the hospital with a fever and blood cultures are growing MRSA. The patient has a previous history of diskitis and endocarditis with persistent bacteremia. He has been refusing most of the care including dialysis at times. He has refused transfer out to other facilities as well. Hospice care has been discussed with the patient and his family due to poor quality of life and repeated admissions over the last few months. The patient had been significantly volume overloaded. However, currently his volume status is much improved. He does not have any lower extremity edema and the patient was dialyzed yesterday with no ultrafiltration. Blood pressure has been on the lower side. This morning, patient had an episode of atrial fibrillation with RVR. He is known to have atrial fibrillation, but his heart rate was up in the 160s. I will give him a fluid bolus. No complaints of chest pains or shortness of breath. PHYSICAL EXAMINATION: Blood pressure this morning 100/70, heart rate 150 per minute. Patient is afebrile. Examination of the heart S1, S2. Examination of the lungs, bilateral breath sounds are heard. Examination of lower extremities shows no evidence of edema. 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 No focal motor deficit noted. LAB: Show sodium 135, potassium 3.6, BUN 45, creatinine 3.69, hemoglobin 12.4 g/dL. ASSESSMENT: 1. End-stage renal disease, on hemodialysis on a Wednesday, , Wednesday schedule. 2. MRSA bacteremia with previous history of endocarditis and diskitis, maintained on antibiotics. The patient has been refusing care including antibiotics occasionally. He has also refused dialysis at times and hospice care is being discussed with him and his family. 3. CKD mineral bone disorder. 4. History of noncompliance previously. 5. History of volume overload and noncompliance with fluid restriction. Currently not volume overloaded. 6. Chronic atrial fibrillation with RVR. 7. Hypotension with hypovolemia. Will give a 250 mL normal saline bolus x1. PLAN: Hemodialysis in a.m. Patient hopefully will agree for his treatment. Continue antibiotics for now. MMODL / IJN: [id number] /
--- NOTE | 2021-01-10 15:40 | P.PN ---
Subjective Progress Note Date: 01/10/21 60-year-old male one of Dr. Quintero patient who care for at [facility] for long time he was send for [facility] today with significant shortness of breath and altered mental status. Patient had refused to go to hemodialysis for the last few days he become quite bed fluid overload more confused and sleepy and drowsy. Start running fever and chills. Patient was tested at [facility] for COVID-19 and influenza both were negative. 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 Also patient was not a candidate for surgical intervention for valve placement with his endocarditis so the decision was to keep him on antibiotic suppressive via dialysis at this point. Patient has not been doing well lately he has been refusing dialysis refusing medical care indication on such, long discussion with him about idea of palliative care and hospice had failed. His was on board and agreeable to do hospice care initially but when patient is feeling slightly but better he usually change the status to completely full code. With him refusing dialysis 8 left choices are limited at this point his will be contacted patient is not able to make decision at this point with see if talking to the about doing palliative care or hospice care would be appropriate at this point specially with patient is not going for any major intervention or surgery and he is refusing to be on IV antibiotics. We'll consult infectious disease and nephrology and will resume dialysis at this point and continue IV antibiotic through dialysis. Patient was seen in the emergency department was not feeling well his blood pressure was quite bit low patient was mildly tachycardic his troponin was mildly elevated white blood cell was 13.4 blood culture was done cervical spine CT was done showed widening of the articulation of the C1-C2 which suggestive of some instability also had an abnormality at the skull base are new compared to the last one from 04/10/2020 which most likely and osteomyelitis. Chest x-ray shows cardiomegaly and quite but congestion consistent with CHF and possible pneumonitis. 01/07: Discussed CODE STATUS with the patient's and patient will be made no code. She is not ready for hospice care at this point will be discussed then later time. Patient is currently undergoing hemodialysis and blood pressure is 90/44. He has been afebrile, heart rate in the 1 teens 122, pulse ox 90% on 2 L nasal cannula. Repeat blood work reveals WBC 9.8, hemoglobin 13.5, platelet count 143. Chloride 95. BUN 103 creatinine 8.26. Blood sugars are running between 127 and 176. Blood culture positive for Staphylococcus aureus. Patient is on vancomycin. Consult for Dr. Ardon. Patient is followed by Dr. Nguyen. 01/08: Patient is seen today in follow-up, he is undergoing hemodialysis. He is more alert today and closer to baseline. He does not recall anything about coming into the hospital. Patient has been in and out of atrial fibrillation and most likely hemodialysis will need to be cut short today. He has been seen by Dr. Ardon and is ordered daily blood cultures and recommended possible MRI versus transfer the patient. Patient does state that he is feeling all better today. He is currently on IV vancomycin dosed by pharmacy. Patient has been afebrile. Blood pressure 135/81. Sed rate 30. Blood sugars running between 96 and 142. C-reactive protein 14.5. Vancomycin level XXII.7. 01/09: Patient is awake with eyes closed, he is slow to respond and answer questions. He does agree that we can contact his and discuss prognosis and plan. Patient has not 8 and for the past 2 days. He is refusing his medications. Patient is refusing to undergo MRI. Patient is afebrile, heart rate 125, blood pressure 107/68, pulse ox 100% on 2 L nasal cannula. Blood sugars are running between 97 and 154. Repeat blood cultures from 01/08 are positive. Plan to contact patient's later today. 01/10: Patient continues to do very poorly and is declining. He has refused all medications for several days, no oral intake. Patient's did ask for a meeting with hospice but did not want to open the patient until Wednesday when the patient's son could come from [place]. Dr. Christian spoke with the patient's in detail the patient may not last until Wednesday and needs to be made comfort care immediately for his best interest. She was agreeable to open to GIP. REVIEW OF SYSTEMS Unable to obtain due to mental status PHYSICAL EXAMINATION Gen: This is a 60-year-old male patient resting in bed and appears to be in no acute distress. HEENT: Head is atraumatic, normocephalic. Sclerae is anicteric. NECK: Supple. No JVD. No lymphadenopathy. No thyromegaly. LUNGS: Decreased expansion bilaterally with fine rhonchi positive mild crackles basis has not spread wheezes. HEART: Regular rate and rhythm. 2/6 systolic murmur with significant tachycardia with heart rate running in the 160s ABDOMEN: Soft positive bowel sounds slight distention with no rebound or rigidity. EXTREMITIES: 1+ pedal edema with slight arthritis slight discoloration from the knee down. NEUROLOGICAL: Minimal responsive. ASSESSMENT AND PLAN 1. Sepsis: Most likely from osteomyelitis and endocarditis related to noncompliance to his vancomycin via dialysis. 2. worsening uremia: Secondary to end-stage renal disease with missing dialysis more often. 3. 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 4. Metabolic encephalopathy secondary to uremia, fluid overload 5. Shortness of breath secondary to fluid overload from missed dialysis treatment. 6. End-stage renal disease on hemodialysis. 7. Degenerative disc disease and spinal stenosis. 8. History of coronary artery disease with previous PTCA to LAD and circumflex. 9. Paroxysmal atrial fibrillation. 10. Ischemic cardiomyopathy. 11. Diabetes mellitus type 2, insulin requiring. 12. Hypertension. 13. Anemia of chronic disease. 14. Covid 19 testing: Negative. All aggressive treatment will be terminated and patient will be hospice [facility]. Please see new account. CODE STATUS: No code Impression and plan of care have been directed as dictated by the signing physician. Katelyn Wesley nurse practitioner acting as scribe for signing physician. Objective - Vital Signs Vital signs: Vital Signs Temp 99.4 F 01/10/21 08:00 Pulse 142 H 01/10/21 08:00 Resp 16 01/10/21 08:00 BP 102/78 01/10/21 08:00 Pulse Ox 99 01/10/21 08:00 Intake & Output 01/09/21 01/10/21 01/10/21 18:59 06:59 18:59 Intake Total 300 Output Total 300 Balance 0 Weight 93 kg Intake: Hemodialysis 300 Output: Hemodialysis 300 Other: Voiding Method Diaper Diaper Diaper # Voids 1 # Bowel Movements 1 2 - Labs CBC & Chem 7: 01/10/21 07:22 01/10/21 07:22 Labs: Abnormal Lab Results - Last 24 Hours (Table) 01/09/21 01/09/21 01/10/21 Range/Units 20:14 20:47 06:35 RBC (4.30-5.90) m/uL Hgb (13.0-17.5) gm/dL Hct (39.0-53.0) % RDW (11.5-15.5) % Sodium 133 L (137-145) mmol/L Potassium 3.3 L (3.5-5.1) mmol/L Carbon Dioxide 20 L (22-30) mmol/L BUN 36 H (9-20) mg/dL Creatinine 2.92 H (0.66-1.25) mg/dL Glucose 116 H (74-99) mg/dL POC Glucose (mg/dL) 136 H 149 H (75-99) mg/dL Alkaline Phosphatase (38-126) U/L Total Protein (6.3-8.2) g/dL Albumin (3.5-5.0) g/dL 01/10/21 01/10/21 01/10/21 Range/Units 07:22 07:22 11:49 RBC 3.91 L (4.30-5.90) m/uL Hgb 12.4 L (13.0-17.5) gm/dL Hct 38.0 L (39.0-53.0) % RDW 15.6 H (11.5-15.5) % Sodium 135 L (137-145) mmol/L Potassium (3.5-5.1) mmol/L Carbon Dioxide (22-30) mmol/L BUN 45 H (9-20) mg/dL Creatinine 3.69 H (0.66-1.25) mg/dL Glucose 166 H (74-99) mg/dL POC Glucose (mg/dL) 141 H (75-99) mg/dL Alkaline Phosphatase 193 H (38-126) U/L Total Protein 5.8 L (6.3-8.2) g/dL Albumin 2.9 L (3.5-5.0) g/dL Microbiology - Last 24 Hours (Table) 01/08/21 07:08 Blood Culture Gram Stain - Preliminary Blood Blood Culture - Preliminary Presumptive MRSA 01/06/21 11:40 Blood Culture Gram Stain - Final Blood Blood Culture - Final Methicillin resist S. aureus 01/06/21 11:30 Blood Culture Gram Stain - Final Blood Blood Culture - Final Methicillin resist S. aureus
[2021-01-11] MEDS ORDERED: ERGOCALCIFEROL 1,250 MCG (50,000 IU) CAPSULE PO SCH (09:00)
== END 2021-01-10 13:29 | disposition hospice, inpatient (51) | DRG 871 ==
LOC: EC 10:57 → 3SCARD 14:44
PROVIDERS: ADMIT Internal Medicine Geriatric Medicine; ATTEND Internal Medicine Geriatric Medicine
DX: A41.02 Sepsis due to Methicillin resistant Staphylococcus aureus (principal); G93.41 Metabolic encephalopathy; I33.0 Acute and subacute infective endocarditis; N18.6 End stage renal disease; I13.2 Hypertensive heart and chronic kidney disease with heart failure and with stage 5 chronic kidney disease, or end stage renal disease; I48.20 Chronic atrial fibrillation, unspecified; M46.22 Osteomyelitis of vertebra, cervical region; D63.8 Anemia in other chronic diseases classified elsewhere; E11.22 Type 2 diabetes mellitus with diabetic chronic kidney disease; E11.319 Type 2 diabetes mellitus with unspecified diabetic retinopathy without macular edema; E11.40 Type 2 diabetes mellitus with diabetic neuropathy, unspecified; E11.69 Type 2 diabetes mellitus with other specified complication; E78.5 Hyperlipidemia, unspecified; E86.1 Hypovolemia; F32.A Depression, unspecified; F41.9 Anxiety disorder, unspecified; G25.81 Restless legs syndrome; H54.8 Legal blindness, as defined in USA; H91.90 Unspecified hearing loss, unspecified ear; I25.10 Atherosclerotic heart disease of native coronary artery without angina pectoris; Z20.822 Contact with and (suspected) exposure to COVID-19; Z51.5 Encounter for palliative care; I25.2 Old myocardial infarction; I25.5 Ischemic cardiomyopathy; I50.9 Heart failure, unspecified; I48.0 Paroxysmal atrial fibrillation; M46.40 Discitis, unspecified, site unspecified; M48.00 Spinal stenosis, site unspecified; M89.9 Disorder of bone, unspecified; Z79.01 Long term (current) use of anticoagulants; Z79.4 Long term (current) use of insulin; Z79.82 Long term (current) use of aspirin; Z79.899 Other long term (current) drug therapy; Z80.8 Family history of malignant neoplasm of other organs or systems; Z82.49 Family history of ischemic heart disease and other diseases of the circulatory system; Z83.3 Family history of diabetes mellitus; Z86.14 Personal history of Methicillin resistant Staphylococcus aureus infection; Z87.891 Personal history of nicotine dependence; Z91.11 Patient's noncompliance with dietary regimen; Z95.5 Presence of coronary angioplasty implant and graft; Z91.15 Patient's noncompliance with renal dialysis; Z91.19 Patient's noncompliance with other medical treatment and regimen; Z99.2 Dependence on renal dialysis
CPT/HCPCS: 36415; 70450; 71046; 72125; 80048; 80053; 80202; 83605; 83735; 84100; 84484; 85025; 85027; 85610; 85652; 85730; 86140; 87040; 87077; 87186; 87635; 90935; 93005; 94760; 96365; 96366; 99285

== ENCOUNTER 2021-01-10 12:38 | Inpatient (IN) | payer MEDICAID ==
[2021-01-10] MEDS ORDERED: ACETAMINOPHEN SUPPOSITORY 650 MG SUPP RECTAL PRN (12:50)
[2021-01-10] MEDS ORDERED: LORazepam 2 MG/ML INJ IV PRN (12:50)
[2021-01-10] MEDS ORDERED: MORPHINE SULFATE 2 MG/ML SYRINGE IV PRN (12:50)
[2021-01-10] MEDS ORDERED: haloperidoL 1 MG TAB PO PRN (12:50)
[2021-01-10] MEDS ORDERED: GLYCOPYRROLATE 0.2 MG/ML 2 ML VIAL IVP PRN (12:50)
[2021-01-10] MEDS ORDERED: ATROPINE OPHTH SOLN 1% 5ML BTL SUBLINGUAL PRN (12:50)
[2021-01-10] MEDS ORDERED: ONDANSETRON 4 MG/2 ML VIAL IVP PRN (12:50)
[2021-01-10] MEDS ORDERED: HYOSCYAMINE ORAL DROPS 1.875 MG/15 ML BOTTLE PO PRN (12:52)
[2021-01-10] MEDS ORDERED: MORPHINE SULFATE (100 MG/2 ML) 100 MG in SODIUM CHLORIDE 0.9% 100 ML IV SCH (13:00)
[2021-01-10] MEDS ORDERED: SCOPOLAMINE 1.5MG/72HR PATCH TRANSDERM SCH (13:00)
[2021-01-10] MEDS ORDERED: HALOPERIDOL LACTATE 5 MG/ML 1 ML VIAL IM PRN (14:54)
[2021-01-10 18:44] VITALS: BP 95/55; PULSE 132; TEMP 98.7
[2021-01-10 22:38] VITALS: RESP 24
== END 2021-01-11 04:46 | disposition expired | DRG 951 ==
LOC: 3SCARD 13:53
PROVIDERS: ADMIT Internal Medicine Geriatric Medicine; ATTEND Internal Medicine Geriatric Medicine
DX: Z51.5 Encounter for palliative care (principal); A41.02 Sepsis due to Methicillin resistant Staphylococcus aureus; G93.41 Metabolic encephalopathy; G06.1 Intraspinal abscess and granuloma; N18.6 End stage renal disease; I33.0 Acute and subacute infective endocarditis; M86.8X8 Other osteomyelitis, other site; I13.2 Hypertensive heart and chronic kidney disease with heart failure and with stage 5 chronic kidney disease, or end stage renal disease; R00.0 Tachycardia, unspecified; E87.70 Fluid overload, unspecified; D63.1 Anemia in chronic kidney disease; E11.22 Type 2 diabetes mellitus with diabetic chronic kidney disease; I48.0 Paroxysmal atrial fibrillation; I25.10 Atherosclerotic heart disease of native coronary artery without angina pectoris; M50.30 Other cervical disc degeneration, unspecified cervical region; I25.5 Ischemic cardiomyopathy; R01.1 Cardiac murmur, unspecified; M48.02 Spinal stenosis, cervical region; M79.10 Myalgia, unspecified site; R53.83 Other fatigue; Z87.891 Personal history of nicotine dependence; Z79.4 Long term (current) use of insulin; Z79.899 Other long term (current) drug therapy; Z88.5 Allergy status to narcotic agent; Z88.2 Allergy status to sulfonamides; Z88.0 Allergy status to penicillin; Z99.2 Dependence on renal dialysis; Z95.5 Presence of coronary angioplasty implant and graft